=== PATIENT | male | born 1945 | race African-American/Black ===

== ENCOUNTER 2024-08-22 14:40 | Emergency (ER) | payer OTHER, SELFPAY ==
[2024-08-22 14:40] VITALS: BP 141/101; PULSE 93; RESP 14; O2SAT 100
--- NOTE | 2024-08-22 14:44 | XR_ITS ---
Examination: AP chest single view TECHNIQUE: AP portable supine chest single view Exam date and time: August 22, 2024 1512 hours INDICATIONS: New tracheostomy tube placement FINDINGS: Tracheostomy tube tip 8.8 cm above monica Left base pneumonia obscuring detail left hemidiaphragm Reduced inspiratory effort Moderate osteopenia IMPRESSION: Tracheostomy tube tip 8.8 cm above monica Significant left base pneumonia
--- NOTE | 2024-08-22 14:45 | EDNOTE_ITS ---
ED General RME/HPI General Chief complaint: Shortness of Breath/Dyspnea Stated complaint: DISLODGED TRACH TUBE Time Seen by Provider: 08/22/24 14:44 Arrival date/time: 08/22/24 14:40 CC: Bleeding around a trach during a trach dressing change HPI patient presents to the ER via EMS state they reported the patient had low oxygen saturations, EMS report bagging him for approximately 3 to 5 minutes before transporting the patient to the emergency room. EMS reports oxygen saturations at 95% or greater. Patient is nonverbal baseline. full code Per the automation control technician at the assisted care facility during trach care they were concerned that they pushed a clot , or plug down with change out of the trach. Related Data Home Medications ?Medication ?Instructions ?Recorded ?Confirmed ascorbic acid (vitamin C) 500 mg 500 mg feeding tube BID 01/05/22 04/20/24 tablet aspirin 81 mg chewable tablet 81 mg feeding tube QDAY 01/05/22 04/20/24 cetirizine 10 mg tablet 10 mg feeding tube QDAY 01/05/22 04/20/24 clopidogrel 75 mg tablet 75 mg feeding tube QDAY 01/05/22 04/20/24 ezetimibe 10 mg tablet 10 mg feeding tube QPM 01/05/22 04/20/24 fluticasone propionate 50 1 spray intranasal QDAY 01/05/22 04/20/24 mcg/actuation nasal spray,suspension glipizide 5 mg tablet 5 mg feeding tube QDAY 01/05/22 04/20/24 melatonin 3 mg tablet 5 mg feeding tube HS 01/05/22 04/20/24 multivitamin with minerals 15 ml feeding tube QDAY 01/05/22 04/20/24 sodium phosphates 19 gram-7 118 ml MN PRN PRN Constipation 01/05/22 04/20/24 gram/118 mL enema (Fleet Enema) lactulose 10 gram/15 mL oral 20 g PO QDAY 08/14/22 04/20/24 solution simethicone 80 mg chewable tablet 80 mg feeding tube BID 08/14/22 04/20/24 bisacodyl 10 mg rectal suppository 10 mg MN EVERYOTHERDAY PRN bowel 11/27/22 04/20/24 gabapentin 300 mg capsule 600 mg PO BID 11/27/22 04/20/24 amlodipine 5 mg tablet 10 mg feeding tube QDAY 01/16/23 04/20/24 ferrous sulfate 220 mg (44 mg 220 mg PO QDAY 01/16/23 04/20/24 iron)/5 mL oral solution furosemide 20 mg tablet 20 mg PO QDAY 01/16/23 04/20/24 insulin glargine 100 unit/mL 13 unit subcut QPM 01/16/23 04/20/24 subcutaneous cartridge ketotifen fumarate 0.025 % (0.035 1 drp ophthalmic (eye) BID 01/16/23 04/20/24 %) eye drops sennosides 8.8 mg/5 mL oral syrup 5 ml PO BID 01/16/23 04/20/24 (senna) sodium bicarbonate 650 mg tablet 650 mg PO QDAY 01/16/23 04/20/24 sodium zirconium cyclosilicate 5 5 g PO Q OTHER DAY 01/16/23 04/20/24 gram oral powder packet (Lokelma) Previous Rx's ?Medication ?Instructions ?Recorded meropenem 1 gram intravenous 1 g IV QDAY 2 months #25 ea 01/22/23 solution levofloxacin 750 mg tablet 750 mg feeding tube Q24H 7 days #7 08/22/24 tabs Allergies Allergy/AdvReac Type Severity Reaction Status Date / Time NYLA Inhibitors AdvReac Severe Upper Verified 04/20/24 14:37 Airway Edema ARB-Angiotensin Receptor AdvReac Severe Upper Verified 04/20/24 14:37 Antagonist Airway Edema Review of Systems Review of Systems ROS Unobtainable: unobtainable due to mental status Past Medical History Past Medical History NEUROLOGIC: Positive Neurological Disorders and Cerebrovascular Accident; Negative Dementia or Seizures CARDIAC: Positive Cardiac Disorders, Hypercholesterolemia and Hypertension; Negative Congestive Heart Failure RESPIRATORY: Positive Asthma and Pneumonia; Negative Chronic Obstructive Pulmonary Disease (COPD) GENITOURINARY: Positive Genitourinary Disorders, Renal Disease, Dialysis and Benign Prostatic Hyperplasia MUSCULOSKELETAL: Positive Musculoskeletal Disorders, Arthritis and Degenerative Joint Disease ENDOCRINE: Positive Endocrine Disorders and Diabetes Mellitus Type 2; Negative Diabetes Mellitus Type 1 HEMATOLOGIC: Negative Sickle Cell Disease OTHER HISTORY: Positive Hospitalization, Falls, Blood Transfusions and MRSA; Negative Autoimmune Disease, Down Syndrome, Developmental Delay, Shingles, Blood Transfusion Reaction, Anesthesia Reactions or Clostridium Difficile Surgical History SURGICAL: Positive Abdominal Surgery, Tracheostomy, Gastrostomy and Joint Replacement Social History SMOKING STATUS: Never smoker SUBSTANCE USE: does not use and unknown ED Exam Narrative Physical exam: [General: Obese, nonverbal flaccid (flaccid) Head normocephalic HEENT: Eyes pupils are PERRLA, nose: No rhinorrhea ears: No otorrhea mouth: [place] dry membranes Neck, obese neck, no JVD Chest equal chest rise Respiratory: Clear to auscultation, trach site has a small amount of oozing around the trach stoma, clean dry and intact no surrounding erythema exudate or mucous plug. CV: Rate rhythm is regular no murmurs rubs or clicks Abdomen is distended secondary to body habitus Skin: Intact no petechiae rash induration ulceration or crepitus Extremities: Flaccid decondition with contractures in the feet and hands. Neuro: Awake, nonresponsive baseline Course Course Course Narrative: Once patient was placed on the ventilator at 1520, peak airway pressures were noted to be in the low 20s. Chest x-ray shows trach in place no pneumonic process. After deep suctioning RT reports that the patient had a large plug that was removed peak airway pressure is decreased from 24-19 20. Will draw an ABG if acceptable patient will be discharged back to care facility. Quality Measures VTE prophylaxis Orders Category Date Time Status Saline [Insert IV] NOW Care 08/22/24 15:31 Active XR chest 1V post procedure Stat Exams 08/22/24 14:44 Completed CBC Stat Lab 08/22/24 16:18 Completed CMP [Comprehensive Metabolic Panel] Stat Lab 08/22/24 16:18 Completed VBG [Venous Blood Gas] Stat Lab 08/22/24 16:18 Completed cefTRIAXone/D5w 1gm IV premix [Rocephin/D5w 1gm IV Med 08/22/24 15:31 Discontinued premix] 50 ml IV X1 Airway suctioning ONCE RT 08/22/24 15:05 Active Mechanical [Volume Ventilator] Stat RT 08/22/24 14:10 Active Vital Signs Vital signs: Vital Signs Pulse Rate 93 08/22/24 14:40 Blood Pressure 141/101 H 08/22/24 14:40 Pulse Oximetry (%) 100 08/22/24 14:40 Fraction of Inspired Oxygen 30 08/22/24 14:40 [facility] Patient data External records reviewed:: [facility] previous records and EMS form Clinical information provided by:: EMS Social determinants that could affect healthcare access:: none Patient has the following chronic illnesses:: Tracheostomy, quadriplegia How is presenting disease/condition affected by chronic disease/condition?: e xacerbated by Evaluation data The following diagnostics were reviewed and interpreted by me:: lab results and radiology exam(s) Lab and/or radiology exams considered but not ordered:: CBC shows no anemia thrombocytopenia and leukocytes are mildly elevated 11.3 CMP shows no significant electrolyte imbalances renal impairment transaminitis or T. bili elevation. Chest x-ray as interpreted by me read by radiology shows a pneumonia. Interpretation Summary: Airway pressures have decreased after the plug/clot was suctioned from the trach, chest x-ray shows a mild pneumonia patient treated and will be discharged home on antibiotics for pneumonia. Medications Medications considered but not ordered:: None Medication administrations:: Medication Administration History Discontinued Medications Ceftriaxone Sodium/Dextrose (Rocephin/D5w 1gm Iv Premix) 50 mls @ 100 mls/hr IV X1 ONE Stop: 08/22/24 16:00 Last Infusion: 08/22/24 17:01 Dose: Infused Documented By: Admin: 08/22/24 16:27 Dose: 100 mls/hr Documented By: ELIJAH None Consultations Consultation(s) initiated? (list below): No Diagnosis Differential Diagnosis ED Complaint MDM: Pneumonia trach plug tracheostomy failure Most likely diagnosis given after review of the tests above:: Tracheostomy plug, pneumonia Admission Indicated Admission indicated?: not indicated Explain why admission is indicated or not indicated:: Stable for outpatient follow-up Admission Request Was there a request for admission?: No Disposition Plan Disposition Plan: Discharge Discharge Attestation Discharge Attestation: The patient and all family members were given an opportunity to ask questions and understood the discharge instructions. Discharge instructions specifically effects, indications for sooner follow up or return to the emergency department, and the expected course of current diagnosis. Patient condition: Stable Medical Decision Making Differential Diagnosis Differential Diagnosis: Pneumonia trach plug tracheostomy failure Lab Data 08/22/24 16:18 08/22/24 16:18 Labs: Lab Results 08/22/24 Range/Units 16:18 WBC 11.6 H (3.8-10.6) Thou/mm3 RBC 4.70 (4.50-5.90) Miln/mm3 Hgb 11.0 L (13.5-16.0) g/dL Hct 34.5 L (41.0-53.0) % MCV 73 L (80-100) fL MCH 23.4 L (25.0-35.0) pg MCHC 31.9 (31.0-37.0) g/dl RDW Std Deviation 53.8 H (35.1-43.9) fL Plt Count 367 (140-440) Thou/mm3 Neut % (Auto) 69 (37-80) % Lymph % (Auto) 16 (10-50) % Franklin % (Auto) 8 (0-12) % Eos % (Auto) 6 (0-10) % Baso % (Auto) 0 (0-2.5) % Neut # (Auto) 8.0 H (1.8-7.7) Thou/mm3 Lymph # (Auto) 1.9 (1.0-4.8) Thou/mm3 Franklin # (Auto) 1.0 H (0.0-0.8) Thou/mm3 Eos # (Auto) 0.7 H (0.0-0.5) Thou/mm3 Baso # (Auto) 0.1 (0.0-0.2) Thou/mm3 Immature Gran # (Auto) 0.03 H (0.00-0.00) Thou/mm3 Absolute Nucleated RBC 0.00 (0.00-0.00) Thou/mm3 Immature Gran % 0 (0-0) % Nucleated RBC % 0 (0) /100 WBC VBG pH 7.47 (7.33-7.66) VBG pCO2 27 L (36-56) mmHg VBG pO2 47 (15-58) mmHg VBG O2 Sat (Cameron) 86 L (96-97) % VBG Base Excess -3 (-3-3) Sodium 132 L (136-145) mMol/L Potassium 4.2 (3.4-5.1) mMol/L Chloride 102 (98-107) mMol/L Carbon Dioxide 23.0 (20.0-31.0) mMol/L Anion Gap 7 (7-16) BUN 19 (9-23) mg/dL Creatinine 0.8 (0.6-1.3) mg/dL Estim Creat Clear Calc 106.0 (>60) mL/min eGFR > 60 (60 - ) See Note BUN/Creatinine Ratio 24 H (12-20) Ratio Glucose 184 H (74-106) mg/dL Calculated Osmolality 271 L (275-295) Calcium 10.1 (8.3-10.6) mg/dL Corrected Calcium 10.1 (8.5-10.1) mg/dL Total Bilirubin 0.4 (0.3-1.2) mg/dL AST 18 (0-34) U/L ALT 14 (10-49) U/L Alkaline Phosphatase 152 H (46-116) U/L Total Protein 9.1 H (5.7-8.2) gm/dL Albumin 4.3 (3.4-4.8) gm/dL Globulin 4.8 H (2.3-3.5) gm/dL Albumin/Globulin Ratio 0.9 L (1.2-2.2) Discharge Plan Plan Patient Disposition: HOME (Self Care) Patient condition on transfer: Stable Prescriptions/Referrals Prescriptions/Med Rec: New levofloxacin 750 mg tablet 750 mg feeding tube Q24H 7 Days Qty: 7 0RF No Action cetirizine 10 mg Tablet 10 mg feeding tube QDAY multivitamin with minerals Liquid 15 ml feeding tube QDAY melatonin 3 mg Tablet 5 mg feeding tube HS clopidogrel 75 mg Tablet 75 mg feeding tube QDAY ascorbic acid (vitamin C) 500 mg Tablet 500 mg feeding tube BID Fleet Enema 19-7 gram/118 mL Enema 118 ml MN PRN PRN (Reason: Constipation) aspirin 81 mg Tablet,Chewable 81 mg feeding tube QDAY fluticasone propionate 50 mcg/actuation [place],Suspension 1 spray INTRANASAL QDAY glipizide 5 mg Tablet 5 mg feeding tube QDAY ezetimibe 10 mg Tablet 10 mg feeding tube QPM simethicone 80 mg Tablet,Chewable 80 mg feeding tube BID lactulose 10 gram/15 mL Solution 20 g PO QDAY bisacodyl 10 mg Suppository 10 mg MN EVERYOTHERDAY PRN (Reason: bowel ) gabapentin 300 mg Capsule 600 mg PO BID amlodipine 5 mg Tablet 10 mg feeding tube QDAY furosemide 20 mg Tablet 20 mg PO QDAY ferrous sulfate 220 mg (44 mg iron)/5 mL Solution 220 mg PO QDAY ketotifen fumarate 0.025 % (0.035 %) Drops 1 drp OPHTHALMIC (EYE) BID Rx Instructions: administer at least 8 hours apart sennosides [senna] 8.8 mg/5 mL Syrup 5 ml PO BID sodium bicarbonate 650 mg Tablet 650 mg PO QDAY insulin glargine 100 unit/mL Cartridge 13 unit SUBCUT QPM Lokelma 5 gram Powder In Packet 5 g PO Q OTHER DAY meropenem 1 gram recon soln 1 g IV QDAY MDD 1 gram 60 Days Qty: 25 2RF Referrals: Alexa Heredia MD [Primary Care Provider] - In 1 week Problem List Clinical Impression: Pneumonia, Tracheostomy care Patient/Caregiver Discharge Instructions Education Materials: ED Pneumonia (Adult) Print Language: Belarusian Stand Alone Forms: Maria Isabel Award Info., Patient Portal Info Letter PA/RADIO REPAIRER DOMESTIC Supervising Physician PA/RADIO REPAIRER DOMESTIC Supervising Physician: Cornelio Ruff ENP
[2024-08-22 14:54] VITALS: BP 146/94; PULSE 82; O2SAT 99
[2024-08-22 15:06] VITALS: BMI 31.8
--- NOTE | 2024-08-22 15:06 | PC.NURSE ---
Pt connected to mechanical ventilator via pt's tracheostomy tube upon arrival by RT.
[2024-08-22 16:19] VITALS: BP 151/95; PULSE 90; RESP 22; TEMP 36.7; O2SAT 100
--- NOTE | 2024-08-22 16:25 | PC.NURSE ---
per Cornelio ADJUNCT PSYCHOLOGY INSTRUCTOR, no blood cultures needed, ok to give rocephin ivpb.
[2024-08-22] MEDS: cefTRIAXone/D5w 1gm IV premix 50 ML IV (16:27)
[2024-08-22 16:28] LABS: Base Excess, Venous -3 (-3-3); O2 Saturation, Venous 86 % (96-97); PCO2, Venous 27 mmHg (36-56); PO2, Venous 47 mmHg (15-58); pH, Venous 7.47 (7.33-7.66)
[2024-08-22 16:31] LABS: Basophils # (Auto) 0.1 Thou/mm3 (0.0-0.2); Basophils % (Auto) 0 % (0-2.5); Eosinophils # (Auto) 0.7 Thou/mm3 (0.0-0.5); Eosinophils % (Auto) 6 % (0-10); Hematocrit 34.5 % (41.0-53.0); Immature Granulocytes % (Auto) 0 % (0-0); Immature Granulocytes Auto 0.03 Thou/mm3 (0.00-0.00); Lymphocytes # (Auto) 1.9 Thou/mm3 (1.0-4.8); Lymphocytes % (Auto) 16 % (10-50); Mean Corpuscular HGB Conc 31.9 g/dl (31.0-37.0); Mean Corpuscular Hemoglobin 23.4 pg (25.0-35.0); Mean Corpuscular Volume 73 fL (80-100); Monocytes % (Auto) 8 % (0-12); Neutrophils % (Auto) 69 % (37-80); Nucleated Red Blood Cell % 0 /100 WBC (0); Platelet Count 367 Thou/mm3 (140-440); RDW Standard Deviation 53.8 fL (35.1-43.9); White Blood Count 11.6 Thou/mm3 (3.8-10.6)
[2024-08-22 16:56] LABS: Alanine Aminotransferase 14 U/L (10-49); Albumin, Serum 4.3 gm/dL (3.4-4.8); Albumin/Globulin Ratio 0.9 (1.2-2.2); Alkaline Phosphatase 152 U/L (46-116); Anion Gap 7 (7-16); Aspartate Amino Transferase 18 U/L (0-34); BUN/Creatinine Ratio 24 Ratio (12-20); Bilirubin,Total 0.4 mg/dL (0.3-1.2); Blood Urea Nitrogen 19 mg/dL (9-23); Calcium 10.1 mg/dL (8.3-10.6); Calcium (Corrected) 10.1 mg/dL (8.5-10.1); Chloride 102 mMol/L (98-107); Creatinine (Component) 0.8 mg/dL (0.6-1.3); Globulin 4.8 gm/dL (2.3-3.5); Glucose 184 mg/dL (74-106); Osmolality,Calculated 271 (275-295); Potassium 4.2 mMol/L (3.4-5.1); Sodium 132 mMol/L (136-145); Total Protein 9.1 gm/dL (5.7-8.2); eGFR > 60 See Note
[2024-08-22 17:00] VITALS: BP 155/97; PULSE 90; RESP 17; O2SAT 100
[2024-08-22 18:00] VITALS: BP 138/83; PULSE 90; RESP 20; O2SAT 100
[2024-08-22 18:12] VITALS: BP 136/83; PULSE 93; RESP 17; O2SAT 100
--- NOTE | 2024-08-22 18:13 | PC.RT ---
rollins, at bedside, is asking for discharge papers to include more frequent sxn' due to pt having mucus plus. and is asking for a copy of all discharge paperwork
--- NOTE | 2024-08-22 18:14 | PC.CC ---
AEROSPACE ASSEMBLER CC engaged to arrange transport for pt back to [facility]. PCS and face sheet uploaded to [facility]. [id number] to Dispatch, transport ETA set for 2099.
== END 2024-08-22 19:16 | disposition home or self-care (01) ==
PROVIDERS: Registered Nurse General Practice; Emergency Provider Emergency Medicine; PCP Hospitalist; Referring Provider Emergency Medicine
DX: J95.03 Malfunction of tracheostomy stoma (principal); J18.9 Pneumonia, unspecified organism
CPT/HCPCS: 36415; 36600; 80053; 82803; 85025; 94002; 96365; 99284; J0696

== ENCOUNTER → 2025-02-22 | Outpatient (CLI) | payer MEDICAID, SELFPAY | END | disposition home or self-care (01) | PROVIDERS: PCP Hospitalist; Referring Provider Hospitalist; Visit Provider Hospitalist | DX: Z01.89 Encounter for other specified special examinations (principal) ==

== ENCOUNTER → 2025-02-22 | Outpatient (CLI) | payer MEDICAID, SELFPAY ==
[2025-02-22 18:53] LABS: Collection Type, Urine Voided; Squamous Epithelial Cell,Urine 0 /hpf (0-5)
[2025-02-22 19:05] LABS: Basophils % (Auto) 0 % (0-2.5); Eosinophils # (Auto) 0.6 Thou/mm3 (0.0-0.5); Eosinophils % (Auto) 6 % (0-10); Hematocrit 31.6 % (41.0-53.0); Hemoglobin 10.2 g/dL (13.5-16.0); Immature Granulocytes % (Auto) 0 % (0-0); Immature Granulocytes Auto 0.03 Thou/mm3 (0.00-0.00); Lymphocytes % (Auto) 22 % (10-50); Mean Corpuscular HGB Conc 32.3 g/dl (31.0-37.0); Mean Corpuscular Hemoglobin 23.7 pg (25.0-35.0); Mean Corpuscular Volume 74 fL (80-100); Monocytes # (Auto) 0.9 Thou/mm3 (0.0-0.8); Monocytes % (Auto) 9 % (0-12); Neutrophils # (Auto) 5.6 Thou/mm3 (1.8-7.7); Neutrophils % (Auto) 62 % (37-80); Nucleated Red Blood Cell % 0 /100 WBC (0); Platelet Count 332 Thou/mm3 (140-440); RDW Standard Deviation 47.9 fL (35.1-43.9)
[2025-02-22 19:12] LABS: Bacteria,Urine 3+; Bilirubin,Urine Negative (Negative); Blood,Urine 3+ (Negative); Color,Urine Yellow (Lt Yel-Yel); Glucose, Urine Negative (Negative); Hyaline Casts,Urine 1 /hpf (0-1); Ketones,Urine Negative (Negative); Leukocyte Esterase,Urine Positive (Negative); Nitrite,Urine Negative (Negative); PH,Urine 5.5 (5.0-7.0); Protein,Urine 1+ (Neg - Trace); RBC,Urine 510 /hpf (0-3); Specific Gravity,Urine 1.017 (1.001-1.035); Urobilinogen,Urine Negative mg/dL (0.0-1.0); WBC,Urine 1093 /hpf (0-5)
[2025-02-22 19:15] LABS: Clarity,Urine Turbid (Clear/Hazy); Culture Indicated,Urine Yes
[2025-02-22 19:18] LABS: Alanine Aminotransferase 18 U/L (10-49); Albumin, Serum 3.5 gm/dL (3.4-4.8); Albumin/Globulin Ratio 0.9 (1.2-2.2); Alkaline Phosphatase 139 U/L (46-116); Anion Gap 10 (7-16); Aspartate Amino Transferase 36 U/L (0-34); BUN/Creatinine Ratio 36 Ratio (12-20); Bilirubin,Total 0.3 mg/dL (0.3-1.2); Blood Urea Nitrogen 25 mg/dL (9-23); Calcium 8.9 mg/dL (8.3-10.6); Calcium (Corrected) 9.3 mg/dL (8.5-10.1); Carbon Dioxide 22.8 mMol/L (20.0-31.0); Chloride 102 mMol/L (98-107); Creatinine (Component) 0.7 mg/dL (0.6-1.3); Globulin 3.7 gm/dL (2.3-3.5); Glucose 178 mg/dL (74-106); Osmolality,Calculated 278 (275-295); Potassium 4.6 mMol/L (3.4-5.1); Sodium 135 mMol/L (136-145); Total Protein 7.2 gm/dL (5.7-8.2); eGFR > 60 See Note
== END | disposition home or self-care (01) ==
PROVIDERS: PCP Hospitalist; Referring Provider Hospitalist; Visit Provider Hospitalist
DX: N40.0 Benign prostatic hyperplasia without lower urinary tract symptoms (principal); E08.40 Diabetes mellitus due to underlying condition with diabetic neuropathy, unspecified; Z99.11 Dependence on respirator [ventilator] status
CPT/HCPCS: 36415; 80053; 81001; 85025; 87070; 87077; 87086; 87186; 87205

== ENCOUNTER 2025-04-26 20:54 | Inpatient (IN) | payer OTHER, SELFPAY ==
[2025-04-26] VITALS (8 sets, daily range): BP systolic 114–128; BP diastolic 55–75; PULSE 120–123; RESP 21–38; TEMP 38.3; O2SAT 93–100; BMI 40.1
--- NOTE | 2025-04-26 21:15 | PC.NURSE ---
PT JACQUIE FROM [facility]. ON ARRIVAL PT WAS TRACHED AND HAS A PEG TUBE. PER REPORT PT IS HERE FOR SEPSIS RULE OUT . PT HAD A TEMP OF 103 04/25/2025 AND A TEMP OF 100 04/26/2025. PER REPORT PT IS NORMALLY A [employer] OF 6
--- NOTE | 2025-04-26 21:16 | PD.EDFEVER ---
ED Fever RME/HPI General Chief Complaint: Fever Stated Complaint: RULE OUT SEPSIS Time Seen by Provider: 04/26/25 21:10 Arrival date/time: 04/26/25 20:54 RME / HPI RME / HPI Narrative: See MDM for Dr. Nielson's HPI Documentation. Related Data Home Medications ?Medication ?Instructions ?Recorded ?Confirmed ascorbic acid (vitamin C) 500 mg 500 mg feeding tube BID 01/05/22 04/27/25 tablet aspirin 81 mg chewable tablet 81 mg feeding tube QDAY 01/05/22 04/27/25 cetirizine 10 mg tablet 10 mg feeding tube QDAY 01/05/22 04/27/25 clopidogrel 75 mg tablet 75 mg feeding tube QDAY 01/05/22 04/27/25 ezetimibe 10 mg tablet 10 mg feeding tube QPM 01/05/22 04/27/25 fluticasone propionate 50 1 spray intranasal QDAY 01/05/22 04/27/25 mcg/actuation nasal spray,suspension glipizide 5 mg tablet 5 mg feeding tube QDAY 01/05/22 04/27/25 melatonin 3 mg tablet 5 mg feeding tube HS 01/05/22 04/27/25 multivitamin with minerals 15 ml feeding tube QDAY 01/05/22 04/27/25 sodium phosphates 19 gram-7 118 ml CO PRN PRN Constipation 01/05/22 04/27/25 gram/118 mL enema (Fleet Enema) lactulose 10 gram/15 mL oral 20 g PO QDAY 08/14/22 04/27/25 solution simethicone 80 mg chewable tablet 80 mg feeding tube BID 08/14/22 04/27/25 bisacodyl 10 mg rectal suppository 10 mg CO EVERYOTHERDAY PRN bowel 11/27/22 04/27/25 gabapentin 300 mg capsule 600 mg PO BID 11/27/22 04/27/25 amlodipine 5 mg tablet 10 mg feeding tube QDAY 01/16/23 04/27/25 ferrous sulfate 220 mg (44 mg 220 mg PO QDAY 01/16/23 04/27/25 iron)/5 mL oral solution furosemide 20 mg tablet 20 mg PO QDAY 01/16/23 04/27/25 insulin glargine 100 unit/mL 25 unit subcut QPM 01/16/23 04/27/25 subcutaneous cartridge ketotifen fumarate 0.025 % (0.035 1 drp ophthalmic (eye) BID 01/16/23 04/27/25 %) eye drops sennosides 8.8 mg/5 mL oral syrup 5 ml PO BID 01/16/23 04/27/25 (senna) sodium bicarbonate 650 mg tablet 650 mg PO QDAY 01/16/23 04/27/25 sodium zirconium cyclosilicate 5 5 g PO Q OTHER DAY 01/16/23 04/27/25 gram oral powder packet (Lokelma) Previous Rx's ?Medication ?Instructions ?Recorded meropenem 1 gram intravenous 1 g IV QDAY 2 months #25 ea 01/22/23 solution Allergies Allergy/AdvReac Type Severity Reaction Status Date / Time NYLA Inhibitors AdvReac Severe Upper Verified 04/20/24 14:37 Airway Edema ARB-Angiotensin Receptor AdvReac Severe Upper Verified 04/20/24 14:37 Antagonist Airway Edema Review of Systems Review of Systems Systems Reviewed: All systems reviewed, normal except as documented Past Medical History Past Medical History NEUROLOGIC: Positive Neurological Disorders and Cerebrovascular Accident CARDIAC: Positive Cardiac Disorders, Hypercholesterolemia, Edema and Hypertension RESPIRATORY: Positive Asthma and Pneumonia GENITOURINARY: Positive Genitourinary Disorders, Renal Disease, Dialysis and Benign Prostatic Hyperplasia MUSCULOSKELETAL: Positive Musculoskeletal Disorders, Arthritis and Degenerative Joint Disease ENDOCRINE: Positive Endocrine Disorders and Diabetes Mellitus Type 2 OTHER HISTORY: Positive Hospitalization, Falls, Blood Transfusions and MRSA Surgical History SURGICAL: Positive Abdominal Surgery, Tracheostomy, Gastrostomy and Joint Replacement Physical Exam Narrative Physical exam: See MDM for Dr. Nielson's Physical Exam Documentation. ED Exam Narrative Physical exam: See MDM for Dr. Nielson's Physical Exam Documentation. Course Course Course Narrative: CXR was ordered for determining the etiology of shortness of breath. Quality Measures none Orders Category Date Time Status Bedside COVID-19 Antigen Test NOW Care 04/26/25 21:15 Active Bedside Influenza A&B Antigen Test NOW Care 04/26/25 21:15 Completed COVID-19 Screening Questionnaire NOW Care 04/27/25 01:14 Active Decision to Admit X1 Care 04/27/25 01:14 Completed EKG (ED ONLY) *Do not use* NOW Care 04/26/25 21:18 Completed Abbott [Urinary Catheter] QS Care 04/26/25 21:13 Active EKG (ED Only) Stat Exams 04/26/25 21:18 Ordered XR chest 1V post procedure Stat Exams 04/26/25 21:18 Completed ABG [Arterial Blood Gas] Stat Lab 04/27/25 02:12 Completed BNP [B-Type Natriuretic Peptide] Stat Lab 04/26/25 22:30 Completed Bilirubin,Direct Stat Lab 04/26/25 22:30 Completed Blood Culture (Lab) Stat Lab 04/26/25 00:39 Results CBC Stat Lab 04/26/25 22:30 Completed CMP [Comprehensive Metabolic Panel] Stat Lab 04/26/25 22:30 Completed CRP [C-Reactive Protein] Stat Lab 04/26/25 22:30 Completed D-Dimer Stat Lab 04/26/25 22:30 Completed ESR [Sed Rate (ESR)] Stat Lab 04/26/25 22:30 Completed Lactate (Lactic Acid) Stat Lab 04/26/25 22:30 Completed Magnesium Stat Lab 04/26/25 22:30 Completed Procalcitonin Stat Lab 04/26/25 22:30 Completed Sputum Culture and Gram Stain Stat Lab 04/27/25 01:56 Results TSH [Thyroid Stimulating Hormone] Stat Lab 04/26/25 22:30 Completed Troponin I Stat Lab 04/26/25 22:30 Completed UA, C/S IF [Urinalysis, C/S if Indicated] Stat Lab 04/26/25 20:11 Completed Urine Culture Stat Lab 04/26/25 20:11 Completed c diff [Clostridium Difficile PCR] Stat Lab 04/27/25 01:21 Completed Acetaminophen Ivpb [Ofirmev Inj] Med 04/26/25 21:59 Discontinued 1,000 mg in 100 ml IV Q6HR Cefepime Inj [Maxipime Inj] 2 gm Med 04/26/25 21:15 Discontinued SODIUM CHLORIDE 0.9% (Popper) [Ns 0.9% (P)] 50 ml IV X1 Ketorolac Inj [Toradol Inj] Med 04/26/25 21:58 Discontinued 30 mg IVP X1 ONE Magnesium Sulfate 2 GM Ivpb [Magnesium Sulfate Ivpb] Med 04/27/25 00:36 Discontinued 2 gm in 50 ml IV X1 Sodium Chloride 0.9% 1000 ml [Ns] 1,000 ml Med 04/27/25 00:10 Discontinued IV 100 mls/hr Sodium Chloride 0.9% 1000 ml [Ns] 1,000 ml Med 04/26/25 21:15 Discontinued IV 999 mls/hr Sodium Chloride 0.9% 1000 ml [Ns] 1,000 ml Med 04/26/25 21:16 Discontinued IV 999 mls/hr Sodium Chloride 0.9% 1000 ml [Ns] 1,000 ml Med 04/26/25 21:17 Discontinued IV 999 mls/hr Sodium Chloride Rt Jolene 10% [NS Rt Jolene 10%] Med 04/27/25 01:40 Discontinued 5 ml INH X1 ONE Vancomycin Inj 2,000 mg Med 04/26/25 21:15 Discontinued Sodium Chloride 0.9% 500 ml [Ns] 500 ml IV X1 Sputum Induction PRN RT 04/27/25 01:45 Ordered Volume Ventilator Stat RT 04/26/25 21:30 Active Vital Signs Vital signs: Vital Signs Pulse Rate 123 H 04/26/25 21:01 Respiratory Rate 29 H 04/26/25 21:01 Blood Pressure 128/58 L 04/26/25 21:01 Pulse Oximetry (%) 100 04/26/25 21:01 PROCEDURES: Arterial Line Time Out Performed: Yes Size (Gauge): 20 Technique Used: guide wire technique Post-Procedure: line sutured into place and dry sterile dressing placed Patient Tolerated Procedure: well and no complications Complications: none Site: right and femoral Central Line Placement Left Femoral: Additional Comments: Left femoral central line successfully placed by resident physician, Dr. Austyn Borrego. Refer to residents procedure note for full procedure details. Fever MDM Narrative MDM Narrative:: Scribe Attestation: IMaribell, am scribing for and in the presence of Dr. Nielson. This section includes all my notes and documentations, including HPI, PE, and ED course. Rolan Nielson MD HPI: 80 y/o male with Hx of Type II DM, HTN, Renal Disease with Dialysis, CVA and Tracheostomy BIBA from [facility] by the [facility] present with fever x yesterday. Nursing facility is requesting a sepsis R/O. ROS: All negative except as documented in HPI. Physical Exam: General: In comatose state due to chronic encephalopathy. Fever noted. Eyes: EOMI. PERRL. ENT: No nasal congestion. Neck: Supple. No JVD. Heart: RRR. Sinus tachycardia noted. Lungs: No respiratory distress. Good air movement with rales. Abdomen: Soft and nontender. Legs: No clubbing, cyanosis, edema. Skin: Warm and dry. Neuro: In comatose state due to chronic encephalopathy. I reviewed EMS and custodial notes. I reviewed all diagnostic test results: My interpretation of the EKG is: Sinus tachycardia (123 bpm) with nonspecific ST-T changes. My interpretation of the chest x-ray is infiltrates. Blood tests remarkable for lactic acid 2.2, Na 117, Cr 1.5, LFT elevation, WBC 28.6, Hg 8.2, D-dimer 3820, CRP > 10, and Procalcitonin 2.28. ABG showed pH 7.3, pCO2 41, pHCO3 20. UA remarkable for positive leukocyte esterase, 1847 RBC, 1892 WBC. Covid/Influenza negative. At this point, diagnoses include: Sepsis, Hyponatremia, Pneumonia, UTI (urinary tract infection), Severe anemia, LFT elevation, Hyperglycemia, Elevated d-dimer Treatment here included: IVF Cefepim 2 gram IV and Vancomycin 2 gram IV Tylenol 1000 mg IV and Toradol 30 mg IV Levophed drip Arterial line placement by me (see procedure note) Central line placement by resident I discussed the case with our ICU service. About the presentation and exam and diagnostics and treatments here. And need of further care in the hospital. Will accept the patient. Rolan Nielson MD Patient data External records reviewed:: [facility] previous records (Reviewed prior ED records from 08/22/24. Patient was seen for Pneumonia.), EMS form and [facility] records Clinical information provided by:: EMS Social determinants that could affect healthcare access:: housing (SNF) Patient has the following chronic illnesses:: Hypercholesterolemia, Edema, Hypertension, Asthma, Renal Disease, Dialysis, Benign Prostatic Hyperplasia, Arthritis, Degenerative Joint Disease, Diabetes Mellitus Type 2, MRSA How is presenting disease/condition affected by chronic disease/condition?: exacerbated by Evaluation data The following diagnostics were reviewed and interpreted by me:: lab results, radiology exam(s) and EKG tracing(s) (My interpretation of the EKG is: Sinus tachycardia (123 bpm) with nonspecific ST-T changes. Rolan Nielson MD) Lab and/or radiology exams considered but not ordered:: None Interpretation Summary: tion of the chest x-ray is infiltrates. Blood tests remarkable for lactic acid 2.2, Na 117, Cr 1.5, LFT elevation, WBC 28.6, Hg 8.2, D-dimer 3820, CRP > 10, and Procalcitonin 2.28. ABG showed pH 7.3, pCO2 41, pHCO3 20. UA remarkable for positive leukocyte esterase, 1847 RBC, 1892 WBC. Covid/Influenza negative. Medications / Prescriptions Medications or Prescriptions considered but not ordered:: None Medication administrations:: Medication Administration History Acetaminophen (Acetaminophen 325 Mg Tablet) 650 mg PO Q4HR PRN PRN Reason: PAIN SCALE 1-3 (mild Stop: 05/27/25 03:10 Last Admin: 04/28/25 07:48 Dose: 650 mg Documented By: Admin: 04/27/25 18:23 Dose: 650 mg Documented By: MG Acetaminophen (Acetaminophen Supp 650 Mg Supp) 650 mg CO Q4HR PRN PRN Reason: Pain Scale 1-3 and temp >100.4 Stop: 05/27/25 03:10 Aspirin (Aspirin 81 Mg Chew) 81 mg GT QDAY [facility] Stop: 05/27/25 08:59 Last Admin: 04/28/25 09:02 Dose: 81 mg Documented By: Admin: 04/27/25 09:10 Dose: 81 mg Documented By: BERNADETTE Citric Acid/Sodium Citrate (Citric Acid/Sodium Citr 15 Ml Udc (Bicitra)) 30 ml PO BID [facility] Stop: 05/28/25 09:59 Last Admin: 04/28/25 10:05 Dose: 30 ml Documented By: BERNADETTE Dextrose (Dextrose 50%-Water Inj 50 Ml Syringe) 25 ml IV Q15MIN PRN PRN Reason: BG 50-70 responsive npo pt Stop: 05/27/25 03:36 Dextrose (Dextrose 50%-Water Inj 50 Ml Syringe) 50 ml IV Q15MIN PRN PRN Reason: BG <50 OR BG <70 & pt unresponsive Stop: 05/27/25 03:36 Glucagon (Glucagon Inj 1 Mg Vial) 1 mg IM Q15MIN PRN PRN Reason: BG <70, and no IV access Heparin Sodium (Porcine) (Heparin Sod Inj 5000 Unit/Ml Vial) 5,000 unit SC Q8HR [facility] Stop: 05/11/25 05:59 Last Admin: 04/28/25 13:51 Dose: 5,000 unit Documented By: BERNADETTE Co-signed By: Admin: 04/28/25 05:01 Dose: 5,000 unit Documented By: Co-signed By: SHANA Admin: 04/27/25 21:02 Dose: 5,000 unit Documented By: Co-signed By: SHANA Admin: 04/27/25 13:37 Dose: 5,000 unit Documented By: Co-signed By: BERNADETTE Admin: 04/27/25 12:20 Dose: Not Given Documented By: BERNADETTE Non-Admin Reason: Not In Room Vancomycin HCl (Vancomycin/Water 1gm Ivpb) 200 mls @ 120 mls/hr IV BID@1000,2200 IMANI; Protocol Stop: 05/04/25 21:59 Last Admin: 04/28/25 10:33 Dose: 120 mls/hr Documented By: Infusion: 04/27/25 22:42 Dose: Infused Documented By: Admin: 04/27/25 21:01 Dose: 120 mls/hr Documented By: Piperacillin/Tazobactam/Dextrose (Zosyn) 3.375 gm in 50 mls @ 12.5 mls/hr IV Q8HR IMANI Stop: 05/04/25 13:59 Last Admin: 04/28/25 13:50 Dose: 12.5 mls/hr Documented By: Infusion: 04/28/25 09:01 Dose: Infused Documented By: Admin: 04/28/25 05:01 Dose: 12.5 mls/hr Documented By: Infusion: 04/28/25 01:02 Dose: Infused Documented By: Admin: 04/27/25 21:02 Dose: 12.5 mls/hr Documented By: Infusion: 04/27/25 17:37 Dose: Infused Documented By: Admin: 04/27/25 13:37 Dose: 12.5 mls/hr Documented By: Norepinephrine/Dextrose (Levophed In D5w 8mg/250ml) 8 mg in 250 mls @ 11.522 mls/hr IV .[id number] PRN; Protocol PRN Reason: PER PROTOCOL Stop: 05/28/25 12:42 Last Titration: 04/28/25 18:00 Dose: 0.03 mcg/kg/min, 6.913 mls/hr Documented By: Titration: 04/28/25 17:00 Dose: 0.03 mcg/kg/min, 6.913 mls/hr Documented By: Titration: 04/28/25 16:00 Dose: 0.03 mcg/kg/min, 6.913 mls/hr Documented By: Titration: 04/28/25 15:21 Dose: 0.03 mcg/kg/min, 6.913 mls/hr Documented By: Titration: 04/28/25 15:00 Dose: 0.01 mcg/kg/min, 2.304 mls/hr Documented By: Titration: 04/28/25 14:30 Dose: 0.03 mcg/kg/min, 6.913 mls/hr Documented By: Titration: 04/28/25 14:00 Dose: 0.05 mcg/kg/min, 11.522 mls/hr Documented By: Titration: 04/28/25 13:00 Dose: 0.05 mcg/kg/min, 11.522 mls/hr Documented By: Admin: 04/28/25 12:52 Dose: 0.05 mcg/kg/min, 11.522 mls/hr Documented By: BERNADETTE Albumin Human (Albuminar-25 Ivpb) 25 gm in 100 mls @ 100 mls/hr IV BID IMANI Stop: 05/01/25 14:29 Last Admin: 04/28/25 14:52 Dose: 100 mls/hr Documented By: BERNADETTE Insulin Degludec (Insulin Degludec 5 Unit/0.05 Ml (Per 5 Units)) 13 unit SC HS IMANI Stop: 05/27/25 20:59 Last Admin: 04/27/25 20:23 Dose: 13 unit Documented By: Co-signed By: SHANA Insulin Human Lispro (Insulin Lispro (Admelog) 1 Unit/0.01 Ml Unit) 0 unit SC Q6HR IMANI; Protocol Stop: 05/27/25 05:59 Last Admin: 04/28/25 17:37 Dose: 2 unit Documented By: BERNADETTE Co-signed By: MG Admin: 04/28/25 12:26 Dose: Not Given Documented By: BERNADETTE Non-Admin Reason: Per Protocol Admin: 04/28/25 06:06 Dose: 1 unit Documented By: Co-signed By: CHRIS Admin: 04/28/25 00:05 Dose: 2 unit Documented By: Co-signed By: CHRIS Admin: 04/27/25 18:25 Dose: 2 unit Documented By: Co-signed By: KOJO Admin: 04/27/25 13:54 Dose: 3 unit Documented By: Co-signed By: brittney Admin: 04/27/25 12:20 Dose: Not Given Documented By: BERNADETTE Non-Admin Reason: Not In Room Magnesium Hydroxide (Milk Of Magnesia Susp 30 Ml Udc) 30 ml PO QDAY PRN PRN Reason: CONSTIPATION Stop: 05/27/25 03:10 Midodrine (Midodrine 5 Mg Tablet) 5 mg PO TID IMANI Stop: 05/28/25 13:59 Last Admin: 04/28/25 13:50 Dose: 5 mg Documented By: BERNADETTE Mupirocin (Mupirocin Oint 2% 15 Gm Tube) 0 gm TOP TID IMANI Stop: 05/05/25 21:59 Oxycodone/Acetaminophen (Oxycodone/Apap 5/325 Tablet) 1 tab GT Q6HR PRN PRN Reason: Pain 7-10 Stop: 05/02/25 18:28 Pharmacy Consult (Vancomycin Pharmacy To Dose 1 Each Each) 1 each IV QDAY PRN PRN Reason: PROTOCOL Stop: 05/27/25 08:59 Discontinued Medications Epoetin Marc (Epoetin Marc-Epbx Inj 10,000 Unit/Ml Vial (Non-Esrd)) 10,000 unit SC X1 ONE Stop: 04/28/25 09:49 Last Admin: 04/28/25 11:26 Dose: 10,000 unit Documented By: BERNADETTE Furosemide (Furosemide Inj 10 Mg/Ml 4ml Vial) 40 mg IVP X1 ONE Stop: 04/28/25 12:14 Last Admin: 04/28/25 14:52 Dose: 40 mg Documented By: BERNADETTE Comments: given late to coincide with blood transfusion. Hydromorphone HCl (Hydromorphone Inj 2 Mg/Ml Vial) 0.5 mg IVP X1 ONE Stop: 04/28/25 10:06 Last Admin: 04/28/25 10:27 Dose: 0.5 mg Documented By: BERNADETTE Cefepime HCl 2 gm/ Sodium (Chloride) 50 mls @ 100 mls/hr IV X1 ONE Stop: 04/26/25 21:44 Last Infusion: 04/27/25 02:51 Dose: Infused Documented By: Admin: 04/27/25 02:02 Dose: 100 mls/hr Documented By: [email or web address] Sodium Chloride (Ns) 1,000 mls @ 999 mls/hr IV .Q1H1M ONE Stop: 04/26/25 22:15 Last Admin: 04/27/25 05:44 Dose: Not Given Documented By: DEVI Non-Admin Reason: Discontinued Vancomycin HCl 2,000 mg/ (Sodium Chloride) 500 mls @ 150 mls/hr IV X1 ONE Stop: 04/27/25 00:34 Last Infusion: 04/27/25 05:45 Dose: Infused Documented By: Admin: 04/27/25 02:10 Dose: 150 mls/hr Documented By: [email or web address] Sodium Chloride (Ns) 1,000 mls @ 999 mls/hr IV .Q1H1M ONE Stop: 04/26/25 22:16 Last Admin: 04/27/25 05:44 Dose: Not Given Documented By: DEVI Non-Admin Reason: Discontinued Sodium Chloride (Ns) 1,000 mls @ 999 mls/hr IV .Q1H1M ONE Stop: 04/26/25 22:17 Last Admin: 04/27/25 05:45 Dose: Not Given Documented By: DEVI Non-Admin Reason: Discontinued Acetaminophen (Ofirmev Inj) 1,000 mg in 100 mls @ 250 mls/hr IV Q6HR IMANI Stop: 04/27/25 18:23 Last Infusion: 04/27/25 02:50 Dose: Infused Documented By: Admin: 04/27/25 02:13 Dose: 250 mls/hr Documented By: JAMISON Sodium Chloride (Ns) 1,000 mls @ 100 mls/hr IV .Q10H ONE Stop: 04/27/25 10:09 Last Admin: 04/27/25 02:13 Dose: 100 mls/hr Documented By: JAMISON Magnesium Sulfate (Magnesium Sulfate Ivpb) 2 gm in 50 mls @ 25 mls/hr IV X1 ONE Stop: 04/27/25 02:35 Last Infusion: 04/27/25 05:45 Dose: Infused Documented By: Admin: 04/27/25 02:14 Dose: 25 mls/hr Documented By: [email or web address] Norepinephrine Bitartrate (Levophed In Ns 16mg/250ml) 16 mg in 250 mls @ 5.953 mls/hr IV .Q24H PRN; Protocol PRN Reason: PER PROTOCOL Stop: 05/27/25 02:39 Last Titration: 04/27/25 21:30 Dose: 0 mcg/kg/min, 0 mls/hr Documented By: Titration: 04/27/25 21:00 Dose: 0.01 mcg/kg/min, 1.191 mls/hr Documented By: Titration: 04/27/25 20:00 Dose: 0.01 mcg/kg/min, 1.191 mls/hr Documented By: Titration: 04/27/25 19:00 Dose: 0.01 mcg/kg/min, 1.191 mls/hr Documented By: Titration: 04/27/25 18:00 Dose: 0.01 mcg/kg/min, 1.191 mls/hr Documented By: Titration: 04/27/25 17:00 Dose: 0.01 mcg/kg/min, 1.191 mls/hr Documented By: Titration: 04/27/25 16:00 Dose: 0 mcg/kg/min, 0 mls/hr Documented By: Titration: 04/27/25 15:00 Dose: 0.01 mcg/kg/min, 1.191 mls/hr Documented By: Titration: 04/27/25 14:05 Dose: 0.03 mcg/kg/min, 3.572 mls/hr Documented By: Titration: 04/27/25 14:00 Dose: 0.01 mcg/kg/min, 1.191 mls/hr Documented By: Titration: 04/27/25 13:30 Dose: 0.03 mcg/kg/min, 3.572 mls/hr Documented By: Titration: 04/27/25 13:00 Dose: 0.05 mcg/kg/min, 5.953 mls/hr Documented By: Titration: 04/27/25 12:00 Dose: 0.05 mcg/kg/min, 5.953 mls/hr Documented By: Titration: 04/27/25 08:00 Dose: 0.07 mcg/kg/min, 8.335 mls/hr Documented By: Titration: 04/27/25 02:55 Dose: 0.05 mcg/kg/min, 5.953 mls/hr Documented By: Admin: 04/27/25 02:50 Dose: 0.05 mcg/kg/min, 5.953 mls/hr Documented By: PHOENIX Sodium Chloride (Ns) 1,000 mls @ 999 mls/hr IV .Q1H1M ONE Stop: 04/27/25 05:50 Last Admin: 04/27/25 12:19 Dose: Not Given Documented By: BERNADETTE Non-Admin Reason: Not In Room Piperacillin Sod/Tazobactam (Sod 4.5 gm/ Sodium Chloride) 100 mls @ 200 mls/hr IV X1 ONE Stop: 04/27/25 07:44 Last Admin: 04/27/25 12:03 Dose: 200 mls/hr Documented By: BERNADETTE Lactated Ringer's (Lactated Ringers) 1,000 mls @ 999 mls/hr IV .Q1H1M ONE Stop: 04/27/25 09:38 Last Admin: 04/27/25 09:10 Dose: 999 mls/hr Documented By: BERNADETTE Albumin Human (Albuminar-25 Ivpb) 25 gm in 100 mls @ 100 mls/hr IV QDAY ONE Stop: 04/27/25 11:08 Last Admin: 04/27/25 12:03 Dose: 100 mls/hr Documented By: BERNADETTE Lactated Ringer's (Lactated Ringers) 1,000 mls @ 999 mls/hr IV .Q1H1M ONE Stop: 04/28/25 08:55 Last Admin: 04/28/25 08:55 Dose: 999 mls/hr Documented By: BERNADETTE Potassium Chloride (Kcl Ivpb) 10 meq in 100 mls @ 100 mls/hr IV Q1H IMANI Stop: 04/28/25 11:55 Last Admin: 04/28/25 12:23 Dose: 100 mls/hr Documented By: Infusion: 04/28/25 12:12 Dose: Infused Documented By: Admin: 04/28/25 11:12 Dose: 100 mls/hr Documented By: Infusion: 04/28/25 11:06 Dose: Infused Documented By: Admin: 04/28/25 10:06 Dose: 100 mls/hr Documented By: Infusion: 04/28/25 09:55 Dose: Infused Documented By: Admin: 04/28/25 08:55 Dose: 100 mls/hr Documented By: BERNADETTE Insulin Degludec (Insulin Degludec 5 Unit/0.05 Ml (Per 5 Units)) 13 unit SC X1 ONE Stop: 04/27/25 03:38 Last Admin: 04/27/25 12:19 Dose: Not Given Documented By: BERNADETTE Non-Admin Reason: Not In Room Insulin Human Lispro (Insulin Lispro (Admelog) 1 Unit/0.01 Ml Unit) 6 unit SC X1 ONE Stop: 04/27/25 03:42 Last Admin: 04/27/25 12:19 Dose: Not Given Documented By: BERNADETTE Non-Admin Reason: Not In Room Ketorolac Tromethamine (Ketorolac Inj 30 Mg/Ml Vial) 30 mg IVP X1 ONE Stop: 04/26/25 21:59 Last Admin: 04/27/25 02:10 Dose: 30 mg Documented By: JAMISON Midodrine (Midodrine 5 Mg Tablet) 10 mg PO TID [facility] Stop: 05/27/25 13:19 Last Admin: 04/27/25 13:37 Dose: 10 mg Documented By: Midodrine (Midodrine 5 Mg Tablet) 10 mg PO TID [facility] Stop: 05/27/25 13:19 Midodrine (Midodrine 5 Mg Tablet) 10 mg PO TID [facility] Stop: 05/27/25 13:19 Last Admin: 04/28/25 05:01 Dose: 10 mg Documented By: Admin: 04/27/25 21:01 Dose: 10 mg Documented By: Sodium Chloride (Sodium Chloride Rt 10% 15 Ml Nebu) 5 ml INH X1 ONE Stop: 04/27/25 01:41 Last Admin: 04/27/25 03:23 Dose: Not Given Documented By: CS Non-Admin Reason: Other, see note Treatment here included: IVF Cefepim 2 gram IV and Vancomycin 2 gram IV Tylenol 1000 mg IV and Toradol 30 mg IV Levophed drip Arterial line placement by me (see procedure note) Central line placement by resident Consultations Consultation(s) initiated? (list below): Yes Consultation #1 (Physician, Specialty, Details): I discussed the case with our ICU service. About the presentation and exam and diagnostics and treatments here. And need of further care in the hospital. Will accept the patient. Time: 01:14 Diagnosis Fever Differential Diagnosis: cellulitis, fever of unknown origin, gastroenteritis, community acquired pneumonia, pyelonephritis, viral infection, sepsis and influenza Most likely diagnosis given after review of the tests above:: At this point, diagnoses include: Sepsis, Hyponatremia, Pneumonia, UTI (urinary tract infection), Severe anemia, LFT elevation, Hyperglycemia, Elevated d-dimer Admission Indicated Admission indicated?: indicated Explain why admission is indicated or not indicated:: Sepsis, Hyponatremia, Pneumonia, UTI (urinary tract infection), Severe anemia, LFT elevation, Hyperglycemia, Elevated d-dimer Admission Request Was there a request for admission?: Yes Admission Attestation Admission request attestation: Discussed case with ICU service regarding admission. Discussed patients ED course, exam findings, labs, and radiology results. Agreed to accept the patient for admission. Disposition Plan Disposition Plan: Admit Critical Care Time Critical Care Time Total Critical Care Time (min.): 48 Attestation: Due to a high probability of clinically significant, life threatening deterioration, the patient required my highest level of preparedness to intervene emergently and I personally spent this critical care time directly and personally managing the patient. This critical care time included obtaining a history; examining the patient; ordering and review of studies; arranging urgent treatment with development of a management plan; evaluation of patient's response to treatment; frequent reassessment; and discussions with family and other providers. It was exclusive of separately billable procedures and treating other patients and teaching time. Rolan Nielson MD Discharge Plan Plan Patient Disposition: Admit Acute Care w/in Hospital Problem List Clinical Impression: Sepsis, Hyponatremia, Pneumonia, UTI (urinary tract infection), Severe anemia, LFT elevation, Hyperglycemia, Elevated d-dimer
--- NOTE | 2025-04-26 21:18 | XR_ITS ---
Examination: AP chest single view Technique one AP portable supine chest single view Date and time: April 27, 2025 0007 hours INDICATIONS: Post central line placement FINDINGS: Poor inspiration. No central line. Tracheostomy tube tip 6.5 cm above monica. Significant left base pneumonia IMPRESSION: Significant left base pneumonia.
[2025-04-26 22:27] LABS: Collection Type, Urine Clean Catch
[2025-04-26 22:40] LABS: Bilirubin,Urine Negative (Negative); Blood,Urine 3+ (Negative); Color,Urine Drk-Yellow (Lt Yel-Yel); Glucose, Urine Negative (Negative); Ketones,Urine Negative (Negative); Leukocyte Esterase,Urine Positive (Negative); Nitrite,Urine Negative (Negative); PH,Urine 5.5 (5.0-7.0); Protein,Urine 2+ (Neg - Trace); RBC,Urine 1847 /hpf (0-3); Specific Gravity,Urine 1.020 (1.001-1.035); Squamous Epithelial Cell,Urine 3 /hpf (0-5); Urobilinogen,Urine 3.0 mg/dL (0.0-1.0); WBC,Urine 1892 /hpf (0-5)
[2025-04-26 22:41] LABS: Clarity,Urine Turbid (Clear/Hazy); Culture Indicated,Urine Yes
[2025-04-26 23:14] LABS: Lactate (Lactic Acid) 2.2 mMol/L (0.4-2.0)
[2025-04-26 23:42] LABS: Sed Rate (ESR) 102 mm/hr (0-20)
[2025-04-26 23:46] LABS: Basophils # (Auto) 0.1 Thou/mm3 (0.0-0.2); Basophils % (Auto) 0 % (0-2.5); Eosinophils # (Auto) 0.1 Thou/mm3 (0.0-0.5); Eosinophils % (Auto) 0 % (0-10); Hematocrit 25.9 % (41.0-53.0); Immature Granulocytes Auto 0.72 Thou/mm3 (0.00-0.00); Lymphocytes # (Auto) 1.9 Thou/mm3 (1.0-4.8); Lymphocytes % (Auto) 7 % (10-50); Mean Corpuscular HGB Conc 31.7 g/dl (31.0-37.0); Mean Corpuscular Hemoglobin 23.4 pg (25.0-35.0); Mean Corpuscular Volume 74 fL (80-100); Monocytes # (Auto) 2.1 Thou/mm3 (0.0-0.8); Monocytes % (Auto) 7 % (0-12); Neutrophils # (Auto) 23.7 Thou/mm3 (1.8-7.7); Neutrophils % (Auto) 83 % (37-80); Nucleated Red Blood Cell # 0.00 Thou/mm3 (0.00-0.00); Nucleated Red Blood Cell % 0 /100 WBC (0); Platelet Count 368 Thou/mm3 (140-440); RDW Standard Deviation 48.2 fL (35.1-43.9); Red Blood Count 3.50 Miln/mm3 (4.50-5.90); White Blood Count 28.6 Thou/mm3 (3.8-10.6)
[2025-04-26 23:47] LABS: Hemoglobin 8.2 g/dL (13.5-16.0)
[2025-04-26 23:53] LABS: Alanine Aminotransferase 47 U/L (10-49); Albumin, Serum 3.2 gm/dL (3.4-4.8); Albumin/Globulin Ratio 0.8 (1.2-2.2); Alkaline Phosphatase 229 U/L (46-116); Anion Gap 10 (7-16); Aspartate Amino Transferase 71 U/L (0-34); BUN/Creatinine Ratio 24 Ratio (12-20); Bilirubin,Direct 1.4 mg/dL (0.0-0.3); Bilirubin,Total 1.8 mg/dL (0.3-1.2); Blood Urea Nitrogen 36 mg/dL (9-23); Calcium 8.8 mg/dL (8.3-10.6); Calcium (Corrected) 9.4 mg/dL (8.5-10.1); Carbon Dioxide 19.9 mMol/L (20.0-31.0); Chloride 87 mMol/L (98-107); Creatinine (Component) 1.5 mg/dL (0.6-1.3); Estimated Creatinine Clearance 54.3 mL/min (>60); Globulin 4.0 gm/dL (2.3-3.5); Glucose 299 mg/dL (74-106); Magnesium 2.0 mg/dL (1.6-2.6); Osmolality,Calculated 255 (275-295); Potassium 4.1 mMol/L (3.4-5.1); Procalcitonin 2.28 ng/ml (0.0-0.49); Thyroid Stimulating Hormone 4.73 uIU/mL (0.55-4.78); Total Protein 7.2 gm/dL (5.7-8.2); Troponin I < 0.020 ng/mL (0.0-0.045); eGFR 47 See Note
[2025-04-26 23:58] LABS: Sodium 117 mMol/L (136-145)
[2025-04-27] VITALS (118 sets, daily range): BP systolic 65–131; BP diastolic 39–85; PULSE 69–123; RESP 10–43; TEMP 36.6–38.3; O2SAT 85–100; BMI 40.1
[2025-04-27 00:06] LABS: B-Type Natriuretic Peptide 138 pg/mL (0-100)
[2025-04-27 00:07] LABS: C-Reactive Protein > 10.0 mg/dL (0.0-0.9)
[2025-04-27 00:10] LABS: D-Dimer > 3820 ng/mL (<600)
--- NOTE | 2025-04-27 00:56 | PD.RESPROC ---
PROCEDURES: Procedure Date / Time 04/26/25 4340 Central Line Placement Left Femoral: Indication(s): other Informed consent obtained: obtained from surrogate decision maker Time out done, and the following verified: correct patient, side and site, procedure, patient position and implants and/or equipment Patient placed on monitor/pulse ox: Yes Hand Hygiene: alcohol-based hand rub Max Sterile Barrier Techniques used: cap, mask, sterile gown, sterile gloves and sterile full body drape Central line prep: Chlorhexidine scrub Local anesthesia used: lidocaine 1% Amount of anesthesia used (mL): 5 Ultrasound used for placement: Yes Sterile Technique if Ultrasound used, including sterile gel: yes Central line lumen inserted: triple Post procedure: sutured in place, good blood return, all ports aspirated, flushed, capped and sterile dressing applied Post procedure x-ray: no pneumothorax seen Patient tolerated procedure: well EBL(ml): 10 Complications: none
[2025-04-27] MEDS: CEFEPIME INJ 2 GM in SODIUM CHLORIDE 0.9% (Popper) 50 ML IV (02:02)
[2025-04-27 02:05] LABS: Reflex Lactate? Y
[2025-04-27] MEDS: KETOROLAC INJ 30 MG/ML VIAL IVP (02:10)
[2025-04-27] MEDS: Vancomycin Inj 2,000 MG in SODIUM CHLORIDE 0.9% 500 ML 500 ML 150 MG IV (02:10)
[2025-04-27 02:13] LABS: Base Excess -6 (-3-3); HCO3 20 mEq/L (20-26); Inspired Oxygen, FIO2 21 %; O2 Saturation 98 % (91-98); PCO2 41 mmHg (32.0-48.0); PO2 99 mmHg (83-108); pH, Arterial 7.30 (7.35-7.45)
[2025-04-27] MEDS: ACETAMINOPHEN IVPB 1,000 MG/100 ML VIAL 250 MG IV (02:13)
[2025-04-27] MEDS: SODIUM CHLORIDE 0.9% 1000 ML 1,000 ML 100 ML IV (02:13)
[2025-04-27] MEDS: Magnesium Sulfate 2 GM Ivpb 2 GM/50 ML BAG IV (02:14)
[2025-04-27 02:15] LABS: Allen Test Not Performed; Puncture Site Arterial Line
[2025-04-27] MEDS: Norepinephrine/NS 16mg/250ml 16 MG/250 ML BAG 5.953 MG IV (02:50)
--- NOTE | 2025-04-27 03:23 | PC.RT ---
sodium chloride not given, was able to received sputum collection through in-line suction. sputum sample sent to lab
--- NOTE | 2025-04-27 03:25 | PD.RESHP ---
Documentation for date of: 04/27/25 [facility] History of Present Illness History of present illness: The patient is a 80-year-old male with significant past medical history of CVA s/p trach/PEG tube, chronic hypoxic respiratory failure, MRSA pneumonia, Pseudomonas UTI, MRSA bacteremia, sacral ulcer, IDDM type II, hypertension, hyperlipidemia, vertebral osteomyelitis, acute pancreatitis, calculus cholelithiasis, MARGARETTE requiring hemodialysis in the past, and decubitus ulcers brought in by [facility] by the [facility] [place] with chief complaint of fever for past 2 days. As per nursing facility staff, the patient is nonverbal at baseline with GCS score is 5, and they provided a note to rule out sepsis. The at bedside is a poor historian, and believe that the patient still interacts with her. Initially in the ED her vitals were BP 128/58, pulse 123, RR 29, temperature 100.9, saturating 100% on 40 L FiO2 via tracheostomy tube. Labs are significant for white count of 28.6, hemoglobin 8.2, MCV 74, platelet 368, ESR 102, D-dimer greater than 3820, ABG revealed pH 7.30, pCO2 41, sodium 117 with corrected sodium for hyperglycemia is 123, potassium 4.1, chloride 87, bicarb 19.9, anion gap 10, BUN/creatinine 36/1.5, GFR 47, blood sugar 299, lactic acid 2.2, magnesium 2.0, T. bili 1.8, direct bilirubin 1.4, AST/ALT/ALP 71/47/229, troponin less than 0.020, CRP greater than 10.0, BNP 138, albumin 3.2, Pro-Tevin 2.28, UA revealed dark yellow urine, turbid, 2+ protein, 3+ blood, leukocyte esterase positive, RBC 1847, WBC 1892, urine bacteria none. Chest x-ray revealed extensive bilateral pneumonia. PMH: As mentioned above SHX: Positive abdominal surgery, tracheostomy, gastrostomy and knee joint replacement Family history: Unobtainable Social history: He is , often comes to visit, others unobtainable Medications: To be reconciled Allergies: NYLA inhibitors, upper airway edema, ARB's for airway edema The patient was given 1 L of bolus normal saline in the ED, vancomycin and cefepime IV x 1, and he is MAP dropped down to less than 65, and was started on Levophed. The patient was admitted to ICU for further management of septic shock secondary to pneumonia and UTI. Review of Systems Review of Systems ROS Unobtainable: unobtainable due to mental status Exam Vital Signs Temp Pulse Resp BP Pulse Ox O2 Del Method FiO2 100.2 F 110 H 23 H 91/57 L 100 Ambu-Bag 40 04/27/25 03:18 04/27/25 02:55 04/27/25 02:55 04/27/25 02:55 04/27/25 02:55 04/26/25 21:07 04/26/25 21:35 Narrative Exam General: No acute distress, Alert and Oriented x 0, GCS of 5 at baseline HEENT: Moist mucous membranes, oropharynx clear Neck: Supple, No masses, No JVD CVS: Sinus tachycardic, No murmurs, rubs or gallops Lungs: Mild rhonchi throughout the lung field, no wheezing, crackles or decreased breath sounds Abd: Soft, NT/ND, +BS, no organomegaly Ext: No edema, warm and well perfused Skin: Multiple stages of decubitus ulcers Psych: Unobtainable Results: Labs 04/26/25 22:30 04/27/25 03:30 Labs: Short CBC 04/26/25 Range/Units 22:30 WBC 28.6 H (3.8-10.6) Thou/mm3 Hgb 8.2 L (13.5-16.0) g/dL Hct 25.9 L (41.0-53.0) % Plt Count 368 (140-440) Thou/mm3 BMP 04/26/25 22:30 Sodium 117 L* Potassium 4.1 Chloride 87 L Carbon Dioxide 19.9 L BUN 36 H Creatinine 1.5 H Glucose 299 H Calcium 8.8 Cardiac Enzymes 04/26/25 Range/Units 22:30 Troponin I < 0.020 (0.0-0.045) ng/mL Liver Function 04/26/25 Range/Units 22:30 Total Bilirubin 1.8 H (0.3-1.2) mg/dL Direct Bilirubin 1.4 H (0.0-0.3) mg/dL AST 71 H (0-34) U/L ALT 47 (10-49) U/L Alkaline Phosphatase 229 H (46-116) U/L Albumin 3.2 L (3.4-4.8) gm/dL Urine 04/26/25 Range/Units 20:11 Urine Color Drk-Yellow A (Lt Yel-Yel) Urine Clarity Turbid A (Clear/Hazy) Urine pH 5.5 (5.0-7.0) Ur Specific Felch 1.020 (1.001-1.035) Urine Protein 2+ A (Neg - Trace) Urine Glucose (UA) Negative (Negative) ABG Interpretation ABG results: 04/27/25 02:12 ABG pH 7.30 L ABG pCO2 41 ABG pO2 99 ABG HCO3 20 ABG O2 Saturation 98 ABG Base Excess -6 L Quality Measures Quality Measures none Advance care planning discussed with:: spouse Medications Home Medications and Allergies Home Medications ?Medication ?Instructions ?Recorded ?Confirmed ?Type ascorbic acid (vitamin C) 500 mg 500 mg feeding tube BID 01/05/22 04/20/24 History tablet aspirin 81 mg chewable tablet 81 mg feeding tube QDAY 01/05/22 04/20/24 History cetirizine 10 mg tablet 10 mg feeding tube QDAY 01/05/22 04/20/24 History clopidogrel 75 mg tablet 75 mg feeding tube QDAY 01/05/22 04/20/24 History ezetimibe 10 mg tablet 10 mg feeding tube QPM 01/05/22 04/20/24 History fluticasone propionate 50 1 spray intranasal QDAY 01/05/22 04/20/24 History mcg/actuation nasal spray,suspension glipizide 5 mg tablet 5 mg feeding tube QDAY 01/05/22 04/20/24 History melatonin 3 mg tablet 5 mg feeding tube HS 01/05/22 04/20/24 History multivitamin with minerals 15 ml feeding tube QDAY 01/05/22 04/20/24 History sodium phosphates 19 gram-7 118 ml NE PRN PRN Constipation 01/05/22 04/20/24 History gram/118 mL enema (Fleet Enema) lactulose 10 gram/15 mL oral 20 g PO QDAY 08/14/22 04/20/24 History solution simethicone 80 mg chewable tablet 80 mg feeding tube BID 08/14/22 04/20/24 History bisacodyl 10 mg rectal suppository 10 mg NE EVERYOTHERDAY PRN bowel 11/27/22 04/20/24 History gabapentin 300 mg capsule 600 mg PO BID 11/27/22 04/20/24 History amlodipine 5 mg tablet 10 mg feeding tube QDAY 01/16/23 04/20/24 History ferrous sulfate 220 mg (44 mg 220 mg PO QDAY 01/16/23 04/20/24 History iron)/5 mL oral solution furosemide 20 mg tablet 20 mg PO QDAY 01/16/23 04/20/24 History insulin glargine 100 unit/mL 13 unit subcut QPM 01/16/23 04/20/24 History subcutaneous cartridge ketotifen fumarate 0.025 % (0.035 1 drp ophthalmic (eye) BID 01/16/23 04/20/24 History %) eye drops sennosides 8.8 mg/5 mL oral syrup 5 ml PO BID 01/16/23 04/20/24 History (senna) sodium bicarbonate 650 mg tablet 650 mg PO QDAY 01/16/23 04/20/24 History sodium zirconium cyclosilicate 5 5 g PO Q OTHER DAY 01/16/23 04/20/24 History gram oral powder packet (Lokelma) Allergies Allergy/AdvReac Type Severity Reaction Status Date / Time NYLA Inhibitors AdvReac Severe Upper Verified 04/20/24 14:37 Airway Edema ARB-Angiotensin Receptor AdvReac Severe Upper Verified 04/20/24 14:37 Antagonist Airway Edema Visit Medications Acetaminophen (Acetaminophen 325 Mg Tablet) 650 mg PO Q4HR PRN PRN Reason: PAIN SCALE 1-3 (mild Stop: 05/27/25 03:10 Acetaminophen (Acetaminophen Supp 650 Mg Supp) 650 mg NE Q4HR PRN PRN Reason: Pain Scale 1-3 and temp >100.4 Stop: 05/27/25 03:10 Aspirin (Aspirin Ec 81 Mg Tabec) 81 mg PO QDAY [facility] Stop: 05/27/25 08:59 Heparin Sodium (Porcine) (Heparin Sod Inj 5000 Unit/Ml Vial) 5,000 unit SC Q8HR [facility] Stop: 05/11/25 05:59 Sodium Chloride (Ns) 1,000 mls @ 100 mls/hr IV .Q10H ONE Stop: 04/27/25 10:09 Last Admin: 04/27/25 02:13 Dose: 100 mls/hr Norepinephrine Bitartrate (Levophed In Ns 16mg/250ml) 16 mg in 250 mls @ 5.953 mls/hr IV .Q24H PRN; Protocol PRN Reason: PER PROTOCOL Stop: 05/27/25 02:39 Last Titration: 04/27/25 02:55 Dose: 0.05 mcg/kg/min, 5.953 mls/hr Piperacillin Sod/Tazobactam (Sod 4.5 gm/ Sodium Chloride) 100 mls @ 200 mls/hr IV Q6H [facility] Stop: 05/04/25 07:59 Magnesium Hydroxide (Milk Of Magnesia Susp 30 Ml Udc) 30 ml PO QDAY PRN PRN Reason: CONSTIPATION Stop: 05/27/25 03:10 Pharmacy Consult (Vancomycin Pharmacy To Dose 1 Each Each) 1 each IV QDAY [facility] Stop: 05/27/25 08:59 Discontinued Medications Cefepime HCl 2 gm/ Sodium (Chloride) 50 mls @ 100 mls/hr IV X1 ONE Stop: 04/26/25 21:44 Last Infusion: 04/27/25 02:51 Dose: Infused Sodium Chloride (Ns) 1,000 mls @ 999 mls/hr IV .Q1H1M ONE Stop: 04/26/25 22:15 Vancomycin HCl 2,000 mg/ (Sodium Chloride) 500 mls @ 150 mls/hr IV X1 ONE Stop: 04/27/25 00:34 Last Admin: 04/27/25 02:10 Dose: 150 mls/hr Sodium Chloride (Ns) 1,000 mls @ 999 mls/hr IV .Q1H1M ONE Stop: 04/26/25 22:16 Sodium Chloride (Ns) 1,000 mls @ 999 mls/hr IV .Q1H1M ONE Stop: 04/26/25 22:17 Acetaminophen (Ofirmev Inj) 1,000 mg in 100 mls @ 250 mls/hr IV Q6HR IMANI Stop: 04/27/25 18:23 Last Infusion: 04/27/25 02:50 Dose: Infused Magnesium Sulfate (Magnesium Sulfate Ivpb) 2 gm in 50 mls @ 25 mls/hr IV X1 ONE Stop: 04/27/25 02:35 Last Admin: 04/27/25 02:14 Dose: 25 mls/hr Ketorolac Tromethamine (Ketorolac Inj 30 Mg/Ml Vial) 30 mg IVP X1 ONE Stop: 04/26/25 21:59 Last Admin: 04/27/25 02:10 Dose: 30 mg Sodium Chloride (Sodium Chloride Rt 10% 15 Ml Nebu) 5 ml INH X1 ONE Stop: 04/27/25 01:41 Last Admin: 04/27/25 03:23 Dose: Not Given Assessment & Plan Plan The patient is a 80-year-old male with significant past medical history of CVA s/p trach/PEG tube, chronic hypoxic respiratory failure, MRSA pneumonia, Pseudomonas UTI, MRSA bacteremia, sacral ulcer, IDDM type II, hypertension, hyperlipidemia, vertebral osteomyelitis, acute pancreatitis, calculus cholelithiasis, MARGARETTE requiring hemodialysis in the past, and decubitus ulcers brought in by [facility] by the [facility] [place] with chief complaint of fever for past 2 days. As per nursing facility staff, the patient is nonverbal at baseline with GCS score is 5, and they provided a note to rule out sepsis. The patient was given 1 L of bolus normal saline in the ED, vancomycin and cefepime IV x 1, and he is MAP dropped down to less than 65, and was started on Levophed. The patient was admitted to ICU for further management of septic shock secondary to pneumonia and UTI. Neuro: #Chronic encephalopathy 2/2 #S/P stroke - Aspirin 81 Mg daily CVS: #Shock Most likely septic Patient presented with fever, tachycardia, white count of 28 and RR 29, lactic acid 2.2, and requiring pressure support The patient received 1 L of normal saline in the ED. Due to concern of overcorrection of hyponatremia, full 30 cc/kg body fluid was not given. - Started on Levophed, taper down as tolerated #Hypertension Currently in shock - Hold any home antihypertensive #Hyperlipidemia - Resume home medication after reconciliation Pulmonology: #Possible acute hypoxic respiratory failure 2/2 #Healthcare associated pneumonia #Chronic respiratory failure 2/2 #S/p CVA The patient presented with fever, was found to have bilateral pneumonia on chest x-ray, the baseline oxygen requirement is unknown, but currently on FiO2 40% - Continue on mechanical ventilation through tracheostomy tube - Taper down oxygen requirement as needed - Antibiotics as per ID #GI #Diarrhea The patient had loose bowel movement in the ED - Ordered Clostridium difficile for his stool #S/p PEG tube - Resume tube feed Renal #Moderate hyponatremia The patient presented with sodium of 117, but corrected sodium was 123 Etiology currently unknown, possible etiology or sepsis with bilateral pneumonia, nutritional deficiency The patient received 1 L of normal saline in the ED for sepsis - Sodium check every 4 hourly, will make sure to calculate corrected sodium #MARGARETTE Likely prerenal secondary to sepsis Presented with creatinine of 1.5, baseline creatinine about 0.7-0.8 Patient received 1 L of normal saline in the ED - Daily a.m. labs for renal panel - Renally dose medications - Avoid nephrotoxins #Non-anion gap metabolic acidosis #Lactic acidosis 2/2 sepsis Likely complicated by diarrhea with bicarbonate loss via stool Patient received 1 L of normal saline in the ED - Daily chemistry panel - Cautious fluid resuscitation as needed due to risks of overcorrection of hyponatremia Endocrinology: #Insulin-dependent diabetes mellitus type 2 - Started on insulin degludec 13 units daily at night - Sliding scale insulin lispro every 6 hourly with fingerstick blood sugar checks - A1c ordered Hematology: #Leukocytosis 2/2 sepsis Presented with white count of 28 -Daily a.m. labs for CBC - Treat the underlying cause sepsis #Microcytic anemia Likely 2/2 anemia of chronic disease, but could not rule out other differentials like nutritional deficiency - Iron panel, ferritin, folic acid, vitamin B12, reticulocyte count, peripheral smear and LDH ordered -Daily a.m. labs for CBC #Elevated D-dimer Presented with D-dimer level of 3820 in the ED - Continue to monitor ID: #Septic shock 2/2 #Bilateral healthcare associated pneumonia #Severe UTI Chest x-ray revealed bilateral pneumonia, UA revealed UA revealed dark yellow urine, turbid, 2+ protein, 3+ blood, leukocyte esterase positive, RBC 1847, WBC 1892, urine bacteria none Patient received vancomycin and cefepime IV x 1 in the ED - Continue on vancomycin - Started on Zosyn 4.5 g every 6 hourly -Blood culture, sputum culture and urine culture pending Skin: #Multistage decubitus ulcer Patient has multi stages decubitus ulcer at buttock, and heels - Wound care consultation done MSK: #Contracted extremities 2/2 #Immobility - Physical therapy Health maintenance: Dispo: Patient admitted to ICU for further management of septic shock and hyponatremia Diet: N.p.o. for now, may resume tube feed Lines: Central line DVT prophylaxis: Subcu heparin every 8 hourly CODE STATUS: Full code, confirmed by at bedside The patient's management plan was discussed with my attending physician MD Demetris Donato MD, PGY3 Attending Provider Attestation/Addendum I have examined the patient, reviewed labs and imaging findings, discussed the case with the resident(s), and reviewed entered orders. I agree with the plan of care as outlined in this note, with these additional summaries/recommendations: After examination of the patient and review of the clinical data, I feel that this patient needs admission to the hospital for further treatment and evaluation. Patient is a 80-year-old male with a medical history of CVA status post trach and PEG, chronic respiratory failure on MV, insulin dependent diabetes mellitus type 2, primary hypertension, hyperlipidemia, history of MRSA pneumonia and bacteremia, Pseudomonas UTIs, constipation, and chronic pressure ulcers presents to [facility] emergency department on 04/26/2025 from SNF for fever x 2 days. Patient and patient's seen at bedside. Patient diagnosed with sepsis. He meets 4 out of 4 SIRS criteria. qSOFA 1 on admission. Labs notable for WBC count 28.6, Pro-Tevin 2.28, and lactate 2.2. Evidence of endorgan damage with MARGARETTE and hyperbilirubinemia. Most likely sources are pulmonary, urinary, and GI sources. Chest x-ray appears to have left base pneumonia. White mucus noted in tracheostomy tube. Order frequent suctioning. Urinalysis suggestive of UTI. White mucus also noted in Abbott catheter. Abbott catheter exchanged in ED. Per patient's nurse he has also had 5 episodes of diarrhea while in the ER that is foul-smelling. Unclear if patient has received any antibiotics recently. We will order C. difficile and contact precautions for now. Order sputum culture, blood culture, urine culture, and C. difficile. We will start broad-spectrum antibiotics IV zosyn and vancomycin given patient's history of MRSA pneumonia?s/bacteremia and Pseudomonas UTIs. Patient does have multiple pressure ulcers in sacral region and left lower extremity. They do not appear to be infected at this time. Consult wound care. Tylenol as needed for fever. Hypotonic hyponatremia present. Presented with sodium of 117 and serum osmolality of 255. Corrected sodium for hyperglycemia is actually 122. Patient actually appears fairly euvolemic despite sepsis. Etiologies include extrarenal losses from diarrhea versus SIADH versus polydipsia from free water flushes versus low solute intake. Order urine osmolality and urine sodium. Trend sodium every 4 hours. Consult nephrology, recommendations appreciated. IV fluids ordered in the emergency room for sepsis protocol and MARGARETTE. We will repeat stat sodium and if worsens we will likely stop fluids and give hypertonic saline to prevent further decline. Patient diagnosed with acute kidney injury. On admission creatinine 1.5 and BUN 36. Baseline creatinine appears approximately 0.7. Most likely secondary to prerenal azotemia from sepsis. We will continue IVF as able. Renally dose medications and avoid nephrotoxic agents. Lactic acidosis present which is minimal. Most likely type A from sepsis. Follow-up reflex lactate level. Total bilirubin 1.8. Does not appear to have any tenderness to palpation on abdominal exam although mildly distended. Order CT of abdomen and pelvis. Patient has diabetes mellitus type 2 with hyperglycemia. Blood sugar on admission 296. Start basal and bolus insulin with Accu-Cheks. Target a blood sugar of 140-180 while hospitalized. Consult dietary to resume tube feeds and free water flushes when able. Tube feeds likely need to be reviewed at [facility] given consistent hyperglycemia. Order A1c. Hold home antihypertensives for soft blood pressure. Continue home anticoagulation for history of CVA, pending medication reconciliation. Patient's updated on the plan and in agreement. All questions answered to satisfaction. Please see residents note for additional details and management. 0300: I was called by the medical team that patient's blood pressure has dropped. I examined patient at bedside and MAP now trending between 50 and 55. Patient has only received approximately 1 L of fluid resuscitation secondary to difficult IV access and central line placement. Nonetheless given severity of hypotension we will start patient on Levophed. Patient now diagnosed with septic shock and will be admitted to the ICU. Dr. Mary Kay MD
--- NOTE | 2025-04-27 03:44 | EVENTNT_ITS ---
Documentation for date of: 04/27/25 Event Note Event Note: Kwadwo Sanchez, 80M with PMHx of CVA with severe neurologic impairment (baseline GCS 5, non-verbal, trach/PEG dependent), ventilator-dependent chronic hypoxic respiratory failure, IDDM, HTN, CKD with prior dialysis, recurrent MDR UTIs, MRSA bacteremia, vertebral osteomyelitis, chronic protein-calorie malnutrition, and severe decubitus ulcers. He was initially being admitted from SNF for evaluation of fever, hematuria with Abbott trauma, pneumonia, diarrhea concerning for C. diff, MARGARETTE, hyponatremia, and sepsis. On reassessment at bedside, patient was noted to have progressive hypotension. Initially MAPs were in the 90s, which then fell to the 70s, then to the 60s, with the lowest recorded MAP at 49. Patient remained ill-appearing and non- verbal, baseline GCS 5. Given worsening hypotension, ICU was called for evaluation for vasopressor requirement. Patient already had central line and arterial line in place. A 1L IV fluid bolus had been administered; however, additional 30cc/kg boluses were deferred due to concern for hyponatremia (Na 117, corrected 122). Despite fluids, blood pressure remained low. Norepinephrine (Levofed) was initiated with improvement of MAP to 62 prior to transfer. At time of ICU acceptance, patient was on ventilator support via trach, with broad spectrum antibiotics (cefepime + vancomycin) already initiated by ED, and cultures pending (blood, urine, sputum, stool for C. diff). Patient had no urine output since arrival, concerning for obstructive process vs septic MARGARETTE. Assessment at time of transfer: * Severe sepsis with septic shock (urinary + pulmonary sources, possible C. diff) * Hyponatremia, corrected Na 122 * MARGARETTE with anuria post-Abbott trauma * Hypotension requiring vasopressors Plan: Patient upgraded from telemetry floor to ICU for ongoing management of septic shock, hyponatremia, and hypotension requiring norepinephrine support. ----- Plan discussed with attending physician Dr. Mary Kay Raza MD PGY-1 Internal Medicine
[2025-04-27 03:53] LABS: Lactic Acid, 3 HR 2.5 mMol/L (0.4-2.0)
[2025-04-27 04:14] LABS: Glucose Estimated Average 255 mg/dL (80-131); Hemoglobin A1C 10.5 % Hgb (4.8-6.0)
[2025-04-27 04:24] LABS: Alanine Aminotransferase 37 U/L (10-49); Albumin, Serum 2.8 gm/dL (3.4-4.8); Albumin/Globulin Ratio 0.9 (1.2-2.2); Alkaline Phosphatase 211 U/L (46-116); Anion Gap 12 (7-16); Aspartate Amino Transferase 60 U/L (0-34); BUN/Creatinine Ratio 27 Ratio (12-20); Bilirubin,Total 1.6 mg/dL (0.3-1.2); Blood Urea Nitrogen 38 mg/dL (9-23); Calcium 8.5 mg/dL (8.3-10.6); Calcium (Corrected) 9.5 mg/dL (8.5-10.1); Carbon Dioxide 18.2 mMol/L (20.0-31.0); Chloride 88 mMol/L (98-107); Creatinine (Component) 1.4 mg/dL (0.6-1.3); Estimated Creatinine Clearance 58.2 mL/min (>60); Globulin 3.2 gm/dL (2.3-3.5); Glucose 281 mg/dL (74-106); Osmolality,Calculated 257 (275-295); Potassium 4.1 mMol/L (3.4-5.1); Thyroid Stimulating Hormone 3.05 uIU/mL (0.55-4.78); Total Protein 6.0 gm/dL (5.7-8.2); eGFR 51 See Note
[2025-04-27 04:27] LABS: Sodium 118 mMol/L (136-145)
[2025-04-27 04:42] LABS: Immature Reticulocyte Fraction 36.5 % (2.3-13.4); Reticulocyte % (Auto) 2.1 % (0.5-1.5); Reticulocyte Absolute Auto 64.5 Biln/L (25.0-75.0); Reticulocyte Hgb Content 22.5 pg (28.0-35.0)
[2025-04-27 04:43] LABS: Path Review Blood Smear Sent to Pathologist
[2025-04-27 07:19] LABS: Folate 22.57 ng/mL (>5.38); Vitamin B12 1328 pg/mL (211-911)
[2025-04-27 07:43] LABS: Base Excess -9 (-3-3); HCO3 20 mEq/L (20-26); Inspired Oxygen, FIO2 45 %; O2 Saturation 98 % (91-98); PCO2 53 mmHg (32.0-48.0); PO2 98 mmHg (83-108)
[2025-04-27 07:46] LABS: Ferritin 284 ng/mL (10.5-307.3); Iron 11 mcg/dL (65-175); Percent Iron Saturation 5 % (20-55); Total Iron Binding Capacity 213 mcg/dL (250-425); Unsaturated Iron Binding 202 (225-295)
[2025-04-27 07:47] LABS: Allen Test Performed/OK; Puncture Site Left Radial; pH, Arterial 7.18 (7.35-7.45)
--- NOTE | 2025-04-27 08:47 | PD.RESCONSUL ---
HPI Data of Consult Consult date: 04/27/25 Requesting Physician: Zeyad Muñiz MD Admitting Provider: Zeyad Muñiz MD Attending Provider: Zeyad Muñiz MD Primary Care Provider: Alexa Heredia MD Consult Narrative Reason for consult: Hyponatremia History of present illness: History per ICU h and p: The patient is a 80-year-old male with significant past medical history of CVA s/p trach/PEG tube, chronic hypoxic respiratory failure, MRSA pneumonia, Pseudomonas UTI, MRSA bacteremia, sacral ulcer, IDDM type II, hypertension, hyperlipidemia, vertebral osteomyelitis, acute pancreatitis, calculus cholelithiasis, MARGARETTE requiring hemodialysis in the past, and decubitus ulcers brought in by [facility] by the [facility] at [place] with chief complaint of fever for past 2 days. As per nursing facility staff, the patient is nonverbal at baseline with GCS score is 5, and they provided a note to rule out sepsis. The at bedside is a poor historian, and believe that the patient still interacts with her. Initially in the ED her vitals were BP 128/58, pulse 123, RR 29, temperature 100.9, saturating 100% on 40 L FiO2 via tracheostomy tube. Labs are significant for white count of 28.6, hemoglobin 8.2, MCV 74, platelet 368, ESR 102, D-dimer greater than 3820, ABG revealed pH 7.30, pCO2 41, sodium 117 with corrected sodium for hyperglycemia is 123, potassium 4.1, chloride 87, bicarb 19.9, anion gap 10, BUN/creatinine 36/1.5, GFR 47, blood sugar 299, lactic acid 2.2, magnesium 2.0, T. bili 1.8, direct bilirubin 1.4, AST/ALT/ALP 71/47/229, troponin less than 0.020, CRP greater than 10.0, BNP 138, albumin 3.2, Pro-Tevin 2.28, UA revealed dark yellow urine, turbid, 2+ protein, 3+ blood, leukocyte esterase positive, RBC 1847, WBC 1892, urine bacteria none. Chest x-ray revealed extensive bilateral pneumonia. PMH: As mentioned above SHX: Positive abdominal surgery, tracheostomy, gastrostomy and knee joint replacement Family history: Unobtainable Social history: He is , often comes to visit, others unobtainable Medications: To be reconciled Allergies: NYLA inhibitors, upper airway edema, ARB's for airway edema The patient was given 1 L of bolus normal saline in the ED, vancomycin and cefepime IV x 1, and he is MAP dropped down to less than 65, and was started on Levophed. The patient was admitted to ICU for further management of septic shock secondary to pneumonia and UTI. 04/27/2025: pt admitted to ICU, Nephrology consulted patient seen and examined in ICU pt on pressors, pt is unresponsive to voice and pain, Pupils are fixed and non responsive to light. pt has sacral wounds being examined by wound nurse divya. pt appears hypervolemic on exam, BLE edematous. ICU managing fluids, Na 118, Cl 88, hco3 17, BUN 35, Cr 1.6, Serum Osm 257 UA with 2+ protein 3+ blood. Urine looks concentrated suspect hypervolemia hyponatremia, reccomend diuretics and albumin cc:: cc: Zeyad Muñiz MD Review of Systems Review of Systems ROS Unobtainable: unobtainable due to mental status and unobtainable due to medical condition Exam Vital Signs Temp Pulse Resp BP Pulse Ox O2 Del Method FiO2 100.2 F 101 H 22 H 89/56 L 92 L Ambu-Bag 30 04/27/25 03:18 04/27/25 08:06 04/27/25 03:25 04/27/25 03:25 04/27/25 08:06 04/26/25 21:07 04/27/25 08:06 Narrative Exam General: No acute distress, Not awake, not Alert. per nursing facilityGCS of 5 at baseline HEENT: Moist mucous membranes, oropharynx not assessed Neck: trach in place midline CVS: Sinus tachycardic, +murmor , rubs or gallops Lungs: Mild rhonchi throughout the lung field, no wheezing, crackles or decreased breath sounds Abd: Soft, NT, slightly distended, +BS, epigastric peg tube in place with no errythema crusting or drainage around tube. : german in place with some blood at the urethral meatus, Ext: diffuse nonpitting edema, warm and well perfused, bilateral femoral lines Skin: Multiple stages of decubitus ulcers on buttoks and sacrum , L heel with 3cm bruise violacious Psych: Unobtainable Results Labs 04/28/25 05:51 04/28/25 09:20 Labs: Short CBC 04/26/25 Range/Units 22:30 WBC 28.6 H (3.8-10.6) Thou/mm3 Hgb 8.2 L (13.5-16.0) g/dL Hct 25.9 L (41.0-53.0) % Plt Count 368 (140-440) Thou/mm3 BMP 04/26/25 04/27/25 22:30 03:30 Sodium 117 L* 118 L* Potassium 4.1 4.1 Chloride 87 L 88 L Carbon Dioxide 19.9 L 18.2 L BUN 36 H 38 H Creatinine 1.5 H 1.4 H Glucose 299 H 281 H Calcium 8.8 8.5 Cardiac Enzymes 04/26/25 Range/Units 22:30 Troponin I < 0.020 (0.0-0.045) ng/mL Liver Function 04/26/25 04/27/25 Range/Units 22:30 03:30 Total Bilirubin 1.8 H 1.6 H (0.3-1.2) mg/dL Direct Bilirubin 1.4 H (0.0-0.3) mg/dL AST 71 H 60 H (0-34) U/L ALT 47 37 (10-49) U/L Alkaline Phosphatase 229 H 211 H (46-116) U/L Albumin 3.2 L 2.8 L (3.4-4.8) gm/dL Urine 04/26/25 Range/Units 20:11 Urine Color Drk-Yellow A (Lt Yel-Yel) Urine Clarity Turbid A (Clear/Hazy) Urine pH 5.5 (5.0-7.0) Ur Specific [place] 1.020 (1.001-1.035) Urine Protein 2+ A (Neg - Trace) Urine Glucose (UA) Negative (Negative) ABG Interpretation ABG results: 04/27/25 04/27/25 02:12 07:39 ABG pH 7.30 L 7.18 L* D ABG pCO2 41 53 H D ABG pO2 99 98 ABG HCO3 20 20 ABG O2 Saturation 98 98 ABG Base Excess -6 L -9 L Quality Measures Quality Measures none Advance care planning discussed with:: other Medications Home Medications and Allergies Home Medications ?Medication ?Instructions ?Recorded ?Confirmed ?Type ascorbic acid (vitamin C) 500 mg 500 mg feeding tube BID 01/05/22 04/27/25 History tablet aspirin 81 mg chewable tablet 81 mg feeding tube QDAY 01/05/22 04/27/25 History cetirizine 10 mg tablet 10 mg feeding tube QDAY 01/05/22 04/27/25 History clopidogrel 75 mg tablet 75 mg feeding tube QDAY 01/05/22 04/27/25 History ezetimibe 10 mg tablet 10 mg feeding tube QPM 01/05/22 04/27/25 History fluticasone propionate 50 1 spray intranasal QDAY 01/05/22 04/27/25 History mcg/actuation nasal spray,suspension glipizide 5 mg tablet 5 mg feeding tube QDAY 01/05/22 04/27/25 History melatonin 3 mg tablet 5 mg feeding tube HS 01/05/22 04/27/25 History multivitamin with minerals 15 ml feeding tube QDAY 01/05/22 04/27/25 History sodium phosphates 19 gram-7 118 ml SD PRN PRN Constipation 01/05/22 04/27/25 History gram/118 mL enema (Fleet Enema) lactulose 10 gram/15 mL oral 20 g PO QDAY 08/14/22 04/27/25 History solution simethicone 80 mg chewable tablet 80 mg feeding tube BID 08/14/22 04/27/25 History bisacodyl 10 mg rectal suppository 10 mg SD EVERYOTHERDAY PRN bowel 11/27/22 04/27/25 History gabapentin 300 mg capsule 600 mg PO BID 11/27/22 04/27/25 History amlodipine 5 mg tablet 10 mg feeding tube QDAY 01/16/23 04/27/25 History ferrous sulfate 220 mg (44 mg 220 mg PO QDAY 01/16/23 04/27/25 History iron)/5 mL oral solution furosemide 20 mg tablet 20 mg PO QDAY 01/16/23 04/27/25 History insulin glargine 100 unit/mL 25 unit subcut QPM 01/16/23 04/27/25 History subcutaneous cartridge ketotifen fumarate 0.025 % (0.035 1 drp ophthalmic (eye) BID 01/16/23 04/27/25 History %) eye drops sennosides 8.8 mg/5 mL oral syrup 5 ml PO BID 01/16/23 04/27/25 History (senna) sodium bicarbonate 650 mg tablet 650 mg PO QDAY 01/16/23 04/27/25 History sodium zirconium cyclosilicate 5 5 g PO Q OTHER DAY 01/16/23 04/27/25 History gram oral powder packet (Lokelma) Allergies Allergy/AdvReac Type Severity Reaction Status Date / Time NYLA Inhibitors AdvReac Severe Upper Verified 04/20/24 14:37 Airway Edema ARB-Angiotensin Receptor AdvReac Severe Upper Verified 04/20/24 14:37 Antagonist Airway Edema Visit Medications Acetaminophen (Acetaminophen 325 Mg Tablet) 650 mg PO Q4HR PRN PRN Reason: PAIN SCALE 1-3 (mild Stop: 05/27/25 03:10 Acetaminophen (Acetaminophen Supp 650 Mg Supp) 650 mg SD Q4HR PRN PRN Reason: Pain Scale 1-3 and temp >100.4 Stop: 05/27/25 03:10 Aspirin (Aspirin Ec 81 Mg Tabec) 81 mg PO QDAY [facility] Stop: 05/27/25 08:59 Dextrose (Dextrose 50%-Water Inj 50 Ml Syringe) 25 ml IV Q15MIN PRN PRN Reason: BG 50-70 responsive npo pt Stop: 05/27/25 03:36 Dextrose (Dextrose 50%-Water Inj 50 Ml Syringe) 50 ml IV Q15MIN PRN PRN Reason: BG <50 OR BG <70 & pt unresponsive Stop: 05/27/25 03:36 Glucagon (Glucagon Inj 1 Mg Vial) 1 mg IM Q15MIN PRN PRN Reason: BG <70, and no IV access Heparin Sodium (Porcine) (Heparin Sod Inj 5000 Unit/Ml Vial) 5,000 unit SC Q8HR [facility] Stop: 05/11/25 05:59 Sodium Chloride (Ns) 1,000 mls @ 100 mls/hr IV .Q10H ONE Stop: 04/27/25 10:09 Last Admin: 04/27/25 02:13 Dose: 100 mls/hr Norepinephrine Bitartrate (Levophed In Ns 16mg/250ml) 16 mg in 250 mls @ 5.953 mls/hr IV .Q24H PRN; Protocol PRN Reason: PER PROTOCOL Stop: 05/27/25 02:39 Last Titration: 04/27/25 08:00 Dose: 0.07 mcg/kg/min, 8.335 mls/hr Vancomycin HCl (Vancomycin/Water 1gm Ivpb) 200 mls @ 120 mls/hr IV BID@1000,2200 IMANI; Protocol Stop: 05/04/25 21:59 Piperacillin/Tazobactam/Dextrose (Zosyn) 3.375 gm in 50 mls @ 12.5 mls/hr IV Q8HR IMANI Stop: 05/04/25 13:59 Lactated Ringer's (Lactated Ringers) 1,000 mls @ 999 mls/hr IV .Q1H1M ONE Stop: 04/27/25 09:38 Insulin Degludec (Insulin Degludec 5 Unit/0.05 Ml (Per 5 Units)) 13 unit SC HS IMANI Stop: 05/27/25 20:59 Insulin Human Lispro (Insulin Lispro (Admelog) 1 Unit/0.01 Ml Unit) 0 unit SC Q6HR IMANI; Protocol Stop: 05/27/25 05:59 Magnesium Hydroxide (Milk Of Magnesia Susp 30 Ml Udc) 30 ml PO QDAY PRN PRN Reason: CONSTIPATION Stop: 05/27/25 03:10 Pharmacy Consult (Vancomycin Pharmacy To Dose 1 Each Each) 1 each IV QDAY PRN PRN Reason: PROTOCOL Stop: 05/27/25 08:59 Discontinued Medications Cefepime HCl 2 gm/ Sodium (Chloride) 50 mls @ 100 mls/hr IV X1 ONE Stop: 04/26/25 21:44 Last Infusion: 04/27/25 02:51 Dose: Infused Sodium Chloride (Ns) 1,000 mls @ 999 mls/hr IV .Q1H1M ONE Stop: 04/26/25 22:15 Last Admin: 04/27/25 05:44 Dose: Not Given Vancomycin HCl 2,000 mg/ (Sodium Chloride) 500 mls @ 150 mls/hr IV X1 ONE Stop: 04/27/25 00:34 Last Infusion: 04/27/25 05:45 Dose: Infused Sodium Chloride (Ns) 1,000 mls @ 999 mls/hr IV .Q1H1M ONE Stop: 04/26/25 22:16 Last Admin: 04/27/25 05:44 Dose: Not Given Sodium Chloride (Ns) 1,000 mls @ 999 mls/hr IV .Q1H1M ONE Stop: 04/26/25 22:17 Last Admin: 04/27/25 05:45 Dose: Not Given Acetaminophen (Ofirmev Inj) 1,000 mg in 100 mls @ 250 mls/hr IV Q6HR IMANI Stop: 04/27/25 18:23 Last Infusion: 04/27/25 02:50 Dose: Infused Magnesium Sulfate (Magnesium Sulfate Ivpb) 2 gm in 50 mls @ 25 mls/hr IV X1 ONE Stop: 04/27/25 02:35 Last Infusion: 04/27/25 05:45 Dose: Infused Sodium Chloride (Ns) 1,000 mls @ 999 mls/hr IV .Q1H1M ONE Stop: 04/27/25 05:50 Piperacillin Sod/Tazobactam (Sod 4.5 gm/ Sodium Chloride) 100 mls @ 200 mls/hr IV X1 ONE Stop: 04/27/25 07:44 Insulin Degludec (Insulin Degludec 5 Unit/0.05 Ml (Per 5 Units)) 13 unit SC X1 ONE Stop: 04/27/25 03:38 Insulin Human Lispro (Insulin Lispro (Admelog) 1 Unit/0.01 Ml Unit) 6 unit SC X1 ONE Stop: 04/27/25 03:42 Ketorolac Tromethamine (Ketorolac Inj 30 Mg/Ml Vial) 30 mg IVP X1 ONE Stop: 04/26/25 21:59 Last Admin: 04/27/25 02:10 Dose: 30 mg Sodium Chloride (Sodium Chloride Rt 10% 15 Ml Nebu) 5 ml INH X1 ONE Stop: 04/27/25 01:41 Last Admin: 04/27/25 03:23 Dose: Not Given Assessment & Plan Plan Mr Sanchez is a 80-year-old gentleman with hx of CVA s/p trach/PEG tube, chronic hypoxic respiratory failure, MRSA pneumonia, Pseudomonas UTI, MRSA bacteremia, sacral ulcer, IDDM type II (poorl controlled A1c 10.5), hypertension, hyperlipidemia, vertebral osteomyelitis, hx of MARGARETTE requiring hemodialysis in the past, whose baseline mental status is GCS 5, admitted to ICU for septic shock 2/2 PNA vs UTI, requiring pressors and hyponatremia. #moderate hyponatremia (Na 118, corrected Na 123) The patient presented with sodium of 117, but the corrected sodium was 123 (pt hyerglycemic to 288) The patient received 1 L of normal saline in the ED for sepsis and 1 L LR in the ICU Serum osm 257: hypernatremic, hypotonic, hypervolemic on exam: query CHF vs renal failure, vs cirrhosis vs nephrotic syndrome (UA with 2+ protein) - give IV albumin given c/f third spacing in setting of sepsis, - trial bumex - Sodium checks q4 - Urine protein: Cr ratio: #MARGARETTE Likely prerenal secondary to sepsis Presented with creatinine of 1.5, baseline creatinine about 0.7-0.8 Patient received 1 L of normal saline in the ED, given c/f worsening his hyponatremia, sepsis protocol resusitation was not initaited. 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 Due to concern of overcorrection of hyponatremia, full 30 cc/kg body fluid was not given. -1 L LR in icu. - Started on Levophed, taper down as tolerated #Bilateral healthcare associated pneumonia #Severe UTI -on abx -german in place, pt had reportedly pulled out german catheter at nursing facilty, blood noted at the urethral meatus. -Blood culture, sputum culture and urine culture pending #Possible acute hypoxic respiratory failure 2/2 #Healthcare associated pneumonia #Chronic respiratory failure 2/2 #S/p CVA mech ventilation per trach tube, #transaminitis #Diarrhea - pending cdiff r/o #nutrition per peg tube #Microcytic anemia - iron deficiency, iron studies low, retic count elevated. #Non-anion gap metabolic acidosis #Insulin-dependent diabetes mellitus type 2 - A1c 10.5 #Multistage decubitus ulcer #HTN #HLD - managment per primary team Plan discussed with nephrology attending Dr. Camila Conner MD Internal Medicine PGY-1 Attending Provider Attestation/Addendum Patient seen and examined with resident physician Dr. Conner. Note reviewed, agree with findings and recommendations. at bedside and I had a long conversation with her, Patient with hypervolemic hyponatremia. Did receive 1 liter IV fluid. Patient basically bedbound with status post trach and PEG for the last 5 years. Hold free water flushes for now. Medications and labs reviewed. Will monitor serum sodium closely. Hold off on 3% hypertonic saline. Plan of care discussed with ICU team. Thank you Matteo for allowing me to participate in the care of Mr. Sanchez
--- NOTE | 2025-04-27 09:08 | PC.DIETICIAN ---
Dietitian recommendation: When medically feasible, start Glucerna 1.2 @ 25ml/hr, increase as tolerated by 10ml/hr to goal of 65ml/[id number]. If no IVF, give 25ml/hr water flush or per MD. Provides: 1560ml total vol, 1872kcal, 94g protein Thank you
[2025-04-27] MEDS: ASPIRIN 81 MG CHEW GT (09:10)
[2025-04-27] MEDS: RINGERS LACTATED 1000 ML 1,000 ML 999 ML IV (09:10)
[2025-04-27 09:20] LABS: Base Excess -8 (-3-3); HCO3 19 mEq/L (20-26); O2 Saturation 99 % (91-98); PCO2 44 mmHg (32.0-48.0); PO2 110 mmHg (83-108); pH, Arterial 7.24 (7.35-7.45)
[2025-04-27 09:21] LABS: Allen Test Not Performed; Inspired Oxygen, FIO2 30 %; Puncture Site Right Femoral
--- NOTE | 2025-04-27 10:34 | PD.RESPRO ---
Documentation for date of: 04/27/25 Subjective Subjective Interval history: 04/27/2025: Patient is seen and examined at bedside in the ICU. Per patient's family and nursing facility, at baseline patient communicates with blinking, says yes or no but blinking once or twice respectively and receives pain medication, oxycodone as needed in the facility. Vitals are stable and patient is on low-dose Levophed 0.05 at the time of examination. On physical examination, patient is not responding even to painful stimuli and noted to have decubitus ulcer on the side and heel. Bilateral pupils are round, equal and reacting to light. Patient was given 1 more liter of bolus after coming to the ICU in view of suspected prerenal MARGARETTE due to shock. Also noted to have low albumin on CMP for which patient is given 25 g of albumin. Slowly patient noted to come off the vasopressors. Still appears to be hyponatremic which is slowly improving. Shell Press Operator, Dr. Palma is consulted and she recommended to continue to monitor sodium levels and no need of any active intervention. After coming to the ICU, patient noted to have improved urine output around 30 to 50 cc/h. As patient came off the vasopressors gradually, started on tube feeds. Will continue to monitor urine output, renal functions, sodium. ABG done this morning showed mild metabolic acidosis. Exam Vital Signs Temp Pulse Resp BP Pulse Ox O2 Del Method FiO2 100.2 F 101 H 22 H 89/56 L 92 L Ambu-Bag 30 04/27/25 03:18 04/27/25 08:06 04/27/25 03:25 04/27/25 03:25 04/27/25 08:06 04/26/25 21:07 04/27/25 08:06 Narrative Exam General: Comatose HEENT: Normocephalic, atraumatic, mucous membranes moist. Heart: Regular rate and rhythm, no murmurs. Lungs: Clear to auscultation with no wheezing or crackles. Abdomen: Soft, nondistended, nontender, positive bowel sounds. ?No guarding or rebound tenderness. Neurologic: Comatose Extremities: noted Anasarca Skin: No rash or ecchymoses. noted to have decubitus ulcers Objective Labs 05/01/25 05:38 05/01/25 05:38 Labs: Laboratory Results - last 24 hr 04/26/25 04/26/25 04/27/25 20:11 22:30 02:12 WBC 28.6 H RBC 3.50 L Hgb 8.2 L Hct 25.9 L MCV 74 L MCH 23.4 L MCHC 31.7 RDW Std Deviation 48.2 H Plt Count 368 Neut % (Auto) 83 H Lymph % (Auto) 7 L Mclennan % (Auto) 7 Eos % (Auto) 0 Baso % (Auto) 0 Neut # (Auto) 23.7 H Lymph # (Auto) 1.9 Mclennan # (Auto) 2.1 H Eos # (Auto) 0.1 Baso # (Auto) 0.1 Immature Gran # (Auto) 0.72 H Absolute Nucleated RBC 0.00 Immature Gran % 3 H Nucleated RBC % 0 Smear Path Review ESR 102 H Retic Count (auto) Absolute Retic Immature Retic Fraction Retic Hgb Content CHr D-Dimer > 3820 H Puncture Site Arterial Line ABG pH 7.30 L ABG pCO2 41 ABG pO2 99 ABG HCO3 20 ABG O2 Saturation 98 ABG Base Excess -6 L FiO2 21 Sodium 117 L* Potassium 4.1 Chloride 87 L Carbon Dioxide 19.9 L Anion Gap 10 BUN 36 H Creatinine 1.5 H Estim Creat Clear Calc 54.3 L eGFR 47 L BUN/Creatinine Ratio 24 H Glucose [address] Glu mg/dL Hemoglobin A1c Calculated Osmolality 255 L Lactic Acid 2.2 H Calcium 8.8 Corrected Calcium 9.4 Magnesium 2.0 Iron TIBC Iron Saturation Unsat Iron Binding Ferritin Total Bilirubin 1.8 H Direct Bilirubin 1.4 H AST 71 H ALT 47 Alkaline Phosphatase 229 H Lactate Dehydrogenase Troponin I < 0.020 C-Reactive Prot, Quant > 10.0 H B-Natriuretic Peptide 138 H Total Protein 7.2 Albumin 3.2 L Globulin 4.0 H Albumin/Globulin Ratio 0.8 L Vitamin B12 Folate Procalcitonin 2.28 H TSH 4.73 Ur Collection Type Clean Catch Urine Color Drk-Yellow A Urine Clarity Turbid A Urine pH 5.5 Ur Specific [place] 1.020 Urine Protein 2+ A Urine Glucose (UA) Negative Urine Ketones Negative Urine Blood 3+ A Urine Nitrite Negative Urine Bilirubin Negative Urine Urobilinogen (Auto) 3.0 Ur Leukocyte Esterase Positive Urine RBC 1847 H Urine WBC 1892 H Ur Squamous Epith Cells 3 Urine Bacteria None Ur Culture Indicated? Yes 04/27/25 04/27/25 04/27/25 03:30 04:12 04:13 WBC RBC Hgb Hct MCV MCH MCHC RDW Std Deviation Plt Count Neut % (Auto) Lymph % (Auto) Mclennan % (Auto) Eos % (Auto) Baso % (Auto) Neut # (Auto) Lymph # (Auto) Mclennan # (Auto) Eos # (Auto) Baso # (Auto) Immature Gran # (Auto) Absolute Nucleated RBC Immature Gran % Nucleated RBC % Smear Path Review Sent to Pathologist ESR Retic Count (auto) 2.1 H Absolute Retic 64.5 Immature Retic Fraction 36.5 H Retic Hgb Content CHr 22.5 L D-Dimer Puncture Site ABG pH ABG pCO2 ABG pO2 ABG HCO3 ABG O2 Saturation ABG Base Excess FiO2 Sodium 118 L* Potassium 4.1 Chloride 88 L Carbon Dioxide 18.2 L Anion Gap 12 BUN 38 H Creatinine 1.4 H Estim Creat Clear Calc 58.2 L eGFR 51 L BUN/Creatinine Ratio 27 H Glucose [address] Glu mg/dL 255 H Hemoglobin A1c 10.5 H Calculated Osmolality 257 L Lactic Acid 2.5 H Calcium 8.5 Corrected Calcium 9.5 Magnesium Iron 11 L TIBC 213 L Iron Saturation 5 L Unsat Iron Binding 202 L Ferritin 284 Total Bilirubin 1.6 H Direct Bilirubin AST 60 H ALT 37 Alkaline Phosphatase 211 H Lactate Dehydrogenase Cancelled Troponin I C-Reactive Prot, Quant B-Natriuretic Peptide Total Protein 6.0 Albumin 2.8 L Globulin 3.2 Albumin/Globulin Ratio 0.9 L Vitamin B12 1328 H Folate 22.57 Procalcitonin TSH 3.05 Ur Collection Type Urine Color Urine Clarity Urine pH Ur Specific [place] Urine Protein Urine Glucose (UA) Urine Ketones Urine Blood Urine Nitrite Urine Bilirubin Urine Urobilinogen (Auto) Ur Leukocyte Esterase Urine RBC Urine WBC Ur Squamous Epith Cells Urine Bacteria Ur Culture Indicated? 04/27/25 04/27/25 07:39 09:19 WBC RBC Hgb Hct MCV MCH MCHC RDW Std Deviation Plt Count Neut % (Auto) Lymph % (Auto) Mclennan % (Auto) Eos % (Auto) Baso % (Auto) Neut # (Auto) Lymph # (Auto) Mclennan # (Auto) Eos # (Auto) Baso # (Auto) Immature Gran # (Auto) Absolute Nucleated RBC Immature Gran % Nucleated RBC % Smear Path Review ESR Retic Count (auto) Absolute Retic Immature Retic Fraction Retic Hgb Content CHr D-Dimer Puncture Site Left Radial Right Femoral ABG pH 7.18 L* D 7.24 L ABG pCO2 53 H D 44 ABG pO2 98 110 H ABG HCO3 20 19 L ABG O2 Saturation 98 99 H ABG Base Excess -9 L -8 L FiO2 45 30 Sodium Potassium Chloride Carbon Dioxide Anion Gap BUN Creatinine Estim Creat Clear Calc eGFR BUN/Creatinine Ratio Glucose Estimated Ave Glu mg/dL Hemoglobin A1c Calculated Osmolality Lactic Acid Calcium Corrected Calcium Magnesium Iron TIBC Iron Saturation Unsat Iron Binding Ferritin Total Bilirubin Direct Bilirubin AST ALT Alkaline Phosphatase Lactate Dehydrogenase Troponin I C-Reactive Prot, Quant B-Natriuretic Peptide Total Protein Albumin Globulin Albumin/Globulin Ratio Vitamin B12 Folate Procalcitonin TSH Ur Collection Type Urine Color Urine Clarity Urine pH Ur Specific [place] Urine Protein Urine Glucose (UA) Urine Ketones Urine Blood Urine Nitrite Urine Bilirubin Urine Urobilinogen (Auto) Ur Leukocyte Esterase Urine RBC Urine WBC Ur Squamous Epith Cells Urine Bacteria Ur Culture Indicated? ABG Interpretation ABG results: 04/27/25 04/27/25 04/27/25 02:12 07:39 09:19 ABG pH 7.30 L 7.18 L* D 7.24 L ABG pCO2 41 53 H D 44 ABG pO2 99 98 110 H ABG HCO3 20 20 19 L ABG O2 Saturation 98 98 99 H ABG Base Excess -6 L -9 L -8 L Quality Measures Quality Measures none Advance care planning discussed with:: spouse and child Assessment & Plan Assessment Current Active Medications: Generic Name Dose Route Start Last Admin Trade Name Freq PRN Reason Stop Dose Admin Acetaminophen 650 mg 04/27/25 03:11 Acetaminophen 325 Mg Tablet PO 05/27/25 03:10 Q4HR PRN PAIN SCALE 1-3 (mild Acetaminophen 650 mg 04/27/25 03:11 Acetaminophen Supp [address] 05/27/25 03:10 Q4HR PRN Pain Scale 1-3 and temp >100.4 Aspirin 81 mg 04/27/25 09:00 04/27/25 09:10 Aspirin 81 Mg Chew GT 05/27/25 08:59 81 mg QDAY IMANI Administration Dextrose 25 ml 04/27/25 03:37 Dextrose 50%-Water Inj 50 Ml Syringe IV 05/27/25 03:36 Q15MIN PRN BG 50-70 responsive npo pt Dextrose 50 ml 04/27/25 03:37 Dextrose 50%-Water Inj 50 Ml Syringe IV 05/27/25 03:36 Q15MIN PRN BG <50 OR BG <70 & pt unresponsive Glucagon 1 mg 04/27/25 03:37 Glucagon Inj 1 Mg Vial IM Q15MIN PRN BG <70, and no IV access Heparin Sodium (Porcine) 5,000 unit 04/27/25 06:00 Heparin Sod Inj 5000 Unit/Ml Vial SC 05/11/25 05:59 Q8HR [facility] Norepinephrine Bitartrate 16 mg in 250 mls @ 5.953 mls/hr 04/27/25 02:40 04/27/25 08:00 Levophed In Ns 16mg/250ml IV 05/27/25 02:39 0.07 mcg/kg/min .Q24H PRN 8.335 mls/hr PER PROTOCOL Titration Protocol 0.05 MCG/KG/MIN Vancomycin HCl 200 mls @ 120 mls/hr 04/27/25 22:00 Vancomycin/Water 1gm Ivpb IV 05/04/25 21:59 BID@1000,2200 IMANI Protocol Piperacillin/Tazobactam/Dextrose 3.375 gm in 50 mls @ 12.5 mls/hr 04/27/25 14:00 Zosyn IV 05/04/25 13:59 Q8HR IMANI Albumin Human 25 gm in 100 mls @ 100 mls/hr 04/27/25 10:09 Albuminar-25 Ivpb IV 04/27/25 11:08 QDAY ONE Insulin Degludec 13 unit 04/27/25 21:00 Insulin Degludec 5 Unit/0.05 Ml (Per 5 Units) SC 05/27/25 20:59 HS [facility] Insulin Human Lispro 0 unit 04/27/25 06:00 Insulin Lispro (Admelog) 1 Unit/0.01 Ml Unit SC 05/27/25 05:59 Q6HR [facility] Protocol Magnesium Hydroxide 30 ml 04/27/25 03:11 Milk Of Magnesia Susp 30 Ml Udc PO 05/27/25 03:10 QDAY PRN CONSTIPATION Pharmacy Consult 1 each 04/27/25 09:00 Vancomycin Pharmacy To Dose 1 Each Each IV 05/27/25 08:59 QDAY PRN PROTOCOL Plan The patient is a 80-year-old male with significant past medical history of CVA s/p trach/PEG tube, chronic hypoxic respiratory failure, MRSA pneumonia, Pseudomonas UTI, MRSA bacteremia, sacral ulcer, IDDM type II, hypertension, hyperlipidemia, vertebral osteomyelitis, acute pancreatitis, calculus cholelithiasis, MARGARETTE requiring hemodialysis in the past, and decubitus ulcers brought in by [facility] by the [facility] [place] with chief complaint of fever for past 2 days. As per nursing facility staff, the patient is nonverbal at baseline with GCS score is 5, and they provided a note to rule out sepsis. The patient was given 1 L of bolus normal saline in the ED, vancomycin and cefepime IV x 1, and he is MAP dropped down to less than 65, and was started on Levophed. The patient was admitted to ICU for further management of septic shock secondary to pneumonia and UTI. 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 As patient appears to be fluid overloaded, full 30 cc/kg body fluid was not given. - Started on Levophed, taper down as tolerated - Midodrine 10mg TID as needed if MAP < 65 and SBP <100 - Started on zosyn and vancomycin #Hypertension Currently in shock - Using Amlodipine 10mg every day and will Hold medications for now. #Hyperlipidemia - Resume home medication after reconciliation Pulmonology: #Possible acute on chronic hypoxic respiratory failure 2/2 #Healthcare associated pneumonia #S/p CVA The patient presented with fever, was found to have bilateral pneumonia on chest x-ray, the baseline oxygen requirement is unknown, but currently on FiO2 30% - Continue on mechanical ventilation through tracheostomy tube - Taper down oxygen requirement as needed - Antibiotics as per ID GI #S/p PEG tube - Resumed tube feeds Renal # Hyponatremia The patient presented with sodium of 117, but corrected sodium was 123 Likely in the setting of suspected prerenal MARGARETTE The patient received 1 L of normal saline in the ED for sepsis and 1 more bolus of LR is given in the ICU - Sodium check every 4 hourly, will make sure to calculate corrected sodium - Shell Press Operator, Dr. Jensen is consulted and recommended to monitor sodium levels for now - Urine electrolytes was ordered #MARGARETTE Likely prerenal secondary to sepsis Presented with creatinine of 1.5, baseline creatinine about 0.7-0.8 Patient received 1 L of normal saline in the ED - Will continue to monitor renal panel - Renally dose medications and Avoid nephrotoxins - Shell Press Operator, Dr. Jensen is consulted and will appreciate her recommendations #Non-anion gap metabolic acidosis #Lactic acidosis 2/2 sepsis, resolved - ikely due to septic shock causing MARGARETTE - Lactate at the time of admission is 2.1 which downtrended to 1, bicarb at the time of admission is 19.9 which is slowly improving -Will continue to monitor renal panel - Patient was given 1 extra liter of LR in the ICU followed by albumin Endocrinology: #Insulin-dependent diabetes mellitus type 2 - Started on insulin degludec 13 units daily at night - Sliding scale insulin lispro every 6 hourly with fingerstick blood sugar checks - A1c ordered - 10.5 Hematology: #Leukocytosis 2/2 sepsis Presented with white count of 28 - Daily a.m. labs for CBC - Treat the underlying cause sepsis #Microcytic anemia Likely 2/2 anemia of chronic disease, but could not rule out other differentials like nutritional deficiency - Iron panel, ferritin, folic acid, vitamin B12, reticulocyte count, peripheral smear and LDH ordered - showed iron deficiency - Will supplement iron once the infection is resolved - Daily a.m. labs for CBC ID #Septic shock 2/2 #Bilateral healthcare associated pneumonia Vs Severe UTI Chest x-ray revealed bilateral pneumonia, UA revealed UA revealed dark yellow urine, turbid, 2+ protein, 3+ blood, leukocyte esterase positive, RBC 1847, WBC 1892, urine bacteria none Patient received vancomycin and cefepime IV x 1 in the ED - Continue on vancomycin - Started on Zosyn 4.5 g every 6 hourly -Blood culture, sputum culture and urine culture pending Skin: #Multistage decubitus ulcer Patient has multi stages decubitus ulcer at buttock, and heels - Wound care consultation done MSK: #Contracted extremities 2/2 #Immobility - Physical therapy Health maintenance: Dispo: Patient admitted to ICU for further management of septic shock and hyponatremia Diet: G tube feeds Lines: Central line DVT prophylaxis: Subcu heparin every 8 hourly CODE STATUS: Full code, confirmed by at bedside Patient plan of care was discussed with the Forester Aide, Dr. Matteo Vigil, PGY2 Attending Provider Attestation/Addendum Patient seen and examined with above resident, Shayne Vigil MD. I agree with the findings, assessment, and plan of care as document except for any differences below. Patient continues on vasopressor support for septic shock likely secondary to complicated urinary tract infection. Patient on appropriate antibiotics with vancomycin and and Zosyn given history of bacteremia as well as Pseudomonas. Patient with multiple decubitus ulcers though these are unlikely to be infected. Pulmonary compliance remains stable on mechanical ventilation which is chronic suggesting against presence of a new pneumonia. Patient with significant hyponatremia and patient did receive 1 L of fluid this morning but will challenge further. Sodium level remains corrected at 123. Continue to monitor closely with allowance of slow correction in the coming days. Patient's vasopressor requirements low enough that we will resume tube feeds now. Minimize free water as this will further make hyponatremia worse. Continue to monitor urine output given acute kidney injury as well. Abbott has already been exchanged during this hospital course and he is producing an adequate amount. Patient's family updated at bedside, he is visited daily by his . Total critical care time: I personally spent 35 minutes for review of physiologic parameters, directing plan of care throughout the day, coordination of care with other subspecialists, and counseling patient's family at bedside. This is exclusive of time spent teaching and staff performing a separate billable procedures. Patient remains at significant risk for further morbidity and mortality warranting close monitoring and care when available in the ICU. Critical care services required for septic shock, complicated urinary tract infection, chronic respiratory failure on mechanical ventilation, acute renal failure.
[2025-04-27 10:46] LABS: Lactate (Lactic Acid) 1.0 mMol/L (0.4-2.0)
[2025-04-27 11:14] LABS: Alanine Aminotransferase 38 U/L (10-49); Albumin, Serum 3.1 gm/dL (3.4-4.8); Albumin/Globulin Ratio 0.8 (1.2-2.2); Alkaline Phosphatase 213 U/L (46-116); Anion Gap 12 (7-16); Aspartate Amino Transferase 48 U/L (0-34); BUN/Creatinine Ratio 22 Ratio (12-20); Bilirubin,Total 1.5 mg/dL (0.3-1.2); Blood Urea Nitrogen 35 mg/dL (9-23); Calcium 8.7 mg/dL (8.3-10.6); Calcium (Corrected) 9.4 mg/dL (8.5-10.1); Carbon Dioxide 17.7 mMol/L (20.0-31.0); Chloride 88 mMol/L (98-107); Creatinine (Component) 1.6 mg/dL (0.6-1.3); Estimated Creatinine Clearance 50.9 mL/min (>60); Globulin 3.7 gm/dL (2.3-3.5); Glucose 288 mg/dL (74-106); Osmolality,Calculated 257 (275-295); Potassium 4.4 mMol/L (3.4-5.1); Total Protein 6.8 gm/dL (5.7-8.2); eGFR 44 See Note
[2025-04-27 11:17] LABS: Sodium 118 mMol/L (136-145)
[2025-04-27 11:38] LABS: Clostridium Difficile PCR Negative (Negative)
[2025-04-27] MEDS: PIPER/TAZO INJ 4.5 GM in SODIUM CHLORIDE 0.9% (POP) 100 ML IV (12:03)
[2025-04-27] MEDS: ALBUMIN HUMAN 25% IVPB 25 GM/100 ML BTL IV (12:03)
[2025-04-27 12:24] LABS: Allen Test Not Performed; Base Excess -8 (-3-3); HCO3 18 mEq/L (20-26); Inspired Oxygen, FIO2 100 %; O2 Saturation 100 % (91-98); PCO2 39 mmHg (32.0-48.0); PO2 135 mmHg (83-108); Puncture Site Arterial Line; pH, Arterial 7.28 (7.35-7.45)
--- NOTE | 2025-04-27 13:15 | ECHO_ITS ---
Transthoracic Echo Report Ht (in): 70 Wt (lb): 279 Exam Location: Echo Lab Status: Inpatient Resident Services Manager: Melina Mercedes Indications: Procedure Performed: BP: 81 / 50 HR: 87 Technical Quality: Technically difficult study MEASUREMENTS (Male / Female) Normal Values 2D ECHO LV Diastolic Diameter PLAX 5.1 cm 4.2 - 5.9 / 3.9 - 5.3 cm LV Systolic Diameter PLAX 2.5 cm IVS Diastolic Thickness 1.1 cm 0.6 - 1.0 / 0.6 - 0.9 cm LVPW Diastolic Thickness 1.2 cm 0.6 - 1.0 / 0.6 - 0.9 cm LV Relative Wall Thickness 0.5 LVOT Diameter 2.4 cm Aortic Root Diameter 3.5 cm LV Ejection Fraction MOD BP 57.4 % >= 55 % LV Cardiac Index MOD BP 1790.8 cm?/min?m? LV Ejection Fraction MOD 4C 46.2 % LV Cardiac Index MOD 4C 1504.8 cm?/min?m? LV Ejection Fraction 4C AL 48.4 % LV Cardiac Index 4C AL 1664.2 cm?/min?m? LV Ejection Fraction MOD 2C 65.8 % LV Cardiac Index MOD 2C 1927.0 cm?/min?m? LV Ejection Fraction 2C AL 67.4 % LV Cardiac Index 2C AL 2058.8 cm?/min?m? LA Volume Index 19.9 cm?/m? 16 - 28 cm?/m? Ascending Aorta Diameter 3.4 cm DOPPLER AV Peak Velocity 148.0 cm/s AV Peak Gradient 8.8 mmHg AV Mean Gradient 5.0 mmHg AV Velocity Time Integral 27.6 cm LVOT Peak Velocity 118.0 cm/s LVOT Peak Gradient 5.6 mmHg LVOT Velocity Time Integral 21.9 cm LVOT Cardiac Index 3373.1 cm?/min?m? AV Area Cont Eq vti 3.6 cm? AV Area Cont Eq pk 3.6 cm? MV Area PHT 5.6 cm? MR Peak Velocity 381.0 cm/s MR Peak Gradient 58.1 mmHg Mitral E Point Velocity 70.3 cm/s Mitral A Point Velocity 78.1 cm/s Mitral E to A Ratio 0.9 LV E' Lateral Velocity 7.1 cm/s Mitral E to LV E' Lateral Ratio 9.9 LV E' Septal Velocity 5.8 cm/s Mitral E to LV E' Septal Ratio 12.2 TR Peak Velocity 263.0 cm/s TR Peak Gradient 27.7 mmHg PV Peak Velocity 90.9 cm/s PV Peak Gradient 3.3 mmHg FINDINGS Left Ventricle Normal left ventricular size, wall thickness, systolic function with no obvious regional wall motion abnormalities. The ejection fraction is visually estimated at 55 %. There is grade I diastolic dysfunction of the left ventricle (impaired relaxation pattern). Septum is flattened in systole and diastole D shaped LV consistent with right ventricular volume/pressure overload. Right Ventricle The right ventricular size is moderately increased.the right ventricular systolic function is moderately decreased. Left Atrium The left atrium is normal by two-dimensional, color flow and Doppler imaging with no structural abnormalities, no thrombus formation present. Right Atrium The right atrium is normal by two-dimensional imaging, color flow and Doppler imaging with no structural abnormalities, no thrombus formation present. Atrial Septum The interatrial septum appears normal with no evidence of a shunt. Aorta The aorta is normal by two-dimensional, color flow and Doppler interrogation. Mitral Valve The mitral valve is normal by two-dimensional, color flow and Doppler interrogation. Mild mitral regurgitation. Aortic Valve The aortic valve is trileaflet and normal by two-dimensional, color flow and Doppler interrogation. There is no significant aortic valve regurgitation. Tricuspid Valve The tricuspid valve is normal by two-dimensional, color flow and Doppler interrogation. There is mild tricuspid valve regurgitation. Pulmonic Valve Trivial pulmonic valve regurgitation. Vessels Inferior vena cava not well visualized. Pericardium The pericardium is normal by two-dimensional imaging. There is no significant pericardial effusion. CONCLUSIONS Indication: shock Normal LV size and function. Estimated EF at 55 -60%%. Grade I diastolic dysfunction. Septum is flattened in systole and diastole D shaped LV consistent with right ventricular volume/pressure overload. Mildly increased. RV size. Normal RV function. Mild to moderate TR. estimated RVSP moderately elevated at 40-45 mm hg. Mild MR. Trivial PI. IVC not well visualized. No pericardial effusion. Brett Deleon (Electronically Signed) Final Date: 29 April 2025 12:34
[2025-04-27] MEDS: PIPER/TAZO 3.375 GM PREMIX 3.375 GM/50 ML BAG IV ×2 (13:37→21:02)
[2025-04-27] MEDS: MIDODRINE 5 MG TABLET 10 MG PO ×2 (13:37→21:01)
[2025-04-27] MEDS: HEPARIN SOD INJ 5000 UNIT/ML VIAL SC ×2 (13:37→21:02)
[2025-04-27] MEDS: INSULIN LISPRO (AdmeLOG) 1 UNIT/0.01 ML UNIT SC ×2 (13:54→18:25)
--- NOTE | 2025-04-27 13:59 | XR_ITS ---
Examination: CT brain head without contrast. 2-D sagittal coronal reconstructions Date and time of exam:April 27, 2025 at 1622 hours, comparison September 27, 2021 INDICATIONS: Diagnosis encephalopathy, decreased indentation this week CTDI: vol (mGy):54.3 DLP: (mGycm):1177 Technique: Multiple CT axial sections of the brain have been obtained, 5 mm slice thickness. Contrast has not been administered. 2-D sagittal, coronal reconstructions have been obtained Low dose protocols were performed. One or more of the following dose reduction techniques were used; automated exposure control, adjustment of the mA and/or KV according to patient size, use of iterative reconstruction technique. Findings: No significant ventricular enlargement. Areas of probable encephalomalacia in the right frontal lobe and right parietal lobe axial image 18 Large area of encephalomalacia in the right temporal lobe Diffuse cerebral atrophy No acute hemorrhage, no mass effect Cranial vault intact Acute sphenoid sinusitis IMPRESSION: Multiple areas of probable encephalomalacia as above Brain MRI, MRA without contrast follow-up would best assess for acute ischemic change, chronic multi-infarct dementia pattern
--- NOTE | 2025-04-27 15:10 | PC.PT ---
Will cancel PT evaluation. Patient's PLOF was bed bound and a LTC patient in an LTAC facility.
--- NOTE | 2025-04-27 16:52 | PC.RT ---
Patient transported to CT on transport ventilator. No complications during transport. Patient placed back on settings as charted.
[2025-04-27] MEDS: ACETAMINOPHEN 325 MG TABLET 650 MG PO (18:23)
[2025-04-27 19:04] LABS: Albumin, Serum 3.2 gm/dL (3.4-4.8); Anion Gap 12 (7-16); BUN/Creatinine Ratio 23 Ratio (12-20); Blood Urea Nitrogen 36 mg/dL (9-23); Calcium 8.7 mg/dL (8.3-10.6); Calcium (Corrected) 9.3 mg/dL (8.5-10.1); Carbon Dioxide 18.6 mMol/L (20.0-31.0); Chloride 88 mMol/L (98-107); Creatinine (Component) 1.6 mg/dL (0.6-1.3); Estimated Creatinine Clearance 50.9 mL/min (>60); Glucose 238 mg/dL (74-106); Osmolality,Calculated 256 (275-295); Phosphorous 4.2 mg/dL (2.4-5.1); Potassium 4.0 mMol/L (3.4-5.1); eGFR 44 See Note
[2025-04-27 19:06] LABS: Sodium 119 mMol/L (136-145)
[2025-04-27] MEDS: INSULIN DEGLUDEC 5 UNIT/0.05 ML (PER 5 UNITS) 13 UNIT SC (20:23)
[2025-04-27] MEDS: VANCOMYCIN/WATER 1GM IVPB 200 ML IV (21:01)
[2025-04-27 21:22] LABS: Sodium 120 mMol/L (136-145)
[2025-04-28] VITALS (79 sets, daily range): BP systolic 68–163; BP diastolic 41–96; PULSE 63–97; RESP 18–29; TEMP 36–36.7; O2SAT 90–100; BMI 38.8
[2025-04-28] MEDS: INSULIN LISPRO (AdmeLOG) 1 UNIT/0.01 ML UNIT SC ×3 (00:05→17:37)
[2025-04-28 02:06] LABS: Sodium 120 mMol/L (136-145)
[2025-04-28 04:17] LABS: Base Excess -6 (-3-3); HCO3 19 mEq/L (20-26); Inspired Oxygen, FIO2 25 %; O2 Saturation 99 % (91-98); PCO2 36 mmHg (32.0-48.0); PO2 111 mmHg (83-108); pH, Arterial 7.34 (7.35-7.45)
[2025-04-28 04:24] LABS: Puncture Site Arterial Line
[2025-04-28 04:25] LABS: Allen Test Not Performed
[2025-04-28] MEDS: HEPARIN SOD INJ 5000 UNIT/ML VIAL SC ×3 (05:01→21:22)
[2025-04-28] MEDS: MIDODRINE 5 MG TABLET 10 MG PO (05:01)
[2025-04-28] MEDS: PIPER/TAZO 3.375 GM PREMIX 3.375 GM/50 ML BAG IV ×3 (05:01→21:22)
[2025-04-28 05:09] LABS: Basophils # (Auto) 0.0 Thou/mm3 (0.0-0.2); Basophils % (Auto) 0 % (0-2.5); Eosinophils # (Auto) 0.4 Thou/mm3 (0.0-0.5); Eosinophils % (Auto) 2 % (0-10); Immature Granulocytes Auto 0.29 Thou/mm3 (0.00-0.00); Lymphocytes # (Auto) 0.4 Thou/mm3 (1.0-4.8); Lymphocytes % (Auto) 2 % (10-50); Mean Corpuscular HGB Conc 33.2 g/dl (31.0-37.0); Mean Corpuscular Hemoglobin 23.9 pg (25.0-35.0); Mean Corpuscular Volume 72 fL (80-100); Monocytes # (Auto) 0.9 Thou/mm3 (0.0-0.8); Monocytes % (Auto) 4 % (0-12); Neutrophils # (Auto) 18.8 Thou/mm3 (1.8-7.7); Neutrophils % (Auto) 90 % (37-80); Nucleated Red Blood Cell # 0.03 Thou/mm3 (0.00-0.00); Nucleated Red Blood Cell % 0 /100 WBC (0); Platelet Count 307 Thou/mm3 (140-440); RDW Standard Deviation 47.7 fL (35.1-43.9); Red Blood Count 2.68 Miln/mm3 (4.50-5.90); White Blood Count 20.9 Thou/mm3 (3.8-10.6)
[2025-04-28 05:17] LABS: Hematocrit 19.3 % (41.0-53.0); Hemoglobin 6.4 g/dL (13.5-16.0)
[2025-04-28 05:28] LABS: INR 1.3 (0.9-1.3); Prothrombin Time 13.5 Seconds (9.0-12.2)
[2025-04-28 05:37] LABS: Alanine Aminotransferase 26 U/L (10-49); Albumin, Serum 3.0 gm/dL (3.4-4.8); Albumin/Globulin Ratio 1.0 (1.2-2.2); Alkaline Phosphatase 170 U/L (46-116); Anion Gap 13 (7-16); Aspartate Amino Transferase 29 U/L (0-34); BUN/Creatinine Ratio 24 Ratio (12-20); Bilirubin,Total 0.6 mg/dL (0.3-1.2); Blood Urea Nitrogen 43 mg/dL (9-23); Calcium 8.8 mg/dL (8.3-10.6); Calcium (Corrected) 9.6 mg/dL (8.5-10.1); Carbon Dioxide 18.3 mMol/L (20.0-31.0); Chloride 89 mMol/L (98-107); Creatinine (Component) 1.8 mg/dL (0.6-1.3); Estimated Creatinine Clearance 45.3 mL/min (>60); Globulin 3.1 gm/dL (2.3-3.5); Glucose 186 mg/dL (74-106); Osmolality,Calculated 258 (275-295); Potassium 3.4 mMol/L (3.4-5.1); Sodium 120 mMol/L (136-145); Total Protein 6.1 gm/dL (5.7-8.2); eGFR 38 See Note
--- NOTE | 2025-04-28 06:00 | XR_ITS ---
Examination: AP chest single view Technique one AP portable semiupright chest single view Date and time: April 28, 2025 0645 hours, comparison April 27, 2025 INDICATIONS: Difficulty breathing discrete, pneumonia left base on chest film April 27, 2025 FINDINGS: There remains left perihilar left basilar pneumonia. Stable cardiac contour Moderate elevation right hemidiaphragm. Moderate vascular congestion. Tracheostomy tube tip 8 cm above monica. IMPRESSION: There remains significant left lung pneumonia
[2025-04-28 06:08] LABS: Hematocrit 19.7 % (41.0-53.0); Hemoglobin 6.4 g/dL (13.5-16.0)
[2025-04-28] MEDS: ACETAMINOPHEN 325 MG TABLET 650 MG PO (07:48)
--- NOTE | 2025-04-28 08:44 | ESPR_ITS ---
Documentation for date of: 04/28/25 Subjective Subjective Interval history: 04/27/2025: Patient is seen and examined at bedside in the ICU. Per patient's family and nursing facility, at baseline patient communicates with blinking, says yes or no but blinking once or twice respectively and receives pain medication, oxycodone as needed in the facility. Vitals are stable and patient is on low-dose Levophed 0.05 at the time of examination. On physical examination, patient is not responding even to painful stimuli and noted to have decubitus ulcer on the side and heel. Bilateral pupils are round, equal and reacting to light. Patient was given 1 more liter of bolus after coming to the ICU in view of suspected prerenal MARGARETTE due to shock. Also noted to have low albumin on CMP for which patient is given 25 g of albumin. Slowly patient noted to come off the vasopressors. Still appears to be hyponatremic which is slowly improving. Refinery Operator Visbreaking, Dr. Palma is consulted and she recommended to continue to monitor sodium levels and no need of any active intervention. After coming to the ICU, patient noted to have improved urine output around 30 to 50 cc/h. As patient came off the vasopressors gradually, started on tube feeds. Will continue to monitor urine output, renal functions, sodium. ABG done this morning showed mild metabolic acidosis. 04/28/2025: Patient seen at bedside, mentation improved, was more interactive today, he opens both eyes and tracks, occasionally blinks in response to questions. Patient was off pressors this morning. Midodrine dose was decreased to avoid masking underlying shock. Due to the increasing creatinine, 1L LR was given for suspected prerenal MARGARETTE, urine output remains low at 365 ml in 24 hours. Discussed with Nephrology later on who felt that patient may be fluid overloaded instead and have hypervolemic hypernatremia, so trial of Lasix 40 mg IV x1 given in afternoon. Bicitra 20 ml BID also added. Patient got 2 doses of 25 gm albumin. Repeated renal panel did not show change in creatinine so far. Sodium remained steady at 120. Urine output slightly increased. However, patient started requiring pressors again as MAP dropped to 57. He remains on low dose norepinephrine at 0.03-0.05 range. MRSA screen was positive therefore mupirocin was added. Exam Vital Signs Temp Pulse Resp BP Pulse Ox O2 Del Method FiO2 97.2 F 72 21 H 103/62 97 Trach Collar 25 04/28/25 08:00 04/28/25 08:00 04/28/25 08:00 04/28/25 08:00 04/28/25 08:00 04/27/25 20:00 04/28/25 08:00 Narrative Exam General: Awake, opens eyes HEENT: Normocephalic, atraumatic, mucous membranes moist. Heart: Regular rate and rhythm, no murmurs. Lungs: Clear to auscultation with no wheezing or crackles. Abdomen: Soft, nondistended, nontender, positive bowel sounds. ?No guarding or rebound tenderness. Neurologic: Able to open eyes and sometimes track. Blinks in response sometimes. Paralyzed, no movement all 4 extremities. Extremities: noted Anasarca Skin: No rash or ecchymoses. noted to have decubitus ulcers Objective Labs 04/29/25 02:59 04/29/25 02:59 Labs: Laboratory Results - last 24 hr 04/27/25 04/27/25 04/27/25 01:21 09:19 10:38 WBC RBC Hgb Hct MCV MCH MCHC RDW Std Deviation Plt Count Neut % (Auto) Lymph % (Auto) [place] % (Auto) Eos % (Auto) Baso % (Auto) Neut # (Auto) Lymph # (Auto) [place] # (Auto) Eos # (Auto) Baso # (Auto) Immature Gran # (Auto) Absolute Nucleated RBC Immature Gran % Nucleated RBC % PT INR Puncture Site Right Femoral ABG pH 7.24 L ABG pCO2 44 ABG pO2 110 H ABG HCO3 19 L ABG O2 Saturation 99 H ABG Base Excess -8 L FiO2 30 Sodium 118 L* Potassium 4.4 Chloride 88 L Carbon Dioxide 17.7 L Anion Gap 12 BUN 35 H Creatinine 1.6 H Estim Creat Clear Calc 50.9 L eGFR 44 L BUN/Creatinine Ratio 22 H Glucose 288 H Calculated Osmolality 257 L Lactic Acid 1.0 Calcium 8.7 Corrected Calcium 9.4 Phosphorus Total Bilirubin 1.5 H AST 48 H ALT 38 Alkaline Phosphatase 213 H Total Protein 6.8 Albumin 3.1 L Globulin 3.7 H Albumin/Globulin Ratio 0.8 L Stl C. diff Tox B Gene Negative Crossmatch 04/27/25 04/27/25 04/27/25 12:15 18:06 21:03 WBC RBC Hgb Hct MCV MCH MCHC RDW Std Deviation Plt Count Neut % (Auto) Lymph % (Auto) [place] % (Auto) Eos % (Auto) Baso % (Auto) Neut # (Auto) Lymph # (Auto) [place] # (Auto) Eos # (Auto) Baso # (Auto) Immature Gran # (Auto) Absolute Nucleated RBC Immature Gran % Nucleated RBC % PT INR Puncture Site Arterial Line ABG pH 7.28 L ABG pCO2 39 ABG pO2 135 H D ABG HCO3 18 L ABG O2 Saturation 100 H ABG Base Excess -8 L FiO2 100 Sodium 119 L* 120 L Potassium 4.0 Chloride 88 L Carbon Dioxide 18.6 L Anion Gap 12 BUN 36 H Creatinine 1.6 H Estim Creat Clear Calc 50.9 L eGFR 44 L BUN/Creatinine Ratio 23 H Glucose 238 H D Calculated Osmolality 256 L Lactic Acid Calcium 8.7 Corrected Calcium 9.3 Phosphorus 4.2 Total Bilirubin AST ALT Alkaline Phosphatase Total Protein Albumin 3.2 L Globulin Albumin/Globulin Ratio Stl C. diff Tox B Gene Crossmatch 04/28/25 04/28/25 04/28/25 01:44 04:10 04:39 WBC 20.9 H D RBC 2.68 L Hgb 6.4 L* D Hct 19.3 L* MCV 72 L MCH 23.9 L MCHC 33.2 RDW Std Deviation 47.7 H Plt Count 307 D Neut % (Auto) 90 H Lymph % (Auto) 2 L [place] % (Auto) 4 Eos % (Auto) 2 Baso % (Auto) 0 Neut # (Auto) 18.8 H Lymph # (Auto) 0.4 L [place] # (Auto) 0.9 H Eos # (Auto) 0.4 Baso # (Auto) 0.0 Immature Gran # (Auto) 0.29 H Absolute Nucleated RBC 0.03 H Immature Gran % 1 H Nucleated RBC % 0 PT 13.5 H INR 1.3 Puncture Site Arterial Line ABG pH 7.34 L ABG pCO2 36 ABG pO2 111 H D ABG HCO3 19 L ABG O2 Saturation 99 H ABG Base Excess -6 L FiO2 25 Sodium 120 L 120 L Potassium 3.4 D Chloride 89 L Carbon Dioxide 18.3 L Anion Gap 13 BUN 43 H Creatinine 1.8 H Estim Creat Clear Calc 45.3 L eGFR 38 L BUN/Creatinine Ratio 24 H Glucose 186 H D Calculated Osmolality 258 L Lactic Acid Calcium 8.8 Corrected Calcium 9.6 Phosphorus Total Bilirubin 0.6 D AST 29 ALT 26 Alkaline Phosphatase 170 H D Total Protein 6.1 Albumin 3.0 L Globulin 3.1 Albumin/Globulin Ratio 1.0 L Stl C. diff Tox B Gene Crossmatch 04/28/25 04/28/25 05:51 07:39 WBC RBC Hgb 6.4 L* Hct 19.7 L* MCV MCH MCHC RDW Std Deviation Plt Count Neut % (Auto) Lymph % (Auto) [place] % (Auto) Eos % (Auto) Baso % (Auto) Neut # (Auto) Lymph # (Auto) [place] # (Auto) Eos # (Auto) Baso # (Auto) Immature Gran # (Auto) Absolute Nucleated RBC Immature Gran % Nucleated RBC % PT INR Puncture Site ABG pH ABG pCO2 ABG pO2 ABG HCO3 ABG O2 Saturation ABG Base Excess FiO2 Sodium Potassium Chloride Carbon Dioxide Anion Gap BUN Creatinine Estim Creat Clear Calc eGFR BUN/Creatinine Ratio Glucose Calculated Osmolality Lactic Acid Calcium Corrected Calcium Phosphorus Total Bilirubin AST ALT Alkaline Phosphatase Total Protein Albumin Globulin Albumin/Globulin Ratio Stl C. diff Tox B Gene Crossmatch See Detail ABG Interpretation ABG results: 04/27/25 04/27/25 04/27/25 02:12 07:39 09:19 ABG pH 7.30 L 7.18 L* D 7.24 L ABG pCO2 41 53 H D 44 ABG pO2 99 98 110 H ABG HCO3 20 20 19 L ABG O2 Saturation 98 98 99 H ABG Base Excess -6 L -9 L -8 L 04/27/25 04/28/25 12:15 04:10 ABG pH 7.28 L 7.34 L ABG pCO2 39 36 ABG pO2 135 H D 111 H D ABG HCO3 18 L 19 L ABG O2 Saturation 100 H 99 H ABG Base Excess -8 L -6 L Quality Measures Quality Measures none Advance care planning discussed with:: patient Assessment & Plan Assessment Current Active Medications: Generic Name Dose Route Start Last Admin Trade Name Freq PRN Reason Stop Dose Admin Acetaminophen 650 mg 04/27/25 03:11 04/28/25 07:48 Acetaminophen 325 Mg Tablet PO 05/27/25 03:10 650 mg Q4HR PRN Administration PAIN SCALE 1-3 (mild Acetaminophen 650 mg 04/27/25 03:11 Acetaminophen Supp 650 Mg Supp NV 05/27/25 03:10 Q4HR PRN Pain Scale 1-3 and temp >100.4 Aspirin 81 mg 04/27/25 09:00 04/27/25 09:10 Aspirin 81 Mg Chew GT 05/27/25 08:59 81 mg QDAY IMANI Administration Dextrose 25 ml 04/27/25 03:37 Dextrose 50%-Water Inj 50 Ml Syringe IV 05/27/25 03:36 Q15MIN PRN BG 50-70 responsive npo pt Dextrose 50 ml 04/27/25 03:37 Dextrose 50%-Water Inj 50 Ml Syringe IV 05/27/25 03:36 Q15MIN PRN BG <50 OR BG <70 & pt unresponsive Glucagon 1 mg 04/27/25 03:37 Glucagon Inj 1 Mg Vial IM Q15MIN PRN BG <70, and no IV access Heparin Sodium (Porcine) 5,000 unit 04/27/25 06:00 04/28/25 05:01 Heparin Sod Inj 5000 Unit/Ml Vial SC 05/11/25 05:59 5,000 unit Q8HR IMANI Administration Norepinephrine Bitartrate 16 mg in 250 mls @ 5.953 mls/hr 04/27/25 02:40 04/27/25 21:30 Levophed In Ns 16mg/250ml IV 05/27/25 02:39 0 mcg/kg/min .Q24H PRN 0 mls/hr PER PROTOCOL Titration Protocol 0.05 MCG/KG/MIN Vancomycin HCl 200 mls @ 120 mls/hr 04/27/25 22:00 04/27/25 22:42 Vancomycin/Water 1gm Ivpb IV 05/04/25 21:59 Infused BID@1000,2200 IMANI Infusion Protocol Piperacillin/Tazobactam/Dextrose 3.375 gm in 50 mls @ 12.5 mls/hr 04/27/25 14:00 04/28/25 05:01 Zosyn IV 05/04/25 13:59 12.5 mls/hr Q8HR IMANI Administration Lactated Ringer's 1,000 mls @ 999 mls/hr 04/28/25 07:55 Lactated Ringers IV 04/28/25 08:55 .Q1H1M ONE Potassium Chloride 10 meq in 100 mls @ 100 mls/hr 04/28/25 07:56 Kcl Ivpb IV 04/28/25 11:55 Q1H IMANI Insulin Degludec 13 unit 04/27/25 21:00 04/27/25 20:23 Insulin Degludec 5 Unit/0.05 Ml (Per 5 Units) SC 05/27/25 20:59 13 unit HS IMANI Administration Insulin Human Lispro 0 unit 04/27/25 06:00 04/28/25 06:06 Insulin Lispro (Admelog) 1 Unit/0.01 Ml Unit SC 05/27/25 05:59 1 unit Q6HR IMANI Administration Protocol Magnesium Hydroxide 30 ml 04/27/25 03:11 Milk Of Magnesia Susp 30 Ml Udc PO 05/27/25 03:10 QDAY PRN CONSTIPATION Midodrine 5 mg 04/28/25 14:00 Midodrine 5 Mg Tablet PO 05/28/25 13:59 TID IMANI Oxycodone/Acetaminophen 1 tab 04/27/25 18:29 Oxycodone/Apap 5/325 Tablet GT 05/02/25 18:28 Q6HR PRN Pain 7-10 Pharmacy Consult 1 each 04/27/25 09:00 Vancomycin Pharmacy To Dose 1 Each Each IV 05/27/25 08:59 QDAY PRN PROTOCOL Plan The patient is a 80-year-old male with significant past medical history of CVA s/p trach/PEG tube, chronic hypoxic respiratory failure, MRSA pneumonia, Pseudomonas UTI, MRSA bacteremia, sacral ulcer, IDDM type II, hypertension, hyperlipidemia, vertebral osteomyelitis, acute pancreatitis, calculus cholelithiasis, MARGARETTE requiring hemodialysis in the past, and decubitus ulcers brought in by [facility] by the [facility] [place] with chief complaint of fever for past 2 days. As per nursing facility staff, the patient is nonverbal at baseline with GCS score is 5, and they provided a note to rule out sepsis. The patient was given 1 L of bolus normal saline in the ED, vancomycin and cefepime IV x 1, and he is MAP dropped down to less than 65, and was started on Levophed. The patient was admitted to ICU for further management of septic shock secondary to pneumonia and UTI. 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 As patient appears to be fluid overloaded, full 30 cc/kg body fluid was not given. - Levophed was restarted, taper down as tolerated - Midodrine 10mg TID was reduced to 5 mg TID to avoid masking shock etiologies - Continue on zosyn and vancomycin #Hypertension Currently in shock - Using Amlodipine 10mg every day and will Hold medications for now. #Hyperlipidemia - Resume home medication after reconciliation Pulmonology: #Possible acute on chronic hypoxic respiratory failure 2/2 #Healthcare associated pneumonia #S/p CVA The patient presented with fever, was found to have bilateral pneumonia on chest x-ray, the baseline oxygen requirement is unknown, but currently on FiO2 30% - Continue on mechanical ventilation through tracheostomy tube - Taper down oxygen requirement as needed - Antibiotics as per ID GI #S/p PEG tube - Resumed tube feeds - per florist's decorator recommendation Glucerna Renal # Hypervolemic hypoosmolar hyponatremia The patient presented with sodium of 117, but corrected sodium was 123 Likely in the setting of suspected prerenal MARGARETTE The patient received 1 L of normal saline in the ED for sepsis and 1 more bolus of LR is given in the ICU - Sodium check every 4 hourly, will make sure to calculate corrected sodium - Refinery Operator Visbreaking, Dr. Jensen is consulted and recommended to monitor sodium levels for now - Urine electrolytes pending - Patient received diuresis today with Lasix 40 mg IV x1 - Bicitra 30 ml BID #MARGARETTE Likely prerenal secondary to sepsis Presented with creatinine of 1.5, baseline creatinine about 0.7-0.8 Patient received 1 L of normal saline in the ED - Will continue to monitor renal panel - Renally dose medications and Avoid nephrotoxins - Refinery Operator Visbreaking, Dr. Jensen is consulted and will appreciate her recommendations #Non-anion gap metabolic acidosis #Lactic acidosis 2/2 sepsis, resolved - ikely due to septic shock causing MARGARETTE - Lactate at the time of admission is 2.1 which downtrended to 1, bicarb at the time of admission is 19.9 which is slowly improving -Will continue to monitor renal panel - Patient was given 1 extra liter of LR in the ICU followed by albumin Endocrinology: #Insulin-dependent diabetes mellitus type 2 - Started on insulin degludec 13 units daily at night - Sliding scale insulin lispro every 6 hourly with fingerstick blood sugar checks - A1c ordered - 10.5 Hematology: #Leukocytosis 2/2 sepsis Presented with white count of 28 - Daily a.m. labs for CBC - Treat the underlying cause sepsis #Microcytic anemia Likely 2/2 anemia of chronic disease, but could not rule out other differentials like nutritional deficiency - Iron panel, ferritin, folic acid, vitamin B12, reticulocyte count, peripheral smear and LDH ordered - showed iron deficiency - Will supplement iron once the infection is resolved - Daily a.m. labs for CBC ID #Septic shock 2/2 #Bilateral healthcare associated pneumonia Vs Severe UTI Chest x-ray revealed bilateral pneumonia, UA revealed UA revealed dark yellow urine, turbid, 2+ protein, 3+ blood, leukocyte esterase positive, RBC 1847, WBC 1892, urine bacteria none Patient received vancomycin and cefepime IV x 1 in the ED - Continue on vancomycin - Continue on Zosyn 3.375 q8h -Blood culture, sputum culture and urine culture pending Skin: #Multistage decubitus ulcer Patient has multi stages decubitus ulcer at buttock, and heels - Wound care consultation done MSK: #Contracted extremities 2/2 #Immobility - Physical therapy Health maintenance: Dispo: Patient admitted to ICU for further management of septic shock and hyponatremia Diet: G tube feeds Lines: Central line DVT prophylaxis: Subcu heparin every 8 hourly CODE STATUS: Full code, confirmed by at bedside Patient plan of care was discussed with the attending chief vendor quality, Dr. Felipe. Nella Hernandez, PGY-3 Attending Provider Attestation/Addendum Patient seen and examined with above resident, Nella Hernandez MD. I agree with the findings, assessment, and plan of care as document except for any differences below. Patient with ability to be weaned off of vasopressor support. Fluid challenge subsequently given however nephrology felt patient has significant volume overloaded and subsequently gave Lasix. Patient with hypervolemic hyponatremia. Continue empiric antibiotics for underlying infection likely secondary to urinary tract source, previous history of Pseudomonas, or alternatively pneumonia given chronic vent as suggested by chest film. Patient also have MRSA bacteremia and continues to be positive for MRSA, vancomycin can be resumed. Await culture data to help determine final source. Patient with central access in place due to difficulty with access. Patient unfortunately with worsening hypotension today and subsequently required insertion of vasopressors. His mentation seems to be returning to baseline. He remains on appropriate chronic ventilator settings. Continue to monitor closely in ICU given vasopressor requirements, plan to attempt to wean again overnight to reassess ability to downgrade. Patient has been taken off of midodrine to avoid masking underlying pathophysiology. Sodium to slowly correct over time. Total critical care time: I personally spent 45 minutes for review of physiologic parameters, directing plan of care throughout the day, coordination of care with other subspecialist, and counseling patient's at bedside. This is exclusive of time spent teaching and staff performing separate billable procedures. Patient remains at significant risk for further morbidity and mortality warranting close monitoring care only available in the ICU. Critical care services required for septic shock, healthcare associated pneumonia, catheter associated urinary tract infection, cardiac respiratory failure, acute renal failure, and acute encephalopathy.
[2025-04-28] MEDS: RINGERS LACTATED 1000 ML 1,000 ML 999 ML IV (08:55)
[2025-04-28] MEDS: POTASSIUM CHL 10 mEq IVPB 10 MEQ/100 ML BAG 100 MEQ IV ×4 (08:55→12:23)
[2025-04-28] MEDS: ASPIRIN 81 MG CHEW GT (09:02)
[2025-04-28 09:54] LABS: Sodium 120 mMol/L (136-145)
[2025-04-28] MEDS: CITRIC ACID/SODIUM CITR 15 ML UDC (BICITRA) 30 ML PO ×2 (10:05→20:29)
[2025-04-28] MEDS: HYDROmorphone INJ 2 MG/ML VIAL 0.5 MG IVP (10:27)
[2025-04-28] MEDS: VANCOMYCIN/WATER 1GM IVPB 200 ML IV (10:33)
--- NOTE | 2025-04-28 11:10 | PD.RESPRO ---
Documentation for date of: 04/28/25 Subjective Subjective Interval history: History per ICU h and p: Mr Sanchez is a 80-year-old male with significant past medical history of CVA s/p trach/PEG tube, chronic hypoxic respiratory failure, MRSA pneumonia, Pseudomonas UTI, MRSA bacteremia, sacral ulcer, IDDM type II, hypertension, hyperlipidemia, vertebral osteomyelitis, acute pancreatitis, calculus cholelithiasis, MARGARETTE requiring hemodialysis in the past, and decubitus ulcers brought in by [facility] by the [facility] [place] with chief complaint of fever for past 2 days. As per nursing facility staff, the patient is nonverbal at baseline with GCS score is 5, and they provided a note to rule out sepsis. The at bedside is a poor historian, and believe that the patient still interacts with her. Initially in the ED her vitals were BP 128/58, pulse 123, RR 29, temperature 100.9, saturating 100% on 40 L FiO2 via tracheostomy tube. Labs are significant for white count of 28.6, hemoglobin 8.2, MCV 74, platelet 368, ESR 102, D-dimer greater than 3820, ABG revealed pH 7.30, pCO2 41, sodium 117 with corrected sodium for hyperglycemia is 123, potassium 4.1, chloride 87, bicarb 19.9, anion gap 10, BUN/creatinine 36/1.5, GFR 47, blood sugar 299, lactic acid 2.2, magnesium 2.0, T. bili 1.8, direct bilirubin 1.4, AST/ALT/ALP 71/47/229, troponin less than 0.020, CRP greater than 10.0, BNP 138, albumin 3.2, Pro-Tevin 2.28, UA revealed dark yellow urine, turbid, 2+ protein, 3+ blood, leukocyte esterase positive, RBC 1847, WBC 1892, urine bacteria none. Chest x-ray revealed extensive bilateral pneumonia. PMH: As mentioned above SHX: Positive abdominal surgery, tracheostomy, gastrostomy and knee joint replacement Family history: Unobtainable Social history: He is , often comes to visit, others unobtainable Medications: To be reconciled Allergies: NYLA inhibitors, upper airway edema, ARB's for airway edema The patient was given 1 L of bolus normal saline in the ED, vancomycin and cefepime IV x 1, and he is MAP dropped down to less than 65, and was started on Levophed. The patient was admitted to ICU for further management of septic shock secondary to pneumonia and UTI. 04/27/2025: pt admitted to ICU, Nephrology consulted patient seen and examined in ICU pt on pressors, pt is unresponsive to voice and pain, Pupils are fixed and non responsive to light. pt has sacral wounds being examined by wound nurse divya. pt appears hypervolemic on exam, BLE edematous. ICU managing fluids, Na 118, Cl 88, hco3 17, BUN 35, Cr 1.6, Serum Osm 257 UA with 2+ protein 3+ blood. Urine looks concentrated suspect hypervolemia hyponatremia, reccomend diuretics and albumin 04/28/2025: patient seen and examined in the ICU. Pt opens eyes spontaneously. appears hypervolemic on exam with ELE and ELE with significant edema, ICU managing fluids, Na 120, K 3.7 Cl 88, CO2 17, BUN 42 from 35,Cr 1.8 from 1.6. suspect hypervolemic hyponatremia, reccomend trial of 40 IV lasix and IV albumin, bicitra, procrit epogen 10 000 Exam Vital Signs Temp Pulse Resp BP Pulse Ox O2 Del Method FiO2 97.2 F 72 21 H 103/62 97 Trach Collar 25 04/28/25 08:00 04/28/25 08:00 04/28/25 08:00 04/28/25 08:00 04/28/25 08:00 04/27/25 20:00 04/28/25 08:00 Narrative Exam General: No acute distress, comatose, opening eyes spontaneously per nursing facilityGCS of 5 at baseline HEENT: Moist mucous membranes, oropharynx not assessed Neck: trach in place midline CVS: regular rate and rythm, +murmor , rubs or gallops Lungs: Mild rhonchi throughout the lung field, no wheezing, crackles or decreased breath sounds Abd: Soft, NT, slightly distended, +BS, epigastric peg tube in place with no errythema crusting or drainage around tube. : german in place Ext: diffuse edema of upper and 1+ pitting of the lower extrem, warm and well perfused, bilateral femoral lines Skin: Multiple stages of decubitus ulcers on buttoks and sacrum , L heel with 3cm bruise violacious Psych: Unobtainable Objective Labs 04/30/25 05:25 04/30/25 05:25 Labs: Laboratory Results - last 24 hr 04/27/25 04/27/25 04/27/25 01:21 10:38 12:15 WBC RBC Hgb Hct MCV MCH MCHC RDW Std Deviation Plt Count Neut % (Auto) Lymph % (Auto) [place] % (Auto) Eos % (Auto) Baso % (Auto) Neut # (Auto) Lymph # (Auto) [place] # (Auto) Eos # (Auto) Baso # (Auto) Immature Gran # (Auto) Absolute Nucleated RBC Immature Gran % Nucleated RBC % PT INR Puncture Site Arterial Line ABG pH 7.28 L ABG pCO2 39 ABG pO2 135 H D ABG HCO3 18 L ABG O2 Saturation 100 H ABG Base Excess -8 L FiO2 100 Sodium 118 L* Potassium 4.4 Chloride 88 L Carbon Dioxide 17.7 L Anion Gap 12 BUN 35 H Creatinine 1.6 H Estim Creat Clear Calc 50.9 L eGFR 44 L BUN/Creatinine Ratio 22 H Glucose 288 H Calculated Osmolality 257 L Lactic Acid 1.0 Calcium 8.7 Corrected Calcium 9.4 Phosphorus Total Bilirubin 1.5 H AST 48 H ALT 38 Alkaline Phosphatase 213 H Total Protein 6.8 Albumin 3.1 L Globulin 3.7 H Albumin/Globulin Ratio 0.8 L Stl C. diff Tox B Gene Negative Blood Type Antibody Screen Crossmatch Blood Bank Wristband ID 04/27/25 04/27/25 04/28/25 18:06 21:03 01:44 WBC RBC Hgb Hct MCV MCH MCHC RDW Std Deviation Plt Count Neut % (Auto) Lymph % (Auto) [place] % (Auto) Eos % (Auto) Baso % (Auto) Neut # (Auto) Lymph # (Auto) [place] # (Auto) Eos # (Auto) Baso # (Auto) Immature Gran # (Auto) Absolute Nucleated RBC Immature Gran % Nucleated RBC % PT INR Puncture Site ABG pH ABG pCO2 ABG pO2 ABG HCO3 ABG O2 Saturation ABG Base Excess FiO2 Sodium 119 L* 120 L 120 L Potassium 4.0 Chloride 88 L Carbon Dioxide 18.6 L Anion Gap 12 BUN 36 H Creatinine 1.6 H Estim Creat Clear Calc 50.9 L eGFR 44 L BUN/Creatinine Ratio 23 H Glucose 238 H D Calculated Osmolality 256 L Lactic Acid Calcium 8.7 Corrected Calcium 9.3 Phosphorus 4.2 Total Bilirubin AST ALT Alkaline Phosphatase Total Protein Albumin 3.2 L Globulin Albumin/Globulin Ratio Stl C. diff Tox B Gene Blood Type Antibody Screen [employer] Blood Bank Wristband ID 04/28/25 04/28/25 04/28/25 04:10 04:39 05:51 WBC 20.9 H D RBC 2.68 L Hgb 6.4 L* D 6.4 L* Hct 19.3 L* 19.7 L* MCV 72 L MCH 23.9 L MCHC 33.2 RDW Std Deviation 47.7 H Plt Count 307 D Neut % (Auto) 90 H Lymph % (Auto) 2 L [place] % (Auto) 4 Eos % (Auto) 2 Baso % (Auto) 0 Neut # (Auto) 18.8 H Lymph # (Auto) 0.4 L [place] # (Auto) 0.9 H Eos # (Auto) 0.4 Baso # (Auto) 0.0 Immature Gran # (Auto) 0.29 H Absolute Nucleated RBC 0.03 H Immature Gran % 1 H Nucleated RBC % 0 PT 13.5 H INR 1.3 Puncture Site Arterial Line ABG pH 7.34 L ABG pCO2 36 ABG pO2 111 H D ABG HCO3 19 L ABG O2 Saturation 99 H ABG Base Excess -6 L FiO2 25 Sodium 120 L Potassium 3.4 D Chloride 89 L Carbon Dioxide 18.3 L Anion Gap 13 BUN 43 H Creatinine 1.8 H Estim Creat Clear Calc 45.3 L eGFR 38 L BUN/Creatinine Ratio 24 H Glucose 186 H D Calculated Osmolality 258 L Lactic Acid Calcium 8.8 Corrected Calcium 9.6 Phosphorus Total Bilirubin 0.6 D AST 29 ALT 26 Alkaline Phosphatase 170 H D Total Protein 6.1 Albumin 3.0 L Globulin 3.1 Albumin/Globulin Ratio 1.0 L Stl C. diff Tox B Gene Blood Type Antibody Screen [employer] Blood Bank Wristband ID 04/28/25 04/28/25 07:39 09:20 WBC RBC Hgb Hct MCV MCH MCHC RDW Std Deviation Plt Count Neut % (Auto) Lymph % (Auto) [place] % (Auto) Eos % (Auto) Baso % (Auto) Neut # (Auto) Lymph # (Auto) [place] # (Auto) Eos # (Auto) Baso # (Auto) Immature Gran # (Auto) Absolute Nucleated RBC Immature Gran % Nucleated RBC % PT INR Puncture Site ABG pH ABG pCO2 ABG pO2 ABG HCO3 ABG O2 Saturation ABG Base Excess FiO2 Sodium 120 L Potassium Chloride Carbon Dioxide Anion Gap BUN Creatinine Estim Creat Clear Calc eGFR BUN/Creatinine Ratio Glucose Calculated Osmolality Lactic Acid Calcium Corrected Calcium Phosphorus Total Bilirubin AST ALT Alkaline Phosphatase Total Protein Albumin Globulin Albumin/Globulin Ratio Stl C. diff Tox B Gene Blood Type O Positive Antibody Screen NEGATIVE Crossmatch See Detail Blood Bank Wristband ID Yes ABG Interpretation ABG results: 04/27/25 04/27/25 04/27/25 02:12 07:39 09:19 ABG pH 7.30 L 7.18 L* D 7.24 L ABG pCO2 41 53 H D 44 ABG pO2 99 98 110 H ABG HCO3 20 20 19 L ABG O2 Saturation 98 98 99 H ABG Base Excess -6 L -9 L -8 L 04/27/25 04/28/25 12:15 04:10 ABG pH 7.28 L 7.34 L ABG pCO2 39 36 ABG pO2 135 H D 111 H D ABG HCO3 18 L 19 L ABG O2 Saturation 100 H 99 H ABG Base Excess -8 L -6 L Quality Measures Quality Measures none Advance care planning discussed with:: other Assessment & Plan Assessment Current Active Medications: Generic Name Dose Route Start Last Admin Trade Name Freq PRN Reason Stop Dose Admin Acetaminophen 650 mg 04/27/25 03:11 04/28/25 07:48 Acetaminophen 325 Mg Tablet PO 05/27/25 03:10 650 mg Q4HR PRN Administration PAIN SCALE 1-3 (mild Acetaminophen 650 mg 04/27/25 03:11 Acetaminophen Supp 650 Mg Supp WA 05/27/25 03:10 Q4HR PRN Pain Scale 1-3 and temp >100.4 Aspirin 81 mg 04/27/25 09:00 04/28/25 09:02 Aspirin 81 Mg Chew GT 05/27/25 08:59 81 mg QDAY IMANI Administration Citric Acid/Sodium Citrate 30 ml 04/28/25 10:00 04/28/25 10:05 Citric Acid/Sodium Citr 15 Ml Udc (Bicitra) PO 05/28/25 09:59 30 ml BID IMANI Administration Dextrose 25 ml 04/27/25 03:37 Dextrose 50%-Water Inj 50 Ml Syringe IV 05/27/25 03:36 Q15MIN PRN BG 50-70 responsive npo pt Dextrose 50 ml 04/27/25 03:37 Dextrose 50%-Water Inj 50 Ml Syringe IV 05/27/25 03:36 Q15MIN PRN BG <50 OR BG <70 & pt unresponsive Glucagon 1 mg 04/27/25 03:37 Glucagon Inj 1 Mg Vial IM Q15MIN PRN BG <70, and no IV access Heparin Sodium (Porcine) 5,000 unit 04/27/25 06:00 04/28/25 05:01 Heparin Sod Inj 5000 Unit/Ml Vial SC 05/11/25 05:59 5,000 unit Q8HR IMANI Administration Norepinephrine Bitartrate 16 mg in 250 mls @ 5.953 mls/hr 04/27/25 02:40 04/27/25 21:30 Levophed In Ns 16mg/250ml IV 05/27/25 02:39 0 mcg/kg/min .Q24H PRN 0 mls/hr PER PROTOCOL Titration Protocol 0.05 MCG/KG/MIN Vancomycin HCl 200 mls @ 120 mls/hr 04/27/25 22:00 04/28/25 10:33 Vancomycin/Water 1gm Ivpb IV 05/04/25 21:59 120 mls/hr BID@1000,2200 IMANI Administration Protocol Piperacillin/Tazobactam/Dextrose 3.375 gm in 50 mls @ 12.5 mls/hr 04/27/25 14:00 04/28/25 05:01 Zosyn IV 05/04/25 13:59 12.5 mls/hr Q8HR IMANI Administration Potassium Chloride 10 meq in 100 mls @ 100 mls/hr 04/28/25 07:56 04/28/25 10:06 Kcl Ivpb IV 04/28/25 11:55 100 mls/hr Q1H IMANI Administration Insulin Degludec 13 unit 04/27/25 21:00 04/27/25 20:23 Insulin Degludec 5 Unit/0.05 Ml (Per 5 Units) SC 05/27/25 20:59 13 unit HS IMANI Administration Insulin Human Lispro 0 unit 04/27/25 06:00 04/28/25 06:06 Insulin Lispro (Admelog) 1 Unit/0.01 Ml Unit SC 05/27/25 05:59 1 unit Q6HR IMANI Administration Protocol Magnesium Hydroxide 30 ml 04/27/25 03:11 Milk Of Magnesia Susp 30 Ml Udc PO 05/27/25 03:10 QDAY PRN CONSTIPATION Midodrine 5 mg 04/28/25 14:00 Midodrine 5 Mg Tablet PO 05/28/25 13:59 TID IMANI Oxycodone/Acetaminophen 1 tab 04/27/25 18:29 Oxycodone/Apap 5/325 Tablet GT 05/02/25 18:28 Q6HR PRN Pain 7-10 Pharmacy Consult 1 each 04/27/25 09:00 Vancomycin Pharmacy To Dose 1 Each Each IV 05/27/25 08:59 QDAY PRN PROTOCOL Plan is a 80-year-old gentleman with hx of CVA s/p trach/PEG tube, chronic hypoxic respiratory failure, MRSA pneumonia, Pseudomonas UTI, MRSA bacteremia, sacral ulcer, IDDM type II (poorl controlled A1c 10.5), hypertension, hyperlipidemia, vertebral osteomyelitis, hx of MARGARETTE requiring hemodialysis in the past, whose baseline mental status is GCS 5, admitted to ICU for septic shock 2/2 PNA vs UTI, requiring pressors and hyponatremia, with minimal UOP 280 ccs, trial lasix and albumin given suspicion of hypervolemic hyponatremia. #moderate hyponatremia (Na 118, corrected Na 123) The patient presented with sodium of 117, but the corrected sodium was 123 (pt hyerglycemic to 288) The patient received 1 L of normal saline in the ED for sepsis and 1 L LR in the ICU Serum osm 257: hypernatremic, hypotonic, hypervolemic on exam: query CHF vs renal failure, vs cirrhosis vs nephrotic syndrome (UA with 2+ protein) on 04/28 Na 120, appears hypervolemic on exam BUE and BLE edematous. start bicitra given hco3 low may help correct hyponatremia - IV albumin - IV lasix 40mg - Sodium checks per primary team #MARGARETTE Likely prerenal secondary to sepsis Presented with creatinine of 1.5, baseline creatinine about 0.7-0.8 Patient received 1 L of normal saline in the ED, given c/f worsening his hyponatremia, sepsis protocol resusitation was not initaited. 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 Due to concern of overcorrection of hyponatremia, full 30 cc/kg body fluid was not given. -1 L LR in icu. - Started on Levophed, managment per ICU #Bilateral healthcare associated pneumonia #Possible acute hypoxic respiratory failure 2/2 #query aspiration pneumonia #Severe UTI -on abx -german in place, pt had reportedly pulled out german catheter at nursing facilty, blood noted at the urethral meatus. -Blood culture, sputum culture and urine culture pending #Chronic respiratory failure 2/2 #S/p CVA mech ventilation per trach tube, #transaminitis #Diarrhea - pending cdiff r/o #nutrition per peg tube #acute hgb drop #Microcytic anemia -query dilutional given decrease in other cell lines, - give procrit 10 000 - iron deficiency, iron studies low, retic count elevated. #Non-anion gap metabolic acidosis #Insulin-dependent diabetes mellitus type 2 - A1c 10.5 #Multistage decubitus ulcer #HTN #HLD - managment per primary team Plan discussed with nephrology attending Dr. Camila Conner MD Internal Medicine PGY-1 Attending Provider Attestation/Addendum Patient seen and examined with resident physician Dr. Conner. Note reviewed, agree with findings and recommendations. Spoke to -- Patient with hypervolemic hyponatremia. Did receive 1 liter IV fluid. Patient basically bedbound with status post trach and PEG for the last 5 years. Hold free water flushes for now. Medications and labs reviewed. Will monitor serum sodium closely. Hold off on 3% hypertonic saline. Plan of care discussed with ICU team. Clinically patient looks edematous-will give 1 dose of Lasix. Albumin ordered. Hemoglobin dropped to 6.4-2 units of blood transfusion ordered. No evidence of any active GI bleed. White count 20.9-probably related to aspiration pneumonia. Creatinine tad elevated at 1.8 albumin 3.0-will be replaced urinalysis shows significant pyuria. On antibiotics.
[2025-04-28] MEDS: EPOETIN ALFA-EPBX INJ 10,000 UNIT/ML VIAL (NON-ESRD) 10000 UNIT SC (11:26)
[2025-04-28] MEDS: Norepinephrine/D5W 8mg/250ml 8 MG/250 ML BAG 11.522 MG IV (12:52)
[2025-04-28] MEDS: MIDODRINE 5 MG TABLET PO (13:50)
[2025-04-28] MEDS: FUROSEMIDE INJ 10 MG/ML 4ML VIAL 40 MG IVP (14:52)
[2025-04-28] MEDS: ALBUMIN HUMAN 25% IVPB 25 GM/100 ML BTL IV ×2 (14:52→20:41)
[2025-04-28 16:47] LABS: Hematocrit 24.6 % (41.0-53.0)
[2025-04-28 17:05] LABS: Albumin, Serum 3.2 gm/dL (3.4-4.8); Anion Gap 15 (7-16); BUN/Creatinine Ratio 23 Ratio (12-20); Blood Urea Nitrogen 42 mg/dL (9-23); Calcium 8.8 mg/dL (8.3-10.6); Calcium (Corrected) 9.4 mg/dL (8.5-10.1); Carbon Dioxide 16.9 mMol/L (20.0-31.0); Chloride 88 mMol/L (98-107); Creatinine (Component) 1.8 mg/dL (0.6-1.3); Estimated Creatinine Clearance 44.5 mL/min (>60); Glucose 210 mg/dL (74-106); Magnesium 2.1 mg/dL (1.6-2.6); Osmolality,Calculated 258 (275-295); Phosphorous 4.0 mg/dL (2.4-5.1); Potassium 3.7 mMol/L (3.4-5.1); Sodium 120 mMol/L (136-145); eGFR 38 See Note
[2025-04-28 17:07] LABS: Hemoglobin 8.1 g/dL (13.5-16.0)
[2025-04-28 17:15] LABS: Sodium 120 mMol/L (136-145)
[2025-04-28] MEDS: INSULIN DEGLUDEC 5 UNIT/0.05 ML (PER 5 UNITS) 13 UNIT SC (20:46)
[2025-04-28] MEDS: MUPIROCIN OINT 2% 15 GM TUBE TOP (21:25)
[2025-04-28 21:40] LABS: Vancomycin,Trough 28.0 mcg/mL (5.0-10.0)
[2025-04-29] VITALS (93 sets, daily range): BP systolic 76–156; BP diastolic 47–83; PULSE 77–96; RESP 19–36; TEMP 36.2–36.9; O2SAT 95–100; BMI 38.2
[2025-04-29] MEDS: INSULIN LISPRO (AdmeLOG) 1 UNIT/0.01 ML UNIT SC ×5 (00:05→23:52)
[2025-04-29 02:21] LABS: Chloride,Urine Random < 20.0 mMol/L (55.0-125.0); Creatinine,Random Urine 53 mg/dL (30-125); Potassium,Urine Random 26 mMol/L (12-62); Protein Total, Random Urine 115 mg/dL (1-14); Sodium,Urine Random 18.6 mMol/L (20.0-110.0)
[2025-04-29 03:23] LABS: Basophils # (Auto) 0.1 Thou/mm3 (0.0-0.2); Basophils % (Auto) 0 % (0-2.5); Eosinophils # (Auto) 2.0 Thou/mm3 (0.0-0.5); Eosinophils % (Auto) 6 % (0-10); Hematocrit 22.6 % (41.0-53.0); Immature Granulocytes Auto 0.42 Thou/mm3 (0.00-0.00); Lymphocytes # (Auto) 0.5 Thou/mm3 (1.0-4.8); Lymphocytes % (Auto) 2 % (10-50); Mean Corpuscular HGB Conc 33.2 g/dl (31.0-37.0); Mean Corpuscular Hemoglobin 24.8 pg (25.0-35.0); Mean Corpuscular Volume 75 fL (80-100); Monocytes # (Auto) 0.9 Thou/mm3 (0.0-0.8); Monocytes % (Auto) 3 % (0-12); Neutrophils # (Auto) 27.9 Thou/mm3 (1.8-7.7); Neutrophils % (Auto) 88 % (37-80); Nucleated Red Blood Cell # 0.06 Thou/mm3 (0.00-0.00); Nucleated Red Blood Cell % 0 /100 WBC (0); Platelet Count 318 Thou/mm3 (140-440); RDW Standard Deviation 51.8 fL (35.1-43.9); Red Blood Count 3.03 Miln/mm3 (4.50-5.90); White Blood Count 31.8 Thou/mm3 (3.8-10.6)
[2025-04-29 03:30] LABS: Hemoglobin 7.5 g/dL (13.5-16.0)
[2025-04-29 03:42] LABS: Alanine Aminotransferase 21 U/L (10-49); Albumin, Serum 3.3 gm/dL (3.4-4.8); Albumin/Globulin Ratio 1.1 (1.2-2.2); Alkaline Phosphatase 169 U/L (46-116); Anion Gap 14 (7-16); Aspartate Amino Transferase 30 U/L (0-34); BUN/Creatinine Ratio 23 Ratio (12-20); Bilirubin,Total 0.9 mg/dL (0.3-1.2); Blood Urea Nitrogen 43 mg/dL (9-23); Calcium 8.9 mg/dL (8.3-10.6); Calcium (Corrected) 9.5 mg/dL (8.5-10.1); Carbon Dioxide 19.0 mMol/L (20.0-31.0); Chloride 88 mMol/L (98-107); Creatinine (Component) 1.9 mg/dL (0.6-1.3); Estimated Creatinine Clearance 42.1 mL/min (>60); Globulin 3.0 gm/dL (2.3-3.5); Glucose 229 mg/dL (74-106); Osmolality,Calculated 261 (275-295); Potassium 3.8 mMol/L (3.4-5.1); Sodium 121 mMol/L (136-145); Total Protein 6.3 gm/dL (5.7-8.2); eGFR 36 See Note
[2025-04-29] MEDS: PIPER/TAZO 3.375 GM PREMIX 3.375 GM/50 ML BAG IV (05:09)
[2025-04-29] MEDS: MIDODRINE 5 MG TABLET PO ×3 (05:10→21:08)
[2025-04-29] MEDS: MUPIROCIN OINT 2% 15 GM TUBE TOP ×3 (05:11→21:26)
[2025-04-29] MEDS: HEPARIN SOD INJ 5000 UNIT/ML VIAL SC ×2 (05:11→21:18)
[2025-04-29] MEDS: CITRIC ACID/SODIUM CITR 15 ML UDC (BICITRA) 30 ML PO ×2 (09:03→20:35)
[2025-04-29] MEDS: ASPIRIN 81 MG CHEW GT (09:03)
[2025-04-29] MEDS: ALBUMIN HUMAN 25% IVPB 25 GM/100 ML BTL IV (09:04)
--- NOTE | 2025-04-29 12:20 | ESPR_ITS ---
Documentation for date of: 04/29/25 Subjective Subjective Interval history: History per ICU h and p: Mr Sanchez is a 80-year-old male with significant past medical history of CVA s/p trach/PEG tube, chronic hypoxic respiratory failure, MRSA pneumonia, Pseudomonas UTI, MRSA bacteremia, sacral ulcer, IDDM type II, hypertension, hyperlipidemia, vertebral osteomyelitis, acute pancreatitis, calculus cholelithiasis, MARGARETTE requiring hemodialysis in the past, and decubitus ulcers brought in by [facility] by the [facility] [place] with chief complaint of fever for past 2 days. As per nursing facility staff, the patient is nonverbal at baseline with GCS score is 5, and they provided a note to rule out sepsis. The at bedside is a poor historian, and believe that the patient still interacts with her. Initially in the ED her vitals were BP 128/58, pulse 123, RR 29, temperature 100.9, saturating 100% on 40 L FiO2 via tracheostomy tube. Labs are significant for white count of 28.6, hemoglobin 8.2, MCV 74, platelet 368, ESR 102, D-dimer greater than 3820, ABG revealed pH 7.30, pCO2 41, sodium 117 with corrected sodium for hyperglycemia is 123, potassium 4.1, chloride 87, bicarb 19.9, anion gap 10, BUN/creatinine 36/1.5, GFR 47, blood sugar 299, lactic acid 2.2, magnesium 2.0, T. bili 1.8, direct bilirubin 1.4, AST/ALT/ALP 71/47/229, troponin less than 0.020, CRP greater than 10.0, BNP 138, albumin 3.2, Pro-Tevin 2.28, UA revealed dark yellow urine, turbid, 2+ protein, 3+ blood, leukocyte esterase positive, RBC 1847, WBC 1892, urine bacteria none. Chest x-ray revealed extensive bilateral pneumonia. PMH: As mentioned above SHX: Positive abdominal surgery, tracheostomy, gastrostomy and knee joint replacement Family history: Unobtainable Social history: He is , often comes to visit, others unobtainable Medications: To be reconciled Allergies: NYLA inhibitors, upper airway edema, ARB's for airway edema The patient was given 1 L of bolus normal saline in the ED, vancomycin and cefepime IV x 1, and he is MAP dropped down to less than 65, and was started on Levophed. The patient was admitted to ICU for further management of septic shock secondary to pneumonia and UTI. 04/27/2025: pt admitted to ICU, Nephrology consulted patient seen and examined in ICU pt on pressors, pt is unresponsive to voice and pain, Pupils are fixed and non responsive to light. pt has sacral wounds being examined by wound nurse divya. pt appears hypervolemic on exam, BLE edematous. ICU managing fluids, Na 118, Cl 88, hco3 17, BUN 35, Cr 1.6, Serum Osm 257 UA with 2+ protein 3+ blood. Urine looks concentrated suspect hypervolemia hyponatremia, reccomend diuretics and albumin 04/28/2025: patient seen and examined in the ICU. Pt opens eyes spontaneously. appears hypervolemic on exam with ELE and ELE with significant edema, ICU managing fluids, Na 120, K 3.7 Cl 88, CO2 17, BUN 42 from 35,Cr 1.8 from 1.6. suspect hypervolemic hyponatremia, reccomend trial of 40 IV lasix and IV albumin, bicitra, procrit epogen 10 000 04/29/2025: Patient examined at bedside in the ICU, remains bedbound on blood pressure support via trach. GCS 4T, patient is not following any commands at this time but does open eyes spontaneously. Hyponatremia improving slowly, will start salt tabs at this time and monitor sodium closely. Patient was given IV Lasix yesterday, with minimal improvement. He still appears significantly fluid overloaded, will give albumin for now. Exam Vital Signs Temp Pulse Resp BP Pulse Ox O2 Del Method FiO2 98.5 F 82 31 H 95/55 L 99 Mechanical Ventilation 30 04/29/25 08:00 04/29/25 11:30 04/29/25 11:30 04/29/25 11:30 04/29/25 11:30 04/29/25 06:00 04/29/25 08:00 Narrative Exam Constitutional Opening eyes spontaneously. GCS 4T Per [facility] baseline GCS of 5T HEENT Vision grossly intact, PERRL. Patent nares. Trachea midline. Chronic tracheostomy x 5 years Respiratory Chest normal on inspection and clear to auscultation bilaterally. Cardiovascular S1 and S2 audible, RRR. No murmurs or carotid bruit. No gross JVD. Abdominal Soft and BS + ; non tender to palpation in all quadrants. Genitourinary Normal to palpation. German in place Musculoskeletal Extremities tone within normal limits. No LE edema. Neurological CN II - XII grossly intact. Extremity motor and sensation grossly intact. Skin Warm, dry and intact. No apparent lesions. Bilateral femoral lines Decubitus ulcers on buttoks and sacrum , L heel with 3cm bruise violacious Objective Labs 04/30/25 05:25 04/30/25 05:25 Labs: Laboratory Results - last 24 hr 04/28/25 04/28/25 04/28/25 07:39 16:18 16:18 WBC RBC Hgb 8.1 L D Hct 24.6 L MCV MCH MCHC RDW Std Deviation Plt Count Neut % (Auto) Lymph % (Auto) [place] % (Auto) Eos % (Auto) Baso % (Auto) Neut # (Auto) Lymph # (Auto) [place] # (Auto) Eos # (Auto) Baso # (Auto) Immature Gran # (Auto) Absolute Nucleated RBC Immature Gran % Nucleated RBC % Sodium 120 L 120 L Potassium 3.7 Chloride 88 L Carbon Dioxide 16.9 L Anion Gap 15 BUN 42 H Creatinine 1.8 H Estim Creat Clear Calc 44.5 L eGFR 38 L BUN/Creatinine Ratio 23 H Glucose 210 H Calculated Osmolality 258 L Calcium 8.8 Corrected Calcium 9.4 Phosphorus 4.0 Magnesium 2.1 Total Bilirubin AST ALT Alkaline Phosphatase Total Protein Albumin 3.2 L Globulin Albumin/Globulin Ratio Ur Random Creatinine U Random Total Protein Ur Random Sodium Ur Random Potassium Ur Random Chloride Vancomycin Trough Blood Type O Positive Antibody Screen NEGATIVE Crossmatch See Detail Blood Bank Wristband ID Yes 04/28/25 04/29/25 04/29/25 20:25 01:33 02:59 WBC 31.8 H D RBC 3.03 L Hgb 7.5 L Hct 22.6 L MCV 75 L MCH 24.8 L MCHC 33.2 RDW Std Deviation 51.8 H Plt Count 318 Neut % (Auto) 88 H Lymph % (Auto) 2 L [place] % (Auto) 3 Eos % (Auto) 6 Baso % (Auto) 0 Neut # (Auto) 27.9 H Lymph # (Auto) 0.5 L [place] # (Auto) 0.9 H Eos # (Auto) 2.0 H Baso # (Auto) 0.1 Immature Gran # (Auto) 0.42 H Absolute Nucleated RBC 0.06 H Immature Gran % 1 H Nucleated RBC % 0 Sodium 121 L Potassium 3.8 Chloride 88 L Carbon Dioxide 19.0 L Anion Gap 14 BUN 43 H Creatinine 1.9 H Estim Creat Clear Calc 42.1 L eGFR 36 L BUN/Creatinine Ratio 23 H Glucose 229 H Calculated Osmolality 261 L Calcium 8.9 Corrected Calcium 9.5 Phosphorus Magnesium Total Bilirubin 0.9 AST 30 ALT 21 Alkaline Phosphatase 169 H Total Protein 6.3 Albumin 3.3 L Globulin 3.0 Albumin/Globulin Ratio 1.1 L Ur Random Creatinine 53 U Random Total Protein 115 H Ur Random Sodium 18.6 L Ur Random Potassium 26 Ur Random Chloride < 20.0 L Vancomycin Trough 28.0 H* Blood Type Antibody Screen Crossmatch Blood Bank Wristband ID ABG Interpretation ABG results: 04/27/25 04/27/25 04/27/25 02:12 07:39 09:19 ABG pH 7.30 L 7.18 L* D 7.24 L ABG pCO2 41 53 H D 44 ABG pO2 99 98 110 H ABG HCO3 20 20 19 L ABG O2 Saturation 98 98 99 H ABG Base Excess -6 L -9 L -8 L 04/27/25 04/28/25 12:15 04:10 ABG pH 7.28 L 7.34 L ABG pCO2 39 36 ABG pO2 135 H D 111 H D ABG HCO3 18 L 19 L ABG O2 Saturation 100 H 99 H ABG Base Excess -8 L -6 L Quality Measures Quality Measures none Advance care planning discussed with:: patient Assessment & Plan Assessment Current Active Medications: Generic Name Dose Route Start Last Admin Trade Name Freq PRN Reason Stop Dose Admin Acetaminophen 650 mg 04/27/25 03:11 04/28/25 07:48 Acetaminophen 325 Mg Tablet PO 05/27/25 03:10 650 mg Q4HR PRN Administration PAIN SCALE 1-3 (mild Acetaminophen 650 mg 04/27/25 03:11 Acetaminophen Supp 650 Mg Supp WA 05/27/25 03:10 Q4HR PRN Pain Scale 1-3 and temp >100.4 Aspirin 81 mg 04/27/25 09:00 04/29/25 09:03 Aspirin 81 Mg Chew GT 05/27/25 08:59 81 mg QDAY IMANI Administration Citric Acid/Sodium Citrate 30 ml 04/28/25 10:00 04/29/25 09:03 Citric Acid/Sodium Citr 15 Ml Udc (Bicitra) PO 05/28/25 09:59 30 ml BID IMANI Administration Dextrose 25 ml 04/27/25 03:37 Dextrose 50%-Water Inj 50 Ml Syringe IV 05/27/25 03:36 Q15MIN PRN BG 50-70 responsive npo pt Dextrose 50 ml 04/27/25 03:37 Dextrose 50%-Water Inj 50 Ml Syringe IV 05/27/25 03:36 Q15MIN PRN BG <50 OR BG <70 & pt unresponsive Glucagon 1 mg 04/27/25 03:37 Glucagon Inj 1 Mg Vial IM Q15MIN PRN BG <70, and no IV access Heparin Sodium (Porcine) 5,000 unit 04/27/25 06:00 04/29/25 05:11 Heparin Sod Inj 5000 Unit/Ml Vial SC 05/11/25 05:59 5,000 unit Q8HR IMANI Administration Piperacillin/Tazobactam/Dextrose 3.375 gm in 50 mls @ 12.5 mls/hr 04/27/25 14:00 04/29/25 05:09 Zosyn IV 05/04/25 13:59 12.5 mls/hr Q8HR IMANI Administration Norepinephrine/Dextrose 8 mg in 250 mls @ 11.522 mls/hr 04/28/25 12:43 04/29/25 09:29 Levophed In D5w 8mg/250ml IV 05/28/25 12:42 0.05 mcg/kg/min .[id number] PRN 11.522 mls/hr PER PROTOCOL Titration Protocol 0.05 MCG/KG/MIN Albumin Human 25 gm in 100 mls @ 100 mls/hr 04/28/25 14:30 04/29/25 09:04 Albuminar-25 Ivpb IV 05/01/25 14:29 100 mls/hr BID IMANI Administration Insulin Degludec 18 unit 04/29/25 21:00 Insulin Degludec 5 Unit/0.05 Ml (Per 5 Units) SC 05/29/25 20:59 HS IMANI Insulin Human Lispro 0 unit 04/27/25 06:00 04/29/25 05:16 Insulin Lispro (Admelog) 1 Unit/0.01 Ml Unit SC 05/27/25 05:59 2 unit Q6HR IMANI Administration Protocol Magnesium Hydroxide 30 ml 04/27/25 03:11 Milk Of Magnesia Susp 30 Ml Udc PO 05/27/25 03:10 QDAY PRN CONSTIPATION Metoclopramide HCl 5 mg 04/29/25 12:00 Metoclopramide Inj 5 Mg/Ml Vial 2 Ml IVP 05/29/25 11:59 Q6HR IMANI Protocol Midodrine 5 mg 04/28/25 14:00 04/29/25 05:10 Midodrine 5 Mg Tablet PO 05/28/25 13:59 5 mg TID IMANI Administration Mupirocin 0 gm 04/28/25 22:00 04/29/25 05:11 Mupirocin Oint 2% 15 Gm Tube TOP 05/05/25 21:59 1 applicatio TID IMANI Administration Oxycodone/Acetaminophen 1 tab 04/27/25 18:29 Oxycodone/Apap 5/325 Tablet GT 05/02/25 18:28 Q6HR PRN Pain 7-10 Pharmacy Consult 1 each 04/27/25 09:00 Vancomycin Pharmacy To Dose 1 Each Each IV 05/27/25 08:59 QDAY PRN PROTOCOL Plan Mr Sanchez is a 80-year-old gentleman with hx of CVA s/p trach/PEG tube, chronic hypoxic respiratory failure, MRSA pneumonia, Pseudomonas UTI, MRSA bacteremia, sacral ulcer, IDDM type II (poorl controlled A1c 10.5), hypertension, hyperlipidemia, vertebral osteomyelitis, hx of MARGARETTE requiring hemodialysis in the past, whose baseline mental status is GCS 5, admitted to ICU for septic shock 2/2 PNA vs UTI, requiring pressors and hyponatremia, with minimal UOP 280 ccs, trial lasix and albumin given suspicion of hypervolemic hyponatremia. Hypervolemic hyponatremia The patient presented with sodium of 117, but the corrected sodium was 123 (pt hyerglycemic to 288) The patient received 1 L of normal saline in the ED for sepsis and 1 L LR in the ICU Serum osm 257: hypernatremic, hypotonic, hypervolemic on exam: query CHF vs renal failure, vs cirrhosis vs nephrotic syndrome (UA with 2+ protein) - Was given IV lasix 40mg x1 in 04/28 with minimal improvement - 04/29: Na 120 -> 121 , appears hypervolemic on exam BUE and BLE edematous. Plan: - Continue IV Albumin 25mg IV BID - Hyponatremia improving slowly, will start salt tabs at this time and monitor sodium closely. - was given IV Lasix yesterday, with minimal improvement. - On Bicitra given HCO3 low may help correct hyponatremia - Sodium checks per primary team MARGARETTE Likely prerenal secondary to sepsis Presented with creatinine of 1.5, baseline creatinine about 0.7-0.8 Patient received 1 L of normal saline in the ED, given c/f worsening his hyponatremia, sepsis protocol resusitation was not initaited. 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 Due to concern of overcorrection of hyponatremia, full 30 cc/kg body fluid was not given. - 1 L LR in icu. - Started on Levophed, managment per ICU Bilateral healthcare associated pneumonia Possible acute hypoxic respiratory failure 2/2 query aspiration pneumonia Severe UTI -on abx -german in place, pt had reportedly pulled out german catheter at nursing facilty, blood noted at the urethral meatus. -Blood culture, sputum culture and urine culture pending Chronic respiratory failure 2/2 S/p CVA mech ventilation per trach tube, Transaminitis Diarrhea - pending cdiff r/o Nutrition per peg tube Acute hgb drop Microcytic anemia -query dilutional given decrease in other cell lines, - give procrit 10 000 - iron deficiency, iron studies low, retic count elevated. Non-anion gap metabolic acidosis Insulin-dependent diabetes mellitus type 2 - A1c 10.5 Multistage decubitus ulcer HTN HLD - managment per primary team Plan discussed with nephrology attending Dr. Camila Bianchi M.D. PGY 3 Disclaimer: Minor errors in goal umpire may be present as this note was dictated using voice recognition software. Attending Provider Attestation/Addendum Patient seen and examined with resident physician Dr. Conner. Note reviewed, agree with findings and recommendations. Spoke to -- Patient with hypervolemic hyponatremia. Did receive 1 liter IV fluid. Patient basically bedbound with status post trach and PEG for the last 5 years. Hold free water flushes for now. Medications and labs reviewed. Will monitor serum sodium closely. Hold off on 3% hypertonic saline. Plan of care discussed with ICU team. Clinically patient looks edematous-will give 1 dose of Lasix. Albumin ordered. Hemoglobin dropped to 6.4-2 units of blood transfusion ordered. No evidence of any active GI bleed. White count 32-probably related to aspiration pneumonia. Creatinine tad elevated at 1.8 albumin 3.0-will be replaced urinalysis shows significant pyuria. On antibiotics. Thank you Matteo for allowing me to participate in the care of Mr. Sanchez
[2025-04-29 16:49] LABS: Lactate (Lactic Acid) 1.4 mMol/L (0.4-2.0)
--- NOTE | 2025-04-29 17:11 | PD.RESPRO ---
Documentation for date of: 04/29/25 Subjective Subjective Interval history: 04/27/2025: Patient is seen and examined at bedside in the ICU. Per patient's family and nursing facility, at baseline patient communicates with blinking, says yes or no but blinking once or twice respectively and receives pain medication, oxycodone as needed in the facility. Vitals are stable and patient is on low-dose Levophed 0.05 at the time of examination. On physical examination, patient is not responding even to painful stimuli and noted to have decubitus ulcer on the side and heel. Bilateral pupils are round, equal and reacting to light. Patient was given 1 more liter of bolus after coming to the ICU in view of suspected prerenal MARGARETTE due to shock. Also noted to have low albumin on CMP for which patient is given 25 g of albumin. Slowly patient noted to come off the vasopressors. Still appears to be hyponatremic which is slowly improving. Motorcycle Mechanic Apprentice, Dr. Palma is consulted and she recommended to continue to monitor sodium levels and no need of any active intervention. After coming to the ICU, patient noted to have improved urine output around 30 to 50 cc/h. As patient came off the vasopressors gradually, started on tube feeds. Will continue to monitor urine output, renal functions, sodium. ABG done this morning showed mild metabolic acidosis. 04/28/2025: Patient seen at bedside, mentation improved, was more interactive today, he opens both eyes and tracks, occasionally blinks in response to questions. Patient was off pressors this morning. Midodrine dose was decreased to avoid masking underlying shock. Due to the increasing creatinine, 1L LR was given for suspected prerenal MARGARETTE, urine output remains low at 365 ml in 24 hours. Discussed with Nephrology later on who felt that patient may be fluid overloaded instead and have hypervolemic hypernatremia, so trial of Lasix 40 mg IV x1 given in afternoon. Bicitra 20 ml BID also added. Patient got 2 doses of 25 gm albumin. Repeated renal panel did not show change in creatinine so far. Sodium remained steady at 120. Urine output slightly increased. However, patient started requiring pressors again as MAP dropped to 57. He remains on low dose norepinephrine at 0.03-0.05 range. MRSA screen was positive therefore mupirocin was added. 04/29/2025: Patient is seen and examined at bedside in the ICU. Appears to be at his baseline. Vital signs stable and patient is still on low-dose vasopressor. Labs done this morning showed WBC 31.8, sodium 121, creatinine 1.9. Noted to have good urine output overnight. As patient is still requiring vasopressors, suspected ongoing infection for which left femoral line and Abbott catheter was removed. Later patient was slowly weaned off the vasopressors and noted to have adequate MAP greater than 65 mmHg without the vasopressor need. Tried to place a peripheral line later in the day but unsuccessful as the patient had severe anasarca. PICC line placement is ordered for tomorrow morning. Will continue antibiotics and the rest of the medications through G-tube. Will continue to monitor renal functions. Exam Vital Signs Temp Pulse Resp BP Pulse Ox O2 Del Method FiO2 97.1 F 84 28 H 109/64 98 Mechanical Ventilation 30 04/29/25 12:00 04/29/25 14:33 04/29/25 13:00 04/29/25 14:33 04/29/25 14:33 04/29/25 06:00 04/29/25 14:33 Narrative Exam General: At his baseline. Spontaneously opening and blinking to give response. HEENT: Normocephalic, atraumatic, mucous membranes moist. Heart: Regular rate and rhythm, no murmurs. Lungs: Clear to auscultation with no wheezing or crackles. Abdomen: Soft, nondistended, nontender, positive bowel sounds. ?No guarding or rebound tenderness. Neurologic: At his baseline. Spontaneously opening and blinking to give response. Extremities: noted Anasarca Skin: No rash or ecchymoses. noted to have decubitus ulcers Objective Labs 05/01/25 05:38 05/01/25 05:38 Labs: Laboratory Results - last 24 hr 04/28/25 04/28/25 04/29/25 16:18 20:25 01:33 WBC RBC Hgb Hct MCV MCH MCHC RDW Std Deviation Plt Count Neut % (Auto) Lymph % (Auto) [place] % (Auto) Eos % (Auto) Baso % (Auto) Neut # (Auto) Lymph # (Auto) [place] # (Auto) Eos # (Auto) Baso # (Auto) Immature Gran # (Auto) Absolute Nucleated RBC Immature Gran % Nucleated RBC % Sodium 120 L Potassium Chloride Carbon Dioxide Anion Gap BUN Creatinine Estim Creat Clear Calc eGFR BUN/Creatinine Ratio Glucose Calculated Osmolality Lactic Acid Calcium Corrected Calcium Total Bilirubin AST ALT Alkaline Phosphatase Total Protein Albumin Globulin Albumin/Globulin Ratio Ur Random Creatinine 53 U Random Total Protein 115 H Ur Random Sodium 18.6 L Ur Random Potassium 26 Ur Random Chloride < 20.0 L Vancomycin Trough 28.0 H* 04/29/25 04/29/25 02:59 16:23 WBC 31.8 H D RBC 3.03 L Hgb 7.5 L Hct 22.6 L MCV 75 L MCH 24.8 L MCHC 33.2 RDW Std Deviation 51.8 H Plt Count 318 Neut % (Auto) 88 H Lymph % (Auto) 2 L [place] % (Auto) 3 Eos % (Auto) 6 Baso % (Auto) 0 Neut # (Auto) 27.9 H Lymph # (Auto) 0.5 L [place] # (Auto) 0.9 H Eos # (Auto) 2.0 H Baso # (Auto) 0.1 Immature Gran # (Auto) 0.42 H Absolute Nucleated RBC 0.06 H Immature Gran % 1 H Nucleated RBC % 0 Sodium 121 L Potassium 3.8 Chloride 88 L Carbon Dioxide 19.0 L Anion Gap 14 BUN 43 H Creatinine 1.9 H Estim Creat Clear Calc 42.1 L eGFR 36 L BUN/Creatinine Ratio 23 H Glucose 229 H Calculated Osmolality 261 L Lactic Acid 1.4 Calcium 8.9 Corrected Calcium 9.5 Total Bilirubin 0.9 AST 30 ALT 21 Alkaline Phosphatase 169 H Total Protein 6.3 Albumin 3.3 L Globulin 3.0 Albumin/Globulin Ratio 1.1 L Ur Random Creatinine U Random Total Protein Ur Random Sodium Ur Random Potassium Ur Random Chloride Vancomycin Trough ABG Interpretation ABG results: 04/27/25 04/27/25 04/27/25 02:12 07:39 09:19 ABG pH 7.30 L 7.18 L* D 7.24 L ABG pCO2 41 53 H D 44 ABG pO2 99 98 110 H ABG HCO3 20 20 19 L ABG O2 Saturation 98 98 99 H ABG Base Excess -6 L -9 L -8 L 04/27/25 04/28/25 12:15 04:10 ABG pH 7.28 L 7.34 L ABG pCO2 39 36 ABG pO2 135 H D 111 H D ABG HCO3 18 L 19 L ABG O2 Saturation 100 H 99 H ABG Base Excess -8 L -6 L Quality Measures Quality Measures none Advance care planning discussed with:: spouse and child Assessment & Plan Assessment Current Active Medications: Generic Name Dose Route Start Last Admin Trade Name Freq PRN Reason Stop Dose Admin Acetaminophen 650 mg 04/27/25 03:11 04/28/25 07:48 Acetaminophen 325 Mg Tablet PO 05/27/25 03:10 650 mg Q4HR PRN Administration PAIN SCALE 1-3 (mild Aspirin 81 mg 04/27/25 09:00 04/29/25 09:03 Aspirin 81 Mg Chew GT 05/27/25 08:59 81 mg QDAY IMANI Administration Citric Acid/Sodium Citrate 30 ml 04/28/25 10:00 04/29/25 09:03 Citric Acid/Sodium Citr 15 Ml Udc (Bicitra) PO 05/28/25 09:59 30 ml BID IMANI Administration Dextrose 25 ml 04/27/25 03:37 Dextrose 50%-Water Inj 50 Ml Syringe IV 05/27/25 03:36 Q15MIN PRN BG 50-70 responsive npo pt Dextrose 50 ml 04/27/25 03:37 Dextrose 50%-Water Inj 50 Ml Syringe IV 05/27/25 03:36 Q15MIN PRN BG <50 OR BG <70 & pt unresponsive Glucagon 1 mg 04/27/25 03:37 Glucagon Inj 1 Mg Vial IM Q15MIN PRN BG <70, and no IV access Heparin Sodium (Porcine) 5,000 unit 04/27/25 06:00 04/29/25 05:11 Heparin Sod Inj 5000 Unit/Ml Vial SC 05/11/25 05:59 5,000 unit Q8HR IMANI Administration Norepinephrine/Dextrose 8 mg in 250 mls @ 11.522 mls/hr 04/28/25 12:43 04/29/25 09:29 Levophed In D5w 8mg/250ml IV 05/28/25 12:42 0.05 mcg/kg/min .[id number] PRN 11.522 mls/hr PER PROTOCOL Titration Protocol 0.05 MCG/KG/MIN Albumin Human 25 gm in 100 mls @ 100 mls/hr 04/28/25 14:30 04/29/25 09:04 Albuminar-25 Ivpb IV 05/01/25 14:29 100 mls/hr BID IMANI Administration Insulin Degludec 18 unit 04/29/25 21:00 Insulin Degludec 5 Unit/0.05 Ml (Per 5 Units) SC 05/29/25 20:59 HS [facility] Insulin Human Lispro 0 unit 04/27/25 06:00 04/29/25 12:38 Insulin Lispro (Admelog) 1 Unit/0.01 Ml Unit SC 05/27/25 05:59 1 unit Q6HR IMANI Administration Protocol Levofloxacin 750 mg 04/29/25 15:30 Levofloxacin 250 Mg Tablet PO 05/06/25 15:29 Q48H [facility] Magnesium Hydroxide 30 ml 04/27/25 03:11 Milk Of Magnesia Susp 30 Ml Udc PO 05/27/25 03:10 QDAY PRN CONSTIPATION Metoclopramide HCl 5 mg 04/29/25 18:00 Metoclopramide Inj 5 Mg/Ml Vial 2 Ml PO 05/29/25 17:59 Q6HR [facility] Protocol Midodrine 5 mg 04/28/25 14:00 04/29/25 05:10 Midodrine 5 Mg Tablet PO 05/28/25 13:59 5 mg TID IMANI Administration Mupirocin 0 gm 04/28/25 22:00 04/29/25 05:11 Mupirocin Oint 2% 15 Gm Tube TOP 05/05/25 21:59 1 applicatio TID IMANI Administration Oxycodone/Acetaminophen 1 tab 04/27/25 18:29 Oxycodone/Apap 5/325 Tablet GT 05/02/25 18:28 Q6HR PRN Pain 7-10 Plan The patient is a 80-year-old male with significant past medical history of CVA s/p trach/PEG tube, chronic hypoxic respiratory failure, MRSA pneumonia, Pseudomonas UTI, MRSA bacteremia, sacral ulcer, IDDM type II, hypertension, hyperlipidemia, vertebral osteomyelitis, acute pancreatitis, calculus cholelithiasis, MARGARETTE requiring hemodialysis in the past, and decubitus ulcers brought in by [facility] by the [facility] [place] with chief complaint of fever for past 2 days. As per nursing facility staff, the patient is nonverbal at baseline with GCS score is 5, and they provided a note to rule out sepsis. The patient was given 1 L of bolus normal saline in the ED, vancomycin and cefepime IV x 1, and he is MAP dropped down to less than 65, and was started on Levophed. The patient was admitted to ICU for further management of septic shock secondary to pneumonia and UTI. 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 As patient appears to be fluid overloaded, full 30 cc/kg body fluid was not given. ECHO on 04/27 - Normal LV size and function. Estimated EF at 55 -60%%. Grade I diastolic dysfunction. Septum is flattened in systole and diastole D shaped LV consistent with right ventricular volume/pressure overload. Mildly increased. RV size. Normal RV function. Mild to moderate TR. estimated RVSP moderately elevated at 40-45 mm hg. - Started on Levophed, weaned off completely as of 04/27 - Midodrine 5mg TID as needed if MAP < 65 and SBP <100 - Started on zosyn and vancomycin ( 04/27 -04/29) and changed to Levofloxacin 750mg GT every 48th hrly( 04/29- # ?Right heart failure and moderate pulmonary hypertension - Patient appears to have anasarca, also noted to have mild hypoalbuminemia - Echo on 04/27 - showed right ventricular volume/pressure overload, mild to moderate TR, RVSP elevated at 40 to 45 mmHg. EF is 55 to 60% - Will require cardiac catheterization after discharge to categorize pulmonary hypertension and needs treatment accordingly. #Hypertension, well controlled - Using Amlodipine 10mg every day and will Hold medications for now. Pulmonology: #Possible acute on chronic hypoxic respiratory failure 2/ #Healthcare associated pneumonia #S/p CVA The patient presented with fever, was found to have bilateral pneumonia on chest x-ray, the baseline oxygen requirement is unknown, but currently on FiO2 30% - Continue on mechanical ventilation through tracheostomy tube - Will continue Antibiotics GI #S/p PEG tube - Resumed tube feeds Renal # Hyponatremia, resolving The patient presented with sodium of 117, but corrected sodium was 123 The patient received 1 L of normal saline in the ED for sepsis and 1 more bolus of LR is given in the ICU - Will continue to monitor sodium levels - Patient is started on salt tablets twice daily - Motorcycle Mechanic Apprentice, Dr. Jensen is consulted and will appreciate her recommendations. - Urine electrolytes was ordered #MARGARETTE Likely prerenal secondary to sepsis Presented with creatinine of 1.5, baseline creatinine about 0.7-0.8 Patient received 1 L of normal saline in the ED - Patient appears to produce adequate urine output as of now - Will continue to monitor renal panel - Renally dose medications and Avoid nephrotoxins - Motorcycle Mechanic Apprentice, Dr. Jensen is consulted and will appreciate her recommendations #Non-anion gap metabolic acidosis #Lactic acidosis 2/2 sepsis, resolved - ikely due to septic shock causing MARGARETTE - Lactate at the time of admission is 2.1 which downtrended to 1, bicarb at the time of admission is 19.9 which is slowly improving -Will continue to monitor renal panel Endocrinology: #Insulin-dependent diabetes mellitus type 2 - Started on insulin degludec 13 units daily at night, increase to 18 units based on blood sugars on morning labs - Sliding scale insulin lispro every 6 hourly with fingerstick blood sugar checks - A1c ordered - 10.5 Hematology: #Leukocytosis 2/2 sepsis Presented with white count of 28 - Daily a.m. labs for CBC - Treat the underlying cause sepsis #Microcytic anemia Likely 2/2 anemia of chronic disease, but could not rule out other differentials like nutritional deficiency - Iron panel, ferritin, folic acid, vitamin B12, reticulocyte count, peripheral smear and LDH ordered - showed iron deficiency - Will supplement iron once the infection is resolved - Daily a.m. labs for CBC ID #Septic shock, resolved 2/2 #Bilateral healthcare associated pneumonia Vs Severe UTI Chest x-ray revealed bilateral pneumonia, UA revealed UA revealed dark yellow urine, turbid, 2+ protein, 3+ blood, leukocyte esterase positive, RBC 1847, WBC 1892, urine bacteria none Patient received vancomycin and cefepime IV x 1 in the ED - Blood cultures and urine cultures showed no growth after 48 hours -Stopped vancomycin and Zosyn, started on levofloxacin 750 mg every 48 hourly through G-tube [04/29- Skin: #Multistage decubitus ulcer Patient has multi stages decubitus ulcer at buttock, and heels - Wound care consultation done MSK: #Contracted extremities 2/2 #Immobility - Physical therapy Health maintenance: Dispo: Patient admitted to ICU for further management of septic shock and hyponatremia Diet: G tube feeds DVT prophylaxis: Subcu heparin every 8 hourly CODE STATUS: Full code, confirmed by at bedside Patient plan of care was discussed with the [employer], Dr. Matteo Vigil, PGY2 Attending Provider Attestation/Addendum Patient seen and examined with above resident, Shayne Vigil MD. I agree with the findings, assessment, and plan of care as document except for any differences below. Patient successfully weaned off of vasopressors earlier today. To ensure adequate source control patient will be transitioned off of IV access, femoral central line was appropriately removed. Patient also had Abbott catheter with unclear reason for urinary retention after corroboration of history with patient's family. Will transition to straight cath while he is hospitalized and will determine need for Abbott when he returns to facility in coming days. Patient remains afebrile though WBC count is elevated prompting desire to remove any potential alternative etiology though favor urinary tract infection as the most likely cause. Patient remains stable on mechanical ventilation with peak pressure/compliance unchanged making pneumonia less likely. Patient will remain on appropriate antibiotics with transition to Levaquin given inability to obtain IV access this afternoon. Should the patient show worsening, will need to place central access once again. Monitor urine output closely as this has been intermittently improved the patient does have acute renal failure. Total critical care time: I personally spent 50 minutes for review of physiologic parameters, directing plan of care, coordination of care with other specialist, and counseling patient's family at bedside. This is exclusive of time spent teaching on staff performing any separate billable procedures. Patient remains at significant risk for further morbidity and mortality warranting close monitoring and care only available in the ICU. Patient required critical care services for septic shock, chronic respiratory failure, acute renal failure, urinary tract infection/complicated.
[2025-04-29 17:43] LABS: Albumin, Serum 3.1 gm/dL (3.4-4.8); Anion Gap 14 (7-16); BUN/Creatinine Ratio 16 Ratio (12-20); Blood Urea Nitrogen 31 mg/dL (9-23); Calcium 8.3 mg/dL (8.3-10.6); Calcium (Corrected) 9.0 mg/dL (8.5-10.1); Carbon Dioxide 18.1 mMol/L (20.0-31.0); Chloride 90 mMol/L (98-107); Creatinine (Component) 2.0 mg/dL (0.6-1.3); Estimated Creatinine Clearance 41.0 mL/min (>60); Glucose 215 mg/dL (74-106); Osmolality,Calculated 258 (275-295); Phosphorous 3.0 mg/dL (2.4-5.1); Potassium 4.2 mMol/L (3.4-5.1); Sodium 122 mMol/L (136-145); eGFR 34 See Note
[2025-04-29] MEDS: LEVOFLOXACIN 250 MG TABLET 750 MG PO (18:05)
[2025-04-29] MEDS: METOCLOPRAMIDE LIQD 10 MG/10 ML UDC 5 MG GT (21:08)
[2025-04-29] MEDS: INSULIN DEGLUDEC 5 UNIT/0.05 ML (PER 5 UNITS) 18 UNIT SC (21:14)
[2025-04-30] VITALS (93 sets, daily range): BP systolic 42–165; BP diastolic 27–80; PULSE 68–116; RESP 18–39; TEMP 36.1–36.8; O2SAT 90–100; BMI 39.5
[2025-04-30 04:34] LABS: Base Excess -6 (-3-3); HCO3 20 mEq/L (20-26); Inspired Oxygen, FIO2 30 %; O2 Saturation 93 % (91-98); PCO2 46 mmHg (32.0-48.0); PO2 66 mmHg (83-108); pH, Arterial 7.26 (7.35-7.45)
[2025-04-30 04:36] LABS: Allen Test Performed/OK; Puncture Site Left Radial
[2025-04-30] MEDS: MIDODRINE 5 MG TABLET PO ×2 (05:29→15:01)
[2025-04-30] MEDS: METOCLOPRAMIDE LIQD 10 MG/10 ML UDC 5 MG GT ×3 (05:29→21:26)
[2025-04-30] MEDS: MUPIROCIN OINT 2% 15 GM TUBE TOP ×3 (05:30→21:40)
[2025-04-30] MEDS: HEPARIN SOD INJ 5000 UNIT/ML VIAL SC ×3 (05:38→21:39)
[2025-04-30 05:52] LABS: Basophils # (Auto) 0.1 Thou/mm3 (0.0-0.2); Basophils % (Auto) 0 % (0-2.5); Eosinophils # (Auto) 2.6 Thou/mm3 (0.0-0.5); Eosinophils % (Auto) 8 % (0-10); Hematocrit 22.7 % (41.0-53.0); Immature Granulocytes Auto 1.32 Thou/mm3 (0.00-0.00); Lymphocytes # (Auto) 0.6 Thou/mm3 (1.0-4.8); Lymphocytes % (Auto) 2 % (10-50); Mean Corpuscular HGB Conc 33.0 g/dl (31.0-37.0); Mean Corpuscular Hemoglobin 24.4 pg (25.0-35.0); Mean Corpuscular Volume 74 fL (80-100); Monocytes # (Auto) 0.8 Thou/mm3 (0.0-0.8); Monocytes % (Auto) 2 % (0-12); Neutrophils # (Auto) 28.9 Thou/mm3 (1.8-7.7); Neutrophils % (Auto) 84 % (37-80); Nucleated Red Blood Cell # 0.05 Thou/mm3 (0.00-0.00); Nucleated Red Blood Cell % 0 /100 WBC (0); Platelet Count 349 Thou/mm3 (140-440); RDW Standard Deviation 52.3 fL (35.1-43.9); Red Blood Count 3.07 Miln/mm3 (4.50-5.90); White Blood Count 34.3 Thou/mm3 (3.8-10.6)
[2025-04-30 05:53] LABS: Hemoglobin 7.5 g/dL (13.5-16.0)
[2025-04-30] MEDS: INSULIN LISPRO (AdmeLOG) 1 UNIT/0.01 ML UNIT SC ×4 (06:12→23:48)
[2025-04-30 06:22] LABS: Alanine Aminotransferase 18 U/L (10-49); Albumin, Serum 3.2 gm/dL (3.4-4.8); Albumin/Globulin Ratio 1.1 (1.2-2.2); Alkaline Phosphatase 144 U/L (46-116); Anion Gap 15 (7-16); Aspartate Amino Transferase 21 U/L (0-34); BUN/Creatinine Ratio 21 Ratio (12-20); Bilirubin,Total 0.5 mg/dL (0.3-1.2); Blood Urea Nitrogen 46 mg/dL (9-23); Calcium 9.1 mg/dL (8.3-10.6); Calcium (Corrected) 9.7 mg/dL (8.5-10.1); Carbon Dioxide 19.3 mMol/L (20.0-31.0); Chloride 88 mMol/L (98-107); Creatinine (Component) 2.2 mg/dL (0.6-1.3); Estimated Creatinine Clearance 36.7 mL/min (>60); Globulin 3.0 gm/dL (2.3-3.5); Glucose 166 mg/dL (74-106); Osmolality,Calculated 261 (275-295); Potassium 4.2 mMol/L (3.4-5.1); Sodium 122 mMol/L (136-145); Total Protein 6.2 gm/dL (5.7-8.2); Vancomycin,Random 23.5 mcg/mL; eGFR 30 See Note
--- NOTE | 2025-04-30 08:21 | XR_ITS ---
Examination: AP chest single view Technique one AP portable semiupright chest single view Date and time: April 30, 2025, 0836 hours, comparison April 28, 2025 INDICATIONS: Shortness of breath today FINDINGS: Significant left base pneumonia Tracheostomy tube tip 9.7 cm above monica Mild vascular congestion Minimal prominence left ventricle IMPRESSION: Significant pneumonia left base
[2025-04-30 08:47] LABS: Partial Thromboplastin Time 27.7 Seconds (22.0-36.0)
[2025-04-30] MEDS: CITRIC ACID/SODIUM CITR 15 ML UDC (BICITRA) 30 ML PO ×2 (09:17→21:25)
--- NOTE | 2025-04-30 10:05 | PD.RESPRO ---
Documentation for date of: 04/30/25 Subjective Subjective Interval history: History per ICU h and p: Mr Sanchez is a 80-year-old male with significant past medical history of CVA s/p trach/PEG tube, chronic hypoxic respiratory failure, MRSA pneumonia, Pseudomonas UTI, MRSA bacteremia, sacral ulcer, IDDM type II, hypertension, hyperlipidemia, vertebral osteomyelitis, acute pancreatitis, calculus cholelithiasis, MARGARETTE requiring hemodialysis in the past, and decubitus ulcers brought in by [facility] by the [facility] [place] with chief complaint of fever for past 2 days. As per nursing facility staff, the patient is nonverbal at baseline with GCS score is 5, and they provided a note to rule out sepsis. The at bedside is a poor historian, and believe that the patient still interacts with her. Initially in the ED her vitals were BP 128/58, pulse 123, RR 29, temperature 100.9, saturating 100% on 40 L FiO2 via tracheostomy tube. Labs are significant for white count of 28.6, hemoglobin 8.2, MCV 74, platelet 368, ESR 102, D-dimer greater than 3820, ABG revealed pH 7.30, pCO2 41, sodium 117 with corrected sodium for hyperglycemia is 123, potassium 4.1, chloride 87, bicarb 19.9, anion gap 10, BUN/creatinine 36/1.5, GFR 47, blood sugar 299, lactic acid 2.2, magnesium 2.0, T. bili 1.8, direct bilirubin 1.4, AST/ALT/ALP 71/47/229, troponin less than 0.020, CRP greater than 10.0, BNP 138, albumin 3.2, Pro-Tevin 2.28, UA revealed dark yellow urine, turbid, 2+ protein, 3+ blood, leukocyte esterase positive, RBC 1847, WBC 1892, urine bacteria none. Chest x-ray revealed extensive bilateral pneumonia. PMH: As mentioned above SHX: Positive abdominal surgery, tracheostomy, gastrostomy and knee joint replacement Family history: Unobtainable Social history: He is , often comes to visit, others unobtainable Medications: To be reconciled Allergies: NYLA inhibitors, upper airway edema, ARB's for airway edema The patient was given 1 L of bolus normal saline in the ED, vancomycin and cefepime IV x 1, and he is MAP dropped down to less than 65, and was started on Levophed. The patient was admitted to ICU for further management of septic shock secondary to pneumonia and UTI. 04/27/2025: pt admitted to ICU, Nephrology consulted patient seen and examined in ICU pt on pressors, pt is unresponsive to voice and pain, Pupils are fixed and non responsive to light. pt has sacral wounds being examined by wound nurse divya. pt appears hypervolemic on exam, BLE edematous. ICU managing fluids, Na 118, Cl 88, hco3 17, BUN 35, Cr 1.6, Serum Osm 257 UA with 2+ protein 3+ blood. Urine looks concentrated suspect hypervolemia hyponatremia, reccomend diuretics and albumin 04/28/2025: patient seen and examined in the ICU. Pt opens eyes spontaneously. appears hypervolemic on exam with ELE and ELE with significant edema, ICU managing fluids, Na 120, K 3.7 Cl 88, CO2 17, BUN 42 from 35,Cr 1.8 from 1.6. suspect hypervolemic hyponatremia, reccomend trial of 40 IV lasix and IV albumin, bicitra, procrit epogen 10 000 04/29/2025: Patient examined at bedside in the ICU, remains bedbound on blood pressure support via trach. GCS 4T, patient is not following any commands at this time but does open eyes spontaneously. Hyponatremia improving slowly, will start salt tabs at this time and monitor sodium closely. Patient was given IV Lasix yesterday, with minimal improvement. He still appears significantly fluid overloaded, will give albumin for now. 04/30/2025: Patient seen and examined in the ICU, with trach, uop is minimal, german catheter was removed, straight cath q4h with bladder scans. L femoral catheter removed, Bcx pending, WBC elevated to 34, Na 122, BUN 46 from 31, Cr 2.2 from 2. query UTI, vs bacteremia. , HR 100s, BP normotensive. on exam pt has significant edema query whether pt is hypervolemic vs intravascularly down, recommend aldactone 50, given 1L LR per ICU. Exam Vital Signs Temp Pulse Resp BP Pulse Ox O2 Del Method FiO2 97.1 F 103 H 27 H 122/58 L 94 L Mechanical Ventilation 30 04/30/25 04:01 04/30/25 06:34 04/30/25 06:00 04/30/25 06:34 04/30/25 06:34 04/30/25 04:01 04/30/25 06:34 Narrative Exam General: No acute distress, comatose, opening eyes spontaneously per nursing facilityGCS of 5 at baseline HEENT: Moist mucous membranes, oropharynx not assessed Neck: trach in place midline CVS: regular rate and rythm, +murmor , rubs or gallops Lungs: Mild rhonchi throughout the lung field, no wheezing, crackles or decreased breath sounds Abd: Soft, NT, slightly distended, +BS, epigastric peg tube in place with no errythema crusting or drainage around tube. : german was removed, L fem cath was removed Ext: diffuse edema of upper and 1+ pitting of the lower extrem, warm and well perfused, bilateral femoral lines Skin: Multiple stages of decubitus ulcers on buttoks and sacrum , L heel with 3cm bruise violacious Psych: Unobtainable Objective Labs 04/30/25 05:25 04/30/25 05:25 Labs: Laboratory Results - last 24 hr 04/29/25 04/30/25 04/30/25 16:23 04:21 05:25 WBC 34.3 H RBC 3.07 L Hgb 7.5 L Hct 22.7 L MCV 74 L MCH 24.4 L MCHC 33.0 RDW Std Deviation 52.3 H Plt Count 349 D Neut % (Auto) 84 H Lymph % (Auto) 2 L Alcorn % (Auto) 2 Eos % (Auto) 8 Baso % (Auto) 0 Neut # (Auto) 28.9 H Lymph # (Auto) 0.6 L Alcorn # (Auto) 0.8 Eos # (Auto) 2.6 H Baso # (Auto) 0.1 Immature Gran # (Auto) 1.32 H Absolute Nucleated RBC 0.05 H Immature Gran % 4 H Nucleated RBC % 0 APTT 27.7 Puncture Site Left Radial ABG pH 7.26 L ABG pCO2 46 D ABG pO2 66 L D ABG HCO3 20 ABG O2 Saturation 93 ABG Base Excess -6 L FiO2 30 Sodium 122 L 122 L Potassium 4.2 4.2 Chloride 90 L 88 L Carbon Dioxide 18.1 L 19.3 L Anion Gap 14 15 BUN 31 H 46 H Creatinine 2.0 H 2.2 H Estim Creat Clear Calc 41.0 L 36.7 L eGFR 34 L 30 L BUN/Creatinine Ratio 16 21 H Glucose 215 H 166 H Calculated Osmolality 258 L 261 L Lactic Acid 1.4 Calcium 8.3 9.1 Corrected Calcium 9.0 9.7 Phosphorus 3.0 Total Bilirubin 0.5 AST 21 ALT 18 Alkaline Phosphatase 144 H D Total Protein 6.2 Albumin 3.1 L 3.2 L Globulin 3.0 Albumin/Globulin Ratio 1.1 L Random Vancomycin 23.5 ABG Interpretation ABG results: 04/27/25 04/27/25 04/27/25 02:12 07:39 09:19 ABG pH 7.30 L 7.18 L* D 7.24 L ABG pCO2 41 53 H D 44 ABG pO2 99 98 110 H ABG HCO3 20 20 19 L ABG O2 Saturation 98 98 99 H ABG Base Excess -6 L -9 L -8 L 04/27/25 04/28/25 04/30/25 12:15 04:10 04:21 ABG pH 7.28 L 7.34 L 7.26 L ABG pCO2 39 36 46 D ABG pO2 135 H D 111 H D 66 L D ABG HCO3 18 L 19 L 20 ABG O2 Saturation 100 H 99 H 93 ABG Base Excess -8 L -6 L -6 L Quality Measures Quality Measures VTE prophylaxis Advance care planning discussed with:: other Assessment & Plan Assessment Current Active Medications: Generic Name Dose Route Start Last Admin Trade Name Freq PRN Reason Stop Dose Admin Acetaminophen 650 mg 04/27/25 03:11 04/28/25 07:48 Acetaminophen 325 Mg Tablet PO 05/27/25 03:10 650 mg Q4HR PRN Administration PAIN SCALE 1-3 (mild Aspirin 81 mg 04/27/25 09:00 04/30/25 09:21 Aspirin 81 Mg Chew GT 05/27/25 08:59 Not Given QDAY IMANI Citric Acid/Sodium Citrate 30 ml 04/28/25 10:00 04/30/25 09:17 Citric Acid/Sodium Citr 15 Ml Udc (Bicitra) PO 05/28/25 09:59 30 ml BID IMANI Administration Dextrose 25 ml 04/27/25 03:37 Dextrose 50%-Water Inj 50 Ml Syringe IV 05/27/25 03:36 Q15MIN PRN BG 50-70 responsive npo pt Dextrose 50 ml 04/27/25 03:37 Dextrose 50%-Water Inj 50 Ml Syringe IV 05/27/25 03:36 Q15MIN PRN BG <50 OR BG <70 & pt unresponsive Epoetin Marc 10,000 unit 04/30/25 14:00 Epoetin Marc-Epbx Inj 10,000 Unit/Ml Vial (Non-Esrd) SC 04/30/25 14:01 X1 ONE Glucagon 1 mg 04/27/25 03:37 Glucagon Inj 1 Mg Vial IM Q15MIN PRN BG <70, and no IV access Heparin Sodium (Porcine) 5,000 unit 04/27/25 06:00 04/30/25 05:38 Heparin Sod Inj 5000 Unit/Ml Vial SC 05/11/25 05:59 5,000 unit Q8HR IMANI Administration Norepinephrine/Dextrose 8 mg in 250 mls @ 11.522 mls/hr 04/28/25 12:43 04/29/25 19:00 Levophed In D5w 8mg/250ml IV 05/28/25 12:42 0 mcg/kg/min .[id number] PRN 0 mls/hr PER PROTOCOL Titration Protocol 0.05 MCG/KG/MIN Albumin Human 25 gm in 100 mls @ 100 mls/hr 04/28/25 14:30 04/30/25 08:11 Albuminar-25 Ivpb IV 05/01/25 14:29 Not Given BID IMANI Albumin Human 25 gm in 100 mls @ 100 mls/min 04/30/25 09:52 Albuminar-25 Ivpb IV 05/03/25 09:51 PRN PRN DIALYSIS Insulin Degludec 18 unit 04/29/25 21:00 04/29/25 21:14 Insulin Degludec 5 Unit/0.05 Ml (Per 5 Units) MO 05/29/25 20:59 18 unit HS IMANI Administration Insulin Human Lispro 0 unit 04/27/25 06:00 04/30/25 06:12 Insulin Lispro (Admelog) 1 Unit/0.01 Ml Unit SC 05/27/25 05:59 1 unit Q6HR IMANI Administration Protocol Levofloxacin 750 mg 05/01/25 14:00 Levofloxacin 250 Mg Tablet GT 05/08/25 13:59 Q48H IMANI Magnesium Hydroxide 30 ml 04/27/25 03:11 Milk Of Magnesia Susp 30 Ml Udc PO 05/27/25 03:10 QDAY PRN CONSTIPATION Metoclopramide HCl 5 mg 04/29/25 22:00 04/30/25 05:29 Metoclopramide Liqd 10 Mg/10 Ml Udc GT 05/29/25 21:59 5 mg Q8HR IMANI Administration Midodrine 5 mg 04/28/25 14:00 04/30/25 05:29 Midodrine 5 Mg Tablet PO 05/28/25 13:59 5 mg TID IMANI Administration Mupirocin 0 gm 04/28/25 22:00 04/30/25 05:30 Mupirocin Oint 2% 15 Gm Tube TOP 05/05/25 21:59 1 applicatio TID IMANI Administration Oxycodone/Acetaminophen 1 tab 04/27/25 18:29 Oxycodone/Apap 5/325 Tablet GT 05/02/25 18:28 Q6HR PRN Pain 7-10 Plan Mr Sanchez is a 80-year-old gentleman with hx of CVA s/p trach/PEG tube, chronic hypoxic respiratory failure, MRSA pneumonia, Pseudomonas UTI, MRSA bacteremia, sacral ulcer, IDDM type II (poorl controlled A1c 10.5), hypertension, hyperlipidemia, vertebral osteomyelitis, hx of MARGARETTE requiring hemodialysis in the past, whose baseline mental status is GCS 5, admitted to ICU for septic shock 2/2 PNA vs UTI, requiring pressors and hyponatremia, with minimal UOP 280 ccs, trial lasix and albumin given suspicion of hypervolemic hyponatremia however UOP is minimal, german cath removed and L fem cath removed, WBC 34, pending bcx. query UTI, pt with significant anisarca, however query low intravascular volume. Given 1L LR today per ICU, pt may benefit from aldactone 50 if >concern for hypervolemia. Hypervolemic hyponatremia query hypovolemic hyponatremia The patient presented with sodium of 117, but the corrected sodium was 123 (pt hyerglycemic to 288) The patient received 1 L of normal saline in the ED for sepsis and 1 L LR in the ICU Serum osm 257: hypernatremic, hypotonic, hypervolemic on exam: query CHF vs renal failure, vs cirrhosis vs nephrotic syndrome (UA with 2+ protein) - Was given IV lasix 40mg x1 in 04/28 with minimal improvement - 04/29: Na 120 -> 121 , appears hypervolemic on exam BUE and BLE edematous. - 04/30: Na 122, significant anisarca, start HD Plan: - Consider starting aldactone 50 - Continue IV Albumin 25mg IV BID - Hyponatremia improving slowly, continue start salt tabs at this time and monitor sodium closely. - Given 1L LR today per ICU, given c/f low intravascular volume - On Bicitra given HCO3 low may help correct hyponatremia - Sodium checks per primary team MARGARETTE Likely prerenal secondary to sepsis Presented with creatinine of 1.5, baseline creatinine about 0.7-0.8 Patient received 1 L of normal saline in the ED, given c/f worsening his hyponatremia, sepsis protocol resusitation was not initaited. 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 Due to concern of overcorrection of hyponatremia, full 30 cc/kg body fluid was not given. repeat bcx pending - 1 L LR in icu. - Started on Levophed, managment per ICU Bilateral healthcare associated pneumonia Possible acute hypoxic respiratory failure 2/2 query aspiration pneumonia Severe UTI -on abx german removed, straight cath q4hr Chronic respiratory failure 2/2 S/p CVA mech ventilation per trach tube, Transaminitis Diarrhea - pending cdiff r/o Nutrition per peg tube Acute hgb drop- now stable Microcytic anemia - likely dilutional given decrease in other cell lines, - give procrit 10 000 - iron deficiency, iron studies low, retic count elevated. Non-anion gap metabolic acidosis Insulin-dependent diabetes mellitus type 2 - A1c 10.5 Multistage decubitus ulcer HTN HLD - managment per primary team Plan discussed with nephrology attending Dr. Camila Conner MD Internal Medicine PGY-1 Attending Provider Attestation/Addendum Patient seen and examined with resident physician Dr. Conner. Note reviewed, agree with findings and recommendations. Spoke to -- Patient with hypervolemic hyponatremia. Did receive 1 liter IV fluid. Patient basically bedbound with status post trach and PEG for the last 5 years. Hold free water flushes for now. Medications and labs reviewed. Will monitor serum sodium closely. Hold off on 3% hypertonic saline. Plan of care discussed with ICU team. 05/01/2025 Clinically patient looks edematous-patient was given diuretics, IV fluids with no improvement in urine output. White count still elevated. Suspected pneumonia-on antibiotics. Due to persistent hyponatremia, significant fluid overload and oligoanuric state-decided to proceed with dialysis. Family agreed. Vas-Cath placed by ICU team. Patient on dialysis. Tolerating dialysis without any problems. Hemodialysis for 2 hours, 2K, ultrafiltration 0 L, Epogen 6000, no heparin ordered. Plan of care discussed with the dialysis nurse. Please see dialysis flowsheet for further details. Care discussed with Dr. Felipe.
--- NOTE | 2025-04-30 11:00 | PD.RESPROC ---
PROCEDURES: Procedure Date / Time 04/30/25 1053 Procedure Narrative Procedure Narrative: Attending Attestation: I was present for entire procedure. No immediate complications. Minimal blood loss. Patient tolerated procedure well. Central Line Placement Right Femoral: Indication(s): poor, or inadequate peripheral venous access and other Informed consent obtained: obtained from surrogate decision maker Time out done, and the following verified: correct patient, side and site, procedure, patient position and implants and/or equipment Patient placed on monitor/pulse ox: Yes Hand Hygiene: scrub and alcohol-based hand rub Max Sterile Barrier Techniques used: cap, mask, sterile gown, sterile gloves and sterile full body drape Central line prep: Povidone-Iodine 1%, Chlorhexidine scrub and sterile drapes applied Local anesthesia used: lidocaine 1% Amount of anesthesia used (mL): 5 Ultrasound used for placement: Yes Sterile Technique if Ultrasound used, including sterile gel: yes Central line lumen inserted: triple Post procedure: sutured in place, good blood return, all ports aspirated, flushed, capped and sterile dressing applied Patient tolerated procedure: well and no complications EBL(ml): 5 Complications: none Procedure comment: Triflow catheter is placed - 20cm for HD and venous access Done under supervision of Dr. Matteo Vigil, PGY2
[2025-04-30 11:01] LABS: Hepatitis A Antibody IgM Non Reactive (Non React); Hepatitis B Core Antibody IgM Non Reactive (Non React); Hepatitis B Surface Ab NonReact(Not Immune) (Immune); Hepatitis B Surface Antigen Non Reactive (Non React); Hepatitis C Antibody Non Reactive (Non React)
[2025-04-30] MEDS: RINGERS LACTATED 1000 ML 1,000 ML 999 ML IV (11:05)
[2025-04-30] MEDS: HEPARIN SOD INJ 1000 UNIT/ML VIAL 10 ML 3000 UNIT INDWELLCAT ×2 (11:16→16:44)
[2025-04-30] MEDS: HYDROmorphone INJ 2 MG/ML VIAL 1 MG IVP (11:34)
[2025-04-30 13:39] LABS: Lactate (Lactic Acid) 1.5 mMol/L (0.4-2.0)
[2025-04-30] MEDS: ALBUMIN HUMAN 25% IVPB 25 GM/100 ML BTL IV (14:45)
[2025-04-30] MEDS: Norepinephrine/D5W 8mg/250ml 8 MG/250 ML BAG 11.522 MG IV (14:49)
--- NOTE | 2025-04-30 14:51 | PC.NURSE ---
Addendum entered by Jerzy Shin RN 04/30/25 14:53: MD PISANO W/ ORDER TO TURN UF OFF, ORDER CARRIED OUT WILL CONT. TO MONITOR Original Note: BP LOW WILL ADMIN PRN ALBUMIN, BEDSIDE NURSE NOTIFIED W/ ORDER TO START BP MEDICATION. WILL CONT. TO MONITOR
--- NOTE | 2025-04-30 14:54 | EKG_ITS ---
[facility] Test Date: 2025-04-30 Pat Name: KIMI NI Department: Room: S253A Gender: Male Social Media Content Manager: CYN : 1945 Requested By: Brian Mtz Order Number: [id number] Reading MD: Brian Mtz Measurements Intervals [place] Rate: 113 P: AK: QRS: 4 QRSD: 81 T: 49 QT: 345 QTc: 474 Interpretive Statements SUPRAVENTRICULAR TACHYCARDIA LOW QRS VOLTAGE IN PRECORDIAL LEADS SEPTAL MYOCARDIAL INFARCTION , OF INDETERMINATE AGE Compared to ECG 05/13/2023 14:07:38 Myocardial infarct finding now present Sinus rhythm no longer present /store/S0/[id number].pdf
--- NOTE | 2025-04-30 14:56 | PC.NURSE ---
BP REMAINS LOW, UF REMAINS OFF. MD PISANO AT BEDSIDE. WILL CONT. TO JACK
[2025-04-30] MEDS: EPOETIN ALFA-EPBX INJ 10,000 UNIT/ML VIAL (NON-ESRD) 10000 UNIT SC (16:18)
[2025-04-30 16:21] LABS: Base Excess -4 (-3-3); HCO3 22 mEq/L (20-26); Inspired Oxygen, FIO2 30 %; O2 Saturation 94 % (91-98); PCO2 43 mmHg (32.0-48.0); PO2 69 mmHg (83-108); pH, Arterial 7.31 (7.35-7.45)
[2025-04-30 16:22] LABS: Allen Test Performed/OK; Puncture Site Right Radial
[2025-04-30] MEDS: PIPER/TAZO 3.375 GM PREMIX 3.375 GM/50 ML BAG IV ×2 (16:49→21:26)
--- NOTE | 2025-04-30 16:50 | PC.SS ---
Update: Patient on mechanical ventilator/PEG tube. Patient receiving dialysis today. Patient not established with outpatient dialysis. Patient receiving pressor support. Patient receiving IV antibiotics. Afebrile. Dr. Jensen consulting.
--- NOTE | 2025-04-30 17:58 | PD.RESPRO ---
Documentation for date of: 04/30/25 Subjective Subjective Interval history: 04/27/2025: Patient is seen and examined at bedside in the ICU. Per patient's family and nursing facility, at baseline patient communicates with blinking, says yes or no but blinking once or twice respectively and receives pain medication, oxycodone as needed in the facility. Vitals are stable and patient is on low-dose Levophed 0.05 at the time of examination. On physical examination, patient is not responding even to painful stimuli and noted to have decubitus ulcer on the side and heel. Bilateral pupils are round, equal and reacting to light. Patient was given 1 more liter of bolus after coming to the ICU in view of suspected prerenal MARGARETTE due to shock. Also noted to have low albumin on CMP for which patient is given 25 g of albumin. Slowly patient noted to come off the vasopressors. Still appears to be hyponatremic which is slowly improving. Supervisor [place], Dr. Palma is consulted and she recommended to continue to monitor sodium levels and no need of any active intervention. After coming to the ICU, patient noted to have improved urine output around 30 to 50 cc/h. As patient came off the vasopressors gradually, started on tube feeds. Will continue to monitor urine output, renal functions, sodium. ABG done this morning showed mild metabolic acidosis. 04/28/2025: Patient seen at bedside, mentation improved, was more interactive today, he opens both eyes and tracks, occasionally blinks in response to questions. Patient was off pressors this morning. Midodrine dose was decreased to avoid masking underlying shock. Due to the increasing creatinine, 1L LR was given for suspected prerenal MARGARETTE, urine output remains low at 365 ml in 24 hours. Discussed with Nephrology later on who felt that patient may be fluid overloaded instead and have hypervolemic hypernatremia, so trial of Lasix 40 mg IV x1 given in afternoon. Bicitra 20 ml BID also added. Patient got 2 doses of 25 gm albumin. Repeated renal panel did not show change in creatinine so far. Sodium remained steady at 120. Urine output slightly increased. However, patient started requiring pressors again as MAP dropped to 57. He remains on low dose norepinephrine at 0.03-0.05 range. MRSA screen was positive therefore mupirocin was added. 04/29/2025: Patient is seen and examined at bedside in the ICU. Appears to be at his baseline. Vital signs stable and patient is still on low-dose vasopressor. Labs done this morning showed WBC 31.8, sodium 121, creatinine 1.9. Noted to have good urine output overnight. As patient is still requiring vasopressors, suspected ongoing infection for which left femoral line and Abbott catheter was removed. Later patient was slowly weaned off the vasopressors and noted to have adequate MAP greater than 65 mmHg without the vasopressor need. Tried to place a peripheral line later in the day but unsuccessful as the patient had severe anasarca. PICC line placement is ordered for tomorrow morning. Will continue antibiotics and the rest of the medications through G-tube. Will continue to monitor renal functions. 04/30/2025: Patient is seen and examined at bedside in the ICU. Overnight, patient noted to have only 200 mL of urine in the bladder on bladder scans. No acute overnight events. Vital signs are stable and patient is off vasopressors completely since yesterday. In and Out catheter is placed this morning and drained 200 mL of urine. As the patient is oliguric and not making adequate urine output, high flow catheter is placed in right femoral vein for dialysis and also for the venous access. Patient tolerated the procedure well. Labs done this morning showed improving WBC, sodium 122, bicarb 19.3, creatinine 2.2, BUN 46. A bolus of LR is given, despite approach patient did not make any urine output in the day for which area operations director, Dr. Jensen recommended HD session for today in view of suspected ongoing ATN. During dialysis, patient noted to have hypotension for which patient was given a dose of albumin and placed on Levophed. Will continue to monitor blood pressures, wean off vasopressors as tolerated. Will continue to do bladder scan and do In and Out catheterization. Will continue Zosyn for now. Will do right heart catheterisation tomorrow if needed to assess the volume status and pressure in the heart and lungs Exam Vital Signs Temp Pulse Resp BP Pulse Ox O2 Del Method FiO2 97.0 F 110 H 29 H 106/62 92 L Mechanical Ventilation 30 04/30/25 16:55 04/30/25 17:45 04/30/25 17:45 04/30/25 17:45 04/30/25 17:45 04/30/25 16:00 04/30/25 16:55 Narrative Exam General: At his baseline. Spontaneously opening and blinking. HEENT: Normocephalic, atraumatic, mucous membranes moist. Heart: Regular rate and rhythm, no murmurs. Lungs: Clear to auscultation with no wheezing or crackles. Abdomen: Soft, nondistended, nontender, positive bowel sounds. ?No guarding or rebound tenderness. Neurologic: At his baseline. Spontaneously opening and blinking to give response. Extremities: noted Anasarca Skin: No rash or ecchymoses. noted to have decubitus ulcers Objective Labs 05/01/25 05:38 05/01/25 05:38 Labs: Laboratory Results - last 24 hr 04/30/25 04/30/25 04/30/25 04:21 05:25 13:33 WBC 34.3 H RBC 3.07 L Hgb 7.5 L Hct 22.7 L MCV 74 L MCH 24.4 L MCHC 33.0 RDW Std Deviation 52.3 H Plt Count 349 D Neut % (Auto) 84 H Lymph % (Auto) 2 L Fisher % (Auto) 2 Eos % (Auto) 8 Baso % (Auto) 0 Neut # (Auto) 28.9 H Lymph # (Auto) 0.6 L Fisher # (Auto) 0.8 Eos # (Auto) 2.6 H Baso # (Auto) 0.1 Immature Gran # (Auto) 1.32 H Absolute Nucleated RBC 0.05 H Immature Gran % 4 H Nucleated RBC % 0 APTT 27.7 Puncture Site Left Radial ABG pH 7.26 L ABG pCO2 46 D ABG pO2 66 L D ABG HCO3 20 ABG O2 Saturation 93 ABG Base Excess -6 L FiO2 30 Sodium 122 L Potassium 4.2 Chloride 88 L Carbon Dioxide 19.3 L Anion Gap 15 BUN 46 H Creatinine 2.2 H Estim Creat Clear Calc 36.7 L eGFR 30 L BUN/Creatinine Ratio 21 H Glucose 166 H Calculated Osmolality 261 L Lactic Acid 1.5 Calcium 9.1 Corrected Calcium 9.7 Total Bilirubin 0.5 AST 21 ALT 18 Alkaline Phosphatase 144 H D Total Protein 6.2 Albumin 3.2 L Globulin 3.0 Albumin/Globulin Ratio 1.1 L Random Vancomycin 23.5 Hepatitis A IgM Ab Non Reactive Hep Bs Antigen Non Reactive Hep Bs Antibody NonReact(Not Immune) L Hep B Core IgM Ab Non Reactive Hepatitis C Antibody Non Reactive 04/30/25 16:15 WBC RBC Hgb Hct MCV MCH MCHC RDW Std Deviation Plt Count Neut % (Auto) Lymph % (Auto) Fisher % (Auto) Eos % (Auto) Baso % (Auto) Neut # (Auto) Lymph # (Auto) Fisher # (Auto) Eos # (Auto) Baso # (Auto) Immature Gran # (Auto) Absolute Nucleated RBC Immature Gran % Nucleated RBC % APTT Puncture Site Right Radial ABG pH 7.31 L ABG pCO2 43 ABG pO2 69 L ABG HCO3 22 ABG O2 Saturation 94 ABG Base Excess -4 L FiO2 30 Sodium Potassium Chloride Carbon Dioxide Anion Gap BUN Creatinine Estim Creat Clear Calc eGFR BUN/Creatinine Ratio Glucose Calculated Osmolality Lactic Acid Calcium Corrected Calcium Total Bilirubin AST ALT Alkaline Phosphatase Total Protein Albumin Globulin Albumin/Globulin Ratio Random Vancomycin Hepatitis A IgM Ab Hep Bs Antigen Hep Bs Antibody Hep B Core IgM Ab Hepatitis C Antibody ABG Interpretation ABG results: 04/27/25 04/27/25 04/27/25 02:12 07:39 09:19 ABG pH 7.30 L 7.18 L* D 7.24 L ABG pCO2 41 53 H D 44 ABG pO2 99 98 110 H ABG HCO3 20 20 19 L ABG O2 Saturation 98 98 99 H ABG Base Excess -6 L -9 L -8 L 04/27/25 04/28/25 04/30/25 12:15 04:10 04:21 ABG pH 7.28 L 7.34 L 7.26 L ABG pCO2 39 36 46 D ABG pO2 135 H D 111 H D 66 L D ABG HCO3 18 L 19 L 20 ABG O2 Saturation 100 H 99 H 93 ABG Base Excess -8 L -6 L -6 L 04/30/25 16:15 ABG pH 7.31 L ABG pCO2 43 ABG pO2 69 L ABG HCO3 22 ABG O2 Saturation 94 ABG Base Excess -4 L Quality Measures Quality Measures VTE prophylaxis Advance care planning discussed with:: spouse Assessment & Plan Assessment Current Active Medications: Generic Name Dose Route Start Last Admin Trade Name Freq PRN Reason Stop Dose Admin Acetaminophen 650 mg 04/27/25 03:11 04/28/25 07:48 Acetaminophen 325 Mg Tablet PO 05/27/25 03:10 650 mg Q4HR PRN Administration PAIN SCALE 1-3 (mild Aspirin 81 mg 04/27/25 09:00 04/30/25 09:21 Aspirin 81 Mg Chew GT 05/27/25 08:59 Not Given QDAY IMANI Citric Acid/Sodium Citrate 30 ml 04/28/25 10:00 04/30/25 09:17 Citric Acid/Sodium Citr 15 Ml Udc (Bicitra) PO 05/28/25 09:59 30 ml BID IMANI Administration Dextrose 25 ml 04/27/25 03:37 Dextrose 50%-Water Inj 50 Ml Syringe IV 05/27/25 03:36 Q15MIN PRN BG 50-70 responsive npo pt Dextrose 50 ml 04/27/25 03:37 Dextrose 50%-Water Inj 50 Ml Syringe IV 05/27/25 03:36 Q15MIN PRN BG <50 OR BG <70 & pt unresponsive Glucagon 1 mg 04/27/25 03:37 Glucagon Inj 1 Mg Vial IM Q15MIN PRN BG <70, and no IV access Heparin Sodium (Porcine) 5,000 unit 04/27/25 06:00 04/30/25 14:26 Heparin Sod Inj 5000 Unit/Ml Vial SC 05/11/25 05:59 5,000 unit Q8HR IMANI Administration Heparin Sodium (Porcine) 3,000 unit 04/30/25 11:01 04/30/25 16:44 Heparin Sod Inj 1000 Unit/Ml Vial 10 Ml INDWELLCAT 05/14/25 11:00 3,000 unit PRN PRN Administration DIALYSIS Norepinephrine/Dextrose 8 mg in 250 mls @ 11.522 mls/hr 04/28/25 12:43 04/30/25 17:47 Levophed In D5w 8mg/250ml IV 05/28/25 12:42 0.01 mcg/kg/min .[id number] PRN 2.304 mls/hr PER PROTOCOL Titration Protocol 0.05 MCG/KG/MIN Albumin Human 25 gm in 100 mls @ 100 mls/hr 04/28/25 14:30 04/30/25 08:11 Albuminar-25 Ivpb IV 05/01/25 14:29 Not Given BID IMANI Albumin Human 25 gm in 100 mls @ 100 mls/min 04/30/25 09:52 04/30/25 14:45 Albuminar-25 Ivpb IV 05/03/25 09:51 100 mls/min PRN PRN Administration DIALYSIS Piperacillin/Tazobactam/Dextrose 3.375 gm in 50 mls @ 12.5 mls/hr 04/30/25 22:00 Zosyn IV 05/07/25 21:59 Q8HR IMANI Insulin Degludec 18 unit 04/29/25 21:00 04/29/25 21:14 Insulin Degludec 5 Unit/0.05 Ml (Per 5 Units) SC 05/29/25 20:59 18 unit HS IMANI Administration Insulin Human Lispro 0 unit 04/27/25 06:00 04/30/25 17:43 Insulin Lispro (Admelog) 1 Unit/0.01 Ml Unit SC 05/27/25 05:59 1 unit Q6HR IMANI Administration Protocol Magnesium Hydroxide 30 ml 04/27/25 03:11 Milk Of Magnesia Susp 30 Ml Udc PO 05/27/25 03:10 QDAY PRN CONSTIPATION Metoclopramide HCl 5 mg 04/29/25 22:00 04/30/25 14:23 Metoclopramide Liqd 10 Mg/10 Ml Udc GT 05/29/25 21:59 5 mg Q8HR IMANI Administration Midodrine 5 mg 04/28/25 14:00 04/30/25 15:01 Midodrine 5 Mg Tablet PO 05/28/25 13:59 5 mg TID IMANI Administration Mupirocin 0 gm 04/28/25 22:00 04/30/25 14:25 Mupirocin Oint 2% 15 Gm Tube TOP 05/05/25 21:59 1 applicatio TID IMANI Administration Oxycodone/Acetaminophen 1 tab 04/27/25 18:29 Oxycodone/Apap 5/325 Tablet GT 05/02/25 18:28 Q6HR PRN Pain 7-10 Plan The patient is a 80-year-old male with significant past medical history of CVA s/p trach/PEG tube, chronic hypoxic respiratory failure, MRSA pneumonia, Pseudomonas UTI, MRSA bacteremia, sacral ulcer, IDDM type II, hypertension, hyperlipidemia, vertebral osteomyelitis, acute pancreatitis, calculus cholelithiasis, MARGARETTE requiring hemodialysis in the past, and decubitus ulcers brought in by [facility] by the [facility] [place] with chief complaint of fever for past 2 days. As per nursing facility staff, the patient is nonverbal at baseline with GCS score is 5, and they provided a note to rule out sepsis. The patient was given 1 L of bolus normal saline in the ED, vancomycin and cefepime IV x 1, and he is MAP dropped down to less than 65, and was started on Levophed. The patient was admitted to ICU for further management of septic shock secondary to pneumonia and UTI. Neuro: #Chronic encephalopathy 2/ #S/P stroke, Vascular dementia and MSA - At his normal baseline - Aspirin 81 Mg daily CVS: #Shock, resolved Most likely septic Patient presented with fever, tachycardia, white count of 28 and RR 29, lactic acid 2.2, and requiring pressure support The patient received 1 L of normal saline in the ED. As patient appears to be fluid overloaded, full 30 cc/kg body fluid was not given. ECHO on 04/27 - Normal LV size and function. Estimated EF at 55 -60%%. Grade I diastolic dysfunction. Septum is flattened in systole and diastole D shaped LV consistent with right ventricular volume/pressure overload. Mildly increased. RV size. Normal RV function. Mild to moderate TR. estimated RVSP moderately elevated at 40-45 mm hg. - Started on Levophed, weaned off completely as of 04/27 - Midodrine 5mg TID as needed if MAP < 65 and SBP <100 - Started on zosyn and vancomycin ( 04/27 -04/29) and changed to Levofloxacin 750mg GT every 48th hrly( 04/29), restarted on zosyn as of 04/30. # ?Right heart failure and moderate pulmonary hypertension - Patient appears to have anasarca, also noted to have mild hypoalbuminemia - Echo on 04/27 - showed right ventricular volume/pressure overload, mild to moderate TR, RVSP elevated at 40 to 45 mmHg. EF is 55 to 60% - Will require cardiac catheterization after discharge to categorize pulmonary hypertension and needs treatment accordingly. #Hypertension, well controlled - Using Amlodipine 10mg every day and will Hold medications for now. Pulmonology: #Possible acute on chronic hypoxic respiratory failure 10/08 #Healthcare associated pneumonia #S/p CVA The patient presented with fever, was found to have bilateral pneumonia on chest x-ray, the baseline oxygen requirement is unknown, but currently on FiO2 30% - Continue on mechanical ventilation through tracheostomy tube - Will continue Antibiotics GI #S/p PEG tube - Resumed tube feeds Renal # Hyponatremia, resolving The patient presented with sodium of 117, but corrected sodium was 123 The patient received 1 L of normal saline in the ED for sepsis and 1 more bolus of LR is given in the ICU - Will continue to monitor sodium levels - Patient is started on salt tablets twice daily - Supervisor [place], Dr. Jensen is consulted and will appreciate her recommendations. - Urine electrolytes was ordered #MARGARETTE Likely prerenal secondary to sepsis Presented with creatinine of 1.5, baseline creatinine about 0.7-0.8 Patient received 1 L of normal saline in the ED - Patient appears to produce adequate urine output as of now - Will continue to monitor renal panel - Renally dose medications and Avoid nephrotoxins - Supervisor [place], Dr. Jensen is consulted and recommended HD today as patient is oliguric. #Non-anion gap metabolic acidosis #Lactic acidosis 2/2 sepsis, resolved - ikely due to septic shock causing MARGARETTE - Lactate at the time of admission is 2.1 which downtrended to 1, bicarb at the time of admission is 19.9 which is slowly improving -Will continue to monitor renal panel Endocrinology: #Insulin-dependent diabetes mellitus type 2 - Started on insulin degludec 13 units daily at night, increase to 18 units based on blood sugars on morning labs - Sliding scale insulin lispro every 6 hourly with fingerstick blood sugar checks - A1c ordered - 10.5 Hematology: #Leukocytosis 2/2 sepsis Presented with white count of 28 - Daily a.m. labs for CBC - Treat the underlying cause sepsis #Microcytic anemia Likely 2/2 anemia of chronic disease, but could not rule out other differentials like nutritional deficiency - Iron panel, ferritin, folic acid, vitamin B12, reticulocyte count, peripheral smear and LDH ordered - showed iron deficiency - Will supplement iron once the infection is resolved - Daily a.m. labs for CBC ID #Septic shock, resolved 2/2 #Bilateral healthcare associated pneumonia Vs Severe UTI Chest x-ray revealed bilateral pneumonia, UA revealed UA revealed dark yellow urine, turbid, 2+ protein, 3+ blood, leukocyte esterase positive, RBC 1847, WBC 1892, urine bacteria none Patient received vancomycin and cefepime IV x 1 in the ED - Blood cultures and urine cultures showed no growth after 48 hours -Stopped vancomycin and Zosyn, started on levofloxacin 750 mg every 48 hourly through G-tube [04/29- Skin: #Multistage decubitus ulcer Patient has multi stages decubitus ulcer at buttock, and heels - Wound care consultation done MSK: #Contracted extremities / #Immobility - Physical therapy Health maintenance: Dispo: Patient admitted to ICU for further management of septic shock and hyponatremia Diet: G tube feeds DVT prophylaxis: Subcu heparin every 8 hourly CODE STATUS: Full code, confirmed by at bedside Patient plan of care was discussed with the Coupling Machine Operator, Dr. Matteo Vigil, PGY2 Attending Provider Attestation/Addendum Patient seen and examined with above resident, Shayne Vigil MD. I agree with the findings, assessment, and plan of care as documented in separate versus below. Patient continues to be hemodynamically stable off vasopressor support however minimal urine output. Straight catheterization this morning only produced 200 cc since Abbott was discontinued. Bladder scan showed approximately around this amount as well. Patient's renal function otherwise remained stable and not improving. Patient previously did require hemodialysis on prior admission. Patient without evidence of any other infection and will continue to treat ideally for previous history of urinary tract infection with multiple different organisms with significant resistance. IV access was not achievable yesterday. After discussion with renal, hemodialysis catheter was placed both for access as above as for planned HD. We did challenge again with IV fluid bolus. Patient only produced about 380 cc which was improved but inadequate for us to comfortably send the patient can be treated without hemodialysis now. Patient underwent hemodialysis which led to hypotension and reinitiation of vasopressors. Will consider right heart catheterization tomorrow given is difficult to determine fluid status currently. Patient otherwise at baseline mentation. His was at bedside and updated on plan of care. She was agreeable to brief run of hemodialysis given his prior recovery, which is yet to be determined. Total critical care time: I personally spent 50 minutes for review of physiologic parameters, directing plan of care throughout the day, coordination of care with other subspecialist, and counseling patient's at bedside. This is exclusive of time spent teaching on staff or performing a separate billable procedures. Patient remains at significant risk for further morbidity and mortality warranting close monitoring care only available in ICU. Patient required critical care services for septic shock, complicated urinary tract infection, acute renal failure, chronic respiratory failure.
--- NOTE | 2025-04-30 18:03 | PC.SS ---
SHAFT MECHANIC conducted phone contact with the patient?s spouse, Sherlyn Sanchez to conduct initial assessment and to discuss discharge planning.? Patient is on a mechanical ventilator and PEG tube.? Patient is from [facility].? Patient has resided at facility for approximately 5 years.? Patient is [employer] .? Patient is bed bound.? Facility staff conducts ADL completion on behalf of the patient.? Patient?s medical surrogate decision maker is spouse, Sherlyn Sanchez.? Dr. Heredia is the facility PCP.? The patient is not currently aligned with outpatient dialysis.? The discharge plan is for the patient to return to [facility] upon discharge.? Patient will require transportation back to sub-acute facility to include respiratory rider.? nursing services manager will assist with arranging transportation on behalf of the patient.? No further discharge needs identified by the patient.? No further intervention required at this time, social media senior associate will be available to address any further concerns.? Next of Kin: Sherlyn Sanchez D/C Plan: [facility]
[2025-04-30] MEDS: INSULIN DEGLUDEC 5 UNIT/0.05 ML (PER 5 UNITS) 18 UNIT SC (21:38)
[2025-05-01] VITALS (88 sets, daily range): BP systolic 72–162; BP diastolic 37–88; PULSE 85–115; RESP 15–38; TEMP 35.9–36.9; O2SAT 92–100; BMI 39.9
[2025-05-01 04:14] LABS: Base Excess -2 (-3-3); HCO3 25 mEq/L (20-26); Inspired Oxygen, FIO2 35 %; O2 Saturation 93 % (91-98); PCO2 50 mmHg (32.0-48.0); PO2 64 mmHg (83-108); pH, Arterial 7.30 (7.35-7.45)
[2025-05-01 04:15] LABS: Allen Test Not Performed; Puncture Site Right Radial
[2025-05-01] MEDS: METOCLOPRAMIDE LIQD 10 MG/10 ML UDC 5 MG GT ×2 (05:18→13:38)
[2025-05-01] MEDS: MIDODRINE 5 MG TABLET PO ×2 (05:19→13:39)
[2025-05-01] MEDS: MUPIROCIN OINT 2% 15 GM TUBE TOP ×3 (05:19→21:18)
[2025-05-01] MEDS: HEPARIN SOD INJ 5000 UNIT/ML VIAL SC ×3 (05:19→21:17)
[2025-05-01] MEDS: PIPER/TAZO 3.375 GM PREMIX 3.375 GM/50 ML BAG IV ×3 (05:20→21:17)
[2025-05-01] MEDS: INSULIN LISPRO (AdmeLOG) 1 UNIT/0.01 ML UNIT SC ×3 (05:20→17:19)
[2025-05-01 06:29] LABS: Basophils # (Auto) 0.1 Thou/mm3 (0.0-0.2); Basophils % (Auto) 0 % (0-2.5); Eosinophils # (Auto) 1.3 Thou/mm3 (0.0-0.5); Eosinophils % (Auto) 4 % (0-10); Hematocrit 22.2 % (41.0-53.0); Hemoglobin 7.1 g/dL (13.5-16.0); Immature Granulocytes Auto 2.67 Thou/mm3 (0.00-0.00); Lymphocytes # (Auto) 0.5 Thou/mm3 (1.0-4.8); Lymphocytes % (Auto) 2 % (10-50); Mean Corpuscular HGB Conc 32.0 g/dl (31.0-37.0); Mean Corpuscular Hemoglobin 24.0 pg (25.0-35.0); Mean Corpuscular Volume 75 fL (80-100); Monocytes # (Auto) 0.9 Thou/mm3 (0.0-0.8); Monocytes % (Auto) 3 % (0-12); Neutrophils # (Auto) 26.3 Thou/mm3 (1.8-7.7); Neutrophils % (Auto) 83 % (37-80); Nucleated Red Blood Cell # 0.10 Thou/mm3 (0.00-0.00); Nucleated Red Blood Cell % 0 /100 WBC (0); Platelet Count 360 Thou/mm3 (140-440); RDW Standard Deviation 53.4 fL (35.1-43.9); Red Blood Count 2.96 Miln/mm3 (4.50-5.90); White Blood Count 31.7 Thou/mm3 (3.8-10.6)
[2025-05-01 06:39] LABS: Alanine Aminotransferase 13 U/L (10-49); Albumin, Serum 3.1 gm/dL (3.4-4.8); Albumin/Globulin Ratio 1.1 (1.2-2.2); Alkaline Phosphatase 133 U/L (46-116); Anion Gap 12 (7-16); Aspartate Amino Transferase 18 U/L (0-34); BUN/Creatinine Ratio 21 Ratio (12-20); Bilirubin,Total 0.5 mg/dL (0.3-1.2); Blood Urea Nitrogen 45 mg/dL (9-23); Calcium 9.0 mg/dL (8.3-10.6); Calcium (Corrected) 9.7 mg/dL (8.5-10.1); Carbon Dioxide 23.8 mMol/L (20.0-31.0); Chloride 90 mMol/L (98-107); Creatinine (Component) 2.1 mg/dL (0.6-1.3); Estimated Creatinine Clearance 38.7 mL/min (>60); Globulin 2.8 gm/dL (2.3-3.5); Glucose 217 mg/dL (74-106); Osmolality,Calculated 271 (275-295); Potassium 4.0 mMol/L (3.4-5.1); Sodium 126 mMol/L (136-145); Total Protein 5.9 gm/dL (5.7-8.2); eGFR 32 See Note
[2025-05-01] MEDS: ALBUMIN HUMAN 25% IVPB 25 GM/100 ML BTL IV (08:24)
--- NOTE | 2025-05-01 08:48 | PD.RESPRO ---
Documentation for date of: 05/01/25 Subjective Subjective Interval history: History per ICU h and p: Mr Sanchez is a 80-year-old male with significant past medical history of CVA s/p trach/PEG tube, chronic hypoxic respiratory failure, MRSA pneumonia, Pseudomonas UTI, MRSA bacteremia, sacral ulcer, IDDM type II, hypertension, hyperlipidemia, vertebral osteomyelitis, acute pancreatitis, calculus cholelithiasis, MARGARETTE requiring hemodialysis in the past, and decubitus ulcers brought in by [facility] by the [facility] [place] with chief complaint of fever for past 2 days. As per nursing facility staff, the patient is nonverbal at baseline with GCS score is 5, and they provided a note to rule out sepsis. The at bedside is a poor historian, and believe that the patient still interacts with her. Initially in the ED her vitals were BP 128/58, pulse 123, RR 29, temperature 100.9, saturating 100% on 40 L FiO2 via tracheostomy tube. Labs are significant for white count of 28.6, hemoglobin 8.2, MCV 74, platelet 368, ESR 102, D-dimer greater than 3820, ABG revealed pH 7.30, pCO2 41, sodium 117 with corrected sodium for hyperglycemia is 123, potassium 4.1, chloride 87, bicarb 19.9, anion gap 10, BUN/creatinine 36/1.5, GFR 47, blood sugar 299, lactic acid 2.2, magnesium 2.0, T. bili 1.8, direct bilirubin 1.4, AST/ALT/ALP 71/47/229, troponin less than 0.020, CRP greater than 10.0, BNP 138, albumin 3.2, Pro-Tevin 2.28, UA revealed dark yellow urine, turbid, 2+ protein, 3+ blood, leukocyte esterase positive, RBC 1847, WBC 1892, urine bacteria none. Chest x-ray revealed extensive bilateral pneumonia. PMH: As mentioned above SHX: Positive abdominal surgery, tracheostomy, gastrostomy and knee joint replacement Family history: Unobtainable Social history: He is , often comes to visit, others unobtainable Medications: To be reconciled Allergies: NYLA inhibitors, upper airway edema, ARB's for airway edema The patient was given 1 L of bolus normal saline in the ED, vancomycin and cefepime IV x 1, and he is MAP dropped down to less than 65, and was started on Levophed. The patient was admitted to ICU for further management of septic shock secondary to pneumonia and UTI. 04/27/2025: pt admitted to ICU, Nephrology consulted patient seen and examined in ICU pt on pressors, pt is unresponsive to voice and pain, Pupils are fixed and non responsive to light. pt has sacral wounds being examined by wound nurse divya. pt appears hypervolemic on exam, BLE edematous. ICU managing fluids, Na 118, Cl 88, hco3 17, BUN 35, Cr 1.6, Serum Osm 257 UA with 2+ protein 3+ blood. Urine looks concentrated suspect hypervolemia hyponatremia, reccomend diuretics and albumin 04/28/2025: patient seen and examined in the ICU. Pt opens eyes spontaneously. appears hypervolemic on exam with ELE and ELE with significant edema, ICU managing fluids, Na 120, K 3.7 Cl 88, CO2 17, BUN 42 from 35,Cr 1.8 from 1.6. suspect hypervolemic hyponatremia, reccomend trial of 40 IV lasix and IV albumin, bicitra, procrit epogen 10 000 04/29/2025: Patient examined at bedside in the ICU, remains bedbound on blood pressure support via trach. GCS 4T, patient is not following any commands at this time but does open eyes spontaneously. Hyponatremia improving slowly, will start salt tabs at this time and monitor sodium closely. Patient was given IV Lasix yesterday, with minimal improvement. He still appears significantly fluid overloaded, will give albumin for now. 04/30/2025: Patient seen and examined in the ICU, with trach, uop is minimal, german catheter was removed, straight cath q4h with bladder scans. L femoral catheter removed, Bcx pending, WBC elevated to 34, Na 122, BUN 46 from 31, Cr 2.2 from 2. query UTI, vs bacteremia. , HR 100s, BP normotensive. on exam pt has significant edema query whether pt is hypervolemic vs intravascularly down, recommend aldactone 50, given 1L LR per ICU. 05/01/2025: Patient seen and examined in the ICU, trach is midline wo crusting or oozing secretions minimal, straight cath q4 hr with 400 UOP, B cx GPC 1/2 tubes. WBC 31 from 34, pt appears volume overloaded on exam, lungs sounds difficult to appreciate given pt habitus, BUN 46, Cr 2.1 from 2.2. continues on vanc and zosyn. Plan for HD today with fluid removal. reccomend holding fluids today. BP 90s/40s. Exam Vital Signs Temp Pulse Resp BP Pulse Ox O2 Del Method FiO2 98.4 F 102 H 20 127/67 92 L Mechanical Ventilation 35 05/01/25 08:41 05/01/25 08:41 05/01/25 08:41 05/01/25 08:41 05/01/25 08:41 04/30/25 16:00 05/01/25 08:41 Narrative Exam General: No acute distress, comatose, previously noted to open eyes spontaneously HEENT: Moist mucous membranes, oropharynx not assessed (contracted jaw) Neck: trach in place midline CVS: regular rate and rythm, +murmor , rubs or gallops Lungs: Mild rhonchi throughout the lung field, no wheezing, crackles or decreased breath sounds Abd: Soft, NT, slightly distended, +BS, +epigastric peg tube in place with no errythema crusting or drainage around tube. : no german. Ext: diffuse edema of upper and 2+ pitting of the lower extrem, warm and well perfused, R femoral lines Skin: Multiple stages of decubitus ulcers on buttoks and sacrum , L heel with 3cm bruise violacious Psych: comatose Objective Labs 05/01/25 05:38 05/01/25 05:38 Labs: Laboratory Results - last 24 hr 04/30/25 04/30/25 04/30/25 05:25 13:33 16:15 WBC RBC Hgb Hct MCV MCH MCHC RDW Std Deviation Plt Count Neut % (Auto) Lymph % (Auto) [place] % (Auto) Eos % (Auto) Baso % (Auto) Neut # (Auto) Lymph # (Auto) [place] # (Auto) Eos # (Auto) Baso # (Auto) Immature Gran # (Auto) Absolute Nucleated RBC Immature Gran % Nucleated RBC % Puncture Site Right Radial ABG pH 7.31 L ABG pCO2 43 ABG pO2 69 L ABG HCO3 22 ABG O2 Saturation 94 ABG Base Excess -4 L FiO2 30 Sodium Potassium Chloride Carbon Dioxide Anion Gap BUN Creatinine Estim Creat Clear Calc eGFR BUN/Creatinine Ratio Glucose Calculated Osmolality Lactic Acid 1.5 Calcium Corrected Calcium Total Bilirubin AST ALT Alkaline Phosphatase Total Protein Albumin Globulin Albumin/Globulin Ratio Hepatitis A IgM Ab Non Reactive Hep Bs Antigen Non Reactive Hep Bs Antibody NonReact(Not Immune) L Hep B Core IgM Ab Non Reactive Hepatitis C Antibody Non Reactive 05/01/25 05/01/25 04:07 05:38 WBC 31.7 H RBC 2.96 L Hgb 7.1 L Hct 22.2 L MCV 75 L MCH 24.0 L MCHC 32.0 RDW Std Deviation 53.4 H Plt Count 360 Neut % (Auto) 83 H Lymph % (Auto) 2 L [place] % (Auto) 3 Eos % (Auto) 4 Baso % (Auto) 0 Neut # (Auto) 26.3 H Lymph # (Auto) 0.5 L [place] # (Auto) 0.9 H Eos # (Auto) 1.3 H Baso # (Auto) 0.1 Immature Gran # (Auto) 2.67 H Absolute Nucleated RBC 0.10 H Immature Gran % 8 H Nucleated RBC % 0 Puncture Site Right Radial ABG pH 7.30 L ABG pCO2 50 H ABG pO2 64 L ABG HCO3 25 ABG O2 Saturation 93 ABG Base Excess -2 FiO2 35 Sodium 126 L Potassium 4.0 Chloride 90 L Carbon Dioxide 23.8 Anion Gap 12 BUN 45 H Creatinine 2.1 H Estim Creat Clear Calc 38.7 L eGFR 32 L BUN/Creatinine Ratio 21 H Glucose 217 H D Calculated Osmolality 271 L Lactic Acid Calcium 9.0 Corrected Calcium 9.7 Total Bilirubin 0.5 AST 18 ALT 13 Alkaline Phosphatase 133 H Total Protein 5.9 Albumin 3.1 L Globulin 2.8 Albumin/Globulin Ratio 1.1 L Hepatitis A IgM Ab Hep Bs Antigen Hep Bs Antibody Hep B Core IgM Ab Hepatitis C Antibody ABG Interpretation ABG results: 04/27/25 04/27/25 04/27/25 02:12 07:39 09:19 ABG pH 7.30 L 7.18 L* D 7.24 L ABG pCO2 41 53 H D 44 ABG pO2 99 98 110 H ABG HCO3 20 20 19 L ABG O2 Saturation 98 98 99 H ABG Base Excess -6 L -9 L -8 L 04/27/25 04/28/25 04/30/25 12:15 04:10 04:21 ABG pH 7.28 L 7.34 L 7.26 L ABG pCO2 39 36 46 D ABG pO2 135 H D 111 H D 66 L D ABG HCO3 18 L 19 L 20 ABG O2 Saturation 100 H 99 H 93 ABG Base Excess -8 L -6 L -6 L 04/30/25 05/01/25 16:15 04:07 ABG pH 7.31 L 7.30 L ABG pCO2 43 50 H ABG pO2 69 L 64 L ABG HCO3 22 25 ABG O2 Saturation 94 93 ABG Base Excess -4 L -2 Quality Measures Quality Measures VTE prophylaxis Advance care planning discussed with:: other Assessment & Plan Assessment Current Active Medications: Generic Name Dose Route Start Last Admin Trade Name Freq PRN Reason Stop Dose Admin Acetaminophen 650 mg 04/27/25 03:11 04/28/25 07:48 Acetaminophen 325 Mg Tablet PO 05/27/25 03:10 650 mg Q4HR PRN Administration PAIN SCALE 1-3 (mild Aspirin 81 mg 04/27/25 09:00 04/30/25 09:21 Aspirin 81 Mg Chew GT 05/27/25 08:59 Not Given QDAY IMANI Citric Acid/Sodium Citrate 30 ml 04/28/25 10:00 04/30/25 21:25 Citric Acid/Sodium Citr 15 Ml Udc (Bicitra) PO 05/28/25 09:59 30 ml BID IMANI Administration Dextrose 25 ml 04/27/25 03:37 Dextrose 50%-Water Inj 50 Ml Syringe IV 05/27/25 03:36 Q15MIN PRN BG 50-70 responsive npo pt Dextrose 50 ml 04/27/25 03:37 Dextrose 50%-Water Inj 50 Ml Syringe IV 05/27/25 03:36 Q15MIN PRN BG <50 OR BG <70 & pt unresponsive Epoetin Marc 10,000 unit 05/01/25 11:00 Epoetin Marc-Epbx Inj 10,000 Unit/Ml Vial (Esrd) SC 05/01/25 11:01 X1 ONE Glucagon 1 mg 04/27/25 03:37 Glucagon Inj 1 Mg Vial IM Q15MIN PRN BG <70, and no IV access Heparin Sodium (Porcine) 5,000 unit 04/27/25 06:00 05/01/25 05:19 Heparin Sod Inj 5000 Unit/Ml Vial SC 05/11/25 05:59 5,000 unit Q8HR IMANI Administration Heparin Sodium (Porcine) 3,000 unit 04/30/25 11:01 04/30/25 16:44 Heparin Sod Inj 1000 Unit/Ml Vial 10 Ml INDWELLCAT 05/14/25 11:00 3,000 unit PRN PRN Administration DIALYSIS Norepinephrine/Dextrose 8 mg in 250 mls @ 11.522 mls/hr 04/28/25 12:43 05/01/25 06:30 Levophed In D5w 8mg/250ml IV 05/28/25 12:42 0.05 mcg/kg/min .[id number] PRN 11.522 mls/hr PER PROTOCOL Titration Protocol 0.05 MCG/KG/MIN Albumin Human 25 gm in 100 mls @ 100 mls/hr 04/28/25 14:30 05/01/25 08:24 Albuminar-25 Ivpb IV 05/01/25 14:29 100 mls/hr BID IMANI Administration Albumin Human 25 gm in 100 mls @ 100 mls/min 04/30/25 09:52 04/30/25 14:45 Albuminar-25 Ivpb IV 05/03/25 09:51 100 mls/min PRN PRN Administration DIALYSIS Piperacillin/Tazobactam/Dextrose 3.375 gm in 50 mls @ 12.5 mls/hr 04/30/25 22:00 05/01/25 05:20 Zosyn IV 05/07/25 21:59 12.5 mls/hr Q8HR IMANI Administration Insulin Degludec 18 unit 04/29/25 21:00 04/30/25 21:38 Insulin Degludec 5 Unit/0.05 Ml (Per 5 Units) SC 05/29/25 20:59 18 unit HS IMANI Administration Insulin Human Lispro 0 unit 04/27/25 06:00 05/01/25 05:20 Insulin Lispro (Admelog) 1 Unit/0.01 Ml Unit SC 05/27/25 05:59 1 unit Q6HR IMANI Administration Protocol Magnesium Hydroxide 30 ml 04/27/25 03:11 Milk Of Magnesia Susp 30 Ml Udc PO 05/27/25 03:10 QDAY PRN CONSTIPATION Metoclopramide HCl 5 mg 04/29/25 22:00 05/01/25 05:18 Metoclopramide Liqd 10 Mg/10 Ml Udc GT 05/29/25 21:59 5 mg Q8HR IMANI Administration Midodrine 5 mg 04/28/25 14:00 05/01/25 05:19 Midodrine 5 Mg Tablet PO 05/28/25 13:59 5 mg TID IMANI Administration Mupirocin 0 gm 04/28/25 22:00 05/01/25 05:19 Mupirocin Oint 2% 15 Gm Tube TOP 05/05/25 21:59 1 applicatio TID IMANI Administration Oxycodone/Acetaminophen 1 tab 04/27/25 18:29 Oxycodone/Apap 5/325 Tablet GT 05/02/25 18:28 Q6HR PRN Pain 7-10 Pharmacy Consult 1 each 05/01/25 09:00 Vancomycin Pharmacy To Dose 1 Each Each IV 05/31/25 08:59 QDAY PRN CONSULT Plan Mr Sanchez is a 80-year-old gentleman with hx of CVA s/p trach/PEG tube, chronic hypoxic respiratory failure, MRSA pneumonia, Pseudomonas UTI, MRSA bacteremia, sacral ulcer, IDDM type II (poorl controlled A1c 10.5), hypertension, hyperlipidemia, vertebral osteomyelitis, hx of MARGARETTE requiring hemodialysis in the past, whose baseline mental status is GCS 5, admitted to ICU for septic shock 2/2 PNA vs UTI, requiring pressors and hyponatremia, with minimal UOP 280 ccs, trial lasix and albumin given suspicion of hypervolemic hyponatremia however UOP is minimal, german cath removed and L fem cath removed, WBC 34, 1/2 bcx with GPC, on vanc and zosyn. query UTI, WBC remains elevated, downtrending today 31 from 34. pt with significant anisarca, however query low intravascular volume. pt may benefit from aldactone 50 if >concern for hypervolemia. holding IV fluids today, Plan for HD today with fluid removed. Hypervolemic hyponatremia - hyponatremia resolving query hypovolemic hyponatremia The patient presented with sodium of 117, but the corrected sodium was 123 (pt hyerglycemic to 288) The patient received 1 L of normal saline in the ED for sepsis and 1 L LR in the ICU Serum osm 257: hypernatremic, hypotonic, hypervolemic on exam: query CHF vs renal failure, vs cirrhosis vs nephrotic syndrome (UA with 2+ protein) - Was given IV lasix 40mg x1 in 04/28 with minimal improvement - 04/29: Na 120 -> 121 , appears hypervolemic on exam BUE and BLE edematous. - 04/30: Na 122, significant anisarca, start HD - 05/01: Na 126 (Corrected Na is 130 given serum glucose 217) significant ansiarca, HD today with fluid removal hold iv fluids today Last HD: 04/30, 05/01 Plan: - HD today w fluid removal - Consider starting aldactone 50 - Continue IV Albumin 25mg IV BID - Hyponatremia improving slowly, (gave salt tabs) - rec holding fluids today - On Bicitra given HCO3 low may help correct hyponatremia - Sodium checks per primary team MARGARETTE nonnephrotic range proteinuria Likely prerenal secondary to sepsis Presented with creatinine of 1.5, baseline creatinine about 0.7-0.8 Patient received 1 L of normal saline in the ED, given c/f worsening his hyponatremia, sepsis protocol resusitation was not initaited. given 1L LR in the ICU Urine Protein Cr ratio: 115: 53= 2.6 (nonnephrotic rage protienuria) - 04/27 Cr 1.6, BUN 35 - 04/28, Cr 1.8, BUN 42 - 04/29: BUN 43 and GFR 36 - 04/30: Cr 2.2 from 2, BUN 46 from 31 - 05/01: Cr 2.1 from 2.2, BUN 45 from 46 (stable) BP 90s/40s, Plan: - daily CMP, Mg, Phos - Renally dose medications - Avoid nephrotoxins Lactic acidosis 2/2 sepsis- resolved Likely complicated by diarrhea with bicarbonate loss via stool Patient received 1 L of normal saline in the ED Lactic acid: 2.5 to 1.0 bicarb low, - cont bicitra - Daily CMP - fluid resusitation per primary team other medical problems 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 Due to concern of overcorrection of hyponatremia, full 30 cc/kg body fluid was not given. repeat bcx pending Bilateral healthcare associated pneumonia Possible acute hypoxic respiratory failure 2/2 query aspiration pneumonia Severe UTI -on abx german removed, straight cath q4hr hypotension - on midodrine 5 mg TID Chronic respiratory failure 2/2 S/p CVA mech ventilation per trach tube, Transaminitis - resolved Diarrhea - cdiff negative Nutrition per peg tube Acute hgb drop- now stable Microcytic anemia - likely dilutional given decrease in other cell lines, - give procrit 10 000 - iron deficiency, iron studies low, retic count elevated. Non-anion gap metabolic acidosis Insulin-dependent diabetes mellitus type 2 - A1c 10.5 Multistage decubitus ulcer HTN HLD - managment per primary team Plan discussed with nephrology attending Dr. Camila Conner MD Internal Medicine PGY-1 Attending Provider Attestation/Addendum Patient seen and examined with resident physician Dr. Conner. Note reviewed, agree with findings and recommendations. Spoke to -- Patient with hypervolemic hyponatremia. Did receive 1 liter IV fluid. Patient basically bedbound with status post trach and PEG for the last 5 years. Hold free water flushes for now. Medications and labs reviewed. Will monitor serum sodium closely. Hold off on 3% hypertonic saline. Plan of care discussed with ICU team. 05/02/2025 Clinically patient looks edematous-patient was given diuretics, IV fluids with no improvement in urine output. White count still elevated. Suspected pneumonia-on antibiotics. Due to persistent hyponatremia, significant fluid overload and oligoanuric state-decided to proceed with dialysis. Family agreed. Vas-Cath placed by ICU team. Patient currently on dialysis. blood pressure significantly dropped. Ultrafiltration stopped. Hemodialysis for 2.5hours, 2K, ultrafiltration 0 L, Epogen 6000, no heparin ordered. Currently on pressors. Plan of care discussed with the dialysis nurse. Please see dialysis flowsheet for further details. Care discussed with Dr. Felipe. Critical care time spent more than 40 minutes regarding plan of care and disease management. Prognosis remains guarded. Sodium better at 126. White count 31.7
[2025-05-01 09:23] LABS: Vancomycin,Random 20.5 mcg/mL
--- NOTE | 2025-05-01 09:33 | PC.NURSE ---
BP TRENDING DOWN, MD SANDOVAL AT BEDSIDE W/ ORDER TO DECREASE TX ORDER TO JUST A CLEANING, ORDER CARRIED OUT WILL CONT. TO MONITOR. MD JOHN NOTIFIED
--- NOTE | 2025-05-01 09:37 | PC.NURSE ---
BP REMAINS LOW MD SANDOVAL W/ ORDER FOR BEDSIDE NURSE TO INCREASE BP MEDICATION, ORDER CARRIED OUT WILL CONT. TO MONITOR
--- NOTE | 2025-05-01 11:01 | PC.NURSE ---
TRANSFUSION OF 1 UNIT OF PRBC
[2025-05-01] MEDS: EPOETIN ALFA-EPBX INJ 10,000 UNIT/ML VIAL (ESRD) 10000 UNIT SC (11:32)
[2025-05-01] MEDS: CITRIC ACID/SODIUM CITR 15 ML UDC (BICITRA) 30 ML PO ×2 (11:44→20:05)
[2025-05-01] MEDS: ASPIRIN 81 MG CHEW GT (11:44)
[2025-05-01] MEDS: HEPARIN SOD INJ 1000 UNIT/ML VIAL 10 ML 3000 UNIT INDWELLCAT (11:53)
--- NOTE | 2025-05-01 15:44 | PC.SS ---
Rounding Note: Patient is Trach/PEG. Pressor support d/c'd. Patient received dialysis today. Dr. Jensen consulting. Feeds in place. Patient receiving IV antibiotics. Afebrile. No pending labs.
--- NOTE | 2025-05-01 15:45 | PD.RESPRO ---
Documentation for date of: 05/01/25 Subjective Subjective Interval history: 04/27/2025: Patient is seen and examined at bedside in the ICU. Per patient's family and nursing facility, at baseline patient communicates with blinking, says yes or no but blinking once or twice respectively and receives pain medication, oxycodone as needed in the facility. Vitals are stable and patient is on low-dose Levophed 0.05 at the time of examination. On physical examination, patient is not responding even to painful stimuli and noted to have decubitus ulcer on the side and heel. Bilateral pupils are round, equal and reacting to light. Patient was given 1 more liter of bolus after coming to the ICU in view of suspected prerenal MARGARETTE due to shock. Also noted to have low albumin on CMP for which patient is given 25 g of albumin. Slowly patient noted to come off the vasopressors. Still appears to be hyponatremic which is slowly improving. [employer] Facilities Manager, Dr. Palma is consulted and she recommended to continue to monitor sodium levels and no need of any active intervention. After coming to the ICU, patient noted to have improved urine output around 30 to 50 cc/h. As patient came off the vasopressors gradually, started on tube feeds. Will continue to monitor urine output, renal functions, sodium. ABG done this morning showed mild metabolic acidosis. 04/28/2025: Patient seen at bedside, mentation improved, was more interactive today, he opens both eyes and tracks, occasionally blinks in response to questions. Patient was off pressors this morning. Midodrine dose was decreased to avoid masking underlying shock. Due to the increasing creatinine, 1L LR was given for suspected prerenal MARGARETTE, urine output remains low at 365 ml in 24 hours. Discussed with Nephrology later on who felt that patient may be fluid overloaded instead and have hypervolemic hypernatremia, so trial of Lasix 40 mg IV x1 given in afternoon. Bicitra 20 ml BID also added. Patient got 2 doses of 25 gm albumin. Repeated renal panel did not show change in creatinine so far. Sodium remained steady at 120. Urine output slightly increased. However, patient started requiring pressors again as MAP dropped to 57. He remains on low dose norepinephrine at 0.03-0.05 range. MRSA screen was positive therefore mupirocin was added. 04/29/2025: Patient is seen and examined at bedside in the ICU. Appears to be at his baseline. Vital signs stable and patient is still on low-dose vasopressor. Labs done this morning showed WBC 31.8, sodium 121, creatinine 1.9. Noted to have good urine output overnight. As patient is still requiring vasopressors, suspected ongoing infection for which left femoral line and Abbott catheter was removed. Later patient was slowly weaned off the vasopressors and noted to have adequate MAP greater than 65 mmHg without the vasopressor need. Tried to place a peripheral line later in the day but unsuccessful as the patient had severe anasarca. PICC line placement is ordered for tomorrow morning. Will continue antibiotics and the rest of the medications through G-tube. Will continue to monitor renal functions. 04/30/2025: Patient is seen and examined at bedside in the ICU. Overnight, patient noted to have only 200 mL of urine in the bladder on bladder scans. No acute overnight events. Vital signs are stable and patient is off vasopressors completely since yesterday. In and Out catheter is placed this morning and drained 200 mL of urine. As the patient is oliguric and not making adequate urine output, high flow catheter is placed in right femoral vein for dialysis and also for the venous access. Patient tolerated the procedure well. Labs done this morning showed improving WBC, sodium 122, bicarb 19.3, creatinine 2.2, BUN 46. A bolus of LR is given, despite approach patient did not make any urine output in the day for which religious leader, Dr. Jensen recommended HD session for today in view of suspected ongoing ATN. During dialysis, patient noted to have hypotension for which patient was given a dose of albumin and placed on Levophed. Will continue to monitor blood pressures, wean off vasopressors as tolerated. Will continue to do bladder scan and do In and Out catheterization. Will continue Zosyn for now. Will do right heart catheterisation tomorrow if needed to assess the volume status and pressure in the heart and lungs 05/01/2025: Patient is seen and examined at bedside in the ICU. Overnight, patient made only 200 mL of urine. No acute overnight events. Patient is on low-dose Levophed overnight. Vitals are stable. Physical examination remains unchanged. Labs done this morning showed downtrending WBC, 31.7, hemoglobin 7.1, Sodium 126, chloride 90, BUN 45, creatinine 2.1, glucose 217. Patient was started on HD as he is still not able to make urine output. Initially religious leader, Dr. Jensen recommended to remove 1 L of fluid but during the dialysis patient was noted to have low blood pressure for which a dose of albumin was given. 1 unit of PRBC transfusion was done during the dialysis. Later patient came off the Levophed and able to maintain blood pressures. Blood culture showed GPC in 1 bottle, likely contaminant but in the setting of previous MRSA pneumonia send bacteremia, added vancomycin, will discontinue once the blood cultures come back negative. As the patient is hemodynamically stable and does not require any further ICU management, will downgrade to floors for further management. Exam Vital Signs Temp Pulse Resp BP Pulse Ox O2 Del Method FiO2 97.3 F 93 20 100/53 L 100 Mechanical Ventilation 35 05/01/25 12:01 05/01/25 14:45 05/01/25 14:45 05/01/25 14:45 05/01/25 14:45 05/01/25 14:00 05/01/25 14:00 Narrative Exam General: At his baseline. Spontaneously opening and blinking. HEENT: Normocephalic, atraumatic, mucous membranes moist. Heart: Regular rate and rhythm, no murmurs. Lungs: Clear to auscultation with no wheezing or crackles. Abdomen: Soft, nondistended, nontender, positive bowel sounds. ?No guarding or rebound tenderness. Neurologic: At his baseline. Spontaneously opening and blinking to give response. Extremities: noted Anasarca Skin: No rash or ecchymoses. noted to have decubitus ulcers Objective Labs 05/16/25 04:46 05/16/25 04:46 Labs: Laboratory Results - last 24 hr 04/30/25 05/01/25 05/01/25 16:15 04:07 05:38 WBC 31.7 H RBC 2.96 L Hgb 7.1 L Hct 22.2 L MCV 75 L MCH 24.0 L MCHC 32.0 RDW Std Deviation 53.4 H Plt Count 360 Neut % (Auto) 83 H Lymph % (Auto) 2 L Cuming % (Auto) 3 Eos % (Auto) 4 Baso % (Auto) 0 Neut # (Auto) 26.3 H Lymph # (Auto) 0.5 L Cuming # (Auto) 0.9 H Eos # (Auto) 1.3 H Baso # (Auto) 0.1 Immature Gran # (Auto) 2.67 H Absolute Nucleated RBC 0.10 H Immature Gran % 8 H Nucleated RBC % 0 Puncture Site Right Radial Right Radial ABG pH 7.31 L 7.30 L ABG pCO2 43 50 H ABG pO2 69 L 64 L ABG HCO3 22 25 ABG O2 Saturation 94 93 ABG Base Excess -4 L -2 FiO2 30 35 Sodium 126 L Potassium 4.0 Chloride 90 L Carbon Dioxide 23.8 Anion Gap 12 BUN 45 H Creatinine 2.1 H Estim Creat Clear Calc 38.7 L eGFR 32 L BUN/Creatinine Ratio 21 H Glucose 217 H D Calculated Osmolality 271 L Calcium 9.0 Corrected Calcium 9.7 Total Bilirubin 0.5 AST 18 ALT 13 Alkaline Phosphatase 133 H Total Protein 5.9 Albumin 3.1 L Globulin 2.8 Albumin/Globulin Ratio 1.1 L Random Vancomycin 20.5 Blood Type Antibody Screen Crossmatch Blood Bank Wristband ID 05/01/25 09:23 WBC RBC Hgb Hct MCV MCH MCHC RDW Std Deviation Plt Count Neut % (Auto) Lymph % (Auto) Cuming % (Auto) Eos % (Auto) Baso % (Auto) Neut # (Auto) Lymph # (Auto) Cuming # (Auto) Eos # (Auto) Baso # (Auto) Immature Gran # (Auto) Absolute Nucleated RBC Immature Gran % Nucleated RBC % Puncture Site ABG pH ABG pCO2 ABG pO2 ABG HCO3 ABG O2 Saturation ABG Base Excess FiO2 Sodium Potassium Chloride Carbon Dioxide Anion Gap BUN Creatinine Estim Creat Clear Calc eGFR BUN/Creatinine Ratio Glucose Calculated Osmolality Calcium Corrected Calcium Total Bilirubin AST ALT Alkaline Phosphatase Total Protein Albumin Globulin Albumin/Globulin Ratio Random Vancomycin Blood Type O Positive Antibody Screen NEGATIVE Crossmatch See Detail Blood Bank Wristband ID Yes ABG Interpretation ABG results: 04/27/25 04/27/25 04/27/25 02:12 07:39 09:19 ABG pH 7.30 L 7.18 L* D 7.24 L ABG pCO2 41 53 H D 44 ABG pO2 99 98 110 H ABG HCO3 20 20 19 L ABG O2 Saturation 98 98 99 H ABG Base Excess -6 L -9 L -8 L 04/27/25 04/28/25 04/30/25 12:15 04:10 04:21 ABG pH 7.28 L 7.34 L 7.26 L ABG pCO2 39 36 46 D ABG pO2 135 H D 111 H D 66 L D ABG HCO3 18 L 19 L 20 ABG O2 Saturation 100 H 99 H 93 ABG Base Excess -8 L -6 L -6 L 04/30/25 05/01/25 16:15 04:07 ABG pH 7.31 L 7.30 L ABG pCO2 43 50 H ABG pO2 69 L 64 L ABG HCO3 22 25 ABG O2 Saturation 94 93 ABG Base Excess -4 L -2 Quality Measures Quality Measures VTE prophylaxis Advance care planning discussed with:: spouse Assessment & Plan Assessment Current Active Medications: Generic Name Dose Route Start Last Admin Trade Name Freq PRN Reason Stop Dose Admin Acetaminophen 650 mg 04/27/25 03:11 04/28/25 07:48 Acetaminophen 325 Mg Tablet PO 05/27/25 03:10 650 mg Q4HR PRN Administration PAIN SCALE 1-3 (mild Aspirin 81 mg 04/27/25 09:00 05/01/25 11:44 Aspirin 81 Mg Chew GT 05/27/25 08:59 81 mg QDAY IMANI Administration Citric Acid/Sodium Citrate 30 ml 04/28/25 10:00 05/01/25 11:44 Citric Acid/Sodium Citr 15 Ml Udc (Bicitra) PO 05/28/25 09:59 30 ml BID IMANI Administration Dextrose 25 ml 04/27/25 03:37 Dextrose 50%-Water Inj 50 Ml Syringe IV 05/27/25 03:36 Q15MIN PRN BG 50-70 responsive npo pt Dextrose 50 ml 04/27/25 03:37 Dextrose 50%-Water Inj 50 Ml Syringe IV 05/27/25 03:36 Q15MIN PRN BG <50 OR BG <70 & pt unresponsive Glucagon 1 mg 04/27/25 03:37 Glucagon Inj 1 Mg Vial IM Q15MIN PRN BG <70, and no IV access Heparin Sodium (Porcine) 5,000 unit 04/27/25 06:00 05/01/25 13:39 Heparin Sod Inj 5000 Unit/Ml Vial SC 05/11/25 05:59 5,000 unit Q8HR IMANI Administration Heparin Sodium (Porcine) 3,000 unit 04/30/25 11:01 05/01/25 11:53 Heparin Sod Inj 1000 Unit/Ml Vial 10 Ml INDWELLCAT 05/14/25 11:00 3,000 unit PRN PRN Administration DIALYSIS Norepinephrine/Dextrose 8 mg in 250 mls @ 11.522 mls/hr 04/28/25 12:43 05/01/25 13:35 Levophed In D5w 8mg/250ml IV 05/28/25 12:42 0.01 mcg/kg/min .[id number] PRN 2.304 mls/hr PER PROTOCOL Titration Protocol 0.05 MCG/KG/MIN Albumin Human 25 gm in 100 mls @ 100 mls/min 04/30/25 09:52 04/30/25 14:45 Albuminar-25 Ivpb IV 05/03/25 09:51 100 mls/min PRN PRN Administration DIALYSIS Piperacillin/Tazobactam/Dextrose 3.375 gm in 50 mls @ 12.5 mls/hr 04/30/25 22:00 05/01/25 13:38 Zosyn IV 05/07/25 21:59 12.5 mls/hr Q8HR IMANI Administration Insulin Degludec 18 unit 04/29/25 21:00 04/30/25 21:38 Insulin Degludec 5 Unit/0.05 Ml (Per 5 Units) SC 05/29/25 20:59 18 unit HS IMANI Administration Insulin Human Lispro 0 unit 04/27/25 06:00 05/01/25 11:44 Insulin Lispro (Admelog) 1 Unit/0.01 Ml Unit SC 05/27/25 05:59 1 unit Q6HR IMANI Administration Protocol Magnesium Hydroxide 30 ml 04/27/25 03:11 Milk Of Magnesia Susp 30 Ml Udc PO 05/27/25 03:10 QDAY PRN CONSTIPATION Metoclopramide HCl 5 mg 04/29/25 22:00 05/01/25 13:38 Metoclopramide Liqd 10 Mg/10 Ml Udc GT 05/29/25 21:59 5 mg Q8HR IMANI Administration Midodrine 5 mg 04/28/25 14:00 05/01/25 13:39 Midodrine 5 Mg Tablet PO 05/28/25 13:59 5 mg TID IMANI Administration Mupirocin 0 gm 04/28/25 22:00 05/01/25 13:39 Mupirocin Oint 2% 15 Gm Tube TOP 05/05/25 21:59 1 applicatio TID IMANI Administration Oxycodone/Acetaminophen 1 tab 04/27/25 18:29 Oxycodone/Apap 5/325 Tablet GT 05/02/25 18:28 Q6HR PRN Pain 7-10 Pharmacy Consult 1 each 05/01/25 09:00 Vancomycin Pharmacy To Dose 1 Each Each IV 05/31/25 08:59 QDAY PRN CONSULT Plan The patient is a 80-year-old male with significant past medical history of CVA s/p trach/PEG tube, chronic hypoxic respiratory failure, MRSA pneumonia, Pseudomonas UTI, MRSA bacteremia, sacral ulcer, IDDM type II, hypertension, hyperlipidemia, vertebral osteomyelitis, acute pancreatitis, calculus cholelithiasis, MARGARETTE requiring hemodialysis in the past, and decubitus ulcers brought in by [facility] by the [facility] [place] with chief complaint of fever for past 2 days. As per nursing facility staff, the patient is nonverbal at baseline with GCS score is 5, and they provided a note to rule out sepsis. The patient was given 1 L of bolus normal saline in the ED, vancomycin and cefepime IV x 1, and he is MAP dropped down to less than 65, and was started on Levophed. The patient was admitted to ICU for further management of septic shock secondary to pneumonia and UTI. 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 As patient appears to be fluid overloaded, full 30 cc/kg body fluid was not given. ECHO on 04/27 - Normal LV size and function. Estimated EF at 55 -60%%. Grade I diastolic dysfunction. Septum is flattened in systole and diastole D shaped LV consistent with right ventricular volume/pressure overload. Mildly increased. RV size. Normal RV function. Mild to moderate TR. estimated RVSP moderately elevated at 40-45 mm hg. - Started on Levophed, weaned off completely as of 04/27 and is on low dose levophed during dialysis - Midodrine 5mg TID as needed if MAP < 65 and SBP <100 - Started on zosyn and vancomycin ( 04/27 -04/29) and changed to Levofloxacin 750mg GT every 48th hrly( 04/29), restarted on zosyn as of 04/30. # ?Right heart failure and moderate pulmonary hypertension - Patient appears to have anasarca, also noted to have mild hypoalbuminemia - Echo on 04/27 - showed right ventricular volume/pressure overload, mild to moderate TR, RVSP elevated at 40 to 45 mmHg. EF is 55 to 60% - Will require cardiac catheterization after discharge to categorize pulmonary hypertension and needs treatment accordingly. #Hypertension, well controlled - Using Amlodipine 10mg every day and will Hold medications for now. Pulmonology: #Possible acute on chronic hypoxic respiratory failure 10/08 #Healthcare associated pneumonia #S/p chronic tracheostomy The patient presented with fever, was found to have bilateral pneumonia on chest x-ray, the baseline oxygen requirement is unknown, but currently on FiO2 30% - ET secretions cultures are positive for Pseudomonas, Proteus mirabilis, Staphylococcus hemolyticus - Repeat blood cultures on 04/29/2025, 1 set of culture came back positive for GPC but likely contaminant - Continue on mechanical ventilation through tracheostomy tube - Will continue Antibiotics, Vancomycin and zosyn GI #S/p PEG tube - Resumed tube feeds Renal # Hyponatremia, resolving The patient presented with sodium of 117, but corrected sodium was 123 --> 05/01, 126 The patient received 1 L of normal saline in the ED for sepsis and 1 more bolus of LR is given in the ICU - Will continue to monitor sodium levels - Patient is started on salt tablets twice daily - Hotel Recreational Facilities Manager, Dr. Jensen is consulted and will appreciate her recommendations. #MARGARETTE Likely prerenal leading to ATN secondary to sepsis Presented with creatinine of 1.5, baseline creatinine about 0.7-0.8 Patient received 1 L of normal saline in the ED - Patient appears to produce adequate urine output as of now - Will continue to monitor renal panel - Renally dose medications and Avoid nephrotoxins - Hotel Recreational Facilities Manager, Dr. Jensen is consulted and recommended HD today as patient is oliguric, 04/30, 05/01 without any fluid removal #Non-anion gap metabolic acidosis, resolved #Lactic acidosis 2/ sepsis, resolved - ikely due to septic shock causing MARGARETTE - Lactate at the time of admission is 2.1 which downtrended to 1, bicarb at the time of admission is 19.9 which improved to within normal limits -Will continue to monitor renal panel Endocrinology: #Insulin-dependent diabetes mellitus type 2 - Started on insulin degludec 13 units daily at night, increased to 18 units, adjusted to 22 units as of 05/01 based on blood sugars on morning labs - Sliding scale insulin lispro every 6 hourly with fingerstick blood sugar checks - A1c ordered - 10.5 Hematology: #Leukocytosis 2/2 sepsis Presented with white count of 28 - Daily a.m. labs for CBC - Treat the underlying cause sepsis #Microcytic anemia Likely 2/2 anemia of chronic disease, but could not rule out other differentials like nutritional deficiency - Iron panel, ferritin, folic acid, vitamin B12, reticulocyte count, peripheral smear and LDH ordered - showed iron deficiency - Will supplement iron once the infection is resolved - Daily a.m. labs for CBC ID #Septic shock, resolved 2/2 #Bilateral healthcare associated pneumonia Vs Severe UTI Chest x-ray revealed bilateral pneumonia, UA revealed UA revealed dark yellow urine, turbid, 2+ protein, 3+ blood, leukocyte esterase positive, RBC 1847, WBC 1892, urine bacteria none Patient received vancomycin and cefepime IV x 1 in the ED - Blood cultures and urine cultures done on 04/26 showed no growth after 48 hours - ET secretions cultures are positive for Pseudomonas, Proteus mirabilis, Staphylococcus hemolyticus - Repeat blood cultures on 04/29/2025, 1 set of culture came back positive for GPC but likely contaminant -Stopped vancomycin and Zosyn, started on levofloxacin 750 mg every 48 hourly through G-tube [04/29-, -Restarted zosyn on 04/30 and added vancomycin on 05/01 in view of GPC in blood culture. Skin: #Multistage decubitus ulcer Patient has multi stages decubitus ulcer at buttock, and heels - Wound care consultation done MSK: #Contracted extremities 2/ #Immobility - Physical therapy Health maintenance: Dispo: Patient admitted to ICU for further management of septic shock and hyponatremia Diet: G tube feeds DVT prophylaxis: Subcu heparin every 8 hourly CODE STATUS: Full code, confirmed by at bedside Patient plan of care was discussed with the Steel Pourer, Dr. Matteo Vigil, PGY2 Attending Provider Attestation/Addendum Patient seen and examined with above resident, Shayne Vigil MD. I agree with the findings, assessment, and plan of care as documented in separate versus below. Patient underwent urgent hemodialysis yesterday. Levophed was given consistently weaned off with initiation of midodrine. We we are able to improve hyponatremia with hemodialysis and fluid balance. Patient remains on appropriate antibiotics based on ETT cultures. Blood cultures were likely contaminant but is adequately covered based on the vancomycin. Zosyn was restarted yesterday. He remains afebrile at this point. Urinary catheter has been removed with straight cath being done intermittently Abbott will likely need to be replaced in the long-term. Repeat dialysis will be done today for continued optimization. Pulmonary compliance remains unchanged on mechanical ventilation. Fluid status overall remains difficult to discern at this point fluid removal may be not warranted given his also other components of protein calorie malnutrition with tube feeds resumed appropriately. Will continue to monitor closely in the ICU. Patient's was updated on plan at the bedside. Total critical care time: I personally spent 40 minutes for review of physiologic parameters, directing plan of care throughout the day, coordination of care with other subspecialist, and counseling patient's at bedside. This is exclusive of time spent teaching on staff or performing a separate billable procedures. Patient remains at significant risk for further morbidity and mortality warranting close monitoring care only available in ICU. Patient required critical care services for septic shock, complicated urinary tract infection, acute renal failure, chronic respiratory failure.
--- NOTE | 2025-05-01 16:37 | ESPR_ITS ---
<Statement entered by Pura Edwards MD - 05/01/25 20:02> I have reviewed the note and agree with the resident's assessment & plan with exceptions as below. I have personally reviewed labs, imaging, home meds/prior records, examined the patient, formulated and discussed management plan with the IM team. is a 80-year-old male with extensive past medical history including chronic respiratory failure, status post tracheostomy, G-tube, admitted for septic shock, and acute tubular necrosis requiring hemodialysis. Patient is currently bedbound and poor historian at this time and is only able to track with eye movements. Nephrology on consult, appreciate recommendations. Patient is currently on vancomycin and Zosyn for antibiotic coverage. Patient is getting In-N-Out cath 3 times a day after patient had indwelling Abbott removed as there was concerned that that was the source of infection. Repeat blood culture shows 1 out of 2 GPC, that could be contaminant, however will continue vancomycin. Initial blood cultures were no growth after 2 days. Patient has MRSA nares positive and multiple organisms on sputum culture likely related to colonization. Repeat hematology, electrolytes and chemistry in AM. Pura Edwards, PGY-2 Internal Medicine Documentation for date of: 05/01/25 Subjective Subjective Interval history: Patient admitted for septic shock secondary to pneumonia and UTI. Patient was given 1 more liter of bolus after coming to the ICU in view of suspected prerenal MARGARETTE due to shock. Patient also found to have hyponatremia which is slowly improving. No acute events overnight. Patient seen and examined at bedside in the ICU, pending transfer to floors. Vitals are stable, on low dose of levophed. Patient was given albumin and 1 unit pRBC during HD today due to low blood pressure. Patient started on HD as has not been able to make adequate urine, noted to be edematous diffusely. Exam Vital Signs Temp Pulse Resp BP Pulse Ox O2 Del Method FiO2 97.3 F 93 20 100/53 L 100 Mechanical Ventilation 35 05/01/25 12:01 05/01/25 14:45 05/01/25 14:45 05/01/25 14:45 05/01/25 14:45 05/01/25 14:00 05/01/25 15:56 Narrative Exam General: At his baseline. Spontaneously opening and blinking. HEENT: Normocephalic, atraumatic, mucous membranes moist. Heart: Regular rate and rhythm, no murmurs. Lungs: Clear to auscultation with no wheezing or crackles. Abdomen: Soft, nondistended, nontender, positive bowel sounds. ?No guarding or rebound tenderness. Neurologic: At his baseline. Spontaneously opening and blinking to give response. Extremities: noted Anasarca Skin: No rash or ecchymoses. noted to have decubitus ulcers Objective Labs 05/01/25 05:38 05/01/25 05:38 Labs: Laboratory Results - last 24 hr 05/01/25 05/01/25 05/01/25 04:07 05:38 09:23 WBC 31.7 H RBC 2.96 L Hgb 7.1 L Hct 22.2 L MCV 75 L MCH 24.0 L MCHC 32.0 RDW Std Deviation 53.4 H Plt Count 360 Neut % (Auto) 83 H Lymph % (Auto) 2 L [place] % (Auto) 3 Eos % (Auto) 4 Baso % (Auto) 0 Neut # (Auto) 26.3 H Lymph # (Auto) 0.5 L [place] # (Auto) 0.9 H Eos # (Auto) 1.3 H Baso # (Auto) 0.1 Immature Gran # (Auto) 2.67 H Absolute Nucleated RBC 0.10 H Immature Gran % 8 H Nucleated RBC % 0 Puncture Site Right Radial ABG pH 7.30 L ABG pCO2 50 H ABG pO2 64 L ABG HCO3 25 ABG O2 Saturation 93 ABG Base Excess -2 FiO2 35 Sodium 126 L Potassium 4.0 Chloride 90 L Carbon Dioxide 23.8 Anion Gap 12 BUN 45 H Creatinine 2.1 H Estim Creat Clear Calc 38.7 L eGFR 32 L BUN/Creatinine Ratio 21 H Glucose 217 H D Calculated Osmolality 271 L Calcium 9.0 Corrected Calcium 9.7 Total Bilirubin 0.5 AST 18 ALT 13 Alkaline Phosphatase 133 H Total Protein 5.9 Albumin 3.1 L Globulin 2.8 Albumin/Globulin Ratio 1.1 L Random Vancomycin 20.5 Blood Type O Positive Antibody Screen NEGATIVE Crossmatch See Detail Blood Bank Wristband ID Yes ABG Interpretation ABG results: 04/27/25 04/27/25 04/27/25 02:12 07:39 09:19 ABG pH 7.30 L 7.18 L* D 7.24 L ABG pCO2 41 53 H D 44 ABG pO2 99 98 110 H ABG HCO3 20 20 19 L ABG O2 Saturation 98 98 99 H ABG Base Excess -6 L -9 L -8 L 04/27/25 04/28/25 04/30/25 12:15 04:10 04:21 ABG pH 7.28 L 7.34 L 7.26 L ABG pCO2 39 36 46 D ABG pO2 135 H D 111 H D 66 L D ABG HCO3 18 L 19 L 20 ABG O2 Saturation 100 H 99 H 93 ABG Base Excess -8 L -6 L -6 L 04/30/25 05/01/25 16:15 04:07 ABG pH 7.31 L 7.30 L ABG pCO2 43 50 H ABG pO2 69 L 64 L ABG HCO3 22 25 ABG O2 Saturation 94 93 ABG Base Excess -4 L -2 Quality Measures Quality Measures VTE prophylaxis Advance care planning discussed with:: patient and other Assessment & Plan Assessment Current Active Medications: Generic Name Dose Route Start Last Admin Trade Name Freq PRN Reason Stop Dose Admin Acetaminophen 650 mg 04/27/25 03:11 04/28/25 07:48 Acetaminophen 325 Mg Tablet PO 05/27/25 03:10 650 mg Q4HR PRN Administration PAIN SCALE 1-3 (mild Aspirin 81 mg 04/27/25 09:00 05/01/25 11:44 Aspirin 81 Mg Chew GT 05/27/25 08:59 81 mg QDAY IMANI Administration Citric Acid/Sodium Citrate 30 ml 04/28/25 10:00 05/01/25 11:44 Citric Acid/Sodium Citr 15 Ml Udc (Bicitra) PO 05/28/25 09:59 30 ml BID IMANI Administration Dextrose 25 ml 04/27/25 03:37 Dextrose 50%-Water Inj 50 Ml Syringe IV 05/27/25 03:36 Q15MIN PRN BG 50-70 responsive npo pt Dextrose 50 ml 04/27/25 03:37 Dextrose 50%-Water Inj 50 Ml Syringe IV 05/27/25 03:36 Q15MIN PRN BG <50 OR BG <70 & pt unresponsive Glucagon 1 mg 04/27/25 03:37 Glucagon Inj 1 Mg Vial IM Q15MIN PRN BG <70, and no IV access Heparin Sodium (Porcine) 5,000 unit 04/27/25 06:00 05/01/25 13:39 Heparin Sod Inj 5000 Unit/Ml Vial SC 05/11/25 05:59 5,000 unit Q8HR IMANI Administration Heparin Sodium (Porcine) 3,000 unit 04/30/25 11:01 05/01/25 11:53 Heparin Sod Inj 1000 Unit/Ml Vial 10 Ml INDWELLCAT 05/14/25 11:00 3,000 unit PRN PRN Administration DIALYSIS Norepinephrine/Dextrose 8 mg in 250 mls @ 11.522 mls/hr 04/28/25 12:43 05/01/25 13:35 Levophed In D5w 8mg/250ml IV 05/28/25 12:42 0.01 mcg/kg/min .[id number] PRN 2.304 mls/hr PER PROTOCOL Titration Protocol 0.05 MCG/KG/MIN Albumin Human 25 gm in 100 mls @ 100 mls/min 04/30/25 09:52 04/30/25 14:45 Albuminar-25 Ivpb IV 05/03/25 09:51 100 mls/min PRN PRN Administration DIALYSIS Piperacillin/Tazobactam/Dextrose 3.375 gm in 50 mls @ 12.5 mls/hr 04/30/25 22:00 05/01/25 13:38 Zosyn IV 05/07/25 21:59 12.5 mls/hr Q8HR IMANI Administration Insulin Degludec 22 unit 05/01/25 21:00 Insulin Degludec 5 Unit/0.05 Ml (Per 5 Units) ME 05/31/25 20:59 HS [facility] Insulin Human Lispro 0 unit 04/27/25 06:00 05/01/25 11:44 Insulin Lispro (Admelog) 1 Unit/0.01 Ml Unit SC 05/27/25 05:59 1 unit Q6HR IMANI Administration Protocol Magnesium Hydroxide 30 ml 04/27/25 03:11 Milk Of Magnesia Susp 30 Ml Udc PO 05/27/25 03:10 QDAY PRN CONSTIPATION Metoclopramide HCl 5 mg 04/29/25 22:00 05/01/25 13:38 Metoclopramide Liqd 10 Mg/10 Ml Udc GT 05/29/25 21:59 5 mg Q8HR IMANI Administration Midodrine 5 mg 04/28/25 14:00 05/01/25 13:39 Midodrine 5 Mg Tablet PO 05/28/25 13:59 5 mg TID IMANI Administration Mupirocin 0 gm 04/28/25 22:00 05/01/25 13:39 Mupirocin Oint 2% 15 Gm Tube TOP 05/05/25 21:59 1 applicatio TID IMANI Administration Oxycodone/Acetaminophen 1 tab 04/27/25 18:29 Oxycodone/Apap 5/325 Tablet GT 05/02/25 18:28 Q6HR PRN Pain 7-10 Pharmacy Consult 1 each 05/01/25 09:00 Vancomycin Pharmacy To Dose 1 Each Each IV 05/31/25 08:59 QDAY PRN CONSULT Plan The patient is a 80-year-old male with significant past medical history of CVA s/p trach/PEG tube, chronic hypoxic respiratory failure, MRSA pneumonia, Pseudomonas UTI, MRSA bacteremia, sacral ulcer, IDDM type II, hypertension, hyperlipidemia, vertebral osteomyelitis, acute pancreatitis, calculus cholelithiasis, MARGARETTE requiring hemodialysis in the past, and decubitus ulcers brought in by [facility] by the [facility] [place] with chief complaint of fever for past 2 days. As per nursing facility staff, the patient is nonverbal at baseline with GCS score is 5, and they provided a note to rule out sepsis. The patient was given 1 L of bolus normal saline in the ED, vancomycin and cefepime IV x 1, and he is MAP dropped down to less than 65, and was started on Levophed. The patient was admitted to ICU for further management of septic shock secondary to pneumonia and UTI; Downgraded from ICU on low dose #Septic shock, resolved 2/2 #Healthcare associated pneumonia Vs Severe UTI #S/p chronic tracheostomy #Leukocytosis Patient presented with fever, tachycardia, white count of 28 and RR 29, lactic acid 2.2, and requiring pressure support. The patient received 1 L of normal saline in the ED. As patient appears to be fluid overloaded, full 30 cc/kg body fluid was not given. Chest x-ray revealed bilateral pneumonia, UA revealed dark yellow urine, turbid, 2+ protein, 3+ blood, leukocyte esterase positive, RBC 1847, WBC 1892, urine bacteria none ECHO on 04/27 - Normal LV size and function. Estimated EF at 55 -60%%. Grade I diastolic dysfunction. Patient received vancomycin and cefepime IV x 1 in the ED Blood cultures and urine cultures done on 04/26 showed no growth after 48 hours ET secretions cultures are positive for Pseudomonas, Proteus mirabilis, Staphylococcus hemolyticus Started on Levophed, weaned off completely as of 04/27 Repeat blood cultures on 04/29/2025, 1 set of culture came back positive for GPC but likely contaminant - Stopped vancomycin and Zosyn, started on levofloxacin 750 mg every 48 hourly through G-tube [04/29-, - Restarted zosyn on 04/30 and added vancomycin on 05/01 in view of GPC in blood culture. - Midodrine 5mg TID as needed if MAP < 65 and SBP <100 #MARGARETTE Likely prerenal leading to ATN secondary to sepsis Presented with creatinine of 1.5, baseline creatinine about 0.7-0.8 Patient received 1 L of normal saline in the ED Patient appears to produce low urine output as of now - Ambulatory Services Representative, Dr. Jensen is consulted and recommended HD today as patient is oliguric, 04/30, 05/01 without any fluid removal- R femoral line - Was on low dose levophed during dialysis - Will continue to monitor renal panel - Renally dose medications and Avoid nephrotoxins # Hyponatremia, resolving The patient presented with sodium of 117, but corrected sodium was 123 --> 05/01, 126 The patient received 1 L of normal saline in the ED for sepsis and 1 more bolus of LR is given in the ICU - Will continue to monitor sodium levels - Ambulatory Services Representative, Dr. Jensen is consulted and will appreciate her recommendations. 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 EF is 55 to 60% - Will require cardiac catheterization after discharge to categorize pulmonary hypertension and needs treatment accordingly. #Hypertension, well controlled - Using Amlodipine 10mg every day and will Hold medications for now. #Insulin-dependent diabetes mellitus type 2 - Started on insulin degludec 13 units daily at night, increased to 18 units, adjusted to 22 units as of 05/01 based on blood sugars on morning labs - Sliding scale insulin lispro every 6 hourly with fingerstick blood sugar checks - A1c ordered - 10.5 #Microcytic anemia Likely 2/2 anemia of chronic disease, but could not rule out other differentials like nutritional deficiency - Iron panel, ferritin, folic acid, vitamin B12, reticulocyte count, peripheral smear and LDH ordered - showed iron deficiency - Will supplement iron once the infection is resolved - Daily a.m. 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 De La Fuente & senior resident Dr. Grace Méndez MD PGY-1 Attending Provider Attestation/Addendum I reviewed labs, imaging, EKG, home medications and prior available records. Face to face evaluation was performed by me. I have personally examined the patient and discussed assessment and plan with the IM team. I reviewed the resident note and agree with the plan with exceptions as below. Chronic hypoxic respiratory failure CVA status post trach and PEG Septic shock, secondary to urinary versus pulmonary source Hyponatremia MARGARETTE Type 2 diabetes mellitus He is off pressors Continue vancomycin/Zosyn Continue aspirin Started hemodialysis. Nephrology is following Monitor kidney function Monitor sodium level Consulted ID
[2025-05-01] MEDS: INSULIN DEGLUDEC 5 UNIT/0.05 ML (PER 5 UNITS) 22 UNIT SC (20:22)
[2025-05-02] VITALS (16 sets, daily range): BP systolic 89–156; BP diastolic 49–95; PULSE 75–113; RESP 18–27; TEMP 36.1–36.6; O2SAT 90–100; BMI 39.9
[2025-05-02] MEDS: INSULIN LISPRO (AdmeLOG) 1 UNIT/0.01 ML UNIT SC ×3 (00:40→17:53)
[2025-05-02] MEDS: HEPARIN SOD INJ 5000 UNIT/ML VIAL SC ×3 (05:22→21:06)
[2025-05-02] MEDS: MIDODRINE 5 MG TABLET PO (05:23)
[2025-05-02] MEDS: MUPIROCIN OINT 2% 15 GM TUBE TOP ×3 (05:28→21:08)
[2025-05-02] MEDS: PIPER/TAZO 3.375 GM PREMIX 3.375 GM/50 ML BAG IV ×3 (05:29→21:08)
[2025-05-02 08:45] LABS: Basophils # (Auto) 0.1 Thou/mm3 (0.0-0.2); Basophils % (Auto) 0 % (0-2.5); Eosinophils # (Auto) 0.7 Thou/mm3 (0.0-0.5); Eosinophils % (Auto) 2 % (0-10); Hematocrit 25.2 % (41.0-53.0); Immature Granulocytes Auto 2.26 Thou/mm3 (0.00-0.00); Lymphocytes # (Auto) 0.6 Thou/mm3 (1.0-4.8); Lymphocytes % (Auto) 1 % (10-50); Mean Corpuscular HGB Conc 32.1 g/dl (31.0-37.0); Mean Corpuscular Hemoglobin 24.8 pg (25.0-35.0); Mean Corpuscular Volume 77 fL (80-100); Monocytes # (Auto) 1.0 Thou/mm3 (0.0-0.8); Monocytes % (Auto) 3 % (0-12); Neutrophils # (Auto) 36.3 Thou/mm3 (1.8-7.7); Neutrophils % (Auto) 89 % (37-80); Nucleated Red Blood Cell # 0.31 Thou/mm3 (0.00-0.00); Nucleated Red Blood Cell % 1 /100 WBC (0); Platelet Count 298 Thou/mm3 (140-440); RDW Standard Deviation 58.5 fL (35.1-43.9); Red Blood Count 3.26 Miln/mm3 (4.50-5.90)
[2025-05-02 08:58] LABS: Alanine Aminotransferase 16 U/L (10-49); Albumin, Serum 3.0 gm/dL (3.4-4.8); Albumin/Globulin Ratio 1.1 (1.2-2.2); Alkaline Phosphatase 169 U/L (46-116); Anion Gap 11 (7-16); Aspartate Amino Transferase 30 U/L (0-34); BUN/Creatinine Ratio 22 Ratio (12-20); Bilirubin,Total 0.6 mg/dL (0.3-1.2); Blood Urea Nitrogen 35 mg/dL (9-23); Calcium 9.2 mg/dL (8.3-10.6); Calcium (Corrected) 10.0 mg/dL (8.5-10.1); Carbon Dioxide 27.7 mMol/L (20.0-31.0); Chloride 95 mMol/L (98-107); Creatinine (Component) 1.6 mg/dL (0.6-1.3); Estimated Creatinine Clearance 50.8 mL/min (>60); Globulin 2.8 gm/dL (2.3-3.5); Glucose 155 mg/dL (74-106); Magnesium 1.9 mg/dL (1.6-2.6); Osmolality,Calculated 279 (275-295); Phosphorous 2.2 mg/dL (2.4-5.1); Potassium 3.8 mMol/L (3.4-5.1); Sodium 134 mMol/L (136-145); Total Protein 5.8 gm/dL (5.7-8.2); Vancomycin,Random 16.6 mcg/mL; eGFR 44 See Note
[2025-05-02 09:00] LABS: Hemoglobin 8.1 g/dL (13.5-16.0)
[2025-05-02 09:03] LABS: White Blood Count 41.0 Thou/mm3 (3.8-10.6)
[2025-05-02 09:32] LABS: Band Neutrophils (Manual) 10 % (0-6); Lymphocytes (Manual) 3 % (20-44); Metamyelocytes (Manual) 1 % (0-0); Monocytes (Manual) 3 % (2-9); Myelocytes (Manual) 2 % (0-0); Neutrophils (Manual) 81 % (50-70)
[2025-05-02 09:33] LABS: Anisocytosis 2+; Polychromasia 1+; Toxic Vacuolation 2+
[2025-05-02 09:39] LABS: Path Review Blood Smear Sent to Pathologist
--- NOTE | 2025-05-02 10:08 | PD.NEPHPROG ---
Documentation for date of: 05/02/25 Subjective Subjective Interval history: Mr Sanchez is a 80-year-old male with significant past medical history of CVA s/p trach/PEG tube, chronic hypoxic respiratory failure, MRSA pneumonia, Pseudomonas UTI, MRSA bacteremia, sacral ulcer, IDDM type II, hypertension, hyperlipidemia, vertebral osteomyelitis, acute pancreatitis, calculus cholelithiasis, MARGARETTE requiring hemodialysis in the past, and decubitus ulcers brought in by [facility] by the [facility] at [place] with chief complaint of fever for past 2 days. As per nursing facility staff, the patient is nonverbal at baseline with GCS score is 5, and they provided a note to rule out sepsis. The at bedside is a poor historian, and believe that the patient still interacts with her. Initially in the ED her vitals were BP 128/58, pulse 123, RR 29, temperature 100.9, saturating 100% on 40 L FiO2 via tracheostomy tube. Labs are significant for white count of 28.6, hemoglobin 8.2, MCV 74, platelet 368, ESR 102, D-dimer greater than 3820, ABG revealed pH 7.30, pCO2 41, sodium 117 with corrected sodium for hyperglycemia is 123, potassium 4.1, chloride 87, bicarb 19.9, anion gap 10, BUN/creatinine 36/1.5, GFR 47, blood sugar 299, lactic acid 2.2, magnesium 2.0, T. bili 1.8, direct bilirubin 1.4, AST/ALT/ALP 71/47/229, troponin less than 0.020, CRP greater than 10.0, BNP 138, albumin 3.2, Pro-Tevin 2.28, UA revealed dark yellow urine, turbid, 2+ protein, 3+ blood, leukocyte esterase positive, RBC 1847, WBC 1892, urine bacteria none. Chest x-ray revealed extensive bilateral pneumonia. PMH: As mentioned above SHX: Positive abdominal surgery, tracheostomy, gastrostomy and knee joint replacement Family history: Unobtainable Social history: He is , often comes to visit, others unobtainable Medications: To be reconciled Allergies: NYLA inhibitors, upper airway edema, ARB's for airway edema The patient was given 1 L of bolus normal saline in the ED, vancomycin and cefepime IV x 1, and he is MAP dropped down to less than 65, and was started on Levophed. The patient was admitted to ICU for further management of septic shock secondary to pneumonia and UTI. 04/27/2025: pt admitted to ICU, Nephrology consulted patient seen and examined in ICU pt on pressors, pt is unresponsive to voice and pain, Pupils are fixed and non responsive to light. pt has sacral wounds being examined by wound nurse divya. pt appears hypervolemic on exam, BLE edematous. ICU managing fluids, Na 118, Cl 88, hco3 17, BUN 35, Cr 1.6, Serum Osm 257 UA with 2+ protein 3+ blood. Urine looks concentrated suspect hypervolemia hyponatremia, reccomend diuretics and albumin 04/28/2025: patient seen and examined in the ICU. Pt opens eyes spontaneously. appears hypervolemic on exam with ELE and ELE with significant edema, ICU managing fluids, Na 120, K 3.7 Cl 88, CO2 17, BUN 42 from 35,Cr 1.8 from 1.6. suspect hypervolemic hyponatremia, reccomend trial of 40 IV lasix and IV albumin, bicitra, procrit epogen 10 000 04/29/2025: Patient examined at bedside in the ICU, remains bedbound on blood pressure support via trach. GCS 4T, patient is not following any commands at this time but does open eyes spontaneously. Hyponatremia improving slowly, will start salt tabs at this time and monitor sodium closely. Patient was given IV Lasix yesterday, with minimal improvement. He still appears significantly fluid overloaded, will give albumin for now. 04/30/2025: Patient seen and examined in the ICU, with trach, uop is minimal, german catheter was removed, straight cath q4h with bladder scans. L femoral catheter removed, Bcx pending, WBC elevated to 34, Na 122, BUN 46 from 31, Cr 2.2 from 2. query UTI, vs bacteremia. , HR 100s, BP normotensive. on exam pt has significant edema query whether pt is hypervolemic vs intravascularly down, recommend aldactone 50, given 1L LR per ICU. 05/01/2025: Patient seen and examined in the ICU, trach is midline wo crusting or oozing secretions minimal, straight cath q4 hr with 400 UOP, B cx GPC 1/2 tubes. WBC 31 from 34, pt appears volume overloaded on exam, lungs sounds difficult to appreciate given pt habitus, BUN 46, Cr 2.1 from 2.2. continues on vanc and zosyn. Plan for HD today with fluid removal. reccomend holding fluids today. BP 90s/40s. 05/02/2025 patient currently seen in telemetry. Moved out of ICU. Blood pressure still on the lower side. On midodrine. Hold dialysis today. Did receive 2 dialysis sessions. Yesterday his blood pressure dropped during dialysis. Labs/medications reviewed. No family around. Review of Systems Review of Systems ROS Unobtainable: unobtainable due to mental status and unobtainable due to medical condition Exam Vital Signs Temp Pulse Resp BP Pulse Ox O2 Del Method O2 Flow Rate 36.6 C 113 H 26 H 90/56 L 97 Mechanical Ventilation 35 05/02/25 03:00 05/02/25 06:55 05/02/25 03:00 05/02/25 05:23 05/02/25 06:55 05/02/25 03:00 05/02/25 03:00 FiO2 40 05/02/25 06:55 Narrative Exam General: No acute distress, comatose, previously noted to open eyes spontaneously HEENT: Moist mucous membranes, oropharynx not assessed (contracted jaw) Neck: trach in place midline CVS: regular rate and rythm, +murmor , rubs or gallops Lungs: Mild rhonchi throughout the lung field, no wheezing, crackles or decreased breath sounds Abd: Soft, NT, slightly distended, +BS, +epigastric peg tube in place with no errythema crusting or drainage around tube. : no german. Ext: diffuse edema of upper and 2+ pitting of the lower extrem, warm and well perfused, R femoral lines Skin: Multiple stages of decubitus ulcers on buttoks and sacrum , L heel with 3cm bruise violacious Psych: comatose Objective Labs 05/02/25 08:21 05/02/25 08:21 Labs: Laboratory Results - last 24 hr 05/01/25 05/02/25 09:23 08:21 WBC 41.0 H* D RBC 3.26 L Hgb 8.1 L Hct 25.2 L MCV 77 L MCH 24.8 L MCHC 32.1 RDW Std Deviation 58.5 H Plt Count 298 D Neut % (Auto) 89 H Lymph % (Auto) 1 L [place] % (Auto) 3 Eos % (Auto) 2 Baso % (Auto) 0 Neut # (Auto) 36.3 H Lymph # (Auto) 0.6 L [place] # (Auto) 1.0 H Eos # (Auto) 0.7 H Baso # (Auto) 0.1 Immature Gran # (Auto) 2.26 H Absolute Nucleated RBC 0.31 H Immature Gran % 6 H Neutrophils % (Manual) 81 H Monocytes % (Manual) 3 Metamyelocytes % 1 H Myelocytes % 2 H Nucleated RBC % 1 H Band Neutrophils 10 H Lymphocytes (Manual) 3 L Toxic Vacuolation 2+ Polychromasia 1+ Anisocytosis 2+ Smear Path Review Sent to Pathologist Sodium 134 L Potassium 3.8 Chloride 95 L Carbon Dioxide 27.7 Anion Gap 11 BUN 35 H Creatinine 1.6 H D Estim Creat Clear Calc 50.8 L eGFR 44 L BUN/Creatinine Ratio 22 H Glucose 155 H D Calculated Osmolality 279 Calcium 9.2 Corrected Calcium 10.0 Phosphorus 2.2 L Magnesium 1.9 Total Bilirubin 0.6 AST 30 ALT 16 Alkaline Phosphatase 169 H D Total Protein 5.8 Albumin 3.0 L Globulin 2.8 Albumin/Globulin Ratio 1.1 L Random Vancomycin 16.6 Blood Type O Positive Antibody Screen NEGATIVE Crossmatch See Detail Blood Bank Wristband ID Yes ABG Interpretation ABG results: 04/27/25 04/27/25 04/27/25 02:12 07:39 09:19 ABG pH 7.30 L 7.18 L* D 7.24 L ABG pCO2 41 53 H D 44 ABG pO2 99 98 110 H ABG HCO3 20 20 19 L ABG O2 Saturation 98 98 99 H ABG Base Excess -6 L -9 L -8 L 04/27/25 04/28/25 04/30/25 12:15 04:10 04:21 ABG pH 7.28 L 7.34 L 7.26 L ABG pCO2 39 36 46 D ABG pO2 135 H D 111 H D 66 L D ABG HCO3 18 L 19 L 20 ABG O2 Saturation 100 H 99 H 93 ABG Base Excess -8 L -6 L -6 L 04/30/25 05/01/25 16:15 04:07 ABG pH 7.31 L 7.30 L ABG pCO2 43 50 H ABG pO2 69 L 64 L ABG HCO3 22 25 ABG O2 Saturation 94 93 ABG Base Excess -4 L -2 Assessment & Plan Additional Assessment & Plan Additional Plan: Plan Mr Sanchez is a 80-year-old gentleman with hx of CVA s/p trach/PEG tube, chronic hypoxic respiratory failure, MRSA pneumonia, Pseudomonas UTI, MRSA bacteremia, sacral ulcer, IDDM type II (poorl controlled A1c 10.5), hypertension, hyperlipidemia, vertebral osteomyelitis, hx of MARGARETTE requiring hemodialysis in the past, whose baseline mental status is GCS 5, admitted to ICU for septic shock 2/2 PNA vs UTI, requiring pressors and hyponatremia, with minimal UOP 280 ccs, trial lasix and albumin given suspicion of hypervolemic hyponatremia however UOP is minimal, german cath removed and L fem cath removed, WBC 34, 1/2 bcx with GPC, on vanc and zosyn. query UTI, WBC remains elevated, downtrending today 31 from 34. pt with significant anisarca, however query low intravascular volume. pt may benefit from aldactone 50 if >concern for hypervolemia. holding IV fluids today, Plan for HD today with fluid removed. Hypervolemic hyponatremia - hyponatremia resolving query hypovolemic hyponatremia The patient presented with sodium of 117, but the corrected sodium was 123 (pt hyerglycemic to 288) The patient received 1 L of normal saline in the ED for sepsis and 1 L LR in the ICU Serum osm 257: hypernatremic, hypotonic, hypervolemic on exam: query CHF vs renal failure, vs cirrhosis vs nephrotic syndrome (UA with 2+ protein) - Was given IV lasix 40mg x1 in 04/28 with minimal improvement - 04/29: Na 120 -> 121 , appears hypervolemic on exam BUE and BLE edematous. - 04/30: Na 122, significant anisarca, start HD - 05/01: Na 126 (Corrected Na is 130 given serum glucose 217) significant ansiarca, HD today with fluid removal hold iv fluids today Last HD: 04/30, 05/01 Plan: - HD held today. Hopefully blood pressure will improve and plan for dialysis tomorrow. - Continue IV Albumin 25mg IV BID - Hyponatremia improving slowly, (gave salt tabs) - rec holding fluids today - On Bicitra given HCO3 low may help correct hyponatremia - Sodium checks per primary team MARGARETTE nonnephrotic range proteinuria Likely prerenal secondary to sepsis Presented with creatinine of 1.5, baseline creatinine about 0.7-0.8 Patient received 1 L of normal saline in the ED, given c/f worsening his hyponatremia, sepsis protocol resusitation was not initaited. given 1L LR in the ICU Urine Protein Cr ratio: 115: 53= 2.6 (nonnephrotic rage protienuria) - 04/27 Cr 1.6, BUN 35 - 04/28, Cr 1.8, BUN 42 - 04/29: BUN 43 and GFR 36 - 04/30: Cr 2.2 from 2, BUN 46 from 31 - 05/01: Cr 2.1 from 2.2, BUN 45 from 46 (stable) BP 90s/40s, Plan: - daily CMP, Mg, Phos - Renally dose medications - Avoid nephrotoxins Lactic acidosis 2/2 sepsis- resolved Likely complicated by diarrhea with bicarbonate loss via stool Patient received 1 L of normal saline in the ED Lactic acid: 2.5 to 1.0 bicarb low, - cont bicitra - Daily CMP - fluid resusitation per primary team other medical problems 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 Due to concern of overcorrection of hyponatremia, full 30 cc/kg body fluid was not given. repeat bcx pending Bilateral healthcare associated pneumonia Possible acute hypoxic respiratory failure 2/2 query aspiration pneumonia Severe UTI -on abx german removed, straight cath q4hr hypotension - on midodrine 5 mg TID Chronic respiratory failure 2/2 S/p CVA mech ventilation per trach tube, Transaminitis - resolved Diarrhea - cdiff negative Nutrition per peg tube Acute hgb drop- now stable Microcytic anemia - likely dilutional given decrease in other cell lines, - give procrit 10 000 - iron deficiency, iron studies low, retic count elevated. Non-anion gap metabolic acidosis Insulin-dependent diabetes mellitus type 2 - A1c 10.5 Multistage decubitus ulcer HTN HLD - managment per primary team Quality - progress note Quality Measures Quality Measures: VTE prophylaxis Reason for Continued Stay Reason for Continued Stay: further monitoring
[2025-05-02] MEDS: ASPIRIN 81 MG CHEW GT (10:25)
[2025-05-02] MEDS: VANCOMYCIN/WATER 1GM IVPB 200 ML IV (10:25)
[2025-05-02] MEDS: CITRIC ACID/SODIUM CITR 15 ML UDC (BICITRA) 30 ML PO ×2 (10:25→20:52)
--- NOTE | 2025-05-02 10:27 | XR_ITS ---
Examination: CT chest with intravenous contrast CT abdomen with intravenous contrast CT pelvis with intravenous contrast 2-D coronal and sagittal reconstructions Time of exam: May 02, 2025 1358 hrs. Indications: Sepsis beginning 3 days ago. CTDI: vol (mGy) : 25.8. DLP: (mGycm): 2218. Technique: Multiple axial images of the chest, abdomen and pelvis with intravenous contrast, 3.0 mm slice thickness. Images obtained post intravenous injection Isovue 30 cc Isovue 300. 2-D sagittal and coronal reconstructions. Low dose protocols were performed. One or more of the following dose reduction techniques were used; automated exposure control, adjustment of the mA and/or KV according to patient size, use of iterative reconstruction technique. Findings: Tracheal tube 4 cm above monica. No thoracic aortic dissection. Pulmonary artery opacification is poor. Prominent pneumonia at the lung bases consider aspiration pneumonia with mild to moderate bilateral pleural effusions. Fatty infiltration throughout the liver. Moderate hepatosplenomegaly. Aorta is normal in size. Calcified upper pole 4 cm left renal cyst. Distended small bowel loops in the left upper abdomen. Mild ascites. No bowel obstruction. Appendix is not diagnostically visualized. No diverticulitis. Urinary bladder wall thickening, mild, mild prostatomegaly Severe osteopenia Impression: Significant bibasilar pneumonia, consider aspiration pneumonia. Mild to moderate bilateral pleural effusions. Significant hepatosplenomegaly Abnormal small bowel in the left upper abdomen, recommend follow-up CT abdomen pelvis with oral Gastrografin. Mild ascites No diverticulitis. No bowel obstruction Mild cystitis pattern
--- NOTE | 2025-05-02 10:39 | PD.RESPRO ---
Documentation for date of: 05/02/25 Subjective Subjective Interval history: No acute events overnight. Patient seen and examined at bedside on the floors. Vitals this morning included HR 95, BP 90/56, O2 saturation of 97% on 40% FIO2. Patient's midodrine was increased to 10 mg TID; ID consutled for increased WBC to 41; Nephrology consulted to see if dialysis needs to be continued; CT CAP ordered for unresolving sepsis. Exam Vital Signs Temp Pulse Resp BP Pulse Ox O2 Del Method O2 Flow Rate 97.8 F 113 H 26 H 90/56 L 97 Mechanical Ventilation 35 05/02/25 03:00 05/02/25 06:55 05/02/25 03:00 05/02/25 05:23 05/02/25 06:55 05/02/25 03:00 05/02/25 03:00 FiO2 40 05/02/25 06:55 Narrative Exam General: At his baseline. Spontaneously opening and blinking. HEENT: Normocephalic, atraumatic, mucous membranes moist. Heart: Regular rate and rhythm, no murmurs. Lungs: Clear to auscultation with no wheezing or crackles. Abdomen: Soft, nondistended, nontender, positive bowel sounds. ?No guarding or rebound tenderness. Neurologic: At his baseline. Spontaneously opening and blinking to give response. Extremities: noted Anasarca Skin: No rash or ecchymoses. noted to have decubitus ulcers Objective Labs 05/03/25 05:00 05/03/25 05:00 Labs: Laboratory Results - last 24 hr 05/01/25 05/02/25 09:23 08:21 WBC 41.0 H* D RBC 3.26 L Hgb 8.1 L Hct 25.2 L MCV 77 L MCH 24.8 L MCHC 32.1 RDW Std Deviation 58.5 H Plt Count 298 D Neut % (Auto) 89 H Lymph % (Auto) 1 L Sac % (Auto) 3 Eos % (Auto) 2 Baso % (Auto) 0 Neut # (Auto) 36.3 H Lymph # (Auto) 0.6 L Sac # (Auto) 1.0 H Eos # (Auto) 0.7 H Baso # (Auto) 0.1 Immature Gran # (Auto) 2.26 H Absolute Nucleated RBC 0.31 H Immature Gran % 6 H Neutrophils % (Manual) 81 H Monocytes % (Manual) 3 Metamyelocytes % 1 H Myelocytes % 2 H Nucleated RBC % 1 H Band Neutrophils 10 H Lymphocytes (Manual) 3 L Toxic Vacuolation 2+ Polychromasia 1+ Anisocytosis 2+ Smear Path Review Sent to Pathologist Sodium 134 L Potassium 3.8 Chloride 95 L Carbon Dioxide 27.7 Anion Gap 11 BUN 35 H Creatinine 1.6 H D Estim Creat Clear Calc 50.8 L eGFR 44 L BUN/Creatinine Ratio 22 H Glucose 155 H D Calculated Osmolality 279 Calcium 9.2 Corrected Calcium 10.0 Phosphorus 2.2 L Magnesium 1.9 Total Bilirubin 0.6 AST 30 ALT 16 Alkaline Phosphatase 169 H D Total Protein 5.8 Albumin 3.0 L Globulin 2.8 Albumin/Globulin Ratio 1.1 L Random Vancomycin 16.6 Blood Type O Positive Antibody Screen NEGATIVE Crossmatch See Detail Blood Bank Wristband ID Yes ABG Interpretation ABG results: 04/27/25 04/27/25 04/27/25 02:12 07:39 09:19 ABG pH 7.30 L 7.18 L* D 7.24 L ABG pCO2 41 53 H D 44 ABG pO2 99 98 110 H ABG HCO3 20 20 19 L ABG O2 Saturation 98 98 99 H ABG Base Excess -6 L -9 L -8 L 04/27/25 04/28/25 04/30/25 12:15 04:10 04:21 ABG pH 7.28 L 7.34 L 7.26 L ABG pCO2 39 36 46 D ABG pO2 135 H D 111 H D 66 L D ABG HCO3 18 L 19 L 20 ABG O2 Saturation 100 H 99 H 93 ABG Base Excess -8 L -6 L -6 L 04/30/25 05/01/25 16:15 04:07 ABG pH 7.31 L 7.30 L ABG pCO2 43 50 H ABG pO2 69 L 64 L ABG HCO3 22 25 ABG O2 Saturation 94 93 ABG Base Excess -4 L -2 Quality Measures Quality Measures VTE prophylaxis Advance care planning discussed with:: patient and other Assessment & Plan Assessment Current Active Medications: Generic Name Dose Route Start Last Admin Trade Name Freq PRN Reason Stop Dose Admin Acetaminophen 650 mg 04/27/25 03:11 04/28/25 07:48 Acetaminophen 325 Mg Tablet PO 05/27/25 03:10 650 mg Q4HR PRN Administration PAIN SCALE 1-3 (mild Aspirin 81 mg 04/27/25 09:00 05/02/25 10:25 Aspirin 81 Mg Chew GT 05/27/25 08:59 81 mg QDAY IMANI Administration Citric Acid/Sodium Citrate 30 ml 04/28/25 10:00 05/02/25 10:25 Citric Acid/Sodium Citr 15 Ml Udc (Bicitra) PO 05/28/25 09:59 30 ml BID IMANI Administration Dextrose 25 ml 04/27/25 03:37 Dextrose 50%-Water Inj 50 Ml Syringe IV 05/27/25 03:36 Q15MIN PRN BG 50-70 responsive npo pt Dextrose 50 ml 04/27/25 03:37 Dextrose 50%-Water Inj 50 Ml Syringe IV 05/27/25 03:36 Q15MIN PRN BG <50 OR BG <70 & pt unresponsive Glucagon 1 mg 04/27/25 03:37 Glucagon Inj 1 Mg Vial IM Q15MIN PRN BG <70, and no IV access Heparin Sodium (Porcine) 5,000 unit 04/27/25 06:00 05/02/25 05:22 Heparin Sod Inj 5000 Unit/Ml Vial SC 05/11/25 05:59 5,000 unit Q8HR IMANI Administration Heparin Sodium (Porcine) 3,000 unit 04/30/25 11:01 05/01/25 11:53 Heparin Sod Inj 1000 Unit/Ml Vial 10 Ml INDWELLCAT 05/14/25 11:00 3,000 unit PRN PRN Administration DIALYSIS Albumin Human 25 gm in 100 mls @ 100 mls/min 04/30/25 09:52 05/01/25 19:01 Albuminar-25 Ivpb IV 05/03/25 09:51 Infused PRN PRN Infusion DIALYSIS Piperacillin/Tazobactam/Dextrose 3.375 gm in 50 mls @ 12.5 mls/hr 04/30/25 22:00 05/02/25 05:29 Zosyn IV 05/07/25 21:59 12.5 mls/hr Q8HR IMANI Administration Vancomycin HCl 200 mls @ 120 mls/hr 05/02/25 10:00 05/02/25 10:25 Vancomycin/Water 1gm Ivpb IV 05/02/25 11:39 120 mls/hr X1 ONE Administration Insulin Degludec 22 unit 05/01/25 21:00 05/01/25 20:22 Insulin Degludec 5 Unit/0.05 Ml (Per 5 Units) SC 05/31/25 20:59 22 unit HS IMANI Administration Insulin Human Lispro 0 unit 04/27/25 06:00 05/02/25 05:23 Insulin Lispro (Admelog) 1 Unit/0.01 Ml Unit SC 05/27/25 05:59 Not Given Q6HR [facility] Protocol Magnesium Hydroxide 30 ml 04/27/25 03:11 Milk Of Magnesia Susp 30 Ml Udc PO 05/27/25 03:10 QDAY PRN CONSTIPATION Midodrine 10 mg 05/02/25 10:45 Midodrine 5 Mg Tablet PO 06/01/25 10:44 TID IMANI Mupirocin 0 gm 04/28/25 22:00 05/02/25 05:28 Mupirocin Oint 2% 15 Gm Tube TOP 05/05/25 21:59 1 applicatio TID [facility] Administration Oxycodone/Acetaminophen 1 tab 04/27/25 18:29 Oxycodone/Apap 5/325 Tablet GT 05/02/25 18:28 Q6HR PRN Pain 7-10 Pharmacy Consult 1 each 05/01/25 09:00 Vancomycin Pharmacy To Dose 1 Each Each IV 05/31/25 08:59 QDAY PRN CONSULT Plan Kwadwo Sanchez is a 80-year-old male with significant past medical history of CVA s/p trach/PEG tube, chronic hypoxic respiratory failure, MRSA pneumonia, Pseudomonas UTI, MRSA bacteremia, sacral ulcer, IDDM type II, hypertension, hyperlipidemia, vertebral osteomyelitis, acute pancreatitis, calculus cholelithiasis, MARGARETTE requiring hemodialysis in the past, and decubitus ulcers brought in by [facility] by the [facility] [place] with chief complaint of fever for past 2 days. Patient was admitted to ICU for further management of septic shock secondary to pneumonia and UTI; Downgraded from ICU, no longer needing pressors; continuing to manage unresolved sepsis. #Septic shock, resolved 2/2 #Healthcare associated pneumonia Vs Severe UTI #S/p chronic tracheostomy #Leukocytosis Patient presented with fever, tachycardia, white count of 28 and RR 29, lactic acid 2.2, and requiring pressure support. The patient received 1 L of normal saline in the ED. As patient appears to be fluid overloaded, full 30 cc/kg body fluid was not given. Chest x-ray revealed bilateral pneumonia, UA revealed dark yellow urine, turbid, 2+ protein, 3+ blood, leukocyte esterase positive, RBC 1847, WBC 1892, urine bacteria none ECHO on 04/27 - Normal LV size and function. Estimated EF at 55 -60%%. Grade I diastolic dysfunction. Started on Levophed, weaned off completely as of 04/27 Repeat blood cultures on 04/29/2025, 1 set of culture came back positive for GPC but likely contaminant - Ordered CT CAP for unresolving sepsis - Stopped vancomycin as GPC blood culture likely contaminant - Continuing zosyn. - Midodrine 10mg TID as needed if MAP < 65 and SBP <100 #MARGARETTE Likely prerenal leading to ATN secondary to sepsis Presented with creatinine of 1.5, baseline creatinine about 0.7-0.8 Patient received 1 L of normal saline in the ED Patient appears to produce low urine output as of now - Air Brake Operator, Dr. Jensen is consulted and recommended HD 05/01 as patient is oliguric, 04/30, 05/01 without any fluid removal- R femoral line. - HD today w fluid removal; Consider starting aldactone 50 - Was on low dose levophed during dialysis - Will continue to monitor renal panel - Renally dose medications and Avoid nephrotoxins # Hyponatremia, resolving The patient presented with sodium of 117, but corrected sodium was 123 --> 05/01, 126 The patient received 1 L of normal saline in the ED for sepsis and 1 more bolus of LR is given in the ICU - Will continue to monitor sodium levels - Air Brake Operator, Dr. Jensen is consulted and will appreciate her recommendations. 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 EF is 55 to 60% - Will require cardiac catheterization after discharge to categorize pulmonary hypertension and needs treatment accordingly. #Hypertension, well controlled - Using Amlodipine 10mg every day and will Hold medications for now. #Insulin-dependent diabetes mellitus type 2 - Started on insulin degludec 13 units daily at night, increased to 18 units, adjusted to 22 units as of 05/01 based on blood sugars on morning labs - Sliding scale insulin lispro every 6 hourly with fingerstick blood sugar checks - A1c ordered - 10.5 #Microcytic anemia Likely 2/2 anemia of chronic disease, but could not rule out other differentials like nutritional deficiency - Iron panel, ferritin, folic acid, vitamin B12, reticulocyte count, peripheral smear and LDH ordered - showed iron deficiency - Will supplement iron once the infection is resolved - Daily a.m. 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 Sudhakar Méndez MD PGY-1 Attending Provider Attestation/Addendum I reviewed labs, imaging, EKG, home medications and prior available records. Face to face evaluation was performed by me. I have personally examined the patient and discussed assessment and plan with the IM team. I reviewed the resident note and agree with the plan with exceptions as below. Chronic hypoxic respiratory failure CVA status post trach and PEG Septic shock, secondary to urinary versus pulmonary source Hyponatremia MARGARETTE Type 2 diabetes mellitus He is off pressors Continue Zosyn for 7 days per ID recommendations Ordered CT of the chest, abdomen, and pelvis that showed bibasilar pneumonia with possible aspiration pneumonia. Possible SBO. Trend WBC: Downtrending Continue aspirin Started hemodialysis. Nephrology is following Monitor kidney function Monitor sodium level Consulted ID
[2025-05-02] MEDS: MIDODRINE 5 MG TABLET 10 MG PO (11:56)
--- NOTE | 2025-05-02 12:16 | PC.NURSE ---
Spoke with Madison in pharmacy regarding start dose for heparin drip based on PTT of 26.4. Will give 4000 bolus and start rate at 12 units/kg/hr as recommended by pharmacy
[2025-05-02] MEDS: POT PHOS 15 mMol in NS 250 ML 15 MMOL/250 ML BAG 62.5 MMOL IV (12:21)
--- NOTE | 2025-05-02 12:22 | PD.IDPROG ---
Subjective Subjective Interval history: bc neg. low grade temps on arrival only. none since. ckd noted. procal done per protocol on admit. is pos but should not be done in diamond or ckd no eol discussion noted. has chronic encephalopathy and resp failure, so prognosis seems poor. the bc with coag neg and the sputum with a different species of coag neg are likely contaminants. the resp cx may be contaminated as pseudomonas is a water germ but cx are popular. Exam Vital Signs Temp Pulse Resp BP Pulse Ox O2 Del Method O2 Flow Rate 97.6 F 87 27 H 89/49 L 99 Mechanical Ventilation 35 05/02/25 08:00 05/02/25 11:56 05/02/25 08:00 05/02/25 11:56 05/02/25 08:00 05/02/25 08:00 05/02/25 03:00 FiO2 40 05/02/25 06:55 Narrative Exam unresponsive, diffuse edema noted on vent at 40%. diastolic dysfunction grade 1 noted on echo report but ef ok. resp cx noted but may be contaminated.but is all we have essentially. cxr noted should not be repeated for 4-6 weeks unless he is worse. please do not do procal in ckd or diamond. chemical is made by body and renally cleared, so will accumulate in ckd and diamnod. so the only good procal is a neg one in the setting of ckd or diamond Objective - Internal Medicine Labs 05/02/25 08:21 05/02/25 08:21 Labs: Laboratory Results - last 24 hr 05/01/25 05/02/25 09:23 08:21 WBC 41.0 H* D RBC 3.26 L Hgb 8.1 L Hct 25.2 L MCV 77 L MCH 24.8 L MCHC 32.1 RDW Std Deviation 58.5 H Plt Count 298 D Neut % (Auto) 89 H Lymph % (Auto) 1 L [place] % (Auto) 3 Eos % (Auto) 2 Baso % (Auto) 0 Neut # (Auto) 36.3 H Lymph # (Auto) 0.6 L [place] # (Auto) 1.0 H Eos # (Auto) 0.7 H Baso # (Auto) 0.1 Immature Gran # (Auto) 2.26 H Absolute Nucleated RBC 0.31 H Immature Gran % 6 H Neutrophils % (Manual) 81 H Monocytes % (Manual) 3 Metamyelocytes % 1 H Myelocytes % 2 H Nucleated RBC % 1 H Band Neutrophils 10 H Lymphocytes (Manual) 3 L Toxic Vacuolation 2+ Polychromasia 1+ Anisocytosis 2+ Smear Path Review Sent to Pathologist Sodium 134 L Potassium 3.8 Chloride 95 L Carbon Dioxide 27.7 Anion Gap 11 BUN 35 H Creatinine 1.6 H D Estim Creat Clear Calc 50.8 L eGFR 44 L BUN/Creatinine Ratio 22 H Glucose 155 H D Calculated Osmolality 279 Calcium 9.2 Corrected Calcium 10.0 Phosphorus 2.2 L Magnesium 1.9 Total Bilirubin 0.6 AST 30 ALT 16 Alkaline Phosphatase 169 H D Total Protein 5.8 Albumin 3.0 L Globulin 2.8 Albumin/Globulin Ratio 1.1 L Random Vancomycin 16.6 Crossmatch See Detail ABG Interpretation ABG results: 04/27/25 04/27/25 04/27/25 02:12 07:39 09:19 ABG pH 7.30 L 7.18 L* D 7.24 L ABG pCO2 41 53 H D 44 ABG pO2 99 98 110 H ABG HCO3 20 20 19 L ABG O2 Saturation 98 98 99 H ABG Base Excess -6 L -9 L -8 L 04/27/25 04/28/25 04/30/25 12:15 04:10 04:21 ABG pH 7.28 L 7.34 L 7.26 L ABG pCO2 39 36 46 D ABG pO2 135 H D 111 H D 66 L D ABG HCO3 18 L 19 L 20 ABG O2 Saturation 100 H 99 H 93 ABG Base Excess -8 L -6 L -6 L 04/30/25 05/01/25 16:15 04:07 ABG pH 7.31 L 7.30 L ABG pCO2 43 50 H ABG pO2 69 L 64 L ABG HCO3 22 25 ABG O2 Saturation 94 93 ABG Base Excess -4 L -2 Assessment & Plan A&P Narrative finish 7d of zosyn. do not repeat cxr unless he is worse or for 4-6 weeks after the event. you have 4-5d to have a discussion about end of life as he is 80 and on a vent and knocking at the door for hd family needs to make some decisions. left on zosyn for now for the germs found but stopped the vanco. no mrsa found. coag neg likely a contaminant in both resp tree and bc. Time Spent With Patient Time: Total time spent is greater than 50% in coordination of care (as documented) at patient's floor/unit and/or counseling patient:
[2025-05-02] MEDS: RINGERS LACTATED 1000 ML 1,000 ML 999 ML IV (14:37)
[2025-05-02 15:38] LABS: Lactate (Lactic Acid) 2.5 mMol/L (0.4-2.0)
--- NOTE | 2025-05-02 18:12 | ESCONSULT_ITS ---
RE: NI, BOLDEN : 1945 DATE OF CONSULTATION: 05/01/2025 REFERRING PHYSICIAN: Dr. Muñiz. REASON FOR CONSULTATION: Chronic renal failure with chronic encephalopathy and chronic kidney disease noted in a patient who is diabetic at 80 years of age. HISTORY OF PRESENT ILLNESS: The patient is on a ventilator at 80 years of age and lives in the alf. He is here for possible pneumonia, but we do not know his vaccine status or prior surgical status other than noting the trach and peg. His surgeries were presumably done elsewhere. We do not have any data on him. His cultures have shown pseudomonas and other germ. They will be covered adequately by the Zosyn. He is on 40% on a ventilator.. I am not sure how long she is going to stay. The pseudomonas appears to be naturally the more resistant of the various players. The proteus appears to be resistant to some of the agents used against pseudomonas, so we will stay away from those. Camillen is okay to finish treatment with. If we want to give him cefepime instead, that is okay too, but it may be harder to get for the alf. 7 days of treatment is usually sufficient. I would probably finish the 7 days with iv rx. i will check on him again on Wednesday, but I will not be here the weekend on Wednesday because of travel plans. I will come Wednesday though. DT: 12:35:57 TT: 13:00:00 Ref: [id number] - TID: [id number] MTDD
[2025-05-02 18:33] LABS: Reflex Lactate? Y
[2025-05-02 19:23] LABS: Lactic Acid, 3 HR 3.1 mMol/L (0.4-2.0)
[2025-05-02] MEDS: INSULIN DEGLUDEC 5 UNIT/0.05 ML (PER 5 UNITS) 22 UNIT SC (20:52)
[2025-05-03] VITALS (35 sets, daily range): BP systolic 108–178; BP diastolic 54–95; PULSE 78–88; RESP 20–25; TEMP 35.8–36.6; O2SAT 97–100; BMI 41.5
[2025-05-03] MEDS: INSULIN LISPRO (AdmeLOG) 1 UNIT/0.01 ML UNIT SC ×3 (00:22→23:32)
[2025-05-03] MEDS: MUPIROCIN OINT 2% 15 GM TUBE TOP ×3 (05:14→21:32)
[2025-05-03] MEDS: PIPER/TAZO 3.375 GM PREMIX 3.375 GM/50 ML BAG IV ×3 (05:15→21:28)
[2025-05-03 06:10] LABS: Basophils # (Auto) 0.1 Thou/mm3 (0.0-0.2); Basophils % (Auto) 0 % (0-2.5); Eosinophils # (Auto) 2.3 Thou/mm3 (0.0-0.5); Eosinophils % (Auto) 6 % (0-10); Hematocrit 24.2 % (41.0-53.0); Immature Granulocytes Auto 2.05 Thou/mm3 (0.00-0.00); Lymphocytes # (Auto) 1.8 Thou/mm3 (1.0-4.8); Lymphocytes % (Auto) 5 % (10-50); Mean Corpuscular HGB Conc 32.2 g/dl (31.0-37.0); Mean Corpuscular Hemoglobin 25.2 pg (25.0-35.0); Mean Corpuscular Volume 78 fL (80-100); Monocytes # (Auto) 1.5 Thou/mm3 (0.0-0.8); Monocytes % (Auto) 4 % (0-12); Neutrophils # (Auto) 28.1 Thou/mm3 (1.8-7.7); Neutrophils % (Auto) 79 % (37-80); Nucleated Red Blood Cell # 0.24 Thou/mm3 (0.00-0.00); Nucleated Red Blood Cell % 1 /100 WBC (0); Platelet Count 302 Thou/mm3 (140-440); RDW Standard Deviation 59.2 fL (35.1-43.9); Red Blood Count 3.10 Miln/mm3 (4.50-5.90)
[2025-05-03 06:26] LABS: Alanine Aminotransferase 14 U/L (10-49); Albumin, Serum 3.0 gm/dL (3.4-4.8); Albumin/Globulin Ratio 1.0 (1.2-2.2); Alkaline Phosphatase 132 U/L (46-116); Anion Gap 10 (7-16); Aspartate Amino Transferase 26 U/L (0-34); BUN/Creatinine Ratio 27 Ratio (12-20); Bilirubin,Total 0.4 mg/dL (0.3-1.2); Blood Urea Nitrogen 41 mg/dL (9-23); Calcium 9.4 mg/dL (8.3-10.6); Calcium (Corrected) 10.2 mg/dL (8.5-10.1); Carbon Dioxide 27.6 mMol/L (20.0-31.0); Chloride 96 mMol/L (98-107); Creatinine (Component) 1.5 mg/dL (0.6-1.3); Estimated Creatinine Clearance 55.3 mL/min (>60); Globulin 3.0 gm/dL (2.3-3.5); Glucose 171 mg/dL (74-106); Magnesium 1.9 mg/dL (1.6-2.6); Osmolality,Calculated 282 (275-295); Phosphorous 3.1 mg/dL (2.4-5.1); Potassium 4.0 mMol/L (3.4-5.1); Sodium 134 mMol/L (136-145); Total Protein 6.0 gm/dL (5.7-8.2); eGFR 47 See Note
[2025-05-03 06:42] LABS: Hemoglobin 7.8 g/dL (13.5-16.0); White Blood Count 35.8 Thou/mm3 (3.8-10.6)
[2025-05-03 07:03] LABS: Glucose Estimated Average 194 mg/dL (80-131); Hemoglobin A1C 8.4 % Hgb (4.8-6.0)
[2025-05-03 07:21] LABS: B-Type Natriuretic Peptide 556 pg/mL (0-100)
[2025-05-03] MEDS: ALBUMIN HUMAN 25% IVPB 25 GM/100 ML BTL IV (08:38)
[2025-05-03] MEDS: EPOETIN ALFA-EPBX INJ 10,000 UNIT/ML VIAL (NON-ESRD) 10000 UNIT IV (08:39)
[2025-05-03] MEDS: ASPIRIN 81 MG CHEW GT (09:25)
[2025-05-03] MEDS: CITRIC ACID/SODIUM CITR 15 ML UDC (BICITRA) 30 ML PO ×2 (09:25→20:29)
--- NOTE | 2025-05-03 09:28 | PC.SS ---
Update: Patient obtaining dialysis session today. EVALUATION ASSISTANT confirmed with resident that outpatient dialysis decision is pending.
[2025-05-03 10:16] LABS: HIV (1&2) Antibody Rapid Non-Reactive
--- NOTE | 2025-05-03 10:23 | PD.RESPRO ---
Documentation for date of: 05/03/25 Subjective Subjective Interval history: Mr Sanchez is a 80-year-old male with significant past medical history of CVA s/p trach/PEG tube, chronic hypoxic respiratory failure, MRSA pneumonia, Pseudomonas UTI, MRSA bacteremia, sacral ulcer, IDDM type II, hypertension, hyperlipidemia, vertebral osteomyelitis, acute pancreatitis, calculus cholelithiasis, MARGARETTE requiring hemodialysis in the past, and decubitus ulcers brought in by [facility] by the [facility] [place] with chief complaint of fever for past 2 days. As per nursing facility staff, the patient is nonverbal at baseline with GCS score is 5, and they provided a note to rule out sepsis. The at bedside is a poor historian, and believe that the patient still interacts with her. Initially in the ED her vitals were BP 128/58, pulse 123, RR 29, temperature 100.9, saturating 100% on 40 L FiO2 via tracheostomy tube. Labs are significant for white count of 28.6, hemoglobin 8.2, MCV 74, platelet 368, ESR 102, D-dimer greater than 3820, ABG revealed pH 7.30, pCO2 41, sodium 117 with corrected sodium for hyperglycemia is 123, potassium 4.1, chloride 87, bicarb 19.9, anion gap 10, BUN/creatinine 36/1.5, GFR 47, blood sugar 299, lactic acid 2.2, magnesium 2.0, T. bili 1.8, direct bilirubin 1.4, AST/ALT/ALP 71/47/229, troponin less than 0.020, CRP greater than 10.0, BNP 138, albumin 3.2, Pro-Tevin 2.28, UA revealed dark yellow urine, turbid, 2+ protein, 3+ blood, leukocyte esterase positive, RBC 1847, WBC 1892, urine bacteria none. Chest x-ray revealed extensive bilateral pneumonia. PMH: As mentioned above SHX: Positive abdominal surgery, tracheostomy, gastrostomy and knee joint replacement Family history: Unobtainable Social history: He is , often comes to visit, others unobtainable Medications: To be reconciled Allergies: NYLA inhibitors, upper airway edema, ARB's for airway edema The patient was given 1 L of bolus normal saline in the ED, vancomycin and cefepime IV x 1, and he is MAP dropped down to less than 65, and was started on Levophed. The patient was admitted to ICU for further management of septic shock secondary to pneumonia and UTI. 04/27/2025: pt admitted to ICU, Nephrology consulted patient seen and examined in ICU pt on pressors, pt is unresponsive to voice and pain, Pupils are fixed and non responsive to light. pt has sacral wounds being examined by wound nurse divya. pt appears hypervolemic on exam, BLE edematous. ICU managing fluids, Na 118, Cl 88, hco3 17, BUN 35, Cr 1.6, Serum Osm 257 UA with 2+ protein 3+ blood. Urine looks concentrated suspect hypervolemia hyponatremia, reccomend diuretics and albumin 04/28/2025: patient seen and examined in the ICU. Pt opens eyes spontaneously. appears hypervolemic on exam with ELE and ELE with significant edema, ICU managing fluids, Na 120, K 3.7 Cl 88, CO2 17, BUN 42 from 35,Cr 1.8 from 1.6. suspect hypervolemic hyponatremia, reccomend trial of 40 IV lasix and IV albumin, bicitra, procrit epogen 10 000 04/29/2025: Patient examined at bedside in the ICU, remains bedbound on blood pressure support via trach. GCS 4T, patient is not following any commands at this time but does open eyes spontaneously. Hyponatremia improving slowly, will start salt tabs at this time and monitor sodium closely. Patient was given IV Lasix yesterday, with minimal improvement. He still appears significantly fluid overloaded, will give albumin for now. 04/30/2025: Patient seen and examined in the ICU, with trach, uop is minimal, german catheter was removed, straight cath q4h with bladder scans. L femoral catheter removed, Bcx pending, WBC elevated to 34, Na 122, BUN 46 from 31, Cr 2.2 from 2. query UTI, vs bacteremia. , HR 100s, BP normotensive. on exam pt has significant edema query whether pt is hypervolemic vs intravascularly down, recommend aldactone 50, given 1L LR per ICU. 05/01/2025: Patient seen and examined in the ICU, trach is midline wo crusting or oozing secretions minimal, straight cath q4 hr with 400 UOP, B cx GPC 1/2 tubes. WBC 31 from 34, pt appears volume overloaded on exam, lungs sounds difficult to appreciate given pt habitus, BUN 46, Cr 2.1 from 2.2. continues on vanc and zosyn. Plan for HD today with fluid removal. reccomend holding fluids today. BP 90s/40s. 05/02/2025 patient currently seen in telemetry. Moved out of ICU. Blood pressure still on the lower side. On midodrine. Hold dialysis today. Did receive 2 dialysis sessions. Yesterday his blood pressure dropped during dialysis. Labs/medications reviewed. No family around. 05/03/2025: Patient seen and examined in telemetry, continues on midodrine, mackay scattered ronchi bilaterally, eyes opening spontaneously, no hd today, BUN 22 from 28, Cr 1.5 from 1.6. rec Ltech for discharge, UPP 200 Exam Vital Signs Temp Pulse Resp BP Pulse Ox O2 Del Method O2 Flow Rate 97.2 F 82 20 116/58 L 99 Mechanical Ventilation 35 05/03/25 09:07 05/03/25 10:15 05/03/25 09:07 05/03/25 10:15 05/03/25 09:07 05/03/25 08:00 05/03/25 09:07 FiO2 30 05/03/25 08:02 Narrative Exam General: No acute distress, comatose, opening eyes spontaneously. HEENT: Moist mucous membranes, oropharynx not assessed (contracted jaw) Neck: trach in place midline CVS: regular rate and rythm, +murmor , rubs or gallops Lungs: Mild rhonchi throughout the lung field, no wheezing, crackles or decreased breath sounds Abd: Soft, NT, slightly distended, +BS, +epigastric peg tube in place with no errythema crusting or drainage around tube. : no german. Ext: diffuse edema of upper and 2+ pitting of the lower extrem, warm and well perfused, R femoral lines Skin: Multiple stages of decubitus ulcers on buttoks and sacrum , L heel with 3cm bruise violacious Psych: comatose Objective Labs 05/03/25 05:00 05/03/25 05:00 Labs: Laboratory Results - last 24 hr 05/01/25 05/02/25 05/02/25 09:23 15:27 19:08 WBC RBC Hgb Hct MCV MCH MCHC RDW Std Deviation Plt Count Neut % (Auto) Lymph % (Auto) Mclennan % (Auto) Eos % (Auto) Baso % (Auto) Neut # (Auto) Lymph # (Auto) Mclennan # (Auto) Eos # (Auto) Baso # (Auto) Immature Gran # (Auto) Absolute Nucleated RBC Immature Gran % Nucleated RBC % Sodium Potassium Chloride Carbon Dioxide Anion Gap BUN Creatinine Estim Creat Clear Calc eGFR BUN/Creatinine Ratio Glucose Estimated Ave Glu mg/dL Hemoglobin A1c Calculated Osmolality Lactic Acid 2.5 H 3.1 H Calcium Corrected Calcium Phosphorus Magnesium Total Bilirubin AST ALT Alkaline Phosphatase B-Natriuretic Peptide Total Protein Albumin Globulin Albumin/Globulin Ratio HIV 1&2 Antibody Rapid Blood Type O Positive Antibody Screen NEGATIVE Crossmatch See Detail Blood Bank Wristband ID Yes 05/03/25 05:00 WBC 35.8 H* D RBC 3.10 L Hgb 7.8 L Hct 24.2 L MCV 78 L MCH 25.2 MCHC 32.2 RDW Std Deviation 59.2 H Plt Count 302 Neut % (Auto) 79 Lymph % (Auto) 5 L Mclennan % (Auto) 4 Eos % (Auto) 6 Baso % (Auto) 0 Neut # (Auto) 28.1 H Lymph # (Auto) 1.8 Mclennan # (Auto) 1.5 H Eos # (Auto) 2.3 H Baso # (Auto) 0.1 Immature Gran # (Auto) 2.05 H Absolute Nucleated RBC 0.24 H Immature Gran % 6 H Nucleated RBC % 1 H Sodium 134 L Potassium 4.0 Chloride 96 L Carbon Dioxide 27.6 Anion Gap 10 BUN 41 H Creatinine 1.5 H Estim Creat Clear Calc 55.3 L eGFR 47 L BUN/Creatinine Ratio 27 H Glucose [address] Glu mg/dL 194 H Hemoglobin A1c 8.4 H Calculated Osmolality 282 Lactic Acid Calcium 9.4 Corrected Calcium 10.2 H Phosphorus 3.1 Magnesium 1.9 Total Bilirubin 0.4 AST 26 ALT 14 Alkaline Phosphatase 132 H D B-Natriuretic Peptide 556 H* Total Protein 6.0 Albumin 3.0 L Globulin 3.0 Albumin/Globulin Ratio 1.0 L HIV 1&2 Antibody Rapid Non-Reactive Blood Type Antibody Screen Crossmatch Blood Bank Wristband ID ABG Interpretation ABG results: 04/27/25 04/27/25 04/27/25 02:12 07:39 09:19 ABG pH 7.30 L 7.18 L* D 7.24 L ABG pCO2 41 53 H D 44 ABG pO2 99 98 110 H ABG HCO3 20 20 19 L ABG O2 Saturation 98 98 99 H ABG Base Excess -6 L -9 L -8 L 04/27/25 04/28/25 04/30/25 12:15 04:10 04:21 ABG pH 7.28 L 7.34 L 7.26 L ABG pCO2 39 36 46 D ABG pO2 135 H D 111 H D 66 L D ABG HCO3 18 L 19 L 20 ABG O2 Saturation 100 H 99 H 93 ABG Base Excess -8 L -6 L -6 L 04/30/25 05/01/25 16:15 04:07 ABG pH 7.31 L 7.30 L ABG pCO2 43 50 H ABG pO2 69 L 64 L ABG HCO3 22 25 ABG O2 Saturation 94 93 ABG Base Excess -4 L -2 Quality Measures Quality Measures VTE prophylaxis Advance care planning discussed with:: other Assessment & Plan Assessment Current Active Medications: Generic Name Dose Route Start Last Admin Trade Name Freq PRN Reason Stop Dose Admin Acetaminophen 650 mg 04/27/25 03:11 04/28/25 07:48 Acetaminophen 325 Mg Tablet PO 05/27/25 03:10 650 mg Q4HR PRN Administration PAIN SCALE 1-3 (mild Aspirin 81 mg 04/27/25 09:00 05/03/25 09:25 Aspirin 81 Mg Chew GT 05/27/25 08:59 81 mg QDAY IMANI Administration Citric Acid/Sodium Citrate 30 ml 04/28/25 10:00 05/03/25 09:25 Citric Acid/Sodium Citr 15 Ml Udc (Bicitra) PO 05/28/25 09:59 30 ml BID IMANI Administration Dextrose 25 ml 04/27/25 03:37 Dextrose 50%-Water Inj 50 Ml Syringe IV 05/27/25 03:36 Q15MIN PRN BG 50-70 responsive npo pt Dextrose 50 ml 04/27/25 03:37 Dextrose 50%-Water Inj 50 Ml Syringe IV 05/27/25 03:36 Q15MIN PRN BG <50 OR BG <70 & pt unresponsive Glucagon 1 mg 04/27/25 03:37 Glucagon Inj 1 Mg Vial IM Q15MIN PRN BG <70, and no IV access Heparin Sodium (Porcine) 5,000 unit 04/27/25 06:00 05/03/25 05:36 Heparin Sod Inj 5000 Unit/Ml Vial SC 05/11/25 05:59 Not Given Q8HR IMANI Heparin Sodium (Porcine) 3,000 unit 04/30/25 11:01 05/01/25 11:53 Heparin Sod Inj 1000 Unit/Ml Vial 10 Ml INDWELLCAT 05/14/25 11:00 3,000 unit PRN PRN Administration DIALYSIS Piperacillin/Tazobactam/Dextrose 3.375 gm in 50 mls @ 12.5 mls/hr 04/30/25 22:00 05/03/25 05:15 Zosyn IV 05/07/25 21:59 12.5 mls/hr Q8HR IMANI Administration Insulin Degludec 22 unit 05/01/25 21:00 05/02/25 20:52 Insulin Degludec 5 Unit/0.05 Ml (Per 5 Units) SC 05/31/25 20:59 22 unit HS IMANI Administration Insulin Human Lispro 0 unit 04/27/25 06:00 05/03/25 05:14 Insulin Lispro (Admelog) 1 Unit/0.01 Ml Unit SC 05/27/25 05:59 1 unit Q6HR [facility] Administration Protocol Magnesium Hydroxide 30 ml 04/27/25 03:11 Milk Of Magnesia Susp 30 Ml Udc PO 05/27/25 03:10 QDAY PRN CONSTIPATION Midodrine 10 mg 05/02/25 10:45 05/03/25 05:14 Midodrine 5 Mg Tablet PO 06/01/25 10:44 Not Given TID [facility] Mupirocin 0 gm 04/28/25 22:00 05/03/25 05:14 Mupirocin Oint 2% 15 Gm Tube TOP 05/05/25 21:59 1 applicatio TID IMANI Administration Plan Mr Sanchez is a 80-year-old gentleman with hx of CVA s/p trach/PEG tube, chronic hypoxic respiratory failure, MRSA pneumonia, Pseudomonas UTI, MRSA bacteremia, sacral ulcer, IDDM type II (poorl controlled A1c 10.5), hypertension, hyperlipidemia, vertebral osteomyelitis, hx of MARGARETTE requiring hemodialysis in the past, whose baseline mental status is GCS 5, admitted to ICU for septic shock 2/2 PNA vs UTI, requiring pressors and hyponatremia, with minimal UOP 280 ccs, trial lasix and albumin given suspicion of hypervolemic hyponatremia however UOP is minimal, german cath removed and L fem cath removed, WBC 34, 1/2 bcx with GPC, on vanc and zosyn. query UTI, WBC remains significantly elevated at 35, pt with significant anisarca, however query low intravascular volume. pt may benefit from aldactone 50 if >concern for hypervolemia. holding IV fluids , Plan for HD today Hypervolemic hyponatremia - hyponatremia resolving query hypovolemic hyponatremia The patient presented with sodium of 117, but the corrected sodium was 123 (pt hyerglycemic to 288) The patient received 1 L of normal saline in the ED for sepsis and 1 L LR in the ICU Serum osm 257: hypernatremic, hypotonic, hypervolemic on exam: query CHF vs renal failure, vs cirrhosis vs nephrotic syndrome (UA with 2+ protein) - Was given IV lasix 40mg x1 in 04/28 with minimal improvement - 04/29: Na 120 -> 121 , appears hypervolemic on exam BUE and BLE edematous. - 04/30: Na 122, significant anisarca, start HD - 05/01: Na 126 (Corrected Na is 130 given serum glucose 217) significant ansiarca, HD today with fluid removal hold iv fluids today - 05/03: Na 134, Last HD: 04/30, 05/01, 05/03 Plan: - HD today - Continue IV Albumin 25mg IV BID - Hyponatremia improving slowly, (gave salt tabs) - rec holding fluids - On Bicitra given HCO3 low may help correct hyponatremia - Sodium checks per primary team MARGARETTE- query new CKD, cr stable at 1.5 nonnephrotic range proteinuria Likely prerenal secondary to sepsis Presented with creatinine of 1.5, baseline creatinine about 0.7-0.8 Patient received 1 L of normal saline in the ED, given c/f worsening his hyponatremia, sepsis protocol resusitation was not initaited. given 1L LR in the ICU Urine Protein Cr ratio: 115: 53= 2.6 (nonnephrotic rage protienuria) - 04/27 Cr 1.6, BUN 35 - 04/28, Cr 1.8, BUN 42 - 04/29: BUN 43 and GFR 36 - 04/30: Cr 2.2 from 2, BUN 46 from 31 - 05/01: Cr 2.1 from 2.2, BUN 45 from 46 (stable) BP 90s/40s, - 05/03: Cr 1.5 Plan: - daily CMP, Mg, Phos - Renally dose medications - Avoid nephrotoxins - will likely need HD outpt 2 days/week Lactic acidosis 2/2 sepsis- resolved Likely complicated by diarrhea with bicarbonate loss via stool Patient received 1 L of normal saline in the ED Lactic acid: 2.5 to 1.0 bicarb low, - cont bicitra - Daily CMP other medical problems 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 Due to concern of overcorrection of hyponatremia, full 30 cc/kg body fluid was not given. Bcx with staph epi CTAP repeat, with bibasilar pna Bilateral healthcare associated pneumonia Possible acute hypoxic respiratory failure 2/2 query aspiration pneumonia Severe UTI -on abx german removed, straight cath q4hr hypotension - on midodrine 5 mg TID Chronic respiratory failure 2/2 S/p CVA mech ventilation per trach tube, Transaminitis - resolved Diarrhea - cdiff negative Nutrition per peg tube Acute hgb drop- now stable Microcytic anemia - likely dilutional given decrease in other cell lines, - give procrit 10 000 - iron deficiency, iron studies low, retic count elevated. Non-anion gap metabolic acidosis Insulin-dependent diabetes mellitus type 2 - A1c 10.5 Multistage decubitus ulcer HTN HLD - managment per primary team Plan discussed with nephrology attending Dr. Camila Conner MD Internal Medicine PGY-1 Attending Provider Attestation/Addendum Patient seen and examined with resident physician Dr. Conner. Note reviewed, agree with findings and recommendations. Spoke to -- Patient basically bedbound with status post trach and PEG for the last 5 years. Medications and labs reviewed. 05/03/2025 Clinically patient looks edematous-patient was given diuretics, IV fluids with no improvement in urine output. White count still elevated. Suspected pneumonia-on antibiotics. Due to persistent hyponatremia, significant fluid overload and oligoanuric state-decided to proceed with dialysis. Family agreed. Vas-Cath placed by ICU team. Patient currently on dialysis. Hemodialysis for 3hours, 2K, ultrafiltration 2 L, Epogen 6000, no heparin ordered. Plan of care discussed with primary team. Please see dialysis flowsheet for further details. Prognosis remains guarded. [facility] not [facility].
--- NOTE | 2025-05-03 10:45 | XR_ITS ---
Examination: CT abdomen and pelvis without contrast. Coronal 3-D reconstructions. Sagittal 2-D reconstructions. Date and time of exam:July 03, 2025, 1332 hours Comparison January 20, 2023 INDICATIONS: Abdominal pain this week CTDI: vol (mGy): 24.7 DLP: (mGycm): 1893 Technique: Axial images of the abdomen have been obtained, 3 mm slice thickness Intravenous contrast material has not been administered. Low dose protocols were performed. One or more of the following dose reduction techniques were used; automated exposure control, adjustment of the mA and/or KV according to patient size, use of iterative reconstruction technique. Findings: Bibasilar pneumonia with small pleural effusions Hepatomegaly 25 cm Gallstones, contracted gallbladder Gastrostomy tube satisfactory position No pancreatic mass Matted bowel loops versus mass in the left upper abdomen, axial image 86, measuring 7.6 cm in dimension 5 cm calcified cyst upper pole left kidney No hydronephrosis Mild ascites No pericecal inflammatory change No diverticulitis Contracted urinary bladder Transverse prostate dimension 4.5 cm Significant osteopenia IMPRESSION: Bibasilar pneumonia with small pleural effusions Cholelithiasis Recommend repeat CT abdomen post intravenous and oral contrast to assess bowel loops versus mass in the left upper abdomen 7.6 cm Mild ascites
[2025-05-03] MEDS: HEPARIN SOD INJ 1000 UNIT/ML VIAL 10 ML 3000 UNIT INDWELLCAT (11:49)
[2025-05-03 13:00] LABS: Lactate (Lactic Acid) 1.7 mMol/L (0.4-2.0)
--- NOTE | 2025-05-03 13:57 | ESPR_ITS ---
<Statement entered by Pura Edwards MD - 05/03/25 17:33> I have reviewed the note and agree with the resident's assessment & plan with exceptions as below. I have personally reviewed labs, imaging, home meds/prior records, examined the patient, formulated and discussed management plan with the IM team. Patient examined at bedside today. Patient had worsening of bed wound/sore. Will continue with wound care for further evaluation, will transition to SCDs at this time. Will repeat CT scan with Gastrografin. Nephrology on consult, appreciate recommendations. Will need to determine if patient needs outpatient hemodialysis as patient has acute renal failure and oliguria likely related to acute tubular necrosis. Patient also having possible PEG tube malformation with possible aspiration, will consult GI at this time. Repeat hematology, electrolytes and chemistry in AM. Hemodialysis today. Pura Edwards, PGY-2 Internal Medicine Documentation for date of: 05/03/25 Subjective Subjective Interval history: Overnight patient was reported to have hematoma on posterior thigh, heparin was held; also Patient seen and examined at bedside on the floors. Vitals this morning notable for BP 164/85, O2 saturation of 97% on 30% FIO2. Patient's midodrine was held. Patient will need LTACH and outpatient HD. Exam Vital Signs Temp Pulse Resp BP Pulse Ox O2 Del Method O2 Flow Rate 96.4 F L 83 20 129/72 100 Mechanical Ventilation 35 05/03/25 11:29 05/03/25 12:00 05/03/25 11:29 05/03/25 11:38 05/03/25 11:29 05/03/25 08:00 05/03/25 09:07 FiO2 30 05/03/25 12:00 Narrative Exam General: At his baseline. Spontaneously opening and blinking. HEENT: Normocephalic, atraumatic, mucous membranes moist. Heart: Regular rate and rhythm, no murmurs. Lungs: Clear to auscultation with no wheezing or crackles. Abdomen: Hard, distended.?No guarding or rebound tenderness. Neurologic: At his baseline. Spontaneously opening and blinking to give response. Extremities: noted Anasarca Skin: No rash or ecchymoses. noted to have decubitus ulcers Objective Labs 05/04/25 05:00 05/04/25 05:00 Labs: Laboratory Results - last 24 hr 05/01/25 05/02/25 05/02/25 09:23 15:27 19:08 WBC RBC Hgb Hct MCV MCH MCHC RDW Std Deviation Plt Count Neut % (Auto) Lymph % (Auto) [place] % (Auto) Eos % (Auto) Baso % (Auto) Neut # (Auto) Lymph # (Auto) [place] # (Auto) Eos # (Auto) Baso # (Auto) Immature Gran # (Auto) Absolute Nucleated RBC Immature Gran % Nucleated RBC % Smear Path Review Sodium Potassium Chloride Carbon Dioxide Anion Gap BUN Creatinine Estim Creat Clear Calc eGFR BUN/Creatinine Ratio Glucose Estimated Ave Glu mg/dL Hemoglobin A1c Calculated Osmolality Lactic Acid 2.5 H 3.1 H Calcium Corrected Calcium Phosphorus Magnesium Total Bilirubin AST ALT Alkaline Phosphatase B-Natriuretic Peptide Total Protein Albumin Globulin Albumin/Globulin Ratio HIV 1&2 Antibody Rapid Blood Type O Positive Antibody Screen NEGATIVE Crossmatch See Detail Blood Bank Wristband ID Yes 05/03/25 05/03/25 05:00 12:36 WBC 35.8 H* D RBC 3.10 L Hgb 7.8 L Hct 24.2 L MCV 78 L MCH 25.2 MCHC 32.2 RDW Std Deviation 59.2 H Plt Count 302 Neut % (Auto) 79 Lymph % (Auto) 5 L [place] % (Auto) 4 Eos % (Auto) 6 Baso % (Auto) 0 Neut # (Auto) 28.1 H Lymph # (Auto) 1.8 [place] # (Auto) 1.5 H Eos # (Auto) 2.3 H Baso # (Auto) 0.1 Immature Gran # (Auto) 2.05 H Absolute Nucleated RBC 0.24 H Immature Gran % 6 H Nucleated RBC % 1 H Smear Path Review Cancelled Sodium 134 L Potassium 4.0 Chloride 96 L Carbon Dioxide 27.6 Anion Gap 10 BUN 41 H Creatinine 1.5 H Estim Creat Clear Calc 55.3 L eGFR 47 L BUN/Creatinine Ratio 27 H Glucose [address] Glu mg/dL 194 H Hemoglobin A1c 8.4 H Calculated Osmolality 282 Lactic Acid 1.7 Calcium 9.4 Corrected Calcium 10.2 H Phosphorus 3.1 Magnesium 1.9 Total Bilirubin 0.4 AST 26 ALT 14 Alkaline Phosphatase 132 H D B-Natriuretic Peptide 556 H* Total Protein 6.0 Albumin 3.0 L Globulin 3.0 Albumin/Globulin Ratio 1.0 L HIV 1&2 Antibody Rapid Non-Reactive Blood Type Antibody Screen Crossmatch Blood Bank Wristband ID ABG Interpretation ABG results: 04/27/25 04/27/25 04/27/25 02:12 07:39 09:19 ABG pH 7.30 L 7.18 L* D 7.24 L ABG pCO2 41 53 H D 44 ABG pO2 99 98 110 H ABG HCO3 20 20 19 L ABG O2 Saturation 98 98 99 H ABG Base Excess -6 L -9 L -8 L 04/27/25 04/28/25 04/30/25 12:15 04:10 04:21 ABG pH 7.28 L 7.34 L 7.26 L ABG pCO2 39 36 46 D ABG pO2 135 H D 111 H D 66 L D ABG HCO3 18 L 19 L 20 ABG O2 Saturation 100 H 99 H 93 ABG Base Excess -8 L -6 L -6 L 04/30/25 05/01/25 16:15 04:07 ABG pH 7.31 L 7.30 L ABG pCO2 43 50 H ABG pO2 69 L 64 L ABG HCO3 22 25 ABG O2 Saturation 94 93 ABG Base Excess -4 L -2 Quality Measures Quality Measures VTE prophylaxis Advance care planning discussed with:: patient and other Assessment & Plan Assessment Current Active Medications: Generic Name Dose Route Start Last Admin Trade Name Freq PRN Reason Stop Dose Admin Acetaminophen 650 mg 04/27/25 03:11 04/28/25 07:48 Acetaminophen 325 Mg Tablet PO 05/27/25 03:10 650 mg Q4HR PRN Administration PAIN SCALE 1-3 (mild Aspirin 81 mg 04/27/25 09:00 05/03/25 09:25 Aspirin 81 Mg Chew GT 05/27/25 08:59 81 mg QDAY IMANI Administration Citric Acid/Sodium Citrate 30 ml 04/28/25 10:00 05/03/25 09:25 Citric Acid/Sodium Citr 15 Ml Udc (Bicitra) PO 05/28/25 09:59 30 ml BID IMANI Administration Dextrose 25 ml 04/27/25 03:37 Dextrose 50%-Water Inj 50 Ml Syringe IV 05/27/25 03:36 Q15MIN PRN BG 50-70 responsive npo pt Dextrose 50 ml 04/27/25 03:37 Dextrose 50%-Water Inj 50 Ml Syringe IV 05/27/25 03:36 Q15MIN PRN BG <50 OR BG <70 & pt unresponsive Glucagon 1 mg 04/27/25 03:37 Glucagon Inj 1 Mg Vial IM Q15MIN PRN BG <70, and no IV access Heparin Sodium (Porcine) 5,000 unit 04/27/25 06:00 05/03/25 05:36 Heparin Sod Inj 5000 Unit/Ml Vial SC 05/11/25 05:59 Not Given Q8HR IMANI Heparin Sodium (Porcine) 3,000 unit 04/30/25 11:01 05/03/25 11:49 Heparin Sod Inj 1000 Unit/Ml Vial 10 Ml INDWELLCAT 05/14/25 11:00 3,000 unit PRN PRN Administration DIALYSIS Piperacillin/Tazobactam/Dextrose 3.375 gm in 50 mls @ 12.5 mls/hr 04/30/25 22:00 05/03/25 05:15 Zosyn IV 05/07/25 21:59 12.5 mls/hr Q8HR IMANI Administration Insulin Degludec 22 unit 05/01/25 21:00 05/02/25 20:52 Insulin Degludec 5 Unit/0.05 Ml (Per 5 Units) SC 05/31/25 20:59 22 unit HS IMANI Administration Insulin Human Lispro 0 unit 04/27/25 06:00 05/03/25 12:55 Insulin Lispro (Admelog) 1 Unit/0.01 Ml Unit SC 05/27/25 05:59 Not Given Q6HR [facility] Protocol Magnesium Hydroxide 30 ml 04/27/25 03:11 Milk Of Magnesia Susp 30 Ml Udc PO 05/27/25 03:10 QDAY PRN CONSTIPATION Midodrine 10 mg 05/02/25 10:45 05/03/25 05:14 Midodrine 5 Mg Tablet PO 06/01/25 10:44 Not Given TID [facility] Mupirocin 0 gm 04/28/25 22:00 05/03/25 05:14 Mupirocin Oint 2% 15 Gm Tube TOP 05/05/25 21:59 1 applicatio TID [facility] Administration Plan Kwadwo Sanchez is a 80-year-old male with significant past medical history of CVA s/p trach/PEG tube, chronic hypoxic respiratory failure, MRSA pneumonia, Pseudomonas UTI, MRSA bacteremia, sacral ulcer, IDDM type II, hypertension, hyperlipidemia, vertebral osteomyelitis, acute pancreatitis, calculus cholelithiasis, MARGARETTE requiring hemodialysis in the past, and decubitus ulcers brought in by [facility] by the [facility] [place] with chief complaint of fever for past 2 days. Patient was admitted to ICU for further management of septic shock secondary to pneumonia and UTI; Downgraded from ICU, no longer needing pressors; continuing to manage unresolved sepsis. #Sepsis #Healthcare associated pneumonia Vs Severe UTI #S/p chronic tracheostomy #Leukocytosis Patient presented with fever, tachycardia, white count of 28 and RR 29, lactic acid 2.2, and requiring pressure support. The patient received 1 L of normal saline in the ED. As patient appears to be fluid overloaded, full 30 cc/kg body fluid was not given. Chest x-ray revealed bilateral pneumonia, UA revealed dark yellow urine, turbid, 2+ protein, 3+ blood, leukocyte esterase positive, RBC 1847, WBC 1892, urine bacteria none ECHO on 04/27 - Normal LV size and function. Estimated EF at 55 -60%%. Grade I diastolic dysfunction. Started on Levophed, weaned off completely as of 04/27 Repeat blood cultures on 04/29/2025, 1 set of culture came back positive for GPC but likely contaminant CT A/P 05/02 showed Significant bibasilar pneumonia, consider aspiration pneumonia;Mild to moderate bilateral pleural effusions; Significant hepatosplenomegaly; Abnormal small bowel in the left upper abdomen, recommend follow-up CT abdomen pelvis with oral Gastrografin. - GI consulted PEG tube evaluation for possible aspiration PNA with recent residuals present from PEG tube - CT A/P ordered with oral gastrograffin regarding abnormal small bowel seen on previous CT. - Continuing zosyn. - Midodrine 10mg TID as needed if MAP < 65 and SBP <100 #MARGARETTE Likely prerenal leading to ATN secondary to sepsis Presented with creatinine of 1.5, baseline creatinine about 0.7-0.8 Patient received 1 L of normal saline in the ED Patient appears to produce low urine output as of now - Set Up Machinist, Dr. Jensen is consulted, HD 04/30, 05/01 via R femoral line. - Received HD 05/03 with total 2 L removed - Will need outpatient Hemodialysis - Will continue to monitor renal panel - Renally dose medications and Avoid nephrotoxins # Hyponatremia, resolving Possibly due to renal failure, CHF, cirrhosis The patient presented with sodium of 117, but corrected sodium was 123 --> 05/01, 126 The patient received 1 L of normal saline in the ED for sepsis and 1 more bolus of LR is given in the ICU - Will continue to monitor sodium levels - Set Up Machinist, Dr. Jensen is consulted and will appreciate her recommendations. 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 EF is 55 to 60% - Will require cardiac catheterization after discharge to categorize pulmonary hypertension and needs treatment accordingly. #Hypertension, well controlled - Using Amlodipine 10mg every day and will Hold medications for now. #Insulin-dependent diabetes mellitus type 2 - Started on insulin degludec 13 units daily at night, increased to 18 units, adjusted to 22 units as of 05/01 based on blood sugars on morning labs - Sliding scale insulin lispro every 6 hourly with fingerstick blood sugar checks - A1c ordered - 10.5 #Microcytic anemia Likely 2/2 anemia of chronic disease, but could not rule out other differentials like nutritional deficiency - Iron panel, ferritin, folic acid, vitamin B12, reticulocyte count, peripheral smear and LDH ordered - showed iron deficiency - Will supplement iron once the infection is resolved - Daily a.m. 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 De La Fuente & resident physician Dr. Grace Méndez MD PGY-1 Attending Provider Attestation/Addendum I reviewed labs, imaging, EKG, home medications and prior available records. Face to face evaluation was performed by me. I have personally examined the patient and discussed assessment and plan with the IM team. I reviewed the resident note and agree with the plan with exceptions as below. Chronic hypoxic respiratory failure CVA status post trach and PEG Septic shock, secondary to urinary versus pulmonary source Hyponatremia MARGARETTE Type 2 diabetes mellitus He is off pressors Continue Zosyn for 7 days per ID recommendations Ordered CT of the chest, abdomen, and pelvis that showed bibasilar pneumonia with possible aspiration pneumonia. Possible SBO. Ordered CT Gastrografin study Consulted GI given the abnormal CT Trend WBC: Downtrending Continue aspirin Started hemodialysis. Nephrology is following Monitor kidney function. He was started on intermittent dialysis Monitor sodium level Consulted ID Held subcutaneous heparin secondary to thigh hematoma
--- NOTE | 2025-05-03 16:03 | PC.SS ---
Rounding Note: Patient receiving 3rd session of dialysis. GI is consulting on the case.
--- NOTE | 2025-05-03 16:54 | PC.SS ---
[employer] conducted bedside contact with patient's spouse to discuss discharge plan. Due to patient's possible need for outpatient dialysis spouse requesting that patient not be transitioned to LTAC but rather [facility] hospital while patient undergo's dialysis. Preferably [place] [facility] or [place] [facility] [employer] expressed to the patient's spouse duration of dialysis not known at current time. Spouse informed that [employer] will reach out to patient's [facility] hospital social worker, Stephanie Langston ext [phone]; to determine if patient can transition to [facility] hospital for dialysis session either short term or penitentiary. [employer] attempted phone contact with V.A. hospital social worker, no response. [employer]ER left voicemail relaying request.
[2025-05-03] MEDS: ACETAMINOPHEN 325 MG TABLET 650 MG PO (18:18)
--- NOTE | 2025-05-03 19:40 | PC.NURSE ---
[facility]. TO THE RIGHT FEMORAL/GROIN AREA WAS SOILED UPON ASSESSMENT. PHYSICIAN NOTIFIED OF THE APPEARANCE OF PURULENT DRAINAGE FROM THE [facility] SITE, WITH THE BIO-PATCH BEING SOAKED IN THE DRAINAGE. PHYSICIAN SETH LANCASTER ARRIVED TO THE ROOM AT 1945 AND ASSESSED THE AREA. WILL CONSULT THE DAY TEAM FOR THE POSSIBLE REMOVAL/REPLACEMENT/CULTURE OF THE SITE. CHARGE NURSE RENETTA ALSO NOTIFIED. NEW ORDERS FOR A WOUND CONSULT RECEIVED FOR THE SITE, AND THOROUGH CLEANING OF THE SITE WITH CHLORHEXIDINE X2, AND DRESSING REPLACEMENT.
[2025-05-03] MEDS: INSULIN DEGLUDEC 5 UNIT/0.05 ML (PER 5 UNITS) 22 UNIT SC (20:29)
--- NOTE | 2025-05-03 22:27 | PD.IMCONS ---
HPI Data of Consult Requesting Physician: Fer Felipe MD Primary Care Provider: Alexa Heredia MD Consult Narrative Reason for consult: PEG tube evaluation History of present illness: 80 years old male evaluated in room 269 who is status post tracheostomy and PEG tube placement for possible aspiration and evaluation of the PEG tube cc:: cc: Fer Felipe MD Review of Systems Review of Systems ROS Unobtainable: unobtainable due to medical condition Meds Home Medications and Allergies Home Medications ?Medication ?Instructions ?Recorded ?Confirmed ?Type ascorbic acid (vitamin C) 500 mg 500 mg feeding tube BID 01/05/22 04/27/25 History tablet aspirin 81 mg chewable tablet 81 mg feeding tube QDAY 01/05/22 04/27/25 History cetirizine 10 mg tablet 10 mg feeding tube QDAY 01/05/22 04/27/25 History clopidogrel 75 mg tablet 75 mg feeding tube QDAY 01/05/22 04/27/25 History ezetimibe 10 mg tablet 10 mg feeding tube QPM 01/05/22 04/27/25 History fluticasone propionate 50 1 spray intranasal QDAY 01/05/22 04/27/25 History mcg/actuation nasal spray,suspension glipizide 5 mg tablet 5 mg feeding tube QDAY 01/05/22 04/27/25 History melatonin 3 mg tablet 5 mg feeding tube HS 01/05/22 04/27/25 History multivitamin with minerals 15 ml feeding tube QDAY 01/05/22 04/27/25 History sodium phosphates 19 gram-7 118 ml HI PRN PRN Constipation 01/05/22 04/27/25 History gram/118 mL enema (Fleet Enema) lactulose 10 gram/15 mL oral 20 g PO QDAY 08/14/22 04/27/25 History solution simethicone 80 mg chewable tablet 80 mg feeding tube BID 08/14/22 04/27/25 History bisacodyl 10 mg rectal suppository 10 mg HI EVERYOTHERDAY PRN bowel 11/27/22 04/27/25 History gabapentin 300 mg capsule 600 mg PO BID 11/27/22 04/27/25 History amlodipine 5 mg tablet 10 mg feeding tube QDAY 01/16/23 04/27/25 History ferrous sulfate 220 mg (44 mg 220 mg PO QDAY 01/16/23 04/27/25 History iron)/5 mL oral solution furosemide 20 mg tablet 20 mg PO QDAY 01/16/23 04/27/25 History insulin glargine 100 unit/mL 25 unit subcut QPM 01/16/23 04/27/25 History subcutaneous cartridge ketotifen fumarate 0.025 % (0.035 1 drp ophthalmic (eye) BID 01/16/23 04/27/25 History %) eye drops sennosides 8.8 mg/5 mL oral syrup 5 ml PO BID 01/16/23 04/27/25 History (senna) sodium bicarbonate 650 mg tablet 650 mg PO QDAY 01/16/23 04/27/25 History sodium zirconium cyclosilicate 5 5 g PO Q OTHER DAY 01/16/23 04/27/25 History gram oral powder packet (Lokelma) Allergies Allergy/AdvReac Type Severity Reaction Status Date / Time NYLA Inhibitors AdvReac Severe Upper Verified 04/20/24 14:37 Airway Edema ARB-Angiotensin Receptor AdvReac Severe Upper Verified 04/20/24 14:37 Antagonist Airway Edema Exam Vital Signs Temp Pulse Resp BP Pulse Ox O2 Del Method O2 Flow Rate 97.8 F 79 22 H 152/80 H 100 Mechanical Ventilation 30 05/03/25 22:13 05/03/25 22:13 05/03/25 22:13 05/03/25 22:13 05/03/25 22:13 05/03/25 20:00 05/03/25 22:13 FiO2 30 05/03/25 20:00 Constitutional Comments: Chronically ill Routine Abdominal Exam Comments: PEG tube in place slightly irritated but no drainage Results Labs 05/03/25 05:00 05/03/25 05:00 Labs: Short CBC 05/03/25 Range/Units 05:00 WBC 35.8 H* D (3.8-10.6) Thou/mm3 Hgb 7.8 L (13.5-16.0) g/dL Hct 24.2 L (41.0-53.0) % Plt Count 302 (140-440) Thou/mm3 BMP 05/03/25 05:00 Sodium 134 L Potassium 4.0 Chloride 96 L Carbon Dioxide 27.6 BUN 41 H Creatinine 1.5 H Glucose 171 H Calcium 9.4 Liver Function 05/03/25 Range/Units 05:00 Total Bilirubin 0.4 (0.3-1.2) mg/dL AST 26 (0-34) U/L ALT 14 (10-49) U/L Alkaline Phosphatase 132 H D (46-116) U/L Albumin 3.0 L (3.4-4.8) gm/dL ABG Interpretation ABG results: 04/27/25 04/27/25 04/27/25 02:12 07:39 09:19 ABG pH 7.30 L 7.18 L* D 7.24 L ABG pCO2 41 53 H D 44 ABG pO2 99 98 110 H ABG HCO3 20 20 19 L ABG O2 Saturation 98 98 99 H ABG Base Excess -6 L -9 L -8 L 04/27/25 04/28/25 04/30/25 12:15 04:10 04:21 ABG pH 7.28 L 7.34 L 7.26 L ABG pCO2 39 36 46 D ABG pO2 135 H D 111 H D 66 L D ABG HCO3 18 L 19 L 20 ABG O2 Saturation 100 H 99 H 93 ABG Base Excess -8 L -6 L -6 L 04/30/25 05/01/25 16:15 04:07 ABG pH 7.31 L 7.30 L ABG pCO2 43 50 H ABG pO2 69 L 64 L ABG HCO3 22 25 ABG O2 Saturation 94 93 ABG Base Excess -4 L -2 Assessment and Plan Additional Assessment & Plan Additional Plan: Malfunctioning PEG tube with no gastric residual issues at the moment Reglan 5 mg IV push every 6 hours Will order a tube with the gastric port and the jejunostomy port and when it arrives I will replace his tube either here or in the SNF The gastrostomy port can be used for meds and the jejunostomy port can be used for feeding the patient Thank you very much for the opportunity to participate in care of this patient
[2025-05-03] MEDS: METOCLOPRAMIDE INJ 5 MG/ML VIAL 2 ML IVP (23:33)
[2025-05-04] VITALS (15 sets, daily range): BP systolic 130–169; BP diastolic 80–94; PULSE 88–102; RESP 19–25; TEMP 35.9–36.4; O2SAT 93–100; BMI 41.3
[2025-05-04] MEDS: MUPIROCIN OINT 2% 15 GM TUBE TOP ×3 (05:32→21:12)
[2025-05-04] MEDS: METOCLOPRAMIDE INJ 5 MG/ML VIAL 2 ML IVP ×4 (05:43→23:57)
[2025-05-04] MEDS: PIPER/TAZO 3.375 GM PREMIX 3.375 GM/50 ML BAG IV ×3 (05:43→21:12)
[2025-05-04 05:51] LABS: Basophils # (Auto) 0.2 Thou/mm3 (0.0-0.2); Basophils % (Auto) 1 % (0-2.5); Eosinophils # (Auto) 1.3 Thou/mm3 (0.0-0.5); Eosinophils % (Auto) 6 % (0-10); Hematocrit 28.1 % (41.0-53.0); Hemoglobin 8.9 g/dL (13.5-16.0); Immature Granulocytes Auto 1.47 Thou/mm3 (0.00-0.00); Lymphocytes # (Auto) 1.5 Thou/mm3 (1.0-4.8); Lymphocytes % (Auto) 6 % (10-50); Mean Corpuscular HGB Conc 31.7 g/dl (31.0-37.0); Mean Corpuscular Hemoglobin 24.7 pg (25.0-35.0); Mean Corpuscular Volume 78 fL (80-100); Monocytes # (Auto) 1.2 Thou/mm3 (0.0-0.8); Monocytes % (Auto) 5 % (0-12); Neutrophils # (Auto) 17.4 Thou/mm3 (1.8-7.7); Neutrophils % (Auto) 76 % (37-80); Nucleated Red Blood Cell # 0.33 Thou/mm3 (0.00-0.00); Nucleated Red Blood Cell % 1 /100 WBC (0); Platelet Count 284 Thou/mm3 (140-440); RDW Standard Deviation 59.6 fL (35.1-43.9); Red Blood Count 3.61 Miln/mm3 (4.50-5.90); White Blood Count 23.0 Thou/mm3 (3.8-10.6)
[2025-05-04 06:16] LABS: Alanine Aminotransferase 11 U/L (10-49); Albumin, Serum 3.3 gm/dL (3.4-4.8); Albumin/Globulin Ratio 1.1 (1.2-2.2); Alkaline Phosphatase 135 U/L (46-116); Anion Gap 11 (7-16); Aspartate Amino Transferase 20 U/L (0-34); BUN/Creatinine Ratio 30 Ratio (12-20); Bilirubin,Total 0.6 mg/dL (0.3-1.2); Blood Urea Nitrogen 30 mg/dL (9-23); Calcium 9.5 mg/dL (8.3-10.6); Calcium (Corrected) 10.1 mg/dL (8.5-10.1); Carbon Dioxide 28.1 mMol/L (20.0-31.0); Chloride 97 mMol/L (98-107); Creatinine (Component) 1.0 mg/dL (0.6-1.3); Estimated Creatinine Clearance 82.8 mL/min (>60); Globulin 3.1 gm/dL (2.3-3.5); Glucose 154 mg/dL (74-106); Magnesium 1.8 mg/dL (1.6-2.6); Osmolality,Calculated 281 (275-295); Phosphorous 2.9 mg/dL (2.4-5.1); Potassium 3.9 mMol/L (3.4-5.1); Sodium 136 mMol/L (136-145); Total Protein 6.4 gm/dL (5.7-8.2); eGFR > 60 See Note
--- NOTE | 2025-05-04 08:22 | PD.RESPRO ---
Documentation for date of: 05/04/25 Subjective Subjective Interval history: Mr Sanchez is a 80-year-old male with significant past medical history of CVA s/p trach/PEG tube, chronic hypoxic respiratory failure, MRSA pneumonia, Pseudomonas UTI, MRSA bacteremia, sacral ulcer, IDDM type II, hypertension, hyperlipidemia, vertebral osteomyelitis, acute pancreatitis, calculus cholelithiasis, MARGARETTE requiring hemodialysis in the past, and decubitus ulcers brought in by [facility] by the [facility] [place] with chief complaint of fever for past 2 days. As per nursing facility staff, the patient is nonverbal at baseline with GCS score is 5, and they provided a note to rule out sepsis. The at bedside is a poor historian, and believe that the patient still interacts with her. Initially in the ED her vitals were BP 128/58, pulse 123, RR 29, temperature 100.9, saturating 100% on 40 L FiO2 via tracheostomy tube. Labs are significant for white count of 28.6, hemoglobin 8.2, MCV 74, platelet 368, ESR 102, D-dimer greater than 3820, ABG revealed pH 7.30, pCO2 41, sodium 117 with corrected sodium for hyperglycemia is 123, potassium 4.1, chloride 87, bicarb 19.9, anion gap 10, BUN/creatinine 36/1.5, GFR 47, blood sugar 299, lactic acid 2.2, magnesium 2.0, T. bili 1.8, direct bilirubin 1.4, AST/ALT/ALP 71/47/229, troponin less than 0.020, CRP greater than 10.0, BNP 138, albumin 3.2, Pro-Tevin 2.28, UA revealed dark yellow urine, turbid, 2+ protein, 3+ blood, leukocyte esterase positive, RBC 1847, WBC 1892, urine bacteria none. Chest x-ray revealed extensive bilateral pneumonia. PMH: As mentioned above SHX: Positive abdominal surgery, tracheostomy, gastrostomy and knee joint replacement Family history: Unobtainable Social history: He is , often comes to visit, others unobtainable Medications: To be reconciled Allergies: NYLA inhibitors, upper airway edema, ARB's for airway edema The patient was given 1 L of bolus normal saline in the ED, vancomycin and cefepime IV x 1, and he is MAP dropped down to less than 65, and was started on Levophed. The patient was admitted to ICU for further management of septic shock secondary to pneumonia and UTI. 04/27/2025: pt admitted to ICU, Nephrology consulted patient seen and examined in ICU pt on pressors, pt is unresponsive to voice and pain, Pupils are fixed and non responsive to light. pt has sacral wounds being examined by wound nurse divya. pt appears hypervolemic on exam, BLE edematous. ICU managing fluids, Na 118, Cl 88, hco3 17, BUN 35, Cr 1.6, Serum Osm 257 UA with 2+ protein 3+ blood. Urine looks concentrated suspect hypervolemia hyponatremia, reccomend diuretics and albumin 04/28/2025: patient seen and examined in the ICU. Pt opens eyes spontaneously. appears hypervolemic on exam with ELE and ELE with significant edema, ICU managing fluids, Na 120, K 3.7 Cl 88, CO2 17, BUN 42 from 35,Cr 1.8 from 1.6. suspect hypervolemic hyponatremia, reccomend trial of 40 IV lasix and IV albumin, bicitra, procrit epogen 10 000 04/29/2025: Patient examined at bedside in the ICU, remains bedbound on blood pressure support via trach. GCS 4T, patient is not following any commands at this time but does open eyes spontaneously. Hyponatremia improving slowly, will start salt tabs at this time and monitor sodium closely. Patient was given IV Lasix yesterday, with minimal improvement. He still appears significantly fluid overloaded, will give albumin for now. 04/30/2025: Patient seen and examined in the ICU, with trach, uop is minimal, german catheter was removed, straight cath q4h with bladder scans. L femoral catheter removed, Bcx pending, WBC elevated to 34, Na 122, BUN 46 from 31, Cr 2.2 from 2. query UTI, vs bacteremia. , HR 100s, BP normotensive. on exam pt has significant edema query whether pt is hypervolemic vs intravascularly down, recommend aldactone 50, given 1L LR per ICU. 05/01/2025: Patient seen and examined in the ICU, trach is midline wo crusting or oozing secretions minimal, straight cath q4 hr with 400 UOP, B cx GPC 1/2 tubes. WBC 31 from 34, pt appears volume overloaded on exam, lungs sounds difficult to appreciate given pt habitus, BUN 46, Cr 2.1 from 2.2. continues on vanc and zosyn. Plan for HD today with fluid removal. reccomend holding fluids today. BP 90s/40s. 05/02/2025 patient currently seen in telemetry. Moved out of ICU. Blood pressure still on the lower side. On midodrine. Hold dialysis today. Did receive 2 dialysis sessions. Yesterday his blood pressure dropped during dialysis. Labs/medications reviewed. No family around. 05/03/2025: Patient seen and examined in telemetry, continues on midodrine, mackay scattered ronchi bilaterally, eyes opening spontaneously, no hd today, BUN 22 from 28, Cr 1.5 from 1.6. rec Ltech for discharge, UPP 200 05/04/2025 Patient seen and examined in tele. His kidney function is improved, Cr 1.0 plan for egrman with strict i and o to monitor uop and assess for recovery of renal fxn. Nursing notified mds of c/f potential central line infection, biofilm with pus noted. Exam Vital Signs Temp Pulse Resp BP Pulse Ox O2 Del Method O2 Flow Rate 96.8 F 102 H 23 H 158/92 H 100 Mechanical Ventilation 30 05/04/25 07:40 05/04/25 07:40 05/04/25 07:40 05/04/25 07:40 05/04/25 07:40 05/04/25 07:40 05/03/25 22:13 FiO2 30 05/04/25 07:40 Narrative Exam General: No acute distress, comatose, opening eyes spontaneously. HEENT: Moist mucous membranes, oropharynx not assessed (contracted jaw) Neck: trach in place midline CVS: regular rate and rythm, +murmor , rubs or gallops Lungs: Mild rhonchi throughout the lung field, no wheezing, crackles or decreased breath sounds Abd: Soft, NT, slightly distended, +BS, +epigastric peg tube in place with no errythema crusting or drainage around tube. : wearing breifs Ext: diffuse edema of upper and 2+ pitting of the lower extrem, warm and well perfused, R femoral lines (c/o infection and very wet from urine in breif. Skin: Multiple stages of decubitus ulcers on buttoks and sacrum , L heel with 3cm bruise violacious Psych: comatose Objective Labs 05/08/25 06:18 05/07/25 06:41 Labs: Laboratory Results - last 24 hr 05/01/25 05/03/25 05/03/25 09:23 05:00 12:36 WBC RBC Hgb Hct MCV MCH MCHC RDW Std Deviation Plt Count Neut % (Auto) Lymph % (Auto) [place] % (Auto) Eos % (Auto) Baso % (Auto) Neut # (Auto) Lymph # (Auto) [place] # (Auto) Eos # (Auto) Baso # (Auto) Immature Gran # (Auto) Absolute Nucleated RBC Immature Gran % Nucleated RBC % Smear Path Review Cancelled Sodium Potassium Chloride Carbon Dioxide Anion Gap BUN Creatinine Estim Creat Clear Calc eGFR BUN/Creatinine Ratio Glucose Calculated Osmolality Lactic Acid 1.7 Calcium Corrected Calcium Phosphorus Magnesium Total Bilirubin AST ALT Alkaline Phosphatase Total Protein Albumin Globulin Albumin/Globulin Ratio HIV 1&2 Antibody Rapid Non-Reactive Blood Type O Positive Antibody Screen NEGATIVE Crossmatch See Detail Blood Bank Wristband ID Yes 05/04/25 05:00 WBC 23.0 H D RBC 3.61 L Hgb 8.9 L Hct 28.1 L MCV 78 L MCH 24.7 L MCHC 31.7 RDW Std Deviation 59.6 H Plt Count 284 Neut % (Auto) 76 Lymph % (Auto) 6 L [place] % (Auto) 5 Eos % (Auto) 6 Baso % (Auto) 1 Neut # (Auto) 17.4 H Lymph # (Auto) 1.5 [place] # (Auto) 1.2 H Eos # (Auto) 1.3 H Baso # (Auto) 0.2 Immature Gran # (Auto) 1.47 H Absolute Nucleated RBC 0.33 H Immature Gran % 6 H Nucleated RBC % 1 H Smear Path Review Sodium 136 Potassium 3.9 Chloride 97 L Carbon Dioxide 28.1 Anion Gap 11 BUN 30 H Creatinine 1.0 D Estim Creat Clear Calc 82.8 eGFR > 60 BUN/Creatinine Ratio 30 H Glucose 154 H Calculated Osmolality 281 Lactic Acid Calcium 9.5 Corrected Calcium 10.1 Phosphorus 2.9 Magnesium 1.8 Total Bilirubin 0.6 AST 20 ALT 11 Alkaline Phosphatase 135 H Total Protein 6.4 Albumin 3.3 L Globulin 3.1 Albumin/Globulin Ratio 1.1 L HIV 1&2 Antibody Rapid Blood Type Antibody Screen Crossmatch Blood Bank Wristband ID ABG Interpretation ABG results: 04/27/25 04/27/25 04/27/25 02:12 07:39 09:19 ABG pH 7.30 L 7.18 L* D 7.24 L ABG pCO2 41 53 H D 44 ABG pO2 99 98 110 H ABG HCO3 20 20 19 L ABG O2 Saturation 98 98 99 H ABG Base Excess -6 L -9 L -8 L 04/27/25 04/28/25 04/30/25 12:15 04:10 04:21 ABG pH 7.28 L 7.34 L 7.26 L ABG pCO2 39 36 46 D ABG pO2 135 H D 111 H D 66 L D ABG HCO3 18 L 19 L 20 ABG O2 Saturation 100 H 99 H 93 ABG Base Excess -8 L -6 L -6 L 04/30/25 05/01/25 16:15 04:07 ABG pH 7.31 L 7.30 L ABG pCO2 43 50 H ABG pO2 69 L 64 L ABG HCO3 22 25 ABG O2 Saturation 94 93 ABG Base Excess -4 L -2 Quality Measures Quality Measures VTE prophylaxis Advance care planning discussed with:: other Assessment & Plan Assessment Current Active Medications: Generic Name Dose Route Start Last Admin Trade Name Freq PRN Reason Stop Dose Admin Acetaminophen 650 mg 04/27/25 03:11 05/03/25 18:18 Acetaminophen 325 Mg Tablet PO 05/27/25 03:10 650 mg Q4HR PRN Administration PAIN SCALE 1-3 (mild Amlodipine Besylate 10 mg 05/04/25 09:00 Amlodipine Besylate 5 Mg Tablet GT 06/03/25 08:59 QDAY IMANI Aspirin 81 mg 04/27/25 09:00 05/03/25 09:25 Aspirin 81 Mg Chew GT 05/27/25 08:59 81 mg QDAY IMANI Administration Dextrose 25 ml 04/27/25 03:37 Dextrose 50%-Water Inj 50 Ml Syringe IV 05/27/25 03:36 Q15MIN PRN BG 50-70 responsive npo pt Dextrose 50 ml 04/27/25 03:37 Dextrose 50%-Water Inj 50 Ml Syringe IV 05/27/25 03:36 Q15MIN PRN BG <50 OR BG <70 & pt unresponsive Glucagon 1 mg 04/27/25 03:37 Glucagon Inj 1 Mg Vial IM Q15MIN PRN BG <70, and no IV access Heparin Sodium (Porcine) 5,000 unit 04/27/25 06:00 05/03/25 05:36 Heparin Sod Inj 5000 Unit/Ml Vial SC 05/11/25 05:59 Not Given Q8HR IMANI Heparin Sodium (Porcine) 3,000 unit 04/30/25 11:01 05/03/25 11:49 Heparin Sod Inj 1000 Unit/Ml Vial 10 Ml INDWELLCAT 05/14/25 11:00 3,000 unit PRN PRN Administration DIALYSIS Piperacillin/Tazobactam/Dextrose 3.375 gm in 50 mls @ 12.5 mls/hr 04/30/25 22:00 05/04/25 05:43 Zosyn IV 05/07/25 21:59 12.5 mls/hr Q8HR IMANI Administration Insulin Degludec 22 unit 05/01/25 21:00 05/03/25 20:29 Insulin Degludec 5 Unit/0.05 Ml (Per 5 Units) SC 05/31/25 20:59 22 unit HS IMANI Administration Insulin Human Lispro 0 unit 04/27/25 06:00 05/04/25 05:32 Insulin Lispro (Admelog) 1 Unit/0.01 Ml Unit SC 05/27/25 05:59 Not Given Q6HR [facility] Protocol Magnesium Hydroxide 30 ml 04/27/25 03:11 Milk Of Magnesia Susp 30 Ml Udc PO 05/27/25 03:10 QDAY PRN CONSTIPATION Metoclopramide HCl 5 mg 05/04/25 00:00 05/04/25 05:43 Metoclopramide Inj 5 Mg/Ml Vial 2 Ml IVP 06/03/25 00:00 5 mg Q6HR [facility] Administration Protocol Midodrine 10 mg 05/02/25 10:45 05/04/25 05:32 Midodrine 5 Mg Tablet PO 06/01/25 10:44 Not Given TID [facility] Mupirocin 0 gm 04/28/25 22:00 05/04/25 05:32 Mupirocin Oint 2% 15 Gm Tube TOP 05/05/25 21:59 1 applicatio TID [facility] Administration Plan Mr Sanchez is a 80-year-old gentleman with hx of CVA s/p trach/PEG tube, chronic hypoxic respiratory failure, MRSA pneumonia, Pseudomonas UTI, MRSA bacteremia, sacral ulcer, IDDM type II (poorl controlled A1c 10.5), hypertension, hyperlipidemia, vertebral osteomyelitis, hx of MARGARETTE requiring hemodialysis in the past, whose baseline mental status is GCS 5, admitted to ICU for septic shock 2/2 PNA vs UTI, requiring pressors and hyponatremia, with minimal UOP 280 ccs, trial lasix and albumin given suspicion of hypervolemic hyponatremia, now resolved. renal function may have recovered, strict i and o with german cath, fem line removed 2/2 c/f possible infection, no hd today MARGARETTE-improved nonnephrotic range proteinuria Likely prerenal secondary to sepsis, now resolved Presented with creatinine of 1.5, baseline creatinine about 0.7-0.8 Patient received 1 L of normal saline in the ED, given c/f worsening his hyponatremia, sepsis protocol resusitation was not initaited. given 1L LR in the ICU Urine Protein Cr ratio: 115: 53= 2.6 (nonnephrotic rage protienuria) - 05/01: Cr 2.1 from 2.2, BUN 45 from 46 (stable) BP 90s/40s, - 05/03: Cr 1.5 - 05/04: Cr 1.0 query recovery of renal function, will place german for 48 hrs to monitor uop Plan: - daily CMP, Mg, Phos - Renally dose medications - Avoid nephrotoxins - strict i and o - cont german for 48 hrs - no hd today Hypervolemic hyponatremia - hyponatremia resolved The patient presented with sodium of 117, now 136 Serum osm 257: hypernatremic, hypotonic, hypervolemic on exam: query CHF vs renal failure, vs cirrhosis vs nephrotic syndrome (UA with 2+ protein) - resolved with salt tabs and bicitra, Lactic acidosis 2/2 sepsis- resolved LA 2.5 ?> wnl other medical problems 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 Due to concern of overcorrection of hyponatremia, full 30 cc/kg body fluid was not given. Bcx with staph epi CTAP repeat, with bibasilar pna pt with ?infected central fem line, will be removed, reassured that wbc is downtrending Bilateral healthcare associated pneumonia Possible acute hypoxic respiratory failure 2/2 query aspiration pneumonia Severe UTI -on abx hypotension - on midodrine 5 mg TID sbp 150s - 160s Chronic respiratory failure 2/2 S/p CVA mech ventilation per trach tube, Transaminitis - resolved Diarrhea - cdiff negative Nutrition per peg tube Acute hgb drop- now stable Microcytic anemia - likely dilutional given decrease in other cell lines, - give procrit 10 000 - iron deficiency, iron studies low, retic count elevated. Non-anion gap metabolic acidosis Insulin-dependent diabetes mellitus type 2 - A1c 10.5 Multistage decubitus ulcer HTN HLD - managment per primary team Plan discussed with nephrology attending Dr. Camila Conner MD Internal Medicine PGY-1 Attending Provider Attestation/Addendum Patient seen and examined with resident physician Dr. Conner. Note reviewed, agree with findings and recommendations. Spoke to -- Patient basically bedbound with status post trach and PEG for the last 5 years. Medications and labs reviewed. 05/04/2025 Clinically patient looks edematous-patient was given diuretics, IV fluids- ATN most likely- Creatinine markedly improved. Remove the Vas-Cath. Patient seems to have renal recovery. Hold off on dialysis. Recommended as needed diuretics. White count still elevated. Suspected pneumonia vs decubiti---on antibiotics.
[2025-05-04] MEDS: ASPIRIN 81 MG CHEW GT (08:37)
--- NOTE | 2025-05-04 10:08 | ESPR_ITS ---
<Statement entered by Pura Edwards MD - 05/04/25 14:34> I have reviewed the note and agree with the resident's assessment & plan with exceptions as below. I have personally reviewed labs, imaging, home meds/prior records, examined the patient, formulated and discussed management plan with the IM team. Patient examined at bedside today. Overnight, central line appeared to be having some drainage. Patient's creatinine continues to improve, will insert Abbott catheter and measure urine output as renal function seems to be improving and ATN seems to be resolving. At this time we will remove central line as long as we can get peripheral access. Once we have additional venous access we will remove both the line as we will not continue hemodialysis for the weekend. Will continue to measure I's and O's. Nephrology on consult, appreciate recommendations. Patient to get replacement G-tube placement at some point throughout the admission as GI is on consult, appreciate recommendations. Care on consult, appreciate recommendations Pura Edwards, PGY-2 Internal Medicine Documentation for date of: 05/04/25 Subjective Subjective Interval history: Overnight patient's telemetry was unremarkable; femoral line reported to have pus around it overnight, looked unremarkable this morning; wound care was reconsulted overnight too; also Patient seen and examined at bedside on the floors. Vitals this morning notable for BP 158/92, 102 hr, sating well on FIO2 30%. Patient urine output noted 200 ml. Exam Vital Signs Temp Pulse Resp BP Pulse Ox O2 Del Method O2 Flow Rate 96.8 F 102 H 23 H 158/92 H 100 Mechanical Ventilation 30 05/04/25 07:40 05/04/25 08:37 05/04/25 07:40 05/04/25 08:37 05/04/25 07:40 05/04/25 07:40 05/03/25 22:13 FiO2 30 05/04/25 08:00 Narrative Exam General: At his baseline. Spontaneously opening and blinking. HEENT: Normocephalic, atraumatic, mucous membranes moist. PEG/Trach in place Heart: Regular rate and rhythm, no murmurs. Lungs: Clear to auscultation with no wheezing or crackles. Abdomen: Hard, distended.?No guarding or rebound tenderness. Neurologic: At his baseline. Spontaneously opening and blinking to give response. Extremities: noted Anasarca Skin: No rash or ecchymoses. noted to have decubitus ulcers Objective Labs 05/04/25 05:00 05/05/25 06:50 Labs: Laboratory Results - last 24 hr 05/01/25 05/03/25 05/03/25 09:23 05:00 12:36 WBC RBC Hgb Hct MCV MCH MCHC RDW Std Deviation Plt Count Neut % (Auto) Lymph % (Auto) [place] % (Auto) Eos % (Auto) Baso % (Auto) Neut # (Auto) Lymph # (Auto) [place] # (Auto) Eos # (Auto) Baso # (Auto) Immature Gran # (Auto) Absolute Nucleated RBC Immature Gran % Nucleated RBC % Smear Path Review Cancelled Sodium Potassium Chloride Carbon Dioxide Anion Gap BUN Creatinine Estim Creat Clear Calc eGFR BUN/Creatinine Ratio Glucose Calculated Osmolality Lactic Acid 1.7 Calcium Corrected Calcium Phosphorus Magnesium Total Bilirubin AST ALT Alkaline Phosphatase Total Protein Albumin Globulin Albumin/Globulin Ratio HIV 1&2 Antibody Rapid Non-Reactive Crossmatch See Detail 05/04/25 05:00 WBC 23.0 H D RBC 3.61 L Hgb 8.9 L Hct 28.1 L MCV 78 L MCH 24.7 L MCHC 31.7 RDW Std Deviation 59.6 H Plt Count 284 Neut % (Auto) 76 Lymph % (Auto) 6 L [place] % (Auto) 5 Eos % (Auto) 6 Baso % (Auto) 1 Neut # (Auto) 17.4 H Lymph # (Auto) 1.5 [place] # (Auto) 1.2 H Eos # (Auto) 1.3 H Baso # (Auto) 0.2 Immature Gran # (Auto) 1.47 H Absolute Nucleated RBC 0.33 H Immature Gran % 6 H Nucleated RBC % 1 H Smear Path Review Sodium 136 Potassium 3.9 Chloride 97 L Carbon Dioxide 28.1 Anion Gap 11 BUN 30 H Creatinine 1.0 D Estim Creat Clear Calc 82.8 eGFR > 60 BUN/Creatinine Ratio 30 H Glucose 154 H Calculated Osmolality 281 Lactic Acid Calcium 9.5 Corrected Calcium 10.1 Phosphorus 2.9 Magnesium 1.8 Total Bilirubin 0.6 AST 20 ALT 11 Alkaline Phosphatase 135 H Total Protein 6.4 Albumin 3.3 L Globulin 3.1 Albumin/Globulin Ratio 1.1 L HIV 1&2 Antibody Rapid Crossmatch ABG Interpretation ABG results: 04/27/25 04/27/25 04/27/25 02:12 07:39 09:19 ABG pH 7.30 L 7.18 L* D 7.24 L ABG pCO2 41 53 H D 44 ABG pO2 99 98 110 H ABG HCO3 20 20 19 L ABG O2 Saturation 98 98 99 H ABG Base Excess -6 L -9 L -8 L 04/27/25 04/28/25 04/30/25 12:15 04:10 04:21 ABG pH 7.28 L 7.34 L 7.26 L ABG pCO2 39 36 46 D ABG pO2 135 H D 111 H D 66 L D ABG HCO3 18 L 19 L 20 ABG O2 Saturation 100 H 99 H 93 ABG Base Excess -8 L -6 L -6 L 04/30/25 05/01/25 16:15 04:07 ABG pH 7.31 L 7.30 L ABG pCO2 43 50 H ABG pO2 69 L 64 L ABG HCO3 22 25 ABG O2 Saturation 94 93 ABG Base Excess -4 L -2 Quality Measures Quality Measures VTE prophylaxis Advance care planning discussed with:: patient and other Assessment & Plan Assessment Current Active Medications: Generic Name Dose Route Start Last Admin Trade Name Freq PRN Reason Stop Dose Admin Acetaminophen 650 mg 04/27/25 03:11 05/03/25 18:18 Acetaminophen 325 Mg Tablet PO 05/27/25 03:10 650 mg Q4HR PRN Administration PAIN SCALE 1-3 (mild Amlodipine Besylate 10 mg 05/04/25 09:00 05/04/25 08:37 Amlodipine Besylate 5 Mg Tablet GT 06/03/25 08:59 10 mg QDAY IMANI Administration Aspirin 81 mg 04/27/25 09:00 05/04/25 08:37 Aspirin 81 Mg Chew GT 05/27/25 08:59 81 mg QDAY IMANI Administration Dextrose 25 ml 04/27/25 03:37 Dextrose 50%-Water Inj 50 Ml Syringe IV 05/27/25 03:36 Q15MIN PRN BG 50-70 responsive npo pt Dextrose 50 ml 04/27/25 03:37 Dextrose 50%-Water Inj 50 Ml Syringe IV 05/27/25 03:36 Q15MIN PRN BG <50 OR BG <70 & pt unresponsive Glucagon 1 mg 04/27/25 03:37 Glucagon Inj 1 Mg Vial IM Q15MIN PRN BG <70, and no IV access Heparin Sodium (Porcine) 5,000 unit 04/27/25 06:00 05/03/25 05:36 Heparin Sod Inj 5000 Unit/Ml Vial SC 05/11/25 05:59 Not Given Q8HR IMANI Heparin Sodium (Porcine) 3,000 unit 04/30/25 11:01 05/03/25 11:49 Heparin Sod Inj 1000 Unit/Ml Vial 10 Ml INDWELLCAT 05/14/25 11:00 3,000 unit PRN PRN Administration DIALYSIS Piperacillin/Tazobactam/Dextrose 3.375 gm in 50 mls @ 12.5 mls/hr 04/30/25 22:00 05/04/25 05:43 Zosyn IV 05/07/25 21:59 12.5 mls/hr Q8HR IMANI Administration Insulin Degludec 22 unit 05/01/25 21:00 05/03/25 20:29 Insulin Degludec 5 Unit/0.05 Ml (Per 5 Units) SC 05/31/25 20:59 22 unit HS [facility] Administration Insulin Human Lispro 0 unit 04/27/25 06:00 05/04/25 05:32 Insulin Lispro (Admelog) 1 Unit/0.01 Ml Unit SC 05/27/25 05:59 Not Given Q6HR [facility] Protocol Magnesium Hydroxide 30 ml 04/27/25 03:11 Milk Of Magnesia Susp 30 Ml Udc PO 05/27/25 03:10 QDAY PRN CONSTIPATION Metoclopramide HCl 5 mg 05/04/25 00:00 05/04/25 05:43 Metoclopramide Inj 5 Mg/Ml Vial 2 Ml IVP 06/03/25 00:00 5 mg Q6HR [facility] Administration Protocol Midodrine 10 mg 05/02/25 10:45 05/04/25 05:32 Midodrine 5 Mg Tablet PO 06/01/25 10:44 Not Given TID [facility] Mupirocin 0 gm 04/28/25 22:00 05/04/25 05:32 Mupirocin Oint 2% 15 Gm Tube TOP 05/05/25 21:59 1 applicatio TID [facility] Administration Plan Kwadwo Sanchez is a 80-year-old male with significant past medical history of CVA s/p trach/PEG tube, chronic hypoxic respiratory failure, MRSA pneumonia, Pseudomonas UTI, MRSA bacteremia, sacral ulcer, IDDM type II, hypertension, hyperlipidemia, vertebral osteomyelitis, acute pancreatitis, calculus cholelithiasis, MARGARETTE requiring hemodialysis in the past, and decubitus ulcers brought in by [facility] care by the [facility] [place] with chief complaint of fever for past 2 days. Patient was admitted to ICU for further management of septic shock secondary to pneumonia and UTI; Downgraded from ICU no longer needing pressors; continuing to manage unresolved sepsis. #Sepsis 2/2 #Healthcare associated pneumonia Vs Severe UTI #S/p chronic tracheostomy #Leukocytosis Patient presented with fever, tachycardia, white count of 28 and RR 29, lactic acid 2.2, and requiring pressure support. The patient only received 1 L of normal saline initially (fluid overloaded). Chest x-ray revealed bilateral pneumonia, UA revealed 3+ blood, 1.8k RBC's, 1.9k WBC's. Blood cultures no growth. CT A/P 05/02 along with residuals from PEG tube makes aspiration pneumonia another ddx. - GI will place PEG tube with gastric/jejunostomy port when it arrives. - Continuing zosyn. - Midodrine 10mg TID as needed if MAP < 65 and SBP <100 #MARGARETTE, improving Likely prerenal leading to ATN secondary to sepsis Presented with creatinine of 1.5, baseline creatinine about 0.7-0.8 Patient appears to produce low urine output as of now - Vessel Captain, Dr. Jensen is consulted, HD 04/30, 05/01, 05/03 via R femoral line. - Will need Out Patient HD - Monitor renal panel, renally dose medications and avoid nephrotoxins #Hyponatremia, resolving Possibly due to renal failure, CHF, cirrhosis The patient presented with sodium of 117, but corrected sodium was 123 --> 05/01, 126 - Will continue to monitor sodium levels - Vessel Captain, Dr. Jensen is consulted, appreciate recommendations. #Right heart failure and moderate pulmonary hypertension Patient appears to have anasarca, also noted to have mild hypoalbuminemia Echo on 04/27 - showed right ventricular volume/pressure overload, mild to moderate TR, RVSP elevated at 40 to 45 mmHg. EF is 55 to 60% - Will require cardiac catheterization after discharge to categorize pulmonary hypertension and needs treatment accordingly. #Hypertension, well controlled - Using Amlodipine 10mg every day and will Hold medications for now. #Insulin-dependent diabetes mellitus type 2 - Started on insulin degludec 13 units daily at night, increased to 18 units, adjusted to 22 units as of 05/01 based on blood sugars on morning labs - Sliding scale insulin lispro every 6 hourly with fingerstick blood sugar checks - A1c ordered - 10.5 #Microcytic anemia Likely 2/2 anemia of chronic disease, but could not rule out other differentials like nutritional deficiency - Iron panel, ferritin, folic acid, vitamin B12, reticulocyte count, peripheral smear and LDH ordered - showed iron deficiency - Will supplement iron once the infection is resolved - Daily a.m. 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 De La Fuente & resident physician Dr. Grace Méndez MD PGY-1 Attending Provider Attestation/Addendum I reviewed labs, imaging, EKG, home medications and prior available records. Face to face evaluation was performed by me. I have personally examined the patient and discussed assessment and plan with the IM team. I reviewed the resident note and agree with the plan with exceptions as below. Chronic hypoxic respiratory failure CVA status post trach and PEG Septic shock, secondary to urinary versus pulmonary source Hyponatremia MARGARETTE Type 2 diabetes mellitus He is off pressors Continue Zosyn for 7 days per ID recommendations Ordered CT of the chest, abdomen, and pelvis that showed bibasilar pneumonia with possible aspiration pneumonia. Possible SBO. Ordered CT Gastrografin study Consulted GI: Recommended exchange of the PEG tube Trend WBC: Downtrending Continue aspirin He is off hemodialysis. Removed Vas-Cath Monitor kidney function. Outpatient follow-up with nephrology Monitor sodium level Held subcutaneous heparin secondary to thigh hematoma
[2025-05-04] MEDS: ACETAMINOPHEN 325 MG TABLET 650 MG PO (11:29)
[2025-05-04] MEDS: INSULIN LISPRO (AdmeLOG) 1 UNIT/0.01 ML UNIT SC ×3 (12:39→23:57)
--- NOTE | 2025-05-04 14:52 | PC.SS ---
Rounding: Pt will NOT need outpt HD, line to be removed. Pt pending Peg with Dr. Conner.
--- NOTE | 2025-05-04 16:56 | ESPR_ITS ---
Documentation for date of: 05/04/25 Subjective Subjective Interval history: Check the PEG tube it is working very well Exam Vital Signs Temp Pulse Resp BP Pulse Ox O2 Del Method O2 Flow Rate 97.5 F 93 22 H 130/80 99 Mechanical Ventilation 30 05/04/25 12:00 05/04/25 15:59 05/04/25 12:00 05/04/25 15:59 05/04/25 12:00 05/04/25 12:00 05/03/25 22:13 FiO2 30 05/04/25 12:00 Objective Labs 05/04/25 05:00 05/04/25 05:00 Labs: Laboratory Results - last 24 hr 05/01/25 05/04/25 09:23 05:00 WBC 23.0 H D RBC 3.61 L Hgb 8.9 L Hct 28.1 L MCV 78 L MCH 24.7 L MCHC 31.7 RDW Std Deviation 59.6 H Plt Count 284 Neut % (Auto) 76 Lymph % (Auto) 6 L [place] % (Auto) 5 Eos % (Auto) 6 Baso % (Auto) 1 Neut # (Auto) 17.4 H Lymph # (Auto) 1.5 [place] # (Auto) 1.2 H Eos # (Auto) 1.3 H Baso # (Auto) 0.2 Immature Gran # (Auto) 1.47 H Absolute Nucleated RBC 0.33 H Immature Gran % 6 H Nucleated RBC % 1 H Sodium 136 Potassium 3.9 Chloride 97 L Carbon Dioxide 28.1 Anion Gap 11 BUN 30 H Creatinine 1.0 D Estim Creat Clear Calc 82.8 eGFR > 60 BUN/Creatinine Ratio 30 H Glucose 154 H Calculated Osmolality 281 Calcium 9.5 Corrected Calcium 10.1 Phosphorus 2.9 Magnesium 1.8 Total Bilirubin 0.6 AST 20 ALT 11 Alkaline Phosphatase 135 H Total Protein 6.4 Albumin 3.3 L Globulin 3.1 Albumin/Globulin Ratio 1.1 L Crossmatch See Detail Impressions Impression: Failure to thrive functioning PEG tube Continue to monitor I am in the process of ordering a gastrostomy jejunostomy tube and once it arrives either in the SNF or here we will put the tube in ABG Interpretation ABG results: 04/27/25 04/27/25 04/27/25 02:12 07:39 09:19 ABG pH 7.30 L 7.18 L* D 7.24 L ABG pCO2 41 53 H D 44 ABG pO2 99 98 110 H ABG HCO3 20 20 19 L ABG O2 Saturation 98 98 99 H ABG Base Excess -6 L -9 L -8 L 04/27/25 04/28/25 04/30/25 12:15 04:10 04:21 ABG pH 7.28 L 7.34 L 7.26 L ABG pCO2 39 36 46 D ABG pO2 135 H D 111 H D 66 L D ABG HCO3 18 L 19 L 20 ABG O2 Saturation 100 H 99 H 93 ABG Base Excess -8 L -6 L -6 L 04/30/25 05/01/25 16:15 04:07 ABG pH 7.31 L 7.30 L ABG pCO2 43 50 H ABG pO2 69 L 64 L ABG HCO3 22 25 ABG O2 Saturation 94 93 ABG Base Excess -4 L -2 Assessment & Plan A&P Narrative Malfunctioning PEG tube with no gastric residual issues at the moment Reglan 5 mg IV push every 6 hours Will order a tube with the gastric port and the jejunostomy port and when it arrives I will replace his tube either here or in the SNF The gastrostomy port can be used for meds and the jejunostomy port can be used for feeding the patient Thank you very much for the opportunity to participate in care of this patient Time Spent With Patient Time: Total time spent is greater than 50% in coordination of care (as documented) at patient's floor/unit and/or counseling patient:
[2025-05-04] MEDS: INSULIN DEGLUDEC 5 UNIT/0.05 ML (PER 5 UNITS) 22 UNIT SC (20:46)
[2025-05-05] VITALS (18 sets, daily range): BP systolic 139–156; BP diastolic 75–98; PULSE 89–98; RESP 14–24; TEMP 36.3–37.2; O2SAT 91–99
[2025-05-05] MEDS: METOCLOPRAMIDE INJ 5 MG/ML VIAL 2 ML IVP ×4 (05:23→23:16)
[2025-05-05] MEDS: PIPER/TAZO 3.375 GM PREMIX 3.375 GM/50 ML BAG IV ×3 (05:24→21:03)
[2025-05-05] MEDS: MUPIROCIN OINT 2% 15 GM TUBE TOP ×2 (05:25→13:21)
--- NOTE | 2025-05-05 07:32 | PD.RESPRO ---
Documentation for date of: 05/05/25 Subjective Subjective Interval history: Mr Sanchez is a 80-year-old male with significant past medical history of CVA s/p trach/PEG tube, chronic hypoxic respiratory failure, MRSA pneumonia, Pseudomonas UTI, MRSA bacteremia, sacral ulcer, IDDM type II, hypertension, hyperlipidemia, vertebral osteomyelitis, acute pancreatitis, calculus cholelithiasis, MARGARETTE requiring hemodialysis in the past, and decubitus ulcers brought in by [facility] by the [facility] [place] with chief complaint of fever for past 2 days. As per nursing facility staff, the patient is nonverbal at baseline with GCS score is 5, and they provided a note to rule out sepsis. The at bedside is a poor historian, and believe that the patient still interacts with her. Initially in the ED her vitals were BP 128/58, pulse 123, RR 29, temperature 100.9, saturating 100% on 40 L FiO2 via tracheostomy tube. Labs are significant for white count of 28.6, hemoglobin 8.2, MCV 74, platelet 368, ESR 102, D-dimer greater than 3820, ABG revealed pH 7.30, pCO2 41, sodium 117 with corrected sodium for hyperglycemia is 123, potassium 4.1, chloride 87, bicarb 19.9, anion gap 10, BUN/creatinine 36/1.5, GFR 47, blood sugar 299, lactic acid 2.2, magnesium 2.0, T. bili 1.8, direct bilirubin 1.4, AST/ALT/ALP 71/47/229, troponin less than 0.020, CRP greater than 10.0, BNP 138, albumin 3.2, Pro-Tevin 2.28, UA revealed dark yellow urine, turbid, 2+ protein, 3+ blood, leukocyte esterase positive, RBC 1847, WBC 1892, urine bacteria none. Chest x-ray revealed extensive bilateral pneumonia. PMH: As mentioned above SHX: Positive abdominal surgery, tracheostomy, gastrostomy and knee joint replacement Family history: Unobtainable Social history: He is , often comes to visit, others unobtainable Medications: To be reconciled Allergies: NYLA inhibitors, upper airway edema, ARB's for airway edema The patient was given 1 L of bolus normal saline in the ED, vancomycin and cefepime IV x 1, and he is MAP dropped down to less than 65, and was started on Levophed. The patient was admitted to ICU for further management of septic shock secondary to pneumonia and UTI. 04/27/2025: pt admitted to ICU, Nephrology consulted patient seen and examined in ICU pt on pressors, pt is unresponsive to voice and pain, Pupils are fixed and non responsive to light. pt has sacral wounds being examined by wound nurse divya. pt appears hypervolemic on exam, BLE edematous. ICU managing fluids, Na 118, Cl 88, hco3 17, BUN 35, Cr 1.6, Serum Osm 257 UA with 2+ protein 3+ blood. Urine looks concentrated suspect hypervolemia hyponatremia, reccomend diuretics and albumin 04/28/2025: patient seen and examined in the ICU. Pt opens eyes spontaneously. appears hypervolemic on exam with ELE and ELE with significant edema, ICU managing fluids, Na 120, K 3.7 Cl 88, CO2 17, BUN 42 from 35,Cr 1.8 from 1.6. suspect hypervolemic hyponatremia, reccomend trial of 40 IV lasix and IV albumin, bicitra, procrit epogen 10 000 04/29/2025: Patient examined at bedside in the ICU, remains bedbound on blood pressure support via trach. GCS 4T, patient is not following any commands at this time but does open eyes spontaneously. Hyponatremia improving slowly, will start salt tabs at this time and monitor sodium closely. Patient was given IV Lasix yesterday, with minimal improvement. He still appears significantly fluid overloaded, will give albumin for now. 04/30/2025: Patient seen and examined in the ICU, with trach, uop is minimal, german catheter was removed, straight cath q4h with bladder scans. L femoral catheter removed, Bcx pending, WBC elevated to 34, Na 122, BUN 46 from 31, Cr 2.2 from 2. query UTI, vs bacteremia. , HR 100s, BP normotensive. on exam pt has significant edema query whether pt is hypervolemic vs intravascularly down, recommend aldactone 50, given 1L LR per ICU. 05/01/2025: Patient seen and examined in the ICU, trach is midline wo crusting or oozing secretions minimal, straight cath q4 hr with 400 UOP, B cx GPC 1/2 tubes. WBC 31 from 34, pt appears volume overloaded on exam, lungs sounds difficult to appreciate given pt habitus, BUN 46, Cr 2.1 from 2.2. continues on vanc and zosyn. Plan for HD today with fluid removal. reccomend holding fluids today. BP 90s/40s. 05/02/2025 patient currently seen in telemetry. Moved out of ICU. Blood pressure still on the lower side. On midodrine. Hold dialysis today. Did receive 2 dialysis sessions. Yesterday his blood pressure dropped during dialysis. Labs/medications reviewed. No family around. 05/03/2025: Patient seen and examined in telemetry, continues on midodrine, mackay scattered ronchi bilaterally, eyes opening spontaneously, no hd today, BUN 22 from 28, Cr 1.5 from 1.6. rec Ltech for discharge, UPP 200 05/04/2025 Patient seen and examined in tele. His kidney function is improved, Cr 1.0 plan for german with strict i and o to monitor uop and assess for recovery of renal fxn. Nursing notified mds of c/f potential central line infection, biofilm with pus noted. 05/05/2025: Patient seen and examined in tele. measured UOP is 1200, Cr 0.9, renal function is recovering, fem central line was removed yesterday. On exam today his mucus membranes are dry, given IVF per primary team. CTM urine output and renal function. holding HD given suspected renal recovery. leukocytosis is downtrending, german bag with slighly blood tinged urine. Exam Vital Signs Temp Pulse Resp BP Pulse Ox O2 Del Method O2 Flow Rate 97.5 F 96 14 146/98 H 97 Mechanical Ventilation 05/05/25 03:39 05/05/25 05:25 05/05/25 03:39 05/05/25 05:25 05/05/25 03:39 05/05/25 00:00 05/03/25 22:13 FiO2 30 05/05/25 04:00 Narrative Exam General: No acute distress, comatose, opening eyes spontaneously. HEENT: dry mucous membranes, oropharynx not assessed (contracted jaw) Neck: trach in place midline CVS: regular rate and rythm, +murmor , rubs or gallops Lungs: Mild rhonchi throughout the lung field, no wheezing, crackles or decreased breath sounds Abd: Soft, NT, slightly distended, +BS, +epigastric peg tube in place with no errythema crusting or drainage around tube. : german in place, draining well Ext: diffuse edema of upper and 2+ pitting of the lower extrem, warm and well perfused,s/p removal of fem cath Skin: Multiple stages of decubitus ulcers on buttoks and sacrum , L heel with 3cm bruise violacious, skin on dorsum of foot with increased skin pealing, very dry Psych: comatose Objective Labs 05/08/25 06:18 05/07/25 06:41 ABG Interpretation ABG results: 04/27/25 04/27/25 04/27/25 02:12 07:39 09:19 ABG pH 7.30 L 7.18 L* D 7.24 L ABG pCO2 41 53 H D 44 ABG pO2 99 98 110 H ABG HCO3 20 20 19 L ABG O2 Saturation 98 98 99 H ABG Base Excess -6 L -9 L -8 L 04/27/25 04/28/25 04/30/25 12:15 04:10 04:21 ABG pH 7.28 L 7.34 L 7.26 L ABG pCO2 39 36 46 D ABG pO2 135 H D 111 H D 66 L D ABG HCO3 18 L 19 L 20 ABG O2 Saturation 100 H 99 H 93 ABG Base Excess -8 L -6 L -6 L 04/30/25 05/01/25 16:15 04:07 ABG pH 7.31 L 7.30 L ABG pCO2 43 50 H ABG pO2 69 L 64 L ABG HCO3 22 25 ABG O2 Saturation 94 93 ABG Base Excess -4 L -2 Quality Measures Quality Measures VTE prophylaxis Advance care planning discussed with:: patient Assessment & Plan Assessment Current Active Medications: Generic Name Dose Route Start Last Admin Trade Name Freq PRN Reason Stop Dose Admin Acetaminophen 650 mg 04/27/25 03:11 05/04/25 11:29 Acetaminophen 325 Mg Tablet PO 05/27/25 03:10 650 mg Q4HR PRN Administration PAIN SCALE 1-3 (mild Amlodipine Besylate 10 mg 05/04/25 09:00 05/04/25 08:37 Amlodipine Besylate 5 Mg Tablet GT 06/03/25 08:59 10 mg QDAY IMANI Administration Aspirin 81 mg 04/27/25 09:00 05/04/25 08:37 Aspirin 81 Mg Chew GT 05/27/25 08:59 81 mg QDAY IMANI Administration Dextrose 25 ml 04/27/25 03:37 Dextrose 50%-Water Inj 50 Ml Syringe IV 05/27/25 03:36 Q15MIN PRN BG 50-70 responsive npo pt Dextrose 50 ml 04/27/25 03:37 Dextrose 50%-Water Inj 50 Ml Syringe IV 05/27/25 03:36 Q15MIN PRN BG <50 OR BG <70 & pt unresponsive Glucagon 1 mg 04/27/25 03:37 Glucagon Inj 1 Mg Vial IM Q15MIN PRN BG <70, and no IV access Heparin Sodium (Porcine) 5,000 unit 04/27/25 06:00 05/03/25 05:36 Heparin Sod Inj 5000 Unit/Ml Vial SC 05/11/25 05:59 Not Given Q8HR [facility] Heparin Sodium (Porcine) 3,000 unit 04/30/25 11:01 05/03/25 11:49 Heparin Sod Inj 1000 Unit/Ml Vial 10 Ml INDWELLCAT 05/14/25 11:00 3,000 unit PRN PRN Administration DIALYSIS Piperacillin/Tazobactam/Dextrose 3.375 gm in 50 mls @ 12.5 mls/hr 04/30/25 22:00 05/05/25 05:24 Zosyn IV 05/07/25 21:59 12.5 mls/hr Q8HR IMANI Administration Insulin Degludec 22 unit 05/01/25 21:00 05/04/25 20:46 Insulin Degludec 5 Unit/0.05 Ml (Per 5 Units) SC 05/31/25 20:59 22 unit HS IMANI Administration Insulin Human Lispro 0 unit 04/27/25 06:00 05/05/25 05:29 Insulin Lispro (Admelog) 1 Unit/0.01 Ml Unit SC 05/27/25 05:59 Not Given Q6HR [facility] Protocol Magnesium Hydroxide 30 ml 04/27/25 03:11 Milk Of Magnesia Susp 30 Ml Udc PO 05/27/25 03:10 QDAY PRN CONSTIPATION Metoclopramide HCl 5 mg 05/04/25 00:00 05/05/25 05:23 Metoclopramide Inj 5 Mg/Ml Vial 2 Ml IVP 06/03/25 00:00 5 mg Q6HR IMANI Administration Protocol Midodrine 10 mg 05/02/25 10:45 05/05/25 05:25 Midodrine 5 Mg Tablet PO 06/01/25 10:44 Not Given TID IMANI Mupirocin 0 gm 04/28/25 22:00 05/05/25 05:25 Mupirocin Oint 2% 15 Gm Tube TOP 05/05/25 21:59 1 applicatio TID IMANI Administration Plan Mr Sanchez is a 80-year-old gentleman with hx of CVA s/p trach/PEG tube, chronic hypoxic respiratory failure, MRSA pneumonia, Pseudomonas UTI, MRSA bacteremia, sacral ulcer, IDDM type II (poorl controlled A1c 10.5), hypertension, hyperlipidemia, vertebral osteomyelitis, hx of MARGARETTE requiring hemodialysis in the past, whose baseline mental status is GCS 5, admitted to ICU for septic shock 2/2 PNA vs UTI, requiring pressors and hyponatremia, with minimal UOP 280 ccs, trial lasix and albumin given suspicion of hypervolemic hyponatremia, now resolved. renal function may have recovered, strict i and o with german cath, fem line removed 2/2 c/f possible infection, holding hd given pt has improved renal function MARGARETTE-resolved? Cr 1.5-->0.9 nonnephrotic range proteinuria Likely prerenal secondary to sepsis, now resolved Presented with creatinine of 1.5, baseline creatinine about 0.7-0.8 Patient received 1 L of normal saline in the ED, given c/f worsening his hyponatremia, sepsis protocol resusitation was not initaited. 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 Due to concern of overcorrection of hyponatremia, full 30 cc/kg body fluid was not given. Bcx with staph epi CTAP repeat, with bibasilar pna pt with ?infected central fem line, was removed, reassured that wbc is downtrending Bilateral healthcare associated pneumonia Possible acute hypoxic respiratory failure 2/2 query aspiration pneumonia Severe UTI -on abx hypotension - on midodrine 5 mg TID sbp 150s - 160s Chronic respiratory failure 2/2 S/p CVA mech ventilation per trach tube, Nutrition per peg tube Microcytic anemia - likely dilutional given decrease in other cell lines, - give procrit 10 000 - iron deficiency, iron studies low, retic count elevated. Non-anion gap metabolic acidosis Insulin-dependent diabetes mellitus type 2 - A1c 10.5 Multistage decubitus ulcer HTN HLD - managment per primary team Plan discussed with nephrology attending Dr. Camila Conner MD Internal Medicine PGY-1 Attending Provider Attestation/Addendum Patient seen and examined with resident physician Dr. Conner. Note reviewed, agree with findings and recommendations. Spoke to -- Patient basically bedbound with status post trach and PEG for the last 5 years. Medications and labs reviewed. 05/05/2025 Clinically patient looks edematous-patient was given diuretics, IV fluids- ATN most likely- Creatinine markedly improved. Remove the Vas-Cath. Patient seems to have renal recovery. Hold off on dialysis. Recommended as needed diuretics. White count still elevated. Suspected pneumonia vs decubiti---on antibiotics. Prognosis remains guarded. requesting for him to go to the [place]. She did not want [facility].
[2025-05-05 07:43] LABS: Alanine Aminotransferase 12 U/L (10-49); Albumin, Serum 3.1 gm/dL (3.4-4.8); Albumin/Globulin Ratio 0.9 (1.2-2.2); Alkaline Phosphatase 119 U/L (46-116); Anion Gap 10 (7-16); Aspartate Amino Transferase 20 U/L (0-34); BUN/Creatinine Ratio 37 Ratio (12-20); Bilirubin,Total 0.5 mg/dL (0.3-1.2); Blood Urea Nitrogen 33 mg/dL (9-23); Calcium 9.6 mg/dL (8.3-10.6); Calcium (Corrected) 10.3 mg/dL (8.5-10.1); Carbon Dioxide 30.0 mMol/L (20.0-31.0); Chloride 98 mMol/L (98-107); Creatinine (Component) 0.9 mg/dL (0.6-1.3); Estimated Creatinine Clearance 92.4 mL/min (>60); Globulin 3.3 gm/dL (2.3-3.5); Glucose 168 mg/dL (74-106); Magnesium 1.5 mg/dL (1.6-2.6); Osmolality,Calculated 286 (275-295); Phosphorous 4.0 mg/dL (2.4-5.1); Potassium 4.2 mMol/L (3.4-5.1); Sodium 138 mMol/L (136-145); Total Protein 6.4 gm/dL (5.7-8.2); eGFR > 60 See Note
[2025-05-05 07:56] LABS: Basophils # (Auto) 0.1 Thou/mm3 (0.0-0.2); Basophils % (Auto) 0 % (0-2.5); Eosinophils # (Auto) 0.7 Thou/mm3 (0.0-0.5); Eosinophils % (Auto) 4 % (0-10); Hematocrit 25.9 % (41.0-53.0); Immature Granulocytes Auto 0.71 Thou/mm3 (0.00-0.00); Lymphocytes # (Auto) 1.6 Thou/mm3 (1.0-4.8); Lymphocytes % (Auto) 9 % (10-50); Mean Corpuscular HGB Conc 32.4 g/dl (31.0-37.0); Mean Corpuscular Hemoglobin 25.2 pg (25.0-35.0); Mean Corpuscular Volume 78 fL (80-100); Monocytes # (Auto) 1.0 Thou/mm3 (0.0-0.8); Monocytes % (Auto) 6 % (0-12); Neutrophils # (Auto) 14.2 Thou/mm3 (1.8-7.7); Neutrophils % (Auto) 78 % (37-80); Nucleated Red Blood Cell # 0.08 Thou/mm3 (0.00-0.00); Nucleated Red Blood Cell % 0 /100 WBC (0); Platelet Count 263 Thou/mm3 (140-440); RDW Standard Deviation 59.0 fL (35.1-43.9); Red Blood Count 3.33 Miln/mm3 (4.50-5.90); White Blood Count 18.2 Thou/mm3 (3.8-10.6)
[2025-05-05] MEDS: ASPIRIN 81 MG CHEW GT (08:22)
[2025-05-05] MEDS: SODIUM CHLORIDE 0.9% 500 ML 500 ML 999 ML IV (08:23)
[2025-05-05 08:29] LABS: Hemoglobin 8.4 g/dL (13.5-16.0)
--- NOTE | 2025-05-05 11:28 | ESPR_ITS ---
<Statement entered by Pura Edwards MD - 05/05/25 12:15> I have reviewed the note and agree with the resident's assessment & plan with exceptions as below. I have personally reviewed labs, imaging, home meds/prior records, examined the patient, formulated and discussed management plan with the IM team. Patient appears to be somewhat dry, BUN increasing, creatinine continues to downtrend. Will give patient bolus fluid at this time. Nephrology on consult, appreciate recommendations. GI on consult, waiting to replace G-tube and J- tube. Repeat hematology and chemistry in AM. White blood cell count continues to downtrend at 16. Anticipate discharge in the next 24 to 48 hours. Wound care on consult, appreciate recommendations. Right femoral central line removed yesterday, it appears that there was some skin dehiscence, in which it is being resolved with wound care and Surgicel. Pura Edwards, PGY-2 Internal Medicine patient examined at bedside today. No acute overnight events. Documentation for date of: 05/05/25 Subjective Subjective Interval history: No acute events overnight. Patient seen and examined at bedside. Vitals and labs reviewed. Patient's vitals have been stable and has improving labs regarding wbc and creatinine and continued improvement of electrolytes. BUN increasing mildly, is a little dry volume rollins. Right femoral line removed yesterday, no signs of infection. Dr. Conner states peg tube is functioning well and is in the process of ordering a gastrostomy jejunostomy tube combined with 2 ports and once that arrives we will do that procedure most likely as an outpatient. Exam Vital Signs Temp Pulse Resp BP Pulse Ox O2 Del Method O2 Flow Rate 97.7 F 98 20 139/75 H 93 L Mechanical Ventilation 05/05/25 08:00 05/05/25 08:22 05/05/25 08:00 05/05/25 08:22 05/05/25 08:12 05/05/25 08:00 05/05/25 08:00 FiO2 05/05/25 08:12 Narrative Exam General: At his baseline. Spontaneously opening and blinking. HEENT: Normocephalic, atraumatic, mucous membranes moist. PEG/Trach in place Heart: Regular rate and rhythm, no murmurs. Lungs: Clear to auscultation with no wheezing or crackles. Abdomen: Hard, distended.?No guarding or rebound tenderness. Neurologic: At his baseline. Spontaneously opening and blinking to give response. Extremities: noted Anasarca Skin: No rash or ecchymoses. noted to have decubitus ulcers Objective Labs 05/05/25 06:50 05/05/25 06:50 Labs: Laboratory Results - last 24 hr 05/05/25 06:50 WBC 18.2 H RBC 3.33 L Hgb 8.4 L Hct 25.9 L MCV 78 L MCH 25.2 MCHC 32.4 RDW Std Deviation 59.0 H Plt Count 263 Neut % (Auto) 78 Lymph % (Auto) 9 L [place] % (Auto) 6 Eos % (Auto) 4 Baso % (Auto) 0 Neut # (Auto) 14.2 H Lymph # (Auto) 1.6 [place] # (Auto) 1.0 H Eos # (Auto) 0.7 H Baso # (Auto) 0.1 Immature Gran # (Auto) 0.71 H Absolute Nucleated RBC 0.08 H Immature Gran % 4 H Nucleated RBC % 0 Sodium 138 Potassium 4.2 Chloride 98 Carbon Dioxide 30.0 Anion Gap 10 BUN 33 H Creatinine 0.9 Estim Creat Clear Calc 92.4 eGFR > 60 BUN/Creatinine Ratio 37 H Glucose 168 H Calculated Osmolality 286 Calcium 9.6 Corrected Calcium 10.3 H Phosphorus 4.0 Magnesium 1.5 L Total Bilirubin 0.5 AST 20 ALT 12 Alkaline Phosphatase 119 H Total Protein 6.4 Albumin 3.1 L Globulin 3.3 Albumin/Globulin Ratio 0.9 L ABG Interpretation ABG results: 04/27/25 04/27/25 04/27/25 02:12 07:39 09:19 ABG pH 7.30 L 7.18 L* D 7.24 L ABG pCO2 41 53 H D 44 ABG pO2 99 98 110 H ABG HCO3 20 20 19 L ABG O2 Saturation 98 98 99 H ABG Base Excess -6 L -9 L -8 L 04/27/25 04/28/25 04/30/25 12:15 04:10 04:21 ABG pH 7.28 L 7.34 L 7.26 L ABG pCO2 39 36 46 D ABG pO2 135 H D 111 H D 66 L D ABG HCO3 18 L 19 L 20 ABG O2 Saturation 100 H 99 H 93 ABG Base Excess -8 L -6 L -6 L 04/30/25 05/01/25 16:15 04:07 ABG pH 7.31 L 7.30 L ABG pCO2 43 50 H ABG pO2 69 L 64 L ABG HCO3 22 25 ABG O2 Saturation 94 93 ABG Base Excess -4 L -2 Quality Measures Quality Measures VTE prophylaxis Advance care planning discussed with:: patient and other Assessment & Plan Assessment Current Active Medications: Generic Name Dose Route Start Last Admin Trade Name Sandy PRN Reason Stop Dose Admin Acetaminophen 650 mg 04/27/25 03:11 05/04/25 11:29 Acetaminophen 325 Mg Tablet PO 05/27/25 03:10 650 mg Q4HR PRN Administration PAIN SCALE 1-3 (mild Amlodipine Besylate 10 mg 05/04/25 09:00 05/05/25 08:22 Amlodipine Besylate 5 Mg Tablet GT 06/03/25 08:59 10 mg QDAY IMANI Administration Aspirin 81 mg 04/27/25 09:00 05/05/25 08:22 Aspirin 81 Mg Chew GT 05/27/25 08:59 81 mg QDAY IMANI Administration Dextrose 25 ml 04/27/25 03:37 Dextrose 50%-Water Inj 50 Ml Syringe IV 05/27/25 03:36 Q15MIN PRN BG 50-70 responsive npo pt Dextrose 50 ml 04/27/25 03:37 Dextrose 50%-Water Inj 50 Ml Syringe IV 05/27/25 03:36 Q15MIN PRN BG <50 OR BG <70 & pt unresponsive Glucagon 1 mg 04/27/25 03:37 Glucagon Inj 1 Mg Vial IM Q15MIN PRN BG <70, and no IV access Heparin Sodium (Porcine) 5,000 unit 04/27/25 06:00 05/03/25 05:36 Heparin Sod Inj 5000 Unit/Ml Vial SC 05/11/25 05:59 Not Given Q8HR IMANI Heparin Sodium (Porcine) 3,000 unit 04/30/25 11:01 05/03/25 11:49 Heparin Sod Inj 1000 Unit/Ml Vial 10 Ml INDWELLCAT 05/14/25 11:00 3,000 unit PRN PRN Administration DIALYSIS Piperacillin/Tazobactam/Dextrose 3.375 gm in 50 mls @ 12.5 mls/hr 04/30/25 22:00 05/05/25 05:24 Zosyn IV 05/07/25 21:59 12.5 mls/hr Q8HR IMANI Administration Insulin Degludec 22 unit 05/01/25 21:00 05/04/25 20:46 Insulin Degludec 5 Unit/0.05 Ml (Per 5 Units) SC 05/31/25 20:59 22 unit HS IMANI Administration Insulin Human Lispro 0 unit 04/27/25 06:00 05/05/25 05:29 Insulin Lispro (Admelog) 1 Unit/0.01 Ml Unit SC 05/27/25 05:59 Not Given Q6HR IMANI Protocol Magnesium Hydroxide 30 ml 04/27/25 03:11 Milk Of Magnesia Susp 30 Ml Udc PO 05/27/25 03:10 QDAY PRN CONSTIPATION Metoclopramide HCl 5 mg 05/04/25 00:00 05/05/25 05:23 Metoclopramide Inj 5 Mg/Ml Vial 2 Ml IVP 06/03/25 00:00 5 mg Q6HR IMANI Administration Protocol Midodrine 10 mg 05/02/25 10:45 05/05/25 05:25 Midodrine 5 Mg Tablet PO 06/01/25 10:44 Not Given TID IMANI Mupirocin 0 gm 04/28/25 22:00 05/05/25 05:25 Mupirocin Oint 2% 15 Gm Tube TOP 05/05/25 21:59 1 applicatio TID IMANI Administration Plan Kwadwo Sanchez is a 80-year-old male with significant past medical history of CVA s/p trach/PEG tube, chronic hypoxic respiratory failure, MRSA pneumonia, Pseudomonas UTI, MRSA bacteremia, sacral ulcer, IDDM type II, hypertension, hyperlipidemia, vertebral osteomyelitis, acute pancreatitis, calculus cholelithiasis, MARGARETTE requiring hemodialysis in the past, and decubitus ulcers brought in by [facility] by the [facility] [place] with chief complaint of fever for past 2 days. Patient was admitted to ICU for further management of septic shock secondary to pneumonia and UTI; Downgraded from ICU no longer needing pressors; continuing to manage unresolved sepsis. #Sepsis 2/2 #Healthcare associated pneumonia Vs Severe UTI #S/p chronic tracheostomy #Leukocytosis Patient presented with fever, tachycardia, white count of 28 and RR 29, lactic acid 2.2, and requiring pressure support. The patient only received 1 L of normal saline initially (fluid overloaded). Chest x-ray revealed bilateral pneumonia, UA revealed 3+ blood, 1.8k RBC's, 1.9k WBC's. Blood cultures no growth. CT A/P 05/02 along with residuals from PEG tube makes aspiration pneumonia another ddx. - GI will place PEG tube with gastric/jejunostomy port when it arrives; can be done outpatient - Continuing zosyn. - Midodrine 10mg TID as needed if MAP < 65 and SBP <100 - WBC's improving, will continue to monitor #MARGARETTE, improving Likely prerenal leading to ATN secondary to sepsis Presented with creatinine of 1.5, baseline creatinine about 0.7-0.8 Patient appears to produce low urine output as of now - [facility], Dr. Jensen is consulted, HD 04/30, 05/01, 05/03 via R femoral line. - Monitor renal panel, renally dose medications and avoid nephrotoxins #Hyponatremia, resolving Possibly due to renal failure, CHF, cirrhosis The patient presented with sodium of 117, but corrected sodium was 123 --> 05/01, 126 - Will continue to monitor sodium levels - [facility], Dr. Jensen is consulted, appreciate recommendations. #Right heart failure and moderate pulmonary hypertension Patient appears to have anasarca, also noted to have mild hypoalbuminemia Echo on 04/27 - showed right ventricular volume/pressure overload, mild to moderate TR, RVSP elevated at 40 to 45 mmHg. EF is 55 to 60% - Will require cardiac catheterization after discharge to categorize pulmonary hypertension and needs treatment accordingly. #Hypertension, well controlled - Using Amlodipine 10mg every day and will Hold medications for now. #Insulin-dependent diabetes mellitus type 2 - Started on insulin degludec 13 units daily at night, increased to 18 units, adjusted to 22 units as of 05/01 based on blood sugars on morning labs - Sliding scale insulin lispro every 6 hourly with fingerstick blood sugar checks - A1c ordered - 10.5 #Microcytic anemia Likely 2/2 anemia of chronic disease, but could not rule out other differentials like nutritional deficiency - Iron panel, ferritin, folic acid, vitamin B12, reticulocyte count, peripheral smear and LDH ordered - showed iron deficiency - Will supplement iron once the infection is resolved - Daily a.m. 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 De La Fuente & resident physician Dr. Grace Méndez MD PGY-1 Attending Provider Attestation/Addendum I reviewed labs, imaging, EKG, home medications and prior available records. Face to face evaluation was performed by me. I have personally examined the patient and discussed assessment and plan with the IM team. I reviewed the resident note and agree with the plan with exceptions as below. Chronic hypoxic respiratory failure CVA status post trach and PEG Septic shock, secondary to urinary versus pulmonary source Hyponatremia MARGARETTE Type 2 diabetes mellitus He is off pressors Continue Zosyn for 7 days per ID recommendations Ordered CT of the chest, abdomen, and pelvis that showed bibasilar pneumonia with possible aspiration pneumonia. Possible SBO. Ordered CT Gastrografin study Consulted GI: Recommended no PEG tube exchange. May perform GJ tube insertion which can be done at the rehab Trend WBC: Downtrending Continue aspirin He is off hemodialysis. Removed Vas-Cath Monitor kidney function. Outpatient follow-up with nephrology Monitor sodium level Held subcutaneous heparin secondary to thigh hematoma Reason for stay: Monitoring kidney function of hemodialysis. WBC still significantly elevated
--- NOTE | 2025-05-05 12:05 | PD.IMPROG ---
Documentation for date of: 05/05/25 Subjective Subjective Interval history: Patient evaluated PEG tube is working well Case discussed with internal medicine team I am in the process of ordering a gastrostomy jejunostomy tube combined with 2 ports and once that arrives we will do that procedure most likely as an outpatient Exam Vital Signs Temp Pulse Resp BP Pulse Ox O2 Del Method O2 Flow Rate 97.7 F 98 20 139/75 H 93 L Mechanical Ventilation 30 05/05/25 08:00 05/05/25 08:22 05/05/25 08:00 05/05/25 08:22 05/05/25 08:12 05/05/25 08:00 05/05/25 08:00 FiO2 30 05/05/25 08:12 Objective Labs 05/05/25 06:50 05/05/25 06:50 Labs: Laboratory Results - last 24 hr 05/05/25 06:50 WBC 18.2 H RBC 3.33 L Hgb 8.4 L Hct 25.9 L MCV 78 L MCH 25.2 MCHC 32.4 RDW Std Deviation 59.0 H Plt Count 263 Neut % (Auto) 78 Lymph % (Auto) 9 L [place] % (Auto) 6 Eos % (Auto) 4 Baso % (Auto) 0 Neut # (Auto) 14.2 H Lymph # (Auto) 1.6 [place] # (Auto) 1.0 H Eos # (Auto) 0.7 H Baso # (Auto) 0.1 Immature Gran # (Auto) 0.71 H Absolute Nucleated RBC 0.08 H Immature Gran % 4 H Nucleated RBC % 0 Sodium 138 Potassium 4.2 Chloride 98 Carbon Dioxide 30.0 Anion Gap 10 BUN 33 H Creatinine 0.9 Estim Creat Clear Calc 92.4 eGFR > 60 BUN/Creatinine Ratio 37 H Glucose 168 H Calculated Osmolality 286 Calcium 9.6 Corrected Calcium 10.3 H Phosphorus 4.0 Magnesium 1.5 L Total Bilirubin 0.5 AST 20 ALT 12 Alkaline Phosphatase 119 H Total Protein 6.4 Albumin 3.1 L Globulin 3.3 Albumin/Globulin Ratio 0.9 L Impressions Impression: Malfunctioning gastrostomy tube Risk of aspiration from the gastrostomy tube Outpatient gastrostomy jejunostomy tube placement once the tube arrives ABG Interpretation ABG results: 04/27/25 04/27/25 04/27/25 02:12 07:39 09:19 ABG pH 7.30 L 7.18 L* D 7.24 L ABG pCO2 41 53 H D 44 ABG pO2 99 98 110 H ABG HCO3 20 20 19 L ABG O2 Saturation 98 98 99 H ABG Base Excess -6 L -9 L -8 L 04/27/25 04/28/25 04/30/25 12:15 04:10 04:21 ABG pH 7.28 L 7.34 L 7.26 L ABG pCO2 39 36 46 D ABG pO2 135 H D 111 H D 66 L D ABG HCO3 18 L 19 L 20 ABG O2 Saturation 100 H 99 H 93 ABG Base Excess -8 L -6 L -6 L 04/30/25 05/01/25 16:15 04:07 ABG pH 7.31 L 7.30 L ABG pCO2 43 50 H ABG pO2 69 L 64 L ABG HCO3 22 25 ABG O2 Saturation 94 93 ABG Base Excess -4 L -2 Assessment & Plan A&P Narrative Malfunctioning PEG tube with no gastric residual issues at the moment Reglan 5 mg IV push every 6 hours Will order a tube with the gastric port and the jejunostomy port and when it arrives I will replace his tube either here or in the SNF The gastrostomy port can be used for meds and the jejunostomy port can be used for feeding the patient Thank you very much for the opportunity to participate in care of this patient Time Spent With Patient Time: Total time spent is greater than 50% in coordination of care (as documented) at patient's floor/unit and/or counseling patient:
[2025-05-05] MEDS: INSULIN DEGLUDEC 5 UNIT/0.05 ML (PER 5 UNITS) 22 UNIT SC (21:03)
[2025-05-05] MEDS: INSULIN LISPRO (AdmeLOG) 1 UNIT/0.01 ML UNIT SC (23:16)
[2025-05-06] VITALS (15 sets, daily range): BP systolic 113–158; BP diastolic 72–97; PULSE 92–103; RESP 19–27; TEMP 36.1–36.8; O2SAT 96–100
[2025-05-06] MEDS: PIPER/TAZO 3.375 GM PREMIX 3.375 GM/50 ML BAG IV ×3 (05:22→21:11)
[2025-05-06] MEDS: METOCLOPRAMIDE INJ 5 MG/ML VIAL 2 ML IVP ×4 (05:23→23:42)
[2025-05-06 06:11] LABS: Basophils # (Auto) 0.1 Thou/mm3 (0.0-0.2); Basophils % (Auto) 0 % (0-2.5); Eosinophils # (Auto) 0.6 Thou/mm3 (0.0-0.5); Eosinophils % (Auto) 4 % (0-10); Hematocrit 25.6 % (41.0-53.0); Immature Granulocytes Auto 0.33 Thou/mm3 (0.00-0.00); Lymphocytes # (Auto) 1.4 Thou/mm3 (1.0-4.8); Lymphocytes % (Auto) 9 % (10-50); Mean Corpuscular HGB Conc 32.0 g/dl (31.0-37.0); Mean Corpuscular Hemoglobin 24.8 pg (25.0-35.0); Mean Corpuscular Volume 77 fL (80-100); Monocytes # (Auto) 0.8 Thou/mm3 (0.0-0.8); Monocytes % (Auto) 5 % (0-12); Neutrophils # (Auto) 12.4 Thou/mm3 (1.8-7.7); Neutrophils % (Auto) 79 % (37-80); Nucleated Red Blood Cell # 0.04 Thou/mm3 (0.00-0.00); Nucleated Red Blood Cell % 0 /100 WBC (0); Platelet Count 230 Thou/mm3 (140-440); RDW Standard Deviation 59.7 fL (35.1-43.9); Red Blood Count 3.31 Miln/mm3 (4.50-5.90); White Blood Count 15.7 Thou/mm3 (3.8-10.6)
[2025-05-06 06:15] LABS: Hemoglobin 8.2 g/dL (13.5-16.0)
[2025-05-06 06:40] LABS: Alanine Aminotransferase 17 U/L (10-49); Albumin, Serum 3.1 gm/dL (3.4-4.8); Albumin/Globulin Ratio 0.9 (1.2-2.2); Alkaline Phosphatase 113 U/L (46-116); Anion Gap 10 (7-16); Aspartate Amino Transferase 36 U/L (0-34); BUN/Creatinine Ratio 29 Ratio (12-20); Bilirubin,Total 0.5 mg/dL (0.3-1.2); Blood Urea Nitrogen 23 mg/dL (9-23); Calcium 9.6 mg/dL (8.3-10.6); Calcium (Corrected) 10.3 mg/dL (8.5-10.1); Carbon Dioxide 27.6 mMol/L (20.0-31.0); Chloride 99 mMol/L (98-107); Creatinine (Component) 0.8 mg/dL (0.6-1.3); Estimated Creatinine Clearance 104.6 mL/min (>60); Globulin 3.4 gm/dL (2.3-3.5); Glucose 152 mg/dL (74-106); Magnesium 1.5 mg/dL (1.6-2.6); Osmolality,Calculated 280 (275-295); Phosphorous 4.2 mg/dL (2.4-5.1); Potassium 4.6 mMol/L (3.4-5.1); Sodium 137 mMol/L (136-145); Total Protein 6.5 gm/dL (5.7-8.2); eGFR > 60 See Note
[2025-05-06] MEDS: ASPIRIN 81 MG CHEW GT (08:18)
--- NOTE | 2025-05-06 08:29 | PC.SS ---
Updated clinicals submitted to [facility].
--- NOTE | 2025-05-06 09:55 | PC.SS ---
[employer] L[employer] INTERPRETER informed RT staff that patient will require RT rider upon discharge. RT staff informed [employer] INTERPRETER that RT department is fully staffed for today if patient is discharged.
--- NOTE | 2025-05-06 10:15 | ESPR_ITS ---
Documentation for date of: 05/06/25 Subjective Subjective Interval history: Mr Sanchez is a 80-year-old male with significant past medical history of CVA s/p trach/PEG tube, chronic hypoxic respiratory failure, MRSA pneumonia, Pseudomonas UTI, MRSA bacteremia, sacral ulcer, IDDM type II, hypertension, hyperlipidemia, vertebral osteomyelitis, acute pancreatitis, calculus cholelithiasis, MARGARETTE requiring hemodialysis in the past, and decubitus ulcers brought in by [facility] by the [facility] [place] with chief complaint of fever for past 2 days. As per nursing facility staff, the patient is nonverbal at baseline with GCS score is 5, and they provided a note to rule out sepsis. The at bedside is a poor historian, and believe that the patient still interacts with her. Initially in the ED her vitals were BP 128/58, pulse 123, RR 29, temperature 100.9, saturating 100% on 40 L FiO2 via tracheostomy tube. Labs are significant for white count of 28.6, hemoglobin 8.2, MCV 74, platelet 368, ESR 102, D-dimer greater than 3820, ABG revealed pH 7.30, pCO2 41, sodium 117 with corrected sodium for hyperglycemia is 123, potassium 4.1, chloride 87, bicarb 19.9, anion gap 10, BUN/creatinine 36/1.5, GFR 47, blood sugar 299, lactic acid 2.2, magnesium 2.0, T. bili 1.8, direct bilirubin 1.4, AST/ALT/ALP 71/47/229, troponin less than 0.020, CRP greater than 10.0, BNP 138, albumin 3.2, Pro-Tevin 2.28, UA revealed dark yellow urine, turbid, 2+ protein, 3+ blood, leukocyte esterase positive, RBC 1847, WBC 1892, urine bacteria none. Chest x-ray revealed extensive bilateral pneumonia. PMH: As mentioned above SHX: Positive abdominal surgery, tracheostomy, gastrostomy and knee joint replacement Family history: Unobtainable Social history: He is , often comes to visit, others unobtainable Medications: To be reconciled Allergies: NYLA inhibitors, upper airway edema, ARB's for airway edema The patient was given 1 L of bolus normal saline in the ED, vancomycin and cefepime IV x 1, and he is MAP dropped down to less than 65, and was started on Levophed. The patient was admitted to ICU for further management of septic shock secondary to pneumonia and UTI. 04/27/2025: pt admitted to ICU, Nephrology consulted patient seen and examined in ICU pt on pressors, pt is unresponsive to voice and pain, Pupils are fixed and non responsive to light. pt has sacral wounds being examined by wound nurse divya. pt appears hypervolemic on exam, BLE edematous. ICU managing fluids, Na 118, Cl 88, hco3 17, BUN 35, Cr 1.6, Serum Osm 257 UA with 2+ protein 3+ blood. Urine looks concentrated suspect hypervolemia hyponatremia, reccomend diuretics and albumin 04/28/2025: patient seen and examined in the ICU. Pt opens eyes spontaneously. appears hypervolemic on exam with ELE and ELE with significant edema, ICU managing fluids, Na 120, K 3.7 Cl 88, CO2 17, BUN 42 from 35,Cr 1.8 from 1.6. suspect hypervolemic hyponatremia, reccomend trial of 40 IV lasix and IV albumin, bicitra, procrit epogen 10 000 04/29/2025: Patient examined at bedside in the ICU, remains bedbound on blood pressure support via trach. GCS 4T, patient is not following any commands at this time but does open eyes spontaneously. Hyponatremia improving slowly, will start salt tabs at this time and monitor sodium closely. Patient was given IV Lasix yesterday, with minimal improvement. He still appears significantly fluid overloaded, will give albumin for now. 04/30/2025: Patient seen and examined in the ICU, with trach, uop is minimal, german catheter was removed, straight cath q4h with bladder scans. L femoral catheter removed, Bcx pending, WBC elevated to 34, Na 122, BUN 46 from 31, Cr 2.2 from 2. query UTI, vs bacteremia. , HR 100s, BP normotensive. on exam pt has significant edema query whether pt is hypervolemic vs intravascularly down, recommend aldactone 50, given 1L LR per ICU. 05/01/2025: Patient seen and examined in the ICU, trach is midline wo crusting or oozing secretions minimal, straight cath q4 hr with 400 UOP, B cx GPC 1/2 tubes. WBC 31 from 34, pt appears volume overloaded on exam, lungs sounds difficult to appreciate given pt habitus, BUN 46, Cr 2.1 from 2.2. continues on vanc and zosyn. Plan for HD today with fluid removal. reccomend holding fluids today. BP 90s/40s. 05/06/2025 patient currently seen in telemetry. Moved out of ICU. Blood pressure still on the lower side. On midodrine. Hold dialysis today. Did receive 2 dialysis sessions. Labs/medications reviewed. No family around. Dialysis catheter removed. Patient started to make urine. Review of Systems Review of Systems ROS Unobtainable: unobtainable due to mental status and unobtainable due to medical condition Exam Vital Signs Temp Pulse Resp BP Pulse Ox O2 Del Method O2 Flow Rate 38.7 C H 105 H 20 124/68 100 Mechanical Ventilation 30 05/08/25 12:00 05/08/25 12:35 05/08/25 12:00 05/08/25 12:00 05/08/25 12:35 05/08/25 12:00 05/08/25 12:00 FiO2 40 05/08/25 12:35 Narrative Exam General: No acute distress, comatose, opening eyes spontaneously. HEENT: dry mucous membranes, oropharynx not assessed (contracted jaw) Neck: trach in place midline CVS: regular rate and rythm, +murmor , rubs or gallops Lungs: Mild rhonchi throughout the lung field, no wheezing, crackles or decreased breath sounds Abd: Soft, NT, slightly distended, +BS, +epigastric peg tube in place with no errythema crusting or drainage around tube. : german in place, draining well Ext: diffuse edema of upper and 2+ pitting of the lower extrem, warm and well perfused,s/p removal of fem cath Skin: Multiple stages of decubitus ulcers on buttoks and sacrum , L heel with 3cm bruise violacious, skin on dorsum of foot with increased skin pealing, very dry Psych: comatose Objective Labs 05/09/25 04:27 05/09/25 04:27 Labs: Laboratory Results - last 24 hr 05/07/25 05/07/25 05/08/25 06:41 18:34 06:18 WBC 19.8 H RBC 3.42 L Hgb 8.4 L Hct 27.0 L MCV 79 L MCH 24.6 L MCHC 31.1 RDW Std Deviation 62.0 H Plt Count 254 Neut % (Auto) 85 H Lymph % (Auto) 7 L Mitchell % (Auto) 5 Eos % (Auto) 3 Baso % (Auto) 0 Neut # (Auto) 16.8 H Lymph # (Auto) 1.4 Mitchell # (Auto) 1.0 H Eos # (Auto) 0.5 Baso # (Auto) 0.1 Immature Gran # (Auto) 0.17 H Absolute Nucleated RBC 0.00 Immature Gran % 1 H Nucleated RBC % 0 PT INR APTT Fibrinogen > 860 H* Sodium Potassium Chloride Carbon Dioxide Anion Gap BUN Creatinine Estim Creat Clear Calc eGFR BUN/Creatinine Ratio Glucose Calculated Osmolality Calcium Corrected Calcium Phosphorus Magnesium 1.6 Ferritin 175 Albumin 05/08/25 11:36 WBC RBC Hgb Hct MCV MCH MCHC RDW Std Deviation Plt Count Neut % (Auto) Lymph % (Auto) Mitchell % (Auto) Eos % (Auto) Baso % (Auto) Neut # (Auto) Lymph # (Auto) Mitchell # (Auto) Eos # (Auto) Baso # (Auto) Immature Gran # (Auto) Absolute Nucleated RBC Immature Gran % Nucleated RBC % PT 12.2 INR 1.1 APTT 25.9 Fibrinogen Sodium 138 Potassium 4.8 Chloride 100 Carbon Dioxide 27.9 Anion Gap 10 BUN 29 H Creatinine 0.9 Estim Creat Clear Calc 91.2 eGFR > 60 BUN/Creatinine Ratio 32 H Glucose 176 H Calculated Osmolality 285 Calcium 9.3 Corrected Calcium 10.1 Phosphorus 4.0 Magnesium Ferritin Albumin 3.0 L ABG Interpretation ABG results: 04/27/25 04/27/25 04/27/25 02:12 07:39 09:19 ABG pH 7.30 L 7.18 L* D 7.24 L ABG pCO2 41 53 H D 44 ABG pO2 99 98 110 H ABG HCO3 20 20 19 L ABG O2 Saturation 98 98 99 H ABG Base Excess -6 L -9 L -8 L 04/27/25 04/28/25 04/30/25 12:15 04:10 04:21 ABG pH 7.28 L 7.34 L 7.26 L ABG pCO2 39 36 46 D ABG pO2 135 H D 111 H D 66 L D ABG HCO3 18 L 19 L 20 ABG O2 Saturation 100 H 99 H 93 ABG Base Excess -8 L -6 L -6 L 04/30/25 05/01/25 16:15 04:07 ABG pH 7.31 L 7.30 L ABG pCO2 43 50 H ABG pO2 69 L 64 L ABG HCO3 22 25 ABG O2 Saturation 94 93 ABG Base Excess -4 L -2 Assessment & Plan Additional Assessment & Plan Additional Plan: Plan Mr Sanchez is a 80-year-old gentleman with hx of CVA s/p trach/PEG tube, chronic hypoxic respiratory failure, MRSA pneumonia, Pseudomonas UTI, MRSA bacteremia, sacral ulcer, IDDM type II (poorl controlled A1c 10.5), hypertension, hyperlipidemia, vertebral osteomyelitis, hx of MARGARETTE requiring hemodialysis in the past, whose baseline mental status is GCS 5, admitted to ICU for septic shock 2/2 PNA vs UTI, requiring pressors and hyponatremia, with minimal UOP 280 ccs, trial lasix and albumin given suspicion of hypervolemic hyponatremia however UOP is minimal, german cath removed and L fem cath removed, WBC 34, 1/2 bcx with GPC, on vanc and zosyn. query UTI, WBC remains elevated, downtrending today 31 from 34. pt with significant anisarca, however query low intravascular volume. pt may benefit from aldactone 50 if >concern for hypervolemia. holding IV fluids today, Plan for HD today with fluid removed. Hypervolemic hyponatremia - hyponatremia resolving query hypovolemic hyponatremia The patient presented with sodium of 117, but the corrected sodium was 123 (pt hyerglycemic to 288) The patient received 1 L of normal saline in the ED for sepsis and 1 L LR in the ICU Serum osm 257: hypernatremic, hypotonic, hypervolemic on exam: query CHF vs renal failure, vs cirrhosis vs nephrotic syndrome (UA with 2+ protein) - Was given IV lasix 40mg x1 in 04/28 with minimal improvement - 04/29: Na 120 -> 121 , appears hypervolemic on exam BUE and BLE edematous. - 04/30: Na 122, significant anisarca, start HD - 05/01: Na 126 (Corrected Na is 130 given serum glucose 217) significant ansiarca, HD today with fluid removal hold iv fluids today Last HD: 04/30, 05/01 Plan: - HD DC'd. Catheter was removed. Patient seems to have renal recovery. - Continue IV Albumin 25mg IV BID - Hyponatremia improving slowly, (gave salt tabs) - rec holding fluids today - On Bicitra given HCO3 low may help correct hyponatremia - Sodium checks per primary team MARGARETTE nonnephrotic range proteinuria Likely prerenal secondary to sepsis Presented with creatinine of 1.5, baseline creatinine about 0.7-0.8 Urine Protein Cr ratio: 115: 53= 2.6 (nonnephrotic rage protienuria) - 04/27 Cr 1.6, BUN 35 - 04/28, Cr 1.8, BUN 42 - 04/29: BUN 43 and GFR 36 - 04/30: Cr 2.2 from 2, BUN 46 from 31 - 05/01: Cr 2.1 from 2.2, BUN 45 from 46 (stable) BP 90s/40s, Creatinine markedly improved. 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 Due to concern of overcorrection of hyponatremia, full 30 cc/kg body fluid was not given. repeat bcx pending Bilateral healthcare associated pneumonia Possible acute hypoxic respiratory failure 2/2 query aspiration pneumonia Severe UTI -on abx german removed, straight cath q4hr hypotension - on midodrine 5 mg TID Chronic respiratory failure 2/2 S/p CVA mech ventilation per trach tube, Transaminitis - resolved Diarrhea - cdiff negative Nutrition per peg tube Acute hgb drop- now stable Microcytic anemia - likely dilutional given decrease in other cell lines, - give procrit 10 000 - iron deficiency, iron studies low, retic count elevated. Non-anion gap metabolic acidosis Insulin-dependent diabetes mellitus type 2 - A1c 10.5 Multistage decubitus ulcer HTN HLD - managment per primary team Quality - progress note Quality Measures Quality Measures: VTE prophylaxis Reason for Continued Stay Reason for Continued Stay: further monitoring
--- NOTE | 2025-05-06 10:49 | PC.SS ---
HEATING REPAIR TECHNICIAN contacted patient's spouse to confirm d/c plan to transition the patient back to [facility]. No response. HEATING REPAIR TECHNICIAN left message requesting return call.
--- NOTE | 2025-05-06 10:51 | PC.SS ---
FINANCIAL DEALERS contacted [facility] the [facility] to confirm retrieval of updated clinicals to inform facility that discharge orders present. FINANCIAL DEALERS informed by [facility] the [facility] staff that SOLE MOLDING MACHINE OPERATOR not available at present time to provide update for discharge. FINANCIAL DEALERS left contact number for [facility] the [facility] staff to contact [employer].
--- NOTE | 2025-05-06 11:31 | PC.SS ---
LIFT TEAM TECHNICIAN informed by [facility] at [facility] nursing staff, Sarahi; that facility cannot accept patient back today due to limited RT staff at facility. Nursing staff informed LIFT TEAM TECHNICIAN that patient can transition back to facility tomorrow between 10:00 am and 7:00 pm. LIFT TEAM TECHNICIAN updated resident, bedside nurse and respiratory staff.
--- NOTE | 2025-05-06 11:32 | PD.RESDS ---
Planned Discharge Date 05/06/25 DS: Providers Provider Date of admission: 04/27/25 01:59 Primary care physician: Alexa Heredia MD Admitting Provider: Zeyad Muñiz MD Attending Provider on Admission: Obey De La Fuente MD Consults: 04/27/25 03:27 Consult to Nephrology Routine Comment: Consulting Provider: Carleen Jensen 04/27/25 04:21 Referral Nutritional Services Routine Comment: Referral Wound Care Routine Comment: 05/02/25 07:49 Consult to Infectious Diseases Stat Comment: Septic shock, source, multiple positive cultures Consulting Provider: Porter Castillo 05/03/25 10:40 Consult to Gastroenterology Routine Comment: Consulting Provider: Simon Conner 05/03/25 19:45 Referral Wound Care Stat Comment: RIGHT GROIN AREA. TRIFLOW SITE. MOISTURE DERM... Instructions: POSSIBLE MOISTURE DERMATITIS. PURULENT DISCHARGE NOTED AT SITE. Attending Provider on DC: Obey De La Fuente MD Discharging Provider: Obey De La Fuente MD Hospital Course Hospital Course Hospital course: No acute events overnight. Patient seen and examined at bedside. Vitals and labs reviewed. Patient's vitals have been stable and has improving labs regarding wbc and creatinine and continued improvement of electrolytes. BUN increasing mildly, is a little dry volume rollins. Right femoral line removed yesterday, no signs of infection. Dr. Conner states peg tube is functioning well and is in the process of ordering a gastrostomy jejunostomy tube combined with 2 ports and once that arrives we will do that procedure most likely as an outpatient. Time Spent with Patient Time attestation: Total time spent providing and/or coordinating discharge services: Exam Vital Signs Temp Pulse Resp BP Pulse Ox O2 Del Method O2 Flow Rate 98.2 F 99 20 158/85 H 97 Mechanical Ventilation 30 05/06/25 08:00 05/06/25 08:18 05/06/25 08:00 05/06/25 08:18 05/06/25 08:17 05/06/25 08:00 05/06/25 08:00 FiO2 30 05/06/25 08:17 Discharge Plan Plan Patient Disposition: Xfer Skilled Nsg Fac (SNF) Care Plan Goals: Discharge instructions: Follow up with your PCP within one week from dishcharge Use medications as prescribed Continue wound care as per manager electrical recommendations Follow up with the gastro-enterologist regarding your PEG tube replacement In case of worsening of your symptoms please return to the ED as soon as possible Prescriptions/Referrals Prescriptions/Med Rec: New amoxicillin-pot clavulanate 875-125 mg tablet 1 tab PO BID 2 Days Qty: 4 0RF Continued cetirizine 10 mg Tablet 10 mg feeding tube QDAY multivitamin with minerals Liquid 15 ml feeding tube QDAY melatonin 3 mg Tablet 5 mg feeding tube HS ascorbic acid (vitamin C) 500 mg Tablet 500 mg feeding tube BID Fleet Enema 19-7 gram/118 mL Enema 118 ml DC PRN PRN (Reason: Constipation) aspirin 81 mg Tablet,Chewable 81 mg feeding tube QDAY ezetimibe 10 mg Tablet 10 mg feeding tube QPM simethicone 80 mg Tablet,Chewable 80 mg feeding tube BID lactulose 10 gram/15 mL Solution 20 g PO QDAY bisacodyl 10 mg Suppository 10 mg DC EVERYOTHERDAY PRN (Reason: bowel ) gabapentin 300 mg Capsule 600 mg PO BID amlodipine 5 mg Tablet 10 mg feeding tube QDAY insulin glargine 100 unit/mL Cartridge 25 unit SUBCUT QPM Changed ferrous sulfate 220 mg (44 mg iron)/5 mL Solution 220 mg PO Q OTHER DAY 21 Days Qty: 55 0RF Discontinued clopidogrel 75 mg Tablet 75 mg feeding tube QDAY fluticasone propionate 50 mcg/actuation [place],Suspension 1 spray INTRANASAL QDAY glipizide 5 mg Tablet 5 mg feeding tube QDAY furosemide 20 mg Tablet 20 mg PO QDAY ketotifen fumarate 0.025 % (0.035 %) Drops 1 drp OPHTHALMIC (EYE) BID Rx Instructions: administer at least 8 hours apart sennosides [senna] 8.8 mg/5 mL Syrup 5 ml PO BID sodium bicarbonate 650 mg Tablet 650 mg PO QDAY Lokelma 5 gram Powder In Packet 5 g PO Q OTHER DAY meropenem 1 gram recon soln 1 g IV QDAY MDD 1 gram 60 Days Qty: 25 2RF Referrals: Alexa Heredia MD [Primary Care Provider] - Patient/Caregiver Discharge Instructions Education Materials: Understanding Post Sepsis Syndrome, Urinary Tract Infections in Men, Sepsis, Acute Kidney Failure Dc Print Language: Bulgarian Stand Alone Forms: Maria Isabel Award Info., Patient Portal Info Letter Discharge Order Discharge Orders: Discharge (Routine); Ordered 08/31/25 Ordered By: Vanessa Crawley
--- NOTE | 2025-05-06 11:34 | ESPR_ITS ---
<Statement entered by Vanessa Crawley MD - 05/06/25 16:51> Patient was seen and examined at bedside. Patient was supposed to be discharged today to a alf facility however the original alf facility was having staffing shortage for that reason patient will be staying in the hospital for another day and possibly discharge tomorrow. - Patient's plan and care discussed with my attending, Dr. Sudhakar Crawley MD Internal Medicine PGY-3 Documentation for date of: 05/06/25 Subjective Subjective Interval history: No acute events overnight. Patient seen and examined at bedside. Vitals and labs reviewed. Patient's vitals continue to be stable. Patient output 3.1 L urine last [address] Conner states peg tube is functioning well and is in the process of ordering a gastrostomy jejunostomy tube combined with 2 ports and once that arrives we will do that procedure most likely as an outpatient. Pending SNF staff availability for discharge. Exam Vital Signs Temp Pulse Resp BP Pulse Ox O2 Del Method O2 Flow Rate 98.2 F 99 20 158/85 H 97 Mechanical Ventilation 30 05/06/25 08:00 05/06/25 08:18 05/06/25 08:00 05/06/25 08:18 05/06/25 08:17 05/06/25 08:00 05/06/25 08:00 FiO2 30 05/06/25 08:17 Narrative Exam General: At his baseline. Spontaneously opening and blinking. HEENT: Normocephalic, atraumatic, mucous membranes moist. PEG/Trach in place Heart: Regular rate and rhythm, no murmurs. Lungs: Clear to auscultation with no wheezing or crackles. Abdomen: Hard, distended.?No guarding or rebound tenderness. Neurologic: At his baseline. Spontaneously opening and blinking to give response. Extremities: noted Anasarca Skin: No rash or ecchymoses. noted to have decubitus ulcers Objective Labs 05/07/25 06:41 05/07/25 06:41 Labs: Laboratory Results - last 24 hr 05/06/25 05:35 WBC 15.7 H RBC 3.31 L Hgb 8.2 L Hct 25.6 L MCV 77 L MCH 24.8 L MCHC 32.0 RDW Std Deviation 59.7 H Plt Count 230 D Neut % (Auto) 79 Lymph % (Auto) 9 L [place] % (Auto) 5 Eos % (Auto) 4 Baso % (Auto) 0 Neut # (Auto) 12.4 H Lymph # (Auto) 1.4 [place] # (Auto) 0.8 Eos # (Auto) 0.6 H Baso # (Auto) 0.1 Immature Gran # (Auto) 0.33 H Absolute Nucleated RBC 0.04 H Immature Gran % 2 H Nucleated RBC % 0 Sodium 137 Potassium 4.6 Chloride 99 Carbon Dioxide 27.6 Anion Gap 10 BUN 23 Creatinine 0.8 Estim Creat Clear Calc 104.6 eGFR > 60 BUN/Creatinine Ratio 29 H Glucose 152 H Calculated Osmolality 280 Calcium 9.6 Corrected Calcium 10.3 H Phosphorus 4.2 Magnesium 1.5 L Total Bilirubin 0.5 AST 36 H ALT 17 Alkaline Phosphatase 113 Total Protein 6.5 Albumin 3.1 L Globulin 3.4 Albumin/Globulin Ratio 0.9 L ABG Interpretation ABG results: 04/27/25 04/27/25 04/27/25 02:12 07:39 09:19 ABG pH 7.30 L 7.18 L* D 7.24 L ABG pCO2 41 53 H D 44 ABG pO2 99 98 110 H ABG HCO3 20 20 19 L ABG O2 Saturation 98 98 99 H ABG Base Excess -6 L -9 L -8 L 04/27/25 04/28/25 04/30/25 12:15 04:10 04:21 ABG pH 7.28 L 7.34 L 7.26 L ABG pCO2 39 36 46 D ABG pO2 135 H D 111 H D 66 L D ABG HCO3 18 L 19 L 20 ABG O2 Saturation 100 H 99 H 93 ABG Base Excess -8 L -6 L -6 L 04/30/25 05/01/25 16:15 04:07 ABG pH 7.31 L 7.30 L ABG pCO2 43 50 H ABG pO2 69 L 64 L ABG HCO3 22 25 ABG O2 Saturation 94 93 ABG Base Excess -4 L -2 Quality Measures Quality Measures VTE prophylaxis Advance care planning discussed with:: other Assessment & Plan Assessment Current Active Medications: Generic Name Dose Route Start Last Admin Trade Name Freq PRN Reason Stop Dose Admin Acetaminophen 650 mg 04/27/25 03:11 05/04/25 11:29 Acetaminophen 325 Mg Tablet PO 05/27/25 03:10 650 mg Q4HR PRN Administration PAIN SCALE 1-3 (mild Amlodipine Besylate 10 mg 05/04/25 09:00 05/06/25 08:18 Amlodipine Besylate 5 Mg Tablet GT 06/03/25 08:59 10 mg QDAY IMANI Administration Aspirin 81 mg 04/27/25 09:00 05/06/25 08:18 Aspirin 81 Mg Chew GT 05/27/25 08:59 81 mg QDAY IMANI Administration Dextrose 25 ml 04/27/25 03:37 Dextrose 50%-Water Inj 50 Ml Syringe IV 05/27/25 03:36 Q15MIN PRN BG 50-70 responsive npo pt Dextrose 50 ml 04/27/25 03:37 Dextrose 50%-Water Inj 50 Ml Syringe IV 05/27/25 03:36 Q15MIN PRN BG <50 OR BG <70 & pt unresponsive Glucagon 1 mg 04/27/25 03:37 Glucagon Inj 1 Mg Vial IM Q15MIN PRN BG <70, and no IV access Heparin Sodium (Porcine) 5,000 unit 04/27/25 06:00 05/03/25 05:36 Heparin Sod Inj 5000 Unit/Ml Vial SC 05/11/25 05:59 Not Given Q8HR IMANI Heparin Sodium (Porcine) 3,000 unit 04/30/25 11:01 05/03/25 11:49 Heparin Sod Inj 1000 Unit/Ml Vial 10 Ml INDWELLCAT 05/14/25 11:00 3,000 unit PRN PRN Administration DIALYSIS Piperacillin/Tazobactam/Dextrose 3.375 gm in 50 mls @ 12.5 mls/hr 04/30/25 22:00 05/06/25 05:22 Zosyn IV 05/07/25 21:59 12.5 mls/hr Q8HR IMANI Administration Insulin Degludec 22 unit 05/01/25 21:00 05/05/25 21:03 Insulin Degludec 5 Unit/0.05 Ml (Per 5 Units) SC 05/31/25 20:59 22 unit HS IMANI Administration Insulin Human Lispro 0 unit 04/27/25 06:00 05/06/25 05:24 Insulin Lispro (Admelog) 1 Unit/0.01 Ml Unit SC 05/27/25 05:59 Not Given Q6HR [facility] Protocol Magnesium Hydroxide 30 ml 04/27/25 03:11 Milk Of Magnesia Susp 30 Ml Udc PO 05/27/25 03:10 QDAY PRN CONSTIPATION Metoclopramide HCl 5 mg 05/04/25 00:00 05/06/25 05:23 Metoclopramide Inj 5 Mg/Ml Vial 2 Ml IVP 06/03/25 00:00 5 mg Q6HR IMANI Administration Protocol Midodrine 10 mg 05/02/25 10:45 05/06/25 05:24 Midodrine 5 Mg Tablet PO 06/01/25 10:44 Not Given TID IMANI Plan Kwadwo Sanchez is a 80-year-old male with significant past medical history of CVA s/p trach/PEG tube, chronic hypoxic respiratory failure, MRSA pneumonia, Pseudomonas UTI, MRSA bacteremia, sacral ulcer, IDDM type II, hypertension, hyperlipidemia, vertebral osteomyelitis, acute pancreatitis, calculus cholelithiasis, MARGARETTE requiring hemodialysis in the past, and decubitus ulcers brought in by [facility] by the [facility] at [place] with chief complaint of fever for past 2 days. Patient was admitted to ICU for further management of septic shock secondary to pneumonia and UTI; Downgraded from ICU no longer needing pressors; continuing to manage unresolved sepsis, pending SNF staff availability. #Sepsis 2/2 #Healthcare associated pneumonia Vs Severe UTI #S/p chronic tracheostomy #Leukocytosis Patient presented with fever, tachycardia, white count of 28 and RR 29, lactic acid 2.2, and requiring pressure support. The patient only received 1 L of normal saline initially (fluid overloaded). Chest x-ray revealed bilateral pneumonia, UA revealed 3+ blood, 1.8k RBC's, 1.9k WBC's. Blood cultures no growth. CT A/P 05/02 along with residuals from PEG tube makes aspiration pneumonia another ddx. - GI will place PEG tube with gastric/jejunostomy port when it arrives; can be done outpatient - Continuing zosyn. - Midodrine 10mg TID as needed if MAP < 65 and SBP <100 - WBC's improving, will continue to monitor #MARGARETTE, improving Likely prerenal leading to ATN secondary to sepsis Presented with creatinine of 1.5, baseline creatinine about 0.7-0.8 Patient appears to produce low urine output as of now - Hospital Receptionist, Dr. Jensen is consulted, HD 04/30, 05/01, 05/03 via R femoral line. - Monitor renal panel, renally dose medications and avoid nephrotoxins #Hyponatremia, resolving Possibly due to renal failure, CHF, cirrhosis The patient presented with sodium of 117, but corrected sodium was 123 --> 05/01, 126 - Will continue to monitor sodium levels - Hospital Receptionist, Dr. Jensen is consulted, appreciate recommendations. #Right heart failure and moderate pulmonary hypertension Patient appears to have anasarca, also noted to have mild hypoalbuminemia Echo on 04/27 - showed right ventricular volume/pressure overload, mild to moderate TR, RVSP elevated at 40 to 45 mmHg. EF is 55 to 60% - Will require cardiac catheterization after discharge to categorize pulmonary hypertension and needs treatment accordingly. #Hypertension, well controlled - Using Amlodipine 10mg every day and will Hold medications for now. #Insulin-dependent diabetes mellitus type 2 - Started on insulin degludec 13 units daily at night, increased to 18 units, adjusted to 22 units as of 05/01 based on blood sugars on morning labs - Sliding scale insulin lispro every 6 hourly with fingerstick blood sugar checks - A1c ordered - 10.5 #Microcytic anemia Likely 2/2 anemia of chronic disease, but could not rule out other differentials like nutritional deficiency - Iron panel, ferritin, folic acid, vitamin B12, reticulocyte count, peripheral smear and LDH ordered - showed iron deficiency - Will supplement iron once the infection is resolved - Daily a.m. 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 De La Fuente & resident physician Dr. Denisa Méndez MD PGY-1 Attending Provider Attestation/Addendum I reviewed labs, imaging, EKG, home medications and prior available records. Face to face evaluation was performed by me. I have personally examined the patient and discussed assessment and plan with the IM team. I reviewed the resident note and agree with the plan with exceptions as below. Chronic hypoxic respiratory failure CVA status post trach and PEG Septic shock, secondary to urinary versus pulmonary source Hyponatremia MARGARETTE Type 2 diabetes mellitus He is off pressors Continue Zosyn for 7 days per ID recommendations Ordered CT of the chest, abdomen, and pelvis that showed bibasilar pneumonia with possible aspiration pneumonia. Possible SBO. Ordered CT Gastrografin study Consulted GI: Recommended no PEG tube exchange. May perform GJ tube insertion which can be done at the rehab Trend WBC: Downtrending Continue aspirin He is off hemodialysis. Removed Vas-Cath Monitor kidney function. Outpatient follow-up with nephrology Monitor sodium level Held subcutaneous heparin secondary to thigh hematoma [facility] is short staffed. Will keep the patient until they are able to take him
--- NOTE | 2025-05-06 11:34 | PC.SS ---
GENERAL LEDGER BOOKKEEPER confirmed with resident that patient will not discharge with IV antibiotics patient has been transitioned to P.O. form. GENERAL LEDGER BOOKKEEPER updated facility via [employer].
--- NOTE | 2025-05-06 11:44 | PC.SS ---
PASSR completed. Meets Level I criteria. No PASSR follow up required.
--- NOTE | 2025-05-06 17:11 | ESPR_ITS ---
Documentation for date of: 05/06/25 Subjective Subjective Interval history: Patient evaluated gastrostomy working very well Exam Vital Signs Temp Pulse Resp BP Pulse Ox O2 Del Method O2 Flow Rate 97.0 F 97 25 H 119/72 97 Mechanical Ventilation 05/06/25 16:00 05/06/25 16:00 05/06/25 16:00 05/06/25 16:00 05/06/25 16:00 05/06/25 16:00 05/06/25 16:00 FiO2 30 05/06/25 16:00 Objective Labs 05/06/25 05:35 05/06/25 05:35 Labs: Laboratory Results - last 24 hr 05/06/25 05:35 WBC 15.7 H RBC 3.31 L Hgb 8.2 L Hct 25.6 L MCV 77 L MCH 24.8 L MCHC 32.0 RDW Std Deviation 59.7 H Plt Count 230 D Neut % (Auto) 79 Lymph % (Auto) 9 L [place] % (Auto) 5 Eos % (Auto) 4 Baso % (Auto) 0 Neut # (Auto) 12.4 H Lymph # (Auto) 1.4 [place] # (Auto) 0.8 Eos # (Auto) 0.6 H Baso # (Auto) 0.1 Immature Gran # (Auto) 0.33 H Absolute Nucleated RBC 0.04 H Immature Gran % 2 H Nucleated RBC % 0 Sodium 137 Potassium 4.6 Chloride 99 Carbon Dioxide 27.6 Anion Gap 10 BUN 23 Creatinine 0.8 Estim Creat Clear Calc 104.6 eGFR > 60 BUN/Creatinine Ratio 29 H Glucose 152 H Calculated Osmolality 280 Calcium 9.6 Corrected Calcium 10.3 H Phosphorus 4.2 Magnesium 1.5 L Total Bilirubin 0.5 AST 36 H ALT 17 Alkaline Phosphatase 113 Total Protein 6.5 Albumin 3.1 L Globulin 3.4 Albumin/Globulin Ratio 0.9 L Impressions Impression: Well-functioning gastrostomy tube outpatient gastrostomy/jejunostomy Tube with a double port ABG Interpretation ABG results: 04/27/25 04/27/25 04/27/25 02:12 07:39 09:19 ABG pH 7.30 L 7.18 L* D 7.24 L ABG pCO2 41 53 H D 44 ABG pO2 99 98 110 H ABG HCO3 20 20 19 L ABG O2 Saturation 98 98 99 H ABG Base Excess -6 L -9 L -8 L 04/27/25 04/28/25 04/30/25 12:15 04:10 04:21 ABG pH 7.28 L 7.34 L 7.26 L ABG pCO2 39 36 46 D ABG pO2 135 H D 111 H D 66 L D ABG HCO3 18 L 19 L 20 ABG O2 Saturation 100 H 99 H 93 ABG Base Excess -8 L -6 L -6 L 04/30/25 05/01/25 16:15 04:07 ABG pH 7.31 L 7.30 L ABG pCO2 43 50 H ABG pO2 69 L 64 L ABG HCO3 22 25 ABG O2 Saturation 94 93 ABG Base Excess -4 L -2 Assessment & Plan A&P Narrative Malfunctioning PEG tube with no gastric residual issues at the moment Reglan 5 mg IV push every 6 hours Will order a tube with the gastric port and the jejunostomy port and when it arrives I will replace his tube either here or in the SNF The gastrostomy port can be used for meds and the jejunostomy port can be used for feeding the patient Thank you very much for the opportunity to participate in care of this patient Time Spent With Patient Time: Total time spent is greater than 50% in coordination of care (as documented) at patient's floor/unit and/or counseling patient:
[2025-05-06] MEDS: INSULIN LISPRO (AdmeLOG) 1 UNIT/0.01 ML UNIT SC ×2 (17:55→23:45)
[2025-05-06] MEDS: INSULIN DEGLUDEC 5 UNIT/0.05 ML (PER 5 UNITS) 22 UNIT SC (21:11)
[2025-05-07] VITALS (17 sets, daily range): BP systolic 94–164; BP diastolic 54–97; PULSE 95–120; RESP 18–26; TEMP 36.2–38.6; O2SAT 93–99
[2025-05-07] MEDS: METOCLOPRAMIDE INJ 5 MG/ML VIAL 2 ML IVP (05:35)
[2025-05-07] MEDS: PIPER/TAZO 3.375 GM PREMIX 3.375 GM/50 ML BAG IV ×3 (05:36→22:38)
[2025-05-07 07:50] LABS: Alanine Aminotransferase 38 U/L (10-49); Albumin, Serum 3.3 gm/dL (3.4-4.8); Albumin/Globulin Ratio 0.9 (1.2-2.2); Alkaline Phosphatase 136 U/L (46-116); Anion Gap 10 (7-16); Aspartate Amino Transferase 77 U/L (0-34); BUN/Creatinine Ratio 29 Ratio (12-20); Bilirubin,Total 0.9 mg/dL (0.3-1.2); Blood Urea Nitrogen 20 mg/dL (9-23); Calcium 9.7 mg/dL (8.3-10.6); Calcium (Corrected) 10.3 mg/dL (8.5-10.1); Carbon Dioxide 29.0 mMol/L (20.0-31.0); Chloride 98 mMol/L (98-107); Creatinine (Component) 0.7 mg/dL (0.6-1.3); Estimated Creatinine Clearance 119.5 mL/min (>60); Globulin 3.8 gm/dL (2.3-3.5); Glucose 199 mg/dL (74-106); Magnesium 1.4 mg/dL (1.6-2.6); Osmolality,Calculated 282 (275-295); Phosphorous 3.9 mg/dL (2.4-5.1); Potassium 5.0 mMol/L (3.4-5.1); Sodium 137 mMol/L (136-145); Total Protein 7.1 gm/dL (5.7-8.2); eGFR > 60 See Note
[2025-05-07 07:54] LABS: Basophils # (Auto) 0.1 Thou/mm3 (0.0-0.2); Basophils % (Auto) 0 % (0-2.5); Eosinophils # (Auto) 0.2 Thou/mm3 (0.0-0.5); Eosinophils % (Auto) 1 % (0-10); Hematocrit 29.9 % (41.0-53.0); Hemoglobin 9.5 g/dL (13.5-16.0); Immature Granulocytes Auto 0.19 Thou/mm3 (0.00-0.00); Lymphocytes # (Auto) 1.1 Thou/mm3 (1.0-4.8); Lymphocytes % (Auto) 6 % (10-50); Mean Corpuscular HGB Conc 31.8 g/dl (31.0-37.0); Mean Corpuscular Hemoglobin 24.8 pg (25.0-35.0); Mean Corpuscular Volume 78 fL (80-100); Monocytes # (Auto) 0.8 Thou/mm3 (0.0-0.8); Monocytes % (Auto) 4 % (0-12); Neutrophils # (Auto) 17.6 Thou/mm3 (1.8-7.7); Neutrophils % (Auto) 88 % (37-80); Nucleated Red Blood Cell # 0.02 Thou/mm3 (0.00-0.00); Nucleated Red Blood Cell % 0 /100 WBC (0); Platelet Count 241 Thou/mm3 (140-440); RDW Standard Deviation 60.8 fL (35.1-43.9); Red Blood Count 3.83 Miln/mm3 (4.50-5.90); White Blood Count 19.9 Thou/mm3 (3.8-10.6)
[2025-05-07] MEDS: Magnesium Sulfate 2 GM Ivpb 2 GM/50 ML BAG IV ×2 (08:37→10:18)
[2025-05-07] MEDS: ASPIRIN 81 MG CHEW GT (08:40)
--- NOTE | 2025-05-07 09:06 | PC.SS ---
SS reached out to [facility] [place], SS spoke to Stephanie COKER, who stated due to holiday, their SW and admissions team is not there and they are unsure if they can accept pt today. SS left call back information for their team to reach out if they can accept today.
[2025-05-07] MEDS: ACETAMINOPHEN 500 MG TABLET 1000 MG PO (09:45)
--- NOTE | 2025-05-07 10:54 | EVENTNT_ITS ---
Documentation for date of: 05/07/25
--- NOTE | 2025-05-07 10:54 | ESPR_ITS ---
Subjective Subjective Interval history: events noted. rx as ordered. primary team must feel the coag neg is a player. I do not. Exam Vital Signs Temp Pulse Resp BP Pulse Ox O2 Del Method O2 Flow Rate 101.4 F H 119 H 26 H 135/80 H 93 L Mechanical Ventilation 30 05/07/25 09:45 05/07/25 08:37 05/07/25 08:00 05/07/25 08:37 05/07/25 08:00 05/07/25 08:00 05/06/25 16:00 FiO2 30 05/07/25 08:00 Narrative Exam not seen. will see again prn Objective - Internal Medicine Labs 05/07/25 06:41 05/07/25 06:41 Labs: Laboratory Results - last 24 hr 05/07/25 06:41 WBC 19.9 H RBC 3.83 L Hgb 9.5 L Hct 29.9 L MCV 78 L MCH 24.8 L MCHC 31.8 RDW Std Deviation 60.8 H Plt Count 241 Neut % (Auto) 88 H Lymph % (Auto) 6 L [place] % (Auto) 4 Eos % (Auto) 1 Baso % (Auto) 0 Neut # (Auto) 17.6 H Lymph # (Auto) 1.1 [place] # (Auto) 0.8 Eos # (Auto) 0.2 Baso # (Auto) 0.1 Immature Gran # (Auto) 0.19 H Absolute Nucleated RBC 0.02 H Immature Gran % 1 H Nucleated RBC % 0 Sodium 137 Potassium 5.0 Chloride 98 Carbon Dioxide 29.0 Anion Gap 10 BUN 20 Creatinine 0.7 Estim Creat Clear Calc 119.5 eGFR > 60 BUN/Creatinine Ratio 29 H Glucose 199 H Calculated Osmolality 282 Calcium 9.7 Corrected Calcium 10.3 H Phosphorus 3.9 Magnesium 1.4 L Total Bilirubin 0.9 AST 77 H ALT 38 Alkaline Phosphatase 136 H D Total Protein 7.1 Albumin 3.3 L Globulin 3.8 H Albumin/Globulin Ratio 0.9 L ABG Interpretation ABG results: 04/27/25 04/27/25 04/27/25 02:12 07:39 09:19 ABG pH 7.30 L 7.18 L* D 7.24 L ABG pCO2 41 53 H D 44 ABG pO2 99 98 110 H ABG HCO3 20 20 19 L ABG O2 Saturation 98 98 99 H ABG Base Excess -6 L -9 L -8 L 04/27/25 04/28/25 04/30/25 12:15 04:10 04:21 ABG pH 7.28 L 7.34 L 7.26 L ABG pCO2 39 36 46 D ABG pO2 135 H D 111 H D 66 L D ABG HCO3 18 L 19 L 20 ABG O2 Saturation 100 H 99 H 93 ABG Base Excess -8 L -6 L -6 L 04/30/25 05/01/25 16:15 04:07 ABG pH 7.31 L 7.30 L ABG pCO2 43 50 H ABG pO2 69 L 64 L ABG HCO3 22 25 ABG O2 Saturation 94 93 ABG Base Excess -4 L -2 Assessment & Plan A&P Narrative finish 7d of zosyn. do not repeat cxr unless he is worse or for 4-6 weeks after the event. you have 4-5d to have a discussion about end of life as he is 80 and on a vent family needs to make some decisions. left on zosyn for now for the germs found, vanco use per primary team. so they can decide how long. pt remains a full code despite his condition. will see again prn Time Spent With Patient Time: Total time spent is greater than 50% in coordination of care (as documented) at patient's floor/unit and/or counseling patient:
--- NOTE | 2025-05-07 10:54 | PD.EVENT ---
Documentation for date of: 05/07/25
[2025-05-07] MEDS: Vancomycin Inj 2,000 MG in SODIUM CHLORIDE 0.9% 500 ML 500 ML 150 MG IV (11:27)
[2025-05-07] MEDS: INSULIN LISPRO (AdmeLOG) 1 UNIT/0.01 ML UNIT SC ×2 (11:32→17:51)
--- NOTE | 2025-05-07 12:00 | PC.SS ---
SS spoke to JEAN CLAUDE from [facility] [phone] who requested updates for pt. SS faxed them via XM to [phone]. [facility] inquired if pt still had a central line, as they would need for him to have IV access prior to DC.
--- NOTE | 2025-05-07 12:25 | XR_ITS ---
Examination: AP chest single view Technique: AP portable semiupright chest single view Date and time: May 07, 2025, 12:59 PM, comparison April 30, 2025 Indications: Fever, sepsis alert, significant pneumonia left base on chest x-ray 23/01/2025 Findings: Tracheostomy tube tip 7.9 cm above monica Mild enlargement cardiac contour. Pneumonia left base with significant left pleural fluid Moderate osteopenia Poor inspiration Impression: Pneumonia left base Consider ultrasound left hemithorax follow-up to confirm significant left pleural fluid
[2025-05-07 13:15] LABS: D-Dimer > 3820 ng/mL (<600)
--- NOTE | 2025-05-07 13:35 | PD.SURCONS ---
HPI Consult details History of present illness: 80M with HTN, HLD, DMII, CVA in past s/p trach/PEG, chronic decubitus ulcers admitted 04/27 with fever. Sputum culture grew multiple bacteria, urine cx appeared contaminated and there has been 1 blood culture growing staph epi while other blood cultures remain negative. Pt is currently on vanc/zosyn, had fever up to 101.4 this am and WBC 19 from 15 (though it was 41 a few days ago), general surgery consulted to evaluate sacral ulcers as potential source of fever RN has been changing dressings per wound care recs with alginate and allevyn. The ulcers did have some bleeding previously but this has improved. Pt is currently on tube feeds at 65cc/hr PMH: HTN, HLD, DMII, CVA, chronic decubitus ulcers PSHx: Trach, PEG, knee replacement Meds: includes midodrine and ASA 81mg, no other antiplt or anticoagulation Allergies: ACEi, ARBs Social hx: Nonambulatory, nonverbal at baseline Review of Systems Review of Systems ROS Unobtainable: unobtainable due to mental condition Meds Home Medications and Allergies Home Medications ?Medication ?Instructions ?Recorded ?Confirmed ?Type ascorbic acid (vitamin C) 500 mg 500 mg feeding tube BID 01/05/22 04/27/25 History tablet aspirin 81 mg chewable tablet 81 mg feeding tube QDAY 01/05/22 04/27/25 History cetirizine 10 mg tablet 10 mg feeding tube QDAY 01/05/22 04/27/25 History ezetimibe 10 mg tablet 10 mg feeding tube QPM 01/05/22 04/27/25 History melatonin 3 mg tablet 5 mg feeding tube HS 01/05/22 04/27/25 History multivitamin with minerals 15 ml feeding tube QDAY 01/05/22 04/27/25 History sodium phosphates 19 gram-7 118 ml [place] PRN PRN Constipation 01/05/22 04/27/25 History gram/118 mL enema (Fleet Enema) lactulose 10 gram/15 mL oral 20 g PO QDAY 08/14/22 04/27/25 History solution simethicone 80 mg chewable tablet 80 mg feeding tube BID 08/14/22 04/27/25 History bisacodyl 10 mg rectal suppository 10 mg KS EVERYOTHERDAY PRN bowel 11/27/22 04/27/25 History gabapentin 300 mg capsule 600 mg PO BID 11/27/22 04/27/25 History amlodipine 5 mg tablet 10 mg feeding tube QDAY 01/16/23 04/27/25 History Allergies Allergy/AdvReac Type Severity Reaction Status Date / Time NYLA Inhibitors AdvReac Severe Upper Verified 04/20/24 14:37 Airway Edema ARB-Angiotensin Receptor AdvReac Severe Upper Verified 04/20/24 14:37 Antagonist Airway Edema Exam Vital Signs Temp Pulse Resp BP Pulse Ox O2 Del Method O2 Flow Rate 100.4 F 98 26 H 135/80 H 98 Mechanical Ventilation 30 05/07/25 10:45 05/07/25 13:29 05/07/25 08:00 05/07/25 08:37 05/07/25 13:29 05/07/25 08:00 05/06/25 16:00 FiO2 30 05/07/25 13:29 Constitutional Constitutional: no acute distress Routine Respiratory Exam Respiratory: Present no resp distress Routine Skin Exam Comments: photos of decubitus ulcer that were taken this am by RN reviewed, showing no necrotic tissue, no purulence, no bleeding or erythema Results Results: Laboratory Laboratory results: results reviewed Results: Imaging Chest x-ray: image reviewed Assessment & Plan Plan 80M with HTN, HLD, DMII, CVA in past s/p trach/PEG, chronic decubitus ulcers admitted 04/27 with fever, with ongoing fever this am and WBC 19 from peak of 41. Pt's sacral decubitus ulcers are chronic and do not appear acutely infected based on pics from this am; as he was on tube feeds I opted not to turn him due to risk of aspiration. Wounds are being well-managed per decorating supervisor recs and do not require surgical intervention for now Please reconsult as needed
[2025-05-07] MEDS: MIDODRINE 5 MG TABLET 10 MG PO (13:40)
[2025-05-07] MEDS: MUPIROCIN OINT 2% 15 GM TUBE 2 GM TOP ×2 (13:43→22:41)
--- NOTE | 2025-05-07 13:46 | ESPR_ITS ---
<Statement entered by Brian Man MD - 05/07/25 14:52> Seen and examined at bedside. No acute overnight events. However, patient spiked fever of 101.4 ?F today and now tachycardic with uptrend in WBC from 15.7 to 19.9. Vancomycin added, repeat CXR shows left base pneumonia but now with possible effusion, and D-dimer elevated. Will evaluate with Doppler of LE and obtain MRI of lumbar and thoracic spine. General surgery evaluated wounds and no need for debridement at this time. ----- Note reviewed and agree with care plan as documented. Please refer to the note below for further details. Plan discussed with attending physician Dr. Sudhakar Man MD PGY-2 Internal Medicine Documentation for date of: 05/07/25 Subjective Subjective Interval history: Patient became tachycardic, tachypneic, and hypotensive overnight. Sacral wounds were being considered as a possible new source of infection. Surgery was consulted, does not recommend surgical debridement at this time. ID recommends continuing Zosyn. Primary team will start IV vancomycin today, mupirocin topically for the nares, and blood culture is ordered. D-Dimer >3820. MRI of thoracic and lumbar spine ordered. Exam Vital Signs Temp Pulse Resp BP Pulse Ox O2 Del Method O2 Flow Rate 100.4 F 98 26 H 135/80 H 98 Mechanical Ventilation 30 05/07/25 10:45 05/07/25 13:29 05/07/25 08:00 05/07/25 08:37 05/07/25 13:29 05/07/25 08:00 05/06/25 16:00 FiO2 30 05/07/25 13:29 Narrative Exam General: Obese, chronically ill-appearing man. Tracheostomy on mechanical ventilation. Does not respond to voice. Neurologic: Does not respond to verbal stimulation, unable to move extremities, persistent vegetative state. HEENT: Normocephalic, atraumatic, mucous membranes moist. Pupils reactive to light. Heart: Tachycardic, regular rhythm, normal S1 and S2, no murmurs. Lungs: Clear to auscultation bilaterally with no wheezing or crackles. Abdomen: Obese, firm, nontender, positive bowel sounds. Extremities: 3+ pitting edema below the knees bilaterally. Diffuse anasarca, 2+ radial and dorsalis pedis pulses bilaterally. Skin: Superficial sacral ulcer, grade 2 Objective Labs 05/08/25 06:18 05/07/25 06:41 Labs: Laboratory Results - last 24 hr 05/07/25 06:41 WBC 19.9 H RBC 3.83 L Hgb 9.5 L Hct 29.9 L MCV 78 L MCH 24.8 L MCHC 31.8 RDW Std Deviation 60.8 H Plt Count 241 Neut % (Auto) 88 H Lymph % (Auto) 6 L [place] % (Auto) 4 Eos % (Auto) 1 Baso % (Auto) 0 Neut # (Auto) 17.6 H Lymph # (Auto) 1.1 [place] # (Auto) 0.8 Eos # (Auto) 0.2 Baso # (Auto) 0.1 Immature Gran # (Auto) 0.19 H Absolute Nucleated RBC 0.02 H Immature Gran % 1 H Nucleated RBC % 0 D-Dimer > 3820 H Sodium 137 Potassium 5.0 Chloride 98 Carbon Dioxide 29.0 Anion Gap 10 BUN 20 Creatinine 0.7 Estim Creat Clear Calc 119.5 eGFR > 60 BUN/Creatinine Ratio 29 H Glucose 199 H Calculated Osmolality 282 Calcium 9.7 Corrected Calcium 10.3 H Phosphorus 3.9 Magnesium 1.4 L Total Bilirubin 0.9 AST 77 H ALT 38 Alkaline Phosphatase 136 H D Total Protein 7.1 Albumin 3.3 L Globulin 3.8 H Albumin/Globulin Ratio 0.9 L ABG Interpretation ABG results: 04/27/25 04/27/25 04/27/25 02:12 07:39 09:19 ABG pH 7.30 L 7.18 L* D 7.24 L ABG pCO2 41 53 H D 44 ABG pO2 99 98 110 H ABG HCO3 20 20 19 L ABG O2 Saturation 98 98 99 H ABG Base Excess -6 L -9 L -8 L 04/27/25 04/28/25 04/30/25 12:15 04:10 04:21 ABG pH 7.28 L 7.34 L 7.26 L ABG pCO2 39 36 46 D ABG pO2 135 H D 111 H D 66 L D ABG HCO3 18 L 19 L 20 ABG O2 Saturation 100 H 99 H 93 ABG Base Excess -8 L -6 L -6 L 04/30/25 05/01/25 16:15 04:07 ABG pH 7.31 L 7.30 L ABG pCO2 43 50 H ABG pO2 69 L 64 L ABG HCO3 22 25 ABG O2 Saturation 94 93 ABG Base Excess -4 L -2 Quality Measures Quality Measures VTE prophylaxis Advance care planning discussed with:: spouse Assessment & Plan Assessment Current Active Medications: Generic Name Dose Route Start Last Admin Trade Name Freq PRN Reason Stop Dose Admin Acetaminophen 650 mg 04/27/25 03:11 05/04/25 11:29 Acetaminophen 325 Mg Tablet PO 05/27/25 03:10 650 mg Q4HR PRN Administration PAIN SCALE 1-3 (mild Acetaminophen 1,000 mg 05/07/25 15:20 Acetaminophen 500 Mg Tablet PO 06/06/25 15:19 Q6HR PRN Fever >99.5 Amlodipine Besylate 10 mg 05/04/25 09:00 05/07/25 08:37 Amlodipine Besylate 5 Mg Tablet GT 06/03/25 08:59 10 mg QDAY IMANI Administration Aspirin 81 mg 04/27/25 09:00 05/07/25 08:40 Aspirin 81 Mg Chew GT 05/27/25 08:59 81 mg QDAY IMANI Administration Dextrose 50 ml 04/27/25 03:37 Dextrose 50%-Water Inj 50 Ml Syringe IV 05/27/25 03:36 Q15MIN PRN BG <50 OR BG <70 & pt unresponsive Glucagon 1 mg 04/27/25 03:37 Glucagon Inj 1 Mg Vial IM Q15MIN PRN BG <70, and no IV access Heparin Sodium (Porcine) 3,000 unit 04/30/25 11:01 05/03/25 11:49 Heparin Sod Inj 1000 Unit/Ml Vial 10 Ml INDWELLCAT 05/14/25 11:00 3,000 unit PRN PRN Administration DIALYSIS Piperacillin/Tazobactam/Dextrose 3.375 gm in 50 mls @ 12.5 mls/hr 04/30/25 22:00 05/07/25 05:36 Zosyn IV 05/07/25 21:59 12.5 mls/hr Q8HR IMANI Administration Vancomycin HCl 2,000 mg/ 500 mls @ 150 mls/hr 05/07/25 10:45 05/07/25 11:27 Sodium Chloride IV 05/07/25 14:04 10 mg/min X1 ONE 150 mls/hr Administration 10 MG/MIN Vancomycin HCl 1,500 mg/ 500 mls @ 200 mls/hr 05/07/25 22:00 Sodium Chloride IV 05/14/25 21:59 Q12H IMANI 10 MG/MIN Insulin Degludec 22 unit 05/01/25 21:00 05/06/25 21:11 Insulin Degludec 5 Unit/0.05 Ml (Per 5 Units) SC 05/31/25 20:59 22 unit HS IMANI Administration Insulin Human Lispro 0 unit 04/27/25 06:00 05/07/25 11:32 Insulin Lispro (Admelog) 1 Unit/0.01 Ml Unit SC 05/27/25 05:59 1 unit Q6HR IMANI Administration Protocol Magnesium Hydroxide 30 ml 04/27/25 03:11 Milk Of Magnesia Susp 30 Ml Udc PO 05/27/25 03:10 QDAY PRN CONSTIPATION Metoclopramide HCl 5 mg 05/04/25 00:00 05/07/25 11:25 Metoclopramide Inj 5 Mg/Ml Vial 2 Ml IVP 06/03/25 00:00 Not Given Q6HR [facility] Protocol Midodrine 10 mg 05/02/25 10:45 05/07/25 05:37 Midodrine 5 Mg Tablet PO 06/01/25 10:44 Not Given TID [facility] Mupirocin 2 gm 05/07/25 14:00 Mupirocin Oint 2% 15 Gm Tube TOP 05/14/25 13:59 TID [facility] Pharmacy Consult 1 each 05/08/25 09:00 Vancomycin Pharmacy To Dose 1 Each Each IV 06/07/25 08:59 QDAY PRN PROTOCOL Plan Kwadwo Sanchez is a 80-year-old male with significant past medical history of CVA s/p trach/PEG tube, chronic hypoxic respiratory failure, MRSA pneumonia, Pseudomonas UTI, MRSA bacteremia, sacral ulcer, IDDM type II, hypertension, hyperlipidemia, vertebral osteomyelitis, acute pancreatitis, calculus cholelithiasis, MARGARETTE requiring hemodialysis in the past, and decubitus ulcers brought in by [facility] by the [facility] [place] with chief complaint of fever for past 2 days. Patient was admitted to ICU for further management of septic shock secondary to pneumonia and UTI; Downgraded from ICU no longer needing pressors; continuing to manage unresolved sepsis, pending SNF staff availability. #Sepsis 2/2 #Healthcare associated pneumonia Vs Severe UTI #S/p chronic tracheostomy #Leukocytosis Patient presented with fever, tachycardia, white count of 28 and RR 29, lactic acid 2.2, and requiring pressure support. The patient only received 1 L of normal saline initially (fluid overloaded). Chest x-ray revealed bilateral pneumonia, UA revealed 3+ blood, 1.8k RBC's, 1.9k WBC's. Blood cultures no growth. CT A/P 05/02 along with residuals from PEG tube makes aspiration pneumonia another ddx. Suspicion remains for unidentified source of infection due to patient's fever, hypotension, and tachycardia Plan: - MRI of thoracic and lumbar spine with contrast ordered to rule out spinal epidural abscess as potential source of infection - General surgery does not recommend surgical debridement of sacral wounds at this time - GI will place PEG tube with gastric/jejunostomy port when it arrives; can be done outpatient - Continuing zosyn. - Start vancomycin 05/07/2025 - Start mupirocin topical for MRSA in the nares 05/07/2025 - Blood culture ordered 05/07/2025 - Midodrine 10mg TID as needed if MAP < 65 and SBP <100 - WBC's uptrending, will continue to monitor #MARGARETTE, improving Likely prerenal leading to ATN secondary to sepsis Presented with creatinine of 1.5, baseline creatinine about 0.7-0.8 Patient appears to produce low urine output as of now Plan: - In [facility], Dr. Jensen is consulted, HD 04/30, 05/01, 05/03 via R femoral line. - Monitor renal panel, renally dose medications and avoid nephrotoxins #Hyponatremia, resolving Possibly due to renal failure, CHF, cirrhosis The patient presented with sodium of 117, but corrected sodium was 123 --> 05/01, 126 Na 137 on 05/07/2025 Plan: - Will continue to monitor sodium levels - In [facility], Dr. Jensen is consulted, appreciate recommendations. #Right heart failure and moderate pulmonary hypertension Patient appears to have anasarca, also noted to have mild hypoalbuminemia Echo on 04/27 - showed right ventricular volume/pressure overload, mild to moderate TR, RVSP elevated at 40 to 45 mmHg. EF is 55 to 60% Plan: - Will require cardiac catheterization after discharge to categorize pulmonary hypertension and needs treatment accordingly. #Hypertension, well controlled - Using Amlodipine 10mg every day and will Hold medications for now. #Insulin-dependent diabetes mellitus type 2 - Started on insulin degludec 13 units daily at night, increased to 18 units, adjusted to 22 units as of 05/01 based on blood sugars on morning labs - Sliding scale insulin lispro every 6 hourly with fingerstick blood sugar checks - A1c ordered - 10.5 #Microcytic anemia Likely 2/2 anemia of chronic disease, but could not rule out other differentials like nutritional deficiency - Iron panel, ferritin, folic acid, vitamin B12, reticulocyte count, peripheral smear and LDH ordered - showed iron deficiency - Will supplement iron once the infection is resolved - Daily a.m. 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 De La Fuente. Chase Polk DO PGY-1. Attending Provider Attestation/Addendum reviewed labs, imaging, EKG, home medications and prior available records. Face to face evaluation was performed by me. I have personally examined the patient and discussed assessment and plan with the IM team. I reviewed the resident note and agree with the plan with exceptions as below. Chronic hypoxic respiratory failure CVA status post trach and PEG Septic shock, secondary to urinary versus pulmonary source Hyponatremia MARGARETTE Type 2 diabetes mellitus Patient spiked a fever on the morning of 05/07. He was tachycardic. Added IV vancomycin. Repeated blood cultures Continue IV Zosyn He has significant decubitus ulcers. Consulted surgery who does not think it needs debridement Ordered spine MRI Ordered ultrasound of the lower extremities to rule out DVT Ordered CT of the chest, abdomen, and pelvis that showed bibasilar pneumonia with possible aspiration pneumonia. Possible SBO. Ordered CT Gastrografin study Consulted GI: Recommended no PEG tube exchange. May perform GJ tube insertion which can be done at the rehab Trend WBC: Downtrending Continue aspirin He is off hemodialysis. Removed Vas-Cath Monitor kidney function. Outpatient follow-up with nephrology Monitor sodium level
--- NOTE | 2025-05-07 14:20 | XR_ITS ---
Examination: Venous duplex lower extremity sonogram, bilateral. Date and time of exam: May 07, 2025 1654 hrs. Indications: Hypertension diabetes leg swelling, elevated d-dimer today Technique: Multiple sonographic images of the deep venous system have been obtained. B-mode/2-D grayscale imaging of vascular structures and Doppler spectral analysis (waveforms) and color performed Both legs are examined. Findings: Positive for nonocclusive DVT in both the right and left common femoral veins. Remaining deep venous systems bilaterally are open Impression: Positive for acute nonocclusive thrombus in the right and left common femoral veins.
--- NOTE | 2025-05-07 15:39 | PC.SS ---
Rounding: Pt on IV ABX, at least 2 more days before DC
[2025-05-07] MEDS: ENOXAPARIN SOD INJ 40 MG/0.4 ML SYRINGE SC (16:17)
[2025-05-07 17:56] LABS: Ferritin 175 ng/mL (10.5-307.3)
--- NOTE | 2025-05-07 18:38 | ESPR_ITS ---
Documentation for date of: 05/07/25 Subjective Subjective Interval history: Patient evaluated PEG tube working very well Exam Vital Signs Temp Pulse Resp BP Pulse Ox O2 Del Method O2 Flow Rate 100.4 F 101 H 22 H 94/54 L 98 Mechanical Ventilation 30 05/07/25 12:00 05/07/25 16:00 05/07/25 12:00 05/07/25 13:40 05/07/25 13:29 05/07/25 12:00 05/06/25 16:00 FiO2 30 05/07/25 16:00 Objective Labs 05/07/25 06:41 05/07/25 06:41 Labs: Laboratory Results - last 24 hr 05/07/25 06:41 WBC 19.9 H RBC 3.83 L Hgb 9.5 L Hct 29.9 L MCV 78 L MCH 24.8 L MCHC 31.8 RDW Std Deviation 60.8 H Plt Count 241 Neut % (Auto) 88 H Lymph % (Auto) 6 L [place] % (Auto) 4 Eos % (Auto) 1 Baso % (Auto) 0 Neut # (Auto) 17.6 H Lymph # (Auto) 1.1 [place] # (Auto) 0.8 Eos # (Auto) 0.2 Baso # (Auto) 0.1 Immature Gran # (Auto) 0.19 H Absolute Nucleated RBC 0.02 H Immature Gran % 1 H Nucleated RBC % 0 D-Dimer > 3820 H Sodium 137 Potassium 5.0 Chloride 98 Carbon Dioxide 29.0 Anion Gap 10 BUN 20 Creatinine 0.7 Estim Creat Clear Calc 119.5 eGFR > 60 BUN/Creatinine Ratio 29 H Glucose 199 H Calculated Osmolality 282 Calcium 9.7 Corrected Calcium 10.3 H Phosphorus 3.9 Magnesium 1.4 L Ferritin 175 Total Bilirubin 0.9 AST 77 H ALT 38 Alkaline Phosphatase 136 H D Total Protein 7.1 Albumin 3.3 L Globulin 3.8 H Albumin/Globulin Ratio 0.9 L Impressions Impression: Malfunctioning gastrostomy tube no gastric residue issues Aspiration is a risk We have a plan to do an outpatient gastrostomy jejunostomy tube ABG Interpretation ABG results: 04/27/25 04/27/25 04/27/25 02:12 07:39 09:19 ABG pH 7.30 L 7.18 L* D 7.24 L ABG pCO2 41 53 H D 44 ABG pO2 99 98 110 H ABG HCO3 20 20 19 L ABG O2 Saturation 98 98 99 H ABG Base Excess -6 L -9 L -8 L 04/27/25 04/28/25 04/30/25 12:15 04:10 04:21 ABG pH 7.28 L 7.34 L 7.26 L ABG pCO2 39 36 46 D ABG pO2 135 H D 111 H D 66 L D ABG HCO3 18 L 19 L 20 ABG O2 Saturation 100 H 99 H 93 ABG Base Excess -8 L -6 L -6 L 04/30/25 05/01/25 16:15 04:07 ABG pH 7.31 L 7.30 L ABG pCO2 43 50 H ABG pO2 69 L 64 L ABG HCO3 22 25 ABG O2 Saturation 94 93 ABG Base Excess -4 L -2 Assessment & Plan A&P Narrative finish 7d of zosyn. do not repeat cxr unless he is worse or for 4-6 weeks after the event. you have 4-5d to have a discussion about end of life as he is 80 and on a vent family needs to make some decisions. left on zosyn for now for the germs found, vanco use per primary team. so they can decide how long. pt remains a full code despite his condition. will see again prn Time Spent With Patient Time: Total time spent is greater than 50% in coordination of care (as documented) at patient's floor/unit and/or counseling patient:
[2025-05-07 19:29] LABS: Fibrinogen > 860 mg/dL (175-375)
[2025-05-07] MEDS: INSULIN DEGLUDEC 5 UNIT/0.05 ML (PER 5 UNITS) 22 UNIT SC (22:40)
[2025-05-07] MEDS: Vancomycin Inj 1,500 MG in SODIUM CHLORIDE 0.9% 500 ML 500 ML 200 MG IV (22:42)
[2025-05-08] VITALS (14 sets, daily range): BP systolic 100–150; BP diastolic 48–80; PULSE 89–113; RESP 18–23; TEMP 36.1–38.7; O2SAT 91–100; BMI 42.0
--- NOTE | 2025-05-08 | XR_ITS ---
Examination: MRI thoracic spine with intravenous contrast Technique: Multiple axial sagittal MR thoracic spine images post intravenous administration 20 cc gadolinium. Date and time: May 08, 2025 1910 hrs. Indications: Back pain fever today sepsis clinical diagnosis epidural abscess Findings: Satisfactory alignment thoracic vertebral bodies No thoracic fracture No abnormal osseous epidural thoracic cord enhancement. No localized enlargement thoracic aorta. No focal disc protrusion impinging upon the thoracic cord Impression: No abnormal osseous epidural or thoracic cord enhancement
--- NOTE | 2025-05-08 | XR_ITS ---
Examination: MRI lumbar spine with intravenous contrast Technique: MRI lumbar spine images sagittal axial post intravenous administration 20 cc gadolinium Date and time: May 08, 2025 1843 hrs. Indications: Fever attending last 2 days, sepsis, back pain Findings: Satisfactory alignment lumbar vertebral bodies Mild enhancement of the disc at the L3-L4 level, however, no enhancing epidural abscess extending into the thecal sac or compressing the cauda equina Advanced disc narrowing L1-L2, L2-L3 No lumbar fracture No abnormal osseous enhancement Impression: Suspicious for mild discitis at the L3-L4 level No epidural abscess noted
[2025-05-08] MEDS: ACETAMINOPHEN 325 MG TABLET 650 MG PO (00:14)
[2025-05-08] MEDS: METOCLOPRAMIDE INJ 5 MG/ML VIAL 2 ML IVP ×4 (00:14→18:21)
[2025-05-08] MEDS: INSULIN LISPRO (AdmeLOG) 1 UNIT/0.01 ML UNIT SC ×4 (00:24→18:21)
[2025-05-08] MEDS: MUPIROCIN OINT 2% 15 GM TUBE 2 GM TOP ×3 (05:28→21:22)
[2025-05-08] MEDS: PIPER/TAZO 3.375 GM PREMIX 3.375 GM/50 ML BAG IV ×3 (05:28→21:17)
[2025-05-08 06:49] LABS: Basophils # (Auto) 0.1 Thou/mm3 (0.0-0.2); Basophils % (Auto) 0 % (0-2.5); Eosinophils # (Auto) 0.5 Thou/mm3 (0.0-0.5); Eosinophils % (Auto) 3 % (0-10); Hematocrit 27.0 % (41.0-53.0); Immature Granulocytes Auto 0.17 Thou/mm3 (0.00-0.00); Lymphocytes # (Auto) 1.4 Thou/mm3 (1.0-4.8); Lymphocytes % (Auto) 7 % (10-50); Mean Corpuscular HGB Conc 31.1 g/dl (31.0-37.0); Mean Corpuscular Hemoglobin 24.6 pg (25.0-35.0); Mean Corpuscular Volume 79 fL (80-100); Monocytes # (Auto) 1.0 Thou/mm3 (0.0-0.8); Monocytes % (Auto) 5 % (0-12); Neutrophils # (Auto) 16.8 Thou/mm3 (1.8-7.7); Neutrophils % (Auto) 85 % (37-80); Nucleated Red Blood Cell # 0.00 Thou/mm3 (0.00-0.00); Nucleated Red Blood Cell % 0 /100 WBC (0); Platelet Count 254 Thou/mm3 (140-440); RDW Standard Deviation 62.0 fL (35.1-43.9); Red Blood Count 3.42 Miln/mm3 (4.50-5.90); White Blood Count 19.8 Thou/mm3 (3.8-10.6)
[2025-05-08 06:54] LABS: Hemoglobin 8.4 g/dL (13.5-16.0)
[2025-05-08 07:05] LABS: Magnesium 1.6 mg/dL (1.6-2.6)
[2025-05-08] MEDS: Magnesium Sulfate 2 GM Ivpb 2 GM/50 ML BAG IV (09:18)
[2025-05-08] MEDS: Vancomycin Inj 1,500 MG in SODIUM CHLORIDE 0.9% 500 ML 500 ML 200 MG IV (09:19)
[2025-05-08] MEDS: ASPIRIN 81 MG CHEW GT (09:20)
[2025-05-08] MEDS: ENOXAPARIN SOD INJ 40 MG/0.4 ML SYRINGE SC (09:21)
--- NOTE | 2025-05-08 09:39 | PC.SS ---
SS follow up note; Patient had fever and worsening leukocytosis yesterday, Patient will discharge back to [facility] the [facility] when medically cleared.
--- NOTE | 2025-05-08 09:59 | ESPR_ITS ---
Documentation for date of: 05/08/25 Subjective Subjective Interval history: Interval history: Mr Sanchez is a 80-year-old male with significant past medical history of CVA s/p trach/PEG tube, chronic hypoxic respiratory failure, MRSA pneumonia, Pseudomonas UTI, MRSA bacteremia, sacral ulcer, IDDM type II, hypertension, hyperlipidemia, vertebral osteomyelitis, acute pancreatitis, calculus cholelithiasis, MARGARETTE requiring hemodialysis in the past, and decubitus ulcers brought in by [facility] [place] by the [facility] [place] with chief complaint of fever for past 2 days. As per nursing facility staff, the patient is nonverbal at baseline with GCS score is 5, and they provided a note to rule out sepsis. The at bedside is a poor historian, and believe that the patient still interacts with her. Initially in the ED her vitals were BP 128/58, pulse 123, RR 29, temperature 100.9, saturating 100% on 40 L FiO2 via tracheostomy tube. Labs are significant for white count of 28.6, hemoglobin 8.2, MCV 74, platelet 368, ESR 102, D-dimer greater than 3820, ABG revealed pH 7.30, pCO2 41, sodium 117 with corrected sodium for hyperglycemia is 123, potassium 4.1, chloride 87, bicarb 19.9, anion gap 10, BUN/creatinine 36/1.5, GFR 47, blood sugar 299, lactic acid 2.2, magnesium 2.0, T. bili 1.8, direct bilirubin 1.4, AST/ALT/ALP 71/47/229, troponin less than 0.020, CRP greater than 10.0, BNP 138, albumin 3.2, Pro-Tevin 2.28, UA revealed dark yellow urine, turbid, 2+ protein, 3+ blood, leukocyte esterase positive, RBC 1847, WBC 1892, urine bacteria none. Chest x-ray revealed extensive bilateral pneumonia. PMH: As mentioned above SHX: Positive abdominal surgery, tracheostomy, gastrostomy and knee joint replacement Family history: Unobtainable Social history: He is , often comes to visit, others unobtainable Medications: To be reconciled Allergies: NYLA inhibitors, upper airway edema, ARB's for airway edema The patient was given 1 L of bolus normal saline in the ED, vancomycin and cefepime IV x 1, and he is MAP dropped down to less than 65, and was started on Levophed. The patient was admitted to ICU for further management of septic shock secondary to pneumonia and UTI. 04/27/2025: pt admitted to ICU, Nephrology consulted patient seen and examined in ICU pt on pressors, pt is unresponsive to voice and pain, Pupils are fixed and non responsive to light. pt has sacral wounds being examined by wound nurse divya. pt appears hypervolemic on exam, BLE edematous. ICU managing fluids, Na 118, Cl 88, hco3 17, BUN 35, Cr 1.6, Serum Osm 257 UA with 2+ protein 3+ blood. Urine looks concentrated suspect hypervolemia hyponatremia, reccomend diuretics and albumin 04/28/2025: patient seen and examined in the ICU. Pt opens eyes spontaneously. appears hypervolemic on exam with ELE and ELE with significant edema, ICU managing fluids, Na 120, K 3.7 Cl 88, CO2 17, BUN 42 from 35,Cr 1.8 from 1.6. suspect hypervolemic hyponatremia, reccomend trial of 40 IV lasix and IV albumin, bicitra, procrit epogen 10 000 04/29/2025: Patient examined at bedside in the ICU, remains bedbound on blood pressure support via trach. GCS 4T, patient is not following any commands at this time but does open eyes spontaneously. Hyponatremia improving slowly, will start salt tabs at this time and monitor sodium closely. Patient was given IV Lasix yesterday, with minimal improvement. He still appears significantly fluid overloaded, will give albumin for now. 04/30/2025: Patient seen and examined in the ICU, with trach, uop is minimal, german catheter was removed, straight cath q4h with bladder scans. L femoral catheter removed, Bcx pending, WBC elevated to 34, Na 122, BUN 46 from 31, Cr 2.2 from 2. query UTI, vs bacteremia. , HR 100s, BP normotensive. on exam pt has significant edema query whether pt is hypervolemic vs intravascularly down, recommend aldactone 50, given 1L LR per ICU. 05/01/2025: Patient seen and examined in the ICU, trach is midline wo crusting or oozing secretions minimal, straight cath q4 hr with 400 UOP, B cx GPC 1/2 tubes. WBC 31 from 34, pt appears volume overloaded on exam, lungs sounds difficult to appreciate given pt habitus, BUN 46, Cr 2.1 from 2.2. continues on vanc and zosyn. Plan for HD today with fluid removal. reccomend holding fluids today. BP 90s/40s. 05/02/2025 patient currently seen in telemetry. Moved out of ICU. Blood pressure still on the lower side. On midodrine. Hold dialysis today. Did receive 2 dialysis sessions. Yesterday his blood pressure dropped during dialysis. Labs/medications reviewed. No family around. 05/03/2025: Patient seen and examined in telemetry, continues on midodrine, mackay scattered ronchi bilaterally, eyes opening spontaneously, no hd today, BUN 22 from 28, Cr 1.5 from 1.6. rec Ltech for discharge, UPP 200 05/04/2025 Patient seen and examined in tele. His kidney function is improved, Cr 1.0 plan for german with strict i and o to monitor uop and assess for recovery of renal fxn. Nursing notified mds of c/f potential central line infection, biofilm with pus noted. 05/05/2025: Patient seen and examined in tele. measured UOP is 1200, Cr 0.9, renal function is recovering, fem central line was removed yesterday. On exam today his mucus membranes are dry, given IVF per primary team. CTM urine output and renal function. holding HD given suspected renal recovery. leukocytosis is downtrending, german bag with slighly blood tinged urine. 05/08/2025: Labs reviewed and patient examined at the bedside. BP: 150/79 Cr: 0.7 BUN: 20 Urine Output: 4180mL. Kidney improving and optimal urine output. No hemodialysis today. Exam Vital Signs Temp Pulse Resp BP Pulse Ox O2 Del Method O2 Flow Rate 99.0 F 105 H 18 150/79 H 99 Mechanical Ventilation 30 05/08/25 08:00 05/08/25 09:20 05/08/25 08:00 05/08/25 09:20 05/08/25 08:00 05/08/25 08:00 05/08/25 08:00 FiO2 50 05/08/25 08:00 Narrative Exam General: No acute distress, comatose, opening eyes spontaneously. HEENT: dry mucous membranes, oropharynx not assessed (contracted jaw) Neck: trach in place midline CVS: regular rate and rythm, +murmor , rubs or gallops Lungs: Mild rhonchi throughout the lung field, no wheezing, crackles or decreased breath sounds Abd: Soft, NT, slightly distended, +BS, +epigastric peg tube in place with no errythema crusting or drainage around tube. : german in place, draining well Ext: diffuse edema of upper and 2+ pitting of the lower extrem, warm and well perfused,s/p removal of fem cath Skin: Multiple stages of decubitus ulcers on buttoks and sacrum , L heel with 3cm bruise violacious, skin on dorsum of foot with increased skin pealing, very dry Neurologic: Unresponsive, unable to move any extremities. Objective Labs 05/08/25 06:18 05/07/25 06:41 Labs: Laboratory Results - last 24 hr 05/07/25 05/07/25 05/08/25 06:41 18:34 06:18 WBC 19.8 H RBC 3.42 L Hgb 8.4 L Hct 27.0 L MCV 79 L MCH 24.6 L MCHC 31.1 RDW Std Deviation 62.0 H Plt Count 254 Neut % (Auto) 85 H Lymph % (Auto) 7 L Haakon % (Auto) 5 Eos % (Auto) 3 Baso % (Auto) 0 Neut # (Auto) 16.8 H Lymph # (Auto) 1.4 Haakon # (Auto) 1.0 H Eos # (Auto) 0.5 Baso # (Auto) 0.1 Immature Gran # (Auto) 0.17 H Absolute Nucleated RBC 0.00 Immature Gran % 1 H Nucleated RBC % 0 Fibrinogen > 860 H* D-Dimer > 3820 H Magnesium 1.6 Ferritin 175 ABG Interpretation ABG results: 04/27/25 04/27/25 04/27/25 02:12 07:39 09:19 ABG pH 7.30 L 7.18 L* D 7.24 L ABG pCO2 41 53 H D 44 ABG pO2 99 98 110 H ABG HCO3 20 20 19 L ABG O2 Saturation 98 98 99 H ABG Base Excess -6 L -9 L -8 L 04/27/25 04/28/25 04/30/25 12:15 04:10 04:21 ABG pH 7.28 L 7.34 L 7.26 L ABG pCO2 39 36 46 D ABG pO2 135 H D 111 H D 66 L D ABG HCO3 18 L 19 L 20 ABG O2 Saturation 100 H 99 H 93 ABG Base Excess -8 L -6 L -6 L 04/30/25 05/01/25 16:15 04:07 ABG pH 7.31 L 7.30 L ABG pCO2 43 50 H ABG pO2 69 L 64 L ABG HCO3 22 25 ABG O2 Saturation 94 93 ABG Base Excess -4 L -2 Quality Measures Quality Measures VTE prophylaxis Advance care planning discussed with:: patient and other Assessment & Plan Assessment Current Active Medications: Generic Name Dose Route Start Last Admin Trade Name Freq PRN Reason Stop Dose Admin Acetaminophen 650 mg 04/27/25 03:11 05/08/25 00:14 Acetaminophen 325 Mg Tablet PO 05/27/25 03:10 650 mg Q4HR PRN Administration PAIN SCALE 1-3 (mild Acetaminophen 1,000 mg 05/07/25 15:20 Acetaminophen 500 Mg Tablet PO 06/06/25 15:19 Q6HR PRN Fever >99.5 Amlodipine Besylate 10 mg 05/04/25 09:00 05/08/25 09:20 Amlodipine Besylate 5 Mg Tablet GT 06/03/25 08:59 10 mg QDAY IMANI Administration Aspirin 81 mg 04/27/25 09:00 05/08/25 09:20 Aspirin 81 Mg Chew GT 05/27/25 08:59 81 mg QDAY IMANI Administration Dextrose 50 ml 04/27/25 03:37 Dextrose 50%-Water Inj 50 Ml Syringe IV 05/27/25 03:36 Q15MIN PRN BG <50 OR BG <70 & pt unresponsive Enoxaparin Sodium 40 mg 05/07/25 14:30 05/08/25 09:21 Enoxaparin Sod Inj 40 Mg/0.4 Ml Syringe SC 05/21/25 14:29 40 mg QDAY IMANI Administration Glucagon 1 mg 04/27/25 03:37 Glucagon Inj 1 Mg Vial IM Q15MIN PRN BG <70, and no IV access Heparin Sodium (Porcine) 3,000 unit 04/30/25 11:01 05/03/25 11:49 Heparin Sod Inj 1000 Unit/Ml Vial 10 Ml INDWELLCAT 05/14/25 11:00 3,000 unit PRN PRN Administration DIALYSIS Vancomycin HCl 1,500 mg/ 500 mls @ 200 mls/hr 05/07/25 22:00 05/08/25 09:19 Sodium Chloride IV 05/14/25 21:59 10 mg/min Q12H IMANI 200 mls/hr Administration Protocol 10 MG/MIN Piperacillin/Tazobactam/Dextrose 3.375 gm in 50 mls @ 12.5 mls/hr 05/07/25 22:00 05/08/25 05:28 Zosyn IV 05/14/25 21:59 12.5 mls/hr Q8HR IMANI Administration Insulin Degludec 22 unit 05/01/25 21:00 05/07/25 22:40 Insulin Degludec 5 Unit/0.05 Ml (Per 5 Units) SC 05/31/25 20:59 22 unit HS IMANI Administration Insulin Human Lispro 0 unit 04/27/25 06:00 05/08/25 05:47 Insulin Lispro (Admelog) 1 Unit/0.01 Ml Unit SC 05/27/25 05:59 1 unit Q6HR IMANI Administration Protocol Magnesium Hydroxide 30 ml 04/27/25 03:11 Milk Of Magnesia Susp 30 Ml Udc PO 05/27/25 03:10 QDAY PRN CONSTIPATION Metoclopramide HCl 5 mg 05/04/25 00:00 05/08/25 05:27 Metoclopramide Inj 5 Mg/Ml Vial 2 Ml IVP 06/03/25 00:00 5 mg Q6HR IMANI Administration Protocol Midodrine 10 mg 05/02/25 10:45 05/08/25 05:29 Midodrine 5 Mg Tablet PO 06/01/25 10:44 Not Given TID IMANI Mupirocin 2 gm 05/07/25 14:00 05/08/25 05:28 Mupirocin Oint 2% 15 Gm Tube TOP 05/14/25 13:59 2 gm TID IMANI Administration Pharmacy Consult 1 each 05/08/25 09:00 Vancomycin Pharmacy To Dose 1 Each Each IV 06/07/25 08:59 QDAY PRN PROTOCOL Plan Mr Sanchez is a 80-year-old gentleman with hx of CVA s/p trach/PEG tube, chronic hypoxic respiratory failure, MRSA pneumonia, Pseudomonas UTI, MRSA bacteremia, sacral ulcer, IDDM type II (poorl controlled A1c 10.5), hypertension, hyperlipidemia, vertebral osteomyelitis, hx of MARGARETTE requiring hemodialysis in the past, whose baseline mental status is GCS 5, admitted to ICU for septic shock 2/2 PNA vs UTI, requiring pressors and hyponatremia, with minimal UOP 280 ccs, trial lasix and albumin given suspicion of hypervolemic hyponatremia, now resolved. renal function may have recovered, strict i and o with german cath, fem line removed 2/2 c/f possible infection, holding hd given pt has improved renal function MARGARETTE-resolved nonnephrotic range proteinuria Likely prerenal secondary to sepsis, now resolved Presented with creatinine of 1.5, baseline creatinine about 0.7-0.8 Patient received 1 L of normal saline in the ED, given c/f worsening his hyponatremia, sepsis protocol resusitation was not initaited. given 1L LR in the ICU Urine Protein Cr ratio: 115: 53= 2.6 (nonnephrotic rage protienuria) - 05/01: Cr 2.1 from 2.2, BUN 45 from 46 (stable) BP 90s/40s, - 05/03: Cr 1.5 - 05/04: Cr 1.0 query recovery of renal function, will place german for 48 hrs to monitor uop - 05/05: Cr 0.9, UOP 1200, slighly blood tinged, appears volume down, mucus membranes dry on exam despite overall anasarca - 05/08: BP: 150/79 Cr: 0.7 BUN: 20 Urine Output: 4180mL No hemodialysis Plan: - daily CMP, Mg, Phos - Renally dose medications - Avoid nephrotoxins - strict i and o - cont german for 48 hrs - holding HD other medical problems 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 Due to concern of overcorrection of hyponatremia, full 30 cc/kg body fluid was not given. Bcx with staph epi CTAP repeat, with bibasilar pna pt with ?infected central fem line, was removed, reassured that wbc is downtrending Bilateral healthcare associated pneumonia Possible acute hypoxic respiratory failure 2/2 query aspiration pneumonia Severe UTI -on abx hypotension - on midodrine 5 mg TID sbp 150s - 160s Chronic respiratory failure 2/2 S/p CVA mech ventilation per trach tube, Nutrition per peg tube Microcytic anemia - likely dilutional given decrease in other cell lines, - give procrit 10 000 - iron deficiency, iron studies low, retic count elevated. Non-anion gap metabolic acidosis Insulin-dependent diabetes mellitus type 2 - A1c 10.5 Multistage decubitus ulcer HTN HLD - managment per primary team Assessment and plan discussed with my attending physician Dr. Camila Chadwick ([id number])- Internal medicine resident Attending Provider Attestation/Addendum Patient seen and examined with resident physician Dr. Chadwick. Note reviewed, agree with findings and recommendations. Spoke to -- Patient basically bedbound with status post trach and PEG for the last 5 years. Medications and labs reviewed. 05/08/2025 Clinically patient looks edematous-patient was given diuretics, IV fluids- ATN most likely- Creatinine markedly improved. In fact normalized. Patient making urine. Remove the Vas-Cath. Patient seems to have renal recovery. Hold off on dialysis. Dialysis catheter was removed. Recommended as needed diuretics. White count still elevated. On broad-spectrum antibiotics. Prognosis remains guarded. [facility] did not want [place] [facility]. Renal rollins no further recommendations. Will monitor closely.
--- NOTE | 2025-05-08 10:14 | ESPR_ITS ---
<Statement entered by Jatinder Bianchi MD - 05/09/25 08:16> Patient examined and case discussed with the team including attending physician. Note reviewed, I agree with the care plan as documented. Kwadwo Sanchez is a 80-year-old male downgraded from ICU after being treated for healthcare associated pneumonia in the setting of chronic tracheostomy. Patient continued to spike fevers during the hospitalization since the downgrade. Venous Duplex US on 05/08 positive for bilateral non-occlusive DVT, likely etiology. MRI thoracic and lumbar spine with contrast pending to rule out spinal epidural abscess. Plan: Cont vancomycin + Zosyn + Mupirocin top. F/u Blood cultures (ordered 05/07/2025). Continue Heparin Drip. Chest CT Angio pending to r/o pulmonary embolism Please refer to the note below for further details. - Jatinder Bianchi MD, PGY 3 Disclaimer: The document may contain phonetic/typographic errors due to voice recognition software. These errors are purely due to imperfections in the software program. Documentation for date of: 05/08/25 Subjective Subjective Interval history: 80 y/o male with extensive PMH including chronic respiratory failure, s/p tracheotomy, G-tube, in a chronic vegetative state. Patient had fever and worsening leukocytosis yesterday. Currently on Vanco and Zosyn. Venous ultrasound yesterday was positive for nonocclusive DVT in bilateral common femoral veins. Patient was seen by GI (Dr. Conner) yesterday, plans to do outpatient gastrostomy jejunostomy b/c of malfunctioning gastrostomy tune and aspiration risk. Overnight patient was tachycardic with HR over 110, O2 dropped to 91 at 4:00 am, no other acute overnight patients. Patient was seen at bedside today, unresponsive to voice and extremity manipulation/palpation, mild facial grimace to sternal rub. Exam Vital Signs Temp Pulse Resp BP Pulse Ox O2 Del Method O2 Flow Rate 99.0 F 105 H 18 150/79 H 99 Mechanical Ventilation 30 05/08/25 08:00 05/08/25 09:20 05/08/25 08:00 05/08/25 09:20 05/08/25 08:00 05/08/25 08:00 05/08/25 08:00 FiO2 50 05/08/25 08:00 Narrative Exam General: Obese, chronically ill-appearing man. Tracheostomy on mechanical ventilation. Not responsive to audible or visual stimulus. Neurologic: Unresponsive, unable to move any extremities. Did not open eyes HEENT: Normocephalic, atraumatic, mucous membranes moist. Heart: Tachycardic, regular rhythm, no murmurs, gallops, or rubs auscultated. Lungs: Clear to auscultation bilaterally with no wheezing or crackles. Abdomen: Obese, firm, nontender, decreased bowel sounds MSK/Extremities: 1+ pitting edema bilaterally lower extremity upto the knees. Equal peripheral pulses. Bilateral lower extremity nails turned black. Skin: Superficial sacral ulcer, grade 2 Objective Labs 05/09/25 04:27 05/09/25 04:27 Labs: Laboratory Results - last 24 hr 05/07/25 05/07/25 05/08/25 06:41 18:34 06:18 WBC 19.8 H RBC 3.42 L Hgb 8.4 L Hct 27.0 L MCV 79 L MCH 24.6 L MCHC 31.1 RDW Std Deviation 62.0 H Plt Count 254 Neut % (Auto) 85 H Lymph % (Auto) 7 L [place] % (Auto) 5 Eos % (Auto) 3 Baso % (Auto) 0 Neut # (Auto) 16.8 H Lymph # (Auto) 1.4 [place] # (Auto) 1.0 H Eos # (Auto) 0.5 Baso # (Auto) 0.1 Immature Gran # (Auto) 0.17 H Absolute Nucleated RBC 0.00 Immature Gran % 1 H Nucleated RBC % 0 Fibrinogen > 860 H* D-Dimer > 3820 H Magnesium 1.6 Ferritin 175 ABG Interpretation ABG results: 04/27/25 04/27/25 04/27/25 02:12 07:39 09:19 ABG pH 7.30 L 7.18 L* D 7.24 L ABG pCO2 41 53 H D 44 ABG pO2 99 98 110 H ABG HCO3 20 20 19 L ABG O2 Saturation 98 98 99 H ABG Base Excess -6 L -9 L -8 L 04/27/25 04/28/25 04/30/25 12:15 04:10 04:21 ABG pH 7.28 L 7.34 L 7.26 L ABG pCO2 39 36 46 D ABG pO2 135 H D 111 H D 66 L D ABG HCO3 18 L 19 L 20 ABG O2 Saturation 100 H 99 H 93 ABG Base Excess -8 L -6 L -6 L 04/30/25 05/01/25 16:15 04:07 ABG pH 7.31 L 7.30 L ABG pCO2 43 50 H ABG pO2 69 L 64 L ABG HCO3 22 25 ABG O2 Saturation 94 93 ABG Base Excess -4 L -2 Quality Measures Quality Measures VTE prophylaxis Advance care planning discussed with:: spouse Assessment & Plan Assessment Current Active Medications: Generic Name Dose Route Start Last Admin Trade Name Freq PRN Reason Stop Dose Admin Acetaminophen 650 mg 04/27/25 03:11 05/08/25 00:14 Acetaminophen 325 Mg Tablet PO 05/27/25 03:10 650 mg Q4HR PRN Administration PAIN SCALE 1-3 (mild Acetaminophen 1,000 mg 05/07/25 15:20 Acetaminophen 500 Mg Tablet PO 06/06/25 15:19 Q6HR PRN Fever >99.5 Amlodipine Besylate 10 mg 05/04/25 09:00 05/08/25 09:20 Amlodipine Besylate 5 Mg Tablet GT 06/03/25 08:59 10 mg QDAY IMANI Administration Aspirin 81 mg 04/27/25 09:00 05/08/25 09:20 Aspirin 81 Mg Chew GT 05/27/25 08:59 81 mg QDAY IMANI Administration Dextrose 50 ml 04/27/25 03:37 Dextrose 50%-Water Inj 50 Ml Syringe IV 05/27/25 03:36 Q15MIN PRN BG <50 OR BG <70 & pt unresponsive Enoxaparin Sodium 40 mg 05/07/25 14:30 05/08/25 09:21 Enoxaparin Sod Inj 40 Mg/0.4 Ml Syringe SC 05/21/25 14:29 40 mg QDAY IMANI Administration Glucagon 1 mg 04/27/25 03:37 Glucagon Inj 1 Mg Vial IM Q15MIN PRN BG <70, and no IV access Heparin Sodium (Porcine) 3,000 unit 04/30/25 11:01 05/03/25 11:49 Heparin Sod Inj 1000 Unit/Ml Vial 10 Ml INDWELLCAT 05/14/25 11:00 3,000 unit PRN PRN Administration DIALYSIS Vancomycin HCl 1,500 mg/ 500 mls @ 200 mls/hr 05/07/25 22:00 05/08/25 09:19 Sodium Chloride IV 05/14/25 21:59 10 mg/min Q12H IMANI 200 mls/hr Administration Protocol 10 MG/MIN Piperacillin/Tazobactam/Dextrose 3.375 gm in 50 mls @ 12.5 mls/hr 05/07/25 22:00 05/08/25 05:28 Zosyn IV 05/14/25 21:59 12.5 mls/hr Q8HR IMANI Administration Insulin Degludec 22 unit 05/01/25 21:00 05/07/25 22:40 Insulin Degludec 5 Unit/0.05 Ml (Per 5 Units) SC 05/31/25 20:59 22 unit HS IMANI Administration Insulin Human Lispro 0 unit 04/27/25 06:00 05/08/25 05:47 Insulin Lispro (Admelog) 1 Unit/0.01 Ml Unit SC 05/27/25 05:59 1 unit Q6HR [facility] Administration Protocol Magnesium Hydroxide 30 ml 04/27/25 03:11 Milk Of Magnesia Susp 30 Ml Udc PO 05/27/25 03:10 QDAY PRN CONSTIPATION Metoclopramide HCl 5 mg 05/04/25 00:00 05/08/25 05:27 Metoclopramide Inj 5 Mg/Ml Vial 2 Ml IVP 06/03/25 00:00 5 mg Q6HR [facility] Administration Protocol Midodrine 10 mg 05/02/25 10:45 05/08/25 05:29 Midodrine 5 Mg Tablet PO 06/01/25 10:44 Not Given TID [facility] Mupirocin 2 gm 05/07/25 14:00 05/08/25 05:28 Mupirocin Oint 2% 15 Gm Tube TOP 05/14/25 13:59 2 gm TID IMANI Administration Pharmacy Consult 1 each 05/08/25 09:00 Vancomycin Pharmacy To Dose 1 Each Each IV 06/07/25 08:59 QDAY PRN PROTOCOL Plan Kwadwo Sanchez is a 80-year-old male with significant past medical history of chronic respiratory failure s/p trach/PEG tube, chronic, MRSA pneumonia, Pseudomonas UTI, MRSA bacteremia, sacral ulcer, and several other chronic conditions. Patient was admitted to ICU for further management of septic shock secondary to pneumonia and UTI; Downgraded from ICU no longer needing pressors; continuing to manage unresolved sepsis, pending SNF staff availability. #Sepsis #Healthcare associated pneumonia Vs Severe UTI #S/p chronic tracheostomy #Leukocytosis SIRS criteria: 101.6 F, HR 109, RR 20, WBCs 19.8 (19.9 yesterday) and patient is on chronic mechanical ventilation Chest x-ray revealed bilateral pneumonia. Blood cultures no growth. CT A/P 05/02 along with residuals from PEG tube makes aspiration pneumonia another ddx. Suspicion remains for unidentified source of infection due to patient's fever, hypotension, and tachycardia Venous Duplex US positive for bilateral non-occlusive DVT: possible cause of leukocytosis and fever Plan: - MRI thoracic and lumbar spine with contrast pending to rule out spinal epidural abscess as potential source of infection - General surgery does not recommend surgical debridement of sacral wounds at this time - GI will place PEG tube with gastric/jejunostomy port outpatient - Cont zosyn. - Cont vancomycin (started on 05/07/2025) - Mupirocin topical for MRSA in the nares 05/07/2025 - Blood cultures pending (ordered 05/07/2025) - Midodrine 10mg TID as needed if MAP < 65 and SBP <100 - Cont monitoring WBCs #Acute DVT Bilatereal non-occlusive common femoral DVT on duplex US Could be the likely cause of new febrile episodes and leukocytosis Plan: - Heparin Drip started, d/c enoxaparin - Chest CT Angio pending to r/o pulmonary embolism #MARGARETTE, resolved/improving Likely prerenal leading to ATN secondary to sepsis Cr back at 0.7 (baseline) Plan: - Continue to monitor renal panel. - Avoid nephrotoxins - Nephrology recommends no dialysis #Hyponatremia, resolving Possibly due to renal failure, CHF, cirrhosis The patient presented with sodium of 117, but corrected sodium was 123 --> 05/01, 126 Na 137 on 05/07/2025 Plan: - Will continue to monitor sodium levels #Right heart failure and moderate pulmonary hypertension Patient appears to have anasarca, also noted to have mild hypoalbuminemia Echo on 04/27 - showed right ventricular volume/pressure overload, mild to moderate TR, RVSP elevated at 40 to 45 mmHg. EF is 55 to 60% Plan: - Outpatient cardiac cath post discharge to categorize pulmonary hypertension and needs treatment accordingly. - Due to patients other commodities, not a candidate for in-patient management of pulmonary hypertension. #Hypertension, well controlled - Using Amlodipine 10mg every day and will Hold medications for now. #Insulin-dependent diabetes mellitus type 2 - A1c: 10.5 - Started on insulin degludec 13 units daily at night, increased to 18 units, adjusted to 22 units as of 05/01 based on blood sugars on morning labs - Sliding scale insulin lispro every 6 hourly with fingerstick blood sugar checks #Microcytic anemia Likely 2/2 anemia of chronic disease, but could not rule out other differentials like nutritional deficiency - Iron panel, ferritin, folic acid, vitamin B12, reticulocyte count, peripheral smear and LDH ordered - showed iron deficiency - Daily a.m. 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 De La Fuente and my senior resident, Dr. Tash Brower, [facility] Attending Provider Attestation/Addendum reviewed labs, imaging, EKG, home medications and prior available records. Face to face evaluation was performed by me. I have personally examined the patient and discussed assessment and plan with the IM team. I reviewed the resident note and agree with the plan with exceptions as below. Chronic hypoxic respiratory failure CVA status post trach and PEG Septic shock, secondary to urinary versus pulmonary source Hyponatremia MARGARETTE Type 2 diabetes mellitus Patient spiked a fever on the morning of 05/07. He was tachycardic. Added IV vancomycin. Repeated blood cultures: Negative to date Continue IV Zosyn He has significant decubitus ulcers. Consulted surgery who does not think it needs debridement Ordered spine MRI Ordered ultrasound of the lower extremities: Showed acute DVT in bilateral femoral veins Ordered CTA of the chest to rule out PE Continue aspirin He is off hemodialysis. Removed Vas-Cath Monitor kidney function. Outpatient follow-up with nephrology Monitor sodium level
--- NOTE | 2025-05-08 10:39 | PC.SS ---
SS follow up note; Patient had fever and worsening leukocytosis yesterday, Patient will discharge back to [facility] when medically cleared.
[2025-05-08 12:21] LABS: INR 1.1 (0.9-1.3); Partial Thromboplastin Time 25.9 Seconds (22.0-36.0); Prothrombin Time 12.2 Seconds (9.0-12.2)
[2025-05-08] MEDS: HEPARIN SOD INJ 5000 UNIT/ML VIAL 8000 UNIT IV (13:31)
[2025-05-08] MEDS: Heparin/D5w 25K 250 ML Ivpb 25,000 UNIT/250 ML BAG 18 UNIT IV (13:32)
[2025-05-08 13:46] LABS: Albumin, Serum 3.0 gm/dL (3.4-4.8); Anion Gap 10 (7-16); BUN/Creatinine Ratio 32 Ratio (12-20); Blood Urea Nitrogen 29 mg/dL (9-23); Calcium 9.3 mg/dL (8.3-10.6); Calcium (Corrected) 10.1 mg/dL (8.5-10.1); Carbon Dioxide 27.9 mMol/L (20.0-31.0); Chloride 100 mMol/L (98-107); Creatinine (Component) 0.9 mg/dL (0.6-1.3); Estimated Creatinine Clearance 91.2 mL/min (>60); Glucose 176 mg/dL (74-106); Osmolality,Calculated 285 (275-295); Phosphorous 4.0 mg/dL (2.4-5.1); Potassium 4.8 mMol/L (3.4-5.1); Sodium 138 mMol/L (136-145); eGFR > 60 See Note
--- NOTE | 2025-05-08 18:49 | ESPR_ITS ---
Documentation for date of: 05/08/25 Subjective Subjective Interval history: No issues with the PEG tube at the moment Exam Vital Signs Temp Pulse Resp BP Pulse Ox O2 Del Method O2 Flow Rate 100.0 F 113 H 22 H 133/80 H 100 Mechanical Ventilation 30 05/08/25 16:00 05/08/25 16:00 05/08/25 16:00 05/08/25 16:00 05/08/25 16:00 05/08/25 16:00 05/08/25 16:00 FiO2 40 05/08/25 16:00 Objective Labs 05/08/25 06:18 05/08/25 11:36 Labs: Laboratory Results - last 24 hr 05/07/25 05/08/25 05/08/25 18:34 06:18 11:36 WBC 19.8 H RBC 3.42 L Hgb 8.4 L Hct 27.0 L MCV 79 L MCH 24.6 L MCHC 31.1 RDW Std Deviation 62.0 H Plt Count 254 Neut % (Auto) 85 H Lymph % (Auto) 7 L [place] % (Auto) 5 Eos % (Auto) 3 Baso % (Auto) 0 Neut # (Auto) 16.8 H Lymph # (Auto) 1.4 [place] # (Auto) 1.0 H Eos # (Auto) 0.5 Baso # (Auto) 0.1 Immature Gran # (Auto) 0.17 H Absolute Nucleated RBC 0.00 Immature Gran % 1 H Nucleated RBC % 0 PT 12.2 INR 1.1 APTT 25.9 Fibrinogen > 860 H* Sodium 138 Potassium 4.8 Chloride 100 Carbon Dioxide 27.9 Anion Gap 10 BUN 29 H Creatinine 0.9 Estim Creat Clear Calc 91.2 eGFR > 60 BUN/Creatinine Ratio 32 H Glucose 176 H Calculated Osmolality 285 Calcium 9.3 Corrected Calcium 10.1 Phosphorus 4.0 Magnesium 1.6 Albumin 3.0 L Impressions Impression: Wellfunctioning PEG tube continue current management ABG Interpretation ABG results: 04/27/25 04/27/25 04/27/25 02:12 07:39 09:19 ABG pH 7.30 L 7.18 L* D 7.24 L ABG pCO2 41 53 H D 44 ABG pO2 99 98 110 H ABG HCO3 20 20 19 L ABG O2 Saturation 98 98 99 H ABG Base Excess -6 L -9 L -8 L 04/27/25 04/28/25 04/30/25 12:15 04:10 04:21 ABG pH 7.28 L 7.34 L 7.26 L ABG pCO2 39 36 46 D ABG pO2 135 H D 111 H D 66 L D ABG HCO3 18 L 19 L 20 ABG O2 Saturation 100 H 99 H 93 ABG Base Excess -8 L -6 L -6 L 04/30/25 05/01/25 16:15 04:07 ABG pH 7.31 L 7.30 L ABG pCO2 43 50 H ABG pO2 69 L 64 L ABG HCO3 22 25 ABG O2 Saturation 94 93 ABG Base Excess -4 L -2 Assessment & Plan A&P Narrative finish 7d of zosyn. do not repeat cxr unless he is worse or for 4-6 weeks after the event. you have 4-5d to have a discussion about end of life as he is 80 and on a vent family needs to make some decisions. left on zosyn for now for the germs found, vanco use per primary team. so they can decide how long. pt remains a full code despite his condition. will see again prn Time Spent With Patient Time: Total time spent is greater than 50% in coordination of care (as documented) at patient's floor/unit and/or counseling patient:
[2025-05-08 19:00] LABS: INR 1.2 (0.9-1.3); Partial Thromboplastin Time 70.6 Seconds (22.0-36.0); Prothrombin Time 12.6 Seconds (9.0-12.2)
[2025-05-08] MEDS: INSULIN DEGLUDEC 5 UNIT/0.05 ML (PER 5 UNITS) 22 UNIT SC (21:18)
[2025-05-08 22:13] LABS: Vancomycin,Trough 33.1 mcg/mL (5.0-10.0)
[2025-05-09] VITALS (14 sets, daily range): BP systolic 95–146; BP diastolic 60–94; PULSE 101–125; RESP 16–29; TEMP 36.1–37.2; O2SAT 94–100; BMI 40.6
[2025-05-09] MEDS: METOCLOPRAMIDE INJ 5 MG/ML VIAL 2 ML IVP ×5 (00:50→23:27)
[2025-05-09] MEDS: INSULIN LISPRO (AdmeLOG) 1 UNIT/0.01 ML UNIT SC ×4 (00:52→18:04)
[2025-05-09 01:45] LABS: Partial Thromboplastin Time 57.0 Seconds (22.0-36.0)
[2025-05-09] MEDS: Heparin/D5w 25K 250 ML Ivpb 25,000 UNIT/250 ML BAG 18 UNIT IV (02:33)
[2025-05-09] MEDS: MUPIROCIN OINT 2% 15 GM TUBE 2 GM TOP ×3 (05:36→21:06)
[2025-05-09] MEDS: PIPER/TAZO 3.375 GM PREMIX 3.375 GM/50 ML BAG IV ×3 (05:37→21:06)
[2025-05-09 06:08] LABS: Basophils # (Auto) 0.1 Thou/mm3 (0.0-0.2); Basophils % (Auto) 0 % (0-2.5); Eosinophils # (Auto) 0.6 Thou/mm3 (0.0-0.5); Eosinophils % (Auto) 3 % (0-10); Hematocrit 29.7 % (41.0-53.0); Hemoglobin 9.2 g/dL (13.5-16.0); Immature Granulocytes Auto 0.10 Thou/mm3 (0.00-0.00); Lymphocytes # (Auto) 1.1 Thou/mm3 (1.0-4.8); Lymphocytes % (Auto) 6 % (10-50); Mean Corpuscular HGB Conc 31.0 g/dl (31.0-37.0); Mean Corpuscular Hemoglobin 25.1 pg (25.0-35.0); Mean Corpuscular Volume 81 fL (80-100); Monocytes # (Auto) 1.1 Thou/mm3 (0.0-0.8); Monocytes % (Auto) 6 % (0-12); Neutrophils # (Auto) 16.0 Thou/mm3 (1.8-7.7); Neutrophils % (Auto) 84 % (37-80); Nucleated Red Blood Cell # 0.00 Thou/mm3 (0.00-0.00); Nucleated Red Blood Cell % 0 /100 WBC (0); Platelet Count 263 Thou/mm3 (140-440); RDW Standard Deviation 63.5 fL (35.1-43.9); Red Blood Count 3.67 Miln/mm3 (4.50-5.90); White Blood Count 19.0 Thou/mm3 (3.8-10.6)
[2025-05-09 06:35] LABS: Albumin, Serum 3.4 gm/dL (3.4-4.8); Anion Gap 13 (7-16); BUN/Creatinine Ratio 36 Ratio (12-20); Blood Urea Nitrogen 29 mg/dL (9-23); Calcium 9.6 mg/dL (8.3-10.6); Calcium (Corrected) 10.1 mg/dL (8.5-10.1); Carbon Dioxide 25.8 mMol/L (20.0-31.0); Chloride 100 mMol/L (98-107); Creatinine (Component) 0.8 mg/dL (0.6-1.3); Estimated Creatinine Clearance 102.6 mL/min (>60); Glucose 163 mg/dL (74-106); Magnesium 1.7 mg/dL (1.6-2.6); Osmolality,Calculated 287 (275-295); Phosphorous 3.2 mg/dL (2.4-5.1); Potassium 4.1 mMol/L (3.4-5.1); Sodium 139 mMol/L (136-145); eGFR > 60 See Note
[2025-05-09 08:52] LABS: Partial Thromboplastin Time 31.0 Seconds (22.0-36.0)
--- NOTE | 2025-05-09 09:15 | ESPR_ITS ---
<Statement entered by Brian Man MD - 05/09/25 16:25> No acute overnight events. Seen and examined at bedside. Has not spiked fever in last 24 hours and WBC stable at 19. Unable to obtain CTA yesterday because no access at that time. Will transition from heparin drip to oral anticoagulation. Multiple attempts were made and eventually able to obtain AC access and plan to continue on with CTA for further evaluation of PE. ----- Note reviewed and agree with care plan as documented. Please refer to the note below for further details. Plan discussed with attending physician Dr. Sudhakar Man MD PGY-2 Internal Medicine Documentation for date of: 05/09/25 Subjective Subjective Interval history: 80 y/o male with extensive PMH including chronic respiratory failure, s/p tracheotomy, G-tube, in a chronic vegetative state. Yesterday MRI thoracic and lumbar was done to investigate potential epidural abscess as a source of infection. Only significant finding: suspicious for mild discitis at the L3-L4 level . Chest CT angio to r/o pulmonary embolism was not done; unable to get access for contrast, will try again today. Overnight HR stayed 100-115, patient did not spike any fevers, and no other significant overnight events. Patient was seen at bedside today morning, unchanged status, patient in chronic vegetative state. Exam Vital Signs Temp Pulse Resp BP Pulse Ox O2 Del Method O2 Flow Rate 97.0 F 120 H 18 143/87 H 99 Mechanical Ventilation 3 05/09/25 08:00 05/09/25 08:00 05/09/25 08:00 05/09/25 08:00 05/09/25 08:00 05/09/25 08:00 05/09/25 08:00 FiO2 40 05/09/25 08:00 Narrative Exam General: Obese, chronically ill-appearing man. Tracheostomy on mechanical ventilation. Not responsive to audible or visual stimulus. Neurologic: Unresponsive, unable to move any extremities. Eyes were open HEENT: Normocephalic, atraumatic, mucous membranes moist. Heart: Tachycardic, regular rhythm, no murmurs, gallops, or rubs auscultated. Lungs: Clear to auscultation bilaterally with no wheezing or crackles. Abdomen: Obese, firm, distended, decreased bowel sounds MSK/Extremities: 1+ pitting edema bilaterally lower extremity upto the knees. Equal peripheral pulses. Bilateral lower extremity nails turned black. Skin: Superficial sacral ulcer, grade 2 Objective Labs 05/09/25 04:27 05/09/25 04:27 Labs: Laboratory Results - last 24 hr 05/08/25 05/08/25 05/08/25 11:36 18:07 21:17 WBC RBC Hgb Hct MCV MCH MCHC RDW Std Deviation Plt Count Neut % (Auto) Lymph % (Auto) [place] % (Auto) Eos % (Auto) Baso % (Auto) Neut # (Auto) Lymph # (Auto) [place] # (Auto) Eos # (Auto) Baso # (Auto) Immature Gran # (Auto) Absolute Nucleated RBC Immature Gran % Nucleated RBC % PT 12.2 12.6 H INR 1.1 1.2 APTT 25.9 70.6 H D Sodium 138 Potassium 4.8 Chloride 100 Carbon Dioxide 27.9 Anion Gap 10 BUN 29 H Creatinine 0.9 Estim Creat Clear Calc 91.2 eGFR > 60 BUN/Creatinine Ratio 32 H Glucose 176 H Calculated Osmolality 285 Calcium 9.3 Corrected Calcium 10.1 Phosphorus 4.0 Magnesium Albumin 3.0 L Vancomycin Trough 33.1 H* 05/09/25 05/09/25 05/09/25 00:21 04:27 07:24 WBC 19.0 H RBC 3.67 L Hgb 9.2 L Hct 29.7 L MCV 81 MCH 25.1 MCHC 31.0 RDW Std Deviation 63.5 H Plt Count 263 Neut % (Auto) 84 H Lymph % (Auto) 6 L [place] % (Auto) 6 Eos % (Auto) 3 Baso % (Auto) 0 Neut # (Auto) 16.0 H Lymph # (Auto) 1.1 [place] # (Auto) 1.1 H Eos # (Auto) 0.6 H Baso # (Auto) 0.1 Immature Gran # (Auto) 0.10 H Absolute Nucleated RBC 0.00 Immature Gran % 1 H Nucleated RBC % 0 PT INR APTT 57.0 H D 31.0 D Sodium 139 Potassium 4.1 D Chloride 100 Carbon Dioxide 25.8 Anion Gap 13 BUN 29 H Creatinine 0.8 Estim Creat Clear Calc 102.6 eGFR > 60 BUN/Creatinine Ratio 36 H Glucose 163 H Calculated Osmolality 287 Calcium 9.6 Corrected Calcium 10.1 Phosphorus 3.2 Magnesium 1.7 Albumin 3.4 Vancomycin Trough ABG Interpretation ABG results: 04/27/25 04/27/25 04/27/25 02:12 07:39 09:19 ABG pH 7.30 L 7.18 L* D 7.24 L ABG pCO2 41 53 H D 44 ABG pO2 99 98 110 H ABG HCO3 20 20 19 L ABG O2 Saturation 98 98 99 H ABG Base Excess -6 L -9 L -8 L 04/27/25 04/28/25 04/30/25 12:15 04:10 04:21 ABG pH 7.28 L 7.34 L 7.26 L ABG pCO2 39 36 46 D ABG pO2 135 H D 111 H D 66 L D ABG HCO3 18 L 19 L 20 ABG O2 Saturation 100 H 99 H 93 ABG Base Excess -8 L -6 L -6 L 04/30/25 05/01/25 16:15 04:07 ABG pH 7.31 L 7.30 L ABG pCO2 43 50 H ABG pO2 69 L 64 L ABG HCO3 22 25 ABG O2 Saturation 94 93 ABG Base Excess -4 L -2 Quality Measures Quality Measures VTE prophylaxis Advance care planning discussed with:: spouse Assessment & Plan Assessment Current Active Medications: Generic Name Dose Route Start Last Admin Trade Name Freq PRN Reason Stop Dose Admin Acetaminophen 650 mg 04/27/25 03:11 05/08/25 00:14 Acetaminophen 325 Mg Tablet PO 05/27/25 03:10 650 mg Q4HR PRN Administration PAIN SCALE 1-3 (mild Acetaminophen 1,000 mg 05/07/25 15:20 Acetaminophen 500 Mg Tablet PO 06/06/25 15:19 Q6HR PRN Fever >99.5 Amlodipine Besylate 10 mg 05/04/25 09:00 05/08/25 09:20 Amlodipine Besylate 5 Mg Tablet GT 06/03/25 08:59 10 mg QDAY IMANI Administration Aspirin 81 mg 04/27/25 09:00 05/08/25 09:20 Aspirin 81 Mg Chew GT 05/27/25 08:59 81 mg QDAY IMANI Administration Dextrose 50 ml 04/27/25 03:37 Dextrose 50%-Water Inj 50 Ml Syringe IV 05/27/25 03:36 Q15MIN PRN BG <50 OR BG <70 & pt unresponsive Glucagon 1 mg 04/27/25 03:37 Glucagon Inj 1 Mg Vial IM Q15MIN PRN BG <70, and no IV access Heparin Sodium (Porcine) 3,000 unit 04/30/25 11:01 05/03/25 11:49 Heparin Sod Inj 1000 Unit/Ml Vial 10 Ml INDWELLCAT 05/14/25 11:00 3,000 unit PRN PRN Administration DIALYSIS Vancomycin HCl 1,500 mg/ 500 mls @ 200 mls/hr 05/07/25 22:00 05/08/25 22:18 Sodium Chloride IV 05/14/25 21:59 Not Given Q12H IMANI Protocol 10 MG/MIN Piperacillin/Tazobactam/Dextrose 3.375 gm in 50 mls @ 12.5 mls/hr 05/07/25 22:00 05/09/25 05:37 Zosyn IV 05/14/25 21:59 12.5 mls/hr Q8HR IMANI Administration Heparin Sodium/Dextrose 25,000 unit in 250 mls @ 18 mls/hr 05/08/25 12:30 05/09/25 02:33 Heparin In D5w Ivpb IV 05/22/25 12:29 13.986 units/kg/hr .[id number] IMANI 18 mls/hr Administration Protocol 13.986 UNITS/KG/HR Magnesium Sulfate 4 gm in 50 mls @ 12.5 mls/hr 05/09/25 07:55 Magnesium Sulfate Ivpb IV 05/09/25 11:54 X1 ONE Insulin Degludec 22 unit 05/01/25 21:00 05/08/25 21:18 Insulin Degludec 5 Unit/0.05 Ml (Per 5 Units) SC 05/31/25 20:59 22 unit HS IMANI Administration Insulin Human Lispro 0 unit 04/27/25 06:00 05/09/25 05:35 Insulin Lispro (Admelog) 1 Unit/0.01 Ml Unit SC 05/27/25 05:59 1 unit Q6HR IMANI Administration Protocol Magnesium Hydroxide 30 ml 04/27/25 03:11 Milk Of Magnesia Susp 30 Ml Udc PO 05/27/25 03:10 QDAY PRN CONSTIPATION Metoclopramide HCl 5 mg 05/04/25 00:00 05/09/25 05:35 Metoclopramide Inj 5 Mg/Ml Vial 2 Ml IVP 06/03/25 00:00 5 mg Q6HR IMANI Administration Protocol Midodrine 10 mg 05/02/25 10:45 05/09/25 05:36 Midodrine 5 Mg Tablet PO 06/01/25 10:44 Not Given TID [facility] Mupirocin 2 gm 05/07/25 14:00 05/09/25 05:36 Mupirocin Oint 2% 15 Gm Tube TOP 05/14/25 13:59 1 applicatio TID [facility] Administration Pharmacy Consult 1 each 05/08/25 09:00 Vancomycin Pharmacy To Dose 1 Each Each IV 06/07/25 08:59 QDAY PRN PROTOCOL Plan Kwadwo Sanchez is a 80-year-old male with significant past medical history of chronic respiratory failure s/p trach/PEG tube, chronic, MRSA pneumonia, Pseudomonas UTI, MRSA bacteremia, sacral ulcer, and several other chronic conditions. Patient was admitted to ICU for further management of septic shock secondary to pneumonia and UTI; Downgraded from ICU no longer needing pressors; continuing to manage unresolved sepsis, pending SNF staff availability. #Sepsis #Healthcare associated pneumonia Vs Severe UTI #S/p chronic tracheostomy #Leukocytosis - SIRS criteria (10/10): 97.0 F, HR 120, RR 18, WBCs 19.0 (19.8 yesterday) and patient is on chronic mechanical ventilation - Chest x-ray revealed bilateral pneumonia. - Blood cultures no growth. - CT A/P 05/02 along with residuals from PEG tube makes aspiration pneumonia another ddx. - Suspicion remains for unidentified source of infection due to patient's intermittent fever, leukocytosis, and tachycardia - General surgery does not recommend surgical debridement of sacral wounds at this time - Venous Duplex US positive for bilateral non-occlusive DVT: possible cause of leukocytosis and fever. - MRI thoracic and lumbar spine with contrast (05/08/25) ruled out spinal epidural abscess as potential source of infection. Noted suspicion for L3-L4 discitis. Plan: - GI will place PEG tube with gastric/jejunostomy port outpatient - Cont zosyn to finish 7 day course - Cont vancomycin (started on 05/07/2025) - Consulted ID, waiting for antibiotics recommendation. - Mupirocin topical for MRSA in the nares 05/07/2025 - Blood cultures showing no growth - Midodrine 10mg TID as needed if MAP < 65 and SBP <100 - 1g morphine IVP x1, to monitor improvement of vitals with better pain control - Miralax x1, to address possible constipation associated leukocytosis - Cont monitoring WBCs #Acute DVT Bilatereal non-occlusive common femoral DVT on duplex US Could be the likely cause of new febrile episodes and leukocytosis Plan: - Switch from Heparin Drip to DOAC in preparation for discharge - Chest CT Angio pending (unable to get access for contrast yesterday will try again today) to r/o pulmonary embolism #Hypomagnesemia (05/08/25) Mg was 1.6, patient given 2 g, today 1.7. Plan: - Noting limited increase og magnesium with 2mg repletion, today patient given 4 g in 50 ml IV - Cont to monitor daily magnesium, and watch for symptoms of toxicity. #MARGARETTE, resolved/improving Likely prerenal leading to ATN secondary to sepsis Cr back at 0.7 (baseline) Plan: - Continue to monitor renal panel. - Avoid nephrotoxins - Nephrology recommends no dialysis #Hyponatremia, resolving Possibly due to renal failure, CHF, cirrhosis The patient presented with sodium of 117, but corrected sodium was 123 --> 05/01, 126 Na 137 on 05/07/2025 Plan: - Will continue to monitor sodium levels #Right heart failure and moderate pulmonary hypertension Echo on 04/27 - showed right ventricular volume/pressure overload, mild to moderate TR, RVSP elevated at 40 to 45 mmHg. EF is 55 to 60% Plan: - Outpatient cardiac cath post discharge to categorize pulmonary hypertension and needs treatment accordingly. - Due to patients other commodities, not a candidate for in-patient management of pulmonary hypertension. #Hypertension, controlled - Using Amlodipine 10mg every day and will Hold medications for now. #Insulin-dependent diabetes mellitus type 2 - A1c: 10.5 - Started on insulin degludec 13 units daily at night, increased to 18 units, adjusted to 22 units as of 05/01 based on blood sugars on morning labs - Sliding scale insulin lispro every 6 hourly with fingerstick blood sugar checks #Microcytic anemia Likely 2/2 anemia of chronic disease, but could not rule out other differentials like nutritional deficiency - Iron panel, ferritin, folic acid, vitamin B12, reticulocyte count, peripheral smear and LDH ordered - showed iron deficiency - Daily a.m. 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 by the [place] or the [place]. Patient seen and care discussed with my attending physician, Dr. De La Fuente and my senior residents, Dr. Bianchi and Dr. Han Brower, [facility] [place]ending Provider Attestation/Addendum reviewed labs, imaging, EKG, home medications and prior available records. Face to face evaluation was performed by me. I have personally examined the patient and discussed assessment and plan with the IM team. I reviewed the resident note and agree with the plan with exceptions as below. Chronic hypoxic respiratory failure CVA status post trach and PEG Septic shock, secondary to urinary versus pulmonary source Hyponatremia MARGARETTE Type 2 diabetes mellitus Patient spiked a fever on the morning of 05/07. He was tachycardic. Added IV vancomycin. Repeated blood cultures: Negative to date Continue IV Zosyn He has significant decubitus ulcers. Consulted surgery who does not think it needs debridement Ordered spine MRI: Showed possible discitis. Appreciate ID recommendations Ordered ultrasound of the lower extremities: Showed acute DVT in bilateral femoral veins Ordered CTA of the chest to rule out PE which was delayed as we could not appreciate a good IV access for the contrast Continue aspirin He is off hemodialysis. Removed Vas-Cath Monitor kidney function. Outpatient follow-up with nephrology Monitor sodium level Possible discharge tomorrow on oral anticoagulation pending CTA and further ID recommendations
--- NOTE | 2025-05-09 09:33 | ESPR_ITS ---
Documentation for date of: 05/09/25 Subjective Subjective Interval history: Mr Sanchez is a 80-year-old male with significant past medical history of CVA s/p trach/PEG tube, chronic hypoxic respiratory failure, MRSA pneumonia, Pseudomonas UTI, MRSA bacteremia, sacral ulcer, IDDM type II, hypertension, hyperlipidemia, vertebral osteomyelitis, acute pancreatitis, calculus cholelithiasis, MARGARETTE requiring hemodialysis in the past, and decubitus ulcers brought in by [facility] by the [facility] [place] with chief complaint of fever for past 2 days. As per nursing facility staff, the patient is nonverbal at baseline with GCS score is 5, and they provided a note to rule out sepsis. The at bedside is a poor historian, and believe that the patient still interacts with her. Initially in the ED her vitals were BP 128/58, pulse 123, RR 29, temperature 100.9, saturating 100% on 40 L FiO2 via tracheostomy tube. Labs are significant for white count of 28.6, hemoglobin 8.2, MCV 74, platelet 368, ESR 102, D-dimer greater than 3820, ABG revealed pH 7.30, pCO2 41, sodium 117 with corrected sodium for hyperglycemia is 123, potassium 4.1, chloride 87, bicarb 19.9, anion gap 10, BUN/creatinine 36/1.5, GFR 47, blood sugar 299, lactic acid 2.2, magnesium 2.0, T. bili 1.8, direct bilirubin 1.4, AST/ALT/ALP 71/47/229, troponin less than 0.020, CRP greater than 10.0, BNP 138, albumin 3.2, Pro-Tevin 2.28, UA revealed dark yellow urine, turbid, 2+ protein, 3+ blood, leukocyte esterase positive, RBC 1847, WBC 1892, urine bacteria none. Chest x-ray revealed extensive bilateral pneumonia. PMH: As mentioned above SHX: Positive abdominal surgery, tracheostomy, gastrostomy and knee joint replacement Family history: Unobtainable Social history: He is , often comes to visit, others unobtainable Medications: To be reconciled Allergies: NYLA inhibitors, upper airway edema, ARB's for airway edema The patient was given 1 L of bolus normal saline in the ED, vancomycin and cefepime IV x 1, and he is MAP dropped down to less than 65, and was started on Levophed. The patient was admitted to ICU for further management of septic shock secondary to pneumonia and UTI. 04/27/2025: pt admitted to ICU, Nephrology consulted patient seen and examined in ICU pt on pressors, pt is unresponsive to voice and pain, Pupils are fixed and non responsive to light. pt has sacral wounds being examined by wound nurse divya. pt appears hypervolemic on exam, BLE edematous. ICU managing fluids, Na 118, Cl 88, hco3 17, BUN 35, Cr 1.6, Serum Osm 257 UA with 2+ protein 3+ blood. Urine looks concentrated suspect hypervolemia hyponatremia, reccomend diuretics and albumin 04/28/2025: patient seen and examined in the ICU. Pt opens eyes spontaneously. appears hypervolemic on exam with ELE and ELE with significant edema, ICU managing fluids, Na 120, K 3.7 Cl 88, CO2 17, BUN 42 from 35,Cr 1.8 from 1.6. suspect hypervolemic hyponatremia, reccomend trial of 40 IV lasix and IV albumin, bicitra, procrit epogen 10 000 04/29/2025: Patient examined at bedside in the ICU, remains bedbound on blood pressure support via trach. GCS 4T, patient is not following any commands at this time but does open eyes spontaneously. Hyponatremia improving slowly, will start salt tabs at this time and monitor sodium closely. Patient was given IV Lasix yesterday, with minimal improvement. He still appears significantly fluid overloaded, will give albumin for now. 04/30/2025: Patient seen and examined in the ICU, with trach, uop is minimal, german catheter was removed, straight cath q4h with bladder scans. L femoral catheter removed, Bcx pending, WBC elevated to 34, Na 122, BUN 46 from 31, Cr 2.2 from 2. query UTI, vs bacteremia. , HR 100s, BP normotensive. on exam pt has significant edema query whether pt is hypervolemic vs intravascularly down, recommend aldactone 50, given 1L LR per ICU. 05/01/2025: Patient seen and examined in the ICU, trach is midline wo crusting or oozing secretions minimal, straight cath q4 hr with 400 UOP, B cx GPC 1/2 tubes. WBC 31 from 34, pt appears volume overloaded on exam, lungs sounds difficult to appreciate given pt habitus, BUN 46, Cr 2.1 from 2.2. continues on vanc and zosyn. Plan for HD today with fluid removal. reccomend holding fluids today. BP 90s/40s. 05/02/2025 patient currently seen in telemetry. Moved out of ICU. Blood pressure still on the lower side. On midodrine. Hold dialysis today. Did receive 2 dialysis sessions. Yesterday his blood pressure dropped during dialysis. Labs/medications reviewed. No family around. 05/03/2025: Patient seen and examined in telemetry, continues on midodrine, mackay scattered ronchi bilaterally, eyes opening spontaneously, no hd today, BUN 22 from 28, Cr 1.5 from 1.6. rec Ltech for discharge, UPP 200 05/04/2025 Patient seen and examined in tele. His kidney function is improved, Cr 1.0 plan for german with strict i and o to monitor uop and assess for recovery of renal fxn. Nursing notified mds of c/f potential central line infection, biofilm with pus noted. 05/05/2025: Patient seen and examined in tele. measured UOP is 1200, Cr 0.9, renal function is recovering, fem central line was removed yesterday. On exam today his mucus membranes are dry, given IVF per primary team. CTM urine output and renal function. holding HD given suspected renal recovery. leukocytosis is downtrending, german bag with slighly blood tinged urine. 05/08/2025: Labs reviewed and patient examined at the bedside. BP: 150/79 Cr: 0.7 BUN: 20 Urine Output: 4180mL. Kidney improving and optimal urine output. No hemodialysis today. 05/09/2025:Labs reviewed and patient examined at the bedside. BP: 143/94 Cr: 0.8 BUN: 29, GFR >60, Urine Output:4175mL. Patient's kidney fuction and urine output is optimal. There is no need of hemodialysis. No further management necessary in nephrology stand point at this moment. Exam Vital Signs Temp Pulse Resp BP Pulse Ox O2 Del Method O2 Flow Rate 97.0 F 120 H 18 143/87 H 99 Mechanical Ventilation 3 05/09/25 08:00 05/09/25 08:00 05/09/25 08:00 05/09/25 08:00 05/09/25 08:00 05/09/25 08:00 05/09/25 08:00 FiO2 40 05/09/25 08:00 Narrative Exam General: No acute distress, comatose, opening eyes spontaneously. HEENT: dry mucous membranes, oropharynx not assessed (contracted jaw) Neck: trach in place midline CVS: regular rate and rythm, +murmor , rubs or gallops Lungs: Mild rhonchi throughout the lung field, no wheezing, crackles or decreased breath sounds Abd: Soft, NT, slightly distended, +BS, +epigastric peg tube in place with no errythema crusting or drainage around tube. : german in place, draining well Ext: diffuse edema of upper and 2+ pitting of the lower extrem, warm and well perfused,s/p removal of fem cath Skin: Multiple stages of decubitus ulcers on buttoks and sacrum , L heel with 3cm bruise violacious, skin on dorsum of foot with increased skin pealing, very dry Neurologic: Unresponsive, unable to move any extremities. Objective Labs 05/09/25 04:27 05/09/25 04:27 Labs: Laboratory Results - last 24 hr 05/08/25 05/08/25 05/08/25 11:36 18:07 21:17 WBC RBC Hgb Hct MCV MCH MCHC RDW Std Deviation Plt Count Neut % (Auto) Lymph % (Auto) [place] % (Auto) Eos % (Auto) Baso % (Auto) Neut # (Auto) Lymph # (Auto) [place] # (Auto) Eos # (Auto) Baso # (Auto) Immature Gran # (Auto) Absolute Nucleated RBC Immature Gran % Nucleated RBC % PT 12.2 12.6 H INR 1.1 1.2 APTT 25.9 70.6 H D Sodium 138 Potassium 4.8 Chloride 100 Carbon Dioxide 27.9 Anion Gap 10 BUN 29 H Creatinine 0.9 Estim Creat Clear Calc 91.2 eGFR > 60 BUN/Creatinine Ratio 32 H Glucose 176 H Calculated Osmolality 285 Calcium 9.3 Corrected Calcium 10.1 Phosphorus 4.0 Magnesium Albumin 3.0 L Vancomycin Trough 33.1 H* 05/09/25 05/09/25 05/09/25 00:21 04:27 07:24 WBC 19.0 H RBC 3.67 L Hgb 9.2 L Hct 29.7 L MCV 81 MCH 25.1 MCHC 31.0 RDW Std Deviation 63.5 H Plt Count 263 Neut % (Auto) 84 H Lymph % (Auto) 6 L [place] % (Auto) 6 Eos % (Auto) 3 Baso % (Auto) 0 Neut # (Auto) 16.0 H Lymph # (Auto) 1.1 [place] # (Auto) 1.1 H Eos # (Auto) 0.6 H Baso # (Auto) 0.1 Immature Gran # (Auto) 0.10 H Absolute Nucleated RBC 0.00 Immature Gran % 1 H Nucleated RBC % 0 PT INR APTT 57.0 H D 31.0 D Sodium 139 Potassium 4.1 D Chloride 100 Carbon Dioxide 25.8 Anion Gap 13 BUN 29 H Creatinine 0.8 Estim Creat Clear Calc 102.6 eGFR > 60 BUN/Creatinine Ratio 36 H Glucose 163 H Calculated Osmolality 287 Calcium 9.6 Corrected Calcium 10.1 Phosphorus 3.2 Magnesium 1.7 Albumin 3.4 Vancomycin Trough ABG Interpretation ABG results: 04/27/25 04/27/25 04/27/25 02:12 07:39 09:19 ABG pH 7.30 L 7.18 L* D 7.24 L ABG pCO2 41 53 H D 44 ABG pO2 99 98 110 H ABG HCO3 20 20 19 L ABG O2 Saturation 98 98 99 H ABG Base Excess -6 L -9 L -8 L 04/27/25 04/28/25 04/30/25 12:15 04:10 04:21 ABG pH 7.28 L 7.34 L 7.26 L ABG pCO2 39 36 46 D ABG pO2 135 H D 111 H D 66 L D ABG HCO3 18 L 19 L 20 ABG O2 Saturation 100 H 99 H 93 ABG Base Excess -8 L -6 L -6 L 04/30/25 05/01/25 16:15 04:07 ABG pH 7.31 L 7.30 L ABG pCO2 43 50 H ABG pO2 69 L 64 L ABG HCO3 22 25 ABG O2 Saturation 94 93 ABG Base Excess -4 L -2 Quality Measures Quality Measures VTE prophylaxis Advance care planning discussed with:: patient and other Assessment & Plan Assessment Current Active Medications: Generic Name Dose Route Start Last Admin Trade Name Freq PRN Reason Stop Dose Admin Acetaminophen 650 mg 04/27/25 03:11 09/02/25 00:14 Acetaminophen 325 Mg Tablet PO 05/27/25 03:10 650 mg Q4HR PRN Administration PAIN SCALE 1-3 (mild Acetaminophen 1,000 mg 05/07/25 15:20 Acetaminophen 500 Mg Tablet PO 06/06/25 15:19 Q6HR PRN Fever >99.5 Amlodipine Besylate 10 mg 05/04/25 09:00 05/08/25 09:20 Amlodipine Besylate 5 Mg Tablet GT 06/03/25 08:59 10 mg QDAY IMANI Administration Aspirin 81 mg 04/27/25 09:00 05/08/25 09:20 Aspirin 81 Mg Chew GT 05/27/25 08:59 81 mg QDAY IMANI Administration Dextrose 50 ml 04/27/25 03:37 Dextrose 50%-Water Inj 50 Ml Syringe IV 05/27/25 03:36 Q15MIN PRN BG <50 OR BG <70 & pt unresponsive Glucagon 1 mg 04/27/25 03:37 Glucagon Inj 1 Mg Vial IM Q15MIN PRN BG <70, and no IV access Heparin Sodium (Porcine) 3,000 unit 04/30/25 11:01 05/03/25 11:49 Heparin Sod Inj 1000 Unit/Ml Vial 10 Ml INDWELLCAT 05/14/25 11:00 3,000 unit PRN PRN Administration DIALYSIS Vancomycin HCl 1,500 mg/ 500 mls @ 200 mls/hr 05/07/25 22:00 05/08/25 22:18 Sodium Chloride IV 05/14/25 21:59 Not Given Q12H IMANI Protocol 10 MG/MIN Piperacillin/Tazobactam/Dextrose 3.375 gm in 50 mls @ 12.5 mls/hr 05/07/25 22:00 05/09/25 05:37 Zosyn IV 05/14/25 21:59 12.5 mls/hr Q8HR IMANI Administration Heparin Sodium/Dextrose 25,000 unit in 250 mls @ 18 mls/hr 05/08/25 12:30 05/09/25 02:33 Heparin In D5w Ivpb IV 05/22/25 12:29 13.986 units/kg/hr .[id number] IMANI 18 mls/hr Administration Protocol 13.986 UNITS/KG/HR Magnesium Sulfate 4 gm in 50 mls @ 12.5 mls/hr 05/09/25 07:55 Magnesium Sulfate Ivpb IV 05/09/25 11:54 X1 ONE Insulin Degludec 22 unit 05/01/25 21:00 05/08/25 21:18 Insulin Degludec 5 Unit/0.05 Ml (Per 5 Units) SC 05/31/25 20:59 22 unit HS IMANI Administration Insulin Human Lispro 0 unit 04/27/25 06:00 05/09/25 05:35 Insulin Lispro (Admelog) 1 Unit/0.01 Ml Unit SC 05/27/25 05:59 1 unit Q6HR [facility] Administration Protocol Magnesium Hydroxide 30 ml 04/27/25 03:11 Milk Of Magnesia Susp 30 Ml Udc PO 05/27/25 03:10 QDAY PRN CONSTIPATION Metoclopramide HCl 5 mg 05/04/25 00:00 05/09/25 05:35 Metoclopramide Inj 5 Mg/Ml Vial 2 Ml IVP 06/03/25 00:00 5 mg Q6HR [facility] Administration Protocol Midodrine 10 mg 05/02/25 10:45 05/09/25 05:36 Midodrine 5 Mg Tablet PO 06/01/25 10:44 Not Given TID [facility] Mupirocin 2 gm 05/07/25 14:00 05/09/25 05:36 Mupirocin Oint 2% 15 Gm Tube TOP 05/14/25 13:59 1 applicatio TID [facility] Administration Pharmacy Consult 1 each 05/08/25 09:00 Vancomycin Pharmacy To Dose 1 Each Each IV 06/07/25 08:59 QDAY PRN PROTOCOL Plan Mr Sanchez is a 80-year-old gentleman with hx of CVA s/p trach/PEG tube, chronic hypoxic respiratory failure, MRSA pneumonia, Pseudomonas UTI, MRSA bacteremia, sacral ulcer, IDDM type II (poorl controlled A1c 10.5), hypertension, hyperlipidemia, vertebral osteomyelitis, hx of MARGARETTE requiring hemodialysis in the past, whose baseline mental status is GCS 5, admitted to ICU for septic shock 2/2 PNA vs UTI, requiring pressors and hyponatremia, with minimal UOP 280 ccs, trial lasix and albumin given suspicion of hypervolemic hyponatremia, now resolved. renal function may have recovered, strict i and o with german cath, fem line removed 2/2 c/f possible infection, holding hd given pt has improved renal function MARGARETTE-resolved nonnephrotic range proteinuria Likely prerenal secondary to sepsis, now resolved Presented with creatinine of 1.5, baseline creatinine about 0.7-0.8 Urine Protein Cr ratio: 115: 53= 2.6 (nonnephrotic rage protienuria) - 05/05: Cr 0.9, UOP 1200, slighly blood tinged, appears volume down, mucus membranes dry on exam despite overall anasarca - 05/08: BP: 143/94 Cr: 0.8 BUN: 29, GFR >60, Urine Output:4175mL. Plan: - daily CMP, Mg, Phos - Renally dose medications - Avoid nephrotoxins - strict i and o - cont german for 48 hrs - Patient's kidney fuction and urine output is optimal. There is no need of hemodialysis. No further management necessary in nephrology stand point at this moment. Microcytic anemia - Improving - likely dilutional given decrease in other cell lines, - iron deficiency, iron studies low, retic count elevated. 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 Camila Chadwick (PGY-1)- Internal medicine resident Attending Provider Attestation/Addendum Patient seen and examined with resident physician Dr. Chadwick. Note reviewed, agree with findings and recommendations. Patient currently seen in telemetry. Resting comfortably. Opening his eyes. Creatinine improved. Dialysis catheter removed. Patient apparently has his briefs with few times in a day. Renal will standby. Thank you for the consult. No need for further dialysis at this point.
[2025-05-09] MEDS: MORPHINE SULF INJ 10 MG/ML VIAL IVP (09:45)
[2025-05-09] MEDS: Magnesium Sulfate 4 GM Ivpb 4 GM/50 ML BAG IV (09:47)
[2025-05-09] MEDS: ASPIRIN 81 MG CHEW GT (09:47)
--- NOTE | 2025-05-09 11:02 | XR_ITS ---
Examination: CTA chest with intravenous contrast 2-D reconstructions 3-D reconstructions, vascular Date and time of exam: May 09, 2025, 1645 hrs. Indications: Positive for DVT on venous Doppler study 05/07/2025, chronic shortness of breath, clinical diagnosis pulmonary emboli. CTDI: vol (mGy) 56.1. DLP: (mGycm) 600. Technique: Multiple axial sections of the thorax have been obtained. 3 mm slice thickness, from below the hemidiaphragms to above the apices of the lungs. Mediastinal and lung density settings have been obtained. 2-D sagittal and coronal reconstructions. 3-D angiographic renderings, 3-D volume renderings, 3D post processing, vascular maximum intensity projections obtained. Contrast administered is 100 cc [id number].. Low dose protocols were performed. One or more of the following dose reduction techniques were used; automated exposure control, adjustment of the mA and/or KV according to patient size, use of iterative reconstruction technique. Findings: No thoracic aortic aneurysm dilatation or dissection. No pulmonary artery filling defects. Mild enlargement cardiac contour with prominent vascular congestion Bibasilar pneumonia, small right moderate left pleural fluid No focal liver or splenic lesion Tracheostomy tube satisfactory position No visualized liver or splenic lesion Fluid containing structure beneath the left hemidiaphragm, axial image 132, 10 cm, only partially visualized Impression: Negative for pulmonary artery emboli Bibasilar pneumonia Moderate left pleural fluid Please see the CT abdomen pelvis report May 03, [address] abdomen with intravenous and oral contrast to assess bowel loops versus mass in the left upper abdomen
[2025-05-09] MEDS: HEPARIN SOD INJ 5000 UNIT/ML VIAL 8000 UNIT IV (11:36)
[2025-05-09] MEDS: POLYETHYLENE GLYCOL 17 GM PACKET PO (11:49)
[2025-05-09] MEDS: ACETAMINOPHEN 325 MG TABLET 650 MG PO (11:51)
[2025-05-09] MEDS: Heparin/D5w 25K 250 ML Ivpb 25,000 UNIT/250 ML BAG 23.148 UNIT IV (16:20)
[2025-05-09 18:44] LABS: Partial Thromboplastin Time 99.0 Seconds (22.0-36.0)
--- NOTE | 2025-05-09 19:12 | PC.NURSE ---
Clarified order to discontinue heparin gtt with Dr. Bianchi. Per MD she wants to start eliquis and discontinue heparin gtt one hour after eliquis was administered. Night RN was informed. MD was also notified that there was blood in pts urine, MD will continue to monitor.
--- NOTE | 2025-05-09 20:33 | ESPR_ITS ---
Documentation for date of: 05/09/25 Subjective Subjective Interval history: Patient evaluated no leakage at the PEG site Exam Vital Signs Temp Pulse Resp BP Pulse Ox O2 Del Method O2 Flow Rate 98.9 F 101 H 21 H 108/63 94 L Mechanical Ventilation 3 05/09/25 16:00 05/09/25 16:00 05/09/25 16:00 05/09/25 16:00 05/09/25 16:00 05/09/25 16:00 05/09/25 16:00 FiO2 40 05/09/25 16:00 Objective Labs 05/09/25 04:27 05/09/25 04:27 Labs: Laboratory Results - last 24 hr 05/08/25 05/09/25 05/09/25 21:17 00:21 04:27 WBC 19.0 H RBC 3.67 L Hgb 9.2 L Hct 29.7 L MCV 81 MCH 25.1 MCHC 31.0 RDW Std Deviation 63.5 H Plt Count 263 Neut % (Auto) 84 H Lymph % (Auto) 6 L [place] % (Auto) 6 Eos % (Auto) 3 Baso % (Auto) 0 Neut # (Auto) 16.0 H Lymph # (Auto) 1.1 [place] # (Auto) 1.1 H Eos # (Auto) 0.6 H Baso # (Auto) 0.1 Immature Gran # (Auto) 0.10 H Absolute Nucleated RBC 0.00 Immature Gran % 1 H Nucleated RBC % 0 APTT 57.0 H D Sodium 139 Potassium 4.1 D Chloride 100 Carbon Dioxide 25.8 Anion Gap 13 BUN 29 H Creatinine 0.8 Estim Creat Clear Calc 102.6 eGFR > 60 BUN/Creatinine Ratio 36 H Glucose 163 H Calculated Osmolality 287 Calcium 9.6 Corrected Calcium 10.1 Phosphorus 3.2 Magnesium 1.7 Albumin 3.4 Vancomycin Trough 33.1 H* 05/09/25 05/09/25 07:24 18:00 WBC RBC Hgb Hct MCV MCH MCHC RDW Std Deviation Plt Count Neut % (Auto) Lymph % (Auto) [place] % (Auto) Eos % (Auto) Baso % (Auto) Neut # (Auto) Lymph # (Auto) [place] # (Auto) Eos # (Auto) Baso # (Auto) Immature Gran # (Auto) Absolute Nucleated RBC Immature Gran % Nucleated RBC % APTT 31.0 D 99.0 H D Sodium Potassium Chloride Carbon Dioxide Anion Gap BUN Creatinine Estim Creat Clear Calc eGFR BUN/Creatinine Ratio Glucose Calculated Osmolality Calcium Corrected Calcium Phosphorus Magnesium Albumin Vancomycin Trough Impressions Impression: PEG tube evaluation ABG Interpretation ABG results: 04/27/25 04/27/25 04/27/25 02:12 07:39 09:19 ABG pH 7.30 L 7.18 L* D 7.24 L ABG pCO2 41 53 H D 44 ABG pO2 99 98 110 H ABG HCO3 20 20 19 L ABG O2 Saturation 98 98 99 H ABG Base Excess -6 L -9 L -8 L 04/27/25 04/28/25 04/30/25 12:15 04:10 04:21 ABG pH 7.28 L 7.34 L 7.26 L ABG pCO2 39 36 46 D ABG pO2 135 H D 111 H D 66 L D ABG HCO3 18 L 19 L 20 ABG O2 Saturation 100 H 99 H 93 ABG Base Excess -8 L -6 L -6 L 04/30/25 05/01/25 16:15 04:07 ABG pH 7.31 L 7.30 L ABG pCO2 43 50 H ABG pO2 69 L 64 L ABG HCO3 22 25 ABG O2 Saturation 94 93 ABG Base Excess -4 L -2 Assessment & Plan A&P Narrative finish 7d of zosyn. do not repeat cxr unless he is worse or for 4-6 weeks after the event. you have 4-5d to have a discussion about end of life as he is 80 and on a vent family needs to make some decisions. left on zosyn for now for the germs found, vanco use per primary team. so they can decide how long. pt remains a full code despite his condition. will see again prn Time Spent With Patient Time: Total time spent is greater than 50% in coordination of care (as documented) at patient's floor/unit and/or counseling patient:
[2025-05-09] MEDS: APIXABAN 2.5 MG TABLET 10 MG PO (20:45)
[2025-05-09] MEDS: INSULIN DEGLUDEC 5 UNIT/0.05 ML (PER 5 UNITS) 22 UNIT SC (20:45)
[2025-05-09] MEDS: MIDODRINE 5 MG TABLET 10 MG PO (21:05)
[2025-05-10] VITALS (18 sets, daily range): BP systolic 78–145; BP diastolic 48–79; PULSE 97–120; RESP 19–24; TEMP 36.2–36.9; O2SAT 91–100
--- NOTE | 2025-05-10 04:41 | PC.NURSE ---
[facility] downtime occurred on 05/10/25 from 0200 to 0435
[2025-05-10] MEDS: MUPIROCIN OINT 2% 15 GM TUBE 2 GM TOP ×3 (05:31→21:01)
[2025-05-10] MEDS: METOCLOPRAMIDE INJ 5 MG/ML VIAL 2 ML IVP ×3 (05:31→17:36)
[2025-05-10] MEDS: PIPER/TAZO 3.375 GM PREMIX 3.375 GM/50 ML BAG IV ×3 (05:32→21:01)
[2025-05-10 05:52] LABS: Basophils # (Auto) 0.1 Thou/mm3 (0.0-0.2); Basophils % (Auto) 0 % (0-2.5); Eosinophils # (Auto) 0.2 Thou/mm3 (0.0-0.5); Eosinophils % (Auto) 1 % (0-10); Hematocrit 25.3 % (41.0-53.0); Immature Granulocytes Auto 0.27 Thou/mm3 (0.00-0.00); Lymphocytes # (Auto) 1.0 Thou/mm3 (1.0-4.8); Lymphocytes % (Auto) 3 % (10-50); Mean Corpuscular HGB Conc 30.8 g/dl (31.0-37.0); Mean Corpuscular Hemoglobin 24.8 pg (25.0-35.0); Mean Corpuscular Volume 81 fL (80-100); Monocytes # (Auto) 1.5 Thou/mm3 (0.0-0.8); Monocytes % (Auto) 5 % (0-12); Neutrophils # (Auto) 27.3 Thou/mm3 (1.8-7.7); Neutrophils % (Auto) 90 % (37-80); Nucleated Red Blood Cell # 0.00 Thou/mm3 (0.00-0.00); Nucleated Red Blood Cell % 0 /100 WBC (0); Platelet Count 308 Thou/mm3 (140-440); RDW Standard Deviation 63.2 fL (35.1-43.9); Red Blood Count 3.14 Miln/mm3 (4.50-5.90); White Blood Count 30.3 Thou/mm3 (3.8-10.6)
[2025-05-10 05:54] LABS: Hemoglobin 7.8 g/dL (13.5-16.0)
[2025-05-10 06:02] LABS: Magnesium 2.0 mg/dL (1.6-2.6); Vancomycin,Random 20.1 mcg/mL
[2025-05-10 06:30] LABS: INR 1.2 (0.9-1.3); Partial Thromboplastin Time 31.9 Seconds (22.0-36.0); Prothrombin Time 12.9 Seconds (9.0-12.2)
[2025-05-10] MEDS: APIXABAN 2.5 MG TABLET 10 MG PO ×2 (09:00→20:56)
[2025-05-10] MEDS: LACTULOSE SYRUP 20 GM/30 ML UDC PO ×2 (09:00→10:58)
[2025-05-10] MEDS: ASPIRIN 81 MG CHEW GT (09:02)
--- NOTE | 2025-05-10 09:36 | ESPR_ITS ---
Documentation for date of: 05/10/25 Subjective Subjective Interval history: Mr Sanchez is a 80-year-old male with significant past medical history of CVA s/p trach/PEG tube, chronic hypoxic respiratory failure, MRSA pneumonia, Pseudomonas UTI, MRSA bacteremia, sacral ulcer, IDDM type II, hypertension, hyperlipidemia, vertebral osteomyelitis, acute pancreatitis, calculus cholelithiasis, MARGARETTE requiring hemodialysis in the past, and decubitus ulcers brought in by [facility] by the [facility] [place] with chief complaint of fever for past 2 days. As per nursing facility staff, the patient is nonverbal at baseline with GCS score is 5, and they provided a note to rule out sepsis. The at bedside is a poor historian, and believe that the patient still interacts with her. Initially in the ED her vitals were BP 128/58, pulse 123, RR 29, temperature 100.9, saturating 100% on 40 L FiO2 via tracheostomy tube. Labs are significant for white count of 28.6, hemoglobin 8.2, MCV 74, platelet 368, ESR 102, D-dimer greater than 3820, ABG revealed pH 7.30, pCO2 41, sodium 117 with corrected sodium for hyperglycemia is 123, potassium 4.1, chloride 87, bicarb 19.9, anion gap 10, BUN/creatinine 36/1.5, GFR 47, blood sugar 299, lactic acid 2.2, magnesium 2.0, T. bili 1.8, direct bilirubin 1.4, AST/ALT/ALP 71/47/229, troponin less than 0.020, CRP greater than 10.0, BNP 138, albumin 3.2, Pro-Tevin 2.28, UA revealed dark yellow urine, turbid, 2+ protein, 3+ blood, leukocyte esterase positive, RBC 1847, WBC 1892, urine bacteria none. Chest x-ray revealed extensive bilateral pneumonia. PMH: As mentioned above SHX: Positive abdominal surgery, tracheostomy, gastrostomy and knee joint replacement Family history: Unobtainable Social history: He is , often comes to visit, others unobtainable Medications: To be reconciled Allergies: NYLA inhibitors, upper airway edema, ARB's for airway edema The patient was given 1 L of bolus normal saline in the ED, vancomycin and cefepime IV x 1, and he is MAP dropped down to less than 65, and was started on Levophed. The patient was admitted to ICU for further management of septic shock secondary to pneumonia and UTI. 04/27/2025: pt admitted to ICU, Nephrology consulted patient seen and examined in ICU pt on pressors, pt is unresponsive to voice and pain, Pupils are fixed and non responsive to light. pt has sacral wounds being examined by wound nurse divya. pt appears hypervolemic on exam, BLE edematous. ICU managing fluids, Na 118, Cl 88, hco3 17, BUN 35, Cr 1.6, Serum Osm 257 UA with 2+ protein 3+ blood. Urine looks concentrated suspect hypervolemia hyponatremia, reccomend diuretics and albumin 04/28/2025: patient seen and examined in the ICU. Pt opens eyes spontaneously. appears hypervolemic on exam with ELE and ELE with significant edema, ICU managing fluids, Na 120, K 3.7 Cl 88, CO2 17, BUN 42 from 35,Cr 1.8 from 1.6. suspect hypervolemic hyponatremia, reccomend trial of 40 IV lasix and IV albumin, bicitra, procrit epogen 10 000 04/29/2025: Patient examined at bedside in the ICU, remains bedbound on blood pressure support via trach. GCS 4T, patient is not following any commands at this time but does open eyes spontaneously. Hyponatremia improving slowly, will start salt tabs at this time and monitor sodium closely. Patient was given IV Lasix yesterday, with minimal improvement. He still appears significantly fluid overloaded, will give albumin for now. 04/30/2025: Patient seen and examined in the ICU, with trach, uop is minimal, german catheter was removed, straight cath q4h with bladder scans. L femoral catheter removed, Bcx pending, WBC elevated to 34, Na 122, BUN 46 from 31, Cr 2.2 from 2. query UTI, vs bacteremia. , HR 100s, BP normotensive. on exam pt has significant edema query whether pt is hypervolemic vs intravascularly down, recommend aldactone 50, given 1L LR per ICU. 05/01/2025: Patient seen and examined in the ICU, trach is midline wo crusting or oozing secretions minimal, straight cath q4 hr with 400 UOP, B cx GPC 1/2 tubes. WBC 31 from 34, pt appears volume overloaded on exam, lungs sounds difficult to appreciate given pt habitus, BUN 46, Cr 2.1 from 2.2. continues on vanc and zosyn. Plan for HD today with fluid removal. reccomend holding fluids today. BP 90s/40s. 05/02/2025 patient currently seen in telemetry. Moved out of ICU. Blood pressure still on the lower side. On midodrine. Hold dialysis today. Did receive 2 dialysis sessions. Yesterday his blood pressure dropped during dialysis. Labs/medications reviewed. No family around. 05/03/2025: Patient seen and examined in telemetry, continues on midodrine, mackay scattered ronchi bilaterally, eyes opening spontaneously, no hd today, BUN 22 from 28, Cr 1.5 from 1.6. rec Ltech for discharge, UPP 200 05/04/2025 Patient seen and examined in tele. His kidney function is improved, Cr 1.0 plan for german with strict i and o to monitor uop and assess for recovery of renal fxn. Nursing notified mds of c/f potential central line infection, biofilm with pus noted. 05/05/2025: Patient seen and examined in tele. measured UOP is 1200, Cr 0.9, renal function is recovering, fem central line was removed yesterday. On exam today his mucus membranes are dry, given IVF per primary team. CTM urine output and renal function. holding HD given suspected renal recovery. leukocytosis is downtrending, german bag with slighly blood tinged urine. 05/08/2025: Labs reviewed and patient examined at the bedside. BP: 150/79 Cr: 0.7 BUN: 20 Urine Output: 4180mL. Kidney improving and optimal urine output. No hemodialysis today. 05/09/2025:Labs reviewed and patient examined at the bedside. BP: 143/94 Cr: 0.8 BUN: 29, GFR >60, Urine Output:4175mL. Patient's kidney fuction and urine output is optimal. There is no need of hemodialysis. No further management necessary in nephrology stand point at this moment. 05/10/2025:Labs reviewed and patient examined at the bedside. BP: 145/79 Patient's kidney fuction and urine output is optimal. There is no need of hemodialysis. No further management necessary in nephrology stand point at this moment. Exam Vital Signs Temp Pulse Resp BP Pulse Ox O2 Del Method O2 Flow Rate 98.2 F 116 H 21 H 124/70 100 Mechanical Ventilation 3 05/10/25 08:00 05/10/25 09:00 05/10/25 08:00 05/10/25 09:00 05/10/25 08:00 05/10/25 08:00 05/10/25 08:00 FiO2 40 05/10/25 08:00 Narrative Exam General: No acute distress, comatose, opening eyes spontaneously. HEENT: dry mucous membranes, oropharynx not assessed (contracted jaw) Neck: trach in place midline CVS: regular rate and rythm, +murmor , rubs or gallops Lungs: Mild rhonchi throughout the lung field, no wheezing, crackles or decreased breath sounds Abd: Soft, NT, slightly distended, +BS, +epigastric peg tube in place with no errythema crusting or drainage around tube. : german in place, draining well Ext: diffuse edema of upper and 2+ pitting of the lower extrem, warm and well perfused,s/p removal of fem cath Skin: Multiple stages of decubitus ulcers on buttoks and sacrum , L heel with 3cm bruise violacious, skin on dorsum of foot with increased skin pealing, very dry Neurologic: Unresponsive, unable to move any extremities. Objective Labs 05/10/25 11:34 05/09/25 04:27 Labs: Laboratory Results - last 24 hr 05/09/25 05/10/25 18:00 05:12 WBC 30.3 H D RBC 3.14 L Hgb 7.8 L Hct 25.3 L MCV 81 MCH 24.8 L MCHC 30.8 L RDW Std Deviation 63.2 H Plt Count 308 D Neut % (Auto) 90 H Lymph % (Auto) 3 L [place] % (Auto) 5 Eos % (Auto) 1 Baso % (Auto) 0 Neut # (Auto) 27.3 H Lymph # (Auto) 1.0 [place] # (Auto) 1.5 H Eos # (Auto) 0.2 Baso # (Auto) 0.1 Immature Gran # (Auto) 0.27 H Absolute Nucleated RBC 0.00 Immature Gran % 1 H Nucleated RBC % 0 PT 12.9 H INR 1.2 APTT 99.0 H D 31.9 D Magnesium 2.0 Random Vancomycin 20.1 ABG Interpretation ABG results: 04/27/25 04/27/25 04/27/25 02:12 07:39 09:19 ABG pH 7.30 L 7.18 L* D 7.24 L ABG pCO2 41 53 H D 44 ABG pO2 99 98 110 H ABG HCO3 20 20 19 L ABG O2 Saturation 98 98 99 H ABG Base Excess -6 L -9 L -8 L 04/27/25 04/28/25 04/30/25 12:15 04:10 04:21 ABG pH 7.28 L 7.34 L 7.26 L ABG pCO2 39 36 46 D ABG pO2 135 H D 111 H D 66 L D ABG HCO3 18 L 19 L 20 ABG O2 Saturation 100 H 99 H 93 ABG Base Excess -8 L -6 L -6 L 04/30/25 05/01/25 16:15 04:07 ABG pH 7.31 L 7.30 L ABG pCO2 43 50 H ABG pO2 69 L 64 L ABG HCO3 22 25 ABG O2 Saturation 94 93 ABG Base Excess -4 L -2 Quality Measures Quality Measures VTE prophylaxis Advance care planning discussed with:: patient and other Assessment & Plan Assessment Current Active Medications: Generic Name Dose Route Start Last Admin Trade Name Freq PRN Reason Stop Dose Admin Acetaminophen 650 mg 04/27/25 03:11 05/09/25 11:51 Acetaminophen 325 Mg Tablet PO 05/27/25 03:10 650 mg Q4HR PRN Administration PAIN SCALE 1-3 (mild Acetaminophen 1,000 mg 05/07/25 15:20 Acetaminophen 500 Mg Tablet PO 06/06/25 15:19 Q6HR PRN Fever >99.5 Amlodipine Besylate 10 mg 05/04/25 09:00 05/10/25 09:00 Amlodipine Besylate 5 Mg Tablet GT 06/03/25 08:59 10 mg QDAY IMANI Administration Apixaban 10 mg 05/09/25 21:00 05/10/25 09:00 Apixaban 2.5 Mg Tablet PO 05/16/25 09:01 10 mg BID IMANI Administration Aspirin 81 mg 04/27/25 09:00 05/10/25 09:02 Aspirin 81 Mg Chew GT 05/27/25 08:59 81 mg QDAY IMANI Administration Dextrose 50 ml 04/27/25 03:37 Dextrose 50%-Water Inj 50 Ml Syringe IV 05/27/25 03:36 Q15MIN PRN BG <50 OR BG <70 & pt unresponsive Glucagon 1 mg 04/27/25 03:37 Glucagon Inj 1 Mg Vial IM Q15MIN PRN BG <70, and no IV access Heparin Sodium (Porcine) 3,000 unit 04/30/25 11:01 05/03/25 11:49 Heparin Sod Inj 1000 Unit/Ml Vial 10 Ml INDWELLCAT 05/14/25 11:00 3,000 unit PRN PRN Administration DIALYSIS Vancomycin HCl 1,500 mg/ 500 mls @ 200 mls/hr 05/07/25 22:00 05/08/25 22:18 Sodium Chloride IV 05/14/25 21:59 Not Given On Hold: 05/10/25 07:11 Q12H [facility] Comment: VANCOMYCIN RANDOM Protocol LEVEL 20.1 (05/10), PLEASE 10 MG/MIN CONTINUE TO HOLD ALL DOSES FOR 05/10, RECHECK RANDOM VANCO LEVEL 05/11 @0500, PLEASE CONTINUE TO HOLD VANCO IF LEVEL IS STILL >20 Piperacillin/Tazobactam/Dextrose 3.375 gm in 50 mls @ 12.5 mls/hr 05/07/25 22:00 05/10/25 05:32 Zosyn IV 05/14/25 21:59 12.5 mls/hr Q8HR IMANI Administration Insulin Degludec 22 unit 05/01/25 21:00 05/09/25 20:45 Insulin Degludec 5 Unit/0.05 Ml (Per 5 Units) SC 05/31/25 20:59 22 unit HS IMANI Administration Insulin Human Lispro 0 unit 04/27/25 06:00 05/10/25 05:17 Insulin Lispro (Admelog) 1 Unit/0.01 Ml Unit SC 05/27/25 05:59 Not Given Q6HR IMANI Protocol Magnesium Hydroxide 30 ml 04/27/25 03:11 Milk Of Magnesia Susp 30 Ml Udc PO 05/27/25 03:10 QDAY PRN CONSTIPATION Metoclopramide HCl 5 mg 05/04/25 00:00 05/10/25 05:31 Metoclopramide Inj 5 Mg/Ml Vial 2 Ml IVP 06/03/25 00:00 5 mg Q6HR IMANI Administration Protocol Midodrine 10 mg 05/02/25 10:45 05/10/25 05:33 Midodrine 5 Mg Tablet PO 06/01/25 10:44 Not Given TID [facility] Mupirocin 2 gm 05/07/25 14:00 05/10/25 05:31 Mupirocin Oint 2% 15 Gm Tube TOP 05/14/25 13:59 1 applicatio TID [facility] Administration Pharmacy Consult 1 each 05/08/25 09:00 Vancomycin Pharmacy To Dose 1 Each Each IV 06/07/25 08:59 QDAY PRN PROTOCOL Plan Mr Sanchez is a 80-year-old gentleman with hx of CVA s/p trach/PEG tube, chronic hypoxic respiratory failure, MRSA pneumonia, Pseudomonas UTI, MRSA bacteremia, sacral ulcer, IDDM type II (poorl controlled A1c 10.5), hypertension, hyperlipidemia, vertebral osteomyelitis, hx of MARGARETTE requiring hemodialysis in the past, whose baseline mental status is GCS 5, admitted to ICU for septic shock 2/2 PNA vs UTI, requiring pressors and hyponatremia, with minimal UOP 280 ccs, trial lasix and albumin given suspicion of hypervolemic hyponatremia, now resolved. renal function may have recovered, strict i and o with german cath, fem line removed 2/2 c/f possible infection, holding hd given pt has improved renal function MARGARETTE-resolved nonnephrotic range proteinuria Likely prerenal secondary to sepsis, now resolved Presented with creatinine of 1.5, baseline creatinine about 0.7-0.8 Urine Protein Cr ratio: 115: 53= 2.6 (nonnephrotic rage protienuria) - 05/05: Cr 0.9, UOP 1200, slighly blood tinged, appears volume down, mucus membranes dry on exam despite overall anasarca - 05/08: BP: 143/94 Cr: 0.8 BUN: 29, GFR >60, Urine Output:4175mL. Plan: - daily CMP, Mg, Phos - Renally dose medications - Avoid nephrotoxins - strict i and o - Patient's kidney fuction and urine output is optimal. There is no need of hemodialysis. No further management necessary in nephrology stand point at this moment. Microcytic anemia - Improving - likely dilutional given decrease in other cell lines, - iron deficiency, iron studies low, retic count elevated. 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 Okay to signout. Thank you for allowing us to participate in the care of your patient. Assessment and plan discussed with my attending physician Dr. Camila Chadwick ([id number])- Internal medicine resident Attending Provider Attestation/Addendum Patient seen and examined with resident physician Dr. Chadwick. Note reviewed, agree with findings and recommendations. Patient currently seen in telemetry. Urine output seems to be acceptable. Dialysis catheter was removed. No need for further dialysis. Renal will sign off. Please call me if needed
--- NOTE | 2025-05-10 10:57 | XR_ITS ---
Examination: Abdomen sonogram, Limited Date and time of exam: May 10, 2025 1219 hours Fever abdominal pain this week Technique: Real-time beatty scale transabdominal sonographic images of the upper abdomen obtained. Findings: Gallbladder sludge versus small stones Normal gallbladder wall. Common bile duct 0.5 cm Pancreas obscured by bowel gas. Liver 17.8 cm fatty infiltration no focal liver lesions Normal hepatopedal portal venous flow Patent IVC IMPRESSION: Gallbladder sludge versus small gallstones Normal common bile duct
[2025-05-10] MEDS: GLYCERIN, ADULT 1 EA SUPP 1 EACH PR ×2 (10:58→16:29)
[2025-05-10] MEDS: Milk Of Magnesia Susp 30 ML UDC 15 ML PO (11:08)
[2025-05-10] MEDS: INSULIN LISPRO (AdmeLOG) 1 UNIT/0.01 ML UNIT SC ×2 (11:36→17:31)
[2025-05-10 11:54] LABS: Basophils # (Auto) 0.0 Thou/mm3 (0.0-0.2); Basophils % (Auto) 0 % (0-2.5); Eosinophils # (Auto) 0.1 Thou/mm3 (0.0-0.5); Eosinophils % (Auto) 1 % (0-10); Hematocrit 24.6 % (41.0-53.0); Immature Granulocytes Auto 0.23 Thou/mm3 (0.00-0.00); Lymphocytes # (Auto) 0.9 Thou/mm3 (1.0-4.8); Lymphocytes % (Auto) 3 % (10-50); Mean Corpuscular HGB Conc 30.9 g/dl (31.0-37.0); Mean Corpuscular Hemoglobin 24.7 pg (25.0-35.0); Mean Corpuscular Volume 80 fL (80-100); Monocytes # (Auto) 1.3 Thou/mm3 (0.0-0.8); Monocytes % (Auto) 5 % (0-12); Neutrophils # (Auto) 24.4 Thou/mm3 (1.8-7.7); Neutrophils % (Auto) 91 % (37-80); Nucleated Red Blood Cell # 0.00 Thou/mm3 (0.00-0.00); Nucleated Red Blood Cell % 0 /100 WBC (0); Platelet Count 319 Thou/mm3 (140-440); RDW Standard Deviation 62.5 fL (35.1-43.9); Red Blood Count 3.08 Miln/mm3 (4.50-5.90); White Blood Count 27.0 Thou/mm3 (3.8-10.6)
[2025-05-10 12:07] LABS: Hemoglobin 7.6 g/dL (13.5-16.0)
--- NOTE | 2025-05-10 14:00 | PC.SS ---
Rounding Note: Patient receiving IV antibiotics. Bowel movement pending.
--- NOTE | 2025-05-10 14:53 | ESPR_ITS ---
<Statement entered by Tee Diallo MD - 05/17/25 07:12> I reviewed above note and agree with findings and plans. I have also personally examined the patient with medicine team and went over assessment and plan with medical team including [employer] internship and resident physician. <Statement entered by Brian Man MD - 05/10/25 15:15> No acute overnight events. Seen and examined at bedside. He has remained afebrile for last 24 hours, but WBC increased to 30 and repeat CBC showed WBC of 27 as well as decrease in hemoglobin from 9.2 to 7.6. Imaging thus far has shown bilateral non-occlusive DVTs but no evidence of PE on CTA, gallbladder US showed gallbladder sludge vs small stones and normal CBD, MR spine did not show signs of epidural abscess, and will obtain XR of right knee to evaluate for possible septic arthritis but suspicion remains low. Continues to be on zosyn and vancomycin and eliquis for DVTs. Additionally, no BMs recently so will give lactulose and enema. ----- Note reviewed and agree with care plan as documented. Please refer to the note below for further details. Plan discussed with attending physician Dr. 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 Compared to yesterday, patients WBC raised to 30.3 from 19.0, no other acute overnight events. Patient was seen at bedside today morning, unchanged status, chronic vegetative state. Patient opened eyes when I was in the room. Exam Vital Signs Temp Pulse Resp BP Pulse Ox O2 Del Method O2 Flow Rate 98.2 F 101 H 22 H 130/70 100 Mechanical Ventilation 3 05/10/25 12:00 05/10/25 14:15 05/10/25 12:00 05/10/25 14:15 05/10/25 13:01 05/10/25 12:00 05/10/25 08:00 FiO2 40 05/10/25 13:01 Narrative Exam General: Obese, chronically ill-appearing man. Tracheostomy on mechanical ventilation. Not responsive to audible or visual stimulus. Neurologic: Unresponsive, unable to move any extremities. Eyes were open HEENT: Normocephalic, atraumatic, mucous membranes moist. Heart: Tachycardic, regular rhythm, no murmurs, gallops, or rubs auscultated. Lungs: Clear to auscultation bilaterally with no wheezing or crackles. Abdomen: Obese, firm, distended, decreased bowel sounds MSK/Extremities: 1+ pitting edema bilaterally lower extremity upto the knees. Equal peripheral pulses. Bilateral lower extremity nails turned black. Skin: Superficial sacral ulcer, grade 2 Objective Labs 05/10/25 11:34 05/09/25 04:27 Labs: Laboratory Results - last 24 hr 05/09/25 05/10/25 05/10/25 18:00 05:12 11:34 WBC 30.3 H D 27.0 H RBC 3.14 L 3.08 L Hgb 7.8 L 7.6 L Hct 25.3 L 24.6 L MCV 81 80 MCH 24.8 L 24.7 L MCHC 30.8 L 30.9 L RDW Std Deviation 63.2 H 62.5 H Plt Count 308 D 319 Neut % (Auto) 90 H 91 H Lymph % (Auto) 3 L 3 L [place] % (Auto) 5 5 Eos % (Auto) 1 1 Baso % (Auto) 0 0 Neut # (Auto) 27.3 H 24.4 H Lymph # (Auto) 1.0 0.9 L [place] # (Auto) 1.5 H 1.3 H Eos # (Auto) 0.2 0.1 Baso # (Auto) 0.1 0.0 Immature Gran # (Auto) 0.27 H 0.23 H Absolute Nucleated RBC 0.00 0.00 Immature Gran % 1 H 1 H Nucleated RBC % 0 0 PT 12.9 H INR 1.2 APTT 99.0 H D 31.9 D Magnesium 2.0 Random Vancomycin 20.1 ABG Interpretation ABG results: 04/27/25 04/27/25 04/27/25 02:12 07:39 09:19 ABG pH 7.30 L 7.18 L* D 7.24 L ABG pCO2 41 53 H D 44 ABG pO2 99 98 110 H ABG HCO3 20 20 19 L ABG O2 Saturation 98 98 99 H ABG Base Excess -6 L -9 L -8 L 04/27/25 04/28/25 04/30/25 12:15 04:10 04:21 ABG pH 7.28 L 7.34 L 7.26 L ABG pCO2 39 36 46 D ABG pO2 135 H D 111 H D 66 L D ABG HCO3 18 L 19 L 20 ABG O2 Saturation 100 H 99 H 93 ABG Base Excess -8 L -6 L -6 L 04/30/25 05/01/25 16:15 04:07 ABG pH 7.31 L 7.30 L ABG pCO2 43 50 H ABG pO2 69 L 64 L ABG HCO3 22 25 ABG O2 Saturation 94 93 ABG Base Excess -4 L -2 Quality Measures Quality Measures VTE prophylaxis Advance care planning discussed with:: spouse Assessment & Plan Assessment Current Active Medications: Generic Name Dose Route Start Last Admin Trade Name Freq PRN Reason Stop Dose Admin Acetaminophen 650 mg 04/27/25 03:11 05/09/25 11:51 Acetaminophen 325 Mg Tablet PO 05/27/25 03:10 650 mg Q4HR PRN Administration PAIN SCALE 1-3 (mild Acetaminophen 1,000 mg 05/07/25 15:20 Acetaminophen 500 Mg Tablet PO 06/06/25 15:19 Q6HR PRN Fever >99.5 Amlodipine Besylate 10 mg 05/04/25 09:00 05/10/25 09:00 Amlodipine Besylate 5 Mg Tablet GT 06/03/25 08:59 10 mg QDAY IMANI Administration Apixaban 10 mg 05/09/25 21:00 05/10/25 09:00 Apixaban 2.5 Mg Tablet PO 05/16/25 09:01 10 mg BID IMANI Administration Aspirin 81 mg 04/27/25 09:00 05/10/25 09:02 Aspirin 81 Mg Chew GT 05/27/25 08:59 81 mg QDAY IMANI Administration Dextrose 50 ml 04/27/25 03:37 Dextrose 50%-Water Inj 50 Ml Syringe IV 05/27/25 03:36 Q15MIN PRN BG <50 OR BG <70 & pt unresponsive Glucagon 1 mg 04/27/25 03:37 Glucagon Inj 1 Mg Vial IM Q15MIN PRN BG <70, and no IV access Heparin Sodium (Porcine) 3,000 unit 04/30/25 11:01 05/03/25 11:49 Heparin Sod Inj 1000 Unit/Ml Vial 10 Ml INDWELLCAT 05/14/25 11:00 3,000 unit PRN PRN Administration DIALYSIS Vancomycin HCl 1,500 mg/ 500 mls @ 200 mls/hr 05/07/25 22:00 05/08/25 22:18 Sodium Chloride IV 05/14/25 21:59 Not Given On Hold: 05/10/25 07:11 Q12H [facility] Comment: VANCOMYCIN RANDOM Protocol LEVEL 20.1 (05/10), PLEASE 10 MG/MIN CONTINUE TO HOLD ALL DOSES FOR 05/10, RECHECK RANDOM VANCO LEVEL 05/11 @0500, PLEASE CONTINUE TO HOLD VANCO IF LEVEL IS STILL >20 Piperacillin/Tazobactam/Dextrose 3.375 gm in 50 mls @ 12.5 mls/hr 05/07/25 22:00 05/10/25 14:14 Zosyn IV 05/14/25 21:59 12.5 mls/hr Q8HR IMANI Administration Insulin Degludec 22 unit 05/01/25 21:00 05/09/25 20:45 Insulin Degludec 5 Unit/0.05 Ml (Per 5 Units) SC 05/31/25 20:59 22 unit HS IMANI Administration Insulin Human Lispro 0 unit 04/27/25 06:00 05/10/25 11:36 Insulin Lispro (Admelog) 1 Unit/0.01 Ml Unit SC 05/27/25 05:59 1 unit Q6HR [facility] Administration Protocol Magnesium Hydroxide 30 ml 04/27/25 03:11 Milk Of Magnesia Susp 30 Ml Udc PO 05/27/25 03:10 QDAY PRN CONSTIPATION Metoclopramide HCl 5 mg 05/04/25 00:00 05/10/25 11:35 Metoclopramide Inj 5 Mg/Ml Vial 2 Ml IVP 06/03/25 00:00 5 mg Q6HR [facility] Administration Protocol Midodrine 10 mg 05/02/25 10:45 05/10/25 14:15 Midodrine 5 Mg Tablet PO 06/01/25 10:44 Not Given TID [facility] Mupirocin 2 gm 05/07/25 14:00 05/10/25 14:16 Mupirocin Oint 2% 15 Gm Tube TOP 05/14/25 13:59 1 applicatio TID [facility] Administration Pharmacy Consult 1 each 05/08/25 09:00 Vancomycin Pharmacy To Dose 1 Each Each IV 06/07/25 08:59 QDAY PRN PROTOCOL Plan Kwadwo Sanchez is a 80-year-old male with significant past medical history of chronic respiratory failure s/p trach/PEG tube, chronic, MRSA pneumonia, Pseudomonas UTI, MRSA bacteremia, sacral ulcer, and several other chronic conditions. Patient was admitted to ICU for further management of septic shock secondary to pneumonia and UTI; Downgraded from ICU no longer needing pressors; continuing to manage unresolved sepsis, pending SNF staff availability. #Sepsis #Healthcare associated pneumonia Vs Severe UTI #S/p chronic tracheostomy #Leukocytosis - SIRS criteria (11/07): 97.0 F, HR 101, RR 22, WBCs 27.0 (19.0 yesterday) and patient is on chronic mechanical ventilation - Chest x-ray revealed bilateral pneumonia. - Blood cultures no growth. - CT A/P 05/02 along with residuals from PEG tube makes aspiration pneumonia another ddx. - Suspicion remains for unidentified source of infection due to patient's intermittent fever, leukocytosis, and tachycardia - General surgery does not recommend surgical debridement of sacral wounds at this time - Venous Duplex US positive for bilateral non-occlusive DVT: possible cause of leukocytosis and fever. - MRI thoracic and lumbar spine with contrast (05/08/25) ruled out spinal epidural abscess as potential source of infection. Noted suspicion for L3-L4 discitis. - Chest CT angio (05/09/25): ruled out pulmonary embolism - RUQ ultrasound (05/10/25): ruled out cholecystitis. Plan: - GI will place PEG tube with gastric/jejunostomy port outpatient - Cont zosyn to finish 7 day course - Cont vancomycin (started on 05/07/2025) - Consulted ID, cont the antibiotics - Mupirocin topical for MRSA in the nares 05/07/2025 - Blood cultures showing no growth - Midodrine 10mg TID as needed if MAP < 65 and SBP <100 - 1g morphine IVP x1, to monitor improvement of vitals with better pain control - Lactulose (40 mg), Glycerin suppository, and enema to address possible constipation associated leukocytosis - Cont monitoring WBCs #Acute DVT Bilatereal non-occlusive common femoral DVT on duplex US Could be the likely cause of new febrile episodes and leukocytosis Pulmonary embolism ruled out by chest CT angio. Plan: - Apixaban 10 mg BID x7 days and then 5 mg BID thereafter #Hypomagnesemia - resolving (05/10/25) : 2.0 (increased from 1.6 and 1.7) Plan: - Cont to monitor daily magnesium, and watch for symptoms of toxicity. - Replete as needed to keep Mg >2 #MARGARETTE, resolved/improving Likely prerenal leading to ATN secondary to sepsis Cr back at 0.8 (baseline) Plan: - Continue to monitor renal panel. - Avoid nephrotoxins - Nephrology recommends no dialysis #Hyponatremia, resolving Possibly due to renal failure, CHF, cirrhosis The patient presented with sodium of 117, but corrected sodium was 123 --> 05/01, 126 Na 139 on 05/10/2025 Plan: - Will continue to monitor sodium levels #Right heart failure and moderate pulmonary hypertension Echo on 04/27 - showed right ventricular volume/pressure overload, mild to moderate TR, RVSP elevated at 40 to 45 mmHg. EF is 55 to 60% Plan: - Outpatient cardiac cath post discharge to categorize pulmonary hypertension and needs treatment accordingly. - Due to patients other commodities, not a candidate for in-patient management of pulmonary hypertension. #Hypertension, controlled - Using Amlodipine 10mg every day and will Hold medications for now. #Insulin-dependent diabetes mellitus type 2 - A1c: 10.5 - Started on insulin degludec 13 units daily at night, increased to 18 units, adjusted to 22 units as of 05/01 based on blood sugars on morning labs - Sliding scale insulin lispro every 6 hourly with fingerstick blood sugar checks #Microcytic anemia Likely 2/2 anemia of chronic disease, but could not rule out other differentials like nutritional deficiency - Iron panel, ferritin, folic acid, vitamin B12, reticulocyte count, peripheral smear and LDH ordered - showed iron deficiency - Daily a.m. 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 Patient seen and care discussed with my attending physician, Dr. De La Funete and my senior residents, Dr. Bianchi and Dr. Han Brower, OMS-IV
--- NOTE | 2025-05-10 15:06 | XR_ITS ---
Examination: Knee, right , 3 views Technique: Knee AP, lateral, oblique 3 views Date and time of exam: May 10, 2025 1523 hours INDICATIONS: Redness swelling and pain involving the knee this week. FINDINGS: Severe osteopenia Moderate to advanced tricompartment osteoarthritis, most severe medial patellofemoral joints Small knee effusion No acute fracture IMPRESSION: Severe osteopenia Moderate to advanced tricompartment osteoarthritis. No fracture. No cortical bone destruction
--- NOTE | 2025-05-10 15:27 | ESPR_ITS ---
Documentation for date of: 05/10/25 Subjective Subjective Interval history: Patient evaluated PEG tube working very well Exam Vital Signs Temp Pulse Resp BP Pulse Ox O2 Del Method O2 Flow Rate 98.2 F 101 H 22 H 130/70 100 Mechanical Ventilation 3 05/10/25 12:00 05/10/25 14:15 05/10/25 12:00 05/10/25 14:15 05/10/25 13:01 05/10/25 12:00 05/10/25 08:00 FiO2 40 05/10/25 13:01 Objective Labs 05/10/25 11:34 05/09/25 04:27 Labs: Laboratory Results - last 24 hr 05/09/25 05/10/25 05/10/25 18:00 05:12 11:34 WBC 30.3 H D 27.0 H RBC 3.14 L 3.08 L Hgb 7.8 L 7.6 L Hct 25.3 L 24.6 L MCV 81 80 MCH 24.8 L 24.7 L MCHC 30.8 L 30.9 L RDW Std Deviation 63.2 H 62.5 H Plt Count 308 D 319 Neut % (Auto) 90 H 91 H Lymph % (Auto) 3 L 3 L [place] % (Auto) 5 5 Eos % (Auto) 1 1 Baso % (Auto) 0 0 Neut # (Auto) 27.3 H 24.4 H Lymph # (Auto) 1.0 0.9 L [place] # (Auto) 1.5 H 1.3 H Eos # (Auto) 0.2 0.1 Baso # (Auto) 0.1 0.0 Immature Gran # (Auto) 0.27 H 0.23 H Absolute Nucleated RBC 0.00 0.00 Immature Gran % 1 H 1 H Nucleated RBC % 0 0 PT 12.9 H INR 1.2 APTT 99.0 H D 31.9 D Magnesium 2.0 Random Vancomycin 20.1 Impressions Impression: Well functioning PEG tube continue current management ABG Interpretation ABG results: 04/27/25 04/27/25 04/27/25 02:12 07:39 09:19 ABG pH 7.30 L 7.18 L* D 7.24 L ABG pCO2 41 53 H D 44 ABG pO2 99 98 110 H ABG HCO3 20 20 19 L ABG O2 Saturation 98 98 99 H ABG Base Excess -6 L -9 L -8 L 04/27/25 04/28/25 04/30/25 12:15 04:10 04:21 ABG pH 7.28 L 7.34 L 7.26 L ABG pCO2 39 36 46 D ABG pO2 135 H D 111 H D 66 L D ABG HCO3 18 L 19 L 20 ABG O2 Saturation 100 H 99 H 93 ABG Base Excess -8 L -6 L -6 L 04/30/25 05/01/25 16:15 04:07 ABG pH 7.31 L 7.30 L ABG pCO2 43 50 H ABG pO2 69 L 64 L ABG HCO3 22 25 ABG O2 Saturation 94 93 ABG Base Excess -4 L -2 Assessment & Plan A&P Narrative finish 7d of zosyn. do not repeat cxr unless he is worse or for 4-6 weeks after the event. you have 4-5d to have a discussion about end of life as he is 80 and on a vent family needs to make some decisions. left on zosyn for now for the germs found, vanco use per primary team. so they can decide how long. pt remains a full code despite his condition. will see again prn Time Spent With Patient Time: Total time spent is greater than 50% in coordination of care (as documented) at patient's floor/unit and/or counseling patient:
[2025-05-10] MEDS: SODIUM CHLORIDE 0.9% 250 ML 250 ML 999 ML IV ×2 (15:55→16:03)
--- NOTE | 2025-05-10 15:56 | EKG_ITS ---
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
--- NOTE | 2025-05-10 16:03 | ESPR_ITS ---
Documentation for date of: 05/10/25 Subjective Subjective Interval history: No leakage at the PEG site Tolerating PEG feeding Exam Vital Signs Temp Pulse Resp BP Pulse Ox O2 Del Method O2 Flow Rate 98.2 F 101 H 22 H 130/70 100 Mechanical Ventilation 3 05/10/25 12:00 05/10/25 14:15 05/10/25 12:00 05/10/25 14:15 05/10/25 13:01 05/10/25 12:00 05/10/25 08:00 FiO2 40 05/10/25 13:01 Objective Labs 05/10/25 11:34 05/09/25 04:27 Labs: Laboratory Results - last 24 hr 05/09/25 05/10/25 05/10/25 18:00 05:12 11:34 WBC 30.3 H D 27.0 H RBC 3.14 L 3.08 L Hgb 7.8 L 7.6 L Hct 25.3 L 24.6 L MCV 81 80 MCH 24.8 L 24.7 L MCHC 30.8 L 30.9 L RDW Std Deviation 63.2 H 62.5 H Plt Count 308 D 319 Neut % (Auto) 90 H 91 H Lymph % (Auto) 3 L 3 L [place] % (Auto) 5 5 Eos % (Auto) 1 1 Baso % (Auto) 0 0 Neut # (Auto) 27.3 H 24.4 H Lymph # (Auto) 1.0 0.9 L [place] # (Auto) 1.5 H 1.3 H Eos # (Auto) 0.2 0.1 Baso # (Auto) 0.1 0.0 Immature Gran # (Auto) 0.27 H 0.23 H Absolute Nucleated RBC 0.00 0.00 Immature Gran % 1 H 1 H Nucleated RBC % 0 0 PT 12.9 H INR 1.2 APTT 99.0 H D 31.9 D Magnesium 2.0 Random Vancomycin 20.1 Impressions Impression: No leakage at the PEG site Tolerating PEG feeding Continue current management ABG Interpretation ABG results: 04/27/25 04/27/25 04/27/25 02:12 07:39 09:19 ABG pH 7.30 L 7.18 L* D 7.24 L ABG pCO2 41 53 H D 44 ABG pO2 99 98 110 H ABG HCO3 20 20 19 L ABG O2 Saturation 98 98 99 H ABG Base Excess -6 L -9 L -8 L 04/27/25 04/28/25 04/30/25 12:15 04:10 04:21 ABG pH 7.28 L 7.34 L 7.26 L ABG pCO2 39 36 46 D ABG pO2 135 H D 111 H D 66 L D ABG HCO3 18 L 19 L 20 ABG O2 Saturation 100 H 99 H 93 ABG Base Excess -8 L -6 L -6 L 04/30/25 05/01/25 16:15 04:07 ABG pH 7.31 L 7.30 L ABG pCO2 43 50 H ABG pO2 69 L 64 L ABG HCO3 22 25 ABG O2 Saturation 94 93 ABG Base Excess -4 L -2 Assessment & Plan A&P Narrative finish 7d of zosyn. do not repeat cxr unless he is worse or for 4-6 weeks after the event. you have 4-5d to have a discussion about end of life as he is 80 and on a vent family needs to make some decisions. left on zosyn for now for the germs found, vanco use per primary team. so they can decide how long. pt remains a full code despite his condition. will see again prn Time Spent With Patient Time: Total time spent is greater than 50% in coordination of care (as documented) at patient's floor/unit and/or counseling patient:
[2025-05-10] MEDS: MIDODRINE 5 MG TABLET 10 MG PO (16:16)
--- NOTE | 2025-05-10 16:17 | EVENTNT_ITS ---
<Statement entered by Jatinder Bianchi MD - 05/10/25 16:51> Patient examined and case discussed with the team including attending physician. Note reviewed, I agree with the care plan as documented. RR called around 4pm for hypotension- MAP 57. Patient fluid responsive to 500cc bolus. Low BP likely to due to laxatives. Will start maintenance IVF and monitor for BM. Follow up CT A/P w/ contrast for further evaluation. Please refer to the note below for further details. - Jatinder Bianchi MD, PGY 3 Disclaimer: The document may contain phonetic/typographic errors due to voice recognition software. These errors are purely due to imperfections in the software program. Documentation for date of: 05/10/25 Event Note Event Note: A rapid response was called around 4:00 pm. Patient was found to be hypotensive with MAP in high 50s. Earlier patient got laxative including 40 g lactulose, Glycerin suppository, and an osmotic enema. Drop in BP was likely a result of laxatives used earlier today. BP was responsive to fluids. Patient was given a 250ml NS bolus and MAP increased to low 60s. Another bolus 250 NS was given which further increased the MAP to 64. Patient was started on maintance fluids, LR 500 ml at 75cc/hr to further address dehydration. CT abdomen and pelvis with contrast ordered to rule out acute hemorrhage or bowl perforation. Midodrine ordered PRN to to keep MAP >60. Patient seen and care discussed with attending Dr. Diallo and senior resident Dr. Bianchi. LIZZETTE Corea IV
[2025-05-10] MEDS: RINGERS LACTATED 1000 ML 500 ML 75 ML IV (17:18)
[2025-05-10] MEDS: INSULIN DEGLUDEC 5 UNIT/0.05 ML (PER 5 UNITS) 22 UNIT SC (20:57)
[2025-05-11] VITALS (16 sets, daily range): BP systolic 96–151; BP diastolic 57–78; PULSE 97–111; RESP 18–26; TEMP 36.3–38; O2SAT 91–100; BMI 40.8
[2025-05-11] MEDS: METOCLOPRAMIDE INJ 5 MG/ML VIAL 2 ML IVP ×5 (00:02→23:29)
[2025-05-11] MEDS: INSULIN LISPRO (AdmeLOG) 1 UNIT/0.01 ML UNIT SC ×4 (00:03→17:20)
[2025-05-11] MEDS: ACETAMINOPHEN 500 MG TABLET 1000 MG PO (04:56)
[2025-05-11] MEDS: PIPER/TAZO 3.375 GM PREMIX 3.375 GM/50 ML BAG IV ×3 (06:03→21:22)
[2025-05-11] MEDS: MUPIROCIN OINT 2% 15 GM TUBE 2 GM TOP ×3 (06:04→21:22)
[2025-05-11 06:14] LABS: Basophils # (Auto) 0.1 Thou/mm3 (0.0-0.2); Basophils % (Auto) 0 % (0-2.5); Eosinophils # (Auto) 0.6 Thou/mm3 (0.0-0.5); Eosinophils % (Auto) 3 % (0-10); Hematocrit 22.0 % (41.0-53.0); Immature Granulocytes Auto 0.09 Thou/mm3 (0.00-0.00); Lymphocytes # (Auto) 1.0 Thou/mm3 (1.0-4.8); Lymphocytes % (Auto) 5 % (10-50); Mean Corpuscular HGB Conc 30.0 g/dl (31.0-37.0); Mean Corpuscular Hemoglobin 24.3 pg (25.0-35.0); Mean Corpuscular Volume 81 fL (80-100); Monocytes # (Auto) 1.1 Thou/mm3 (0.0-0.8); Monocytes % (Auto) 5 % (0-12); Neutrophils # (Auto) 17.8 Thou/mm3 (1.8-7.7); Neutrophils % (Auto) 87 % (37-80); Nucleated Red Blood Cell # 0.00 Thou/mm3 (0.00-0.00); Nucleated Red Blood Cell % 0 /100 WBC (0); Platelet Count 319 Thou/mm3 (140-440); RDW Standard Deviation 63.0 fL (35.1-43.9); Red Blood Count 2.72 Miln/mm3 (4.50-5.90); White Blood Count 20.6 Thou/mm3 (3.8-10.6)
[2025-05-11 06:22] LABS: Hemoglobin 6.6 g/dL (13.5-16.0)
[2025-05-11 06:32] LABS: Albumin, Serum 2.8 gm/dL (3.4-4.8); Anion Gap 13 (7-16); BUN/Creatinine Ratio 30 Ratio (12-20); Blood Urea Nitrogen 30 mg/dL (9-23); Calcium 9.3 mg/dL (8.3-10.6); Calcium (Corrected) 10.3 mg/dL (8.5-10.1); Carbon Dioxide 25.6 mMol/L (20.0-31.0); Chloride 103 mMol/L (98-107); Creatinine (Component) 1.0 mg/dL (0.6-1.3); Estimated Creatinine Clearance 82.3 mL/min (>60); Glucose 170 mg/dL (74-106); Osmolality,Calculated 293 (275-295); Phosphorous 4.7 mg/dL (2.4-5.1); Potassium 3.7 mMol/L (3.4-5.1); Sodium 142 mMol/L (136-145); Vancomycin,Random 14.3 mcg/mL; eGFR > 60 See Note
--- NOTE | 2025-05-11 07:45 | PD.IDPROG ---
Subjective Subjective Interval history: signed off wednesday, but new team wansts me to decide on abx choice and duration. by his side and indicates that his encephalopathy may be somewhat chronic Exam Vital Signs Temp Pulse Resp BP Pulse Ox O2 Del Method O2 Flow Rate 99.7 F 99 20 113/66 100 Mechanical Ventilation 3 05/11/25 05:56 05/11/25 06:41 05/11/25 04:00 05/11/25 04:00 05/11/25 06:41 05/11/25 04:00 05/10/25 08:00 FiO2 30 05/11/25 06:41 Narrative Exam not interactivce for me. indicates he interacts with her with his eyes and that he worsened here before and was in a wc before the vent placed. Objective - Internal Medicine Labs 05/11/25 05:18 05/11/25 05:18 Labs: Laboratory Results - last 24 hr 05/10/25 05/11/25 11:34 05:18 WBC 27.0 H 20.6 H D RBC 3.08 L 2.72 L Hgb 7.6 L 6.6 L* Hct 24.6 L 22.0 L MCV 80 81 MCH 24.7 L 24.3 L MCHC 30.9 L 30.0 L RDW Std Deviation 62.5 H 63.0 H Plt Count 319 319 Neut % (Auto) 91 H 87 H Lymph % (Auto) 3 L 5 L [place] % (Auto) 5 5 Eos % (Auto) 1 3 Baso % (Auto) 0 0 Neut # (Auto) 24.4 H 17.8 H Lymph # (Auto) 0.9 L 1.0 [place] # (Auto) 1.3 H 1.1 H Eos # (Auto) 0.1 0.6 H Baso # (Auto) 0.0 0.1 Immature Gran # (Auto) 0.23 H 0.09 H Absolute Nucleated RBC 0.00 0.00 Immature Gran % 1 H 0 Nucleated RBC % 0 0 Sodium 142 Potassium 3.7 Chloride 103 Carbon Dioxide 25.6 Anion Gap 13 BUN 30 H Creatinine 1.0 Estim Creat Clear Calc 82.3 eGFR > 60 BUN/Creatinine Ratio 30 H Glucose 170 H Calculated Osmolality 293 Calcium 9.3 Corrected Calcium 10.3 H Phosphorus 4.7 Albumin 2.8 L D Random Vancomycin 14.3 ABG Interpretation ABG results: 04/27/25 04/27/25 04/27/25 02:12 07:39 09:19 ABG pH 7.30 L 7.18 L* D 7.24 L ABG pCO2 41 53 H D 44 ABG pO2 99 98 110 H ABG HCO3 20 20 19 L ABG O2 Saturation 98 98 99 H ABG Base Excess -6 L -9 L -8 L 04/27/25 04/28/25 04/30/25 12:15 04:10 04:21 ABG pH 7.28 L 7.34 L 7.26 L ABG pCO2 39 36 46 D ABG pO2 135 H D 111 H D 66 L D ABG HCO3 18 L 19 L 20 ABG O2 Saturation 100 H 99 H 93 ABG Base Excess -8 L -6 L -6 L 04/30/25 05/01/25 16:15 04:07 ABG pH 7.31 L 7.30 L ABG pCO2 43 50 H ABG pO2 69 L 64 L ABG HCO3 22 25 ABG O2 Saturation 94 93 ABG Base Excess -4 L -2 Assessment & Plan A&P Narrative finish zosynmonday. do not repeat cxr unless he is worse or for 4-6 weeks after the event. he is 80 and on a vent and not interactive, so a discussion about expectations and goals of care is prudent . may be unrealistic in her expectations so please discuss with her as you are able. left on zosyn for now, vanco use per primary team. so they can decide how long. I am ok stopping the vanco and finishing another 3-4d of zosyn empirically. pt remains a full code despite his condition. if worse, you can add back the vanco to finish same time as the zosyn. if you want an all enteral regimen. augmentin is likely the closest to zosyn although some might favor enteral levaquin and flagyl. flagyl has some side effects though so I have tended to go with augmentin enterally. I signed off on monday 05/07 when primary team restarted the vanco after it was stopped. and refused to have a goals of care discussion with pt and . Time Spent With Patient Time: Total time spent is greater than 50% in coordination of care (as documented) at patient's floor/unit and/or counseling patient:
[2025-05-11] MEDS: ALBUMIN HUMAN 25% IVPB 25 GM/100 ML BTL IV (09:18)
--- NOTE | 2025-05-11 09:40 | ESPR_ITS ---
<Statement entered by Tee Diallo MD - 05/17/25 07:13> I reviewed above note and agree with findings and plans. I have also personally examined the patient with medicine team and went over assessment and plan with medical team including project intern and resident physician. <Statement entered by Brian Man MD - 05/11/25 13:45> No acute overnight events but hemoglobin noted drop from 7.6 to 6.6 last 24 hours and so we will give 1 unit PRBC, pending posttransfusion H&H. Seen and examined at bedside and dark red urine noticed So we will change Eliquis 10 mg twice daily to enoxaparin 120 mg twice daily. GI already on case but will further evaluate for possible GI bleed. Continues to remain afebrile on Vanco and Zosyn and improvement in leukocytosis. Otherwise, will remain in close contact with family regarding further decision making and update on clinical course. ----- Note reviewed and agree with care plan as documented. Please refer to the note below for further details. Plan discussed with attending physician Dr. 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 Patient has had 2 large loose bowel moments since yesterday as per the nurse. WBC improved to 20.6 (27 yesterday). Patient had a significant drop in hemoglobin 6.6 (7.6 yesterday). Patient was seen at bedside today, status grosly unchanged. Patient looked pale. Chronic vegetative state. Exam Vital Signs Temp Pulse Resp BP Pulse Ox O2 Del Method O2 Flow Rate 97.9 F 97 18 96/57 L 100 Mechanical Ventilation 3 05/11/25 08:00 05/11/25 08:00 05/11/25 08:00 05/11/25 08:00 05/11/25 08:00 05/11/25 08:00 05/10/25 08:00 FiO2 30 05/11/25 06:41 Narrative Exam General: Obese, chronically ill-appearing man. Tracheostomy on mechanical ventilation. Not responsive to audible or visual stimulus. Neurologic: Unresponsive, unable to move any extremities. Eyes were open and blinking. Patient looked more pale than usual. HEENT: Normocephalic, atraumatic, mucous membranes moist. Heart: Tachycardic, regular rhythm, no murmurs, gallops, or rubs auscultated. Lungs: Clear to auscultation bilaterally with no wheezing or crackles. Abdomen: Obese, firm, distended, decreased bowel sounds MSK/Extremities: 1+ pitting edema bilaterally lower extremities upto the knees. Bilateral upper exteremities also 1+ edema. Equal peripheral pulses. Bilateral lower extremity nails turned black. Objective Labs 05/11/25 05:18 05/11/25 05:18 Labs: Laboratory Results - last 24 hr 05/10/25 05/11/25 05/11/25 11:34 05:18 08:08 WBC 27.0 H 20.6 H D RBC 3.08 L 2.72 L Hgb 7.6 L 6.6 L* Hct 24.6 L 22.0 L MCV 80 81 MCH 24.7 L 24.3 L MCHC 30.9 L 30.0 L RDW Std Deviation 62.5 H 63.0 H Plt Count 319 319 Neut % (Auto) 91 H 87 H Lymph % (Auto) 3 L 5 L [place] % (Auto) 5 5 Eos % (Auto) 1 3 Baso % (Auto) 0 0 Neut # (Auto) 24.4 H 17.8 H Lymph # (Auto) 0.9 L 1.0 [place] # (Auto) 1.3 H 1.1 H Eos # (Auto) 0.1 0.6 H Baso # (Auto) 0.0 0.1 Immature Gran # (Auto) 0.23 H 0.09 H Absolute Nucleated RBC 0.00 0.00 Immature Gran % 1 H 0 Nucleated RBC % 0 0 Sodium 142 Potassium 3.7 Chloride 103 Carbon Dioxide 25.6 Anion Gap 13 BUN 30 H Creatinine 1.0 Estim Creat Clear Calc 82.3 eGFR > 60 BUN/Creatinine Ratio 30 H Glucose 170 H Calculated Osmolality 293 Calcium 9.3 Corrected Calcium 10.3 H Phosphorus 4.7 Albumin 2.8 L D Random Vancomycin 14.3 Blood Type O Positive Antibody Screen NEGATIVE Crossmatch See Detail Blood Bank Wristband ID Yes ABG Interpretation ABG results: 04/27/25 04/27/25 04/27/25 02:12 07:39 09:19 ABG pH 7.30 L 7.18 L* D 7.24 L ABG pCO2 41 53 H D 44 ABG pO2 99 98 110 H ABG HCO3 20 20 19 L ABG O2 Saturation 98 98 99 H ABG Base Excess -6 L -9 L -8 L 04/27/25 04/28/25 04/30/25 12:15 04:10 04:21 ABG pH 7.28 L 7.34 L 7.26 L ABG pCO2 39 36 46 D ABG pO2 135 H D 111 H D 66 L D ABG HCO3 18 L 19 L 20 ABG O2 Saturation 100 H 99 H 93 ABG Base Excess -8 L -6 L -6 L 04/30/25 05/01/25 16:15 04:07 ABG pH 7.31 L 7.30 L ABG pCO2 43 50 H ABG pO2 69 L 64 L ABG HCO3 22 25 ABG O2 Saturation 94 93 ABG Base Excess -4 L -2 Quality Measures Quality Measures VTE prophylaxis Advance care planning discussed with:: spouse Assessment & Plan Assessment Current Active Medications: Generic Name Dose Route Start Last Admin Trade Name Freq PRN Reason Stop Dose Admin Acetaminophen 650 mg 04/27/25 03:11 05/09/25 11:51 Acetaminophen 325 Mg Tablet PO 05/27/25 03:10 650 mg Q4HR PRN Administration PAIN SCALE 1-3 (mild Acetaminophen 1,000 mg 05/07/25 15:20 05/11/25 04:56 Acetaminophen 500 Mg Tablet PO 06/06/25 15:19 1,000 mg Q6HR PRN Administration Fever >99.5 Amlodipine Besylate 10 mg 05/04/25 09:00 05/10/25 09:00 Amlodipine Besylate 5 Mg Tablet GT 06/03/25 08:59 10 mg On Hold: 05/10/25 15:58 QDAY IMANI Administration Apixaban 5 mg 05/11/25 09:00 Apixaban 2.5 Mg Tablet PO 05/16/25 09:01 BID IMANI Protocol Dextrose 50 ml 04/27/25 03:37 Dextrose 50%-Water Inj 50 Ml Syringe IV 05/27/25 03:36 Q15MIN PRN BG <50 OR BG <70 & pt unresponsive Glucagon 1 mg 04/27/25 03:37 Glucagon Inj 1 Mg Vial IM Q15MIN PRN BG <70, and no IV access Heparin Sodium (Porcine) 3,000 unit 04/30/25 11:01 05/03/25 11:49 Heparin Sod Inj 1000 Unit/Ml Vial 10 Ml INDWELLCAT 05/14/25 11:00 3,000 unit PRN PRN Administration DIALYSIS Piperacillin/Tazobactam/Dextrose 3.375 gm in 50 mls @ 12.5 mls/hr 05/07/25 22:00 05/11/25 06:03 Zosyn IV 05/14/25 21:59 12.5 mls/hr Q8HR IMANI Administration Vancomycin HCl/Dextrose 300 mls @ 120 mls/hr 05/11/25 10:00 Vancomycin/D5w 1500 Mg Ivpb IV 05/18/25 09:59 Q24H IMANI Protocol Insulin Degludec 22 unit 05/01/25 21:00 05/10/25 20:57 Insulin Degludec 5 Unit/0.05 Ml (Per 5 Units) SC 05/31/25 20:59 22 unit HS IMANI Administration Insulin Human Lispro 0 unit 04/27/25 06:00 05/11/25 06:03 Insulin Lispro (Admelog) 1 Unit/0.01 Ml Unit SC 05/27/25 05:59 1 unit Q6HR [facility] Administration Protocol Magnesium Hydroxide 30 ml 04/27/25 03:11 Milk Of Magnesia Susp 30 Ml Udc PO 05/27/25 03:10 QDAY PRN CONSTIPATION Metoclopramide HCl 5 mg 05/04/25 00:00 05/11/25 06:03 Metoclopramide Inj 5 Mg/Ml Vial 2 Ml IVP 06/03/25 00:00 5 mg Q6HR [facility] Administration Protocol Midodrine 10 mg 05/10/25 16:05 05/10/25 16:16 Midodrine 5 Mg Tablet PO 06/01/25 10:44 10 mg TID PRN Administration hypotension Mupirocin 2 gm 05/07/25 14:00 05/11/25 06:04 Mupirocin Oint 2% 15 Gm Tube TOP 05/14/25 13:59 1 applicatio TID [facility] Administration Pharmacy Consult 1 each 05/08/25 09:00 Vancomycin Pharmacy To Dose 1 Each Each IV 06/07/25 08:59 QDAY PRN PROTOCOL Plan Kwadwo Sanchez is a 80-year-old male with significant past medical history of chronic respiratory failure s/p trach/PEG tube, chronic, MRSA pneumonia, Pseudomonas UTI, MRSA bacteremia, sacral ulcer, and several other chronic conditions. Patient was admitted to ICU for further management of septic shock secondary to pneumonia and UTI; Downgraded from ICU no longer needing pressors; continuing to manage unresolved sepsis, GI bleed and pending SNF staff availability. #Acute blood loss anemia secondary to GI bleed. - HgB continues to drop 6.6 <-7.6 <- 7.8 - Patient has hematuria - FOBT positive Plan: - Stopped asprin and apixaban. Patient started on Enoxaparin as he has bilateral DVTs - GI consulted, pending recommendation, possible EGD - Monitor CBC - Transfused 1 unit, will check post transfuse HgB #Sepsis #Healthcare associated pneumonia Vs Severe UTI #S/p chronic tracheostomy #Leukocytosis - SIRS criteria (11/07): 98.3 F, HR 108, RR 24, WBCs 20.6 (27 yesterday) and patient is on chronic mechanical ventilation - Chest x-ray revealed bilateral pneumonia. - Blood cultures no growth. - CT A/P 05/02 along with residuals from PEG tube makes aspiration pneumonia another ddx. - Suspicion remains for unidentified source of infection due to patient's intermittent fever, leukocytosis, and tachycardia - General surgery does not recommend surgical debridement of sacral wounds at this time - Venous Duplex US positive for bilateral non-occlusive DVT: possible cause of leukocytosis and fever. - MRI thoracic and lumbar spine with contrast (05/08/25) ruled out spinal epidural abscess as potential source of infection. Noted suspicion for L3-L4 discitis. - Chest CT angio (05/09/25): ruled out pulmonary embolism - RUQ ultrasound (05/10/25): ruled out cholecystitis. Plan: - GI will place PEG tube with gastric/jejunostomy port outpatient - Cont zosyn to finish 7 day course - Cont vancomycin (started on 05/07/2025) - Consulted ID, cont the antibiotics - Mupirocin topical for MRSA in the nares 05/07/2025 - Blood cultures showing no growth - Midodrine 10mg TID as needed if MAP < 65 and SBP <100 - 1g morphine IVP x1, to monitor improvement of vitals with better pain control - Lactulose (40 mg), Glycerin suppository, and enema to address possible constipation associated leukocytosis : patient dropped BP, responded to fluids, had 2 large soft BMs, WBCs improved - Cont monitoring WBCs #Acute DVT Bilatereal non-occlusive common femoral DVT on duplex US Could be the likely cause of new febrile episodes and leukocytosis Pulmonary embolism ruled out by chest CT angio. Plan: - Stopped Apixaban and asprin because the patient has GI bleed. - Started on Lovenox #Hypomagnesemia - resolving (05/10/25) : 2.0 (increased from 1.6 and 1.7) Plan: - Cont to monitor daily magnesium, and watch for symptoms of toxicity. - Replete as needed to keep Mg >2 #MARGARETTE, resolved/improving Likely prerenal leading to ATN secondary to sepsis Cr back at 0.8 (baseline) Plan: - Continue to monitor renal panel. - Avoid nephrotoxins - Nephrology recommends no dialysis #Hyponatremia, resolving Possibly due to renal failure, CHF, cirrhosis The patient presented with sodium of 117, but corrected sodium was 123 --> 05/01, 126 Na 139 on 05/10/2025 Plan: - Will continue to monitor sodium levels #Right heart failure and moderate pulmonary hypertension Echo on 04/27 - showed right ventricular volume/pressure overload, mild to moderate TR, RVSP elevated at 40 to 45 mmHg. EF is 55 to 60% Plan: - Outpatient cardiac cath post discharge to categorize pulmonary hypertension and needs treatment accordingly. - Due to patients other commodities, not a candidate for in-patient management of pulmonary hypertension. #Hypertension, controlled - Using Amlodipine 10mg every day and will Hold medications for now. #Insulin-dependent diabetes mellitus type 2 - A1c: 10.5 - Started on insulin degludec 13 units daily at night, increased to 18 units, adjusted to 22 units as of 05/01 based on blood sugars on morning labs - Sliding scale insulin lispro every 6 hourly with fingerstick blood sugar checks #Microcytic anemia Likely 2/2 anemia of chronic disease, but could not rule out other differentials like nutritional deficiency - Iron panel, ferritin, folic acid, vitamin B12, reticulocyte count, peripheral smear and LDH ordered - showed iron deficiency - Daily a.m. 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 De La Fuente and my senior residents, Dr. Bianchi and Dr. Han Brower, S-IV
[2025-05-11] MEDS: APIXABAN 2.5 MG TABLET 5 MG PO (09:56)
[2025-05-11] MEDS: VANCOMYCIN/D5W 1500 MG IVPB 300 ML 120 MG IV (10:03)
--- NOTE | 2025-05-11 15:13 | PC.SS ---
Rounding Note: EGD is pending. Patient to return to [facility] the [facility] upon discharge.
[2025-05-11 15:52] LABS: Hematocrit 27.6 % (41.0-53.0)
[2025-05-11 15:54] LABS: Hemoglobin 8.7 g/dL (13.5-16.0)
--- NOTE | 2025-05-11 21:19 | ESPR_ITS ---
Documentation for date of: 05/11/25 Subjective Subjective Interval history: Patient evaluated No signs of any GI active bleeding except drop in hemoglobin which I believe is due to hematuria Start the enteral feeding hold off doing any endoscopy at this point Exam Vital Signs Temp Pulse Resp BP Pulse Ox O2 Del Method O2 Flow Rate 97.8 F 110 H 22 H 113/65 97 Mechanical Ventilation 3 05/11/25 20:00 05/11/25 20:00 05/11/25 20:00 05/11/25 20:00 05/11/25 20:00 05/11/25 20:00 05/11/25 20:00 FiO2 30 05/11/25 20:00 Objective Labs 05/11/25 15:26 05/11/25 05:18 Labs: Laboratory Results - last 24 hr 05/11/25 05/11/25 05/11/25 05:18 08:08 15:26 WBC 20.6 H D RBC 2.72 L Hgb 6.6 L* 8.7 L D Hct 22.0 L 27.6 L MCV 81 MCH 24.3 L MCHC 30.0 L RDW Std Deviation 63.0 H Plt Count 319 Neut % (Auto) 87 H Lymph % (Auto) 5 L [place] % (Auto) 5 Eos % (Auto) 3 Baso % (Auto) 0 Neut # (Auto) 17.8 H Lymph # (Auto) 1.0 [place] # (Auto) 1.1 H Eos # (Auto) 0.6 H Baso # (Auto) 0.1 Immature Gran # (Auto) 0.09 H Absolute Nucleated RBC 0.00 Immature Gran % 0 Nucleated RBC % 0 Sodium 142 Potassium 3.7 Chloride 103 Carbon Dioxide 25.6 Anion Gap 13 BUN 30 H Creatinine 1.0 Estim Creat Clear Calc 82.3 eGFR > 60 BUN/Creatinine Ratio 30 H Glucose 170 H Calculated Osmolality 293 Calcium 9.3 Corrected Calcium 10.3 H Phosphorus 4.7 Albumin 2.8 L D Random Vancomycin 14.3 Blood Type O Positive Antibody Screen NEGATIVE Crossmatch See Detail Blood Bank Wristband ID Yes Impressions Impression: Drop in hemoglobin hematocrit most likely due to hematuria and not a case of GI bleed Will closely monitor CBC in the morning and then make a decision whether endoscopy needs to be done I will make him n.p.o. midnight tonight ABG Interpretation ABG results: 04/27/25 04/27/25 04/27/25 02:12 07:39 09:19 ABG pH 7.30 L 7.18 L* D 7.24 L ABG pCO2 41 53 H D 44 ABG pO2 99 98 110 H ABG HCO3 20 20 19 L ABG O2 Saturation 98 98 99 H ABG Base Excess -6 L -9 L -8 L 04/27/25 04/28/25 04/30/25 12:15 04:10 04:21 ABG pH 7.28 L 7.34 L 7.26 L ABG pCO2 39 36 46 D ABG pO2 135 H D 111 H D 66 L D ABG HCO3 18 L 19 L 20 ABG O2 Saturation 100 H 99 H 93 ABG Base Excess -8 L -6 L -6 L 04/30/25 05/01/25 16:15 04:07 ABG pH 7.31 L 7.30 L ABG pCO2 43 50 H ABG pO2 69 L 64 L ABG HCO3 22 25 ABG O2 Saturation 94 93 ABG Base Excess -4 L -2 Assessment & Plan A&P Narrative finish zosynmonday. do not repeat cxr unless he is worse or for 4-6 weeks after the event. he is 80 and on a vent and not interactive, so a discussion about expectations and goals of care is prudent . may be unrealistic in her expectations so please discuss with her as you are able. left on zosyn for now, vanco use per primary team. so they can decide how long. I am ok stopping the vanco and finishing another 3-4d of zosyn empirically. pt remains a full code despite his condition. if worse, you can add back the vanco to finish same time as the zosyn. if you want an all enteral regimen. augmentin is likely the closest to zosyn although some might favor enteral levaquin and flagyl. flagyl has some side effects though so I have tended to go with augmentin enterally. I signed off on monday 05/07 when primary team restarted the vanco after it was stopped. and refused to have a goals of care discussion with pt and . Time Spent With Patient Time: Total time spent is greater than 50% in coordination of care (as documented) at patient's floor/unit and/or counseling patient:
[2025-05-11] MEDS: ENOXAPARIN SOD INJ 120 MG/0.8 ML SYRINGE SC (21:21)
[2025-05-11] MEDS: ACETAMINOPHEN 325 MG TABLET 650 MG PO (21:22)
[2025-05-11] MEDS: INSULIN DEGLUDEC 5 UNIT/0.05 ML (PER 5 UNITS) 22 UNIT SC (21:23)
--- NOTE | 2025-05-11 22:54 | PC.NURSE ---
Called and verified with MD Marquez to waste the 1000ml residual pulled from pt peg tube. per MD due to concern that patient is vomiting, pt is at risk for aspirating. current electrolyte normal range, will replete if necessary.
[2025-05-11] MEDS: RINGERS LACTATED 1000 ML 1,000 ML 100 ML IV (23:08)
[2025-05-12] VITALS (14 sets, daily range): BP systolic 100–132; BP diastolic 56–84; PULSE 90–110; RESP 20–26; TEMP 36.3–37.1; O2SAT 97–100; BMI 40.8
[2025-05-12] MEDS: METOCLOPRAMIDE INJ 5 MG/ML VIAL 2 ML IVP ×2 (05:40→14:41)
[2025-05-12] MEDS: PIPER/TAZO 3.375 GM PREMIX 3.375 GM/50 ML BAG IV ×3 (05:40→21:11)
[2025-05-12] MEDS: MUPIROCIN OINT 2% 15 GM TUBE 2 GM TOP ×2 (05:41→21:25)
[2025-05-12 06:05] LABS: Basophils # (Auto) 0.1 Thou/mm3 (0.0-0.2); Basophils % (Auto) 0 % (0-2.5); Eosinophils # (Auto) 0.3 Thou/mm3 (0.0-0.5); Eosinophils % (Auto) 2 % (0-10); Hematocrit 23.1 % (41.0-53.0); Immature Granulocytes Auto 0.11 Thou/mm3 (0.00-0.00); Lymphocytes # (Auto) 1.3 Thou/mm3 (1.0-4.8); Lymphocytes % (Auto) 7 % (10-50); Mean Corpuscular HGB Conc 31.2 g/dl (31.0-37.0); Mean Corpuscular Hemoglobin 25.4 pg (25.0-35.0); Mean Corpuscular Volume 82 fL (80-100); Monocytes # (Auto) 1.1 Thou/mm3 (0.0-0.8); Monocytes % (Auto) 6 % (0-12); Neutrophils # (Auto) 16.6 Thou/mm3 (1.8-7.7); Neutrophils % (Auto) 85 % (37-80); Nucleated Red Blood Cell # 0.00 Thou/mm3 (0.00-0.00); Nucleated Red Blood Cell % 0 /100 WBC (0); Platelet Count 354 Thou/mm3 (140-440); RDW Standard Deviation 62.8 fL (35.1-43.9); Red Blood Count 2.83 Miln/mm3 (4.50-5.90); White Blood Count 19.5 Thou/mm3 (3.8-10.6)
[2025-05-12 06:10] LABS: Hemoglobin 7.2 g/dL (13.5-16.0)
[2025-05-12] MEDS: ENOXAPARIN SOD INJ 120 MG/0.8 ML SYRINGE SC (09:23)
[2025-05-12] MEDS: RINGERS LACTATED 1000 ML 1,000 ML 100 ML IV (09:23)
[2025-05-12] MEDS: VANCOMYCIN/D5W 1500 MG IVPB 300 ML 120 MG IV (09:24)
--- NOTE | 2025-05-12 10:10 | XR_ITS ---
Examination: Abdomen AP single view Technique: AP portable supine abdomen, single view Exam date and time: May 12, 2025, 10:24 AM Indications: Abdominal distention today. Findings: Large amounts of stool throughout the colon. No obstruction. No free air. 5 cm calcified density which may be in the colon Impression: Large amounts of stool in the colon including the rectal region Recommend CT scan abdomen pelvis follow-up to assess 5 mm calcified density in the left upper abdomen
--- NOTE | 2025-05-12 10:32 | ESPR_ITS ---
<Statement entered by Tee Diallo MD - 05/17/25 07:14> I reviewed above note and agree with findings and plans. I have also personally examined the patient with medicine team and went over assessment and plan with medical team including internetworking technician and resident physician. <Statement entered by Brian Man MD - 05/12/25 17:39> No acute overnight events. Seen and examined at bedside. Reportedly patient had significant residuals and so PEG tube feedings were stopped and patient was started on D5LR. Continues to have gross hematuria from Abbott but appears to be improving. Also had an episode of emesis in the afternoon that appeared dark/coffee-ground in nature. Spoke to family at length in the morning and in afternoon regarding plan to stop anticoagulation and for possible IVC filter after the weekend. Spoke to GI regarding case and will evaluate patient via EGD, planned for today and will follow-up results. ----- Note reviewed and agree with care plan as documented. Please refer to the note below for further details. Plan discussed with attending physician Dr. 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 Stay is currently complicated by bilateral lower extremity DVTs and acute blood loss anemia secondary to hematuria vs GI bleed. Overnight about 1L came out of the PEG tube, tube feeds stopped. Patient was seen at bedside today morning. Generally status unchanged. Abbott bag was grossly bloody. Pale skin color seems to be improving. Exam Vital Signs Temp Pulse Resp BP Pulse Ox O2 Del Method O2 Flow Rate 97.4 F 104 H 21 H 119/66 99 Mechanical Ventilation 3 05/12/25 08:00 05/12/25 08:00 05/12/25 08:00 05/12/25 08:00 05/12/25 08:00 05/12/25 08:00 05/12/25 04:00 FiO2 30 05/12/25 08:00 Narrative Exam General: Obese, chronically ill-appearing man. Tracheostomy on mechanical ventilation. Not responsive to audible or visual stimulus. Neurologic: Unresponsive, unable to move any extremities. Eyes were open and blinking. Patient looked more pale than usual. HEENT: Normocephalic, atraumatic, mucous membranes moist. Heart: Tachycardic, regular rhythm, no murmurs, gallops, or rubs auscultated. Lungs: Clear to auscultation bilaterally with no wheezing or crackles. Abdomen: Obese, firm, distended, decreased bowel sounds MSK/Extremities: 1+ pitting edema bilaterally lower extremities upto the knees. Bilateral upper exteremities also 1+ edema. Equal peripheral pulses. Bilateral lower extremity nails turned black. Objective Labs 05/12/25 05:25 05/11/25 05:18 Labs: Laboratory Results - last 24 hr 05/11/25 05/11/25 05/12/25 08:08 15:26 05:25 WBC 19.5 H RBC 2.83 L Hgb 8.7 L D 7.2 L Hct 27.6 L 23.1 L MCV 82 MCH 25.4 MCHC 31.2 RDW Std Deviation 62.8 H Plt Count 354 D Neut % (Auto) 85 H Lymph % (Auto) 7 L [place] % (Auto) 6 Eos % (Auto) 2 Baso % (Auto) 0 Neut # (Auto) 16.6 H Lymph # (Auto) 1.3 [place] # (Auto) 1.1 H Eos # (Auto) 0.3 Baso # (Auto) 0.1 Immature Gran # (Auto) 0.11 H Absolute Nucleated RBC 0.00 Immature Gran % 1 H Nucleated RBC % 0 Blood Type O Positive Antibody Screen NEGATIVE Crossmatch See Detail Blood Bank Wristband ID Yes ABG Interpretation ABG results: 04/27/25 04/27/25 04/27/25 02:12 07:39 09:19 ABG pH 7.30 L 7.18 L* D 7.24 L ABG pCO2 41 53 H D 44 ABG pO2 99 98 110 H ABG HCO3 20 20 19 L ABG O2 Saturation 98 98 99 H ABG Base Excess -6 L -9 L -8 L 04/27/25 04/28/25 04/30/25 12:15 04:10 04:21 ABG pH 7.28 L 7.34 L 7.26 L ABG pCO2 39 36 46 D ABG pO2 135 H D 111 H D 66 L D ABG HCO3 18 L 19 L 20 ABG O2 Saturation 100 H 99 H 93 ABG Base Excess -8 L -6 L -6 L 04/30/25 05/01/25 16:15 04:07 ABG pH 7.31 L 7.30 L ABG pCO2 43 50 H ABG pO2 69 L 64 L ABG HCO3 22 25 ABG O2 Saturation 94 93 ABG Base Excess -4 L -2 Quality Measures Quality Measures VTE prophylaxis Advance care planning discussed with:: spouse Assessment & Plan Assessment Current Active Medications: Generic Name Dose Route Start Last Admin Trade Name Freq PRN Reason Stop Dose Admin Acetaminophen 650 mg 04/27/25 03:11 05/11/25 21:22 Acetaminophen 325 Mg Tablet PO 05/27/25 03:10 650 mg Q4HR PRN Administration PAIN SCALE 1-3 (mild Acetaminophen 1,000 mg 05/07/25 15:20 05/11/25 04:56 Acetaminophen 500 Mg Tablet PO 06/06/25 15:19 1,000 mg Q6HR PRN Administration Fever >99.5 Amlodipine Besylate 10 mg 05/04/25 09:00 05/10/25 09:00 Amlodipine Besylate 5 Mg Tablet GT 06/03/25 08:59 10 mg On Hold: 05/10/25 15:58 QDAY IMANI Administration Dextrose 50 ml 04/27/25 03:37 Dextrose 50%-Water Inj 50 Ml Syringe IV 05/27/25 03:36 Q15MIN PRN BG <50 OR BG <70 & pt unresponsive Glucagon 1 mg 04/27/25 03:37 Glucagon Inj 1 Mg Vial IM Q15MIN PRN BG <70, and no IV access Heparin Sodium (Porcine) 3,000 unit 04/30/25 11:01 05/03/25 11:49 Heparin Sod Inj 1000 Unit/Ml Vial 10 Ml INDWELLCAT 05/14/25 11:00 3,000 unit PRN PRN Administration DIALYSIS Piperacillin/Tazobactam/Dextrose 3.375 gm in 50 mls @ 12.5 mls/hr 05/07/25 22:00 05/12/25 05:40 Zosyn IV 05/14/25 21:59 12.5 mls/hr Q8HR IMANI Administration Vancomycin HCl/Dextrose 300 mls @ 120 mls/hr 05/11/25 10:00 05/12/25 09:24 Vancomycin/D5w 1500 Mg Ivpb IV 05/18/25 09:59 120 mls/hr Q24H IMANI Administration Protocol Lactated Ringer's 1,000 mls @ 100 mls/hr 05/11/25 22:56 05/12/25 09:23 Lactated Ringers IV 06/10/25 22:55 100 mls/hr .Q10H IMANI Administration Insulin Degludec 22 unit 05/01/25 21:00 05/11/25 21:23 Insulin Degludec 5 Unit/0.05 Ml (Per 5 Units) SC 05/31/25 20:59 22 unit HS IMANI Administration Insulin Human Lispro 0 unit 04/27/25 06:00 05/12/25 05:43 Insulin Lispro (Admelog) 1 Unit/0.01 Ml Unit SC 05/27/25 05:59 Not Given Q6HR PENDING SALE TO [facility] Protocol Magnesium Hydroxide 30 ml 04/27/25 03:11 Milk Of Magnesia Susp 30 Ml Udc PO 05/27/25 03:10 QDAY PRN CONSTIPATION Metoclopramide HCl 5 mg 05/04/25 00:00 05/12/25 05:40 Metoclopramide Inj 5 Mg/Ml Vial 2 Ml IVP 06/03/25 00:00 5 mg Q6HR IMANI Administration Protocol Midodrine 10 mg 05/10/25 16:05 05/10/25 16:16 Midodrine 5 Mg Tablet PO 06/01/25 10:44 10 mg TID PRN Administration hypotension Mupirocin 2 gm 05/07/25 14:00 05/12/25 05:41 Mupirocin Oint 2% 15 Gm Tube TOP 05/14/25 13:59 1 applicatio TID IMANI Administration Pharmacy Consult 1 each 05/08/25 09:00 Vancomycin Pharmacy To Dose 1 Each Each IV 06/07/25 08:59 QDAY PRN PROTOCOL Plan Kwadwo Sanchez is a 80-year-old male with significant past medical history of chronic respiratory failure s/p trach/PEG tube, chronic, MRSA pneumonia, Pseudomonas UTI, MRSA bacteremia, sacral ulcer, and several other chronic conditions. Patient was admitted to ICU for further management of septic shock secondary to pneumonia and UTI; Downgraded from ICU no longer needing pressors; continuing to manage unresolved sepsis, acute blood loss anemia secondary to hematuria vs GI bleed, lower extremity bilateral DVT, and pending SNF availability. #Acute blood loss anemia secondary to GI bleed vs hematuria. - HgB continues to drop 7.4 < 8.7 (post 1 unit)<6.6 <-7.6 <- 7.8 - 1 unit prbc transfused on (05/12/25) - Patient has hematuria - FOBT positive Plan: - Stopped anticoagulation used for DVTs due to new acute bleeding - GI consulted, believes blood loss more likely to be from hematuria, will consider an EGD - Monitor daily CBC - Will transfuse ig HgB continues to drop or if anemia symptoms develop. #Acute DVT Bilatereal non-occlusive common femoral DVT on duplex US Could be the likely cause of new febrile episodes and leukocytosis Pulmonary embolism ruled out by chest CT angio. Plan: - Stopped anticoagulation because of the bleeding. - Risk and benefits of anticoagulation in the setting of DVT and active bleeding explained to family. - Will consult interventional radiology to access the possibility of an IVC filter. #Sepsis #Healthcare associated pneumonia Vs Severe UTI #S/p chronic tracheostomy #Leukocytosis - SIRS criteria (11/07): 97.4 F, HR 104, RR 24, WBCs 19.5 and patient is on chronic mechanical ventilation - Chest x-ray revealed bilateral pneumonia. - Blood cultures no growth. - CT A/P 05/02 along with residuals from PEG tube makes aspiration pneumonia another ddx. - Suspicion remains for unidentified source of infection due to patient's intermittent fever, leukocytosis, and tachycardia - General surgery does not recommend surgical debridement of sacral wounds at this time - Venous Duplex US positive for bilateral non-occlusive DVT: possible cause of leukocytosis and fever. - MRI thoracic and lumbar spine with contrast (05/08/25) ruled out spinal epidural abscess as potential source of infection. Noted suspicion for L3-L4 discitis. - Chest CT angio (05/09/25): ruled out pulmonary embolism - RUQ ultrasound (05/10/25): ruled out cholecystitis. Plan: - GI will place PEG tube with gastric/jejunostomy port outpatient - Cont zosyn to finish 7 day course (ending on 05/14/25) - Cont vancomycin (started on 05/07/2025) - Consulted ID, cont the antibiotics - Mupirocin topical for MRSA in the nares 05/07/2025 - Blood cultures showing no growth - Midodrine 10mg TID as needed if MAP < 65 and SBP <100 - 1g morphine IVP x1, to monitor improvement of vitals with better pain control - Lactulose (40 mg), Glycerin suppository, and enema to address possible constipation associated leukocytosis : patient dropped BP, responded to fluids, had 2 large soft BMs, WBCs improved - Cont monitoring WBCs #Hypomagnesemia - resolving (05/10/25) : 2.0 (increased from 1.6 and 1.7) Plan: - Cont to monitor daily magnesium, and watch for symptoms of toxicity. - Replete as needed to keep Mg >2 #MARGARETTE, resolved/improving Likely prerenal leading to ATN secondary to sepsis Cr back at 0.8 (baseline) Plan: - Continue to monitor renal panel. - Avoid nephrotoxins - Nephrology recommends no dialysis #Hyponatremia, resolving Possibly due to renal failure, CHF, cirrhosis The patient presented with sodium of 117, but corrected sodium was 123 --> 05/01, 126 Na 139 on 05/10/2025 Plan: - Will continue to monitor sodium levels #Right heart failure and moderate pulmonary hypertension Echo on 04/27 - showed right ventricular volume/pressure overload, mild to moderate TR, RVSP elevated at 40 to 45 mmHg. EF is 55 to 60% Plan: - Outpatient cardiac cath post discharge to categorize pulmonary hypertension and needs treatment accordingly. - Due to patients other commodities, not a candidate for in-patient management of pulmonary hypertension. #Hypertension, controlled - Using Amlodipine 10mg every day and will Hold medications for now. #Insulin-dependent diabetes mellitus type 2 - A1c: 10.5 - Started on insulin degludec 13 units daily at night, increased to 18 units, adjusted to 22 units as of 05/01 based on blood sugars on morning labs - Sliding scale insulin lispro every 6 hourly with fingerstick blood sugar checks #Microcytic anemia Likely 2/2 anemia of chronic disease, but could not rule out other differentials like nutritional deficiency - Iron panel, ferritin, folic acid, vitamin B12, reticulocyte count, peripheral smear and LDH ordered - showed iron deficiency - Daily a.m. 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 Diallo and my senior resident Dr. Han Brower, S-IV
--- NOTE | 2025-05-12 12:45 | PC.NURSE ---
Notified MD that pt blood sugar going down due to pt off feeding due to vomiting last night, also notifed MD that family is requesting a urology consult
[2025-05-12] MEDS: DEXTROSE 5%-LACTATED RINGERS 1,000 ML 100 ML IV ×2 (14:56→23:59)
--- NOTE | 2025-05-12 15:37 | XR_ITS ---
Examination: AP chest single view Technique: Portable AP semiupright chest single view Date and time: May 12, 2025, 1550 hrs., Comparison 05/07/2025 Indications: Post orogastric tube placement Findings: Orogastric tube in the stomach satisfactory position. Moderate enlargement left ventricle. Significant left base pneumonia. Mild heart failure. Endotracheal tube tip 7.5 cm above monica. Impression: Orogastric tube in the stomach satisfactory position.
--- NOTE | 2025-05-12 16:31 | PC.SS ---
Aerospace Assembler (SW) Cathy received a phone call from bedside RN-Aleshia who requested for SW to go to patient's room and discuss some information with family. SW met with patient's , Sherlyn who had concerns regarding medical staff behavior. Feller Machine Operator, Sylvie made aware. No social needs at this time.
--- NOTE | 2025-05-12 18:08 | SUR.PHASEI ---
pt to rm [id number] in stable condition with Anesthesia provider, RT and field sales agent
[2025-05-13] VITALS (15 sets, daily range): BP systolic 92–129; BP diastolic 58–90; PULSE 90–110; RESP 18–27; TEMP 36.1–36.9; O2SAT 95–100; BMI 40.8
[2025-05-13] MEDS: METOCLOPRAMIDE INJ 5 MG/ML VIAL 2 ML IVP ×3 (00:02→12:49)
[2025-05-13] MEDS: INSULIN LISPRO (AdmeLOG) 1 UNIT/0.01 ML UNIT SC ×2 (05:29→12:50)
[2025-05-13] MEDS: PIPER/TAZO 3.375 GM PREMIX 3.375 GM/50 ML BAG IV ×3 (05:30→22:44)
[2025-05-13] MEDS: MUPIROCIN OINT 2% 15 GM TUBE 2 GM TOP ×3 (05:31→22:44)
[2025-05-13 06:31] LABS: Basophils # (Auto) 0.1 Thou/mm3 (0.0-0.2); Basophils % (Auto) 1 % (0-2.5); Eosinophils # (Auto) 0.5 Thou/mm3 (0.0-0.5); Eosinophils % (Auto) 4 % (0-10); Hematocrit 21.0 % (41.0-53.0); Immature Granulocytes Auto 0.05 Thou/mm3 (0.00-0.00); Lymphocytes # (Auto) 1.3 Thou/mm3 (1.0-4.8); Lymphocytes % (Auto) 9 % (10-50); Mean Corpuscular HGB Conc 31.0 g/dl (31.0-37.0); Mean Corpuscular Hemoglobin 25.5 pg (25.0-35.0); Mean Corpuscular Volume 82 fL (80-100); Monocytes # (Auto) 0.9 Thou/mm3 (0.0-0.8); Monocytes % (Auto) 6 % (0-12); Neutrophils # (Auto) 11.6 Thou/mm3 (1.8-7.7); Neutrophils % (Auto) 80 % (37-80); Nucleated Red Blood Cell # 0.00 Thou/mm3 (0.00-0.00); Nucleated Red Blood Cell % 0 /100 WBC (0); Platelet Count 365 Thou/mm3 (140-440); RDW Standard Deviation 63.5 fL (35.1-43.9); Red Blood Count 2.55 Miln/mm3 (4.50-5.90); White Blood Count 14.5 Thou/mm3 (3.8-10.6)
[2025-05-13 06:33] LABS: Hemoglobin 6.5 g/dL (13.5-16.0)
[2025-05-13 07:24] LABS: Albumin, Serum 2.9 gm/dL (3.4-4.8); Anion Gap 12 (7-16); BUN/Creatinine Ratio 36 Ratio (12-20); Blood Urea Nitrogen 36 mg/dL (9-23); Calcium 9.1 mg/dL (8.3-10.6); Calcium (Corrected) 10.0 mg/dL (8.5-10.1); Carbon Dioxide 30.3 mMol/L (20.0-31.0); Chloride 102 mMol/L (98-107); Creatinine (Component) 1.0 mg/dL (0.6-1.3); Estimated Creatinine Clearance 82.3 mL/min (>60); Glucose 186 mg/dL (74-106); Osmolality,Calculated 300 (275-295); Phosphorous 3.3 mg/dL (2.4-5.1); Potassium 3.4 mMol/L (3.4-5.1); Sodium 144 mMol/L (136-145); eGFR > 60 See Note
[2025-05-13 08:59] LABS: Hematocrit 20.6 % (41.0-53.0)
[2025-05-13 09:20] LABS: Hemoglobin 6.4 g/dL (13.5-16.0)
[2025-05-13 09:22] LABS: Vancomycin,Trough 27.1 mcg/mL (5.0-10.0)
[2025-05-13] MEDS: SUCRALFATE 1 GM TABLET GT ×2 (14:07→22:44)
--- NOTE | 2025-05-13 14:15 | XR_ITS ---
Examination: Abdomen AP single view Technique: AP portable supine abdomen, single view Exam date and time: 05/13/2025 Indications: Abdomina distension today Findings: Large amounts of stool throughout the colon Eileen ostomy tube satisfactory position. No obstruction OGT satisfactory position Impression: Large amounts of stool throughout the colon
[2025-05-13 15:30] LABS: Hematocrit 21.7 % (41.0-53.0)
--- NOTE | 2025-05-13 15:32 | ESPR_ITS ---
<Statement entered by Tee Diallo MD - 05/17/25 14:17> I reviewed above note and agree with findings and plans. I have also personally examined the patient with medicine team and went over assessment and plan with medical team including music internship and resident physician. <Statement entered by Jatinder Bianchi MD - 05/14/25 07:59> Patient examined and case discussed with the team including attending physician. Note reviewed, I agree with the care plan as documented. Please refer to the note below for further details. - Jatinder Bianchi MD, PGY 3 Disclaimer: The document may contain phonetic/typographic errors due to voice recognition software. These errors are purely due to imperfections in the software program. 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 Stay is currently complicated by bilateral lower extremity DVTs and acute blood loss anemia secondary to hematuria vs GI bleed. Patient underwent EGD study yesterday. Patient was seen at bedside today morning. Generally status unchanged. He is unresponsive and does not open eyes to calls of the provider in the room. Abbott bag was grossly bloody. Pale skin color seems to be improving. Imaging demenstrated ileus without evidence of obstruction. Exam Vital Signs Temp Pulse Resp BP Pulse Ox O2 Del Method O2 Flow Rate 97.6 F 98 20 92/58 L 99 Mechanical Ventilation 3 05/13/25 13:20 05/13/25 13:20 05/13/25 13:20 05/13/25 13:20 05/13/25 13:20 05/13/25 12:00 05/12/25 04:00 FiO2 30 05/13/25 12:15 Narrative Exam General: Obese, chronically ill-appearing man. Tracheostomy on mechanical ventilation. Not responsive to audible or visual stimulus. Neurologic: Unresponsive, unable to move any extremities. Eyes were open and blinking. Patient looked more pale than usual. HEENT: Normocephalic, atraumatic, mucous membranes moist. Heart: Tachycardic, regular rhythm, no murmurs, gallops, or rubs auscultated. Lungs: Clear to auscultation bilaterally with no wheezing or crackles. Abdomen: Obese, firm, distended, decreased bowel sounds MSK/Extremities: 1+ pitting edema bilaterally lower extremities upto the knees. Bilateral upper exteremities also 1+ edema. Equal peripheral pulses. Bilateral lower extremity nails turned black. Objective Labs 05/13/25 15:16 05/13/25 05:34 Labs: Laboratory Results - last 24 hr 05/11/25 05/13/25 05/13/25 08:08 05:34 08:31 WBC 14.5 H D RBC 2.55 L Hgb 6.5 L* 6.4 L* Hct 21.0 L* 20.6 L* MCV 82 MCH 25.5 MCHC 31.0 RDW Std Deviation 63.5 H Plt Count 365 Neut % (Auto) 80 Lymph % (Auto) 9 L [place] % (Auto) 6 Eos % (Auto) 4 Baso % (Auto) 1 Neut # (Auto) 11.6 H Lymph # (Auto) 1.3 [place] # (Auto) 0.9 H Eos # (Auto) 0.5 Baso # (Auto) 0.1 Immature Gran # (Auto) 0.05 H Absolute Nucleated RBC 0.00 Immature Gran % 0 Nucleated RBC % 0 Sodium 144 Potassium 3.4 Chloride 102 Carbon Dioxide 30.3 Anion Gap 12 BUN 36 H Creatinine 1.0 Estim Creat Clear Calc 82.3 eGFR > 60 BUN/Creatinine Ratio 36 H Glucose 186 H Calculated Osmolality 300 H Calcium 9.1 Corrected Calcium 10.0 Phosphorus 3.3 Albumin 2.9 L Vancomycin Trough 27.1 H* Blood Type O Positive Antibody Screen NEGATIVE Crossmatch See Detail Blood Bank Wristband ID Yes ABG Interpretation ABG results: 04/27/25 04/27/25 04/27/25 02:12 07:39 09:19 ABG pH 7.30 L 7.18 L* D 7.24 L ABG pCO2 41 53 H D 44 ABG pO2 99 98 110 H ABG HCO3 20 20 19 L ABG O2 Saturation 98 98 99 H ABG Base Excess -6 L -9 L -8 L 04/27/25 04/28/25 04/30/25 12:15 04:10 04:21 ABG pH 7.28 L 7.34 L 7.26 L ABG pCO2 39 36 46 D ABG pO2 135 H D 111 H D 66 L D ABG HCO3 18 L 19 L 20 ABG O2 Saturation 100 H 99 H 93 ABG Base Excess -8 L -6 L -6 L 04/30/25 05/01/25 16:15 04:07 ABG pH 7.31 L 7.30 L ABG pCO2 43 50 H ABG pO2 69 L 64 L ABG HCO3 22 25 ABG O2 Saturation 94 93 ABG Base Excess -4 L -2 Quality Measures Quality Measures VTE prophylaxis Advance care planning discussed with:: spouse Assessment & Plan Assessment Current Active Medications: Generic Name Dose Route Start Last Admin Trade Name Freq PRN Reason Stop Dose Admin Acetaminophen 1,000 mg 05/07/25 15:20 05/11/25 04:56 Acetaminophen 500 Mg Tablet PO 06/06/25 15:19 1,000 mg Q6HR PRN Administration Fever >99.5 Amlodipine Besylate 5 mg 05/13/25 21:00 Amlodipine Besylate 5 Mg Tablet GT 06/12/25 20:59 HS IMANI Dextrose 50 ml 04/27/25 03:37 Dextrose 50%-Water Inj 50 Ml Syringe IV 05/27/25 03:36 Q15MIN PRN BG <50 OR BG <70 & pt unresponsive Glucagon 1 mg 04/27/25 03:37 Glucagon Inj 1 Mg Vial IM Q15MIN PRN BG <70, and no IV access Heparin Sodium (Porcine) 3,000 unit 04/30/25 11:01 05/03/25 11:49 Heparin Sod Inj 1000 Unit/Ml Vial 10 Ml INDWELLCAT 05/14/25 11:00 3,000 unit PRN PRN Administration DIALYSIS Piperacillin/Tazobactam/Dextrose 3.375 gm in 50 mls @ 12.5 mls/hr 05/07/25 22:00 05/13/25 14:06 Zosyn IV 05/14/25 21:59 12.5 mls/hr Q8HR IMANI Administration Insulin Degludec 25 unit 05/13/25 21:00 Insulin Degludec 5 Unit/0.05 Ml (Per 5 Units) SC 06/12/25 20:59 HS [facility] Insulin Human Lispro 0 unit 04/27/25 06:00 05/13/25 12:50 Insulin Lispro (Admelog) 1 Unit/0.01 Ml Unit SC 05/27/25 05:59 1 unit Q6HR IMANI Administration Protocol Metoclopramide HCl 5 mg 05/04/25 00:00 05/13/25 12:49 Metoclopramide Inj 5 Mg/Ml Vial 2 Ml IVP 06/03/25 00:00 5 mg Q6HR IMANI Administration Protocol Midodrine 10 mg 05/13/25 10:32 Midodrine 5 Mg Tablet PO 06/01/25 10:44 TID PRN hypotension SBP <95 Mupirocin 2 gm 05/07/25 14:00 05/13/25 14:08 Mupirocin Oint 2% 15 Gm Tube TOP 05/14/25 13:59 1 applicatio TID IMANI Administration Pantoprazole Sodium 40 mg 05/13/25 10:30 05/13/25 10:53 Pantoprazole Inj 40 Mg Vial IVP 06/12/25 10:29 40 mg BID IMANI Administration Pharmacy Consult 1 each 05/08/25 09:00 Vancomycin Pharmacy To Dose 1 Each Each IV 06/07/25 08:59 QDAY PRN PROTOCOL Sucralfate 1 gm 05/13/25 14:00 05/13/25 14:07 Sucralfate 1 Gm Tablet GT 06/12/25 13:59 1 gm TID IMANI Administration Plan Kwadwo Sanchez is a 80-year-old male with significant past medical history of chronic respiratory failure s/p trach/PEG tube, chronic, MRSA pneumonia, Pseudomonas UTI, MRSA bacteremia, sacral ulcer, and several other chronic conditions. Patient was admitted to ICU for further management of septic shock secondary to pneumonia and UTI; Downgraded from ICU no longer needing pressors; continuing to manage unresolved sepsis, acute blood loss anemia secondary to hematuria vs GI bleed, lower extremity bilateral DVT, and pending SNF availability. #Acute blood loss anemia 2/2 #Upper GI bleed #hematuria, lesser contributor to anemia #Gastrointestinal Motility vs ileus vs SBO - HgB continues to drop 6.5 < 7.4 < 8.7 (post 1 unit)<6.6 <-7.6 <- 7.8 - 2 unit prbc transfused on (05/13/25), Hgb improved to 6.9 after the first unit. Because still <7, gave an additional unit of blood. Pending H&H post- transfusion of the 2nd bag. - Patient has hematuria - FOBT positive - EGD (05/12): esophageal varices, and diffuse gastritis. Massive bilous secretions in descending duodenum which was aspirated in the body of the stomach, too, as patient was vomiting as well as coffee-ground material in the body of stomach. About 300cc of bilous secretions was aspirated during the procedure. Plan: - Stopped anticoagulation used for DVTs due to new acute bleeding - GI consulted, appreciate recs - hold feeding through NGT except for meds - Protonix IV 40mg bid - Sucralfate GT 1g TID - KUB ordered - Monitor daily CBC - Will transfuse ig HgB continues to drop or if anemia symptoms develop. #Acute DVT Bilatereal non-occlusive common femoral DVT on duplex US Could be the likely cause of new febrile episodes and leukocytosis Pulmonary embolism ruled out by chest CT angio. Plan: - Stopped anticoagulation because of the bleeding. - Risk and benefits of anticoagulation in the setting of DVT and active bleeding explained to family. - consulted interventional radiology to access the possibility of an IVC filter. Patient will be NPO after midnight. #Sepsis #Healthcare associated pneumonia Vs Severe UTI #S/p chronic tracheostomy #Leukocytosis - SIRS criteria (11/07): 97.4 F, HR 104, RR 24, WBCs 19.5 and patient is on chronic mechanical ventilation - WBC 14.5 (19.5) improving - Chest x-ray revealed bilateral pneumonia. - Blood cultures no growth. - CT A/P 05/02 along with residuals from PEG tube makes aspiration pneumonia another ddx. - Suspicion remains for unidentified source of infection due to patient's intermittent fever, leukocytosis, and tachycardia - General surgery does not recommend surgical debridement of sacral wounds at this time - Venous Duplex US positive for bilateral non-occlusive DVT: possible cause of leukocytosis and fever. - MRI thoracic and lumbar spine with contrast (05/08/25) ruled out spinal epidural abscess as potential source of infection. Noted suspicion for L3-L4 discitis. - Chest CT angio (05/09/25): ruled out pulmonary embolism - RUQ ultrasound (05/10/25): ruled out cholecystitis. Plan: - GI will place PEG tube with gastric/jejunostomy port outpatient - Cont zosyn to finish 7 day course (ending on 05/14/25) - Cont vancomycin (started on 05/07/2025) - Consulted ID, cont the antibiotics - Mupirocin topical for MRSA in the nares 05/07/2025 - Blood cultures showing no growth - Midodrine 10mg TID as needed if MAP < 65 and SBP <100 - 1g morphine IVP x1, to monitor improvement of vitals with better pain control - Lactulose (40 mg), Glycerin suppository, and enema to address possible constipation associated leukocytosis : patient dropped BP, responded to fluids, had 2 large soft BMs, WBCs improved - Cont monitoring WBCs #Hypomagnesemia - resolving (05/13/25) : 2.0 (increased from 1.6 and 1.7) Plan: - Cont to monitor daily magnesium, and watch for symptoms of toxicity. - Replete as needed to keep Mg >2 #MARGARETTE, resolved/improving Likely prerenal leading to ATN secondary to sepsis Cr 1.0 (baseline) Plan: - Continue to monitor renal panel. - Avoid nephrotoxins - Nephrology recommends no dialysis #Hyponatremia, resolving Possibly due to renal failure, CHF, cirrhosis The patient presented with sodium of 117, but corrected sodium was 123 --> 05/01, 126 Na 139 on 05/10/2025, and 144 on 05/13 Plan: - Will continue to monitor sodium levels #Right heart failure and moderate pulmonary hypertension Echo on 04/27 - showed right ventricular volume/pressure overload, mild to moderate TR, RVSP elevated at 40 to 45 mmHg. EF is 55 to 60% Plan: - Outpatient cardiac cath post discharge to categorize pulmonary hypertension and needs treatment accordingly. - Due to patients other commodities, not a candidate for in-patient management of pulmonary hypertension. #Hypertension, controlled - Using Amlodipine 10mg every day and will Hold medications for now. #Insulin-dependent diabetes mellitus type 2 - A1c: 10.5 - Started on insulin degludec 13 units daily at night, increased to 18 units, adjusted to 22 units as of 05/01 based on blood sugars on morning labs - Sliding scale insulin lispro every 6 hourly with fingerstick blood sugar checks #Microcytic anemia Likely 2/2 anemia of chronic disease, but could not rule out other differentials like nutritional deficiency - Iron panel, ferritin, folic acid, vitamin B12, reticulocyte count, peripheral smear and LDH ordered - showed iron deficiency - Daily a.m. 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 Diallo and my senior resident Dr. Han Brower, OMS-IV
[2025-05-13 15:48] LABS: Hemoglobin 6.9 g/dL (13.5-16.0)
--- NOTE | 2025-05-13 16:55 | ESPR_ITS ---
Documentation for date of: 05/13/25 Subjective Subjective Interval history: Upper endoscopy showed a lot of coffee-ground material in the body of the stomach visibility was extremely poor Distal esophageal erosions Hemoglobin remains low at 6.9 and 21.7 Will continue to monitor in the NGT suction to continue Exam Vital Signs Temp Pulse Resp BP Pulse Ox O2 Del Method O2 Flow Rate 97.6 F 98 20 92/58 L 99 Mechanical Ventilation 3 05/13/25 13:20 05/13/25 13:20 05/13/25 13:20 05/13/25 13:20 05/13/25 13:20 05/13/25 12:00 05/12/25 04:00 FiO2 30 05/13/25 16:00 Objective Labs 05/13/25 15:16 05/13/25 05:34 Labs: Laboratory Results - last 24 hr 05/11/25 05/13/25 05/13/25 08:08 05:34 08:31 WBC 14.5 H D RBC 2.55 L Hgb 6.5 L* 6.4 L* Hct 21.0 L* 20.6 L* MCV 82 MCH 25.5 MCHC 31.0 RDW Std Deviation 63.5 H Plt Count 365 Neut % (Auto) 80 Lymph % (Auto) 9 L [place] % (Auto) 6 Eos % (Auto) 4 Baso % (Auto) 1 Neut # (Auto) 11.6 H Lymph # (Auto) 1.3 [place] # (Auto) 0.9 H Eos # (Auto) 0.5 Baso # (Auto) 0.1 Immature Gran # (Auto) 0.05 H Absolute Nucleated RBC 0.00 Immature Gran % 0 Nucleated RBC % 0 Sodium 144 Potassium 3.4 Chloride 102 Carbon Dioxide 30.3 Anion Gap 12 BUN 36 H Creatinine 1.0 Estim Creat Clear Calc 82.3 eGFR > 60 BUN/Creatinine Ratio 36 H Glucose 186 H Calculated Osmolality 300 H Calcium 9.1 Corrected Calcium 10.0 Phosphorus 3.3 Albumin 2.9 L Vancomycin Trough 27.1 H* Blood Type O Positive Antibody Screen NEGATIVE Crossmatch See Detail Blood Bank Wristband ID Yes 05/13/25 15:16 WBC RBC Hgb 6.9 L* Hct 21.7 L* MCV MCH MCHC RDW Std Deviation Plt Count Neut % (Auto) Lymph % (Auto) [place] % (Auto) Eos % (Auto) Baso % (Auto) Neut # (Auto) Lymph # (Auto) [place] # (Auto) Eos # (Auto) Baso # (Auto) Immature Gran # (Auto) Absolute Nucleated RBC Immature Gran % Nucleated RBC % Sodium Potassium Chloride Carbon Dioxide Anion Gap BUN Creatinine Estim Creat Clear Calc eGFR BUN/Creatinine Ratio Glucose Calculated Osmolality Calcium Corrected Calcium Phosphorus Albumin Vancomycin Trough Blood Type Antibody Screen Crossmatch Blood Bank Wristband ID Impressions Impression: Posthemorrhagic anemia Coffee-ground material throughout the body of the stomach extending into the gastrointestinal motility disorder or a ileus versus small bowel obstruction Continue current management Will get a KUB ABG Interpretation ABG results: 04/27/25 04/27/25 04/27/25 02:12 07:39 09:19 ABG pH 7.30 L 7.18 L* D 7.24 L ABG pCO2 41 53 H D 44 ABG pO2 99 98 110 H ABG HCO3 20 20 19 L ABG O2 Saturation 98 98 99 H ABG Base Excess -6 L -9 L -8 L 04/27/25 04/28/25 04/30/25 12:15 04:10 04:21 ABG pH 7.28 L 7.34 L 7.26 L ABG pCO2 39 36 46 D ABG pO2 135 H D 111 H D 66 L D ABG HCO3 18 L 19 L 20 ABG O2 Saturation 100 H 99 H 93 ABG Base Excess -8 L -6 L -6 L 04/30/25 05/01/25 16:15 04:07 ABG pH 7.31 L 7.30 L ABG pCO2 43 50 H ABG pO2 69 L 64 L ABG HCO3 22 25 ABG O2 Saturation 94 93 ABG Base Excess -4 L -2 Assessment & Plan A&P Narrative finish zosynmonday. do not repeat cxr unless he is worse or for 4-6 weeks after the event. he is 80 and on a vent and not interactive, so a discussion about expectations and goals of care is prudent . may be unrealistic in her expectations so please discuss with her as you are able. left on zosyn for now, vanco use per primary team. so they can decide how long. I am ok stopping the vanco and finishing another 3-4d of zosyn empirically. pt remains a full code despite his condition. if worse, you can add back the vanco to finish same time as the zosyn. if you want an all enteral regimen. augmentin is likely the closest to zosyn although some might favor enteral levaquin and flagyl. flagyl has some side effects though so I have tended to go with augmentin enterally. I signed off on monday 05/07 when primary team restarted the vanco after it was stopped. and refused to have a goals of care discussion with pt and . Time Spent With Patient Time: Total time spent is greater than 50% in coordination of care (as documented) at patient's floor/unit and/or counseling patient:
--- NOTE | 2025-05-13 18:36 | PC.NURSE ---
Per Charge Nurse Lily, caustic cresylate shift superintendent will be starting 2nd unit of PRBC that is ready at lab d/t some miscommunications with orders from Dr. Champion.
[2025-05-13 22:27] LABS: Hematocrit 23.8 % (41.0-53.0)
[2025-05-13 22:30] LABS: Hemoglobin 7.6 g/dL (13.5-16.0)
[2025-05-14] VITALS (17 sets, daily range): BP systolic 119–149; BP diastolic 69–86; PULSE 82–108; RESP 18–23; TEMP 36.1–36.9; O2SAT 96–100; BMI 40.0
--- NOTE | 2025-05-14 | XR_ITS ---
Examination: Abdomen AP single view Technique: AP portable supine abdomen, single view Exam date and time: May 14, 2025, 1800 hrs. Indications: Abdominal pain and distention this week, 3 hour delayed film post small bowel series Findings: Contrast in mildly distended small bowel loops. However, contrast is now present in the right colon Impression: Negative for small bowel obstruction. No further films are needed.
--- NOTE | 2025-05-14 | XR_ITS ---
Examination: Attempted percutaneous placement inferior venacavogram filter Fluoroscopy AP pelvis single view Date and time: May 14, 2025 1131 hours Technique an findings: Sonographic assessment of the right and left common femoral veins demonstrates occlusive thrombus in both veins, precluding successful percutaneous access IMPRESSION: Right and left common femoral veins demonstrate occlusive thrombus precluding successful percutaneous access
[2025-05-14] MEDS: METOCLOPRAMIDE INJ 5 MG/ML VIAL 2 ML IVP ×3 (00:12→17:30)
[2025-05-14] MEDS: PIPER/TAZO 3.375 GM PREMIX 3.375 GM/50 ML BAG IV (05:35)
[2025-05-14] MEDS: MUPIROCIN OINT 2% 15 GM TUBE 2 GM TOP (05:41)
[2025-05-14] MEDS: SUCRALFATE 1 GM TABLET GT ×3 (05:41→22:39)
[2025-05-14 06:09] LABS: Basophils # (Auto) 0.1 Thou/mm3 (0.0-0.2); Basophils % (Auto) 1 % (0-2.5); Eosinophils # (Auto) 0.8 Thou/mm3 (0.0-0.5); Eosinophils % (Auto) 7 % (0-10); Hematocrit 26.5 % (41.0-53.0); Immature Granulocytes Auto 0.04 Thou/mm3 (0.00-0.00); Lymphocytes # (Auto) 1.0 Thou/mm3 (1.0-4.8); Lymphocytes % (Auto) 9 % (10-50); Mean Corpuscular HGB Conc 32.5 g/dl (31.0-37.0); Mean Corpuscular Hemoglobin 27.1 pg (25.0-35.0); Mean Corpuscular Volume 84 fL (80-100); Monocytes # (Auto) 0.7 Thou/mm3 (0.0-0.8); Monocytes % (Auto) 6 % (0-12); Neutrophils # (Auto) 8.1 Thou/mm3 (1.8-7.7); Neutrophils % (Auto) 76 % (37-80); Nucleated Red Blood Cell # 0.00 Thou/mm3 (0.00-0.00); Nucleated Red Blood Cell % 0 /100 WBC (0); Platelet Count 361 Thou/mm3 (140-440); RDW Standard Deviation 61.0 fL (35.1-43.9); Red Blood Count 3.17 Miln/mm3 (4.50-5.90); White Blood Count 10.7 Thou/mm3 (3.8-10.6)
[2025-05-14 06:14] LABS: Hemoglobin 8.6 g/dL (13.5-16.0)
[2025-05-14 06:20] LABS: Alanine Aminotransferase 12 U/L (10-49); Albumin, Serum 2.8 gm/dL (3.4-4.8); Albumin/Globulin Ratio 0.7 (1.2-2.2); Alkaline Phosphatase 130 U/L (46-116); Anion Gap 10 (7-16); Aspartate Amino Transferase 21 U/L (0-34); BUN/Creatinine Ratio 31 Ratio (12-20); Bilirubin,Total 0.9 mg/dL (0.3-1.2); Blood Urea Nitrogen 28 mg/dL (9-23); Calcium 9.3 mg/dL (8.3-10.6); Calcium (Corrected) 10.3 mg/dL (8.5-10.1); Carbon Dioxide 30.6 mMol/L (20.0-31.0); Chloride 105 mMol/L (98-107); Creatinine (Component) 0.9 mg/dL (0.6-1.3); Estimated Creatinine Clearance 90.4 mL/min (>60); Globulin 4.0 gm/dL (2.3-3.5); Glucose 115 mg/dL (74-106); Magnesium 1.9 mg/dL (1.6-2.6); Osmolality,Calculated 297 (275-295); Phosphorous 3.1 mg/dL (2.4-5.1); Potassium 3.1 mMol/L (3.4-5.1); Sodium 146 mMol/L (136-145); Total Protein 6.8 gm/dL (5.7-8.2); Vancomycin,Random 19.5 mcg/mL; eGFR > 60 See Note
[2025-05-14] MEDS: POTASSIUM CHL 10 mEq IVPB 10 MEQ/100 ML BAG 100 MEQ IV ×2 (08:54→10:33)
[2025-05-14] MEDS: VANCOMYCIN/NS 1 GM IVPB 200 ML IV (09:00)
--- NOTE | 2025-05-14 09:17 | PD.IDPROG ---
Subjective Subjective Interval history: has finished more than 7d of abx for germs in sputum. no goals of care discussion noted in record Exam Vital Signs Temp Pulse Resp BP Pulse Ox O2 Del Method O2 Flow Rate 96.9 F 87 20 138/82 H 100 Mechanical Ventilation 30 05/14/25 04:00 05/14/25 07:07 05/14/25 04:00 05/14/25 04:00 05/14/25 07:07 05/14/25 04:00 05/14/25 03:40 FiO2 30 05/14/25 07:07 Narrative Exam limited eval Objective - Internal Medicine Labs 05/14/25 05:15 05/14/25 05:15 Labs: Laboratory Results - last 24 hr 05/11/25 05/13/25 05/13/25 08:08 08:31 15:16 WBC RBC Hgb 6.4 L* 6.9 L* Hct 20.6 L* 21.7 L* MCV MCH MCHC RDW Std Deviation Plt Count Neut % (Auto) Lymph % (Auto) [place] % (Auto) Eos % (Auto) Baso % (Auto) Neut # (Auto) Lymph # (Auto) [place] # (Auto) Eos # (Auto) Baso # (Auto) Immature Gran # (Auto) Absolute Nucleated RBC Immature Gran % Nucleated RBC % Sodium Potassium Chloride Carbon Dioxide Anion Gap BUN Creatinine Estim Creat Clear Calc eGFR BUN/Creatinine Ratio Glucose Calculated Osmolality Calcium Corrected Calcium Phosphorus Magnesium Total Bilirubin AST ALT Alkaline Phosphatase Total Protein Albumin Globulin Albumin/Globulin Ratio Vancomycin Trough 27.1 H* Random Vancomycin Blood Type O Positive Antibody Screen NEGATIVE Crossmatch See Detail Blood Bank Wristband ID Yes 05/13/25 05/14/25 22:05 05:15 WBC 10.7 H RBC 3.17 L Hgb 7.6 L 8.6 L Hct 23.8 L 26.5 L MCV 84 MCH 27.1 MCHC 32.5 RDW Std Deviation 61.0 H Plt Count 361 Neut % (Auto) 76 Lymph % (Auto) 9 L [place] % (Auto) 6 Eos % (Auto) 7 Baso % (Auto) 1 Neut # (Auto) 8.1 H Lymph # (Auto) 1.0 [place] # (Auto) 0.7 Eos # (Auto) 0.8 H Baso # (Auto) 0.1 Immature Gran # (Auto) 0.04 H Absolute Nucleated RBC 0.00 Immature Gran % 0 Nucleated RBC % 0 Sodium 146 H Potassium 3.1 L Chloride 105 Carbon Dioxide 30.6 Anion Gap 10 BUN 28 H Creatinine 0.9 Estim Creat Clear Calc 90.4 eGFR > 60 BUN/Creatinine Ratio 31 H Glucose 115 H D Calculated Osmolality 297 H Calcium 9.3 Corrected Calcium 10.3 H Phosphorus 3.1 Magnesium 1.9 Total Bilirubin 0.9 AST 21 ALT 12 Alkaline Phosphatase 130 H Total Protein 6.8 Albumin 2.8 L Globulin 4.0 H Albumin/Globulin Ratio 0.7 L Vancomycin Trough Random Vancomycin 19.5 Blood Type Antibody Screen Crossmatch Blood Bank Wristband ID ABG Interpretation ABG results: 04/27/25 04/27/25 04/27/25 02:12 07:39 09:19 ABG pH 7.30 L 7.18 L* D 7.24 L ABG pCO2 41 53 H D 44 ABG pO2 99 98 110 H ABG HCO3 20 20 19 L ABG O2 Saturation 98 98 99 H ABG Base Excess -6 L -9 L -8 L 04/27/25 04/28/25 04/30/25 12:15 04:10 04:21 ABG pH 7.28 L 7.34 L 7.26 L ABG pCO2 39 36 46 D ABG pO2 135 H D 111 H D 66 L D ABG HCO3 18 L 19 L 20 ABG O2 Saturation 100 H 99 H 93 ABG Base Excess -8 L -6 L -6 L 04/30/25 05/01/25 16:15 04:07 ABG pH 7.31 L 7.30 L ABG pCO2 43 50 H ABG pO2 69 L 64 L ABG HCO3 22 25 ABG O2 Saturation 94 93 ABG Base Excess -4 L -2 Assessment & Plan A&P Narrative finished zosyn and vanco today. do not repeat cxr unless he is worse or for 4-6 weeks after the event. same for sputum cx he is 80 and on a vent and not interactive, so a discussion about expectations and goals of care is prudent . may be unrealistic in her expectations so please discuss with her as you are able. finished zosyn and vanco. pt remains a full code despite his condition. I signed off on monday 05/07 when primary team restarted the vanco after it was stopped. and refused to have a goals of care discussion with pt and . will sign off again in hopes that primary team will have a discussion with decision makers about extent of rx (goals of care). Time Spent With Patient Time: Total time spent is greater than 50% in coordination of care (as documented) at patient's floor/unit and/or counseling patient:
--- NOTE | 2025-05-14 09:54 | ESPR_ITS ---
<Statement entered by Tee Diallo MD - 05/17/25 14:18> I reviewed above note and agree with findings and plans. I have also personally examined the patient with medicine team and went over assessment and plan with medical team including rn intern and resident physician. <Statement entered by Brian Man MD - 05/14/25 16:18> No acute overnight events. Seen and examined at bedside. Updated and daughter regarding current plans. Attempted to place IVC filter but unable to due to occlusive thrombus precluding placement. Given failure of anticoagulation due to hematuria and possible GI bleed, at this time currently do not have options in-house for treatment. Thus, will initiate transfer process to [facility] for vascular surgery versus interventional radiology for thrombectomy vs second attempt for IVC filter, respectively. Regarding tube feedings, they continue to be on hold and GI is on the case for further recommendations. ----- Note reviewed and agree with care plan as documented. Please refer to the note below for further details. Plan discussed with attending physician Dr. Imani Man MD PGY-2 Internal Medicine Documentation for date of: 05/14/25 Subjective Subjective Interval history: 80 y/o male with extensive PMH including chronic respiratory failure, chronic vegetative state s/p tracheotomy, G-tube. Stay is currently complicated by bilateral lower extremity DVTs, small bowel obstruction (mechanical vs non- mechanical) and acute blood loss anemia secondary to GI bleed s/p EGD. Overnight patient got 1 unit of prbc, Hgb raised from 7.6 to 8.6. KUB from yesterday (05/13/25) shows large amount of stool and no onbstruction. Patient was seen at bedside today morning. Chronic vegetative state, status unchanged. German bag is clear, no signs of hematuria. NG tube suction in place, suction container had about 100 ml of dark red/brown fluid. Patient is pending IVC filter today (has DVTs and cant anticoaglate due to GI bleed). Family left a note with the nurse and wants to be present during the IVC filter procedure. Today (05/14/25) interventional radiology attempted percutaneous placement of inferior venacavogram filter. Sonographic assessment of the right and left common femoral veins demonstrates occlusive thrombus in both veins, precluding successful percutaneous access. Being unable to place IVC filter at [facility], patient is being transferred to [facility] for another attempt at placement of IVC filter vs other management approaches such as thrombectomy. Exam Vital Signs Temp Pulse Resp BP Pulse Ox O2 Del Method O2 Flow Rate 96.9 F 87 20 138/82 H 100 Mechanical Ventilation 30 05/14/25 04:00 05/14/25 07:07 05/14/25 04:00 05/14/25 04:00 05/14/25 07:07 05/14/25 04:00 05/14/25 03:40 FiO2 30 05/14/25 07:07 Narrative Exam General: Obese, chronically ill-appearing man. Tracheostomy on mechanical ventilation. Not responsive to audible or visual stimulus. Neurologic: Unresponsive, unable to move any extremities. Eyes were closed, did not open to voice. HEENT: Normocephalic, atraumatic, mucous membranes moist. Heart: Tachycardic, regular rhythm, no murmurs, gallops, or rubs auscultated. Lungs: Clear to auscultation bilaterally with no wheezing or crackles. Abdomen: Obese, firm, distended, normal bowel sounds MSK/Extremities: 1+ pitting edema bilaterally lower extremities upto the knees. Bilateral upper exteremities also 1+ edema. Equal peripheral pulses. Bilateral lower extremity nails turned black. Objective Labs 05/14/25 05:15 05/14/25 14:47 Labs: Laboratory Results - last 24 hr 05/11/25 05/13/25 05/13/25 08:08 15:16 22:05 WBC RBC Hgb 6.9 L* 7.6 L Hct 21.7 L* 23.8 L MCV MCH MCHC RDW Std Deviation Plt Count Neut % (Auto) Lymph % (Auto) [place] % (Auto) Eos % (Auto) Baso % (Auto) Neut # (Auto) Lymph # (Auto) [place] # (Auto) Eos # (Auto) Baso # (Auto) Immature Gran # (Auto) Absolute Nucleated RBC Immature Gran % Nucleated RBC % Sodium Potassium Chloride Carbon Dioxide Anion Gap BUN Creatinine Estim Creat Clear Calc eGFR BUN/Creatinine Ratio Glucose Calculated Osmolality Calcium Corrected Calcium Phosphorus Magnesium Total Bilirubin AST ALT Alkaline Phosphatase Total Protein Albumin Globulin Albumin/Globulin Ratio Random Vancomycin Blood Type O Positive Antibody Screen NEGATIVE Crossmatch See Detail Blood Bank Wristband ID Yes 05/14/25 05:15 WBC 10.7 H RBC 3.17 L Hgb 8.6 L Hct 26.5 L MCV 84 MCH 27.1 MCHC 32.5 RDW Std Deviation 61.0 H Plt Count 361 Neut % (Auto) 76 Lymph % (Auto) 9 L [place] % (Auto) 6 Eos % (Auto) 7 Baso % (Auto) 1 Neut # (Auto) 8.1 H Lymph # (Auto) 1.0 [place] # (Auto) 0.7 Eos # (Auto) 0.8 H Baso # (Auto) 0.1 Immature Gran # (Auto) 0.04 H Absolute Nucleated RBC 0.00 Immature Gran % 0 Nucleated RBC % 0 Sodium 146 H Potassium 3.1 L Chloride 105 Carbon Dioxide 30.6 Anion Gap 10 BUN 28 H Creatinine 0.9 Estim Creat Clear Calc 90.4 eGFR > 60 BUN/Creatinine Ratio 31 H Glucose 115 H D Calculated Osmolality 297 H Calcium 9.3 Corrected Calcium 10.3 H Phosphorus 3.1 Magnesium 1.9 Total Bilirubin 0.9 AST 21 ALT 12 Alkaline Phosphatase 130 H Total Protein 6.8 Albumin 2.8 L Globulin 4.0 H Albumin/Globulin Ratio 0.7 L Random Vancomycin 19.5 Blood Type Antibody Screen Crossmatch Blood Bank Wristband ID ABG Interpretation ABG results: 04/27/25 04/27/25 04/27/25 02:12 07:39 09:19 ABG pH 7.30 L 7.18 L* D 7.24 L ABG pCO2 41 53 H D 44 ABG pO2 99 98 110 H ABG HCO3 20 20 19 L ABG O2 Saturation 98 98 99 H ABG Base Excess -6 L -9 L -8 L 04/27/25 04/28/25 04/30/25 12:15 04:10 04:21 ABG pH 7.28 L 7.34 L 7.26 L ABG pCO2 39 36 46 D ABG pO2 135 H D 111 H D 66 L D ABG HCO3 18 L 19 L 20 ABG O2 Saturation 100 H 99 H 93 ABG Base Excess -8 L -6 L -6 L 04/30/25 05/01/25 16:15 04:07 ABG pH 7.31 L 7.30 L ABG pCO2 43 50 H ABG pO2 69 L 64 L ABG HCO3 22 25 ABG O2 Saturation 94 93 ABG Base Excess -4 L -2 Quality Measures Quality Measures VTE prophylaxis Advance care planning discussed with:: spouse Assessment & Plan Assessment Current Active Medications: Generic Name Dose Route Start Last Admin Trade Name Freq PRN Reason Stop Dose Admin Acetaminophen 1,000 mg 05/07/25 15:20 05/11/25 04:56 Acetaminophen 500 Mg Tablet PO 06/06/25 15:19 1,000 mg Q6HR PRN Administration Fever >99.5 Amlodipine Besylate 5 mg 05/13/25 21:00 Amlodipine Besylate 5 Mg Tablet GT 06/12/25 20:59 On Hold: 05/13/25 21:00 HS IMANI Dextrose 50 ml 04/27/25 03:37 Dextrose 50%-Water Inj 50 Ml Syringe IV 05/27/25 03:36 Q15MIN PRN BG <50 OR BG <70 & pt unresponsive Glucagon 1 mg 04/27/25 03:37 Glucagon Inj 1 Mg Vial IM Q15MIN PRN BG <70, and no IV access Heparin Sodium (Porcine) 3,000 unit 04/30/25 11:01 05/03/25 11:49 Heparin Sod Inj 1000 Unit/Ml Vial 10 Ml INDWELLCAT 05/14/25 11:00 3,000 unit PRN PRN Administration DIALYSIS Potassium Chloride 10 meq in 100 mls @ 100 mls/hr 05/14/25 08:03 05/14/25 08:54 Kcl Ivpb IV 05/14/25 12:02 100 mls/hr Q1H IMANI Administration Insulin Degludec 25 unit 05/13/25 21:00 05/13/25 20:54 Insulin Degludec 5 Unit/0.05 Ml (Per 5 Units) SC 06/12/25 20:59 Not Given HS IMANI Insulin Human Lispro 0 unit 04/27/25 06:00 05/14/25 05:41 Insulin Lispro (Admelog) 1 Unit/0.01 Ml Unit SC 05/27/25 05:59 Not Given Q6HR IMANI Protocol Metoclopramide HCl 5 mg 05/04/25 00:00 05/14/25 05:37 Metoclopramide Inj 5 Mg/Ml Vial 2 Ml IVP 06/03/25 00:00 5 mg Q6HR IMANI Administration Protocol Midodrine 10 mg 05/13/25 10:32 Midodrine 5 Mg Tablet PO 06/01/25 10:44 TID PRN hypotension SBP <95 Mupirocin 2 gm 05/07/25 14:00 05/14/25 05:41 Mupirocin Oint 2% 15 Gm Tube TOP 05/14/25 13:59 1 applicatio TID IMANI Administration Pantoprazole Sodium 40 mg 05/13/25 10:30 05/14/25 08:54 Pantoprazole Inj 40 Mg Vial IVP 06/12/25 10:29 40 mg BID IMANI Administration Sucralfate 1 gm 05/13/25 14:00 05/14/25 05:41 Sucralfate 1 Gm Tablet GT 06/12/25 13:59 1 gm TID IMANI Administration Plan Kwadwo Sanchez is a 80-year-old male with significant past medical history of chronic respiratory failure s/p trach/PEG tube, chronic, MRSA pneumonia, Pseudomonas UTI, MRSA bacteremia, sacral ulcer, and several other chronic conditions. Patient was admitted to ICU for further management of septic shock secondary to pneumonia and UTI; Downgraded from ICU no longer needing pressors; continuing to manage unresolved sepsis, acute blood loss anemia secondary to upper GI bleed, lower extremity bilateral DVT, SBO and pending SNF availability. #Small bowel obstruction (mechanical vs non mechanical) KUB (05/13/25) : Large amount of stool throughout the colon. Patient vomited coffee-ground material. EGD finding as noted below also suggest bowel obstruction (mechanical vs non mechanical) - Patient NPO except medications - NGT suction to low intermittent suction - Gastrographin study through NG tube ordered #Acute blood loss anemia secondary to upper GI bleed. HgB 8.6 (post 1 unit prbc) Hematuria stopped, geramn bag is clear after stopping lovenox FOBT positive EGD (05/12): esophageal varices, and diffuse gastritis. Massive bilous secretions in descending duodenum which was aspirated in the body of the stomach, too, as patient was vomiting as well as coffee-ground material in the body of stomach. About 300cc of bilous secretions was aspirated during the procedure. - Stopped anticoagulation used for DVTs due to new acute bleeding - GI on board, appreciate recs - Protonix IV 40mg BID - Sucralfate GT 1g TID - NPO except meds - Monitor daily CBC - Will transfuse if HgB continues to drop or if anemia symptoms develop. #Acute DVT Bilatereal non-occlusive common femoral DVT on duplex US Could be the likely cause of new febrile episodes and leukocytosis Pulmonary embolism ruled out by chest CT angio. Sonographic assessment of the right and left common femoral veins demonstrates occlusive thrombus in both veins, precluding successful percutaneous access. - Stopped anticoagulation because of the GI bleed. - Risk and benefits of anticoagulation in the setting of DVT and active bleeding explained to family. - [facility] #Sepsis- resolving #Healthcare associated pneumonia Vs Severe UTI - resolving #S/p chronic tracheostomy #Leukocytosis- improving SIRS criteria (09/09): 96.9 F, HR 87, RR 20, WBCs 10.7 and patient is on chronic mechanical ventilation Chest x-ray revealed bilateral pneumonia. Blood cultures no growth. CT A/P 05/02 along with residuals from PEG tube makes aspiration pneumonia another ddx. Suspicion remains for unidentified source of infection due to patient's intermittent fever, leukocytosis, and tachycardia General surgery does not recommend surgical debridement of sacral wounds at this time Venous Duplex US positive for bilateral non-occlusive DVT: possible cause of leukocytosis and fever. MRI thoracic and lumbar spine with contrast (05/08/25) ruled out spinal epidural abscess as potential source of infection. Noted suspicion for L3-L4 discitis. Chest CT angio (05/09/25): ruled out pulmonary embolism RUQ ultrasound (05/10/25): ruled out cholecystitis. (05/14/25) finished 7 day Zosyn and Vancomycin course, ID signed off - GI will place PEG tube with gastric/jejunostomy port outpatient - Mupirocin topical for MRSA in the nares 05/07/2025 - Midodrine 10mg TID as needed if MAP < 65 and SBP <100 - 1g morphine IVP x1, to monitor improvement of vitals with better pain control - Cont monitoring WBCs #Hypomagnesemia - stable - Cont to monitor daily magnesium, and watch for symptoms of toxicity. - Replete as needed to keep Mg >2 #Hyponatremia, stable Possibly due to renal failure, CHF, cirrhosis The patient presented with sodium of 117, but corrected sodium was 123 --> 05/01, 126 - Will continue to monitor sodium levels and replete as needed to keep over 4 #MARGARETTE- resolved/improving Likely prerenal leading to ATN secondary to sepsis Cr back at baseline (~1) - Continue to monitor renal panel. - Avoid nephrotoxins #Right heart failure and moderate pulmonary hypertension Echo on 04/27 - showed right ventricular volume/pressure overload, mild to moderate TR, RVSP elevated at 40 to 45 mmHg. EF is 55 to 60% Plan: - Outpatient cardiac cath post discharge to categorize pulmonary hypertension and needs treatment accordingly. - Due to patients other commodities, not a candidate for in-patient management of pulmonary hypertension. #Hypertension, controlled - Using Amlodipine 10mg every day and will Hold medications for now. #Insulin-dependent diabetes mellitus type 2 - A1c: 10.5 - Started on insulin degludec 13 units daily at night, increased to 18 units, adjusted to 22 units as of 05/01 based on blood sugars on morning labs - Sliding scale insulin lispro every 6 hourly with fingerstick blood sugar checks #Microcytic anemia Likely 2/2 anemia of chronic disease, but could not rule out other differentials like nutritional deficiency - Iron panel, ferritin, folic acid, vitamin B12, reticulocyte count, peripheral smear and LDH ordered - showed iron deficiency - Daily a.m. 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 #S/P stroke, Vascular dementia and MSA - At his normal baseline - Aspirin 81 Mg daily #septic shock, resolved #Non-anion gap metabolic acidosis, resolved #Lactic acidosis 2/2 sepsis, resolved Health Maintenance: Code Status: Full (Confirmed with ) DVT Prophylaxis: SCDs, stopped anti coagulation due to bleeding, IVC filter pending GI Prophylaxis: Protonix IV 40 BID Diet: NPO except medications, SBO German: Urinary Catheter Lines: PIV Supplemental O2: Mechanical Ventilation Disposition: Telemetry, pending acute bleed workup, and SBO management Patient seen and care discussed with my attending physician, Dr. Diallo and my senior residents Dr. Han Man and Dr. Bianchi. Mariam Brower, S-IV
--- NOTE | 2025-05-14 10:45 | XR_ITS ---
Examination: Small bowel series AP abdomen 2 views Date and time: May 14, 2025, 1545 hrs. Indications: Abdominal distention beginning 2 days ago. Technique And Findings: 120 cc Gastrografin administered through the orogastric tube 1 minute and 1 hour delayed films AP supine abdomen obtained Contrast in distended jejunal loops Impression: Contrast in distended jejunal loops, recommend follow-up abdomen film 6:00 PM, 8:00 PM, 10:00 PM.
--- NOTE | 2025-05-14 11:39 | PC.SS ---
Update: Plan is for the patient to obtain IVC filter to address clotting issue.
[2025-05-14] MEDS: HEPARIN SOD LOCK SYR 100 UNIT/ML 500 UNIT STFIELD (12:00)
[2025-05-14] MEDS: LIDOCAINE INJ PF 1% 30 ML VIAL INFL (12:00)
[2025-05-14] MEDS: POTASSIUM CHL 10 mEq IVPB 10 MEQ/100 ML BAG 75 MEQ IV ×2 (13:16→15:02)
[2025-05-14] MEDS: Magnesium Sulfate 4 GM Ivpb 4 GM/50 ML BAG IV (13:16)
[2025-05-14 15:20] LABS: Potassium 3.4 mMol/L (3.4-5.1)
--- NOTE | 2025-05-14 15:59 | PC.CC ---
Addendum entered by Felicia Strauss RN 05/14/25 18:13: transfer packet w/ 1 CD created. packet on transfer nurse desk. Addendum entered by Felicia Strauss RN 05/14/25 17:57: 1742: Spoke to Dr. Man, update provided. He stated to wait until tomorrow. Pt's family insists that we stick with [facility] facilities before reaching out to other [facility] facilities. 1740: received call from Brigida, she stated that Medicine Team has deferred to make a determination until tomorrow. They plan to consult with their IR. 1716: called and spoke to Brigida, she stated Vascular team deferred case to Medicine Team. Still in review. Original Note: 1605: spoke to Dr. Mna , update provided. requested an updated progress note for today. 1600: clinicals sent out. 1550: reached out to [facility], spoke to brigida, transfer request initiated. Brigida provided FAX number to the transfer center 1530: attemted to initiate transfer request to [facility]. unable to make contact. Called [facility] line and provide the [facility] connect number that is located on the website. received verbal [facility] for Right and left common femoral veins demonstrate occlusive thrombus precluding successful percutaneous access.
--- NOTE | 2025-05-14 17:31 | ESPR_ITS ---
Documentation for date of: 05/14/25 Subjective Subjective Interval history: Patient evaluated Current hemoglobin hematocrit 8.6 and 26.5 Previous endoscopy has shown a lot of bilious secretions in the visibility of the pyloric channel duodenal ulcer was very very poor Met with the at the bedside Agree with getting a small bowel follow-through for further evaluation after above Exam Vital Signs Temp Pulse Resp BP Pulse Ox O2 Del Method O2 Flow Rate 97.6 F 82 20 141/69 H 100 Mechanical Ventilation 30 05/14/25 08:00 05/14/25 12:55 05/14/25 12:35 05/14/25 12:35 05/14/25 12:55 05/14/25 12:35 05/14/25 03:40 FiO2 30 05/14/25 12:55 Objective Labs 05/14/25 05:15 05/14/25 14:47 Labs: Laboratory Results - last 24 hr 05/11/25 05/13/25 05/14/25 08:08 22:05 05:15 WBC 10.7 H RBC 3.17 L Hgb 7.6 L 8.6 L Hct 23.8 L 26.5 L MCV 84 MCH 27.1 MCHC 32.5 RDW Std Deviation 61.0 H Plt Count 361 Neut % (Auto) 76 Lymph % (Auto) 9 L [place] % (Auto) 6 Eos % (Auto) 7 Baso % (Auto) 1 Neut # (Auto) 8.1 H Lymph # (Auto) 1.0 [place] # (Auto) 0.7 Eos # (Auto) 0.8 H Baso # (Auto) 0.1 Immature Gran # (Auto) 0.04 H Absolute Nucleated RBC 0.00 Immature Gran % 0 Nucleated RBC % 0 Sodium 146 H Potassium 3.1 L Chloride 105 Carbon Dioxide 30.6 Anion Gap 10 BUN 28 H Creatinine 0.9 Estim Creat Clear Calc 90.4 eGFR > 60 BUN/Creatinine Ratio 31 H Glucose 115 H D Calculated Osmolality 297 H Calcium 9.3 Corrected Calcium 10.3 H Phosphorus 3.1 Magnesium 1.9 Total Bilirubin 0.9 AST 21 ALT 12 Alkaline Phosphatase 130 H Total Protein 6.8 Albumin 2.8 L Globulin 4.0 H Albumin/Globulin Ratio 0.7 L Random Vancomycin 19.5 Blood Type O Positive Antibody Screen NEGATIVE Crossmatch See Detail Blood Bank Wristband ID Yes 05/14/25 14:47 WBC RBC Hgb Hct MCV MCH MCHC RDW Std Deviation Plt Count Neut % (Auto) Lymph % (Auto) [place] % (Auto) Eos % (Auto) Baso % (Auto) Neut # (Auto) Lymph # (Auto) [place] # (Auto) Eos # (Auto) Baso # (Auto) Immature Gran # (Auto) Absolute Nucleated RBC Immature Gran % Nucleated RBC % Sodium Potassium 3.4 Chloride Carbon Dioxide Anion Gap BUN Creatinine Estim Creat Clear Calc eGFR BUN/Creatinine Ratio Glucose Calculated Osmolality Calcium Corrected Calcium Phosphorus Magnesium Total Bilirubin AST ALT Alkaline Phosphatase Total Protein Albumin Globulin Albumin/Globulin Ratio Random Vancomycin Blood Type Antibody Screen Crossmatch Blood Bank Wristband ID Impressions Impression: Diffuse gastritis Gastrointestinal motility disorder versus ileus versus small bowel obstruction Plan I agree with small bowel follow-through I will follow the patient closely with you ABG Interpretation ABG results: 04/27/25 04/27/25 04/27/25 02:12 07:39 09:19 ABG pH 7.30 L 7.18 L* D 7.24 L ABG pCO2 41 53 H D 44 ABG pO2 99 98 110 H ABG HCO3 20 20 19 L ABG O2 Saturation 98 98 99 H ABG Base Excess -6 L -9 L -8 L 04/27/25 04/28/25 04/30/25 12:15 04:10 04:21 ABG pH 7.28 L 7.34 L 7.26 L ABG pCO2 39 36 46 D ABG pO2 135 H D 111 H D 66 L D ABG HCO3 18 L 19 L 20 ABG O2 Saturation 100 H 99 H 93 ABG Base Excess -8 L -6 L -6 L 04/30/25 05/01/25 16:15 04:07 ABG pH 7.31 L 7.30 L ABG pCO2 43 50 H ABG pO2 69 L 64 L ABG HCO3 22 25 ABG O2 Saturation 94 93 ABG Base Excess -4 L -2 Assessment & Plan A&P Narrative finished ninfa and bostono today. do not repeat cxr unless he is worse or for 4-6 weeks after the event. same for sputum cx he is 80 and on a vent and not interactive, so a discussion about expectations and goals of care is prudent . may be unrealistic in her expectations so please discuss with her as you are able. finished zosyn and vanco. pt remains a full code despite his condition. I signed off on monday 05/07 when primary team restarted the vanco after it was stopped. and refused to have a goals of care discussion with pt and . will sign off again in hopes that primary team will have a discussion with decision makers about extent of rx (goals of care). Time Spent With Patient Time: Total time spent is greater than 50% in coordination of care (as documented) at patient's floor/unit and/or counseling patient:
[2025-05-14 17:50] LABS: Magnesium 2.4 mg/dL (1.6-2.6)
[2025-05-14] MEDS: INSULIN DEGLUDEC 5 UNIT/0.05 ML (PER 5 UNITS) 25 UNIT SC (22:37)
[2025-05-15] VITALS (13 sets, daily range): BP systolic 119–166; BP diastolic 61–93; PULSE 93–109; RESP 14–27; TEMP 35.9–36.8; O2SAT 95–100; BMI 40.0
[2025-05-15] MEDS: METOCLOPRAMIDE INJ 5 MG/ML VIAL 2 ML IVP ×5 (00:56→23:38)
[2025-05-15] MEDS: SUCRALFATE 1 GM TABLET GT ×3 (05:17→21:00)
[2025-05-15 06:01] LABS: Basophils # (Auto) 0.1 Thou/mm3 (0.0-0.2); Basophils % (Auto) 1 % (0-2.5); Eosinophils # (Auto) 0.6 Thou/mm3 (0.0-0.5); Eosinophils % (Auto) 8 % (0-10); Hematocrit 27.4 % (41.0-53.0); Immature Granulocytes Auto 0.04 Thou/mm3 (0.00-0.00); Lymphocytes # (Auto) 1.0 Thou/mm3 (1.0-4.8); Lymphocytes % (Auto) 13 % (10-50); Mean Corpuscular HGB Conc 31.4 g/dl (31.0-37.0); Mean Corpuscular Hemoglobin 26.1 pg (25.0-35.0); Mean Corpuscular Volume 83 fL (80-100); Monocytes # (Auto) 0.6 Thou/mm3 (0.0-0.8); Monocytes % (Auto) 7 % (0-12); Neutrophils # (Auto) 5.8 Thou/mm3 (1.8-7.7); Neutrophils % (Auto) 72 % (37-80); Nucleated Red Blood Cell # 0.00 Thou/mm3 (0.00-0.00); Nucleated Red Blood Cell % 0 /100 WBC (0); Platelet Count 361 Thou/mm3 (140-440); RDW Standard Deviation 61.2 fL (35.1-43.9); Red Blood Count 3.29 Miln/mm3 (4.50-5.90); White Blood Count 8.1 Thou/mm3 (3.8-10.6)
[2025-05-15 06:07] LABS: Hemoglobin 8.6 g/dL (13.5-16.0)
[2025-05-15 06:35] LABS: Alanine Aminotransferase 11 U/L (10-49); Albumin, Serum 2.9 gm/dL (3.4-4.8); Albumin/Globulin Ratio 0.7 (1.2-2.2); Alkaline Phosphatase 129 U/L (46-116); Anion Gap 14 (7-16); Aspartate Amino Transferase 25 U/L (0-34); BUN/Creatinine Ratio 24 Ratio (12-20); Bilirubin,Total 0.8 mg/dL (0.3-1.2); Blood Urea Nitrogen 22 mg/dL (9-23); Calcium 9.1 mg/dL (8.3-10.6); Calcium (Corrected) 10.0 mg/dL (8.5-10.1); Carbon Dioxide 28.1 mMol/L (20.0-31.0); Chloride 108 mMol/L (98-107); Creatinine (Component) 0.9 mg/dL (0.6-1.3); Estimated Creatinine Clearance 90.4 mL/min (>60); Globulin 4.3 gm/dL (2.3-3.5); Glucose 89 mg/dL (74-106); Magnesium 2.2 mg/dL (1.6-2.6); Osmolality,Calculated 300 (275-295); Phosphorous 3.2 mg/dL (2.4-5.1); Potassium 3.4 mMol/L (3.4-5.1); Sodium 150 mMol/L (136-145); Total Protein 7.2 gm/dL (5.7-8.2); eGFR > 60 See Note
[2025-05-15] MEDS: DEXTROSE 5%-WATER 1,000 ML 80 ML IV ×2 (08:25→20:24)
--- NOTE | 2025-05-15 08:41 | PC.CM ---
Addendum entered by Louise Keyes RN 05/15/25 20:00: I updated ICU change nurse. I am back tomorrow so I will reach out to [place] and [facility]. Addendum entered by Louise Keyes RN 05/15/25 11:47: 1100 I spoke to Shabana Angel from the [facility]. She states she received all the paperwork from [facility]. Shabana states they will have their IR review patient tomorrow when he is available. She will let me know tomorrow if they are able to accept. If they are not able to manage patient at their facility, she will reach out to me and to [facility] to continue transfer request with them. 1020 I received a call from Beba with [facility]. Beba spoke to Gwendolyn Ortiz from the transfer center in [facility] phone # [phone]. Beba states the [facility] will review patient tomorrow when they have IR available. Beba asked that I reach out to the [facility] to officially initiate a transfer with them.Beba states if they [facility] cannot accept patient, then [facility] will continue to review patient. Addendum entered by Louise Keyes RN 05/15/25 11:38: 0930 I spoke to Beba at [facility]. She asked me if we tried to contact [facility] first. I reviewed the notes and I see Catherine was not able to get a hold of the transfer center in [place]. She then reached out to [facility]. Beba states she will reach out to [place] to see if they can accommodate patient since [place] is closer to us than [facility]. Original Note: 0800 I called and spoke to the [facility] [phone]. I spoke to Beba and she states vascular declined patient. They suggested a goals of care meeting with family. Beba states she will follow up with Medicine and IR to see if they are interested. She states she will call me back once she speaks to the Medicine team and IR .
[2025-05-15] MEDS: DEXTROSE 50%-WATER INJ 50 ML SYRINGE IV (11:46)
--- NOTE | 2025-05-15 11:50 | ESPR_ITS ---
<Statement entered by Tee Diallo MD - 05/17/25 14:19> I reviewed above note and agree with findings and plans. I have also personally examined the patient with medicine team and went over assessment and plan with medical team including environmental intern and resident physician. <Statement entered by Brian Man MD - 05/15/25 15:41> No acute overnight events. Seen and examined at bedside. NG tube still in place and was suctioning approximate 200 cc of dark red material, likely blood. Apparently patient had 2 BMs overnight and thus will no longer pursue small bowel series. GI continues to follow case, appreciate recommendations. Otherwise, vital signs stable, leukocytosis resolved, hemoglobin stable, and started D5W for sodium of 150. Transfer still in process, at this time pending case evaluation by IR at [facility] [place] but will not be able to until tomorrow. Will await for further details. ----- Note reviewed and agree with care plan as documented. Please refer to the note below for further details. Plan discussed with attending physician Dr. Imani Man MD PGY-2 Internal Medicine Documentation for date of: 05/15/25 Subjective Subjective Interval history: 80 y/o male with extensive PMH including chronic respiratory failure, chronic vegetative state s/p tracheotomy, G-tube. Stay is currently complicated by bilateral lower extremity DVTs, and acute blood loss anemia secondary to GI bleed s/p EGD. Overnight patient was going through small bowel series, and had 2 large loose bowel moments. Patient was seen at bedside today morning. Status unchanged. Patient still had an NG tube in place and there was 200 ml of fluid in the suction container of dark red color. Exam Vital Signs Temp Pulse Resp BP Pulse Ox O2 Del Method O2 Flow Rate 96.6 F L 98 14 166/82 H 98 Mechanical Ventilation 30 05/15/25 08:00 05/15/25 08:00 05/15/25 08:00 05/15/25 08:00 05/15/25 08:00 05/15/25 08:00 05/15/25 08:00 FiO2 30 05/15/25 08:00 Narrative Exam General: Obese, chronically ill-appearing man. Tracheostomy on mechanical ventilation. Not responsive to audible or visual stimulus. Neurologic: Unresponsive, unable to move any extremities. Eyes were closed, did not open to voice. HEENT: Normocephalic, atraumatic, mucous membranes moist. Heart: Tachycardic, regular rhythm, no murmurs, gallops, or rubs auscultated. Lungs: Clear to auscultation bilaterally with no wheezing or crackles. Abdomen: Obese, mild distention, mild firmness (improved from yesterday), normal bowel sounds MSK/Extremities: 1+ pitting edema bilaterally lower extremities upto the knees. Bilateral upper exteremities also 1+ edema. Equal peripheral pulses. Bilateral lower extremity nails turned black. Objective Labs 05/15/25 05:04 05/15/25 05:04 Labs: Laboratory Results - last 24 hr 05/14/25 05/14/25 05/15/25 14:47 17:19 05:04 WBC 8.1 RBC 3.29 L Hgb 8.6 L Hct 27.4 L MCV 83 MCH 26.1 MCHC 31.4 RDW Std Deviation 61.2 H Plt Count 361 Neut % (Auto) 72 Lymph % (Auto) 13 [place] % (Auto) 7 Eos % (Auto) 8 Baso % (Auto) 1 Neut # (Auto) 5.8 Lymph # (Auto) 1.0 [place] # (Auto) 0.6 Eos # (Auto) 0.6 H Baso # (Auto) 0.1 Immature Gran # (Auto) 0.04 H Absolute Nucleated RBC 0.00 Immature Gran % 1 H Nucleated RBC % 0 Sodium 150 H Potassium 3.4 3.4 Chloride 108 H Carbon Dioxide 28.1 Anion Gap 14 BUN 22 Creatinine 0.9 Estim Creat Clear Calc 90.4 eGFR > 60 BUN/Creatinine Ratio 24 H Glucose 89 Calculated Osmolality 300 H Calcium 9.1 Corrected Calcium 10.0 Phosphorus 3.2 Magnesium 2.4 2.2 Total Bilirubin 0.8 AST 25 ALT 11 Alkaline Phosphatase 129 H Total Protein 7.2 Albumin 2.9 L Globulin 4.3 H Albumin/Globulin Ratio 0.7 L ABG Interpretation ABG results: 04/27/25 04/27/25 04/27/25 02:12 07:39 09:19 ABG pH 7.30 L 7.18 L* D 7.24 L ABG pCO2 41 53 H D 44 ABG pO2 99 98 110 H ABG HCO3 20 20 19 L ABG O2 Saturation 98 98 99 H ABG Base Excess -6 L -9 L -8 L 04/27/25 04/28/25 04/30/25 12:15 04:10 04:21 ABG pH 7.28 L 7.34 L 7.26 L ABG pCO2 39 36 46 D ABG pO2 135 H D 111 H D 66 L D ABG HCO3 18 L 19 L 20 ABG O2 Saturation 100 H 99 H 93 ABG Base Excess -8 L -6 L -6 L 04/30/25 05/01/25 16:15 04:07 ABG pH 7.31 L 7.30 L ABG pCO2 43 50 H ABG pO2 69 L 64 L ABG HCO3 22 25 ABG O2 Saturation 94 93 ABG Base Excess -4 L -2 Quality Measures Quality Measures VTE prophylaxis Advance care planning discussed with:: spouse Assessment & Plan Assessment Current Active Medications: Generic Name Dose Route Start Last Admin Trade Name Freq PRN Reason Stop Dose Admin Acetaminophen 1,000 mg 05/07/25 15:20 05/11/25 04:56 Acetaminophen 500 Mg Tablet PO 06/06/25 15:19 1,000 mg Q6HR PRN Administration Fever >99.5 Amlodipine Besylate 5 mg 05/13/25 21:00 Amlodipine Besylate 5 Mg Tablet GT 06/12/25 20:59 On Hold: 05/13/25 21:00 HS IMANI Dextrose 50 ml 04/27/25 03:37 05/15/25 11:46 Dextrose 50%-Water Inj 50 Ml Syringe IV 05/27/25 03:36 50 ml Q15MIN PRN Administration BG <50 OR BG <70 & pt unresponsive Glucagon 1 mg 04/27/25 03:37 Glucagon Inj 1 Mg Vial IM Q15MIN PRN BG <70, and no IV access Dextrose 1,000 mls @ 80 mls/hr 05/15/25 08:15 05/15/25 08:25 D5w IV 06/14/25 08:14 80 mls/hr .[id number] IMANI Administration Insulin Degludec 25 unit 05/13/25 21:00 05/14/25 22:37 Insulin Degludec 5 Unit/0.05 Ml (Per 5 Units) SC 06/12/25 20:59 25 unit HS IMANI Administration Insulin Human Lispro 0 unit 04/27/25 06:00 05/15/25 11:46 Insulin Lispro (Admelog) 1 Unit/0.01 Ml Unit SC 05/27/25 05:59 Not Given Q6HR [facility] Protocol Metoclopramide HCl 5 mg 05/04/25 00:00 05/15/25 11:45 Metoclopramide Inj 5 Mg/Ml Vial 2 Ml IVP 06/03/25 00:00 5 mg Q6HR IMANI Administration Protocol Midodrine 10 mg 05/13/25 10:32 Midodrine 5 Mg Tablet PO 06/01/25 10:44 TID PRN hypotension SBP <95 Pantoprazole Sodium 40 mg 05/13/25 10:30 05/15/25 08:11 Pantoprazole Inj 40 Mg Vial IVP 06/12/25 10:29 40 mg BID IMANI Administration Sucralfate 1 gm 05/13/25 14:00 05/15/25 05:17 Sucralfate 1 Gm Tablet GT 06/12/25 13:59 1 gm TID IMANI Administration Plan Kwadwo Sanchez is a 80-year-old male with significant past medical history of chronic respiratory failure s/p trach/PEG tube, chronic, MRSA pneumonia, Pseudomonas UTI, MRSA bacteremia, sacral ulcer, and several other chronic conditions. Patient was admitted to ICU for further management of septic shock secondary to pneumonia and UTI; Downgraded from ICU no longer needing pressors; continuing to manage acute blood loss anemia secondary to upper GI bleed, lower extremity bilateral DVT, and [facility]. #Acute DVT Bilatereal non-occlusive common femoral DVT on duplex US Could be the likely cause of new febrile episodes and leukocytosis Pulmonary embolism ruled out by chest CT angio. Sonographic assessment of the right and left common femoral veins demonstrates occlusive thrombus in both veins, precluding successful percutaneous access. - Stopped anticoagulation because of the GI bleed. - Stopped SCDs to prevent dislodging thrombus - Risk and benefits of anticoagulation in the setting of DVT and active bleeding explained to family. - IVC filter unsuccessful, [facility]. #Acute blood loss anemia secondary to upper GI bleed. HgB 8.6 - stable over 24 hours Hematuria stopped, german bag is clear after stopping lovenox FOBT positive EGD (05/12): esophageal varices, and diffuse gastritis. Massive bilous secretions in descending duodenum which was aspirated in the body of the stomach, too, as patient was vomiting as well as coffee-ground material in the body of stomach. About 300cc of bilous secretions was aspirated during the procedure. - Stopped anticoagulation used for DVTs due to new acute bleeding - GI on board, appreciate recs - Protonix IV 40mg BID - Sucralfate GT 1g TID - NPO except meds - Monitor daily CBC - Will transfuse if HgB continues to drop or if anemia symptoms develop. #Small bowel obstruction (mechanical vs non mechanical)- resolved KUB (05/13/25) : Large amount of stool throughout the colon. Patient vomited coffee-ground material. EGD finding as noted below also suggest bowel obstruction (mechanical vs non mechanical) 05/14/25: patient underwent small bowel gastrographin follow through study and had 2 large bowel movements overnight. - Patient NPO except medications - NGT suction clamped #Healthcare associated pneumonia Vs Severe UTI - resolving #S/p chronic tracheostomy #Leukocytosis- resolved Chest x-ray revealed bilateral pneumonia. Blood cultures no growth. CT A/P 05/02 along with residuals from PEG tube makes aspiration pneumonia another ddx. Suspicion remains for unidentified source of infection due to patient's intermittent fever, leukocytosis, and tachycardia General surgery does not recommend surgical debridement of sacral wounds at this time Venous Duplex US positive for bilateral non-occlusive DVT: possible cause of leukocytosis and fever. MRI thoracic and lumbar spine with contrast (05/08/25) ruled out spinal epidural abscess as potential source of infection. Noted suspicion for L3-L4 discitis. Chest CT angio (05/09/25): ruled out pulmonary embolism RUQ ultrasound (05/10/25): ruled out cholecystitis. (05/14/25) finished 7 day Zosyn and Vancomycin course, ID signed off - GI will place PEG tube with gastric/jejunostomy port outpatient - Mupirocin topical for MRSA in the nares 05/07/2025 - Midodrine 10mg TID as needed if MAP < 65 and SBP <100 - 1g morphine IVP x1, to monitor improvement of vitals with better pain control - Cont monitoring WBCs #Hypomagnesemia - stable - Cont to monitor daily magnesium, and watch for symptoms of toxicity. - Replete as needed to keep Mg >2 #Hyponatremia, stable Possibly due to renal failure, CHF, cirrhosis The patient presented with sodium of 117, but corrected sodium was 123 --> 05/01, 126 - Will continue to monitor sodium levels and replete as needed to keep over 4 #MARGRAETTE- resolved/improving Likely prerenal leading to ATN secondary to sepsis Cr back at baseline (~1) - Continue to monitor renal panel. - Avoid nephrotoxins #Right heart failure and moderate pulmonary hypertension Echo on 04/27 - showed right ventricular volume/pressure overload, mild to moderate TR, RVSP elevated at 40 to 45 mmHg. EF is 55 to 60% Plan: - Outpatient cardiac cath post discharge to categorize pulmonary hypertension and needs treatment accordingly. - Due to patients other commodities, not a candidate for in-patient management of pulmonary hypertension. #Hypertension, controlled - Using Amlodipine 10mg every day and will Hold medications for now. #Insulin-dependent diabetes mellitus type 2 A1c: 10.5 - Started on insulin degludec 13 units daily at night, increased to 18 units, adjusted to 22 units as of 05/01 based on blood sugars on morning labs - Sliding scale insulin lispro every 6 hourly with fingerstick blood sugar checks #Microcytic anemia Likely 2/2 anemia of chronic disease, but could not rule out other differentials like nutritional deficiency - Iron panel, ferritin, folic acid, vitamin B12, reticulocyte count, peripheral smear and LDH ordered - showed iron deficiency - Daily a.m. 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 #S/P stroke, Vascular dementia and MSA - At his normal baseline #septic shock, resolved #Non-anion gap metabolic acidosis, resolved #Lactic acidosis 2/2 sepsis, resolved Health Maintenance: Code Status: Full (Confirmed with ) DVT Prophylaxis: None, patient has DVTs so no SCD, and no anticoagulation as he has GI bleed GI Prophylaxis: Protonix IV 40 BID Diet: NPO except medications German: Urinary Catheter Lines: PIV Supplemental O2: Mechanical Ventilation Disposition: Telemetry, pending acute bleed workup, and pending transfer to [facility] for IVC filter Patient seen and care discussed with my attending physician, Dr. Diallo and my senior residents Dr. Han Man and Dr. Bianchi. Mariam Brower, LIZZETTE-IV
--- NOTE | 2025-05-15 14:38 | PC.SS ---
Rounding Note: Transfer request to [facility] submitted. [facility] has deferred request to [facility]. [facility] to review. [facility] will not have IR present until tomorrow to review transfer request. Transfer pending.
[2025-05-15] MEDS: INSULIN DEGLUDEC 5 UNIT/0.05 ML (PER 5 UNITS) 25 UNIT SC (20:58)
--- NOTE | 2025-05-15 22:07 | ESPR_ITS ---
Documentation for date of: 05/15/25 Subjective Subjective Interval history: Patient evaluated Small bowel follow-through was put on hold by the internal medicine team because patient had bowel movement The last picture was dilated loops of jejunum I will repeat an abdominal x-ray tonight to see if the contrast is in the right colon Exam Vital Signs Temp Pulse Resp BP Pulse Ox O2 Del Method O2 Flow Rate 97.0 F 100 27 H 119/61 99 Mechanical Ventilation 30 05/15/25 19:45 05/15/25 20:00 05/15/25 19:45 05/15/25 19:45 05/15/25 19:45 05/15/25 19:45 05/15/25 15:48 FiO2 30 05/15/25 19:37 Objective Labs 05/15/25 05:04 05/15/25 05:04 Labs: Laboratory Results - last 24 hr 05/15/25 05:04 WBC 8.1 RBC 3.29 L Hgb 8.6 L Hct 27.4 L MCV 83 MCH 26.1 MCHC 31.4 RDW Std Deviation 61.2 H Plt Count 361 Neut % (Auto) 72 Lymph % (Auto) 13 [place] % (Auto) 7 Eos % (Auto) 8 Baso % (Auto) 1 Neut # (Auto) 5.8 Lymph # (Auto) 1.0 [place] # (Auto) 0.6 Eos # (Auto) 0.6 H Baso # (Auto) 0.1 Immature Gran # (Auto) 0.04 H Absolute Nucleated RBC 0.00 Immature Gran % 1 H Nucleated RBC % 0 Sodium 150 H Potassium 3.4 Chloride 108 H Carbon Dioxide 28.1 Anion Gap 14 BUN 22 Creatinine 0.9 Estim Creat Clear Calc 90.4 eGFR > 60 BUN/Creatinine Ratio 24 H Glucose 89 Calculated Osmolality 300 H Calcium 9.1 Corrected Calcium 10.0 Phosphorus 3.2 Magnesium 2.2 Total Bilirubin 0.8 AST 25 ALT 11 Alkaline Phosphatase 129 H Total Protein 7.2 Albumin 2.9 L Globulin 4.3 H Albumin/Globulin Ratio 0.7 L Impressions Impression: Small bowel obstruction Plan KUB Hold off the feeding ABG Interpretation ABG results: 04/27/25 04/27/25 04/27/25 02:12 07:39 09:19 ABG pH 7.30 L 7.18 L* D 7.24 L ABG pCO2 41 53 H D 44 ABG pO2 99 98 110 H ABG HCO3 20 20 19 L ABG O2 Saturation 98 98 99 H ABG Base Excess -6 L -9 L -8 L 04/27/25 04/28/25 04/30/25 12:15 04:10 04:21 ABG pH 7.28 L 7.34 L 7.26 L ABG pCO2 39 36 46 D ABG pO2 135 H D 111 H D 66 L D ABG HCO3 18 L 19 L 20 ABG O2 Saturation 100 H 99 H 93 ABG Base Excess -8 L -6 L -6 L 04/30/25 05/01/25 16:15 04:07 ABG pH 7.31 L 7.30 L ABG pCO2 43 50 H ABG pO2 69 L 64 L ABG HCO3 22 25 ABG O2 Saturation 94 93 ABG Base Excess -4 L -2 Assessment & Plan A&P Narrative finished zosyn and vanco today. do not repeat cxr unless he is worse or for 4-6 weeks after the event. same for sputum cx he is 80 and on a vent and not interactive, so a discussion about expectations and goals of care is prudent . may be unrealistic in her expectations so please discuss with her as you are able. finished zosyn and vanco. pt remains a full code despite his condition. I signed off on monday 05/07 when primary team restarted the vanco after it was stopped. and refused to have a goals of care discussion with pt and . will sign off again in hopes that primary team will have a discussion with decision makers about extent of rx (goals of care). Time Spent With Patient Time: Total time spent is greater than 50% in coordination of care (as documented) at patient's floor/unit and/or counseling patient:
--- NOTE | 2025-05-15 22:09 | XR_ITS ---
Examination: Abdomen AP single view Technique: AP portable supine abdomen, single view Exam date and time: May 15, 2025, 10:17 PM Indications: Small bowel series yesterday, abdominal pain and distention this week. Findings: Contrast primarily throughout the colon Orogastric tube in the stomach Impression: Negative for small bowel obstruction
[2025-05-16] VITALS (11 sets, daily range): BP systolic 114–150; BP diastolic 65–91; PULSE 89–104; RESP 18–22; TEMP 36.1–36.7; O2SAT 98–100; BMI 39.1
[2025-05-16] MEDS: METOCLOPRAMIDE INJ 5 MG/ML VIAL 2 ML IVP ×4 (05:52→23:40)
[2025-05-16] MEDS: SUCRALFATE 1 GM TABLET GT ×3 (05:52→21:04)
[2025-05-16 05:54] LABS: Basophils # (Auto) 0.0 Thou/mm3 (0.0-0.2); Basophils % (Auto) 1 % (0-2.5); Eosinophils # (Auto) 0.7 Thou/mm3 (0.0-0.5); Eosinophils % (Auto) 11 % (0-10); Hematocrit 27.7 % (41.0-53.0); Immature Granulocytes Auto 0.03 Thou/mm3 (0.00-0.00); Lymphocytes # (Auto) 1.3 Thou/mm3 (1.0-4.8); Lymphocytes % (Auto) 20 % (10-50); Mean Corpuscular HGB Conc 30.7 g/dl (31.0-37.0); Mean Corpuscular Hemoglobin 26.2 pg (25.0-35.0); Mean Corpuscular Volume 86 fL (80-100); Monocytes # (Auto) 0.5 Thou/mm3 (0.0-0.8); Monocytes % (Auto) 8 % (0-12); Neutrophils # (Auto) 4.0 Thou/mm3 (1.8-7.7); Neutrophils % (Auto) 60 % (37-80); Nucleated Red Blood Cell # 0.00 Thou/mm3 (0.00-0.00); Nucleated Red Blood Cell % 0 /100 WBC (0); Platelet Count 380 Thou/mm3 (140-440); RDW Standard Deviation 63.7 fL (35.1-43.9); Red Blood Count 3.24 Miln/mm3 (4.50-5.90); White Blood Count 6.7 Thou/mm3 (3.8-10.6)
[2025-05-16 06:02] LABS: Hemoglobin 8.5 g/dL (13.5-16.0)
[2025-05-16 06:44] LABS: Alanine Aminotransferase 9 U/L (10-49); Albumin, Serum 2.8 gm/dL (3.4-4.8); Albumin/Globulin Ratio 0.6 (1.2-2.2); Alkaline Phosphatase 117 U/L (46-116); Anion Gap 10 (7-16); Aspartate Amino Transferase 21 U/L (0-34); BUN/Creatinine Ratio 21 Ratio (12-20); Bilirubin,Total 0.6 mg/dL (0.3-1.2); Blood Urea Nitrogen 17 mg/dL (9-23); Calcium 9.0 mg/dL (8.3-10.6); Calcium (Corrected) 10.0 mg/dL (8.5-10.1); Carbon Dioxide 29.9 mMol/L (20.0-31.0); Chloride 107 mMol/L (98-107); Creatinine (Component) 0.8 mg/dL (0.6-1.3); Estimated Creatinine Clearance 100.5 mL/min (>60); Globulin 4.4 gm/dL (2.3-3.5); Glucose 98 mg/dL (74-106); Magnesium 2.0 mg/dL (1.6-2.6); Osmolality,Calculated 293 (275-295); Phosphorous 3.6 mg/dL (2.4-5.1); Potassium 3.2 mMol/L (3.4-5.1); Sodium 147 mMol/L (136-145); Total Protein 7.2 gm/dL (5.7-8.2); eGFR > 60 See Note
[2025-05-16] MEDS: POTASSIUM CHLORIDE 10% 20 MEQ/15 ML UDC 40 MEQ GT (08:49)
[2025-05-16] MEDS: DEXTROSE 5%-WATER 1,000 ML 80 ML IV ×2 (08:50→21:03)
--- NOTE | 2025-05-16 08:55 | PC.CM ---
Addendum entered by Louise Keyes RN 05/16/25 19:14: Patient has been accepted to [facility]. Transfer nurse Gwendloyn Ortiz from the transfer center in [facility] phone # [phone]. Packet completed with CD and I handed off to ICU charge nurse. Addendum entered by Louise Keyes RN 05/16/25 12:34: 1220 I received a call from Beba and she asked if Dr. Diallo is still the doctor for patient. I verified she had the number. She states the [facility] doctor will be reaching to to speak to him peer to peer. Addendum entered by Louise Keyes RN 05/16/25 12:02: 1120 I received a call from Beba transfer nurse from [facility]. She asked me to send updated labs and latest progress notes. I faxed them over. She states they are having the [facility] and [facility] team review patient. Original Note: 08 I received a call from Beba buitrago nurse from [facility]. She asked me to fax the CT of abd with contrast and the ultrasound report. She asked me to push over images. fax# [phone]. I faxed over reports and I pushed over images.
--- NOTE | 2025-05-16 11:51 | ESPR_ITS ---
<Statement entered by Tee Diallo MD - 05/28/25 09:06> I reviewed above note and agree with findings and plans. I have also personally examined the patient with medicine team and went over assessment and plan with medical team including internal control consultant and resident physician. <Statement entered by Brian Man MD - 05/16/25 13:43> No acute overnight events. Seen and examined at bedside and updated daughter regarding current plans and she expressed understanding. Vital signs stable, hemoglobin stable, WBC continues to downtrend. Hyponatremia improving, K 3.2 and repleted. Per GI, will continue to hold tube feedings per recommendations. Otherwise, continue to follow-up transfer process. ----- Note reviewed and agree with care plan as documented. Please refer to the note below for further details. Plan discussed with attending physician Dr. Imani Man MD PGY-2 Internal Medicine Documentation for date of: 05/16/25 Subjective Subjective Interval history: 80 y/o male with extensive PMH including chronic respiratory failure, chronic vegetative state s/p tracheotomy, G-tube. Stay is currently complicated by bilateral lower extremity DVTs, and acute blood loss anemia secondary to GI bleed s/p EGD, patient pending transfer to [place] for advanced care and IVC filter placement. No acute events overnight. Yesterday, patient he had one small loose bowel movement that is dark. Hemoglobin has stayed stable. Patient was seen at bedside today morning. Status unchanged. Patient still had an NG tube in place (clamped). Nurse was in room, when the nurse tried giving meds through the PEG tube, about 50 ml of dark red liquid came out. Exam Vital Signs Temp Pulse Resp BP Pulse Ox O2 Del Method O2 Flow Rate 97.8 F 96 19 142/84 H 99 Mechanical Ventilation 30 05/16/25 08:00 05/16/25 08:00 05/16/25 08:00 05/16/25 08:00 05/16/25 08:00 05/16/25 08:00 05/15/25 15:48 FiO2 30 05/16/25 07:17 Narrative Exam General: Obese, chronically ill-appearing man. Tracheostomy on mechanical ventilation. Not responsive to audible or visual stimulus. Neurologic: Unresponsive, unable to move any extremities. Eyes were closed, did not open to voice. HEENT: Normocephalic, atraumatic, mucous membranes moist. Heart: Tachycardic, regular rhythm, no murmurs, gallops, or rubs auscultated. Lungs: Clear to auscultation bilaterally with no wheezing or crackles. Abdomen: Obese, mild distention, firm diffusely, normal bowel sounds. Patient reacted to abdominal palpation (seemed to be painful). MSK/Extremities: 1+ pitting edema bilaterally lower extremities upto the knees. Bilateral upper exteremities also 1+ edema. Equal peripheral pulses. Bilateral lower extremity nails turned black. Objective Labs 05/16/25 04:46 05/16/25 04:46 Labs: Laboratory Results - last 24 hr 05/16/25 04:46 WBC 6.7 RBC 3.24 L Hgb 8.5 L Hct 27.7 L MCV 86 MCH 26.2 MCHC 30.7 L RDW Std Deviation 63.7 H Plt Count 380 Neut % (Auto) 60 Lymph % (Auto) 20 [place] % (Auto) 8 Eos % (Auto) 11 H Baso % (Auto) 1 Neut # (Auto) 4.0 Lymph # (Auto) 1.3 [place] # (Auto) 0.5 Eos # (Auto) 0.7 H Baso # (Auto) 0.0 Immature Gran # (Auto) 0.03 H Absolute Nucleated RBC 0.00 Immature Gran % 0 Nucleated RBC % 0 Sodium 147 H Potassium 3.2 L Chloride 107 Carbon Dioxide 29.9 Anion Gap 10 BUN 17 Creatinine 0.8 Estim Creat Clear Calc 100.5 eGFR > 60 BUN/Creatinine Ratio 21 H Glucose 98 Calculated Osmolality 293 Calcium 9.0 Corrected Calcium 10.0 Phosphorus 3.6 Magnesium 2.0 Total Bilirubin 0.6 AST 21 ALT 9 L Alkaline Phosphatase 117 H Total Protein 7.2 Albumin 2.8 L Globulin 4.4 H Albumin/Globulin Ratio 0.6 L ABG Interpretation ABG results: 04/27/25 04/27/25 04/27/25 02:12 07:39 09:19 ABG pH 7.30 L 7.18 L* D 7.24 L ABG pCO2 41 53 H D 44 ABG pO2 99 98 110 H ABG HCO3 20 20 19 L ABG O2 Saturation 98 98 99 H ABG Base Excess -6 L -9 L -8 L 04/27/25 04/28/25 04/30/25 12:15 04:10 04:21 ABG pH 7.28 L 7.34 L 7.26 L ABG pCO2 39 36 46 D ABG pO2 135 H D 111 H D 66 L D ABG HCO3 18 L 19 L 20 ABG O2 Saturation 100 H 99 H 93 ABG Base Excess -8 L -6 L -6 L 04/30/25 05/01/25 16:15 04:07 ABG pH 7.31 L 7.30 L ABG pCO2 43 50 H ABG pO2 69 L 64 L ABG HCO3 22 25 ABG O2 Saturation 94 93 ABG Base Excess -4 L -2 Quality Measures Quality Measures VTE prophylaxis Advance care planning discussed with:: spouse Assessment & Plan Assessment Current Active Medications: Generic Name Dose Route Start Last Admin Trade Name Freq PRN Reason Stop Dose Admin Acetaminophen 1,000 mg 05/07/25 15:20 05/11/25 04:56 Acetaminophen 500 Mg Tablet PO 06/06/25 15:19 1,000 mg Q6HR PRN Administration Fever >99.5 Amlodipine Besylate 5 mg 05/13/25 21:00 Amlodipine Besylate 5 Mg Tablet GT 06/12/25 20:59 On Hold: 05/13/25 21:00 HS IMANI Dextrose 50 ml 04/27/25 03:37 05/15/25 11:46 Dextrose 50%-Water Inj 50 Ml Syringe IV 05/27/25 03:36 50 ml Q15MIN PRN Administration BG <50 OR BG <70 & pt unresponsive Glucagon 1 mg 04/27/25 03:37 Glucagon Inj 1 Mg Vial IM Q15MIN PRN BG <70, and no IV access Dextrose 1,000 mls @ 80 mls/hr 05/15/25 08:15 05/16/25 08:50 D5w IV 06/14/25 08:14 80 mls/hr .[id number] IMANI Administration Insulin Degludec 25 unit 05/13/25 21:00 05/15/25 20:58 Insulin Degludec 5 Unit/0.05 Ml (Per 5 Units) SC 06/12/25 20:59 25 unit HS IMANI Administration Insulin Human Lispro 0 unit 04/27/25 06:00 05/16/25 05:50 Insulin Lispro (Admelog) 1 Unit/0.01 Ml Unit SC 05/27/25 05:59 Not Given Q6HR [facility] Protocol Metoclopramide HCl 5 mg 05/04/25 00:00 05/16/25 05:52 Metoclopramide Inj 5 Mg/Ml Vial 2 Ml IVP 06/03/25 00:00 5 mg Q6HR IMANI Administration Protocol Midodrine 10 mg 05/16/25 09:22 Midodrine 5 Mg Tablet PO 06/01/25 10:44 TID PRN hypotension SBP <95 Pantoprazole Sodium 40 mg 05/13/25 10:30 05/16/25 08:49 Pantoprazole Inj 40 Mg Vial IVP 06/12/25 10:29 40 mg BID IMANI Administration Sucralfate 1 gm 05/13/25 14:00 05/16/25 05:52 Sucralfate 1 Gm Tablet GT 06/12/25 13:59 1 gm TID IMANI Administration Plan Kwadwo Sanchez is a 80-year-old male with significant past medical history of chronic respiratory failure s/p trach/PEG tube, chronic, MRSA pneumonia, Pseudomonas UTI, MRSA bacteremia, sacral ulcer, and several other chronic conditions. Patient was admitted to ICU for further management of septic shock secondary to pneumonia and UTI; Downgraded from ICU no longer needing pressors; continuing to manage acute blood loss anemia secondary to upper GI bleed, lower extremity bilateral DVT, and [facility]. #Acute DVT Bilatereal non-occlusive common femoral DVT on duplex US Could be the likely cause of new febrile episodes and leukocytosis Pulmonary embolism ruled out by chest CT angio. Sonographic assessment of the right and left common femoral veins demonstrates occlusive thrombus in both veins, precluding successful percutaneous access. - Stopped anticoagulation because of the GI bleed. - Stopped SCDs to prevent dislodging thrombus - Risk and benefits of anticoagulation in the setting of DVT and active bleeding explained to family. - IVC filter unsuccessful, [facility]. #Acute blood loss anemia secondary to upper GI bleed. HgB 8.5 - stable over 24 hours Hematuria stopped, german bag is clear after stopping lovenox FOBT positive EGD (05/12): esophageal varices, and diffuse gastritis. Massive bilous secretions in descending duodenum which was aspirated in the body of the stomach, too, as patient was vomiting as well as coffee-ground material in the body of stomach. About 300cc of bilous secretions was aspirated during the procedure. - Stopped anticoagulation used for DVTs due to new acute bleeding - GI on board, appreciate recs - Protonix IV 40mg BID - Sucralfate GT 1g TID - NPO except meds - Monitor daily CBC - Will transfuse if HgB continues to drop or if anemia symptoms develop. #Small bowel obstruction (mechanical vs non mechanical)- resolved KUB (05/13/25) : Large amount of stool throughout the colon. Patient vomited coffee-ground material. EGD finding as noted below also suggest bowel obstruction (mechanical vs non mechanical) 05/14/25: patient underwent small bowel gastrographin follow through study and had 2 large bowel movements overnight. - Patient NPO except medications - NGT removed #Healthcare associated pneumonia Vs Severe UTI - resolving #S/p chronic tracheostomy #Leukocytosis- resolved Chest x-ray revealed bilateral pneumonia. Blood cultures no growth. CT A/P 05/02 along with residuals from PEG tube makes aspiration pneumonia another ddx. Suspicion remains for unidentified source of infection due to patient's intermittent fever, leukocytosis, and tachycardia General surgery does not recommend surgical debridement of sacral wounds at this time Venous Duplex US positive for bilateral non-occlusive DVT: possible cause of leukocytosis and fever. MRI thoracic and lumbar spine with contrast (05/08/25) ruled out spinal epidural abscess as potential source of infection. Noted suspicion for L3-L4 discitis. Chest CT angio (05/09/25): ruled out pulmonary embolism RUQ ultrasound (05/10/25): ruled out cholecystitis. (05/14/25) finished 7 day Zosyn and Vancomycin course, ID signed off - GI will place PEG tube with gastric/jejunostomy port outpatient - Mupirocin topical for MRSA in the nares 05/07/2025 - Midodrine 10mg TID as needed if MAP < 65 and SBP <100 - 1g morphine IVP x1, to monitor improvement of vitals with better pain control - Cont monitoring WBCs #Hypomagnesemia - stable - Cont to monitor daily magnesium, and watch for symptoms of toxicity. - Replete as needed to keep Mg >2 #Hyponatremia, stable Possibly due to renal failure, CHF, cirrhosis The patient presented with sodium of 117, but corrected sodium was 123 --> 05/01, 126 - Will continue to monitor sodium levels and replete as needed to keep over 4 #MARGARETTE- resolved/improving Likely prerenal leading to ATN secondary to sepsis Cr back at baseline (~1) - Continue to monitor renal panel. - Avoid nephrotoxins #Right heart failure and moderate pulmonary hypertension Echo on 04/27 - showed right ventricular volume/pressure overload, mild to moderate TR, RVSP elevated at 40 to 45 mmHg. EF is 55 to 60% Plan: - Outpatient cardiac cath post discharge to categorize pulmonary hypertension and needs treatment accordingly. - Due to patients other commodities, not a candidate for in-patient management of pulmonary hypertension. #Hypertension, controlled - Using Amlodipine 10mg every day and will Hold medications for now. #Insulin-dependent diabetes mellitus type 2 A1c: 10.5 - Started on insulin degludec 13 units daily at night, increased to 18 units, adjusted to 22 units as of 05/01 based on blood sugars on morning labs - Sliding scale insulin lispro every 6 hourly with fingerstick blood sugar checks #Microcytic anemia Likely 2/2 anemia of chronic disease, but could not rule out other differentials like nutritional deficiency - Iron panel, ferritin, folic acid, vitamin B12, reticulocyte count, peripheral smear and LDH ordered - showed iron deficiency - Daily a.m. 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 #S/P stroke, Vascular dementia and MSA - At his normal baseline #septic shock, resolved #Non-anion gap metabolic acidosis, resolved #Lactic acidosis 2/2 sepsis, resolved Health Maintenance: Code Status: Full (Confirmed with ) DVT Prophylaxis: None, patient has DVTs so no SCD, and no anticoagulation as he has GI bleed GI Prophylaxis: Protonix IV 40 BID Diet: NPO except medications German: Urinary Catheter Lines: PIV Supplemental O2: Mechanical Ventilation Disposition: Telemetry, pending acute bleed workup, and pending transfer to [place] for IVC filter Patient seen and care discussed with my attending physician, Dr. Diallo and my senior residents Dr. Han Man and Dr. Bianchi. Mariam Brower, S-IV
--- NOTE | 2025-05-16 14:25 | PC.SS ---
Rounding Note: Patient pending transfer. Daija Hatfield is reviewing referral.
--- NOTE | 2025-05-16 18:19 | ESDS_ITS ---
<Statement entered by Tee Diallo MD - 05/28/25 09:06> I reviewed above note and agree with findings and plans. I have also personally examined the patient with medicine team and went over assessment and plan with medical team including graduate intern and resident physician. Planned Discharge Date 05/16/25 DS: Providers Provider Date of admission: 04/27/25 01:59 Primary care physician: Alexa Heredia MD Admitting Provider: Zeyad Muñiz MD Attending Provider on Admission: Tee Diallo MD Consults: 04/27/25 03:27 Consult to Nephrology Routine Comment: Consulting Provider: Carleen Jensen 04/27/25 04:21 Referral Nutritional Services Routine Comment: Referral Wound Care Routine Comment: 05/02/25 07:49 Consult to Infectious Diseases Stat Comment: Septic shock, source, multiple positive cultures Consulting Provider: Porter Castillo 05/03/25 10:40 Consult to Gastroenterology Routine Comment: Consulting Provider: Simon Conner 05/03/25 19:45 Referral Wound Care Stat Comment: RIGHT GROIN AREA. TRIFLOW SITE. MOISTURE DERM... Instructions: POSSIBLE MOISTURE DERMATITIS. PURULENT DISCHARGE NOTED AT SITE. 05/07/25 10:14 Consult to General Surgery Routine Comment: Consulting Provider: Brina Langford 05/09/25 19:15 Consult to Infectious Diseases Routine Comment: Consulting Provider: Porter Castillo 05/14/25 16:12 Referral - Preform Plate Maker Routine Service Needed for Transfer: Vascular Surgery Addl Comments:: Kwadwo Sanchez is a 80-year-old male with significant past medical history of chronic respiratory failure, chronic vegetative state s/p trach/PEG tube, chronic, MRSA pneumonia, Pseudomonas UTI, MRSA bacteremia, sacral ulcer, and several other chronic conditions. Patient was admitted to ICU for further management of septic shock secondary to pneumonia and UTI. Downgraded from ICU as he no longer needing pressors. Currently continuing to manage acute blood loss anemia secondary to upper GI bleed, lower extremity bilateral DVT, and small bowel obstruction. Today (05/14/25) interventional radiology attempted percutaneous placement of inferior venacavogram filter (patient has DVTs and but not a candidate for anticoagulation due to GI bleed). Sonographic assessment of the right and left common femoral veins demonstrates occlusive thrombus in both veins, precluding successful percutaneous access. Being unable to place IVC filter at [facility], patient is being transferred to ID for another attempt at placement of IVC filter vs other management approaches such as thrombectomy. Attending Provider on DC: Brian Man MD Discharging Provider: Brian Man MD DS: Diagnosis Problem List Completed Was Problem List Reviewed/Reconciled?: Yes Hospital Course Hospital Course Hospital course: Kwadwo Sanchez is a 80-year-old male with a past medical history of CVA status post trach and PEG, hypertension, hyperlipidemia, type 2 diabetes mellitus, MRSA pneumonia bacteremia, Pseudomonas UTIs, and chronic pressure ulcers who presented on 04/27/[address] [facility] and was admitted to the ICU for management of septic shock secondary to pneumonia and UTI. 4/4 SIRS criteria, qSOFA 1 on admission, with WBC 20.6, Pro-Tevin 2.28, lactate 2.2. CXR showed left base pneumonia and urinalysis suggestive of UTI. Abbott catheter exchanged in ED. Initially started on IV Zosyn and vancomycin given history of MRSA bacteremia and Pseudomonas UTIs. Also presented with sodium of 117 but corrected sodium of 123 for hyperglycemia and also underwent short stint of hemodialysis for 3 days due to persistent hyponatremia, significant fluid overloaded and oligoanuric state that eventually resolved and Vas-Cath removed. Otherwise, patient continued to have persistent and uptrending leukocytosis that eventually subsided while on zosyn. However, patient was noted to have repeat fever of 100.4 ?F after being afebrile for more than 7 days. Workup for noninfectious etiologies were started and Doppler of lower extremities were positive for acute nonocclusive thrombus in right and left common femoral veins. Patient was subsequently started on Eliquis but noted to have drop in hemoglobin that required a total of 3 units PRBC over the course of 3 days and patient noted to have hematuria as well. Anticoagulation stopped and hemoglobin stabilized and attempted to place IVC filter but right and left, femoral veins demonstrated occlusive thrombus precluding successful percutaneous access. Given that resources were exhausted here in house, decision was made to initiate transfer process for vascular surgery versus advanced IR. On day of discharge, patient is afebrile and other vital signs stable, hemoglobin stable for last 3 days at 8.5, no leukocytosis, and hyponatremia resolved. Of note, patient had significant residual from tube feedings and tube feedings were stopped on 9/6 and patient was started on D5W for both mild hypernatremia and maintain blood sugar levels. Spoke to in-house style advisor and recommended to hold tube feedings during transportation but okay to resume upon arrival to destination. ----- Note reviewed and agree with care plan as documented. Please refer to the note below for further details. Plan discussed with attending physician Dr. Imani Man MD PGY-2 Internal Medicine Time Spent with Patient Time attestation: Total time spent providing and/or coordinating discharge services: Time spent: Greater than 30 minutes Exam Vital Signs Temp Pulse Resp BP Pulse Ox O2 Del Method O2 Flow Rate 97.2 F 96 18 135/86 H 99 Mechanical Ventilation 30 05/16/25 16:00 05/16/25 16:19 05/16/25 16:05/16/25 16:00 05/16/25 16:19 05/16/25 16:00 05/15/25 15:48 FiO2 30 05/16/25 16:19 Narrative Exam General: Obese, chronically ill-appearing man. Tracheostomy on mechanical ventilation. Not responsive to audible or visual stimulus. Neurologic: Unresponsive, unable to move any extremities. Eyes were closed, did not open to voice. HEENT: Normocephalic, atraumatic, mucous membranes moist. Heart: Tachycardic, regular rhythm, no murmurs, gallops, or rubs auscultated. Lungs: Clear to auscultation bilaterally with no wheezing or crackles. Abdomen: Obese, mild distention, normal bowel sounds. MSK/Extremities: 1+ pitting edema bilaterally lower extremities upto the knees. Bilateral upper exteremities also 1+ edema. Equal peripheral pulses. Bilateral lower extremity nails turned black. Discharge Plan Plan Patient Disposition: Xfer Skilled Nsg Fac (SNF) Care Plan Goals: Discharge instructions: Follow up with your PCP within one week from dishcharge Use medications as prescribed Continue wound care as per guest attendant recommendations Follow up with the gastro-enterologist regarding your PEG tube replacement In case of worsening of your symptoms please return to the ED as soon as possible Prescriptions/Referrals Prescriptions/Med Rec: New amoxicillin-pot clavulanate 875-125 mg tablet 1 tab PO BID 2 Days Qty: 4 0RF insulin glargine U-300 conc 300 unit/mL (3 mL) insulin pen 30 unit subcut QDAY 7 Days Qty: 6 0RF apixaban 5 mg tablet 10 mg PO BID 6 Days Qty: 24 0RF Rx Instructions: Continue until 05/16 and then 5 mg BID thereafter apixaban 5 mg tablet 5 mg PO BID 30 Days Qty: 60 0RF Rx Instructions: To be started for DVT treatment on 05/17 Continued cetirizine 10 mg Tablet 10 mg feeding tube QDAY multivitamin with minerals Liquid 15 ml feeding tube QDAY melatonin 3 mg Tablet 5 mg feeding tube HS ascorbic acid (vitamin C) 500 mg Tablet 500 mg feeding tube BID Fleet Enema 19-7 gram/118 mL Enema 118 ml ND PRN PRN (Reason: Constipation) aspirin 81 mg Tablet,Chewable 81 mg feeding tube QDAY ezetimibe 10 mg Tablet 10 mg feeding tube QPM simethicone 80 mg Tablet,Chewable 80 mg feeding tube BID lactulose 10 gram/15 mL Solution 20 g PO QDAY bisacodyl 10 mg Suppository 10 mg ND EVERYOTHERDAY PRN (Reason: bowel ) gabapentin 300 mg Capsule 600 mg PO BID amlodipine 5 mg Tablet 10 mg feeding tube QDAY Changed ferrous sulfate 220 mg (44 mg iron)/5 mL Solution 220 mg PO Q OTHER DAY 21 Days Qty: 55 0RF Discontinued clopidogrel 75 mg Tablet 75 mg feeding tube QDAY fluticasone propionate 50 mcg/actuation [employer],Suspension 1 spray INTRANASAL QDAY glipizide 5 mg Tablet 5 mg feeding tube QDAY furosemide 20 mg Tablet 20 mg PO QDAY ketotifen fumarate 0.025 % (0.035 %) Drops 1 drp OPHTHALMIC (EYE) BID Rx Instructions: administer at least 8 hours apart sennosides [senna] 8.8 mg/5 mL Syrup 5 ml PO BID sodium bicarbonate 650 mg Tablet 650 mg PO QDAY insulin glargine 100 unit/mL Cartridge 25 unit SUBCUT QPM Lokelma 5 gram Powder In Packet 5 g PO Q OTHER DAY meropenem 1 gram recon soln 1 g IV QDAY MDD 1 gram 60 Days Qty: 25 2RF Referrals: Alexa Heredia MD [Primary Care Provider] Patient/Caregiver Discharge Instructions Education Materials: Understanding Post Sepsis Syndrome, Urinary Tract Infections in Men, Sepsis, Acute Kidney Failure Dc Print Language: [place] Stand Alone Forms: Vacation View Info., Patient Portal Info Letter Quality Discharge Quality Measures none (VTE prophylaxis C/I due to bleed)
--- NOTE | 2025-05-16 21:42 | PD.IMPROG ---
Documentation for date of: 05/16/25 Subjective Subjective Interval history: Repeat KUB shows contrast in the colon no dilatation of the small bowel case discussed with internal medicine team and patient is getting transferred hold off the PEG feeding tube the patient was transferred To avoid risk of aspiration during transfer Exam Vital Signs Temp Pulse Resp BP Pulse Ox O2 Del Method O2 Flow Rate 98.1 F 104 H 22 H 150/88 H 99 Mechanical Ventilation 30 05/16/25 20:00 05/16/25 20:00 05/16/25 20:00 05/16/25 20:00 05/16/25 20:00 05/16/25 20:00 05/15/25 15:48 FiO2 30 05/16/25 16:19 Objective Labs 05/16/25 04:46 05/16/25 04:46 Labs: Laboratory Results - last 24 hr 05/16/25 04:46 WBC 6.7 RBC 3.24 L Hgb 8.5 L Hct 27.7 L MCV 86 MCH 26.2 MCHC 30.7 L RDW Std Deviation 63.7 H Plt Count 380 Neut % (Auto) 60 Lymph % (Auto) 20 [place] % (Auto) 8 Eos % (Auto) 11 H Baso % (Auto) 1 Neut # (Auto) 4.0 Lymph # (Auto) 1.3 [place] # (Auto) 0.5 Eos # (Auto) 0.7 H Baso # (Auto) 0.0 Immature Gran # (Auto) 0.03 H Absolute Nucleated RBC 0.00 Immature Gran % 0 Nucleated RBC % 0 Sodium 147 H Potassium 3.2 L Chloride 107 Carbon Dioxide 29.9 Anion Gap 10 BUN 17 Creatinine 0.8 Estim Creat Clear Calc 100.5 eGFR > 60 BUN/Creatinine Ratio 21 H Glucose 98 Calculated Osmolality 293 Calcium 9.0 Corrected Calcium 10.0 Phosphorus 3.6 Magnesium 2.0 Total Bilirubin 0.6 AST 21 ALT 9 L Alkaline Phosphatase 117 H Total Protein 7.2 Albumin 2.8 L Globulin 4.4 H Albumin/Globulin Ratio 0.6 L Impressions Impression: Ileus versus small bowel obstruction resolving as a recent KUB shows contrast in the right colon agree with transfer to a tertiary center ABG Interpretation ABG results: 04/27/25 04/27/25 04/27/25 02:12 07:39 09:19 ABG pH 7.30 L 7.18 L* D 7.24 L ABG pCO2 41 53 H D 44 ABG pO2 99 98 110 H ABG HCO3 20 20 19 L ABG O2 Saturation 98 98 99 H ABG Base Excess -6 L -9 L -8 L 04/27/25 04/28/25 04/30/25 12:15 04:10 04:21 ABG pH 7.28 L 7.34 L 7.26 L ABG pCO2 39 36 46 D ABG pO2 135 H D 111 H D 66 L D ABG HCO3 18 L 19 L 20 ABG O2 Saturation 100 H 99 H 93 ABG Base Excess -8 L -6 L -6 L 04/30/25 05/01/25 16:15 04:07 ABG pH 7.31 L 7.30 L ABG pCO2 43 50 H ABG pO2 69 L 64 L ABG HCO3 22 25 ABG O2 Saturation 94 93 ABG Base Excess -4 L -2 Assessment & Plan A&P Narrative finished zosyn and vanco today. do not repeat cxr unless he is worse or for 4-6 weeks after the event. same for sputum cx he is 80 and on a vent and not interactive, so a discussion about expectations and goals of care is prudent . may be unrealistic in her expectations so please discuss with her as you are able. finished zosyn and vanco. pt remains a full code despite his condition. I signed off on monday 05/07 when primary team restarted the vanco after it was stopped. and refused to have a goals of care discussion with pt and . will sign off again in hopes that primary team will have a discussion with decision makers about extent of rx (goals of care). Time Spent With Patient Time: Total time spent is greater than 50% in coordination of care (as documented) at patient's floor/unit and/or counseling patient:
[2025-05-17] VITALS (8 sets, daily range): BP systolic 134–150; BP diastolic 71–87; PULSE 89–108; RESP 16–24; TEMP 36.2–38; O2SAT 98–100; BMI 39.3
[2025-05-17] MEDS: ACETAMINOPHEN 500 MG TABLET 1000 MG PO (00:01)
[2025-05-17] MEDS: METOCLOPRAMIDE INJ 5 MG/ML VIAL 2 ML IVP (05:30)
[2025-05-17] MEDS: SUCRALFATE 1 GM TABLET GT (05:30)
[2025-05-17 05:53] LABS: Basophils # (Auto) 0.0 Thou/mm3 (0.0-0.2); Basophils % (Auto) 1 % (0-2.5); Eosinophils # (Auto) 0.6 Thou/mm3 (0.0-0.5); Eosinophils % (Auto) 11 % (0-10); Hematocrit 27.8 % (41.0-53.0); Immature Granulocytes Auto 0.02 Thou/mm3 (0.00-0.00); Lymphocytes # (Auto) 1.1 Thou/mm3 (1.0-4.8); Lymphocytes % (Auto) 20 % (10-50); Mean Corpuscular HGB Conc 30.6 g/dl (31.0-37.0); Mean Corpuscular Hemoglobin 26.0 pg (25.0-35.0); Mean Corpuscular Volume 85 fL (80-100); Monocytes # (Auto) 0.5 Thou/mm3 (0.0-0.8); Monocytes % (Auto) 10 % (0-12); Neutrophils # (Auto) 3.2 Thou/mm3 (1.8-7.7); Neutrophils % (Auto) 59 % (37-80); Nucleated Red Blood Cell # 0.00 Thou/mm3 (0.00-0.00); Nucleated Red Blood Cell % 0 /100 WBC (0); Platelet Count 388 Thou/mm3 (140-440); RDW Standard Deviation 63.7 fL (35.1-43.9); Red Blood Count 3.27 Miln/mm3 (4.50-5.90); White Blood Count 5.4 Thou/mm3 (3.8-10.6)
[2025-05-17 05:54] LABS: Hemoglobin 8.5 g/dL (13.5-16.0)
[2025-05-17 06:15] LABS: Anion Gap 12 (7-16); BUN/Creatinine Ratio 16 Ratio (12-20); Blood Urea Nitrogen 13 mg/dL (9-23); Carbon Dioxide 27.2 mMol/L (20.0-31.0); Chloride 104 mMol/L (98-107); Creatinine (Component) 0.8 mg/dL (0.6-1.3); Estimated Creatinine Clearance 100.8 mL/min (>60); Potassium 3.5 mMol/L (3.4-5.1); Sodium 143 mMol/L (136-145); eGFR > 60 See Note
[2025-05-17 06:16] LABS: Alanine Aminotransferase 10 U/L (10-49); Albumin, Serum 2.8 gm/dL (3.4-4.8); Albumin/Globulin Ratio 0.6 (1.2-2.2); Alkaline Phosphatase 116 U/L (46-116); Aspartate Amino Transferase 24 U/L (0-34); Bilirubin,Total 0.6 mg/dL (0.3-1.2); Calcium 8.7 mg/dL (8.3-10.6); Calcium (Corrected) 9.7 mg/dL (8.5-10.1); Globulin 4.4 gm/dL (2.3-3.5); Glucose 121 mg/dL (74-106); Magnesium 1.8 mg/dL (1.6-2.6); Osmolality,Calculated 286 (275-295); Phosphorous 3.8 mg/dL (2.4-5.1); Total Protein 7.2 gm/dL (5.7-8.2)
--- NOTE | 2025-05-17 08:12 | PC.CC ---
Addendum entered by Felicia Strauss RN 05/17/25 10:40: received call from Tasha COKER, pt's agreeable to transport with local ambulance as long as a RT and appropriate amount of O2 is avail during the transport. Informed Tasha that one of our RT's will be accomanying and monitoring the patient during the transport. Spoke to Chinyere robertson/ dispatch, informed her of the request for extra oxygen d/t a unsatisfactory previous transport experience of running out of O2. Sent the vent settings to the transport company for their information of how much oxygen the patient requires. Ambulance transport set for 1130. Informed Kenia RT and Tasha RN. Addendum entered by Felicia Strauss RN 05/17/25 09:59: Spoke to patients and she [facility] due to unsatisfactory previous transport with our local ambulance. Called Kelsey robertson/ the TC and she stated that is not the protocol and they are unable to peanut picker patient. Spoke to bedside nurse Tasha, informed her that we would have to arrange transport with our local ambulance, she will discuss with . Addendum entered by Felicia Strauss RN 05/17/25 09:22: 0916: received call from Kelsey / [facility], pt accepted by Dr. Ray Napier. Going to [facility] Bed #1, call report to [phone] - Nurse Jody. Will arrange transportation Original Note: Received a call from Kelsey with the [facility] requesting the IVC placement report to be faxed. report faxted.
--- NOTE | 2025-05-17 09:44 | ESDS_ITS ---
<Statement entered by Tee Diallo MD - 05/28/25 09:06> I reviewed above note and agree with findings and plans. I have also personally examined the patient with medicine team and went over assessment and plan with medical team including qa intern and resident physician. Planned Discharge Date 05/17/25 DS: Providers Provider Date of admission: 04/27/25 01:59 Primary care physician: Alexa Heredia MD Admitting Provider: Zeyad Muñiz MD Attending Provider on Admission: Tee Diallo MD Consults: 04/27/25 03:27 Consult to Nephrology Routine Comment: Consulting Provider: Carleen Jensen 04/27/25 04:21 Referral Nutritional Services Routine Comment: Referral Wound Care Routine Comment: 05/02/25 07:49 Consult to Infectious Diseases Stat Comment: Septic shock, source, multiple positive cultures Consulting Provider: Porter Castillo 05/03/25 10:40 Consult to Gastroenterology Routine Comment: Consulting Provider: Simon Conner 05/03/25 19:45 Referral Wound Care Stat Comment: RIGHT GROIN AREA. TRIFLOW SITE. MOISTURE DERM... Instructions: POSSIBLE MOISTURE DERMATITIS. PURULENT DISCHARGE NOTED AT SITE. 05/07/25 10:14 Consult to General Surgery Routine Comment: Consulting Provider: Brina Langford 05/09/25 19:15 Consult to Infectious Diseases Routine Comment: Consulting Provider: Porter Castillo 05/14/25 16:12 Referral - Rn Neurosurgical Routine Service Needed for Transfer: Vascular Surgery Addl Comments:: Kwadwo Sanchez is a 80-year-old male with significant past medical history of chronic respiratory failure, chronic vegetative state s/p trach/PEG tube, chronic, MRSA pneumonia, Pseudomonas UTI, MRSA bacteremia, sacral ulcer, and several other chronic conditions. Patient was admitted to ICU for further management of septic shock secondary to pneumonia and UTI. Downgraded from ICU as he no longer needing pressors. Currently continuing to manage acute blood loss anemia secondary to upper GI bleed, lower extremity bilateral DVT, and small bowel obstruction. Today (05/14/25) interventional radiology attempted percutaneous placement of inferior venacavogram filter (patient has DVTs and but not a candidate for anticoagulation due to GI bleed). Sonographic assessment of the right and left common femoral veins demonstrates occlusive thrombus in both veins, precluding successful percutaneous access. Being unable to place IVC filter at [facility], patient is being transferred to [place] for another attempt at placement of IVC filter vs other management approaches such as thrombectomy. Attending Provider on DC: Brian Man MD Discharging Provider: Brian Man MD DS: Diagnosis Problem List Completed Was Problem List Reviewed/Reconciled?: Yes Hospital Course Hospital Course Hospital course: Kwadwo Sanchez is a 80-year-old male with a past medical history of CVA status post trach and PEG, hypertension, hyperlipidemia, type 2 diabetes mellitus, MRSA pneumonia bacteremia, Pseudomonas UTIs, and chronic pressure ulcers who presented on 04/27/2025 from [facility] at [facility] and was admitted to the ICU for management of septic shock secondary to pneumonia and UTI. 4/4 SIRS criteria, qSOFA 1 on admission, with WBC 20.6, Pro-Tevin 2.28, lactate 2.2. CXR showed left base pneumonia and urinalysis suggestive of UTI. Abbott catheter exchanged in ED. Initially started on IV Zosyn and vancomycin given history of MRSA bacteremia and Pseudomonas UTIs. Also presented with sodium of 117 but corrected sodium of 123 for hyperglycemia and also underwent short stint of hemodialysis for 3 days due to persistent hyponatremia, significant fluid overloaded and oligoanuric state that eventually resolved and Vas-Cath removed. Otherwise, patient continued to have persistent and uptrending leukocytosis that eventually subsided while on zosyn. However, patient was noted to have repeat fever of 100.4 ?F after being afebrile for more than 7 days. Workup for noninfectious etiologies were started and Doppler of lower extremities were positive for acute nonocclusive thrombus in right and left common femoral veins. Patient was subsequently started on Eliquis but noted to have drop in hemoglobin that required a total of 3 units PRBC over the course of 3 days and patient noted to have hematuria as well. Anticoagulation stopped and hemoglobin stabilized and attempted to place IVC filter but right and left, femoral veins demonstrated occlusive thrombus precluding successful percutaneous access. Given that resources were exhausted here in house, decision was made to initiate transfer process for vascular surgery versus advanced IR. On day of discharge, patient is afebrile and other vital signs stable, hemoglobin stable for last 3 days at 8.5, no leukocytosis, and hyponatremia resolved. Of note, patient had significant residual from tube feedings and tube feedings were stopped on 9/6 and patient was started on D5W for both mild hypernatremia and maintain blood sugar levels. Spoke to in-house factory maintenance manager and recommended to hold tube feedings during transportation but okay to resume upon arrival to destination. ----- Note reviewed and agree with care plan as documented. Please refer to the note below for further details. Plan discussed with attending physician Dr. Imani Man MD PGY-2 Internal Medicine Time Spent with Patient Time attestation: Total time spent providing and/or coordinating discharge services: Time spent: Greater than 30 minutes Exam Vital Signs Temp Pulse Resp BP Pulse Ox O2 Del Method O2 Flow Rate 97.1 F 108 H 16 148/87 H 100 Mechanical Ventilation 30 05/17/25 08:00 05/17/25 08:00 05/17/25 08:00 05/17/25 08:00 05/17/25 08:00 05/17/25 08:00 05/15/25 15:48 FiO2 30 05/17/25 08:00 Narrative Exam General: Obese, chronically ill-appearing man. Tracheostomy on mechanical ventilation. Not responsive to audible or visual stimulus. Neurologic: Unresponsive, unable to move any extremities. Eyes were closed, did not open to voice. HEENT: Normocephalic, atraumatic, mucous membranes moist. Heart: Tachycardic, regular rhythm, no murmurs, gallops, or rubs auscultated. Lungs: Clear to auscultation bilaterally with no wheezing or crackles. Abdomen: Obese, mild distention, normal bowel sounds. MSK/Extremities: 1+ pitting edema bilaterally lower extremities upto the knees. Bilateral upper exteremities also 1+ edema. Equal peripheral pulses. Bilateral lower extremity nails turned black. Discharge Plan Plan Patient Disposition: Xfer Skilled Nsg Fac (SNF) Care Plan Goals: Discharge instructions: Follow up with your PCP within one week from dishcharge Use medications as prescribed Continue wound care as per physician general internal medicine recommendations Follow up with the gastro-enterologist regarding your PEG tube replacement In case of worsening of your symptoms please return to the ED as soon as possible Prescriptions/Referrals Prescriptions/Med Rec: New amoxicillin-pot clavulanate 875-125 mg tablet 1 tab PO BID 2 Days Qty: 4 0RF insulin glargine U-300 conc 300 unit/mL (3 mL) insulin pen 30 unit subcut QDAY 7 Days Qty: 6 0RF apixaban 5 mg tablet 10 mg PO BID 6 Days Qty: 24 0RF Rx Instructions: Continue until 05/16 and then 5 mg BID thereafter apixaban 5 mg tablet 5 mg PO BID 30 Days Qty: 60 0RF Rx Instructions: To be started for DVT treatment on 05/17 Continued cetirizine 10 mg Tablet 10 mg feeding tube QDAY multivitamin with minerals Liquid 15 ml feeding tube QDAY melatonin 3 mg Tablet 5 mg feeding tube HS ascorbic acid (vitamin C) 500 mg Tablet 500 mg feeding tube BID Fleet Enema 19-7 gram/118 mL Enema 118 ml [place] PRN PRN (Reason: Constipation) aspirin 81 mg Tablet,Chewable 81 mg feeding tube QDAY ezetimibe 10 mg Tablet 10 mg feeding tube QPM simethicone 80 mg Tablet,Chewable 80 mg feeding tube BID lactulose 10 gram/15 mL Solution 20 g PO QDAY bisacodyl 10 mg Suppository 10 mg [place] EVERYOTHERDAY PRN (Reason: bowel ) gabapentin 300 mg Capsule 600 mg PO BID amlodipine 5 mg Tablet 10 mg feeding tube QDAY Changed ferrous sulfate 220 mg (44 mg iron)/5 mL Solution 220 mg PO Q OTHER DAY 21 Days Qty: 55 0RF Discontinued clopidogrel 75 mg Tablet 75 mg feeding tube QDAY fluticasone propionate 50 mcg/actuation [place],Suspension 1 spray INTRANASAL QDAY glipizide 5 mg Tablet 5 mg feeding tube QDAY furosemide 20 mg Tablet 20 mg PO QDAY ketotifen fumarate 0.025 % (0.035 %) Drops 1 drp OPHTHALMIC (EYE) BID Rx Instructions: administer at least 8 hours apart sennosides [senna] 8.8 mg/5 mL Syrup 5 ml PO BID sodium bicarbonate 650 mg Tablet 650 mg PO QDAY insulin glargine 100 unit/mL Cartridge 25 unit SUBCUT QPM Lokelma 5 gram Powder In Packet 5 g PO Q OTHER DAY meropenem 1 gram recon soln 1 g IV QDAY MDD 1 gram 60 Days Qty: 25 2RF Referrals: Alexa Heredia MD [Primary Care Provider] Patient/Caregiver Discharge Instructions Education Materials: Understanding Post Sepsis Syndrome, Urinary Tract Infections in Men, Sepsis, Acute Kidney Failure Dc Print Language: Greek Stand Alone Forms: Maria Isabel Brunson Info., Patient Portal Info Letter Quality Discharge Quality Measures none (Contraindicated secondary to hematuria and GI bleed)
[2025-05-17] MEDS: POTASSIUM CHL 10 mEq IVPB 100 ML 100 MEQ IV (10:00)
[2025-05-17] MEDS: Magnesium Sulfate 2 GM Ivpb 2 GM/50 ML BAG IV (10:00)
[2025-05-17] MEDS: DEXTROSE 5%-WATER 1,000 ML 80 ML IV (10:01)
[2025-05-17] MEDS: ALBUMIN HUMAN 25% IVPB 25 GM/100 ML BTL IV (10:05)
--- NOTE | 2025-05-17 10:13 | PC.SS ---
Update: [employer] BUSINESS MANAGER informed by transfer nurse that patient has been accepted by [facility] Transport time pending.
== END 2025-05-17 11:54 | disposition intermediate care facility (04) | DRG 871 ==
LOC: SERX 04-27 01:15 → SERHOLD 04-27 02:37 → S2SX 04-27 07:53 → S2NX 05-02 03:23
PROVIDERS: Internal Medicine; Internal Medicine Infectious Disease; Radiology Diagnostic Radiology; Specialist; Student in an Organized Health Care Education/Training Program; Admitting Provider Student in an Organized Health Care Education/Training Program; Emergency Provider Emergency Medicine; PCP Hospitalist; Visit Provider Internal Medicine
PROC: (CPT 43239; principal; 2025-05-12 16:30)
DX: A41.02 Sepsis due to Methicillin resistant Staphylococcus aureus (principal); J18.9 Pneumonia, unspecified organism; R65.21 Severe sepsis with septic shock; J69.0 Pneumonitis due to inhalation of food and vomit; K22.11 Ulcer of esophagus with bleeding; N39.0 Urinary tract infection, site not specified; E87.1 Hypo-osmolality and hyponatremia; G93.49 Other encephalopathy; N17.9 Acute kidney failure, unspecified; E46 Unspecified protein-calorie malnutrition; E87.0 Hyperosmolality and hypernatremia; I13.0 Hypertensive heart and chronic kidney disease with heart failure and stage 1 through stage 4 chronic kidney disease, or unspecified chronic kidney disease; I82.413 Acute embolism and thrombosis of femoral vein, bilateral; K56.609 Unspecified intestinal obstruction, unspecified as to partial versus complete obstruction; K56.7 Ileus, unspecified; K94.23 Gastrostomy malfunction; Z99.11 Dependence on respirator [ventilator] status; D62 Acute posthemorrhagic anemia; E87.20 Acidosis, unspecified; I85.00 Esophageal varices without bleeding; J96.11 Chronic respiratory failure with hypoxia; E11.65 Type 2 diabetes mellitus with hyperglycemia; N40.0 Benign prostatic hyperplasia without lower urinary tract symptoms; E78.5 Hyperlipidemia, unspecified; Y95 Nosocomial condition; R19.7 Diarrhea, unspecified; Z79.4 Long term (current) use of insulin; D50.9 Iron deficiency anemia, unspecified; R79.89 Other specified abnormal findings of blood chemistry; L89.309 Pressure ulcer of unspecified buttock, unspecified stage; L89.629 Pressure ulcer of left heel, unspecified stage; L89.619 Pressure ulcer of right heel, unspecified stage; D63.1 Anemia in chronic kidney disease; E11.22 Type 2 diabetes mellitus with diabetic chronic kidney disease; E78.00 Pure hypercholesterolemia, unspecified; E83.42 Hypomagnesemia; E88.09 Other disorders of plasma-protein metabolism, not elsewhere classified; F01.50 Vascular dementia, unspecified severity, without behavioral disturbance, psychotic disturbance, mood disturbance, and anxiety; I95.89 Other hypotension; J45.909 Unspecified asthma, uncomplicated; N18.9 Chronic kidney disease, unspecified; T83.021A Displacement of indwelling urethral catheter, initial encounter; Y84.6 Urinary catheterization as the cause of abnormal reaction of the patient, or of later complication, without mention of misadventure at the time of the procedure; Z74.01 Bed confinement status; Z79.01 Long term (current) use of anticoagulants; Z79.82 Long term (current) use of aspirin; Z79.84 Long term (current) use of oral hypoglycemic drugs; Z79.899 Other long term (current) drug therapy; S70.10XA Contusion of unspecified thigh, initial encounter; Z86.73 Personal history of transient ischemic attack (TIA), and cerebral infarction without residual deficits; Z87.01 Personal history of pneumonia (recurrent); Z96.659 Presence of unspecified artificial knee joint; Z87.11 Personal history of peptic ulcer disease; R62.7 Adult failure to thrive; E86.0 Dehydration; I50.810 Right heart failure, unspecified; K29.70 Gastritis, unspecified, without bleeding; I27.29 Other secondary pulmonary hypertension
CPT/HCPCS: 36415; 36600; 70450; 71045; 71260; 71275; 72147; 72149; 73562; 74018; 74176; 74177; 74250; 76705; 80048; 80053; 80069; 80074; 80202; 81001; 82248; 82436; 82570; 82607; 82728; 82746; 82803; 83036; 83540; 83550; 83605; 83615; 83735; 83880; 84100; 84132; 84133; 84145; 84156; 84295; 84300; 84443; 84484; 85014; 85018; 85025; 85046; 85379; 85384; 85610; 85652; 85730; 86140; 86703; 86706; 86850; 86900; 86901; 86923; 87040; 87077; 87081; 87086; 87186; 87205; 87400; 87493; 87811; 93005; 93306; 93970; 94002; 94003; 99285; A4649; A9577; C1769; C1880; C1894; J0131; J0692; J1171; J1642; J1643; J1644; J1650; J1815; J1885; J1938; J2250; J2270; J2371; J2470; J2543; J2765; J3010; J3373; J3374; J3375; J3475; J3480; J3490; J7030; J7050; J7070; J7120; J7121; J7999; P9016; P9047; Q5105; Q5106; Q9958; Q9963; Q9967; A9270

== ENCOUNTER 2025-05-23 15:52 | Inpatient (IN) | payer OTHER, MEDICAID, SELFPAY ==
[2025-05-23] VITALS (12 sets, daily range): BP systolic 67–137; BP diastolic 52–75; PULSE 90–110; RESP 14–32; TEMP 35.6–36.2; O2SAT 97–100; BMI 37.1
--- NOTE | 2025-05-23 16:21 | EKG_ITS ---
[facility] Test Date: 2025-05-23 Pat Name: KIMI NI Department: Room: - Gender: Male [employer] Worker: : 1945 Requested By: Nohemy Doran Order Number: [id number] Reading MD: Nohemy Doran Measurements Intervals [place] Rate: 106 P: 46 OK: 179 QRS: 9 QRSD: 84 T: 62 QT: 337 QTc: 449 Interpretive Statements SINUS TACHYCARDIA LOW QRS VOLTAGE IN PRECORDIAL LEADS [QRS DEFLECTION < 1.0 mV IN CHEST LEADS] NONSPECIFIC T-WAVE ABNORMALITY ABNORMAL RHYTHM ECG Compared to ECG 05/10/2025 16:02:54 T-wave abnormality now present /store/S0/[id number].pdf
--- NOTE | 2025-05-23 16:21 | PD.EDADULT ---
ED General RME/HPI General Chief complaint: General Adult/Misc Complain Stated complaint: HYPOTENSION Time Seen by Provider: 05/23/25 15:55 Arrival date/time: 05/23/25 15:52 RME / HPI RME / HPI narrative: 80 year old male with history of CVA, chronic hypoxic respiratory failure s/p trach, hypertension, diabetes, hyperlipidemia, sacral ulcers, vertebral osteomyelitis, s/p PEG tube, DVT brought in by [facility] the [facility] for evaluation of hypotension, cyanosis, and decreased responsiveness today. Per medics, [place] staff reported the patient at baseline is able to communicate by blinking once for no and twice for yes. Today he was not responding to questions. Additionally reported he was cyanotic and had two low blood pressure readings, 84/76 and 78/58. Medics state on their arrival, SBP ranged 120-130s and answering questions by blinking. In the ED patient was not answering questions. No further history obtainable. Related Data Home Medications ?Medication ?Instructions ?Recorded ?Confirmed ascorbic acid (vitamin C) 500 mg 500 mg feeding tube BID 01/05/22 04/27/25 tablet aspirin 81 mg chewable tablet 81 mg feeding tube QDAY 01/05/22 04/27/25 cetirizine 10 mg tablet 10 mg feeding tube QDAY 01/05/22 04/27/25 ezetimibe 10 mg tablet 10 mg feeding tube QPM 01/05/22 04/27/25 melatonin 3 mg tablet 5 mg feeding tube HS 01/05/22 04/27/25 multivitamin with minerals 15 ml feeding tube QDAY 01/05/22 04/27/25 sodium phosphates 19 gram-7 118 ml CO PRN PRN Constipation 01/05/22 04/27/25 gram/118 mL enema (Fleet Enema) lactulose 10 gram/15 mL oral 20 g PO QDAY 08/14/22 04/27/25 solution simethicone 80 mg chewable tablet 80 mg feeding tube BID 08/14/22 04/27/25 bisacodyl 10 mg rectal suppository 10 mg CO EVERYOTHERDAY PRN bowel 11/27/22 04/27/25 gabapentin 300 mg capsule 600 mg PO BID 11/27/22 04/27/25 amlodipine 5 mg tablet 10 mg feeding tube QDAY 01/16/23 04/27/25 Previous Rx's ?Medication ?Instructions ?Recorded ferrous sulfate 220 mg (44 mg 220 mg (5 mL) PO Q OTHER DAY 3 05/06/25 iron)/5 mL oral solution weeks #55 mL apixaban 5 mg tablet 5 mg PO BID 1 month #60 tabs 05/10/25 Allergies Allergy/AdvReac Type Severity Reaction Status Date / Time adhesive tape Allergy Rash Verified 05/16/25 18:05 NYLA Inhibitors AdvReac Severe Upper Verified 04/20/24 14:37 Airway Edema ARB-Angiotensin Receptor AdvReac Severe Upper Verified 04/20/24 14:37 Antagonist Airway Edema Review of Systems Review of Systems ROS Unobtainable: unobtainable due to mental status Past Medical History Past Medical History NEUROLOGIC: Positive Neurological Disorders and Cerebrovascular Accident CARDIAC: Positive Cardiac Disorders (HTN), Hypercholesterolemia, Edema and Hypertension RESPIRATORY: Positive Asthma (trach on vent/ PNA) and Pneumonia GENITOURINARY: Positive Genitourinary Disorders, Renal Disease, Dialysis and Benign Prostatic Hyperplasia MUSCULOSKELETAL: Positive Musculoskeletal Disorders, Arthritis and Degenerative Joint Disease ENDOCRINE: Positive Endocrine Disorders and Diabetes Mellitus Type 2 OTHER HISTORY: Positive Hospitalization, Falls, Blood Transfusions and MRSA Surgical History SURGICAL: Positive Abdominal Surgery, Tracheostomy, Gastrostomy and Joint Replacement Social History SMOKING STATUS: Unknown if ever smoked SUBSTANCE USE: does not use and unknown ED Exam Narrative Physical exam: GENERAL APPEARANCE: Awake, does not blink to questions, immobile HEENT: Normocephalic, atraumatic; EOMI; mucous membranes pink, moist; oropharynx clear NECK: Supple, trach in place LUNGS: CTABL; no wheezes, no rales, no rhonchi HEART: Regular rate, regular rhythm; normal S1, S2; no murmurs ABDOMEN: mildly distended; normal BS; soft, no tenderness, no guarding, no rebound; no masses, no organomegaly, no hernia BACK: no CVA tenderness EXTREMITIES: edema to upper and lower extremities NEUROLOGIC: Awake, does not blink to questions, immobile SKIN: warm, dry, normal color; no rashes Course Quality Measures Current suspected stage: sepsis Possible source: pulmonary Blood cultures ordered: completed in ED Antibiotic ordered: Yes Pertinent labs: 05/23/25 16:36 Lactic Acid 2.0 mMol/L (0.4-2.0) Procalcitonin 7.33 H ng/ml (0.0-0.49) sepsis Orders Category Date Time Status [employer] NOW Care 05/23/25 16:21 Active EKG (ED ONLY) *Do not use* NOW Care 05/23/25 16:21 Completed EKG (ED Only) Stat Exams 05/23/25 16:21 Draft XR chest 1V portable Stat Exams 05/23/25 16:21 Completed B-Type Natriuretic Peptide Stat Lab 05/23/25 16:36 Completed Blood Culture (Lab) Stat Lab 05/23/25 16:36 Received CBC Stat Lab 05/23/25 16:36 Completed Comprehensive Metabolic Panel Stat Lab 05/23/25 16:36 Completed Lactate (Lactic Acid) Stat Lab 05/23/25 16:36 Completed Magnesium Stat Lab 05/23/25 16:36 Completed Partial Thromboplastin Time Stat Lab 05/23/25 16:36 Completed Procalcitonin Stat Lab 05/23/25 16:36 Completed Prothrombin Time with INR Stat Lab 05/23/25 16:36 Completed Troponin I Stat Lab 05/23/25 16:36 Completed Urinalysis Stat Lab 05/23/25 16:20 Completed Urine Culture Stat Lab 05/23/25 16:20 Received Levofloxacin/D5w 500 mg Ivpb [Levaquin Ivpb] Med 05/23/25 17:41 Discontinued 500 mg in 100 ml IV X1 Piper/Tazo Inj [Zosyn Inj] 4.5 gm Med 05/23/25 21:07 Active Sodium Chloride 0.9% (Pop) [NS 0.9% mini bag] 100 ml IV X1 Sodium Chloride 0.9% 1000 ml [Ns] 1,000 ml Med 05/23/25 17:41 Discontinued IV 999 mls/hr Vancomycin Pharmacy to Dose Med 05/24/25 09:00 Ordered 1 each IV QDAY Mechanical [Volume Ventilator] Stat RT 05/23/25 Active Vital Signs Vital signs: Vital Signs Temperature 96.3 F L 05/23/25 16:05 Pulse Rate 110 H 05/23/25 16:05 Respiratory Rate 28 H 05/23/25 16:05 Blood Pressure 101/64 05/23/25 16:05 Pulse Oximetry (%) 100 05/23/25 16:05 Oxygen Delivery Method Mechanical Ventilation 05/23/25 16:05 Pulse ox is 100% on mechanical ventilator which is adequate. Discharge Plan Prescriptions/Referrals Prescriptions/Med Rec: No Action cetirizine 10 mg Tablet 10 mg feeding tube QDAY multivitamin with minerals Liquid 15 ml feeding tube QDAY melatonin 3 mg Tablet 5 mg feeding tube HS ascorbic acid (vitamin C) 500 mg Tablet 500 mg feeding tube BID Fleet Enema 19-7 gram/118 mL Enema 118 ml [place] PRN PRN (Reason: Constipation) aspirin 81 mg Tablet,Chewable 81 mg feeding tube QDAY ezetimibe 10 mg Tablet 10 mg feeding tube QPM simethicone 80 mg Tablet,Chewable 80 mg feeding tube BID lactulose 10 gram/15 mL Solution 20 g PO QDAY ferrous sulfate 220 mg (44 mg iron)/5 mL Solution 220 mg PO Q OTHER DAY 21 Days Qty: 55 0RF apixaban 5 mg tablet 5 mg PO BID 30 Days Qty: 60 0RF Rx Instructions: To be started for DVT treatment on 05/17 bisacodyl 10 mg Suppository 10 mg CO EVERYOTHERDAY PRN (Reason: bowel ) gabapentin 300 mg Capsule 600 mg PO BID amlodipine 5 mg Tablet 10 mg feeding tube QDAY Referrals: No Primary/Family,Physician [Primary Care Provider] - In 1 week Patient/Caregiver Discharge Instructions Print Language: Mexican MDM Narrative Sign Out note: 1800: Signed out to Dr. Ochoa pending work-up and final disposition. Clinical Information Provided by: EMS Medical Records reviewed [facility], EMS and shelter Medical Records additional comments: I reviewed admission from 04/26/2025 through 05/17/2025 where the patient was transferred to the [facility] in [place], [place] for another attempt at placement of IVC filter vs thrombectomy. Meds/Rx considered, not ordered None Labs/Rad/Tests considered, not ordered None Chronic Illness/Social Conditions which may negatively complicate care or outcome(s)-explain: CVA/aphasic and shelter/debilitated EKG Interpretation EKG #1: EKG Interpretation: EKG @ 1652 sinus tachycardia, rate 106, no STEMI. Imaging Imaging Interpretation(s): Ordering Physician: Nohemy Orantes MD Date of Service: 05/23/25 Procedure(s): XR chest 1V portable Accession Number(s): [id number] cc: Leland Chung MD; NO PRIMARY/FAMILY,PHYSICIAN; Nohemy Orantes MD~ Examination: AP chest single view Technique one AP portable upright chest single view Date and time: May 23, 2025, 1635 hrs., Comparison May 12, 2025 Indications: Chest pain shortness of breath today. Findings: Diffuse left lung opacity consistent with pneumonia Mild prominence left ventricle with moderate vascular congestion Tracheostomy tube tip 8.3 cm above monica Impression: Diffuse left lung pneumonia Dictated By: Leland Chugn MD Signed By: <Electronically signed by Leland Chung MD in OV> 05/23/25 1729 Medication Administration(s) Medication Administration History Piperacillin Sod/Tazobactam (Sod 4.5 gm/ Sodium Chloride) 100 mls @ 200 mls/hr IV X1 ONE; Protocol Stop: 05/23/25 21:36 Pharmacy Consult (Vancomycin Pharmacy To Dose 1 Each Each) 1 each IV QDAY IMANI Stop: 06/23/25 08:59 Discontinued Medications Levofloxacin/Dextrose (Levaquin Ivpb) 500 mg in 100 mls @ 100 mls/hr IV X1 ONE Stop: 05/23/25 18:40 Last Infusion: 05/23/25 20:07 Dose: Infused Documented By: Admin: 05/23/25 18:46 Dose: 100 mls/hr Documented By: ED Sodium Chloride (Ns) 1,000 mls @ 999 mls/hr IV .Q1H1M ONE Stop: 05/23/25 18:41 Last Infusion: 05/23/25 19:48 Dose: Infused Documented By: GINASGeovanny Admin: 05/23/25 18:47 Dose: 999 mls/hr Documented By: ED See above
[2025-05-23 16:44] LABS: Collection Type, Urine Clean Catch
[2025-05-23 16:44] LABS: Lactate (Lactic Acid) 2.0 mMol/L (0.4-2.0)
--- NOTE | 2025-05-23 16:45 | PC.LAC ---
Pt. arrives from [facility] at the [place], pt. being bagged via trach by supervising producer Alfonzo, pt. has bilateral heel boot protectors on, feeding tube to left upper abdominal quadrant is off, pt. lower abdomen skin in fold dry and flaking, pt. has a german draining dark yellow urine and secured to pt.'s right leg. Pt. will close his eyes when I try to see his pupils otherwise no response from pt.
[2025-05-23 16:47] LABS: Basophils # (Auto) 0.1 Thou/mm3 (0.0-0.2); Basophils % (Auto) 1 % (0-2.5); Eosinophils # (Auto) 0.9 Thou/mm3 (0.0-0.5); Eosinophils % (Auto) 9 % (0-10); Hematocrit 29.1 % (41.0-53.0); Hemoglobin 8.9 g/dL (13.5-16.0); Immature Granulocytes Auto 0.06 Thou/mm3 (0.00-0.00); Lymphocytes # (Auto) 2.3 Thou/mm3 (1.0-4.8); Lymphocytes % (Auto) 24 % (10-50); Mean Corpuscular HGB Conc 30.6 g/dl (31.0-37.0); Mean Corpuscular Hemoglobin 25.9 pg (25.0-35.0); Mean Corpuscular Volume 85 fL (80-100); Monocytes # (Auto) 0.8 Thou/mm3 (0.0-0.8); Monocytes % (Auto) 9 % (0-12); Neutrophils # (Auto) 5.4 Thou/mm3 (1.8-7.7); Neutrophils % (Auto) 57 % (37-80); Nucleated Red Blood Cell # 0.00 Thou/mm3 (0.00-0.00); Nucleated Red Blood Cell % 0 /100 WBC (0); Platelet Count 454 Thou/mm3 (140-440); RDW Standard Deviation 64.4 fL (35.1-43.9); Red Blood Count 3.44 Miln/mm3 (4.50-5.90); White Blood Count 9.5 Thou/mm3 (3.8-10.6)
[2025-05-23 17:04] LABS: B-Type Natriuretic Peptide < 20 pg/mL (0-100); INR 1.1 (0.9-1.3); Partial Thromboplastin Time 28.9 Seconds (22.0-36.0); Prothrombin Time 12.2 Seconds (9.0-12.2)
--- NOTE | 2025-05-23 17:05 | PC.NURSE ---
Pt.'s granddaughter Silvina here to see pt., Sunshine states pt. just arrived at [facility] today coming from [place] [facility] in [place], [place]shine states pt. was there for a blood clot to right leg, per Sunshine pt. was sent to [place] from [facility] to have a filter placed in right lower leg for blood clot, per Sunshine she was told at [place] it wasn't needed. Per Sunshine she was told at [facility] that pt. had a blood clot in his neck and also one in his right lower leg. Sunshine was told at [place] that pt. only has 1 blood clot in right lower leg and per Sunshine per [place] it can be managed by medication. Pt. went [place] in [place] to [facility] and upon his arrival pt.'s BP was low. Sunshine states that pt.'s BP is always low.
[2025-05-23 17:09] LABS: Bilirubin,Urine Negative (Negative); Blood,Urine 3+ (Negative); Color,Urine Yellow (Lt Yel-Yel); Glucose, Urine Negative (Negative); Ketones,Urine Negative (Negative); Leukocyte Esterase,Urine Positive (Negative); Nitrite,Urine Negative (Negative); PH,Urine 7.5 (5.0-7.0); Protein,Urine Trace (Neg - Trace); RBC,Urine 466 /hpf (0-3); Specific Gravity,Urine 1.013 (1.001-1.035); Squamous Epithelial Cell,Urine < 1 /hpf (0-5); Urobilinogen,Urine Negative mg/dL (0.0-1.0); WBC,Urine 89 /hpf (0-5)
[2025-05-23 17:13] LABS: Alanine Aminotransferase 15 U/L (10-49); Albumin, Serum 2.8 gm/dL (3.4-4.8); Albumin/Globulin Ratio 0.6 (1.2-2.2); Alkaline Phosphatase 131 U/L (46-116); Anion Gap 8 (7-16); Aspartate Amino Transferase 31 U/L (0-34); BUN/Creatinine Ratio 19 Ratio (12-20); Bilirubin,Total 0.3 mg/dL (0.3-1.2); Blood Urea Nitrogen 13 mg/dL (9-23); Calcium 9.2 mg/dL (8.3-10.6); Calcium (Corrected) 10.2 mg/dL (8.5-10.1); Carbon Dioxide 28.4 mMol/L (20.0-31.0); Chloride 100 mMol/L (98-107); Creatinine (Component) 0.7 mg/dL (0.6-1.3); Estimated Creatinine Clearance 118.4 mL/min (>60); Globulin 4.9 gm/dL (2.3-3.5); Glucose 141 mg/dL (74-106); Magnesium 1.7 mg/dL (1.6-2.6); Osmolality,Calculated 274 (275-295); Potassium 4.5 mMol/L (3.4-5.1); Procalcitonin 7.33 ng/ml (0.0-0.49); Sodium 136 mMol/L (136-145); Total Protein 7.7 gm/dL (5.7-8.2); Troponin I < 0.020 ng/mL (0.0-0.045); eGFR > 60 See Note
[2025-05-23 17:22] LABS: Clarity,Urine Hazy (Clear/Hazy)
[2025-05-23] MEDS: LEVOFLOXACIN/D5W 500 MG IVPB 500 MG/100 ML BAG 100 MG IV (18:46)
--- NOTE | 2025-05-23 18:46 | PD.EDADDENDU ---
Emergency Room Addendum <Maribell Haley - Last Filed: 05/23/25 21:12> Addendum Narrative: 1800: Care assumed from Dr. Orantes (emergency physician). Past medical, surgical, social and family history reviewed. Vitals and home medications reviewed. Results and treatment plan discussed. I will assume the care of the patient at this time and will follow the patient, pending full workup and final disposition. The following addendum documentation note is intended to reflect any pending information, findings, or radiology results not included in the patient?s initial chart by the previous shift scribe. RADIOLOGY Chest X-Ray: Findings: Diffuse left lung opacity consistent with pneumonia Mild prominence left ventricle with moderate vascular congestion Tracheostomy tube tip 8.3 cm above monica Impression: Diffuse left lung pneumonia 2108: Hospitalist made aware of the patient?s HPI, PMHx, lab and/or radiology results. Treatment plan was discussed. Will admit for further evaluation and management. Accepts patient for admission. <Cedrick Ochoa DO - Last Filed: 05/23/25 21:18> Addendum Narrative: 1800: Care assumed from Dr. Orantes (emergency physician). Past medical, surgical, social and family history reviewed. Vitals and home medications reviewed. Results and treatment plan discussed. I will assume the care of the patient at this time and will follow the patient, pending full workup and final disposition. The following addendum documentation note is intended to reflect any pending information, findings, or radiology results not included in the patient?s initial chart by the previous shift scribe. RADIOLOGY Chest X-Ray: Findings: Diffuse left lung opacity consistent with pneumonia Mild prominence left ventricle with moderate vascular congestion Tracheostomy tube tip 8.3 cm above monica Impression: Diffuse left lung pneumonia 2108: Hospitalist made aware of the patient?s HPI, PMHx, lab and/or radiology results. Treatment plan was discussed. Will admit for further evaluation and management. Accepts patient for admission. Case was signed out to me by Dr. Ortega awaiting repeat blood pressure readings. I reviewed the case. 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 Today he has left-sided pneumonia. He is hypotensive with systolic blood pressure in the 90s. He is only received 1 L of IV normal saline. He will receive another 2 L of IV normal saline. He is only received Levaquin 500 mg IV I will expand that coverage to Zosyn 4.5 g IV and vancomycin IV pharmacy to dose. I believe this patient to be in septic shock. We will see if he responds to the appropriate amount of fluid. Lactic acid level is not elevated. Procalcitonin level is elevated. He is nonverbal and feeds by G-tube. As stated he is chronically vent dependent. I discussed this case with the ICU resident and the patient will require admission to the hospital for further treatment and evaluation for his septic shock secondary to left-sided pneumonia and his chronically vent dependent state. Reportedly according to nurse at bedside, family made their wishes known that the patient is in fact a full code. Critical care time spent in this patient excluding other billable procedures was 35 minutes.
[2025-05-23] MEDS: SODIUM CHLORIDE 0.9% 1000 ML 1,000 ML 999 ML IV ×3 (18:47→21:35)
[2025-05-23] MEDS: PIPER/TAZO INJ 4.5 GM in SODIUM CHLORIDE 0.9% (POP) 100 ML IV (21:21)
[2025-05-23] MEDS: VANCOMYCIN/NS 1 GM IVPB 200 ML IV (22:26)
--- NOTE | 2025-05-23 22:42 | ESHP_ITS ---
Documentation for date of: 05/23/25 HPI History of Present Illness Chief complaint: Hypothermia and hypotension History of present illness: Mr. Sanchez is a 80 year old male with history of CVA, chronic hypoxic respiratory failure s/p trach, hypertension, diabetes, decubitus ulcers, vertebral osteomyelitis, s/p PEG tube, DVT brought in by [facility] by the [facility] on 05/23/2025 for evaluation of hypotension, cyanosis, and decreased responsiveness today. Per medics, [place] staff reported the patient at baseline is able to communicate by blinking once for no and twice for yes. However, upon evaluation today, patient was not responding to questions. Additionally reported he was cyanotic and had two low blood pressure readings of 84/76 and 78/58. Medics state on their arrival, SBP ranged 120-130s and answering questions by blinking. In the ED patient was not answering questions. No further history obtainable. Patient was newly discharge on 05/17/2025 for septic shock secondary to Pneumonia and UTI. Throughout the hospital course patient other problems were managed and her condition improved remarkably with progression of hospital course. However, for nonocclusive thrombus in right and left common femoral veins, unable to place IVC filter at [facility], Hence, patient was transferred to [facility] in [place] for another attempt of placement of IVC filter vs thrombectomy. ED Course: -Initial vitals were 137/55, pulse 110, RR 28, temp 96.3(hypothermia), saturating 100% on mechanical ventilation. -Labs significant for no leukocytosis, hemoglobin 8.9, hematocrit 29.1, platelet 454, ABG pH 7.35, CO2 50, bicarb 28, glucose 141, albumin 2.8, globulin 4.9, Pro-Tevin 7.33. UA positive pH 7.5, leukocyte esterase, 466 RBC, 89 WBC -Imaging included chest x-ray showed diffuse left lung pneumonia, moderate vascular production, tracheostomy tube tip 8.3 cm above monica. EKG sinus tachycardia rate 106, with nonspecific T wave abnormalities -In the ED, patient was hypothermic and hypotensinsive with MAP 59, pt wa given aggressive hydration with 3NS, bp still low, gave 15mg midrodrine. Patient also receive Zosyn 4.5mg for PNA -Patient was admitted for sepsis secondary to PNA and UTI evaluation and management . Review of Systems Review of systems otherwise negative except what is mentioned above. Past Medical History: As mentioned above Family History: Unobtainable Surgical History: Positive abdominal surgery, tracheostomy, gastrostomy and knee joint replacement Social History: He is , often comes to visit, others unobtainable Current Medications: Eliquis 5 mg twice daily, esomeprazole 40 mg twice daily, sucralfate 1 g TID Allergies: ACEi, ARBs inhibitor Exam Vital Signs Temp Pulse Resp BP Pulse Ox O2 Del Method FiO2 96.4 F L 104 H 20 89/58 L 100 Mechanical Ventilation 40 05/23/25 20:53 05/23/25 21:30 05/23/25 20:53 05/23/25 21:30 05/23/25 21:30 05/23/25 20:53 05/23/25 21:30 Narrative Exam General: s/p CVA/aphasi, non responsive. Skin: Warm, dry, intact. No rash or ecchymoses. Head: Normocephalic, atraumatic. Eye: Normal conjunctiva, PERRL. Throat: Tracheotomy in place. No obvious lesions in oropharynx. Cardiovascular: Regular rate and rhythm, no murmur, +S1/S2. Respiratory: Lungs are clear to auscultation, respirations unlabored, no crackles, no wheezing. Gastrointestinal: PEG Tube, midly distended. No guarding or rebound tenderness. Extremities:Sacral ulcer stage I, bilateral gluteal ulcer stage II,ulcer on lateral left leg, bilateral UE and LE edema Neuro: Awake, does not blink to questions, immobile Results: Labs 05/24/25 05:15 05/24/25 05:15 Labs: Short CBC 05/23/25 Range/Units 16:36 WBC 9.5 D (3.8-10.6) Thou/mm3 Hgb 8.9 L (13.5-16.0) g/dL Hct 29.1 L (41.0-53.0) % Plt Count 454 H D (140-440) Thou/mm3 BMP 05/23/25 16:36 Sodium 136 Potassium 4.5 Chloride 100 Carbon Dioxide 28.4 BUN 13 Creatinine 0.7 Glucose 141 H Calcium 9.2 Cardiac Enzymes 05/23/25 Range/Units 16:36 Troponin I < 0.020 (0.0-0.045) ng/mL Liver Function 05/23/25 Range/Units 16:36 Total Bilirubin 0.3 (0.3-1.2) mg/dL AST 31 (0-34) U/L ALT 15 (10-49) U/L Alkaline Phosphatase 131 H (46-116) U/L Albumin 2.8 L (3.4-4.8) gm/dL Urine 05/23/25 Range/Units 16:20 Urine Color Yellow (Lt Yel-Yel) Urine Clarity Hazy (Clear/Hazy) Urine pH 7.5 H (5.0-7.0) Ur Specific Larsen 1.013 (1.001-1.035) Urine Protein Trace (Neg - Trace) Urine Glucose (UA) Negative (Negative) Quality Measures Quality Measures sepsis Current suspected stage: ruled out Possible source: pulmonary Blood cultures ordered: completed in ED Antibiotic ordered: Yes Advance care planning discussed with:: other Medications Home Medications and Allergies Home Medications ?Medication ?Instructions ?Recorded ?Confirmed ?Type ascorbic acid (vitamin C) 500 mg 500 mg feeding tube B ID 01/05/22 05/25/25 History tablet aspirin 81 mg chewable tablet 81 mg feeding tube QDAY 01/05/22 05/25/25 History cetirizine 10 mg tablet 10 mg feeding tube QDAY 10/2805/25/25 History ezetimibe 10 mg tablet 10 mg feeding tube QPM 01/0505/25/25 History melatonin 3 mg tablet 5 mg feeding tube HS 2 05/25/25 History multivitamin with minerals 15 ml feeding tube QDAY 10/2805/25/25 History sodium phosphates 19 gram-7 118 ml OR PRN PRN Constipa tion 01/05/22 05/25/25 History gram/118 mL enema (Fleet Enema) lactulose 10 gram/15 mL oral 20 g feeding tube QDAY 05/25/25 History solution simethicone 80 mg chewable tablet 80 mg feeding tube B ID 08/14/22 05/25/25 History bisacodyl 10 mg rectal suppository 10 mg OR EVERYOTHER DAY PRN bowel 11/27/22 05/25/25 History gabapentin 300 mg capsule 600 mg feeding tube BID 11/0505/25/25 History amlodipine 5 mg tablet 10 mg feeding tube QDAY 01/0405/25/25 History atorvastatin 20 mg tablet 20 mg feeding tube QPM 05/2505/25/25 History sennosides 8.8 mg/5 mL oral syrup 5 ml feeding tube BI D 05/25/25 05/25/25 History (senna) Allergies Allergy/AdvReac Type Severity Reaction Status Date / Time adhesive tape Allergy Rash Verified 05/16/25 18:05 NYLA Inhibitors AdvReac Severe Upper Verified 04/20/24 14:37 Airway Edema ARB-Angiotensin Receptor AdvReac Severe Upper Verified 04/20/24 14:37 Antagonist Airway Edema Visit Medications Apixaban (Apixaban 2.5 Mg Tablet) 5 mg GT BID IMANI Stop: 06/13/25 22:44 Dextrose (Dextrose 50%-Water Inj 50 Ml Syringe) 25 ml IV Q15MIN PRN PRN Reason: BG 50-70 responsive npo pt Stop: 06/22/25 22:34 Dextrose (Dextrose 50%-Water Inj 50 Ml Syringe) 50 ml IV Q15MIN PRN PRN Reason: BG <50 OR BG <70 & pt unresponsive Stop: 06/22/25 22:34 Glucagon (Glucagon Inj 1 Mg Vial) 1 mg IM Q15MIN PRN PRN Reason: BG <70, and no IV access Vancomycin/Sodium Chloride (Vancomycin/Ns 1 Gm Ivpb) 200 mls @ 120 mls/hr IV Q100M IMANI Stop: 05/24/25 00:34 Last Admin: 05/23/25 22:26 Dose: 120 mls/hr Cefepime HCl 2 gm/ Sodium (Chloride) 50 mls @ 100 mls/hr IV Q12HR IMAIN Stop: 05/30/25 22:25 Cefepime HCl 2 gm/ Sodium (Chloride) 50 mls @ 100 mls/hr IV X1 ONE Stop: 05/23/25 23:14 Insulin Human Lispro (Insulin Lispro (Admelog) 1 Unit/0.01 Ml Unit) 0 unit SC [facility]; Protocol Stop: 06/23/25 07:29 Pantoprazole Sodium (Pantoprazole Inj 40 Mg Vial) 40 mg IVP BID [facility] Stop: 06/23/25 08:59 Pharmacy Consult (Vancomycin Pharmacy To Dose 1 Each Each) 1 each IV QDAY IMANI Stop: 06/23/25 08:59 Sucralfate (Sucralfate Susp 1 Gm/10 Ml Udc) 1 gm GT TID IMANI Stop: 06/23/25 05:59 Discontinued Medications Levofloxacin/Dextrose (Levaquin Ivpb) 500 mg in 100 mls @ 100 mls/hr IV X1 ONE Stop: 05/23/25 18:40 Last Infusion: 05/23/25 20:07 Dose: Infused Sodium Chloride (Ns) 1,000 mls @ 999 mls/hr IV .Q1H1M ONE Stop: 05/23/25 18:41 Last Infusion: 05/23/25 19:48 Dose: Infused Piperacillin Sod/Tazobactam (Sod 4.5 gm/ Sodium Chloride) 100 mls @ 200 mls/hr IV X1 ONE; Protocol Stop: 05/23/25 21:36 Last Admin: 05/23/25 21:21 Dose: 200 mls/hr Sodium Chloride (Ns) 1,000 mls @ 999 mls/hr IV .Q1H1M ONE Stop: 05/23/25 22:14 Last Admin: 05/23/25 21:34 Dose: 999 mls/hr Sodium Chloride (Ns) 1,000 mls @ 999 mls/hr IV .Q1H1M ONE Stop: 05/23/25 22:14 Last Admin: 05/23/25 21:35 Dose: 999 mls/hr Assessment & Plan Plan Mr. Sanchez is a 80 year old male with history of CVA, chronic hypoxic respiratory failure s/p trach, hypertension, diabetes, sacral ulcers, vertebral osteomyelitis, s/p PEG tube, DVT brought in by [facility] by the [facility] on 05/23/2025 for evaluation of hypotension, cyanosis, and decreased responsiveness today. Admitted for sepsis in setting of PNA and UTI evaluation and management. #Sepsis in setting of #Ventilator Associated PNA vs Hospital acquired PNA #Left lung Pneumonia #Hypotension, improving #S/p chronically trach (2021) Given given patient was hypotensive, hypothermic, tachycardic on presentation,meet the criteria for severe sepsis. SIRS 3/4 and qSofa score 3. Sources of infection likely from HAP vs CVAP pneumonia as the patient was recently hospitalized for pneumonia and his chronically on vent. In ED pt BP range form 81/53 (Map 62) with lowest of 67/52 (MAP 57). Given 3L NS and midodrine, vitals improved. Procal 7.33: indicating infectious processes PSI/PORT score: Class V, hospitalization recommended ChestX-ray: Diffuse left lung pneumonia, moderate vascular congestion. Tracheostomy tube tip 8.3 cm above monica - Started IV Vancomysin pharmacy to dose - Started IV Cefepime 2mg - Continue midodrine 5mg PRN - Blood cx, pending - Mechanical ventilator - Tracheostomy tube management #UTI, recurrent #Chronic german cath Patient has HX of pseudomonas UTI and MRSA bacteremia. On admission UA positive pH 7.5, leukocyte esterase, 466 RBC, 89 WBC. - German urinary cath change - Continue antibiotics mention above - UA repeat - Urine culture, pending #Bilateral lower extremity DVT Transfer to [facility] in [place] for IVC filter, pending placement. On home eliquis - resume home eliquis 5mg BID GT #HX Chronic normocytic anemia #Thrombocytosis On admission Hg 8.9, Hct 29.1, MCV85. No melena noted in todays BM. Elevated platelets of 454 -Continue to monitor H&H -Transfuse if Hg<7 #Multistage decubitus ulcer #Sacral ulcer stage I, improving #Gluteal ulcer stage II 0n examination sacral ulcer improved from last admission epidermis intact. Bilateral gluteal ulcers stage 2, left lateral leg ulcer. 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 Santa Schaeffer MD PGY-1, Internal Medicine Please note: this document was transcribed using voice recognition technology; minor inaccuracies may be present. Attending Provider Attestation/Addendum After examination of the patient and review of the clinical data I feel that this patient needs admission to the hospital for further treatment/evaluation. Plan of care discussed with patient and is in agreement. I Sofia Marquez MD, attest that I was physically present for herrera portions of evaluation, and examined patient, labs and imagings and plan of care were discussed with IM residents team, and I agree with the findings and plans documented above.
[2025-05-23] MEDS: CEFEPIME INJ 2 GM in SODIUM CHLORIDE 0.9% (Popper) 50 ML IV (22:55)
[2025-05-23] MEDS: APIXABAN 2.5 MG TABLET 5 MG GT (23:08)
[2025-05-23 23:15] LABS: Base Excess 2 (-3-3); HCO3 28 mEq/L (20-26); Inspired Oxygen, FIO2 40 %; O2 Saturation 99 % (91-98); PCO2 50 mmHg (32.0-48.0); PO2 124 mmHg (83-108); pH, Arterial 7.35 (7.35-7.45)
[2025-05-23 23:17] LABS: Allen Test Performed/OK; Puncture Site Left Radial
[2025-05-23] MEDS: MIDODRINE 5 MG TABLET 15 MG GT (23:36)
[2025-05-24] VITALS (13 sets, daily range): BP systolic 96–119; BP diastolic 59–72; PULSE 80–105; RESP 15–29; TEMP 35.8–36.4; O2SAT 99–100; BMI 36.6; BMI 36.5
[2025-05-24] MEDS: VANCOMYCIN/NS 1 GM IVPB 200 ML IV (00:45)
[2025-05-24] MEDS: SUCRALFATE SUSP 1 GM/10 ML UDC GT ×2 (05:48→13:58)
[2025-05-24 06:12] LABS: Basophils # (Auto) 0.0 Thou/mm3 (0.0-0.2); Basophils % (Auto) 1 % (0-2.5); Eosinophils # (Auto) 0.6 Thou/mm3 (0.0-0.5); Eosinophils % (Auto) 7 % (0-10); Hematocrit 27.2 % (41.0-53.0); Hemoglobin 8.6 g/dL (13.5-16.0); Immature Granulocytes Auto 0.05 Thou/mm3 (0.00-0.00); Lymphocytes # (Auto) 1.6 Thou/mm3 (1.0-4.8); Lymphocytes % (Auto) 21 % (10-50); Mean Corpuscular HGB Conc 31.6 g/dl (31.0-37.0); Mean Corpuscular Hemoglobin 27.0 pg (25.0-35.0); Mean Corpuscular Volume 86 fL (80-100); Monocytes # (Auto) 0.6 Thou/mm3 (0.0-0.8); Monocytes % (Auto) 8 % (0-12); Neutrophils # (Auto) 4.9 Thou/mm3 (1.8-7.7); Neutrophils % (Auto) 63 % (37-80); Nucleated Red Blood Cell # 0.00 Thou/mm3 (0.00-0.00); Nucleated Red Blood Cell % 0 /100 WBC (0); Platelet Count 435 Thou/mm3 (140-440); RDW Standard Deviation 65.0 fL (35.1-43.9); Red Blood Count 3.18 Miln/mm3 (4.50-5.90); White Blood Count 7.8 Thou/mm3 (3.8-10.6)
[2025-05-24 06:40] LABS: Anion Gap 9 (7-16); BUN/Creatinine Ratio 30 Ratio (12-20); Blood Urea Nitrogen 18 mg/dL (9-23); Calcium 8.6 mg/dL (8.3-10.6); Carbon Dioxide 26.8 mMol/L (20.0-31.0); Chloride 106 mMol/L (98-107); Creatinine (Component) 0.6 mg/dL (0.6-1.3); Estimated Creatinine Clearance 137.1 mL/min (>60); Glucose 131 mg/dL (74-106); Magnesium 1.6 mg/dL (1.6-2.6); Osmolality,Calculated 287 (275-295); Phosphorous 3.9 mg/dL (2.4-5.1); Potassium 4.3 mMol/L (3.4-5.1); Sodium 142 mMol/L (136-145); eGFR > 60 See Note
[2025-05-24] MEDS: Magnesium Sulfate 4 GM Ivpb 4 GM/50 ML BAG IV (08:48)
[2025-05-24] MEDS: CEFEPIME INJ 2 GM in SODIUM CHLORIDE 0.9% (Popper) 50 ML IV ×2 (08:48→20:47)
[2025-05-24] MEDS: APIXABAN 2.5 MG TABLET 5 MG GT ×2 (08:49→20:46)
--- NOTE | 2025-05-24 09:50 | ESPR_ITS ---
<Statement entered by Shayne Vigil MD - 05/24/25 18:34> I have personally seen and examined the patient, agree with residents assessment and plan Patient plan of care was discussed with the attending physician, Dr. Mary Kay Vigil, PGY2 Documentation for date of: 05/24/25 Subjective Subjective Interval history: Overnight events: No acute events overnight. Patient admitted overnight. Patient was seen and examined at bedside. AM vitals and labs reviewed. Patient does not appear to be in any acute distress at this time. Was found sleeping this morning. Did note respiratory rate 28 and temperature of 96.7 ?F this morning. Magnesium 1.6, procalcitonin 7.33, and chest x-ray shows left lung pneumonia. Sepsis ruled out given lack of endorgan damage. Sputum cultures ordered. Continue vancomycin and cefepime. Continue Eliquis 5 mg twice daily. Review of systems otherwise negative except for what is mentioned above. Exam Vital Signs Temp Pulse Resp BP Pulse Ox O2 Del Method FiO2 96.9 F 91 15 119/72 100 Mechanical Ventilation 40 05/24/25 08:00 05/24/25 08:00 05/24/25 08:00 05/24/25 08:00 05/24/25 08:00 05/24/25 08:00 05/24/25 08:00 Narrative Exam Physical Exam: General: Nonresponsive, no acute distress. Tracheostomy tube in place. On m echanical ventilator. Skin: Warm, dry, intact. Head: Normocephalic, atraumatic. Cardiovascular: Regular rate and rhythm, no murmur, +S1/S2. Respiratory: Lungs are clear to auscultation, respirations unlabored, no crackles, no wheezing. Gastrointestinal: Soft, nontender, mildly distended. No guarding or rebound tenderness. PEG tube in place. Extremities: No edema, no cyanosis, no clubbing. Objective Labs 05/25/25 04:54 05/25/25 04:54 Labs: Laboratory Results - last 24 hr 05/23/25 05/23/25 05/23/25 16:20 16:36 23:11 WBC 9.5 D RBC 3.44 L Hgb 8.9 L Hct 29.1 L MCV 85 MCH 25.9 MCHC 30.6 L RDW Std Deviation 64.4 H Plt Count 454 H D Neut % (Auto) 57 Lymph % (Auto) 24 [place] % (Auto) 9 Eos % (Auto) 9 Baso % (Auto) 1 Neut # (Auto) 5.4 Lymph # (Auto) 2.3 [place] # (Auto) 0.8 Eos # (Auto) 0.9 H Baso # (Auto) 0.1 Immature Gran # (Auto) 0.06 H Absolute Nucleated RBC 0.00 Immature Gran % 1 H Nucleated RBC % 0 PT 12.2 INR 1.1 APTT 28.9 Puncture Site Left Radial ABG pH 7.35 ABG pCO2 50 H ABG pO2 124 H ABG HCO3 28 H ABG O2 Saturation 99 H ABG Base Excess 2 FiO2 40 Sodium 136 Potassium 4.5 Chloride 100 Carbon Dioxide 28.4 Anion Gap 8 BUN 13 Creatinine 0.7 Estim Creat Clear Calc 118.4 eGFR > 60 BUN/Creatinine Ratio 19 Glucose 141 H Calculated Osmolality 274 L Lactic Acid 2.0 Calcium 9.2 Corrected Calcium 10.2 H Phosphorus Magnesium 1.7 Total Bilirubin 0.3 AST 31 ALT 15 Alkaline Phosphatase 131 H Troponin I < 0.020 B-Natriuretic Peptide < 20 Total Protein 7.7 Albumin 2.8 L Globulin 4.9 H Albumin/Globulin Ratio 0.6 L Procalcitonin 7.33 H Ur Collection Type Clean Catch Urine Color Yellow Urine Clarity Hazy Urine pH 7.5 H Ur Specific [place] 1.013 Urine Protein Trace Urine Glucose (UA) Negative Urine Ketones Negative Urine Blood 3+ A Urine Nitrite Negative Urine Bilirubin Negative Urine Urobilinogen (Auto) Negative Ur Leukocyte Esterase Positive Urine RBC 466 H Urine WBC 89 H Ur Squamous Epith Cells < 1 Urine Bacteria None 05/24/25 05:15 WBC 7.8 RBC 3.18 L Hgb 8.6 L Hct 27.2 L MCV 86 MCH 27.0 MCHC 31.6 RDW Std Deviation 65.0 H Plt Count 435 Neut % (Auto) 63 Lymph % (Auto) 21 [place] % (Auto) 8 Eos % (Auto) 7 Baso % (Auto) 1 Neut # (Auto) 4.9 Lymph # (Auto) 1.6 [place] # (Auto) 0.6 Eos # (Auto) 0.6 H Baso # (Auto) 0.0 Immature Gran # (Auto) 0.05 H Absolute Nucleated RBC 0.00 Immature Gran % 1 H Nucleated RBC % 0 PT INR APTT Puncture Site ABG pH ABG pCO2 ABG pO2 ABG HCO3 ABG O2 Saturation ABG Base Excess FiO2 Sodium 142 Potassium 4.3 Chloride 106 Carbon Dioxide 26.8 Anion Gap 9 BUN 18 Creatinine 0.6 Estim Creat Clear Calc 137.1 eGFR > 60 BUN/Creatinine Ratio 30 H Glucose 131 H Calculated Osmolality 287 Lactic Acid Calcium 8.6 Corrected Calcium Phosphorus 3.9 Magnesium 1.6 Total Bilirubin AST ALT Alkaline Phosphatase Troponin I B-Natriuretic Peptide Total Protein Albumin Globulin Albumin/Globulin Ratio Procalcitonin Ur Collection Type Urine Color Urine Clarity Urine pH Ur Specific [place] Urine Protein Urine Glucose (UA) Urine Ketones Urine Blood Urine Nitrite Urine Bilirubin Urine Urobilinogen (Auto) Ur Leukocyte Esterase Urine RBC Urine WBC Ur Squamous Epith Cells Urine Bacteria ABG Interpretation ABG results: 05/23/25 23:11 ABG pH 7.35 ABG pCO2 50 H ABG pO2 124 H ABG HCO3 28 H ABG O2 Saturation 99 H ABG Base Excess 2 Quality Measures Quality Measures sepsis Current suspected stage: ruled out Possible source: pulmonary Blood cultures ordered: completed in ED Antibiotic ordered: Yes Advance care planning discussed with:: patient and child Assessment & Plan Assessment Current Active Medications: Generic Name Dose Route Start Last Admin Trade Name Freq PRN Reason Stop Dose Admin Apixaban 5 mg 05/23/25 22:45 05/24/25 08:49 Apixaban 2.5 Mg Tablet GT 06/13/25 22:44 5 mg BID IMANI Administration Dextrose 25 ml 05/23/25 22:35 Dextrose 50%-Water Inj 50 Ml Syringe IV 06/22/25 22:34 Q15MIN PRN BG 50-70 responsive npo pt Dextrose 50 ml 05/23/25 22:35 Dextrose 50%-Water Inj 50 Ml Syringe IV 06/22/25 22:34 Q15MIN PRN BG <50 OR BG <70 & pt unresponsive Glucagon 1 mg 05/23/25 22:35 Glucagon Inj 1 Mg Vial IM Q15MIN PRN BG <70, and no IV access Cefepime HCl 2 gm/ Sodium 50 mls @ 100 mls/hr 05/24/25 09:00 05/24/25 08:48 Chloride IV 05/31/25 08:59 100 mls/hr Q12HR IMANI Administration Vancomycin HCl/Dextrose 300 mls @ 200 mls/hr 05/24/25 10:00 Vancomycin/D5w 1500 Mg Ivpb IV 05/31/25 09:59 Q12H IMANI Magnesium Sulfate 4 gm in 50 mls @ 12.5 mls/hr 05/24/25 07:50 05/24/25 08:48 Magnesium Sulfate Ivpb IV 05/24/25 11:49 12.5 mls/hr X1 ONE Administration Insulin Human Lispro 0 unit 05/24/25 06:30 05/24/25 06:46 Insulin Lispro (Admelog) 1 Unit/0.01 Ml Unit SC 06/23/25 06:29 Not Given Q6H [facility] Protocol Midodrine 5 mg 05/24/25 01:22 Midodrine 5 Mg Tablet PO 06/23/25 01:29 TID PRN MAP <70 Pantoprazole Sodium 40 mg 05/24/25 09:00 05/24/25 08:49 Pantoprazole Inj 40 Mg Vial IVP 06/23/25 08:59 40 mg BID IMANI Administration Pharmacy Consult 1 each 05/24/25 09:00 05/24/25 08:49 Vancomycin Pharmacy To Dose 1 Each Each IV 06/23/25 08:59 Not Given QDAY [facility] Sucralfate 1 gm 05/24/25 06:00 05/24/25 05:48 Sucralfate Susp 1 Gm/10 Ml Udc GT 06/23/25 05:59 1 gm TID IMANI Administration Plan This patient is a 80-year-old male with a past medical history of CVA, chronic hypoxic respiratory failure status post tracheostomy 2, HTN, T2DM, chronic sacral ulcers, vertebral osteomyelitis, status post PEG tube, chronic Abbott, multiple DVTs, and multiple recurrent admissions who presented to [facility] ED on 05/23 from [facility] for hypotension, cyanosis, and decreased responsiveness. Admitted for management of ventilator associated pneumonia. #Ventilator associated pneumonia, left lung #Sepsis ruled out #Status post tracheostomy tube in (2021) Patient was found to be hypotensive, hypothermic, and tachycardia on presentation to ED. Patient is noted to have very frequent and recurrent hospitalizations for ventilator associated pneumonia and/or hospital-acquired pneumonia. The patient is s/p tracheostomy with a tracheostomy tube and requires chronic ventilation. Sepsis ruled out given lack of endorgan damage. SIRS 3/4, qSOFA score 3 PSI/PORT score: Class V, hospitalization recommended Rx: 3 L NS and midodrine given in ED Diagnostic: Chest x-ray 05/23 shows diffuse left lung pneumonia Plan: Vancomycin, pharmacy to dose (05/23--) Cefepime 2 mg daily (05/23--) Midodrine 5 mg three times daily Blood cultures collected 05/23, preliminary no growth after 24 hours Sputum cultures collected 05/24, pending #UTI, recurrent #Chronic Abbott catheter Patient has extensive history of Pseudomonas UTI. Patient is unable to verbalize if he has any symptoms of UTI, however on admission UA was positive for leukocyte esterase, RBC 466, and WBC 89. 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 Patient was initially put on Eliquis for management of these DVTs, but patient had noted drop in hemoglobin and hematuria during previous admission. Attempted to place IVC filter for patient, but unsuccessful at this institution. Patient was transferred to [facility] in [place] for IVC filter, however physicians noted that the patient could be managed with pharmaceutical anticoagulation. Plan: Home Eliquis 5 mg twice daily #Normocytic anemia, chronic #Thrombocytosis, resolved Patient noted to have hemoglobin of 8.9 on admission. MCV 85. Patient has a long history of normocytic anemia. Platelets elevated at 454 on admission. Thrombocytosis is likely reactive to infection. Plan: Continue to monitor, transfuse if hemoglobin less than 7 per protocol #Multistage decubitus ulcer #Sacral ulcer stage I, improving #Gluteal ulcer stage II On examination during admission, sacral ulcer improved from last admission epidermis intact. Bilateral gluteal ulcers stage 2, left lateral leg ulcer. 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 #S/P CVA - At his normal baseline #S/P PEG Tube -Registered dietitian referral -Glucerna 1.2 goal rate 65 ml/h, if no IVF give 25 ml/h free water flushes, pro stat sugar free 30 ml twice daily with water flushes DVT Prophylaxis: Eliquis GI Prophylaxis: Protonix Bowel: N/A Diet: Glucerna 1.2 goal rate 65 ml/h, if no IVF give 25 ml/h free water flushes, pro stat sugar free 30 ml twice daily with water flushes Abbott: Yes Lines: Peripheral IV, tracheostomy tube, PEG tube Antibiotics: Cefepime (05/24--) & Vancomycin (05/24--) Code Status: FULL Reason for Hospitalization: Ventilator-associated pneumonia Other Barriers to Discharge: Sputum cultures Patient plan of care was discussed with the senior resident Dr. Vigil (PGY-2) and attending physician Dr. Mary Kay Trevino, PGY1 Attending Provider Attestation/Addendum I have examined the patient, reviewed labs and imaging findings, discussed the case with the resident(s), and reviewed entered orders. I agree with the plan of care as outlined in this note, with these additional summaries/recommendations: Patient is a 80-year-old male with a medical history of CVA status post trach and PEG, chronic respiratory failure on MV, insulin dependent diabetes mellitus type 2, primary hypertension, hyperlipidemia, history of MRSA pneumonia and bacteremia, Pseudomonas UTIs, constipation, and chronic pressure ulcers presents to [facility] emergency department on 05/23/20[facility] from SN[facility] for hypotension. Patient patient's son seen at bedside. Patient is trached and pegged no history can be obtained. He is well-known to hospital service and has history of recurrent admissions. Patient admitted overnight for ventilator associated pneumonia +/- urinary tract infection. Sepsis ruled out as no evidence of endorgan damage. Patient has history of MDR's and we will continue cefepime plus vancomycin for now. Order sputum culture and follow-up blood plus urine cultures. Continue midodrine for chronic hypotension. Continue Eliquis for history of DVT. Consult wound care for decubitus ulcers. Continue insulin sliding scale with Accu-Cheks. Target blood sugar 140-180 while hospitalized. Consult dietary to resume tube feeds. Patient's son updated on the plan and in agreement. All questions answered to satisfaction. Please see residents note for additional details and management. Dr. Mary Kay MD
[2025-05-24] MEDS: VANCOMYCIN/D5W 1500 MG IVPB 300 ML 200 MG IV ×2 (10:03→21:43)
[2025-05-24] MEDS: MIDODRINE 5 MG TABLET PO ×2 (11:01→21:01)
--- NOTE | 2025-05-24 16:04 | PC.SS ---
Rounding Note: Blood cultures are pending. Patient receiving IV antibiotics.
[2025-05-24] MEDS: INSULIN LISPRO (AdmeLOG) 1 UNIT/0.01 ML UNIT SC (23:31)
[2025-05-25] VITALS (16 sets, daily range): BP systolic 101–118; BP diastolic 56–78; PULSE 78–130; RESP 2–32; TEMP 35.3–37.1; O2SAT 94–100; BMI 37.2
[2025-05-25] MEDS: MIDODRINE 5 MG TABLET PO ×3 (05:16→21:40)
[2025-05-25 05:29] LABS: Basophils # (Auto) 0.0 Thou/mm3 (0.0-0.2); Basophils % (Auto) 0 % (0-2.5); Eosinophils # (Auto) 0.8 Thou/mm3 (0.0-0.5); Eosinophils % (Auto) 9 % (0-10); Hematocrit 28.9 % (41.0-53.0); Hemoglobin 8.7 g/dL (13.5-16.0); Immature Granulocytes Auto 0.03 Thou/mm3 (0.00-0.00); Lymphocytes # (Auto) 1.9 Thou/mm3 (1.0-4.8); Lymphocytes % (Auto) 21 % (10-50); Mean Corpuscular HGB Conc 30.1 g/dl (31.0-37.0); Mean Corpuscular Hemoglobin 26.0 pg (25.0-35.0); Mean Corpuscular Volume 86 fL (80-100); Monocytes # (Auto) 0.7 Thou/mm3 (0.0-0.8); Monocytes % (Auto) 8 % (0-12); Neutrophils # (Auto) 5.7 Thou/mm3 (1.8-7.7); Neutrophils % (Auto) 62 % (37-80); Nucleated Red Blood Cell # 0.00 Thou/mm3 (0.00-0.00); Nucleated Red Blood Cell % 0 /100 WBC (0); Platelet Count 400 Thou/mm3 (140-440); RDW Standard Deviation 66.7 fL (35.1-43.9); Red Blood Count 3.35 Miln/mm3 (4.50-5.90); White Blood Count 9.2 Thou/mm3 (3.8-10.6)
[2025-05-25 05:49] LABS: Anion Gap 8 (7-16); BUN/Creatinine Ratio 27 Ratio (12-20); Blood Urea Nitrogen 16 mg/dL (9-23); Calcium 8.9 mg/dL (8.3-10.6); Carbon Dioxide 26.2 mMol/L (20.0-31.0); Chloride 105 mMol/L (98-107); Creatinine (Component) 0.6 mg/dL (0.6-1.3); Estimated Creatinine Clearance 137.1 mL/min (>60); Glucose 148 mg/dL (74-106); Magnesium 2.1 mg/dL (1.6-2.6); Osmolality,Calculated 281 (275-295); Phosphorous 4.0 mg/dL (2.4-5.1); Potassium 4.1 mMol/L (3.4-5.1); Sodium 139 mMol/L (136-145); eGFR > 60 See Note
[2025-05-25] MEDS: APIXABAN 2.5 MG TABLET 5 MG GT ×2 (08:33→21:39)
[2025-05-25] MEDS: CEFEPIME INJ 2 GM in SODIUM CHLORIDE 0.9% (Popper) 50 ML IV ×2 (08:35→21:39)
--- NOTE | 2025-05-25 09:52 | ESPR_ITS ---
Documentation for date of: 05/25/25 Subjective Subjective Interval history: Patient seen and assessed in hospital bed with midly improved mental status; able to open eyes and track. Will continue to treat with IV cefepime and discontinue IV vancomycin. Patient's sputum cultures show rare Gram negative rods, pending speciation. Patient's urine cultures show GPC, pending speciation. Will continue to monitor for any acute changes. Exam Vital Signs Temp Pulse Resp BP Pulse Ox O2 Del Method FiO2 96.6 F L 78 32 H 108/78 24 L Mechanical Ventilation 40 05/25/25 04:00 05/25/25 07:47 05/25/25 00:00 05/25/25 05:16 05/25/25 07:47 05/25/25 04:00 05/25/25 07:47 Narrative Exam Physical Exam: General: Opens eyes on command, no acute distress. Tracheostomy tube in place. On mechanical ventilator. Skin: Warm, dry, intact. Head: Normocephalic, atraumatic. Cardiovascular: Regular rate and rhythm, no murmur, +S1/S2. Respiratory: Lungs are clear to auscultation, respirations unlabored, no crackles, no wheezing. Gastrointestinal: Soft, nontender, mildly distended. No guarding or rebound tenderness. PEG tube in place. Extremities: No edema, no cyanosis, no clubbing. Objective Labs 05/26/25 04:58 05/26/25 04:58 Labs: Laboratory Results - last 24 hr 05/25/25 04:54 WBC 9.2 RBC 3.35 L Hgb 8.7 L Hct 28.9 L MCV 86 MCH 26.0 MCHC 30.1 L RDW Std Deviation 66.7 H Plt Count 400 D Neut % (Auto) 62 Lymph % (Auto) 21 [place] % (Auto) 8 Eos % (Auto) 9 Baso % (Auto) 0 Neut # (Auto) 5.7 Lymph # (Auto) 1.9 [place] # (Auto) 0.7 Eos # (Auto) 0.8 H Baso # (Auto) 0.0 Immature Gran # (Auto) 0.03 H Absolute Nucleated RBC 0.00 Immature Gran % 0 Nucleated RBC % 0 Sodium 139 Potassium 4.1 Chloride 105 Carbon Dioxide 26.2 Anion Gap 8 BUN 16 Creatinine 0.6 Estim Creat Clear Calc 137.1 eGFR > 60 BUN/Creatinine Ratio 27 H Glucose 148 H Calculated Osmolality 281 Calcium 8.9 Phosphorus 4.0 Magnesium 2.1 ABG Interpretation ABG results: 05/23/25 23:11 ABG pH 7.35 ABG pCO2 50 H ABG pO2 124 H ABG HCO3 28 H ABG O2 Saturation 99 H ABG Base Excess 2 Quality Measures Quality Measures sepsis Current suspected stage: ruled out Possible source: pulmonary Blood cultures ordered: completed in ED Antibiotic ordered: Yes Advance care planning discussed with:: spouse and child Assessment & Plan Assessment Current Active Medications: Generic Name Dose Route Start Last Admin Trade Name Freq PRN Reason Stop Dose Admin Apixaban 5 mg 05/23/25 22:45 05/25/25 08:33 Apixaban 2.5 Mg Tablet GT 06/13/25 22:44 5 mg BID IMANI Administration Dextrose 25 ml 05/23/25 22:35 Dextrose 50%-Water Inj 50 Ml Syringe IV 06/22/25 22:34 Q15MIN PRN BG 50-70 responsive npo pt Dextrose 50 ml 05/23/25 22:35 Dextrose 50%-Water Inj 50 Ml Syringe IV 06/22/25 22:34 Q15MIN PRN BG <50 OR BG <70 & pt unresponsive Glucagon 1 mg 05/23/25 22:35 Glucagon Inj 1 Mg Vial IM Q15MIN PRN BG <70, and no IV access Cefepime HCl 2 gm/ Sodium 50 mls @ 100 mls/hr 05/24/25 09:00 05/25/25 08:35 Chloride IV 05/31/25 08:59 100 mls/hr Q12HR IMANI Administration Insulin Human Lispro 0 unit 05/24/25 06:30 05/25/25 06:00 Insulin Lispro (Admelog) 1 Unit/0.01 Ml Unit SC 06/23/25 06:29 Not Given Q6H IMANI Protocol Midodrine 5 mg 05/24/25 10:15 05/25/25 05:16 Midodrine 5 Mg Tablet PO 06/23/25 10:14 5 mg TID IMANI Administration Pantoprazole Sodium 40 mg 05/25/25 09:00 05/25/25 08:33 Pantoprazole Inj 40 Mg Vial IVP 06/24/25 08:59 40 mg QDAY IMANI Administration Sodium Chloride 4 ml 05/25/25 11:00 Sodium Cl Rt Jolene 3% 4 Ml Nebu (Non-Formulary) INH 06/24/25 10:59 Q4HRRT IMANI Plan This patient is a 80-year-old male with a past medical history of CVA, chronic hypoxic respiratory failure status post tracheostomy 2, HTN, T2DM, chronic sacral ulcers, vertebral osteomyelitis, status post PEG tube, chronic Abbott, multiple DVTs, and multiple recurrent admissions who presented to [facility] ED on 05/23 from [facility] for hypotension, cyanosis, and decreased responsiveness. Admitted for management of ventilator associated pneumonia. Patient came in and found to have 2 or more SIRS criteria and was evaluated for sepsis. However, based upon further work-up, sepsis was ruled out. #Ventilator associated pneumonia, left lung #Sepsis ruled out #Status post tracheostomy tube in (2021) Patient was found to be hypotensive, hypothermic, and tachycardia on presentation to ED. Patient is noted to have very frequent and recurrent hospitalizations for ventilator associated pneumonia and/or hospital-acquired pneumonia. The patient is s/p tracheostomy with a tracheostomy tube and requires chronic ventilation. Sepsis ruled out given lack of endorgan damage. SIRS 3/4, qSOFA score 3 PSI/PORT score: Class V, hospitalization recommended Rx: 3 L NS and midodrine given in ED Diagnostic: Chest x-ray 05/23 shows diffuse left lung pneumonia MRSA nares (-) Sputum cultures growing rare GNR, pending speciation Plan: Discontinued Vancomycin Cefepime 2 mg daily (05/23--) Midodrine 5 mg three times daily Blood cultures collected 05/23, preliminary no growth after 24 hours #UTI, recurrent #Chronic Abbott catheter Patient has extensive history of Pseudomonas UTI. Patient is unable to verbalize if he has any symptoms of UTI, however on admission UA was positive for leukocyte esterase, RBC 466, and WBC 89. 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 Patient was initially put on Eliquis for management of these DVTs, but patient had noted drop in hemoglobin and hematuria during previous admission. Attempted to place IVC filter for patient, but unsuccessful at this institution. Patient was transferred to [facility] in [place] for IVC filter, however physicians noted that the patient could be managed with pharmaceutical anticoagulation. Plan: Home Eliquis 5 mg twice daily #Normocytic anemia, chronic #Thrombocytosis, resolved Patient noted to have hemoglobin of 8.9 on admission. MCV 85. Patient has a long history of normocytic anemia. Platelets elevated at 454 on admission. Thrombocytosis is likely reactive to infection. Plan: Continue to monitor, transfuse if hemoglobin less than 7 per protocol #Multistage decubitus ulcer #Sacral ulcer stage I, improving #Gluteal ulcer stage II On examination during admission, sacral ulcer improved from last admission epidermis intact. Bilateral gluteal ulcers stage 2, left lateral leg ulcer. 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 Mary Kay Ortiz, DO PGY-2 Internal Medicine Attending Provider Attestation/Addendum I have examined the patient, reviewed labs and imaging findings, discussed the case with the resident(s), and reviewed entered orders. I agree with the plan of care as outlined in this note, with these additional summaries/recommendations: Patient is a 80-year-old male with a medical history of CVA status post trach and PEG, chronic respiratory failure on MV, insulin dependent diabetes mellitus type 2, primary hypertension, hyperlipidemia, history of MRSA pneumonia and bacteremia, Pseudomonas UTIs, constipation, and chronic pressure ulcers presents to [facility] emergency department on 05/23/2025 from SNF for hypotension. Patient and patient's family seen at bedside. No acute overnight events. Goals of care was held with family and they would like to proceed with full code and full treatment for now which we will respect. Patient is trached and pegged no history can be obtained. He is well-known to hospital service and has history of recurrent admissions. Patient admitted for ventilator associated pneumonia +/- urinary tract infection. Sepsis ruled out as no evidence of endorgan damage. Patient has history of MDR's and we will continue cefepime plus vancomycin for now. Urine culture preliminarily showing GPC, blood culture showed no growth at 24 hours, and sputum Gram stain showing GNR's. Await final speciation cultures. Continue midodrine for chronic hypotension. Continue Eliquis for history of DVT. Consult wound care for decubitus ulcers. Continue insulin sliding scale with Accu-Cheks. Target blood sugar 140-180 while hospitalized. Consult dietary to resume tube feeds. Patient's son updated on the plan and in agreement. All questions answered to satisfaction. Please see residents note for additional details and management. Dr. Mary Kay MD
--- NOTE | 2025-05-25 11:30 | PC.SS ---
[employer] MECH[employer]IC conducted bedside contact with the patient to conduct initial assessment and to discuss discharge planning.? At bedside with patient was spouse, Sherlyn Kowalskiens .? [employer] MECHANIC obtained information from patient?s spouse.? Patient is on a mechanical ventilator and PEG tube.? ?Patient is from [facility].? [facility] ?Spouse confirmed with [employer] MECHANIC that IVC filter was not placed during previous transfer.? Per spouse, issue resolved with medication.? Patient is bed bound.? Patient?s medical surrogate decision maker is spouse, Sherlyn Sanchez.? Dr. Heredia is the facility PCP.? The patient is not currently aligned with outpatient dialysis.? The discharge plan is for the patient to return to [facility] upon discharge.? Patient will require transportation back to sub-acute facility to include respiratory rider.? office services associate will assist with arranging transportation on behalf of the patient.? ?No further discharge needs identified by the patient.? No further intervention required at this time, psychiatric social worker supervisor will be available to address any further concerns.? Next of Kin: Sherlyn Sanchez D/C Plan: [facility]
[2025-05-25] MEDS: INSULIN LISPRO (AdmeLOG) 1 UNIT/0.01 ML UNIT SC ×2 (11:36→19:16)
--- NOTE | 2025-05-25 13:41 | CHAP ---
Patient was visited by the Spiritual Care Volunteer who prayed with them. (Volunteer was in the hospital 11:05-1:41)
[2025-05-25] MEDS: SODIUM CL RT SOL 3% 4 ML NEBU (NON-FORMULARY) INH ×3 (15:02→22:53)
[2025-05-25] MEDS: ATORVASTATIN CALCIUM 20 MG TABLET GT (21:39)
[2025-05-25] MEDS: GABAPENTIN 300 MG CAPSULE 600 MG GT (21:40)
[2025-05-26] VITALS (16 sets, daily range): BP systolic 112–129; BP diastolic 59–77; PULSE 85–109; RESP 18–31; TEMP 36.1–37.1; O2SAT 100; BMI 37.0
[2025-05-26] MEDS: SODIUM CL RT SOL 3% 4 ML NEBU (NON-FORMULARY) INH ×6 (02:47→23:05)
--- NOTE | 2025-05-26 05:20 | PC.NURSE ---
Spoke to Dr Méndez regarding 6 AM midodrine administration and informed him of BP 129/77. He advised to hold med as it did not meet med parameters of giving for MAP less than 70.
[2025-05-26] MEDS: INSULIN LISPRO (AdmeLOG) 1 UNIT/0.01 ML UNIT SC ×2 (05:30→12:21)
[2025-05-26 05:32] LABS: Basophils # (Auto) 0.0 Thou/mm3 (0.0-0.2); Basophils % (Auto) 0 % (0-2.5); Eosinophils # (Auto) 0.8 Thou/mm3 (0.0-0.5); Eosinophils % (Auto) 9 % (0-10); Hematocrit 28.8 % (41.0-53.0); Immature Granulocytes Auto 0.06 Thou/mm3 (0.00-0.00); Lymphocytes # (Auto) 2.3 Thou/mm3 (1.0-4.8); Lymphocytes % (Auto) 25 % (10-50); Mean Corpuscular HGB Conc 29.9 g/dl (31.0-37.0); Mean Corpuscular Hemoglobin 25.8 pg (25.0-35.0); Mean Corpuscular Volume 87 fL (80-100); Monocytes # (Auto) 0.7 Thou/mm3 (0.0-0.8); Monocytes % (Auto) 8 % (0-12); Neutrophils # (Auto) 5.1 Thou/mm3 (1.8-7.7); Neutrophils % (Auto) 57 % (37-80); Nucleated Red Blood Cell # 0.00 Thou/mm3 (0.00-0.00); Nucleated Red Blood Cell % 0 /100 WBC (0); Platelet Count 385 Thou/mm3 (140-440); RDW Standard Deviation 67.1 fL (35.1-43.9); Red Blood Count 3.33 Miln/mm3 (4.50-5.90); White Blood Count 9.0 Thou/mm3 (3.8-10.6)
[2025-05-26 05:34] LABS: Hemoglobin 8.6 g/dL (13.5-16.0)
[2025-05-26 06:06] LABS: Anion Gap 8 (7-16); BUN/Creatinine Ratio 21 Ratio (12-20); Blood Urea Nitrogen 17 mg/dL (9-23); Calcium 8.9 mg/dL (8.3-10.6); Carbon Dioxide 25.9 mMol/L (20.0-31.0); Chloride 104 mMol/L (98-107); Creatinine (Component) 0.8 mg/dL (0.6-1.3); Estimated Creatinine Clearance 103.8 mL/min (>60); Glucose 160 mg/dL (74-106); Magnesium 2.0 mg/dL (1.6-2.6); Osmolality,Calculated 280 (275-295); Phosphorous 4.0 mg/dL (2.4-5.1); Potassium 4.4 mMol/L (3.4-5.1); Sodium 138 mMol/L (136-145); eGFR > 60 See Note
--- NOTE | 2025-05-26 09:18 | PC.SS ---
Update: Upon patient's discharge, patient will require RT rider for transport. Patient on mechanical ventilator. Patient to return to [facility].
[2025-05-26] MEDS: ASPIRIN 81 MG CHEW GT (09:42)
[2025-05-26] MEDS: GABAPENTIN 300 MG CAPSULE 600 MG GT ×2 (09:42→20:55)
[2025-05-26] MEDS: APIXABAN 2.5 MG TABLET 5 MG GT ×2 (09:42→20:55)
[2025-05-26] MEDS: CEFEPIME INJ 2 GM in SODIUM CHLORIDE 0.9% (Popper) 50 ML IV ×2 (09:43→20:55)
--- NOTE | 2025-05-26 11:22 | ESPR_ITS ---
Documentation for date of: 05/26/25 Subjective Subjective Interval history: Patient seen and assessed in hospital bed with normal vital signs and stable mental status. Patient continues to be treated with IV antibiotics for ventilator associated pneumonia along with possible urinary tract infection. Pending speciation of sputum culture and urine culture; moreover, blood cultures show no growth within 48 hours. Patient is on day 3 of ceftriaxone; expect discharge within the next 24 to 48 hours back to facility. Exam Vital Signs Temp Pulse Resp BP Pulse Ox O2 Del Method FiO2 98.1 F 97 21 H 128/59 L 100 Mechanical Ventilation 40 05/26/25 08:00 05/26/25 10:50 05/26/25 10:50 05/26/25 08:00 05/26/25 10:50 05/26/25 08:00 05/26/25 10:50 Narrative Exam Physical Exam: General: Opens eyes on command, no acute distress. Tracheostomy tube in place. On mechanical ventilator. Skin: Warm, dry, intact. Head: Normocephalic, atraumatic. Cardiovascular: Regular rate and rhythm, no murmur, +S1/S2. Respiratory: Lungs are clear to auscultation, respirations unlabored, no crackles, no wheezing. Gastrointestinal: Soft, nontender, mildly distended. No guarding or rebound tenderness. PEG tube in place. Extremities: No edema, no cyanosis, no clubbing. Objective Labs 05/27/25 05:11 05/27/25 05:11 Labs: Laboratory Results - last 24 hr 05/26/25 04:58 WBC 9.0 RBC 3.33 L Hgb 8.6 L Hct 28.8 L MCV 87 MCH 25.8 MCHC 29.9 L RDW Std Deviation 67.1 H Plt Count 385 Neut % (Auto) 57 Lymph % (Auto) 25 [place] % (Auto) 8 Eos % (Auto) 9 Baso % (Auto) 0 Neut # (Auto) 5.1 Lymph # (Auto) 2.3 [place] # (Auto) 0.7 Eos # (Auto) 0.8 H Baso # (Auto) 0.0 Immature Gran # (Auto) 0.06 H Absolute Nucleated RBC 0.00 Immature Gran % 1 H Nucleated RBC % 0 Sodium 138 Potassium 4.4 Chloride 104 Carbon Dioxide 25.9 Anion Gap 8 BUN 17 Creatinine 0.8 Estim Creat Clear Calc 103.8 eGFR > 60 BUN/Creatinine Ratio 21 H Glucose 160 H Calculated Osmolality 280 Calcium 8.9 Phosphorus 4.0 Magnesium 2.0 ABG Interpretation ABG results: 05/23/25 23:11 ABG pH 7.35 ABG pCO2 50 H ABG pO2 124 H ABG HCO3 28 H ABG O2 Saturation 99 H ABG Base Excess 2 Quality Measures Quality Measures sepsis Current suspected stage: ruled out Possible source: pulmonary Blood cultures ordered: completed in ED Antibiotic ordered: Yes Advance care planning discussed with:: spouse and child Assessment & Plan Assessment Current Active Medications: Generic Name Dose Route Start Last Admin Trade Name Freq PRN Reason Stop Dose Admin Apixaban 5 mg 05/23/25 22:45 05/26/25 09:42 Apixaban 2.5 Mg Tablet GT 06/13/25 22:44 5 mg BID IMANI Administration Aspirin 81 mg 05/26/25 09:00 05/26/25 09:42 Aspirin 81 Mg Chew GT 06/25/25 08:59 81 mg QDAY IMANI Administration Atorvastatin Calcium 20 mg 05/25/25 21:00 05/25/25 21:39 Atorvastatin Calcium 20 Mg Tablet GT 06/24/25 20:59 20 mg QPM IMANI Administration Dextrose 25 ml 05/23/25 22:35 Dextrose 50%-Water Inj 50 Ml Syringe IV 06/22/25 22:34 Q15MIN PRN BG 50-70 responsive npo pt Dextrose 50 ml 05/23/25 22:35 Dextrose 50%-Water Inj 50 Ml Syringe IV 06/22/25 22:34 Q15MIN PRN BG <50 OR BG <70 & pt unresponsive Gabapentin 600 mg 05/25/25 21:00 05/26/25 09:42 Gabapentin 300 Mg Capsule GT 06/24/25 20:59 600 mg BID IMANI Administration Glucagon 1 mg 05/23/25 22:35 Glucagon Inj 1 Mg Vial IM Q15MIN PRN BG <70, and no IV access Cefepime HCl 2 gm/ Sodium 50 mls @ 100 mls/hr 05/24/25 09:00 05/26/25 09:43 Chloride IV 05/31/25 08:59 100 mls/hr Q12HR IMANI Administration Insulin Human Lispro 0 unit 05/24/25 06:30 05/26/25 05:30 Insulin Lispro (Admelog) 1 Unit/0.01 Ml Unit SC 06/23/25 06:29 1 unit Q6H IMANI Administration Protocol Midodrine 5 mg 05/24/25 10:15 05/26/25 05:19 Midodrine 5 Mg Tablet PO 06/23/25 10:14 Not Given TID IMANI Pantoprazole Sodium 40 mg 05/25/25 09:00 05/26/25 09:42 Pantoprazole Inj 40 Mg Vial IVP 06/24/25 08:59 40 mg QDAY IMANI Administration Sodium Chloride 4 ml 05/25/25 11:00 05/26/25 10:49 Sodium Cl Rt Jolene 3% 4 Ml Nebu (Non-Formulary) INH 06/24/25 10:59 4 ml Q4HRRT IMANI Administration Plan This patient is a 80-year-old male with a past medical history of CVA, chronic hypoxic respiratory failure status post tracheostomy 2, HTN, T2DM, chronic sacral ulcers, vertebral osteomyelitis, status post PEG tube, chronic Abbott, multiple DVTs, and multiple recurrent admissions who presented to [facility] ED on 05/23 from [facility] for hypotension, cyanosis, and decreased responsiveness. Admitted for management of ventilator associated pneumonia. Patient came in and found to have 2 or more SIRS criteria and was evaluated for sepsis. However, based upon further work-up, sepsis was ruled out. #Ventilator associated pneumonia, left lung #Sepsis ruled out #Status post tracheostomy tube in (2021) Patient was found to be hypotensive, hypothermic, and tachycardia on presentation to ED. Patient is noted to have very frequent and recurrent hospitalizations for ventilator associated pneumonia and/or hospital-acquired pneumonia. The patient is s/p tracheostomy with a tracheostomy tube and requires chronic ventilation. Sepsis ruled out given lack of endorgan damage. SIRS 3/4, qSOFA score 3 PSI/PORT score: Class V, hospitalization recommended Rx: 3 L NS and midodrine given in ED Diagnostic: Chest x-ray 05/23 shows diffuse left lung pneumonia MRSA nares (-) Sputum cultures growing rare GNR, pending speciation Plan: Cefepime 2 mg daily (05/23--) Midodrine 5 mg three times daily Blood cultures collected 05/23, preliminary no growth after 48 hours #UTI, recurrent #Chronic Abbott catheter Patient has extensive history of Pseudomonas UTI. Patient is unable to verbalize if he has any symptoms of UTI, however on admission UA was positive for leukocyte esterase, RBC 466, and WBC 89. 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 Patient was initially put on Eliquis for management of these DVTs, but patient had noted drop in hemoglobin and hematuria during previous admission. Attempted to place IVC filter for patient, but unsuccessful at this institution. Patient was transferred to [facility] in [place] for IVC filter, however physicians noted that the patient could be managed with pharmaceutical anticoagulation. Plan: Home Eliquis 5 mg twice daily #Normocytic anemia, chronic #Thrombocytosis, resolved Patient noted to have hemoglobin of 8.9 on admission. MCV 85. Patient has a long history of normocytic anemia. Platelets elevated at 454 on admission. Thrombocytosis is likely reactive to infection. Plan: Continue to monitor, transfuse if hemoglobin less than 7 per protocol #Multistage decubitus ulcer #Sacral ulcer stage I, improving #Gluteal ulcer stage II On examination during admission, sacral ulcer improved from last admission epidermis intact. Bilateral gluteal ulcers stage 2, left lateral leg ulcer. 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 Mary Kay Ortiz, DO PGY-2 Internal Medicine Attending Provider Attestation/Addendum I have examined the patient, reviewed labs and imaging findings, discussed the case with the resident(s), and reviewed entered orders. I agree with the plan of care as outlined in this note, with these additional summaries/recommendations: Patient is a 80-year-old male with a medical history of CVA status post trach and PEG, chronic respiratory failure on MV, insulin dependent diabetes mellitus type 2, primary hypertension, hyperlipidemia, history of MRSA pneumonia and bacteremia, Pseudomonas UTIs, constipation, and chronic pressure ulcers presents to [facility] emergency department on 05/23/2025 from SNF for hypotension. Patient seen at bedside. No acute overnight events. Patient is trached and pegged no history can be obtained. He is well-known to hospital service and has history of recurrent admissions. Patient admitted for ventilator associated pneumonia +/- urinary tract infection. Sepsis ruled out as no evidence of endorgan damage. Patient has history of MDR's and we will continue cefepime plus vancomycin for now. Urine culture preliminarily showing GPC, blood culture showed no growth at 24 hours, and sputum Gram stain showing GNR's. Await final speciation cultures before patient can be safely discharged. Continue midodrine for chronic hypotension. Continue Eliquis for history of DVT. Consult wound care for decubitus ulcers. Continue insulin sliding scale with Accu-Cheks. Target blood sugar 140-180 while hospitalized. Continue tube feeds & free water flushes. Please see residents note for additional details and management. Dr. Mary Kay MD
--- NOTE | 2025-05-26 12:43 | PC.NURSE ---
At 1000 this morning, patient had gastric residuals of 275, returned 250 and rechecked at 1230. At 1230, patient had gastric residuals of 275, returned 250, held feeding and called MD. Per MD, continue holding feeding for two hours and recheck gastric residuals after two hours of holding feeding.
[2025-05-26] MEDS: METOCLOPRAMIDE INJ 5 MG/ML VIAL 2 ML IVP ×2 (14:59→21:01)
[2025-05-26] MEDS: ATORVASTATIN CALCIUM 20 MG TABLET GT (20:55)
[2025-05-26] MEDS: MIDODRINE 5 MG TABLET PO (21:01)
[2025-05-27] VITALS (14 sets, daily range): BP systolic 119–142; BP diastolic 59–85; PULSE 78–116; RESP 18–32; TEMP 36–36.8; O2SAT 99–100; BMI 36.9
[2025-05-27] MEDS: INSULIN LISPRO (AdmeLOG) 1 UNIT/0.01 ML UNIT SC ×3 (00:07→17:33)
[2025-05-27] MEDS: SODIUM CL RT SOL 3% 4 ML NEBU (NON-FORMULARY) INH ×6 (03:04→22:08)
[2025-05-27 05:38] LABS: Basophils # (Auto) 0.0 Thou/mm3 (0.0-0.2); Basophils % (Auto) 0 % (0-2.5); Eosinophils # (Auto) 0.6 Thou/mm3 (0.0-0.5); Eosinophils % (Auto) 6 % (0-10); Hematocrit 30.9 % (41.0-53.0); Hemoglobin 9.4 g/dL (13.5-16.0); Immature Granulocytes Auto 0.03 Thou/mm3 (0.00-0.00); Lymphocytes # (Auto) 2.7 Thou/mm3 (1.0-4.8); Lymphocytes % (Auto) 31 % (10-50); Mean Corpuscular HGB Conc 30.4 g/dl (31.0-37.0); Mean Corpuscular Hemoglobin 26.3 pg (25.0-35.0); Mean Corpuscular Volume 87 fL (80-100); Monocytes # (Auto) 0.9 Thou/mm3 (0.0-0.8); Monocytes % (Auto) 10 % (0-12); Neutrophils # (Auto) 4.6 Thou/mm3 (1.8-7.7); Neutrophils % (Auto) 53 % (37-80); Nucleated Red Blood Cell # 0.00 Thou/mm3 (0.00-0.00); Nucleated Red Blood Cell % 0 /100 WBC (0); Platelet Count 326 Thou/mm3 (140-440); RDW Standard Deviation 67.6 fL (35.1-43.9); Red Blood Count 3.57 Miln/mm3 (4.50-5.90); White Blood Count 8.8 Thou/mm3 (3.8-10.6)
[2025-05-27] MEDS: METOCLOPRAMIDE INJ 5 MG/ML VIAL 2 ML IVP ×3 (05:39→21:23)
[2025-05-27 06:12] LABS: Alanine Aminotransferase 14 U/L (10-49); Albumin, Serum 2.8 gm/dL (3.4-4.8); Albumin/Globulin Ratio 0.6 (1.2-2.2); Alkaline Phosphatase 126 U/L (46-116); Anion Gap 8 (7-16); Aspartate Amino Transferase 25 U/L (0-34); BUN/Creatinine Ratio 19 Ratio (12-20); Bilirubin,Total 0.3 mg/dL (0.3-1.2); Blood Urea Nitrogen 15 mg/dL (9-23); Calcium 9.6 mg/dL (8.3-10.6); Calcium (Corrected) 10.6 mg/dL (8.5-10.1); Carbon Dioxide 27.9 mMol/L (20.0-31.0); Chloride 105 mMol/L (98-107); Creatinine (Component) 0.8 mg/dL (0.6-1.3); Estimated Creatinine Clearance 103.4 mL/min (>60); Globulin 4.9 gm/dL (2.3-3.5); Glucose 159 mg/dL (74-106); Osmolality,Calculated 285 (275-295); Potassium 4.9 mMol/L (3.4-5.1); Sodium 141 mMol/L (136-145); Total Protein 7.7 gm/dL (5.7-8.2); eGFR > 60 See Note
[2025-05-27] MEDS: GABAPENTIN 300 MG CAPSULE 600 MG GT ×2 (09:16→20:33)
[2025-05-27] MEDS: APIXABAN 2.5 MG TABLET 5 MG GT ×2 (09:16→20:33)
[2025-05-27] MEDS: CEFEPIME INJ 2 GM in SODIUM CHLORIDE 0.9% (Popper) 50 ML IV ×2 (09:16→20:33)
[2025-05-27] MEDS: ASPIRIN 81 MG CHEW GT (09:16)
--- NOTE | 2025-05-27 10:05 | CHAP ---
Patient was visited by the Spiritual Care Volunteer who prayed for them. (Volunteer was in the hospital 09:12-10:05)
--- NOTE | 2025-05-27 10:21 | ESPR_ITS ---
Documentation for date of: 05/27/25 Subjective Subjective Interval history: Overnight events: No acute events overnight. Patient was seen and examined at bedside. AM vitals and labs reviewed. Patient does not appear to be in any acute distress at this time. Did attempt to interact with the patient, but patient's eyes were wide open and patient was not blinking. Calcium 7.6 Urine culture positive for yeast, but this is likely contaminant given only 20,000-30,000 colonies. Sputum culture positive for 2 gram-negative rods, 1 of which is Pseudomonas aeruginosa that is sensitive to cefepime. Pending completion of sputum culture speciation. Discussed with family welfare social work professor, who discussed with the patient's SNF, can do IV antibiotics at SNF, will plan to discharge within the next 24 hours and complete the course of IV antibiotics at the SNF. Review of systems otherwise negative except for what is mentioned above. Exam Vital Signs Temp Pulse Resp BP Pulse Ox O2 Del Method FiO2 97.3 F 99 29 H 137/83 H 100 Mechanical Ventilation 40 05/27/25 08:00 05/27/25 08:00 05/27/25 08:00 05/27/25 08:00 05/27/25 08:00 05/27/25 08:00 05/27/25 08:00 Narrative Exam Physical Exam: General: Eyes open but does not blink on command, no acute distress. Tracheostomy tube in place. On mechanical ventilator. Skin: Warm, dry, intact. Head: Normocephalic, atraumatic. Cardiovascular: Regular rate and rhythm, no murmur, +S1/S2. Respiratory: Lungs are clear to auscultation, respirations unlabored, no crackles, no wheezing. Gastrointestinal: Soft, nontender, mildly distended. No guarding or rebound tenderness. PEG tube in place. Extremities: No edema, no cyanosis, no clubbing. Objective Labs 05/28/25 05:04 05/28/25 05:04 Labs: Laboratory Results - last 24 hr 05/27/25 05:11 WBC 8.8 RBC 3.57 L Hgb 9.4 L Hct 30.9 L MCV 87 MCH 26.3 MCHC 30.4 L RDW Std Deviation 67.6 H Plt Count 326 D Neut % (Auto) 53 Lymph % (Auto) 31 [place] % (Auto) 10 Eos % (Auto) 6 Baso % (Auto) 0 Neut # (Auto) 4.6 Lymph # (Auto) 2.7 [place] # (Auto) 0.9 H Eos # (Auto) 0.6 H Baso # (Auto) 0.0 Immature Gran # (Auto) 0.03 H Absolute Nucleated RBC 0.00 Immature Gran % 0 Nucleated RBC % 0 Sodium 141 Potassium 4.9 D Chloride 105 Carbon Dioxide 27.9 Anion Gap 8 BUN 15 Creatinine 0.8 Estim Creat Clear Calc 103.4 eGFR > 60 BUN/Creatinine Ratio 19 Glucose 159 H Calculated Osmolality 285 Calcium 9.6 Corrected Calcium 10.6 H Total Bilirubin 0.3 AST 25 ALT 14 Alkaline Phosphatase 126 H Total Protein 7.7 Albumin 2.8 L Globulin 4.9 H Albumin/Globulin Ratio 0.6 L ABG Interpretation ABG results: 05/23/25 23:11 ABG pH 7.35 ABG pCO2 50 H ABG pO2 124 H ABG HCO3 28 H ABG O2 Saturation 99 H ABG Base Excess 2 Quality Measures Quality Measures sepsis Current suspected stage: ruled out Possible source: pulmonary Blood cultures ordered: completed in ED Antibiotic ordered: Yes Advance care planning discussed with:: patient Assessment & Plan Assessment Current Active Medications: Generic Name Dose Route Start Last Admin Trade Name Freq PRN Reason Stop Dose Admin Apixaban 5 mg 05/23/25 22:45 05/27/25 09:16 Apixaban 2.5 Mg Tablet GT 06/13/25 22:44 5 mg BID IMANI Administration Aspirin 81 mg 05/26/25 09:00 05/27/25 09:16 Aspirin 81 Mg Chew GT 06/25/25 08:59 81 mg QDAY IMANI Administration Atorvastatin Calcium 20 mg 05/25/25 21:00 05/26/25 20:55 Atorvastatin Calcium 20 Mg Tablet GT 06/24/25 20:59 20 mg QPM IMANI Administration Dextrose 25 ml 05/23/25 22:35 Dextrose 50%-Water Inj 50 Ml Syringe IV 06/22/25 22:34 Q15MIN PRN BG 50-70 responsive npo pt Dextrose 50 ml 05/23/25 22:35 Dextrose 50%-Water Inj 50 Ml Syringe IV 06/22/25 22:34 Q15MIN PRN BG <50 OR BG <70 & pt unresponsive Gabapentin 600 mg 05/25/25 21:00 05/27/25 09:16 Gabapentin 300 Mg Capsule GT 06/24/25 20:59 600 mg BID IMANI Administration Glucagon 1 mg 05/23/25 22:35 Glucagon Inj 1 Mg Vial IM Q15MIN PRN BG <70, and no IV access Cefepime HCl 2 gm/ Sodium 50 mls @ 100 mls/hr 05/24/25 09:00 05/27/25 09:16 Chloride IV 05/31/25 08:59 100 mls/hr Q12HR IMANI Administration Insulin Human Lispro 0 unit 05/24/25 06:30 05/27/25 05:40 Insulin Lispro (Admelog) 1 Unit/0.01 Ml Unit SC 06/23/25 06:29 Not Given Q6H IMANI Protocol Metoclopramide HCl 5 mg 05/26/25 14:00 05/27/25 05:39 Metoclopramide Inj 5 Mg/Ml Vial 2 Ml IVP 06/25/25 13:59 5 mg Q8HR IMANI Administration Protocol Midodrine 5 mg 05/24/25 10:15 05/27/25 05:40 Midodrine 5 Mg Tablet PO 06/23/25 10:14 Not Given TID IMANI Pantoprazole Sodium 40 mg 05/25/25 09:00 05/27/25 09:16 Pantoprazole Inj 40 Mg Vial IVP 06/24/25 08:59 40 mg QDAY IMANI Administration Sodium Chloride 4 ml 05/25/25 11:00 05/27/25 07:20 Sodium Cl Rt Jolene 3% 4 Ml Nebu (Non-Formulary) INH 06/24/25 10:59 4 ml Q4HRRT IMANI Administration Plan This patient is a 80-year-old male with a past medical history of CVA, chronic hypoxic respiratory failure status post tracheostomy 2, HTN, T2DM, chronic sacral ulcers, vertebral osteomyelitis, status post PEG tube, chronic Abbott, multiple DVTs, and multiple recurrent admissions who presented to [facility] ED on 05/23 from [facility] for hypotension, cyanosis, and decreased responsiveness. Admitted for management of ventilator associated pneumonia. Patient came in and found to have 2 or more SIRS criteria and was evaluated for sepsis. However, based upon further work-up, sepsis was ruled out. #Ventilator associated pneumonia, left lung #Sepsis ruled out #Status post tracheostomy tube in (2021) Patient was found to be hypotensive, hypothermic, and tachycardia on presentation to ED. Patient is noted to have very frequent and recurrent hospitalizations for ventilator associated pneumonia and/or hospital-acquired pneumonia. The patient is s/p tracheostomy with a tracheostomy tube and requires chronic ventilation. Sepsis ruled out given lack of endorgan damage. SIRS 3/4, qSOFA score 3 PSI/PORT score: Class V, hospitalization recommended Rx: 3 L NS and midodrine given in ED Diagnostic: Chest x-ray 05/23 shows diffuse left lung pneumonia MRSA nares (-) Blood cultures collected 05/23, preliminary no growth after 48 hours' Sputum culture collected 05/24, shows pseudomonas & GNR Plan: Cefepime 2 mg daily (05/23-05/29) Midodrine 5 mg three times daily #UTI, recurrent, ruled out #Chronic Abbott catheter Patient has extensive history of Pseudomonas UTI. Patient is unable to verbalize if he has any symptoms of UTI, however on admission UA was positive for leukocyte esterase, RBC 466, and WBC 89. Urine culture collected 05/23, preliminary results Yeast 20,000-30,000 colonies Plan: Abbott catheter exchanged 05/23 Cefepime 2 mg daily (05/23-05/29) #History of significant bilateral DVTs, on Eliquis Patient has a history of extensive DVTs bilaterally. Patient was initially put on Eliquis for management of these DVTs, but patient had noted drop in hemoglobin and hematuria during previous admission. Attempted to place IVC filter for patient, but unsuccessful at this institution. Patient was transferred to [facility] in [place] for IVC filter, however physicians noted that the patient could be managed with pharmaceutical anticoagulation. Plan: Home Eliquis 5 mg twice daily #Normocytic anemia, chronic #Thrombocytosis, resolved Patient noted to have hemoglobin of 8.9 on admission. MCV 85. Patient has a long history of normocytic anemia. Platelets elevated at 454 on admission. Thrombocytosis is likely reactive to infection. Plan: Continue to monitor, transfuse if hemoglobin less than 7 per protocol #Multistage decubitus ulcer #Sacral ulcer stage I, improving #Gluteal ulcer stage II On examination during admission, sacral ulcer improved from last admission epidermis intact. Bilateral gluteal ulcers stage 2, left lateral leg ulcer. 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 Mary Kay Trevino, PGY-1 Attending Provider Attestation/Addendum I have examined the patient, reviewed labs and imaging findings, discussed the case with the resident(s), and reviewed entered orders. I agree with the plan of care as outlined in this note, with these additional summaries/recommendations: Patient is a 80-year-old male with a medical history of CVA status post trach and PEG, chronic respiratory failure on MV, insulin dependent diabetes mellitus type 2, primary hypertension, hyperlipidemia, history of MRSA pneumonia and bacteremia, Pseudomonas UTIs, constipation, and chronic pressure ulcers presents to [facility] emergency department on 05/23/2025 from SNF for hypotension. Patient seen at bedside. No acute overnight events. Patient is trached and pegged no history can be obtained. He is well-known to hospital service and has history of recurrent admissions. Patient admitted for ventilator associated pneumonia +/- urinary tract infection. Sepsis ruled out as no evidence of endorgan damage. Patient has history of MDR's and we will continue cefepime plus vancomycin for now. Urine culture grew yeast likely contaminant, blood cultures show no growth at 48 hours, and sputum culture growing Pseudomonas aeruginosa and additional gram-negative trisha awaiting speciation. We will await final speciation and continue IV antibiotics before patient can be safely discharged. Continue midodrine for chronic hypotension. Continue Eliquis for history of DVT. Consult wound care for decubitus ulcers. Continue insulin sliding scale with Accu-Cheks. Target blood sugar 140-180 while hospitalized. Continue tube feeds & free water flushes. Please see residents note for additional details and management. Dr. Mary Kay MD
--- NOTE | 2025-05-27 10:37 | PC.RT ---
Dr. Vigil requested SS confirm if patient can return to [facility] at the [facility] with 2 day supply of IV antibiotics (peripheral IV). SS contacted [facility] [phone] to confirm, she stated patient can return with peripheral IV and their staff can administer it. However, patient cannot be accepted today due to them not having a RT available to set patient up. Denise stated their RT will be available tomorrow, 05/28/25, to set patient up. Dr. Vigil informed.
--- NOTE | 2025-05-27 15:18 | PC.SS ---
Rounding note: [facility] can receive patient 05/28/25 when their RT is on shift. Patient will need RT rider during transport. Discharge plan: return to [facility] at [facility]
[2025-05-27] MEDS: ATORVASTATIN CALCIUM 20 MG TABLET GT (20:33)
[2025-05-28] VITALS (13 sets, daily range): BP systolic 100–129; BP diastolic 58–75; PULSE 98–120; RESP 17–30; TEMP 36.1–36.8; O2SAT 100–106; BMI 36.9
[2025-05-28] MEDS: SODIUM CL RT SOL 3% 4 ML NEBU (NON-FORMULARY) INH ×6 (02:30→23:03)
[2025-05-28] MEDS: METOCLOPRAMIDE INJ 5 MG/ML VIAL 2 ML IVP ×3 (05:12→21:03)
[2025-05-28 05:33] LABS: Basophils # (Auto) 0.0 Thou/mm3 (0.0-0.2); Basophils % (Auto) 0 % (0-2.5); Eosinophils # (Auto) 0.5 Thou/mm3 (0.0-0.5); Eosinophils % (Auto) 5 % (0-10); Hematocrit 28.1 % (41.0-53.0); Immature Granulocytes Auto 0.03 Thou/mm3 (0.00-0.00); Lymphocytes # (Auto) 2.1 Thou/mm3 (1.0-4.8); Lymphocytes % (Auto) 25 % (10-50); Mean Corpuscular HGB Conc 29.5 g/dl (31.0-37.0); Mean Corpuscular Hemoglobin 25.8 pg (25.0-35.0); Mean Corpuscular Volume 87 fL (80-100); Monocytes # (Auto) 0.8 Thou/mm3 (0.0-0.8); Monocytes % (Auto) 9 % (0-12); Neutrophils # (Auto) 5.1 Thou/mm3 (1.8-7.7); Neutrophils % (Auto) 60 % (37-80); Nucleated Red Blood Cell # 0.00 Thou/mm3 (0.00-0.00); Nucleated Red Blood Cell % 0 /100 WBC (0); Platelet Count 312 Thou/mm3 (140-440); RDW Standard Deviation 68.8 fL (35.1-43.9); Red Blood Count 3.22 Miln/mm3 (4.50-5.90); White Blood Count 8.5 Thou/mm3 (3.8-10.6)
[2025-05-28 05:58] LABS: Hemoglobin 8.3 g/dL (13.5-16.0)
[2025-05-28 06:00] LABS: Alanine Aminotransferase 12 U/L (10-49); Albumin, Serum 2.5 gm/dL (3.4-4.8); Albumin/Globulin Ratio 0.5 (1.2-2.2); Alkaline Phosphatase 119 U/L (46-116); Anion Gap 6 (7-16); Aspartate Amino Transferase 15 U/L (0-34); BUN/Creatinine Ratio 27 Ratio (12-20); Bilirubin,Total 0.3 mg/dL (0.3-1.2); Blood Urea Nitrogen 19 mg/dL (9-23); Calcium 9.2 mg/dL (8.3-10.6); Calcium (Corrected) 10.4 mg/dL (8.5-10.1); Carbon Dioxide 30.4 mMol/L (20.0-31.0); Chloride 105 mMol/L (98-107); Creatinine (Component) 0.7 mg/dL (0.6-1.3); Estimated Creatinine Clearance 118.2 mL/min (>60); Globulin 4.7 gm/dL (2.3-3.5); Glucose 171 mg/dL (74-106); Osmolality,Calculated 287 (275-295); Potassium 4.8 mMol/L (3.4-5.1); Sodium 141 mMol/L (136-145); Total Protein 7.2 gm/dL (5.7-8.2); eGFR > 60 See Note
[2025-05-28] MEDS: GABAPENTIN 300 MG CAPSULE 600 MG GT ×2 (09:18→21:03)
[2025-05-28] MEDS: APIXABAN 2.5 MG TABLET 5 MG GT (09:18)
[2025-05-28] MEDS: CEFEPIME INJ 2 GM in SODIUM CHLORIDE 0.9% (Popper) 50 ML IV ×2 (09:18→21:03)
[2025-05-28] MEDS: ASPIRIN 81 MG CHEW GT (09:18)
--- NOTE | 2025-05-28 09:44 | ESDS_ITS ---
Planned Discharge Date 05/28/25 DS: Providers Provider Date of admission: 05/23/25 22:31 Primary care physician: Physician No Primary/Family Admitting Provider: Sofia Marquez MD Attending Provider on Admission: Zeyad Muñiz MD Consults: 05/23/25 22:28 Referral Registered Dietitian Stat Comment: PEG tube 05/24/25 05:17 Referral Wound Care Urgent Comment: Breakdown to coccyx/buttocks areas, and more. Attending Provider on DC: Zeyad Muñiz MD Discharging Provider: Ryland Trevino DO Anticipated date of discharge: 05/28/25 DS: Diagnosis Problem List Completed Was Problem List Reviewed/Reconciled?: Yes Hospital Course Hospital Course Hospital course: Reason for hospitalization: Ventilator associated pneumonia Summary: This patient is a 80-year-old male with a past medical history of CVA, chronic hypoxic respiratory failure status post tracheostomy 2, HTN, T2DM, chronic sacral ulcers, vertebral osteomyelitis, status post PEG tube, chronic Abbott, multiple DVTs, and multiple recurrent admissions who presented to [facility] ED on 05/23 from [facility] for hypotension, cyanosis, and decreased responsiveness. Admitted for management of ventilator associated pneumonia, with sepsis ruled out given lack of endorgan damage. The patient was very recently discharged on 05/17 for septic shock secondary to pneumonia and UTI. During that hospitalization, the patient was started on Zosyn and discharged on amoxicillin/clavulanate to complete his course of antibiotics. After returning to his SNF, the patient initially appeared to do well, however on 05/23, patient was brought in for the reasons as stated previously. The patient was initially treated with cefepime and vancomycin, however blood cultures came back negative and urine culture only grew yeast that was likely contaminant. Endotracheal tube secretion culture did grow GNR preliminarily, so vancomycin was stopped. The secretions culture would then differentiate into Pseudomonas. On 05/28, the patient had stable labs and stable vitals and did not appear to be in any acute distress. Patient is medically cleared to be discharged back to his SNF and will continue cefepime until 05/29 to complete his course of IV antibiotics for ventilator associated pneumonia. It is noted that at this point, the patient is likely colonized with those bacteria given his repeat infections. Additionally, patient was noted to have hematuria on 05/28, but this is not a new issue for the patient as he has had this problem in the past on Eliquis and the patient was continued on Eliquis regardless. We will hold the Eliquis for now, with plans for the patient to follow up on it outpatient. Discharge Recommendations: - Follow up with PCP within 1 week of discharge - Continue rest of medications as previously prescribed - Return to the ED or call EMS if symptoms return and/or worsen - Recommended to continue cefepime 2gm every 12th hrly till 05/29, 3 more doses likely after discharge - Take Midodrine 10mg as needed if SBP less than 100mm Hg - Hold Eliquis till patient is seen by PCP and blood in urine (Hematuria) resolves - Stop amlodipine 10mg and give if the systolic blood pressure is persistently elevated to 140 If you don't have a PCP, you can make an appointment at the [facility]: 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 Mary Kay Trevino, PGY-1 Status at Discharge Overall status at discharge: patient is back to baseline Time Spent with Patient Time attestation: Total time spent providing and/or coordinating discharge services: Time spent: Greater than 30 minutes Exam Vital Signs Temp Pulse Resp BP Pulse Ox O2 Del Method FiO2 96.9 F 103 H 25 H 122/73 100 Mechanical Ventilation 35 05/28/25 04:00 05/28/25 07:17 05/28/25 07:17 05/28/25 04:00 05/28/25 07:17 05/28/25 04:00 05/28/25 07:17 Narrative Exam Physical Exam: General: Eyes open but does not blink on command, no acute distress. Tracheostomy tube in place. On mechanical ventilator. Skin: Warm, dry, intact. Head: Normocephalic, atraumatic. Cardiovascular: Regular rate and rhythm, no murmur, +S1/S2. Respiratory: Lungs are clear to auscultation, respirations unlabored, no crackles, no wheezing. Gastrointestinal: Soft, nontender, mildly distended. No guarding or rebound tenderness. PEG tube in place. Extremities: No edema, no cyanosis, no clubbing. Discharge Plan Plan Patient Disposition: Xfer Skilled Nsg Fac (SNF) Patient condition on transfer: Stable Care Plan Goals: -Follow-up with PCP within 1 week of discharge. If you do not have appointment, please follow-up with the [facility] with Dr. Vigil. Call [phone] to make an appointment. -Recommended to continue cefepime 2gm every 12th hrly till 05/29, 3 more doses likely after discharge -Take Midodrine 10mg as needed if SBP ,100mm Hg -Hold eliquis till patient is seen by PCP and blood in urine(Hematuria) resolves -Stop amlodipine 10mg and give if the systolic blood pressure is persistently elevated to 140 -Return to ED if symptoms persist or return Prescriptions/Referrals Prescriptions/Med Rec: New midodrine 5 mg Tablet 10 mg PO TID PRN (Reason: SBP <100) Qty: 30 0RF ferrous sulfate 325 mg (65 mg iron) tablet,delayed release (DR/EC) 325 mg PO Q OTHER DAY Qty: 30 0RF Continued multivitamin with minerals Liquid 15 ml feeding tube QDAY melatonin 3 mg Tablet 5 mg feeding tube HS ascorbic acid (vitamin C) 500 mg Tablet 500 mg feeding tube BID Fleet Enema 19-7 gram/118 mL Enema 118 ml KY PRN PRN (Reason: Constipation) aspirin 81 mg Tablet,Chewable 81 mg feeding tube QDAY ezetimibe 10 mg Tablet 10 mg feeding tube QPM simethicone 80 mg Tablet,Chewable 80 mg feeding tube BID lactulose 10 gram/15 mL Solution 20 g feeding tube QDAY bisacodyl 10 mg Suppository 10 mg KY EVERYOTHERDAY PRN (Reason: bowel ) gabapentin 300 mg Capsule 600 mg feeding tube BID atorvastatin 20 mg tablet 20 mg feeding tube QPM sennosides [senna] 8.8 mg/5 mL syrup 5 ml feeding tube BID Changed cetirizine 10 mg Tablet 10 mg feeding tube PRN PRN (Reason: allergy symptoms) Qty: 30 0RF Held apixaban 5 mg tablet 5 mg PO BID 30 Days Qty: 60 0RF Hold Instructions: Resume on 06/15/25. Hold till patient is seen by his PCP Rx Instructions: To be started for DVT treatment on 05/17 Discontinued ferrous sulfate 220 mg (44 mg iron)/5 mL Solution 220 mg PO Q OTHER DAY 21 Days Qty: 55 0RF amlodipine 5 mg Tablet 10 mg feeding tube QDAY Referrals: No Primary/Family,Physician [Primary Care Provider] Patient/Caregiver Discharge Instructions Education Materials: DVT Complications, Bleeding Gastrointestinal, Iron Supplements, When You Have Pneumonia, When to Use Antibiotics, ED Hematuria Print Language: [place] Island[place] Stand Alone Forms: [employer] Award Info., Patient Portal Info Letter Discharge Order Discharge Orders: Discharge (Routine); Ordered 05/28/25 Ordered By: Shayne Vigil Quality Discharge Quality Measures VTE prophylaxis Attestestation MD Attestation I have examined the patient, reviewed labs and imaging findings, discussed the case with the resident(s), and reviewed entered orders. I agree with the plan of care as outlined in this note. Continue to hold anticoagulation for blood-tinged urine most likely secondary to Abbott catheter placement and anticoagulation and patient has history for recurrent hematuria. Follow-up with urology as desired by patient and family. Hold Eliquis until evaluated by primary care provider. Failed DC. SNF unable to complete IV antibiotic course for one additional day. Patient will remain hospitzlized for now. Time Spent: [address] Mary Kay MD
--- NOTE | 2025-05-28 10:58 | PC.SS ---
Follow up note: SS spoke to Ana Lilia from [facility] who is aware pt will return today and confirmed pt requires a RT rider. SS called [facility] and spoke to Jada from [facility] who is aware pt will dc today back to [facility] and they are able to find an RT rider. Bedside nurse, Ángel is aware and is aware.
--- NOTE | 2025-05-28 12:04 | PC.SS ---
Follow up note: SS has cancelled transportation which was setup for 2pm to [facility] with RT rider. SS spoke to Stephen Glover from [facility] and explained pt is requiring IV Cefepime 2grm 2X day am & pm until 05-29-25. Per Anoop, they are requesting to keep pt at the hospital to compete IV antibiotic. [facility] is unable to accommodate.
[2025-05-28] MEDS: INSULIN LISPRO (AdmeLOG) 1 UNIT/0.01 ML UNIT SC (18:17)
[2025-05-28] MEDS: ATORVASTATIN CALCIUM 20 MG TABLET GT (21:03)
[2025-05-29] VITALS (16 sets, daily range): BP systolic 93–141; BP diastolic 59–82; PULSE 92–118; RESP 17–31; TEMP 36.1–37.9; O2SAT 99–100; BMI 37.3
[2025-05-29] MEDS: INSULIN LISPRO (AdmeLOG) 1 UNIT/0.01 ML UNIT SC ×4 (00:49→17:50)
[2025-05-29] MEDS: ACETAMINOPHEN SOL 325 MG/10 ML UDC 650 MG GT (01:17)
[2025-05-29] MEDS: SODIUM CL RT SOL 3% 4 ML NEBU (NON-FORMULARY) INH ×6 (02:11→22:40)
[2025-05-29 05:29] LABS: Basophils # (Auto) 0.0 Thou/mm3 (0.0-0.2); Basophils % (Auto) 0 % (0-2.5); Eosinophils # (Auto) 0.4 Thou/mm3 (0.0-0.5); Eosinophils % (Auto) 5 % (0-10); Hematocrit 26.3 % (41.0-53.0); Immature Granulocytes Auto 0.03 Thou/mm3 (0.00-0.00); Lymphocytes # (Auto) 2.8 Thou/mm3 (1.0-4.8); Lymphocytes % (Auto) 34 % (10-50); Mean Corpuscular HGB Conc 30.4 g/dl (31.0-37.0); Mean Corpuscular Hemoglobin 26.8 pg (25.0-35.0); Mean Corpuscular Volume 88 fL (80-100); Monocytes # (Auto) 0.8 Thou/mm3 (0.0-0.8); Monocytes % (Auto) 9 % (0-12); Neutrophils # (Auto) 4.3 Thou/mm3 (1.8-7.7); Neutrophils % (Auto) 52 % (37-80); Nucleated Red Blood Cell # 0.00 Thou/mm3 (0.00-0.00); Nucleated Red Blood Cell % 0 /100 WBC (0); Platelet Count 272 Thou/mm3 (140-440); RDW Standard Deviation 69.4 fL (35.1-43.9); Red Blood Count 2.99 Miln/mm3 (4.50-5.90); White Blood Count 8.3 Thou/mm3 (3.8-10.6)
[2025-05-29] MEDS: METOCLOPRAMIDE INJ 5 MG/ML VIAL 2 ML IVP ×3 (05:31→22:26)
[2025-05-29 05:33] LABS: Hemoglobin 8.0 g/dL (13.5-16.0)
[2025-05-29 05:46] LABS: Alanine Aminotransferase 10 U/L (10-49); Albumin, Serum 2.6 gm/dL (3.4-4.8); Albumin/Globulin Ratio 0.6 (1.2-2.2); Alkaline Phosphatase 114 U/L (46-116); Anion Gap 5 (7-16); Aspartate Amino Transferase 15 U/L (0-34); BUN/Creatinine Ratio 30 Ratio (12-20); Bilirubin,Total 0.3 mg/dL (0.3-1.2); Blood Urea Nitrogen 21 mg/dL (9-23); Calcium 9.4 mg/dL (8.3-10.6); Calcium (Corrected) 10.5 mg/dL (8.5-10.1); Carbon Dioxide 31.3 mMol/L (20.0-31.0); Chloride 103 mMol/L (98-107); Creatinine (Component) 0.7 mg/dL (0.6-1.3); Estimated Creatinine Clearance 118.9 mL/min (>60); Globulin 4.5 gm/dL (2.3-3.5); Glucose 163 mg/dL (74-106); Osmolality,Calculated 284 (275-295); Potassium 5.0 mMol/L (3.4-5.1); Sodium 139 mMol/L (136-145); Total Protein 7.1 gm/dL (5.7-8.2); eGFR > 60 See Note
[2025-05-29] MEDS: CEFEPIME INJ 2 GM in SODIUM CHLORIDE 0.9% (Popper) 50 ML IV ×3 (08:07→22:26)
[2025-05-29] MEDS: GABAPENTIN 300 MG CAPSULE 600 MG GT ×2 (08:08→22:26)
[2025-05-29] MEDS: ASPIRIN 81 MG CHEW GT (08:08)
--- NOTE | 2025-05-29 11:47 | ESPR_ITS ---
<Statement entered by Amilcar Ortiz MD - 05/29/25 17:24> Patient seen and assessed in hospital bed remains at current baseline, trach and PEG but does open eyes on command. Sputum cultures are positive for Pseudomonas which is sensitive to IV cefepime the patient is currently being treated on. Will continue IV antibiotic regimen tomorrow, patient continues to have low- grade fevers but otherwise white count remains stable. Expect discharge within the next 24 to 48 hours back to facility. I have personally seen and examined the patient. I agree with the resident's assessment and plan as documented below. Amilcar Ortiz DO PGY-2 Internal Medicine - GME Documentation for date of: 05/29/25 Subjective Subjective Interval history: Overnight events: No acute events overnight. Patient was seen and examined at bedside. AM vitals and labs reviewed. Patient does not appear to be in any acute distress at this time. Patient is not opening his eyes. Hematuria seems to have been resolved after holding Eliquis. Hemoglobin 8.0 Pending discharge back to SNF within the next 24 hours after completion of last dose of cefepime. Review of systems otherwise negative except for what is mentioned above. Exam Vital Signs Temp Pulse Resp BP Pulse Ox O2 Del Method FiO2 97.0 F 99 17 117/68 100 Mechanical Ventilation 35 05/29/25 08:00 05/29/25 11:04 05/29/25 08:00 05/29/25 08:00 05/29/25 11:04 05/29/25 08:00 05/29/25 11:04 Narrative Exam Physical Exam: General: Eyes closed, no acute distress. Tracheostomy tube in place. On m echanical ventilator. Skin: Warm, dry, intact. Head: Normocephalic, atraumatic. Cardiovascular: Regular rate and rhythm, no murmur, +S1/S2. Respiratory: Lungs are clear to auscultation, respirations unlabored, no crackles, no wheezing. Gastrointestinal: Soft, nontender, mildly distended. No guarding or rebound tenderness. PEG tube in place. Extremities: No edema, no cyanosis, no clubbing. Objective Labs 05/30/25 05:06 05/30/25 05:06 Labs: Laboratory Results - last 24 hr 05/29/25 04:51 WBC 8.3 RBC 2.99 L Hgb 8.0 L Hct 26.3 L MCV 88 MCH 26.8 MCHC 30.4 L RDW Std Deviation 69.4 H Plt Count 272 D Neut % (Auto) 52 Lymph % (Auto) 34 O[place] % (Auto) 9 Eos % (Auto) 5 Baso % (Auto) 0 Neut # (Auto) 4.3 Lymph # (Auto) 2.8 [place] # (Auto) 0.8 Eos # (Auto) 0.4 Baso # (Auto) 0.0 Immature Gran # (Auto) 0.03 H Absolute Nucleated RBC 0.00 Immature Gran % 0 Nucleated RBC % 0 Sodium 139 Potassium 5.0 Chloride 103 Carbon Dioxide 31.3 H Anion Gap 5 L BUN 21 Creatinine 0.7 Estim Creat Clear Calc 118.9 eGFR > 60 BUN/Creatinine Ratio 30 H Glucose 163 H Calculated Osmolality 284 Calcium 9.4 Corrected Calcium 10.5 H Total Bilirubin 0.3 AST 15 ALT 10 Alkaline Phosphatase 114 Total Protein 7.1 Albumin 2.6 L Globulin 4.5 H Albumin/Globulin Ratio 0.6 L ABG Interpretation ABG results: 05/23/25 23:11 ABG pH 7.35 ABG pCO2 50 H ABG pO2 124 H ABG HCO3 28 H ABG O2 Saturation 99 H ABG Base Excess 2 Quality Measures Quality Measures VTE prophylaxis Advance care planning discussed with:: patient and child Assessment & Plan Assessment Current Active Medications: Generic Name Dose Route Start Last Admin Trade Name Freq PRN Reason Stop Dose Admin Acetaminophen 650 mg 05/29/25 00:56 05/29/25 01:17 Acetaminophen Jolene 325 Mg/10 Ml Udc GT 06/28/25 00:55 650 mg Q6HR PRN Administration Pain 1-3 Or Fever > 100.4 Apixaban 5 mg 05/23/25 22:45 05/28/25 09:18 Apixaban 2.5 Mg Tablet GT 06/13/25 22:44 5 mg On Hold: 05/28/25 09:28 BID IMANI Administration Aspirin 81 mg 05/26/25 09:00 05/29/25 08:08 Aspirin 81 Mg Chew GT 06/25/25 08:59 81 mg QDAY IMANI Administration Atorvastatin Calcium 20 mg 05/25/25 21:00 05/28/25 21:03 Atorvastatin Calcium 20 Mg Tablet GT 06/24/25 20:59 20 mg QPM IMANI Administration Dextrose 25 ml 05/23/25 22:35 Dextrose 50%-Water Inj 50 Ml Syringe IV 06/22/25 22:34 Q15MIN PRN BG 50-70 responsive npo pt Dextrose 50 ml 05/23/25 22:35 Dextrose 50%-Water Inj 50 Ml Syringe IV 06/22/25 22:34 Q15MIN PRN BG <50 OR BG <70 & pt unresponsive Gabapentin 600 mg 05/25/25 21:00 05/29/25 08:08 Gabapentin 300 Mg Capsule GT 06/24/25 20:59 600 mg BID IMANI Administration Glucagon 1 mg 05/23/25 22:35 Glucagon Inj 1 Mg Vial IM Q15MIN PRN BG <70, and no IV access Cefepime HCl 2 gm/ Sodium 50 mls @ 100 mls/hr 05/29/25 07:24 05/29/25 08:07 Chloride IV 06/05/25 07:23 100 mls/hr Q8HR IMANI Administration Insulin Human Lispro 0 unit 05/24/25 06:30 05/29/25 05:34 Insulin Lispro (Admelog) 1 Unit/0.01 Ml Unit SC 06/23/25 06:29 1 unit Q6H IMANI Administration Protocol Metoclopramide HCl 5 mg 05/26/25 14:00 05/29/25 05:31 Metoclopramide Inj 5 Mg/Ml Vial 2 Ml IVP 06/25/25 13:59 5 mg Q8HR IMANI Administration Protocol Midodrine 5 mg 05/27/25 13:55 Midodrine 5 Mg Tablet PO 06/23/25 10:14 TID PRN SBP <100 Pantoprazole Sodium 40 mg 05/25/25 09:00 05/29/25 08:07 Pantoprazole Inj 40 Mg Vial IVP 06/24/25 08:59 40 mg QDAY IMANI Administration Sodium Chloride 4 ml 05/25/25 11:00 05/29/25 11:04 Sodium Cl Rt Jolene 3% 4 Ml Nebu (Non-Formulary) INH 06/24/25 10:59 4 ml Q4HRRT IMANI Administration Plan This patient is a 80-year-old male with a past medical history of CVA, chronic hypoxic respiratory failure status post tracheostomy 2, HTN, T2DM, chronic sacral ulcers, vertebral osteomyelitis, status post PEG tube, chronic Abbott, multiple DVTs, and multiple recurrent admissions who presented to [facility] ED on 05/23 from [facility] for hypotension, cyanosis, and decreased responsiveness. Admitted for management of ventilator associated pneumonia. Patient came in and found to have 2 or more SIRS criteria and was evaluated for sepsis. However, based upon further work-up, sepsis was ruled out. #Ventilator associated pneumonia, left lung #Sepsis ruled out #Status post tracheostomy tube in (2021) Patient was found to be hypotensive, hypothermic, and tachycardia on presentation to ED. Patient is noted to have very frequent and recurrent hospitalizations for ventilator associated pneumonia and/or hospital-acquired pneumonia. The patient is s/p tracheostomy with a tracheostomy tube and requires chronic ventilation. Sepsis ruled out given lack of endorgan damage. SIRS 3/4, qSOFA score 3 PSI/PORT score: Class V, hospitalization recommended Rx: 3 L NS and midodrine given in ED Diagnostic: Chest x-ray 05/23 shows diffuse left lung pneumonia MRSA nares (-) Blood cultures collected 05/23, preliminary no growth after 48 hours' Sputum culture collected 05/24, shows pseudomonas & GNR Plan: Cefepime 2 mg daily (05/23-05/29) Midodrine 5 mg three times daily #UTI, recurrent, ruled out #Chronic Abbott catheter #Hematuria, resolving Patient has extensive history of Pseudomonas UTI. Patient is unable to verbalize if he has any symptoms of UTI, however on admission UA was positive for leukocyte esterase, RBC 466, and WBC 89. On 05/28, patient was noted to have hematuria, so home Eliquis was held. Urine culture collected 05/23, preliminary results Yeast 20,000-30,000 colonies Plan: Abbott catheter exchanged 05/23 Cefepime 2 mg daily (05/23-05/29) Hold home Eliquis #History of significant bilateral DVTs, on Eliquis Patient has a history of extensive DVTs bilaterally. Patient was initially put on Eliquis for management of these DVTs, but patient had noted drop in hemoglobin and hematuria during previous admission. Attempted to place IVC filter for patient, but unsuccessful at this institution. Patient was transferred to [facility] in [place] for IVC filter, however physicians noted that the patient could be managed with pharmaceutical anticoagulation. Plan: Home Eliquis 5 mg twice daily, held given hematuria #Normocytic anemia, chronic #Thrombocytosis, resolved Patient noted to have hemoglobin of 8.9 on admission. MCV 85. Patient has a long history of normocytic anemia. Platelets elevated at 454 on admission. Thrombocytosis is likely reactive to infection. Plan: Continue to monitor, transfuse if hemoglobin less than 7 per protocol #Multistage decubitus ulcer #Sacral ulcer stage I, improving #Gluteal ulcer stage II On examination during admission, sacral ulcer improved from last admission epidermis intact. Bilateral gluteal ulcers stage 2, left lateral leg ulcer. - wound care PRN #HTN Home medication of hypertension is amlodipine 10 mg - Continue holding amlodipine, consider resuming when hypotension resolves #NIDDM 2 On glucose 141, last A1c 04/25/2025 was 8.4 -Sliding scale insulin - Fingerstick blood sugar checks Q6HR #Chronic encephalopathy 2/2 #S/P CVA - At his normal baseline #S/P PEG Tube -Registered dietitian referral -Glucerna 1.2 goal rate 65 ml/h, if no IVF give 25 ml/h free water flushes, pro stat sugar free 30 ml twice daily with water flushes Health Maintenance: DVT Prophylaxis: N/A GI Prophylaxis: Protonix Bowel: N/A Diet: Glucerna 1.2 goal rate 65 ml/h, if no IVF give 25 ml/h free water flushes, pro stat sugar free 30 ml twice daily with water flushes Abbott: Yes Lines: Peripheral IV, tracheostomy tube, PEG tube Antibiotics: Cefepime (05/23-05/29) Code Status: FULL Patient seen and examined with attending Dr. Deluna and senior resident Dr. Ortiz (PGY-2) Ryland Trevino, PGY-1 Attending Provider Attestation/Addendum I have discussed and was present for the essential components of the history, physical examination, diagnosis, and treatment plan with the resident. I agree with the patient's care as documented by the resident and amended herein by me. Hipolito Deluna DO. Although this document has been carefully reviewed, there may still be some phonetic and other typographical errors. These errors are purely grammatical due to imperfections in the software program and should not be construed in any way to compromise the substance of the patient's medical care during this visit.
[2025-05-29] MEDS: ATORVASTATIN CALCIUM 20 MG TABLET GT (22:26)
[2025-05-30] VITALS: BP 122/73; PULSE 113; PULSE 114; RESP 20; RESP 25; TEMP 36.7; O2SAT 100
[2025-05-30] MEDS: ACETAMINOPHEN SOL 325 MG/10 ML UDC 650 MG GT (00:34)
[2025-05-30] MEDS: INSULIN LISPRO (AdmeLOG) 1 UNIT/0.01 ML UNIT SC (00:41)
[2025-05-30] MEDS: SODIUM CL RT SOL 3% 4 ML NEBU (NON-FORMULARY) INH ×2 (02:30→06:23)
[2025-05-30 02:33] VITALS: PULSE 104; PULSE 106; RESP 23; O2SAT 100
[2025-05-30 04:00] VITALS: BP 111/66; PULSE 108; PULSE 24; RESP 11; RESP 23; TEMP 36.7; O2SAT 100
[2025-05-30 05:19] VITALS: BMI 37.0
[2025-05-30 05:36] LABS: Basophils # (Auto) 0.0 Thou/mm3 (0.0-0.2); Basophils % (Auto) 0 % (0-2.5); Eosinophils # (Auto) 0.4 Thou/mm3 (0.0-0.5); Eosinophils % (Auto) 5 % (0-10); Hematocrit 27.9 % (41.0-53.0); Immature Granulocytes Auto 0.03 Thou/mm3 (0.00-0.00); Lymphocytes # (Auto) 3.0 Thou/mm3 (1.0-4.8); Lymphocytes % (Auto) 32 % (10-50); Mean Corpuscular HGB Conc 30.5 g/dl (31.0-37.0); Mean Corpuscular Hemoglobin 26.6 pg (25.0-35.0); Mean Corpuscular Volume 87 fL (80-100); Monocytes # (Auto) 0.9 Thou/mm3 (0.0-0.8); Monocytes % (Auto) 10 % (0-12); Neutrophils # (Auto) 5.0 Thou/mm3 (1.8-7.7); Neutrophils % (Auto) 53 % (37-80); Nucleated Red Blood Cell # 0.00 Thou/mm3 (0.00-0.00); Nucleated Red Blood Cell % 0 /100 WBC (0); Platelet Count 239 Thou/mm3 (140-440); RDW Standard Deviation 68.9 fL (35.1-43.9); Red Blood Count 3.20 Miln/mm3 (4.50-5.90); White Blood Count 9.4 Thou/mm3 (3.8-10.6)
[2025-05-30] MEDS: METOCLOPRAMIDE INJ 5 MG/ML VIAL 2 ML IVP (05:40)
[2025-05-30] MEDS: CEFEPIME INJ 2 GM in SODIUM CHLORIDE 0.9% (Popper) 50 ML IV (05:41)
[2025-05-30 06:00] LABS: Hemoglobin 8.5 g/dL (13.5-16.0)
[2025-05-30 06:17] LABS: Alanine Aminotransferase 9 U/L (10-49); Albumin, Serum 2.6 gm/dL (3.4-4.8); Albumin/Globulin Ratio 0.6 (1.2-2.2); Alkaline Phosphatase 113 U/L (46-116); Anion Gap 7 (7-16); Aspartate Amino Transferase 18 U/L (0-34); BUN/Creatinine Ratio 24 Ratio (12-20); Bilirubin,Total 0.3 mg/dL (0.3-1.2); Blood Urea Nitrogen 19 mg/dL (9-23); Calcium 9.6 mg/dL (8.3-10.6); Calcium (Corrected) 10.7 mg/dL (8.5-10.1); Carbon Dioxide 31.3 mMol/L (20.0-31.0); Chloride 101 mMol/L (98-107); Creatinine (Component) 0.8 mg/dL (0.6-1.3); Estimated Creatinine Clearance 103.5 mL/min (>60); Globulin 4.7 gm/dL (2.3-3.5); Glucose 164 mg/dL (74-106); Osmolality,Calculated 283 (275-295); Potassium 5.0 mMol/L (3.4-5.1); Sodium 139 mMol/L (136-145); Total Protein 7.3 gm/dL (5.7-8.2); eGFR > 60 See Note
[2025-05-30 06:23] VITALS: PULSE 103; PULSE 107; RESP 24; RESP 26; O2SAT 100
[2025-05-30 07:27] VITALS: RESP 26
[2025-05-30 08:00] VITALS: BP 117/71; PULSE 103; PULSE 106; RESP 30; TEMP 36.9; O2SAT 100
[2025-05-30] MEDS: ASPIRIN 81 MG CHEW GT (08:35)
[2025-05-30] MEDS: GABAPENTIN 300 MG CAPSULE 600 MG GT (08:35)
--- NOTE | 2025-05-30 09:02 | PC.SS ---
Update: IV antibiotic course completed. Plan is to d/c patient back to [facility] at the [facility].
--- NOTE | 2025-05-30 09:02 | PC.SS ---
RAILROAD TRACK REPAIR SUPERVISOR confirmed with [facility]; that facility will accept patient back. Nurse to nurse report to be called to [phone].
--- NOTE | 2025-05-30 09:09 | PC.SS ---
Transport scheduled for 11:00 am today. [facility] to transport. PLATFORM OPERATIONS DIRECTOR notified facility, bedside nurse and respiratory staff. PLATFORM OPERATIONS DIRECTOR attempted phone call to inform spouse. No response, unable to leave voicemail.
--- NOTE | 2025-05-30 12:44 | ESDS_ITS ---
Planned Discharge Date 05/30/25 DS: Providers Provider Date of admission: 05/23/25 22:31 Primary care physician: Physician No Primary/Family Admitting Provider: Sofia Marquez MD Attending Provider on Admission: Michael Deluna DO Consults: 05/23/25 22:28 Referral Registered Dietitian Stat Comment: PEG tube 05/24/25 05:17 Referral Wound Care Urgent Comment: Breakdown to coccyx/buttocks areas, and more. Attending Provider on DC: Amilcar Ortiz MD Discharging Provider: Amilcar Ortiz MD DS: Diagnosis Problem List Completed Was Problem List Reviewed/Reconciled?: Yes Hospital Course Hospital Course Hospital course: 80-year-old male with a past medical history of CVA, chronic hypoxic respiratory failure status post tracheostomy 2, HTN, T2DM, chronic sacral ulcers, vertebral osteomyelitis, status post PEG tube, chronic Abbott, multiple DVTs, and multiple recurrent admissions who presented to [facility] ED on 05/23 from [facility] for hypotension, cyanosis, and decreased responsiveness. Admitted for management of ventilator associated pneumonia, with sepsis ruled out given lack of endorgan damage. The patient was very recently discharged on 05/17 for septic shock secondary to pneumonia and UTI. During that hospitalization, the patient was started on Zosyn and discharged on amoxicillin/clavulanate to complete his course of antibiotics. After returning to his SNF, the patient initially appeared to do well, however on 05/23, patient was brought in for the reasons as stated previously. The patient was initially treated with cefepime and vancomycin, however blood cultures came back negative and urine culture only grew yeast that was likely contaminant. Endotracheal tube secretion culture did grow GNR preliminarily, so vancomycin was stopped. The secretions culture would then differentiate into Pseudomonas. On 05/28, the patient had stable labs and stable vitals and did not appear to be in any acute distress. Patient is medically cleared to be discharged back to his SNF and will continue cefepime until 05/29 to complete his course of IV antibiotics for ventilator associated pneumonia. It is noted that at this point, the patient is likely colonized with those bacteria given his repeat infections. Additionally, patient was noted to have hematuria on 05/28, but this is not a new issue for the patient as he has had this problem in the past on Eliquis and the patient was continued on Eliquis regardless. We will hold the Eliquis for now, with plans for the patient to follow up on it outpatient. 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 Tracheostomy tube in place. On mechanical ventilator. Skin: Warm, dry, intact. Head: Normocephalic, atraumatic. Cardiovascular: Regular rate and rhythm, no murmur, +S1/S2. Respiratory: Lungs are clear to auscultation, respirations unlabored, no crackles, no wheezing. Gastrointestinal: Soft, nontender, mildly distended. No guarding or rebound tenderness. PEG tube in place. Extremities: No edema, no cyanosis, no clubbing. Discharge Plan Plan Patient Disposition: [facility] Patient condition on transfer: Stable Care Plan Goals: -Follow-up with PCP within 1 week of discharge. If you do not have appointment, [facility] Vigil. Call [phone] to make an appointment. -Take Midodrine 10mg as needed if SBP ,100mm Hg -Hold eliquis till patient is seen by PCP and blood in urine(Hematuria) resolves -Stop amlodipine 10mg and give if the systolic blood pressure is persistently elevated to 140 -Ask PCP to monitor calcium levels and do workup if necessary -Ask PCP for follow-up CT Abd/P with oral and IV contrast for abdominal mass seen incidentally on prior studies -Return to ED if symptoms persist or return Prescriptions/Referrals Prescriptions/Med Rec: New midodrine 5 mg Tablet 10 mg PO TID PRN (Reason: SBP <100) Qty: 30 0RF ferrous sulfate 325 mg (65 mg iron) tablet,delayed release (DR/EC) 325 mg PO Q OTHER DAY Qty: 30 0RF Continued multivitamin with minerals Liquid 15 ml feeding tube QDAY melatonin 3 mg Tablet 5 mg feeding tube HS ascorbic acid (vitamin C) 500 mg Tablet 500 mg feeding tube BID Fleet Enema 19-7 gram/118 mL Enema 118 ml [place] PRN PRN (Reason: Constipation) aspirin 81 mg Tablet,Chewable 81 mg feeding tube QDAY ezetimibe 10 mg Tablet 10 mg feeding tube QPM simethicone 80 mg Tablet,Chewable 80 mg feeding tube BID lactulose 10 gram/15 mL Solution 20 g feeding tube QDAY bisacodyl 10 mg Suppository 10 mg [place] EVERYOTHERDAY PRN (Reason: bowel ) gabapentin 300 mg Capsule 600 mg feeding tube BID atorvastatin 20 mg tablet 20 mg feeding tube QPM sennosides [senna] 8.8 mg/5 mL syrup 5 ml feeding tube BID Changed cetirizine 10 mg Tablet 10 mg feeding tube PRN PRN (Reason: allergy symptoms) Qty: 30 0RF Held apixaban 5 mg tablet 5 mg PO BID 30 Days Qty: 60 0RF Hold Instructions: Resume on 06/15/25. Hold till patient is seen by his PCP Rx Instructions: To be started for DVT treatment on 05/17 Discontinued ferrous sulfate 220 mg (44 mg iron)/5 mL Solution 220 mg PO Q OTHER DAY 21 Days Qty: 55 0RF amlodipine 5 mg Tablet 10 mg feeding tube QDAY Referrals: No Primary/Family,Physician [Primary Care Provider] Patient/Caregiver Discharge Instructions Education Materials: DVT Complications, Bleeding Gastrointestinal, Iron Supplements, When You Have Pneumonia, When to Use Antibiotics, ED Hematuria Print Language: Armenian Stand Alone Forms: Maria Isabel Award Info., Patient Portal Info Letter Discharge Order Discharge Orders: Discharge (Routine); Ordered 05/30/25 Ordered By: Shayne Vigil Quality Discharge Quality Measures VTE prophylaxis MD Attestestation MD Attestation I have discussed and was present for the essential components of the discharge history, physical examination, diagnosis, and discharge treatment plan with the resident. I agree with the patient's discharge care as documented by the resident and amended herein by me. Hipolito Deluna, . The patient understood all discharge instructions, all questions were answered satisfactorily. The patient was instructed to return to the Emergency Department is symptoms worsened or persisted. Although this document has been carefully reviewed, there may still be some phonetic and other typographical errors. These errors are purely grammatical due to imperfections in the software program and should not be construed in any way to compromise the substance of the patient's medical care during this visit.
== END 2025-05-30 11:20 | disposition skilled nursing facility (03) | DRG 871 ==
LOC: SERX 17:18 → SERHOLD 22:34 → S2NX 05-24 00:08
PROVIDERS: Admitting Provider Student in an Organized Health Care Education/Training Program; Emergency Provider Emergency Medicine; Visit Provider Student in an Organized Health Care Education/Training Program
DX: A41.9 Sepsis, unspecified organism (principal); G93.41 Metabolic encephalopathy; R65.21 Severe sepsis with septic shock; N39.0 Urinary tract infection, site not specified; J95.851 Ventilator associated pneumonia; J96.11 Chronic respiratory failure with hypoxia; E78.5 Hyperlipidemia, unspecified; I10 Essential (primary) hypertension; N40.0 Benign prostatic hyperplasia without lower urinary tract symptoms; E11.9 Type 2 diabetes mellitus without complications; I95.89 Other hypotension; D75.839 Thrombocytosis, unspecified; L89.151 Pressure ulcer of sacral region, stage 1; Z79.01 Long term (current) use of anticoagulants; Z93.1 Gastrostomy status; L89.322 Pressure ulcer of left buttock, stage 2; D64.9 Anemia, unspecified; L89.312 Pressure ulcer of right buttock, stage 2; Z93.0 Tracheostomy status; Z79.4 Long term (current) use of insulin; Z79.82 Long term (current) use of aspirin; Z79.84 Long term (current) use of oral hypoglycemic drugs; Z79.899 Other long term (current) drug therapy; Z86.718 Personal history of other venous thrombosis and embolism; Z86.14 Personal history of Methicillin resistant Staphylococcus aureus infection; Z87.01 Personal history of pneumonia (recurrent)
CPT/HCPCS: 36415; 36600; 71045; 80048; 80053; 80202; 81001; 82803; 83605; 83735; 83880; 84100; 84145; 84484; 85025; 85610; 85730; 87040; 87077; 87081; 87086; 87106; 87186; 87205; 87400; 87811; 93005; 94002; 94003; 94640; 94667; 96365; 96366; 96375; 99285; J0692; J1815; J1956; J2470; J2543; J2765; J3373; J3475; J7030; J7050; A9270

== ENCOUNTER → 2025-06-08 | Outpatient (CLI) | payer MEDICARE, OTHER, MEDICAID, SELFPAY ==
[2025-06-08 17:37] LABS: Basophils # (Auto) 0.0 Thou/mm3 (0.0-0.2); Basophils % (Auto) 0 % (0-2.5); Eosinophils # (Auto) 0.3 Thou/mm3 (0.0-0.5); Eosinophils % (Auto) 3 % (0-10); Hematocrit 25.1 % (41.0-53.0); Immature Granulocytes Auto 0.03 Thou/mm3 (0.00-0.00); Lymphocytes # (Auto) 2.7 Thou/mm3 (1.0-4.8); Lymphocytes % (Auto) 27 % (10-50); Mean Corpuscular HGB Conc 31.9 g/dl (31.0-37.0); Mean Corpuscular Hemoglobin 26.5 pg (25.0-35.0); Mean Corpuscular Volume 83 fL (80-100); Monocytes # (Auto) 0.8 Thou/mm3 (0.0-0.8); Monocytes % (Auto) 8 % (0-12); Neutrophils # (Auto) 6.1 Thou/mm3 (1.8-7.7); Neutrophils % (Auto) 61 % (37-80); Nucleated Red Blood Cell # 0.00 Thou/mm3 (0.00-0.00); Nucleated Red Blood Cell % 0 /100 WBC (0); Platelet Count 425 Thou/mm3 (140-440); RDW Standard Deviation 61.5 fL (35.1-43.9); Red Blood Count 3.02 Miln/mm3 (4.50-5.90); White Blood Count 9.9 Thou/mm3 (3.8-10.6)
[2025-06-08 17:50] LABS: Hemoglobin 8.0 g/dL (13.5-16.0)
[2025-06-08 17:52] LABS: Alanine Aminotransferase 23 U/L (10-49); Albumin, Serum 2.9 gm/dL (3.4-4.8); Albumin/Globulin Ratio 0.6 (1.2-2.2); Alkaline Phosphatase 138 U/L (46-116); Anion Gap 12 (7-16); Aspartate Amino Transferase 30 U/L (0-34); BUN/Creatinine Ratio 30 Ratio (12-20); Bilirubin,Total 0.4 mg/dL (0.3-1.2); Blood Urea Nitrogen 24 mg/dL (9-23); Calcium 8.5 mg/dL (8.3-10.6); Calcium (Corrected) 9.4 mg/dL (8.5-10.1); Carbon Dioxide 23.9 mMol/L (20.0-31.0); Chloride 101 mMol/L (98-107); Creatinine (Component) 0.8 mg/dL (0.6-1.3); Globulin 4.9 gm/dL (2.3-3.5); Glucose 191 mg/dL (74-106); Osmolality,Calculated 282 (275-295); Potassium 4.2 mMol/L (3.4-5.1); Sodium 137 mMol/L (136-145); Total Protein 7.8 gm/dL (5.7-8.2); eGFR > 60 See Note
== END | disposition home or self-care (01) ==
PROVIDERS: PCP Hospitalist; Referring Provider Hospitalist; Visit Provider Hospitalist
DX: J96.91 Respiratory failure, unspecified with hypoxia (principal); N40.0 Benign prostatic hyperplasia without lower urinary tract symptoms; E11.43 Type 2 diabetes mellitus with diabetic autonomic (poly)neuropathy; R50.9 Fever, unspecified
CPT/HCPCS: 36415; 80053; 85025; 87086

== ENCOUNTER → 2025-07-16 | Outpatient (CLI) | payer OTHER, MEDICAID, SELFPAY ==
[2025-07-16 14:01] LABS: Alanine Aminotransferase 41 U/L (10-49); Albumin, Serum 4.3 gm/dL (3.4-4.8); Albumin/Globulin Ratio 0.9 (1.2-2.2); Alkaline Phosphatase 140 U/L (46-116); Anion Gap 13 (7-16); Aspartate Amino Transferase 36 U/L (0-34); BUN/Creatinine Ratio 53 Ratio (12-20); Bilirubin,Total 0.3 mg/dL (0.3-1.2); Blood Urea Nitrogen 53 mg/dL (9-23); Calcium 10.1 mg/dL (8.3-10.6); Calcium (Corrected) 10.1 mg/dL (8.5-10.1); Carbon Dioxide 24.3 mMol/L (20.0-31.0); Chloride 101 mMol/L (98-107); Creatinine (Component) 1.0 mg/dL (0.6-1.3); Globulin 4.8 gm/dL (2.3-3.5); Glucose 261 mg/dL (74-106); Osmolality,Calculated 299 (275-295); Potassium 3.9 mMol/L (3.4-5.1); Sodium 138 mMol/L (136-145); Total Protein 9.1 gm/dL (5.7-8.2); eGFR > 60 See Note
[2025-07-16 14:03] LABS: Basophils # (Auto) 0.0 Thou/mm3 (0.0-0.2); Basophils % (Auto) 0 % (0-2.5); Eosinophils # (Auto) 0.4 Thou/mm3 (0.0-0.5); Eosinophils % (Auto) 4 % (0-10); Hematocrit 34.9 % (41.0-53.0); Hemoglobin 10.7 g/dL (13.5-16.0); Immature Granulocytes Auto 0.03 Thou/mm3 (0.00-0.00); Lymphocytes # (Auto) 2.8 Thou/mm3 (1.0-4.8); Lymphocytes % (Auto) 30 % (10-50); Mean Corpuscular HGB Conc 30.7 g/dl (31.0-37.0); Mean Corpuscular Hemoglobin 25.4 pg (25.0-35.0); Mean Corpuscular Volume 83 fL (80-100); Monocytes # (Auto) 0.7 Thou/mm3 (0.0-0.8); Monocytes % (Auto) 8 % (0-12); Neutrophils # (Auto) 5.2 Thou/mm3 (1.8-7.7); Neutrophils % (Auto) 57 % (37-80); Nucleated Red Blood Cell # 0.00 Thou/mm3 (0.00-0.00); Nucleated Red Blood Cell % 0 /100 WBC (0); Platelet Count 289 Thou/mm3 (140-440); RDW Standard Deviation 54.4 fL (35.1-43.9); Red Blood Count 4.21 Miln/mm3 (4.50-5.90); White Blood Count 9.1 Thou/mm3 (3.8-10.6)
== END | disposition home or self-care (01) ==
LOC: SLDO 12:19
PROVIDERS: Referring Provider Hospitalist; Visit Provider Hospitalist
DX: R60.1 Generalized edema (principal); E11.65 Type 2 diabetes mellitus with hyperglycemia; J96.91 Respiratory failure, unspecified with hypoxia; Z43.1 Encounter for attention to gastrostomy
CPT/HCPCS: 36415; 80053; 85025

== ENCOUNTER 2025-08-19 09:31 | Inpatient (IN) | payer OTHER, SELFPAY ==
[2025-08-19] VITALS (70 sets, daily range): BP systolic 77–140; BP diastolic 54–101; PULSE 86–145; RESP 9–35; TEMP 36.7–39.1; O2SAT 81–100; BMI 35.0
--- NOTE | 2025-08-19 09:37 | PD.EDAMS ---
Altered Mental Status RME/HPI General Chief Complaint: Altered Mental Status Stated Complaint: HYPERTENSION Time Seen by Provider: 08/19/25 09:41 Arrival date/time: 08/19/25 09:31 RME / HPI RME / HPI narrative: DR. ORANTES MAIN ED EVALUATION: 80 y/o nonverbal male with Hx of CVA with tracheostomy, Type II DM, and HTN BIBA from [facility] presents with decreased mentation and elevated heart rate. Staff reported heart rate between 110-120, hypotension, baseline GCS of 11 with ability to track, decreased urinary output in german and increased volume of the abdomen over the last 3 days. Per EMS, patient was on BVM the entire ride down and is minimally responsive to painful stimuli. Vitals en route demonstrated HR of 115, blood sugar of 402 mg/dL, blood pressure of 96/48, and oxygen saturation of 98% on 15 L O2 via BVM. Patient is a full code. Related Data Home Medications ?Medication ?Instructions ?Recorded ?Confirmed ascorbic acid (vitamin C) 500 mg 500 mg feeding tube BID 01/05/22 08/20/25 tablet ezetimibe 10 mg tablet 10 mg feeding tube QPM 01/05/22 08/20/25 multivitamin with minerals 15 ml feeding tube QDAY 01/05/22 08/20/25 lactulose 10 gram/15 mL oral 20 g feeding tube QDAY 08/14/22 08/20/25 solution simethicone 80 mg chewable tablet 80 mg feeding tube BID 08/14/22 08/20/25 bisacodyl 10 mg rectal suppository 10 mg ME EVERYOTHERDAY PRN bowel 11/27/22 08/20/25 gabapentin 300 mg capsule 600 mg feeding tube BID 11/27/22 08/20/25 atorvastatin 20 mg tablet 20 mg feeding tube QPM 05/25/25 08/20/25 sennosides 8.8 mg/5 mL oral syrup 5 ml feeding tube BID 05/25/25 08/20/25 (senna) apixaban 2.5 mg tablet (Eliquis) 2.5 mg PO BID 08/20/25 08/20/25 diphenhydramine HCl 25 mg tablet 25 mg feeding tube Q4H 08/20/25 08/20/25 (Allergy Relief (diphenhydramine)) oxycodone 5 mg tablet 5 mg feeding tube Q6H PRN pain 08/20/25 08/20/25 Previous Rx's ?Medication ?Instructions ?Recorded cetirizine 10 mg tablet 10 mg feeding tube PRN PRN allergy 05/28/25 symptoms #30 tabs midodrine 5 mg tablet 10 mg (2 x 5 mg) PO TID PRN SBP 05/28/25 <100 #30 tabs cefuroxime axetil 500 mg tablet 500 mg PO BID 8 days #16 tabs 09/05/25 Allergies Allergy/AdvReac Type Severity Reaction Status Date / Time adhesive tape Allergy Rash Verified 05/16/25 18:05 NYLA Inhibitors AdvReac Severe Upper Verified 04/20/24 14:37 Airway Edema ARB-Angiotensin Receptor AdvReac Severe Upper Verified 04/20/24 14:37 Antagonist Airway Edema Review of Systems Review of Systems ROS Unobtainable: unobtainable due to mental status, unobtainable due to medical condition and due to endotracheal tube Past Medical History Past Medical History NEUROLOGIC: Positive Neurological Disorders and Cerebrovascular Accident CARDIAC: Positive Hypercholesterolemia, Edema and Hypertension RESPIRATORY: Positive Asthma and Pneumonia GASTROINTESTINAL: Positive Gastrointestinal Bleed and Obstructive Bowel GENITOURINARY: Positive Genitourinary Disorders, Renal Disease and Benign Prostatic Hyperplasia MUSCULOSKELETAL: Positive Musculoskeletal Disorders, Arthritis and Degenerative Joint Disease ENDOCRINE: Positive Endocrine Disorders and Diabetes Mellitus Type 2 OTHER HISTORY: Positive Hospitalization, Falls, Blood Transfusions and MRSA Surgical History SURGICAL: Positive Abdominal Surgery, Tracheostomy, Gastrostomy and Joint Replacement ED Exam Narrative Physical exam: GENERAL APPEARANCE: minimally responsive, well-developed, well-nourished, no acute distress, trach in place. VITALS: All vitals were reviewed and the pulse ox is 100% on mechanical ventilation, which is normal according to my interpretation. HEENT: Normocephalic, atraumatic; pupils equal, round, reactive to light; EOMI; mucous membranes pink, moist; oropharynx clear NECK: Supple LUNGS: CTABL; no wheezes, no rales, no rhonchi HEART: Regular rate, regular rhythm; normal S1, S2; no murmurs ABDOMEN: moderately distended; normal BS; soft, no tenderness, no guarding, no rebound; no masses, no organomegaly, no hernia BACK: no CVA tenderness EXTREMITIES: atraumatic; no edema NEUROLOGIC: cranial nerves II-XII grossly intact; no focal sensory or motor deficits PSYCHIATRIC: unassessable at this time SKIN: warm, dry, normal color; no rashes Course Course Course Narrative: 1000: EKG was sent to Dr. Tarango. Sepsis alert initiated. Orders made at this time are congruent with ED Adult Sepsis Order List. Re-evaluation is to be completed. Sepsis reassessment performed consisting of lab review, vitals, physical exam including auscultation of heart, lungs, and visual evaluation of capillary refills, mucosal membranes and extremities. 1151: Blood pressure of 86/60. Second liter of fluids order. 1700: Right femoral central line successfully placed by Cornelio Ruff NP. Please see procedure note in addendum. Quality Measures Current suspected stage: sepsis Possible source: pulmonary Blood cultures ordered: yes Antibiotic ordered: Yes Pertinent labs: 08/19/25 08/19/25 08/19/25 09:48 09:51 14:14 Lactic Acid 2.6 H mMol/L 2.4 H mMol/L (0.4-2.0) (0.4-2.0) Procalcitonin 0.57 H ng/ml (0.0-0.49) sepsis Orders Category Date Time Status Bedside COVID-19 Antigen Test NOW Care 08/19/25 10:28 Completed Bedside Influenza A&B Antigen Test NOW Care 08/19/25 10:[address] Screening NOW Care 08/19/25 10:51 Completed Technology Administrator NOW Care 08/19/25 09:41 Completed Technology Administrator Q4H START 00 Care 08/19/25 12:49 Completed EKG (ED ONLY) *Do not use* NOW Care 08/19/25 09:41 Completed Consult to Cardiology Routine Cons 08/19/25 14:34 Ordered CA echo doppler complete Stat Exams 08/19/25 14:[address] abdomen pelvis wo con Stat Exams 08/19/25 10:[address] head/brain wo con Stat Exams 08/19/25 10:51 Completed EKG (ED Only) Stat Exams 08/19/25 09:41 Draft XR chest 1V portable Stat Exams 08/19/25 09:41 Completed B-Type Natriuretic Peptide Stat Lab 08/19/25 09:48 Completed Blood Culture (Lab) Stat Lab 08/19/25 09:51 Completed CBC Stat Lab 08/19/25 09:48 Completed Comprehensive Metabolic Panel Stat Lab 08/19/25 09:48 Completed Lactate (Lactic Acid) Stat Lab 08/19/25 09:51 Completed Lactic Acid, 3 HR Stat Lab 08/19/25 14:14 Completed Lipase Stat Lab 08/19/25 09:48 Completed Magnesium Stat Lab 08/19/25 09:48 Completed Partial Thromboplastin Time Stat Lab 08/19/25 09:48 Completed Procalcitonin Stat Lab 08/19/25 09:48 Completed Prothrombin Time with INR Stat Lab 08/19/25 09:48 Completed Sputum Culture and Gram Stain Stat Lab 08/19/25 09:45 Completed Troponin I Q6H Lab 08/19/25 14:14 Completed Troponin I Stat Lab 08/19/25 09:48 Completed Urinalysis Stat Lab 08/19/25 12:10 Completed Urine Culture Stat Lab 08/19/25 12:46 Completed Acetaminophen Ivpb [Ofirmev Inj] Med 08/19/25 10:05 Discontinued 1,000 mg in 100 ml IV X1 Sodium Chloride 0.9% 1000 ml [Ns] 1,000 ml Med 08/19/25 09:41 Discontinued IV 999 mls/hr Sodium Chloride 0.9% 1000 ml [Ns] 1,000 ml Med 08/19/25 12:00 Discontinued IV 999 mls/hr cefTRIAXone/D5w 1gm IV premix [Rocephin/D5w 1gm IV Med 08/19/25 10:27 Discontinued premix] 1 gm in 50 ml IV X1 Volume Ventilator Routine RT 08/19/25 09:40 Active Vital Signs Vital signs: Vital Signs Pulse Rate 112 H 08/19/25 09:36 Respiratory Rate 22 H 08/19/25 09:36 Blood Pressure 99/64 08/19/25 09:36 Pulse Oximetry (%) 100 08/19/25 09:36 Oxygen Delivery Method Mechanical Ventilation 08/19/25 09:36 Fraction of Inspired Oxygen 50 08/19/25 09:36 PROCEDURES: Procedure Comment 1420: Unable to obtain peripheral IV access. Successfully placed peripheral IV under US guidance to the left AC. 1537: IV in left AC accidentally removed. Unable to obtain peripheral IV access. Successfully placed peripheral IV under US guidance to the right AC. Altered Mental Status MDM Narrative MDM Narrative:: Scribe Attestation: I, Maribell Haley, am scribing for and in the presence of Dr. Orantes. Provider Notation: Although this document has been carefully reviewed, there may still be some phonetic and other typographical errors. These errors are purely grammatical due to imperfections in the software program and should not be construed in any way to compromise the substance of the patient's medical care during this visit. Patient data External records reviewed:: [facility] previous records (Reviewed prior ED records from 05/23/25. Patient was seen for Altered level of consciousness.), EMS form and [facility] records Clinical information provided by:: EMS Social determinants that could affect healthcare access:: housing (SNF) Patient has the following chronic illnesses:: Hypercholesterolemia, Edema, Hypertension, Asthma, Gastrointestinal Bleed, Obstructive Bowel, Renal Disease, Benign Prostatic Hyperplasia, Arthritis, Degenerative Joint Disease, Diabetes Mellitus Type 2 How is presenting disease/condition affected by chronic disease/condition?: exacerbated by Evaluation data The following diagnostics were reviewed and interpreted by me:: lab results, radiology exam(s) and EKG tracing(s) (EKG manual reading, my interpretation: sinus tachycardia, rate: 111 bpm, mild ST elevation in lead II, V, and V2, with ST depression in aVR.) Lab and/or radiology exams considered but not ordered:: None Interpretation Summary: RADIOLOGY Chest X-Ray: FINDINGS: Mild enlargement cardiac contour Prominent vascular congestion Significant pneumonia left base obscuring detail left hemidiaphragm with large left pleural effusion IMPRESSION: Significant pneumonia left base with large left pleural effusion Head/Brain CT: Findings: No significant ventricular enlargement. Old infarcts right frontal lobe right temporal lobe Intra-axial or extra-axial hemorrhage density is not seen. No mass effect or midline shift Basal cisterns are not remarkable. Fourth ventricle is midline. Cranial vault intact. Impression: Negative for acute hemorrhage, mass effect or midline shift Advise clinical correlation and follow-up accordingly Abdomen/Pelvis CT: Findings: Bibasilar pneumonia with significant bilateral pleural effusions Prominent pericardial effusion measuring up to 33 mm Mild enlargement cardiac contour No visualized liver or splenic lesion, hepatomegaly 25 cm Gastrostomy tube in the stomach No gallstones No pancreatic mass Calcified probable cyst upper pole right kidney No hydronephrosis renal or ureteral calculi Normal appendix No bowel obstruction No bowel obstruction Moderate prostatomegaly Urinary bladder wall thickening, prominent Severe osteopenia IMPRESSION: Significant bibasilar pneumonia Significant bilateral pleural effusions Prominent pericardial effusion measuring up to 33 mm Gastrostomy tube satisfactory position No bowel obstruction No bowel obstruction or diverticulitis Moderate prostatomegaly Marked thickening of the urinary bladder wall, differential would include cystitis, urinary tract outflow obstruction secondary to prostatomegaly, bladder carcinoma not excluded, clinical correlation advised and follow-up recommended Medications / Prescriptions Medications or Prescriptions considered but not ordered:: None Medication administrations:: Medication Administration History Discontinued Medications Acetaminophen (Acetaminophen 325 Mg Tablet) 650 mg PO Q6H PRN PRN Reason: Fever >100.4 Stop: 09/18/25 15:09 Acetaminophen (Acetaminophen 325 Mg Tablet) 650 mg PO Q6H PRN PRN Reason: PAIN SCALE 1-3 (mild Stop: 09/18/25 15:14 Last Admin: 09/04/25 11:15 Dose: 650 mg Documented By: Admin: 09/03/25 12:07 Dose: 650 mg Documented By: Admin: 09/02/25 20:15 Dose: 650 mg Documented By: Admin: 09/02/25 12:05 Dose: 650 mg Documented By: Admin: 09/01/25 17:37 Dose: 650 mg Documented By: Admin: 09/01/25 10:25 Dose: 650 mg Documented By: Admin: 08/30/25 17:22 Dose: 650 mg Documented By: Hydrocodone Bitart/Acetaminophen (Hydrocodone/Apap 10/325 Tab) 1 tab GT Q4HR PRN PRN Reason: PAIN SCALE 7-10 (Severe Stop: 08/24/25 15:33 Last Admin: 08/19/25 18:10 Dose: 1 tab Documented By: ELIJAH Acetylcysteine (Acetylcysteine Jolene 20% 4 Ml Nebu) 3 ml INH NOW ONE Stop: 08/22/25 11:45 Last Admin: 08/22/25 11:56 Dose: 3 ml Documented By: AMALIA Apixaban (Apixaban 2.5 Mg Tablet) 2.5 mg PO BID IMANI Stop: 09/19/25 20:59 Last Admin: 09/05/25 09:04 Dose: 2.5 mg Documented By: [email or web address] Admin: 09/04/25 21:15 Dose: 2.5 mg Documented By: Admin: 09/04/25 09:33 Dose: 2.5 mg Documented By: [email or web address] Admin: 09/03/25 20:43 Dose: 2.5 mg Documented By: Admin: 09/03/25 09:01 Dose: 2.5 mg Documented By: Admin: 09/02/25 20:15 Dose: 2.5 mg Documented By: Admin: 09/02/25 09:03 Dose: 2.5 mg Documented By: Admin: 09/01/25 20:28 Dose: 2.5 mg Documented By: Admin: 09/01/25 09:09 Dose: 2.5 mg Documented By: Admin: 08/31/25 20:39 Dose: 2.5 mg Documented By: Admin: 08/31/25 10:17 Dose: 2.5 mg Documented By: CARYN Comments: late due to multiple pt. meds Admin: 08/30/25 21:23 Dose: 2.5 mg Documented By: Admin: 08/30/25 09:47 Dose: 2.5 mg Documented By: Admin: 08/29/25 20:56 Dose: 2.5 mg Documented By: Admin: 08/29/25 09:04 Dose: 2.5 mg Documented By: Admin: 08/28/25 21:22 Dose: 2.5 mg Documented By: Admin: 08/28/25 08:46 Dose: 2.5 mg Documented By: Admin: 08/27/25 21:38 Dose: 2.5 mg Documented By: Admin: 08/27/25 09:15 Dose: 2.5 mg Documented By: Admin: 08/26/25 22:05 Dose: 2.5 mg Documented By: Admin: 08/26/25 08:11 Dose: 2.5 mg Documented By: Admin: 08/25/25 22:20 Dose: 2.5 mg Documented By: Admin: 08/25/25 11:09 Dose: Not Given Documented By: FROYLAN Non-Admin Reason: NPO Admin: 08/24/25 20:59 Dose: 2.5 mg Documented By: Admin: 08/24/25 08:05 Dose: 2.5 mg Documented By: Admin: 08/23/25 21:38 Dose: 2.5 mg Documented By: Admin: 08/21/25 21:12 Dose: 2.5 mg Documented By: Admin: 08/21/25 08:21 Dose: 2.5 mg Documented By: Admin: 08/20/25 20:03 Dose: 2.5 mg Documented By: GLORIA Balsam Michael/Albion Oil (Balsam Michael/Albion Oil (Venelex) 60 Gm Tube) 0 gm TOP BID IMANI Stop: 09/19/25 20:59 Last Admin: 09/05/25 09:04 Dose: 1 applicatio Documented By: Admin: 09/04/25 22:06 Dose: 1 applicatio Documented By: Admin: 09/04/25 09:33 Dose: 1 applicatio Documented By: Admin: 09/03/25 20:44 Dose: 1 applicatio Documented By: Admin: 09/03/25 09:02 Dose: 1 applicatio Documented By: Admin: 09/02/25 20:15 Dose: 1 applicatio Documented By: Admin: 09/02/25 09:03 Dose: 1 applicatio Documented By: Admin: 09/01/25 20:29 Dose: 1 applicatio Documented By: Admin: 09/01/25 09:10 Dose: 1 applicatio Documented By: Admin: 08/31/25 20:40 Dose: 1 applicatio Documented By: Admin: 08/31/25 10:29 Dose: 1 applicatio Documented By: CARYN Comments: late due to multiple pt meds Admin: 08/30/25 21:24 Dose: 1 applicatio Documented By: Admin: 08/30/25 09:47 Dose: 1 applicatio Documented By: Admin: 08/29/25 20:56 Dose: 1 applicatio Documented By: Admin: 08/29/25 09:05 Dose: 1 applicatio Documented By: Admin: 08/28/25 21:22 Dose: 1 applicatio Documented By: Admin: 08/28/25 08:50 Dose: 1 applicatio Documented By: Admin: 08/27/25 21:52 Dose: 1 applicatio Documented By: Admin: 08/27/25 09:14 Dose: 1 applicatio Documented By: Admin: 08/26/25 22:13 Dose: 1 applicatio Documented By: Admin: 08/26/25 08:27 Dose: 1 applicatio Documented By: Admin: 08/25/25 23:45 Dose: 60 applicatio Documented By: Admin: 08/25/25 12:00 Dose: 1 applicatio Documented By: Admin: 08/25/25 11:10 Dose: Not Given Documented By: FROYLAN Non-Admin Reason: NPO Admin: 08/24/25 20:52 Dose: 1 applicatio Documented By: Admin: 08/24/25 10:09 Dose: 1 applicatio Documented By: Admin: 08/23/25 21:40 Dose: 60 applicatio Documented By: Admin: 08/23/25 08:29 Dose: 1 applicatio Documented By: Admin: 08/22/25 21:43 Dose: 1 applicatio Documented By: Admin: 08/22/25 08:30 Dose: 1 applicatio Documented By: Admin: 08/21/25 21:12 Dose: 1 applicatio Documented By: Admin: 08/21/25 08:22 Dose: 1 applicatio Documented By: Admin: 08/20/25 20:03 Dose: 1 applicatio Documented By: GLORIA Bisacodyl (Bisacodyl 10 Mg Supp) 10 mg ME QDAY PRN; Protocol PRN Reason: Constipation Stop: 09/29/25 16:14 Bumetanide (Bumetanide Inj 0.25 Mg/Ml Vial 4 Ml) 1 mg IVP QDAY IMANI Stop: 09/28/25 10:14 Last Admin: 08/30/25 09:48 Dose: Not Given Documented By: JR Non-Admin Reason: Per Wasiq Admin: 08/29/25 12:03 Dose: 1 mg Documented By: LAURIE Cefuroxime Axetil (Cefuroxime Axetil 250 Mg Tablet) 500 mg PO BID IMANI Stop: 09/12/25 20:59 Last Admin: 09/05/25 09:04 Dose: 500 mg Documented By: Admin: 09/04/25 21:16 Dose: 500 mg Documented By: Admin: 09/04/25 09:33 Dose: 500 mg Documented By: Admin: 09/03/25 20:43 Dose: 500 mg Documented By: Admin: 09/03/25 09:01 Dose: 500 mg Documented By: Admin: 09/02/25 20:15 Dose: 500 mg Documented By: Admin: 09/02/25 09:03 Dose: 500 mg Documented By: Admin: 09/01/25 20:27 Dose: 500 mg Documented By: Admin: 09/01/25 09:09 Dose: 500 mg Documented By: Admin: 08/31/25 20:39 Dose: 500 mg Documented By: Citric Acid/Sodium Citrate (Citric Acid/Sodium Citr 15 Ml Udc (Bicitra)) 30 ml PO X1 ONE Stop: 08/29/25 07:21 Citric Acid/Sodium Citrate (Citric Acid/Sodium Citr 15 Ml Udc (Bicitra)) 30 ml GT X1 ONE Stop: 08/29/25 07:21 Last Admin: 08/29/25 09:04 Dose: 30 ml Documented By: LAURIE Dextrose (Dextrose 50%-Water Inj 50 Ml Syringe) 25 ml IV Q15MIN PRN PRN Reason: BG 50-70 responsive npo pt Stop: 09/18/25 16:14 Dextrose (Dextrose 50%-Water Inj 50 Ml Syringe) 50 ml IV Q15MIN PRN PRN Reason: BG <50 OR BG <70 & pt unresponsive Stop: 09/18/25 16:14 Dextrose (Dextrose 50%-Water Inj 50 Ml Syringe) 25 ml IV Q15MIN PRN PRN Reason: BG 50-70 responsive npo pt Stop: 09/19/25 17:07 Dextrose (Dextrose 50%-Water Inj 50 Ml Syringe) 50 ml IV Q15MIN PRN PRN Reason: BG <50 OR BG <70 & pt unresponsive Stop: 09/19/25 17:07 Dextrose (Dextrose 50%-Water Inj 50 Ml Syringe) 25 ml IV Q15MIN PRN PRN Reason: BG 50-70 responsive npo pt Stop: 09/20/25 00:24 Last Admin: 08/23/25 21:46 Dose: 25 ml Documented By: MANUEL Dextrose (Dextrose 50%-Water Inj 50 Ml Syringe) 50 ml IV Q15MIN PRN PRN Reason: BG <50 OR BG <70 & pt unresponsive Stop: 09/20/25 00:24 Dextrose (Dextrose 50%-Water Inj 50 Ml Syringe) 50 ml IVP X1 ONE Stop: 08/24/25 01:55 Last Admin: 08/24/25 03:05 Dose: Not Given Documented By: MANUEL Non-Admin Reason: BG 90 Diphenhydramine HCl (Diphenhydramine Elix 25 Mg/10 Ml Udc) 25 mg PO Q4H PRN PRN Reason: Allergic Symptoms Stop: 09/18/25 17:01 Diphenhydramine HCl (Diphenhydramine Elix 25 Mg/10 Ml Udc) 25 mg GT Q4H PRN PRN Reason: Allergic Symptoms Stop: 09/18/25 17:01 Diphenhydramine HCl (Diphenhydramine Inj 50 Mg/Ml Vial) Confirm Administered Dose 50 mg .ROUTE .STK-MED ONE Stop: 08/25/25 20:29 Enoxaparin Sodium (Enoxaparin Sod Inj 40 Mg/0.4 Ml Syringe) 40 mg SC QDAY IMANI Stop: 09/03/25 08:59 Enoxaparin Sodium (Enoxaparin Sod Inj 40 Mg/0.4 Ml Syringe) 40 mg SC HS IMANI Stop: 09/03/25 20:59 Enoxaparin Sodium (Enoxaparin Sod Inj 30 Mg/0.3 Ml Syringe) 30 mg SC HS IMANI Stop: 09/03/25 20:59 Enoxaparin Sodium (Enoxaparin Sod Inj 30 Mg/0.3 Ml Syringe) 30 mg SC QDAY IMANI Stop: 09/04/25 08:59 Famotidine (Famotidine Inj 10 Mg/Ml Vial 2 Ml) 20 mg IVP QDAY IMANI Stop: 09/20/25 08:59 Last Admin: 08/21/25 08:21 Dose: 20 mg Documented By: MR Famotidine (Famotidine Inj 10 Mg/Ml Vial 2 Ml) 20 mg IVP BID [facility] Stop: 09/20/25 20:59 Last Admin: 08/21/25 21:11 Dose: 20 mg Documented By: REHANA Fentanyl Citrate (Fentanyl Cit Inj 50 Mcg/Ml Amp 2ml) Confirm Administered Dose 100 mcg .ROUTE .STK-MED ONE Stop: 08/25/25 20:29 Fentanyl Citrate (Fentanyl Cit Inj 50 Mcg/Ml Amp 2ml) 25 mcg IVP Q2M PRN PRN Reason: MODERATE SEDATION Gabapentin (Gabapentin 300 Mg Capsule) 600 mg PO BID [facility] Stop: 09/18/25 20:59 Gabapentin (Gabapentin 300 Mg Capsule) 600 mg GT BID [facility] Stop: 09/18/25 20:59 Last Admin: 08/29/25 09:05 Dose: 600 mg Documented By: Admin: 08/28/25 21:22 Dose: 600 mg Documented By: Admin: 08/28/25 08:46 Dose: 600 mg Documented By: Admin: 08/27/25 21:39 Dose: 600 mg Documented By: Admin: 08/27/25 09:15 Dose: 600 mg Documented By: Admin: 08/26/25 22:13 Dose: 600 mg Documented By: Admin: 08/26/25 08:11 Dose: 600 mg Documented By: Admin: 08/25/25 22:20 Dose: 600 mg Documented By: Admin: 08/25/25 11:09 Dose: Not Given Documented By: DB Non-Admin Reason: NPO Admin: 08/24/25 20:58 Dose: 600 mg Documented By: Admin: 08/24/25 08:06 Dose: 600 mg Documented By: Admin: 08/23/25 21:39 Dose: 600 mg Documented By: Admin: 08/23/25 08:29 Dose: 600 mg Documented By: Admin: 08/22/25 21:45 Dose: 600 mg Documented By: Admin: 08/22/25 08:20 Dose: 600 mg Documented By: Admin: 08/21/25 21:12 Dose: 600 mg Documented By: Admin: 08/21/25 08:21 Dose: 600 mg Documented By: Admin: 08/20/25 20:03 Dose: 600 mg Documented By: Admin: 08/20/25 08:51 Dose: 600 mg Documented By: Admin: 08/19/25 21:07 Dose: 600 mg Documented By: BB Glucagon (Glucagon Inj 1 Mg Vial) 1 mg IM Q15MIN PRN PRN Reason: BG <70, and no IV access Glucagon (Glucagon Inj 1 Mg Vial) 1 mg IM Q15MIN PRN PRN Reason: BG <70, and no IV access Glucagon (Glucagon Inj 1 Mg Vial) 1 mg IM Q15MIN PRN PRN Reason: BG <70, and no IV access Guaifenesin (Guaifenesin Syrup 200 Mg/10 Ml Udc) 100 mg GT TID [facility]; Protocol Stop: 09/21/25 13:59 Last Admin: 09/05/25 13:36 Dose: 100 mg Documented By: Admin: 09/05/25 06:12 Dose: 100 mg Documented By: Admin: 09/04/25 21:16 Dose: 100 mg Documented By: Admin: 09/04/25 13:54 Dose: 100 mg Documented By: [email or web address] Admin: 09/04/25 05:14 Dose: 100 mg Documented By: Admin: 09/03/25 21:41 Dose: 100 mg Documented By: Admin: 09/03/25 13:56 Dose: 100 mg Documented By: Admin: 09/03/25 05:21 Dose: 100 mg Documented By: Admin: 09/02/25 20:13 Dose: 100 mg Documented By: Admin: 09/02/25 13:51 Dose: 100 mg Documented By: Admin: 09/02/25 05:19 Dose: 100 mg Documented By: Admin: 09/01/25 20:27 Dose: 100 mg Documented By: Admin: 09/01/25 13:57 Dose: 100 mg Documented By: Admin: 09/01/25 05:23 Dose: 100 mg Documented By: Admin: 08/31/25 20:37 Dose: 100 mg Documented By: Admin: 08/31/25 13:43 Dose: 100 mg Documented By: Admin: 08/31/25 05:19 Dose: 100 mg Documented By: Admin: 08/30/25 21:22 Dose: 100 mg Documented By: Admin: 08/30/25 14:44 Dose: 100 mg Documented By: Admin: 08/30/25 05:13 Dose: 100 mg Documented By: MLJess Admin: 08/29/25 21:01 Dose: 100 mg Documented By: MLJess Admin: 08/29/25 14:44 Dose: 100 mg Documented By: Admin: 08/29/25 05:15 Dose: 100 mg Documented By: Admin: 08/28/25 21:21 Dose: 100 mg Documented By: Admin: 08/28/25 13:19 Dose: 100 mg Documented By: Admin: 08/28/25 06:03 Dose: 100 mg Documented By: Admin: 08/27/25 21:39 Dose: 100 mg Documented By: Admin: 08/27/25 13:16 Dose: 100 mg Documented By: Admin: 08/27/25 05:09 Dose: 100 mg Documented By: Admin: 08/26/25 22:13 Dose: 100 mg Documented By: Admin: 08/26/25 14:45 Dose: 100 mg Documented By: Admin: 08/26/25 05:39 Dose: 100 mg Documented By: Admin: 08/25/25 22:20 Dose: 100 mg Documented By: Admin: 08/25/25 16:35 Dose: Not Given Documented By: ALLISON Non-Admin Reason: NPO Admin: 08/25/25 05:23 Dose: Not Given Documented By: GLORIA Non-Admin Reason: NPO Admin: 08/24/25 21:00 Dose: 100 mg Documented By: Admin: 08/24/25 15:22 Dose: 100 mg Documented By: brittney Admin: 08/24/25 05:27 Dose: 100 mg Documented By: Admin: 08/23/25 21:38 Dose: 100 mg Documented By: Admin: 08/23/25 13:48 Dose: 100 mg Documented By: Admin: 08/23/25 06:11 Dose: 100 mg Documented By: Admin: 08/22/25 21:43 Dose: 100 mg Documented By: Admin: 08/22/25 14:09 Dose: 100 mg Documented By: Hydromorphone HCl (Hydromorphone Inj 2 Mg/Ml Vial) 0.5 mg IVP Q6H PRN PRN Reason: BREAKTHROUGH Pain 4-10 Stop: 08/24/25 17:44 Sodium Chloride (Ns) 1,000 mls @ 999 mls/hr IV .Q1H1M ONE Stop: 08/19/25 10:41 Last Infusion: 08/19/25 11:18 Dose: Infused Documented By: Admin: 08/19/25 10:17 Dose: 999 mls/hr Documented By: EF Acetaminophen (Ofirmev Inj) 1,000 mg in 100 mls @ 250 mls/hr IV X1 ONE Stop: 08/19/25 10:28 Last Infusion: 08/19/25 11:14 Dose: Infused Documented By: Admin: 08/19/25 10:50 Dose: 250 mls/hr Documented By: ELIJAH Ceftriaxone Sodium/Dextrose (Rocephin/D5w 1gm Iv Premix) 1 gm in 50 mls @ 100 mls/hr IV X1 ONE Stop: 08/19/25 10:56 Last Infusion: 08/19/25 11:46 Dose: Infused Documented By: Admin: 08/19/25 11:13 Dose: 100 mls/hr Documented By: EF Sodium Chloride (Ns) 1,000 mls @ 999 mls/hr IV .Q1H1M ONE Stop: 08/19/25 13:00 Last Infusion: 08/19/25 13:04 Dose: Infused Documented By: Admin: 08/19/25 12:03 Dose: 999 mls/hr Documented By: Piperacillin Sod/Tazobactam (Sod 4.5 gm/ Sodium Chloride) 100 mls @ 200 mls/hr IV Q6HR IMANI; Protocol Stop: 08/26/25 15:36 Last Admin: 08/20/25 06:36 Dose: 200 mls/hr Documented By: Infusion: 08/20/25 01:17 Dose: Infused Documented By: Admin: 08/20/25 00:47 Dose: 200 mls/hr Documented By: Admin: 08/19/25 18:48 Dose: Not Given Documented By: ELIJAH Non-Admin Reason: Wrong Time Infusion: 08/19/25 18:47 Dose: Infused Documented By: Admin: 08/19/25 18:10 Dose: 200 mls/hr Documented By: ELIJAH Norepinephrine Bitartrate (Levophed In Ns 16mg/250ml) 16 mg in 250 mls @ 5.807 mls/hr IV .Q24H PRN; Protocol PRN Reason: PER PROTOCOL Stop: 09/18/25 19:27 Last Titration: 08/20/25 17:00 Dose: 0.09 mcg/kg/min, 10.452 mls/hr Documented By: Titration: 08/20/25 16:15 Dose: 0.09 mcg/kg/min, 10.452 mls/hr Documented By: Titration: 08/20/25 16:00 Dose: 0.07 mcg/kg/min, 8.129 mls/hr Documented By: Titration: 08/20/25 15:00 Dose: 0.07 mcg/kg/min, 8.129 mls/hr Documented By: Titration: 08/20/25 14:00 Dose: 0.07 mcg/kg/min, 8.129 mls/hr Documented By: Titration: 08/20/25 13:00 Dose: 0.07 mcg/kg/min, 8.129 mls/hr Documented By: Titration: 08/20/25 12:00 Dose: 0.07 mcg/kg/min, 8.129 mls/hr Documented By: Titration: 08/20/25 11:00 Dose: 0.07 mcg/kg/min, 8.129 mls/hr Documented By: Titration: 08/20/25 10:10 Dose: 0.07 mcg/kg/min, 8.129 mls/hr Documented By: Titration: 08/20/25 10:00 Dose: 0.09 mcg/kg/min, 10.452 mls/hr Documented By: Titration: 08/20/25 09:55 Dose: 0.09 mcg/kg/min, 10.452 mls/hr Documented By: Titration: 08/20/25 09:00 Dose: 0.07 mcg/kg/min, 8.129 mls/hr Documented By: Titration: 08/20/25 08:00 Dose: 0.09 mcg/kg/min, 10.452 mls/hr Documented By: Titration: 08/20/25 07:00 Dose: 0.11 mcg/kg/min, 12.775 mls/hr Documented By: Titration: 08/20/25 06:45 Dose: 0.11 mcg/kg/min, 12.775 mls/hr Documented By: Titration: 08/19/25 20:16 Dose: 0.07 mcg/kg/min, 8.129 mls/hr Documented By: Titration: 08/19/25 20:00 Dose: 0.05 mcg/kg/min, 5.807 mls/hr Documented By: Titration: 08/19/25 19:45 Dose: 0.07 mcg/kg/min, 8.129 mls/hr Documented By: Admin: 08/19/25 19:41 Dose: 0.05 mcg/kg/min, 5.807 mls/hr Documented By: CHRIS Norepinephrine Bitartrate (Levophed In Ns 16mg/250ml) Confirm Administered Dose 16 mg in 250 mls @ ud IV .STK-MED ONE Stop: 08/19/25 19:25 Last Admin: 08/19/25 20:22 Dose: Not Given Documented By: CHRIS Non-Admin Reason: Duplicate Medication on eMAR Lactated Ringer's (Lactated Ringers) 1,000 mls @ 999 mls/hr IV .Q1H1M ONE Stop: 08/19/25 20:42 Last Admin: 08/19/25 19:44 Dose: 999 mls/hr Documented By: CHRIS Vancomycin HCl 2,000 mg/ (Sodium Chloride) 500 mls @ 150 mls/hr IV X1 ONE Stop: 08/19/25 23:10 Last Admin: 08/19/25 21:08 Dose: 150 mls/hr Documented By: CHRIS Norepinephrine Bitartrate (Levophed In Ns 16mg/250ml) 16 mg in 250 mls @ 5.807 mls/hr IV .Q24H PRN; Protocol PRN Reason: PER PROTOCOL Stop: 09/18/25 19:27 Last Titration: 08/20/25 06:54 Dose: 0.09 mcg/kg/min, 10.452 mls/hr Documented By: Titration: 08/20/25 06:00 Dose: 0.11 mcg/kg/min, 12.775 mls/hr Documented By: Titration: 08/20/25 05:17 Dose: 0.11 mcg/kg/min, 12.775 mls/hr Documented By: Titration: 08/20/25 05:00 Dose: 0.09 mcg/kg/min, 10.452 mls/hr Documented By: Titration: 08/20/25 04:00 Dose: 0.09 mcg/kg/min, 10.452 mls/hr Documented By: Titration: 08/20/25 03:00 Dose: 0.09 mcg/kg/min, 10.452 mls/hr Documented By: Titration: 08/20/25 02:37 Dose: 0.09 mcg/kg/min, 10.452 mls/hr Documented By: Titration: 08/20/25 02:00 Dose: 0.11 mcg/kg/min, 12.775 mls/hr Documented By: Titration: 08/20/25 01:00 Dose: 0.11 mcg/kg/min, 12.775 mls/hr Documented By: Titration: 08/20/25 00:54 Dose: 0.11 mcg/kg/min, 12.775 mls/hr Documented By: Titration: 08/20/25 00:00 Dose: 0.13 mcg/kg/min, 15.097 mls/hr Documented By: Titration: 08/19/25 23:25 Dose: 0.13 mcg/kg/min, 15.097 mls/hr Documented By: Titration: 08/19/25 23:00 Dose: 0.11 mcg/kg/min, 12.775 mls/hr Documented By: Titration: 08/19/25 22:00 Dose: 0.11 mcg/kg/min, 12.775 mls/hr Documented By: Titration: 08/19/25 21:27 Dose: 0.11 mcg/kg/min, 12.775 mls/hr Documented By: Titration: 08/19/25 21:00 Dose: 0.09 mcg/kg/min, 10.452 mls/hr Documented By: Admin: 08/19/25 20:20 Dose: 0.07 mcg/kg/min, 8.129 mls/hr Documented By: BB Vancomycin HCl (Vancomycin/Water 1250 Mg Ivpb) 250 mls @ 120 mls/hr IV Q12H IMANI; Protocol Stop: 08/27/25 09:59 Last Admin: 08/20/25 11:12 Dose: Not Given Documented By: MR Non-Admin Reason: Discontinued Insulin Human Regular (Myxredlin) 100 unit in 100 mls @ 11.57 mls/hr IV .Q8H39M PRN; Protocol PRN Reason: PER PROTOCOL Stop: 09/19/25 09:23 Last Titration: 08/20/25 23:00 Dose: Infused Documented By: HV Co-signed By: CMN Titration: 08/20/25 22:00 Dose: 0.12 unit/kg/hr, 13.884 mls/hr Documented By: HV Co-signed By: CMN Titration: 08/20/25 21:00 Dose: 0.12 unit/kg/hr, 13.884 mls/hr Documented By: HV Co-signed By: CMN Titration: 08/20/25 20:00 Dose: 0.12 unit/kg/hr, 13.884 mls/hr Documented By: HV Co-signed By: CMN Titration: 08/20/25 19:00 Dose: 0.12 unit/kg/hr, 13.884 mls/hr Documented By: HV Co-signed By: CMN Titration: 08/20/25 18:00 Dose: 0.12 unit/kg/hr, 13.884 mls/hr Documented By: MR Co-signed By: LW Titration: 08/20/25 17:18 Dose: 0.12 unit/kg/hr, 13.884 mls/hr Documented By: MR Co-signed By: LW Titration: 08/20/25 17:00 Dose: 0.1 unit/kg/hr, 11.57 mls/hr Documented By: MR Co-signed By: LW Titration: 08/20/25 16:00 Dose: 0.1 unit/kg/hr, 11.57 mls/hr Documented By: MR Co-signed By: brittney Titration: 08/20/25 15:00 Dose: 0.1 unit/kg/hr, 11.57 mls/hr Documented By: MR Co-signed By: brittney Titration: 08/20/25 14:00 Dose: 0.1 unit/kg/hr, 11.57 mls/hr Documented By: MR Co-signed By: HR Titration: 08/20/25 13:00 Dose: 0.1 unit/kg/hr, 11.57 mls/hr Documented By: MR Co-signed By: HR Titration: 08/20/25 12:00 Dose: 0.1 unit/kg/hr, 11.57 mls/hr Documented By: MR Co-signed By: HR Titration: 08/20/25 11:00 Dose: 0.1 unit/kg/hr, 11.57 mls/hr Documented By: MR Co-signed By: HR Titration: 08/20/25 10:00 Dose: 0.1 unit/kg/hr, 11.57 mls/hr Documented By: MR Co-signed By: HR Admin: 08/20/25 09:31 Dose: 0.1 unit/kg/hr, 11.57 mls/hr Documented By: MR Co-signed By: LW Albumin Human (Albuminex 25% Ivpb) 25 gm in 100 mls @ 100 mls/hr IV Q6H IMANI Stop: 08/22/25 09:59 Last Admin: 08/20/25 12:11 Dose: Not Given Documented By: MR Non-Admin Reason: NO LINE ACCESS MD SMITH STATED TO HOLD Norepinephrine Bitartrate (Levophed In Ns 16mg/250ml) 16 mg in 250 mls @ 5.423 mls/hr IV .Q24H PRN; Protocol PRN Reason: PER PROTOCOL Stop: 09/18/25 19:27 Last Titration: 08/22/25 12:30 Dose: 0 mcg/kg/min, 0 mls/hr Documented By: Titration: 08/22/25 12:00 Dose: 0.005 mcg/kg/min, 0.542 mls/hr Documented By: Titration: 08/22/25 11:00 Dose: 0.005 mcg/kg/min, 0.542 mls/hr Documented By: Titration: 08/22/25 10:00 Dose: 0.005 mcg/kg/min, 0.542 mls/hr Documented By: Titration: 08/22/25 09:00 Dose: 0.005 mcg/kg/min, 0.542 mls/hr Documented By: Titration: 08/22/25 08:00 Dose: 0.005 mcg/kg/min, 0.542 mls/hr Documented By: Titration: 08/22/25 07:00 Dose: 0.005 mcg/kg/min, 0.542 mls/hr Documented By: Titration: 08/22/25 06:45 Dose: 0.005 mcg/kg/min, 0.542 mls/hr Documented By: Titration: 08/22/25 06:43 Dose: 0.005 mcg/kg/min, 0.542 mls/hr Documented By: Titration: 08/22/25 06:00 Dose: 0.01 mcg/kg/min, 1.085 mls/hr Documented By: Titration: 08/22/25 05:32 Dose: 0.015 mcg/kg/min, 1.627 mls/hr Documented By: Titration: 08/22/25 05:00 Dose: 0.02 mcg/kg/min, 2.169 mls/hr Documented By: Titration: 08/22/25 04:00 Dose: 0.025 mcg/kg/min, 2.712 mls/hr Documented By: Titration: 08/22/25 03:00 Dose: 0.025 mcg/kg/min, 2.712 mls/hr Documented By: Titration: 08/22/25 02:00 Dose: 0.025 mcg/kg/min, 2.712 mls/hr Documented By: Titration: 08/22/25 01:31 Dose: 0.025 mcg/kg/min, 2.712 mls/hr Documented By: Titration: 08/22/25 01:05 Dose: 0.02 mcg/kg/min, 2.169 mls/hr Documented By: Titration: 08/22/25 01:00 Dose: 0.025 mcg/kg/min, 2.712 mls/hr Documented By: Titration: 08/22/25 00:00 Dose: 0.025 mcg/kg/min, 2.712 mls/hr Documented By: Titration: 08/21/25 23:04 Dose: 0.025 mcg/kg/min, 2.712 mls/hr Documented By: Titration: 08/21/25 23:00 Dose: 0.03 mcg/kg/min, 3.254 mls/hr Documented By: Titration: 08/21/25 22:00 Dose: 0.03 mcg/kg/min, 3.254 mls/hr Documented By: Titration: 08/21/25 21:45 Dose: 0.03 mcg/kg/min, 3.254 mls/hr Documented By: Titration: 08/21/25 21:00 Dose: 0.04 mcg/kg/min, 4.339 mls/hr Documented By: Titration: 08/21/25 20:45 Dose: 0.04 mcg/kg/min, 4.339 mls/hr Documented By: Titration: 08/21/25 20:00 Dose: 0.05 mcg/kg/min, 5.423 mls/hr Documented By: Titration: 08/21/25 19:00 Dose: 0.05 mcg/kg/min, 5.423 mls/hr Documented By: Admin: 08/21/25 13:08 Dose: 0.05 mcg/kg/min, 5.423 mls/hr Documented By: Titration: 08/21/25 13:08 Dose: Infused Documented By: Titration: 08/21/25 13:00 Dose: 0.05 mcg/kg/min, 5.423 mls/hr Documented By: Titration: 08/21/25 12:00 Dose: 0.05 mcg/kg/min, 5.423 mls/hr Documented By: Titration: 08/21/25 11:00 Dose: 0.05 mcg/kg/min, 5.423 mls/hr Documented By: Titration: 08/21/25 10:00 Dose: 0.07 mcg/kg/min, 7.593 mls/hr Documented By: Titration: 08/21/25 09:00 Dose: 0.07 mcg/kg/min, 7.593 mls/hr Documented By: Titration: 08/21/25 08:42 Dose: 0.07 mcg/kg/min, 7.593 mls/hr Documented By: Titration: 08/21/25 08:00 Dose: 0.09 mcg/kg/min, 9.762 mls/hr Documented By: Titration: 08/21/25 07:00 Dose: 0.09 mcg/kg/min, 9.762 mls/hr Documented By: Titration: 08/21/25 06:45 Dose: 0.11 mcg/kg/min, 11.932 mls/hr Documented By: Titration: 08/21/25 06:00 Dose: 0.11 mcg/kg/min, 11.932 mls/hr Documented By: Titration: 08/21/25 05:15 Dose: 0.11 mcg/kg/min, 11.932 mls/hr Documented By: Titration: 08/21/25 05:00 Dose: 0.13 mcg/kg/min, 14.101 mls/hr Documented By: Titration: 08/21/25 04:00 Dose: 0.13 mcg/kg/min, 14.101 mls/hr Documented By: Titration: 08/21/25 03:00 Dose: 0.13 mcg/kg/min, 14.101 mls/hr Documented By: Titration: 08/21/25 02:00 Dose: 0.13 mcg/kg/min, 14.101 mls/hr Documented By: Titration: 08/21/25 01:15 Dose: 0.13 mcg/kg/min, 14.101 mls/hr Documented By: Titration: 08/21/25 01:00 Dose: 0.15 mcg/kg/min, 16.27 mls/hr Documented By: Titration: 08/21/25 00:00 Dose: 0.15 mcg/kg/min, 16.27 mls/hr Documented By: Titration: 08/20/25 23:00 Dose: 0.15 mcg/kg/min, 16.27 mls/hr Documented By: Titration: 08/20/25 22:00 Dose: 0.15 mcg/kg/min, 16.27 mls/hr Documented By: Titration: 08/20/25 21:20 Dose: 0.15 mcg/kg/min, 16.27 mls/hr Documented By: Titration: 08/20/25 21:00 Dose: 0.13 mcg/kg/min, 14.101 mls/hr Documented By: Titration: 08/20/25 20:00 Dose: 0.13 mcg/kg/min, 14.101 mls/hr Documented By: Titration: 08/20/25 19:30 Dose: 0.13 mcg/kg/min, 14.101 mls/hr Documented By: Titration: 08/20/25 19:15 Dose: 0.15 mcg/kg/min, 16.27 mls/hr Documented By: Titration: 08/20/25 19:10 Dose: 0.2 mcg/kg/min, 21.694 mls/hr Documented By: Titration: 08/20/25 19:05 Dose: 0.35 mcg/kg/min, 37.964 mls/hr Documented By: Titration: 08/20/25 19:00 Dose: 0.45 mcg/kg/min, 48.811 mls/hr Documented By: Titration: 08/20/25 18:54 Dose: 0.51 mcg/kg/min, 55.319 mls/hr Documented By: Titration: 08/20/25 18:50 Dose: 0.35 mcg/kg/min, 37.964 mls/hr Documented By: Titration: 08/20/25 18:46 Dose: 0.25 mcg/kg/min, 27.117 mls/hr Documented By: Titration: 08/20/25 18:39 Dose: 0.11 mcg/kg/min, 11.932 mls/hr Documented By: Titration: 08/20/25 18:00 Dose: 0.09 mcg/kg/min, 9.762 mls/hr Documented By: Admin: 08/20/25 17:42 Dose: 0.09 mcg/kg/min, 9.762 mls/hr Documented By: Piperacillin Sod/Tazobactam (Sod 4.5 gm/ Sodium Chloride) 100 mls @ 200 mls/hr IV Q12H [facility]; Protocol Stop: 08/27/25 17:59 Last Admin: 08/22/25 05:09 Dose: 200 mls/hr Documented By: Infusion: 08/21/25 19:07 Dose: Infused Documented By: Admin: 08/21/25 18:37 Dose: 200 mls/hr Documented By: Infusion: 08/21/25 06:20 Dose: Infused Documented By: Admin: 08/21/25 05:50 Dose: 200 mls/hr Documented By: Infusion: 08/20/25 18:34 Dose: Infused Documented By: Admin: 08/20/25 18:04 Dose: 200 mls/hr Documented By: MR Vancomycin HCl (Vancomycin/Water 1250 Mg Ivpb) 250 mls @ 120 mls/hr IV Q24H IMANI; Protocol Stop: 08/27/25 21:59 Last Admin: 08/20/25 21:16 Dose: 120 mls/hr Documented By: GLORIA Vasopressin/Sodium Chloride (Vasostrict/Ns Ivpb) 20 unit in 100 mls @ 9 mls/hr IV .Q11H7M PRN; Protocol PRN Reason: PER PROTOCOL Stop: 09/19/25 18:42 Last Titration: 08/20/25 19:00 Dose: 0 unit/min, 0 mls/hr Documented By: Admin: 08/20/25 18:49 Dose: 0.03 unit/min, 9 mls/hr Documented By: Lactated Ringer's (Lactated Ringers) 500 mls @ 999 mls/hr IV .Q31M ONE Stop: 08/20/25 19:27 Last Admin: 08/20/25 19:00 Dose: 999 mls/hr Documented By: GLORIA Albumin Human (Albuminex 25% Ivpb) 25 gm in 100 mls @ 100 mls/hr IV X1 ONE Stop: 08/21/25 08:17 Last Admin: 08/21/25 07:38 Dose: 100 mls/hr Documented By: MR Albumin Human (Albuminex 25% Ivpb) 25 gm in 100 mls @ 100 mls/hr IV X1 ONE Stop: 08/22/25 08:14 Last Admin: 08/22/25 07:49 Dose: 100 mls/hr Documented By: MR Albumin Human (Albuminex 25% Ivpb) 25 gm in 100 mls @ 100 mls/hr IV X1 ONE Stop: 08/22/25 09:14 Last Admin: 08/22/25 08:19 Dose: 100 mls/hr Documented By: Norepinephrine/Dextrose (Levophed In D5w 8mg/250ml) 8 mg in 250 mls @ 10.884 mls/hr IV .[id number] PRN; Protocol PRN Reason: PER PROTOCOL Stop: 09/21/25 07:21 Cefepime HCl 2 gm/ Sodium (Chloride) 50 mls @ 100 mls/hr IV Q8HR IMANI Stop: 08/29/25 08:36 Last Admin: 08/22/25 08:45 Dose: 100 mls/hr Documented By: Cefepime HCl 1 gm/ Sodium (Chloride) 50 mls @ 100 mls/hr IV Q12HR IMANI Stop: 08/29/25 20:59 Last Admin: 08/28/25 09:28 Dose: 100 mls/hr Documented By: Infusion: 08/27/25 22:08 Dose: Infused Documented By: Admin: 08/27/25 21:38 Dose: 100 mls/hr Documented By: Infusion: 08/27/25 09:48 Dose: Infused Documented By: Admin: 08/27/25 09:18 Dose: 100 mls/hr Documented By: Infusion: 08/26/25 22:42 Dose: Infused Documented By: Admin: 08/26/25 22:12 Dose: 100 mls/hr Documented By: Infusion: 08/26/25 08:42 Dose: Infused Documented By: Admin: 08/26/25 08:12 Dose: 100 mls/hr Documented By: Infusion: 08/25/25 22:50 Dose: Infused Documented By: Admin: 08/25/25 22:20 Dose: 100 mls/hr Documented By: Infusion: 08/25/25 11:10 Dose: Infused Documented By: Admin: 08/25/25 08:21 Dose: 100 mls/hr Documented By: Infusion: 08/24/25 21:29 Dose: Infused Documented By: Admin: 08/24/25 20:59 Dose: 100 mls/hr Documented By: Infusion: 08/24/25 08:36 Dose: Infused Documented By: Admin: 08/24/25 08:06 Dose: 100 mls/hr Documented By: Infusion: 08/23/25 22:09 Dose: Infused Documented By: Admin: 08/23/25 21:39 Dose: 100 mls/hr Documented By: Infusion: 08/23/25 08:57 Dose: Infused Documented By: Admin: 08/23/25 08:27 Dose: 100 mls/hr Documented By: Infusion: 08/22/25 22:14 Dose: Infused Documented By: Admin: 08/22/25 21:44 Dose: 100 mls/hr Documented By: CHRIS Lactated Ringer's (Lactated Ringers) 500 mls @ 999 mls/hr IV .Q31M ONE Stop: 08/27/25 18:46 Last Admin: 08/27/25 18:28 Dose: 999 mls/hr Documented By: DIONISIO Vancomycin HCl 1,500 mg/ (Sodium Chloride) 500 mls @ 200 mls/hr IV X1 ONE Stop: 08/27/25 21:29 Last Admin: 08/27/25 19:31 Dose: 200 mls/hr Documented By: CCT Lactated Ringer's (Lactated Ringers) 500 mls @ 999 mls/hr IV .Q31M ONE Stop: 08/28/25 01:24 Last Admin: 08/28/25 02:35 Dose: Not Given Documented By: CCT Non-Admin Reason: Cancelled by Provider Lactated Ringer's (Lactated Ringers) 1,000 mls @ 120 mls/hr IV .Q8H20M ONE Stop: 08/28/25 10:05 Last Admin: 08/28/25 02:31 Dose: 120 mls/hr Documented By: JOANNE Metronidazole (Flagyl 500 Mg Iv) 500 mg in 100 mls @ 200 mls/hr IV Q6HR IMANI Stop: 09/04/25 07:03 Last Admin: 08/28/25 08:33 Dose: 200 mls/hr Documented By: KELSEY Vancomycin HCl (Vancomycin/Water 1gm Ivpb) 200 mls @ 120 mls/hr IV QDAY@1000 IMANI; Protocol Stop: 09/04/25 09:59 Last Admin: 09/01/25 10:24 Dose: Not Given Documented By: Non-Admin Reason: Discontinued Admin: 08/31/25 10:18 Dose: 120 mls/hr Documented By: Admin: 08/30/25 10:07 Dose: Not Given Documented By: Non-Admin Reason: Per Protocol Comments: Vanco trough 23.2 Infusion: 08/29/25 12:51 Dose: Infused Documented By: Admin: 08/29/25 11:10 Dose: 120 mls/hr Documented By: Infusion: 08/28/25 12:20 Dose: Infused Documented By: Admin: 08/28/25 10:39 Dose: 120 mls/hr Documented By: KELSEY Comments: ok to administer per pharmacy[facility] Aztreonam 1,000 mg/ Sodium (Chloride) 50 mls @ 100 mls/hr IV Q12HR IMANI Stop: 09/04/25 10:21 Aztreonam 2,000 mg/ Sodium (Chloride) 100 mls @ 100 mls/hr IV Q8HR IMANI Stop: 09/04/25 10:59 Last Admin: 08/31/25 05:20 Dose: 100 mls/hr Documented By: Infusion: 08/30/25 22:23 Dose: Infused Documented By: Admin: 08/30/25 21:23 Dose: 100 mls/hr Documented By: Infusion: 08/30/25 15:44 Dose: Infused Documented By: Admin: 08/30/25 14:44 Dose: 100 mls/hr Documented By: Infusion: 08/30/25 06:13 Dose: Infused Documented By: Admin: 08/30/25 05:13 Dose: 100 mls/hr Documented By: Infusion: 08/29/25 22:01 Dose: Infused Documented By: Admin: 08/29/25 21:01 Dose: 100 mls/hr Documented By: Infusion: 08/29/25 15:44 Dose: Infused Documented By: Admin: 08/29/25 14:44 Dose: 100 mls/hr Documented By: XIONPiotr Infusion: 08/29/25 06:15 Dose: Infused Documented By: Admin: 08/29/25 05:15 Dose: 100 mls/hr Documented By: Infusion: 08/28/25 22:22 Dose: Infused Documented By: Admin: 08/28/25 21:22 Dose: 100 mls/hr Documented By: Infusion: 08/28/25 13:12 Dose: Infused Documented By: Admin: 08/28/25 12:12 Dose: 100 mls/hr Documented By: KELSEY Lactated Ringer's (Lactated Ringers) 250 mls @ 999 mls/hr IV .Q16M ONE Stop: 08/30/25 04:23 Last Infusion: 08/30/25 04:41 Dose: Infused Documented By: Admin: 08/30/25 04:25 Dose: 999 mls/hr Documented By: MLD Lactated Ringer's (Lactated Ringers) 1,000 mls @ 75 mls/hr IV .[id number] [facility] Stop: 08/31/25 00:22 Last Admin: 08/30/25 11:47 Dose: 75 mls/hr Documented By: Magnesium Sulfate (Magnesium Sulfate Ivpb) 4 gm in 50 mls @ 12.5 mls/hr IV X1 ONE Stop: 09/04/25 12:38 Last Admin: 09/04/25 09:24 Dose: 12.5 mls/hr Documented By: JASON Insulin Degludec (Insulin Degludec 5 Unit/0.05 Ml (Per 5 Units)) 28 unit SC BID [facility]; Protocol Stop: 09/18/25 20:59 Last Admin: 08/20/25 08:55 Dose: 28 unit Documented By: Co-signed By: brittney Admin: 08/19/25 21:09 Dose: 28 unit Documented By: CHRIS Co-signed By: JEROMY Insulin Degludec (Insulin Degludec 5 Unit/0.05 Ml (Per 5 Units)) 30 unit SC BID IMANI Stop: 09/20/25 08:59 Last Admin: 08/21/25 08:32 Dose: 30 unit Documented By: MR Co-signed By: MM Insulin Degludec (Insulin Degludec 5 Unit/0.05 Ml (Per 5 Units)) 30 unit SC QDAY [facility] Stop: 09/21/25 08:59 Insulin Degludec (Insulin Degludec 5 Unit/0.05 Ml (Per 5 Units)) 10 unit SC QDAY [facility] Stop: 09/21/25 08:59 Last Admin: 08/28/25 08:47 Dose: 10 unit Documented By: KELSEY Co-signed By: ALLISON Admin: 08/27/25 09:40 Dose: 10 unit Documented By: DIONISIO Co-signed By: THIAGO Admin: 08/26/25 08:19 Dose: 10 unit Documented By: Co-signed By: brittney Admin: 08/25/25 11:10 Dose: Not Given Documented By: FROYLAN Non-Admin Reason: NPO Admin: 08/24/25 08:23 Dose: Not Given Documented By: Non-Admin Reason: Per Protocol Comments: MD MAN AWARE OF BS 107 HOLD Admin: 08/23/25 09:42 Dose: Not Given Documented By: SHANA Non-Admin Reason: Held 2/T B. Aware. Admin: 08/22/25 08:42 Dose: 10 unit Documented By: Co-signed By: HR Insulin Degludec (Insulin Degludec 5 Unit/0.05 Ml (Per 5 Units)) 15 unit SC QDAY IMANI Stop: 09/28/25 08:59 Last Admin: 09/05/25 09:12 Dose: 15 unit Documented By: JASON Co-signed By: NANCY Admin: 09/04/25 09:36 Dose: 15 unit Documented By: JASON Co-signed By: TENNILLE Admin: 09/03/25 09:01 Dose: 15 unit Documented By: Co-signed By: Admin: 09/02/25 09:02 Dose: 15 unit Documented By: Co-signed By: KOJO Admin: 09/01/25 09:09 Dose: 15 unit Documented By: Co-signed By: NANCY Comments: Ok to give per Dr. Méndez Admin: 08/31/25 10:15 Dose: 15 unit Documented By: CARYN Co-signed By: NANCY Comments: new order Admin: 08/30/25 09:52 Dose: Not Given Documented By: Non-Admin Reason: per DR. Salinas Admin: 08/29/25 09:07 Dose: 15 unit Documented By: LAURIE Co-signed By: MARC Insulin Human Lispro (Insulin Lispro (Admelog) 1 Unit/0.01 Ml Unit) 0 unit SC AC IMANI; Protocol Stop: 09/18/25 16:59 Insulin Human Lispro (Insulin Lispro (Admelog) 1 Unit/0.01 Ml Unit) 0 unit SC AC IMANI; Protocol Stop: 09/18/25 16:59 Last Admin: 08/19/25 18:09 Dose: 4 unit Documented By: ELIJAH Co-signed By: VINICIO Insulin Human Lispro (Insulin Lispro (Admelog) 1 Unit/0.01 Ml Unit) 10 unit SC X1 ONE Stop: 08/19/25 16:39 Last Admin: 08/19/25 17:28 Dose: Not Given Documented By: DO Non-Admin Reason: Cancelled by Provider Insulin Human Lispro (Insulin Lispro (Admelog) 1 Unit/0.01 Ml Unit) 0 unit SC Q6H IMANI; Protocol Stop: 09/18/25 23:14 Last Admin: 08/20/25 06:37 Dose: 5 unit Documented By: CHRIS Co-signed By: ROGERS Admin: 08/20/25 00:45 Dose: 5 unit Documented By: CHRIS Co-signed By: ROGERS Insulin Human Lispro (Insulin Lispro (Admelog) 1 Unit/0.01 Ml Unit) 0 unit SC Q6HR IMANI; Protocol Stop: 09/19/25 17:59 Insulin Human Lispro (Insulin Lispro (Admelog) 1 Unit/0.01 Ml Unit) 0 unit SC Q4HR IMANI; Protocol Stop: 09/20/25 00:29 Last Admin: 08/21/25 05:56 Dose: 2 unit Documented By: GLORIA Co-signed By: REHANA Admin: 08/21/25 02:00 Dose: Not Given Documented By: GLORIA Non-Admin Reason: Per Protocol Admin: 08/21/25 00:30 Dose: Not Given Documented By: GLORIA Non-Admin Reason: Per Protocol Insulin Human Lispro (Insulin Lispro (Admelog) 1 Unit/0.01 Ml Unit) 10 unit SC Q6HR IMANI Stop: 09/20/25 11:59 Last Admin: 08/21/25 18:32 Dose: Not Given Documented By: MR Non-Admin Reason: HOLD PER MD ORTIZ BS 127 Admin: 08/21/25 11:33 Dose: 10 unit Documented By: MR Co-signed By: IMELDA(2) Insulin Human Lispro (Insulin Lispro (Admelog) 1 Unit/0.01 Ml Unit) 0 unit SC Q4HR IMANI; Protocol Stop: 09/20/25 00:29 Last Admin: 08/21/25 18:32 Dose: Not Given Documented By: MR Non-Admin Reason: Per Protocol Admin: 08/21/25 14:19 Dose: Not Given Documented By: MR Non-Admin Reason: Per Protocol Admin: 08/21/25 10:17 Dose: 3 unit Documented By: MM Co-signed By: Insulin Human Lispro (Insulin Lispro (Admelog) 1 Unit/0.01 Ml Unit) 2 unit SC Q6HR IMANI Stop: 09/21/25 00:00 Last Admin: 09/05/25 11:59 Dose: 2 unit Documented By: JASON Co-signed By: ELIZABETH Admin: 09/05/25 06:24 Dose: Not Given Documented By: WB Non-Admin Reason: Hold dose per Dr. Polk Admin: 09/05/25 00:00 Dose: Not Given Documented By: WB Non-Admin Reason: Per Protocol Admin: 09/04/25 17:41 Dose: 2 unit Documented By: JASON Co-signed By: TENNILLE Admin: 09/04/25 12:40 Dose: 2 unit Documented By: JASON Co-signed By: TENNILLE Admin: 09/04/25 05:16 Dose: 2 unit Documented By: JEANMARIE Co-signed By: BOB Admin: 09/04/25 01:15 Dose: 2 unit Documented By: JEANMARIE Co-signed By: BOB Admin: 09/03/25 17:41 Dose: 2 unit Documented By: Co-signed By: MARC Admin: 09/03/25 11:52 Dose: 2 unit Documented By: Co-signed By: ALLISON Admin: 09/03/25 05:19 Dose: Not Given Documented By: SA Non-Admin Reason: Per Protocol Admin: 09/03/25 05:19 Dose: Not Given Documented By: SA Non-Admin Reason: Per Protocol Admin: 09/02/25 17:34 Dose: 2 unit Documented By: Co-signed By: KOJO Admin: 09/02/25 12:02 Dose: 2 unit Documented By: Co-signed By: KOJO Admin: 09/02/25 05:20 Dose: Not Given Documented By: SA Non-Admin Reason: Per Protocol Admin: 09/02/25 00:40 Dose: Not Given Documented By: SA Non-Admin Reason: Per Protocol Admin: 09/01/25 17:34 Dose: 2 unit Documented By: Co-signed By: CARYN Admin: 09/01/25 11:28 Dose: 2 unit Documented By: Co-signed By: NANCY Admin: 09/01/25 05:24 Dose: Not Given Documented By: SA Non-Admin Reason: Per Protocol Admin: 09/01/25 00:00 Dose: Not Given Documented By: SA Non-Admin Reason: Per Protocol Admin: 08/31/25 19:27 Dose: Not Given Documented By: CARYN Non-Admin Reason: Per Protocol Admin: 08/31/25 13:43 Dose: 2 unit Documented By: CARYN Co-signed By: JACOBO Admin: 08/31/25 05:20 Dose: Not Given Documented By: Non-Admin Reason: Per Protocol Admin: 08/30/25 23:24 Dose: Not Given Documented By: Non-Admin Reason: Per Protocol Admin: 08/30/25 17:25 Dose: Not Given Documented By: Non-Admin Reason: blood glucose 74 Admin: 08/30/25 12:00 Dose: Not Given Documented By: Non-Admin Reason: Blood glucose of 76 Admin: 08/30/25 05:09 Dose: Not Given Documented By: BRETT Non-Admin Reason: NO TUBE FEED Admin: 08/29/25 23:40 Dose: Not Given Documented By: BRETT Non-Admin Reason: NPO Comments: FEEDING ON HOLD Admin: 08/29/25 19:30 Dose: Not Given Documented By: LAURIE Non-Admin Reason: NPO Admin: 08/29/25 13:30 Dose: Not Given Documented By: LAURIE Non-Admin Reason: NPO Admin: 08/22/25 05:08 Dose: 2 unit Documented By: REHANA Co-signed By: HALEIGH Admin: 08/22/25 00:02 Dose: 2 unit Documented By: REHANA Co-signed By: CHRIS Insulin Human Lispro (Insulin Lispro (Admelog) 1 Unit/0.01 Ml Unit) 0 unit SC Q6HR IMANI; Protocol Stop: 09/21/25 00:00 Last Admin: 08/22/25 05:04 Dose: Not Given Documented By: REHANA Non-Admin Reason: Per Protocol Admin: 08/22/25 00:01 Dose: Not Given Documented By: REHANA Non-Admin Reason: Per Protocol Insulin Human Lispro (Insulin Lispro (Admelog) 1 Unit/0.01 Ml Unit) 0 unit SC Q4HR IMANI; Protocol Stop: 09/21/25 09:59 Last Admin: 08/24/25 05:02 Dose: Not Given Documented By: MANUEL Non-Admin Reason: Per Protocol Admin: 08/24/25 03:04 Dose: Not Given Documented By: MANUEL Non-Admin Reason: Per Protocol Admin: 08/23/25 22:02 Dose: Not Given Documented By: MANUEL Non-Admin Reason: Per Protocol Admin: 08/23/25 17:12 Dose: Not Given Documented By: LW Non-Admin Reason: Per Protocol Admin: 08/23/25 14:04 Dose: Not Given Documented By: MR Non-Admin Reason: Per Protocol Admin: 08/23/25 09:44 Dose: Not Given Documented By: ZP Non-Admin Reason: Held 2/T B. MD Aware. Admin: 08/23/25 07:12 Dose: Not Given Documented By: BB Non-Admin Reason: Per Protocol Admin: 08/23/25 02:38 Dose: Not Given Documented By: BB Non-Admin Reason: Per Protocol Admin: 08/22/25 20:35 Dose: Not Given Documented By: BB Non-Admin Reason: Per Protocol Admin: 08/22/25 20:34 Dose: Not Given Documented By: BB Non-Admin Reason: Per Protocol Admin: 08/22/25 14:06 Dose: Not Given Documented By: MR Non-Admin Reason: Per Protocol Admin: 08/22/25 09:34 Dose: Not Given Documented By: MR Non-Admin Reason: Per Protocol Insulin Human Lispro (Insulin Lispro (Admelog) 1 Unit/0.01 Ml Unit) 0 unit SC Q6HR IMANI; Protocol Stop: 09/23/25 11:59 Last Admin: 09/05/25 12:00 Dose: Not Given Documented By: [email or web address] Non-Admin Reason: Per Protocol Admin: 09/05/25 06:20 Dose: Not Given Documented By: WB Non-Admin Reason: Per Protocol Admin: 09/05/25 00:00 Dose: Not Given Documented By: WB Non-Admin Reason: Per Protocol Admin: 09/04/25 17:42 Dose: Not Given Documented By: [email or web address] Non-Admin Reason: Per Protocol Admin: 09/04/25 12:42 Dose: Not Given Documented By: [email or web address] Non-Admin Reason: Per Protocol Admin: 09/04/25 05:15 Dose: Not Given Documented By: RC Non-Admin Reason: Per Protocol Admin: 09/04/25 00:30 Dose: Not Given Documented By: RC Non-Admin Reason: Per Protocol Admin: 09/03/25 17:39 Dose: Not Given Documented By: JR Non-Admin Reason: Per Protocol Admin: 09/03/25 11:36 Dose: Not Given Documented By: JR Non-Admin Reason: Per Protocol Admin: 09/03/25 05:20 Dose: Not Given Documented By: SA Non-Admin Reason: Per Protocol Admin: 09/03/25 05:19 Dose: Not Given Documented By: SA Non-Admin Reason: Per Protocol Admin: 09/02/25 17:29 Dose: Not Given Documented By: JR Non-Admin Reason: Per Protocol Admin: 09/02/25 11:50 Dose: Not Given Documented By: JR Non-Admin Reason: Per Protocol Admin: 09/02/25 05:20 Dose: Not Given Documented By: SA Non-Admin Reason: Per Protocol Admin: 09/02/25 00:40 Dose: Not Given Documented By: SA Non-Admin Reason: Per Protocol Admin: 09/01/25 17:31 Dose: Not Given Documented By: JR Non-Admin Reason: Per Protocol Admin: 09/01/25 11:25 Dose: Not Given Documented By: JR Non-Admin Reason: Per Protocol Admin: 09/01/25 05:24 Dose: Not Given Documented By: SA Non-Admin Reason: Per Protocol Admin: 09/01/25 00:00 Dose: Not Given Documented By: SA Non-Admin Reason: Per Protocol Admin: 08/31/25 19:27 Dose: Not Given Documented By: CP Non-Admin Reason: Per Protocol Admin: 08/31/25 13:35 Dose: Not Given Documented By: CP Non-Admin Reason: Per Protocol Admin: 08/31/25 05:20 Dose: Not Given Documented By: SA Non-Admin Reason: Per Protocol Admin: 08/30/25 23:24 Dose: Not Given Documented By: SA Non-Admin Reason: Per Protocol Admin: 08/30/25 17:25 Dose: Not Given Documented By: JR Non-Admin Reason: Per Protocol Admin: 08/30/25 12:00 Dose: Not Given Documented By: JR Non-Admin Reason: Per Protocol Admin: 08/30/25 05:09 Dose: Not Given Documented By: MLD Non-Admin Reason: Per Protocol Admin: 08/29/25 23:40 Dose: Not Given Documented By: MLD Non-Admin Reason: Per Protocol Admin: 08/29/25 19:30 Dose: Not Given Documented By: XIONM Non-Admin Reason: NPO Admin: 08/29/25 13:31 Dose: Not Given Documented By: XIONM Non-Admin Reason: NPO Admin: 08/29/25 05:21 Dose: 4 unit Documented By: BOB Co-signed By: FIORDALIZA Admin: 08/28/25 23:39 Dose: 4 unit Documented By: BOB Co-signed By: BRETT Admin: 08/28/25 18:06 Dose: 3 unit Documented By: KELSEY Co-signed By: IMELDA(2) Admin: 08/28/25 12:41 Dose: 4 unit Documented By: KELSEY Co-signed By: JACOBO Admin: 08/28/25 06:04 Dose: 4 unit Documented By: CCT Co-signed By: ROGERS Admin: 08/27/25 23:33 Dose: 4 unit Documented By: JOANNE Co-signed By: BRETT Admin: 08/27/25 18:25 Dose: 3 unit Documented By: DIONISIO Co-signed By: THIAGO Admin: 08/27/25 13:16 Dose: 4 unit Documented By: DIONISIO Co-signed By: LEONEL Admin: 08/27/25 05:12 Dose: Not Given Documented By: HV Non-Admin Reason: Per Protocol Admin: 08/27/25 00:39 Dose: Not Given Documented By: HV Non-Admin Reason: Per Protocol Admin: 08/26/25 17:50 Dose: Not Given Documented By: MR Non-Admin Reason: Per Protocol Admin: 08/26/25 11:35 Dose: Not Given Documented By: MR Non-Admin Reason: Per Protocol Admin: 08/26/25 05:40 Dose: Not Given Documented By: ELLSE Non-Admin Reason: Per Protocol Admin: 08/26/25 01:47 Dose: Not Given Documented By: ELLSE Non-Admin Reason: Per Protocol Admin: 08/25/25 17:46 Dose: Not Given Documented By: JRR Non-Admin Reason: Per Protocol Admin: 08/25/25 11:12 Dose: Not Given Documented By: JRR Non-Admin Reason: Per Protocol Admin: 08/25/25 05:04 Dose: Not Given Documented By: HV Non-Admin Reason: Per Protocol Admin: 08/25/25 00:00 Dose: Not Given Documented By: HV Non-Admin Reason: Per Protocol Admin: 08/24/25 17:45 Dose: Not Given Documented By: RH Non-Admin Reason: Per Protocol Admin: 08/24/25 12:26 Dose: Not Given Documented By: MR Non-Admin Reason: Per Protocol Ipratropium [place] (Ipratropium Rt 0.5 Mg/ 2.5 Ml Nebu) 0.5 mg INH Q4H PRN PRN Reason: SHORTNESS OF BREATH OR WHEEZE Stop: 09/18/25 17:03 Labetalol HCl (Labetalol Inj 5 Mg/Ml Vial 4 Ml) 10 mg IVP Q10MIN PRN PRN Reason: hypertension, SBP >160 Stop: 09/24/25 11:29 Lactulose (Lactulose Syrup 20 Gm/30 Ml Udc) 10 gm PO Q24H ONE; Protocol Stop: 08/19/25 17:10 Last Admin: 08/19/25 18:14 Dose: 10 gm Documented By: ELIJAH Lactulose (Lactulose Syrup 20 Gm/30 Ml Udc) 60 gm GT X1 ONE; Protocol Stop: 08/29/25 10:10 Last Admin: 08/29/25 12:03 Dose: 60 gm Documented By: LAURIE Magnesium Hydroxide (Milk Of Magnesia Susp 30 Ml Udc) 30 ml GT QDAY PRN; Protocol PRN Reason: CONSTIPATION Stop: 09/18/25 15:14 Magnesium Hydroxide (Milk Of Magnesia Susp 30 Ml Udc) 30 ml PO Q24H PRN; Protocol PRN Reason: constipation Stop: 09/18/25 17:08 Midazolam HCl (Midazolam Inj 1 Mg/Ml Vial 2 Ml) 2 mg IVP X1 ONE Stop: 08/21/25 18:52 Last Admin: 08/21/25 18:53 Dose: 2 mg Documented By: REHANA Midazolam HCl (Midazolam Inj 1 Mg/Ml Vial 2 Ml) Confirm Administered Dose 2 mg .ROUTE .STK-MED ONE Stop: 08/21/25 18:49 Last Admin: 08/21/25 21:11 Dose: Not Given Documented By: CMElvin Non-Admin Reason: Duplicate Medication on eMAR Midazolam HCl (Midazolam Inj 1 Mg/Ml Vial 2 Ml) Confirm Administered Dose 2 mg .ROUTE .STK-MED ONE Stop: 08/25/25 20:29 Midazolam HCl (Midazolam Inj 1 Mg/Ml Vial 2 Ml) 2 mg IVP Q2M PRN PRN Reason: Moderate Sedation Midodrine (Midodrine 5 Mg Tablet) 10 mg PO TID IMANI Stop: 09/18/25 21:59 Midodrine (Midodrine 5 Mg Tablet) 10 mg GT TID IMANI Stop: 09/18/25 21:59 Last Admin: 08/25/25 05:18 Dose: Not Given Documented By: GLORIA Non-Admin Reason: Per Protocol Admin: 08/24/25 20:59 Dose: 10 mg Documented By: Admin: 08/24/25 15:23 Dose: 10 mg Documented By: brittney Admin: 08/24/25 05:02 Dose: Not Given Documented By: MANUEL Non-Admin Reason: Per Protocol Admin: 08/23/25 21:39 Dose: 10 mg Documented By: Admin: 08/23/25 13:48 Dose: 10 mg Documented By: Admin: 08/23/25 06:11 Dose: 10 mg Documented By: Admin: 08/22/25 21:45 Dose: 10 mg Documented By: Admin: 08/22/25 14:09 Dose: 10 mg Documented By: Admin: 08/22/25 05:08 Dose: 10 mg Documented By: Admin: 08/21/25 21:12 Dose: 10 mg Documented By: Admin: 08/21/25 13:05 Dose: 10 mg Documented By: Admin: 08/21/25 05:51 Dose: 10 mg Documented By: Admin: 08/20/25 21:16 Dose: 10 mg Documented By: Admin: 08/20/25 14:30 Dose: 10 mg Documented By: Admin: 08/20/25 06:53 Dose: 10 mg Documented By: Admin: 08/19/25 21:06 Dose: 10 mg Documented By: CHRIS Midodrine (Midodrine 5 Mg Tablet) 5 mg PO X1 ONE Stop: 08/19/25 18:21 Last Admin: 08/19/25 18:36 Dose: 5 mg Documented By: ELIJAH Midodrine (Midodrine 5 Mg Tablet) 5 mg GT X1 ONE Stop: 08/30/25 00:24 Last Admin: 08/30/25 00:28 Dose: 5 mg Documented By: BRETT Midodrine (Midodrine 5 Mg Tablet) 10 mg GT TID IMANI Stop: 09/29/25 07:44 Last Admin: 09/01/25 05:24 Dose: 10 mg Documented By: Admin: 08/31/25 20:38 Dose: 10 mg Documented By: Admin: 08/31/25 13:42 Dose: 10 mg Documented By: Admin: 08/31/25 05:19 Dose: 10 mg Documented By: Admin: 08/30/25 21:23 Dose: 10 mg Documented By: Admin: 08/30/25 14:45 Dose: 10 mg Documented By: Admin: 08/30/25 07:39 Dose: 10 mg Documented By: Midodrine (Midodrine 5 Mg Tablet) 10 mg GT TID IMANI Stop: 09/29/25 13:59 Last Admin: 09/05/25 13:36 Dose: 10 mg Documented By: Admin: 09/05/25 06:13 Dose: 10 mg Documented By: Admin: 09/04/25 21:18 Dose: 10 mg Documented By: Admin: 09/04/25 13:53 Dose: 10 mg Documented By: Admin: 09/04/25 05:14 Dose: 10 mg Documented By: Admin: 09/03/25 21:41 Dose: 10 mg Documented By: Admin: 09/03/25 13:57 Dose: 10 mg Documented By: Admin: 09/03/25 05:21 Dose: 10 mg Documented By: Admin: 09/02/25 20:14 Dose: 10 mg Documented By: Admin: 09/02/25 13:51 Dose: 10 mg Documented By: Admin: 09/02/25 05:19 Dose: 10 mg Documented By: Admin: 09/01/25 20:28 Dose: 10 mg Documented By: Admin: 09/01/25 13:55 Dose: 10 mg Documented By: Morphine Sulfate (Morphine Sulf Inj 4 Mg/Ml Vial) 2 mg IVP X1 ONE Stop: 08/25/25 11:21 Last Admin: 08/25/25 11:50 Dose: 2 mg Documented By: ALLISON Multivitamins (Multivitamins Tablet) 1 tab NG QDAY IMANI Stop: 09/19/25 09:14 Last Admin: 09/05/25 09:04 Dose: 1 tab Documented By: Admin: 09/04/25 09:33 Dose: 1 tab Documented By: Admin: 09/03/25 09:01 Dose: 1 tab Documented By: Admin: 09/02/25 09:03 Dose: 1 tab Documented By: Admin: 09/01/25 09:09 Dose: 1 tab Documented By: Admin: 08/31/25 10:17 Dose: 1 tab Documented By: CARYN Comments: late due to multiple pt meds Admin: 08/30/25 09:47 Dose: 1 tab Documented By: Admin: 08/29/25 09:04 Dose: 1 tab Documented By: Admin: 08/28/25 08:46 Dose: 1 tab Documented By: Admin: 08/27/25 09:15 Dose: 1 tab Documented By: Admin: 08/26/25 08:11 Dose: 1 tab Documented By: Admin: 08/25/25 11:09 Dose: Not Given Documented By: FROYLAN Non-Admin Reason: NPO Admin: 08/24/25 08:05 Dose: 1 tab Documented By: Admin: 08/23/25 08:29 Dose: 1 tab Documented By: Admin: 08/22/25 08:19 Dose: 1 tab Documented By: Admin: 08/21/25 08:21 Dose: 1 tab Documented By: Admin: 08/20/25 09:30 Dose: 1 tab Documented By: Nystatin (Nystatin Cr 30 Gm Tube) 0 gm TOP BID IMANI Stop: 09/29/25 20:59 Last Admin: 09/05/25 09:04 Dose: 1 applicatio Documented By: Admin: 09/04/25 21:16 Dose: 1 applicatio Documented By: Admin: 09/04/25 09:34 Dose: 1 applicatio Documented By: Admin: 09/03/25 20:43 Dose: 1 applicatio Documented By: Admin: 09/03/25 09:02 Dose: 1 applicatio Documented By: Admin: 09/02/25 20:15 Dose: 1 applicatio Documented By: Admin: 09/02/25 09:03 Dose: 1 applicatio Documented By: Admin: 09/01/25 20:28 Dose: 1 applicatio Documented By: Admin: 09/01/25 09:10 Dose: 1 applicatio Documented By: Admin: 08/31/25 20:40 Dose: 1 applicatio Documented By: Admin: 08/31/25 10:28 Dose: 1 applicatio Documented By: CARYN Comments: late due to multiple pt meds Admin: 08/30/25 21:27 Dose: 1 applicatio Documented By: Oxycodone/Acetaminophen (Oxycodone/Apap 5/325 Tablet) 1 tab GT Q6H PRN PRN Reason: PAIN SCALE 4-6 (Moderate Stop: 08/24/25 15:33 Oxycodone/Acetaminophen (Oxycodone/Apap 5/325 Tablet) 1 tab GT Q6H PRN PRN Reason: AGITATION Stop: 08/24/25 15:33 Pantoprazole Sodium (Pantoprazole Inj 40 Mg Vial) 40 mg IVP QDAY [facility] Stop: 09/19/25 08:59 Last Admin: 08/20/25 08:49 Dose: 40 mg Documented By: Pantoprazole Sodium (Pantoprazole Inj 40 Mg Vial) 40 mg IVP BID [facility] Stop: 09/21/25 08:59 Last Admin: 08/26/25 08:12 Dose: 40 mg Documented By: Admin: 08/25/25 22:21 Dose: 40 mg Documented By: Admin: 08/25/25 08:20 Dose: 40 mg Documented By: Admin: 08/24/25 20:52 Dose: 40 mg Documented By: Admin: 08/24/25 08:08 Dose: 40 mg Documented By: Admin: 08/23/25 21:38 Dose: 40 mg Documented By: Admin: 08/23/25 08:28 Dose: 40 mg Documented By: Admin: 08/22/25 21:45 Dose: 40 mg Documented By: Admin: 08/22/25 08:43 Dose: 40 mg Documented By: Pantoprazole Sodium (Pantoprazole Inj 40 Mg Vial) 40 mg IVP QDAY [facility] Stop: 09/26/25 08:59 Last Admin: 09/01/25 12:51 Dose: Not Given Documented By: Non-Admin Reason: Discontinued Admin: 08/30/25 09:47 Dose: 40 mg Documented By: Admin: 08/29/25 09:05 Dose: 40 mg Documented By: Admin: 08/28/25 08:46 Dose: 40 mg Documented By: Admin: 08/27/25 09:16 Dose: 40 mg Documented By: DIONISIO Pantoprazole Sodium (Pantoprazole 40 Mg Tablet) 40 mg PO QDAY [facility] Stop: 10/01/25 08:59 Last Admin: 09/01/25 10:04 Dose: Not Given Documented By: Non-Admin Reason: Discontinued Pantoprazole Sodium (Pantoprazole Inj 40 Mg Vial) 40 mg IVP QDAY [facility] Stop: 10/01/25 09:14 Last Admin: 09/05/25 09:02 Dose: 40 mg Documented By: Admin: 09/04/25 09:30 Dose: 40 mg Documented By: Admin: 09/03/25 09:01 Dose: 40 mg Documented By: Admin: 09/02/25 09:02 Dose: 40 mg Documented By: Admin: 09/01/25 09:08 Dose: 40 mg Documented By: Pharmacy Consult (Vancomycin Pharmacy To Dose 1 Each Each) 1 each IV QDAY PRN PRN Reason: PROTOCOL Stop: 09/19/25 08:59 Pharmacy Consult (Pharmacy Renal Dose Adjustment 1 Ea) 1 each XX PRN PRN; Protocol PRN Reason: CONSULT Stop: 09/19/25 10:22 Pharmacy Consult (Vancomycin Pharmacy To Dose 1 Each Each) 1 each IV QDAY [facility] Stop: 09/26/25 18:14 Last Admin: 08/27/25 23:51 Dose: Not Given Documented By: JOANNE Non-Admin Reason: Duplicate Medication on eMAR Pharmacy Consult (Vancomycin Pharmacy To Dose 1 Each Each) 1 each IV QDAY PRN PRN Reason: PROTOCOL Stop: 09/26/25 18:14 Potassium Chloride (Potassium Chloride 10% 20 Meq/15 Ml Udc) 40 meq GT X1 ONE Stop: 08/21/25 06:57 Last Admin: 08/21/25 07:38 Dose: 40 meq Documented By: Potassium Chloride (Potassium Chloride 10% 20 Meq/15 Ml Udc) 40 meq GT X1 ONE Stop: 08/22/25 07:42 Last Admin: 08/22/25 07:49 Dose: 40 meq Documented By: Potassium Chloride (Potassium Chloride 10% 20 Meq/15 Ml Udc) 40 meq GT X1 ONE Stop: 08/30/25 14:34 Last Admin: 08/30/25 14:52 Dose: 40 meq Documented By: Sennosides (Sennosides Syrup 8.8 Mg/5 Ml Udc) 8.8 mg GT BID IMANI; Protocol Stop: 09/20/25 20:59 Last Admin: 08/21/25 21:13 Dose: 8.8 mg Documented By: KOBEN Simethicone (Simethicone 80 Mg Chew) 80 mg GT X1 ONE Stop: 08/21/25 11:48 Last Admin: 08/21/25 13:05 Dose: 80 mg Documented By: MR Simethicone (Simethicone 80 Mg Chew) 80 mg GT BID IMANI Stop: 09/20/25 20:59 Last Admin: 09/05/25 09:04 Dose: 80 mg Documented By: [email or web address] Admin: 09/04/25 21:16 Dose: 80 mg Documented By: Admin: 09/04/25 09:33 Dose: 80 mg Documented By: [email or web address] Admin: 09/03/25 20:43 Dose: 80 mg Documented By: Admin: 09/03/25 09:01 Dose: 80 mg Documented By: Admin: 09/02/25 20:15 Dose: 80 mg Documented By: Admin: 09/02/25 09:03 Dose: 80 mg Documented By: Admin: 09/01/25 20:28 Dose: 80 mg Documented By: Admin: 09/01/25 09:09 Dose: 80 mg Documented By: Admin: 08/31/25 20:38 Dose: 80 mg Documented By: Admin: 08/31/25 10:17 Dose: 80 mg Documented By: CARYN Comments: late due to multiple pt meds Admin: 08/30/25 21:27 Dose: 80 mg Documented By: Admin: 08/30/25 09:47 Dose: 80 mg Documented By: Admin: 08/29/25 20:57 Dose: 80 mg Documented By: Admin: 08/29/25 09:04 Dose: 80 mg Documented By: Admin: 08/28/25 21:21 Dose: 80 mg Documented By: Admin: 08/28/25 08:47 Dose: 80 mg Documented By: Admin: 08/27/25 21:39 Dose: 80 mg Documented By: Admin: 08/27/25 09:15 Dose: 80 mg Documented By: Admin: 08/26/25 22:12 Dose: 80 mg Documented By: Admin: 08/26/25 08:11 Dose: 80 mg Documented By: Admin: 08/25/25 22:20 Dose: 80 mg Documented By: Admin: 08/25/25 11:10 Dose: Not Given Documented By: FROYLAN Non-Admin Reason: NPO Admin: 08/24/25 20:58 Dose: 80 mg Documented By: Admin: 08/24/25 08:05 Dose: 80 mg Documented By: Admin: 08/23/25 21:38 Dose: 80 mg Documented By: Admin: 08/23/25 08:29 Dose: 80 mg Documented By: Admin: 08/22/25 21:45 Dose: 80 mg Documented By: Admin: 08/22/25 08:19 Dose: 80 mg Documented By: Admin: 08/21/25 21:12 Dose: 80 mg Documented By: REHANA Sodium Bicarbonate (Sodium Bicarb Inj 8.4% Syr 50 Ml Syringe) 50 ml IV X1 ONE Stop: 08/29/25 12:29 Last Admin: 08/29/25 14:44 Dose: 50 ml Documented By: LAURIE Sodium Bicarbonate (Sodium Bicarb Inj 8.4% Syr 50 Ml Syringe) 50 ml IV X1 ONE Stop: 08/30/25 07:23 Last Admin: 08/30/25 07:39 Dose: 50 ml Documented By: Sodium Bicarbonate (Sodium Bicarb Inj 8.4% Syr 50 Ml Syringe) 50 ml IV X1 ONE Stop: 08/30/25 14:33 Last Admin: 08/30/25 14:52 Dose: 50 ml Documented By: Zinc Sulfate (Zinc Sulfate 220 Mg Capsule) 220 mg NG QDAY IMANI Stop: 09/19/25 09:14 Last Admin: 09/05/25 09:04 Dose: 220 mg Documented By: Admin: 09/04/25 09:33 Dose: 220 mg Documented By: Admin: 09/03/25 09:01 Dose: 220 mg Documented By: Admin: 09/02/25 09:03 Dose: 220 mg Documented By: Admin: 09/01/25 09:09 Dose: 220 mg Documented By: Admin: 08/31/25 10:16 Dose: 220 mg Documented By: CARYN Comments: late due to multiple pt meds Admin: 08/30/25 09:47 Dose: 220 mg Documented By: Admin: 08/29/25 09:04 Dose: 220 mg Documented By: Admin: 08/28/25 08:46 Dose: 220 mg Documented By: Admin: 08/27/25 09:16 Dose: 220 mg Documented By: Admin: 08/26/25 08:11 Dose: 220 mg Documented By: Admin: 08/25/25 11:09 Dose: Not Given Documented By: DB Non-Admin Reason: NPO Admin: 08/24/25 08:06 Dose: 220 mg Documented By: Admin: 08/23/25 08:29 Dose: 220 mg Documented By: ZKelsy Admin: 08/22/25 08:20 Dose: 220 mg Documented By: Admin: 08/21/25 08:21 Dose: 220 mg Documented By: Admin: 08/20/25 09:28 Dose: 220 mg Documented By: See above if any Consultations Consultation(s) initiated? (list below): Yes Consultation #1 (Physician, Specialty, Details): Discussed with resident physician, Dr. Han Man, for admission. Reviewed the patient?s HPI, PMHx, lab and/or radiology results. Discussed treatment plan. Will consult an admission to the hospitalist. Time: 13:10 Diagnosis Differential diagnosis altered mental status: altered mental status, delirium, hypoglycemia, hyponatremia and sepsis Most likely diagnosis given after review of the tests above:: UTI Sepsis Admission Indicated Admission indicated?: indicated Explain why admission is indicated or not indicated:: UTI Sepsis Admission Request Was there a request for admission?: Yes Admission Attestation Admission request attestation: Discussed case with [] from Hospitalist service regarding admission. Discussed patients ED course, exam findings, labs, and radiology results. The Hospitalist [agrees,declines] to accept the patient for admission. Disposition Plan Disposition Plan: Admit Critical Care Time Critical Care Time Critical Care Time: Yes Total Critical Care Time (min.): 40 Attestation: The high probability of sudden, clinically significant deterioration in the patient?s condition required the highest level of my preparedness to intervene urgently. The services I provided to this patient were to treat and/or prevent clinically significant deterioration. Services included the following: chart data review, reviewing nursing notes and/or old charts, documentation time, healthcare consultant collaboration regarding findings and treatment options, medication orders and management, direct patient care, vital sign assessments and ordering, interpreting and reviewing diagnostic studies and lab tests. Aggregate critical care time includes only time during which I was engaged in work directly related to the patient?s care, as described above, whether at bedside or elsewhere in the Emergency Department. It did not include time spent performing other reported procedures or the services of residents, students, nurses or physician assistants. Discharge Plan Plan Patient Disposition: Admit Acute Care w/in Hospital Patient condition on transfer: Benefits outweigh risks Problem List Clinical Impression: Sepsis secondary to UTI Patient/Caregiver Discharge Instructions Discharge Activity: resume usual activities
--- NOTE | 2025-08-19 09:41 | EKG_ITS ---
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1945 Requested By: Nohemy Doran Order Number: [id number] Reading MD: Nohemy Doran Measurements Intervals [place] Rate: 111 P: 55 ID: [id number] QRS: 18 QRSD: 82 T: 88 QT: 319 QTc: 434 Interpretive Statements SINUS TACHYCARDIA LOW QRS VOLTAGE IN PRECORDIAL LEADS [QRS DEFLECTION < 1.0 mV IN CHEST LEADS] ST ELEVATION, CONSIDER INFERIOR INJURY [MARKED ST ELEVATION W/O NORMALLY INFLECTED T-WAVE IN II/aVF] ACUTE SD Compared to ECG 05/23/2025 16:52:46 ST (T wave) deviation now present Myocardial infarct finding now present T-wave abnormality no longer present /store/S0/[id number].pdf
--- NOTE | 2025-08-19 09:41 | XR_ITS ---
[place]: AP chest single view TECHNIQUE: AP portable supine chest single view Date and time: August 19, 2025, 0950 hours, comparison 05/23/2025 INDICATIONS: Chest pain hypertension today. FINDINGS: Mild enlargement cardiac contour Prominent vascular congestion Significant pneumonia left base obscuring detail left hemidiaphragm with large left pleural effusion IMPRESSION: Significant pneumonia left base with large left pleural effusion
[2025-08-19 10:00] LABS: Lactate (Lactic Acid) 2.6 mMol/L (0.4-2.0)
[2025-08-19] MEDS: SODIUM CHLORIDE 0.9% 1000 ML 1,000 ML 999 ML IV ×2 (10:17→12:03)
[2025-08-19 10:21] LABS: Basophils # (Auto) 0.0 Thou/mm3 (0.0-0.2); Basophils % (Auto) 0 % (0-2.5); Eosinophils # (Auto) 0.0 Thou/mm3 (0.0-0.5); Eosinophils % (Auto) 0 % (0-10); Hematocrit 28.9 % (41.0-53.0); Hemoglobin 9.0 g/dL (13.5-16.0); Immature Granulocytes Auto 0.15 Thou/mm3 (0.00-0.00); Lymphocytes # (Auto) 2.5 Thou/mm3 (1.0-4.8); Lymphocytes % (Auto) 17 % (10-50); Mean Corpuscular HGB Conc 31.1 g/dl (31.0-37.0); Mean Corpuscular Hemoglobin 24.6 pg (25.0-35.0); Mean Corpuscular Volume 79 fL (80-100); Monocytes # (Auto) 1.6 Thou/mm3 (0.0-0.8); Monocytes % (Auto) 10 % (0-12); Neutrophils # (Auto) 11.0 Thou/mm3 (1.8-7.7); Neutrophils % (Auto) 72 % (37-80); Nucleated Red Blood Cell # 0.03 Thou/mm3 (0.00-0.00); Nucleated Red Blood Cell % 0 /100 WBC (0); Platelet Count 344 Thou/mm3 (140-440); RDW Standard Deviation 49.7 fL (35.1-43.9); Red Blood Count 3.66 Miln/mm3 (4.50-5.90); White Blood Count 15.4 Thou/mm3 (3.8-10.6)
[2025-08-19 10:28] LABS: INR 1.1 (0.9-1.3); Partial Thromboplastin Time 31.3 Seconds (22.0-36.0); Prothrombin Time 11.9 Seconds (9.0-12.2)
[2025-08-19 10:31] LABS: Alanine Aminotransferase 66 U/L (10-49); Albumin, Serum 4.1 gm/dL (3.4-4.8); Albumin/Globulin Ratio 0.9 (1.2-2.2); Alkaline Phosphatase 263 U/L (46-116); Anion Gap 11 (7-16); Aspartate Amino Transferase 41 U/L (0-34); BUN/Creatinine Ratio 40 Ratio (12-20); Bilirubin,Total 0.3 mg/dL (0.3-1.2); Blood Urea Nitrogen 48 mg/dL (9-23); Calcium 9.7 mg/dL (8.3-10.6); Calcium (Corrected) 9.7 mg/dL (8.5-10.1); Carbon Dioxide 23.4 mMol/L (20.0-31.0); Chloride 96 mMol/L (98-107); Creatinine (Component) 1.2 mg/dL (0.6-1.3); Globulin 4.8 gm/dL (2.3-3.5); Glucose 358 mg/dL (74-106); Lipase 41 U/L (12-53); Magnesium 2.6 mg/dL (1.6-2.6); Osmolality,Calculated 287 (275-295); Potassium 5.0 mMol/L (3.4-5.1); Procalcitonin 0.57 ng/ml (0.0-0.49); Sodium 130 mMol/L (136-145); Total Protein 8.9 gm/dL (5.7-8.2); Troponin I < 0.020 ng/mL (0.0-0.045); eGFR > 60 See Note
[2025-08-19] MEDS: ACETAMINOPHEN IVPB 1,000 MG/100 ML VIAL 250 MG IV (10:50)
--- NOTE | 2025-08-19 10:51 | XR_ITS ---
Examination: CT abdomen and pelvis without contrast. Coronal 3-D reconstructions. Sagittal 2-D reconstructions. Date and time of exam: August 19, 2025, 1324 hours, comparison May 03, 2025 INDICATIONS: Hypertension, diarrhea, sepsis alert today CTDI: vol (mGy): 21 DLP: (mGycm): 1155 Technique: Axial images of the abdomen have been obtained, 3 mm slice thickness Intravenous contrast material has not been administered. Low dose protocols were performed. One or more of the following dose reduction techniques were used; automated exposure control, adjustment of the mA and/or KV according to patient size, use of iterative reconstruction technique. Findings: Bibasilar pneumonia with significant bilateral pleural effusions Prominent pericardial effusion measuring up to 33 mm Mild enlargement cardiac contour No visualized liver or splenic lesion, hepatomegaly 25 cm Gastrostomy tube in the stomach No gallstones No pancreatic mass Calcified probable cyst upper pole right kidney No hydronephrosis renal or ureteral calculi Normal appendix No bowel obstruction No bowel obstruction Moderate prostatomegaly Urinary bladder wall thickening, prominent Severe osteopenia IMPRESSION: Significant bibasilar pneumonia Significant bilateral pleural effusions Prominent pericardial effusion measuring up to 33 mm Gastrostomy tube satisfactory position No bowel obstruction No bowel obstruction or diverticulitis Moderate prostatomegaly Marked thickening of the urinary bladder wall, differential would include cystitis, urinary tract outflow obstruction secondary to prostatomegaly, bladder carcinoma not excluded, clinical correlation advised and follow-up recommended
--- NOTE | 2025-08-19 10:51 | XR_ITS ---
Examination: CT brain head without contrast. 2-D sagittal coronal reconstructions Date and time of exam: August 19, 2025, 1307 hours, comparison April 27, 2025 INDICATIONS: Altered mental status today CTDI: vol (mGy): 54.7 DLP: (mGycm): 1129 Technique: Multiple CT axial sections of the brain have been obtained, 5 mm slice thickness. Contrast has not been administered. 2-D sagittal, coronal reconstructions have been obtained Low dose protocols were performed. One or more of the following dose reduction techniques were used; automated exposure control, adjustment of the mA and/or KV according to patient size, use of iterative reconstruction technique. Findings: No significant ventricular enlargement. Old infarcts right frontal lobe right temporal lobe Intra-axial or extra-axial hemorrhage density is not seen. No mass effect or midline shift Basal cisterns are not remarkable. Fourth ventricle is midline. Cranial vault intact. Impression: Negative for acute hemorrhage, mass effect or midline shift Advise clinical correlation and follow-up accordingly
[2025-08-19 10:54] LABS: B-Type Natriuretic Peptide 150 pg/mL (0-100)
[2025-08-19] MEDS: cefTRIAXone/D5w 1gm IV premix 1 GM/50 ML BAG IV (11:13)
--- NOTE | 2025-08-19 12:47 | PC.LAC ---
Patient brief changed, soiled of loose brown stool, clean dry brief applied.
[2025-08-19 12:51] LABS: Collection Type, Urine Clean Catch; Squamous Epithelial Cell,Urine 0 /hpf (0-5)
[2025-08-19 12:57] LABS: Reflex Lactate? Y
[2025-08-19 13:13] LABS: Bacteria,Urine 2+; Bilirubin,Urine Negative (Negative); Blood,Urine 2+ (Negative); Clarity,Urine Turbid (Clear/Hazy); Color,Urine Yellow (Lt Yel-Yel); Glucose, Urine Negative (Negative); Ketones,Urine Negative (Negative); Leukocyte Esterase,Urine Positive (Negative); Nitrite,Urine Negative (Negative); PH,Urine 6.5 (5.0-7.0); Protein,Urine 2+ (Neg - Trace); RBC,Urine 121 /hpf (0-3); Specific Gravity,Urine 1.023 (1.001-1.035); Urobilinogen,Urine Negative mg/dL (0.0-1.0); WBC,Urine 294 /hpf (0-5)
--- NOTE | 2025-08-19 13:35 | PC.NURSE ---
IV loc to right ac infilitrated, ok to do ct abd without contrast per dr. Orantes.
--- NOTE | 2025-08-19 13:48 | PC.NURSE ---
Dr. Orantes at bedside to do iv via u/s.
[2025-08-19 14:20] LABS: Lactic Acid, 3 HR 2.4 mMol/L (0.4-2.0)
--- NOTE | 2025-08-19 14:33 | ECHO_ITS ---
Patient Info Name: Kwadwo Sanchez Age: 80 years : 1945 Gender: Male Ht: 193 cm Wt: 124 kg BSA: 2.61 m2 BP: 100 / 50 mmHg HR: 88 bpm Exam Date: 08/19/2025 5:35 PM Admit Date: 08/19/2025 Site: [facility] Room Number: ER Patient Status: I Technical Quality: Poor Exam Type: CA echo doppler complete Reason for Poor Study: poor patient cooperation, poor echocardiographic windows, patient intubated Saddle And Side Wire Stitcher: Brina Oquendo Ordering Physician: Brian Man Study Info Indications Pericardial effusion - Primary Location: [facility] Left Ventricular Outflow Tract Name Value Normal LVOT Doppler LVOT Peak Velocity 64 cm/s LVOT Mean Gradient 1 mmHg LVOT VTI 9 cm LVOT VTI/AV VTI Ratio 0.6 Mitral Valve Name Value Normal MV Doppler MV Decel Finney 269 cm/s2 MV PHT 37 ms MV Area (PHT) 6.0 cm2 4.0-5.0 MV Diastolic Function MV E Peak Velocity 34 cm/s MV A Peak Velocity 55 cm/s MV E/A 0.6 MV Annular TDI MV Septal e' Velocity 6.6 cm/s MV E/e' (Septal) 5.1 MV Lateral e' Velocity 5.7 cm/s MV E/e' (Lateral) 6.0 MV e' Average 6.15 cm/s MV E/e' (Average) 5.6 Tricuspid Valve Name Value Normal Estimated PAP/RSVP RA Pressure 8 mmHg <=5 TV Annular TDI TV Lateral Johana s' Velocity 7.1 cm/s >=9.5 Aortic Valve Name Value Normal AV 2D/MM AV Cusp Sep (MM) 1.5 cm AV Doppler AV Peak Velocity 86 cm/s AV Mean Gradient 2 mmHg AV VTI 15 cm AV DI (Benton) 0.75 Ventricles Name Value Normal LV Dimensions 2D/MM IVS Diastolic Thickness (2D) 1.0 cm 0.6-1.0 LVID Diastole (2D) 5.3 cm 4.2-5.8 LVIW Diastolic Thickness (2D) 1.1 cm 0.6-1.0 LVID Systole (2D) 4.4 cm 2.5-4.0 LV Mass (2D Cubed) 213.88 g 88.00-224.00 LV Mass Index (2D Cubed) 82 g/m2 49-115 Relative Wall Thickness (2D) 0.42 <=0.42 IVS/LVIW Diastolic Thickness (2D) 0.91 0.00-1.50 LV Fractional Shortening/Ejection Fraction 2D/MM LV Fractional Shortening (2D) 17 % 25-43 LV EF (2D Teichholz) 35 % RV Dimensions 2D/MM TV Lateral Johana s' Velocity 7.1 cm/s >=9.5 Left Ventricle Left ventricular chamber dimension is normal. Left ventricular systolic function is mildly reduced with visually estimated ejection fraction of 45-50%. There is normal geometry noted in the left ventricle. Left ventricular segmental wall motion is normal. There is grade I diastolic dysfunction in the left ventricle. Right Ventricle Right ventricular chamber dimension is normal. Right ventricular systolic function is normal. Left Atrium Left atrial chamber dimension is normal. Right Atrium Right atrial chamber dimension is normal. Aortic Valve The aortic valve is not well visualized. There is no aortic valve sclerosis. There is no aortic valve stenosis. There is no aortic valve regurgitation. Pulmonic Valve The pulmonic valve is not well visualized. Mitral Valve The mitral valve has normal leaflets. There is no mitral valve stenosis. There is trace mitral valve regurgitation. Tricuspid Valve The tricuspid valve leaflets are normal. There is no tricuspid valve stenosis. There is trace tricuspid valve regurgitation. Unable to estimate pulmonary artery systolic pressure due to inadequate tricuspid regurgitant envelope. Pericardium/Pleural The pericardium is thickened. There is moderate pericardial effusion with no tamponade. Pleural effusion visualized. Inferior Vena Cava Not well visualized inferior vena cava with >50% collapse upon inspiration consistent with normal right atrial pressure, 8 mmHg. Aorta The aortic measurements are indexed to age and body surface area. The aortic root at the sinus of Valsalva is not well visualized. The prox ascending aorta is not well visualized. Summary 1. Left ventricle size is normal and systolic function is mildly reduced. Estimated ejection fraction is 45-50%. There is grade I diastolic dysfunction. 2. Right ventricle chamber size is normal and systolic function is normal. 3. There is trace mitral valve regurgitation. 4. There is trace tricuspid valve regurgitation. 5. The left atrium is normal. The right atrium is normal. 6. Not well visualized IVC with estimated RA pressure 8 mmHg. 7. Moderate pericardial effusion, no tamponade. Report Signatures Finalized by Jamie Tarango on 08/19/2025 07:42 PM
[2025-08-19 14:51] LABS: Troponin I < 0.020 ng/mL (0.0-0.045)
--- NOTE | 2025-08-19 15:47 | ESHP_ITS ---
<Statement entered by Brian Man MD - 08/19/25 16:50> 80-year-old male with a past medical history of CVA status post trach and PEG, DVT eliquis, GI bleed, hypertension, hyperlipidemia, type 2 diabetes mellitus, MRSA pneumonia bacteremia, Pseudomonas UTIs, and chronic pressure ulcers who presents from [facility] after being found to have a fever and tachycardic and being admitted for sepsis pneumonia complicated by pleural effusion versus UTI and pericardial effusion. Initial vitals show BP 99/64, pulse 112, RR 22, temp 1 to 2.4 ?F, on mechanical ventilation (unsure patient's baseline). CBC shows WBC of 15, hemoglobin of 9. CHEM panel significant for sodium of 130, BUN of 48, glucose of 358, lactate 2.6, mildly elevated LFTs and ALP, negative troponin, Pro-Tevin 0.5. UA showing 294 WBC, 2+ bacteria, 121 RBC, LE positive. CXR shows significant left base pneumonia with large left pleural effusion. CT A/P showing prominent pericardial effusion up to 2 to 3 mm and markedly thickened urinary bladder wall, with significant bilateral pleural effusions and pneumonia. EKG showing mild ST elevations in multiple leads. Blood and urine cultures obtained. Will start patient on Zosyn given previous culture results. Spoke to cardiology in place consult for pericardial effusion and ordered stat echo. Also placed order for thoracentesis and will hold patient's eliquis in anticipation for procedure. ----- Note reviewed and agree with care plan as documented. Please refer to the note below for further details. Plan discussed with attending physician Dr. Mary Kay Man MD PGY-2 Internal Medicine Documentation for date of: 08/19/25 HPI History of Present Illness History of present illness: Mr. Kwadwo Sanchez is a 80 year old male w/ an extensive past medical history consisting of 2x CVA, hypoxic respiratory failure s/p tracheostomy, HTN, T2DM, Sacral ulcers, vertebral osteomyelitis, s/p PEG tube, chronic german catheterization and multiple DVT's coming in for altered mental status and tachycardia. Mr. Sanchez resides in [facility]. His most recent visit to [facility] for ventillator-associated pneumonia was in 05/2025, for which cultures grew Pseudomonas. Vitals on admission was significant for temperature of 102.5 and a heart rate of 112. Initial laboratory workup is also significant for leukocytosis and hyponatremia. Per , Mr. Sanchez was in good health, at his baseline until about a day ago, when he seemingly started to exhibit a greater amount of lethargy and tachycardia, to which the nursing facility promptly transferred him to [facility] On presentation in the ED, Mr. Sanchez is GCS 3 ~ E1V1M1 w/ tracheostomy place. He is unable to respond to verbal cues and stimulation, and substernal chest rub does not affect his mentation or alertness. HE remains VSS w/ ventilation through the tracheostomy. Motor response is minimal, unable to fully elicit a response to pain on substernal chest rub. His confirms his status as full code. Imaging in the ED is significant for CXR demonstrating bilateral pulmonary infiltrates, as confirmed on CT Chest. Admission orders placed for management of pneumonia, with cultures pending. Head CT is negative for any evidence of hemorrhage or mass effect that might explain Mr. Thomson's reported symptoms. Zosyn started for empiric coverage given the history of recent pseudomonas pneumonia, to follow up with cultures. Exam Vital Signs Temp Pulse Resp BP Pulse Ox O2 Del Method FiO2 98.4 F 87 22 H 101/74 99 Trach Collar 40 08/19/25 14:24 08/19/25 14:24 08/19/25 14:24 08/19/25 14:24 08/19/25 14:24 08/19/25 14:24 08/19/25 14:03 Narrative Exam General: Trach peg in place, Mr. Sanchez is somnolent on exam HEENT: NC/AT, mucous membranes moist, bilateral sclera anicteric Cardiovascular: regular rate and rhythm, S1/S2 present, no murmurs appreciated Pulmonary: clear to auscultation bilaterally, no rales/rhonchi/wheezes Abdominal: soft Musculoskeletal: no peripheral edema. ischemic lesions at distal toes bilaterally. Excoriations present, widespread throughout lower extremities Skin: Warm, well-perfused Results: Labs 08/23/25 04:25 08/23/25 04:25 Labs: Short CBC 08/19/25 Range/Units 09:48 WBC 15.4 H (3.8-10.6) Thou/mm3 Hgb 9.0 L (13.5-16.0) g/dL Hct 28.9 L (41.0-53.0) % Plt Count 344 D (140-440) Thou/mm3 BMP 08/19/25 09:48 Sodium 130 L Potassium 5.0 Chloride 96 L Carbon Dioxide 23.4 BUN 48 H Creatinine 1.2 Glucose 358 H Calcium 9.7 Cardiac Enzymes 08/19/25 08/19/25 Range/Units 09:48 14:14 Troponin I < 0.020 < 0.020 (0.0-0.045) ng/mL Liver Function 08/19/25 Range/Units 09:48 Total Bilirubin 0.3 (0.3-1.2) mg/dL AST 41 H (0-34) U/L ALT 66 H (10-49) U/L Alkaline Phosphatase 263 H (46-116) U/L Albumin 4.1 (3.4-4.8) gm/dL Urine 08/19/25 Range/Units 12:10 Urine Color Yellow (Lt Yel-Yel) Urine Clarity Turbid A (Clear/Hazy) Urine pH 6.5 (5.0-7.0) Ur Specific Mccall 1.023 (1.001-1.035) Urine Protein 2+ A (Neg - Trace) Urine Glucose (UA) Negative (Negative) Quality Measures Quality Measures sepsis Current suspected stage: sepsis Possible source: pulmonary Blood cultures ordered: yes Antibiotic ordered: Yes Advance care planning discussed with:: patient and spouse Medications Home Medications and Allergies Home Medications ?Medication ?Instructions ?Recorded ?Confirmed ?Type ascorbic acid (vitamin C) 500 mg 500 mg feeding tube B ID 01/05/22 08/20/25 History tablet ezetimibe 10 mg tablet 10 mg feeding tube QPM 01/0508/20/25 History multivitamin with minerals 15 ml feeding tube QDAY 10/2808/20/25 History lactulose 10 gram/15 mL oral 20 g feeding tube QDAY 08/20/25 History solution simethicone 80 mg chewable tablet 80 mg feeding tube B ID 08/14/22 08/20/25 History bisacodyl 10 mg rectal suppository 10 mg VT EVERYOTHER DAY PRN bowel 11/27/22 08/20/25 History gabapentin 300 mg capsule 600 mg feeding tube BID 11/0508/20/25 History atorvastatin 20 mg tablet 20 mg feeding tube QPM 05/2508/20/25 History sennosides 8.8 mg/5 mL oral syrup 5 ml feeding tube BI D 05/25/25 08/20/25 History (senna) apixaban 2.5 mg tablet (Eliquis) 2.5 mg PO BID 5 08/20/25 History diphenhydramine HCl 25 mg tablet 25 mg feeding tube Q4 H 08/20/25 08/20/25 History (Allergy Relief (diphenhydramine)) oxycodone 5 mg tablet 5 mg feeding tube Q6H PRN pa in 08/20/25 08/20/25 History Allergies Allergy/AdvReac Type Severity Reaction Status Date / Time adhesive tape Allergy Rash Verified 05/16/25 18:05 NYLA Inhibitors AdvReac Severe Upper Verified 04/20/24 14:37 Airway Edema ARB-Angiotensin Receptor AdvReac Severe Upper Verified 04/20/24 14:37 Antagonist Airway Edema Visit Medications Acetaminophen (Acetaminophen 325 Mg Tablet) 650 mg PO Q6H PRN PRN Reason: Fever >100.4 Stop: 09/18/25 15:09 Acetaminophen (Acetaminophen 325 Mg Tablet) 650 mg PO Q6H PRN PRN Reason: PAIN SCALE 1-3 (mild Stop: 09/18/25 15:14 Hydrocodone Bitart/Acetaminophen (Hydrocodone/Apap 10/325 Tab) 1 tab GT Q4HR PRN PRN Reason: PAIN SCALE 7-10 (Severe Stop: 08/24/25 15:33 Enoxaparin Sodium (Enoxaparin Sod Inj 40 Mg/0.4 Ml Syringe) 40 mg SC QDAY IMANI Stop: 09/03/25 08:59 Piperacillin Sod/Tazobactam (Sod 4.5 gm/ Sodium Chloride) 100 mls @ 200 mls/hr IV Q6HR IMANI; Protocol Stop: 08/26/25 15:36 Magnesium Hydroxide (Milk Of Magnesia Susp 30 Ml Udc) 30 ml GT QDAY PRN; Protocol PRN Reason: CONSTIPATION Stop: 09/18/25 15:14 Oxycodone/Acetaminophen (Oxycodone/Apap 5/325 Tablet) 1 tab GT Q6H PRN PRN Reason: PAIN SCALE 4-6 (Moderate Stop: 08/24/25 15:33 Pantoprazole Sodium (Pantoprazole Inj 40 Mg Vial) 40 mg IVP QDAY IMANI Stop: 09/19/25 08:59 Discontinued Medications Sodium Chloride (Ns) 1,000 mls @ 999 mls/hr IV .Q1H1M ONE Stop: 08/19/25 10:41 Last Infusion: 08/19/25 11:18 Dose: Infused Acetaminophen (Ofirmev Inj) 1,000 mg in 100 mls @ 250 mls/hr IV X1 ONE Stop: 08/19/25 10:28 Last Infusion: 08/19/25 11:14 Dose: Infused Ceftriaxone Sodium/Dextrose (Rocephin/D5w 1gm Iv Premix) 1 gm in 50 mls @ 100 mls/hr IV X1 ONE Stop: 08/19/25 10:56 Last Infusion: 08/19/25 11:46 Dose: Infused Sodium Chloride (Ns) 1,000 mls @ 999 mls/hr IV .Q1H1M ONE Stop: 08/19/25 13:00 Last Infusion: 08/19/25 13:04 Dose: Infused Assessment & Plan Plan #Pneumonia #Pleural Effusions #Sepsis Tracheostomy dependent Hx of admissions for pneumonia, pseudomonas + Fever, Leukocytosis Differential diagnosis = ventilator-associated pneumonias vs community-acquired pneumonia vs other CT Chest 08/19 Bilateral Pleural Effusions -Zosyn 4.5 mg 08/19 -> -Follow up blood cultures -Thoracentesis ordered, pending draw and cytology -Restarted home Midodrine 10mg TID #Urinary Tract Infection #Chronic German Catheter Use Hx of pseudomonas UTI Leukoesterase + on UA -Zosyn 4.5 mg 08/19 -> -Follow up urine cultures -Change indwelling german catheter ordered #Pericardial Effusion Pericardial Effusion 33mm found 08/19 CT Chest -Pending cardiology evaluation, recommendations -Pending ECHO #Tracheostomy #Respiratory Failure Tracheostomy [place] [address] Langford / chronic respiratory failure Has not been able to wean off trach -Continue trach ventilator -Consulted Respiratory Therapy -Duonebs q4h PRN for SoB #Nutrition #PEG-tube Dependence Hx of PEG tube dependence s/p stroke in 2021 -Nutrition consulted for Peg tube feeds recommendations #DVT Hx of Bilateral Femoral DVT's diagnosed 05/2025 -DVT prophylaxis = 5000 U q8h -Pending thoracentesis #HTN Admission BP 99/64 Fluid bolus given in ID -Holding home antihypertensives in the setting of hypovolemia - #T2DM -ISS -Restarted home regimen of 28U BID Long Acting Insulin #Sacral Ulcer Wound(s) Hx of sacral ulcer wounds -Wound nursing management #Hyperlipidemia -Holding home Atorvastatin 20mg q24h, elevated LFT's #Allergies Hx of angioedema w/ NYLA, ARB-Angiotensin receptor antagonists Hx of hives, itching, rash - heat vs other -Avoid use for management of BP medication -Benadryl 25mg q4H PRN per home med recs #Neuropathy Hx of bilateral neuropathy -Restarted home Gabapentin 600mg BID #Constipation -Restarted home dose of Lactulose 10gm/15mL q24 -Restarted home regimen Milk of Magnesia 400mg/5mL - give if no BM for 2 days #History of CVA Tracheostomy, PEG tube dependence Quadriplegic Last documented event of stroke = 08/19 CT Head no evidence of hemorrhagic stroke -Continued management of above conditions with corresponding therapies/medications -Holding home Eliquis before thoracentesis Patient seen and discussed with attending physician Dr. Zeyad Muñiz and senior resident Dr. Brian Gross MD PGY-1 Attending Provider Attestation/Addendum I have examined the patient, reviewed labs and imaging findings, discussed the case with the resident(s), and reviewed entered orders. I agree with the plan of care as outlined in this note, with these additional summaries/recommendations: After examination of the patient and review of the clinical data, I feel that this patient needs admission to the hospital for further treatment and evaluation. Patient is a 80-year-old male with a medical history of CVA status post trach and PEG, chronic respiratory failure on MV, insulin dependent diabetes mellitus type 2, primary hypertension, hyperlipidemia, history of MRSA pneumonia and bacteremia, Pseudomonas UTIs, constipation, and chronic pressure ulcers presents to [facility] emergency department on 08/19/2025 from SNF for fever and concern for infection.
--- NOTE | 2025-08-19 16:22 | PC.NURSE ---
THIS RADIAL DRILL PRESS OPERATOR ATTEMPTED TO CALL AND SPEAK WITH INPATIENT CASE MANAGEMENT TO INFORM OF THIS PATIENTS ADMISSION, PER STAFF IN ED, INPATIENT CARE MANAGEMENT ONLY WORKS WED-WEDNESDAY AND ATTEMPT TO CONTACT AT THIS TIME.
--- NOTE | 2025-08-19 17:02 | PC.NURSE ---
Informed Dr. joaquin tsai via telephone temp. 107.9 at this time, after iv tylenol, per md will place orders
--- NOTE | 2025-08-19 17:07 | PC.CC ---
Enriqueta INFANTE made face to face contact with patient. Patient is not alert and oriented to complete initial assessment. Enriqueta INFANTE attempted to make telephone contact with , Sherlyn Sanchez to complete initial assessment but was unsuccessful in reaching .
--- NOTE | 2025-08-19 17:25 | EDNOTE_ITS ---
<Statement entered by Nohemy Orantes MD - 08/21/25 17:41> As co-signing physician, I was present and available for consult prn. I concur with the plan and care as documented by the midlevel provider. ED Procedures Central Line Placement Right Femoral: Time Out Performed: Yes Patient Placed on Monitor/Pulse Ox: Yes Prep: mask, gown and gloves Central Line Prep: Povidone-Iodine 1% Local Anesthetic: lidocaine 1% Ultrasound Used for Placement: Yes Central Line Lumen Inserted: triple Post Procedure: sutured in place (x2), good blood return, all ports aspirated, flushed, capped and sterile dressing applied Patient Tolerated Procedure: other (mild complication) Complications: none
--- NOTE | 2025-08-19 17:35 | PC.NURSE ---
pharmacy called to bring Lispro for BG 275 per protocol orders and Zosyn IV
--- NOTE | 2025-08-19 17:37 | PC.NURSE ---
Allowed patient's back to er room 2 after x 3 attempts of central line insertion by er provider. informed of plan of care, requesting pain medication for patient, states she knows when he is in pain, Called Dr. Yeung, made him aware of 's request, he will place orders iv, do to patient unable to take anything po at this time.
[2025-08-19] MEDS: INSULIN LISPRO (AdmeLOG) 1 UNIT/0.01 ML UNIT SC (18:09)
[2025-08-19] MEDS: PIPER/TAZO INJ 4.5 GM in SODIUM CHLORIDE 0.9% (POP) 100 ML IV (18:10)
[2025-08-19] MEDS: LACTULOSE SYRUP 20 GM/30 ML UDC 10 GM PO (18:14)
[2025-08-19] MEDS: MIDODRINE 5 MG TABLET PO (18:36)
--- NOTE | 2025-08-19 19:26 | XR_ITS ---
EXAMINATION: AP chest single view TECHNIQUE: AP portable supine chest single view Date and time: August 19, 2025, 1948 hours, comparison 05/20/2025 0950 hours INDICATIONS: Status post cardiopulmonary arrest FINDINGS: Extensive bilateral pneumonia, consider aspiration pneumonia Mild prominence cardiac contour No pneumothorax Tracheostomy tube tip 8.5 cm above monica Prominent osteopenia No pneumothorax IMPRESSION: Extensive bilateral lung opacity, consider aspiration pneumonia
[2025-08-19] MEDS: Norepinephrine/NS 16mg/250ml 16 MG/250 ML BAG 5.807 MG IV (19:41)
[2025-08-19] MEDS: RINGERS LACTATED 1000 ML 1,000 ML 999 ML IV (19:44)
[2025-08-19 19:56] LABS: Basophils # (Auto) 0.1 Thou/mm3 (0.0-0.2); Basophils % (Auto) 0 % (0-2.5); Eosinophils # (Auto) 0.3 Thou/mm3 (0.0-0.5); Eosinophils % (Auto) 1 % (0-10); Hematocrit 25.9 % (41.0-53.0); Immature Granulocytes Auto 1.71 Thou/mm3 (0.00-0.00); Lymphocytes # (Auto) 13.2 Thou/mm3 (1.0-4.8); Lymphocytes % (Auto) 48 % (10-50); Mean Corpuscular HGB Conc 30.9 g/dl (31.0-37.0); Mean Corpuscular Hemoglobin 24.8 pg (25.0-35.0); Mean Corpuscular Volume 80 fL (80-100); Monocytes # (Auto) 1.6 Thou/mm3 (0.0-0.8); Monocytes % (Auto) 6 % (0-12); Neutrophils # (Auto) 10.6 Thou/mm3 (1.8-7.7); Neutrophils % (Auto) 39 % (37-80); Nucleated Red Blood Cell # 0.15 Thou/mm3 (0.00-0.00); Nucleated Red Blood Cell % 1 /100 WBC (0); Platelet Count 328 Thou/mm3 (140-440); RDW Standard Deviation 52.1 fL (35.1-43.9); Red Blood Count 3.22 Miln/mm3 (4.50-5.90); White Blood Count 27.4 Thou/mm3 (3.8-10.6)
[2025-08-19 19:58] LABS: Lactate (Lactic Acid) 8.2 mMol/L (0.4-2.0)
[2025-08-19 20:00] LABS: Hemoglobin 8.0 g/dL (13.5-16.0)
--- NOTE | 2025-08-19 20:15 | EDNOTE_ITS ---
Emergency Room Addendum Addendum Narrative: APRIL JUAN DIEGO called on patient shortly after arriving to the general medicine floor. Patient was seen in the emergency department earlier, was admitted with pneumonia and septic. Upon transfer from the emergency department [facility] to the inpatient hospital bed, patient heart rate dropped, pulses lost CPR immediately started. ACLS was followed. Resident physicians were already at bedside at the time that I arrived. Patient received epinephrine. I requested IV bicarbonate as well as calcium gluconate. Patient was in PEA arrest on multiple assessments however pulses were recovered. Patient was started on a norepinephrine drip. I reviewed the patient's chart. I performed a bedside ultrasound of the chest and heart. Patient does have a pericardial effusion however does not have tamponade physiology on assessment. Patient has bilateral pleural effusions however does not have whiteout of his lungs. Does not have any evidence of tracheal deviation nor pneumothorax. Patient appears to be fluid depleted based on assessment of the IVC, additional liter of fluids was provided. Patient antibiotics were broadened, vancomycin ordered at. Repeat labs ordered. Repeat chest x-ray showed possible aspiration on the right side. Dr. Tarango languages and literature instructor was consulted, read stat echo that was performed earlier today, agrees that patient is not in tamponade physiology per the echocardiogram. Family updated by resident physicians.
[2025-08-19 20:16] LABS: Allen Test Performed/OK; Base Excess -8 (-3-3); HCO3 20 mEq/L (20-26); Inspired Oxygen, FIO2 21 %; O2 Saturation 95 % (91-98); PCO2 47 mmHg (32.0-48.0); PO2 85 mmHg (83-108); Puncture Site Right Radial; pH, Arterial 7.23 (7.35-7.45)
[2025-08-19] MEDS: Norepinephrine/NS 16mg/250ml 16 MG/250 ML BAG 8.129 MG IV (20:20)
--- NOTE | 2025-08-19 20:32 | EVENTNT_ITS ---
Documentation for date of: 08/19/25 Event Note Event Note: On 08/19/2025 at 1915, rapid response was called for patient in tele room Matthew Sanchez due to bradycardia with a heart rate of 29. Upon the hospitalist team arrival at 1915, the patient had no pulse with PEA on the quality assurance monitor body. Herson Allan was called due to PEA. CPR had been initiated by the time the hospitalist team arrived. Cardiac pads were subsequently placed. Respiratory therapy initiated bagged breathing through the patient?s trach tube. Timeline of events: * 191: Compressions initiated, bagged breathing initiated via trach tube. * 1915: Compressions continued, hospitalist team arrived, 1 mg epinephrine admi nistered. * 1917: Pulse check: No pulse. Compressions resumed. * 1918: Compressions continued, 1 mg epinephrine administered. * 192: Pulse check: No pulse. Compressions resumed. 1 mg epinephrine admini stered. 1 amp calcium chloride administered. 1 amp of bicarb administered. * 1923: Pulse check: Femoral pulse palpated. * 1924: Patient moved to ICU. * 1930: Blood glucose: 157. Summary of administrations: * 3 mg epinephrine * 1 amp calcium chloride * 1 amp of bicarb Upon arrival to ICU the patient was started on a Levophed drip. He received a 1 L bolus of LR. Labs were reviewed during the above events and were significant for a lactate of 2.4. CBC, CMP, Lactate, procal, troponin, chest x-ray, and EKG were ordered. At 1937 when the patient was being established in the ICU, labs returned and were significant for WBC 27.4, lactate 8.2, and troponin 0.128. Repeat EKG was significant for diffuse ST segment changes in the lateral leads likely secondary to compressions, epinephrine, and pericardial effusion. ED physician Dr. Carrillo was present for the code and performed cardiac ultrasound in the ICU. Cardiology was consulted by the day team. Night hospitalist team spoke with Dr. Tarango who agreed on the evidence of a moderate pericardial effusion with no evidence of tamponade physiology. He recommended treating the underlying sepsis. Vancomycin was ordered. Care was assumed by the ICU team. The patient?s family was contacted and requested that the patient remain full code. Patient was seen and discussed with my senior resident Dr. Musa MOORE PGY-2. Chase Polk DO PGY-1.
[2025-08-19 20:38] LABS: Alanine Aminotransferase 78 U/L (10-49); Albumin, Serum 3.7 gm/dL (3.4-4.8); Albumin/Globulin Ratio 0.8 (1.2-2.2); Alkaline Phosphatase 247 U/L (46-116); Anion Gap 16 (7-16); Aspartate Amino Transferase 60 U/L (0-34); BUN/Creatinine Ratio 41 Ratio (12-20); Bilirubin,Total 0.3 mg/dL (0.3-1.2); Blood Urea Nitrogen 49 mg/dL (9-23); Calcium 10.4 mg/dL (8.3-10.6); Calcium (Corrected) 10.6 mg/dL (8.5-10.1); Carbon Dioxide 21.1 mMol/L (20.0-31.0); Chloride 98 mMol/L (98-107); Creatinine (Component) 1.2 mg/dL (0.6-1.3); Globulin 4.4 gm/dL (2.3-3.5); Glucose 342 mg/dL (74-106); Osmolality,Calculated 297 (275-295); Potassium 4.1 mMol/L (3.4-5.1); Procalcitonin 0.56 ng/ml (0.0-0.49); Sodium 135 mMol/L (136-145); Total Protein 8.1 gm/dL (5.7-8.2); eGFR > 60 See Note
[2025-08-19 20:43] LABS: Troponin I 0.128 ng/mL (0.0-0.045)
[2025-08-19] MEDS: MIDODRINE 5 MG TABLET 10 MG GT (21:06)
[2025-08-19] MEDS: GABAPENTIN 300 MG CAPSULE 600 MG GT (21:07)
[2025-08-19] MEDS: Vancomycin Inj 2,000 MG in SODIUM CHLORIDE 0.9% 500 ML 500 ML 150 MG IV (21:08)
--- NOTE | 2025-08-19 21:08 | PD.RESCONSUL ---
HPI Data of Consult Requesting Physician: Brian Man MD Admitting Provider: Brian Man MD Attending Provider: Brian Man MD Primary Care Provider: Alexa Heredia MD ([facility]) Consult Narrative Reason for consult: Post-cardiac arrest care and septic shock History of present illness: Mr. 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 Per and nursing facility, the patient was reportedly at his baseline until approximately 1 day prior to admission, when he developed increasing lethargy and tachycardia, prompting transfer to [facility]. On arrival, vital signs were significant for fever to 102.5?F, HR 112, BP 99/64, RR 22, and he was connected to the ventilator via tracheostomy, but unsure of his baseline ventilator dependence unclear. The patient was started on Zosyn empirically given prior history of Pseudomonas infections. Cardiology was consulted for pericardial effusion, and a stat echocardiogram was ordered. Thoracentesis was planned, and Eliquis was held in anticipation of procedure. Initial laboratory evaluation revealed leukocytosis (WBC 15 -->25), normocytic anemia with a repeat Hgb of 8, elevated BUN (48), hyperglycemia (glucose 358), elevated lactate (2.6 --> 8.2), mildly elevated LFTs/ALP, and procalcitonin 0.56. UA was grossly positive with WBCs 294, bacteria 2+, LE positive, concerning for UTI. CXR and CT chest demonstrated bilateral pneumonia with large bilateral pleural effusions (L > R). CT A/P showed marked bladder wall thickening and moderate pericardial effusion (~33 mm). EKG demonstrated slight ST elevations in leads II, III, but less than 1mm. Troponin was initially negative but later amy to 0.128 post?cardiac arrest. Shortly after transfer from the ED to the floor (19:06), a rapid response was called at 19:14 for profound bradycardia (HR 29?30). The patient subsequently became pulseless, and a Code Blue was initiated at 19:15. The patient received 3 rounds of epinephrine, CPR, bicarbonate, and calcium chloride, and was manually bagged after disconnecting from the ventilator. ROSC was achieved at 19:25, and the patient was upgraded to the ICU for further management post cardiac-arrest care and septic shock. See event note for CODE blue details in previous event note. Post-ROSC, bedside echo and formal cardiology evaluation showed preserved cardiac contractility with no evidence of tamponade physiology, despite moderate pericardial effusion. The patient was placed on Levophed for hypotension, antibiotics were broadened to Vancomycin + Zosyn, and ventilator settings were adjusted to VT 450 / RR 22 / FiO2 100%. Post-code ABG demonstrated a mixed metabolic and respiratory acidosis without appropriate compensation per Winter?s formula. Post-code CXR showed extensive bilateral pneumonia, concerning for aspiration. Family was contacted and confirmed FULL CODE status. cc:: cc: Brian Man MD Review of Systems Review of Systems ROS Unobtainable: unobtainable due to mental status Past Medical History Past Medical History Comments PMH COMMENT: PMH: As mentioned above SHX: Positive abdominal surgery, tracheostomy, gastrostomy and knee joint replacement Family history: Unobtainable Medications: To be reconciled Allergies: NYLA inhibitors, upper airway edema, ARB's for airway edema Exam Vital Signs Temp Pulse Resp BP Pulse Ox O2 Del Method FiO2 99.2 F 120 H 25 H 101/64 95 Mechanical Ventilation 90 08/19/25 20:00 08/19/25 20:45 08/19/25 20:20 08/19/25 20:45 08/19/25 20:45 08/19/25 18:39 08/19/25 20:35 Narrative Exam S/P CODE BLUE General: Critically ill-appearing elderly male, tracheostomy and PEG in place, unresponsive Neuro: GCS 9 ([id number]), response to painful stimuli and spontaneously opens eyes HEENT: NC/AT, MMM, sclera anicteric Cardiovascular: Tachycardic, no murmurs appreciated Pulmonary: Mechanically ventilated via trach with traces of fresh blood noted, diminished breath sounds bilaterally Abdomen: Soft, nondistended, PEG in place, with mild blood noted on insertion Extremities: 1+ pedal edema b/l, LE cold to touch, ischemic changes at distal toes bilaterally Skin: Warm; chronic sacral ulcers and widespread excoriations of lower extremities : German catheter in place Results Labs 08/20/25 03:25 08/20/25 03:25 Labs: Short CBC 08/19/25 08/19/25 Range/Units 09:48 19:38 WBC 15.4 H 27.4 H D (3.8-10.6) Thou/mm3 Hgb 9.0 L 8.0 L (13.5-16.0) g/dL Hct 28.9 L 25.9 L (41.0-53.0) % Plt Count 344 D 328 (140-440) Thou/mm3 BMP 08/19/25 08/19/25 09:48 19:38 Sodium 130 L 135 L Potassium 5.0 4.1 D Chloride 96 L 98 Carbon Dioxide 23.4 21.1 BUN 48 H 49 H Creatinine 1.2 1.2 Glucose 358 H 342 H Calcium 9.7 10.4 Cardiac Enzymes 08/19/25 08/19/25 08/19/25 Range/Units 09:48 14:14 19:38 Troponin I < 0.020 < 0.020 0.128 H* (0.0-0.045) ng/mL Liver Function 08/19/25 08/19/25 Range/Units 09:48 19:38 Total Bilirubin 0.3 0.3 (0.3-1.2) mg/dL AST 41 H 60 H (0-34) U/L ALT 66 H 78 H (10-49) U/L Alkaline Phosphatase 263 H 247 H (46-116) U/L Albumin 4.1 3.7 (3.4-4.8) gm/dL Urine 08/19/25 Range/Units 12:10 Urine Color Yellow (Lt Yel-Yel) Urine Clarity Turbid A (Clear/Hazy) Urine pH 6.5 (5.0-7.0) Ur Specific Warren 1.023 (1.001-1.035) Urine Protein 2+ A (Neg - Trace) Urine Glucose (UA) Negative (Negative) ABG Interpretation ABG results: 08/19/25 20:08 ABG pH 7.23 L ABG pCO2 47 ABG pO2 85 ABG HCO3 20 ABG O2 Saturation 95 ABG Base Excess -8 L Quality Measures Quality Measures sepsis Current suspected stage: septic shock (LA >4 and/or hypotension) Sepsis reassessment completed at (date): 08/19/25 Sepsis reassessment completed at (time): 19:25 Possible source: pulmonary Blood cultures ordered: yes Antibiotic ordered: Yes Advance care planning discussed with:: spouse Medications Home Medications and Allergies Home Medications ?Medication ?Instructions ?Recorded ?Confirmed ?Type ascorbic acid (vitamin C) 500 mg 500 mg feeding tube BID 01/05/22 05/25/25 History tablet aspirin 81 mg chewable tablet 81 mg feeding tube QDAY 01/05/22 05/25/25 History ezetimibe 10 mg tablet 10 mg feeding tube QPM 01/05/22 08/20/25 History melatonin 3 mg tablet 5 mg feeding tube HS 01/05/22 05/25/25 History multivitamin with minerals 15 ml feeding tube QDAY 01/05/22 08/20/25 History sodium phosphates 19 gram-7 118 ml SC PRN PRN Constipation 01/05/22 05/25/25 History gram/118 mL enema (Fleet Enema) lactulose 10 gram/15 mL oral 20 g feeding tube QDAY 08/14/22 08/20/25 History solution simethicone 80 mg chewable tablet 80 mg feeding tube BID 08/14/22 08/20/25 History bisacodyl 10 mg rectal suppository 10 mg SC EVERYOTHERDAY PRN bowel 11/27/22 08/20/25 History gabapentin 300 mg capsule 600 mg feeding tube BID 11/27/22 08/20/25 History atorvastatin 20 mg tablet 20 mg feeding tube QPM 05/25/25 08/20/25 History sennosides 8.8 mg/5 mL oral syrup 5 ml feeding tube BID 05/25/25 05/25/25 History (senna) apixaban 2.5 mg tablet (Eliquis) 2.5 mg PO BID 08/20/25 08/20/25 History Allergies Allergy/AdvReac Type Severity Reaction Status Date / Time adhesive tape Allergy Rash Verified 05/16/25 18:05 NYLA Inhibitors AdvReac Severe Upper Verified 04/20/24 14:37 Airway Edema ARB-Angiotensin Receptor AdvReac Severe Upper Verified 04/20/24 14:37 Antagonist Airway Edema Visit Medications Acetaminophen (Acetaminophen 325 Mg Tablet) 650 mg PO Q6H PRN PRN Reason: Fever >100.4 Stop: 09/18/25 15:09 Acetaminophen (Acetaminophen 325 Mg Tablet) 650 mg PO Q6H PRN PRN Reason: PAIN SCALE 1-3 (mild Stop: 09/18/25 15:14 Hydrocodone Bitart/Acetaminophen (Hydrocodone/Apap 10/325 Tab) 1 tab GT Q4HR PRN PRN Reason: PAIN SCALE 7-10 (Severe Stop: 08/24/25 15:33 Last Admin: 08/19/25 18:10 Dose: 1 tab Dextrose (Dextrose 50%-Water Inj 50 Ml Syringe) 25 ml IV Q15MIN PRN PRN Reason: BG 50-70 responsive npo pt Stop: 09/18/25 16:14 Dextrose (Dextrose 50%-Water Inj 50 Ml Syringe) 50 ml IV Q15MIN PRN PRN Reason: BG <50 OR BG <70 & pt unresponsive Stop: 09/18/25 16:14 Diphenhydramine HCl (Diphenhydramine Elix 25 Mg/10 Ml Udc) 25 mg GT Q4H PRN PRN Reason: Allergic Symptoms Stop: 09/18/25 17:01 Enoxaparin Sodium (Enoxaparin Sod Inj 40 Mg/0.4 Ml Syringe) 40 mg SC QDAY [facility] Stop: 09/03/25 08:59 Gabapentin (Gabapentin 300 Mg Capsule) 600 mg GT BID [facility] Stop: 09/18/25 20:59 Glucagon (Glucagon Inj 1 Mg Vial) 1 mg IM Q15MIN PRN PRN Reason: BG <70, and no IV access Hydromorphone HCl (Hydromorphone Inj 2 Mg/Ml Vial) 0.5 mg IVP Q6H PRN PRN Reason: BREAKTHROUGH Pain 4-10 Stop: 08/24/25 17:44 Piperacillin Sod/Tazobactam (Sod 4.5 gm/ Sodium Chloride) 100 mls @ 200 mls/hr IV Q6HR [facility]; Protocol Stop: 08/26/25 15:36 Last Admin: 08/19/25 18:48 Dose: Not Given Vancomycin HCl 2,000 mg/ (Sodium Chloride) 500 mls @ 150 mls/hr IV X1 ONE Stop: 08/19/25 23:10 Norepinephrine Bitartrate (Levophed In Ns 16mg/250ml) 16 mg in 250 mls @ 5.807 mls/hr IV .Q24H PRN; Protocol PRN Reason: PER PROTOCOL Stop: 09/18/25 19:27 Insulin Degludec (Insulin Degludec 5 Unit/0.05 Ml (Per 5 Units)) 28 unit SC BID [facility]; Protocol Stop: 09/18/25 20:59 Insulin Human Lispro (Insulin Lispro (Admelog) 1 Unit/0.01 Ml Unit) 0 unit SC AC [facility]; Protocol Stop: 09/18/25 16:59 Last Admin: 08/19/25 18:09 Dose: 4 unit Ipratropium Hudson (Ipratropium Rt 0.5 Mg/ 2.5 Ml Nebu) 0.5 mg INH Q4H PRN PRN Reason: SHORTNESS OF BREATH OR WHEEZE Stop: 09/18/25 17:03 Magnesium Hydroxide (Milk Of Magnesia Susp 30 Ml Udc) 30 ml GT QDAY PRN; Protocol PRN Reason: CONSTIPATION Stop: 09/18/25 15:14 Midodrine (Midodrine 5 Mg Tablet) 10 mg GT TID [facility] Stop: 09/18/25 21:59 Oxycodone/Acetaminophen (Oxycodone/Apap 5/325 Tablet) 1 tab GT Q6H PRN PRN Reason: PAIN SCALE 4-6 (Moderate Stop: 08/24/25 15:33 Pantoprazole Sodium (Pantoprazole Inj 40 Mg Vial) 40 mg IVP QDAY [facility] Stop: 09/19/25 08:59 Pharmacy Consult (Vancomycin Pharmacy To Dose 1 Each Each) 1 each IV QDAY [facility] Stop: 09/19/25 08:59 Discontinued Medications Diphenhydramine HCl (Diphenhydramine Elix 25 Mg/10 Ml Udc) 25 mg PO Q4H PRN PRN Reason: Allergic Symptoms Stop: 09/18/25 17:01 Gabapentin (Gabapentin 300 Mg Capsule) 600 mg PO BID [facility] Stop: 09/18/25 20:59 Sodium Chloride (Ns) 1,000 mls @ 999 mls/hr IV .Q1H1M ONE Stop: 08/19/25 10:41 Last Infusion: 08/19/25 11:18 Dose: Infused Acetaminophen (Ofirmev Inj) 1,000 mg in 100 mls @ 250 mls/hr IV X1 ONE Stop: 08/19/25 10:28 Last Infusion: 08/19/25 11:14 Dose: Infused Ceftriaxone Sodium/Dextrose (Rocephin/D5w 1gm Iv Premix) 1 gm in 50 mls @ 100 mls/hr IV X1 ONE Stop: 08/19/25 10:56 Last Infusion: 08/19/25 11:46 Dose: Infused Sodium Chloride (Ns) 1,000 mls @ 999 mls/hr IV .Q1H1M ONE Stop: 08/19/25 13:00 Last Infusion: 08/19/25 13:04 Dose: Infused Norepinephrine Bitartrate (Levophed In Ns 16mg/250ml) 16 mg in 250 mls @ 5.807 mls/hr IV .Q24H PRN; Protocol PRN Reason: PER PROTOCOL Stop: 09/18/25 19:27 Last Titration: 08/19/25 20:16 Dose: 0.07 mcg/kg/min, 8.129 mls/hr Lactated Ringer's (Lactated Ringers) 1,000 mls @ 999 mls/hr IV .Q1H1M ONE Stop: 08/19/25 20:42 Last Admin: 08/19/25 19:44 Dose: 999 mls/hr Insulin Human Lispro (Insulin Lispro (Admelog) 1 Unit/0.01 Ml Unit) 0 unit SC AC [facility]; Protocol Stop: 09/18/25 16:59 Insulin Human Lispro (Insulin Lispro (Admelog) 1 Unit/0.01 Ml Unit) 10 unit SC X1 ONE Stop: 08/19/25 16:39 Last Admin: 08/19/25 17:28 Dose: Not Given Lactulose (Lactulose Syrup 20 Gm/30 Ml Udc) 10 gm PO Q24H ONE; Protocol Stop: 08/19/25 17:10 Last Admin: 08/19/25 18:14 Dose: 10 gm Magnesium Hydroxide (Milk Of Magnesia Susp 30 Ml Udc) 30 ml PO Q24H PRN; Protocol PRN Reason: constipation Stop: 09/18/25 17:08 Midodrine (Midodrine 5 Mg Tablet) 10 mg PO TID [facility] Stop: 09/18/25 21:59 Midodrine (Midodrine 5 Mg Tablet) 5 mg PO X1 ONE Stop: 08/19/25 18:21 Last Admin: 08/19/25 18:36 Dose: 5 mg Assessment & Plan Plan Mr. 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 NEURO #Acute encephalopathy DDx: Hypoxic-ischemic brain injury vs Sepsis-associated encephalopathy vs electrolyte imbalance Dx: CT head 08/19 showed no hemorrhage, GCS was initially a 3, now is a 9. Serial Neurological Exams Rx: Supportive care, Optimize oxygenation and perfusion, Avoid hypotension/hypoxia, Serial neuro exams Treatment review: Prognosis guarded #History of CVA with quadriplegia See above CARDIO #Cardiac arrest w successful resuscitation DDx: Sepsis-induced bradyarrhythmia vs Hypoxia vs Metabolic acidosis vs Electrolyte abnormalities Dx:Patient presented with bradycardia and had a cardiac arrest, presenting with PEA, ROSC achieved after 3 rounds epinephrine; Post-code troponin 0.128, Post-code ABG: mixed acidosis, EKG Rx: ICU level monitoring, optimize oxygenation and perfusion, Vasopressor support, Serial labs and ABGs. F/u repeat EKG Treatment Review: High risk for hypoxic-ischemic injury and recurrent arrest #Septic Shock DDx: Pneumonia (ventilator-associated vs aspiration and b/l pleural effusions) vs Complicated UTI / CAUTI vs Bacteremia vs Infected pressure ulcers, Less likely intra-abdominal source Dx: Leukocytosis --> 27, Lactate 2.6 --> 8.2, Fever as high as 102.5?F, Hypotension requiring vasopressors, Blood and urine cultures pending, Bedside echo showed good contractility with collapsible IVC, CXR showed extensive bilateral lung opacity, consider aspiration pneumonia Rx: Broad-spectrum antibiotics: Vancomycin + Zosyn, Levophed infusion to maintain MAP >65, IV fluid resuscitation, Source control (German exchange, thoracentesis when stable), Trend Lactic acid, Continue with Midodrine TID via NG Treatment Review: Meets criteria for septic shock with vasopressor requirement and lactic acidosis #Pericardial Effusion DDx: Inflammatory (sepsis-related) vs Uremic vs Malignancy vs Chronic effusion Dx: CT chest: pericardial effusion ~33 mm, Echo: preserved contractility, no tamponade physiology, EKG: mild diffuse ST elevation, but less than 1mm in leads II and III, Echocardiogram showed normal LV size & systolic function is midly reduced, with EF 45-50%, trace MV and TV regurgitation, RA pressure 8mmHg, and Moderate pericardial effusion, with no tamponade. Rx: Cardiology consultation, Hemodynamic monitoring, No pericardiocentesis indicated currently Treatment Review: Effusion present but less likely contributing to current shock #Elevated Troponin DDx: NSTEMI type 2 vs type I (less likely) Dx: serial EKG, troponin trend Rx: Trend Troponin, treat underlying sepsis Treatment review: PULM #Acute on Chronic Hypoxic Respiratory Failure DDx: Severe pneumonia vs Aspiration PNA vs Pulmonary edema vs Pleural effusions vs Post-arrest lung injury Dx: CXR: extensive bilateral pneumonia, CT chest: bilateral infiltrates and effusions, ABG: mixed metabolic and respiratory acidosis Rx: Mechanical ventilation via tracheostomy, Lung-protective ventilation, serial ABGs for vent settings, pulmonary hygiene, Vancomycin and Zosyn Treatment Review: Remains ventilator dependent with high FiO2 needs #PNA DDx: Ventilator-associated pneumonia vs Aspiration pneumonia vs Multidrug-resistant organisms (Pseudomonas, MRSA) Dx: CXR/CT: bilateral opacities, Fever and leukocytosis, Respiratory cultures pending, MRSA nares Rx: Vancomycin + Zosyn, Suctioning and secretion management, Monitor oxygenation requirements Treatment Review: Severe pneumonia likely primary jinrikisha driver of sepsis #Bilateral Pleural Effusions DDx: Parapneumonic effusion vs Volume overload vs Acute on chronic b/l pleural effusions vs Malignancy (less likely) Dx: CT chest: large bilateral effusions (L > R) Rx: Thoracentesis ordered, will hold Lovenox for now; Monitor respiratory status Treatment Review: Likely contributing to respiratory failure GI/FEN #Mild transaminitis DDx: Shock liver vs Sepsis-related cholestasis vs Medication-related Dx: LFT trends, Abdominal imaging reviewed Rx: Monitor daily labs Treatment Review: #PEG tube dependence Dx: chronic PEG tube placement d/t hx of CVA s/p quadriplegia Rx: Tube feeds held, Nutrition consult for tube feeds when stable, Stress ulcer prophylaxis Treatment Review: Monitor tolerance for feeds and labs #History of GI bleed Dx: no overt signs of active GI bleed, mild blood seen s/p cardiac arrest from compressions seen in trach as well as blood noted around central line site. Rx: Monitor daily Hgb, currently at 8, however given a total of 3L bolus. Treatment review: RENAL #Mixed Acidosis DDx: Lactic acidosis from septic shock vs Hypoventilation post-arrest vs Renal hypoperfusion Dx: ABG: mixed acidosis (respiratory and metabolic, with pure anion gap), Lactate 8.2, Winter? formula: no appropriate compensation Rx: Treat underlying shock, Optimize ventilation, Repeat ABGs and trend lactate Treatment Review: Repeat ABG at 22:00 shows improvement in acidosis, will repeat in AM #MARGARETTE DDx: Pre-renal azotemia (sepsis) vs ATN post-arrest Dx: BUN 48, Cr increased from baseline 0.8 to 1.2, Creatinine trend monitoring Rx: Optimize MAP and volume status, Avoid nephrotoxins, Renal dosing of medications Treatment Review: High risk for progression in setting of shock HEME/ONC #History of Multiple DVTs Dx: Known bilateral femoral DVTs (05/2025) on Eliquis; failed to place IVC in the past hospitalization d/t right and left common femoral veins demonstrate occlusive thrombus precluding successful percutaneous access Rx: Hold Eliquis for thoracentesis Mechanical DVT prophylaxis, Resume anticoagulation when safe; coagulation panel ordered including antiphospholipid, homocysteine and cardiolipin abx Treatment Review: Balance bleeding vs clot risk daily, blood noted around L femoral line site ENDO #Type 2 Diabetes Mellitus DDx: Uncontrolled DM vs stress hyperglycemia vs Sepsis-induced insulin resistance Dx: Glucose >350, last Fingerstick was 157, F/u Hgb A1c in AM Rx: Insulin sliding scale; Basal insulin 28U BID per home regimen, Fingerstick glucose checks Q6H Treatment Review: Tight but safe glucose control needed between 140-180 ID #Sepsis see CARDIO #Chronic Pressure Ulcers DDx: 2/2 Chronic immobility Dx: Physical exam findings Rx: Wound care consult, Pressure offloading, Skin protection Treatment Review: Possible Source of potential secondary infection #Complicated UTI DDx: Pseudomonas UTI vs Chronic German colonization vs Urethritis Dx: UA: WBC 294, LE+, bacteria+, CT A/P: thickened bladder wall vs Urine culture pending; during german change in ICU, serosanguineous drainage noted in urethral meatus Rx: Zosyn and Vancomycin, German catheter exchanged in ICU, F/u with cx Treatment Review: Likely contributing infectious source #PNA see PULM MSK #Chronic Pressure Ulcers see ID Health Maintenance: DVT prophylaxis: Lovenox 40mg SC, currently held for possible thoracentesis tmw GI prophylaxis: Protonix 40mg IV Diet: NPO, has a chronic PEG tube German: Yes Lines: PIV, Left femoral line Drips: Levophed Vent: Tidal volume 470, respiratory rate 24,PEEP 5.0 CODE STATUS: Full code Disposition: Upgraded to ICU for s/p cardiac arrest and septic shock Patient's care and plan discussed with my attending, Dr. Alma Mandel, PGY-3 Attending Provider Attestation/Addendum After examining patient and review of the clinical data patient was found to have high probability of imminent deterioration which required my direct management and intervention TOTAL CC TIME: 60 MIN TOTAL TIME: 60 Minutes of direct medical management and planning of care. I Sofia Marquez MD, attest that I was physically present for herrera portions of evaluation, and examined patient, labs and imagings and plan of care were discussed with IM residents team, and I agree with the findings and plans documented above.
[2025-08-19] MEDS: INSULIN DEGLUDEC 5 UNIT/0.05 ML (PER 5 UNITS) 28 UNIT SC (21:09)
[2025-08-19 21:33] LABS: Path Review Blood Smear Sent to Pathologist
[2025-08-19 22:24] LABS: Base Excess -4 (-3-3); HCO3 21 mEq/L (20-26); Inspired Oxygen, FIO2 90 %; O2 Saturation 100 % (91-98); PCO2 36 mmHg (32.0-48.0); PO2 140 mmHg (83-108); pH, Arterial 7.38 (7.35-7.45)
[2025-08-19 22:25] LABS: Allen Test Performed/OK; Puncture Site Right Radial
[2025-08-19 22:49] LABS: Reflex Lactate? Y
[2025-08-19 23:34] LABS: Lactic Acid, 3 HR 3.9 mMol/L (0.4-2.0)
[2025-08-20] VITALS (104 sets, daily range): BP systolic 58–184; BP diastolic 45–114; PULSE 88–911; RESP 18–25; TEMP 36.2–36.7; O2SAT 82–100; BMI 32.7
--- NOTE | 2025-08-20 00:08 | ESCONSULT_ITS ---
RE: KIMI NI : 1945 DATE OF CONSULTATION: 08/19/2025 CONSULTING PHYSICIANS: Hospitalist and leave specialist. CHIEF COMPLAINT: Evaluation of pericardial effusion. REASON FOR CONSULTATION: Evaluation of pericardial effusion. HISTORY OF PRESENT ILLNESS: The patient is a 80-year-old male with a longstanding history of multiple medical problems, comorbidities, who is a resident of a nursing [facility] at [facility] with a longstanding history of brain injuries, almost in persistent vegetative state, not communicating, status post tracheostomy, PEG tube placement, recurrent DVT, unable to take anticoagulation because of GI bleed, status post IVC placement, hypertension, hyperlipidemia, diabetes mellitus, and multiple admissions to hospital, MRSA pneumonia, pseudomonas UTI, and chronic pressure ulcers, came to the hospital because he was having severe tachycardia, high fever, sepsis, and pneumonia with pleural effusion. Patient was also found to have CT scan showing evidence of moderate pericardial effusion and his blood pressure is borderline, 90/60. Temperature is elevated. Patient on mechanical ventilation with tracheostomy. Initial white count was elevated, 15,000. Bacteria was also 2+ in urinalysis. There was elevated LFTs and abnormal liver enzymes, glucose elevated, lactic acid elevated, BUN 48. Procalcitonin mildly elevated. Chest x-ray did show extensive left lower base pneumonia, large pleural effusion. CT scan showed a moderate pericardial effusion as well. I was consulted for cardiology. There was some mild ST changes in lead aVL. The patient was treated with IV fluids antibiotics and the patient was admitted to the hospital, but apparently coded with PEA arrest, requiring epinephrine and resuscitation. Patient was sent quickly to ICU. Cardiac echo was repeated because of pericardial effusion. Echo only showed moderate pericardial effusion. No evidence of tamponade. No need for any pericardiocentesis. PAST MEDICAL HISTORY: Multiple comorbidities as described earlier. Multiple admissions to hospital. SOCIAL HISTORY: Patient lives in a [facility] and skilled nursing facility. PHYSICAL EXAMINATION: GENERAL: Patient is critically ill looking male, right after the code. VITAL SIGNS: Blood pressure 101/74, on multiple vasopressors, Levophed. Temperature 99, respirations 22, pulse ox 99% on 40% FiO2. HEENT: Head is atraumatic. Showed evidence of tracheostomy in place. NECK: Supple. LUNGS: Decreased breath sounds on bases. HEART: S1, S2 regular. No gallops. ABDOMEN: Distended, soft. Patient also has a PEG tube on abdominal exam. EXTREMITIES: Mild edema. GENITOURINARY AND RECTAL: Not performed. NEUROLOGIC: Exam not performed as the patient has not been communicative. LABORATORY DATA: Showed hemoglobin 9, hematocrit 28, white count is 15.4. His initial sugar was on 358. Creatinine 1.2, BUN 48. ____. Troponin 2, troponin is negative. IMAGING STUDIES: Cardiac echo showed moderate pericardial effusion, no tamponade. CT scan showed moderate pericardial effusion as well. IMPRESSION: 1. Moderate pericardial effusion. No evidence of cardiac tamponade. 2. Left side pneumonia and pleural effusion with respiratory failure. 3. Status post tracheostomy and PEG tube placement. 4. Chronic brain damage with persistent vegetative state. 5. Status post PEA cardiopulmonary arrest secondary to septic shock, sepsis. RECOMMENDATION: Aggressively give IV fluids as tolerated and also broad- spectrum antibiotics. From cardiac point of view, no need for any pericardiocentesis. There is no evidence of echocardiogram signs of tamponade or clinical tamponade. DT: 23:01:03 TT: 00:07:00 Ref: [id number] - TID: [id number]
[2025-08-20] MEDS: INSULIN LISPRO (AdmeLOG) 1 UNIT/0.01 ML UNIT SC ×2 (00:45→06:37)
[2025-08-20] MEDS: PIPER/TAZO INJ 4.5 GM in SODIUM CHLORIDE 0.9% (POP) 100 ML IV ×3 (00:47→18:04)
[2025-08-20 03:32] LABS: Lactate (Lactic Acid) 2.9 mMol/L (0.4-2.0)
[2025-08-20 03:33] LABS: Basophils # (Auto) 0.1 Thou/mm3 (0.0-0.2); Basophils % (Auto) 0 % (0-2.5); Eosinophils # (Auto) 0.0 Thou/mm3 (0.0-0.5); Eosinophils % (Auto) 0 % (0-10); Hematocrit 26.6 % (41.0-53.0); Immature Granulocytes Auto 0.39 Thou/mm3 (0.00-0.00); Lymphocytes # (Auto) 1.3 Thou/mm3 (1.0-4.8); Lymphocytes % (Auto) 5 % (10-50); Mean Corpuscular HGB Conc 30.8 g/dl (31.0-37.0); Mean Corpuscular Hemoglobin 24.4 pg (25.0-35.0); Mean Corpuscular Volume 79 fL (80-100); Monocytes # (Auto) 1.3 Thou/mm3 (0.0-0.8); Monocytes % (Auto) 5 % (0-12); Neutrophils # (Auto) 21.4 Thou/mm3 (1.8-7.7); Neutrophils % (Auto) 88 % (37-80); Nucleated Red Blood Cell # 0.05 Thou/mm3 (0.00-0.00); Nucleated Red Blood Cell % 0 /100 WBC (0); Platelet Count 414 Thou/mm3 (140-440); RDW Standard Deviation 49.4 fL (35.1-43.9); Red Blood Count 3.36 Miln/mm3 (4.50-5.90); White Blood Count 24.4 Thou/mm3 (3.8-10.6)
[2025-08-20 03:34] LABS: Hemoglobin 8.2 g/dL (13.5-16.0)
[2025-08-20 03:48] LABS: Glucose Estimated Average 269 mg/dL (80-131); Hemoglobin A1C 11.0 % Hgb (4.8-6.0)
[2025-08-20 03:49] LABS: INR 1.2 (0.9-1.3); Partial Thromboplastin Time 30.5 Seconds (22.0-36.0); Prothrombin Time 12.4 Seconds (9.0-12.2)
[2025-08-20 03:57] LABS: Alanine Aminotransferase 78 U/L (10-49); Albumin, Serum 3.5 gm/dL (3.4-4.8); Albumin/Globulin Ratio 0.8 (1.2-2.2); Alkaline Phosphatase 231 U/L (46-116); Anion Gap 15 (7-16); Aspartate Amino Transferase 70 U/L (0-34); BUN/Creatinine Ratio 45 Ratio (12-20); Bilirubin,Total 0.6 mg/dL (0.3-1.2); Blood Urea Nitrogen 50 mg/dL (9-23); Calcium 9.3 mg/dL (8.3-10.6); Calcium (Corrected) 9.7 mg/dL (8.5-10.1); Carbon Dioxide 20.1 mMol/L (20.0-31.0); Chloride 99 mMol/L (98-107); Creatinine (Component) 1.1 mg/dL (0.6-1.3); Estimated Creatinine Clearance 77.4 mL/min (>60); Globulin 4.3 gm/dL (2.3-3.5); Glucose 351 mg/dL (74-106); LDH (Lactate Dehydrogenase) 230 U/L (120-246); Magnesium 2.5 mg/dL (1.6-2.6); Osmolality,Calculated 295 (275-295); Phosphorous 4.7 mg/dL (2.4-5.1); Potassium 4.4 mMol/L (3.4-5.1); Sodium 134 mMol/L (136-145); Thyroid Stimulating Hormone 2.40 uIU/mL (0.55-4.78); Total Protein 7.8 gm/dL (5.7-8.2); eGFR > 60 See Note
[2025-08-20 03:59] LABS: Troponin I 0.790 ng/mL (0.0-0.045)
--- NOTE | 2025-08-20 04:09 | EKG_ITS ---
[facility] Test Date: 2025-08-20 Pat Name: KIMI NI Department: Room: S253A Gender: Male Sustainability Director: [id number] : 1945 Requested By: Erika Mandel Order Number: [id number] Reading MD: Erika Mandel Measurements Intervals [place] Rate: 94 P: 44 DE: 160 QRS: 10 QRSD: 86 T: 79 QT: 313 QTc: 392 Interpretive Statements SINUS RHYTHM LOW QRS VOLTAGE IN PRECORDIAL LEADS ST ELEVATION, CONSIDER ANTERIOR INJURY ACUTE [place] Compared to ECG 08/19/2025 09:44:58 Sinus tachycardia no longer present ST (T wave) deviation still present Myocardial infarct finding still present /store/S0/[id number]/ecg/[id number].pdf
--- NOTE | 2025-08-20 05:00 | XR_ITS ---
EXAMINATION: AP chest single view TECHNIQUE: AP portable semiupright chest single view Date and time: August 20, 2025, 0458 hours, comparison August 19, 2025 INDICATIONS: Coughing congestion this week. FINDINGS: Extensive bilateral pneumonia Reduced inspiratory effort Severe osteopenia Tracheostomy tube tip 8.9 cm above monica IMPRESSION: Again noted extensive bilateral pneumonia
[2025-08-20 06:30] LABS: Reflex Lactate? Y
[2025-08-20] MEDS: MIDODRINE 5 MG TABLET 10 MG GT ×3 (06:53→21:16)
--- NOTE | 2025-08-20 06:58 | ESPR_ITS ---
<Statement entered by Nicanor Montelongo MD - 08/21/25 11:58> TOTAL CC TIME: 45 MIN I saw and evaluated the patient. I reviewed the resident?s note and agree with findings and plan as documented in the resident?s note. Upon my evaluation, this patient had a high probability of imminent or life- threatening deterioration due to acute hypoxic respiratory failure due to pneumonia and septic shock which required my direct attention, intervention, and personal management. This time is exclusive of time spent on procedures, which are documented separately if performed. Continue Zosyn, has a high likelihood of Pseudomonas pneumonia. Follow-up blood culture final results, currently gram-negative rods identified in 1 out of 2 bottles. Imaging reviewed consistent with chronic effusions and likely new pneumonia status postcardiac arrest possibly secondary to relative hypovolemia in the setting of septic shock or acute hypoxic respiratory failure. Has chronic kidney disease based off prior ultrasound imaging of the kidneys now at risk for ATN due to presentation of shock. Currently adequately fluid resuscitated. IVC within normal caliber and no respiratory variation. Track lactic acid <Statement entered by Pura Edwards MD - 08/20/25 18:40> I have reviewed the note and agree with the resident's assessment & plan with exceptions as below. I have personally reviewed labs, imaging, home meds/prior records, examined the patient, formulated and discussed management plan with the IM team. Patient examined at bedside today. Patient was coded last night and achieved ROSC after 3 rounds of epinephrine. On sure why patient had coded, patient did not seem to have any electrolyte abnormalities including hyper or hypokalemia, no severe acidosis, unsure if patient was hypoxic, or toxins were involved. Did not seem to be that the patient had cardiac tamponade at the time. Patient will be treated for distributive shock at this time, will continue with Zosyn due to history of chronic UTIs. Will continue with wound care for multiple pressure ulcers, wound care on consult. Patient seems to be oliguric at this time, will follow-up. A1c noted to be 11 and glucose above 350s, will initiate insulin drip and protocol. Unsure how much patient is getting insulin at [facility] facility. Will renally dose medicines, and initiate tube feeds. Patient most likely has MARGARETTE at this time. 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 for fever, tachycardia and admitted to medicine floors for sepsis secondary to PNA and b/l pleural effusions. 08/19/2025: Per and nursing facility, the patient was reportedly at his baseline until approximately 1 day prior to admission, when he developed increasing lethargy and tachycardia, prompting transfer to [facility]. On arrival, vital signs were significant for fever to 102.5?F, HR 112, BP 99/64, RR 22, and he was connected to the ventilator via tracheostomy, but unsure of his baseline ventilator dependence unclear. The patient was started on Zosyn empirically given prior history of Pseudomonas infections. Cardiology was consulted for pericardial effusion, and a stat echocardiogram was ordered. Thoracentesis was planned, and Eliquis was held in anticipation of procedure. rapid response was called for patient in tele room Matthew Sanchez due to bradycardia with a heart rate of 29. Upon the hospitalist team arrival at 1916, the patient had no pulse with PEA on the helicopter mechanic. Code Blue was called due to PEA. CPR had been initiated by the time the hospitalist team arrived. Cardiac pads were subsequently placed. Respiratory therapy initiated bagged breathing through the patient?s trach tube. 08/20/2025: Patient seen and examined at bedside. Family present, daughter and . Sacral wounds examined by wound nurse Catrachita. Rectal tube placed given wounds and loose stools. 1/2 blood cultures with GNR gram stain. pending speciation. Patient continued home pressors, when attempted to wean patient labs declined. Suspect source likely urinary versus bloodstream, chest imaging reviewed lungs appears stable with pleural effusions small and chronic atelectasis. Given patient is bedbound with low muscle mass baseline creatinine 0.6 on presentation creatinine 1.2 concerning for MARGARETTE given for creatinine clearance in the setting of recurrent renal injury. Renally dose medications, avoid nephrotoxic agents. Exam Vital Signs Temp Pulse Resp BP Pulse Ox O2 Del Method FiO2 97.6 F 95 25 H 157/98 H 100 Mechanical Ventilation 60 08/20/25 04:00 08/20/25 06:53 08/19/25 20:20 08/20/25 06:53 08/20/25 05:45 08/19/25 18:39 08/20/25 04:22 Narrative Exam General: elderly male, tracheostomy and PEG in place, unresponsive Neuro: spontaneous eye opening, response to painful stimuli, pupils equal and responsive to light. HEENT: NC/AT, MMM, sclera anicteric, trach midline with some scant blood in the tube Cardiovascular: Regular rate and rhythm, no murmurs appreciated Pulmonary: Mechanically ventilated via trach with traces of fresh blood noted, diminished breath sounds bilaterally, ronchous breath sounds. Abdomen: Soft, nondistended, PEG in place, with puralent drainage expressed. Extremities: 1+ pedal edema b/l, LE cool to touch, nail thickening and black toe nails bilaterally Skin: Warm; chronic sacral ulcers and widespread excoriations of lower extremities, skin break down (see wound care note for evaluation of wounds. : German catheter in place with mascerated urethral meatus. Objective Labs 08/20/25 03:25 08/20/25 03:25 Labs: Laboratory Results - last 24 hr 08/19/25 08/19/25 08/19/25 09:48 09:51 12:10 WBC 15.4 H RBC 3.66 L Hgb 9.0 L Hct 28.9 L MCV 79 L MCH 24.6 L MCHC 31.1 RDW Std Deviation 49.7 H Plt Count 344 D Neut % (Auto) 72 Lymph % (Auto) 17 Clay % (Auto) 10 Eos % (Auto) 0 Baso % (Auto) 0 Neut # (Auto) 11.0 H Lymph # (Auto) 2.5 Clay # (Auto) 1.6 H Eos # (Auto) 0.0 Baso # (Auto) 0.0 Immature Gran # (Auto) 0.15 H Absolute Nucleated RBC 0.03 H Immature Gran % 1 H Nucleated RBC % 0 Smear Path Review PT 11.9 INR 1.1 APTT 31.3 Puncture Site ABG pH ABG pCO2 ABG pO2 ABG HCO3 ABG O2 Saturation ABG Base Excess FiO2 Sodium 130 L Potassium 5.0 Chloride 96 L Carbon Dioxide 23.4 Anion Gap 11 BUN 48 H Creatinine 1.2 Estim Creat Clear Calc Not Performed. eGFR > 60 BUN/Creatinine Ratio 40 H Glucose [address] Glu mg/dL Hemoglobin A1c Calculated Osmolality 287 Lactic Acid 2.6 H Calcium 9.7 Corrected Calcium 9.7 Phosphorus Magnesium 2.6 Total Bilirubin 0.3 AST 41 H ALT 66 H Alkaline Phosphatase 263 H Lactate Dehydrogenase Troponin I < 0.020 B-Natriuretic Peptide 150 H Total Protein 8.9 H Albumin 4.1 Globulin 4.8 H Albumin/Globulin Ratio 0.9 L Lipase 41 Procalcitonin 0.57 H TSH Ur Collection Type Clean Catch Urine Color Yellow Urine Clarity Turbid A Urine pH 6.5 Ur Specific [place] 1.023 Urine Protein 2+ A Urine Glucose (UA) Negative Urine Ketones Negative Urine Blood 2+ A Urine Nitrite Negative Urine Bilirubin Negative Urine Urobilinogen (Auto) Negative Ur Leukocyte Esterase Positive Urine RBC 121 H Urine WBC 294 H Ur Squamous Epith Cells 0 Urine Bacteria 2+ A 08/19/25 08/19/25 08/19/25 14:14 19:38 20:08 WBC 27.4 H D RBC 3.22 L Hgb 8.0 L Hct 25.9 L MCV 80 MCH 24.8 L MCHC 30.9 L RDW Std Deviation 52.1 H Plt Count 328 Neut % (Auto) 39 Lymph % (Auto) 48 Clay % (Auto) 6 Eos % (Auto) 1 Baso % (Auto) 0 Neut # (Auto) 10.6 H Lymph # (Auto) 13.2 H Clay # (Auto) 1.6 H Eos # (Auto) 0.3 Baso # (Auto) 0.1 Immature Gran # (Auto) 1.71 H Absolute Nucleated RBC 0.15 H Immature Gran % 6 H Nucleated RBC % 1 H Smear Path Review Sent to Pathologist PT INR APTT Puncture Site Right Radial ABG pH 7.23 L ABG pCO2 47 ABG pO2 85 ABG HCO3 20 ABG O2 Saturation 95 ABG Base Excess -8 L FiO2 21 Sodium 135 L Potassium 4.1 D Chloride 98 Carbon Dioxide 21.1 Anion Gap 16 BUN 49 H Creatinine 1.2 Estim Creat Clear Calc Not Performed. eGFR > 60 BUN/Creatinine Ratio 41 H Glucose [address] Glu mg/dL Hemoglobin A1c Calculated Osmolality 297 H Lactic Acid 2.4 H 8.2 H* Calcium 10.4 Corrected Calcium 10.6 H Phosphorus Magnesium Total Bilirubin 0.3 AST 60 H ALT 78 H Alkaline Phosphatase 247 H Lactate Dehydrogenase Troponin I < 0.020 0.128 H* B-Natriuretic Peptide Total Protein 8.1 Albumin 3.7 Globulin 4.4 H Albumin/Globulin Ratio 0.8 L Lipase Procalcitonin 0.56 H TSH Ur Collection Type Urine Color Urine Clarity Urine pH Ur Specific [place] Urine Protein Urine Glucose (UA) Urine Ketones Urine Blood Urine Nitrite Urine Bilirubin Urine Urobilinogen (Auto) Ur Leukocyte Esterase Urine RBC Urine WBC Ur Squamous Epith Cells Urine Bacteria 08/19/25 08/19/25 08/20/25 22:17 23:10 03:25 WBC 24.4 H RBC 3.36 L Hgb 8.2 L Hct 26.6 L MCV 79 L MCH 24.4 L MCHC 30.8 L RDW Std Deviation 49.4 H Plt Count 414 D Neut % (Auto) 88 H Lymph % (Auto) 5 L Clay % (Auto) 5 Eos % (Auto) 0 Baso % (Auto) 0 Neut # (Auto) 21.4 H Lymph # (Auto) 1.3 Clay # (Auto) 1.3 H Eos # (Auto) 0.0 Baso # (Auto) 0.1 Immature Gran # (Auto) 0.39 H Absolute Nucleated RBC 0.05 H Immature Gran % 2 H Nucleated RBC % 0 Smear Path Review PT 12.4 H INR 1.2 APTT 30.5 Puncture Site Right Radial ABG pH 7.38 D ABG pCO2 36 D ABG pO2 140 H D ABG HCO3 21 ABG O2 Saturation 100 H ABG Base Excess -4 L FiO2 90 Sodium 134 L Potassium 4.4 Chloride 99 Carbon Dioxide 20.1 Anion Gap 15 BUN 50 H Creatinine 1.1 Estim Creat Clear Calc 77.4 eGFR > 60 BUN/Creatinine Ratio 45 H Glucose [address] Glu mg/dL 269 H Hemoglobin A1c 11.0 H Calculated Osmolality 295 Lactic Acid 3.9 H 2.9 H Calcium 9.3 Corrected Calcium 9.7 Phosphorus 4.7 Magnesium 2.5 Total Bilirubin 0.6 AST 70 H ALT 78 H Alkaline Phosphatase 231 H Lactate Dehydrogenase 230 Troponin I 0.790 H* D B-Natriuretic Peptide Total Protein 7.8 Albumin 3.5 Globulin 4.3 H Albumin/Globulin Ratio 0.8 L Lipase Procalcitonin TSH 2.40 Ur Collection Type Urine Color Urine Clarity Urine pH Ur Specific [place] Urine Protein Urine Glucose (UA) Urine Ketones Urine Blood Urine Nitrite Urine Bilirubin Urine Urobilinogen (Auto) Ur Leukocyte Esterase Urine RBC Urine WBC Ur Squamous Epith Cells Urine Bacteria ABG Interpretation ABG results: 08/19/25 08/19/25 20:08 22:17 ABG pH 7.23 L 7.38 D ABG pCO2 47 36 D ABG pO2 85 140 H D ABG HCO3 20 21 ABG O2 Saturation 95 100 H ABG Base Excess -8 L -4 L Quality Measures Quality Measures sepsis Current suspected stage: septic shock (LA >4 and/or hypotension) Sepsis reassessment completed at (date): 08/20/25 Sepsis reassessment completed at (time): 10:30 Possible source: pulmonary Blood cultures ordered: yes Antibiotic ordered: Yes Advance care planning discussed with:: patient Assessment & Plan Assessment Current Active Medications: Generic Name Dose Route Start Last Admin Trade Name Freq PRN Reason Stop Dose Admin Acetaminophen 650 mg 08/19/25 15:10 Acetaminophen 325 Mg Tablet PO 09/18/25 15:09 Q6H PRN Fever >100.4 Acetaminophen 650 mg 08/19/25 15:15 Acetaminophen 325 Mg Tablet PO 09/18/25 15:14 Q6H PRN PAIN SCALE 1-3 (mild Hydrocodone Bitart/Acetaminophen 1 tab 08/19/25 15:34 08/19/25 18:10 Hydrocodone/Apap 10/325 Tab GT 08/24/25 15:33 1 tab Q4HR PRN Administration PAIN SCALE 7-10 (Severe Dextrose 25 ml 08/19/25 16:15 Dextrose 50%-Water Inj 50 Ml Syringe IV 09/18/25 16:14 Q15MIN PRN BG 50-70 responsive npo pt Dextrose 50 ml 08/19/25 16:15 Dextrose 50%-Water Inj 50 Ml Syringe IV 09/18/25 16:14 Q15MIN PRN BG <50 OR BG <70 & pt unresponsive Diphenhydramine HCl 25 mg 08/19/25 17:55 Diphenhydramine Elix 25 Mg/10 Ml Udc GT 09/18/25 17:01 Q4H PRN Allergic Symptoms Enoxaparin Sodium 40 mg 08/20/25 09:00 Enoxaparin Sod Inj 40 Mg/0.4 Ml Syringe SC 09/03/25 08:59 QDAY IMANI Gabapentin 600 mg 08/19/25 21:00 08/19/25 21:07 Gabapentin 300 Mg Capsule GT 09/18/25 20:59 600 mg BID IMANI Administration Glucagon 1 mg 08/19/25 16:15 Glucagon Inj 1 Mg Vial IM Q15MIN PRN BG <70, and no IV access Hydromorphone HCl 0.5 mg 08/19/25 17:45 Hydromorphone Inj 2 Mg/Ml Vial IVP 08/24/25 17:44 Q6H PRN BREAKTHROUGH Pain 4-10 Piperacillin Sod/Tazobactam 100 mls @ 200 mls/hr 08/19/25 15:37 08/20/25 06:36 Sod 4.5 gm/ Sodium Chloride IV 08/26/25 15:36 200 mls/hr Q6HR IMANI Administration Protocol Norepinephrine Bitartrate 16 mg in 250 mls @ 5.807 mls/hr 08/19/25 20:19 08/20/25 06:54 Levophed In Ns 16mg/250ml IV 09/18/25 19:27 0.09 mcg/kg/min .Q24H PRN 10.452 mls/hr PER PROTOCOL Titration Protocol 0.05 MCG/KG/MIN Vancomycin HCl 250 mls @ 120 mls/hr 08/20/25 10:00 Vancomycin/Water 1250 Mg Ivpb IV 08/27/25 09:59 Q12H IMANI Protocol Insulin Degludec 28 unit 08/19/25 21:00 08/19/25 21:09 Insulin Degludec 5 Unit/0.05 Ml (Per 5 Units) SC 09/18/25 20:59 28 unit BID IMANI Administration Protocol Insulin Human Lispro 0 unit 08/19/25 23:15 08/20/25 06:37 Insulin Lispro (Admelog) 1 Unit/0.01 Ml Unit SC 09/18/25 23:14 5 unit Q6H IMANI Administration Protocol Ipratropium [place] 0.5 mg 08/19/25 17:04 Ipratropium Rt 0.5 Mg/ 2.5 Ml Nebu INH 09/18/25 17:03 Q4H PRN SHORTNESS OF BREATH OR WHEEZE Magnesium Hydroxide 30 ml 08/19/25 15:15 Milk Of Magnesia Susp 30 Ml Udc GT 09/18/25 15:14 QDAY PRN CONSTIPATION Protocol Midodrine 10 mg 08/19/25 22:00 08/20/25 06:53 Midodrine 5 Mg Tablet GT 09/18/25 21:59 10 mg TID IMANI Administration Oxycodone/Acetaminophen 1 tab 08/19/25 15:34 Oxycodone/Apap 5/325 Tablet GT 08/24/25 15:33 Q6H PRN PAIN SCALE 4-6 (Moderate Pantoprazole Sodium 40 mg 08/20/25 09:00 Pantoprazole Inj 40 Mg Vial IVP 09/19/25 08:59 QDAY [facility] Pharmacy Consult 1 each 08/20/25 09:00 Vancomycin Pharmacy To Dose 1 Each Each IV 09/19/25 08:59 QDAY PRN PROTOCOL Plan Mr. Sanchez is a 80 year old gentleman with a hx of recurrent renal injury, CVA with chronic trach and peg, chronic german (hx of Pseudamona UTI sensitive to zosyn) who presented from sub acute facility in [place], with reported increased fatigue and lethargy, found to be febrile, admitted to the floor with sepsis pna vs UTI who subsequently coded on 08/19 and had ROSC, who was subsequently admitted to the ICU for distributive shock on mech vent per the trach and pressors. Neuro CVA hypoxic brain injury Chronic encephalopathy Dx opens eyes spontaneously and responds to painful stimuli CV Shock Ddx Distributive vs Obstructive Dx patient appears euvolemic on exam with mucus membraines moist, and trace edema of the LE. patient had echo performed with pericardial effusion, Truck Spotter Dr. Tarango was consulted, who is unconcerned for a potential tamponade/obstructive physiology, bedside pocus and ct chest redemonstrate the moderate effusion. Given patient presented with fever 102, and UA dirty, with +Leukesterase and WBC, consider other potential sources of sepsis, ie healthcare associated PNA, vs skin wounds (no puralent drainage), peg tube site infection on exam there is some puralent liquid expressed from the site however it is not errythematous at the base. Rx Daily CBC, Daily Cxr, cont to treat potential sources of infection with Vanc and zosyn (08/19- ), pending Urine Cx, pending ET tube secretion Cx, Blood Cx 1/2 with GNR (follow up speciation and sensitivities), continue pressor with levofed. Sepsis reassessment @ 1030 AM: patient is euvolemic, mucus membranes are moist, he has had decreased urine otput to 30cc/hr. He continues on levofed and broad spectrum antibiotics. LA down from yesterday, but remain elevated and unresolved. will continue to trend. Cardiac arrest w ROSC Elevated Troponin Ddx:Type II AR vs demand ischemia Dx: given trop elevation without st elevations in the setting of septic shock, higher suspician for sepsis related demand ischemia. Rx: treat underlying sepsis Pulm Acute on Chronic hypoxic respiratory Failure Chronic Atelectesis Small Bilateral Pleural Effusions Ddx: Worsening PNA vs respiratory compensation for metabolic acidosis (improved) vs worsening pleural effusions Dx patient has chronic trach likely colonized with pseudomonas, he was tachypnic when he presented, and febrile. his Chest Ct when compared to prior has minimal change, continues to have chronic atelectesis at the bases and trace pleural effusions bilaterally Rx Stable, compared to prior chest imaging, no intervention planned at this time regarding pleural effusions, cont broad spectrum antibiotics with vanc and zosyn (08/19- ), continue mechanical ventilation, check AM abg, decreased RR to 20 in the AM given acidosis resolved with ph 7.38. GI Mild Hepatitis Ddx sepsis related hepatitis Dx low suspicion for possible ingestion given, pt has peg tube, and pt presented with sepsis and shock and coded, so some concern for potential impaired blood flow in setting of sepsis Rx daily cmp, monitor for worsening abdominal pain Chronic PEG tube Dx ctap with tube confirmed in the stomach Rx resume peg tube feeds PEG tube site infection Dx some puralent liquid expressed from the site. no errythema at the base Rx CTM to worsening puralence, continue with vanc/zosyn. Loose stool Dx in setting of decubitus ulcers and minimizing sources of infection and loose stools Rx rectal tube placed 08/20 Renal MARGARETTE Decreased UOP Ddx prerenal vs intrarenal Dx has had recurrent kidney injury in the past, 2/2 sepsis, suspect some possible renal scaring from repeated insult, patient appears euvolemic, but in the setting of shock, the vasodilation may cause some renal congestion contributing to his decreased cr clearance. he has a cr of 1.1 today but his baseline is about 0.6 due to his diffuse muscle wasting 2/2 bedbound status this is a big elevation in his cr, Renal US with moderate renal scarring, no hydronephrosis. Rx ctm urine output, renally dose vanc and zosyn for infection. avoid nephrotoxic agents, Mixed acidosis- improved Lactic Acidosis persists LA 2.9 down from 8 yesterday. Ddx in the setting of sepsis, with suspected sources in the blood, vs urine, vs pna. suspect uti most likely and the bacteremia could be 2/2 to that. Rx treat underlying sepsis ENDO Insulin dependent type 2 DM - poorly controlled Dx: A1c 11, and on prior admission in 04/30 a1c of 10, unclear why patient continues to have poor dm control despite being peg'd and at a sub acute facility in [place]. Rx: insulin drip initiated, was given 28 U BID of degludec, q1hr glucose checks, (ok to hold insulin drip to administer antibiotics). tube feeds were resumed. Chronic German UTI Ddx possible catheter associated UTI vs pyuria Dx No signs of pyelonephritis on exam nor on ct ap, german was exchanged in house. UA with LE + and WBC and bacteria, unable to assess for dysuria given gcs. Rx zosyn, follow up urine cultures and narrow antibiotics as indicated. 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 ID 1/2 GNR Blood Cx Ddx: possible contaminant vs gnr from uti (ie pseudomonas vs klebsiella) leukocytosis is verye elevated at 24. patient is afebrile but presented with fever. Rx: follow up blood culture speciation, cont with vanc and zosyn, narrow when indicated Skin multiple decubitus sacral ulcers Ddx bed bound vs shearing forces from bed transfers Dx wound care consulted for staging of new vs chronic lesions no puralent drainage noted on exam, some Rx multivitiamins, wound care consulted, frequent repositioning, Rxx, poor wound healing due to Dispo:Admitted to ICU for septic shock continues on levofed, GNR bacteria, on vanc and zosyn, pending culture speciation and suseptabilities. Diet: resume tube feeds. Lines: PIV infiltrated, and L fem central line VTE ppx: GI ppx: Protonix 40 IV BID Bowel Reg: hold for loose stools Code status: FULL Case disclosed with my senior resident Dr. Edwards and my Attending Dr. Reginald Conner MD PGY1
[2025-08-20 07:30] LABS: Lactic Acid, 3 HR 2.9 mMol/L (0.4-2.0)
[2025-08-20] MEDS: GABAPENTIN 300 MG CAPSULE 600 MG GT ×2 (08:51→20:03)
[2025-08-20] MEDS: INSULIN DEGLUDEC 5 UNIT/0.05 ML (PER 5 UNITS) 28 UNIT SC (08:55)
--- NOTE | 2025-08-20 08:58 | PC.DIETICIAN ---
Nutrition prescription 1. Glucerna 1.2 at 20 ml/hr via PEG tube by pump. Advance 10 ml every 8 hrs to goal rate of 65 ml/hr x 24 hrs. If no IV fluids, water flushes of 25 ml/hr (or per MD). 2. ProStat 30ml once daily via PEG tube (mix with water).
[2025-08-20] MEDS: ZINC SULFATE 220 MG CAPSULE NG (09:28)
[2025-08-20] MEDS: MULTIVITAMINS TABLET 1 TAB NG (09:30)
[2025-08-20] MEDS: INSULIN REG 100 UNITS/100 ML 100 UNIT/100 ML BAG 11.57 UNIT IV (09:31)
--- NOTE | 2025-08-20 11:22 | EVENTNT_ITS ---
Documentation for date of: 08/20/25 Event Note Event Note: 08/20/2025 11:15 am Family requested to see patient's wounds. Pictures of all the wounds were shown to at bedside, wound care nurse documentation in file. RN Lily present at bedside as well. All concerns addressed and questions answered. Plan to continue wound care at this time. - Jatinder Bianchi M.D. PGY3 Disclaimer: Minor errors in combatant diver officer may be present as this note was dictated using voice recognition software.
--- NOTE | 2025-08-20 12:11 | PC.SS ---
VICE PRESIDENT OF INSTRUCTION conducted bedside contact with the patient to conduct initial assessment and to discuss discharge planning.? Patient is currently admitted to ICU.? At bedside with patient was spouse, Sherlynthomas Sanchez .? VICE PRESIDENT OF INSTRUCTION obtained information from patient?s spouse.? Patient is from [facility].? Patient is aligned with the V.A.? Patient is on a mechanical ventilator and PEG tube.?Patient is bed bound.? Patient?s medical surrogate decision maker is spouse, Sherlynthomas Sanchez.? Dr. Heredia is the facility PCP.? The discharge plan is for the patient to return to [facility] upon discharge.? Upon discharge patient will require ambulance transport.? Patient will require RT staff to accompany on return transport.? manager clinical services will assist with arranging transportation on behalf of the patient.? ?No further discharge needs identified by the patient.? No further intervention required at this time, mental health social worker will be available to address any further concerns.? Next of Kin: Sherlyn Sanchez D/C Plan: [facility]
[2025-08-20 12:48] LABS: Lactate (Lactic Acid) 3.3 mMol/L (0.4-2.0)
[2025-08-20 13:16] LABS: Troponin I 0.464 ng/mL (0.0-0.045)
--- NOTE | 2025-08-20 14:10 | XR_ITS ---
Examination: Retroperitoneal ultrasound, complete Technique: Multiple high resolution grayscale images of the retroperitoneum obtained, including kidneys and bladder. Exam date and time: August 20, 2025, 1523 hours INDICATIONS: Oliguria today FINDINGS: Right kidney 10.4 cm cortex 1.6 cm Left kidney 11.0 cm renal cortex 2.1 cm Moderate renal scarring Mild free fluid in the upper abdomen No diagnostic visualization of the bladder Prostate volume 49.2 cc no prostate nodules IMPRESSION: Moderate renal scarring, no hydronephrosis
[2025-08-20 15:45] LABS: Reflex Lactate? Y
[2025-08-20 16:17] LABS: Lactic Acid, 3 HR 2.3 mMol/L (0.4-2.0)
[2025-08-20] MEDS: Norepinephrine/NS 16mg/250ml 16 MG/250 ML BAG 9.762 MG IV (17:42)
--- NOTE | 2025-08-20 18:15 | EKG_ITS ---
[facility] Test Date: 2025-08-20 Pat Name: KIMI NI Department: Room: S253A Gender: Male Printer Assistant: WM : [id number] Requested By: Jatinder Bianchi Order Number: [id number] Reading MD: Jatinder Bianchi Measurements Intervals [place] Rate: 106 P: -8 IL: 130 QRS: 7 QRSD: 76 T: 199 QT: 305 QTc: 406 Interpretive Statements SINUS TACHYCARDIA LOW QRS VOLTAGE IN PRECORDIAL LEADS NONSPECIFIC ST & T-WAVE ABNORMALITY Compared to ECG 08/20/2025 04:14:57 T-wave abnormality now present Sinus rhythm no longer present ST (T wave) deviation no longer present Myocardial infarct finding no longer present /store/S0/[id number].pdf
[2025-08-20] MEDS: VASOPRESSIN IN NS IVPB 20 UNIT/100 ML BAG 9 UNIT IV (18:49)
[2025-08-20] MEDS: RINGERS LACTATED 500 ML 500 ML 999 ML IV (19:00)
--- NOTE | 2025-08-20 19:28 | ESPR_ITS ---
<Statement entered by Jamie Tarango MD - 08/25/25 18:16> I personally examined the patient evaluated the patient intensive care unit continues to remain stable but mental status has not changed that much hemodynamic requiring vasopressors do not think cardiogenic shock mostly multiple other mechanisms not have any other cardiac issues do not think patient has myocardial infarction. Will continue to monitor the patient educated closely. The patient resident physician PGY 2 Dr. Manzo agree with the treatment plan recommendation as documented Documentation for date of: 08/20/25 Subjective Subjective Interval history: Patient examined at bedside. Telemetry reviewed, normal sinus rhythm rate around 100. Blood pressure soft 92/59. Troponins down trended 0.79. He remains on pressure support for distributive shock. No evidence of cardiogenic shock after CODE BLUE. Continue antibiotics. Exam Vital Signs Temp Pulse Resp BP Pulse Ox O2 Del Method FiO2 97.7 F 105 H 20 58/45 L 97 Mechanical Ventilation 30 08/20/25 16:00 08/20/25 18:30 08/20/25 13:00 08/20/25 18:30 08/20/25 18:30 08/20/25 13:00 08/20/25 18:07 Narrative Exam General: elderly male, tracheostomy and PEG in place, unresponsive Neuro: spontaneous eye opening, response to painful stimuli, pupils equal and responsive to light. HEENT: NC/AT, MMM, sclera anicteric, trach midline with some scant blood in the tube Cardiovascular: Regular rate and rhythm, no murmurs appreciated Pulmonary: Mechanically ventilated via trach with traces of fresh blood noted, diminished breath sounds bilaterally, ronchous breath sounds. Abdomen: Soft, nondistended, PEG in place, with puralent drainage expressed. Extremities: 1+ pedal edema b/l, LE cool to touch, nail thickening and black toe nails bilaterally Skin: Warm; chronic sacral ulcers and widespread excoriations of lower extremities, skin break down (see wound care note for evaluation of wounds. : German catheter in place with mascerated urethral meatus. Objective Labs 08/20/25 03:25 08/20/25 03:25 Labs: Laboratory Results - last 24 hr 08/19/25 08/19/25 08/19/25 19:38 20:08 22:17 WBC 27.4 H D RBC 3.22 L Hgb 8.0 L Hct 25.9 L MCV 80 MCH 24.8 L MCHC 30.9 L RDW Std Deviation 52.1 H Plt Count 328 Neut % (Auto) 39 Lymph % (Auto) 48 Garden % (Auto) 6 Eos % (Auto) 1 Baso % (Auto) 0 Neut # (Auto) 10.6 H Lymph # (Auto) 13.2 H Garden # (Auto) 1.6 H Eos # (Auto) 0.3 Baso # (Auto) 0.1 Immature Gran # (Auto) 1.71 H Absolute Nucleated RBC 0.15 H Immature Gran % 6 H Nucleated RBC % 1 H Smear Path Review Sent to Pathologist PT INR APTT Puncture Site Right Radial Right Radial ABG pH 7.23 L 7.38 D ABG pCO2 47 36 D ABG pO2 85 140 H D ABG HCO3 20 21 ABG O2 Saturation 95 100 H ABG Base Excess -8 L -4 L FiO2 21 90 Sodium 135 L Potassium 4.1 D Chloride 98 Carbon Dioxide 21.1 Anion Gap 16 BUN 49 H Creatinine 1.2 Estim Creat Clear Calc Not Performed. eGFR > 60 BUN/Creatinine Ratio 41 H Glucose [address] Glu mg/dL Hemoglobin A1c Calculated Osmolality 297 H Lactic Acid 8.2 H* Calcium 10.4 Corrected Calcium 10.6 H Phosphorus Magnesium Total Bilirubin 0.3 AST 60 H ALT 78 H Alkaline Phosphatase 247 H Lactate Dehydrogenase Troponin I 0.128 H* Total Protein 8.1 Albumin 3.7 Globulin 4.4 H Albumin/Globulin Ratio 0.8 L Procalcitonin 0.56 H TSH 08/19/25 08/20/25 08/20/25 23:10 03:25 07:17 WBC 24.4 H RBC 3.36 L Hgb 8.2 L Hct 26.6 L MCV 79 L MCH 24.4 L MCHC 30.8 L RDW Std Deviation 49.4 H Plt Count 414 D Neut % (Auto) 88 H Lymph % (Auto) 5 L Garden % (Auto) 5 Eos % (Auto) 0 Baso % (Auto) 0 Neut # (Auto) 21.4 H Lymph # (Auto) 1.3 Garden # (Auto) 1.3 H Eos # (Auto) 0.0 Baso # (Auto) 0.1 Immature Gran # (Auto) 0.39 H Absolute Nucleated RBC 0.05 H Immature Gran % 2 H Nucleated RBC % 0 Smear Path Review PT 12.4 H INR 1.2 APTT 30.5 Puncture Site ABG pH ABG pCO2 ABG pO2 ABG HCO3 ABG O2 Saturation ABG Base Excess FiO2 Sodium 134 L Potassium 4.4 Chloride 99 Carbon Dioxide 20.1 Anion Gap 15 BUN 50 H Creatinine 1.1 Estim Creat Clear Calc 77.4 eGFR > 60 BUN/Creatinine Ratio 45 H Glucose [address] Glu mg/dL 269 H Hemoglobin A1c 11.0 H Calculated Osmolality 295 Lactic Acid 3.9 H 2.9 H 2.9 H Calcium 9.3 Corrected Calcium 9.7 Phosphorus 4.7 Magnesium 2.5 Total Bilirubin 0.6 AST 70 H ALT 78 H Alkaline Phosphatase 231 H Lactate Dehydrogenase 230 Troponin I 0.790 H* D Total Protein 7.8 Albumin 3.5 Globulin 4.3 H Albumin/Globulin Ratio 0.8 L Procalcitonin TSH 2.40 08/20/25 08/20/25 08/20/25 12:14 12:24 16:10 WBC RBC Hgb Hct MCV MCH MCHC RDW Std Deviation Plt Count Neut % (Auto) Lymph % (Auto) Garden % (Auto) Eos % (Auto) Baso % (Auto) Neut # (Auto) Lymph # (Auto) Garden # (Auto) Eos # (Auto) Baso # (Auto) Immature Gran # (Auto) Absolute Nucleated RBC Immature Gran % Nucleated RBC % Smear Path Review PT INR APTT Puncture Site ABG pH ABG pCO2 ABG pO2 ABG HCO3 ABG O2 Saturation ABG Base Excess FiO2 Sodium Potassium Chloride Carbon Dioxide Anion Gap BUN Creatinine Estim Creat Clear Calc eGFR BUN/Creatinine Ratio Glucose Estimated Ave Glu mg/dL Hemoglobin A1c Calculated Osmolality Lactic Acid 3.3 H 2.3 H Calcium Corrected Calcium Phosphorus Magnesium Total Bilirubin AST ALT Alkaline Phosphatase Lactate Dehydrogenase Troponin I 0.464 H* D Total Protein Albumin Globulin Albumin/Globulin Ratio Procalcitonin TSH ABG Interpretation ABG results: 08/19/25 08/19/25 20:08 22:17 ABG pH 7.23 L 7.38 D ABG pCO2 47 36 D ABG pO2 85 140 H D ABG HCO3 20 21 ABG O2 Saturation 95 100 H ABG Base Excess -8 L -4 L Quality Measures Quality Measures sepsis Current suspected stage: sepsis Possible source: pulmonary Blood cultures ordered: yes Antibiotic ordered: Yes Advance care planning discussed with:: other Assessment & Plan Assessment Current Active Medications: Generic Name Dose Route Start Last Admin Trade Name Sandy PRN Reason Stop Dose Admin Acetaminophen 650 mg 08/19/25 15:10 Acetaminophen 325 Mg Tablet PO 09/18/25 15:09 Q6H PRN Fever >100.4 Acetaminophen 650 mg 08/19/25 15:15 Acetaminophen 325 Mg Tablet PO 09/18/25 15:14 Q6H PRN PAIN SCALE 1-3 (mild Hydrocodone Bitart/Acetaminophen 1 tab 08/19/25 15:34 08/19/25 18:10 Hydrocodone/Apap 10/325 Tab GT 08/24/25 15:33 1 tab Q4HR PRN Administration PAIN SCALE 7-10 (Severe Apixaban 2.5 mg 08/20/25 21:00 Apixaban 2.5 Mg Tablet PO 09/19/25 20:59 BID IMANI Balsam Michael/Ford Oil 0 gm 08/20/25 21:00 Balsam Belle/Ford Oil (Venelex) 60 Gm Tube TOP 09/19/25 20:59 BID IMANI Dextrose 50 ml 08/19/25 16:15 Dextrose 50%-Water Inj 50 Ml Syringe IV 09/18/25 16:14 Q15MIN PRN BG <50 OR BG <70 & pt unresponsive Diphenhydramine HCl 25 mg 08/19/25 17:55 Diphenhydramine Elix 25 Mg/10 Ml Udc GT 09/18/25 17:01 Q4H PRN Allergic Symptoms Famotidine 20 mg 08/21/25 09:00 Famotidine Inj 10 Mg/Ml Vial 2 Ml IVP 09/20/25 08:59 QDAY IMANI Gabapentin 600 mg 08/19/25 21:00 08/20/25 08:51 Gabapentin 300 Mg Capsule GT 09/18/25 20:59 600 mg BID IMANI Administration Glucagon 1 mg 08/19/25 16:15 Glucagon Inj 1 Mg Vial IM Q15MIN PRN BG <70, and no IV access Hydromorphone HCl 0.5 mg 08/19/25 17:45 Hydromorphone Inj 2 Mg/Ml Vial IVP 08/24/25 17:44 Q6H PRN BREAKTHROUGH Pain 4-10 Insulin Human Regular 100 unit in 100 mls @ 11.57 mls/hr 08/20/25 09:24 08/20/25 18:00 Myxredlin IV 09/19/25 09:23 0.12 unit/kg/hr .Q8H39M PRN 13.884 mls/hr PER PROTOCOL Titration Protocol 0.1 UNIT/KG/HR Norepinephrine Bitartrate 16 mg in 250 mls @ 5.423 mls/hr 08/20/25 09:42 08/20/25 18:39 Levophed In Ns 16mg/250ml IV 09/18/25 19:27 0.11 mcg/kg/min .Q24H PRN 11.932 mls/hr PER PROTOCOL Titration Protocol 0.05 MCG/KG/MIN Piperacillin Sod/Tazobactam 100 mls @ 200 mls/hr 08/20/25 18:00 08/20/25 18:04 Sod 4.5 gm/ Sodium Chloride IV 08/27/25 17:59 200 mls/hr Q12H IMANI Administration Protocol Vancomycin HCl 250 mls @ 120 mls/hr 08/20/25 22:00 Vancomycin/Water 1250 Mg Ivpb IV 08/27/25 21:59 Q24H IMANI Protocol Vasopressin/Sodium Chloride 20 unit in 100 mls @ 9 mls/hr 08/20/25 18:43 08/20/25 19:00 Vasostrict/Ns Ivpb IV 09/19/25 18:42 0 unit/min .Q11H7M PRN 0 mls/hr PER PROTOCOL Titration Protocol 0.03 UNIT/MIN Ipratropium [place] 0.5 mg 08/19/25 17:04 Ipratropium Rt 0.5 Mg/ 2.5 Ml Nebu INH 09/18/25 17:03 Q4H PRN SHORTNESS OF BREATH OR WHEEZE Midodrine 10 mg 08/19/25 22:00 08/20/25 14:30 Midodrine 5 Mg Tablet GT 09/18/25 21:59 10 mg TID IMANI Administration Multivitamins 1 tab 08/20/25 09:15 08/20/25 09:30 Multivitamins Tablet NG 09/19/25 09:14 1 tab QDAY IMANI Administration Oxycodone/Acetaminophen 1 tab 08/20/25 18:21 Oxycodone/Apap 5/325 Tablet GT 08/24/25 15:33 Q6H PRN AGITATION Pharmacy Consult 1 each 08/20/25 09:00 Vancomycin Pharmacy To Dose 1 Each Each IV 09/19/25 08:59 QDAY PRN PROTOCOL Pharmacy Consult 1 each 08/20/25 10:23 Pharmacy Renal Dose Adjustment 1 Ea XX 09/19/25 10:22 PRN PRN CONSULT Protocol Zinc Sulfate 220 mg 08/20/25 09:15 08/20/25 09:28 Zinc Sulfate 220 Mg Capsule NG 09/19/25 09:14 220 mg QDAY IMANI Administration Plan Mr. 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 #Moderate pericardial effusion. No evidence of cardiac tamponade. #Left side pneumonia and pleural effusion with respiratory failure. #Status post tracheostomy and PEG tube placement. 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 #Status post PEA cardiopulmonary arrest secondary to septic shock, sepsis. Continue broad-spectrum antibiotics for NSTEMI type II, demand ischemia. Most likely in setting of distributive shock. Low concern for cardiogenic shock--Echo completed 08/19 showing normal LV size, EF 40-50%. Moderate pericardial effusion, no tamponade. Adequate contractility. From cardiac point of view, no need for any pericardiocentesis. There is no evidence of echocardiogram signs of tamponade or clinical tamponade. Continue with vasopressor support. Primary care team to manage above conditions and ongoing care needs. The patient's management plan was discussed with my attending physician Dr. Tarango. Vicky Betancourt, PGY-2
[2025-08-20] MEDS: APIXABAN 2.5 MG TABLET PO (20:03)
[2025-08-20] MEDS: BALSAM PERU/CASTOR OIL (Venelex) 60 GM TUBE TOP (20:03)
[2025-08-20 20:08] LABS: Lactate (Lactic Acid) 2.6 mMol/L (0.4-2.0)
[2025-08-20] MEDS: VANCOMYCIN/WATER 1250 MG IVPB 250 ML 120 MG IV (21:16)
[2025-08-20 23:03] LABS: Reflex Lactate? Y
[2025-08-20 23:21] LABS: Lactic Acid, 3 HR 3.3 mMol/L (0.4-2.0)
[2025-08-21] VITALS (106 sets, daily range): BP systolic 79–129; BP diastolic 42–69; PULSE 72–102; RESP 15–26; TEMP 35.7–36.7; O2SAT 88–100; BMI 33.0
[2025-08-21 05:42] LABS: Basophils # (Auto) 0.0 Thou/mm3 (0.0-0.2); Basophils % (Auto) 0 % (0-2.5); Eosinophils # (Auto) 0.9 Thou/mm3 (0.0-0.5); Eosinophils % (Auto) 5 % (0-10); Hematocrit 23.0 % (41.0-53.0); Immature Granulocytes Auto 0.16 Thou/mm3 (0.00-0.00); Lymphocytes # (Auto) 1.3 Thou/mm3 (1.0-4.8); Lymphocytes % (Auto) 7 % (10-50); Mean Corpuscular HGB Conc 30.4 g/dl (31.0-37.0); Mean Corpuscular Hemoglobin 24.2 pg (25.0-35.0); Mean Corpuscular Volume 80 fL (80-100); Monocytes # (Auto) 1.3 Thou/mm3 (0.0-0.8); Monocytes % (Auto) 7 % (0-12); Neutrophils # (Auto) 15.7 Thou/mm3 (1.8-7.7); Neutrophils % (Auto) 81 % (37-80); Nucleated Red Blood Cell # 0.06 Thou/mm3 (0.00-0.00); Nucleated Red Blood Cell % 0 /100 WBC (0); Platelet Count 442 Thou/mm3 (140-440); RDW Standard Deviation 50.3 fL (35.1-43.9); Red Blood Count 2.89 Miln/mm3 (4.50-5.90); White Blood Count 19.4 Thou/mm3 (3.8-10.6)
[2025-08-21] MEDS: PIPER/TAZO INJ 4.5 GM in SODIUM CHLORIDE 0.9% (POP) 100 ML IV ×2 (05:50→18:37)
[2025-08-21] MEDS: MIDODRINE 5 MG TABLET 10 MG GT ×3 (05:51→21:12)
[2025-08-21] MEDS: INSULIN LISPRO (AdmeLOG) 1 UNIT/0.01 ML UNIT SC ×2 (05:56→10:17)
[2025-08-21 06:08] LABS: Lactate (Lactic Acid) 1.7 mMol/L (0.4-2.0)
[2025-08-21 06:16] LABS: Hemoglobin 7.0 g/dL (13.5-16.0)
[2025-08-21 06:17] LABS: INR 1.1 (0.9-1.3); Partial Thromboplastin Time 29.3 Seconds (22.0-36.0); Prothrombin Time 11.8 Seconds (9.0-12.2)
[2025-08-21 06:21] LABS: Alanine Aminotransferase 55 U/L (10-49); Albumin, Serum 3.5 gm/dL (3.4-4.8); Albumin/Globulin Ratio 0.8 (1.2-2.2); Alkaline Phosphatase 218 U/L (46-116); Anion Gap 15 (7-16); Aspartate Amino Transferase 37 U/L (0-34); BUN/Creatinine Ratio 35 Ratio (12-20); Bilirubin,Total 0.3 mg/dL (0.3-1.2); Blood Urea Nitrogen 46 mg/dL (9-23); Calcium 8.9 mg/dL (8.3-10.6); Calcium (Corrected) 9.3 mg/dL (8.5-10.1); Carbon Dioxide 20.7 mMol/L (20.0-31.0); Chloride 102 mMol/L (98-107); Creatinine (Component) 1.3 mg/dL (0.6-1.3); Estimated Creatinine Clearance 63.3 mL/min (>60); Globulin 4.2 gm/dL (2.3-3.5); Glucose 212 mg/dL (74-106); Magnesium 2.4 mg/dL (1.6-2.6); Osmolality,Calculated 293 (275-295); Phosphorous 3.8 mg/dL (2.4-5.1); Potassium 3.6 mMol/L (3.4-5.1); Sodium 138 mMol/L (136-145); Total Protein 7.7 gm/dL (5.7-8.2); eGFR 56 See Note
[2025-08-21] MEDS: ALBUMIN HUMAN-KJDA 25% IVPB 25 GM/100 ML BTL IV (07:38)
[2025-08-21] MEDS: POTASSIUM CHLORIDE 10% 20 MEQ/15 ML UDC 40 MEQ GT (07:38)
[2025-08-21] MEDS: FAMOTIDINE INJ 10 MG/ML VIAL 2 ML 20 MG IVP ×2 (08:21→21:11)
[2025-08-21] MEDS: ZINC SULFATE 220 MG CAPSULE NG (08:21)
[2025-08-21] MEDS: APIXABAN 2.5 MG TABLET PO ×2 (08:21→21:12)
[2025-08-21] MEDS: GABAPENTIN 300 MG CAPSULE 600 MG GT ×2 (08:21→21:12)
[2025-08-21] MEDS: MULTIVITAMINS TABLET 1 TAB NG (08:21)
[2025-08-21] MEDS: BALSAM PERU/CASTOR OIL (Venelex) 60 GM TUBE TOP ×2 (08:22→21:12)
[2025-08-21] MEDS: INSULIN DEGLUDEC 5 UNIT/0.05 ML (PER 5 UNITS) 30 UNIT SC (08:32)
[2025-08-21] MEDS: INSULIN LISPRO (AdmeLOG) 1 UNIT/0.01 ML UNIT 10 UNIT SC (11:33)
--- NOTE | 2025-08-21 11:51 | PC.NURSE ---
1010 MD CONNER was made aware that the is at bedside and would like and update on the patient. At 1150 MD Conner and MD Bianchi came and updated the Isabeal, I was present at bedside during updates.
--- NOTE | 2025-08-21 11:56 | ESPR_ITS ---
<Statement entered by Nicanor Montelongo MD - 08/22/25 12:01> TOTAL CC TIME: 45 MIN I saw and evaluated the patient. I reviewed the resident?s note and agree with findings and plan as documented in the resident?s note. Upon my evaluation, this patient had a high probability of imminent or life- threatening deterioration due to acute on chronic hypoxic respiratory failure, septic shock due to pneumonia, which required my direct attention, intervention, and personal management. This time is exclusive of time spent on procedures, which are documented separately if performed. Chronic bedbound tracheostomy and PEG tube dependent patient due to a history of multisystem atrophy and prior CVA Continue Zosyn for likely Pseudomonas pneumonia. The patient has a history of polymicrobial colonization and pneumonia. Narrow if possible based on culture results UTI not likely the cause Already appropriately fluid resuscitated <Statement entered by Pura Edwards MD - 08/21/25 17:57> I have reviewed the note and agree with the resident's assessment & plan with exceptions as below. I have personally reviewed labs, imaging, home meds/prior records, examined the patient, formulated and discussed management plan with the IM team. Patient examined at bedside today. No acute overnight events. Patient seems to use up on her units on insulin drip, will transition to Tresiba 30 units twice daily with 10 units of lispro with meals on top of step 3 sliding scale. 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 Will follow-up blood cultures which seems to be GNR at this time. Will continue with Zosyn. Patient likely continues to have CKD, as renal ultrasound shows scar formation seen on previous ultrasound. Patient continues to have good urine output. MAP is maintained above 65, weaning down off Levophed. Will continue with midodrine 10 mg as needed. Will initiate tube feeds at this time. Patient continued to have rectal tube. Continue with Eliquis, renally dosed. Continue with wound care. Repeat hematology and chemistry in a.m. 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 Minor inaccuracies may be present. Documentation for date of: 08/21/25 Subjective Subjective Interval history: History of present illness: Mr. 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 08/19/2025: Per and nursing facility, the patient was reportedly at his baseline until approximately 1 day prior to admission, when he developed increasing lethargy and tachycardia, prompting transfer to [facility]. On arrival, vital signs were significant for fever to 102.5?F, HR 112, BP 99/64, RR 22, and he was connected to the ventilator via tracheostomy, but unsure of his baseline ventilator dependence unclear. The patient was started on Zosyn empirically given prior history of Pseudomonas infections. Cardiology was consulted for pericardial effusion, and a stat echocardiogram was ordered. Thoracentesis was planned, and Eliquis was held in anticipation of procedure. rapid response was called for patient in tele room Matthew Sanchez due to bradycardia with a heart rate of 29. Upon the hospitalist team arrival at 1916, the patient had no pulse with PEA on the media monitor. Code Blue was called due to PEA. CPR had been initiated by the time the hospitalist team arrived. Cardiac pads were subsequently placed. Respiratory therapy initiated bagged breathing through the patient?s trach tube. 08/20/2025: Patient seen and examined at bedside. Family present, daughter and . Sacral wounds examined by wound nurse Catrachita. Rectal tube placed given wounds and loose stools. 1/2 blood cultures with GNR gram stain. pending speciation. Patient continued home pressors, when attempted to wean patient labs declined. Suspect source likely urinary versus bloodstream, chest imaging reviewed lungs appears stable with pleural effusions small and chronic atelectasis. Given patient is bedbound with low muscle mass baseline creatinine 0.6 on presentation creatinine 1.2 concerning for MARGARETTE given for creatinine clearance in the setting of recurrent renal injury. Renally dose medications, avoid nephrotoxic agents. 08/21/2025: Patient seen and examined at bedside. Cr 1.3 from 1.1. He was transitioned off the insulin drip overnight, and started on ssi per night team, in the AM pt was given 30 U degludec, and tube trickle feeds were resumed with instructions to uptitrated. His sugars have been sub 200. his pressor requirement is down and wbc is also downtrending. his urine appears to be colonized with resistant bacteria that were not responsible for his initial septic presentation. He continues to improve on zosyn, and will deescalate the vancomycin given MRSA nares negative. 08/21/2025: Patient Family update provided to and daughter gerda (on the phone): asked about his clinical condition now, it was explained that he is requiring less pressors and that his clinical condition is improved. he continues on antibiotics for uti despite bacteria grown that is likely colonized and resistant. WBC is downtrending. asked about his kidney function and I explained that due to the repeated insult to his kidneys that he has some chronic kidney disease. Renal US with moderate scarring present, also in light of his recent cardiac arrest in the setting of septic shock, that the ischemic injury to his kidneys likely caused additional injury to the kidneys. Gerda asked about whether his skin chronic skin ulcers contributed to his sepsis, to which we discussed that he has chronic decubitus pressure ulcers, one of which was new and present on admission that did not show any signs of acute infection, no puralent drainage, and not yet to the bone with some granulation tissue and skin break down, but that it is unlikely that those wounds are contributing to his initial sepsis presentation. Exam Vital Signs Temp Pulse Resp BP Pulse Ox O2 Del Method FiO2 98.1 F 86 20 83/42 L 99 Mechanical Ventilation 30 08/21/25 08:00 08/21/25 11:45 08/20/25 13:00 08/21/25 11:45 08/21/25 11:45 08/20/25 13:00 08/21/25 10:31 Narrative Exam General: elderly male, tracheostomy and PEG in place, unresponsive Neuro: spontaneous eye opening, response to painful stimuli, pupils equal and responsive to light. HEENT: NC/AT, MMM, sclera anicteric, trach midline with some scant blood in the tube Cardiovascular: Regular rate and rhythm, no murmurs appreciated Pulmonary: Mechanically ventilated via trach , diminished breath sounds bilaterally, ronchous breath sounds. Abdomen: Soft, nondistended, PEG in place, with puralent drainage expressed. Extremities: 1+ pedal edema b/l, LE cool to touch, nail thickening and black toe nails bilaterally Skin: Warm; chronic sacral ulcers and widespread excoriations of lower extremities, skin break down, Present on admission hole that does not track down to the bone, no puralent matter expressed. (see wound care note for evaluation of wounds. : German catheter in place with mascerated urethral meatus. Objective Labs 08/21/25 04:53 08/21/25 04:53 Labs: Laboratory Results - last 24 hr 08/20/25 08/20/25 08/20/25 12:14 12:24 16:10 WBC RBC Hgb Hct MCV MCH MCHC RDW Std Deviation Plt Count Neut % (Auto) Lymph % (Auto) Blount % (Auto) Eos % (Auto) Baso % (Auto) Neut # (Auto) Lymph # (Auto) Blount # (Auto) Eos # (Auto) Baso # (Auto) Immature Gran # (Auto) Absolute Nucleated RBC Immature Gran % Nucleated RBC % PT INR APTT Sodium Potassium Chloride Carbon Dioxide Anion Gap BUN Creatinine Estim Creat Clear Calc eGFR BUN/Creatinine Ratio Glucose Calculated Osmolality Lactic Acid 3.3 H 2.3 H Calcium Corrected Calcium Phosphorus Magnesium Total Bilirubin AST ALT Alkaline Phosphatase Troponin I 0.464 H* D Total Protein Albumin Globulin Albumin/Globulin Ratio 08/20/25 08/20/25 08/21/25 19:47 23:12 04:53 WBC 19.4 H D RBC 2.89 L Hgb 7.0 L Hct 23.0 L MCV 80 MCH 24.2 L MCHC 30.4 L RDW Std Deviation 50.3 H Plt Count 442 H Neut % (Auto) 81 H Lymph % (Auto) 7 L Blount % (Auto) 7 Eos % (Auto) 5 Baso % (Auto) 0 Neut # (Auto) 15.7 H Lymph # (Auto) 1.3 Blount # (Auto) 1.3 H Eos # (Auto) 0.9 H Baso # (Auto) 0.0 Immature Gran # (Auto) 0.16 H Absolute Nucleated RBC 0.06 H Immature Gran % 1 H Nucleated RBC % 0 PT 11.8 INR 1.1 APTT 29.3 Sodium 138 Potassium 3.6 D Chloride 102 Carbon Dioxide 20.7 Anion Gap 15 BUN 46 H Creatinine 1.3 Estim Creat Clear Calc 63.3 eGFR 56 L BUN/Creatinine Ratio 35 H Glucose 212 H D Calculated Osmolality 293 Lactic Acid 2.6 H 3.3 H Calcium 8.9 Corrected Calcium 9.3 Phosphorus 3.8 Magnesium 2.4 Total Bilirubin 0.3 AST 37 H ALT 55 H Alkaline Phosphatase 218 H Troponin I Total Protein 7.7 Albumin 3.5 Globulin 4.2 H Albumin/Globulin Ratio 0.8 L 08/21/25 06:00 WBC RBC Hgb Hct MCV MCH MCHC RDW Std Deviation Plt Count Neut % (Auto) Lymph % (Auto) Blount % (Auto) Eos % (Auto) Baso % (Auto) Neut # (Auto) Lymph # (Auto) Blount # (Auto) Eos # (Auto) Baso # (Auto) Immature Gran # (Auto) Absolute Nucleated RBC Immature Gran % Nucleated RBC % PT INR APTT Sodium Potassium Chloride Carbon Dioxide Anion Gap BUN Creatinine Estim Creat Clear Calc eGFR BUN/Creatinine Ratio Glucose Calculated Osmolality Lactic Acid 1.7 Calcium Corrected Calcium Phosphorus Magnesium Total Bilirubin AST ALT Alkaline Phosphatase Troponin I Total Protein Albumin Globulin Albumin/Globulin Ratio ABG Interpretation ABG results: 08/19/25 08/19/25 20:08 22:17 ABG pH 7.23 L 7.38 D ABG pCO2 47 36 D ABG pO2 85 140 H D ABG HCO3 20 21 ABG O2 Saturation 95 100 H ABG Base Excess -8 L -4 L Quality Measures Quality Measures sepsis Current suspected stage: sepsis Possible source: pulmonary Blood cultures ordered: yes Antibiotic ordered: Yes Advance care planning discussed with:: patient Assessment & Plan Assessment Current Active Medications: Generic Name Dose Route Start Last Admin Trade Name Freq PRN Reason Stop Dose Admin Acetaminophen 650 mg 08/19/25 15:10 Acetaminophen 325 Mg Tablet PO 09/18/25 15:09 Q6H PRN Fever >100.4 Acetaminophen 650 mg 08/19/25 15:15 Acetaminophen 325 Mg Tablet PO 09/18/25 15:14 Q6H PRN PAIN SCALE 1-3 (mild Hydrocodone Bitart/Acetaminophen 1 tab 08/19/25 15:34 08/19/25 18:10 Hydrocodone/Apap 10/325 Tab GT 08/24/25 15:33 1 tab Q4HR PRN Administration PAIN SCALE 7-10 (Severe Apixaban 2.5 mg 08/20/25 21:00 08/21/25 08:21 Apixaban 2.5 Mg Tablet PO 09/19/25 20:59 2.5 mg BID IMANI Administration Balsam [place] Oil 0 gm 08/20/25 21:00 08/21/25 08:22 Balsam [place] Oil (Venelex) 60 Gm Tube TOP 09/19/25 20:59 1 applicatio BID IMANI Administration Dextrose 25 ml 08/21/25 00:25 Dextrose 50%-Water Inj 50 Ml Syringe IV 09/20/25 00:24 Q15MIN PRN BG 50-70 responsive npo pt Dextrose 50 ml 08/21/25 00:25 Dextrose 50%-Water Inj 50 Ml Syringe IV 09/20/25 00:24 Q15MIN PRN BG <50 OR BG <70 & pt unresponsive Diphenhydramine HCl 25 mg 08/19/25 17:55 Diphenhydramine Elix 25 Mg/10 Ml Udc GT 09/18/25 17:01 Q4H PRN Allergic Symptoms Famotidine 20 mg 08/21/25 21:00 Famotidine Inj 10 Mg/Ml Vial 2 Ml IVP 09/20/25 20:59 BID IMANI Gabapentin 600 mg 08/19/25 21:00 08/21/25 08:21 Gabapentin 300 Mg Capsule GT 09/18/25 20:59 600 mg BID IMANI Administration Glucagon 1 mg 08/19/25 16:15 Glucagon Inj 1 Mg Vial IM Q15MIN PRN BG <70, and no IV access Glucagon 1 mg 08/21/25 00:25 Glucagon Inj 1 Mg Vial IM Q15MIN PRN BG <70, and no IV access Hydromorphone HCl 0.5 mg 08/19/25 17:45 Hydromorphone Inj 2 Mg/Ml Vial IVP 08/24/25 17:44 Q6H PRN BREAKTHROUGH Pain 4-10 Insulin Human Regular 100 unit in 100 mls @ 11.57 mls/hr 08/20/25 09:24 08/20/25 23:00 Myxredlin IV 09/19/25 09:23 Infused On Hold: 08/21/25 00:28 .Q8H39M PRN Titration PER PROTOCOL Protocol 0.1 UNIT/KG/HR Norepinephrine Bitartrate 16 mg in 250 mls @ 5.423 mls/hr 08/20/25 09:42 08/21/25 08:42 Levophed In Ns 16mg/250ml IV 09/18/25 19:27 0.07 mcg/kg/min .Q24H PRN 7.593 mls/hr PER PROTOCOL Titration Protocol 0.05 MCG/KG/MIN Piperacillin Sod/Tazobactam 100 mls @ 200 mls/hr 08/20/25 18:00 08/21/25 05:50 Sod 4.5 gm/ Sodium Chloride IV 08/27/25 17:59 200 mls/hr Q12H IMANI Administration Protocol Vasopressin/Sodium Chloride 20 unit in 100 mls @ 9 mls/hr 08/20/25 18:43 08/20/25 19:00 Vasostrict/Ns Ivpb IV 09/19/25 18:42 0 unit/min .Q11H7M PRN 0 mls/hr PER PROTOCOL Titration Protocol 0.03 UNIT/MIN Insulin Degludec 30 unit 08/21/25 09:00 08/21/25 08:32 Insulin Degludec 5 Unit/0.05 Ml (Per 5 Units) SC 09/20/25 08:59 30 unit BID IMANI Administration Insulin Human Lispro 10 unit 08/21/25 12:00 08/21/25 11:33 Insulin Lispro (Admelog) 1 Unit/0.01 Ml Unit SC 09/20/25 11:59 10 unit Q6HR IMANI Administration Insulin Human Lispro 0 unit 08/21/25 07:27 08/21/25 10:17 Insulin Lispro (Admelog) 1 Unit/0.01 Ml Unit SC 09/20/25 00:29 3 unit Q4HR IMANI Administration Protocol Ipratropium [place] 0.5 mg 08/19/25 17:04 Ipratropium Rt 0.5 Mg/ 2.5 Ml Nebu INH 09/18/25 17:03 Q4H PRN SHORTNESS OF BREATH OR WHEEZE Midodrine 10 mg 08/19/25 22:00 08/21/25 05:51 Midodrine 5 Mg Tablet GT 09/18/25 21:59 10 mg TID IMANI Administration Multivitamins 1 tab 08/20/25 09:15 08/21/25 08:21 Multivitamins Tablet NG 09/19/25 09:14 1 tab QDAY IMANI Administration Oxycodone/Acetaminophen 1 tab 08/20/25 18:21 Oxycodone/Apap 5/325 Tablet GT 08/24/25 15:33 Q6H PRN AGITATION Pharmacy Consult 1 each 08/20/25 10:23 Pharmacy Renal Dose Adjustment 1 Ea XX 09/19/25 10:22 PRN PRN CONSULT Protocol Zinc Sulfate 220 mg 08/20/25 09:15 08/21/25 08:21 Zinc Sulfate 220 Mg Capsule NG 09/19/25 09:14 220 mg QDAY IMANI Administration Plan Mr. Sanchez is a 80 year old gentleman with a hx of recurrent renal injury, CVA with chronic trach and peg, chronic german (hx of Pseudamona UTI sensitive to zosyn) who presented from sub acute facility in [place], with reported increased fatigue and lethargy, found to be febrile, admitted to the floor with sepsis pna vs UTI who subsequently coded on 08/19 and had ROSC, who was subsequently admitted to the ICU for distributive shock on mech vent per the trach and pressors. Neuro CVA hypoxic brain injury Chronic encephalopathy Dx opens eyes spontaneously and responds to painful stimuli CV Septic Shock Ddx Distributive Dx patient appears euvolemic on exam with mucus membraines moist, and trace edema of the LE. 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 Rx Daily CBC, cont to treat potential sources of infection with d/c Vanc (08/19- 08/20) and zosyn (08/19- ) given clinical improvement on zosyn despite urine cx MDR. ET tube secretion Cx with 2+ GNR, Blood Cx 1/2 with GNR (follow up speciation and sensitivities), continue pressor with levofed (requiring less levofed today). Cardiac arrest w ROSC Elevated Troponin - peaked and downtrending Ddx: demand ischemia Dx: given trop elevation without st elevations in the setting of septic shock, higher suspicion for sepsis related demand ischemia. Rx: treat underlying sepsis Pericardial Effusion- stable [employer] Dr. Tarango was consulted, who is unconcerned for a potential tamponade/obstructive physiology, bedside pocus and ct chest redemonstrate the moderate effusion Rx: no intervention indicated at this time, no pericardialcentesis. Rxx: if pt develops obstructive physiology consider bedside pocus to assess for worsening effusion and reconsider pericardialcentesis Pulm Acute on Chronic hypoxic respiratory Failure, Chronic Atelectesis Chronic Trach Ddx: Worsening PNA vs respiratory compensation for metabolic acidosis (improved) vs worsening pleural effusions Dx patient has chronic trach likely colonized with pseudomonas, his Chest Ct when compared to prior has minimal change, continues to have chronic atelectesis at the bases and trace pleural effusions bilaterally Rx stable, cont broad spectrum antibiotics with d/c Vanc (08/19- 08/20) and zosyn (08/19- ), continue mechanical ventilation Small Bilateral Pleural Effusions - stable Rx no intervention indicated at this time. 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 no errythema at the base Rx CTM to worsening puralence, continue with zosyn. Loose stool Dx in setting of decubitus ulcers and minimizing sources of infection and loose stools, continues to have BMs, rectal tube flushed. Rx rectal tube placed 08/20 Renal MARGARETTE Decreased UOP Ddx prerenal vs intrarenal Dx has had recurrent kidney injury in the past, 2/2 sepsis, suspect some possible renal scaring from repeated insult, patient has been sucessfully resusitated and so renal perfusion has been restored, maps >65. Considering that he has had likely ischemic injury from cardiac arrest upon presentation, we will have to monior his renal function to assess for what his new baseline renal function is. Renal US with moderate renal scarring, no hydronephrosis. Rx ctm urine output, renally dose vanc and zosyn for infection. avoid nephrotoxic agents, Lactic Acidosis resolved ENDO Insulin dependent type 2 DM - poorly controlled Dx: A1c 11, and on prior admission in 04/30 a1c of 10, unclear why patient continues to have poor dm control despite being peg'd and at a sub acute facility in [place]. sugars have been better controlled on current regimin , <200. Rx: d/c insulin drip, transitioned to sq, with 30 units degludec bid, q4hr blood sugar checks with step 3 SSI, and q6hr 10 units lispro, resume tube feeds, Chronic German Urine Colonization UTI Ddx possible catheter associated UTI vs pyuria Dx UA with LE + and WBC and bacteria, unable to assess for dysuria given gcs. Urine cx with Burkholderia cepacia, resistant to ertapenem and zosyn, suspect that patient is colonized, and that his active infection is not due to this bacteria. clinically he continues to improve, with reduced pressor requirements. Rx zosyn, continue to monitor for clinical improvement in his status, if spiking fevers and wbc climbing, will consider broadening abx. 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 ID 1/2 GNR Blood Cx Ddx: possible contaminant vs gnr from uti (ie pseudomonas vs klebsiella) leukocytosis is verye elevated at 24. patient is afebrile but presented with fever. Rx: follow up blood culture speciation, cont zosyn, narrow when indicated Skin multiple decubitus sacral ulcers Ddx bed bound vs shearing forces from bed transfers Dx wound care consulted for staging of new vs chronic lesions no puralent drainage noted on exam. Rx multivitiamins, wound care consulted, frequent repositioning, Rxx, poor wound healing due to poorly controlled DM, aim for tighter blood glucose control. Dispo:Admitted to ICU for septic shock continues on levofed, GNR bacteria, on vanc and zosyn, pending culture speciation and suseptabilities. Diet: resume tube feeds. Lines: PIV infiltrated, and L fem central line VTE ppx: GI ppx: Protonix 40 IV BID Bowel Reg: hold for loose stools Code status: FULL Case disclosed with my senior resident Dr. Edwards and my Attending Dr. Reginald Conner MD PGY1
--- NOTE | 2025-08-21 12:22 | PC.NURSE ---
Clarified with MD Conner on restarting tube feedings for the patient. Tube feedings have been off since 08/20/2025 @1930. MD Conner stated to restart tube feedings at yesterdays order and to increase to goal.
[2025-08-21] MEDS: SIMETHICONE 80 MG CHEW GT ×2 (13:05→21:12)
[2025-08-21] MEDS: Norepinephrine/NS 16mg/250ml 16 MG/250 ML BAG 5.423 MG IV (13:08)
--- NOTE | 2025-08-21 14:57 | PC.SS ---
Update: Patient Trach/PEG. No sedation. Patient receiving pressor support. Afebrile. Receiving IV antibiotics. Wound care consulting.
--- NOTE | 2025-08-21 17:05 | ESPR_ITS ---
<Statement entered by Jamie Tarango MD - 08/25/25 18:18> I personally examined evaluated patient was intensive care unit stable condition but patient developed tachycardia hypotension requiring Levophed overall prognosis is long-term prognosis poor since he has poor neurologic status patient is tracheostomy on ventilator and PEG tube.I personally examined the patient evaluate the patient with resident physician PGY 2 Dr. Manzo patient has multiple medical problems dialysis patient end-stage renal disease previous CAD now has had some atypical chest pain shortness of breath mild troponin elevation possibly type II troponin clinically stable clinical picture does not suggest myocardial infarction NSTEMI treating as type II myocardial infarction not due to coronary occlusion possible demand. Will continue to monitor the patient for any change in status. Agree with treatment plan recommendation as documented by resident physician will continue to follow the patient for cardiology point . The patient did have moderate pericardial effusion but not enough to cause hypotension Documentation for date of: 08/21/25 Subjective Subjective Interval history: Patient examined at bedside in ICU. Overnight event on telemetry patient became tachycardic rate around 150. Heart rate sustained for about 20 minutes. Blood pressure resulted in hypotension requiring increase in Levophed. Today patient is in normal sinus rhythm heart rate 80?90. Attempting to wean Levophed today. Urine culture positive for Burkholderia species, blood cultures negative, ET secretions grew GNR. Continue broad-spectrum antibiotic therapy. Exam Vital Signs Temp Pulse Resp BP Pulse Ox O2 Del Method FiO2 97.9 F 82 20 109/52 L 95 Mechanical Ventilation 30 08/21/25 16:00 08/21/25 16:15 08/20/25 13:00 08/21/25 16:15 08/21/25 16:15 08/20/25 13:00 08/21/25 16:00 Narrative Exam General: elderly male, tracheostomy and PEG in place, unresponsive Neuro: spontaneous eye opening, response to painful stimuli, pupils equal and responsive to light. HEENT: NC/AT, MMM, sclera anicteric, trach midline with some scant blood in the tube Cardiovascular: Regular rate and rhythm, no murmurs appreciated Pulmonary: Mechanically ventilated via trach with traces of fresh blood noted, diminished breath sounds bilaterally, ronchous breath sounds. Abdomen: Soft, nondistended, PEG in place, with puralent drainage expressed. Extremities: 1+ pedal edema b/l, LE cool to touch, nail thickening and black toe nails bilaterally Skin: Warm; chronic sacral ulcers and widespread excoriations of lower extremities, skin break down (see wound care note for evaluation of wounds. : German catheter in place with mascerated urethral meatus. Objective Labs 08/21/25 04:53 08/21/25 04:53 Labs: Laboratory Results - last 24 hr 08/20/25 08/20/25 08/21/25 19:47 23:12 04:53 WBC 19.4 H D RBC 2.89 L Hgb 7.0 L Hct 23.0 L MCV 80 MCH 24.2 L MCHC 30.4 L RDW Std Deviation 50.3 H Plt Count 442 H Neut % (Auto) 81 H Lymph % (Auto) 7 L [place] % (Auto) 7 Eos % (Auto) 5 Baso % (Auto) 0 Neut # (Auto) 15.7 H Lymph # (Auto) 1.3 [place] # (Auto) 1.3 H Eos # (Auto) 0.9 H Baso # (Auto) 0.0 Immature Gran # (Auto) 0.16 H Absolute Nucleated RBC 0.06 H Immature Gran % 1 H Nucleated RBC % 0 PT 11.8 INR 1.1 APTT 29.3 Sodium 138 Potassium 3.6 D Chloride 102 Carbon Dioxide 20.7 Anion Gap 15 BUN 46 H Creatinine 1.3 Estim Creat Clear Calc 63.3 eGFR 56 L BUN/Creatinine Ratio 35 H Glucose 212 H D Calculated Osmolality 293 Lactic Acid 2.6 H 3.3 H Calcium 8.9 Corrected Calcium 9.3 Phosphorus 3.8 Magnesium 2.4 Total Bilirubin 0.3 AST 37 H ALT 55 H Alkaline Phosphatase 218 H Total Protein 7.7 Albumin 3.5 Globulin 4.2 H Albumin/Globulin Ratio 0.8 L 08/21/25 06:00 WBC RBC Hgb Hct MCV MCH MCHC RDW Std Deviation Plt Count Neut % (Auto) Lymph % (Auto) [place] % (Auto) Eos % (Auto) Baso % (Auto) Neut # (Auto) Lymph # (Auto) [place] # (Auto) Eos # (Auto) Baso # (Auto) Immature Gran # (Auto) Absolute Nucleated RBC Immature Gran % Nucleated RBC % PT INR APTT Sodium Potassium Chloride Carbon Dioxide Anion Gap BUN Creatinine Estim Creat Clear Calc eGFR BUN/Creatinine Ratio Glucose Calculated Osmolality Lactic Acid 1.7 Calcium Corrected Calcium Phosphorus Magnesium Total Bilirubin AST ALT Alkaline Phosphatase Total Protein Albumin Globulin Albumin/Globulin Ratio ABG Interpretation ABG results: 08/19/25 08/19/25 20:08 22:17 ABG pH 7.23 L 7.38 D ABG pCO2 47 36 D ABG pO2 85 140 H D ABG HCO3 20 21 ABG O2 Saturation 95 100 H ABG Base Excess -8 L -4 L Quality Measures Quality Measures sepsis Current suspected stage: sepsis Possible source: pulmonary Blood cultures ordered: yes Antibiotic ordered: Yes Advance care planning discussed with:: spouse Assessment & Plan Assessment Current Active Medications: Generic Name Dose Route Start Last Admin Trade Name Freq PRN Reason Stop Dose Admin Acetaminophen 650 mg 08/19/25 15:10 Acetaminophen 325 Mg Tablet PO 09/18/25 15:09 Q6H PRN Fever >100.4 Acetaminophen 650 mg 08/19/25 15:15 Acetaminophen 325 Mg Tablet PO 09/18/25 15:14 Q6H PRN PAIN SCALE 1-3 (mild Hydrocodone Bitart/Acetaminophen 1 tab 08/19/25 15:34 08/19/25 18:10 Hydrocodone/Apap 10/325 Tab GT 08/24/25 15:33 1 tab Q4HR PRN Administration PAIN SCALE 7-10 (Severe Apixaban 2.5 mg 08/20/25 21:00 08/21/25 08:21 Apixaban 2.5 Mg Tablet PO 09/19/25 20:59 2.5 mg BID IMANI Administration Balsam Danese/Hazard Oil 0 gm 08/20/25 21:00 08/21/25 08:22 Balsam Danese/Hazard Oil (Venelex) 60 Gm Tube TOP 09/19/25 20:59 1 applicatio BID IMANI Administration Dextrose 25 ml 08/21/25 00:25 Dextrose 50%-Water Inj 50 Ml Syringe IV 09/20/25 00:24 Q15MIN PRN BG 50-70 responsive npo pt Dextrose 50 ml 08/21/25 00:25 Dextrose 50%-Water Inj 50 Ml Syringe IV 09/20/25 00:24 Q15MIN PRN BG <50 OR BG <70 & pt unresponsive Diphenhydramine HCl 25 mg 08/19/25 17:55 Diphenhydramine Elix 25 Mg/10 Ml Udc GT 09/18/25 17:01 Q4H PRN Allergic Symptoms Famotidine 20 mg 08/21/25 21:00 Famotidine Inj 10 Mg/Ml Vial 2 Ml IVP 09/20/25 20:59 BID IMANI Gabapentin 600 mg 08/19/25 21:00 08/21/25 08:21 Gabapentin 300 Mg Capsule GT 09/18/25 20:59 600 mg BID IMANI Administration Glucagon 1 mg 08/19/25 16:15 Glucagon Inj 1 Mg Vial IM Q15MIN PRN BG <70, and no IV access Glucagon 1 mg 08/21/25 00:25 Glucagon Inj 1 Mg Vial IM Q15MIN PRN BG <70, and no IV access Hydromorphone HCl 0.5 mg 08/19/25 17:45 Hydromorphone Inj 2 Mg/Ml Vial IVP 08/24/25 17:44 Q6H PRN BREAKTHROUGH Pain 4-10 Insulin Human Regular 100 unit in 100 mls @ 11.57 mls/hr 08/20/25 09:24 08/20/25 23:00 Myxredlin IV 09/19/25 09:23 Infused On Hold: 08/21/25 00:28 .Q8H39M PRN Titration PER PROTOCOL Protocol 0.1 UNIT/KG/HR Norepinephrine Bitartrate 16 mg in 250 mls @ 5.423 mls/hr 08/20/25 09:42 08/21/25 13:08 Levophed In Ns 16mg/250ml IV 09/18/25 19:27 0.05 mcg/kg/min .Q24H PRN 5.423 mls/hr PER PROTOCOL Administration Protocol 0.05 MCG/KG/MIN Piperacillin Sod/Tazobactam 100 mls @ 200 mls/hr 08/20/25 18:00 08/21/25 05:50 Sod 4.5 gm/ Sodium Chloride IV 08/27/25 17:59 200 mls/hr Q12H IMANI Administration Protocol Vasopressin/Sodium Chloride 20 unit in 100 mls @ 9 mls/hr 08/20/25 18:43 08/20/25 19:00 Vasostrict/Ns Ivpb IV 09/19/25 18:42 0 unit/min .Q11H7M PRN 0 mls/hr PER PROTOCOL Titration Protocol 0.03 UNIT/MIN Insulin Degludec 30 unit 08/21/25 09:00 08/21/25 08:32 Insulin Degludec 5 Unit/0.05 Ml (Per 5 Units) SC 09/20/25 08:59 30 unit BID IMANI Administration Insulin Human Lispro 10 unit 08/21/25 12:00 08/21/25 11:33 Insulin Lispro (Admelog) 1 Unit/0.01 Ml Unit SC 09/20/25 11:59 10 unit Q6HR IMANI Administration Insulin Human Lispro 0 unit 08/21/25 07:27 08/21/25 14:19 Insulin Lispro (Admelog) 1 Unit/0.01 Ml Unit SC 09/20/25 00:29 Not Given Q4HR IMANI Protocol Ipratropium Brunson 0.5 mg 08/19/25 17:04 Ipratropium Rt 0.5 Mg/ 2.5 Ml Nebu INH 09/18/25 17:03 Q4H PRN SHORTNESS OF BREATH OR WHEEZE Midodrine 10 mg 08/19/25 22:00 08/21/25 13:05 Midodrine 5 Mg Tablet GT 09/18/25 21:59 10 mg TID IMANI Administration Multivitamins 1 tab 08/20/25 09:15 08/21/25 08:21 Multivitamins Tablet NG 09/19/25 09:14 1 tab QDAY IMANI Administration Oxycodone/Acetaminophen 1 tab 08/20/25 18:21 Oxycodone/Apap 5/325 Tablet GT 08/24/25 15:33 Q6H PRN AGITATION Pharmacy Consult 1 each 08/20/25 10:23 Pharmacy Renal Dose Adjustment 1 Ea XX 09/19/25 10:22 PRN PRN CONSULT Protocol Zinc Sulfate 220 mg 08/20/25 09:15 08/21/25 08:21 Zinc Sulfate 220 Mg Capsule NG 09/19/25 09:14 220 mg QDAY IMANI Administration Plan Mr. 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 #Moderate pericardial effusion. No evidence of cardiac tamponade. #Left side pneumonia and pleural effusion with respiratory failure. #Status post tracheostomy and PEG tube placement. 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 #Status post PEA cardiopulmonary arrest secondary to septic shock, sepsis. Continue broad-spectrum antibiotics for NSTEMI type II, demand ischemia. Most likely in setting of distributive shock. Low concern for cardiogenic shock--Echo completed 08/19 showing normal LV size, EF 40-50%. Moderate pericardial effusion, no tamponade. Adequate contractility. From cardiac point of view, no need for any pericardiocentesis. There is no evidence of echocardiogram signs of tamponade or clinical tamponade. Continue with vasopressor support. Primary care team to manage above conditions and ongoing care needs. The patient's management plan was discussed with my attending physician Dr. Tarango. Vicky Betancourt, PGY-2
[2025-08-21] MEDS: MIDAZOLAM INJ 1 MG/ML VIAL 2 ML 2 MG IVP (18:53)
--- NOTE | 2025-08-21 18:53 | PC.NURSE ---
pt noted to have rhythmic twitching to face and hands, vss. notified residents Dr Edwards, Dr Eli Mandel. orders received
[2025-08-21] MEDS: SENNOSIDES SYRUP 8.8 MG/5 ML UDC GT (21:13)
[2025-08-21 21:49] LABS: Vancomycin,Trough 20.3 mcg/mL (5.0-10.0)
[2025-08-22] VITALS (106 sets, daily range): BP systolic 81–149; BP diastolic 47–93; PULSE 62–88; RESP 13–22; TEMP 35.7–36.7; O2SAT 52–100
[2025-08-22] MEDS: INSULIN LISPRO (AdmeLOG) 1 UNIT/0.01 ML UNIT 2 UNIT SC ×2 (00:02→05:08)
[2025-08-22] MEDS: MIDODRINE 5 MG TABLET 10 MG GT ×3 (05:08→21:45)
[2025-08-22] MEDS: PIPER/TAZO INJ 4.5 GM in SODIUM CHLORIDE 0.9% (POP) 100 ML IV (05:09)
[2025-08-22 05:24] LABS: Basophils # (Auto) 0.0 Thou/mm3 (0.0-0.2); Basophils % (Auto) 0 % (0-2.5); Eosinophils # (Auto) 0.9 Thou/mm3 (0.0-0.5); Eosinophils % (Auto) 7 % (0-10); Immature Granulocytes Auto 0.06 Thou/mm3 (0.00-0.00); Lymphocytes # (Auto) 1.1 Thou/mm3 (1.0-4.8); Lymphocytes % (Auto) 9 % (10-50); Mean Corpuscular HGB Conc 30.8 g/dl (31.0-37.0); Mean Corpuscular Hemoglobin 24.3 pg (25.0-35.0); Mean Corpuscular Volume 79 fL (80-100); Monocytes # (Auto) 0.6 Thou/mm3 (0.0-0.8); Monocytes % (Auto) 5 % (0-12); Neutrophils # (Auto) 9.4 Thou/mm3 (1.8-7.7); Neutrophils % (Auto) 78 % (37-80); Nucleated Red Blood Cell # 0.03 Thou/mm3 (0.00-0.00); Nucleated Red Blood Cell % 0 /100 WBC (0); Platelet Count 364 Thou/mm3 (140-440); RDW Standard Deviation 50.2 fL (35.1-43.9); Red Blood Count 2.30 Miln/mm3 (4.50-5.90); White Blood Count 11.9 Thou/mm3 (3.8-10.6)
[2025-08-22 05:35] LABS: Hematocrit 18.2 % (41.0-53.0); Hemoglobin 5.6 g/dL (13.5-16.0)
[2025-08-22 05:39] LABS: INR 1.2 (0.9-1.3); Partial Thromboplastin Time 28.4 Seconds (22.0-36.0); Prothrombin Time 12.2 Seconds (9.0-12.2)
[2025-08-22 05:49] LABS: Alanine Aminotransferase 36 U/L (10-49); Albumin, Serum 3.5 gm/dL (3.4-4.8); Albumin/Globulin Ratio 0.9 (1.2-2.2); Alkaline Phosphatase 172 U/L (46-116); Anion Gap 15 (7-16); Aspartate Amino Transferase 24 U/L (0-34); BUN/Creatinine Ratio 37 Ratio (12-20); Bilirubin,Total 0.4 mg/dL (0.3-1.2); Blood Urea Nitrogen 41 mg/dL (9-23); Calcium 8.8 mg/dL (8.3-10.6); Calcium (Corrected) 9.2 mg/dL (8.5-10.1); Carbon Dioxide 22.3 mMol/L (20.0-31.0); Chloride 105 mMol/L (98-107); Creatinine (Component) 1.1 mg/dL (0.6-1.3); Estimated Creatinine Clearance 75.0 mL/min (>60); Globulin 3.8 gm/dL (2.3-3.5); Glucose 156 mg/dL (74-106); Magnesium 2.4 mg/dL (1.6-2.6); Osmolality,Calculated 296 (275-295); Phosphorous 3.0 mg/dL (2.4-5.1); Potassium 3.7 mMol/L (3.4-5.1); Sodium 142 mMol/L (136-145); Total Protein 7.3 gm/dL (5.7-8.2); eGFR > 60 See Note
[2025-08-22 06:45] LABS: Path Review Blood Smear Sent to Pathologist
[2025-08-22 07:16] LABS: Hematocrit 17.9 % (41.0-53.0); Hemoglobin 5.5 g/dL (13.5-16.0)
[2025-08-22] MEDS: POTASSIUM CHLORIDE 10% 20 MEQ/15 ML UDC 40 MEQ GT (07:49)
[2025-08-22] MEDS: ALBUMIN HUMAN-KJDA 25% IVPB 25 GM/100 ML BTL IV ×2 (07:49→08:19)
[2025-08-22] MEDS: MULTIVITAMINS TABLET 1 TAB NG (08:19)
[2025-08-22] MEDS: SIMETHICONE 80 MG CHEW GT ×2 (08:19→21:45)
[2025-08-22] MEDS: ZINC SULFATE 220 MG CAPSULE NG (08:20)
[2025-08-22] MEDS: GABAPENTIN 300 MG CAPSULE 600 MG GT ×2 (08:20→21:45)
[2025-08-22] MEDS: BALSAM PERU/CASTOR OIL (Venelex) 60 GM TUBE TOP ×2 (08:30→21:43)
[2025-08-22] MEDS: INSULIN DEGLUDEC 5 UNIT/0.05 ML (PER 5 UNITS) 10 UNIT SC (08:42)
[2025-08-22] MEDS: CEFEPIME INJ 2 GM in SODIUM CHLORIDE 0.9% (Popper) 50 ML IV (08:45)
--- NOTE | 2025-08-22 10:55 | ESPR_ITS ---
<Statement entered by Nicanor Montelongo MD - 09/06/25 08:32> TOTAL TIME: 45MINUTES ON DIRECT MEDICAL CARE, MANAGEMENT - COORDINATION AND COUNSELING > 50% OF TOTAL TIME I saw and evaluated the patient. I reviewed the resident?s note and agree with findings and plan as documented in the resident?s note. improving suspect upper gib based on past history - but no active melena/brbpr - hemodynamics remain stable overall improving prbc trx x 2 on protonix GI cs Documentation for date of: 08/22/25 Subjective Subjective Interval history: History of present illness: Mr. 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 08/19/2025: Per and nursing facility, the patient was reportedly at his baseline until approximately 1 day prior to admission, when he developed increasing lethargy and tachycardia, prompting transfer to [facility]. On arrival, vital signs were significant for fever to 102.5?F, HR 112, BP 99/64, RR 22, and he was connected to the ventilator via tracheostomy, but unsure of his baseline ventilator dependence unclear. The patient was started on Zosyn empirically given prior history of Pseudomonas infections. Cardiology was consulted for pericardial effusion, and a stat echocardiogram was ordered. Thoracentesis was planned, and Eliquis was held in anticipation of procedure. rapid response was called for patient in tele room Matthew Sanchez due to bradycardia with a heart rate of 29. Upon the hospitalist team arrival at 1916, the patient had no pulse with PEA on the playground monitor. Code Blue was called due to PEA. CPR had been initiated by the time the hospitalist team arrived. Cardiac pads were subsequently placed. Respiratory therapy initiated bagged breathing through the patient?s trach tube. 08/20/2025: Patient seen and examined at bedside. Family present, daughter and . Sacral wounds examined by wound nurse Catrachita. Rectal tube placed given wounds and loose stools. 1/2 blood cultures with GNR gram stain. pending speciation. Patient continued home pressors, when attempted to wean patient labs declined. Suspect source likely urinary versus bloodstream, chest imaging reviewed lungs appears stable with pleural effusions small and chronic atelectasis. Given patient is bedbound with low muscle mass baseline creatinine 0.6 on presentation creatinine 1.2 concerning for MARGARETTE given for creatinine clearance in the setting of recurrent renal injury. Renally dose medications, avoid nephrotoxic agents. 08/21/2025: Patient seen and examined at bedside. Cr 1.3 from 1.1. He was transitioned off the insulin drip overnight, and started on ssi per night team, in the AM pt was given 30 U degludec, and tube trickle feeds were resumed with instructions to uptitrated. His sugars have been sub 200. his pressor requirement is down and wbc is also downtrending. his urine appears to be colonized with resistant bacteria that were not responsible for his initial septic presentation. He continues to improve on zosyn, and will deescalate the vancomycin given MRSA nares negative. 08/21/2025: Patient Family update provided to and daughter gerda (on the phone): asked about his clinical condition now, it was explained that he is requiring less pressors and that his clinical condition is improved. he continues on antibiotics for uti despite bacteria grown that is likely colonized and resistant. WBC is downtrending. asked about his kidney function and I explained that due to the repeated insult to his kidneys that he has some chronic kidney disease. Renal US with moderate scarring present, also in light of his recent cardiac arrest in the setting of septic shock, that the ischemic injury to his kidneys likely caused additional injury to the kidneys. Gerda asked about whether his skin chronic skin ulcers contributed to his sepsis, to which we discussed that he has chronic decubitus pressure ulcers, one of which was new and present on admission that did not show any signs of acute infection, no puralent drainage, and not yet to the bone with some granulation tissue and skin break down, but that it is unlikely that those wounds are contributing to his initial sepsis presentation. 08/22/2025: Patient seen and examined at bedside, overnight he had some fasiculations of his BL arms and mouth, was given 2 of versed, but low suspicion for seizure activity, rather suspect the fasiculations 2/2 effective hypoglycemia given his tighter blood control. AM labs with low Hgb, 5.5 2 units PRB transfused, follow up post transfusion h and h. holding tube feeds in setting of suspected upper GI bleed. His presser requirements have been lower. his ventilator settings were adjusted so his fio2 30 to 50 %. patient was also noted to have thick secretions so RT did lavage and suctioned patient with some thick and red tinged sputum noted. His antibiotics were narrowed given the speciation and sensitivities from zosyn to cefepime. DOMINGA is 8, compared to prior cefepime dominga <2 04/2025 Exam Vital Signs Temp Pulse Resp BP Pulse Ox O2 Del Method FiO2 98.1 F 80 20 97/60 97 Mechanical Ventilation 30 08/22/25 10:41 08/22/25 10:45 08/22/25 10:41 08/22/25 10:45 08/22/25 10:45 08/22/25 04:45 08/22/25 10:06 Narrative Exam General: elderly male, tracheostomy and PEG in place, unresponsive Neuro: spontaneous eye opening, response to painful stimuli, pupils equal and responsive to light. HEENT: NC/AT, MMM, sclera anicteric, trach midline with some scant blood in the tube Cardiovascular: Regular rate and rhythm, no murmurs appreciated Pulmonary: Mechanically ventilated via trach , diminished breath sounds bilaterally, ronchous breath sounds. Abdomen: Soft, nondistended, PEG in place, with puralent drainage expressed. Extremities: 1+ pedal edema b/l, LE cool to touch, nail thickening and black toe nails bilaterally Skin: Warm; chronic sacral ulcers and widespread excoriations of lower extremities, skin break down, Present on admission hole that does not track down to the bone, no puralent matter expressed. (see wound care note for evaluation of wounds. : German catheter in place with mascerated urethral meatus. Objective Labs 08/23/25 04:25 08/23/25 04:25 Labs: Laboratory Results - last 24 hr 08/21/25 08/22/25 08/22/25 21:16 04:27 06:30 WBC 11.9 H D RBC 2.30 L Hgb 5.6 L* 5.5 L* Hct 18.2 L* 17.9 L* MCV 79 L MCH 24.3 L MCHC 30.8 L RDW Std Deviation 50.2 H Plt Count 364 D Neut % (Auto) 78 Lymph % (Auto) 9 L [place] % (Auto) 5 Eos % (Auto) 7 Baso % (Auto) 0 Neut # (Auto) 9.4 H Lymph # (Auto) 1.1 [place] # (Auto) 0.6 Eos # (Auto) 0.9 H Baso # (Auto) 0.0 Immature Gran # (Auto) 0.06 H Absolute Nucleated RBC 0.03 H Immature Gran % 1 H Nucleated RBC % 0 Smear Path Review Sent to Pathologist PT 12.2 INR 1.2 APTT 28.4 Sodium 142 Potassium 3.7 Chloride 105 Carbon Dioxide 22.3 Anion Gap 15 BUN 41 H Creatinine 1.1 Estim Creat Clear Calc 75.0 eGFR > 60 BUN/Creatinine Ratio 37 H Glucose 156 H D Calculated Osmolality 296 H Calcium 8.8 Corrected Calcium 9.2 Phosphorus 3.0 Magnesium 2.4 Total Bilirubin 0.4 AST 24 ALT 36 Alkaline Phosphatase 172 H D Total Protein 7.3 Albumin 3.5 Globulin 3.8 H Albumin/Globulin Ratio 0.9 L Vancomycin Trough 20.3 H* Blood Type O Positive Antibody Screen NEGATIVE Crossmatch See Detail Blood Bank Wristband ID Yes ABG Interpretation ABG results: 08/19/25 08/19/25 20:08 22:17 ABG pH 7.23 L 7.38 D ABG pCO2 47 36 D ABG pO2 85 140 H D ABG HCO3 20 21 ABG O2 Saturation 95 100 H ABG Base Excess -8 L -4 L Quality Measures Quality Measures sepsis Current suspected stage: sepsis Possible source: pulmonary Blood cultures ordered: yes Antibiotic ordered: Yes Advance care planning discussed with:: spouse Assessment & Plan Assessment Current Active Medications: Generic Name Dose Route Start Last Admin Trade Name Freq PRN Reason Stop Dose Admin Acetaminophen 650 mg 08/19/25 15:10 Acetaminophen 325 Mg Tablet PO 09/18/25 15:09 Q6H PRN Fever >100.4 Acetaminophen 650 mg 08/19/25 15:15 Acetaminophen 325 Mg Tablet PO 09/18/25 15:14 Q6H PRN PAIN SCALE 1-3 (mild Hydrocodone Bitart/Acetaminophen 1 tab 08/19/25 15:34 08/19/25 18:10 Hydrocodone/Apap 10/325 Tab GT 08/24/25 15:33 1 tab Q4HR PRN Administration PAIN SCALE 7-10 (Severe Apixaban 2.5 mg 08/20/25 21:00 08/21/25 21:12 Apixaban 2.5 Mg Tablet PO 09/19/25 20:59 2.5 mg On Hold: 08/22/25 07:21 BID IMANI Administration Balsam [place] Oil 0 gm 08/20/25 21:00 08/22/25 08:30 Balsam [place] Oil (Venelex) 60 Gm Tube TOP 09/19/25 20:59 1 applicatio BID IMANI Administration Dextrose 25 ml 08/21/25 00:25 Dextrose 50%-Water Inj 50 Ml Syringe IV 09/20/25 00:24 Q15MIN PRN BG 50-70 responsive npo pt Dextrose 50 ml 08/21/25 00:25 Dextrose 50%-Water Inj 50 Ml Syringe IV 09/20/25 00:24 Q15MIN PRN BG <50 OR BG <70 & pt unresponsive Diphenhydramine HCl 25 mg 08/19/25 17:55 Diphenhydramine Elix 25 Mg/10 Ml Udc GT 09/18/25 17:01 Q4H PRN Allergic Symptoms Gabapentin 600 mg 08/19/25 21:00 08/22/25 08:20 Gabapentin 300 Mg Capsule GT 09/18/25 20:59 600 mg BID IMANI Administration Glucagon 1 mg 08/21/25 00:25 Glucagon Inj 1 Mg Vial IM Q15MIN PRN BG <70, and no IV access Hydromorphone HCl 0.5 mg 08/19/25 17:45 Hydromorphone Inj 2 Mg/Ml Vial IVP 08/24/25 17:44 Q6H PRN BREAKTHROUGH Pain 4-10 Vasopressin/Sodium Chloride 20 unit in 100 mls @ 9 mls/hr 08/20/25 18:43 08/20/25 19:00 Vasostrict/Ns Ivpb IV 09/19/25 18:42 0 unit/min .[id number] PRN 0 mls/hr PER PROTOCOL Titration Protocol 0.03 UNIT/MIN Norepinephrine/Dextrose 8 mg in 250 mls @ 10.884 mls/hr 08/22/25 07:22 Levophed In D5w 8mg/250ml IV 09/21/25 07:21 .[id number] PRN PER PROTOCOL Protocol 0.05 MCG/KG/MIN Cefepime HCl 2 gm/ Sodium 50 mls @ 100 mls/hr 08/22/25 08:37 08/22/25 08:45 Chloride IV 08/29/25 08:36 100 mls/hr Q8HR IMANI Administration Insulin Degludec 10 unit 08/22/25 09:00 08/22/25 08:42 Insulin Degludec 5 Unit/0.05 Ml (Per 5 Units) SC 09/21/25 08:59 10 unit QDAY IMANI Administration Insulin Human Lispro 2 unit 08/22/25 00:00 08/22/25 05:08 Insulin Lispro (Admelog) 1 Unit/0.01 Ml Unit SC 09/21/25 00:00 2 unit On Hold: 08/22/25 08:28 Q6HR IMANI Administration Insulin Human Lispro 0 unit 08/22/25 10:00 08/22/25 09:34 Insulin Lispro (Admelog) 1 Unit/0.01 Ml Unit SC 09/21/25 09:59 Not Given Q4HR [facility] Protocol Ipratropium [place] 0.5 mg 08/19/25 17:04 Ipratropium Rt 0.5 Mg/ 2.5 Ml Nebu INH 09/18/25 17:03 Q4H PRN SHORTNESS OF BREATH OR WHEEZE Midodrine 10 mg 08/19/25 22:00 08/22/25 05:08 Midodrine 5 Mg Tablet GT 09/18/25 21:59 10 mg TID IMANI Administration Multivitamins 1 tab 08/20/25 09:15 08/22/25 08:19 Multivitamins Tablet NG 09/19/25 09:14 1 tab QDAY IMANI Administration Oxycodone/Acetaminophen 1 tab 08/20/25 18:21 Oxycodone/Apap 5/325 Tablet GT 08/24/25 15:33 Q6H PRN AGITATION Pantoprazole Sodium 40 mg 08/22/25 09:00 08/22/25 08:43 Pantoprazole Inj 40 Mg Vial IVP 09/21/25 08:59 40 mg BID IMANI Administration Pharmacy Consult 1 each 08/20/25 10:23 Pharmacy Renal Dose Adjustment 1 Ea XX 09/19/25 10:22 PRN PRN CONSULT Protocol Simethicone 80 mg 08/21/25 21:00 08/22/25 08:19 Simethicone 80 Mg Chew GT 09/20/25 20:59 80 mg BID IMANI Administration Zinc Sulfate 220 mg 08/20/25 09:15 08/22/25 08:20 Zinc Sulfate 220 Mg Capsule NG 09/19/25 09:14 220 mg QDAY IAMNI Administration Plan Mr. 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 suspected to have upper GI bleed given acute anemia drop. Neuro CVA hypoxic brain injury Chronic encephalopathy Dx opens eyes spontaneously and responds to painful stimuli CV Septic Shock Ddx Distributive Dx patient appears euvolemic on exam with mucus membraines moist, and trace edema of the LE. 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 thick secretions suctioned through trach, pneumonia suspected. Rx Daily CBC, cont to treat potential sources of infection with d/c Vanc (08/19- 08/20) and zosyn (08/19- 08/21) narrowed to cefepime 1gm q12hr (renally dosed given ckd despite low cr, bed bound) DOIMNGA 08/2025 8, compared to cefepime DOMINGA <2 in 04/2025. Colonized with pseudamonas. continue pressor with levofed (requiring less levofed today). Cardiac arrest w ROSC Elevated Troponin - peaked and downtrending Ddx: demand ischemia Dx: given trop elevation without st elevations in the setting of septic shock, higher suspicion for sepsis related demand ischemia. Rx: treat underlying sepsis Pericardial Effusion- stable Human Resources Operations Coordinator Dr. Tarango was consulted, who is unconcerned for a potential tamponade/obstructive physiology, bedside pocus and ct chest redemonstrate the moderate effusion Rx: no intervention indicated at this time, no pericardialcentesis. Rxx: if pt develops obstructive physiology consider bedside pocus to assess for worsening effusion and reconsider pericardialcentesis Pulm Acute on Chronic hypoxic respiratory Failure, 2/2 Health Care Associated PNA, Colonized with Pseudomonas Chronic Atelectesis Chronic Trach Ddx: Worsening PNA vs respiratory compensation for metabolic acidosis (improved) vs worsening pleural effusions Dx patient has chronic trach likely colonized with pseudomonas, his Chest Ct when compared to prior has minimal change, continues to have chronic atelectesis at the bases. Rx stable, cont broad spectrum antibiotics with d/c Vanc (08/19- 08/20) and zosyn (08/19- 08/21) narrowed to cefepime 1gm q12hr (renally dosed given ckd despite low cr, bed bound), continue mechanical ventilation (increased FiO2 50 % from 30%) given blood loss anemia in setting of suspected upper GI bleed, and hypoxia from lower circulating hgb. guafenicin 100 mg TID given thick secretions. Small Bilateral Pleural Effusions - stable Rx no intervention indicated at this time. GI Hx of Esophogeal Ulcerations Hx of Gastritis Hx of Duodenal Ulcers. Ddx: Suspect upper GI bleed given ICU stress induced ulcers and hx of prior ulcers Dx: patient has been in the ICU since 08/19, he has been on gi ppx, but suspect that his prior ulcers have been actively oozing for the past several days as his hgb has been slowly down-trending so slow bleed rather than mandie bleeding. Rx: Protonix 40 BID, 2 Units PRBC, follow up post transfusion h and h, hold apixaban in setting of acute blood loss anemia. Rxx: if post transfusion h and h does not improve, consider GI consult, and possible intervention given suspicion for bleeding ulcerations in the stomach vs esophagus. 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 no errythema at the base Rx CTM to worsening puralence, zosyn (08/19-08/21) was narrowed to cefepime 08/21- Loose stool Dx in setting of decubitus ulcers and minimizing sources of infection and loose stools, continues to have BMs, rectal tube flushed. Rx rectal tube placed 08/20 Mild Hepatitis - resolved Ddx sepsis related hepatitis Rx daily cmp, monitor for worsening abdominal pain Renal MARGARETTE on CKD Decreased UOP Ddx prerenal vs intrarenal Dx has had recurrent kidney injury in the past, 2/2 sepsis, suspect some possible renal scaring from repeated insult, patient has been sucessfully resusitated and so renal perfusion has been restored, maps >65.renal scarring on US. he has had increased UOP for the past 24hrs to 45-60cc/hr, compared to 30 cc/hr yesterday. Rx ctm urine output, renally dose cefepime for infection. avoid nephrotoxic agents. Lactic Acidosis- resolved ENDO Insulin dependent type 2 DM - poorly controlled Dx: A1c 11, and on prior admission in 04/30 a1c of 10, unclear why patient continues to have poor dm control despite being peg'd and at a sub acute facility in [place]. BS have been stable in the 150s throughout the day. Rx: 10 units degludec qhs, q4hr blood sugar checks with step 3 SSI, in setting of NPO given suspician of gtube. Chronic German Urine Colonization UTI Ddx possible catheter associated UTI vs pyuria Dx UA with LE + and WBC and bacteria, unable to assess for dysuria given gcs. Urine cx with Burkholderia cepacia, resistant to ertapenem and zosyn, suspect that patient is colonized, and that his active infection is not due to this bacteria. clinically he continues to improve, with reduced pressor requirements. Rx zosyn, continue to monitor for clinical improvement in his status, if spiking fevers and wbc climbing, will consider broadening abx. HEME Acute blood loss anemia Ddx: suspect upper GI bleed given hx of prior upper gi bleeding 2/2 ulcerations. 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 rrx: monitor for bleeding. ID 1/2 GNR Blood Cx Ddx: possible contaminant vs gnr from uti (ie pseudomonas vs klebsiella) leukocytosis is very elevated at 24. patient is afebrile but presented with fever. Rx: follow up blood culture speciation, per lab speciation should result 08/23 at 7 am high suspician for contaminiant given it is growing 2bacteria. Skin multiple decubitus sacral ulcers Ddx bed bound vs shearing forces from bed transfers Dx wound care consulted for staging of new vs chronic lesions no puralent drainage noted on exam. Rx multivitiamins, wound care consulted, frequent repositioning, Rxx, poor wound healing due to poorly controlled DM, aim for tighter blood glucose control. Dispo:Admitted to ICU for septic shock continues on levofed, zosyn narrowed to to cefepime, GI bleed suspected,2 units prbc transfused. Diet: holding tube feeds in setting of upper gi bleed suspected Lines: PIV infiltrated, and L fem central line VTE ppx: hold elequis 2.5 bid in setting of upper GI bleed. GI ppx: Protonix 40 IV BID Bowel Reg: hold for loose stools Code status: FULL Case disclosed with my senior resident Dr. Bianchi and my Attending Dr. Reginald Conner MD PGY1 LPatient examined and case discussed with the team including attending physician Dr Montelongo. Note reviewed, I agree with the care plan as documented. Mr. Sanchez is a 80-year-old gentleman with an extensive past medical history, chronic trach and PEG, who was brought in to the ED from [facility] and admitted to medicine floors for sepsis secondary to PNA. HE was upgraded to ICU for low BP, requiring pressor support. Antibiotics changed based on sensitivity panel, to cefepime 2g q12H (renally dosed). Patient has been off of Levophed for the last 12 hours, remains stable on IMANI midodrine and albumin. Hb dropped from 7 -> 5.6 today, 2 units PRBC ordered for transfusion. Post transfusion H&H 7.2 and hct wnl. Plan: Will downgrade to medical floors in the next 24 hours. Continue wound care and IV antibiotics. Please refer to the note above for further details. - Jatinder Bianchi MD, PGY 3 Disclaimer: The document may contain phonetic/typographic errors due to voice recognition software. These errors are purely due to imperfections in the software program.
[2025-08-22] MEDS: ACETYLCYSTEINE SOL 20% 4 ML NEBU 3 ML INH (11:56)
[2025-08-22] MEDS: guaiFENesin SYRUP 200 MG/10 ML UDC 100 MG GT ×2 (14:09→21:43)
[2025-08-22 17:42] LABS: Hematocrit 21.9 % (41.0-53.0)
--- NOTE | 2025-08-22 17:43 | ESPR_ITS ---
<Statement entered by Jamie Tarango MD - 08/25/25 18:20> I personally examined the patient evaluate the patient in ICU patient remains unstable but received transfusion renal function remained stable no significant cardiac arrhythmias blood pressure maintaining well now continue to monitor the patient closely intensive care eval the patient resident physician PGY 2 Dr. Manzo agree with the treatment plan recommendation as documented do not still think pericardial effusion needs to be addressed at this point as it is only small to moderate Documentation for date of: 08/22/25 Subjective Subjective Interval history: 08/21: Patient examined at bedside in ICU. Overnight event on telemetry patient became tachycardic rate around 150. Heart rate sustained for about 20 minutes. Blood pressure resulted in hypotension requiring increase in Levophed. Today patient is in normal sinus rhythm heart rate 80?90. Attempting to wean Levophed today. Urine culture positive for Burkholderia species, blood cultures negative, ET secretions grew GNR. Continue broad-spectrum antibiotic therapy. 08/22: Patient seen at bedside. Levophed continues to be weaned with BP today around 83/56. Telemetry reviewed, he remains in normal sinus rhythm with rate 60-70. Hb dropped to 5.5. PEG tube feeds were held due to concern for GI bleed. Cr downtrended to 1.1. Patient is receiving 2 units prbc. Antibiotics narrowed to cefepime. For septic shock which had caused demand ischemia NSTEMI II. Urine output +1031 in past 24hrs. Exam Vital Signs Temp Pulse Resp BP Pulse Ox O2 Del Method FiO2 98.1 F 71 20 149/93 H 94 L Mechanical Ventilation 50 08/22/25 16:02 08/22/25 16:15 08/22/25 16:02 08/22/25 16:15 08/22/25 16:15 08/22/25 04:45 08/22/25 16:00 Narrative Exam General: elderly male, tracheostomy and PEG in place, unresponsive Neuro: spontaneous eye opening, response to painful stimuli, pupils equal and responsive to light. HEENT: NC/AT, MMM, sclera anicteric, trach midline with some scant blood in the tube Cardiovascular: Regular rate and rhythm, no murmurs appreciated Pulmonary: Mechanically ventilated via trach , diminished breath sounds bilaterally, ronchous breath sounds. Abdomen: Soft, nondistended, PEG in place, with puralent drainage expressed. Extremities: 1+ pedal edema b/l, LE cool to touch, nail thickening and black toe nails bilaterally Skin: Warm; chronic sacral ulcers and widespread excoriations of lower extremities, skin break down, Present on admission hole that does not track down to the bone, no puralent matter expressed. (see wound care note for evaluation of wounds. : German catheter in place with mascerated urethral meatus. Objective Labs 08/22/25 17:27 08/22/25 04:27 Labs: Laboratory Results - last 24 hr 08/21/25 08/22/25 08/22/25 21:16 04:27 06:30 WBC 11.9 H D RBC 2.30 L Hgb 5.6 L* 5.5 L* Hct 18.2 L* 17.9 L* MCV 79 L MCH 24.3 L MCHC 30.8 L RDW Std Deviation 50.2 H Plt Count 364 D Neut % (Auto) 78 Lymph % (Auto) 9 L Douglas % (Auto) 5 Eos % (Auto) 7 Baso % (Auto) 0 Neut # (Auto) 9.4 H Lymph # (Auto) 1.1 Douglas # (Auto) 0.6 Eos # (Auto) 0.9 H Baso # (Auto) 0.0 Immature Gran # (Auto) 0.06 H Absolute Nucleated RBC 0.03 H Immature Gran % 1 H Nucleated RBC % 0 Smear Path Review Sent to Pathologist PT 12.2 INR 1.2 APTT 28.4 Sodium 142 Potassium 3.7 Chloride 105 Carbon Dioxide 22.3 Anion Gap 15 BUN 41 H Creatinine 1.1 Estim Creat Clear Calc 75.0 eGFR > 60 BUN/Creatinine Ratio 37 H Glucose 156 H D Calculated Osmolality 296 H Calcium 8.8 Corrected Calcium 9.2 Phosphorus 3.0 Magnesium 2.4 Total Bilirubin 0.4 AST 24 ALT 36 Alkaline Phosphatase 172 H D Total Protein 7.3 Albumin 3.5 Globulin 3.8 H Albumin/Globulin Ratio 0.9 L Vancomycin Trough 20.3 H* Blood Type O Positive Antibody Screen NEGATIVE Crossmatch See Detail Blood Bank Wristband ID Yes ABG Interpretation ABG results: 08/19/25 08/19/25 20:08 22:17 ABG pH 7.23 L 7.38 D ABG pCO2 47 36 D ABG pO2 85 140 H D ABG HCO3 20 21 ABG O2 Saturation 95 100 H ABG Base Excess -8 L -4 L Quality Measures Quality Measures sepsis Current suspected stage: septic shock (LA >4 and/or hypotension) Sepsis reassessment completed at (date): 08/22/25 Sepsis reassessment completed at (time): 19:39 Possible source: pulmonary Blood cultures ordered: yes Antibiotic ordered: Yes Advance care planning discussed with:: spouse Assessment & Plan Assessment Current Active Medications: Generic Name Dose Route Start Last Admin Trade Name Freq PRN Reason Stop Dose Admin Acetaminophen 650 mg 08/19/25 15:10 Acetaminophen 325 Mg Tablet PO 09/18/25 15:09 Q6H PRN Fever >100.4 Acetaminophen 650 mg 08/19/25 15:15 Acetaminophen 325 Mg Tablet PO 09/18/25 15:14 Q6H PRN PAIN SCALE 1-3 (mild Hydrocodone Bitart/Acetaminophen 1 tab 08/19/25 15:34 08/19/25 18:10 Hydrocodone/Apap 10/325 Tab GT 08/24/25 15:33 1 tab Q4HR PRN Administration PAIN SCALE 7-10 (Severe Apixaban 2.5 mg 08/20/25 21:00 08/21/25 21:12 Apixaban 2.5 Mg Tablet PO 09/19/25 20:59 2.5 mg On Hold: 08/22/25 07:21 BID IMANI Administration Balsam [place] Oil 0 gm 08/20/25 21:00 08/22/25 08:30 Balsam [place] Oil (Venelex) 60 Gm Tube TOP 09/19/25 20:59 1 applicatio BID IMANI Administration Dextrose 25 ml 08/21/25 00:25 Dextrose 50%-Water Inj 50 Ml Syringe IV 09/20/25 00:24 Q15MIN PRN BG 50-70 responsive npo pt Dextrose 50 ml 08/21/25 00:25 Dextrose 50%-Water Inj 50 Ml Syringe IV 09/20/25 00:24 Q15MIN PRN BG <50 OR BG <70 & pt unresponsive Diphenhydramine HCl 25 mg 08/19/25 17:55 Diphenhydramine Elix 25 Mg/10 Ml Udc GT 09/18/25 17:01 Q4H PRN Allergic Symptoms Gabapentin 600 mg 08/19/25 21:00 08/22/25 08:20 Gabapentin 300 Mg Capsule GT 09/18/25 20:59 600 mg BID IMANI Administration Glucagon 1 mg 08/21/25 00:25 Glucagon Inj 1 Mg Vial IM Q15MIN PRN BG <70, and no IV access Guaifenesin 100 mg 08/22/25 14:00 08/22/25 14:09 Guaifenesin Syrup 200 Mg/10 Ml Udc GT 09/21/25 13:59 100 mg TID IMANI Administration Protocol Hydromorphone HCl 0.5 mg 08/19/25 17:45 Hydromorphone Inj 2 Mg/Ml Vial IVP 08/24/25 17:44 Q6H PRN BREAKTHROUGH Pain 4-10 Vasopressin/Sodium Chloride 20 unit in 100 mls @ 9 mls/hr 08/20/25 18:43 08/20/25 19:00 Vasostrict/Ns Ivpb IV 09/19/25 18:42 0 unit/min .Q11H7M PRN 0 mls/hr PER PROTOCOL Titration Protocol 0.03 UNIT/MIN Norepinephrine/Dextrose 8 mg in 250 mls @ 10.884 mls/hr 08/22/25 07:22 Levophed In D5w 8mg/250ml IV 09/21/25 07:21 .[id number] PRN PER PROTOCOL Protocol 0.05 MCG/KG/MIN Cefepime HCl 1 gm/ Sodium 50 mls @ 100 mls/hr 08/22/25 21:00 Chloride IV 08/29/25 20:59 Q12HR [facility] Insulin Degludec 10 unit 08/22/25 09:00 08/22/25 08:42 Insulin Degludec 5 Unit/0.05 Ml (Per 5 Units) SC 09/21/25 08:59 10 unit QDAY [facility] Administration Insulin Human Lispro 2 unit 08/22/25 00:00 08/22/25 05:08 Insulin Lispro (Admelog) 1 Unit/0.01 Ml Unit SC 09/21/25 00:00 2 unit On Hold: 08/22/25 08:28 Q6HR [facility] Administration Insulin Human Lispro 0 unit 08/22/25 10:00 08/22/25 14:06 Insulin Lispro (Admelog) 1 Unit/0.01 Ml Unit [place] 09/21/25 09:59 Not Given Q4HR [facility] Protocol Ipratropium [place] 0.5 mg 08/19/25 17:04 Ipratropium Rt 0.5 Mg/ 2.5 Ml Nebu INH 09/18/25 17:03 Q4H PRN SHORTNESS OF BREATH OR WHEEZE Midodrine 10 mg 08/19/25 22:00 08/22/25 14:09 Midodrine 5 Mg Tablet GT 09/18/25 21:59 10 mg TID IMANI Administration Multivitamins 1 tab 08/20/25 09:15 08/22/25 08:19 Multivitamins Tablet NG 09/19/25 09:14 1 tab QDAY IMANI Administration Oxycodone/Acetaminophen 1 tab 08/20/25 18:21 Oxycodone/Apap 5/325 Tablet GT 08/24/25 15:33 Q6H PRN AGITATION Pantoprazole Sodium 40 mg 08/22/25 09:00 08/22/25 08:43 Pantoprazole Inj 40 Mg Vial IVP 09/21/25 08:59 40 mg BID IMANI Administration Pharmacy Consult 1 each 08/20/25 10:23 Pharmacy Renal Dose Adjustment 1 Ea XX 09/19/25 10:22 PRN PRN CONSULT Protocol Simethicone 80 mg 08/21/25 21:00 08/22/25 08:19 Simethicone 80 Mg Chew GT 09/20/25 20:59 80 mg BID IMANI Administration Zinc Sulfate 220 mg 08/20/25 09:15 08/22/25 08:20 Zinc Sulfate 220 Mg Capsule NG 09/19/25 09:14 220 mg QDAY IMANI Administration Plan Mr. 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 #Moderate pericardial effusion. No evidence of cardiac tamponade. #Left side pneumonia and pleural effusion with respiratory failure. #Status post tracheostomy and PEG tube placement. 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 #Status post PEA cardiopulmonary arrest secondary to septic shock, sepsis. Continue broad-spectrum antibiotics for NSTEMI type II, demand ischemia. Most likely in setting of distributive shock (septic shock). Low concern for cardiogenic shock--Echo completed 08/19 showing normal LV size, EF 40-50%. Moderate pericardial effusion, no tamponade. Adequate contractility. From cardiac point of view, no need for any pericardiocentesis. There is no evidence of echocardiogram signs of tamponade or clinical tamponade. Continue with vasopressor support and antibiotics. Primary care team to manage above conditions and ongoing care needs. The patient's management plan was discussed with my attending physician Dr. Tarango. Vicky Betancourt, PGY-2
[2025-08-22 17:46] LABS: Hemoglobin 7.2 g/dL (13.5-16.0)
[2025-08-22] MEDS: CEFEPIME INJ 1 GM in SODIUM CHLORIDE 0.9% (Popper) 50 ML IV (21:44)
[2025-08-22 22:58] LABS: Hematocrit 21.9 % (41.0-53.0)
[2025-08-22 22:59] LABS: Hemoglobin 7.0 g/dL (13.5-16.0)
[2025-08-23] VITALS (33 sets, daily range): BP systolic 107–148; BP diastolic 66–83; PULSE 61–74; RESP 20–22; TEMP 36.2–36.9; O2SAT 95–100; BMI 32.0
[2025-08-23 05:41] LABS: Basophils # (Auto) 0.0 Thou/mm3 (0.0-0.2); Basophils % (Auto) 0 % (0-2.5); Eosinophils # (Auto) 0.6 Thou/mm3 (0.0-0.5); Eosinophils % (Auto) 6 % (0-10); Hematocrit 22.0 % (41.0-53.0); Immature Granulocytes Auto 0.04 Thou/mm3 (0.00-0.00); Lymphocytes # (Auto) 1.1 Thou/mm3 (1.0-4.8); Lymphocytes % (Auto) 12 % (10-50); Mean Corpuscular HGB Conc 33.2 g/dl (31.0-37.0); Mean Corpuscular Hemoglobin 26.7 pg (25.0-35.0); Mean Corpuscular Volume 81 fL (80-100); Monocytes # (Auto) 0.4 Thou/mm3 (0.0-0.8); Monocytes % (Auto) 4 % (0-12); Neutrophils # (Auto) 7.5 Thou/mm3 (1.8-7.7); Neutrophils % (Auto) 78 % (37-80); Nucleated Red Blood Cell # 0.04 Thou/mm3 (0.00-0.00); Nucleated Red Blood Cell % 0 /100 WBC (0); Platelet Count 336 Thou/mm3 (140-440); RDW Standard Deviation 48.8 fL (35.1-43.9); Red Blood Count 2.73 Miln/mm3 (4.50-5.90); White Blood Count 9.6 Thou/mm3 (3.8-10.6)
[2025-08-23 05:42] LABS: Hemoglobin 7.3 g/dL (13.5-16.0)
[2025-08-23 05:58] LABS: INR 1.1 (0.9-1.3); Partial Thromboplastin Time 26.8 Seconds (22.0-36.0); Prothrombin Time 12.0 Seconds (9.0-12.2)
[2025-08-23] MEDS: MIDODRINE 5 MG TABLET 10 MG GT ×3 (06:11→21:39)
[2025-08-23] MEDS: guaiFENesin SYRUP 200 MG/10 ML UDC 100 MG GT ×3 (06:11→21:38)
[2025-08-23 06:26] LABS: Alanine Aminotransferase 27 U/L (10-49); Albumin, Serum 3.8 gm/dL (3.4-4.8); Albumin/Globulin Ratio 1.1 (1.2-2.2); Alkaline Phosphatase 144 U/L (46-116); Anion Gap 14 (7-16); Aspartate Amino Transferase 24 U/L (0-34); BUN/Creatinine Ratio 41 Ratio (12-20); Bilirubin,Total 0.7 mg/dL (0.3-1.2); Blood Urea Nitrogen 37 mg/dL (9-23); Calcium 9.0 mg/dL (8.3-10.6); Calcium (Corrected) 9.2 mg/dL (8.5-10.1); Carbon Dioxide 22.4 mMol/L (20.0-31.0); Chloride 108 mMol/L (98-107); Creatinine (Component) 0.9 mg/dL (0.6-1.3); Estimated Creatinine Clearance 91.6 mL/min (>60); Globulin 3.6 gm/dL (2.3-3.5); Glucose 98 mg/dL (74-106); Magnesium 2.2 mg/dL (1.6-2.6); Osmolality,Calculated 295 (275-295); Phosphorous 2.5 mg/dL (2.4-5.1); Potassium 4.0 mMol/L (3.4-5.1); Sodium 144 mMol/L (136-145); Total Protein 7.4 gm/dL (5.7-8.2); eGFR > 60 See Note
[2025-08-23] MEDS: CEFEPIME INJ 1 GM in SODIUM CHLORIDE 0.9% (Popper) 50 ML IV ×2 (08:27→21:39)
[2025-08-23] MEDS: BALSAM PERU/CASTOR OIL (Venelex) 60 GM TUBE TOP ×2 (08:29→21:40)
[2025-08-23] MEDS: GABAPENTIN 300 MG CAPSULE 600 MG GT ×2 (08:29→21:39)
[2025-08-23] MEDS: ZINC SULFATE 220 MG CAPSULE NG (08:29)
[2025-08-23] MEDS: MULTIVITAMINS TABLET 1 TAB NG (08:29)
[2025-08-23] MEDS: SIMETHICONE 80 MG CHEW GT ×2 (08:29→21:38)
--- NOTE | 2025-08-23 10:12 | ESPR_ITS ---
<Statement entered by Pura Edwards MD - 08/23/25 18:20> I have reviewed the note and agree with the resident's assessment & plan with exceptions as below. I have personally reviewed labs, imaging, home meds/prior records, examined the patient, formulated and discussed management plan with the IM team. Pt examined at bedside today. No acute overnight events. Pt remains to be off vasopressors, continues to have good UOP (700cc), Hgb 7.2 at this time. Will resume Eliquis renally dosed at 2100. Pt will continue on Cefepime for Pseudomonas Sputum and also will cover for Enterococcus and Proteus bacteremia. Pt will be downgraded to the hospitalist team today. 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 08/19/2025: Per and nursing facility, the patient was reportedly at his baseline until approximately 1 day prior to admission, when he developed increasing lethargy and tachycardia, prompting transfer to [facility]. On arrival, vital signs were significant for fever to 102.5?F, HR 112, BP 99/64, RR 22, and he was connected to the ventilator via tracheostomy, but unsure of his baseline ventilator dependence unclear. The patient was started on Zosyn empirically given prior history of Pseudomonas infections. Cardiology was consulted for pericardial effusion, and a stat echocardiogram was ordered. Thoracentesis was planned, and Eliquis was held in anticipation of procedure. rapid response was called for patient in tele room Matthew Sanchez due to bradycardia with a heart rate of 29. Upon the hospitalist team arrival at 1916, the patient had no pulse with PEA on the equipment monitor phototypesetting. Code Blue was called due to PEA. CPR had been initiated by the time the hospitalist team arrived. Cardiac pads were subsequently placed. Respiratory therapy initiated bagged breathing through the patient?s trach tube. 08/20/2025: Patient seen and examined at bedside. Family present, daughter and . Sacral wounds examined by wound nurse Catrachita. Rectal tube placed given wounds and loose stools. 1/2 blood cultures with GNR gram stain. pending speciation. Patient continued home pressors, when attempted to wean patient labs declined. Suspect source likely urinary versus bloodstream, chest imaging reviewed lungs appears stable with pleural effusions small and chronic atelectasis. Given patient is bedbound with low muscle mass baseline creatinine 0.6 on presentation creatinine 1.2 concerning for MARGARETTE given for creatinine clearance in the setting of recurrent renal injury. Renally dose medications, avoid nephrotoxic agents. 08/21/2025: Patient seen and examined at bedside. Cr 1.3 from 1.1. He was transitioned off the insulin drip overnight, and started on ssi per night team, in the AM pt was given 30 U degludec, and tube trickle feeds were resumed with instructions to uptitrated. His sugars have been sub 200. his pressor requirement is down and wbc is also downtrending. his urine appears to be colonized with resistant bacteria that were not responsible for his initial septic presentation. He continues to improve on zosyn, and will deescalate the vancomycin given MRSA nares negative. 08/21/2025: Patient Family update provided to and daughter gerda (on the phone): asked about his clinical condition now, it was explained that he is requiring less pressors and that his clinical condition is improved. he continues on antibiotics for uti despite bacteria grown that is likely colonized and resistant. WBC is downtrending. asked about his kidney function and I explained that due to the repeated insult to his kidneys that he has some chronic kidney disease. Renal US with moderate scarring present, also in light of his recent cardiac arrest in the setting of septic shock, that the ischemic injury to his kidneys likely caused additional injury to the kidneys. Gerda asked about whether his skin chronic skin ulcers contributed to his sepsis, to which we discussed that he has chronic decubitus pressure ulcers, one of which was new and present on admission that did not show any signs of acute infection, no puralent drainage, and not yet to the bone with some granulation tissue and skin break down, but that it is unlikely that those wounds are contributing to his initial sepsis presentation. 08/22/2025: Patient seen and examined at bedside, overnight he had some fasiculations of his BL arms and mouth, was given 2 of versed, but low suspicion for seizure activity, rather suspect the fasiculations 2/2 effective hypoglycemia given his tighter blood control. AM labs with low Hgb, 5.5 2 units PRB transfused, follow up post transfusion h and h. holding tube feeds in setting of suspected upper GI bleed. His presser requirements have been lower. his ventilator settings were adjusted so his fio2 30 to 50 %. patient was also noted to have thick secretions so RT did lavage and suctioned patient with some thick and red tinged sputum noted. His antibiotics were narrowed given the speciation and sensitivities from zosyn to cefepime. DOMINGA is 8, compared to prior cefepime dominga <2 04/202508/23/2025 Patient has been off pressors overnight white blood cells 9.6 hemoglobin stable 7.3. Vent settings VT is 490 flow 45 respiratory rate 20 PEEP 5 FiO2 was 30. Patient examined bedside (stable) occasionally making eye contact but still nonverbal, only responsive to pain his chronic sacral ulcers are stable he has continued to have purulent drainage from the PEG tube insertion site. His tube feeds are being resumed as his hemoglobin is stable. Will speak to family today about IVC filter. Will resume Eliquis 2.5 twice daily patient is stable to be downgraded today to floor for management. Exam Vital Signs Temp Pulse Resp BP Pulse Ox O2 Del Method FiO2 98.4 F 69 20 141/79 H 98 Mechanical Ventilation 30 08/23/25 08:00 08/23/25 10:00 08/23/25 06:16 08/23/25 10:00 08/23/25 10:00 08/22/25 04:45 08/23/25 08:00 Narrative Exam General: elderly male, tracheostomy and PEG in place, unresponsive Neuro: spontaneous eye opening, response to painful stimuli, pupils equal and responsive to light. HEENT: NC/AT, MMM, sclera anicteric, trach midline with some scant blood in the tube Cardiovascular: Regular rate and rhythm, no murmurs appreciated Pulmonary: Mechanically ventilated via trach , diminished breath sounds bilaterally, ronchous breath sounds. Abdomen: Soft, nondistended, PEG in place, with puralent drainage expressed. Extremities: 1+ pedal edema b/l, LE cool to touch, nail thickening and black toe nails bilaterally Skin: Warm; chronic sacral ulcers and widespread excoriations of lower extremities, skin break down, Present on admission hole that does not track down to the bone, no puralent matter expressed. (see wound care note for evaluation of wounds. : German catheter in place with mascerated urethral meatus. Objective Labs 09/01/25 04:47 09/01/25 04:47 Labs: Laboratory Results - last 24 hr 08/22/25 08/22/25 08/22/25 06:30 17:27 22:40 WBC RBC Hgb 7.2 L D 7.0 L Hct 21.9 L* 21.9 L* MCV MCH MCHC RDW Std Deviation Plt Count Neut % (Auto) Lymph % (Auto) [place] % (Auto) Eos % (Auto) Baso % (Auto) Neut # (Auto) Lymph # (Auto) [place] # (Auto) Eos # (Auto) Baso # (Auto) Immature Gran # (Auto) Absolute Nucleated RBC Immature Gran % Nucleated RBC % PT INR APTT Sodium Potassium Chloride Carbon Dioxide Anion Gap BUN Creatinine Estim Creat Clear Calc eGFR BUN/Creatinine Ratio Glucose Calculated Osmolality Calcium Corrected Calcium Phosphorus Magnesium Total Bilirubin AST ALT Alkaline Phosphatase Total Protein Albumin Globulin Albumin/Globulin Ratio Blood Type O Positive Antibody Screen NEGATIVE Crossmatch See Detail Blood Bank Wristband ID Yes 08/23/25 04:25 WBC 9.6 RBC 2.73 L Hgb 7.3 L Hct 22.0 L MCV 81 MCH 26.7 MCHC 33.2 RDW Std Deviation 48.8 H Plt Count 336 Neut % (Auto) 78 Lymph % (Auto) 12 Cal[place]oun % (Auto) 4 Eos % (Auto) 6 Baso % (Auto) 0 Neut # (Auto) 7.5 Lymph # (Auto) 1.1 Cal[place]oun # (Auto) 0.4 Eos # (Auto) 0.6 H Baso # (Auto) 0.0 Immature Gran # (Auto) 0.04 H Absolute Nucleated RBC 0.04 H Immature Gran % 0 Nucleated RBC % 0 PT 12.0 INR 1.1 APTT 26.8 Sodium 144 Potassium 4.0 Chloride 108 H Carbon Dioxide 22.4 Anion Gap 14 BUN 37 H Creatinine 0.9 Estim Creat Clear Calc 91.6 eGFR > 60 BUN/Creatinine Ratio 41 H Glucose 98 D Calculated Osmolality 295 Calcium 9.0 Corrected Calcium 9.2 Phosphorus 2.5 Magnesium 2.2 Total Bilirubin 0.7 AST 24 ALT 27 Alkaline Phosphatase 144 H D Total Protein 7.4 Albumin 3.8 Globulin 3.6 H Albumin/Globulin Ratio 1.1 L Blood Type Antibody Screen Crossmatch Blood Bank Wristband ID ABG Interpretation ABG results: 08/19/25 08/19/25 20:08 22:17 ABG pH 7.23 L 7.38 D ABG pCO2 47 36 D ABG pO2 85 140 H D ABG HCO3 20 21 ABG O2 Saturation 95 100 H ABG Base Excess -8 L -4 L Quality Measures Quality Measures sepsis Current suspected stage: ruled out Possible source: pulmonary Blood cultures ordered: yes Antibiotic ordered: Yes Advance care planning discussed with:: spouse and other Assessment & Plan Assessment Current Active Medications: Generic Name Dose Route Start Last Admin Trade Name Freq PRN Reason Stop Dose Admin Acetaminophen 650 mg 08/19/25 15:10 Acetaminophen 325 Mg Tablet PO 09/18/25 15:09 Q6H PRN Fever >100.4 Acetaminophen 650 mg 08/19/25 15:15 Acetaminophen 325 Mg Tablet PO 09/18/25 15:14 Q6H PRN PAIN SCALE 1-3 (mild Hydrocodone Bitart/Acetaminophen 1 tab 08/19/25 15:34 08/19/25 18:10 Hydrocodone/Apap 10/325 Tab GT 08/24/25 15:33 1 tab Q4HR PRN Administration PAIN SCALE 7-10 (Severe Apixaban 2.5 mg 08/20/25 21:00 08/21/25 21:12 Apixaban 2.5 Mg Tablet PO 09/19/25 20:59 2.5 mg BID IMANI Administration Balsam Michael/[place] Oil 0 gm 08/20/25 21:00 08/23/25 08:29 Balsam [place] Oil (Venelex) 60 Gm Tube TOP 09/19/25 20:59 1 applicatio BID IMANI Administration Dextrose 25 ml 08/21/25 00:25 Dextrose 50%-Water Inj 50 Ml Syringe IV 09/20/25 00:24 Q15MIN PRN BG 50-70 responsive npo pt Dextrose 50 ml 08/21/25 00:25 Dextrose 50%-Water Inj 50 Ml Syringe IV 09/20/25 00:24 Q15MIN PRN BG <50 OR BG <70 & pt unresponsive Diphenhydramine HCl 25 mg 08/19/25 17:55 Diphenhydramine Elix 25 Mg/10 Ml Udc GT 09/18/25 17:01 Q4H PRN Allergic Symptoms Gabapentin 600 mg 08/19/25 21:00 08/23/25 08:29 Gabapentin 300 Mg Capsule GT 09/18/25 20:59 600 mg BID IMANI Administration Glucagon 1 mg 08/21/25 00:25 Glucagon Inj 1 Mg Vial IM Q15MIN PRN BG <70, and no IV access Guaifenesin 100 mg 08/22/25 14:00 08/23/25 06:11 Guaifenesin Syrup 200 Mg/10 Ml Udc GT 09/21/25 13:59 100 mg TID IMANI Administration Protocol Hydromorphone HCl 0.5 mg 08/19/25 17:45 Hydromorphone Inj 2 Mg/Ml Vial IVP 08/24/25 17:44 Q6H PRN BREAKTHROUGH Pain 4-10 Cefepime HCl 1 gm/ Sodium 50 mls @ 100 mls/hr 08/22/25 21:00 08/23/25 08:27 Chloride IV 08/29/25 20:59 100 mls/hr Q12HR IMANI Administration Insulin Degludec 10 unit 08/22/25 09:00 08/23/25 09:42 Insulin Degludec 5 Unit/0.05 Ml (Per 5 Units) SC 09/21/25 08:59 Not Given QDAY [facility] Insulin Human Lispro 2 unit 08/22/25 00:00 08/22/25 05:08 Insulin Lispro (Admelog) 1 Unit/0.01 Ml Unit SC 09/21/25 00:00 2 unit On Hold: 08/22/25 08:28 Q6HR IMANI Administration Insulin Human Lispro 0 unit 08/22/25 10:00 08/23/25 09:44 Insulin Lispro (Admelog) 1 Unit/0.01 Ml Unit SC 09/21/25 09:59 Not Given Q4HR IMANI Protocol Ipratropium [place] 0.5 mg 08/19/25 17:04 Ipratropium Rt 0.5 Mg/ 2.5 Ml Nebu INH 09/18/25 17:03 Q4H PRN SHORTNESS OF BREATH OR WHEEZE Midodrine 10 mg 08/19/25 22:00 08/23/25 06:11 Midodrine 5 Mg Tablet GT 09/18/25 21:59 10 mg TID IMANI Administration Multivitamins 1 tab 08/20/25 09:15 08/23/25 08:29 Multivitamins Tablet NG 09/19/25 09:14 1 tab QDAY IMANI Administration Oxycodone/Acetaminophen 1 tab 08/20/25 18:21 Oxycodone/Apap 5/325 Tablet GT 08/24/25 15:33 Q6H PRN AGITATION Pantoprazole Sodium 40 mg 08/22/25 09:00 08/23/25 08:28 Pantoprazole Inj 40 Mg Vial IVP 09/21/25 08:59 40 mg BID IMANI Administration Pharmacy Consult 1 each 08/20/25 10:23 Pharmacy Renal Dose Adjustment 1 Ea XX 09/19/25 10:22 PRN PRN CONSULT Protocol Simethicone 80 mg 08/21/25 21:00 08/23/25 08:29 Simethicone 80 Mg Chew GT 09/20/25 20:59 80 mg BID IMANI Administration Zinc Sulfate 220 mg 08/20/25 09:15 08/23/25 08:29 Zinc Sulfate 220 Mg Capsule NG 09/19/25 09:14 220 mg QDAY IMANI Administration Plan Mr. Sanchez is a 80 year old gentleman with a hx of recurrent renal injury, CVA with chronic trach and peg, chronic german (hx of Pseudamona UTI sensitive to zosyn) who presented from sub acute facility in [place], with reported increased fatigue and lethargy, found to be febrile, admitted to the floor with sepsis pna vs UTI who subsequently coded on 08/19 and had ROSC, who was subsequently admitted to the ICU for distributive shock on mech vent per the trach and pressors. suspected to have upper GI bleed given acute anemia drop. Neuro CVA hypoxic brain injury Chronic encephalopathy Dx opens eyes spontaneously and responds to painful stimuli CV Septic Shock - resolved, off of vasopressor agents Ddx Distributive Dx patient appears euvolemic on exam with mucus membraines moist, and trace edema of the LE. 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 thick secretions suctioned through trach, pneumonia suspected. Rx Daily CBC, cont to treat potential sources of infection with d/c Vanc (08/19- 08/20) and zosyn (08/19- 08/21) narrowed to cefepime 1gm q12hr (renally dosed given ckd despite low cr, bed bound) DOMINGA 08/2025 8, compared to cefepime DOMINGA <2 in 04/2025. Colonized with pseudamonas. continue pressor with levofed (requiring less levofed today). Cardiac arrest w ROSC - resolved Elevated Troponin - peaked and downtrending Ddx: demand ischemia Dx: given trop elevation without st elevations in the setting of septic shock, higher suspicion for sepsis related demand ischemia. Rx: treat underlying sepsis Pericardial Effusion- stable Speeder Worker Dr. Tarnago was consulted, who is unconcerned for a potential tamponade/obstructive physiology, bedside pocus and ct chest redemonstrate the moderate effusion Rx: no intervention indicated at this time, no pericardialcentesis. Rxx: if pt develops obstructive physiology consider bedside pocus to assess for worsening effusion and reconsider pericardialcentesis Pulm Acute on Chronic hypoxic respiratory Failure, 2/2 Health Care Associated PNA, Colonized with Pseudomonas Chronic Atelectesis Chronic Trach Ddx: Worsening PNA vs respiratory compensation for metabolic acidosis (improved) vs worsening pleural effusions Dx patient has chronic trach likely colonized with pseudomonas, his Chest Ct when compared to prior has minimal change, continues to have chronic atelectesis at the bases. Rx stable, cont broad spectrum antibiotics with d/c Vanc (08/19- 08/20) and zosyn (08/19- 08/21) narrowed to cefepime 1gm q12hr (renally dosed given ckd despite low cr, bed bound), continue mechanical ventilation (increased FiO2 50 % from 30%) given blood loss anemia in setting of suspected upper GI bleed, and hypoxia from lower circulating hgb. guafenicin 100 mg TID given thick secretions. Small Bilateral Pleural Effusions - stable Rx no intervention indicated at this time. GI Hx of Esophogeal Ulcerations Hx of Gastritis Hx of Duodenal Ulcers. Ddx: Suspect upper GI bleed given ICU stress induced ulcers and hx of prior ulcers Dx: patient has been in the ICU since 08/19, he has been on gi ppx, but suspect that his prior ulcers have been actively oozing for the past several days as his hgb has been slowly down-trending so slow bleed rather than mandie bleeding. Rx: Protonix 40 BID, 2 Units PRBC, follow up post transfusion h and h, hold apixaban in setting of acute blood loss anemia. Rxx: if post transfusion h and h does not improve, consider GI consult, and possible intervention given suspicion for bleeding ulcerations in the stomach vs esophagus. 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 no erythema at the base Rx CTM to worsening puralence, zosyn (08/19-08/21) was narrowed to cefepime 08/21- Loose stool Dx in setting of decubitus ulcers and minimizing sources of infection and loose stools, continues to have BMs, rectal tube flushed. Rx rectal tube placed 08/20 Mild Hepatitis - resolved Ddx sepsis related hepatitis Rx daily cmp, monitor for worsening abdominal pain Renal MARGARETTE on CKD - improving Cr 0.9 BUN 37 Decreased UOP Ddx prerenal vs intrarenal Dx has had recurrent kidney injury in the past, 2/2 sepsis, suspect some possible renal scaring from repeated insult, patient has been sucessfully resusitated and so renal perfusion has been restored, maps >65.renal scarring on US. he has had increased UOP for the past 24hrs to 45-60cc/hr, compared to 30 cc/hr yesterday. 08/23 UOP 1580ml/24hrs Rx ctm urine output, renally dose cefepime for infection. avoid nephrotoxic agents. Lactic Acidosis- resolved ENDO Insulin dependent type 2 DM - poorly controlled Dx: A1c 11, and on prior admission in 04/30 a1c of 10, unclear why patient continues to have poor dm control despite being peg'd and at a sub acute facility in [place]. BS have been stable in the 150s throughout the day. Rx: 10 units degludec qhs, q4hr blood sugar checks with step 3 SSI, in setting of NPO given suspician of rosangela. Chronic German Urine Colonization UTI Ddx possible catheter associated UTI vs pyuria Dx UA with LE + and WBC and bacteria, unable to assess for dysuria given gcs. Urine cx with Burkholderia cepacia, resistant to ertapenem and zosyn, suspect that patient is colonized, and that his active infection is not due to this bacteria. clinically he continues to improve, with reduced pressor requirements. Rx zosyn, continue to monitor for clinical improvement in his status, if spiking fevers and wbc climbing, will consider broadening abx. HEME Acute blood loss anemia - stabilizing Ddx: suspect upper GI bleed given hx of prior upper gi bleeding 2/2 ulcerations. Dx: Rx: follow up post transfusion h and h, given 2 units prbc today for hgb 5.5. Hgb stabilized 7.2-->7.0-->7.3 History of Multiple DVTs Dx: Known bilateral femoral DVTs (05/2025) on Eliquis; failed to place IVC in the past hospitalization d/t right and left common femoral veins demonstrate occlusive thrombus precluding successful percutaneous access Rx: Resuming Apixaban 2.5 BID as hgb has recently stabilized rrx: monitor for bleeding. ID 1/2 GNR Blood Cx Ddx: possible contaminant vs gnr from uti (ie pseudomonas vs klebsiella) leukocytosis is very elevated at 24. patient is afebrile but presented with fever. Rx: follow up blood culture speciation, per lab speciation should result 08/23 at 7 am high suspician for contaminiant given it is growing 2bacteria. Skin multiple decubitus sacral ulcers Ddx bed bound vs shearing forces from bed transfers Dx wound care consulted for staging of new vs chronic lesions no puralent drainage noted on exam. Rx multivitiamins, wound care consulted, frequent repositioning, Rxx, poor wound healing due to poorly controlled DM, aim for tighter blood glucose control. Dispo:Admitted to ICU for septic shock continues on levofed, zosyn narrowed to to cefepime, GI bleed suspected,2 units prbc transfused. Diet: can resume tube feeds Lines: PIV infiltrated, and L fem central line VTE ppx: Resumed elequis 2.5 bid as Hgb has been stable GI ppx: Protonix 40 IV BID Bowel Reg: hold for loose stools Code status: FULL Case disclosed with my senior resident Dr. Edwards and my Attending Dr. Raymond Weller MD PGY1 Attending Provider Attestation/Addendum Patient seen and examined with above resident, Nolan Weller MD. I agree with the findings, assessment, and plan of care as document except for any differences below. Patient remains hemodynamically stable with adequate gas exchange on baseline mechanical ventilation settings. Patient will continue course of antibiotics, localized treatment for multiple wounds, close monitoring for potential recurrence of GI bleed. Patient and family updated on plan of care and remained agreeable. Patient will be transferred to telemetry garcia for ongoing monitoring by medicine and optimization prior to discharge to [facility]ci or LTAC. Total critical care time: I personally spent 35 minutes for review of physiologic parameters, directing plan of care throughout today, coordination of care with medicine, and counseling patient's family at bedside. This is exclusive of time spent teaching and staff performing separate billable procedures. Patient remains at significant risk for further morbidity and mortality warranting close monitoring care only available in the ICU. Critical care services required for GI bleed secondary to esophagitis, septic shock, MARGARETTE on CKD, and acute on chronic hypoxic respiratory failure.
--- NOTE | 2025-08-23 15:08 | ESPR_ITS ---
<Statement entered by Brian Man MD - 08/23/25 16:20> ICU downgrade. Patient initially admitted for sepsis secondary to pneumonia with pleural effusion and pericardial effusions. Same night patient coded (PEA) likely secondary to septic shock causing cardiotoxicity but ROSC was obtained and patient was subsequently upgraded to the ICU. Please see event note for further details. Patient was eventually weaned off of pressors yesterday in afternoon/early evening. During ICU course, blood cultures grew Enterobacter cloacae and Proteus mirabilis in 1 of 2 bottles, urine culture positive for Burkholderia cepacia, and trach cultures growing Pseudomonas for which patient has been transition from Zosyn to cefepime since 08/22. Additionally, hemoglobin noted to drop from 7.0 to due to this, patient's Eliquis was held. 5.6 with repeat being 5.5 and was transfused 2 units PRBC. Tube feedings were also held but have since been resumed as hemoglobin has been stable and downgraded to floors for further management. Eliquis currently plan to be restarted tonight and will continue cefepime. ----- Note reviewed and agree with care plan as documented. Please refer to the note below for further details. Plan discussed with attending physician Dr. Mary Kay Man MD PGY-2 Internal Medicine Documentation for date of: 08/23/25 Subjective Subjective Interval history: Mr. Kwadwo Sanchez admitted as a downgrade from ICU, previous admission 08/19 PM but then a code blue was called shortly overnight and upgraded to ICU s/p ROSC. Mr. Sanchez was taken off vasopressors. Initially on admission to medicine, XR Chest was significant for bilateral pneumonia w/ suspicion for aspiration. Echocardiogram (+) for pericardial effusion w/out tamponade. EKG Sinus tachycardia. 08/19 Tracheal swab significant for growth of Pseudomonas aeruginosa. 08/19 Blood 1/2 tubes for Proteus mirabilis and Enterobacter cloacae. Patient was started on vancomycin + zosyn, then transitioned to cefepime 1g q12h 08/22 ->. S/p admission to ICU for management of code blue and hypovolemic shock, patient was worked up for oliguria; a renal US was done which revealed moderate renal scarring without hydronephrosis. ECHO done, cardiology consulted for concern of pericardial effusion up to ~33mm, noted to not be drainable, nonoperative management. 08/22 AM labs revealed Hgb 5.5, given 2U PRBC to which Hgb improved to 7.2 s/p transfusion. RT lavage improved thick secretions. DC'ed pressors at night. 08/23 AM - WBC 9.6 Hgb 7.3. Tube feeds resumed. Eliquis Resumed This afternoon on admission to medicine Mr. Sanchez has improved in mentation; previously unarousable to painful stimulation now opens his eyes spontaneously and improved strength on upper extremities(slight hand squeezes upon request). Otherwise bedbound with trach and peg in place. Exam Vital Signs Temp Pulse Resp BP Pulse Ox O2 Del Method FiO2 98.4 F 66 20 136/81 H 99 Mechanical Ventilation 30 08/23/25 08:00 08/23/25 14:19 08/23/25 06:16 08/23/25 14:19 08/23/25 14:19 08/22/25 04:45 08/23/25 14:19 Narrative Exam General: GCS 11 = E(4) V(1) M(6) Trach PEG. HEENT: Tracheostomy in place with appropriate ventilation Cardiovascular: regular rate and rhythm, S1/S2 present, no murmurs appreciated Pulmonary: Tracheostomy w/machine ventilation; lungs clear Abdominal: soft, nontender; PEG tube in place Musculoskeletal: no peripheral edema Skin: Warm, well-perfused. Bilateral distal toe ecchymoses, stable since admission 08/19 Objective Labs 08/24/25 04:28 08/24/25 04:28 Labs: Laboratory Results - last 24 hr 08/22/25 08/22/25 08/22/25 06:30 17:27 22:40 WBC RBC Hgb 7.2 L D 7.0 L Hct 21.9 L* 21.9 L* MCV MCH MCHC RDW Std Deviation Plt Count Neut % (Auto) Lymph % (Auto) [place] % (Auto) Eos % (Auto) Baso % (Auto) Neut # (Auto) Lymph # (Auto) [place] # (Auto) Eos # (Auto) Baso # (Auto) Immature Gran # (Auto) Absolute Nucleated RBC Immature Gran % Nucleated RBC % PT INR APTT Sodium Potassium Chloride Carbon Dioxide Anion Gap BUN Creatinine Estim Creat Clear Calc eGFR BUN/Creatinine Ratio Glucose Calculated Osmolality Calcium Corrected Calcium Phosphorus Magnesium Total Bilirubin AST ALT Alkaline Phosphatase Total Protein Albumin Globulin Albumin/Globulin Ratio Blood Type O Positive Antibody Screen NEGATIVE Crossmatch See Detail Blood Bank Wristband ID Yes 08/23/25 04:25 WBC 9.6 RBC 2.73 L Hgb 7.3 L Hct 22.0 L MCV 81 MCH 26.7 MCHC 33.2 RDW Std Deviation 48.8 H Plt Count 336 Neut % (Auto) 78 Lymph % (Auto) 12 [place] % (Auto) 4 Eos % (Auto) 6 Baso % (Auto) 0 Neut # (Auto) 7.5 Lymph # (Auto) 1.1 [place] # (Auto) 0.4 Eos # (Auto) 0.6 H Baso # (Auto) 0.0 Immature Gran # (Auto) 0.04 H Absolute Nucleated RBC 0.04 H Immature Gran % 0 Nucleated RBC % 0 PT 12.0 INR 1.1 APTT 26.8 Sodium 144 Potassium 4.0 Chloride 108 H Carbon Dioxide 22.4 Anion Gap 14 BUN 37 H Creatinine 0.9 Estim Creat Clear Calc 91.6 eGFR > 60 BUN/Creatinine Ratio 41 H Glucose 98 D Calculated Osmolality 295 Calcium 9.0 Corrected Calcium 9.2 Phosphorus 2.5 Magnesium 2.2 Total Bilirubin 0.7 AST 24 ALT 27 Alkaline Phosphatase 144 H D Total Protein 7.4 Albumin 3.8 Globulin 3.6 H Albumin/Globulin Ratio 1.1 L Blood Type Antibody Screen Crossmatch Blood Bank Wristband ID ABG Interpretation ABG results: 08/19/25 08/19/25 20:08 22:17 ABG pH 7.23 L 7.38 D ABG pCO2 47 36 D ABG pO2 85 140 H D ABG HCO3 20 21 ABG O2 Saturation 95 100 H ABG Base Excess -8 L -4 L Quality Measures Quality Measures sepsis Current suspected stage: sepsis Possible source: pulmonary Blood cultures ordered: yes Antibiotic ordered: Yes Advance care planning discussed with:: patient Assessment & Plan Assessment Current Active Medications: Generic Name Dose Route Start Last Admin Trade Name Freq PRN Reason Stop Dose Admin Acetaminophen 650 mg 08/19/25 15:10 Acetaminophen 325 Mg Tablet PO 09/18/25 15:09 Q6H PRN Fever >100.4 Acetaminophen 650 mg 08/19/25 15:15 Acetaminophen 325 Mg Tablet PO 09/18/25 15:14 Q6H PRN PAIN SCALE 1-3 (mild Hydrocodone Bitart/Acetaminophen 1 tab 08/19/25 15:34 08/19/25 18:10 Hydrocodone/Apap 10/325 Tab GT 08/24/25 15:33 1 tab Q4HR PRN Administration PAIN SCALE 7-10 (Severe Apixaban 2.5 mg 08/20/25 21:00 08/21/25 21:12 Apixaban 2.5 Mg Tablet PO 09/19/25 20:59 2.5 mg BID IMANI Administration Balsam [place] Oil 0 gm 08/20/25 21:00 08/23/25 08:29 Balsam [place] Oil (Venelex) 60 Gm Tube TOP 09/19/25 20:59 1 applicatio BID IMANI Administration Dextrose 25 ml 08/21/25 00:25 Dextrose 50%-Water Inj 50 Ml Syringe IV 09/20/25 00:24 Q15MIN PRN BG 50-70 responsive npo pt Dextrose 50 ml 08/21/25 00:25 Dextrose 50%-Water Inj 50 Ml Syringe IV 09/20/25 00:24 Q15MIN PRN BG <50 OR BG <70 & pt unresponsive Diphenhydramine HCl 25 mg 08/19/25 17:55 Diphenhydramine Elix 25 Mg/10 Ml Udc GT 09/18/25 17:01 Q4H PRN Allergic Symptoms Gabapentin 600 mg 08/19/25 21:00 08/23/25 08:29 Gabapentin 300 Mg Capsule GT 09/18/25 20:59 600 mg BID IMANI Administration Glucagon 1 mg 08/21/25 00:25 Glucagon Inj 1 Mg Vial IM Q15MIN PRN BG <70, and no IV access Guaifenesin 100 mg 08/22/25 14:00 08/23/25 13:48 Guaifenesin Syrup 200 Mg/10 Ml Udc GT 09/21/25 13:59 100 mg TID IMANI Administration Protocol Hydromorphone HCl 0.5 mg 08/19/25 17:45 Hydromorphone Inj 2 Mg/Ml Vial IVP 08/24/25 17:44 Q6H PRN BREAKTHROUGH Pain 4-10 Cefepime HCl 1 gm/ Sodium 50 mls @ 100 mls/hr 08/22/25 21:00 08/23/25 08:27 Chloride IV 08/29/25 20:59 100 mls/hr Q12HR IMANI Administration Insulin Degludec 10 unit 08/22/25 09:00 08/23/25 09:42 Insulin Degludec 5 Unit/0.05 Ml (Per 5 Units) SC 09/21/25 08:59 Not Given QDAY IMANI Insulin Human Lispro 2 unit 08/22/25 00:00 08/22/25 05:08 Insulin Lispro (Admelog) 1 Unit/0.01 Ml Unit SC 09/21/25 00:00 2 unit On Hold: 08/22/25 08:28 Q6HR IMANI Administration Insulin Human Lispro 0 unit 08/22/25 10:00 08/23/25 14:04 Insulin Lispro (Admelog) 1 Unit/0.01 Ml Unit SC 09/21/25 09:59 Not Given Q4HR [facility] Protocol Ipratropium [place] 0.5 mg 08/19/25 17:04 Ipratropium Rt 0.5 Mg/ 2.5 Ml Nebu INH 09/18/25 17:03 Q4H PRN SHORTNESS OF BREATH OR WHEEZE Midodrine 10 mg 08/19/25 22:00 08/23/25 13:48 Midodrine 5 Mg Tablet GT 09/18/25 21:59 10 mg TID IMANI Administration Multivitamins 1 tab 08/20/25 09:15 08/23/25 08:29 Multivitamins Tablet NG 09/19/25 09:14 1 tab QDAY IMANI Administration Oxycodone/Acetaminophen 1 tab 08/20/25 18:21 Oxycodone/Apap 5/325 Tablet GT 08/24/25 15:33 Q6H PRN AGITATION Pantoprazole Sodium 40 mg 08/22/25 09:00 08/23/25 08:28 Pantoprazole Inj 40 Mg Vial IVP 09/21/25 08:59 40 mg BID IMANI Administration Pharmacy Consult 1 each 08/20/25 10:23 Pharmacy Renal Dose Adjustment 1 Ea XX 09/19/25 10:22 PRN PRN CONSULT Protocol Simethicone 80 mg 08/21/25 21:00 08/23/25 08:29 Simethicone 80 Mg Chew GT 09/20/25 20:59 80 mg BID IMANI Administration Zinc Sulfate 220 mg 08/20/25 09:15 08/23/25 08:29 Zinc Sulfate 220 Mg Capsule NG 09/19/25 09:14 220 mg QDAY IMANI Administration Plan #Pneumonia #Pleural Effusions #Sepsis Tracheostomy dependent Hx of admissions for pneumonia, pseudomonas + Fever, Leukocytosis Differential diagnosis = ventilator-associated pneumonias vs community-acquired pneumonia vs other CT Chest 08/19 Bilateral Pleural Effusions s/p code blue --> ICU admission for vasopressor support and transfusion --> back to medicine for further management 08/19 09/07 Blood cultures Enterobacter cloacae, Proteus mirabilis -Possible contamination, to follow up with lab 08/19 sputum 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, sepsis due to this organism unlikely given clinical improvement on zosyn that has been narrowed down to cefepime -Clinically monitor #Pericardial Effusion #Elevated troponin Pericardial Effusion 33mm found 08/19 CT Chest ECHO 08/19 EF ~ 40-50% Troponin 08/19 .128 -> 0.79 -> 0.464 most likely elevated due to heart strain in the setting of hypovolemic shock 2/2 sepsis; coupled with pericardial effusion w/out circulatory compromise/obstruction -per Cardiology: Nonoperative management #Tracheostomy #Respiratory Failure Tracheostomy [place] [address] 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 Sanchez was transferred to [place] to get IVC filter but it was never done -To follow up again on IVC filter placement -DVT prophylaxis = Eliquis 2.5 PO BID(peg tube) #HTN Admission BP 99/64 Fluid bolus given in ID -Holding home antihypertensives in the setting of hypovolemia #T2DM -ISS Degludec 10U QDay Lispro 2 U SC q6H Sugar Checks Q4Hr #Sacral Ulcer Wound(s) Hx of sacral ulcer wounds -Wound nursing management #Hyperlipidemia -Restarted Atorvastatin 20mg q24h s/p resolution of elevated LFT's 2/2 hypovolemic shock, sepsis #Allergies Hx of angioedema w/ NYLA, ARB-Angiotensin receptor antagonists Hx of hives, itching, rash - heat vs other -Avoid use for management of BP medication #Neuropathy Hx of bilateral neuropathy -Restarted home Gabapentin 600mg BID #Constipation -Restarted home dose of Lactulose 10gm/15mL q24 -Restarted home regimen Milk of Magnesia 400mg/5mL - give if no BM for 2 days #History of CVA Tracheostomy, PEG tube dependence Quadriplegic Last documented event of stroke = 08/19 CT Head no evidence of hemorrhagic stroke -Continued management of above conditions with corresponding therapies/medications -No Hospital management: Disposition: Tele s/p resolution of vasopressor requirements Fluids: none Diet: PEG tube feeds Lines: PIV DVT prophylaxis: Eliquis CODE STATUS: full code Patient seen and discussed with attending physician Dr. Zeyad Muñiz and senior resident Dr. Brian Gross MD PGY-1 Attending Provider Attestation/Addendum I have examined the patient, reviewed labs and imaging findings, discussed the case with the resident(s), and reviewed entered orders. I agree with the plan of care as outlined in this note. Dr. Mary Kay MD
--- NOTE | 2025-08-23 15:16 | ESPR_ITS ---
<Statement entered by Jamie Tarango MD - 08/25/25 18:21> I personally evaluated examined this patient intensive care unit the patient maintaining sinus rhythm so far Levophed is stopped now blood pressure is holding well renal function improved Eliquis was resumed for recurrent DVT Patient is recommended continue medical management patient's condition appears to be back to his baseline hemodynamically stable no need for any active dressing of pericardial effusion at this point as it is only small to moderate Documentation for date of: 08/23/25 Subjective Subjective Interval history: 08/21: Patient examined at bedside in ICU. Overnight event on telemetry patient became tachycardic rate around 150. Heart rate sustained for about 20 minutes. Blood pressure resulted in hypotension requiring increase in Levophed. Today patient is in normal sinus rhythm heart rate 80?90. Attempting to wean Levophed today. Urine culture positive for Burkholderia species, blood cultures negative, ET secretions grew GNR. Continue broad-spectrum antibiotic therapy. 08/22: Patient seen at bedside. Levophed continues to be weaned with BP today around 83/56. Telemetry reviewed, he remains in normal sinus rhythm with rate 60-70. Hb dropped to 5.5. PEG tube feeds were held due to concern for GI bleed. Cr downtrended to 1.1. Patient is receiving 2 units prbc. Antibiotics narrowed to cefepime. For septic shock which had caused demand ischemia NSTEMI II. Urine output +1031 in past 24hrs. 08/23: Today blood pressure improved 131/73 and Levophed was weaned and stopped. Imaging reviewed remains in normal sinus rhythm heart rate 65?70. Hemoglobin improved after RBC yesterday to 7.3. Creatinine 0.9. Eliquis 2.5 twice daily resumed as treatment of recurrent DVTs. Appears that IVC filter was placed on 05/14/25. Repeat imaging during this hospitalization has not noted placement of the IVC filter. Exam Vital Signs Temp Pulse Resp BP Pulse Ox O2 Del Method FiO2 98.4 F 66 20 136/81 H 99 Mechanical Ventilation 30 08/23/25 08:00 08/23/25 14:19 08/23/25 06:16 08/23/25 14:19 08/23/25 14:19 08/22/25 04:45 08/23/25 14:19 Narrative Exam General: elderly male, tracheostomy and PEG in place, unresponsive Neuro: spontaneous eye opening, response to painful stimuli, pupils equal and responsive to light. HEENT: NC/AT, MMM, sclera anicteric, trach midline with some scant blood in the tube Cardiovascular: Regular rate and rhythm, no murmurs appreciated Pulmonary: Mechanically ventilated via trach , diminished breath sounds bilaterally, ronchous breath sounds. Abdomen: Soft, nondistended, PEG in place, with puralent drainage expressed. Extremities: 1+ pedal edema b/l, LE cool to touch, nail thickening and black toe nails bilaterally Skin: Warm; chronic sacral ulcers and widespread excoriations of lower extremities, skin break down, Present on admission hole that does not track down to the bone, no puralent matter expressed. (see wound care note for evaluation of wounds. : German catheter in place with mascerated urethral meatus. Objective Labs 08/23/25 04:25 08/23/25 04:25 Labs: Laboratory Results - last 24 hr 08/22/25 08/22/25 08/22/25 06:30 17:27 22:40 WBC RBC Hgb 7.2 L D 7.0 L Hct 21.9 L* 21.9 L* MCV MCH MCHC RDW Std Deviation Plt Count Neut % (Auto) Lymph % (Auto) [place] % (Auto) Eos % (Auto) Baso % (Auto) Neut # (Auto) Lymph # (Auto) [place] # (Auto) Eos # (Auto) Baso # (Auto) Immature Gran # (Auto) Absolute Nucleated RBC Immature Gran % Nucleated RBC % PT INR APTT Sodium Potassium Chloride Carbon Dioxide Anion Gap BUN Creatinine Estim Creat Clear Calc eGFR BUN/Creatinine Ratio Glucose Calculated Osmolality Calcium Corrected Calcium Phosphorus Magnesium Total Bilirubin AST ALT Alkaline Phosphatase Total Protein Albumin Globulin Albumin/Globulin Ratio Blood Type O Positive Antibody Screen NEGATIVE Crossmatch See Detail Blood Bank Wristband ID Yes 08/23/25 04:25 WBC 9.6 RBC 2.73 L Hgb 7.3 L Hct 22.0 L MCV 81 MCH 26.7 MCHC 33.2 RDW Std Deviation 48.8 H Plt Count 336 Neut % (Auto) 78 Lymph % (Auto) 12 [place] % (Auto) 4 Eos % (Auto) 6 Baso % (Auto) 0 Neut # (Auto) 7.5 Lymph # (Auto) 1.1 [place] # (Auto) 0.4 Eos # (Auto) 0.6 H Baso # (Auto) 0.0 Immature Gran # (Auto) 0.04 H Absolute Nucleated RBC 0.04 H Immature Gran % 0 Nucleated RBC % 0 PT 12.0 INR 1.1 APTT 26.8 Sodium 144 Potassium 4.0 Chloride 108 H Carbon Dioxide 22.4 Anion Gap 14 BUN 37 H Creatinine 0.9 Estim Creat Clear Calc 91.6 eGFR > 60 BUN/Creatinine Ratio 41 H Glucose 98 D Calculated Osmolality 295 Calcium 9.0 Corrected Calcium 9.2 Phosphorus 2.5 Magnesium 2.2 Total Bilirubin 0.7 AST 24 ALT 27 Alkaline Phosphatase 144 H D Total Protein 7.4 Albumin 3.8 Globulin 3.6 H Albumin/Globulin Ratio 1.1 L Blood Type Antibody Screen Crossmatch Blood Bank Wristband ID ABG Interpretation ABG results: 08/19/25 08/19/25 20:08 22:17 ABG pH 7.23 L 7.38 D ABG pCO2 47 36 D ABG pO2 85 140 H D ABG HCO3 20 21 ABG O2 Saturation 95 100 H ABG Base Excess -8 L -4 L Quality Measures Quality Measures sepsis Current suspected stage: sepsis Possible source: pulmonary Blood cultures ordered: yes Antibiotic ordered: Yes Advance care planning discussed with:: child Assessment & Plan Assessment Current Active Medications: Generic Name Dose Route Start Last Admin Trade Name Freq PRN Reason Stop Dose Admin Acetaminophen 650 mg 08/19/25 15:10 Acetaminophen 325 Mg Tablet PO 09/18/25 15:09 Q6H PRN Fever >100.4 Acetaminophen 650 mg 08/19/25 15:15 Acetaminophen 325 Mg Tablet PO 09/18/25 15:14 Q6H PRN PAIN SCALE 1-3 (mild Hydrocodone Bitart/Acetaminophen 1 tab 08/19/25 15:34 08/19/25 18:10 Hydrocodone/Apap 10/325 Tab GT 08/24/25 15:33 1 tab Q4HR PRN Administration PAIN SCALE 7-10 (Severe Apixaban 2.5 mg 08/20/25 21:00 08/21/25 21:12 Apixaban 2.5 Mg Tablet PO 09/19/25 20:59 2.5 mg BID IMANI Administration Balsam [place] Oil 0 gm 08/20/25 21:00 08/23/25 08:29 Balsam [place] Oil (Venelex) 60 Gm Tube TOP 09/19/25 20:59 1 applicatio BID IMANI Administration Dextrose 25 ml 08/21/25 00:25 Dextrose 50%-Water Inj 50 Ml Syringe IV 09/20/25 00:24 Q15MIN PRN BG 50-70 responsive npo pt Dextrose 50 ml 08/21/25 00:25 Dextrose 50%-Water Inj 50 Ml Syringe IV 09/20/25 00:24 Q15MIN PRN BG <50 OR BG <70 & pt unresponsive Diphenhydramine HCl 25 mg 08/19/25 17:55 Diphenhydramine Elix 25 Mg/10 Ml Udc GT 09/18/25 17:01 Q4H PRN Allergic Symptoms Gabapentin 600 mg 08/19/25 21:00 08/23/25 08:29 Gabapentin 300 Mg Capsule GT 09/18/25 20:59 600 mg BID IMANI Administration Glucagon 1 mg 08/21/25 00:25 Glucagon Inj 1 Mg Vial IM Q15MIN PRN BG <70, and no IV access Guaifenesin 100 mg 08/22/25 14:00 08/23/25 13:48 Guaifenesin Syrup 200 Mg/10 Ml c GT 09/21/25 13:59 100 mg TID IMANI Administration Protocol Hydromorphone HCl 0.5 mg 08/19/25 17:45 Hydromorphone Inj 2 Mg/Ml Vial IVP 08/24/25 17:44 Q6H PRN BREAKTHROUGH Pain 4-10 Cefepime HCl 1 gm/ Sodium 50 mls @ 100 mls/hr 08/22/25 21:00 08/23/25 08:27 Chloride IV 08/29/25 20:59 100 mls/hr Q12HR IMANI Administration Insulin Degludec 10 unit 08/22/25 09:00 08/23/25 09:42 Insulin Degludec 5 Unit/0.05 Ml (Per 5 Units) SC 09/21/25 08:59 Not Given QDAY [facility] Insulin Human Lispro 2 unit 08/22/25 00:00 08/22/25 05:08 Insulin Lispro (Admelog) 1 Unit/0.01 Ml Unit SC 09/21/25 00:00 2 unit On Hold: 08/22/25 08:28 Q6HR IMANI Administration Insulin Human Lispro 0 unit 08/22/25 10:00 08/23/25 14:04 Insulin Lispro (Admelog) 1 Unit/0.01 Ml Unit SC 09/21/25 09:59 Not Given Q4HR [facility] Protocol Ipratropium [place] 0.5 mg 08/19/25 17:04 Ipratropium Rt 0.5 Mg/ 2.5 Ml Nebu INH 09/18/25 17:03 Q4H PRN SHORTNESS OF BREATH OR WHEEZE Midodrine 10 mg 08/19/25 22:00 08/23/25 13:48 Midodrine 5 Mg Tablet GT 09/18/25 21:59 10 mg TID IMANI Administration Multivitamins 1 tab 08/20/25 09:15 08/23/25 08:29 Multivitamins Tablet NG 09/19/25 09:14 1 tab QDAY IMANI Administration Oxycodone/Acetaminophen 1 tab 08/20/25 18:21 Oxycodone/Apap 5/325 Tablet GT 08/24/25 15:33 Q6H PRN AGITATION Pantoprazole Sodium 40 mg 08/22/25 09:00 08/23/25 08:28 Pantoprazole Inj 40 Mg Vial IVP 09/21/25 08:59 40 mg BID IMANI Administration Pharmacy Consult 1 each 08/20/25 10:23 Pharmacy Renal Dose Adjustment 1 Ea XX 09/19/25 10:22 PRN PRN CONSULT Protocol Simethicone 80 mg 08/21/25 21:00 08/23/25 08:29 Simethicone 80 Mg Chew GT 09/20/25 20:59 80 mg BID IMANI Administration Zinc Sulfate 220 mg 08/20/25 09:15 08/23/25 08:29 Zinc Sulfate 220 Mg Capsule NG 09/19/25 09:14 220 mg QDAY IMANI Administration Plan Mr. Sanchez is a 80 year old gentleman with a hx of recurrent renal injury, CVA with chronic trach and peg, chronic german (hx of Pseudamona UTI sensitive to zosyn) who presented from sub acute facility in [place], with reported increased fatigue and lethargy, found to be febrile, admitted to the floor with sepsis pna vs UTI who subsequently coded on 08/19 and had ROSC, who was subsequently admitted to the ICU for distributive shock on mech vent per the trach and pressors. #Moderate pericardial effusion. No evidence of cardiac tamponade. #Left side pneumonia and pleural effusion with respiratory failure. #Status post tracheostomy and PEG tube placement. 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 #Status post PEA cardiopulmonary arrest secondary to septic shock, sepsis. #Recurrent DVT Continue broad-spectrum antibiotics for NSTEMI type II, demand ischemia. Most likely in setting of distributive shock (septic shock). Low concern for cardiogenic shock--Echo completed 08/19 showing normal LV size, EF 40-50%. Moderate pericardial effusion, no tamponade. Adequate contractility. From cardiac point of view, no need for any pericardiocentesis. There is no evidence of echocardiogram signs of tamponade or clinical tamponade. Continue antibiotics. Resume eliquis 2.5mg BID. Appears that IVC filter was placed on 05/14/25. Repeat imaging during this hospitalization has not noted placement of the IVC filter. Primary care team to manage above conditions and ongoing care needs. The patient's management plan was discussed with my attending physician Dr. Tarango. Vicky Betancoutr, PGY-2
--- NOTE | 2025-08-23 15:41 | PC.SS ---
Update: Patient Trach/PEG. Feedings on hold. Pressors discontinued. Receiving IV antibiotics. Afebrile. Wound care consulting. Downgrade from ICU 08-23-25.
[2025-08-23] MEDS: APIXABAN 2.5 MG TABLET PO (21:38)
[2025-08-23] MEDS: DEXTROSE 50%-WATER INJ 50 ML SYRINGE 25 ML IV (21:46)
[2025-08-24] VITALS (34 sets, daily range): BP systolic 107–146; BP diastolic 64–90; PULSE 60–80; RESP 20–21; TEMP 36.2–36.7; O2SAT 95–99; BMI 32.0
[2025-08-24 04:48] LABS: Basophils # (Auto) 0.0 Thou/mm3 (0.0-0.2); Basophils % (Auto) 0 % (0-2.5); Eosinophils # (Auto) 0.6 Thou/mm3 (0.0-0.5); Eosinophils % (Auto) 7 % (0-10); Hematocrit 25.4 % (41.0-53.0); Immature Granulocytes Auto 0.04 Thou/mm3 (0.00-0.00); Lymphocytes # (Auto) 1.3 Thou/mm3 (1.0-4.8); Lymphocytes % (Auto) 16 % (10-50); Mean Corpuscular HGB Conc 31.9 g/dl (31.0-37.0); Mean Corpuscular Hemoglobin 26.0 pg (25.0-35.0); Mean Corpuscular Volume 82 fL (80-100); Monocytes # (Auto) 0.4 Thou/mm3 (0.0-0.8); Monocytes % (Auto) 5 % (0-12); Neutrophils # (Auto) 5.9 Thou/mm3 (1.8-7.7); Neutrophils % (Auto) 72 % (37-80); Nucleated Red Blood Cell # 0.04 Thou/mm3 (0.00-0.00); Nucleated Red Blood Cell % 1 /100 WBC (0); Platelet Count 366 Thou/mm3 (140-440); RDW Standard Deviation 50.5 fL (35.1-43.9); Red Blood Count 3.11 Miln/mm3 (4.50-5.90); White Blood Count 8.2 Thou/mm3 (3.8-10.6)
[2025-08-24 04:49] LABS: Hemoglobin 8.1 g/dL (13.5-16.0)
[2025-08-24 05:14] LABS: Alanine Aminotransferase 26 U/L (10-49); Albumin, Serum 3.5 gm/dL (3.4-4.8); Albumin/Globulin Ratio 1.0 (1.2-2.2); Alkaline Phosphatase 148 U/L (46-116); Anion Gap 12 (7-16); Aspartate Amino Transferase 18 U/L (0-34); BUN/Creatinine Ratio 40 Ratio (12-20); Bilirubin,Total 0.8 mg/dL (0.3-1.2); Blood Urea Nitrogen 32 mg/dL (9-23); Calcium 8.8 mg/dL (8.3-10.6); Calcium (Corrected) 9.2 mg/dL (8.5-10.1); Carbon Dioxide 22.8 mMol/L (20.0-31.0); Chloride 111 mMol/L (98-107); Creatinine (Component) 0.8 mg/dL (0.6-1.3); Estimated Creatinine Clearance 101.9 mL/min (>60); Globulin 3.5 gm/dL (2.3-3.5); Glucose 98 mg/dL (74-106); Magnesium 2.3 mg/dL (1.6-2.6); Osmolality,Calculated 297 (275-295); Phosphorous 2.7 mg/dL (2.4-5.1); Potassium 3.9 mMol/L (3.4-5.1); Sodium 146 mMol/L (136-145); Total Protein 7.0 gm/dL (5.7-8.2); eGFR > 60 See Note
[2025-08-24] MEDS: guaiFENesin SYRUP 200 MG/10 ML UDC 100 MG GT ×3 (05:27→21:00)
[2025-08-24 07:45] LABS: Antithrombin III, Activity 123 % normal (80-135); Antithrombin III, Antigen 119 % normal (80-120); Hexagonal Phase Confirm WEAKLY POSITIVE (NEGATIVE); PTT-LA Screen 43 seconds (< OR = 40); Protein C Antigen, Total* 95 % normal (70-140); Protein S Antigen, Total* 135 % normal (70-140); Thrombin Clotting Time 21 sec (13-19); dRVVT Confirm NEGATIVE (NEGATIVE); dRVVT Screen 52 seconds (< OR = 45)
--- NOTE | 2025-08-24 07:58 | ESPR_ITS ---
<Statement entered by Vanessa Crawley MD - 08/24/25 15:31> Patient was seen and examined at bedside. Patient opened his eyes and track objects. Appears to be lying in bed comfortably. His hemoglobin dropped to 5.5 he was transfused 2 units of blood. His Eliquis was held. Fecal occult blood test was done and it was negative. Will consult the GI specialist Dr. Conner and will see his recommendations. For his pneumonia we will continue the patient on cefepime currently at baseline regarding his ventilation settings. Anticipated discharge within the next 48 hours. - Patient's plan and care discussed with my attending, Dr. Mary Kay Crawley MD Internal Medicine PGY-3 Documentation for date of: 08/24/25 Subjective Subjective Interval history: Patient remains stable on day 2 since downgrade from ICU. Mr. Burkett is opening his eyes to address this morning, and some eye tracking is noted on exam. Parapalegic. Laboratory workup and vital signs remain WNL. He continues to receive cefepime abx. Tube feedings were started overnight. Goal today is to evaluate potential sources of GI bleeding, previously documented by ICU. FOBT test ordered, GI consulted. Exam Vital Signs Temp Pulse Resp BP Pulse Ox O2 Del Method FiO2 97.9 F 69 20 126/71 99 Mechanical Ventilation 30 08/24/25 04:00 08/24/25 06:29 08/24/25 06:29 08/24/25 06:29 08/24/25 06:29 08/22/25 04:45 08/24/25 07:12 Narrative Exam General: trach peg in place, blinking and eyes are noticed to be tracking on exam HEENT: tracheostomy and mechanically ventillated Cardiovascular: regular rate and rhythm, S1/S2 present, no murmurs appreciated Pulmonary: clear to auscultation bilaterally, no rales/rhonchi/wheezes Abdominal: percutaneous gastrostomy tube in place Musculoskeletal: no peripheral edema Skin: Warm, well-perfused Objective Labs 08/25/25 04:43 08/25/25 04:43 Labs: Laboratory Results - last 24 hr 08/19/25 08/24/25 19:38 04:28 WBC 8.2 RBC 3.11 L Hgb 8.1 L Hct 25.4 L MCV 82 MCH 26.0 MCHC 31.9 RDW Std Deviation 50.5 H Plt Count 366 D Neut % (Auto) 72 Lymph % (Auto) 16 [place] % (Auto) 5 Eos % (Auto) 7 Baso % (Auto) 0 Neut # (Auto) 5.9 Lymph # (Auto) 1.3 [place] # (Auto) 0.4 Eos # (Auto) 0.6 H Baso # (Auto) 0.0 Immature Gran # (Auto) 0.04 H Absolute Nucleated RBC 0.04 H Immature Gran % 1 H Nucleated RBC % 1 H Lupus Anticoagulant SEE NOTE LA PTT Screen 43 H LA Thrombin Time 21 H LA dRVVT Screen Ratio 52 H LA dRVVT Confirm Ratio NEGATIVE LA dRVVT Mix Ratio TNP dRVVT Mix Interpret TNP Hexagonal Phase Confirm WEAKLY POSITIVE A Protein C Antigen 95 Total Protein S Ag 135 Antithrombin III Ag 119 Antithrombin III Activ 123 Sodium 146 H Potassium 3.9 Chloride 111 H Carbon Dioxide 22.8 Anion Gap 12 BUN 32 H Creatinine 0.8 Estim Creat Clear Calc 101.9 eGFR > 60 BUN/Creatinine Ratio 40 H Glucose 98 Calculated Osmolality 297 H Calcium 8.8 Corrected Calcium 9.2 Phosphorus 2.7 Magnesium 2.3 Total Bilirubin 0.8 AST 18 ALT 26 Alkaline Phosphatase 148 H Total Protein 7.0 Albumin 3.5 Globulin 3.5 Albumin/Globulin Ratio 1.0 L ABG Interpretation ABG results: 08/19/25 08/19/25 20:08 22:17 ABG pH 7.23 L 7.38 D ABG pCO2 47 36 D ABG pO2 85 140 H D ABG HCO3 20 21 ABG O2 Saturation 95 100 H ABG Base Excess -8 L -4 L Quality Measures Quality Measures sepsis Current suspected stage: ruled out Possible source: pulmonary Blood cultures ordered: yes Antibiotic ordered: Yes Advance care planning discussed with:: patient Assessment & Plan Assessment Current Active Medications: Generic Name Dose Route Start Last Admin Trade Name Freq PRN Reason Stop Dose Admin Acetaminophen 650 mg 08/19/25 15:10 Acetaminophen 325 Mg Tablet PO 09/18/25 15:09 Q6H PRN Fever >100.4 Acetaminophen 650 mg 08/19/25 15:15 Acetaminophen 325 Mg Tablet PO 09/18/25 15:14 Q6H PRN PAIN SCALE 1-3 (mild Hydrocodone Bitart/Acetaminophen 1 tab 08/19/25 15:34 08/19/25 18:10 Hydrocodone/Apap 10/325 Tab GT 08/24/25 15:33 1 tab Q4HR PRN Administration PAIN SCALE 7-10 (Severe Apixaban 2.5 mg 08/20/25 21:00 08/23/25 21:38 Apixaban 2.5 Mg Tablet PO 09/19/25 20:59 2.5 mg BID IMANI Administration Balsam [place] Oil 0 gm 08/20/25 21:00 08/23/25 21:40 Balsam [place] Oil (Venelex) 60 Gm Tube TOP 09/19/25 20:59 60 applicatio BID IMANI Administration Dextrose 25 ml 08/21/25 00:25 08/23/25 21:46 Dextrose 50%-Water Inj 50 Ml Syringe IV 09/20/25 00:24 25 ml Q15MIN PRN Administration BG 50-70 responsive npo pt Dextrose 50 ml 08/21/25 00:25 Dextrose 50%-Water Inj 50 Ml Syringe IV 09/20/25 00:24 Q15MIN PRN BG <50 OR BG <70 & pt unresponsive Diphenhydramine HCl 25 mg 08/19/25 17:55 Diphenhydramine Elix 25 Mg/10 Ml [facility] 09/18/25 17:01 Q4H PRN Allergic Symptoms Gabapentin 600 mg 08/19/25 21:00 08/23/25 21:39 Gabapentin 300 Mg Capsule 09/18/25 20:59 600 mg BID IMANI Administration Glucagon 1 mg 08/21/25 00:25 Glucagon Inj 1 Mg Vial IM Q15MIN PRN BG <70, and no IV access Guaifenesin 100 mg 08/22/25 14:00 08/24/25 05:27 Guaifenesin Syrup 200 Mg/10 Ml c 09/21/25 13:59 100 mg TID IMANI Administration Protocol Hydromorphone HCl 0.5 mg 08/19/25 17:45 Hydromorphone Inj 2 Mg/Ml Vial IVP 08/24/25 17:44 Q6H PRN BREAKTHROUGH Pain 4-10 Cefepime HCl 1 gm/ Sodium 50 mls @ 100 mls/hr 08/22/25 21:00 08/23/25 21:39 Chloride IV 08/29/25 20:59 100 mls/hr Q12HR IMANI Administration Insulin Degludec 10 unit 12/17/25 09:00 08/23/25 09:42 Insulin Degludec 5 Unit/0.05 Ml (Per 5 Units) SC 09/21/25 08:59 Not Given QDAY IMANI Insulin Human Lispro 2 unit 08/22/25 00:00 08/22/25 05:08 Insulin Lispro (Admelog) 1 Unit/0.01 Ml Unit SC 09/21/25 00:00 2 unit On Hold: 08/22/25 08:28 Q6HR IMANI Administration Insulin Human Lispro 0 unit 08/22/25 10:00 08/24/25 05:02 Insulin Lispro (Admelog) 1 Unit/0.01 Ml Unit SC 09/21/25 09:59 Not Given Q4HR [facility] Protocol Ipratropium [place] 0.5 mg 08/19/25 17:04 Ipratropium Rt 0.5 Mg/ 2.5 Ml Nebu INH 09/18/25 17:03 Q4H PRN SHORTNESS OF BREATH OR WHEEZE Midodrine 10 mg 08/19/25 22:00 08/24/25 05:02 Midodrine 5 Mg Tablet GT 09/18/25 21:59 Not Given TID IMANI Multivitamins 1 tab 08/20/25 09:15 08/23/25 08:29 Multivitamins Tablet NG 09/19/25 09:14 1 tab QDAY [facility] Administration Oxycodone/Acetaminophen 1 tab 08/20/25 18:21 Oxycodone/Apap 5/325 Tablet GT 08/24/25 15:33 Q6H PRN AGITATION Pantoprazole Sodium 40 mg 08/22/25 09:00 08/23/25 21:38 Pantoprazole Inj 40 Mg Vial IVP 09/21/25 08:59 40 mg BID IMANI Administration Pharmacy Consult 1 each 08/20/25 10:23 Pharmacy Renal Dose Adjustment 1 Ea XX 09/19/25 10:22 PRN PRN CONSULT Protocol Simethicone 80 mg 08/21/25 21:00 08/23/25 21:38 Simethicone 80 Mg Chew GT 09/20/25 20:59 80 mg BID IMANI Administration Zinc Sulfate 220 mg 08/20/25 09:15 08/23/25 08:29 Zinc Sulfate 220 Mg Capsule NG 09/19/25 09:14 220 mg QDAY IMANI Administration Plan #Pneumonia #Pleural Effusions #Sepsis Tracheostomy dependent Hx of admissions for pneumonia, pseudomonas + Fever, Leukocytosis Differential diagnosis = ventilator-associated pneumonias vs community-acquired pneumonia vs other CT Chest 08/19 Bilateral Pleural Effusions s/p code blue --> ICU admission for vasopressor support and transfusion --> back to medicine for further management 08/19 1 Blood cultures Enterobacter cloacae, Proteus mirabilis -Possible contamination, to follow up with lab 08/19 sputum 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, sepsis due to this organism unlikely given clinical improvement on zosyn that has been narrowed down to cefepime -Clinically monitor #Pericardial Effusion #Elevated troponin Pericardial Effusion 33mm found 08/19 CT Chest ECHO 08/19 EF ~ 40-50% Troponin 08/19 .128 -> 0.79 -> 0.464 most likely elevated due to heart strain in the setting of hypovolemic shock 2/2 sepsis; coupled with pericardial effusion w/out circulatory compromise/obstruction -per Cardiology: Nonoperative management #Tracheostomy #Respiratory Failure Tracheostomy [place] [address] 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 Sanchez was transferred to [place] to get IVC filter but it was never done -To follow up again on IVC filter placement -DVT prophylaxis = Eliquis 2.5 PO BID(peg tube) #HTN Admission BP 99/64 Fluid bolus given in ID -Holding home antihypertensives in the setting of hypovolemia #T2DM -ISS Degludec 10U QDay Lispro 2 U SC q6H Sugar Checks Q4Hr #Sacral Ulcer Wound(s) Hx of sacral ulcer wounds -Wound nursing management #Hyperlipidemia -Restarted Atorvastatin 20mg q24h s/p resolution of elevated LFT's 2/2 hypovolemic shock, sepsis #Allergies Hx of angioedema w/ NYLA, ARB-Angiotensin receptor antagonists Hx of hives, itching, rash - heat vs other -Avoid use for management of BP medication #Neuropathy Hx of bilateral neuropathy -Restarted home Gabapentin 600mg BID #Constipation -Restarted home dose of Lactulose 10gm/15mL q24 -Restarted home regimen Milk of Magnesia 400mg/5mL - give if no BM for 2 days #History of CVA Tracheostomy, PEG tube dependence Quadriplegic Last documented event of stroke = 08/19 CT Head no evidence of hemorrhagic stroke -Continued management of above conditions with corresponding therapies/medications -No Hospital management: Disposition: Tele s/p resolution of vasopressor requirements Fluids: none Diet: PEG tube feeds Lines: PIV DVT prophylaxis: Eliquis CODE STATUS: full code Plan discussed with attending physician Dr. Zeyad Muñiz and senior resident Dr. Vanessa Gross MD, PGY1 Attending Provider Attestation/Addendum I have examined the patient, reviewed labs and imaging findings, discussed the case with the resident(s), and reviewed entered orders. I agree with the plan of care as outlined in this note. Dr. Mary Kay MD
[2025-08-24] MEDS: APIXABAN 2.5 MG TABLET PO ×2 (08:05→20:59)
[2025-08-24] MEDS: SIMETHICONE 80 MG CHEW GT ×2 (08:05→20:58)
[2025-08-24] MEDS: MULTIVITAMINS TABLET 1 TAB NG (08:05)
[2025-08-24] MEDS: GABAPENTIN 300 MG CAPSULE 600 MG GT ×2 (08:06→20:58)
[2025-08-24] MEDS: ZINC SULFATE 220 MG CAPSULE NG (08:06)
[2025-08-24] MEDS: CEFEPIME INJ 1 GM in SODIUM CHLORIDE 0.9% (Popper) 50 ML IV ×2 (08:06→20:59)
[2025-08-24] MEDS: BALSAM PERU/CASTOR OIL (Venelex) 60 GM TUBE TOP ×2 (10:09→20:52)
[2025-08-24] MEDS: MIDODRINE 5 MG TABLET 10 MG GT ×2 (15:23→20:59)
--- NOTE | 2025-08-24 17:19 | ESPR_ITS ---
<Statement entered by Jamie Tarango MD - 08/25/25 18:22> The patient personally evaluated examined by ut for cardiology patient clinically stable because history of recurrent DVT question was raised whether he should have IVC filter placed. There is no indication for IVC filter in this patient the patient does not have current deep vein thrombosis requiring anticoagulation or contraindication. The only indication for IVC filter placement is recurrent pulmonary embolism on anticoagulation and/or contraindication for anticoagulation with extensive DVT and recurrent DVT with embolus. There is no need for preventative IVC filter placement it is in fact contraindicated. Will sign off the patient's case now and will reevaluate if necessary Documentation for date of: 08/24/25 Subjective Subjective Interval history: 08/21: Patient examined at bedside in ICU. Overnight event on telemetry patient became tachycardic rate around 150. Heart rate sustained for about 20 minutes. Blood pressure resulted in hypotension requiring increase in Levophed. Today patient is in normal sinus rhythm heart rate 80?90. Attempting to wean Levophed today. Urine culture positive for Burkholderia species, blood cultures negative, ET secretions grew GNR. Continue broad-spectrum antibiotic therapy. 08/22: Patient seen at bedside. Levophed continues to be weaned with BP today around 83/56. Telemetry reviewed, he remains in normal sinus rhythm with rate 60-70. Hb dropped to 5.5. PEG tube feeds were held due to concern for GI bleed. Cr downtrended to 1.1. Patient is receiving 2 units prbc. Antibiotics narrowed to cefepime. For septic shock which had caused demand ischemia NSTEMI II. Urine output +1031 in past 24hrs. 08/23: Today blood pressure improved 131/73 and Levophed was weaned and stopped. Imaging reviewed remains in normal sinus rhythm heart rate 65?70. Hemoglobin improved after RBC yesterday to 7.3. Creatinine 0.9. Eliquis 2.5 twice daily resumed as treatment of recurrent DVTs. Appears that IVC filter was placed on 05/14/25. Repeat imaging during this hospitalization has not noted placement of the IVC filter. 08/24: Patient examined at bedside. He was downgraded to floors yesterday and remains stable. Was at bedside, confirmed that IVC filter was never placed. He continued treatment of recurrent DVTs with Eliquis. Was resumed on 2.5 mg twice daily Eliquis yesterday. Hemoglobin has improved to 8.1 today.'s are stable, potassium 3.9, creatinine 0.8, magnesium 2.3. Laboratory was reviewed he is in normal sinus rhythm. Patient should not have IVC filter placed at this time, unless recurrent DVT occurs during this admission. Primary care team has consulted GI for workup of possible underlying bleed. Cardiology will sign off case. Exam Vital Signs Temp Pulse Resp BP Pulse Ox O2 Del Method FiO2 98.1 F 79 20 131/82 H 97 Mechanical Ventilation 30 08/24/25 16:00 08/24/25 16:00 08/24/25 06:29 08/24/25 16:00 08/24/25 16:00 08/22/25 04:45 08/24/25 16:00 Narrative Exam General: trach peg in place, blinking and eyes are noticed to be tracking on exam HEENT: tracheostomy and mechanically ventillated Cardiovascular: regular rate and rhythm, S1/S2 present, no murmurs appreciated Pulmonary: clear to auscultation bilaterally, no rales/rhonchi/wheezes Abdominal: percutaneous gastrostomy tube in place Musculoskeletal: no peripheral edema Skin: Warm, well-perfused Objective Labs 08/24/25 04:28 08/24/25 04:28 Labs: Laboratory Results - last 24 hr 08/19/25 08/24/25 19:38 04:28 WBC 8.2 RBC 3.11 L Hgb 8.1 L Hct 25.4 L MCV 82 MCH 26.0 MCHC 31.9 RDW Std Deviation 50.5 H Plt Count 366 D Neut % (Auto) 72 Lymph % (Auto) 16 [place] % (Auto) 5 Eos % (Auto) 7 Baso % (Auto) 0 Neut # (Auto) 5.9 Lymph # (Auto) 1.3 [place] # (Auto) 0.4 Eos # (Auto) 0.6 H Baso # (Auto) 0.0 Immature Gran # (Auto) 0.04 H Absolute Nucleated RBC 0.04 H Immature Gran % 1 H Nucleated RBC % 1 H Lupus Anticoagulant SEE NOTE LA PTT Screen 43 H LA Thrombin Time 21 H LA dRVVT Screen Ratio 52 H LA dRVVT Confirm Ratio NEGATIVE LA dRVVT Mix Ratio TNP dRVVT Mix Interpret TNP Hexagonal Phase Confirm WEAKLY POSITIVE A Protein C Antigen 95 Total Protein S Ag 135 Antithrombin III Ag 119 Antithrombin III Activ 123 Sodium 146 H Potassium 3.9 Chloride 111 H Carbon Dioxide 22.8 Anion Gap 12 BUN 32 H Creatinine 0.8 Estim Creat Clear Calc 101.9 eGFR > 60 BUN/Creatinine Ratio 40 H Glucose 98 Calculated Osmolality 297 H Calcium 8.8 Corrected Calcium 9.2 Phosphorus 2.7 Magnesium 2.3 Total Bilirubin 0.8 AST 18 ALT 26 Alkaline Phosphatase 148 H Total Protein 7.0 Albumin 3.5 Globulin 3.5 Albumin/Globulin Ratio 1.0 L ABG Interpretation ABG results: 08/19/25 08/19/25 20:08 22:17 ABG pH 7.23 L 7.38 D ABG pCO2 47 36 D ABG pO2 85 140 H D ABG HCO3 20 21 ABG O2 Saturation 95 100 H ABG Base Excess -8 L -4 L Quality Measures Quality Measures sepsis Current suspected stage: ruled out Possible source: pulmonary Blood cultures ordered: yes Antibiotic ordered: Yes Advance care planning discussed with:: spouse Assessment & Plan Assessment Current Active Medications: Generic Name Dose Route Start Last Admin Trade Name Freq PRN Reason Stop Dose Admin Acetaminophen 650 mg 08/19/25 15:10 Acetaminophen 325 Mg Tablet PO 09/18/25 15:09 Q6H PRN Fever >100.4 Acetaminophen 650 mg 08/19/25 15:15 Acetaminophen 325 Mg Tablet PO 09/18/25 15:14 Q6H PRN PAIN SCALE 1-3 (mild Apixaban 2.5 mg 08/20/25 21:00 08/24/25 08:05 Apixaban 2.5 Mg Tablet PO 09/19/25 20:59 2.5 mg BID IMANI Administration Balsam [place] Oil 0 gm 08/20/25 21:00 08/24/25 10:09 Balsam [place] Oil (Venelex) 60 Gm Tube TOP 09/19/25 20:59 1 applicatio BID IMANI Administration Dextrose 25 ml 08/21/25 00:25 08/23/25 21:46 Dextrose 50%-Water Inj 50 Ml Syringe IV 09/20/25 00:24 25 ml Q15MIN PRN Administration BG 50-70 responsive npo pt Dextrose 50 ml 08/21/25 00:25 Dextrose 50%-Water Inj 50 Ml Syringe IV 09/20/25 00:24 Q15MIN PRN BG <50 OR BG <70 & pt unresponsive Diphenhydramine HCl 25 mg 08/19/25 17:55 Diphenhydramine Elix 25 Mg/10 Ml [facility] 09/18/25 17:01 Q4H PRN Allergic Symptoms Gabapentin 600 mg 08/19/25 21:00 08/24/25 08:06 Gabapentin 300 Mg Capsule GT 09/18/25 20:59 600 mg BID IMANI Administration Glucagon 1 mg 08/21/25 00:25 Glucagon Inj 1 Mg Vial IM Q15MIN PRN BG <70, and no IV access Guaifenesin 100 mg 08/22/25 14:00 08/24/25 15:22 Guaifenesin Syrup 200 Mg/10 Ml [facility] 09/21/25 13:59 100 mg TID IMANI Administration Protocol Hydromorphone HCl 0.5 mg 08/19/25 17:45 Hydromorphone Inj 2 Mg/Ml Vial IVP 08/24/25 17:44 Q6H PRN BREAKTHROUGH Pain 4-10 Cefepime HCl 1 gm/ Sodium 50 mls @ 100 mls/hr 08/22/25 21:00 08/24/25 08:06 Chloride IV 08/29/25 20:59 100 mls/hr Q12HR [facility] Administration Insulin Degludec 10 unit 08/22/25 09:00 08/24/25 08:23 Insulin Degludec 5 Unit/0.05 Ml (Per 5 Units) SC 09/21/25 08:59 Not Given QDAY [facility] Insulin Human Lispro 2 unit 08/22/25 00:00 08/22/25 05:08 Insulin Lispro (Admelog) 1 Unit/0.01 Ml Unit SC 09/21/25 00:00 2 unit On Hold: 08/22/25 08:28 Q6HR [facility] Administration Insulin Human Lispro 0 unit 08/24/25 12:00 08/24/25 12:26 Insulin Lispro (Admelog) 1 Unit/0.01 Ml Unit [place] 09/23/25 11:59 Not Given Q6HR [facility] Protocol Ipratropium [place] 0.5 mg 08/19/25 17:04 Ipratropium Rt 0.5 Mg/ 2.5 Ml Nebu INH 09/18/25 17:03 Q4H PRN SHORTNESS OF BREATH OR WHEEZE Midodrine 10 mg 08/19/25 22:00 08/24/25 15:23 Midodrine 5 Mg Tablet GT 09/18/25 21:59 10 mg TID IMANI Administration Multivitamins 1 tab 08/20/25 09:15 08/24/25 08:05 Multivitamins Tablet NG 09/19/25 09:14 1 tab QDAY IMANI Administration Pantoprazole Sodium 40 mg 08/22/25 09:00 08/24/25 08:08 Pantoprazole Inj 40 Mg Vial IVP 09/21/25 08:59 40 mg BID IMANI Administration Pharmacy Consult 1 each 08/20/25 10:23 Pharmacy Renal Dose Adjustment 1 Ea XX 09/19/25 10:22 PRN PRN CONSULT Protocol Simethicone 80 mg 08/21/25 21:00 08/24/25 08:05 Simethicone 80 Mg Chew GT 09/20/25 20:59 80 mg BID IMANI Administration Zinc Sulfate 220 mg 08/20/25 09:15 08/24/25 08:06 Zinc Sulfate 220 Mg Capsule NG 09/19/25 09:14 220 mg QDAY IMANI Administration Plan Mr. Sanchez is a 80 year old gentleman with a hx of recurrent renal injury, CVA with chronic trach and peg, chronic german (hx of Pseudamona UTI sensitive to zosyn) who presented from sub acute facility in [place], with reported increased fatigue and lethargy, found to be febrile, admitted to the floor with sepsis pna vs UTI who subsequently coded on 08/19 and had ROSC, who was subsequently admitted to the ICU for distributive shock on mech vent per the trach and pressors. #Moderate pericardial effusion. No evidence of cardiac tamponade. #Left side pneumonia and pleural effusion with respiratory failure. #Status post tracheostomy and PEG tube placement. 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 #Status post PEA cardiopulmonary arrest secondary to septic shock, sepsis. #Recurrent DVT Continue broad-spectrum antibiotics for NSTEMI type II, demand ischemia. Most likely in setting of distributive shock (septic shock). Low concern for cardiogenic shock--Echo completed 08/19 showing normal LV size, EF 40-50%. Moderate pericardial effusion, no tamponade. Adequate contractility. From cardiac point of view, no need for any pericardiocentesis. There is no evidence of echocardiogram signs of tamponade or clinical tamponade. Continue antibiotics. Resume eliquis 2.5mg BID. IVC filter was never placed in the past per . Do not recommend to place at all. Unless he has recurring DVT during this admission. Primary care team to manage above conditions and ongoing care needs. Cardiology will sign off case for now. The patient's management plan was discussed with my attending physician Dr. Tarango. Vicky Betancourt, PGY-2
--- NOTE | 2025-08-24 19:02 | ESCONSULT_ITS ---
HPI Data of Consult Requesting Physician: Nicanor Montelongo MD Primary Care Provider: Alexa Heredai MD ([facility]) Consult Narrative Reason for consult: Anemia hemoglobin hematocrit 5.6/18.2 History of present illness: 80 years old male admitted on 08/19/[address] [facility] when he presented to the emergency room with altered level of consciousness elevated heart rate Patient was found to have pneumonia with bilateral pleural effusion on imaging studies as well as a history of CVA status post tracheostomy PEG and history of diabetes mellitus type 2 Patient has grown Pseudomonas in the sputum And has history of recurrent UTIs and also has sacral decubitus ulcer He is presenting hemoglobin hematocrit on 08/22/2025 was 5.6 and 18.2 since then patient has been transfused as of today hemoglobin hematocrit 8.1 and 25.4 Hemoccult testing as of 08/24/2025 is negative Not much history obtainable from the patient cc:: cc: Nicanor Montelongo MD Review of Systems Review of Systems Systems Reviewed: All systems reviewed, normal except as documented ROS Unobtainable: unobtainable due to medical condition Past Medical History Surgical History OTHER SURGICAL HX: As in the history of present illness Meds Home Medications and Allergies Home Medications ?Medication ?Instructions ?Recorded ?Confirmed ?Type ascorbic acid (vitamin C) 500 mg 500 mg feeding tube B ID 01/05/22 08/20/25 History tablet ezetimibe 10 mg tablet 10 mg feeding tube QPM 01/0508/20/25 History multivitamin with minerals 15 ml feeding tube QDAY 10/2808/20/25 History lactulose 10 gram/15 mL oral 20 g feeding tube QDAY 08/20/25 History solution simethicone 80 mg chewable tablet 80 mg feeding tube B ID 08/14/22 08/20/25 History bisacodyl 10 mg rectal suppository 10 mg KS EVERYOTHER DAY PRN bowel 11/27/22 08/20/25 History gabapentin 300 mg capsule 600 mg feeding tube BID 11/0508/20/25 History atorvastatin 20 mg tablet 20 mg feeding tube QPM 05/2508/20/25 History sennosides 8.8 mg/5 mL oral syrup 5 ml feeding tube BI D 05/25/25 08/20/25 History (senna) apixaban 2.5 mg tablet (Eliquis) 2.5 mg PO BID 5 08/20/25 History diphenhydramine HCl 25 mg tablet 25 mg feeding tube Q4 H 08/20/25 08/20/25 History (Allergy Relief (diphenhydramine)) oxycodone 5 mg tablet 5 mg feeding tube Q6H PRN pa in 08/20/25 08/20/25 History Allergies Allergy/AdvReac Type Severity Reaction Status Date / Time adhesive tape Allergy Rash Verified 05/16/25 18:05 NYLA Inhibitors AdvReac Severe Upper Verified 04/20/24 14:37 Airway Edema ARB-Angiotensin Receptor AdvReac Severe Upper Verified 04/20/24 14:37 Antagonist Airway Edema Exam Vital Signs Temp Pulse Resp BP Pulse Ox O2 Del Method FiO2 98.1 F 79 20 131/82 H 97 Mechanical Ventilation 30 08/24/25 16:00 08/24/25 16:00 08/24/25 06:29 08/24/25 16:00 08/24/25 16:00 08/22/25 04:45 08/24/25 16:00 Constitutional Comments: Status post PEG and tracheostomy Routine Abdominal Exam Comments: Has a PEG tube Results Labs 08/25/25 04:43 08/25/25 04:43 Labs: Short CBC 08/24/25 Range/Units 04:28 WBC 8.2 (3.8-10.6) Thou/mm3 Hgb 8.1 L (13.5-16.0) g/dL Hct 25.4 L (41.0-53.0) % Plt Count 366 D (140-440) Thou/mm3 [facility] 08/24/25 04:28 Sodium 146 H Potassium 3.9 Chloride 111 H Carbon Dioxide 22.8 BUN 32 H Creatinine 0.8 Glucose 98 Calcium 8.8 Liver Function 08/24/25 Range/Units 04:28 Total Bilirubin 0.8 (0.3-1.2) mg/dL AST 18 (0-34) U/L ALT 26 (10-49) U/L Alkaline Phosphatase 148 H (46-116) U/L Albumin 3.5 (3.4-4.8) gm/dL ABG Interpretation ABG results: 08/19/25 08/19/25 20:08 22:17 ABG pH 7.23 L 7.38 D ABG pCO2 47 36 D ABG pO2 85 140 H D ABG HCO3 20 21 ABG O2 Saturation 95 100 H ABG Base Excess -8 L -4 L Assessment and Plan Additional Assessment & Plan Additional Plan: Chronic anemia with Hemoccult negative stool as of 08/24/2025 although presenting hemoglobin hematocrit on 08/22/2025 was 5.6 and 18.2 Like to monitor and continue to monitor CBC No signs of any active bleeding at the moment Will reevaluate the patient tomorrow morning to see if she will benefit from an upper endoscopic evaluation prior to discharge Will follow the patient
[2025-08-25] VITALS (38 sets, daily range): BP systolic 83–181; BP diastolic 54–102; PULSE 69–88; RESP 20–29; TEMP 36.3–37.1; O2SAT 84–100; BMI 33.9
[2025-08-25 05:12] LABS: Basophils # (Auto) 0.0 Thou/mm3 (0.0-0.2); Basophils % (Auto) 0 % (0-2.5); Eosinophils # (Auto) 0.5 Thou/mm3 (0.0-0.5); Eosinophils % (Auto) 6 % (0-10); Hematocrit 27.2 % (41.0-53.0); Immature Granulocytes Auto 0.07 Thou/mm3 (0.00-0.00); Lymphocytes # (Auto) 1.7 Thou/mm3 (1.0-4.8); Lymphocytes % (Auto) 19 % (10-50); Mean Corpuscular HGB Conc 30.9 g/dl (31.0-37.0); Mean Corpuscular Hemoglobin 25.5 pg (25.0-35.0); Mean Corpuscular Volume 83 fL (80-100); Monocytes # (Auto) 0.5 Thou/mm3 (0.0-0.8); Monocytes % (Auto) 5 % (0-12); Neutrophils # (Auto) 6.3 Thou/mm3 (1.8-7.7); Neutrophils % (Auto) 70 % (37-80); Nucleated Red Blood Cell # 0.04 Thou/mm3 (0.00-0.00); Nucleated Red Blood Cell % 0 /100 WBC (0); Platelet Count 420 Thou/mm3 (140-440); RDW Standard Deviation 52.6 fL (35.1-43.9); Red Blood Count 3.29 Miln/mm3 (4.50-5.90); White Blood Count 9.1 Thou/mm3 (3.8-10.6)
[2025-08-25 05:13] LABS: Hemoglobin 8.4 g/dL (13.5-16.0)
[2025-08-25 05:35] LABS: Alanine Aminotransferase 20 U/L (10-49); Albumin, Serum 3.6 gm/dL (3.4-4.8); Albumin/Globulin Ratio 0.9 (1.2-2.2); Alkaline Phosphatase 145 U/L (46-116); Anion Gap 12 (7-16); Aspartate Amino Transferase 17 U/L (0-34); BUN/Creatinine Ratio 31 Ratio (12-20); Bilirubin,Total 0.6 mg/dL (0.3-1.2); Blood Urea Nitrogen 22 mg/dL (9-23); Calcium 9.1 mg/dL (8.3-10.6); Calcium (Corrected) 9.4 mg/dL (8.5-10.1); Carbon Dioxide 22.3 mMol/L (20.0-31.0); Chloride 111 mMol/L (98-107); Creatinine (Component) 0.7 mg/dL (0.6-1.3); Estimated Creatinine Clearance 116.4 mL/min (>60); Globulin 4.0 gm/dL (2.3-3.5); Glucose 151 mg/dL (74-106); Magnesium 2.2 mg/dL (1.6-2.6); Osmolality,Calculated 295 (275-295); Phosphorous 2.9 mg/dL (2.4-5.1); Potassium 3.8 mMol/L (3.4-5.1); Sodium 145 mMol/L (136-145); Total Protein 7.6 gm/dL (5.7-8.2); eGFR > 60 See Note
[2025-08-25] MEDS: CEFEPIME INJ 1 GM in SODIUM CHLORIDE 0.9% (Popper) 50 ML IV ×2 (08:21→22:20)
[2025-08-25] MEDS: MORPHINE SULF INJ 4 MG/ML VIAL 2 MG IVP (11:50)
[2025-08-25] MEDS: BALSAM PERU/CASTOR OIL (Venelex) 60 GM TUBE TOP ×2 (12:00→23:45)
--- NOTE | 2025-08-25 13:44 | ESPR_ITS ---
<Statement entered by Brian Man MD - 08/25/25 13:47> No acute overnight events. Seen and examined at bedside and patient appears to be resting comfortably in bed. Vital signs show increasing blood pressure for which midodrine was held. Given x 1 dose of morphine due to suspicion of possible pain causing elevated blood pressures and will continue to monitor. CBC showing stable hemoglobin. CHEM panel largely unremarkable. GI following and will evaluate patient for possible GI workup prior to discharge and will follow-up on recommendations. Will continue with cefepime at this time and anticipate discharge within next 24 to 48 hours. ----- Note reviewed and agree with care plan as documented. Please refer to the note below for further details. Plan discussed with attending physician Dr. Mary Kay Man MD PGY-2 Internal Medicine Documentation for date of: 08/25/25 Subjective Subjective Interval history: Mr. Sanchez has been passing stool through rectal tube. Held tube feeds in anticipation of endoscopy by Dr. Simon Conner for further evaluation of potential gastrointestinal bleeding. Otherwise pt's mentation seems to be improving: He is able to track with his eyes on exam and blink. Motor exam consistent with previously-noted quadriplegia. VSS NAEO. Exam Vital Signs Temp Pulse Resp BP Pulse Ox O2 Del Method FiO2 97.5 F 77 20 169/101 H 97 Mechanical Ventilation 30 08/25/25 04:00 08/25/25 10:15 08/25/25 06:18 08/25/25 10:15 08/25/25 10:15 08/22/25 04:45 08/25/25 10:15 Narrative Exam General: GCS [id number] = 6, tracheostomy and percutaneous gastrostomy in place HEENT: NC/AT, mucous membranes moist, bilateral sclera anicteric Cardiovascular: regular rate and rhythm, S1/S2 present, no murmurs appreciated Pulmonary: clear to auscultation bilaterally, no rales/rhonchi/wheezes Abdominal: soft, nontender, present bowel sounds Musculoskeletal: no peripheral edema Skin: Warm, well-perfused Objective Labs 08/26/25 04:50 08/26/25 04:50 Labs: Laboratory Results - last 24 hr 08/22/25 08/25/25 06:30 04:43 WBC 9.1 RBC 3.29 L Hgb 8.4 L Hct 27.2 L MCV 83 MCH 25.5 MCHC 30.9 L RDW Std Deviation 52.6 H Plt Count 420 D Neut % (Auto) 70 Lymph % (Auto) 19 [place] % (Auto) 5 Eos % (Auto) 6 Baso % (Auto) 0 Neut # (Auto) 6.3 Lymph # (Auto) 1.7 [place] # (Auto) 0.5 Eos # (Auto) 0.5 Baso # (Auto) 0.0 Immature Gran # (Auto) 0.07 H Absolute Nucleated RBC 0.04 H Immature Gran % 1 H Nucleated RBC % 0 Sodium 145 Potassium 3.8 Chloride 111 H Carbon Dioxide 22.3 Anion Gap 12 BUN 22 Creatinine 0.7 Estim Creat Clear Calc 116.4 eGFR > 60 BUN/Creatinine Ratio 31 H Glucose 151 H D Calculated Osmolality 295 Calcium 9.1 Corrected Calcium 9.4 Phosphorus 2.9 Magnesium 2.2 Total Bilirubin 0.6 AST 17 ALT 20 Alkaline Phosphatase 145 H Total Protein 7.6 Albumin 3.6 Globulin 4.0 H Albumin/Globulin Ratio 0.9 L Crossmatch See Detail ABG Interpretation ABG results: 08/19/25 08/19/25 20:08 22:17 ABG pH 7.23 L 7.38 D ABG pCO2 47 36 D ABG pO2 85 140 H D ABG HCO3 20 21 ABG O2 Saturation 95 100 H ABG Base Excess -8 L -4 L Quality Measures Quality Measures sepsis Current suspected stage: sepsis Possible source: pulmonary Blood cultures ordered: yes Antibiotic ordered: Yes Advance care planning discussed with:: patient Assessment & Plan Assessment Current Active Medications: Generic Name Dose Route Start Last Admin Trade Name Freq PRN Reason Stop Dose Admin Acetaminophen 650 mg 08/19/25 15:10 Acetaminophen 325 Mg Tablet PO 09/18/25 15:09 Q6H PRN Fever >100.4 Acetaminophen 650 mg 08/19/25 15:15 Acetaminophen 325 Mg Tablet PO 09/18/25 15:14 Q6H PRN PAIN SCALE 1-3 (mild Apixaban 2.5 mg 08/20/25 21:00 08/25/25 11:09 Apixaban 2.5 Mg Tablet PO 09/19/25 20:59 Not Given BID IMANI Balsam [place]/Bodfish Oil 0 gm 08/20/25 21:00 08/25/25 11:10 Balsam Michael/Bodfish Oil (Venelex) 60 Gm Tube TOP 09/19/25 20:59 Not Given BID IMANI Dextrose 25 ml 08/21/25 00:25 08/23/25 21:46 Dextrose 50%-Water Inj 50 Ml Syringe IV 09/20/25 00:24 25 ml Q15MIN PRN Administration BG 50-70 responsive npo pt Dextrose 50 ml 08/21/25 00:25 Dextrose 50%-Water Inj 50 Ml Syringe IV 09/20/25 00:24 Q15MIN PRN BG <50 OR BG <70 & pt unresponsive Diphenhydramine HCl 25 mg 08/19/25 17:55 Diphenhydramine Elix 25 Mg/10 Ml Udc GT 09/18/25 17:01 Q4H PRN Allergic Symptoms Gabapentin 600 mg 08/19/25 21:00 08/25/25 11:09 Gabapentin 300 Mg Capsule GT 09/18/25 20:59 Not Given BID IMANI Glucagon 1 mg 08/21/25 00:25 Glucagon Inj 1 Mg Vial IM Q15MIN PRN BG <70, and no IV access Guaifenesin 100 mg 08/22/25 14:00 08/25/25 05:23 Guaifenesin Syrup 200 Mg/10 Ml Udc GT 09/21/25 13:59 Not Given TID [facility] Protocol Cefepime HCl 1 gm/ Sodium 50 mls @ 100 mls/hr 08/22/25 21:00 08/25/25 11:10 Chloride IV 08/29/25 20:59 Infused Q12HR [facility] Infusion Insulin Degludec 10 unit 08/22/25 09:00 08/25/25 11:10 Insulin Degludec 5 Unit/0.05 Ml (Per 5 Units) SC 09/21/25 08:59 Not Given QDAY [facility] Insulin Human Lispro 2 unit 08/22/25 00:00 08/22/25 05:08 Insulin Lispro (Admelog) 1 Unit/0.01 Ml Unit SC 09/21/25 00:00 2 unit On Hold: 08/22/25 08:28 Q6HR [facility] Administration Insulin Human Lispro 0 unit 08/24/25 12:00 08/25/25 11:12 Insulin Lispro (Admelog) 1 Unit/0.01 Ml Unit SC 09/23/25 11:59 Not Given Q6HR [facility] Protocol Ipratropium [place] 0.5 mg 08/19/25 17:04 Ipratropium Rt 0.5 Mg/ 2.5 Ml Nebu INH 09/18/25 17:03 Q4H PRN SHORTNESS OF BREATH OR WHEEZE Labetalol HCl 10 mg 08/25/25 11:20 Labetalol Inj 5 Mg/Ml Vial 4 Ml IVP 09/24/25 11:29 Q10MIN PRN hypertension, SBP >160 Midodrine 10 mg 08/19/25 22:00 08/25/25 05:18 Midodrine 5 Mg Tablet GT 09/18/25 21:59 Not Given On Hold: 08/25/25 07:28 TID [facility] Multivitamins 1 tab 08/20/25 09:15 08/25/25 11:09 Multivitamins Tablet NG 09/19/25 09:14 Not Given QDAY [facility] Pantoprazole Sodium 40 mg 08/22/25 09:00 08/25/25 08:20 Pantoprazole Inj 40 Mg Vial IVP 09/21/25 08:59 40 mg BID [facility] Administration Pharmacy Consult 1 each 08/20/25 10:23 Pharmacy Renal Dose Adjustment 1 Ea XX 09/19/25 10:22 PRN PRN CONSULT Protocol Simethicone 80 mg 08/21/25 21:00 08/25/25 11:10 Simethicone 80 Mg Chew GT 09/20/25 20:59 Not Given BID [facility] Zinc Sulfate 220 mg 08/20/25 09:15 08/25/25 11:09 Zinc Sulfate 220 Mg Capsule NG 09/19/25 09:14 Not Given QDAY [facility] Plan Mr. Kwadwo Sanchez is a 80 year old male w/ an extensive past medical history consisting of 2x CVA, hypoxic respiratory failure s/p tracheostomy, HTN, T2DM, Sacral ulcers, vertebral osteomyelitis, s/p PEG tube, chronic german catheterization and multiple DVT's coming in for altered mental status and tachycardia. Admitted to ICU s/p code blue and has since been downgraded to medicine for further management of sepsis 2/2 pneumonia complicated by potential gastrointestinal bleeding pending further workup. 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, sepsis due to this organism unlikely given clinical improvement on zosyn that has been narrowed down to cefepime -Clinically monitor #Pericardial Effusion #Elevated troponin Pericardial Effusion 33mm found 08/19 CT Chest ECHO 08/19 EF ~ 40-50% Troponin 08/19 .128 -> 0.79 -> 0.464 most likely elevated due to heart strain in the setting of hypovolemic shock 2/2 sepsis; coupled with pericardial effusion w/out circulatory compromise/obstruction -per Cardiology: Nonoperative management #Tracheostomy #Respiratory Failure Tracheostomy [place] [address] Langford 2/2 chronic respiratory failure Has not been able to wean off trach -Continue trach ventilator -Respiratory Therapy to follow -Duonebs q4h PRN for SoB #Nutrition #PEG-tube Dependence Hx of PEG tube dependence s/p stroke in 2021 -Nutrition following, recommendations as needed #DVT Hx of Bilateral Femoral DVT's diagnosed 05/2025 Previous talks about IVC filter placement; per conversation with , Mr. Sanchez was transferred to [place] to get IVC filter but it was never done -To follow up again on IVC filter placement -DVT prophylaxis = Eliquis 2.5 PO BID(peg tube) #HTN Admission BP 99/64 Fluid bolus given in ID -Holding home antihypertensives in the setting of hypovolemia #T2DM -ISS Degludec 10U QDay Lispro 2 U SC q6H Sugar Checks Q4Hr #Sacral Ulcer Wound(s) Hx of sacral ulcer wounds -Wound nursing management #Hyperlipidemia -Restarted Atorvastatin 20mg q24h s/p resolution of elevated LFT's 2/2 hypovolemic shock, sepsis #Allergies Hx of angioedema w/ NYLA, ARB-Angiotensin receptor antagonists Hx of hives, itching, rash - heat vs other -Avoid use for management of BP medication #Neuropathy Hx of bilateral neuropathy -Restarted home Gabapentin 600mg BID #Constipation -Restarted home dose of Lactulose 10gm/15mL q24 -Restarted home regimen Milk of Magnesia 400mg/5mL - give if no BM for 2 days #Cerebral Vascular Accident #Stroke #Quadrapalegia Stroke(s) in 2021, since then has had: Tracheostomy, PEG tube dependence Last documented event of stroke = 08/19 CT Head no evidence of hemorrhagic stroke -Continued management of above conditions with corresponding therapies/medications -No Hospital management: Disposition: Tele s/p resolution of vasopressor requirements Fluids: none Diet: PEG tube feeds Lines: PIV DVT prophylaxis: Eliquis CODE STATUS: full code Plan discussed with attendging physician Dr. Zeyad Muñiz and senior resident Dr. Brian Man. Chase Hernandez MD PGY-1 Attending Provider Attestation/Addendum I have examined the patient, reviewed labs and imaging findings, discussed the case with the resident(s), and reviewed entered orders. I agree with the plan of care as outlined in this note. Dr. Mary Kay MD
[2025-08-25] MEDS: GABAPENTIN 300 MG CAPSULE 600 MG GT (22:20)
[2025-08-25] MEDS: guaiFENesin SYRUP 200 MG/10 ML UDC 100 MG GT (22:20)
[2025-08-25] MEDS: SIMETHICONE 80 MG CHEW GT (22:20)
[2025-08-25] MEDS: APIXABAN 2.5 MG TABLET PO (22:20)
[2025-08-26] VITALS (13 sets, daily range): BP systolic 123–155; BP diastolic 75–95; PULSE 79–102; RESP 20–30; TEMP 35.9–37.2; O2SAT 92–99; BMI 33.9
[2025-08-26] MEDS: guaiFENesin SYRUP 200 MG/10 ML UDC 100 MG GT ×3 (05:39→22:13)
[2025-08-26 06:19] LABS: Basophils # (Auto) 0.0 Thou/mm3 (0.0-0.2); Basophils % (Auto) 0 % (0-2.5); Eosinophils # (Auto) 0.4 Thou/mm3 (0.0-0.5); Eosinophils % (Auto) 4 % (0-10); Hematocrit 28.4 % (41.0-53.0); Immature Granulocytes Auto 0.09 Thou/mm3 (0.00-0.00); Lymphocytes # (Auto) 1.4 Thou/mm3 (1.0-4.8); Lymphocytes % (Auto) 13 % (10-50); Mean Corpuscular HGB Conc 30.6 g/dl (31.0-37.0); Mean Corpuscular Hemoglobin 25.6 pg (25.0-35.0); Mean Corpuscular Volume 84 fL (80-100); Monocytes # (Auto) 0.4 Thou/mm3 (0.0-0.8); Monocytes % (Auto) 4 % (0-12); Neutrophils # (Auto) 8.4 Thou/mm3 (1.8-7.7); Neutrophils % (Auto) 78 % (37-80); Nucleated Red Blood Cell # 0.05 Thou/mm3 (0.00-0.00); Nucleated Red Blood Cell % 1 /100 WBC (0); Platelet Count 394 Thou/mm3 (140-440); RDW Standard Deviation 54.2 fL (35.1-43.9); Red Blood Count 3.40 Miln/mm3 (4.50-5.90); White Blood Count 10.7 Thou/mm3 (3.8-10.6)
[2025-08-26 06:25] LABS: Hemoglobin 8.7 g/dL (13.5-16.0)
[2025-08-26 06:54] LABS: Alanine Aminotransferase 18 U/L (10-49); Albumin, Serum 3.3 gm/dL (3.4-4.8); Albumin/Globulin Ratio 0.8 (1.2-2.2); Alkaline Phosphatase 140 U/L (46-116); Anion Gap 15 (7-16); Aspartate Amino Transferase 18 U/L (0-34); BUN/Creatinine Ratio 26 Ratio (12-20); Bilirubin,Total 0.7 mg/dL (0.3-1.2); Blood Urea Nitrogen 18 mg/dL (9-23); Calcium 9.3 mg/dL (8.3-10.6); Calcium (Corrected) 9.9 mg/dL (8.5-10.1); Carbon Dioxide 19.3 mMol/L (20.0-31.0); Chloride 111 mMol/L (98-107); Creatinine (Component) 0.7 mg/dL (0.6-1.3); Estimated Creatinine Clearance 119.6 mL/min (>60); Globulin 4.3 gm/dL (2.3-3.5); Glucose 146 mg/dL (74-106); Magnesium 2.2 mg/dL (1.6-2.6); Osmolality,Calculated 293 (275-295); Phosphorous 3.0 mg/dL (2.4-5.1); Potassium 3.6 mMol/L (3.4-5.1); Sodium 145 mMol/L (136-145); Total Protein 7.6 gm/dL (5.7-8.2); eGFR > 60 See Note
[2025-08-26] MEDS: ZINC SULFATE 220 MG CAPSULE NG (08:11)
[2025-08-26] MEDS: SIMETHICONE 80 MG CHEW GT ×2 (08:11→22:12)
[2025-08-26] MEDS: APIXABAN 2.5 MG TABLET PO ×2 (08:11→22:05)
[2025-08-26] MEDS: GABAPENTIN 300 MG CAPSULE 600 MG GT ×2 (08:11→22:13)
[2025-08-26] MEDS: MULTIVITAMINS TABLET 1 TAB NG (08:11)
[2025-08-26] MEDS: CEFEPIME INJ 1 GM in SODIUM CHLORIDE 0.9% (Popper) 50 ML IV ×2 (08:12→22:12)
[2025-08-26] MEDS: INSULIN DEGLUDEC 5 UNIT/0.05 ML (PER 5 UNITS) 10 UNIT SC (08:19)
[2025-08-26] MEDS: BALSAM PERU/CASTOR OIL (Venelex) 60 GM TUBE TOP ×2 (08:27→22:13)
--- NOTE | 2025-08-26 08:56 | PC.SS ---
Addendum entered by Skylar Jerry 08/26/25 16:34: Clinicals faxed [email or web address] as requested by Ludmila SONI of [facility]. Original Note: Received call from Ludmila SONI [phone] from [facility] who stated she cannot receive patient today due to lack of bed hold. Ludmila stated it needed to [facility] on [facility], patient can return 08/27/25. SS informed DANNY Morales informed. SS consulted with Dr. Man, he confirmed patient is on IV antibiotics and will likely not need them at discharge. SS informed Lisa-[facility] [phone]. Lisa informed SS Ludmila SONI to contact SS to discuss concerns. Informed by DANNY Morales patient may discharge today. SS contacted Lisa [phone] from [facility] to confirm if patient can return today. Lisa requested to know if patient is on antibiotics and if he'll return with [facility]. Lisa stated they do not have appropriate staff to meet patient's needs today.
--- NOTE | 2025-08-26 14:56 | ESPR_ITS ---
Documentation for date of: 08/26/25 Subjective Subjective Interval history: Patient was seen and examined at bedside. EGD was done yesterday and it was negative for any source of bleeding it was only positive for gastritis with erythema and also erythematous duodenopathy. GI specialist recommended to resume patient feedings. Hemoglobin stable at 8.7, patient was alert respond with yes and no via blinking once or twice with his eyes. So far he has been on cefepime for 6 days we will continue as long as the patient staying here for max of 10 days of cefepime upon discharge we will switch the patient to cefuroxime to complete 10 days. Although the patient is cleared to be discharged from our standpoint however his intermediate facility did not have a bed available so the patient will stay overnight till we have available bed for him upon discharge. Exam Vital Signs Temp Pulse Resp BP Pulse Ox O2 Del Method FiO2 98.1 F 102 H 20 123/80 94 L Mechanical Ventilation 30 08/26/25 12:00 08/26/25 12:00 08/26/25 06:30 08/26/25 12:00 08/26/25 12:00 08/22/25 04:45 08/26/25 12:00 Narrative Exam GEN: Alert, track objects with his eyes, blink once for yes and twice for now. Does not seem to be in distress. On mechanical ventilation VC. HEENT: NC/AC, PERRLA, oral mucosa moist, neck supple CVS: RRR, S1-S2 present, no murmurs appreciated RESP: Good air entry bilaterally, transmitted sound from the tracheostomy was heard in both lungs. No signs of respiratory distress. GI: soft,non distended, non tender, NBS MSK: Unable to move any extremities, spastic deformity of the right leg SKIN: Skin exfoliation of the right leg. Trace edema. CORRECTIONS COUNSELOR: Unable to assess cranial nerves or sensory due to patient's chronic condition. Objective Labs 08/27/25 05:46 08/27/25 05:46 Labs: Laboratory Results - last 24 hr 08/26/25 04:50 WBC 10.7 H RBC 3.40 L Hgb 8.7 L Hct 28.4 L MCV 84 MCH 25.6 MCHC 30.6 L RDW Std Deviation 54.2 H Plt Count 394 Neut % (Auto) 78 Lymph % (Auto) 13 [place] % (Auto) 4 Eos % (Auto) 4 Baso % (Auto) 0 Neut # (Auto) 8.4 H Lymph # (Auto) 1.4 [place] # (Auto) 0.4 Eos # (Auto) 0.4 Baso # (Auto) 0.0 Immature Gran # (Auto) 0.09 H Absolute Nucleated RBC 0.05 H Immature Gran % 1 H Nucleated RBC % 1 H Sodium 145 Potassium 3.6 Chloride 111 H Carbon Dioxide 19.3 L Anion Gap 15 BUN 18 Creatinine 0.7 Estim Creat Clear Calc 119.6 eGFR > 60 BUN/Creatinine Ratio 26 H Glucose 146 H Calculated Osmolality 293 Calcium 9.3 Corrected Calcium 9.9 Phosphorus 3.0 Magnesium 2.2 Total Bilirubin 0.7 AST 18 ALT 18 Alkaline Phosphatase 140 H Total Protein 7.6 Albumin 3.3 L Globulin 4.3 H Albumin/Globulin Ratio 0.8 L ABG Interpretation ABG results: 08/19/25 08/19/25 20:08 22:17 ABG pH 7.23 L 7.38 D ABG pCO2 47 36 D ABG pO2 85 140 H D ABG HCO3 20 21 ABG O2 Saturation 95 100 H ABG Base Excess -8 L -4 L Quality Measures Quality Measures sepsis Current suspected stage: septic shock (LA >4 and/or hypotension) IVF 30 ml/kg given for lactic acid >4 and/or hypotension: yes Sepsis reassessment completed at (date): 08/26/25 Sepsis reassessment completed at (time): 15:16 Possible source: pulmonary Blood cultures ordered: yes Antibiotic ordered: Yes Advance care planning discussed with:: spouse Assessment & Plan Assessment Current Active Medications: Generic Name Dose Route Start Last Admin Trade Name Freq PRN Reason Stop Dose Admin Acetaminophen 650 mg 08/19/25 15:10 Acetaminophen 325 Mg Tablet PO 09/18/25 15:09 Q6H PRN Fever >100.4 Acetaminophen 650 mg 08/19/25 15:15 Acetaminophen 325 Mg Tablet PO 09/18/25 15:14 Q6H PRN PAIN SCALE 1-3 (mild Apixaban 2.5 mg 08/20/25 21:00 08/26/25 08:11 Apixaban 2.5 Mg Tablet PO 09/19/25 20:59 2.5 mg BID IMANI Administration Balsam Michael/[place] Oil 0 gm 08/20/25 21:00 08/26/25 08:27 Balsam Michael/[place] Oil (Venelex) 60 Gm Tube TOP 09/19/25 20:59 1 applicatio BID IMANI Administration Dextrose 25 ml 08/21/25 00:25 08/23/25 21:46 Dextrose 50%-Water Inj 50 Ml Syringe IV 09/20/25 00:24 25 ml Q15MIN PRN Administration BG 50-70 responsive npo pt Dextrose 50 ml 08/21/25 00:25 Dextrose 50%-Water Inj 50 Ml Syringe IV 09/20/25 00:24 Q15MIN PRN BG <50 OR BG <70 & pt unresponsive Diphenhydramine HCl 25 mg 08/19/25 17:55 Diphenhydramine Elix 25 Mg/10 Ml Udc GT 09/18/25 17:01 Q4H PRN Allergic Symptoms Gabapentin 600 mg 08/19/25 21:00 08/26/25 08:11 Gabapentin 300 Mg Capsule GT 09/18/25 20:59 600 mg BID IMANI Administration Glucagon 1 mg 08/21/25 00:25 Glucagon Inj 1 Mg Vial IM Q15MIN PRN BG <70, and no IV access Guaifenesin 100 mg 08/22/25 14:00 08/26/25 14:45 Guaifenesin Syrup 200 Mg/10 Ml [facility] GT 09/21/25 13:59 100 mg TID IMANI Administration Protocol Cefepime HCl 1 gm/ Sodium 50 mls @ 100 mls/hr 08/22/25 21:00 08/26/25 08:12 Chloride IV 08/29/25 20:59 100 mls/hr Q12HR IMANI Administration Insulin Degludec 10 unit 08/22/25 09:00 08/26/25 08:19 Insulin Degludec 5 Unit/0.05 Ml (Per 5 Units) SC 09/21/25 08:59 10 unit QDAY IMANI Administration Insulin Human Lispro 2 unit 08/22/25 00:00 08/22/25 05:08 Insulin Lispro (Admelog) 1 Unit/0.01 Ml Unit SC 09/21/25 00:00 2 unit On Hold: 08/22/25 08:28 Q6HR IMANI Administration Insulin Human Lispro 0 unit 08/24/25 12:00 08/26/25 11:35 Insulin Lispro (Admelog) 1 Unit/0.01 Ml Unit SC 09/23/25 11:59 Not Given Q6HR [facility] Protocol Ipratropium Scammon 0.5 mg 08/19/25 17:04 Ipratropium Rt 0.5 Mg/ 2.5 Ml Nebu INH 09/18/25 17:03 Q4H PRN SHORTNESS OF BREATH OR WHEEZE Labetalol HCl 10 mg 08/25/25 11:20 Labetalol Inj 5 Mg/Ml Vial 4 Ml IVP 09/24/25 11:29 Q10MIN PRN hypertension, SBP >160 Midodrine 10 mg 08/19/25 22:00 08/25/25 05:18 Midodrine 5 Mg Tablet GT 09/18/25 21:59 Not Given On Hold: 08/25/25 07:28 TID IMANI Multivitamins 1 tab 08/20/25 09:15 08/26/25 08:11 Multivitamins Tablet NG 09/19/25 09:14 1 tab QDAY IMANI Administration Pantoprazole Sodium 40 mg 08/22/25 09:00 08/26/25 08:12 Pantoprazole Inj 40 Mg Vial IVP 09/21/25 08:59 40 mg BID IMANI Administration Pharmacy Consult 1 each 08/20/25 10:23 Pharmacy Renal Dose Adjustment 1 Ea XX 09/19/25 10:22 PRN PRN CONSULT Protocol Simethicone 80 mg 08/21/25 21:00 08/26/25 08:11 Simethicone 80 Mg Chew GT 09/20/25 20:59 80 mg BID IMANI Administration Zinc Sulfate 220 mg 08/20/25 09:15 08/26/25 08:11 Zinc Sulfate 220 Mg Capsule NG 09/19/25 09:14 220 mg QDAY IMANI Administration Plan Mr. Kwadwo Sanchez is a 80 year old male w/ an extensive past medical history consisting of 2x CVA, hypoxic respiratory failure s/p tracheostomy, HTN, T2DM, Sacral ulcers, vertebral osteomyelitis, s/p PEG tube, chronic german catheterization and multiple DVT's coming in for altered mental status and tachycardia. Admitted to ICU s/p code blue and has since been downgraded to medicine for further management of sepsis 2/2 pneumonia complicated by potential gastrointestinal bleeding pending further workup. 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 However given the patient's condition and the severity of the sepsis we will treat as true bacteremia. Plan ? Patient was started on cefepime Twice daily 1 g started on 20 August 2025. ? We will switch the patient's to cefuroxime p.o. on discharge to finish 10 days of antibiotics #Gastrointestinal bleeding #Anemia, normocytic baseline Hgb appears to be 8/9 Noted hx of gastrointestinal bleed, unknown record of last BM w/ mandie blood Acute drop in Hgb 5.6 from 7.0 08/22; transfused 2U PRBC EGD was done on 25 August 2005 showed gastritis, duodenitis. Hemoglobin remains stable FOBT negative 08/24 Plan ? Start the patient on Protonix IV 40 mg daily ? 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 Langford 2/2 chronic respiratory failure Has not been able to wean off trach -Continue trach ventilator -Respiratory Therapy to follow -Duonebs q4h PRN for SoB #Nutrition #PEG-tube Dependence Hx of PEG tube dependence s/p stroke in 2021 -Nutrition following, recommendations as needed #DVT Hx of Bilateral Femoral DVT's diagnosed 05/2025 Previous talks about IVC filter placement; per conversation with , Mr. Sanchez was transferred to [place] to get IVC filter but it was never done -To follow up again on IVC filter placement -DVT prophylaxis = Eliquis 2.5 PO BID(peg tube) #HTN Admission BP 99/64 Fluid bolus given in ID -Holding home antihypertensives in the setting of hypovolemia #T2DM -ISS Degludec 10U QDay Lispro 2 U SC q6H Sugar Checks Q4Hr #Sacral Ulcer Wound(s) Hx of sacral ulcer wounds -Wound nursing management #Hyperlipidemia -Restarted Atorvastatin 20mg q24h s/p resolution of elevated LFT's / hypovolemic shock, sepsis #Allergies Hx of angioedema w/ NYLA, ARB-Angiotensin receptor antagonists Hx of hives, itching, rash - heat vs other -Avoid use for management of BP medication #Neuropathy Hx of bilateral neuropathy -Restarted home Gabapentin 600mg BID #Constipation -Restarted home dose of Lactulose 10gm/15mL q24 -Restarted home regimen Milk of Magnesia 400mg/5mL - give if no BM for 2 days #Cerebral Vascular Accident #Stroke #Quadrapalegia Stroke(s) in 2021, since then has had: Tracheostomy, PEG tube dependence Last documented event of stroke = 08/19 CT Head no evidence of hemorrhagic stroke -Continued management of above conditions with corresponding therapies/medications -No Hospital management: Disposition: DC to SNF as soon as bed is available Fluids: none Diet: PEG tube feeds Lines: PIV DVT prophylaxis: Eliquis CODE STATUS: full code Attending Provider Attestation/Addendum I have examined the patient, reviewed labs and imaging findings, discussed the case with the resident(s), and reviewed entered orders. I agree with the plan of care as outlined in this note. Dr. Mary Kay MD
--- NOTE | 2025-08-26 18:00 | ESPR_ITS ---
Documentation for date of: 08/26/25 Subjective Subjective Interval history: Patient evaluated Upper endoscopy showed mild to moderate gastritis Hemoglobin hematocrit 8.7 and 28.4 No further GI workup recommended Exam Vital Signs Temp Pulse Resp BP Pulse Ox O2 Del Method FiO2 96.6 F L 100 20 134/80 H 99 Mechanical Ventilation 30 08/26/25 16:00 08/26/25 16:00 08/26/25 06:30 08/26/25 16:00 08/26/25 16:00 08/22/25 04:45 08/26/25 16:00 Objective Labs 08/26/25 04:50 08/26/25 04:50 Labs: Laboratory Results - last 24 hr 08/26/25 04:50 WBC 10.7 H RBC 3.40 L Hgb 8.7 L Hct 28.4 L MCV 84 MCH 25.6 MCHC 30.6 L RDW Std Deviation 54.2 H Plt Count 394 Neut % (Auto) 78 Lymph % (Auto) 13 [place] % (Auto) 4 Eos % (Auto) 4 Baso % (Auto) 0 Neut # (Auto) 8.4 H Lymph # (Auto) 1.4 [place] # (Auto) 0.4 Eos # (Auto) 0.4 Baso # (Auto) 0.0 Immature Gran # (Auto) 0.09 H Absolute Nucleated RBC 0.05 H Immature Gran % 1 H Nucleated RBC % 1 H Sodium 145 Potassium 3.6 Chloride 111 H Carbon Dioxide 19.3 L Anion Gap 15 BUN 18 Creatinine 0.7 Estim Creat Clear Calc 119.6 eGFR > 60 BUN/Creatinine Ratio 26 H Glucose 146 H Calculated Osmolality 293 Calcium 9.3 Corrected Calcium 9.9 Phosphorus 3.0 Magnesium 2.2 Total Bilirubin 0.7 AST 18 ALT 18 Alkaline Phosphatase 140 H Total Protein 7.6 Albumin 3.3 L Globulin 4.3 H Albumin/Globulin Ratio 0.8 L Impressions Impression: Anemia multifactorial Gastritis From a GI viewpoint patient can be sent back to [facility] ABG Interpretation ABG results: 08/19/25 08/19/25 20:08 22:17 ABG pH 7.23 L 7.38 D ABG pCO2 47 36 D ABG pO2 85 140 H D ABG HCO3 20 21 ABG O2 Saturation 95 100 H ABG Base Excess -8 L -4 L Assessment & Plan A&P Narrative Chronic anemia with Hemoccult negative stool as of 08/24/2025 although presenting hemoglobin hematocrit on 08/22/2025 was 5.6 and 18.2 Like to monitor and continue to monitor CBC No signs of any active bleeding at the moment Will reevaluate the patient tomorrow morning to see if she will benefit from an upper endoscopic evaluation prior to discharge Will follow the patient Time Spent With Patient Time: Total time spent is greater than 50% in coordination of care (as documented) at patient's floor/unit and/or counseling patient:
[2025-08-27] VITALS (13 sets, daily range): BP systolic 106–142; BP diastolic 61–89; PULSE 86–126; RESP 20–31; TEMP 36–37.6; O2SAT 85–100; BMI 33.5
[2025-08-27] MEDS: guaiFENesin SYRUP 200 MG/10 ML UDC 100 MG GT ×3 (05:09→21:39)
[2025-08-27 06:32] LABS: Basophils # (Auto) 0.0 Thou/mm3 (0.0-0.2); Basophils % (Auto) 0 % (0-2.5); Eosinophils # (Auto) 0.4 Thou/mm3 (0.0-0.5); Eosinophils % (Auto) 3 % (0-10); Hematocrit 27.2 % (41.0-53.0); Immature Granulocytes Auto 0.14 Thou/mm3 (0.00-0.00); Lymphocytes # (Auto) 1.7 Thou/mm3 (1.0-4.8); Lymphocytes % (Auto) 14 % (10-50); Mean Corpuscular HGB Conc 30.5 g/dl (31.0-37.0); Mean Corpuscular Hemoglobin 25.7 pg (25.0-35.0); Mean Corpuscular Volume 84 fL (80-100); Monocytes # (Auto) 0.6 Thou/mm3 (0.0-0.8); Monocytes % (Auto) 5 % (0-12); Neutrophils # (Auto) 9.6 Thou/mm3 (1.8-7.7); Neutrophils % (Auto) 77 % (37-80); Nucleated Red Blood Cell # 0.04 Thou/mm3 (0.00-0.00); Nucleated Red Blood Cell % 0 /100 WBC (0); Platelet Count 394 Thou/mm3 (140-440); RDW Standard Deviation 56.8 fL (35.1-43.9); Red Blood Count 3.23 Miln/mm3 (4.50-5.90); White Blood Count 12.4 Thou/mm3 (3.8-10.6)
[2025-08-27 06:40] LABS: Hemoglobin 8.3 g/dL (13.5-16.0)
[2025-08-27 06:42] LABS: Alanine Aminotransferase 14 U/L (10-49); Albumin, Serum 3.2 gm/dL (3.4-4.8); Albumin/Globulin Ratio 0.7 (1.2-2.2); Alkaline Phosphatase 131 U/L (46-116); Anion Gap 10 (7-16); Aspartate Amino Transferase 19 U/L (0-34); BUN/Creatinine Ratio 26 Ratio (12-20); Bilirubin,Total 0.6 mg/dL (0.3-1.2); Blood Urea Nitrogen 18 mg/dL (9-23); Calcium 9.0 mg/dL (8.3-10.6); Calcium (Corrected) 9.6 mg/dL (8.5-10.1); Carbon Dioxide 21.9 mMol/L (20.0-31.0); Chloride 112 mMol/L (98-107); Creatinine (Component) 0.7 mg/dL (0.6-1.3); Estimated Creatinine Clearance 119.0 mL/min (>60); Globulin 4.3 gm/dL (2.3-3.5); Glucose 173 mg/dL (74-106); Magnesium 2.2 mg/dL (1.6-2.6); Osmolality,Calculated 292 (275-295); Phosphorous 3.2 mg/dL (2.4-5.1); Potassium 3.8 mMol/L (3.4-5.1); Sodium 144 mMol/L (136-145); Total Protein 7.5 gm/dL (5.7-8.2); eGFR > 60 See Note
--- NOTE | 2025-08-27 08:51 | PC.SS ---
MONITOR AND STORAGE BIN TENDER contacted [facility] staff, Paula ; to confirm that facility will need to notify [facility] prior to patient's return. [facility] will need to authorize patient's transition to facility. MONITOR AND STORAGE BIN TENDER submitted updated clinicals for facility staff to review. Updated clinicals submitted via [employer] fax . [facility] staff will inform MONITOR AND STORAGE BIN TENDER once [facility] approval is granted. MONITOR AND STORAGE BIN TENDER notified charge nurse, resident and bedside nurse.
--- NOTE | 2025-08-27 09:04 | PC.SS ---
Updated clinicals submitted on [employer] [facility].
[2025-08-27] MEDS: BALSAM PERU/CASTOR OIL (Venelex) 60 GM TUBE TOP ×2 (09:14→21:52)
[2025-08-27] MEDS: SIMETHICONE 80 MG CHEW GT ×2 (09:15→21:39)
[2025-08-27] MEDS: GABAPENTIN 300 MG CAPSULE 600 MG GT ×2 (09:15→21:39)
[2025-08-27] MEDS: APIXABAN 2.5 MG TABLET PO ×2 (09:15→21:38)
[2025-08-27] MEDS: MULTIVITAMINS TABLET 1 TAB NG (09:15)
[2025-08-27] MEDS: ZINC SULFATE 220 MG CAPSULE NG (09:16)
[2025-08-27] MEDS: CEFEPIME INJ 1 GM in SODIUM CHLORIDE 0.9% (Popper) 50 ML IV ×2 (09:18→21:38)
[2025-08-27] MEDS: INSULIN DEGLUDEC 5 UNIT/0.05 ML (PER 5 UNITS) 10 UNIT SC (09:40)
[2025-08-27 11:21] LABS: Procalcitonin 0.19 ng/ml (0.0-0.49)
--- NOTE | 2025-08-27 12:26 | ESPR_ITS ---
<Statement entered by Michael Youngblood MD - 08/27/25 17:59> Patient was seen and examined at the bedside. Patient is currently pending on the SNF placement. Later in the evening, patient was noted to have tachycardia heart rate in 120s and desaturation to 85 improved later to 94% on its own with soft blood pressure therefore we will follow-up with repeat chest x-ray, bedside blood glucose, CBC, CMP and lactic acid. Although white count was slightly uptrending today Pro-Tevin came negative and patient was afebrile. Will closely monitor for now. I discussed and supervised with the pr internship physician who took care of this patient. I personally saw and examined the patient. I agree with most of the assessment and plan. Disclaimer: Despite multiple revisions, due to the dictation software being used, the document bellow may not be free of grammatical errors including phonetic/typographic errors. However, this does not deter from our commitment to providing health care in the patient's best interest in mind. Plan of care discussed with attending Physician Dr. Brad Youngblood MD PGY-3 Documentation for date of: 08/27/25 Subjective Subjective Interval history: No overnight events. Patient was examined at bedside; they appear A&Ox0 (baseline: nonverbal) and in NAD. Vitals/labs today significant for RR 30s, HR 110s, SpO2 90% on 30 L HFNC on 40% FiO2, WBC 10.7->12.4, Hgb 8.7->8.3. Physical exam was non-contributory. Patient had been medically cleared since 08/26 but had not been able to be discharged due to pending SNF placement. However, concerns by patient's nurse regarding his tachycardic HR in the 120s, SpO2 dropping to 85, and BP in the 100/60s later in the day prompted repeat CXR, vitals, bedside blood glucose, CBC, CMP, and a lactate to be ordered. When this casualty underwriter went to go examine the patient, his BP had improved to around 114/74 and SpO2 went back to around 94% although heart rate remained in the 120s. Lung raymond were clear and patient did not seem acutely distressed (but did not obey commands to assess for eye tracking). Although WBC has slightly uptrended today, patient remains afebrile. Will continue to monitor for now. Exam Vital Signs Temp Pulse Resp BP Pulse Ox O2 Del Method FiO2 96.9 F 96 20 120/68 98 Mechanical Ventilation 30 08/27/25 04:00 08/27/25 10:14 08/27/25 07:10 08/27/25 10:14 08/27/25 10:14 08/22/25 04:45 08/27/25 12:00 Narrative Exam GEN: Somnolent, does not track (per previous note, patient has been alert and able to track objects with his eyes and blink once for yes and twice for no earlier in this admission). Does not seem to be in distress. On mechanical ventilation VC. HEENT: NC/AC, PERRLA, oral mucosa moist, neck supple CVS: RRR, S1-S2 present, no murmurs appreciated RESP: Good air entry bilaterally, transmitted sound from the tracheostomy was heard in both lungs. No signs of respiratory distress. GI: Slightly tense and mildly distended, seemingly non tender, NBS MSK: Unable to move any extremities, spastic deformity of the right leg SKIN: Skin exfoliation of the right leg. Trace edema. JUNIOR WEB DEVELOPER: Unable to assess cranial nerves or sensory due to patient's chronic condition. Objective Labs 09/03/25 05:17 09/04/25 05:25 Labs: Laboratory Results - last 24 hr 08/27/25 05:46 WBC 12.4 H RBC 3.23 L Hgb 8.3 L Hct 27.2 L MCV 84 MCH 25.7 MCHC 30.5 L RDW Std Deviation 56.8 H Plt Count 394 Neut % (Auto) 77 Lymph % (Auto) 14 [place] % (Auto) 5 Eos % (Auto) 3 Baso % (Auto) 0 Neut # (Auto) 9.6 H Lymph # (Auto) 1.7 [place] # (Auto) 0.6 Eos # (Auto) 0.4 Baso # (Auto) 0.0 Immature Gran # (Auto) 0.14 H Absolute Nucleated RBC 0.04 H Immature Gran % 1 H Nucleated RBC % 0 Sodium 144 Potassium 3.8 Chloride 112 H Carbon Dioxide 21.9 Anion Gap 10 BUN 18 Creatinine 0.7 Estim Creat Clear Calc 119.0 eGFR > 60 BUN/Creatinine Ratio 26 H Glucose 173 H Calculated Osmolality 292 Calcium 9.0 Corrected Calcium 9.6 Phosphorus 3.2 Magnesium 2.2 Total Bilirubin 0.6 AST 19 ALT 14 Alkaline Phosphatase 131 H Total Protein 7.5 Albumin 3.2 L Globulin 4.3 H Albumin/Globulin Ratio 0.7 L Procalcitonin 0.19 ABG Interpretation ABG results: 08/19/25 08/19/25 20:08 22:17 ABG pH 7.23 L 7.38 D ABG pCO2 47 36 D ABG pO2 85 140 H D ABG HCO3 20 21 ABG O2 Saturation 95 100 H ABG Base Excess -8 L -4 L Quality Measures Quality Measures sepsis Current suspected stage: ruled out Possible source: pulmonary Blood cultures ordered: yes Antibiotic ordered: Yes Advance care planning discussed with:: patient Assessment & Plan Assessment Current Active Medications: Generic Name Dose Route Start Last Admin Trade Name Freq PRN Reason Stop Dose Admin Acetaminophen 650 mg 08/19/25 15:10 Acetaminophen 325 Mg Tablet PO 09/18/25 15:09 Q6H PRN Fever >100.4 Acetaminophen 650 mg 08/19/25 15:15 Acetaminophen 325 Mg Tablet PO 09/18/25 15:14 Q6H PRN PAIN SCALE 1-3 (mild Apixaban 2.5 mg 08/20/25 21:00 08/27/25 09:15 Apixaban 2.5 Mg Tablet PO 09/19/25 20:59 2.5 mg BID IMANI Administration Balsam Michael/Hollis Oil 0 gm 08/20/25 21:00 08/27/25 09:14 Balsam [place]is Oil (Venelex) 60 Gm Tube TOP 09/19/25 20:59 1 applicatio BID IMANI Administration Dextrose 25 ml 08/21/25 00:25 08/23/25 21:46 Dextrose 50%-Water Inj 50 Ml Syringe IV 09/20/25 00:24 25 ml Q15MIN PRN Administration BG 50-70 responsive npo pt Dextrose 50 ml 08/21/25 00:25 Dextrose 50%-Water Inj 50 Ml Syringe IV 09/20/25 00:24 Q15MIN PRN BG <50 OR BG <70 & pt unresponsive Diphenhydramine HCl 25 mg 08/19/25 17:55 Diphenhydramine Elix 25 Mg/10 Ml Udc GT 09/18/25 17:01 Q4H PRN Allergic Symptoms Gabapentin 600 mg 08/19/25 21:00 08/27/25 09:15 Gabapentin 300 Mg Capsule GT 09/18/25 20:59 600 mg BID IMANI Administration Glucagon 1 mg 08/21/25 00:25 Glucagon Inj 1 Mg Vial IM Q15MIN PRN BG <70, and no IV access Guaifenesin 100 mg 08/22/25 14:00 08/27/25 05:09 Guaifenesin Syrup 200 Mg/10 Ml Udc GT 09/21/25 13:59 100 mg TID [facility] Administration Protocol Cefepime HCl 1 gm/ Sodium 50 mls @ 100 mls/hr 08/22/25 21:00 08/27/25 09:18 Chloride IV 08/29/25 20:59 100 mls/hr Q12HR [facility] Administration Insulin Degludec 10 unit 08/22/25 09:00 08/27/25 09:40 Insulin Degludec 5 Unit/0.05 Ml (Per 5 Units) SC 09/21/25 08:59 10 unit QDAY [facility] Administration Insulin Human Lispro 2 unit 08/22/25 00:00 08/22/25 05:08 Insulin Lispro (Admelog) 1 Unit/0.01 Ml Unit MN 09/21/25 00:00 2 unit On Hold: 08/22/25 08:28 Q6HR [facility] Administration Insulin Human Lispro 0 unit 08/24/25 12:00 08/27/25 05:12 Insulin Lispro (Admelog) 1 Unit/0.01 Ml Unit MN 09/23/25 11:59 Not Given Q6HR [facility] Protocol Ipratropium [place] 0.5 mg 08/19/25 17:04 Ipratropium Rt 0.5 Mg/ 2.5 Ml Nebu INH 09/18/25 17:03 Q4H PRN SHORTNESS OF BREATH OR WHEEZE Labetalol HCl 10 mg 08/25/25 11:20 Labetalol Inj 5 Mg/Ml Vial 4 Ml IVP 09/24/25 11:29 Q10MIN PRN hypertension, SBP >160 Midodrine 10 mg 08/19/25 22:00 08/25/25 05:18 Midodrine 5 Mg Tablet GT 09/18/25 21:59 Not Given On Hold: 08/25/25 07:28 TID [facility] Multivitamins 1 tab 08/20/25 09:15 08/27/25 09:15 Multivitamins Tablet NG 09/19/25 09:14 1 tab QDAY IMANI Administration Pantoprazole Sodium 40 mg 08/27/25 09:00 08/27/25 09:16 Pantoprazole Inj 40 Mg Vial IVP 09/26/25 08:59 40 mg QDAY IMANI Administration Pharmacy Consult 1 each 08/20/25 10:23 Pharmacy Renal Dose Adjustment 1 Ea XX 09/19/25 10:22 PRN PRN CONSULT Protocol Simethicone 80 mg 08/21/25 21:00 08/27/25 09:15 Simethicone 80 Mg Chew GT 09/20/25 20:59 80 mg BID IMANI Administration Zinc Sulfate 220 mg 08/20/25 09:15 08/27/25 09:16 Zinc Sulfate 220 Mg Capsule NG 09/19/25 09:14 220 mg QDAY IMANI Administration Plan Mr. Kwadwo Sanchez is a 80 year old male w/ an extensive past medical history consisting of 2x CVA, hypoxic respiratory failure s/p tracheostomy, HTN, T2DM, Sacral ulcers, vertebral osteomyelitis, s/p PEG tube, chronic german catheterization and multiple DVT's coming in for altered mental status and tachycardia. Admitted to ICU s/p code blue and has since been downgraded to medicine for further management of sepsis 2/2 pneumonia complicated by potential gastrointestinal bleeding pending further workup. #Sepsis, resolved #Ventilation associated pneumonia #Bilateral pleural Effusions Tracheostomy mechanical ventilation dependent, Fever, Leukocytosis Hx of admissions for pneumonia, pseudomonas + Differential diagnosis = ventilator-associated pneumonias vs community-acquired pneumonia vs other CT Chest 08/19 Bilateral Pleural Effusions s/p code blue --> ICU admission for vasopressor support and transfusion --> back to medicine for further management 08/19 12 Blood cultures Enterobacter cloacae, Proteus mirabilis -Possible contamination, to follow up with lab 08/19 sputum trachea = Pseudomona aeruginosa Rx: -Cefepime 1 g IV BID [08/20 - 08/30] -Midodrine 10mg GT TID RRx: -(08/27) Due to concerns by patient's nurse regarding his tachycardic HR in the 120s, SpO2 dropping to 85, and BP in the 100/60s later in the day prompted repeat CXR, vitals, bedside blood glucose, CBC, CMP, and a lactate to be ordered. When this casualty underwriter went to go examine the patient, his BP had improved to around 114/74 and SpO2 went back to around 94% although heart rate remained in the 120s. Lung raymond were clear and patient did not seem acutely distressed (but did not obey commands to assess for eye tracking). Although WBC has slightly uptrended today, patient remains afebrile. Will continue to monitor for now. #Bacteremia 08/19 09/07 Blood cultures Enterobacter cloacae, Proteus mirabilis, 1 bottle, could be contamination. However given the patient's condition and the severity of the sepsis we will treat as true bacteremia. Rx: -Cefepime as above -We will switch the patient's to cefuroxime PO if discharged early to finish 10 days of antibiotics #Gastrointestinal bleeding #Anemia, normocytic baseline Hgb appears to be 8/9 Noted hx of gastrointestinal bleed, unknown record of last BM w/ mandie blood Acute drop in Hgb 5.6 from 7.0 08/22; transfused 2U PRBC EGD was done on 25 August 2005 showed gastritis, duodenitis. Hemoglobin remains stable FOBT negative 08/24 Plan ? Start the patient on Protonix IV 40 mg daily ? 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 Langford 10/08 chronic respiratory failure Has not been able to wean off trach -Continue trach ventilator -Respiratory Therapy to follow -Duonebs q4h PRN for SoB #Nutrition #PEG-tube Dependence Hx of PEG tube dependence s/p stroke in 2021 -Nutrition following, recommendations as needed #DVT Hx of Bilateral Femoral DVT's diagnosed 05/2025 Previous talks about IVC filter placement; per conversation with , Mr. Sanchez was transferred to [place] to get IVC filter but it was never done -To follow up again on IVC filter placement -DVT prophylaxis = Eliquis 2.5 PO BID(peg tube) #HTN Admission BP 99/64 Fluid bolus given in ID -Holding home antihypertensives in the setting of hypovolemia #T2DM -ISS Degludec 10U QDay Lispro 2 U SC q6H Sugar Checks Q4Hr #Sacral Ulcer Wound(s) Hx of sacral ulcer wounds -Wound nursing management #Hyperlipidemia -Restarted Atorvastatin 20mg q24h s/p resolution of elevated LFT's 2/ hypovolemic shock, sepsis #Allergies Hx of angioedema w/ NYLA, ARB-Angiotensin receptor antagonists Hx of hives, itching, rash - heat vs other -Avoid use for management of BP medication #Neuropathy Hx of bilateral neuropathy -Restarted home Gabapentin 600mg BID #Constipation -Restarted home dose of Lactulose 10gm/15mL q24 -Restarted home regimen Milk of Magnesia 400mg/5mL - give if no BM for 2 days #Cerebral Vascular Accident #Stroke #Quadrapalegia Stroke(s) in 2021, since then has had: Tracheostomy, PEG tube dependence Last documented event of stroke = 08/19 CT Head no evidence of hemorrhagic stroke -Continued management of above conditions with corresponding therapies/medications Hospital management: Disposition: DC to SNF as soon as bed is available Fluids: none Diet: PEG tube feeds Lines: PIV DVT prophylaxis: Eliquis CODE STATUS: full code I have examined the patient and conferred with my attending, Dr. Muñiz, and my senior resident, Dr. Youngblood, regarding them. Neo Salinas DO PGY-1 Internal Medicine Attending Provider Attestation/Addendum I have examined the patient, reviewed labs and imaging findings, discussed the case with the resident(s), and reviewed entered orders. I agree with the plan of care as outlined in this note. Dr. Mary Kay MD
[2025-08-27] MEDS: INSULIN LISPRO (AdmeLOG) 1 UNIT/0.01 ML UNIT SC ×3 (13:16→23:33)
--- NOTE | 2025-08-27 14:13 | PC.RT ---
Pt transport delayed. Pt tolerating vent settings well, no respiratory distress or increased WOB noted.
--- NOTE | 2025-08-27 16:42 | XR_ITS ---
EXAMINATION: AP chest single view TECHNIQUE: Portable sitting AP chest single view Date and time: August 27, 2025, 1710 hours, comparison August 20, 2025 INDICATIONS: New onset tachycardia FINDINGS: Moderate heart failure, mild enlargement cardiac contour with prominent vascular congestion and moderate right large left pleural effusion Consider superimposed pneumonia both lungs Tracheostomy tube tip 9.6 cm above monica IMPRESSION: Moderate heart failure Consider superimposed pneumonia both lungs Moderate right large left pleural effusions
--- NOTE | 2025-08-27 17:07 | ESPR_ITS ---
Documentation for date of: 08/27/25 Subjective Subjective Interval history: Hemoglobin hematocrit 8.3 and 27.3 Exam Vital Signs Temp Pulse Resp BP Pulse Ox O2 Del Method FiO2 96.8 F 120 H 20 106/61 85 L Mechanical Ventilation 30 08/27/25 16:00 08/27/25 16:00 08/27/25 07:10 08/27/25 16:00 08/27/25 16:00 08/27/25 16:00 08/27/25 16:00 Objective Labs 08/27/25 05:46 08/27/25 05:46 Labs: Laboratory Results - last 24 hr 08/27/25 05:46 WBC 12.4 H RBC 3.23 L Hgb 8.3 L Hct 27.2 L MCV 84 MCH 25.7 MCHC 30.5 L RDW Std Deviation 56.8 H Plt Count 394 Neut % (Auto) 77 Lymph % (Auto) 14 [place] % (Auto) 5 Eos % (Auto) 3 Baso % (Auto) 0 Neut # (Auto) 9.6 H Lymph # (Auto) 1.7 [place] # (Auto) 0.6 Eos # (Auto) 0.4 Baso # (Auto) 0.0 Immature Gran # (Auto) 0.14 H Absolute Nucleated RBC 0.04 H Immature Gran % 1 H Nucleated RBC % 0 Sodium 144 Potassium 3.8 Chloride 112 H Carbon Dioxide 21.9 Anion Gap 10 BUN 18 Creatinine 0.7 Estim Creat Clear Calc 119.0 eGFR > 60 BUN/Creatinine Ratio 26 H Glucose 173 H Calculated Osmolality 292 Calcium 9.0 Corrected Calcium 9.6 Phosphorus 3.2 Magnesium 2.2 Total Bilirubin 0.6 AST 19 ALT 14 Alkaline Phosphatase 131 H Total Protein 7.5 Albumin 3.2 L Globulin 4.3 H Albumin/Globulin Ratio 0.7 L Procalcitonin 0.19 Impressions Impression: Gastritis Anemia of blood loss Plan Continue current management ABG Interpretation ABG results: 08/19/25 08/19/25 20:08 22:17 ABG pH 7.23 L 7.38 D ABG pCO2 47 36 D ABG pO2 85 140 H D ABG HCO3 20 21 ABG O2 Saturation 95 100 H ABG Base Excess -8 L -4 L Assessment & Plan A&P Narrative Chronic anemia with Hemoccult negative stool as of 08/24/2025 although presenting hemoglobin hematocrit on 08/22/2025 was 5.6 and 18.2 Like to monitor and continue to monitor CBC No signs of any active bleeding at the moment Will reevaluate the patient tomorrow morning to see if she will benefit from an upper endoscopic evaluation prior to discharge Will follow the patient Time Spent With Patient Time: Total time spent is greater than 50% in coordination of care (as documented) at patient's floor/unit and/or counseling patient:
[2025-08-27 17:26] LABS: Lactate (Lactic Acid) 2.8 mMol/L (0.4-2.0)
[2025-08-27 17:30] LABS: Basophils # (Auto) 0.0 Thou/mm3 (0.0-0.2); Basophils % (Auto) 0 % (0-2.5); Eosinophils # (Auto) 0.1 Thou/mm3 (0.0-0.5); Eosinophils % (Auto) 1 % (0-10); Hematocrit 33.5 % (41.0-53.0); Hemoglobin 10.2 g/dL (13.5-16.0); Immature Granulocytes Auto 0.24 Thou/mm3 (0.00-0.00); Lymphocytes # (Auto) 1.5 Thou/mm3 (1.0-4.8); Lymphocytes % (Auto) 8 % (10-50); Mean Corpuscular HGB Conc 30.4 g/dl (31.0-37.0); Mean Corpuscular Hemoglobin 25.6 pg (25.0-35.0); Mean Corpuscular Volume 84 fL (80-100); Monocytes # (Auto) 1.2 Thou/mm3 (0.0-0.8); Monocytes % (Auto) 7 % (0-12); Neutrophils # (Auto) 14.5 Thou/mm3 (1.8-7.7); Neutrophils % (Auto) 83 % (37-80); Nucleated Red Blood Cell # 0.09 Thou/mm3 (0.00-0.00); Nucleated Red Blood Cell % 1 /100 WBC (0); Platelet Count 392 Thou/mm3 (140-440); RDW Standard Deviation 58.2 fL (35.1-43.9); Red Blood Count 3.98 Miln/mm3 (4.50-5.90); White Blood Count 17.6 Thou/mm3 (3.8-10.6)
[2025-08-27 18:02] LABS: Alanine Aminotransferase 91 U/L (10-49); Albumin, Serum 3.6 gm/dL (3.4-4.8); Albumin/Globulin Ratio 0.8 (1.2-2.2); Alkaline Phosphatase 550 U/L (46-116); Anion Gap 13 (7-16); Aspartate Amino Transferase 229 U/L (0-34); BUN/Creatinine Ratio 24 Ratio (12-20); Bilirubin,Total 2.2 mg/dL (0.3-1.2); Blood Urea Nitrogen 17 mg/dL (9-23); Calcium 9.0 mg/dL (8.3-10.6); Calcium (Corrected) 9.3 mg/dL (8.5-10.1); Carbon Dioxide 20.4 mMol/L (20.0-31.0); Chloride 111 mMol/L (98-107); Creatinine (Component) 0.7 mg/dL (0.6-1.3); Estimated Creatinine Clearance 119.0 mL/min (>60); Globulin 4.5 gm/dL (2.3-3.5); Glucose 198 mg/dL (74-106); Osmolality,Calculated 294 (275-295); Potassium 4.2 mMol/L (3.4-5.1); Sodium 144 mMol/L (136-145); Total Protein 8.1 gm/dL (5.7-8.2); eGFR > 60 See Note
[2025-08-27] MEDS: RINGERS LACTATED 500 ML 500 ML 999 ML IV (18:28)
--- NOTE | 2025-08-27 19:25 | PC.NURSE ---
at 1630, dr apodaca notified of pt HR at 120 and trending up, no fever, and oxygen requirements increasing, RT at bedside checking cuff leak
[2025-08-27] MEDS: Vancomycin Inj 1,500 MG in SODIUM CHLORIDE 0.9% 500 ML 500 ML 200 MG IV (19:31)
[2025-08-27 20:23] LABS: Reflex Lactate? Y
[2025-08-27 21:41] LABS: Lactate (Lactic Acid) 3.4 mMol/L (0.4-2.0)
[2025-08-28] VITALS (13 sets, daily range): BP systolic 109–153; BP diastolic 66–89; PULSE 98–120; RESP 12–27; TEMP 36.1–37; O2SAT 97–100; BMI 34.0
[2025-08-28 00:36] LABS: Reflex Lactate? Y
[2025-08-28 01:11] LABS: Lactic Acid, 3 HR 2.5 mMol/L (0.4-2.0)
[2025-08-28] MEDS: RINGERS LACTATED 1000 ML 1,000 ML 120 ML IV (02:31)
[2025-08-28] MEDS: guaiFENesin SYRUP 200 MG/10 ML UDC 100 MG GT ×3 (06:03→21:21)
[2025-08-28] MEDS: INSULIN LISPRO (AdmeLOG) 1 UNIT/0.01 ML UNIT SC ×4 (06:04→23:39)
[2025-08-28 06:06] LABS: Lactate (Lactic Acid) 1.9 mMol/L (0.4-2.0)
[2025-08-28 06:10] LABS: Basophils # (Auto) 0.0 Thou/mm3 (0.0-0.2); Basophils % (Auto) 0 % (0-2.5); Eosinophils # (Auto) 0.3 Thou/mm3 (0.0-0.5); Eosinophils % (Auto) 2 % (0-10); Hematocrit 29.2 % (41.0-53.0); Hemoglobin 9.0 g/dL (13.5-16.0); Immature Granulocytes Auto 0.13 Thou/mm3 (0.00-0.00); Lymphocytes # (Auto) 1.1 Thou/mm3 (1.0-4.8); Lymphocytes % (Auto) 7 % (10-50); Mean Corpuscular HGB Conc 30.8 g/dl (31.0-37.0); Mean Corpuscular Hemoglobin 25.7 pg (25.0-35.0); Mean Corpuscular Volume 83 fL (80-100); Monocytes # (Auto) 0.9 Thou/mm3 (0.0-0.8); Monocytes % (Auto) 5 % (0-12); Neutrophils # (Auto) 14.3 Thou/mm3 (1.8-7.7); Neutrophils % (Auto) 86 % (37-80); Nucleated Red Blood Cell # 0.04 Thou/mm3 (0.00-0.00); Nucleated Red Blood Cell % 0 /100 WBC (0); Platelet Count 396 Thou/mm3 (140-440); RDW Standard Deviation 56.7 fL (35.1-43.9); Red Blood Count 3.50 Miln/mm3 (4.50-5.90); White Blood Count 16.7 Thou/mm3 (3.8-10.6)
[2025-08-28 06:57] LABS: Alanine Aminotransferase 125 U/L (10-49); Albumin, Serum 3.3 gm/dL (3.4-4.8); Albumin/Globulin Ratio 0.8 (1.2-2.2); Alkaline Phosphatase 521 U/L (46-116); Anion Gap 12 (7-16); Aspartate Amino Transferase 230 U/L (0-34); BUN/Creatinine Ratio 25 Ratio (12-20); Bilirubin,Total 4.0 mg/dL (0.3-1.2); Blood Urea Nitrogen 20 mg/dL (9-23); Calcium 8.8 mg/dL (8.3-10.6); Calcium (Corrected) 9.4 mg/dL (8.5-10.1); Carbon Dioxide 20.3 mMol/L (20.0-31.0); Chloride 111 mMol/L (98-107); Creatinine (Component) 0.8 mg/dL (0.6-1.3); Estimated Creatinine Clearance 104.8 mL/min (>60); Globulin 4.3 gm/dL (2.3-3.5); Glucose 217 mg/dL (74-106); Magnesium 2.1 mg/dL (1.6-2.6); Osmolality,Calculated 294 (275-295); Phosphorous 3.0 mg/dL (2.4-5.1); Potassium 4.0 mMol/L (3.4-5.1); Sodium 143 mMol/L (136-145); Total Protein 7.6 gm/dL (5.7-8.2); eGFR > 60 See Note
--- NOTE | 2025-08-28 07:02 | XR_ITS ---
Examination: Abdomen sonogram, Limited Date and time of exam: 08/28/2025 at 7:46 a.m. CLINICAL INDICATION: Elevated bilirubin and liver function studies Technique: Real-time beatty scale transabdominal sonographic images of the upper abdomen obtained. Findings: There are multiple echogenic stones in the gallbladder which create significant distal acoustic shadowing. The gallbladder wall appears normal, the common bile duct appears normal measuring 0.4 cm. The pancreas is not well seen at all is obscured by bowel gas. The length of the right lobe of the liver measures measures 18.1 cm, and this in its overall appearance suggests probable hepatomegaly there is diffuse mild increased echogenicity suggesting fatty infiltration or hepatocellular disease the directional color flow within the portal veins and hepatic veins is normal. Inferior vena cava appears all right. No ascites is seen. IMPRESSION: 1. Several gallstones are seen in the gallbladder. Gallbladder otherwise appears all right. 2 suspect slight enlargement of the liver, there is mild lobulated contour of the liver surface, and mild diffuse increased echogenicity as noted above. 3 no other abnormalities are seen
[2025-08-28] MEDS: metroNIDAZOLE/NS 500 MG IVPB 500 MG/100 ML BAG 200 MG IV (08:33)
[2025-08-28] MEDS: GABAPENTIN 300 MG CAPSULE 600 MG GT ×2 (08:46→21:22)
[2025-08-28] MEDS: APIXABAN 2.5 MG TABLET PO ×2 (08:46→21:22)
[2025-08-28] MEDS: ZINC SULFATE 220 MG CAPSULE NG (08:46)
[2025-08-28] MEDS: MULTIVITAMINS TABLET 1 TAB NG (08:46)
[2025-08-28] MEDS: INSULIN DEGLUDEC 5 UNIT/0.05 ML (PER 5 UNITS) 10 UNIT SC (08:47)
[2025-08-28] MEDS: SIMETHICONE 80 MG CHEW GT ×2 (08:47→21:21)
[2025-08-28] MEDS: BALSAM PERU/CASTOR OIL (Venelex) 60 GM TUBE TOP ×2 (08:50→21:22)
[2025-08-28] MEDS: CEFEPIME INJ 1 GM in SODIUM CHLORIDE 0.9% (Popper) 50 ML IV (09:28)
--- NOTE | 2025-08-28 09:56 | XR_ITS ---
Examination: Abdomen AP single view Technique: AP portable supine abdomen, single view Exam date and time: August 28, 2025, 10:26 a.m. INDICATIONS: Onset abdominal distention today FINDINGS: Moderate air and stool throughout the colon Severe osteopenia No obstruction Left common femoral central line No free air IMPRESSION: Moderate air and stool throughout the colon No obstruction
[2025-08-28] MEDS: VANCOMYCIN/WATER 1GM IVPB 200 ML IV (10:39)
--- NOTE | 2025-08-28 11:03 | PD.IMPROG ---
Documentation for date of: 08/28/25 Subjective Subjective Interval history: Slight drop in hemoglobin hematocrit from 10.2 and 33.5-9.0 and 29.9 Exam Vital Signs Temp Pulse Resp BP Pulse Ox O2 Del Method FiO2 97.9 F 110 H 27 H 153/89 H 100 Mechanical Ventilation 40 08/28/25 08:00 08/28/25 08:00 08/28/25 08:00 08/28/25 08:00 08/28/25 08:00 08/28/25 08:00 08/28/25 07:12 Objective Labs 08/28/25 06:00 08/28/25 06:00 Labs: Laboratory Results - last 24 hr 08/27/25 08/27/25 08/27/25 05:46 17:04 20:45 WBC 17.6 H D RBC 3.98 L Hgb 10.2 L D Hct 33.5 L MCV 84 MCH 25.6 MCHC 30.4 L RDW Std Deviation 58.2 H Plt Count 392 Neut % (Auto) 83 H Lymph % (Auto) 8 L [place] % (Auto) 7 Eos % (Auto) 1 Baso % (Auto) 0 Neut # (Auto) 14.5 H Lymph # (Auto) 1.5 [place] # (Auto) 1.2 H Eos # (Auto) 0.1 Baso # (Auto) 0.0 Immature Gran # (Auto) 0.24 H Absolute Nucleated RBC 0.09 H Immature Gran % 1 H Nucleated RBC % 1 H Sodium 144 Potassium 4.2 Chloride 111 H Carbon Dioxide 20.4 Anion Gap 13 BUN 17 Creatinine 0.7 Estim Creat Clear Calc 119.0 eGFR > 60 BUN/Creatinine Ratio 24 H Glucose 198 H Calculated Osmolality 294 Lactic Acid 2.8 H 3.4 H Calcium 9.0 Corrected Calcium 9.3 Phosphorus Magnesium Total Bilirubin 2.2 H D AST 229 H ALT 91 H Alkaline Phosphatase 550 H D Total Protein 8.1 Albumin 3.6 Globulin 4.5 H Albumin/Globulin Ratio 0.8 L Procalcitonin 0.19 08/28/25 08/28/25 00:57 06:00 WBC 16.7 H RBC 3.50 L Hgb 9.0 L Hct 29.2 L MCV 83 MCH 25.7 MCHC 30.8 L RDW Std Deviation 56.7 H Plt Count 396 Neut % (Auto) 86 H Lymph % (Auto) 7 L [place] % (Auto) 5 Eos % (Auto) 2 Baso % (Auto) 0 Neut # (Auto) 14.3 H Lymph # (Auto) 1.1 [place] # (Auto) 0.9 H Eos # (Auto) 0.3 Baso # (Auto) 0.0 Immature Gran # (Auto) 0.13 H Absolute Nucleated RBC 0.04 H Immature Gran % 1 H Nucleated RBC % 0 Sodium 143 Potassium 4.0 Chloride 111 H Carbon Dioxide 20.3 Anion Gap 12 BUN 20 Creatinine 0.8 Estim Creat Clear Calc 104.8 eGFR > 60 BUN/Creatinine Ratio 25 H Glucose 217 H Calculated Osmolality 294 Lactic Acid 2.5 H 1.9 Calcium 8.8 Corrected Calcium 9.4 Phosphorus 3.0 Magnesium 2.1 Total Bilirubin 4.0 H D AST 230 H ALT 125 H Alkaline Phosphatase 521 H D Total Protein 7.6 Albumin 3.3 L Globulin 4.3 H Albumin/Globulin Ratio 0.8 L Procalcitonin Impressions Impression: Gastritis Anemia multifactorial Plan Continue to monitor CBC ABG Interpretation ABG results: 08/19/25 08/19/25 20:08 22:17 ABG pH 7.23 L 7.38 D ABG pCO2 47 36 D ABG pO2 85 140 H D ABG HCO3 20 21 ABG O2 Saturation 95 100 H ABG Base Excess -8 L -4 L Assessment & Plan A&P Narrative Chronic anemia with Hemoccult negative stool as of 08/24/2025 although presenting hemoglobin hematocrit on 08/22/2025 was 5.6 and 18.2 Like to monitor and continue to monitor CBC No signs of any active bleeding at the moment Will reevaluate the patient tomorrow morning to see if she will benefit from an upper endoscopic evaluation prior to discharge Will follow the patient Time Spent With Patient Time: Total time spent is greater than 50% in coordination of care (as documented) at patient's floor/unit and/or counseling patient:
[2025-08-28] MEDS: AZTREONAM INJ 2,000 MG in SODIUM CHLORIDE 0.9% (POP) 100 ML 100 MG IV ×2 (12:12→21:22)
--- NOTE | 2025-08-28 16:26 | ESPR_ITS ---
<Statement entered by Tee Diallo MD - 09/01/25 12:56> I reviewed above note and agree with findings and plans. I have also personally examined the patient with medicine team and went over assessment and plan with medical team including sports team marketing intern and resident physician. <Statement entered by Michael Youngblood MD - 08/28/25 18:37> Patient was seen and examined at the bedside. Patient is AOx3 but was noted to have abdominal distention and pain. Labs showed elevated LFTs, alp and T bili. Antibiotics were changed [cefepime and Flagyl were discontinued and aztreonam was started along with continuation of vancomycin] due to elevation in liver enzymes including alk phos and T. bili. Midodrine was discontinued. Liver ultrasound was performed which showed multiple gallstones without CBD dilation and KUB showed stool throughout colon therefore mineral oil enema was administered. All labs and orders were reviewed. I discussed and supervised with the sports team marketing intern physician who took care of this patient. I personally saw and examined the patient. I agree with most of the assessment and plan. Disclaimer: Despite multiple revisions, due to the dictation software being used, the document bellow may not be free of grammatical errors including phonetic/typographic errors. However, this does not deter from our commitment to providing health care in the patient's best interest in mind. Plan of care discussed with attending Physician Dr. Brad Youngblood MD PGY-3 Documentation for date of: 08/28/25 Subjective Subjective Interval history: No overnight events. Patient was examined at bedside; they appear A&Ox3 but noted to have abdominal distention and pain. Vitals/labs today significant for BP 153/89, HR 110, RR 27, WBC 12.4->16.7, hemoglobin 10.2->9.0, glucose 217, lactic acid 3.4->1.9, total bilirubin 0.6->4.0, AST 19->230, ALT 14->125, ALP 131->521. Physical exam Yesterday, patient had new onset tachycardic heart rate in the 120s along with hypoxia and new hypotension which prompted many labs to be ordered. Today, patient has new leukocytosis, lactic acidosis, hyperbilirubinemia, transaminitis, and elevated alkaline phosphatase which was concerning for bile duct obstruction. A stat liver ultrasound was ordered and showed multiple gallstones but no dilation of the common bile duct. Subsequently, a KUB was ordered and showed significant stool burden for which a mineral oil enema was ordered. We will also consider halting tube feeds if enema is unsuccessful. Due to suspicion that patient's new hyperbilirubinemia and transaminitis could also be secondary to cefepime, cefepime has been discontinued. Flagyl has also been discontinued and patient has been started on aztreonam which will be taken alongside the vancomycin that was started yesterday. Midodrine has been discontinued as patient's recent blood pressures have been sufficiently high. Otherwise, patient has had his sliding scale insulin changed to correction scale 3 and will receive IV fluids as appropriate. Exam Vital Signs Temp Pulse Resp BP Pulse Ox O2 Del Method FiO2 97.2 F 109 H 17 135/79 H 99 Mechanical Ventilation 40 08/28/25 12:00 08/28/25 14:49 08/28/25 12:00 08/28/25 12:00 08/28/25 14:49 08/28/25 12:00 08/28/25 14:49 Narrative Exam GEN: Somnolent, does not track (per previous note, patient has been alert and able to track objects with his eyes and blink once for yes and twice for no earlier in this admission). Does not seem to be in distress. On mechanical ventilation VC. HEENT: NC/AC, PERRLA, oral mucosa moist, neck supple CVS: RRR, S1-S2 present, no murmurs appreciated RESP: Good air entry bilaterally, transmitted sound from the tracheostomy was heard in both lungs. No signs of respiratory distress. GI: More tense and distended than yesterday, seemingly tender, NBS MSK: Unable to move any extremities, spastic deformity of the right leg SKIN: Skin exfoliation of the right leg. Trace edema. FORCE VARIATION EQUIPMENT TENDER: Unable to assess cranial nerves or sensory due to patient's chronic condition. Objective Labs 08/28/25 06:00 08/28/25 06:00 Labs: Laboratory Results - last 24 hr 08/27/25 08/27/25 08/28/25 17:04 20:45 00:57 WBC 17.6 H D RBC 3.98 L Hgb 10.2 L D Hct 33.5 L MCV 84 MCH 25.6 MCHC 30.4 L RDW Std Deviation 58.2 H Plt Count 392 Neut % (Auto) 83 H Lymph % (Auto) 8 L [place] % (Auto) 7 Eos % (Auto) 1 Baso % (Auto) 0 Neut # (Auto) 14.5 H Lymph # (Auto) 1.5 [place] # (Auto) 1.2 H Eos # (Auto) 0.1 Baso # (Auto) 0.0 Immature Gran # (Auto) 0.24 H Absolute Nucleated RBC 0.09 H Immature Gran % 1 H Nucleated RBC % 1 H Sodium 144 Potassium 4.2 Chloride 111 H Carbon Dioxide 20.4 Anion Gap 13 BUN 17 Creatinine 0.7 Estim Creat Clear Calc 119.0 eGFR > 60 BUN/Creatinine Ratio 24 H Glucose 198 H Calculated Osmolality 294 Lactic Acid 2.8 H 3.4 H 2.5 H Calcium 9.0 Corrected Calcium 9.3 Phosphorus Magnesium Total Bilirubin 2.2 H D AST 229 H ALT 91 H Alkaline Phosphatase 550 H D Total Protein 8.1 Albumin 3.6 Globulin 4.5 H Albumin/Globulin Ratio 0.8 L 08/28/25 06:00 WBC 16.7 H RBC 3.50 L Hgb 9.0 L Hct 29.2 L MCV 83 MCH 25.7 MCHC 30.8 L RDW Std Deviation 56.7 H Plt Count 396 Neut % (Auto) 86 H Lymph % (Auto) 7 L [place] % (Auto) 5 Eos % (Auto) 2 Baso % (Auto) 0 Neut # (Auto) 14.3 H Lymph # (Auto) 1.1 [place] # (Auto) 0.9 H Eos # (Auto) 0.3 Baso # (Auto) 0.0 Immature Gran # (Auto) 0.13 H Absolute Nucleated RBC 0.04 H Immature Gran % 1 H Nucleated RBC % 0 Sodium 143 Potassium 4.0 Chloride 111 H Carbon Dioxide 20.3 Anion Gap 12 BUN 20 Creatinine 0.8 Estim Creat Clear Calc 104.8 eGFR > 60 BUN/Creatinine Ratio 25 H Glucose 217 H Calculated Osmolality 294 Lactic Acid 1.9 Calcium 8.8 Corrected Calcium 9.4 Phosphorus 3.0 Magnesium 2.1 Total Bilirubin 4.0 H D AST 230 H ALT 125 H Alkaline Phosphatase 521 H D Total Protein 7.6 Albumin 3.3 L Globulin 4.3 H Albumin/Globulin Ratio 0.8 L ABG Interpretation ABG results: 08/19/25 08/19/25 20:08 22:17 ABG pH 7.23 L 7.38 D ABG pCO2 47 36 D ABG pO2 85 140 H D ABG HCO3 20 21 ABG O2 Saturation 95 100 H ABG Base Excess -8 L -4 L Quality Measures Quality Measures sepsis Current suspected stage: ruled out Possible source: pulmonary Blood cultures ordered: yes Antibiotic ordered: Yes Advance care planning discussed with:: legal surragate Assessment & Plan Assessment Current Active Medications: Generic Name Dose Route Start Last Admin Trade Name Freq PRN Reason Stop Dose Admin Acetaminophen 650 mg 08/19/25 15:10 Acetaminophen 325 Mg Tablet PO 09/18/25 15:09 Q6H PRN Fever >100.4 Acetaminophen 650 mg 08/19/25 15:15 Acetaminophen 325 Mg Tablet PO 09/18/25 15:14 Q6H PRN PAIN SCALE 1-3 (mild Apixaban 2.5 mg 08/20/25 21:00 08/28/25 08:46 Apixaban 2.5 Mg Tablet PO 09/19/25 20:59 2.5 mg BID IMANI Administration Balsam Michael/[place] Oil 0 gm 08/20/25 21:00 08/28/25 08:50 Balsam Michael/[place] Oil (Venelex) 60 Gm Tube TOP 09/19/25 20:59 1 applicatio BID IMANI Administration Dextrose 25 ml 08/21/25 00:25 08/23/25 21:46 Dextrose 50%-Water Inj 50 Ml Syringe IV 09/20/25 00:24 25 ml Q15MIN PRN Administration BG 50-70 responsive npo pt Dextrose 50 ml 08/21/25 00:25 Dextrose 50%-Water Inj 50 Ml Syringe IV 09/20/25 00:24 Q15MIN PRN BG <50 OR BG <70 & pt unresponsive Diphenhydramine HCl 25 mg 08/19/25 17:55 Diphenhydramine Elix 25 Mg/10 Ml Udc GT 09/18/25 17:01 Q4H PRN Allergic Symptoms Gabapentin 600 mg 08/19/25 21:00 08/28/25 08:46 Gabapentin 300 Mg Capsule GT 09/18/25 20:59 600 mg BID IMANI Administration Glucagon 1 mg 08/21/25 00:25 Glucagon Inj 1 Mg Vial IM Q15MIN PRN BG <70, and no IV access Guaifenesin 100 mg 08/22/25 14:00 08/28/25 13:19 Guaifenesin Syrup 200 Mg/10 Ml Udc GT 09/21/25 13:59 100 mg TID IMANI Administration Protocol Vancomycin HCl 200 mls @ 120 mls/hr 08/28/25 10:00 08/28/25 10:39 Vancomycin/Water 1gm Ivpb IV 09/04/25 09:59 120 mls/hr QDAY@1000 IMANI Administration Protocol Aztreonam 2,000 mg/ Sodium 100 mls @ 100 mls/hr 08/28/25 11:00 08/28/25 12:12 Chloride IV 09/04/25 10:59 100 mls/hr Q8HR IMANI Administration Insulin Degludec 10 unit 08/22/25 09:00 08/28/25 08:47 Insulin Degludec 5 Unit/0.05 Ml (Per 5 Units) SC 09/21/25 08:59 10 unit QDAY IMANI Administration Insulin Human Lispro 2 unit 08/22/25 00:00 08/22/25 05:08 Insulin Lispro (Admelog) 1 Unit/0.01 Ml Unit SC 09/21/25 00:00 2 unit On Hold: 08/22/25 08:28 Q6HR IMANI Administration Insulin Human Lispro 0 unit 08/24/25 12:00 08/28/25 12:41 Insulin Lispro (Admelog) 1 Unit/0.01 Ml Unit SC 09/23/25 11:59 4 unit Q6HR IMANI Administration Protocol Ipratropium [place] 0.5 mg 08/19/25 17:04 Ipratropium Rt 0.5 Mg/ 2.5 Ml Nebu INH 09/18/25 17:03 Q4H PRN SHORTNESS OF BREATH OR WHEEZE Labetalol HCl 10 mg 08/25/25 11:20 Labetalol Inj 5 Mg/Ml Vial 4 Ml IVP 09/24/25 11:29 Q10MIN PRN hypertension, SBP >160 Multivitamins 1 tab 08/20/25 09:15 08/28/25 08:46 Multivitamins Tablet NG 09/19/25 09:14 1 tab QDAY IMANI Administration Pantoprazole Sodium 40 mg 08/27/25 09:00 08/28/25 08:46 Pantoprazole Inj 40 Mg Vial IVP 09/26/25 08:59 40 mg QDAY IMANI Administration Pharmacy Consult 1 each 08/20/25 10:23 Pharmacy Renal Dose Adjustment 1 Ea XX 09/19/25 10:22 PRN PRN CONSULT Protocol Pharmacy Consult 1 each 08/28/25 08:14 Vancomycin Pharmacy To Dose 1 Each Each IV 09/26/25 18:14 QDAY PRN PROTOCOL Simethicone 80 mg 08/21/25 21:00 08/28/25 08:47 Simethicone 80 Mg Chew GT 09/20/25 20:59 80 mg BID IMANI Administration Zinc Sulfate 220 mg 08/20/25 09:15 08/28/25 08:46 Zinc Sulfate 220 Mg Capsule NG 09/19/25 09:14 220 mg QDAY IMANI Administration Plan Mr. Kwadwo Sanchez is a 80 year old male w/ an extensive past medical history consisting of 2x CVA, hypoxic respiratory failure s/p tracheostomy, HTN, T2DM, Sacral ulcers, vertebral osteomyelitis, s/p PEG tube, chronic german catheterization and multiple DVT's coming in for altered mental status and tachycardia. Admitted to ICU s/p code blue and has since been downgraded to medicine for further management of sepsis 2/2 pneumonia complicated by potential gastrointestinal bleeding pending further workup. #Sepsis, resolved #Ventilatior-associated pneumonia #Bilateral pleural effusions Tracheostomy mechanical ventilation dependent, Fever, Leukocytosis Hx of admissions for pneumonia, Pseudomonas + Differential diagnosis = ventilator-associated pneumonias vs community-acquired pneumonia vs other CT Chest 08/19 Bilateral Pleural Effusions s/p code blue --> ICU admission for vasopressor support and transfusion --> back to medicine for further management 08/19 09/07 Blood cultures Enterobacter cloacae, Proteus mirabilis Possible contamination, to follow up with lab 08/19 sputum trachea = Pseudomonas aeruginosa Rx: ? Aztreonam 2 mg IV every 8 hours [08/28 - 09/04] ? Vancomycin IV daily [08/27 - 09/04] ? s/p Cefepime 1 g IV twice daily [08/20 - 08/28] (stopped due to 08/28 concerns for hyperbilirubinemia and transaminitis) ? s/p Flagyl 500 mg every 6 hours [08/28 - 08/28] #Hyperbilirubinemia #Transaminitis #Elevated alkaline phosphatase #Lactic acidosis #Leukocytosis On 08/28 patient was noted to have new leukocytosis, lactic acidosis, hyperbilirubinemia, transaminitis, and elevated alkaline phosphatase concerning for bile duct obstruction in the setting of increasing abdominal distention and apparent pain Currently suspect that the cause of these new abnormal labs is adverse medication effect from cefepime Dx: ? Liver ultrasound ordered, showed multiple gallstones but no dilation of the common bile duct ? KUB ordered, showed significant stool burden Rx: ? Discontinued cefepime and Flagyl and started aztreonam alongside vancomycin ? Mineral oil enema ordered, may need to consider halting tube feeds if unsuccessful in alleviating patient's significant stool burden #Bacteremia 08/19 09/07 Blood cultures Enterobacter cloacae, Proteus mirabilis, 1 bottle, could be contamination. However given the patient's condition and the severity of the sepsis we will treat as true bacteremia. Rx: ? Antibiotics as above #Gastrointestinal bleeding #Anemia, normocytic baseline Hgb appears to be 8/9 Noted hx of gastrointestinal bleed, unknown record of last BM w/ mandie blood Acute drop in Hgb 5.6 from 7.0 08/22; transfused 2U PRBC EGD was done on 25 August 2005 showed gastritis, duodenitis. Hemoglobin remains stable FOBT negative 08/24 Plan ? Start the patient on Protonix IV 40 mg daily ? 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 Langford 10/08 chronic respiratory failure Has not been able to wean off trach -Continue trach ventilator -Respiratory Therapy to follow -Duonebs q4h PRN for SoB #Nutrition #PEG-tube Dependence Hx of PEG tube dependence s/p stroke in 2021 -Nutrition following, recommendations as needed #DVT Hx of Bilateral Femoral DVT's diagnosed 05/2025 Previous talks about IVC filter placement; per conversation with , Mr. Sanchez was transferred to [place] to get IVC filter but it was never done -To follow up again on IVC filter placement -DVT prophylaxis = Eliquis 2.5 PO BID(peg tube) #HTN Admission BP 99/64 Fluid bolus given in ID -Holding home antihypertensives in the setting of hypovolemia #T2DM -ISS (correction scale 3) Degludec 10U QDay Lispro 2 U SC q6H Sugar Checks Q4Hr #Sacral Ulcer Wound(s) Hx of sacral ulcer wounds -Wound nursing management #Hyperlipidemia -Restarted Atorvastatin 20mg q24h s/p resolution of elevated LFT's 2/2 hypovolemic shock, sepsis #Allergies Hx of angioedema w/ NYLA, ARB-Angiotensin receptor antagonists Hx of hives, itching, rash - heat vs other -Avoid use for management of BP medication #Neuropathy Hx of bilateral neuropathy -Restarted home Gabapentin 600mg BID #Constipation -Restarted home dose of Lactulose 10gm/15mL q24 -Restarted home regimen Milk of Magnesia 400mg/5mL - give if no BM for 2 days #Cerebral Vascular Accident #Stroke #Quadraplegia Stroke(s) in 2021, since then has had: Tracheostomy, PEG tube dependence Last documented event of stroke = 08/19 CT Head no evidence of hemorrhagic stroke -Continued management of above conditions with corresponding therapies/medications Hospital management: Disposition: Telemetry, managing newly abnormal hyperbilirubinemia, transaminitis, elevated alkaline phosphatase, and lactic acidosis Diet: PEG tube feeds DVT Prophylaxis: Eliquis CODE STATUS: Full Code I have examined the patient and conferred with my attending, Dr. Diallo, and my senior resident, Dr. Youngblood, regarding them. Neo Salinas, DO PGY-1 Internal Medicine
[2025-08-29] VITALS (14 sets, daily range): BP systolic 96–170; BP diastolic 58–96; PULSE 36–123; RESP 18–23; TEMP 36.2–37.2; O2SAT 46–100; BMI 36.1
[2025-08-29] MEDS: AZTREONAM INJ 2,000 MG in SODIUM CHLORIDE 0.9% (POP) 100 ML 100 MG IV ×3 (05:15→21:01)
[2025-08-29] MEDS: guaiFENesin SYRUP 200 MG/10 ML UDC 100 MG GT ×3 (05:15→21:01)
[2025-08-29] MEDS: INSULIN LISPRO (AdmeLOG) 1 UNIT/0.01 ML UNIT SC (05:21)
[2025-08-29 05:44] LABS: Basophils # (Auto) 0.0 Thou/mm3 (0.0-0.2); Basophils % (Auto) 0 % (0-2.5); Eosinophils # (Auto) 0.4 Thou/mm3 (0.0-0.5); Eosinophils % (Auto) 3 % (0-10); Hematocrit 25.7 % (41.0-53.0); Immature Granulocytes Auto 0.10 Thou/mm3 (0.00-0.00); Lymphocytes # (Auto) 1.6 Thou/mm3 (1.0-4.8); Lymphocytes % (Auto) 13 % (10-50); Mean Corpuscular HGB Conc 31.1 g/dl (31.0-37.0); Mean Corpuscular Hemoglobin 26.3 pg (25.0-35.0); Mean Corpuscular Volume 85 fL (80-100); Monocytes # (Auto) 1.0 Thou/mm3 (0.0-0.8); Monocytes % (Auto) 8 % (0-12); Neutrophils # (Auto) 9.6 Thou/mm3 (1.8-7.7); Neutrophils % (Auto) 76 % (37-80); Nucleated Red Blood Cell # 0.03 Thou/mm3 (0.00-0.00); Nucleated Red Blood Cell % 0 /100 WBC (0); Platelet Count 358 Thou/mm3 (140-440); RDW Standard Deviation 57.9 fL (35.1-43.9); Red Blood Count 3.04 Miln/mm3 (4.50-5.90); White Blood Count 12.6 Thou/mm3 (3.8-10.6)
[2025-08-29 05:51] LABS: Hemoglobin 8.0 g/dL (13.5-16.0)
[2025-08-29 06:18] LABS: Alanine Aminotransferase 134 U/L (10-49); Albumin, Serum 3.0 gm/dL (3.4-4.8); Albumin/Globulin Ratio 0.7 (1.2-2.2); Alkaline Phosphatase 477 U/L (46-116); Anion Gap 11 (7-16); Aspartate Amino Transferase 200 U/L (0-34); BUN/Creatinine Ratio 39 Ratio (12-20); Bilirubin,Total 4.5 mg/dL (0.3-1.2); Blood Urea Nitrogen 27 mg/dL (9-23); Calcium 9.2 mg/dL (8.3-10.6); Calcium (Corrected) 10.0 mg/dL (8.5-10.1); Carbon Dioxide 19.8 mMol/L (20.0-31.0); Chloride 110 mMol/L (98-107); Creatinine (Component) 0.7 mg/dL (0.6-1.3); Estimated Creatinine Clearance 123.6 mL/min (>60); Globulin 4.4 gm/dL (2.3-3.5); Glucose 226 mg/dL (74-106); Magnesium 2.1 mg/dL (1.6-2.6); Osmolality,Calculated 293 (275-295); Phosphorous 2.9 mg/dL (2.4-5.1); Potassium 4.3 mMol/L (3.4-5.1); Sodium 141 mMol/L (136-145); Total Protein 7.4 gm/dL (5.7-8.2); eGFR > 60 See Note
[2025-08-29] MEDS: CITRIC ACID/SODIUM CITR 15 ML UDC (BICITRA) 30 ML GT (09:04)
[2025-08-29] MEDS: APIXABAN 2.5 MG TABLET PO ×2 (09:04→20:56)
[2025-08-29] MEDS: SIMETHICONE 80 MG CHEW GT ×2 (09:04→20:57)
[2025-08-29] MEDS: MULTIVITAMINS TABLET 1 TAB NG (09:04)
[2025-08-29] MEDS: ZINC SULFATE 220 MG CAPSULE NG (09:04)
[2025-08-29] MEDS: BALSAM PERU/CASTOR OIL (Venelex) 60 GM TUBE TOP ×2 (09:05→20:56)
[2025-08-29] MEDS: GABAPENTIN 300 MG CAPSULE 600 MG GT (09:05)
[2025-08-29] MEDS: INSULIN DEGLUDEC 5 UNIT/0.05 ML (PER 5 UNITS) 15 UNIT SC (09:07)
--- NOTE | 2025-08-29 09:35 | XR_ITS ---
AP portable upright chest film 08/29/2025 at 9:51 a.m. Comparison study 08/27/2025 CLINICAL HISTORY: Worsening shortness of breath and altered mental status, history of sepsis and pneumonia and pericardial effusion FINDINGS: A tracheostomy tube is present in good position. There is mild but definite tubular narrowing of the trachea just above the [place], and the same is true for the left mainstem bronchus, and possibly the origin of the right mainstem bronchus these findings represent a change from the previous chest film, there is no evidence of any mass lesion surrounding this area in the mediastinum. There is a large amount of fluid density surrounding the the right hilar region, which appears to relate to a major pleural effusion on the right, there is also a very large pleural effusion on the left The cardiac shadow is completely obscured by the large zones of consolidation in pleural fluid bilaterally. There is dilatation of the upper lobe pulmonary veins consistent with CHF this finding is slightly definitely worse than on the last chest film. The homogeneous consolidation over the lower half of the right hemithorax has increased very significantly since the last chest film, and the pleural effusion is much larger. On the left the groundglass density opacification of the entire left lower lobe with some visible air bronchograms is unchanged, as is the very large pleural effusion Interestingly on the previous chest film there was diffuse narrowing of the left lower lobe bronchus, that is completely opacified on today's study IMPRESSION: 1. The right lower lobe and right middle lobe consolidation and/or atelectasis is significantly worse than on the prior film, and the right pleural effusion is significantly larger 2 the extensive consolidation throughout the entire left lower lobe and the left is unchanged, the pleural effusion on the left appears slightly larger 3 there is a potentially significant finding and I'm not entirely sure about its etiology. There appears to be diffuse moderate narrowing of the left mainstem bronchus and origin of the right mainstem bronchus, these bronchi had a normal appearance on the previous chest film. Retrospectively the left lower lobe bronchus on the previous film showed similar diffuse narrowing 4 the pulmonary venous hypertension in the upper lung zones has increased since last film
--- NOTE | 2025-08-29 09:35 | EKG_ITS ---
[facility] Test Date: 2025-08-29 Pat Name: KIMI NI [facility] Male Homoeopath: JOSE MANUEL : 1945 Requested By: Santa Schaeffer Order Number: [id number] Reading MD: Santa Schaeffer Measurements Intervals Cullen Rate: 119 P: 32 IA: 161 QRS: 9 QRSD: 87 T: 52 QT: 431 QTc: 607 Interpretive Statements SINUS TACHYCARDIA LOW QRS VOLTAGE IN PRECORDIAL LEADS NONSPECIFIC T-WAVE ABNORMALITY ABNORMAL RHYTHM ECG Compared to ECG 08/20/2025 18:17:53 No significant changes /store/S0/[id number].pdf
--- NOTE | 2025-08-29 09:38 | XR_ITS ---
Examination: CT brain head without contrast. 2-D sagittal coronal reconstructions Date and time of exam: 08/29/2025 at 3:40 p.m. CTDI: vol (mGy): 54.3 DLP: (mGycm): 1097 point Comparison is made with the previous CT of 08/19/2025 Technique: Multiple CT axial sections of the brain have been obtained, 5 mm slice thickness. Contrast has not been administered. 2-D sagittal, coronal reconstructions have been obtained Low dose protocols were performed. One or more of the following dose reduction techniques were used; automated exposure control, adjustment of the mA and/or KV according to patient size, use of iterative reconstruction technique. Findings: There is markedly abnormal dilatation of the extra-axial space over the cerebral hemispheres and regional to the sylvian cisterns and anterior temporal lobes. There is also significant abnormal dilatation of the ventricular system also consistent with prominent atrophy. There is extensive atrophy of most all of the right temporal lobe, this clearly relates to an old remote fairly extensive cerebral infarct. There is major abnormal decreased attenuation involving the periventricular and subcortical white matter, right much greater than the left. On the right side in the posterior right frontal lobe this is associated with major cortical thinning, the appearance most consistent with an old infarct. Over the posterior parietal lobe in the right there is also locally prominent abnormal decreased attenuation in the white matter with some localized marked thinning of the overlying cortex, again this may relate to an old focus of cerebral infarction. No new findings are seen anywhere in the region of the basal ganglia, or white matter or beatty matter, hence there is nothing to suggest a recent infarct. In the posterior fossa, there is exceedingly severe generalized atrophy of the entire cerebellum bilaterally in addition there is exceedingly severe atrophy involving the entire brainstem and there is significant dilatation of the fourth ventricle. Cerebellar vermian atrophy is also seen There is fluid density opacifying much of the left maxillary sinus, the bony sinus lino are thickened indicating chronic longstanding changes in this sinus. They are stable since the last CT Impression: 1 there is very marked abnormal cerebral atrophy in this 80-year-old patient, and multiple factors related to this are discussed above. 2, there is the most severe atrophy which I have seen in over 40 years of practice, involving the right and left cerebellar hemispheres and the entire brainstem 3. There is also major atrophy in both right and left temporal lobes, anteriorly on the left, and most all of the temporal lobe on the right is atrophic, appearing to relate to an old very extensive cerebral infarct 4. The decreased attenuation in the periventricular and subcortical white matter is much more severe on the right than on the left. As indicated above, I suspect the patient has had a previous old infarct in the posterior right frontal region and a smaller old remote infarct in the right posterior parietal region
--- NOTE | 2025-08-29 09:56 | PC.SS ---
SS follow up note; Emily was called. Patient is from [facility] the [place] and will discharge back once medically cleared.
[2025-08-29 10:15] LABS: Lactate (Lactic Acid) 2.9 mMol/L (0.4-2.0)
[2025-08-29 10:20] LABS: Basophils # (Auto) 0.0 Thou/mm3 (0.0-0.2); Basophils % (Auto) 0 % (0-2.5); Eosinophils # (Auto) 0.4 Thou/mm3 (0.0-0.5); Eosinophils % (Auto) 3 % (0-10); Hematocrit 29.2 % (41.0-53.0); Hemoglobin 9.0 g/dL (13.5-16.0); Immature Granulocytes Auto 0.14 Thou/mm3 (0.00-0.00); Lymphocytes # (Auto) 2.8 Thou/mm3 (1.0-4.8); Lymphocytes % (Auto) 21 % (10-50); Mean Corpuscular HGB Conc 30.8 g/dl (31.0-37.0); Mean Corpuscular Hemoglobin 25.9 pg (25.0-35.0); Mean Corpuscular Volume 84 fL (80-100); Monocytes # (Auto) 0.8 Thou/mm3 (0.0-0.8); Monocytes % (Auto) 6 % (0-12); Neutrophils # (Auto) 8.9 Thou/mm3 (1.8-7.7); Neutrophils % (Auto) 68 % (37-80); Nucleated Red Blood Cell # 0.02 Thou/mm3 (0.00-0.00); Nucleated Red Blood Cell % 0 /100 WBC (0); Platelet Count 381 Thou/mm3 (140-440); RDW Standard Deviation 58.5 fL (35.1-43.9); Red Blood Count 3.48 Miln/mm3 (4.50-5.90); White Blood Count 13.0 Thou/mm3 (3.8-10.6)
[2025-08-29 10:42] LABS: Alanine Aminotransferase 147 U/L (10-49); Albumin, Serum 3.3 gm/dL (3.4-4.8); Albumin/Globulin Ratio 0.7 (1.2-2.2); Alkaline Phosphatase 507 U/L (46-116); Anion Gap 14 (7-16); Aspartate Amino Transferase 225 U/L (0-34); BUN/Creatinine Ratio 33 Ratio (12-20); Bilirubin,Total 4.9 mg/dL (0.3-1.2); Blood Urea Nitrogen 26 mg/dL (9-23); Calcium 9.1 mg/dL (8.3-10.6); Calcium (Corrected) 9.7 mg/dL (8.5-10.1); Carbon Dioxide 17.1 mMol/L (20.0-31.0); Chloride 111 mMol/L (98-107); Creatinine (Component) 0.8 mg/dL (0.6-1.3); Estimated Creatinine Clearance 108.1 mL/min (>60); Globulin 4.8 gm/dL (2.3-3.5); Glucose 221 mg/dL (74-106); Osmolality,Calculated 294 (275-295); Potassium 4.3 mMol/L (3.4-5.1); Sodium 142 mMol/L (136-145); Total Protein 8.1 gm/dL (5.7-8.2); eGFR > 60 See Note
[2025-08-29] MEDS: VANCOMYCIN/WATER 1GM IVPB 200 ML IV (11:10)
[2025-08-29] MEDS: LACTULOSE SYRUP 20 GM/30 ML UDC 60 GM GT (12:03)
[2025-08-29] MEDS: BUMETANIDE INJ 0.25 MG/ML VIAL 4 ML 1 MG IVP (12:03)
--- NOTE | 2025-08-29 12:11 | PD.IDPROG ---
Subjective Subjective Interval history: 80 listed as full code . finished rx for urine with zosyn 08/26 and changed to aztreonam 08/28 by primary team not interactive Exam Vital Signs Temp Pulse Resp BP Pulse Ox O2 Del Method FiO2 98.3 F 102 H 20 126/79 100 Mechanical Ventilation 35 08/29/25 08:00 08/29/25 12:03 08/29/25 08:00 08/29/25 12:03 08/29/25 10:30 08/29/25 08:00 08/29/25 10:30 Narrative Exam not interactive at 1 pm. Objective - Internal Medicine Labs 08/29/25 10:00 08/29/25 10:00 Labs: Laboratory Results - last 24 hr 08/29/25 08/29/25 05:08 10:00 WBC 12.6 H 13.0 H RBC 3.04 L 3.48 L Hgb 8.0 L 9.0 L Hct 25.7 L 29.2 L MCV 85 84 MCH 26.3 25.9 MCHC 31.1 30.8 L RDW Std Deviation 57.9 H 58.5 H Plt Count 358 D 381 Neut % (Auto) 76 68 Lymph % (Auto) 13 21 [place] % (Auto) 8 6 Eos % (Auto) 3 3 Baso % (Auto) 0 0 Neut # (Auto) 9.6 H 8.9 H Lymph # (Auto) 1.6 2.8 [place] # (Auto) 1.0 H 0.8 Eos # (Auto) 0.4 0.4 Baso # (Auto) 0.0 0.0 Immature Gran # (Auto) 0.10 H 0.14 H Absolute Nucleated RBC 0.03 H 0.02 H Immature Gran % 1 H 1 H Nucleated RBC % 0 0 Sodium 141 142 Potassium 4.3 4.3 Chloride 110 H 111 H Carbon Dioxide 19.8 L 17.1 L Anion Gap 11 14 BUN 27 H 26 H Creatinine 0.7 0.8 Estim Creat Clear Calc 123.6 108.1 eGFR > 60 > 60 BUN/Creatinine Ratio 39 H 33 H Glucose 226 H 221 H Calculated Osmolality 293 294 Lactic Acid 2.9 H Calcium 9.2 9.1 Corrected Calcium 10.0 9.7 Phosphorus 2.9 Magnesium 2.1 Total Bilirubin 4.5 H D 4.9 H AST 200 H 225 H ALT 134 H 147 H Alkaline Phosphatase 477 H D 507 H D Total Protein 7.4 8.1 Albumin 3.0 L 3.3 L Globulin 4.4 H 4.8 H Albumin/Globulin Ratio 0.7 L 0.7 L ABG Interpretation ABG results: 08/19/25 08/19/25 20:08 22:17 ABG pH 7.23 L 7.38 D ABG pCO2 47 36 D ABG pO2 85 140 H D ABG HCO3 20 21 ABG O2 Saturation 95 100 H ABG Base Excess -8 L -4 L Assessment & Plan A&P Narrative anemia, gi seeing abnormal imaging of chest if the effusion is significant then it should be drained, he is a full code or change his code status and document the discussion with decision makers. abx may be excessive. but are very popular Time Spent With Patient Time: Total time spent is greater than 50% in coordination of care (as documented) at patient's floor/unit and/or counseling patient:
--- NOTE | 2025-08-29 12:23 | ECHO_ITS ---
Patient Info Name: Kwadwo Sanchez Age: 80 years : 1945 Gender: Male Ht: 188 cm Wt: 127 kg BSA: 2.62 m2 BP: 126 / 79 mmHg HR: 103 bpm Exam Date: 08/29/2025 12:59 PM Admit Date: 08/19/2025 Site: [facility] Room Number: [id number] Patient Status: I Exam Type: CA echo doppler complete Supplier Development Manager: Brina Oquendo Ordering Physician: Michael Youngblood Study Info Indications R/O pericardial effusion - Primary Location: S2NX Left Ventricular Outflow Tract Name Value Normal LVOT 2D LVOT Diameter 2.1 cm LVOT Doppler LVOT Peak Velocity 94 cm/s LVOT Mean Gradient 1 mmHg LVOT VTI 14 cm LVOT VTI/AV VTI Ratio 0.7 LVOT Stroke Volume 48 ml Pulmonic Valve Name Value Normal PV Doppler PV Peak Velocity 69 cm/s Mitral Valve Name Value Normal MV Doppler MV Mean Gradient 2 mmHg MV Decel [place] 721 cm/s2 MV PHT 13 ms MV Area (PHT) 16.5 cm2 4.0-5.0 MV Area (Cont Eq VTI) 2.5 cm2 MV Diastolic Function MV E Peak Velocity 33 cm/s MV A Peak Velocity 64 cm/s MV E/A 0.5 MV Annular TDI MV Septal e' Velocity 4.4 cm/s MV E/e' (Septal) 7.6 MV Lateral e' Velocity 4.1 cm/s MV E/e' (Lateral) 8.0 MV e' Average 4.24 cm/s MV E/e' (Average) 7.8 Tricuspid Valve Name Value Normal TV Regurgitation Doppler TR Peak Velocity 98 cm/s Estimated PAP/RSVP RA Pressure 8 mmHg <=5 PA Systolic Pressure 12 mmHg <36 RV Systolic Pressure 12 mmHg <36 TV Annular TDI TV Lateral Johana s' Velocity 11.4 cm/s >=9.5 Aortic Valve Name Value Normal AV 2D/MM AV Cusp Sep (MM) 1.9 cm AV Doppler AV Peak Velocity 103 cm/s AV Mean Gradient 2 mmHg AV VTI 19 cm AV Area (Cont Eq VTI) 2.6 cm2 >=3.0 AV Area (Cont Eq Benton) 3.2 cm2 AV DI (Benton) 0.91 AV Regurgitation 2D LVOT Area 3.5 cm2 Ventricles Name Value Normal LV Dimensions 2D/MM IVS Diastolic Thickness (2D) 0.9 cm 0.6-1.0 LVID Diastole (2D) 4.3 cm 4.2-5.8 LVIW Diastolic Thickness (2D) 1.0 cm 0.6-1.0 LVID Systole (2D) 3.1 cm 2.5-4.0 LVOT Diameter 2.1 cm LV Mass (2D Cubed) 132.74 g 88.00-224.00 LV Mass Index (2D Cubed) 51 g/m2 49-115 Relative Wall Thickness (2D) 0.47 <=0.42 IVS/LVIW Diastolic Thickness (2D) 0.90 0.00-1.50 LV Fractional Shortening/Ejection Fraction 2D/MM LV Fractional Shortening (2D) 28 % 25-43 LV EF (2D Teichholz) 54 % RV Dimensions 2D/MM TV Lateral Johana s' Velocity 11.4 cm/s >=9.5 Atria Name Value Normal LA Dimensions LA Volume (4C A-L) 36 ml Left Ventricle Left ventricular chamber dimension is normal. Left ventricular systolic function is normal with visually estimated ejection fraction of 50-55%. There is concentric remodeling noted in the left ventricle. Left ventricular segmental wall motion is normal. There is grade I diastolic dysfunction in the left ventricle. Right Ventricle Right ventricular chamber dimension is normal. Right ventricular systolic function is normal. Left Atrium Left atrial chamber dimension is normal. Right Atrium Right atrial chamber dimension is normal. Aortic Valve The aortic valve is trileaflet. There is mild aortic valve sclerosis. There is no aortic valve stenosis with a peak velocity of 103 cm/s, mean gradient of 2 mmHg, and aortic valve area of 2.6 cm2. There is no aortic valve regurgitation. Pulmonic Valve Pulmonary valve is not well visualized. Mitral Valve The mitral valve has normal leaflets. There is no mitral valve stenosis. There is trace mitral valve regurgitation. Tricuspid Valve The tricuspid valve leaflets are normal. There is no tricuspid valve stenosis. There is trace tricuspid valve regurgitation. No pulmonary hypertension, estimated pulmonary arterial systolic pressure is 12 mmHg and systemic blood pressure of 126 mmHg in systole. Pericardium/Pleural The pericardium appears normal. There is trivial pericardial effusion with no tamponade. No pleural effusion visualized. Inferior Vena Cava Not well visualized inferior vena cava with >50% collapse upon inspiration consistent with normal right atrial pressure, 8 mmHg. Aorta The aortic measurements are indexed to age and body surface area. The aortic root at the sinus of Valsalva is not well visualized. The prox ascending aorta is not well visualized. Summary 1. Left ventricle size is normal and systolic function is normal. Estimated ejection fraction is 50-55%. There is grade I diastolic dysfunction. 2. Right ventricle chamber size is normal and systolic function is normal. Estimated RVSP is 12 mmHg. 3. There is mild aortic valve sclerosis. 4. Trace MR,TR. 5. The left atrium is normal. The right atrium is normal. 6. Not well visualized IVC with estimated RA pressure 8 mmHg. 7. Prior study from 08/19/2025. Report Signatures Finalized by Gui Meyers on 08/31/2025 10:30 AM
--- NOTE | 2025-08-29 13:12 | ESPR_ITS ---
<Statement entered by Tee Diallo MD - 09/03/25 07:58> I reviewed above note and agree with findings and plans. I have also personally examined the patient with medicine team and went over assessment and plan with medical team including internal medicine physician and resident physician. <Statement entered by Michael Youngblood MD - 08/29/25 14:37> Patient was seen and examined at the bedside. Rapid response was called for hypoxia down to 50s and bradycardia with heart rate dropping to 30s which spontaneously improved as they were changing patient's wound and tracheostomy tube got blocked. Tube feeds were held immediately. Chest x-ray showed worsening haziness and bilateral pleural effusions therefore Bumex was started 1 mg once daily. Repeat labs revealed decreased bicarb therefore amp of bicarb was given. Will follow-up on ammonia levels. Due to uptrending liver enzymes will follow-up with MRCP. Will repeat the echocardiogram to evaluate for pericardial effusion. Due to patient's confusion we will follow-up with head CT. Will likely consider performing left-sided thoracentesis due to moderate effusion on the left side. Will repeat CMP later in afternoon. All labs and orders were reviewed. I discussed and supervised with the internal medicine physician physician who took care of this patient. I personally saw and examined the patient. I agree with most of the assessment and plan. Disclaimer: Despite multiple revisions, due to the dictation software being used, the document bellow may not be free of grammatical errors including phonetic/typographic errors. However, this does not deter from our commitment to providing health care in the patient's best interest in mind. Plan of care discussed with attending Physician Dr. Brad Youngblood MD PGY-3 Documentation for date of: 08/29/25 Subjective Subjective Interval history: No overnight events. Vitals/labs today significant for WBC 16.7->12.6, hemoglobin 9.0->8.0, HCO3 20.3->19.8, blood glucose 226, T. bili 4.0->4.5, AST 230->200, ALT 134, ALP 477. Physical exam was non-contributory. Today, patient had a rapid response called at around 9:30 in the morning for hypoxia in the 50s and bradycardia in the 30s that occurred while the patient was having their wound changed. Patient spontaneously improved with only suctioning; it is currently believed that patient's tracheostomy tube got blocked which stimulated a vagal response leading to bradycardia. EKG, chest x- ray, head CT, and lactate were ordered immediately and, due to worsening haziness and bilateral pleural effusions, patient was given Lasix IV x 1, started on Bumex 1 mg IV daily, and had his tube feeds held. He was also given lactulose 60 mL x 1 and 1 amp of bicarbonate x 1. An echocardiogram has been ordered due to concern for possible pericardial effusion. Repeat CMP, lactate every 3 hours, ammonia, and a procalcitonin were also ordered. An order for ABG was placed but patient was a hard stick and this lab was ultimately unable to be obtained. Patient will likely benefit from a left-sided thoracentesis tomorrow in order to address the moderate left-sided pleural effusion which may be contributing to his ongoing respiratory difficulties. Additionally, patient's bilirubin continues to climb and transaminitis does not appear to be resolving, lowering suspicion of adverse medication effect 2/2 cefepime. Exam Vital Signs Temp Pulse Resp BP Pulse Ox O2 Del Method FiO2 99.0 F 102 H 20 126/79 97 Mechanical Ventilation 35 08/29/25 12:00 08/29/25 12:03 08/29/25 12:00 08/29/25 12:03 08/29/25 12:00 08/29/25 12:00 08/29/25 12:00 Narrative Exam GEN: Somnolent, does not track (per previous note, patient has been alert and able to track objects with his eyes and blink once for yes and twice for no earlier in this admission). Does not seem to be in distress. On mechanical ventilation VC. HEENT: NC/AC, PERRLA, oral mucosa moist, neck supple CVS: RRR, S1-S2 present, no murmurs appreciated RESP: Good air entry bilaterally, transmitted sound from the tracheostomy was heard in both lungs. No signs of respiratory distress. GI: More tense and distended than yesterday, seemingly tender, NBS MSK: Unable to move any extremities, spastic deformity of the right leg SKIN: Skin exfoliation of the right leg. Trace edema. 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 Objective Labs 08/29/25 10:00 08/29/25 10:00 Labs: Laboratory Results - last 24 hr 08/29/25 08/29/25 05:08 10:00 WBC 12.6 H 13.0 H RBC 3.04 L 3.48 L Hgb 8.0 L 9.0 L Hct 25.7 L 29.2 L MCV 85 84 MCH 26.3 25.9 MCHC 31.1 30.8 L RDW Std Deviation 57.9 H 58.5 H Plt Count 358 D 381 Neut % (Auto) 76 68 Lymph % (Auto) 13 21 [place] % (Auto) 8 6 Eos % (Auto) 3 3 Baso % (Auto) 0 0 Neut # (Auto) 9.6 H 8.9 H Lymph # (Auto) 1.6 2.8 [place] # (Auto) 1.0 H 0.8 Eos # (Auto) 0.4 0.4 Baso # (Auto) 0.0 0.0 Immature Gran # (Auto) 0.10 H 0.14 H Absolute Nucleated RBC 0.03 H 0.02 H Immature Gran % 1 H 1 H Nucleated RBC % 0 0 Sodium 141 142 Potassium 4.3 4.3 Chloride 110 H 111 H Carbon Dioxide 19.8 L 17.1 L Anion Gap 11 14 BUN 27 H 26 H Creatinine 0.7 0.8 Estim Creat Clear Calc 123.6 108.1 eGFR > 60 > 60 BUN/Creatinine Ratio 39 H 33 H Glucose 226 H 221 H Calculated Osmolality 293 294 Lactic Acid 2.9 H Calcium 9.2 9.1 Corrected Calcium 10.0 9.7 Phosphorus 2.9 Magnesium 2.1 Total Bilirubin 4.5 H D 4.9 H AST 200 H 225 H ALT 134 H 147 H Alkaline Phosphatase 477 H D 507 H D Total Protein 7.4 8.1 Albumin 3.0 L 3.3 L Globulin 4.4 H 4.8 H Albumin/Globulin Ratio 0.7 L 0.7 L ABG Interpretation ABG results: 08/19/25 08/19/25 20:08 22:17 ABG pH 7.23 L 7.38 D ABG pCO2 47 36 D ABG pO2 85 140 H D ABG HCO3 20 21 ABG O2 Saturation 95 100 H ABG Base Excess -8 L -4 L Quality Measures Quality Measures sepsis Current suspected stage: sepsis Possible source: pulmonary Blood cultures ordered: yes Antibiotic ordered: Yes Advance care planning discussed with:: patient Assessment & Plan Assessment Current Active Medications: Generic Name Dose Route Start Last Admin Trade Name Sandy PRN Reason Stop Dose Admin Acetaminophen 650 mg 08/19/25 15:10 Acetaminophen 325 Mg Tablet PO 09/18/25 15:09 Q6H PRN Fever >100.4 Acetaminophen 650 mg 08/19/25 15:15 Acetaminophen 325 Mg Tablet PO 09/18/25 15:14 Q6H PRN PAIN SCALE 1-3 (mild Apixaban 2.5 mg 08/20/25 21:00 08/29/25 09:04 Apixaban 2.5 Mg Tablet PO 09/19/25 20:59 2.5 mg BID IMANI Administration Balsam Martin/[place] Oil 0 gm 08/20/25 21:00 08/29/25 09:05 Balsam Michael/[place] Oil (Venelex) 60 Gm Tube TOP 09/19/25 20:59 1 applicatio BID IMANI Administration Bumetanide 1 mg 08/29/25 10:15 08/29/25 12:03 Bumetanide Inj 0.25 Mg/Ml Vial 4 Ml IVP 09/28/25 10:14 1 mg QDAY IMANI Administration Dextrose 25 ml 08/21/25 00:25 08/23/25 21:46 Dextrose 50%-Water Inj 50 Ml Syringe IV 09/20/25 00:24 25 ml Q15MIN PRN Administration BG 50-70 responsive npo pt Dextrose 50 ml 08/21/25 00:25 Dextrose 50%-Water Inj 50 Ml Syringe IV 09/20/25 00:24 Q15MIN PRN BG <50 OR BG <70 & pt unresponsive Diphenhydramine HCl 25 mg 08/19/25 17:55 Diphenhydramine Elix 25 Mg/10 Ml Udc GT 09/18/25 17:01 Q4H PRN Allergic Symptoms Gabapentin 600 mg 08/19/25 21:00 08/29/25 09:05 Gabapentin 300 Mg Capsule GT 09/18/25 20:59 600 mg On Hold: 08/29/25 09:42 BID IMANI Administration Glucagon 1 mg 08/21/25 00:25 Glucagon Inj 1 Mg Vial IM Q15MIN PRN BG <70, and no IV access Guaifenesin 100 mg 08/22/25 14:00 08/29/25 05:15 Guaifenesin Syrup 200 Mg/10 Ml Udc GT 09/21/25 13:59 100 mg TID IMANI Administration Protocol Vancomycin HCl 200 mls @ 120 mls/hr 08/28/25 10:00 08/29/25 11:10 Vancomycin/Water 1gm Ivpb IV 09/04/25 09:59 120 mls/hr QDAY@1000 IMANI Administration Protocol Aztreonam 2,000 mg/ Sodium 100 mls @ 100 mls/hr 08/28/25 11:00 08/29/25 05:15 Chloride IV 09/04/25 10:59 100 mls/hr Q8HR IMANI Administration Insulin Degludec 15 unit 08/29/25 09:00 08/29/25 09:07 Insulin Degludec 5 Unit/0.05 Ml (Per 5 Units) SC 09/28/25 08:59 15 unit QDAY IMANI Administration Insulin Human Lispro 2 unit 08/22/25 00:00 08/22/25 05:08 Insulin Lispro (Admelog) 1 Unit/0.01 Ml Unit SC 09/21/25 00:00 2 unit Q6HR IMANI Administration Insulin Human Lispro 0 unit 08/24/25 12:00 08/29/25 05:21 Insulin Lispro (Admelog) 1 Unit/0.01 Ml Unit SC 09/23/25 11:59 4 unit Q6HR IMANI Administration Protocol Ipratropium [place] 0.5 mg 08/19/25 17:04 Ipratropium Rt 0.5 Mg/ 2.5 Ml Nebu INH 09/18/25 17:03 Q4H PRN SHORTNESS OF BREATH OR WHEEZE Labetalol HCl 10 mg 08/25/25 11:20 Labetalol Inj 5 Mg/Ml Vial 4 Ml IVP 09/24/25 11:29 Q10MIN PRN hypertension, SBP >160 Multivitamins 1 tab 08/20/25 09:15 08/29/25 09:04 Multivitamins Tablet NG 09/19/25 09:14 1 tab QDAY IMANI Administration Pantoprazole Sodium 40 mg 08/27/25 09:00 08/29/25 09:05 Pantoprazole Inj 40 Mg Vial IVP 09/26/25 08:59 40 mg QDAY IMANI Administration Pharmacy Consult 1 each 08/20/25 10:23 Pharmacy Renal Dose Adjustment 1 Ea XX 09/19/25 10:22 PRN PRN CONSULT Protocol Pharmacy Consult 1 each 08/28/25 08:14 Vancomycin Pharmacy To Dose 1 Each Each IV 09/26/25 18:14 QDAY PRN PROTOCOL Simethicone 80 mg 08/21/25 21:00 08/29/25 09:04 Simethicone 80 Mg Chew GT 09/20/25 20:59 80 mg BID IMANI Administration Zinc Sulfate 220 mg 08/20/25 09:15 08/29/25 09:04 Zinc Sulfate 220 Mg Capsule NG 09/19/25 09:14 220 mg QDAY IMANI Administration Plan Mr. Kwadwo Sanchez is a 80 year old male w/ an extensive past medical history consisting of 2x CVA, hypoxic respiratory failure s/p tracheostomy, HTN, T2DM, Sacral ulcers, vertebral osteomyelitis, s/p PEG tube, chronic german catheterization and multiple DVT's coming in for altered mental status and tachycardia. Admitted to ICU s/p code blue and has since been downgraded to medicine for further management of sepsis 2/2 pneumonia complicated by potential gastrointestinal bleeding pending further workup. #Acute on chronic, hypoxic, respiratory failure, i/s/o bilateral pleural effusions #??Pericardial effusion #??Aspiration pneumonia Patient had rapid response on 08/29 for hypoxia in the 50s and bradycardia in the 30s Dx: -08/29 repeat CXR ordered, showed worsening haziness and bilateral pleural effusion -08/29 echocardiogram ordered, showed ___ -08/[address] ordered, showed ___ -ABG was ordered but could not be obtained due to patient being a hard stick -08/29 lactate, ammonia, and procalcitonin ordered, showed ___ Rx: -Lasix 40 mg IV x 1 -Bumex 1 mg IV daily -Holding tube feeds -Lactulose 60 mL x 1 -1 amp of bicarbonate x 1 -Planned for left-sided thoracentesis tomorrow of left-sided pleural effusion #Sepsis, resolved #Ventilator-associated pneumonia #Bilateral pleural effusions Tracheostomy mechanical ventilation dependent, Fever, Leukocytosis Hx of admissions for pneumonia, Pseudomonas + Differential diagnosis = ventilator-associated pneumonias vs community-acquired pneumonia vs other CT Chest 08/19 Bilateral Pleural Effusions s/p code blue --> ICU admission for vasopressor support and transfusion --> back to medicine for further management 12/14 1/2 Blood cultures Enterobacter cloacae, Proteus mirabilis Possible contamination, to follow up with lab 08/19 sputum trachea = Pseudomonas aeruginosa Rx: ? Aztreonam 2 mg IV every 8 hours [08/28 - 09/04] ? Vancomycin IV daily [08/27 - 09/04] ? s/p Cefepime 1 g IV twice daily [08/20 - 08/28] (stopped due to 08/28 concerns for hyperbilirubinemia and transaminitis) ? s/p Flagyl 500 mg every 6 hours [08/28 - 08/28] #Hyperbilirubinemia #Transaminitis #Elevated alkaline phosphatase #Lactic acidosis #Leukocytosis On 08/28 patient was noted to have new leukocytosis, lactic acidosis, hyperbilirubinemia, transaminitis, and elevated alkaline phosphatase concerning for bile duct obstruction in the setting of increasing abdominal distention and apparent pain Initially suspected that the cause of these new abnormal labs was adverse medication effect from cefepime Dx: ? Liver ultrasound ordered, showed multiple gallstones but no dilation of the common bile duct ? KUB ordered, showed significant stool burden ? MRCP ordered, showed ___ Rx: ? Discontinued cefepime and Flagyl and started aztreonam alongside vancomycin ? Mineral oil enema ordered, may need to consider halting tube feeds if unsuccessful in alleviating patient's significant stool burden #Bacteremia 08/19 09/07 Blood cultures Enterobacter cloacae, Proteus mirabilis, 1 bottle, could be contamination. However given the patient's condition and the severity of the sepsis we will treat as true bacteremia. Rx: ? Antibiotics as above #Gastrointestinal bleeding #Anemia, normocytic baseline Hgb appears to be 8/9 Noted hx of gastrointestinal bleed, unknown record of last BM w/ mandie blood Acute drop in Hgb 5.6 from 7.0 08/22; transfused 2U PRBC EGD was done on 25 August 2005 showed gastritis, duodenitis. Hemoglobin remains stable FOBT negative 08/24 Plan ? Start the patient on Protonix IV 40 mg daily ? 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 Sanchez was transferred to [place] to get IVC filter but it was never done -To follow up again on IVC filter placement -DVT prophylaxis = Eliquis 2.5 PO BID(peg tube) #HTN Admission BP 99/64 Fluid bolus given in ID -Holding home antihypertensives in the setting of hypovolemia #T2DM -ISS (correction scale 3) Degludec 10U QDay Lispro 2 U SC q6H Sugar Checks Q4Hr #Sacral Ulcer Wound(s) Hx of sacral ulcer wounds -Wound nursing management #Hyperlipidemia -Restarted Atorvastatin 20mg q24h s/p resolution of elevated LFT's 2/2 hypovolemic shock, sepsis #Allergies Hx of angioedema w/ NYLA, ARB-Angiotensin receptor antagonists Hx of hives, itching, rash - heat vs other -Avoid use for management of BP medication #Neuropathy Hx of bilateral neuropathy -Restarted home Gabapentin 600mg BID #Constipation -Restarted home dose of Lactulose 10gm/15mL q24 -Restarted home regimen Milk of Magnesia 400mg/5mL - give if no BM for 2 days #Cerebral Vascular Accident #Stroke #Quadraplegia Stroke(s) in 2021, since then has had: Tracheostomy, PEG tube dependence Last documented event of stroke = 08/19 CT Head no evidence of hemorrhagic stroke -Continued management of above conditions with corresponding therapies/medications Hospital management: Disposition: Telemetry, managing newly abnormal hyperbilirubinemia, transaminitis, elevated alkaline phosphatase, and lactic acidosis Diet: PEG tube feeds (holding) DVT Prophylaxis: Eliquis CODE STATUS: Full Code I have examined the patient and conferred with my attending, Dr. Diallo, and my senior resident, Dr. Youngblood, regarding them. Neo Salinas, DO PGY-1 Internal Medicine
[2025-08-29 13:14] LABS: Reflex Lactate? Y
--- NOTE | 2025-08-29 14:29 | PD.RESEVENT ---
Documentation for date of: 08/29/25 Event Note Event Note: Event Note: 08/29/2025: Rapid response called sometime around 9:30 AM for hypoxia in the 50s and bradycardia in the 30s. Patient spontaneously improved with only suctioning; it is currently believed that patient's tracheostomy tube got blocked which stimulated a vagal response leading to bradycardia. EKG, chest x-ray, head CT, and lactate were ordered immediately and, due to worsening haziness and bilateral pleural effusions, patient was given Lasix IV x 1, started on Bumex 1 mg IV daily, and had his tube feeds held. He was also given lactulose 60 mL x 1 and 1 amp of bicarbonate x 1. An echocardiogram has been ordered due to concern for possible pericardial effusion. Repeat CMP, lactate every 3 hours, ammonia, and a procalcitonin were also ordered. An order for ABG was placed but patient was a hard stick and this lab was ultimately unable to be obtained. Will continue to monitor for changes. Neo Salinas, DO Internal Medicine, PGY-1
[2025-08-29] MEDS: Sodium Bicarb Inj 8.4% SYR 50 ML SYRINGE IV (14:44)
[2025-08-29 15:32] LABS: Lactic Acid, 3 HR 2.0 mMol/L (0.4-2.0)
[2025-08-29 15:59] LABS: Procalcitonin 0.39 ng/ml (0.0-0.49)
--- NOTE | 2025-08-29 17:05 | PD.IMPROG ---
Documentation for date of: 08/29/25 Subjective Subjective Interval history: Patient evaluated Hemoglobin hematocrit 9.0 and 29.2 Exam Vital Signs Temp Pulse Resp BP Pulse Ox O2 Del Method FiO2 99.0 F 100 20 126/79 100 Mechanical Ventilation 35 08/29/25 12:00 08/29/25 14:15 08/29/25 12:00 08/29/25 12:03 08/29/25 14:15 08/29/25 12:00 08/29/25 14:15 Objective Labs 08/29/25 10:00 08/29/25 10:00 Labs: Laboratory Results - last 24 hr 08/29/25 08/29/25 08/29/25 05:08 10:00 15:17 WBC 12.6 H 13.0 H RBC 3.04 L 3.48 L Hgb 8.0 L 9.0 L Hct 25.7 L 29.2 L MCV 85 84 MCH 26.3 25.9 MCHC 31.1 30.8 L RDW Std Deviation 57.9 H 58.5 H Plt Count 358 D 381 Neut % (Auto) 76 68 Lymph % (Auto) 13 21 [place] % (Auto) 8 6 Eos % (Auto) 3 3 Baso % (Auto) 0 0 Neut # (Auto) 9.6 H 8.9 H Lymph # (Auto) 1.6 2.8 [place] # (Auto) 1.0 H 0.8 Eos # (Auto) 0.4 0.4 Baso # (Auto) 0.0 0.0 Immature Gran # (Auto) 0.10 H 0.14 H Absolute Nucleated RBC 0.03 H 0.02 H Immature Gran % 1 H 1 H Nucleated RBC % 0 0 Sodium 141 142 Potassium 4.3 4.3 Chloride 110 H 111 H Carbon Dioxide 19.8 L 17.1 L Anion Gap 11 14 BUN 27 H 26 H Creatinine 0.7 0.8 Estim Creat Clear Calc 123.6 108.1 eGFR > 60 > 60 BUN/Creatinine Ratio 39 H 33 H Glucose 226 H 221 H Calculated Osmolality 293 294 Lactic Acid 2.9 H 2.0 Calcium 9.2 9.1 Corrected Calcium 10.0 9.7 Phosphorus 2.9 Magnesium 2.1 Total Bilirubin 4.5 H D 4.9 H AST 200 H 225 H ALT 134 H 147 H Alkaline Phosphatase 477 H D 507 H D Total Protein 7.4 8.1 Albumin 3.0 L 3.3 L Globulin 4.4 H 4.8 H Albumin/Globulin Ratio 0.7 L 0.7 L Procalcitonin 0.39 Impressions Impression: Gastritis Anemia blood loss Continue to monitor CBC ABG Interpretation ABG results: 08/19/25 08/19/25 20:08 22:17 ABG pH 7.23 L 7.38 D ABG pCO2 47 36 D ABG pO2 85 140 H D ABG HCO3 20 21 ABG O2 Saturation 95 100 H ABG Base Excess -8 L -4 L Assessment & Plan A&P Narrative anemia, gi seeing abnormal imaging of chest if the effusion is significant then it should be drained, he is a full code or change his code status and document the discussion with decision makers. abx may be excessive. but are very popular Time Spent With Patient Time: Total time spent is greater than 50% in coordination of care (as documented) at patient's floor/unit and/or counseling patient:
[2025-08-29 19:23] LABS: Lactate (Lactic Acid) 2.0 mMol/L (0.4-2.0)
[2025-08-29 20:41] LABS: Alanine Aminotransferase 153 U/L (10-49); Albumin, Serum 3.0 gm/dL (3.4-4.8); Albumin/Globulin Ratio 0.6 (1.2-2.2); Alkaline Phosphatase 517 U/L (46-116); Anion Gap 12 (7-16); Aspartate Amino Transferase 232 U/L (0-34); BUN/Creatinine Ratio 34 Ratio (12-20); Bilirubin,Total 4.5 mg/dL (0.3-1.2); Blood Urea Nitrogen 31 mg/dL (9-23); Calcium 9.1 mg/dL (8.3-10.6); Calcium (Corrected) 9.9 mg/dL (8.5-10.1); Carbon Dioxide 20.6 mMol/L (20.0-31.0); Chloride 111 mMol/L (98-107); Creatinine (Component) 0.9 mg/dL (0.6-1.3); Estimated Creatinine Clearance 96.1 mL/min (>60); Globulin 4.7 gm/dL (2.3-3.5); Glucose 143 mg/dL (74-106); Osmolality,Calculated 295 (275-295); Potassium 4.2 mMol/L (3.4-5.1); Sodium 144 mMol/L (136-145); Total Protein 7.7 gm/dL (5.7-8.2); eGFR > 60 See Note
[2025-08-29 23:22] LABS: Lactate (Lactic Acid) 2.3 mMol/L (0.4-2.0)
[2025-08-29 23:42] LABS: Ammonia < 10 uMol/L (11-32)
[2025-08-30] VITALS (16 sets, daily range): BP systolic 76–119; BP diastolic 39–78; PULSE 70–123; RESP 16–99; TEMP 35.9–37.9; O2SAT 93–100; BMI 36.0
[2025-08-30] MEDS: MIDODRINE 5 MG TABLET GT (00:28)
[2025-08-30 02:20] LABS: Reflex Lactate? Y
[2025-08-30 03:11] LABS: Lactic Acid, 3 HR 2.9 mMol/L (0.4-2.0)
[2025-08-30 03:12] LABS: Basophils # (Auto) 0.0 Thou/mm3 (0.0-0.2); Basophils % (Auto) 0 % (0-2.5); Eosinophils # (Auto) 0.5 Thou/mm3 (0.0-0.5); Eosinophils % (Auto) 3 % (0-10); Hematocrit 26.4 % (41.0-53.0); Immature Granulocytes Auto 0.17 Thou/mm3 (0.00-0.00); Lymphocytes # (Auto) 1.8 Thou/mm3 (1.0-4.8); Lymphocytes % (Auto) 12 % (10-50); Mean Corpuscular HGB Conc 30.7 g/dl (31.0-37.0); Mean Corpuscular Hemoglobin 25.7 pg (25.0-35.0); Mean Corpuscular Volume 84 fL (80-100); Monocytes # (Auto) 1.4 Thou/mm3 (0.0-0.8); Monocytes % (Auto) 9 % (0-12); Neutrophils # (Auto) 11.8 Thou/mm3 (1.8-7.7); Neutrophils % (Auto) 75 % (37-80); Nucleated Red Blood Cell # 0.05 Thou/mm3 (0.00-0.00); Nucleated Red Blood Cell % 0 /100 WBC (0); Platelet Count 368 Thou/mm3 (140-440); RDW Standard Deviation 58.4 fL (35.1-43.9); Red Blood Count 3.15 Miln/mm3 (4.50-5.90); White Blood Count 15.7 Thou/mm3 (3.8-10.6)
[2025-08-30 03:13] LABS: Hemoglobin 8.1 g/dL (13.5-16.0)
[2025-08-30 03:33] LABS: Alanine Aminotransferase 142 U/L (10-49); Albumin, Serum 3.0 gm/dL (3.4-4.8); Albumin/Globulin Ratio 0.7 (1.2-2.2); Alkaline Phosphatase 513 U/L (46-116); Anion Gap 16 (7-16); Aspartate Amino Transferase 201 U/L (0-34); BUN/Creatinine Ratio 32 Ratio (12-20); Bilirubin,Total 4.4 mg/dL (0.3-1.2); Blood Urea Nitrogen 32 mg/dL (9-23); Calcium 8.8 mg/dL (8.3-10.6); Calcium (Corrected) 9.6 mg/dL (8.5-10.1); Carbon Dioxide 18.0 mMol/L (20.0-31.0); Chloride 112 mMol/L (98-107); Creatinine (Component) 1.0 mg/dL (0.6-1.3); Estimated Creatinine Clearance 86.5 mL/min (>60); Globulin 4.4 gm/dL (2.3-3.5); Glucose 130 mg/dL (74-106); Magnesium 2.0 mg/dL (1.6-2.6); Osmolality,Calculated 299 (275-295); Phosphorous 3.9 mg/dL (2.4-5.1); Potassium 3.9 mMol/L (3.4-5.1); Sodium 146 mMol/L (136-145); Total Protein 7.4 gm/dL (5.7-8.2); eGFR > 60 See Note
[2025-08-30] MEDS: RINGERS LACTATED 500 ML 250 ML 999 ML IV (04:25)
[2025-08-30] MEDS: AZTREONAM INJ 2,000 MG in SODIUM CHLORIDE 0.9% (POP) 100 ML 100 MG IV ×3 (05:13→21:23)
[2025-08-30] MEDS: guaiFENesin SYRUP 200 MG/10 ML UDC 100 MG GT ×3 (05:13→21:22)
[2025-08-30 06:40] LABS: Lactate (Lactic Acid) 2.6 mMol/L (0.4-2.0)
[2025-08-30 07:26] LABS: Vancomycin,Trough 23.2 mcg/mL (5.0-10.0)
--- NOTE | 2025-08-30 07:27 | XR_ITS ---
EXAMINATION: AP chest single view TECHNIQUE: AP portable semiupright chest single view Date and time: August 30, 2025, 0744 hours, comparison August 29, 2025 INDICATIONS: Nonresponsive, hypoxic respiratory failure. FINDINGS: Cardiac contour is obscured by bilateral pneumonia and significant pleural effusions Tracheostomy tube tip 9.3 cm above moniac Prominent osteopenia IMPRESSION: Extensive bilateral pneumonia and/or pulmonary edema Significant bilateral pleural effusions Tracheal tube tip 9.3 cm above monica
[2025-08-30] MEDS: Sodium Bicarb Inj 8.4% SYR 50 ML SYRINGE IV ×2 (07:39→14:52)
[2025-08-30] MEDS: MIDODRINE 5 MG TABLET 10 MG GT ×3 (07:39→21:23)
[2025-08-30 07:48] LABS: Inspired Oxygen, FIO2 35 %
[2025-08-30 07:49] LABS: Base Excess -6 (-3-3); HCO3 19 mEq/L (20-26); O2 Saturation 98 % (91-98); PCO2 34 mmHg (32.0-48.0); PO2 83 mmHg (83-108); pH, Arterial 7.35 (7.35-7.45)
[2025-08-30 07:50] LABS: Allen Test Performed/OK; Puncture Site Left Radial
[2025-08-30 07:51] LABS: Lactate (Lactic Acid) 2.2 mMol/L (0.4-2.0)
[2025-08-30 07:57] LABS: Beta Hydroxybutyrate 0.0 mmol/L (<0.6)
[2025-08-30 08:27] LABS: Alanine Aminotransferase 133 U/L (10-49); Albumin, Serum 2.8 gm/dL (3.4-4.8); Albumin/Globulin Ratio 0.7 (1.2-2.2); Alkaline Phosphatase 505 U/L (46-116); Anion Gap 13 (7-16); Aspartate Amino Transferase 168 U/L (0-34); BUN/Creatinine Ratio 33 Ratio (12-20); Bilirubin,Total 4.2 mg/dL (0.3-1.2); Blood Urea Nitrogen 36 mg/dL (9-23); Calcium 9.0 mg/dL (8.3-10.6); Calcium (Corrected) 10.0 mg/dL (8.5-10.1); Carbon Dioxide 17.1 mMol/L (20.0-31.0); Chloride 113 mMol/L (98-107); Creatinine (Component) 1.1 mg/dL (0.6-1.3); Estimated Creatinine Clearance 78.5 mL/min (>60); Globulin 4.3 gm/dL (2.3-3.5); Glucose 95 mg/dL (74-106); Osmolality,Calculated 293 (275-295); Potassium 3.4 mMol/L (3.4-5.1); Sodium 143 mMol/L (136-145); Total Protein 7.1 gm/dL (5.7-8.2); eGFR > 60 See Note
[2025-08-30 09:39] LABS: Reflex Lactate? Y
[2025-08-30] MEDS: APIXABAN 2.5 MG TABLET PO ×2 (09:47→21:23)
[2025-08-30] MEDS: ZINC SULFATE 220 MG CAPSULE NG (09:47)
[2025-08-30] MEDS: MULTIVITAMINS TABLET 1 TAB NG (09:47)
[2025-08-30] MEDS: BALSAM PERU/CASTOR OIL (Venelex) 60 GM TUBE TOP ×2 (09:47→21:24)
[2025-08-30] MEDS: SIMETHICONE 80 MG CHEW GT ×2 (09:47→21:27)
[2025-08-30 10:47] LABS: Reflex Lactate? Y
[2025-08-30 11:20] LABS: Lactic Acid, 3 HR 2.2 mMol/L (0.4-2.0)
[2025-08-30] MEDS: RINGERS LACTATED 1000 ML 1,000 ML 75 ML IV (11:47)
--- NOTE | 2025-08-30 12:17 | PD.RESEVENT ---
Documentation for date of: 08/30/25 Event Note Event Note: Event Note: 08/30/2025: Rapid response called sometime around 7:20 AM for MAP 41. Patient seen and assessed in hospital bed; they are awake with airway/breathing/circulation intact and vitals largely stable other than BP. CMP, lactate, ABG, and CXR were ordered immediately. Of note, patient is -5 L fluid deficit since admission and his BP improved to 125/84 after he received 1 L of IV fluid. Will continue to monitor for any acute changes. Neo Salinas, DO Internal Medicine, PGY-1
--- NOTE | 2025-08-30 12:38 | XR_ITS ---
EXAMINATION: AP chest single view TECHNIQUE: AP portable semiupright chest single view Date and time: August 30, 2025, 12:49 p.m., comparison August 30, 2025 INDICATIONS: Post central line placement FINDINGS: Extensive bilateral pneumonia and/or pulmonary edema with large bilateral pleural effusions Cardiac contour is obscured by the parenchymal disease left Left internal jugular central line tip SVC satisfactory position Tracheostomy tube tip 7 cm above monica IMPRESSION: Interval left internal jugular central line tip satisfactory position, no pneumothorax
--- NOTE | 2025-08-30 13:10 | PD.RESPROC ---
PROCEDURES: Procedure Date / Time 08/30/25 1230 Procedural Time Out Time out performed: yes Procedure Narrative Procedure Narrative: Attending Attestation: I was not present at the time of procedure. 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 Patient tolerated procedure well. Adequate positioning of CVC tip and no post procedure PTX. Central Line Placement Left IJ: Indication(s): poor, or inadequate peripheral venous access Informed consent obtained: obtained from surrogate decision maker (From patient , juan manuel ) Time out done, and the following verified: correct patient, side and site, procedure, patient position and implants and/or equipment Patient placed on monitor/pulse ox: Yes Hand Hygiene: alcohol-based hand rub Max Sterile Barrier Techniques used: cap, mask, sterile gown, sterile gloves and sterile full body drape Central line prep: Chlorhexidine scrub Local anesthesia used: lidocaine 1% Amount of anesthesia used (mL): 5 Ultrasound used for placement: Yes Sterile Technique if Ultrasound used, including sterile gel: yes Central line lumen inserted: triple Post procedure: sutured in place, good blood return, all ports aspirated, flushed, capped and sterile dressing applied Patient tolerated procedure: well and no complications EBL(ml): 3 Procedure comment: A time out was performed. My hands were washed immediately prior to the procedure. I wore a surgical cap, mask with protective eyewear, full gown and sterile gloves throughout the procedure. The patient was placed at 40 degree angle, unable to tolerate Trendelenburg position due to desaturating. Patient has chronic contractures, and is unable to range the neck very much to the left, but could turn his head slightly more to the right so the Left neck was prepped using chlorhexidine scrub and draped in sterile fashion using a three quarter sheet drape and sterile towels. Skin preparation was allowed to dry prior to skin puncture. Anatomic landmarks were identified. Anesthesia was achieved over the vein using 1% lidocaine. Using real-time ultrasound, with sterile probe cover and sterile gel, the introducer needle was inserted into the vein under direct ultrasound visualization. Venous blood was withdrawn. The syringe was removed and a guidewire was advanced into the introducer needle. The guidewire was visualized in the appropriate vein by ultrasound. A small incision was made at the skin surface with a scalpel and the introducer needle was exchanged for a dilator over the guidewire. After appropriate dilation was obtained, the dilator was exchanged over the wire for an tripe lumen 20 cm central venous catheter. The wire was removed and the catheter was sutured in place. A biopatch was placed at the insertion site. A sterile op-site was placed over the catheter and biopatch. The patient tolerated the procedure without any hemodynamic compromise. At time of procedure completion, all ports aspirated and flushed properly. Post-procedure chest x-ray ordered, pending official read. Case disclosed with my Attending Dr. Matteo Conner MD PGY1 ?
--- NOTE | 2025-08-30 13:13 | ESPR_ITS ---
<Statement entered by Tee Diallo MD - 09/03/25 08:00> I reviewed above note and agree with findings and plans. I have also personally examined the patient with medicine team and went over assessment and plan with medical team including communications marketing intern and resident physician. <Statement entered by Michael Youngblood MD - 08/30/25 17:46> Patient was seen and examined at the bedside. Patient had a rapid response this morning due to hypotension with MAP of 41. Lactic acid down trended to 2.2. Patient was given 1 L bolus of LR and maintenance fluid only 1 bag along with midodrine 10 mg tablets which improved the blood pressure. Midodrine is as needed right now for blood pressure management. Chest x-ray shows extensive bilateral pleural effusion and worsening pulmonary vascular congestion. Currently MRCP is pending due to uptrending LFTs and T. bili slightly improved today.We held the Bumex due to hypotension and will give fluids. Femoral catheter was removed and new left IJ central line was placed by ICU. Nurse removed femoral catheter and will use the new central line now placed on 08/30/2025. Patient is currently holding blood pressure with midodrine therefore we will continue with that for now. Continue with IV fluids. Lactic acid continues to remain at 2.2. White count remains elevated therefore we will continue with aztreonam and vancomycin. We replaced patients' indwelling german cath due to pus around urethra. Added Repeated BMP at 6 pm to evaluate for ongoing bicarb loss from stool and need of bicarb. We gave 2 A of bicarb this morning for drop in bicarbonate. Met acidosis is likely mixed both from GI losses and declining kidney function. Tube feeds were resumed as blood sugars were around 70 later in the evening. Added nystatin cream around penile urethra. We are waiting to see echo read from guard captain. Family is updated regarding overall plan. All labs and orders were reviewed. I discussed and supervised with the communications marketing intern physician who took care of this patient. I personally saw and examined the patient. I agree with most of the assessment and plan. Disclaimer: Despite multiple revisions, due to the dictation software being used, the document bellow may not be free of grammatical errors including phonetic/typographic errors. However, this does not deter from our commitment to providing health care in the patient's best interest in mind. Plan of care discussed with attending Physician Dr. Brad Youngblood MD PGY-3 Documentation for date of: 08/30/25 Subjective Subjective Interval history: (pulled from senior resident attestation) Patient was seen and examined at the bedside. Patient had a rapid response this morning due to hypotension with MAP of 41. Lactic acid down trended to 2.2. Patient was given 1 L bolus of LR and maintenance fluid only 1 bag along with midodrine 10 mg tablets which improved the blood pressure. Midodrine is as needed right now for blood pressure management. Chest x-ray shows extensive bilateral pleural effusion and worsening pulmonary vascular congestion. Currently MRCP is pending due to uptrending LFTs and T. bili slightly improved today.We held the Bumex due to hypotension and will give fluids. Femoral catheter was removed and new left IJ central line was placed by ICU. Nurse removed femoral catheter and will use the new central line now placed on 08/30/2025. Patient is currently holding blood pressure with midodrine therefore we will continue with that for now. Continue with IV fluids. Lactic acid continues to remain at 2.2. White count remains elevated therefore we will continue with aztreonam and vancomycin. We replaced patients' indwelling german cath due to pus around urethra. Added Repeated BMP at 6 pm to evaluate for ongoing bicarb loss from stool and need of bicarb. We gave 2 A of bicarb this morning for drop in bicarbonate. Met acidosis is likely mixed both from GI losses and declining kidney function. Tube feeds were resumed as blood sugars were around 70 later in the evening. Added nystatin cream around penile urethra. We are waiting to see echo read from guard captain. Family is updated regarding overall plan. Exam Vital Signs Temp Pulse Resp BP Pulse Ox O2 Del Method O2 Flow Rate 97.4 F 90 20 103/67 98 Mechanical Ventilation 35 08/30/25 08:00 08/30/25 12:48 08/30/25 08:04 08/30/25 08:00 08/30/25 12:48 08/30/25 08:00 08/29/25 09:45 FiO2 30 08/30/25 12:48 Narrative Exam GEN: Somnolent, does not track (per previous note, patient has been alert and able to track objects with his eyes and blink once for yes and twice for no earlier in this admission). Does not seem to be in distress. On mechanical ventilation VC. HEENT: NC/AC, PERRLA, oral mucosa moist, neck supple CVS: RRR, S1-S2 present, no murmurs appreciated RESP: Good air entry bilaterally, transmitted sound from the tracheostomy was heard in both lungs. No signs of respiratory distress. GI: More tense and distended than yesterday, seemingly tender, NBS MSK: Unable to move any extremities, spastic deformity of the right leg SKIN: Skin exfoliation of the right leg. Trace edema. WIRER PASSENGER CAR: Unable to assess cranial nerves or sensory due to patient's chronic condition. Objective Labs 08/30/25 02:50 08/31/25 00:32 Labs: Laboratory Results - last 24 hr 08/29/25 08/29/25 08/29/25 15:17 18:59 23:10 WBC RBC Hgb Hct MCV MCH MCHC RDW Std Deviation Plt Count Neut % (Auto) Lymph % (Auto) [place] % (Auto) Eos % (Auto) Baso % (Auto) Neut # (Auto) Lymph # (Auto) [place] # (Auto) Eos # (Auto) Baso # (Auto) Immature Gran # (Auto) Absolute Nucleated RBC Immature Gran % Nucleated RBC % Puncture Site ABG pH ABG pCO2 ABG pO2 ABG HCO3 ABG O2 Saturation ABG Base Excess FiO2 Sodium 144 Potassium 4.2 Chloride 111 H Carbon Dioxide 20.6 Anion Gap 12 BUN 31 H Creatinine 0.9 Estim Creat Clear Calc 96.1 eGFR > 60 BUN/Creatinine Ratio 34 H Glucose 143 H D Calculated Osmolality 295 Lactic Acid 2.0 2.0 2.3 H Calcium 9.1 Corrected Calcium 9.9 Phosphorus Magnesium Total Bilirubin 4.5 H AST 232 H ALT 153 H Alkaline Phosphatase 517 H Ammonia < 10 L Total Protein 7.7 Albumin 3.0 L Globulin 4.7 H Albumin/Globulin Ratio 0.6 L Beta-Hydroxybutyrate/Acetoacetate Procalcitonin 0.39 Vancomycin Trough 08/30/25 08/30/25 08/30/25 02:50 06:10 06:15 WBC 15.7 H RBC 3.15 L Hgb 8.1 L Hct 26.4 L MCV 84 MCH 25.7 MCHC 30.7 L RDW Std Deviation 58.4 H Plt Count 368 Neut % (Auto) 75 Lymph % (Auto) 12 [place] % (Auto) 9 Eos % (Auto) 3 Baso % (Auto) 0 Neut # (Auto) 11.8 H Lymph # (Auto) 1.8 [place] # (Auto) 1.4 H Eos # (Auto) 0.5 Baso # (Auto) 0.0 Immature Gran # (Auto) 0.17 H Absolute Nucleated RBC 0.05 H Immature Gran % 1 H Nucleated RBC % 0 Puncture Site ABG pH ABG pCO2 ABG pO2 ABG HCO3 ABG O2 Saturation ABG Base Excess FiO2 Sodium 146 H Potassium 3.9 Chloride 112 H Carbon Dioxide 18.0 L Anion Gap 16 BUN 32 H Creatinine 1.0 Estim Creat Clear Calc 86.5 eGFR > 60 BUN/Creatinine Ratio 32 H Glucose 130 H Calculated Osmolality 299 H Lactic Acid 2.9 H 2.6 H Calcium 8.8 Corrected Calcium 9.6 Phosphorus 3.9 Magnesium 2.0 Total Bilirubin 4.4 H AST 201 H ALT 142 H Alkaline Phosphatase 513 H Ammonia Total Protein 7.4 Albumin 3.0 L Globulin 4.4 H Albumin/Globulin Ratio 0.7 L Beta-Hydroxybutyrate/Acetoacetate Procalcitonin Vancomycin Trough 23.2 H* 08/30/25 08/30/25 08/30/25 07:40 07:45 11:10 WBC RBC Hgb Hct MCV MCH MCHC RDW Std Deviation Plt Count Neut % (Auto) Lymph % (Auto) [place] % (Auto) Eos % (Auto) Baso % (Auto) Neut # (Auto) Lymph # (Auto) [place] # (Auto) Eos # (Auto) Baso # (Auto) Immature Gran # (Auto) Absolute Nucleated RBC Immature Gran % Nucleated RBC % Puncture Site Left Radial ABG pH 7.35 ABG pCO2 34 ABG pO2 83 ABG HCO3 19 L ABG O2 Saturation 98 ABG Base Excess -6 L FiO2 35 Sodium 143 Potassium 3.4 D Chloride 113 H Carbon Dioxide 17.1 L Anion Gap 13 BUN 36 H Creatinine 1.1 Estim Creat Clear Calc 78.5 eGFR > 60 BUN/Creatinine Ratio 33 H Glucose 95 Calculated Osmolality 293 Lactic Acid 2.2 H 2.2 H Calcium 9.0 Corrected Calcium 10.0 Phosphorus Magnesium Total Bilirubin 4.2 H AST 168 H ALT 133 H Alkaline Phosphatase 505 H Ammonia Total Protein 7.1 Albumin 2.8 L Globulin 4.3 H Albumin/Globulin Ratio 0.7 L Beta-Hydroxybutyrate/Acetoacetate 0.0 Procalcitonin Vancomycin Trough ABG Interpretation ABG results: 08/19/25 08/19/25 08/30/25 20:08 22:17 07:40 ABG pH 7.23 L 7.38 D 7.35 ABG pCO2 47 36 D 34 ABG pO2 85 140 H D 83 ABG HCO3 20 21 19 L ABG O2 Saturation 95 100 H 98 ABG Base Excess -8 L -4 L -6 L Quality Measures Quality Measures sepsis Current suspected stage: sepsis Possible source: pulmonary Blood cultures ordered: yes Antibiotic ordered: Yes Advance care planning discussed with:: patient Assessment & Plan Assessment Current Active Medications: Generic Name Dose Route Start Last Admin Trade Name Freq PRN Reason Stop Dose Admin Acetaminophen 650 mg 08/19/25 15:10 Acetaminophen 325 Mg Tablet PO 09/18/25 15:09 Q6H PRN Fever >100.4 Acetaminophen 650 mg 08/19/25 15:15 Acetaminophen 325 Mg Tablet PO 09/18/25 15:14 Q6H PRN PAIN SCALE 1-3 (mild Apixaban 2.5 mg 08/20/25 21:00 08/30/25 09:47 Apixaban 2.5 Mg Tablet PO 09/19/25 20:59 2.5 mg BID IMANI Administration Balsam Michael/[place] Oil 0 gm 08/20/25 21:00 08/30/25 09:47 Balsam Michael/[place] Oil (Venelex) 60 Gm Tube TOP 09/19/25 20:59 1 applicatio BID IMANI Administration Bumetanide 1 mg 08/29/25 10:15 08/30/25 09:48 Bumetanide Inj 0.25 Mg/Ml Vial 4 Ml IVP 09/28/25 10:14 Not Given On Hold: 08/30/25 10:32 QDAY IMANI Dextrose 25 ml 08/21/25 00:25 08/23/25 21:46 Dextrose 50%-Water Inj 50 Ml Syringe IV 09/20/25 00:24 25 ml Q15MIN PRN Administration BG 50-70 responsive npo pt Dextrose 50 ml 08/21/25 00:25 Dextrose 50%-Water Inj 50 Ml Syringe IV 09/20/25 00:24 Q15MIN PRN BG <50 OR BG <70 & pt unresponsive Diphenhydramine HCl 25 mg 08/19/25 17:55 Diphenhydramine Elix 25 Mg/10 Ml Udc GT 09/18/25 17:01 Q4H PRN Allergic Symptoms Gabapentin 600 mg 08/19/25 21:00 08/29/25 09:05 Gabapentin 300 Mg Capsule 09/18/25 20:59 600 mg On Hold: 08/29/25 09:42 BID IMANI Administration Glucagon 1 mg 08/21/25 00:25 Glucagon Inj 1 Mg Vial IM Q15MIN PRN BG <70, and no IV access Guaifenesin 100 mg 08/22/25 14:00 08/30/25 05:13 Guaifenesin Syrup 200 Mg/10 Ml Udc GT 09/21/25 13:59 100 mg TID IMANI Administration Protocol Vancomycin HCl 200 mls @ 120 mls/hr 08/28/25 10:00 08/30/25 10:07 Vancomycin/Water 1gm Ivpb IV 09/04/25 09:59 Not Given QDAY@1000 IMANI Protocol Aztreonam 2,000 mg/ Sodium 100 mls @ 100 mls/hr 08/28/25 11:00 08/30/25 05:13 Chloride IV 09/04/25 10:59 100 mls/hr Q8HR IMANI Administration Lactated Ringer's 1,000 mls @ 75 mls/hr 08/30/25 11:03 08/30/25 11:47 Lactated Ringers IV 08/31/25 00:22 75 mls/hr .[id number] IMANI Administration Insulin Degludec 15 unit 08/29/25 09:00 08/30/25 09:52 Insulin Degludec 5 Unit/0.05 Ml (Per 5 Units) SC 09/28/25 08:59 Not Given QDAY IMANI Insulin Human Lispro 2 unit 08/22/25 00:00 08/30/25 12:00 Insulin Lispro (Admelog) 1 Unit/0.01 Ml Unit SC 09/21/25 00:00 Not Given Q6HR IMANI Insulin Human Lispro 0 unit 08/24/25 12:00 08/30/25 12:00 Insulin Lispro (Admelog) 1 Unit/0.01 Ml Unit SC 09/23/25 11:59 Not Given Q6HR [facility] Protocol Ipratropium [place] 0.5 mg 08/19/25 17:04 Ipratropium Rt 0.5 Mg/ 2.5 Ml Nebu INH 09/18/25 17:03 Q4H PRN SHORTNESS OF BREATH OR WHEEZE Labetalol HCl 10 mg 08/25/25 11:20 Labetalol Inj 5 Mg/Ml Vial 4 Ml IVP 09/24/25 11:29 Q10MIN PRN hypertension, SBP >160 Midodrine 10 mg 08/30/25 07:45 08/30/25 07:39 Midodrine 5 Mg Tablet GT 09/29/25 07:44 10 mg TID IMANI Administration Multivitamins 1 tab 08/20/25 09:15 08/30/25 09:47 Multivitamins Tablet NG 09/19/25 09:14 1 tab QDAY IMANI Administration Pantoprazole Sodium 40 mg 08/27/25 09:00 08/30/25 09:47 Pantoprazole Inj 40 Mg Vial IVP 09/26/25 08:59 40 mg QDAY IMANI Administration Pharmacy Consult 1 each 08/20/25 10:23 Pharmacy Renal Dose Adjustment 1 Ea XX 09/19/25 10:22 PRN PRN CONSULT Protocol Pharmacy Consult 1 each 08/28/25 08:14 Vancomycin Pharmacy To Dose 1 Each Each IV 09/26/25 18:14 QDAY PRN PROTOCOL Simethicone 80 mg 08/21/25 21:00 08/30/25 09:47 Simethicone 80 Mg Chew GT 09/20/25 20:59 80 mg BID IMANI Administration Zinc Sulfate 220 mg 08/20/25 09:15 08/30/25 09:47 Zinc Sulfate 220 Mg Capsule NG 09/19/25 09:14 220 mg QDAY IMANI Administration Plan Mr. Kwadwo Sanchez is a 80 year old male w/ an extensive past medical history consisting of 2x CVA, hypoxic respiratory failure s/p tracheostomy, HTN, T2DM, Sacral ulcers, vertebral osteomyelitis, s/p PEG tube, chronic german catheterization and multiple DVT's coming in for altered mental status and tachycardia. Admitted to ICU s/p code blue and has since been downgraded to medicine for further management of sepsis 2/2 pneumonia complicated by potential gastrointestinal bleeding pending further workup. #Acute on chronic, hypoxic, respiratory failure, i/s/o bilateral pleural effusions #??Pericardial effusion #??Aspiration pneumonia Patient had rapid response on 08/29 for hypoxia in the 50s and bradycardia in the 30s Dx: -08/29 repeat CXR ordered, showed worsening haziness and bilateral pleural effusion -08/29 echocardiogram ordered, showed ___ -ABG was ordered but could not be obtained due to patient being a hard stick -08/29 lactate, ammonia, and procalcitonin ordered, all negative Rx: -Lasix 40 mg IV x 1 -Bumex 1 mg IV daily (HELD) -Holding tube feeds -Lactulose 60 mL x 1 -1 amp of bicarbonate x 1 -Consider left-sided thoracentesis tomorrow of left-sided pleural effusion #Sepsis, resolved #Ventilator-associated pneumonia #Bilateral pleural effusions Tracheostomy mechanical ventilation dependent, Fever, Leukocytosis Hx of admissions for pneumonia, Pseudomonas + Differential diagnosis = ventilator-associated pneumonias vs community-acquired pneumonia vs other CT Chest 08/19 Bilateral Pleural Effusions s/p code blue --> ICU admission for vasopressor support and transfusion --> back to medicine for further management 08/19 09/07 Blood cultures Enterobacter cloacae, Proteus mirabilis Possible contamination, to follow up with lab 08/19 sputum trachea = Pseudomonas aeruginosa Rx: ? Aztreonam 2 mg IV every 8 hours [08/28 - 09/04] ? Vancomycin IV daily [08/27 - 09/04] ? s/p Cefepime 1 g IV twice daily [08/20 - 08/28] (stopped due to 08/28 concerns for hyperbilirubinemia and transaminitis) ? s/p Flagyl 500 mg every 6 hours [08/28 - 08/28] #Hyperbilirubinemia #Transaminitis #Elevated alkaline phosphatase #Lactic acidosis #Leukocytosis On 08/28 patient was noted to have new leukocytosis, lactic acidosis, hyperbilirubinemia, transaminitis, and elevated alkaline phosphatase concerning for bile duct obstruction in the setting of increasing abdominal distention and apparent pain Initially suspected that the cause of these new abnormal labs was adverse medication effect from cefepime Dx: ? Liver ultrasound ordered, showed multiple gallstones but no dilation of the common bile duct ? KUB ordered, showed significant stool burden ? MRCP ordered, showed ___ Rx: ? Discontinued cefepime and Flagyl and started aztreonam alongside vancomycin ? Mineral oil enema ordered, may need to consider halting tube feeds if unsuccessful in alleviating patient's significant stool burden #Bacteremia 08/19 09/07 Blood cultures Enterobacter cloacae, Proteus mirabilis, 1 bottle, could be contamination. However given the patient's condition and the severity of the sepsis we will treat as true bacteremia. Rx: ? Antibiotics as above #Gastrointestinal bleeding #Anemia, normocytic baseline Hgb appears to be 8/9 Noted hx of gastrointestinal bleed, unknown record of last BM w/ mandie blood Acute drop in Hgb 5.6 from 7.0 08/22; transfused 2U PRBC EGD was done on 25 August 2005 showed gastritis, duodenitis. Hemoglobin remains stable FOBT negative 08/24 Plan ? Start the patient on Protonix IV 40 mg daily ? 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, sepsis due to this organism unlikely given clinical improvement on zosyn that has been narrowed down to cefepime Rx: -Indwelling German catheter was replaced on 08/30 due to pus around the urethra #Pericardial Effusion #Elevated troponin Pericardial Effusion 33mm found 08/19 CT Chest ECHO 08/19 EF ~ 40-50% Troponin 08/19 .128 -> 0.79 -> 0.464 most likely elevated due to heart strain in the setting of hypovolemic shock 2/2 sepsis; coupled with pericardial effusion w/out circulatory compromise/obstruction -per Cardiology: Nonoperative management F/U O/P #Tracheostomy #Respiratory Failure Tracheostomy [place] [address] 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 Sanchez was transferred to [place] to get IVC filter but it was never done -To follow up again on IVC filter placement -DVT prophylaxis = Eliquis 2.5 PO BID(peg tube) #Hypotension Admission BP 99/64 Rapid response called on 08/30 for MAP 41 Rx: -1 L bolus of LR and 1 L LR maintenance @ 75 cc/hr -Bumex held -Midodrine 10 mg TID PRN -Holding home antihypertensives in the setting of hypovolemia #Metabolic acidosis, likely 2/2 GI losses Rx: -Bicarbonate ampoule x 1 #T2DM -ISS (correction scale 3) Degludec 10U QDay Lispro 2 U SC q6H Sugar Checks Q4Hr #Sacral Ulcer Wound(s) Hx of sacral ulcer wounds -Wound nursing management #Hyperlipidemia -Restarted Atorvastatin 20mg q24h s/p resolution of elevated LFT's 2/2 hypovolemic shock, sepsis #Allergies Hx of angioedema w/ NYLA, ARB-Angiotensin receptor antagonists Hx of hives, itching, rash - heat vs other -Avoid use for management of BP medication #Neuropathy Hx of bilateral neuropathy -Restarted home Gabapentin 600mg BID #Constipation -Restarted home dose of Lactulose 10gm/15mL q24 -Restarted home regimen Milk of Magnesia 400mg/5mL - give if no BM for 2 days #Cerebral Vascular Accident #Stroke #Quadraplegia Stroke(s) in 2021, since then has had: Tracheostomy, PEG tube dependence Last documented event of stroke = 08/19 CT Head no evidence of hemorrhagic stroke -Continued management of above conditions with corresponding therapies/medications Hospital management: Disposition: Telemetry, managing newly abnormal hyperbilirubinemia, transaminitis, elevated alkaline phosphatase, and lactic acidosis Lines: New left IJ central line placed 08/30 German: Indwelling German catheter replaced as of 08/30 Diet: PEG tube feeds (resumed on 08/30 due to BG 74) DVT Prophylaxis: Eliquis CODE STATUS: Full Code I have examined the patient and conferred with my attending, Dr. Diallo, and my senior resident, Dr. Youngblood, regarding them. Neo Salinas, DO PGY-1 Internal Medicine
[2025-08-30] MEDS: POTASSIUM CHLORIDE 10% 20 MEQ/15 ML UDC 40 MEQ GT (14:52)
--- NOTE | 2025-08-30 16:12 | PD.IMPROG ---
Documentation for date of: 08/30/25 Subjective Subjective Interval history: Patient evaluated Hemoglobin hematocrit 8.1 and 26.4 Exam Vital Signs Temp Pulse Resp BP Pulse Ox O2 Del Method O2 Flow Rate 97.9 F 90 20 108/66 98 Mechanical Ventilation 35 08/30/25 12:00 08/30/25 14:45 08/30/25 12:00 08/30/25 14:45 08/30/25 12:48 08/30/25 12:00 08/30/25 12:00 FiO2 30 08/30/25 12:48 Objective Labs 08/30/25 02:50 08/30/25 07:45 Labs: Laboratory Results - last 24 hr 08/29/25 08/29/25 08/30/25 18:59 23:10 02:50 WBC 15.7 H RBC 3.15 L Hgb 8.1 L Hct 26.4 L MCV 84 MCH 25.7 MCHC 30.7 L RDW Std Deviation 58.4 H Plt Count 368 Neut % (Auto) 75 Lymph % (Auto) 12 [place] % (Auto) 9 Eos % (Auto) 3 Baso % (Auto) 0 Neut # (Auto) 11.8 H Lymph # (Auto) 1.8 [place] # (Auto) 1.4 H Eos # (Auto) 0.5 Baso # (Auto) 0.0 Immature Gran # (Auto) 0.17 H Absolute Nucleated RBC 0.05 H Immature Gran % 1 H Nucleated RBC % 0 Puncture Site ABG pH ABG pCO2 ABG pO2 ABG HCO3 ABG O2 Saturation ABG Base Excess FiO2 Sodium 144 146 H Potassium 4.2 3.9 Chloride 111 H 112 H Carbon Dioxide 20.6 18.0 L Anion Gap 12 16 BUN 31 H 32 H Creatinine 0.9 1.0 Estim Creat Clear Calc 96.1 86.5 eGFR > 60 > 60 BUN/Creatinine Ratio 34 H 32 H Glucose 143 H D 130 H Calculated Osmolality 295 299 H Lactic Acid 2.0 2.3 H 2.9 H Calcium 9.1 8.8 Corrected Calcium 9.9 9.6 Phosphorus 3.9 Magnesium 2.0 Total Bilirubin 4.5 H 4.4 H AST 232 H 201 H ALT 153 H 142 H Alkaline Phosphatase 517 H 513 H Ammonia < 10 L Total Protein 7.7 7.4 Albumin 3.0 L 3.0 L Globulin 4.7 H 4.4 H Albumin/Globulin Ratio 0.6 L 0.7 L Beta-Hydroxybutyrate/Acetoacetate Vancomycin Trough 08/30/25 08/30/25 08/30/25 06:10 06:15 07:40 WBC RBC Hgb Hct MCV MCH MCHC RDW Std Deviation Plt Count Neut % (Auto) Lymph % (Auto) [place] % (Auto) Eos % (Auto) Baso % (Auto) Neut # (Auto) Lymph # (Auto) [place] # (Auto) Eos # (Auto) Baso # (Auto) Immature Gran # (Auto) Absolute Nucleated RBC Immature Gran % Nucleated RBC % Puncture Site Left Radial ABG pH 7.35 ABG pCO2 34 ABG pO2 83 ABG HCO3 19 L ABG O2 Saturation 98 ABG Base Excess -6 L FiO2 35 Sodium Potassium Chloride Carbon Dioxide Anion Gap BUN Creatinine Estim Creat Clear Calc eGFR BUN/Creatinine Ratio Glucose Calculated Osmolality Lactic Acid 2.6 H Calcium Corrected Calcium Phosphorus Magnesium Total Bilirubin AST ALT Alkaline Phosphatase Ammonia Total Protein Albumin Globulin Albumin/Globulin Ratio Beta-Hydroxybutyrate/Acetoacetate Vancomycin Trough 23.2 H* 08/30/25 08/30/25 07:45 11:10 WBC RBC Hgb Hct MCV MCH MCHC RDW Std Deviation Plt Count Neut % (Auto) Lymph % (Auto) [place] % (Auto) Eos % (Auto) Baso % (Auto) Neut # (Auto) Lymph # (Auto) [place] # (Auto) Eos # (Auto) Baso # (Auto) Immature Gran # (Auto) Absolute Nucleated RBC Immature Gran % Nucleated RBC % Puncture Site ABG pH ABG pCO2 ABG pO2 ABG HCO3 ABG O2 Saturation ABG Base Excess FiO2 Sodium 143 Potassium 3.4 D Chloride 113 H Carbon Dioxide 17.1 L Anion Gap 13 BUN 36 H Creatinine 1.1 Estim Creat Clear Calc 78.5 eGFR > 60 BUN/Creatinine Ratio 33 H Glucose 95 Calculated Osmolality 293 Lactic Acid 2.2 H 2.2 H Calcium 9.0 Corrected Calcium 10.0 Phosphorus Magnesium Total Bilirubin 4.2 H AST 168 H ALT 133 H Alkaline Phosphatase 505 H Ammonia Total Protein 7.1 Albumin 2.8 L Globulin 4.3 H Albumin/Globulin Ratio 0.7 L Beta-Hydroxybutyrate/Acetoacetate 0.0 Vancomycin Trough Impressions Impression: Gastritis Anemia blood loss Continue to monitor CBC ABG Interpretation ABG results: 08/19/25 08/19/25 08/30/25 20:08 22:17 07:40 ABG pH 7.23 L 7.38 D 7.35 ABG pCO2 47 36 D 34 ABG pO2 85 140 H D 83 ABG HCO3 20 21 19 L ABG O2 Saturation 95 100 H 98 ABG Base Excess -8 L -4 L -6 L Assessment & Plan A&P Narrative anemia, gi seeing abnormal imaging of chest if the effusion is significant then it should be drained, he is a full code or change his code status and document the discussion with decision makers. abx may be excessive. but are very popular Time Spent With Patient Time: Total time spent is greater than 50% in coordination of care (as documented) at patient's floor/unit and/or counseling patient:
[2025-08-30] MEDS: ACETAMINOPHEN 325 MG TABLET 650 MG PO (17:22)
[2025-08-30 18:51] LABS: Lactate (Lactic Acid) 2.3 mMol/L (0.4-2.0)
[2025-08-30 20:03] LABS: Anion Gap 13 (7-16); BUN/Creatinine Ratio 34 Ratio (12-20); Blood Urea Nitrogen 34 mg/dL (9-23); Calcium 9.1 mg/dL (8.3-10.6); Carbon Dioxide 18.6 mMol/L (20.0-31.0); Chloride 112 mMol/L (98-107); Creatinine (Component) 1.0 mg/dL (0.6-1.3); Estimated Creatinine Clearance 86.4 mL/min (>60); Glucose 72 mg/dL (74-106); Osmolality,Calculated 293 (275-295); Potassium 4.1 mMol/L (3.4-5.1); Sodium 144 mMol/L (136-145); eGFR > 60 See Note
[2025-08-30] MEDS: NYSTATIN CR 30 GM TUBE TOP (21:27)
[2025-08-30 21:50] LABS: Reflex Lactate? Y
[2025-08-30 22:23] LABS: Lactic Acid, 3 HR 1.8 mMol/L (0.4-2.0)
[2025-08-31] VITALS (14 sets, daily range): BP systolic 100–143; BP diastolic 61–92; PULSE 68–89; RESP 18–20; TEMP 35.9–36.4; O2SAT 92–99; BMI 35.9
[2025-08-31 01:13] LABS: Albumin, Serum 2.9 gm/dL (3.4-4.8); Anion Gap 13 (7-16); BUN/Creatinine Ratio 31 Ratio (12-20); Blood Urea Nitrogen 31 mg/dL (9-23); Calcium 8.5 mg/dL (8.3-10.6); Calcium (Corrected) 9.4 mg/dL (8.5-10.1); Carbon Dioxide 19.6 mMol/L (20.0-31.0); Chloride 112 mMol/L (98-107); Creatinine (Component) 1.0 mg/dL (0.6-1.3); Estimated Creatinine Clearance 86.4 mL/min (>60); Glucose 86 mg/dL (74-106); Osmolality,Calculated 294 (275-295); Phosphorous 3.7 mg/dL (2.4-5.1); Potassium 4.3 mMol/L (3.4-5.1); Sodium 145 mMol/L (136-145); eGFR > 60 See Note
[2025-08-31] MEDS: guaiFENesin SYRUP 200 MG/10 ML UDC 100 MG GT ×3 (05:19→20:37)
[2025-08-31] MEDS: MIDODRINE 5 MG TABLET 10 MG GT ×3 (05:19→20:38)
[2025-08-31] MEDS: AZTREONAM INJ 2,000 MG in SODIUM CHLORIDE 0.9% (POP) 100 ML 100 MG IV (05:20)
[2025-08-31 06:20] LABS: Basophils # (Auto) 0.0 Thou/mm3 (0.0-0.2); Basophils % (Auto) 0 % (0-2.5); Eosinophils # (Auto) 0.9 Thou/mm3 (0.0-0.5); Eosinophils % (Auto) 8 % (0-10); Hematocrit 24.7 % (41.0-53.0); Hemoglobin 7.8 g/dL (13.5-16.0); Immature Granulocytes Auto 0.05 Thou/mm3 (0.00-0.00); Lymphocytes # (Auto) 1.6 Thou/mm3 (1.0-4.8); Lymphocytes % (Auto) 14 % (10-50); Mean Corpuscular HGB Conc 31.6 g/dl (31.0-37.0); Mean Corpuscular Hemoglobin 25.7 pg (25.0-35.0); Mean Corpuscular Volume 82 fL (80-100); Monocytes # (Auto) 0.7 Thou/mm3 (0.0-0.8); Monocytes % (Auto) 6 % (0-12); Neutrophils # (Auto) 8.1 Thou/mm3 (1.8-7.7); Neutrophils % (Auto) 71 % (37-80); Nucleated Red Blood Cell # 0.02 Thou/mm3 (0.00-0.00); Nucleated Red Blood Cell % 0 /100 WBC (0); Platelet Count 328 Thou/mm3 (140-440); RDW Standard Deviation 57.6 fL (35.1-43.9); Red Blood Count 3.03 Miln/mm3 (4.50-5.90); White Blood Count 11.3 Thou/mm3 (3.8-10.6)
[2025-08-31 07:14] LABS: Alanine Aminotransferase 108 U/L (10-49); Albumin, Serum 2.7 gm/dL (3.4-4.8); Albumin/Globulin Ratio 0.7 (1.2-2.2); Alkaline Phosphatase 492 U/L (46-116); Anion Gap 14 (7-16); Aspartate Amino Transferase 115 U/L (0-34); BUN/Creatinine Ratio 46 Ratio (12-20); Bilirubin,Total 2.4 mg/dL (0.3-1.2); Blood Urea Nitrogen 41 mg/dL (9-23); Calcium 8.4 mg/dL (8.3-10.6); Calcium (Corrected) 9.4 mg/dL (8.5-10.1); Carbon Dioxide 20.4 mMol/L (20.0-31.0); Chloride 111 mMol/L (98-107); Creatinine (Component) 0.9 mg/dL (0.6-1.3); Estimated Creatinine Clearance 95.8 mL/min (>60); Globulin 4.1 gm/dL (2.3-3.5); Glucose 104 mg/dL (74-106); Magnesium 1.9 mg/dL (1.6-2.6); Osmolality,Calculated 298 (275-295); Phosphorous 3.5 mg/dL (2.4-5.1); Potassium 4.1 mMol/L (3.4-5.1); Sodium 145 mMol/L (136-145); Total Protein 6.8 gm/dL (5.7-8.2); eGFR > 60 See Note
--- NOTE | 2025-08-31 09:36 | PD.IDPROG ---
Subjective Subjective Interval history: not clear why aztreonam chosen. pt static. Exam Vital Signs Temp Pulse Resp BP Pulse Ox O2 Del Method O2 Flow Rate 97.2 F 78 20 123/71 99 Mechanical Ventilation 35 08/31/25 08:00 08/31/25 08:00 08/31/25 08:00 08/31/25 08:00 08/31/25 08:00 08/31/25 08:00 08/31/25 04:00 FiO2 30 08/31/25 07:10 Narrative Exam limited eval today Objective - Internal Medicine Labs 08/31/25 05:50 08/31/25 05:50 Labs: Laboratory Results - last 24 hr 08/30/25 08/30/25 08/30/25 11:10 18:36 22:18 WBC RBC Hgb Hct MCV MCH MCHC RDW Std Deviation Plt Count Neut % (Auto) Lymph % (Auto) [place] % (Auto) Eos % (Auto) Baso % (Auto) Neut # (Auto) Lymph # (Auto) [place] # (Auto) Eos # (Auto) Baso # (Auto) Immature Gran # (Auto) Absolute Nucleated RBC Immature Gran % Nucleated RBC % Sodium 144 Potassium 4.1 D Chloride 112 H Carbon Dioxide 18.6 L Anion Gap 13 BUN 34 H Creatinine 1.0 Estim Creat Clear Calc 86.4 eGFR > 60 BUN/Creatinine Ratio 34 H Glucose 72 L Calculated Osmolality 293 Lactic Acid 2.2 H 2.3 H 1.8 Calcium 9.1 Corrected Calcium Phosphorus Magnesium Total Bilirubin AST ALT Alkaline Phosphatase Total Protein Albumin Globulin Albumin/Globulin Ratio 08/31/25 08/31/25 00:32 05:50 WBC 11.3 H RBC 3.03 L Hgb 7.8 L Hct 24.7 L MCV 82 MCH 25.7 MCHC 31.6 RDW Std Deviation 57.6 H Plt Count 328 D Neut % (Auto) 71 Lymph % (Auto) 14 [place] % (Auto) 6 Eos % (Auto) 8 Baso % (Auto) 0 Neut # (Auto) 8.1 H Lymph # (Auto) 1.6 [place] # (Auto) 0.7 Eos # (Auto) 0.9 H Baso # (Auto) 0.0 Immature Gran # (Auto) 0.05 H Absolute Nucleated RBC 0.02 H Immature Gran % 0 Nucleated RBC % 0 Sodium 145 145 Potassium 4.3 4.1 Chloride 112 H 111 H Carbon Dioxide 19.6 L 20.4 Anion Gap 13 14 BUN 31 H 41 H Creatinine 1.0 0.9 Estim Creat Clear Calc 86.4 95.8 eGFR > 60 > 60 BUN/Creatinine Ratio 31 H 46 H Glucose 86 104 Calculated Osmolality 294 298 H Lactic Acid Calcium 8.5 8.4 Corrected Calcium 9.4 9.4 Phosphorus 3.7 3.5 Magnesium 1.9 Total Bilirubin 2.4 H D AST 115 H ALT 108 H Alkaline Phosphatase 492 H Total Protein 6.8 Albumin 2.9 L 2.7 L Globulin 4.1 H Albumin/Globulin Ratio 0.7 L ABG Interpretation ABG results: 08/19/25 08/19/25 08/30/25 20:08 22:17 07:40 ABG pH 7.23 L 7.38 D 7.35 ABG pCO2 47 36 D 34 ABG pO2 85 140 H D 83 ABG HCO3 20 21 19 L ABG O2 Saturation 95 100 H 98 ABG Base Excess -8 L -4 L -6 L Assessment & Plan A&P Narrative anemia, gi seeing abnormal imaging of chest if the effusion is significant then it should be drained, he is a full code will change to oral cefuroxime for remainder of course. 2 more weeks ok will see again prn Time Spent With Patient Time: Total time spent is greater than 50% in coordination of care (as documented) at patient's floor/unit and/or counseling patient:
[2025-08-31] MEDS: INSULIN DEGLUDEC 5 UNIT/0.05 ML (PER 5 UNITS) 15 UNIT SC (10:15)
[2025-08-31] MEDS: ZINC SULFATE 220 MG CAPSULE NG (10:16)
[2025-08-31] MEDS: SIMETHICONE 80 MG CHEW GT ×2 (10:17→20:38)
[2025-08-31] MEDS: APIXABAN 2.5 MG TABLET PO ×2 (10:17→20:39)
[2025-08-31] MEDS: MULTIVITAMINS TABLET 1 TAB NG (10:17)
[2025-08-31] MEDS: VANCOMYCIN/WATER 1GM IVPB 200 ML IV (10:18)
[2025-08-31] MEDS: NYSTATIN CR 30 GM TUBE TOP ×2 (10:28→20:40)
[2025-08-31] MEDS: BALSAM PERU/CASTOR OIL (Venelex) 60 GM TUBE TOP ×2 (10:29→20:40)
--- NOTE | 2025-08-31 12:32 | ESPR_ITS ---
Documentation for date of: 08/31/25 Subjective Subjective Interval history: Hemoglobin hematocrit 7.8 and 24.7 Exam Vital Signs Temp Pulse Resp BP Pulse Ox O2 Del Method O2 Flow Rate 97.2 F 78 20 123/71 99 Mechanical Ventilation 35 08/31/25 08:00 08/31/25 08:00 08/31/25 08:00 08/31/25 08:00 08/31/25 08:00 08/31/25 08:00 08/31/25 04:00 FiO2 30 08/31/25 07:10 Objective Labs 08/31/25 05:50 08/31/25 05:50 Labs: Laboratory Results - last 24 hr 08/30/25 08/30/25 08/31/25 18:36 22:18 00:32 WBC RBC Hgb Hct MCV MCH MCHC RDW Std Deviation Plt Count Neut % (Auto) Lymph % (Auto) [place] % (Auto) Eos % (Auto) Baso % (Auto) Neut # (Auto) Lymph # (Auto) [place] # (Auto) Eos # (Auto) Baso # (Auto) Immature Gran # (Auto) Absolute Nucleated RBC Immature Gran % Nucleated RBC % Sodium 144 145 Potassium 4.1 D 4.3 Chloride 112 H 112 H Carbon Dioxide 18.6 L 19.6 L Anion Gap 13 13 BUN 34 H 31 H Creatinine 1.0 1.0 Estim Creat Clear Calc 86.4 86.4 eGFR > 60 > 60 BUN/Creatinine Ratio 34 H 31 H Glucose 72 L 86 Calculated Osmolality 293 294 Lactic Acid 2.3 H 1.8 Calcium 9.1 8.5 Corrected Calcium 9.4 Phosphorus 3.7 Magnesium Total Bilirubin AST ALT Alkaline Phosphatase Total Protein Albumin 2.9 L Globulin Albumin/Globulin Ratio 08/31/25 05:50 WBC 11.3 H RBC 3.03 L Hgb 7.8 L Hct 24.7 L MCV 82 MCH 25.7 MCHC 31.6 RDW Std Deviation 57.6 H Plt Count 328 D Neut % (Auto) 71 Lymph % (Auto) 14 [place] % (Auto) 6 Eos % (Auto) 8 Baso % (Auto) 0 Neut # (Auto) 8.1 H Lymph # (Auto) 1.6 [place] # (Auto) 0.7 Eos # (Auto) 0.9 H Baso # (Auto) 0.0 Immature Gran # (Auto) 0.05 H Absolute Nucleated RBC 0.02 H Immature Gran % 0 Nucleated RBC % 0 Sodium 145 Potassium 4.1 Chloride 111 H Carbon Dioxide 20.4 Anion Gap 14 BUN 41 H Creatinine 0.9 Estim Creat Clear Calc 95.8 eGFR > 60 BUN/Creatinine Ratio 46 H Glucose 104 Calculated Osmolality 298 H Lactic Acid Calcium 8.4 Corrected Calcium 9.4 Phosphorus 3.5 Magnesium 1.9 Total Bilirubin 2.4 H D AST 115 H ALT 108 H Alkaline Phosphatase 492 H Total Protein 6.8 Albumin 2.7 L Globulin 4.1 H Albumin/Globulin Ratio 0.7 L Impressions Impression: Gastritis Occult GI bleeding Continue to monitor CBC ABG Interpretation ABG results: 08/19/25 08/19/25 08/30/25 20:08 22:17 07:40 ABG pH 7.23 L 7.38 D 7.35 ABG pCO2 47 36 D 34 ABG pO2 85 140 H D 83 ABG HCO3 20 21 19 L ABG O2 Saturation 95 100 H 98 ABG Base Excess -8 L -4 L -6 L Assessment & Plan A&P Narrative anemia, gi seeing abnormal imaging of chest if the effusion is significant then it should be drained, he is a full code will change to oral cefuroxime for remainder of course. 2 more weeks ok will see again prn Time Spent With Patient Time: Total time spent is greater than 50% in coordination of care (as documented) at patient's floor/unit and/or counseling patient:
--- NOTE | 2025-08-31 13:06 | ESPR_ITS ---
<Statement entered by Vanessa Crawley MD - 09/01/25 15:18> Patient was seen and examined at bedside. I agree on the assessment and plan on this note. - Patient's plan and care discussed with my attending, Dr. Regi Crawley MD Internal Medicine PGY-3 Documentation for date of: 08/31/25 Subjective Subjective Interval history: No acute overnight events. Patient seen and evaluated at bedside. Appeared more awake compared to yesterday. WBC downtrended. Lactic acidosis resolved. Bilirubin and LFTs also improving, cancelled MRCP as likely suspect cholestasis. Will follow up repeat blood cultures. Per ID, will change to oral cefuroxime for remainder of course. Continue vanc. Exam Vital Signs Temp Pulse Resp BP Pulse Ox O2 Del Method O2 Flow Rate 97.2 F 78 20 123/71 99 Mechanical Ventilation 35 08/31/25 08:00 08/31/25 08:00 08/31/25 08:00 08/31/25 08:00 08/31/25 08:00 08/31/25 08:00 08/31/25 04:00 FiO2 30 08/31/25 07:10 Narrative Exam GEN: More awake, does not track (per previous note, patient has been alert and able to track objects with his eyes and blink once for yes and twice for no earlier in this admission). Does not seem to be in distress. On mechanical ventilation VC. HEENT: NC/AC, PERRLA, oral mucosa moist, neck supple CVS: RRR, S1-S2 present, no murmurs appreciated RESP: Good air entry bilaterally, transmitted sound from the tracheostomy was heard in both lungs. No signs of respiratory distress. GI: More tense and distended than yesterday, seemingly tender, NBS MSK: Unable to move any extremities, spastic deformity of the right leg SKIN: Skin exfoliation of the right leg. Trace edema. QUARTZ CUTTER: Unable to assess cranial nerves or sensory due to patient's chronic condition. Objective Labs 09/01/25 04:47 09/01/25 04:47 Labs: Laboratory Results - last 24 hr 08/30/25 08/30/25 08/31/25 18:36 22:18 00:32 WBC RBC Hgb Hct MCV MCH MCHC RDW Std Deviation Plt Count Neut % (Auto) Lymph % (Auto) [place] % (Auto) Eos % (Auto) Baso % (Auto) Neut # (Auto) Lymph # (Auto) [place] # (Auto) Eos # (Auto) Baso # (Auto) Immature Gran # (Auto) Absolute Nucleated RBC Immature Gran % Nucleated RBC % Sodium 144 145 Potassium 4.1 D 4.3 Chloride 112 H 112 H Carbon Dioxide 18.6 L 19.6 L Anion Gap 13 13 BUN 34 H 31 H Creatinine 1.0 1.0 Estim Creat Clear Calc 86.4 86.4 eGFR > 60 > 60 BUN/Creatinine Ratio 34 H 31 H Glucose 72 L 86 Calculated Osmolality 293 294 Lactic Acid 2.3 H 1.8 Calcium 9.1 8.5 Corrected Calcium 9.4 Phosphorus 3.7 Magnesium Total Bilirubin AST ALT Alkaline Phosphatase Total Protein Albumin 2.9 L Globulin Albumin/Globulin Ratio 08/31/25 05:50 WBC 11.3 H RBC 3.03 L Hgb 7.8 L Hct 24.7 L MCV 82 MCH 25.7 MCHC 31.6 RDW Std Deviation 57.6 H Plt Count 328 D Neut % (Auto) 71 Lymph % (Auto) 14 [place] % (Auto) 6 Eos % (Auto) 8 Baso % (Auto) 0 Neut # (Auto) 8.1 H Lymph # (Auto) 1.6 [place] # (Auto) 0.7 Eos # (Auto) 0.9 H Baso # (Auto) 0.0 Immature Gran # (Auto) 0.05 H Absolute Nucleated RBC 0.02 H Immature Gran % 0 Nucleated RBC % 0 Sodium 145 Potassium 4.1 Chloride 111 H Carbon Dioxide 20.4 Anion Gap 14 BUN 41 H Creatinine 0.9 Estim Creat Clear Calc 95.8 eGFR > 60 BUN/Creatinine Ratio 46 H Glucose 104 Calculated Osmolality 298 H Lactic Acid Calcium 8.4 Corrected Calcium 9.4 Phosphorus 3.5 Magnesium 1.9 Total Bilirubin 2.4 H D AST 115 H ALT 108 H Alkaline Phosphatase 492 H Total Protein 6.8 Albumin 2.7 L Globulin 4.1 H Albumin/Globulin Ratio 0.7 L ABG Interpretation ABG results: 08/19/25 08/19/25 08/30/25 20:08 22:17 07:40 ABG pH 7.23 L 7.38 D 7.35 ABG pCO2 47 36 D 34 ABG pO2 85 140 H D 83 ABG HCO3 20 21 19 L ABG O2 Saturation 95 100 H 98 ABG Base Excess -8 L -4 L -6 L Quality Measures Quality Measures sepsis Current suspected stage: sepsis Possible source: pulmonary Blood cultures ordered: yes Antibiotic ordered: Yes Advance care planning discussed with:: spouse Assessment & Plan Assessment Current Active Medications: Generic Name Dose Route Start Last Admin Trade Name Freq PRN Reason Stop Dose Admin Acetaminophen 650 mg 08/19/25 15:10 Acetaminophen 325 Mg Tablet PO 09/18/25 15:09 Q6H PRN Fever >100.4 Acetaminophen 650 mg 08/19/25 15:15 08/30/25 17:22 Acetaminophen 325 Mg Tablet PO 09/18/25 15:14 650 mg Q6H PRN Administration PAIN SCALE 1-3 (mild Apixaban 2.5 mg 08/20/25 21:00 08/31/25 10:17 Apixaban 2.5 Mg Tablet PO 09/19/25 20:59 2.5 mg BID IMANI Administration Balsam [place] Oil 0 gm 08/20/25 21:00 08/31/25 10:29 Balsam [place] Oil (Venelex) 60 Gm Tube TOP 09/19/25 20:59 1 applicatio BID IMANI Administration Bisacodyl 10 mg 08/30/25 16:07 Bisacodyl 10 Mg Supp [place] 09/29/25 16:14 QDAY PRN Constipation Protocol Bumetanide 1 mg 08/29/25 10:15 08/30/25 09:48 Bumetanide Inj 0.25 Mg/Ml Vial 4 Ml IVP 09/28/25 10:14 Not Given On Hold: 08/30/25 10:32 QDAY IMANI Cefuroxime Axetil 500 mg 08/31/25 21:00 Cefuroxime Axetil 250 Mg Tablet PO 09/12/25 20:59 BID IMANI Dextrose 25 ml 08/21/25 00:25 08/23/25 21:46 Dextrose 50%-Water Inj 50 Ml Syringe IV 09/20/25 00:24 25 ml Q15MIN PRN Administration BG 50-70 responsive npo pt Dextrose 50 ml 08/21/25 00:25 Dextrose 50%-Water Inj 50 Ml Syringe IV 09/20/25 00:24 Q15MIN PRN BG <50 OR BG <70 & pt unresponsive Diphenhydramine HCl 25 mg 08/19/25 17:55 Diphenhydramine Elix 25 Mg/10 Ml Udc GT 09/18/25 17:01 Q4H PRN Allergic Symptoms Gabapentin 600 mg 08/19/25 21:00 08/29/25 09:05 Gabapentin 300 Mg Capsule 09/18/25 20:59 600 mg On Hold: 08/29/25 09:42 BID IMANI Administration Glucagon 1 mg 08/21/25 00:25 Glucagon Inj 1 Mg Vial IM Q15MIN PRN BG <70, and no IV access Guaifenesin 100 mg 08/22/25 14:00 08/31/25 05:19 Guaifenesin Syrup 200 Mg/10 Ml Udc 09/21/25 13:59 100 mg TID [facility] Administration Protocol Vancomycin HCl 200 mls @ 120 mls/hr 08/28/25 10:00 08/31/25 10:18 Vancomycin/Water 1gm Ivpb IV 09/04/25 09:59 120 mls/hr QDAY@1000 [facility] Administration Protocol Insulin Degludec 15 unit 08/29/25 09:00 08/31/25 10:15 Insulin Degludec 5 Unit/0.05 Ml (Per 5 Units) SC 09/28/25 08:59 15 unit QDAY [facility] Administration Insulin Human Lispro 2 unit 08/22/25 00:00 08/31/25 05:20 Insulin Lispro (Admelog) 1 Unit/0.01 Ml Unit SC 09/21/25 00:00 Not Given Q6HR IMANI Insulin Human Lispro 0 unit 08/24/25 12:00 08/31/25 05:20 Insulin Lispro (Admelog) 1 Unit/0.01 Ml Unit IN 09/23/25 11:59 Not Given Q6HR [facility] Protocol Ipratropium [place] 0.5 mg 08/19/25 17:04 Ipratropium Rt 0.5 Mg/ 2.5 Ml Nebu INH 09/18/25 17:03 Q4H PRN SHORTNESS OF BREATH OR WHEEZE Labetalol HCl 10 mg 08/25/25 11:20 Labetalol Inj 5 Mg/Ml Vial 4 Ml IVP 09/24/25 11:29 Q10MIN PRN hypertension, SBP >160 Midodrine 10 mg 08/30/25 07:45 08/31/25 05:19 Midodrine 5 Mg Tablet GT 09/29/25 07:44 10 mg TID IMANI Administration Multivitamins 1 tab 08/20/25 09:15 08/31/25 10:17 Multivitamins Tablet NG 09/19/25 09:14 1 tab QDAY IMANI Administration Nystatin 0 gm 08/30/25 21:00 08/31/25 10:28 Nystatin Cr 30 Gm Tube TOP 09/29/25 20:59 1 applicatio BID IMANI Administration Pantoprazole Sodium 40 mg 09/01/25 09:00 Pantoprazole 40 Mg Tablet PO 10/01/25 08:59 QDAY IMANI Pharmacy Consult 1 each 08/20/25 10:23 Pharmacy Renal Dose Adjustment 1 Ea XX 09/19/25 10:22 PRN PRN CONSULT Protocol Pharmacy Consult 1 each 08/28/25 08:14 Vancomycin Pharmacy To Dose 1 Each Each IV 09/26/25 18:14 QDAY PRN PROTOCOL Simethicone 80 mg 08/21/25 21:00 08/31/25 10:17 Simethicone 80 Mg Chew GT 09/20/25 20:59 80 mg BID IMANI Administration Zinc Sulfate 220 mg 08/20/25 09:15 08/31/25 10:16 Zinc Sulfate 220 Mg Capsule NG 09/19/25 09:14 220 mg QDAY IMANI Administration Plan Mr. Kwadwo Sanchez is a 80 year old male w/ an extensive past medical history consisting of 2x CVA, hypoxic respiratory failure s/p tracheostomy, HTN, T2DM, Sacral ulcers, vertebral osteomyelitis, s/p PEG tube, chronic german catheterization and multiple DVT's coming in for altered mental status and tachycardia. Admitted to ICU s/p code blue and has since been downgraded to medicine for further management of sepsis 2/2 pneumonia complicated by potential gastrointestinal bleeding pending further workup. #Acute on chronic, hypoxic, respiratory failure, i/s/o bilateral pleural effusions #??Pericardial effusion #??Aspiration pneumonia Patient had rapid response on 08/29 for hypoxia in the 50s and bradycardia in the 30s Dx: -08/29 repeat CXR ordered, showed worsening haziness and bilateral pleural effusion -08/29 echocardiogram ordered, showed EF 50-55% with grade I diastolic dysfunction. Mild AV sclerosis with trace MR and TR. -ABG was ordered but could not be obtained due to patient being a hard stick -08/29 lactate, ammonia, and procalcitonin ordered, all negative Rx: -Bumex 1 mg IV daily (HELD) -Holding tube feeds #Sepsis, resolved #Ventilator-associated pneumonia #Bilateral pleural effusions Tracheostomy mechanical ventilation dependent, Fever, Leukocytosis Hx of admissions for pneumonia, Pseudomonas + Differential diagnosis = ventilator-associated pneumonias vs community-acquired pneumonia vs other CT Chest 08/19 Bilateral Pleural Effusions s/p code blue --> ICU admission for vasopressor support and transfusion --> back to medicine for further management 08/19 09/07 Blood cultures Enterobacter cloacae, Proteus mirabilis Possible contamination, to follow up with lab 08/19 sputum trachea = Pseudomonas aeruginosa Rx: ? Discontinue Aztreonam 2 mg IV every 8 hours [08/28 - 08/31] per ID - Start cefuroxime for remainder of 2 week course [08/31-09/12/25] ? Vancomycin IV daily [08/27 - 09/04] ? s/p Cefepime 1 g IV twice daily [08/20 - 08/28] (stopped due to 08/28 concerns for hyperbilirubinemia and transaminitis) ? s/p Flagyl 500 mg every 6 hours [08/28 - 08/28] #Hyperbilirubinemia #Transaminitis #Elevated alkaline phosphatase #Lactic acidosis #Leukocytosis On 08/28 patient was noted to have new leukocytosis, lactic acidosis, hyperbilirubinemia, transaminitis, and elevated alkaline phosphatase concerning for bile duct obstruction in the setting of increasing abdominal distention and apparent pain Initially suspected that the cause of these new abnormal labs was adverse medication effect from cefepime Dx: ? Liver ultrasound ordered, showed multiple gallstones but no dilation of the common bile duct ? KUB ordered, showed significant stool burden ? MRCP deferred due to improvement in bilirubin and LFTs Rx: ? Discontinued cefepime, Flagyl, and aztreonam - Started on cefuroxime per ID as above, continue vancomycin ? Mineral oil enema ordered, may need to consider halting tube feeds if unsuccessful in alleviating patient's significant stool burden #Bacteremia 08/19 09/07 Blood cultures Enterobacter cloacae, Proteus mirabilis, 1 bottle, could be contamination. However given the patient's condition and the severity of the sepsis we will treat as true bacteremia. Rx: ? Antibiotics as above #Gastrointestinal bleeding #Anemia, normocytic baseline Hgb appears to be 8/9 Noted hx of gastrointestinal bleed, unknown record of last BM w/ mandie blood Acute drop in Hgb 5.6 from 7.0 08/22; transfused 2U PRBC EGD was done on 25 August 2005 showed gastritis, duodenitis. Hemoglobin remains stable FOBT negative 08/24 Plan ? Start the patient on Protonix IV 40 mg daily ? 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, sepsis due to this organism unlikely given clinical improvement on zosyn that has been narrowed down to cefepime Rx: -Indwelling German catheter was replaced on 08/30 due to pus around the urethra #Pericardial Effusion #Elevated troponin Pericardial Effusion 33mm found 08/19 CT Chest ECHO 08/19 EF ~ 40-50% Troponin 08/19 .128 -> 0.79 -> 0.464 most likely elevated due to heart strain in the setting of hypovolemic shock 2/2 sepsis; coupled with pericardial effusion w/out circulatory compromise/obstruction -per Cardiology: Nonoperative management F/U O/P #Tracheostomy #Respiratory Failure Tracheostomy [place] [address] 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 Sanchez was transferred to [facility] to get IVC filter but it was never done -To follow up again on IVC filter placement -DVT prophylaxis = Eliquis 2.5 PO BID(peg tube) #Hypotension Admission BP 99/64 Rapid response called on 08/30 for MAP 41 Rx: -1 L bolus of LR and 1 L LR maintenance @ 75 cc/hr -Bumex held -Midodrine 10 mg TID PRN -Holding home antihypertensives in the setting of hypovolemia #Metabolic acidosis, likely 2/2 GI losses (resolved) - S/p Bicarbonate ampoule x 1 Rx: - Continue to monitor daily labs #T2DM -ISS (correction scale 3) Degludec 10U QDay Lispro 2 U SC q6H Sugar Checks Q4Hr #Sacral Ulcer Wound(s) Hx of sacral ulcer wounds -Wound nursing management #Hyperlipidemia - Atorvastatin 20mg #Allergies Hx of angioedema w/ NYLA, ARB-Angiotensin receptor antagonists Hx of hives, itching, rash - heat vs other -Avoid use for management of BP medication #Neuropathy Hx of bilateral neuropathy - Gabapentin 600mg BID #Constipation -Lactulose 10gm/15mL q24 -Milk of Magnesia 400mg/5mL - give if no BM for 2 days #Cerebral Vascular Accident #Stroke #Quadraplegia Stroke(s) in 2021, since then has had: Tracheostomy, PEG tube dependence Last documented event of stroke = 08/19 CT Head no evidence of hemorrhagic stroke -Continued management of above conditions with corresponding therapies/medications Hospital management: Disposition: Telemetry, managing newly abnormal hyperbilirubinemia, transaminitis, elevated alkaline phosphatase, and lactic acidosis Lines: New left IJ central line placed 08/30 German: Indwelling German catheter replaced as of 08/30 Diet: PEG tube feeds (resumed on 08/30 due to BG 74) DVT Prophylaxis: Eliquis CODE STATUS: Full Code Patient plan of care was discussed with the senior resident, Dr. Crawley, and the attending physician, Dr. Deluna. Octavia Short DO, PGY-1 Attending Provider Attestation/Addendum I have discussed and was present for the essential components of the history, physical examination, diagnosis, and treatment plan with the resident. I agree with the patient's care as documented by the resident and amended herein by me. Hipolito Deluna DO. Although this document has been carefully reviewed, there may still be some phonetic and other typographical errors. These errors are purely grammatical due to imperfections in the software program and should not be construed in any way to compromise the substance of the patient's medical care during this visit.
[2025-08-31] MEDS: INSULIN LISPRO (AdmeLOG) 1 UNIT/0.01 ML UNIT 2 UNIT SC (13:43)
--- NOTE | 2025-08-31 15:54 | PC.SS ---
Rounding note: Pending lab results. Discharging in 1-2 days to [facility] at the [place]. Transportation needed.
[2025-09-01] VITALS (15 sets, daily range): BP systolic 116–148; BP diastolic 67–85; PULSE 75–86; RESP 20–26; TEMP 35.9–36.6; O2SAT 94–100
[2025-09-01 05:21] LABS: Basophils # (Auto) 0.1 Thou/mm3 (0.0-0.2); Basophils % (Auto) 1 % (0-2.5); Eosinophils # (Auto) 0.7 Thou/mm3 (0.0-0.5); Eosinophils % (Auto) 7 % (0-10); Hematocrit 26.2 % (41.0-53.0); Immature Granulocytes Auto 0.06 Thou/mm3 (0.00-0.00); Lymphocytes # (Auto) 2.0 Thou/mm3 (1.0-4.8); Lymphocytes % (Auto) 21 % (10-50); Mean Corpuscular HGB Conc 30.9 g/dl (31.0-37.0); Mean Corpuscular Hemoglobin 25.2 pg (25.0-35.0); Mean Corpuscular Volume 81 fL (80-100); Monocytes # (Auto) 0.6 Thou/mm3 (0.0-0.8); Monocytes % (Auto) 7 % (0-12); Neutrophils # (Auto) 6.2 Thou/mm3 (1.8-7.7); Neutrophils % (Auto) 65 % (37-80); Nucleated Red Blood Cell # 0.02 Thou/mm3 (0.00-0.00); Nucleated Red Blood Cell % 0 /100 WBC (0); Platelet Count 337 Thou/mm3 (140-440); RDW Standard Deviation 57.7 fL (35.1-43.9); Red Blood Count 3.22 Miln/mm3 (4.50-5.90); White Blood Count 9.6 Thou/mm3 (3.8-10.6)
[2025-09-01] MEDS: guaiFENesin SYRUP 200 MG/10 ML UDC 100 MG GT ×3 (05:23→20:27)
[2025-09-01 05:24] LABS: Hemoglobin 8.1 g/dL (13.5-16.0)
[2025-09-01] MEDS: MIDODRINE 5 MG TABLET 10 MG GT ×3 (05:24→20:28)
[2025-09-01 06:14] LABS: Alanine Aminotransferase 82 U/L (10-49); Albumin, Serum 2.8 gm/dL (3.4-4.8); Albumin/Globulin Ratio 0.6 (1.2-2.2); Alkaline Phosphatase 488 U/L (46-116); Anion Gap 11 (7-16); Aspartate Amino Transferase 68 U/L (0-34); BUN/Creatinine Ratio 36 Ratio (12-20); Bilirubin,Total 1.4 mg/dL (0.3-1.2); Blood Urea Nitrogen 29 mg/dL (9-23); Calcium 9.0 mg/dL (8.3-10.6); Calcium (Corrected) 10.0 mg/dL (8.5-10.1); Carbon Dioxide 20.9 mMol/L (20.0-31.0); Chloride 112 mMol/L (98-107); Creatinine (Component) 0.8 mg/dL (0.6-1.3); Estimated Creatinine Clearance 107.8 mL/min (>60); Globulin 4.7 gm/dL (2.3-3.5); Glucose 102 mg/dL (74-106); Magnesium 2.0 mg/dL (1.6-2.6); Osmolality,Calculated 292 (275-295); Phosphorous 3.5 mg/dL (2.4-5.1); Potassium 4.3 mMol/L (3.4-5.1); Sodium 144 mMol/L (136-145); Total Protein 7.5 gm/dL (5.7-8.2); eGFR > 60 See Note
[2025-09-01] MEDS: INSULIN DEGLUDEC 5 UNIT/0.05 ML (PER 5 UNITS) 15 UNIT SC (09:09)
[2025-09-01] MEDS: MULTIVITAMINS TABLET 1 TAB NG (09:09)
[2025-09-01] MEDS: ZINC SULFATE 220 MG CAPSULE NG (09:09)
[2025-09-01] MEDS: APIXABAN 2.5 MG TABLET PO ×2 (09:09→20:28)
[2025-09-01] MEDS: SIMETHICONE 80 MG CHEW GT ×2 (09:09→20:28)
[2025-09-01] MEDS: BALSAM PERU/CASTOR OIL (Venelex) 60 GM TUBE TOP ×2 (09:10→20:29)
[2025-09-01] MEDS: NYSTATIN CR 30 GM TUBE TOP ×2 (09:10→20:28)
[2025-09-01] MEDS: ACETAMINOPHEN 325 MG TABLET 650 MG PO ×2 (10:25→17:37)
--- NOTE | 2025-09-01 10:44 | PC.SS ---
Addendum entered by Doris Bell 09/01/25 10:56: Updated clinicals sent via XM Fax Original Note: SS contacted [facility] at the [place] [phone] and spoke to car oilerStephanie who stated they do not have their DON on sight to review updated clinicals over the weekend or to verify is [place] has authorized for pt to return. Stephanie inquired if HLOC was attempted for pt as they believe pt may need something higher then what they can provide for him at their facility. SS requested F# to send updated clinicals as pt is stable and ready for DC. F# [phone]. SS sent updated clinicals reflecting the last 48hrs for review. Per Stephanie it is possible they will not get reviewed until Wednesday.
[2025-09-01] MEDS: INSULIN LISPRO (AdmeLOG) 1 UNIT/0.01 ML UNIT 2 UNIT SC ×2 (11:28→17:34)
--- NOTE | 2025-09-01 12:57 | PD.RESPRO ---
Documentation for date of: 09/01/25 Exam Vital Signs Temp Pulse Resp BP Pulse Ox O2 Del Method O2 Flow Rate 97.0 F 78 20 116/72 99 Mechanical Ventilation 35 09/01/25 12:00 09/01/25 12:04 09/01/25 12:00 09/01/25 12:00 09/01/25 12:04 09/01/25 12:00 09/01/25 08:00 FiO2 40 09/01/25 12:04 Objective Labs 09/01/25 04:47 09/01/25 04:47 Labs: Laboratory Results - last 24 hr 09/01/25 04:47 WBC 9.6 RBC 3.22 L Hgb 8.1 L Hct 26.2 L MCV 81 MCH 25.2 MCHC 30.9 L RDW Std Deviation 57.7 H Plt Count 337 Neut % (Auto) 65 Lymph % (Auto) 21 [place] % (Auto) 7 Eos % (Auto) 7 Baso % (Auto) 1 Neut # (Auto) 6.2 Lymph # (Auto) 2.0 [place] # (Auto) 0.6 Eos # (Auto) 0.7 H Baso # (Auto) 0.1 Immature Gran # (Auto) 0.06 H Absolute Nucleated RBC 0.02 H Immature Gran % 1 H Nucleated RBC % 0 Sodium 144 Potassium 4.3 Chloride 112 H Carbon Dioxide 20.9 Anion Gap 11 BUN 29 H Creatinine 0.8 Estim Creat Clear Calc 107.8 eGFR > 60 BUN/Creatinine Ratio 36 H Glucose 102 Calculated Osmolality 292 Calcium 9.0 Corrected Calcium 10.0 Phosphorus 3.5 Magnesium 2.0 Total Bilirubin 1.4 H D AST 68 H ALT 82 H Alkaline Phosphatase 488 H Total Protein 7.5 Albumin 2.8 L Globulin 4.7 H Albumin/Globulin Ratio 0.6 L ABG Interpretation ABG results: 08/19/25 08/19/25 08/30/25 20:08 22:17 07:40 ABG pH 7.23 L 7.38 D 7.35 ABG pCO2 47 36 D 34 ABG pO2 85 140 H D 83 ABG HCO3 20 21 19 L ABG O2 Saturation 95 100 H 98 ABG Base Excess -8 L -4 L -6 L Quality Measures Quality Measures sepsis Possible source: pulmonary Blood cultures ordered: yes Assessment & Plan Assessment Current Active Medications: Generic Name Dose Route Start Last Admin Trade Name Freq PRN Reason Stop Dose Admin Acetaminophen 650 mg 08/19/25 15:10 Acetaminophen 325 Mg Tablet PO 09/18/25 15:09 Q6H PRN Fever >100.4 Acetaminophen 650 mg 08/19/25 15:15 09/01/25 10:25 Acetaminophen 325 Mg Tablet PO 09/18/25 15:14 650 mg Q6H PRN Administration PAIN SCALE 1-3 (mild Apixaban 2.5 mg 08/20/25 21:00 09/01/25 09:09 Apixaban 2.5 Mg Tablet PO 09/19/25 20:59 2.5 mg BID IMANI Administration Balsam [place]/Eighty Four Oil 0 gm 08/20/25 21:00 09/01/25 09:10 Balsam Michael/Eighty Four Oil (Venelex) 60 Gm Tube TOP 09/19/25 20:59 1 applicatio BID IMANI Administration Bisacodyl 10 mg 08/30/25 16:07 Bisacodyl 10 Mg Supp [place] 09/29/25 16:14 QDAY PRN Constipation Protocol Bumetanide 1 mg 08/29/25 10:15 08/30/25 09:48 Bumetanide Inj 0.25 Mg/Ml Vial 4 Ml IVP 09/28/25 10:14 Not Given On Hold: 08/30/25 10:32 QDAY IMANI Cefuroxime Axetil 500 mg 08/31/25 21:00 09/01/25 09:09 Cefuroxime Axetil 250 Mg Tablet PO 09/12/25 20:59 500 mg BID IMANI Administration Dextrose 25 ml 08/21/25 00:25 08/23/25 21:46 Dextrose 50%-Water Inj 50 Ml Syringe IV 09/20/25 00:24 25 ml Q15MIN PRN Administration BG 50-70 responsive npo pt Dextrose 50 ml 08/21/25 00:25 Dextrose 50%-Water Inj 50 Ml Syringe IV 09/20/25 00:24 Q15MIN PRN BG <50 OR BG <70 & pt unresponsive Diphenhydramine HCl 25 mg 08/19/25 17:55 Diphenhydramine Elix 25 Mg/10 Ml Udc GT 09/18/25 17:01 Q4H PRN Allergic Symptoms Gabapentin 600 mg 08/19/25 21:00 08/29/25 09:05 Gabapentin 300 Mg Capsule GT 09/18/25 20:59 600 mg On Hold: 08/29/25 09:42 BID IMANI Administration Glucagon 1 mg 08/21/25 00:25 Glucagon Inj 1 Mg Vial IM Q15MIN PRN BG <70, and no IV access Guaifenesin 100 mg 08/22/25 14:00 09/01/25 05:23 Guaifenesin Syrup 200 Mg/10 Ml Udc GT 09/21/25 13:59 100 mg TID IMANI Administration Protocol Insulin Degludec 15 unit 08/29/25 09:00 09/01/25 09:09 Insulin Degludec 5 Unit/0.05 Ml (Per 5 Units) SC 09/28/25 08:59 15 unit QDAY IMANI Administration Insulin Human Lispro 2 unit 08/22/25 00:00 09/01/25 11:28 Insulin Lispro (Admelog) 1 Unit/0.01 Ml Unit SC 09/21/25 00:00 2 unit Q6HR IMANI Administration Insulin Human Lispro 0 unit 08/24/25 12:00 09/01/25 11:25 Insulin Lispro (Admelog) 1 Unit/0.01 Ml Unit SC 09/23/25 11:59 Not Given Q6HR [facility] Protocol Ipratropium [place] 0.5 mg 08/19/25 17:04 Ipratropium Rt 0.5 Mg/ 2.5 Ml Nebu INH 09/18/25 17:03 Q4H PRN SHORTNESS OF BREATH OR WHEEZE Labetalol HCl 10 mg 08/25/25 11:20 Labetalol Inj 5 Mg/Ml Vial 4 Ml IVP 09/24/25 11:29 Q10MIN PRN hypertension, SBP >160 Midodrine 10 mg 08/30/25 07:45 09/01/25 05:24 Midodrine 5 Mg Tablet GT 09/29/25 07:44 10 mg TID IMANI Administration Multivitamins 1 tab 08/20/25 09:15 09/01/25 09:09 Multivitamins Tablet NG 09/19/25 09:14 1 tab QDAY IMANI Administration Nystatin 0 gm 08/30/25 21:00 09/01/25 09:10 Nystatin Cr 30 Gm Tube TOP 09/29/25 20:59 1 applicatio BID IMANI Administration Pantoprazole Sodium 40 mg 09/01/25 09:15 09/01/25 09:08 Pantoprazole Inj 40 Mg Vial IVP 10/01/25 09:14 40 mg QDAY IMANI Administration Simethicone 80 mg 08/21/25 21:00 09/01/25 09:09 Simethicone 80 Mg Chew GT 09/20/25 20:59 80 mg BID IMANI Administration Zinc Sulfate 220 mg 08/20/25 09:15 09/01/25 09:09 Zinc Sulfate 220 Mg Capsule NG 09/19/25 09:14 220 mg QDAY IMANI Administration
--- NOTE | 2025-09-01 14:19 | ESDS_ITS ---
<Statement entered by Vanessa Crawley MD - 09/02/25 13:44> Patient was seen and examined at bedside. Agree on the assessment and plan on this note. - Patient's plan and care discussed with my attending, Dr. Regi Crawley MD Internal Medicine PGY-3 Planned Discharge Date 09/01/25 DS: Providers Provider Date of admission: 08/19/25 14:35 Primary care physician: Alexa Heredia MD ([facility]) Admitting Provider: Brian Man MD Attending Provider on Admission: Shae Mauricio DO Consults: 08/19/25 14:34 Consult to Cardiology Routine Comment: Consulting Provider: Jamie Tarango 08/19/25 16:37 Referral Registered Dietitian Routine Comment: 08/19/25 16:44 Referral Nutritional Services Stat Comment: PEG tube feeds recommendations thank you 08/19/25 16:47 Referral Respiratory Therapy Stat Comment: chronic trach w/ unkown baseline settings 08/19/25 23:19 Referral Wound Care Routine Comment: 08/20/25 03:17 Referral Registered Dietitian Routine Comment: 08/24/25 10:15 Consult to Gastroenterology Stat Comment: Consulting Provider: Simon Conner 08/28/25 10:32 Consult to Infectious Diseases Stat Comment: RESTRICTED ABX Consulting Provider: Porter Castillo Attending Provider on DC: Michael Deluna DO Discharging Provider: Michael Deluna DO DS: Diagnosis Problem List Completed Was Problem List Reviewed/Reconciled?: Yes Hospital Course Hospital Course Hospital course: Mr. Kwadwo Sanchez is a 80 year old male w/ an extensive past medical history consisting of 2x CVA, hypoxic respiratory failure s/p tracheostomy, HTN, T2DM, Sacral ulcers, vertebral osteomyelitis, s/p PEG tube, chronic german catheterization and multiple DVT's who presented to the ED at [facility] from [facility] for altered mental status and tachycardia, admitted for pneumonia. His most recent visit to [facility] for ventillator-associated pneumonia was in 05/2025, for which cultures grew Pseudomonas. Vitals on admission was significant for temperature of 102.5 and a heart rate of 112. Initial laboratory workup is also significant for leukocytosis and hyponatremia. Mr. Sanchez presented with GCS 3 w/ tracheostomy place, unable to respond to verbal cues and stimulation, and substernal chest rub does not affect his mentation or alertness. HE remains VSS w/ ventilation through the tracheostomy. Motor re sponse is minimal, unable to fully elicit a response to pain on substernal chest rub. His confirms his status as full code. Initial chest xray demonstrated bilateral pulmonary infiltrates, as confirmed on CT Chest along with bilateral pleural effusions. Head CT is negative for any evidence of hemorrhage or mass effect. Zosyn started for empiric coverage given the history of recent pseudomonas pneumonia, ET tube cultures grew pseudomonas and blood cultures grew enterobacter cloacae, proteus mirabilis from initial blood cultures. Patient found to have pericardial effusion and elevated troponin which was likely due to heart strain in the setting of hypoolemia from sepsis. The first night of admission patient had a rapid response called for bradycardia and was found to have no pulse with pea on telemetry. Code blue was called, cpr initiated with rosc and was briefly in the ICU with apparent good recovery. Patient had an acute GI bleed with hemoglobin drop to 5.6 from 7.0, was transfused two units prbc and was stable since then. Patient had UTI with urine culture growing burkholderia which appeared to be colonized, patient's german catheter was replaced due to pus around urethra a week and a half later. Patient had elevated bilirubin and transaminitis which was suspected due to cefepime, which was changed to cefuroxime. Patient's sepsis due to ventilator associated pneumonia r esolved, patient will need to continue outpatient antibiotics. Discharge Instructions Follow up with pcp within one week from discharge Use medications as prescribed In case of worsening of your symptoms, please return to the ED as soon as possible Continue taking Cefuroxime for 14 days for ventilator associated pneumonia If any signs or symptoms of bleeding occur, return to ED or call emergency services DIEGO Being prescribed midodrine as needed for hypotension. Bumex is being held due to hypotension as well #Acute on chronic, hypoxic, respiratory failure #bilateral pleural effusions #??Pericardial effusion #??Aspiration pneumonia #Sepsis #Ventilator-associated pneumonia #Bilateral pleural effusions #Hyperbilirubinemia #Transaminitis #Elevated alkaline phosphatase #Lactic acidosis #Leukocytosis #Bacteremia #Gastrointestinal bleeding #Anemia, normocytic #Urinary Tract Infection #Chronic German Catheter Use #Pericardial Effusion #Elevated troponin #Tracheostomy #Respiratory Failure #Nutrition #Hypoglycemia #PEG-tube Dependence #Hx of DVT #Hypotension #Metabolic acidosis #T2DM #Sacral Ulcer Wound(s) #Hyperlipidemia #hx of Allergies #Neuropathy #Constipation #Cerebral Vascular Accident #Stroke #Quadraplegia Patient plan of care was discussed with the attending physician, Dr. Deluna & senior resident Dr. Denisa Méndez MD PGY-1 Time Spent with Patient Time attestation: Total time spent providing and/or coordinating discharge services: Time spent: Greater than 30 minutes Exam Vital Signs Temp Pulse Resp BP Pulse Ox O2 Del Method O2 Flow Rate 97.0 F 82 20 136/84 H 99 Mechanical Ventilation 35 09/01/25 12:00 09/01/25 13:55 09/01/25 12:00 09/01/25 13:55 09/01/25 12:04 09/01/25 12:00 09/01/25 08:00 FiO2 40 09/01/25 12:04 Narrative Exam GEN: More awake, eyes moving spontaneously, does not appear to track. Does not seem to be in distress. On mechanical ventilation VC. HEENT: NC/AC, PERRLA, oral mucosa moist, neck supple CVS: RRR, S1-S2 present, no murmurs appreciated RESP: Good air entry bilaterally, transmitted sound from the tracheostomy was heard in both lungs. No signs of respiratory distress. GI: More tense and distended than yesterday, seemingly tender, NBS MSK: Unable to move any extremities, spastic deformity of the right leg SKIN: Skin exfoliation of the right leg. Trace edema. HOSPICE MUSIC THERAPIST: Unable to assess cranial nerves or sensory due to patient's chronic condition. Discharge Plan Plan Patient Disposition: Xfer Skilled Nsg Fac (SNF) Disposition Comment: [facility] Patient condition on transfer: Benefits outweigh risks Care Plan Goals: Follow up with pcp within one week from discharge Use medications as prescribed In case of worsening of your symptoms, please return to the ED as soon as possible Continue taking Cefuroxime for 14 days for ventilator associated pneumonia If any signs or symptoms of bleeding occur, return to ED or call emergency services DIEGO Being prescribed midodrine as needed for hypotension. Bumex is being held due to hypotension as well Prescriptions/Referrals Prescriptions/Med Rec: New cefuroxime axetil 250 mg Tablet 500 mg PO BID 13 Days Qty: 52 0RF nystatin 100,000 unit/gram Cream 1 applic top QID 5 Days Qty: 15 0RF Continued multivitamin with minerals Liquid 15 ml feeding tube QDAY ascorbic acid (vitamin C) 500 mg Tablet 500 mg feeding tube BID ezetimibe 10 mg Tablet 10 mg feeding tube QPM simethicone 80 mg Tablet,Chewable 80 mg feeding tube BID lactulose 10 gram/15 mL Solution 20 g feeding tube QDAY bisacodyl 10 mg Suppository 10 mg WI EVERYOTHERDAY PRN (Reason: bowel ) gabapentin 300 mg Capsule 600 mg feeding tube BID atorvastatin 20 mg tablet 20 mg feeding tube QPM sennosides [senna] 8.8 mg/5 mL syrup 5 ml feeding tube BID cetirizine 10 mg Tablet 10 mg feeding tube PRN PRN (Reason: allergy symptoms) Qty: 30 0RF midodrine 5 mg Tablet 10 mg PO TID PRN (Reason: SBP <100) Qty: 30 0RF Eliquis 2.5 mg tablet 2.5 mg PO BID diphenhydramine HCl [Allergy Relief(diphenhydramin)] 25 mg tablet 25 mg feeding tube Q4H oxycodone 5 mg tablet 5 mg feeding tube Q6H PRN (Reason: pain) Rx Instructions: PAIN 7-10 Referrals: Yan([facility])Alexa MD [Primary Care Provider, Internal Medicine] Patient/Caregiver Discharge Instructions Discharge Activity: resume usual activities Education Materials: Sepsis, ED FUO Adult Print Language: Italian Stand Alone Forms: Maria Isabel Award Info., Patient Portal Info Letter Discharge Order Discharge Orders: Discharge (Routine); Ordered 09/01/25 Ordered By: Vanessa Crawley Quality Discharge Quality Measures VTE prophylaxis Attestestation MD Attestation I have discussed and was present for the essential components of the history, physical examination, diagnosis, and treatment plan with the resident. I agree with the patient's care as documented by the resident and amended herein by me. Hipolito Deluna DO. Although this document has been carefully reviewed, there may still be some phonetic and other typographical errors. These errors are purely grammatical due to imperfections in the software program and should not be construed in any way to compromise the substance of the patient's medical care during this visit. Patient seen and evaluated this AM. No acute events overnight, vital signs been stable, blood pressure within normal limits, patient afebrile since 08/19, significant labs include a hemoglobin stable at 8.1, normal sodium and potassium, BUN 29, creatinine 0.8, downtrending T. bili to 1.4, downtrending liver enzymes, most recent blood cultures from 08/27 and 08/30, both sets NGTD. For the patient's acute on chronic hypoxic respiratory failure with bilateral pleural effusions suspected secondary to possible ventilator associated pneumonia, per infectious disease recommendations, vancomycin has been discontinued, recommends cefuroxime for the remainder of his antibiotic course, 2 more weeks. An EGD was performed on 08/25 demonstrating normal esophagus, gastritis and erythematous duodenopathy, no further GI interventions planned or recommended, patient's tube feeds have been continued and the patient has been tolerating well. For the patient's bacteremia and UTI has completed previous course of antibiotics to include Zosyn, for the patient's possible pericardial effusion, 3.3 cm, per cardiology nonoperative management considering there is no circulatory compromise at present. The patient's ulcers, will continue turning the patient as needed. Patient appears to be back to baseline and doing well, ready for discharge back to subacute facility however the family is protesting at discharge at this time. Will continue medical management as stated above, likely discharge back to subacute Wednesday or Wednesday.
--- NOTE | 2025-09-01 14:50 | PD.IMPROG ---
Documentation for date of: 09/01/25 Subjective Subjective Interval history: Patient evaluated Hemoglobin hematocrit 8.1 and 26.2 Exam Vital Signs Temp Pulse Resp BP Pulse Ox O2 Del Method O2 Flow Rate 97.0 F 82 20 136/84 H 99 Mechanical Ventilation 35 09/01/25 12:00 09/01/25 13:55 09/01/25 12:00 09/01/25 13:55 09/01/25 12:04 09/01/25 12:00 09/01/25 08:00 FiO2 40 09/01/25 12:04 Objective Labs 09/01/25 04:47 09/01/25 04:47 Labs: Laboratory Results - last 24 hr 09/01/25 04:47 WBC 9.6 RBC 3.22 L Hgb 8.1 L Hct 26.2 L MCV 81 MCH 25.2 MCHC 30.9 L RDW Std Deviation 57.7 H Plt Count 337 Neut % (Auto) 65 Lymph % (Auto) 21 [place] % (Auto) 7 Eos % (Auto) 7 Baso % (Auto) 1 Neut # (Auto) 6.2 Lymph # (Auto) 2.0 [place] # (Auto) 0.6 Eos # (Auto) 0.7 H Baso # (Auto) 0.1 Immature Gran # (Auto) 0.06 H Absolute Nucleated RBC 0.02 H Immature Gran % 1 H Nucleated RBC % 0 Sodium 144 Potassium 4.3 Chloride 112 H Carbon Dioxide 20.9 Anion Gap 11 BUN 29 H Creatinine 0.8 Estim Creat Clear Calc 107.8 eGFR > 60 BUN/Creatinine Ratio 36 H Glucose 102 Calculated Osmolality 292 Calcium 9.0 Corrected Calcium 10.0 Phosphorus 3.5 Magnesium 2.0 Total Bilirubin 1.4 H D AST 68 H ALT 82 H Alkaline Phosphatase 488 H Total Protein 7.5 Albumin 2.8 L Globulin 4.7 H Albumin/Globulin Ratio 0.6 L Impressions Impression: Gastritis Anemia blood loss Continue current ABG Interpretation ABG results: 08/19/25 08/19/25 08/30/25 20:08 22:17 07:40 ABG pH 7.23 L 7.38 D 7.35 ABG pCO2 47 36 D 34 ABG pO2 85 140 H D 83 ABG HCO3 20 21 19 L ABG O2 Saturation 95 100 H 98 ABG Base Excess -8 L -4 L -6 L Assessment & Plan A&P Narrative anemia, gi seeing abnormal imaging of chest if the effusion is significant then it should be drained, he is a full code will change to oral cefuroxime for remainder of course. 2 more weeks ok will see again prn Time Spent With Patient Time: Total time spent is greater than 50% in coordination of care (as documented) at patient's floor/unit and/or counseling patient:
--- NOTE | 2025-09-01 15:26 | PC.SS ---
Addendum entered by DANNY Simons 09/01/25 16:29: POWDERED METAL SUPERVISOR submitted appeal Ca # [id number], PENDING response. Original Note: POWDERED METAL SUPERVISOR met with patient and patients at bedside to discuss d/c. Patients would like to appeal discharge, POWDERED METAL SUPERVISOR provided patients with [employer] appeal number and form, patients signed form and POWDERED METAL SUPERVISOR provided family with copy.
--- NOTE | 2025-09-01 23:23 | PC.NURSE ---
Attempted to reposition patient oxygen dropped to 70's MD made aware patient not tolerating position change
[2025-09-02] VITALS (15 sets, daily range): BP systolic 122–157; BP diastolic 68–86; PULSE 77–92; RESP 20–21; TEMP 36.1–36.6; O2SAT 100; BMI 37.7
[2025-09-02] MEDS: MIDODRINE 5 MG TABLET 10 MG GT ×3 (05:19→20:14)
[2025-09-02] MEDS: guaiFENesin SYRUP 200 MG/10 ML UDC 100 MG GT ×3 (05:19→20:13)
[2025-09-02 05:20] LABS: Basophils # (Auto) 0.1 Thou/mm3 (0.0-0.2); Basophils % (Auto) 1 % (0-2.5); Eosinophils # (Auto) 0.5 Thou/mm3 (0.0-0.5); Eosinophils % (Auto) 5 % (0-10); Hematocrit 24.1 % (41.0-53.0); Immature Granulocytes Auto 0.03 Thou/mm3 (0.00-0.00); Lymphocytes # (Auto) 1.7 Thou/mm3 (1.0-4.8); Lymphocytes % (Auto) 17 % (10-50); Mean Corpuscular HGB Conc 31.5 g/dl (31.0-37.0); Mean Corpuscular Hemoglobin 25.5 pg (25.0-35.0); Mean Corpuscular Volume 81 fL (80-100); Monocytes # (Auto) 0.6 Thou/mm3 (0.0-0.8); Monocytes % (Auto) 6 % (0-12); Neutrophils # (Auto) 7.0 Thou/mm3 (1.8-7.7); Neutrophils % (Auto) 71 % (37-80); Nucleated Red Blood Cell # 0.00 Thou/mm3 (0.00-0.00); Nucleated Red Blood Cell % 0 /100 WBC (0); Platelet Count 313 Thou/mm3 (140-440); RDW Standard Deviation 57.0 fL (35.1-43.9); Red Blood Count 2.98 Miln/mm3 (4.50-5.90); White Blood Count 9.8 Thou/mm3 (3.8-10.6)
[2025-09-02 05:27] LABS: Hemoglobin 7.6 g/dL (13.5-16.0)
[2025-09-02 05:48] LABS: Alanine Aminotransferase 57 U/L (10-49); Albumin, Serum 2.8 gm/dL (3.4-4.8); Albumin/Globulin Ratio 0.7 (1.2-2.2); Alkaline Phosphatase 450 U/L (46-116); Anion Gap 13 (7-16); Aspartate Amino Transferase 49 U/L (0-34); BUN/Creatinine Ratio 37 Ratio (12-20); Bilirubin,Total 1.0 mg/dL (0.3-1.2); Blood Urea Nitrogen 26 mg/dL (9-23); Calcium 8.7 mg/dL (8.3-10.6); Calcium (Corrected) 9.7 mg/dL (8.5-10.1); Carbon Dioxide 22.2 mMol/L (20.0-31.0); Chloride 111 mMol/L (98-107); Creatinine (Component) 0.7 mg/dL (0.6-1.3); Estimated Creatinine Clearance 126.3 mL/min (>60); Globulin 4.3 gm/dL (2.3-3.5); Glucose 157 mg/dL (74-106); Magnesium 1.8 mg/dL (1.6-2.6); Osmolality,Calculated 298 (275-295); Phosphorous 3.6 mg/dL (2.4-5.1); Potassium 4.2 mMol/L (3.4-5.1); Sodium 146 mMol/L (136-145); Total Protein 7.1 gm/dL (5.7-8.2); eGFR > 60 See Note
[2025-09-02] MEDS: INSULIN DEGLUDEC 5 UNIT/0.05 ML (PER 5 UNITS) 15 UNIT SC (09:02)
[2025-09-02] MEDS: SIMETHICONE 80 MG CHEW GT ×2 (09:03→20:15)
[2025-09-02] MEDS: BALSAM PERU/CASTOR OIL (Venelex) 60 GM TUBE TOP ×2 (09:03→20:15)
[2025-09-02] MEDS: APIXABAN 2.5 MG TABLET PO ×2 (09:03→20:15)
[2025-09-02] MEDS: ZINC SULFATE 220 MG CAPSULE NG (09:03)
[2025-09-02] MEDS: MULTIVITAMINS TABLET 1 TAB NG (09:03)
[2025-09-02] MEDS: NYSTATIN CR 30 GM TUBE TOP ×2 (09:03→20:15)
[2025-09-02 09:54] LABS: Vancomycin,Trough 15.2 mcg/mL (5.0-10.0)
[2025-09-02 11:44] LABS: Collection Type, Urine Catheter; Squamous Epithelial Cell,Urine 0 /hpf (0-5)
[2025-09-02] MEDS: INSULIN LISPRO (AdmeLOG) 1 UNIT/0.01 ML UNIT 2 UNIT SC ×2 (12:02→17:34)
[2025-09-02] MEDS: ACETAMINOPHEN 325 MG TABLET 650 MG PO ×2 (12:05→20:15)
[2025-09-02 12:11] LABS: Bacteria,Urine 4+; Bilirubin,Urine Negative (Negative); Blood,Urine 3+ (Negative); Color,Urine Yellow (Lt Yel-Yel); Glucose, Urine Negative (Negative); Ketones,Urine Negative (Negative); Leukocyte Esterase,Urine Positive (Negative); Nitrite,Urine Negative (Negative); PH,Urine 5.5 (5.0-7.0); Protein,Urine 1+ (Neg - Trace); RBC,Urine 290 /hpf (0-3); Specific Gravity,Urine 1.016 (1.001-1.035); Urobilinogen,Urine Negative mg/dL (0.0-1.0); WBC,Urine 1820 /hpf (0-5)
[2025-09-02 12:29] LABS: Clarity,Urine Hazy (Clear/Hazy)
--- NOTE | 2025-09-02 13:22 | PC.SS ---
SS update: [employer] in clinical review.
--- NOTE | 2025-09-02 14:19 | ESPR_ITS ---
<Statement entered by Brian Man MD - 09/02/25 15:04> No acute overnight events. Seen and examined at bedside and does not appear to be in acute distress. German examined and appeared to have cloudy urine coming around urethra with possible pus and was foul-smelling. PEG tube site also examined with noted scabbing and possible skin irritation. Otherwise, vital signs stable. CBC shows slight decrease in hemoglobin from 8.1-7.6 but otherwise stable. CHEM panel showing improved T. bili that is now within normal limits and improving LFTs and alk phos. Will obtain repeat UA and urine culture for further evaluation and continue with cefuroxime at this time. Will also touch base with ID regarding urine cultures to see if change in antibiotic regimen is warranted. Also placed ordered for as needed bladder irrigation. ----- Note reviewed and agree with care plan as documented. Please refer to the note below for further details. Plan discussed with attending physician Dr. Regi Man MD PGY-2 Internal Medicine Documentation for date of: 09/02/25 Subjective Subjective Interval history: No acute events overnight. Patient continues to be in stable condition, afebrile, vital signs stable. Plan to contact Dr. 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 Also contacted GI for possible pus coming out of peg tube area. Exam Vital Signs Temp Pulse Resp BP Pulse Ox O2 Del Method O2 Flow Rate 97.4 F 84 20 129/79 100 Mechanical Ventilation 35 09/02/25 12:00 09/02/25 13:51 09/02/25 12:00 09/02/25 13:51 09/02/25 12:00 09/02/25 12:00 09/02/25 12:00 FiO2 40 09/02/25 12:00 Narrative Exam GEN: More awake, eyes moving spontaneously, does not appear to track. Does not seem to be in distress. On mechanical ventilation VC. HEENT: NC/AC, PERRLA, oral mucosa moist, neck supple CVS: RRR, S1-S2 present, no murmurs appreciated RESP: Good air entry bilaterally, transmitted sound from the tracheostomy was heard in both lungs. No signs of respiratory distress. GI: More tense and distended than yesterday, seemingly tender, NBS MSK: Unable to move any extremities, spastic deformity of the right leg SKIN: Skin exfoliation of the right leg. Trace edema. STENCIL INSPECTOR: Unable to assess cranial nerves or sensory due to patient's chronic condition. Objective Labs 09/03/25 05:17 09/03/25 05:17 Labs: Laboratory Results - last 24 hr 09/02/25 09/02/25 09/02/25 04:33 09:11 10:30 WBC 9.8 RBC 2.98 L Hgb 7.6 L Hct 24.1 L MCV 81 MCH 25.5 MCHC 31.5 RDW Std Deviation 57.0 H Plt Count 313 Neut % (Auto) 71 Lymph % (Auto) 17 [place] % (Auto) 6 Eos % (Auto) 5 Baso % (Auto) 1 Neut # (Auto) 7.0 Lymph # (Auto) 1.7 [place] # (Auto) 0.6 Eos # (Auto) 0.5 Baso # (Auto) 0.1 Immature Gran # (Auto) 0.03 H Absolute Nucleated RBC 0.00 Immature Gran % 0 Nucleated RBC % 0 Sodium 146 H Potassium 4.2 Chloride 111 H Carbon Dioxide 22.2 Anion Gap 13 BUN 26 H Creatinine 0.7 Estim Creat Clear Calc 126.3 eGFR > 60 BUN/Creatinine Ratio 37 H Glucose 157 H D Calculated Osmolality 298 H Calcium 8.7 Corrected Calcium 9.7 Phosphorus 3.6 Magnesium 1.8 Total Bilirubin 1.0 AST 49 H ALT 57 H Alkaline Phosphatase 450 H D Total Protein 7.1 Albumin 2.8 L Globulin 4.3 H Albumin/Globulin Ratio 0.7 L Ur Collection Type Catheter Urine Color Yellow Urine Clarity Hazy Urine pH 5.5 Ur Specific [place] 1.016 Urine Protein 1+ A Urine Glucose (UA) Negative Urine Ketones Negative Urine Blood 3+ A Urine Nitrite Negative Urine Bilirubin Negative Urine Urobilinogen (Auto) Negative Ur Leukocyte Esterase Positive Urine RBC 290 H Urine WBC 1820 H Ur Squamous Epith Cells 0 Urine Bacteria 4+ A Vancomycin Trough 15.2 H ABG Interpretation ABG results: 08/19/25 08/19/25 08/30/25 20:08 22:17 07:40 ABG pH 7.23 L 7.38 D 7.35 ABG pCO2 47 36 D 34 ABG pO2 85 140 H D 83 ABG HCO3 20 21 19 L ABG O2 Saturation 95 100 H 98 ABG Base Excess -8 L -4 L -6 L Quality Measures Quality Measures VTE prophylaxis Advance care planning discussed with:: patient Assessment & Plan Assessment Current Active Medications: Generic Name Dose Route Start Last Admin Trade Name Freq PRN Reason Stop Dose Admin Acetaminophen 650 mg 08/19/25 15:10 Acetaminophen 325 Mg Tablet PO 09/18/25 15:09 Q6H PRN Fever >100.4 Acetaminophen 650 mg 08/19/25 15:15 09/02/25 12:05 Acetaminophen 325 Mg Tablet PO 09/18/25 15:14 650 mg Q6H PRN Administration PAIN SCALE 1-3 (mild Apixaban 2.5 mg 08/20/25 21:00 09/02/25 09:03 Apixaban 2.5 Mg Tablet PO 09/19/25 20:59 2.5 mg BID IMANI Administration Balsam Golden/Lamont Oil 0 gm 08/20/25 21:00 09/02/25 09:03 Balsam Golden/[place] Oil (Venelex) 60 Gm Tube TOP 09/19/25 20:59 1 applicatio BID IMANI Administration Bisacodyl 10 mg 08/30/25 16:07 Bisacodyl 10 Mg Supp DE 09/29/25 16:14 QDAY PRN Constipation Protocol Bumetanide 1 mg 08/29/25 10:15 08/30/25 09:48 Bumetanide Inj 0.25 Mg/Ml Vial 4 Ml IVP 09/28/25 10:14 Not Given On Hold: 08/30/25 10:32 QDAY IMANI Cefuroxime Axetil 500 mg 08/31/25 21:00 09/02/25 09:03 Cefuroxime Axetil 250 Mg Tablet PO 09/12/25 20:59 500 mg BID IMANI Administration Dextrose 25 ml 08/21/25 00:25 08/23/25 21:46 Dextrose 50%-Water Inj 50 Ml Syringe IV 09/20/25 00:24 25 ml Q15MIN PRN Administration BG 50-70 responsive npo pt Dextrose 50 ml 08/21/25 00:25 Dextrose 50%-Water Inj 50 Ml Syringe IV 09/20/25 00:24 Q15MIN PRN BG <50 OR BG <70 & pt unresponsive Diphenhydramine HCl 25 mg 08/19/25 17:55 Diphenhydramine Elix 25 Mg/10 Ml Udc GT 09/18/25 17:01 Q4H PRN Allergic Symptoms Gabapentin 600 mg 08/19/25 21:00 08/29/25 09:05 Gabapentin 300 Mg Capsule GT 09/18/25 20:59 600 mg On Hold: 08/29/25 09:42 BID IMANI Administration Glucagon 1 mg 08/21/25 00:25 Glucagon Inj 1 Mg Vial IM Q15MIN PRN BG <70, and no IV access Guaifenesin 100 mg 08/22/25 14:00 09/02/25 13:51 Guaifenesin Syrup 200 Mg/10 Ml Udc GT 09/21/25 13:59 100 mg TID IMANI Administration Protocol Insulin Degludec 15 unit 08/29/25 09:00 09/02/25 09:02 Insulin Degludec 5 Unit/0.05 Ml (Per 5 Units) SC 09/28/25 08:59 15 unit QDAY IMANI Administration Insulin Human Lispro 2 unit 08/22/25 00:00 09/02/25 12:02 Insulin Lispro (Admelog) 1 Unit/0.01 Ml Unit SC 09/21/25 00:00 2 unit Q6HR IMANI Administration Insulin Human Lispro 0 unit 08/24/25 12:00 09/02/25 11:50 Insulin Lispro (Admelog) 1 Unit/0.01 Ml Unit SC 09/23/25 11:59 Not Given Q6HR [facility] Protocol Ipratropium [place] 0.5 mg 08/19/25 17:04 Ipratropium Rt 0.5 Mg/ 2.5 Ml Nebu INH 09/18/25 17:03 Q4H PRN SHORTNESS OF BREATH OR WHEEZE Labetalol HCl 10 mg 08/25/25 11:20 Labetalol Inj 5 Mg/Ml Vial 4 Ml IVP 09/24/25 11:29 Q10MIN PRN hypertension, SBP >160 Midodrine 10 mg 09/01/25 14:00 09/02/25 13:51 Midodrine 5 Mg Tablet GT 09/29/25 13:59 10 mg TID IMANI Administration Multivitamins 1 tab 08/20/25 09:15 09/02/25 09:03 Multivitamins Tablet NG 09/19/25 09:14 1 tab QDAY IMANI Administration Nystatin 0 gm 08/30/25 21:00 09/02/25 09:03 Nystatin Cr 30 Gm Tube TOP 09/29/25 20:59 1 applicatio BID IMANI Administration Pantoprazole Sodium 40 mg 09/01/25 09:15 09/02/25 09:02 Pantoprazole Inj 40 Mg Vial IVP 10/01/25 09:14 40 mg QDAY IMANI Administration Simethicone 80 mg 08/21/25 21:00 09/02/25 09:03 Simethicone 80 Mg Chew GT 09/20/25 20:59 80 mg BID IMANI Administration Zinc Sulfate 220 mg 08/20/25 09:15 09/02/25 09:03 Zinc Sulfate 220 Mg Capsule NG 09/19/25 09:14 220 mg QDAY IMANI Administration Plan Mr. Kwadwo Sanchez is a 80 year old male w/ an extensive past medical history consisting of 2x CVA, hypoxic respiratory failure s/p tracheostomy, HTN, T2DM, Sacral ulcers, vertebral osteomyelitis, s/p PEG tube, chronic german catheterization and multiple DVT's coming in for altered mental status and tachycardia. Admitted to ICU s/p code blue and has since been downgraded to medicine for further management of sepsis 2/2 pneumonia complicated by potential gastrointestinal bleeding s/p 2 units prbc, now has pus from german catheter but patient is stable, afebrile, cx negative. 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, sepsis due to this organism unlikely given clinical improvement on zosyn that has been narrowed down to cefepime (now changed to cefuroxime) Rx: -cefuroxime 500 mg po bid 08/31-09/12 -Indwelling German catheter was replaced on 08/30 due to pus around the urethra -ID consulted, will contact Dr. Castillo 09/03 regarding urethra pus i/s/o resistant UTI Burkholderia (treated with multiple antibiotics) -Ordered repeat urine cultures #Nutrition #Hypoglycemia #PEG-tube Dependence Hx of PEG tube dependence s/p stroke in 2021 Rx: -Feeding tube potential leak/pus, contacted GI -Tube feeds resumed 08/30 due to blood glucose 74 -Nutrition following, recommendations as needed #Acute on chronic, hypoxic, respiratory failure, i/s/o bilateral pleural effusions #??Pericardial effusion #??Aspiration pneumonia Patient had rapid response on 08/29 for hypoxia in the 50s and bradycardia in the 30s Dx: -08/29 repeat CXR ordered, showed worsening haziness and bilateral pleural effusion -08/29 echocardiogram ordered, showed EF 50-55% with grade I diastolic dysfunction. Mild AV sclerosis with trace MR and TR. -ABG was ordered but could not be obtained due to patient being a hard stick -08/29 lactate, ammonia, and procalcitonin ordered, all negative Rx: -Bumex 1 mg IV daily (HELD) -Holding tube feeds #Sepsis, resolved #Ventilator-associated pneumonia #Bilateral pleural effusions #Bacteremia Tracheostomy mechanical ventilation dependent, Fever, Leukocytosis Hx of admissions for pneumonia, Pseudomonas + Differential diagnosis = ventilator-associated pneumonias vs community-acquired pneumonia vs other CT Chest 08/19 Bilateral Pleural Effusions s/p code blue --> ICU admission for vasopressor support and transfusion --> back to medicine for further management 08/19 09/07 Blood cultures Enterobacter cloacae, Proteus mirabilis Possible contamination, to follow up with lab 08/19 sputum trachea = Pseudomonas aeruginosa Rx: - Cefuroxime for remainder of 2 week course [08/31-09/12/25] #Hyperbilirubinemia, RESOLVED #Transaminitis, IMPROVING #Elevated alkaline phosphatase, IMPROVING #Lactic acidosis, RESOLVED #Leukocytosis, RESOLVED On 08/28 patient was noted to have new leukocytosis, lactic acidosis, hyperbilirubinemia, transaminitis, and elevated alkaline phosphatase concerning for bile duct obstruction in the setting of increasing abdominal distention and apparent pain Initially suspected that the cause of these new abnormal labs was adverse medication effect from cefepime Dx: ? Liver ultrasound ordered, showed multiple gallstones but no dilation of the common bile duct ? KUB ordered, showed significant stool burden ? MRCP deferred due to improvement in bilirubin and LFTs Rx: - Cefuroxime per ID as above, continue vancomycin ? Mineral oil enema ordered, may need to consider halting tube feeds if unsuccessful in alleviating patient's significant stool burden #Gastrointestinal bleeding, STABLE #Anemia, normocytic baseline Hgb appears to be 8/9 Noted hx of gastrointestinal bleed, unknown record of last BM w/ mandie blood Acute drop in Hgb 5.6 from 7.0 08/22; transfused 2U PRBC EGD was done on 25 August 2005 showed gastritis, duodenitis. Hemoglobin remains stable FOBT negative 08/24 Plan ? Protonix IV 40 mg daily ? Outpatient follow-up with the manager laboratory - Transfuse <Hgb 7 #Pericardial Effusion #Elevated troponin Pericardial Effusion 33mm found 08/19 CT Chest ECHO 08/19 EF ~ 40-50% Troponin 08/19 .128 -> 0.79 -> 0.464 most likely elevated due to heart strain in the setting of hypovolemic shock 2/2 sepsis; coupled with pericardial effusion w/out circulatory compromise/obstruction - per Cardiology: Nonoperative management - F/U O/P #Tracheostomy #Respiratory Failure Tracheostomy [place] [address] Langford 2/2 chronic respiratory failure Has not been able to wean off trach -Continue trach ventilator -Respiratory Therapy to follow -Duonebs q4h PRN for SoB #DVT Hx of Bilateral Femoral DVT's diagnosed 05/2025 Previous talks about IVC filter placement; per conversation with , Mr. Sanchez was transferred to [place] to get IVC filter but it was never done -To follow up again on IVC filter placement -DVT prophylaxis = Eliquis 2.5 PO BID(peg tube) #Hypotension Admission BP 99/64 Rapid response called on 08/30 for MAP 41 Rx: -1 L bolus of LR and 1 L LR maintenance @ 75 cc/hr -Bumex held -Midodrine 10 mg TID PRN -Holding home antihypertensives in the setting of hypovolemia #Metabolic acidosis, likely 2/2 GI losses (resolved) - S/p Bicarbonate ampoule x 1 Rx: - Continue to monitor daily labs #T2DM -ISS (correction scale 3) Degludec 10U QDay Lispro 2 U SC q6H Sugar Checks Q4Hr #Sacral Ulcer Wound(s) Hx of sacral ulcer wounds -Wound nursing management #Hyperlipidemia - Atorvastatin 20mg #Allergies Hx of angioedema w/ NYLA, ARB-Angiotensin receptor antagonists Hx of hives, itching, rash - heat vs other -Avoid use for management of BP medication #Neuropathy Hx of bilateral neuropathy - Gabapentin 600mg BID #Constipation -Lactulose 10gm/15mL q24 -Milk of Magnesia 400mg/5mL - give if no BM for 2 days #Cerebral Vascular Accident #Stroke #Quadraplegia Stroke(s) in 2021, since then has had: Tracheostomy, PEG tube dependence Last documented event of stroke = 08/19 CT Head no evidence of hemorrhagic stroke -Continued management of above conditions with corresponding therapies/medications Hospital management: Disposition: Telemetry, managing newly abnormal hyperbilirubinemia, transaminitis, elevated alkaline phosphatase, and lactic acidosis Lines: New left IJ central line placed 08/30 German: Indwelling German catheter replaced as of 08/30 Diet: PEG tube feeds (resumed on 08/30 due to BG 74) DVT Prophylaxis: Eliquis CODE STATUS: Full Code Patient plan of care was discussed with the attending physician, Dr. Deluna & senior resident Dr. Magda Méndez MD PGY-1 Attending Provider Attestation/Addendum I have discussed and was present for the essential components of the history, physical examination, diagnosis, and treatment plan with the resident. I agree with the patient's care as documented by the resident and amended herein by me. Hipolito Deluna DO. Although this document has been carefully reviewed, there may still be some phonetic and other typographical errors. These errors are purely grammatical due to imperfections in the software program and should not be construed in any way to compromise the substance of the patient's medical care during this visit.
--- NOTE | 2025-09-02 18:43 | ESPR_ITS ---
Documentation for date of: 09/02/25 Subjective Subjective Interval history: PEG site evaluated The stoma is a bit bigger due to the constant rubbing of the PEG tube Advised the nursing staff whom I took with me to the room to examine the PEG site to clean the PEG site every 4 hours with Betadine and put a dressing underneath it The problem is also the kind of a PEG tube and long-term uses It can be replaced with a standard [place] 24 PEG tube that will stay straight up and not rub the stoma that much And I will do that prior to discharge Exam Vital Signs Temp Pulse Resp BP Pulse Ox O2 Del Method O2 Flow Rate 97.6 F 88 20 126/76 100 Mechanical Ventilation 35 09/02/25 16:00 09/02/25 18:13 09/02/25 18:13 09/02/25 16:00 09/02/25 18:13 09/02/25 16:00 09/02/25 16:00 FiO2 40 09/02/25 18:13 Objective Labs 09/02/25 04:33 09/02/25 04:33 Labs: Laboratory Results - last 24 hr 09/02/25 09/02/25 09/02/25 04:33 09:11 10:30 WBC 9.8 RBC 2.98 L Hgb 7.6 L Hct 24.1 L MCV 81 MCH 25.5 MCHC 31.5 RDW Std Deviation 57.0 H Plt Count 313 Neut % (Auto) 71 Lymph % (Auto) 17 [place] % (Auto) 6 Eos % (Auto) 5 Baso % (Auto) 1 Neut # (Auto) 7.0 Lymph # (Auto) 1.7 [place] # (Auto) 0.6 Eos # (Auto) 0.5 Baso # (Auto) 0.1 Immature Gran # (Auto) 0.03 H Absolute Nucleated RBC 0.00 Immature Gran % 0 Nucleated RBC % 0 Sodium 146 H Potassium 4.2 Chloride 111 H Carbon Dioxide 22.2 Anion Gap 13 BUN 26 H Creatinine 0.7 Estim Creat Clear Calc 126.3 eGFR > 60 BUN/Creatinine Ratio 37 H Glucose 157 H D Calculated Osmolality 298 H Calcium 8.7 Corrected Calcium 9.7 Phosphorus 3.6 Magnesium 1.8 Total Bilirubin 1.0 AST 49 H ALT 57 H Alkaline Phosphatase 450 H D Total Protein 7.1 Albumin 2.8 L Globulin 4.3 H Albumin/Globulin Ratio 0.7 L Ur Collection Type Catheter Urine Color Yellow Urine Clarity Hazy Urine pH 5.5 Ur Specific [place] 1.016 Urine Protein 1+ A Urine Glucose (UA) Negative Urine Ketones Negative Urine Blood 3+ A Urine Nitrite Negative Urine Bilirubin Negative Urine Urobilinogen (Auto) Negative Ur Leukocyte Esterase Positive Urine RBC 290 H Urine WBC 1820 H Ur Squamous Epith Cells 0 Urine Bacteria 4+ A Vancomycin Trough 15.2 H Impressions Impression: PEG site evaluation Dressing changes as advised Plan as in the history of HPI ABG Interpretation ABG results: 08/19/25 08/19/25 08/30/25 20:08 22:17 07:40 ABG pH 7.23 L 7.38 D 7.35 ABG pCO2 47 36 D 34 ABG pO2 85 140 H D 83 ABG HCO3 20 21 19 L ABG O2 Saturation 95 100 H 98 ABG Base Excess -8 L -4 L -6 L Assessment & Plan A&P Narrative anemia, gi seeing abnormal imaging of chest if the effusion is significant then it should be drained, he is a full code will change to oral cefuroxime for remainder of course. 2 more weeks ok will see again prn Time Spent With Patient Time: Total time spent is greater than 50% in coordination of care (as documented) at patient's floor/unit and/or counseling patient:
[2025-09-03] VITALS (16 sets, daily range): BP systolic 123–158; BP diastolic 75–93; PULSE 76–102; RESP 17–26; TEMP 36.2–36.4; O2SAT 100; BMI 37.7; BMI 36.1
[2025-09-03] MEDS: guaiFENesin SYRUP 200 MG/10 ML UDC 100 MG GT ×3 (05:21→21:41)
[2025-09-03] MEDS: MIDODRINE 5 MG TABLET 10 MG GT ×3 (05:21→21:41)
[2025-09-03 06:22] LABS: Basophils # (Auto) 0.1 Thou/mm3 (0.0-0.2); Basophils % (Auto) 1 % (0-2.5); Eosinophils # (Auto) 0.6 Thou/mm3 (0.0-0.5); Eosinophils % (Auto) 6 % (0-10); Hematocrit 24.2 % (41.0-53.0); Immature Granulocytes Auto 0.04 Thou/mm3 (0.00-0.00); Lymphocytes # (Auto) 2.0 Thou/mm3 (1.0-4.8); Lymphocytes % (Auto) 22 % (10-50); Mean Corpuscular HGB Conc 31.4 g/dl (31.0-37.0); Mean Corpuscular Hemoglobin 25.5 pg (25.0-35.0); Mean Corpuscular Volume 81 fL (80-100); Monocytes # (Auto) 0.7 Thou/mm3 (0.0-0.8); Monocytes % (Auto) 8 % (0-12); Neutrophils # (Auto) 5.7 Thou/mm3 (1.8-7.7); Neutrophils % (Auto) 63 % (37-80); Nucleated Red Blood Cell # 0.00 Thou/mm3 (0.00-0.00); Nucleated Red Blood Cell % 0 /100 WBC (0); Platelet Count 307 Thou/mm3 (140-440); RDW Standard Deviation 57.3 fL (35.1-43.9); Red Blood Count 2.98 Miln/mm3 (4.50-5.90); White Blood Count 9.1 Thou/mm3 (3.8-10.6)
[2025-09-03 06:30] LABS: Hemoglobin 7.6 g/dL (13.5-16.0)
[2025-09-03 06:51] LABS: Alanine Aminotransferase 45 U/L (10-49); Albumin, Serum 2.9 gm/dL (3.4-4.8); Albumin/Globulin Ratio 0.7 (1.2-2.2); Alkaline Phosphatase 415 U/L (46-116); Anion Gap 11 (7-16); Aspartate Amino Transferase 44 U/L (0-34); BUN/Creatinine Ratio 33 Ratio (12-20); Bilirubin,Total 0.8 mg/dL (0.3-1.2); Blood Urea Nitrogen 20 mg/dL (9-23); Calcium 8.5 mg/dL (8.3-10.6); Calcium (Corrected) 9.4 mg/dL (8.5-10.1); Carbon Dioxide 23.1 mMol/L (20.0-31.0); Chloride 110 mMol/L (98-107); Creatinine (Component) 0.6 mg/dL (0.6-1.3); Estimated Creatinine Clearance 147.3 mL/min (>60); Globulin 4.4 gm/dL (2.3-3.5); Glucose 162 mg/dL (74-106); Magnesium 1.7 mg/dL (1.6-2.6); Osmolality,Calculated 293 (275-295); Phosphorous 3.5 mg/dL (2.4-5.1); Potassium 4.4 mMol/L (3.4-5.1); Sodium 144 mMol/L (136-145); Total Protein 7.3 gm/dL (5.7-8.2); eGFR > 60 See Note
[2025-09-03] MEDS: INSULIN DEGLUDEC 5 UNIT/0.05 ML (PER 5 UNITS) 15 UNIT SC (09:01)
[2025-09-03] MEDS: MULTIVITAMINS TABLET 1 TAB NG (09:01)
[2025-09-03] MEDS: APIXABAN 2.5 MG TABLET PO ×2 (09:01→20:43)
[2025-09-03] MEDS: ZINC SULFATE 220 MG CAPSULE NG (09:01)
[2025-09-03] MEDS: SIMETHICONE 80 MG CHEW GT ×2 (09:01→20:43)
[2025-09-03] MEDS: BALSAM PERU/CASTOR OIL (Venelex) 60 GM TUBE TOP ×2 (09:02→20:44)
[2025-09-03] MEDS: NYSTATIN CR 30 GM TUBE TOP ×2 (09:02→20:43)
--- NOTE | 2025-09-03 09:49 | ESPR_ITS ---
<Statement entered by Brian Man MD - 09/03/25 13:48> No acute overnight events. Seen and examined at bedside and patient appears to be at his baseline and in no acute distress. Touched base with infectious disease regarding patient's urine cultures who states that patient is likely colonized and to change catheter and repeat urine studies. Also evaluated by GI who will likely change type of PEG tube to decrease amount of irritation at the PEG tube site. On exam, left lower extremity noted to be cooler than right and left hallux forming blood-filled blister. Will order arterial duplex for further evaluation. UA from yesterday showing significant pyuria but no bacteria present and will follow-up urine cultures. Vital signs stable, CBC shows stable hemoglobin, and CHEM panel showing improving LFTs and alk phos. ----- Note reviewed and agree with care plan as documented. Please refer to the note below for further details. Plan discussed with attending physician Dr. Regi Man MD PGY-2 Internal Medicine Documentation for date of: 09/03/25 Subjective Subjective Interval history: No acute events overnight. Patient continues to be in stable condition, afebrile, vital signs stable. Contacted Dr. 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 Dr. Conner assessed PEG tube, states it can be replaced with better fitting tube. Exam Vital Signs Temp Pulse Resp BP Pulse Ox O2 Del Method O2 Flow Rate 97.6 F 83 20 134/78 H 100 Mechanical Ventilation 35 09/03/25 08:00 09/03/25 08:00 09/03/25 08:00 09/03/25 08:00 09/03/25 08:00 09/03/25 08:00 09/03/25 08:00 FiO2 35 09/03/25 08:00 Narrative Exam GEN: Eyes moving spontaneously, does not appear to track. Does not seem to be in distress. On mechanical ventilation VC. HEENT: NC/AC, PERRLA, oral mucosa moist, neck supple CVS: RRR, S1-S2 present, no murmurs appreciated RESP: Good air entry bilaterally, transmitted sound from the tracheostomy was heard in both lungs. No signs of respiratory distress. GI: More tense and distended than yesterday, seemingly tender, NBS MSK: Unable to move any extremities, spastic deformity of the right leg; posterior wounds; L big toe blister SKIN: Skin exfoliation of the right leg. Trace edema. CORE WINDER: Unable to assess cranial nerves or sensory due to patient's chronic condition. Objective Labs 09/03/25 05:17 09/03/25 05:17 Labs: Laboratory Results - last 24 hr 09/02/25 09/02/25 09/03/25 09:11 10:30 05:17 WBC 9.1 RBC 2.98 L Hgb 7.6 L Hct 24.2 L MCV 81 MCH 25.5 MCHC 31.4 RDW Std Deviation 57.3 H Plt Count 307 Neut % (Auto) 63 Lymph % (Auto) 22 [place] % (Auto) 8 Eos % (Auto) 6 Baso % (Auto) 1 Neut # (Auto) 5.7 Lymph # (Auto) 2.0 [place] # (Auto) 0.7 Eos # (Auto) 0.6 H Baso # (Auto) 0.1 Immature Gran # (Auto) 0.04 H Absolute Nucleated RBC 0.00 Immature Gran % 0 Nucleated RBC % 0 Sodium 144 Potassium 4.4 Chloride 110 H Carbon Dioxide 23.1 Anion Gap 11 BUN 20 Creatinine 0.6 Estim Creat Clear Calc 147.3 eGFR > 60 BUN/Creatinine Ratio 33 H Glucose 162 H Calculated Osmolality 293 Calcium 8.5 Corrected Calcium 9.4 Phosphorus 3.5 Magnesium 1.7 Total Bilirubin 0.8 AST 44 H ALT 45 Alkaline Phosphatase 415 H D Total Protein 7.3 Albumin 2.9 L Globulin 4.4 H Albumin/Globulin Ratio 0.7 L Ur Collection Type Catheter Urine Color Yellow Urine Clarity Hazy Urine pH 5.5 Ur Specific [place] 1.016 Urine Protein 1+ A Urine Glucose (UA) Negative Urine Ketones Negative Urine Blood 3+ A Urine Nitrite Negative Urine Bilirubin Negative Urine Urobilinogen (Auto) Negative Ur Leukocyte Esterase Positive Urine RBC 290 H Urine WBC 1820 H Ur Squamous Epith Cells 0 Urine Bacteria 4+ A Vancomycin Trough 15.2 H ABG Interpretation ABG results: 08/19/25 08/19/25 08/30/25 20:08 22:17 07:40 ABG pH 7.23 L 7.38 D 7.35 ABG pCO2 47 36 D 34 ABG pO2 85 140 H D 83 ABG HCO3 20 21 19 L ABG O2 Saturation 95 100 H 98 ABG Base Excess -8 L -4 L -6 L Quality Measures Quality Measures VTE prophylaxis Advance care planning discussed with:: spouse, child and other Assessment & Plan Assessment Current Active Medications: Generic Name Dose Route Start Last Admin Trade Name Freq PRN Reason Stop Dose Admin Acetaminophen 650 mg 08/19/25 15:10 Acetaminophen 325 Mg Tablet PO 09/18/25 15:09 Q6H PRN Fever >100.4 Acetaminophen 650 mg 08/19/25 15:15 09/02/25 20:15 Acetaminophen 325 Mg Tablet PO 09/18/25 15:14 650 mg Q6H PRN Administration PAIN SCALE 1-3 (mild Apixaban 2.5 mg 08/20/25 21:00 09/03/25 09:01 Apixaban 2.5 Mg Tablet PO 09/19/25 20:59 2.5 mg BID IMANI Administration Balsam Fertile/Dickinson Oil 0 gm 08/20/25 21:00 09/03/25 09:02 Balsam Michael/Dickinson Oil (Venelex) 60 Gm Tube TOP 09/19/25 20:59 1 applicatio BID IMANI Administration Bisacodyl 10 mg 08/30/25 16:07 Bisacodyl 10 Mg Supp MS 09/29/25 16:14 QDAY PRN Constipation Protocol Bumetanide 1 mg 08/29/25 10:15 08/30/25 09:48 Bumetanide Inj 0.25 Mg/Ml Vial 4 Ml IVP 09/28/25 10:14 Not Given On Hold: 08/30/25 10:32 QDAY IMANI Cefuroxime Axetil 500 mg 08/31/25 21:00 09/03/25 09:01 Cefuroxime Axetil 250 Mg Tablet PO 09/12/25 20:59 500 mg BID IMANI Administration Dextrose 25 ml 08/21/25 00:25 08/23/25 21:46 Dextrose 50%-Water Inj 50 Ml Syringe IV 09/20/25 00:24 25 ml Q15MIN PRN Administration BG 50-70 responsive npo pt Dextrose 50 ml 08/21/25 00:25 Dextrose 50%-Water Inj 50 Ml Syringe IV 09/20/25 00:24 Q15MIN PRN BG <50 OR BG <70 & pt unresponsive Diphenhydramine HCl 25 mg 08/19/25 17:55 Diphenhydramine Elix 25 Mg/10 Ml Udc GT 09/18/25 17:01 Q4H PRN Allergic Symptoms Gabapentin 600 mg 08/19/25 21:00 08/29/25 09:05 Gabapentin 300 Mg Capsule GT 09/18/25 20:59 600 mg On Hold: 08/29/25 09:42 BID IMANI Administration Glucagon 1 mg 08/21/25 00:25 Glucagon Inj 1 Mg Vial IM Q15MIN PRN BG <70, and no IV access Guaifenesin 100 mg 08/22/25 14:00 09/03/25 05:21 Guaifenesin Syrup 200 Mg/10 Ml Udc GT 09/21/25 13:59 100 mg TID IMANI Administration Protocol Insulin Degludec 15 unit 08/29/25 09:00 09/03/25 09:01 Insulin Degludec 5 Unit/0.05 Ml (Per 5 Units) SC 09/28/25 08:59 15 unit QDAY IMANI Administration Insulin Human Lispro 2 unit 08/22/25 00:00 09/03/25 05:19 Insulin Lispro (Admelog) 1 Unit/0.01 Ml Unit SC 09/21/25 00:00 Not Given Q6HR IMANI Insulin Human Lispro 0 unit 08/24/25 12:00 09/03/25 05:20 Insulin Lispro (Admelog) 1 Unit/0.01 Ml Unit SC 09/23/25 11:59 Not Given Q6HR [facility] Protocol Ipratropium [place] 0.5 mg 08/19/25 17:04 Ipratropium Rt 0.5 Mg/ 2.5 Ml Nebu INH 09/18/25 17:03 Q4H PRN SHORTNESS OF BREATH OR WHEEZE Labetalol HCl 10 mg 08/25/25 11:20 Labetalol Inj 5 Mg/Ml Vial 4 Ml IVP 09/24/25 11:29 Q10MIN PRN hypertension, SBP >160 Midodrine 10 mg 09/01/25 14:00 09/03/25 05:21 Midodrine 5 Mg Tablet GT 09/29/25 13:59 10 mg TID IMANI Administration Multivitamins 1 tab 08/20/25 09:15 09/03/25 09:01 Multivitamins Tablet NG 09/19/25 09:14 1 tab QDAY IMANI Administration Nystatin 0 gm 08/30/25 21:00 09/03/25 09:02 Nystatin Cr 30 Gm Tube TOP 09/29/25 20:59 1 applicatio BID IMANI Administration Pantoprazole Sodium 40 mg 09/01/25 09:15 09/03/25 09:01 Pantoprazole Inj 40 Mg Vial IVP 10/01/25 09:14 40 mg QDAY IMANI Administration Simethicone 80 mg 08/21/25 21:00 09/03/25 09:01 Simethicone 80 Mg Chew GT 09/20/25 20:59 80 mg BID IMANI Administration Zinc Sulfate 220 mg 08/20/25 09:15 09/03/25 09:01 Zinc Sulfate 220 Mg Capsule NG 09/19/25 09:14 220 mg QDAY IMANI Administration Plan Mr. Kwadwo Sanchez is a 80 year old male w/ an extensive past medical history consisting of 2x CVA, hypoxic respiratory failure s/p tracheostomy, HTN, T2DM, Sacral ulcers, vertebral osteomyelitis, s/p PEG tube, chronic german catheterization and multiple DVT's coming in for altered mental status and tachycardia. Admitted to ICU s/p code blue and has since been downgraded to medicine for further management of sepsis 2/2 pneumonia complicated by potential gastrointestinal bleeding s/p 2 units prbc, now has pus from german catheter but patient is stable, afebrile, cx negative. 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, sepsis due to this organism unlikely given clinical improvement on zosyn that has been narrowed down to cefepime (now changed to cefuroxime) Pustulent penile discharge noted since 09/02 Rx: -cefuroxime 500 mg po bid 08/31-09/12 -Indwelling German catheter was replaced on 08/30 due to pus around the urethra -ID consulted, appreciate recs -Ordered repeat urine cultures, pending #Nutrition #Hypoglycemia #PEG-tube Dependence Hx of PEG tube dependence s/p stroke in 2021 Rx: -Dr. Conner assessed PEG tube, states it can be replaced with better fitting tube. -Nutrition following, recommendations as needed #Acute on chronic, hypoxic, respiratory failure, i/s/o bilateral pleural effusions #??Pericardial effusion #??Aspiration pneumonia Patient had rapid response on 08/29 for hypoxia in the 50s and bradycardia in the 30s Dx: -08/29 repeat CXR ordered, showed worsening haziness and bilateral pleural effusion -08/29 echocardiogram ordered, showed EF 50-55% with grade I diastolic dysfunction. Mild AV sclerosis with trace MR and TR. -ABG was ordered but could not be obtained due to patient being a hard stick -08/29 lactate, ammonia, and procalcitonin ordered, all negative Rx: -Bumex 1 mg IV daily (HELD) -Holding tube feeds #Sepsis, resolved #Ventilator-associated pneumonia #Bilateral pleural effusions #Bacteremia Tracheostomy mechanical ventilation dependent, Fever, Leukocytosis Hx of admissions for pneumonia, Pseudomonas + Differential diagnosis = ventilator-associated pneumonias vs community-acquired pneumonia vs other CT Chest 08/19 Bilateral Pleural Effusions s/p code blue --> ICU admission for vasopressor support and transfusion --> back to medicine for further management 08/19 1 Blood cultures Enterobacter cloacae, Proteus mirabilis Possible contamination, to follow up with lab 08/19 sputum trachea = Pseudomonas aeruginosa Rx: - Cefuroxime for remainder of 2 week course [08/31-09/12/25] #Hyperbilirubinemia, RESOLVED #Transaminitis, IMPROVING #Elevated alkaline phosphatase, IMPROVING #Lactic acidosis, RESOLVED #Leukocytosis, RESOLVED On 08/28 patient was noted to have new leukocytosis, lactic acidosis, hyperbilirubinemia, transaminitis, and elevated alkaline phosphatase concerning for bile duct obstruction in the setting of increasing abdominal distention and apparent pain Initially suspected that the cause of these new abnormal labs was adverse medication effect from cefepime Dx: ? Liver ultrasound ordered, showed multiple gallstones but no dilation of the common bile duct ? KUB ordered, showed significant stool burden ? MRCP deferred due to improvement in bilirubin and LFTs Rx: - Cefuroxime per ID as above, continue vancomycin ? Mineral oil enema ordered, may need to consider halting tube feeds if unsuccessful in alleviating patient's significant stool burden #Gastrointestinal bleeding, STABLE #Anemia, normocytic baseline Hgb appears to be 8/9 Noted hx of gastrointestinal bleed, unknown record of last BM w/ mandie blood Acute drop in Hgb 5.6 from 7.0 08/22; transfused 2U PRBC EGD was done on 25 August 2005 showed gastritis, duodenitis. Hemoglobin remains stable FOBT negative 08/24 Plan ? Protonix IV 40 mg daily ? Outpatient follow-up with the zigzag stitcher - Transfuse <Hgb 7 #Pericardial Effusion #Elevated troponin Pericardial Effusion 33mm found 08/19 CT Chest ECHO 08/19 EF ~ 40-50% Troponin 08/19 .128 -> 0.79 -> 0.464 most likely elevated due to heart strain in the setting of hypovolemic shock 2/2 sepsis; coupled with pericardial effusion w/out circulatory compromise/obstruction - per Cardiology: Nonoperative management - F/U O/P #Tracheostomy #Respiratory Failure Tracheostomy [place] [address] Langford 2/2 chronic respiratory failure Has not been able to wean off trach -Continue trach ventilator -Respiratory Therapy to follow -Duonebs q4h PRN for SoB #DVT Hx of Bilateral Femoral DVT's diagnosed 05/2025 Previous talks about IVC filter placement; per conversation with , Mr. Sanchez was transferred to [place] to get IVC filter but it was never done -To follow up again on IVC filter placement -DVT prophylaxis = Eliquis 2.5 PO BID(peg tube) #Hypotension Admission BP 99/64 Rapid response called on 08/30 for MAP 41 Rx: -1 L bolus of LR and 1 L LR maintenance @ 75 cc/hr -Bumex held -Midodrine 10 mg TID PRN -Holding home antihypertensives in the setting of hypovolemia #Metabolic acidosis, likely 2/2 GI losses (resolved) - S/p Bicarbonate ampoule x 1 Rx: - Continue to monitor daily labs #T2DM -ISS (correction scale 3) Degludec 10U QDay Lispro 2 U SC q6H Sugar Checks Q4Hr #Sacral Ulcer Wound(s) #Toe blistering Hx of sacral ulcer wounds -Wound nursing management #Hyperlipidemia - Atorvastatin 20mg #Allergies Hx of angioedema w/ NYLA, ARB-Angiotensin receptor antagonists Hx of hives, itching, rash - heat vs other -Avoid use for management of BP medication #Neuropathy Hx of bilateral neuropathy - Gabapentin 600mg BID #Constipation -Lactulose 10gm/15mL q24 -Milk of Magnesia 400mg/5mL - give if no BM for 2 days #Cerebral Vascular Accident #Stroke #Quadraplegia Stroke(s) in 2021, since then has had: Tracheostomy, PEG tube dependence Last documented event of stroke = 08/19 CT Head no evidence of hemorrhagic stroke -Continued management of above conditions with corresponding therapies/medications Hospital management: Disposition: Telemetry, managing newly abnormal hyperbilirubinemia, transaminitis, elevated alkaline phosphatase, and lactic acidosis Lines: New left IJ central line placed 08/30 German: Indwelling German catheter replaced as of 08/30 Diet: PEG tube feeds (resumed on 08/30 due to BG 74) DVT Prophylaxis: Eliquis CODE STATUS: Full Code Patient plan of care was discussed with the attending physician, Dr. Deluna & senior resident Dr. Magda Méndez MD PGY-1 Attending Provider Attestation/Addendum I have discussed and was present for the essential components of the history, physical examination, diagnosis, and treatment plan with the resident. I agree with the patient's care as documented by the resident and amended herein by me. Hipolito Deluna DO. Although this document has been carefully reviewed, there may still be some phonetic and other typographical errors. These errors are purely grammatical due to imperfections in the software program and should not be construed in any way to compromise the substance of the patient's medical care during this visit.
--- NOTE | 2025-09-03 09:50 | PD.IDPROG ---
Subjective Subjective Interval history: asked to see . seen last week and signed off. urine cx from 08/19 is old and burkholderia is formerly a pseudomonas species and is often a contaminant. was changed to cefuroxime the other day for cxr changes german in a long time. Exam Vital Signs Temp Pulse Resp BP Pulse Ox O2 Del Method O2 Flow Rate 97.6 F 83 20 134/78 H 100 Mechanical Ventilation 35 09/03/25 08:00 09/03/25 08:00 09/03/25 08:00 09/03/25 08:00 09/03/25 08:00 09/03/25 08:00 09/03/25 08:00 FiO2 35 09/03/25 08:00 Narrative Exam static. has untapped effusions and is 80 yoa. no eol (end of life) plan noted. on vent. has german and rectal tube noted. Objective - Internal Medicine Labs 09/03/25 05:17 09/03/25 05:17 Labs: Laboratory Results - last 24 hr 09/02/25 09/02/25 09/03/25 09:11 10:30 05:17 WBC 9.1 RBC 2.98 L Hgb 7.6 L Hct 24.2 L MCV 81 MCH 25.5 MCHC 31.4 RDW Std Deviation 57.3 H Plt Count 307 Neut % (Auto) 63 Lymph % (Auto) 22 [place] % (Auto) 8 Eos % (Auto) 6 Baso % (Auto) 1 Neut # (Auto) 5.7 Lymph # (Auto) 2.0 [place] # (Auto) 0.7 Eos # (Auto) 0.6 H Baso # (Auto) 0.1 Immature Gran # (Auto) 0.04 H Absolute Nucleated RBC 0.00 Immature Gran % 0 Nucleated RBC % 0 Sodium 144 Potassium 4.4 Chloride 110 H Carbon Dioxide 23.1 Anion Gap 11 BUN 20 Creatinine 0.6 Estim Creat Clear Calc 147.3 eGFR > 60 BUN/Creatinine Ratio 33 H Glucose 162 H Calculated Osmolality 293 Calcium 8.5 Corrected Calcium 9.4 Phosphorus 3.5 Magnesium 1.7 Total Bilirubin 0.8 AST 44 H ALT 45 Alkaline Phosphatase 415 H D Total Protein 7.3 Albumin 2.9 L Globulin 4.4 H Albumin/Globulin Ratio 0.7 L Ur Collection Type Catheter Urine Color Yellow Urine Clarity Hazy Urine pH 5.5 Ur Specific [place] 1.016 Urine Protein 1+ A Urine Glucose (UA) Negative Urine Ketones Negative Urine Blood 3+ A Urine Nitrite Negative Urine Bilirubin Negative Urine Urobilinogen (Auto) Negative Ur Leukocyte Esterase Positive Urine RBC 290 H Urine WBC 1820 H Ur Squamous Epith Cells 0 Urine Bacteria 4+ A Vancomycin Trough 15.2 H ABG Interpretation ABG results: 08/19/25 08/19/25 08/30/25 20:08 22:17 07:40 ABG pH 7.23 L 7.38 D 7.35 ABG pCO2 47 36 D 34 ABG pO2 85 140 H D 83 ABG HCO3 20 21 19 L ABG O2 Saturation 95 100 H 98 ABG Base Excess -8 L -4 L -6 L Assessment & Plan A&P Narrative anemia, gi seeing abnormal imaging of chest if the effusion is significant then it should be drained, as he is a full code or address code status formally urine is likely colonized. if you want to target it. then change the german and repeat the urine. repeat cx noted but unclear if german changed changed to oral cefuroxime on wednesday for remainder of course. <2 more weeks ok will see again prn. I will be away wed and wednesday of this week so best I can do is remote and I do not do procedures Time Spent With Patient Time: Total time spent is greater than 50% in coordination of care (as documented) at patient's floor/unit and/or counseling patient:
--- NOTE | 2025-09-03 11:16 | XR_ITS ---
Examination: Arterial duplex lower extremity study. Date and time of exam: September 03, 2025, 1437 hours INDICATIONS: Nonhealing right foot wounds 2 months, cooler lower right extremity Findings: Duplex sonographic imaging of the lower extremity arteries using B-mode/Ruiz scale imaging and Doppler spectral analysis and color flow. Ankle brachial indices have been recorded. Right common femoral artery demonstrates triphasic flow. Right superficial femoral artery demonstrates triphasic flow. Right popliteal artery demonstrates monophasic flow. Right posterior tibial artery demonstrated monophasic flow. Right ankle/brachial index is 0.77. Left common femoral artery demonstrates biphasic flow. Left superficial femoral artery demonstrates biphasic flow. Left popliteal artery demonstrates biphasic flow. Left posterior tibial artery demonstrated biphasic flow. Left ankle/brachial index is 1.1. Impression: Significant right lower extremity peripheral obstructive arterial disease Consider correlation with CTA abdominal aorta iliofemoral runoff post intravenous contrast
--- NOTE | 2025-09-03 11:51 | ESCONSULT_ITS ---
RE: NI, BOLDEN : 1945 DATE OF CONSULTATION: 09/03/2025 Patient is a 80-year-old man who is on a ventilator. His code status has not been formally addressed. It probably needs to be. I saw him in consultation in April. I saw him again here just last week and changed him to p.o. medications. He has effusions bilaterally that have not been drained. He has medical problems that include chronic renal failure, chronic encephalopathy, chronic kidney disease and diabetes. He lives in a detention. His vaccine status and surgical status are not noted other than noting the trach and the PEG. His surgeries are presumed to have been done elsewhere, but I have very little data on him. His cultures have shown pseudomonas and other germ. He was given Zosyn for a while. There is a lot of anxiety about the urine culture but that is probably contaminated or colonized. He is on 40% on a ventilator. I will be away on Wednesday and Wednesday of this week and unable to see him in person. So if you wish to do something, you should probably drain the effusions. If you want to target the urine culture, it may be colonization. If it is so, please change his urinary catheter and repeat the urine. If you have not changed his urinary catheter and you are just checking a urine again consider the possibility of colonization. I will check on him down the road remotely but I do not plan to see him further unless there is an issue. DT: 10:03:48 TT: 11:49:00 Ref: [id number] - TID: [id number] [facility]
[2025-09-03] MEDS: INSULIN LISPRO (AdmeLOG) 1 UNIT/0.01 ML UNIT 2 UNIT SC ×2 (11:52→17:41)
[2025-09-03] MEDS: ACETAMINOPHEN 325 MG TABLET 650 MG PO (12:07)
--- NOTE | 2025-09-03 12:09 | PD.IMPROG ---
Documentation for date of: 09/03/25 Subjective Subjective Interval history: PEG site checked slight drainage being cleaned with Betadine Exam Vital Signs Temp Pulse Resp BP Pulse Ox O2 Del Method O2 Flow Rate 97.5 F 83 20 149/81 H 100 Mechanical Ventilation 35 09/03/25 11:42 09/03/25 11:42 09/03/25 11:42 09/03/25 11:42 09/03/25 11:42 09/03/25 11:42 09/03/25 11:42 FiO2 35 09/03/25 11:42 Objective Labs 09/03/25 05:17 09/03/25 05:17 Labs: Laboratory Results - last 24 hr 09/02/25 09/03/25 10:30 05:17 WBC 9.1 RBC 2.98 L Hgb 7.6 L Hct 24.2 L MCV 81 MCH 25.5 MCHC 31.4 RDW Std Deviation 57.3 H Plt Count 307 Neut % (Auto) 63 Lymph % (Auto) 22 [place] % (Auto) 8 Eos % (Auto) 6 Baso % (Auto) 1 Neut # (Auto) 5.7 Lymph # (Auto) 2.0 [place] # (Auto) 0.7 Eos # (Auto) 0.6 H Baso # (Auto) 0.1 Immature Gran # (Auto) 0.04 H Absolute Nucleated RBC 0.00 Immature Gran % 0 Nucleated RBC % 0 Sodium 144 Potassium 4.4 Chloride 110 H Carbon Dioxide 23.1 Anion Gap 11 BUN 20 Creatinine 0.6 Estim Creat Clear Calc 147.3 eGFR > 60 BUN/Creatinine Ratio 33 H Glucose 162 H Calculated Osmolality 293 Calcium 8.5 Corrected Calcium 9.4 Phosphorus 3.5 Magnesium 1.7 Total Bilirubin 0.8 AST 44 H ALT 45 Alkaline Phosphatase 415 H D Total Protein 7.3 Albumin 2.9 L Globulin 4.4 H Albumin/Globulin Ratio 0.7 L Ur Collection Type Catheter Urine Color Yellow Urine Clarity Hazy Urine pH 5.5 Ur Specific [place] 1.016 Urine Protein 1+ A Urine Glucose (UA) Negative Urine Ketones Negative Urine Blood 3+ A Urine Nitrite Negative Urine Bilirubin Negative Urine Urobilinogen (Auto) Negative Ur Leukocyte Esterase Positive Urine RBC 290 H Urine WBC 1820 H Ur Squamous Epith Cells 0 Urine Bacteria 4+ A Impressions Impression: PEG site evaluation continue clean the site With Betadine every shift as well as new method of dressing change ABG Interpretation ABG results: 08/19/25 08/19/25 08/30/25 20:08 22:17 07:40 ABG pH 7.23 L 7.38 D 7.35 ABG pCO2 47 36 D 34 ABG pO2 85 140 H D 83 ABG HCO3 20 21 19 L ABG O2 Saturation 95 100 H 98 ABG Base Excess -8 L -4 L -6 L Assessment & Plan A&P Narrative anemia, gi seeing abnormal imaging of chest if the effusion is significant then it should be drained, as he is a full code or address code status formally urine is likely colonized. if you want to target it. then change the german and repeat the urine. repeat cx noted but unclear if german changed changed to oral cefuroxime on wednesday for remainder of course. <2 more weeks ok will see again prn. I will be away wed and wednesday of this week so best I can do is remote and I do not do procedures Time Spent With Patient Time: Total time spent is greater than 50% in coordination of care (as documented) at patient's floor/unit and/or counseling patient:
--- NOTE | 2025-09-03 16:38 | PC.SS ---
Rounding Note: Urine cultures are pending.? I & D recommendations are pending.
[2025-09-04] VITALS (14 sets, daily range): BP systolic 112–155; BP diastolic 71–91; PULSE 77–103; RESP 16–26; TEMP 36–36.7; O2SAT 94–100; BMI 36.6
[2025-09-04] MEDS: INSULIN LISPRO (AdmeLOG) 1 UNIT/0.01 ML UNIT 2 UNIT SC ×4 (01:15→17:41)
[2025-09-04] MEDS: guaiFENesin SYRUP 200 MG/10 ML UDC 100 MG GT ×3 (05:14→21:16)
[2025-09-04] MEDS: MIDODRINE 5 MG TABLET 10 MG GT ×3 (05:14→21:18)
[2025-09-04 07:03] LABS: Alanine Aminotransferase 41 U/L (10-49); Albumin, Serum 2.9 gm/dL (3.4-4.8); Albumin/Globulin Ratio 0.6 (1.2-2.2); Alkaline Phosphatase 384 U/L (46-116); Anion Gap 12 (7-16); Aspartate Amino Transferase 55 U/L (0-34); BUN/Creatinine Ratio 32 Ratio (12-20); Bilirubin,Total 0.7 mg/dL (0.3-1.2); Blood Urea Nitrogen 19 mg/dL (9-23); Calcium 8.5 mg/dL (8.3-10.6); Calcium (Corrected) 9.4 mg/dL (8.5-10.1); Carbon Dioxide 23.0 mMol/L (20.0-31.0); Chloride 108 mMol/L (98-107); Creatinine (Component) 0.6 mg/dL (0.6-1.3); Estimated Creatinine Clearance 145.0 mL/min (>60); Globulin 4.7 gm/dL (2.3-3.5); Glucose 146 mg/dL (74-106); Magnesium 1.5 mg/dL (1.6-2.6); Osmolality,Calculated 290 (275-295); Phosphorous 3.6 mg/dL (2.4-5.1); Potassium 5.1 mMol/L (3.4-5.1); Sodium 143 mMol/L (136-145); Total Protein 7.6 gm/dL (5.7-8.2); eGFR > 60 See Note
[2025-09-04 08:43] LABS: Basophils # (Auto) 0.1 Thou/mm3 (0.0-0.2); Basophils % (Auto) 1 % (0-2.5); Eosinophils # (Auto) 0.9 Thou/mm3 (0.0-0.5); Eosinophils % (Auto) 8 % (0-10); Hematocrit 25.5 % (41.0-53.0); Immature Granulocytes Auto 0.05 Thou/mm3 (0.00-0.00); Lymphocytes # (Auto) 2.0 Thou/mm3 (1.0-4.8); Lymphocytes % (Auto) 18 % (10-50); Mean Corpuscular HGB Conc 31.0 g/dl (31.0-37.0); Mean Corpuscular Hemoglobin 25.5 pg (25.0-35.0); Mean Corpuscular Volume 82 fL (80-100); Monocytes # (Auto) 0.7 Thou/mm3 (0.0-0.8); Monocytes % (Auto) 6 % (0-12); Neutrophils # (Auto) 7.2 Thou/mm3 (1.8-7.7); Neutrophils % (Auto) 66 % (37-80); Nucleated Red Blood Cell # 0.02 Thou/mm3 (0.00-0.00); Nucleated Red Blood Cell % 0 /100 WBC (0); Platelet Count 340 Thou/mm3 (140-440); RDW Standard Deviation 58.8 fL (35.1-43.9); Red Blood Count 3.10 Miln/mm3 (4.50-5.90); White Blood Count 10.9 Thou/mm3 (3.8-10.6)
[2025-09-04 08:45] LABS: Hemoglobin 7.9 g/dL (13.5-16.0)
--- NOTE | 2025-09-04 09:15 | PC.SS ---
Update: Urine cultures are pending. Patient on oral antibiotics. I & D recommendations are pending.
[2025-09-04 09:16] LABS: Glucose Estimated Average 194 mg/dL (80-131); Hemoglobin A1C 8.4 % Hgb (4.8-6.0)
[2025-09-04] MEDS: Magnesium Sulfate 4 GM Ivpb 4 GM/50 ML BAG IV (09:24)
[2025-09-04] MEDS: ZINC SULFATE 220 MG CAPSULE NG (09:33)
[2025-09-04] MEDS: SIMETHICONE 80 MG CHEW GT ×2 (09:33→21:16)
[2025-09-04] MEDS: BALSAM PERU/CASTOR OIL (Venelex) 60 GM TUBE TOP ×2 (09:33→22:06)
[2025-09-04] MEDS: APIXABAN 2.5 MG TABLET PO ×2 (09:33→21:15)
[2025-09-04] MEDS: MULTIVITAMINS TABLET 1 TAB NG (09:33)
[2025-09-04] MEDS: NYSTATIN CR 30 GM TUBE TOP ×2 (09:34→21:16)
[2025-09-04] MEDS: INSULIN DEGLUDEC 5 UNIT/0.05 ML (PER 5 UNITS) 15 UNIT SC (09:36)
--- NOTE | 2025-09-04 10:09 | ESPR_ITS ---
<Statement entered by Dona Armijo MD - 09/04/25 11:45> Pt is seen at bedside, urine cultures have no growth. Pending further recommendations from ID regarding continuing antibiotics and the duration as the cultures are negative and patient does have minimal pus at the tip of German catheter. Patient has remained afebrile and WBC count of 10.9. A goals of care discussion will need to be held at some point with the family to discuss further plan regarding patient's CODE STATUS because patient is unable to return to the current facility he is from with full code. Patient is starting to have multiple ulceration bilaterally on the feet. Wound care is on board. Currently patient is undergoing PEG tube cleaning management as per GI recommendation will discuss with GI if there are any further plans to replace the current PEG tube. Patient was seen and examined by me personally. I have directly supervised and reviewed documentation by the team resident and agree with its findings. ------- Plan of care was discussed with the attending, Dr. Hang Armijo, PGY-2 Documentation for date of: 09/04/25 Subjective Subjective Interval history: No acute events overnight. Patient continues to be in stable condition, afebrile, vital signs stable. Urine cultures came back at minimal/non- significant growth. Continuing PEG tube area cleaning with betadine, GI following. Planned to have PEG tube replaced for better fitting to prevent leakage/infection. Discussed with Maryuri at [facility] and was informed that patient is not able to be accepted back at this time given recent CODE BLUE at [facility]. Maryuri stated that her facility is able to give CPR, but is not able to give full potentially necessary care that a full CODE STATUS patient would need. Discussed with at bedside, Sherlyn, said discussion with Maryuri. stated that she would have her daughter call Maryuri back to confirm this is true and that [facility]. Exam Vital Signs Temp Pulse Resp BP Pulse Ox O2 Del Method O2 Flow Rate 97.3 F 85 20 155/91 H 100 Mechanical Ventilation 35 09/04/25 08:00 09/04/25 08:00 09/04/25 08:00 09/04/25 08:00 09/04/25 08:00 09/04/25 08:00 09/04/25 08:00 FiO2 30 09/04/25 08:00 Narrative Exam GEN: Eyes moving spontaneously, does not appear to track. Does not seem to be in distress. On mechanical ventilation VC. HEENT: NC/AC, PERRLA, oral mucosa moist, neck supple CVS: RRR, S1-S2 present, no murmurs appreciated RESP: Good air entry bilaterally, transmitted sound from the tracheostomy was heard in both lungs. No signs of respiratory distress. GI: More tense and distended than yesterday, seemingly tender, NBS MSK: Unable to move any extremities, spastic deformity of the right leg; posterior wounds (refer to chart at nursing station); L big toe blister SKIN: Skin exfoliation of the right leg. Trace edema. EDUCATION ASSISTANT: Unable to assess cranial nerves or sensory due to patient's chronic condition. Objective Labs 09/05/25 05:35 09/05/25 05:35 Labs: Laboratory Results - last 24 hr 09/04/25 09/04/25 05:25 07:48 WBC 10.9 H RBC 3.10 L Hgb 7.9 L Hct 25.5 L MCV 82 MCH 25.5 MCHC 31.0 RDW Std Deviation 58.8 H Plt Count 340 D Neut % (Auto) 66 Lymph % (Auto) 18 [place] % (Auto) 6 Eos % (Auto) 8 Baso % (Auto) 1 Neut # (Auto) 7.2 Lymph # (Auto) 2.0 [place] # (Auto) 0.7 Eos # (Auto) 0.9 H Baso # (Auto) 0.1 Immature Gran # (Auto) 0.05 H Absolute Nucleated RBC 0.02 H Immature Gran % 1 H Nucleated RBC % 0 Sodium 143 Potassium 5.1 D Chloride 108 H Carbon Dioxide 23.0 Anion Gap 12 BUN 19 Creatinine 0.6 Estim Creat Clear Calc 145.0 eGFR > 60 BUN/Creatinine Ratio 32 H Glucose [address] Glu mg/dL 194 H Hemoglobin A1c 8.4 H Calculated Osmolality 290 Calcium 8.5 Corrected Calcium 9.4 Phosphorus 3.6 Magnesium 1.5 L Total Bilirubin 0.7 AST 55 H ALT 41 Alkaline Phosphatase 384 H D Total Protein 7.6 Albumin 2.9 L Globulin 4.7 H Albumin/Globulin Ratio 0.6 L ABG Interpretation ABG results: 08/19/25 08/19/25 08/30/25 20:08 22:17 07:40 ABG pH 7.23 L 7.38 D 7.35 ABG pCO2 47 36 D 34 ABG pO2 85 140 H D 83 ABG HCO3 20 21 19 L ABG O2 Saturation 95 100 H 98 ABG Base Excess -8 L -4 L -6 L Quality Measures Quality Measures VTE prophylaxis Advance care planning discussed with:: patient, spouse and child Assessment & Plan Assessment Current Active Medications: Generic Name Dose Route Start Last Admin Trade Name Freq PRN Reason Stop Dose Admin Acetaminophen 650 mg 08/19/25 15:10 Acetaminophen 325 Mg Tablet PO 09/18/25 15:09 Q6H PRN Fever >100.4 Acetaminophen 650 mg 08/19/25 15:15 09/03/25 12:07 Acetaminophen 325 Mg Tablet PO 09/18/25 15:14 650 mg Q6H PRN Administration PAIN SCALE 1-3 (mild Apixaban 2.5 mg 08/20/25 21:00 09/04/25 09:33 Apixaban 2.5 Mg Tablet PO 09/19/25 20:59 2.5 mg BID IMANI Administration Balsam [place] Oil 0 gm 08/20/25 21:00 09/04/25 09:33 Balsam [place] Oil (Venelex) 60 Gm Tube TOP 09/19/25 20:59 1 applicatio BID IMANI Administration Bisacodyl 10 mg 08/30/25 16:07 Bisacodyl 10 Mg Supp MD 09/29/25 16:14 QDAY PRN Constipation Protocol Bumetanide 1 mg 08/29/25 10:15 08/30/25 09:48 Bumetanide Inj 0.25 Mg/Ml Vial 4 Ml IVP 09/28/25 10:14 Not Given On Hold: 08/30/25 10:32 QDAY IMANI Cefuroxime Axetil 500 mg 08/31/25 21:00 09/04/25 09:33 Cefuroxime Axetil 250 Mg Tablet PO 09/12/25 20:59 500 mg BID IMANI Administration Dextrose 25 ml 08/21/25 00:25 08/23/25 21:46 Dextrose 50%-Water Inj 50 Ml Syringe IV 09/20/25 00:24 25 ml Q15MIN PRN Administration BG 50-70 responsive npo pt Dextrose 50 ml 08/21/25 00:25 Dextrose 50%-Water Inj 50 Ml Syringe IV 09/20/25 00:24 Q15MIN PRN BG <50 OR BG <70 & pt unresponsive Diphenhydramine HCl 25 mg 08/19/25 17:55 Diphenhydramine Elix 25 Mg/10 Ml [facility] 09/18/25 17:01 Q4H PRN Allergic Symptoms Gabapentin 600 mg 08/19/25 21:00 08/29/25 09:05 Gabapentin 300 Mg Capsule 09/18/25 20:59 600 mg On Hold: 08/29/25 09:42 BID IMANI Administration Glucagon 1 mg 08/21/25 00:25 Glucagon Inj 1 Mg Vial IM Q15MIN PRN BG <70, and no IV access Guaifenesin 100 mg 08/22/25 14:00 09/04/25 05:14 Guaifenesin Syrup 200 Mg/10 Ml [facility] 09/21/25 13:59 100 mg TID IMANI Administration Protocol Magnesium Sulfate 4 gm in 50 mls @ 12.5 mls/hr 09/04/25 08:39 09/04/25 09:24 Magnesium Sulfate Ivpb IV 09/04/25 12:38 12.5 mls/hr X1 ONE Administration Insulin Degludec 15 unit 08/29/25 09:00 09/04/25 09:36 Insulin Degludec 5 Unit/0.05 Ml (Per 5 Units) [place] 09/28/25 08:59 15 unit QDAY IMANI Administration Insulin Human Lispro 2 unit 08/22/25 00:00 09/04/25 05:16 Insulin Lispro (Admelog) 1 Unit/0.01 Ml Unit SC 09/21/25 00:00 2 unit Q6HR IMANI Administration Insulin Human Lispro 0 unit 08/24/25 12:00 09/04/25 05:15 Insulin Lispro (Admelog) 1 Unit/0.01 Ml Unit SC 09/23/25 11:59 Not Given Q6HR [facility] Protocol Ipratropium [place] 0.5 mg 08/19/25 17:04 Ipratropium Rt 0.5 Mg/ 2.5 Ml Nebu INH 09/18/25 17:03 Q4H PRN SHORTNESS OF BREATH OR WHEEZE Labetalol HCl 10 mg 08/25/25 11:20 Labetalol Inj 5 Mg/Ml Vial 4 Ml IVP 09/24/25 11:29 Q10MIN PRN hypertension, SBP >160 Midodrine 10 mg 09/01/25 14:00 09/04/25 05:14 Midodrine 5 Mg Tablet GT 09/29/25 13:59 10 mg TID IMANI Administration Multivitamins 1 tab 08/20/25 09:15 09/04/25 09:33 Multivitamins Tablet NG 09/19/25 09:14 1 tab QDAY IMANI Administration Nystatin 0 gm 08/30/25 21:00 09/04/25 09:34 Nystatin Cr 30 Gm Tube TOP 09/29/25 20:59 1 applicatio BID IMANI Administration Pantoprazole Sodium 40 mg 09/01/25 09:15 09/04/25 09:30 Pantoprazole Inj 40 Mg Vial IVP 10/01/25 09:14 40 mg QDAY IMANI Administration Simethicone 80 mg 08/21/25 21:00 09/04/25 09:33 Simethicone 80 Mg Chew GT 09/20/25 20:59 80 mg BID IMANI Administration Zinc Sulfate 220 mg 08/20/25 09:15 09/04/25 09:33 Zinc Sulfate 220 Mg Capsule NG 09/19/25 09:14 220 mg QDAY IMANI Administration Plan Mr. Kwadwo Sanchez is a 80 year old male w/ an extensive past medical history consisting of 2x CVA, hypoxic respiratory failure s/p tracheostomy, HTN, T2DM, Sacral ulcers, vertebral osteomyelitis, s/p PEG tube, chronic german catheterization and multiple DVT's coming in for altered mental status and tachycardia. Admitted to ICU s/p code blue and has since been downgraded to medicine for further management of sepsis 2/2 pneumonia complicated by potential gastrointestinal bleeding s/p 2 units prbc. Urine cultures came back non- significant. 09/04: Discussed with Maryuri at [facility] and was informed that patient is not able to be accepted back at this time given recent CODE BLUE at [facility]. Maryuri stated that her facility is able to give CPR, but is not able to give full potentially necessary care that a full CODE STATUS patient would need. Discussed with at bedside, Sherlyn, said discussion with Maryuri. stated that she would have her daughter call Maryuri back to confirm this is true and that [facility]. 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, sepsis due to this organism unlikely given clinical improvement on zosyn that has been narrowed down to cefepime (now changed to cefuroxime) Pustulent penile discharge noted since 09/02, improving Rx: -cefuroxime 500 mg po bid 08/31-09/12 -nystatin topical BID -Indwelling German catheter was replaced on 08/30 due to pus around the urethra -ID consulted, appreciate recs -Urine cultures came back this morning showing non-significant growth. 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 Conner assessed PEG tube, recommended cleaning with betadine multiple times per day, states it can be replaced with better fitting tube. -Planned to have PEG tube replaced for better fitting to prevent leakage/infection. -Nutrition following, recommendations as needed #Acute on chronic, hypoxic, respiratory failure, i/s/o bilateral pleural effusions #??Pericardial effusion #??Aspiration pneumonia Patient had rapid response on 08/29 for hypoxia in the 50s and bradycardia in the 30s Dx: -08/29 repeat CXR ordered, showed worsening haziness and bilateral pleural effusion -08/29 echocardiogram ordered, showed EF 50-55% with grade I diastolic dysfunction. Mild AV sclerosis with trace MR and TR. -ABG was ordered but could not be obtained due to patient being a hard stick -08/29 lactate, ammonia, and procalcitonin ordered, all negative Rx: -Bumex 1 mg IV daily (HELD) -Holding tube feeds #Sepsis, resolved #Ventilator-associated pneumonia, RESOLVED #Bilateral pleural effusions #Bacteremia, RESOLVED Tracheostomy mechanical ventilation dependent, Fever, Leukocytosis Hx of admissions for pneumonia, Pseudomonas + Differential diagnosis = ventilator-associated pneumonias vs community-acquired pneumonia vs other CT Chest 08/19 Bilateral Pleural Effusions s/p code blue --> ICU admission for vasopressor support and transfusion --> back to medicine for further management 08/19 09/07 Blood cultures Enterobacter cloacae, Proteus mirabilis Possible contamination, to follow up with lab 08/19 sputum trachea = Pseudomonas aeruginosa Rx: - Cefuroxime for remainder of 2 week course [08/31-09/12/25] #Hyperbilirubinemia, RESOLVED #Transaminitis, IMPROVING #Elevated alkaline phosphatase, IMPROVING #Lactic acidosis, RESOLVED #Leukocytosis, RESOLVED On 08/28 patient was noted to have new leukocytosis, lactic acidosis, hyperbilirubinemia, transaminitis, and elevated alkaline phosphatase concerning for bile duct obstruction in the setting of increasing abdominal distention and apparent pain Initially suspected that the cause of these new abnormal labs was adverse medication effect from cefepime Dx: ? Liver ultrasound ordered, showed multiple gallstones but no dilation of the common bile duct ? KUB ordered, showed significant stool burden ? MRCP deferred due to improvement in bilirubin and LFTs Rx: - Cefuroxime per ID as above, continue vancomycin ? Mineral oil enema ordered, may need to consider halting tube feeds if unsuccessful in alleviating patient's significant stool burden #Gastrointestinal bleeding, STABLE #Anemia, normocytic baseline Hgb appears to be 8/9 Noted hx of gastrointestinal bleed, unknown record of last BM w/ mandie blood Acute drop in Hgb 5.6 from 7.0 08/22; transfused 2U PRBC EGD was done on 25 August 2005 showed gastritis, duodenitis. Hemoglobin remains stable FOBT negative 08/24 Plan ? Protonix IV 40 mg daily ? Outpatient follow-up with the highway maintenance worker - Transfuse <Hgb 7 #Pericardial Effusion #Elevated troponin Pericardial Effusion 33mm found 08/19 CT Chest ECHO 08/19 EF ~ 40-50% Troponin 08/19 .128 -> 0.79 -> 0.464 most likely elevated due to heart strain in the setting of hypovolemic shock 2/2 sepsis; coupled with pericardial effusion w/out circulatory compromise/obstruction - per Cardiology: Nonoperative management - F/U O/P #Tracheostomy #Respiratory Failure Tracheostomy [place] [address] Langford 2/2 chronic respiratory failure Has not been able to wean off trach -Continue trach ventilator -Respiratory Therapy to follow -Duonebs q4h PRN for SoB #DVT Hx of Bilateral Femoral DVT's diagnosed 05/2025 Previous talks about IVC filter placement; per conversation with , Mr. Sanchez was transferred to [place] to get IVC filter but it was never done -To follow up again on IVC filter placement -DVT prophylaxis = Eliquis 2.5 PO BID(peg tube) #Hypotension Admission BP 99/64 Rapid response called on 08/30 for MAP 41 Rx: -1 L bolus of LR and 1 L LR maintenance @ 75 cc/hr -Bumex held -Midodrine 10 mg TID PRN -Holding home antihypertensives in the setting of hypovolemia #Metabolic acidosis, likely 2/2 GI losses (resolved) - S/p Bicarbonate ampoule x 1 Rx: - Continue to monitor daily labs #T2DM -ISS (correction scale 3) Degludec 10U QDay Lispro 2 U SC q6H Sugar Checks Q4Hr #Sacral Ulcer Wound(s) #Toe blistering Hx of sacral ulcer wounds -Wound nursing management #Hyperlipidemia - Atorvastatin 20mg #Allergies Hx of angioedema w/ NYLA, ARB-Angiotensin receptor antagonists Hx of hives, itching, rash - heat vs other -Avoid use for management of BP medication #Neuropathy Hx of bilateral neuropathy - Gabapentin 600mg BID #Constipation -Lactulose 10gm/15mL q24 -Milk of Magnesia 400mg/5mL - give if no BM for 2 days #Cerebral Vascular Accident #Stroke #Quadraplegia Stroke(s) in 2021, since then has had: Tracheostomy, PEG tube dependence Last documented event of stroke = 08/19 CT Head no evidence of hemorrhagic stroke -Continued management of above conditions with corresponding therapies/medications Hospital management: Disposition: Telemetry Lines: New left IJ central line placed 08/30 German: Indwelling German catheter replaced as of 08/30 Diet: PEG tube feeds DVT Prophylaxis: Eliquis CODE STATUS: Full Code Patient plan of care was discussed with the attending physician, Dr. Mauricio & senior resident Dr. Aleksander Méndez MD PGY-1 Attending Provider Attestation/Addendum I, Shae Mauricio, DO, attest that I was physically present for the herrera portions of the service and evaluated the patient with the resident and I reviewed and discussed the case with the resident and agree with the resident's findings and plans of care as documented above Patient seen and eval this a.m. He is resting comfortably. No vent changes overnight. He has been afebrile otherwise. Patient is noted to have scattered pressure wounds and blisters on his bilateral feet and pictures in chart were noted of his sacral region. There is some skin sloughing and unstageable pressure wounds. Patient is noted to have some pooling of purulent noted in groin area where German catheter is placed with significant edema of the scrotal region. Blood and urine cultures have been negative. He is currently on cefuroxime as per ID recommendations. Wound care to be continued with PEG tube site and dressing change. Pending final ID recommendations at this time. Anticipate discharge in the next 24 to 48 hours back to subacute facility.
[2025-09-04] MEDS: ACETAMINOPHEN 325 MG TABLET 650 MG PO (11:15)
--- NOTE | 2025-09-04 16:26 | PC.CC ---
Spoke with Dr. Mauricio; patient not medically cleared at this time. Pending ID consult and GI clearance. TENDER COORDINATOR spoke with [facility]; Keny was made aware that discharge is being rescinded at this time. Information was acknowledged, TENDER COORDINATOR to fax letter to [facility].
--- NOTE | 2025-09-04 16:33 | PD.IMPROG ---
Documentation for date of: 09/04/25 Subjective Subjective Interval history: Patient evaluated hemoglobin hematocrit 7.9 and 25.5 Exam Vital Signs Temp Pulse Resp BP Pulse Ox O2 Del Method O2 Flow Rate 97.6 F 77 20 122/73 94 L Mechanical Ventilation 35 09/04/25 12:00 09/04/25 13:53 09/04/25 12:00 09/04/25 13:53 09/04/25 12:00 09/04/25 12:00 09/04/25 12:00 FiO2 30 09/04/25 12:00 Objective Labs 09/04/25 07:48 09/04/25 05:25 Labs: Laboratory Results - last 24 hr 09/04/25 09/04/25 05:25 07:48 WBC 10.9 H RBC 3.10 L Hgb 7.9 L Hct 25.5 L MCV 82 MCH 25.5 MCHC 31.0 RDW Std Deviation 58.8 H Plt Count 340 D Neut % (Auto) 66 Lymph % (Auto) 18 [place] % (Auto) 6 Eos % (Auto) 8 Baso % (Auto) 1 Neut # (Auto) 7.2 Lymph # (Auto) 2.0 [place] # (Auto) 0.7 Eos # (Auto) 0.9 H Baso # (Auto) 0.1 Immature Gran # (Auto) 0.05 H Absolute Nucleated RBC 0.02 H Immature Gran % 1 H Nucleated RBC % 0 Sodium 143 Potassium 5.1 D Chloride 108 H Carbon Dioxide 23.0 Anion Gap 12 BUN 19 Creatinine 0.6 Estim Creat Clear Calc 145.0 eGFR > 60 BUN/Creatinine Ratio 32 H Glucose [address] Glu mg/dL 194 H Hemoglobin A1c 8.4 H Calculated Osmolality 290 Calcium 8.5 Corrected Calcium 9.4 Phosphorus 3.6 Magnesium 1.5 L Total Bilirubin 0.7 AST 55 H ALT 41 Alkaline Phosphatase 384 H D Total Protein 7.6 Albumin 2.9 L Globulin 4.7 H Albumin/Globulin Ratio 0.6 L Impressions Impression: PEG site improved Continue PEG site dressing changes ABG Interpretation ABG results: 08/19/25 08/19/25 08/30/25 20:08 22:17 07:40 ABG pH 7.23 L 7.38 D 7.35 ABG pCO2 47 36 D 34 ABG pO2 85 140 H D 83 ABG HCO3 20 21 19 L ABG O2 Saturation 95 100 H 98 ABG Base Excess -8 L -4 L -6 L Assessment & Plan A&P Narrative anemia, gi seeing abnormal imaging of chest if the effusion is significant then it should be drained, as he is a full code or address code status formally urine is likely colonized. if you want to target it. then change the german and repeat the urine. repeat cx noted but unclear if german changed changed to oral cefuroxime on wednesday for remainder of course. <2 more weeks ok will see again prn. I will be away wed and wednesday of this week so best I can do is remote and I do not do procedures Time Spent With Patient Time: Total time spent is greater than 50% in coordination of care (as documented) at patient's floor/unit and/or counseling patient:
[2025-09-05] VITALS (9 sets, daily range): BP systolic 109–148; BP diastolic 68–85; PULSE 82–101; RESP 19–24; TEMP 36.3–36.4; O2SAT 97–100; BMI 36.6
[2025-09-05 06:11] LABS: Basophils # (Auto) 0.1 Thou/mm3 (0.0-0.2); Basophils % (Auto) 1 % (0-2.5); Eosinophils # (Auto) 0.9 Thou/mm3 (0.0-0.5); Eosinophils % (Auto) 10 % (0-10); Hematocrit 28.9 % (41.0-53.0); Hemoglobin 9.0 g/dL (13.5-16.0); Immature Granulocytes Auto 0.06 Thou/mm3 (0.00-0.00); Lymphocytes # (Auto) 1.9 Thou/mm3 (1.0-4.8); Lymphocytes % (Auto) 21 % (10-50); Mean Corpuscular HGB Conc 31.1 g/dl (31.0-37.0); Mean Corpuscular Hemoglobin 25.5 pg (25.0-35.0); Mean Corpuscular Volume 82 fL (80-100); Monocytes # (Auto) 0.5 Thou/mm3 (0.0-0.8); Monocytes % (Auto) 6 % (0-12); Neutrophils # (Auto) 5.7 Thou/mm3 (1.8-7.7); Neutrophils % (Auto) 63 % (37-80); Nucleated Red Blood Cell # 0.02 Thou/mm3 (0.00-0.00); Nucleated Red Blood Cell % 0 /100 WBC (0); Platelet Count 317 Thou/mm3 (140-440); RDW Standard Deviation 59.3 fL (35.1-43.9); Red Blood Count 3.53 Miln/mm3 (4.50-5.90); White Blood Count 9.1 Thou/mm3 (3.8-10.6)
[2025-09-05] MEDS: guaiFENesin SYRUP 200 MG/10 ML UDC 100 MG GT ×2 (06:12→13:36)
[2025-09-05] MEDS: MIDODRINE 5 MG TABLET 10 MG GT ×2 (06:13→13:36)
[2025-09-05 06:35] LABS: Alanine Aminotransferase 27 U/L (10-49); Albumin, Serum 3.1 gm/dL (3.4-4.8); Albumin/Globulin Ratio 0.6 (1.2-2.2); Alkaline Phosphatase 387 U/L (46-116); Anion Gap 10 (7-16); Aspartate Amino Transferase 34 U/L (0-34); BUN/Creatinine Ratio 25 Ratio (12-20); Bilirubin,Total 0.9 mg/dL (0.3-1.2); Blood Urea Nitrogen 15 mg/dL (9-23); Calcium 9.5 mg/dL (8.3-10.6); Calcium (Corrected) 10.2 mg/dL (8.5-10.1); Carbon Dioxide 24.1 mMol/L (20.0-31.0); Chloride 105 mMol/L (98-107); Creatinine (Component) 0.6 mg/dL (0.6-1.3); Estimated Creatinine Clearance 145.0 mL/min (>60); Globulin 5.3 gm/dL (2.3-3.5); Glucose 122 mg/dL (74-106); Magnesium 2.0 mg/dL (1.6-2.6); Osmolality,Calculated 279 (275-295); Phosphorous 3.3 mg/dL (2.4-5.1); Potassium 4.7 mMol/L (3.4-5.1); Sodium 139 mMol/L (136-145); Total Protein 8.4 gm/dL (5.7-8.2); eGFR > 60 See Note
--- NOTE | 2025-09-05 08:43 | PC.SS ---
DRY STARCH OPERATOR contacted [facility] at the [facility] to confirm patient's return to facility. DRY STARCH OPERATOR spoke to staff Lisa; who transferred call to facility nurse. No response, DRY STARCH OPERATOR left message requesting return call.
[2025-09-05] MEDS: BALSAM PERU/CASTOR OIL (Venelex) 60 GM TUBE TOP (09:04)
[2025-09-05] MEDS: SIMETHICONE 80 MG CHEW GT (09:04)
[2025-09-05] MEDS: NYSTATIN CR 30 GM TUBE TOP (09:04)
[2025-09-05] MEDS: APIXABAN 2.5 MG TABLET PO (09:04)
[2025-09-05] MEDS: MULTIVITAMINS TABLET 1 TAB NG (09:04)
[2025-09-05] MEDS: ZINC SULFATE 220 MG CAPSULE NG (09:04)
[2025-09-05] MEDS: INSULIN DEGLUDEC 5 UNIT/0.05 ML (PER 5 UNITS) 15 UNIT SC (09:12)
--- NOTE | 2025-09-05 10:09 | ESDS_ITS ---
<Statement entered by Shae Mauricio DO - 09/05/25 16:45> I, Shae Mauricio DO, attest that I was physically present for the herrera portions of the service and evaluated the patient with the resident and I reviewed and discussed the case with the resident and agree with the resident's findings and plans of care as documented above Planned Discharge Date 09/05/25 DS: Providers Provider Date of admission: 08/19/25 14:35 Primary care physician: Alexa Heredia MD ([facility]) Admitting Provider: Brian Man MD Attending Provider on Admission: Shae Mauricio DO Consults: 08/19/25 14:34 Consult to Cardiology Routine Comment: Consulting Provider: Jamie Tarango 08/19/25 16:37 Referral Registered Dietitian Routine Comment: 08/19/25 16:44 Referral Nutritional Services Stat Comment: PEG tube feeds recommendations thank you 08/19/25 16:47 Referral Respiratory Therapy Stat Comment: chronic trach w/ unkown baseline settings 08/19/25 23:19 Referral Wound Care Routine Comment: 08/20/25 03:17 Referral Registered Dietitian Routine Comment: 08/24/25 10:15 Consult to Gastroenterology Stat Comment: Consulting Provider: Simon Conner 09/03/25 09:25 Consult to Infectious Diseases Stat Comment: Consulting Provider: Porter Castillo Attending Provider on DC: Shae Mauricio DO Discharging Provider: Shae Mauricio DO DS: Diagnosis Problem List Completed Was Problem List Reviewed/Reconciled?: Yes Hospital Course Hospital Course Hospital course: Mr. Kwadwo Sanchez is a 80 year old male w/ an extensive past medical history cons isting of 2x CVA, hypoxic respiratory failure s/p tracheostomy, HTN, T2DM, Sacral ulcers, vertebral osteomyelitis, s/p PEG tube, chronic german catheterization and multiple DVT's who presented to the ED at [facility] from [facility] for altered mental status and tachycardia, admitted for pneumonia. His most recent visit to [facility] for ventillator-associated pneumonia was in 05/2025, for which cultures grew Pseudomonas. Vitals on admission was significant for temperature of 102.5 and a heart rate of 112. Initial laboratory workup is also significant for leukocytosis and hyponatremia. Mr. Sanchez presented with GCS 3 w/ tracheostomy place, unable to respond to verbal cues and stimulation, and substernal chest rub does not affect his mentation or alertness. Patient had stable vital signs with ventilation through the tracheostomy. Motor response is minimal, unable to fully elicit a response to pain on substernal chest rub. His confirms his status as full code. Initial chest xray demonstrated bilateral pulmonary infiltrates, as confirmed on CT Chest along with bilateral pleural effusions. Head CT is negative for any evidence of hemorrhage or mass effect. Zosyn started for empiric coverage given the history of recent pseudomonas pneumonia, ET tube cultures grew pseudomonas and blood cultures grew enterobacter cloacae, proteus mirabilis from initial blood cultures. Patient found to have pericardial effusion and elevated troponin which was likely due to heart strain in the setting of hypoolemia from sepsis. The first night of admission patient had a rapid response called for bradycardia and was found to have no pulse with pea on telemetry. Herson blue was called, cpr initiated with rosc and was briefly in the ICU with apparent good recovery. Patient had an acute GI bleed with hemoglobin drop to 5.6 from 7.0, was transfused two units prbc and was stable since then. Patient had UTI with urine culture growing burkholderia on admission which appeared to be colonized. Patient's german catheter was replaced due to pus around urethra a week and a half later, ID re-consulted, had urine cultures redrawn which showed non- significant growth, recommended to have thorough daily groin cleaning. Patient had elevated bilirubin and transaminitis which was suspected due to cefepime, which was changed to cefuroxime and with improvement in the bilirubin and transaminase levels. Patient's sepsis due to ventilator associated pneumonia resolved, patient will need to continue outpatient antibiotics. Patient is back to baseline, being discharged in stable condition. Patient's CODE STATUS was discussed with family during this hospitalization, patient's family continues the patient to be full code. Discharge Instructions Make sure to give thorough daily groin cleaning Apply nystatin cream to affected areas 4x per day Continue taking antibiotic Cefuroxime through Sep 12 Follow up with pcp within one week from discharge Use medications as prescribed In case of worsening of your symptoms, please return to the ED as soon as possible If any signs or symptoms of bleeding occur, return to ED or call emergency services [place] #Acute on chronic, hypoxic, respiratory failure #bilateral pleural effusions #Pericardial effusion #Aspiration pneumonia #Sepsis #Ventilator-associated pneumonia #Bilateral pleural effusions #Hyperbilirubinemia #Transaminitis #Elevated alkaline phosphatase #Lactic acidosis #Leukocytosis #Bacteremia #Gastrointestinal bleeding #Anemia, normocytic #Urinary Tract Infection #Chronic German Catheter Use #Pericardial Effusion #Elevated troponin #Tracheostomy #Respiratory Failure #Nutrition #Hypoglycemia #PEG-tube Dependence #Hx of DVT #Hypotension #Metabolic acidosis #T2DM #Sacral Ulcer Wound(s) #Toe Blisters #Hyperlipidemia #hx of Allergies #Neuropathy #Constipation #Cerebral Vascular Accident #Stroke #Quadraplegia Patient plan of care was discussed with the attending physician, Dr. Mauricio & senior resident Dr. Aleksander Méndez MD PGY-1 Time Spent with Patient Time attestation: Total time spent providing and/or coordinating discharge services: Time spent: Greater than 30 minutes Exam Vital Signs Temp Pulse Resp BP Pulse Ox O2 Del Method O2 Flow Rate 97.6 F 85 19 146/84 H 99 Mechanical Ventilation 35 09/05/25 08:00 09/05/25 08:00 09/05/25 08:00 09/05/25 08:00 09/05/25 08:00 09/05/25 08:00 09/05/25 08:00 FiO2 30 09/05/25 08:00 Narrative Exam GEN: Eyes moving spontaneously, does not appear to track. Does not seem to be in distress. On mechanical ventilation VC. HEENT: NC/AC, PERRLA, oral mucosa moist, neck supple CVS: RRR, S1-S2 present, no murmurs appreciated RESP: Good air entry bilaterally, transmitted sound from the tracheostomy was heard in both lungs. No signs of respiratory distress. GI: More tense and distended than yesterday, seemingly tender, NBS MSK: Unable to move any extremities, spastic deformity of the right leg; posterior wounds (refer to chart at nursing station); L big toe blister SKIN: Skin exfoliation of the right leg. Trace edema. HEALTH AND SAFETY ADVISOR: Unable to assess cranial nerves or sensory due to patient's chronic condition. Discharge Plan Plan Patient Disposition: Xfer Skilled Nsg Fac (SNF) Disposition Comment: [facility] Patient condition on transfer: Benefits outweigh risks Care Plan Goals: Make sure to give thorough daily groin cleaning Apply nystatin cream to affected areas 4x per day Continue taking antibiotic Cefuroxime through Sep 12 Follow up with pcp within one week from discharge Use medications as prescribed In case of worsening of your symptoms, please return to the ED as soon as possible If any signs or symptoms of bleeding occur, return to ED or call emergency services [place] Prescriptions/Referrals Prescriptions/Med Rec: New nystatin 100,000 unit/gram Cream 1 applic top QID 5 Days Qty: 15 0RF cefuroxime axetil 500 mg tablet 500 mg PO BID 8 Days Qty: 16 0RF insulin degludec 100 unit/mL (3 mL) insulin pen 15 unit subcut QDAY Qty: 15 0RF insulin lispro 100 unit/mL Solution 1 sliding scale dose subcut Q6HR Qty: 10 0RF Continued multivitamin with minerals Liquid 15 ml feeding tube QDAY ascorbic acid (vitamin C) 500 mg Tablet 500 mg feeding tube BID ezetimibe 10 mg Tablet 10 mg feeding tube QPM simethicone 80 mg Tablet,Chewable 80 mg feeding tube BID lactulose 10 gram/15 mL Solution 20 g feeding tube QDAY bisacodyl 10 mg Suppository 10 mg VA EVERYOTHERDAY PRN (Reason: bowel ) gabapentin 300 mg Capsule 600 mg feeding tube BID atorvastatin 20 mg tablet 20 mg feeding tube QPM sennosides [senna] 8.8 mg/5 mL syrup 5 ml feeding tube BID cetirizine 10 mg Tablet 10 mg feeding tube PRN PRN (Reason: allergy symptoms) Qty: 30 0RF midodrine 5 mg Tablet 10 mg PO TID PRN (Reason: SBP <100) Qty: 30 0RF Eliquis 2.5 mg tablet 2.5 mg PO BID diphenhydramine HCl [Allergy Relief(diphenhydramin)] 25 mg tablet 25 mg feeding tube Q4H oxycodone 5 mg tablet 5 mg feeding tube Q6H PRN (Reason: pain) Rx Instructions: PAIN 7-10 Referrals: Yan([facility])Alexa MD [Primary Care Provider, Internal Medicine] Patient/Caregiver Discharge Instructions Discharge Activity: resume usual activities Education Materials: Sepsis, ED FUO Adult Print Language: Chinese Stand Alone Forms: Maria Isabel Award Info., Patient Portal Info Letter Discharge Order Discharge Orders: Discharge (Routine); Ordered 09/05/25 Ordered By: Mark Anthony Méndez Quality Discharge Quality Measures VTE prophylaxis
--- NOTE | 2025-09-05 10:53 | PC.SS ---
ORGAN FIXER confirmed with [facility] staff, Paula; that patient can return to facility if patient does not require constant C02 monitoring. ORGAN FIXER confirmed with resident team that patient does not require constant CO2 monitoring. ORGAN FIXER confirmed with [facility] staff that Code Status is not a barrier to the patient's return. [facility] staff confirmed discussion between DON and patient's family regarding Code Status. Patient will require RT rider for transport. Transport pending.
--- NOTE | 2025-09-05 11:07 | PC.SS ---
RIVET TESTER notified RT that rider will be needed to accompany patient for transport. Transport scheduled for 02:00 pm. RT to have staff available for transport.
--- NOTE | 2025-09-05 11:08 | PC.SS ---
SHEAR OPERATOR HELPER notified [facility]; that transport has been scheduled for 02:00 pm today for patient's return to facility. SHEAR OPERATOR HELPER updated bedside nurse.
--- NOTE | 2025-09-05 11:11 | PC.SS ---
Addendum entered and electronically signed by DANNY Alvarado 09/05/25 11:15: CARTRIDGE GAUGER fielded phone call from patient's spouse providing update on patient's transport to facility at 02:00 pm today. Original Note: CARTRIDGE GAUGER attempted phone contact with patient's spouse to provide update on transport for patient at 02:00 pm today. No response. Unable to leave message with voicemail.
[2025-09-05] MEDS: INSULIN LISPRO (AdmeLOG) 1 UNIT/0.01 ML UNIT 2 UNIT SC (11:59)
--- NOTE | 2025-09-05 14:19 | ESPR_ITS ---
Documentation for date of: 09/05/25 Subjective Subjective Interval history: Patient evaluated Case discussed with internal medicine team The PEG tube does not need to get changed Patient can be discharged back to the rehab facility Exam Vital Signs Temp Pulse Resp BP Pulse Ox O2 Del Method O2 Flow Rate 97.6 F 97 20 148/85 H 100 Mechanical Ventilation 35 09/05/25 14:00 09/05/25 14:00 09/05/25 14:00 09/05/25 14:00 09/05/25 14:00 09/05/25 14:00 09/05/25 14:00 FiO2 30 09/05/25 14:00 Objective Labs 09/05/25 05:35 09/05/25 05:35 Labs: Laboratory Results - last 24 hr 09/05/25 05:35 WBC 9.1 RBC 3.53 L Hgb 9.0 L Hct 28.9 L MCV 82 MCH 25.5 MCHC 31.1 RDW Std Deviation 59.3 H Plt Count 317 Neut % (Auto) 63 Lymph % (Auto) 21 [place] % (Auto) 6 Eos % (Auto) 10 Baso % (Auto) 1 Neut # (Auto) 5.7 Lymph # (Auto) 1.9 [place] # (Auto) 0.5 Eos # (Auto) 0.9 H Baso # (Auto) 0.1 Immature Gran # (Auto) 0.06 H Absolute Nucleated RBC 0.02 H Immature Gran % 1 H Nucleated RBC % 0 Sodium 139 Potassium 4.7 Chloride 105 Carbon Dioxide 24.1 Anion Gap 10 BUN 15 Creatinine 0.6 Estim Creat Clear Calc 145.0 eGFR > 60 BUN/Creatinine Ratio 25 H Glucose 122 H Calculated Osmolality 279 Calcium 9.5 Corrected Calcium 10.2 H Phosphorus 3.3 Magnesium 2.0 Total Bilirubin 0.9 AST 34 ALT 27 Alkaline Phosphatase 387 H Total Protein 8.4 H Albumin 3.1 L Globulin 5.3 H Albumin/Globulin Ratio 0.6 L Impressions Impression: PEG tube issues resolved No need for change of a PEG tube Okay to discharge patient ABG Interpretation ABG results: 08/19/25 08/19/25 08/30/25 20:08 22:17 07:40 ABG pH 7.23 L 7.38 D 7.35 ABG pCO2 47 36 D 34 ABG pO2 85 140 H D 83 ABG HCO3 20 21 19 L ABG O2 Saturation 95 100 H 98 ABG Base Excess -8 L -4 L -6 L Assessment & Plan A&P Narrative anemia, gi seeing abnormal imaging of chest if the effusion is significant then it should be drained, as he is a full code or address code status formally urine is likely colonized. if you want to target it. then change the german and repeat the urine. repeat cx noted but unclear if german changed changed to oral cefuroxime on wednesday for remainder of course. <2 more weeks ok will see again prn. I will be away wed and wednesday of this week so best I can do is remote and I do not do procedures Time Spent With Patient Time: Total time spent is greater than 50% in coordination of care (as documented) at patient's floor/unit and/or counseling patient:
[2025-09-07 13:51] LABS: Cardiolipin Ab (IgA) <2.0 APL-U/mL; Cardiolipin Ab (IgG) <2.0 GPL-U/mL
[2025-09-10 07:28] LABS: B2-Glycoprotein I Ab IgA <2.0 U/mL; B2-Glycoprotein I Ab IgG <2.0 U/mL; B2-Glycoprotein I Ab IgM 3.4 U/mL; Cardiolipin Ab (IgM) 2.7 MPL-U/mL; Homocysteine* 13.9 umol/L (< OR = 15.2); Phos.Serine Ab IgG <9 U (< OR = 30); Phos.Serine Ab IgM 14 U (< OR = 30)
[2025-09-19 08:48] LABS: Antiphospholipid Ab Interp DUPLICATE ORDER; Cardiolipin Ab IgA DUPLICATE ORDER; Cardiolipin Ab IgG DUPLICATE ORDER; Cardiolipin Ab IgM DUPLICATE ORDER
== END 2025-09-05 14:08 | disposition skilled nursing facility (03) | DRG 871 ==
LOC: SERX 10:17 → SERHOLD 15:13 → S2NX 08-20 06:13 → S2SX 08-20 06:13 → S2NX 08-27 19:14
PROVIDERS: Internal Medicine Infectious Disease; Specialist; Student in an Organized Health Care Education/Training Program; Emergency Provider Emergency Medicine; PCP Hospitalist; Visit Provider Internal Medicine
PROC: (CPT 43239; principal; 2025-08-25 18:15)
DX: A41.9 Sepsis, unspecified organism (principal); G82.50 Quadriplegia, unspecified; R65.21 Severe sepsis with septic shock; J18.9 Pneumonia, unspecified organism; I46.9 Cardiac arrest, cause unspecified; J96.21 Acute and chronic respiratory failure with hypoxia; I31.39 Other pericardial effusion (noninflammatory); N39.0 Urinary tract infection, site not specified; Z16.24 Resistance to multiple antibiotics; N17.9 Acute kidney failure, unspecified; K94.22 Gastrostomy infection; D62 Acute posthemorrhagic anemia; J95.851 Ventilator associated pneumonia; E87.1 Hypo-osmolality and hyponatremia; E87.4 Mixed disorder of acid-base balance; Z86.73 Personal history of transient ischemic attack (TIA), and cerebral infarction without residual deficits; Z86.718 Personal history of other venous thrombosis and embolism; E11.65 Type 2 diabetes mellitus with hyperglycemia; E11.40 Type 2 diabetes mellitus with diabetic neuropathy, unspecified; K59.00 Constipation, unspecified; E78.00 Pure hypercholesterolemia, unspecified; Z96.659 Presence of unspecified artificial knee joint; Z79.899 Other long term (current) drug therapy; Z79.01 Long term (current) use of anticoagulants; Z74.01 Bed confinement status; Z79.4 Long term (current) use of insulin; Z87.11 Personal history of peptic ulcer disease; Z87.440 Personal history of urinary (tract) infections; L89.159 Pressure ulcer of sacral region, unspecified stage; N18.9 Chronic kidney disease, unspecified; I12.9 Hypertensive chronic kidney disease with stage 1 through stage 4 chronic kidney disease, or unspecified chronic kidney disease; E11.22 Type 2 diabetes mellitus with diabetic chronic kidney disease; E11.649 Type 2 diabetes mellitus with hypoglycemia without coma; K31.89 Other diseases of stomach and duodenum; K29.70 Gastritis, unspecified, without bleeding; S90.821A Blister (nonthermal), right foot, initial encounter; Y84.8 Other medical procedures as the cause of abnormal reaction of the patient, or of later complication, without mention of misadventure at the time of the procedure; S90.822A Blister (nonthermal), left foot, initial encounter; Y95 Nosocomial condition; E86.1 Hypovolemia
CPT/HCPCS: 36415; 36600; 70450; 71045; 74018; 74176; 76705; 76770; 80048; 80053; 80069; 80202; 81001; 82010; 82140; 82150; 82803; 82945; 83036; 83090; 83516; 83605; 83615; 83690; 83735; 83880; 84100; 84145; 84157; 84443; 84484; 85014; 85018; 85025; 85300; 85301; 85302; 85305; 85597; 85598; 85610; 85613; 85670; 85730; 86146; 86147; 86148; 86850; 86900; 86901; 86923; 87040; 87070; 87075; 87077; 87081; 87086; 87186; 87205; 87502; 87635; 89051; 93005; 93225; 93306; 93925; 94002; 94003; 94640; 94667; 96361; 96365; 99285; A4649; J0131; J0457; J0692; J0696; J1200; J1815; J2250; J2270; J2470; J2543; J2598; J3010; J3373; J3374; J3375; J3475; J3490; J7030; J7050; J7120; J7999; P9016; P9047; A9270; J1836